=== PATIENT | female | born 1955 | race Caucasian/White ===

== ENCOUNTER → 2018-06-08 07:04 | Outpatient (CLI) | payer OTHER, SELFPAY | DX: Z00.00 Encounter for general adult medical examination without abnormal findings (principal) ==

== ENCOUNTER → 2018-06-19 08:52 | Outpatient (CLI) | payer OTHER, SELFPAY ==
[2018-06-19 10:36] LABS: Absolute Lymphocyte Count 1.66 X10^3/ul (0.83-4.51); Absolute Neutrophil Count 3.1 X10^3/uL (2.0-7.7); Basophil# 0.01 X10^3/uL; Basophil% 0.2 % (0-1); Eosinophil# 0.05 X10^3/uL; Eosinophils% 0.9 % (0-5); Hematocrit 42.9 % (37-47); Lymphocyte # 1.66 X10^3/ul (4.0); Mean Corp Hgb Conc 32.6 g/gl (32-36); Mean Corpuscular Hgb 32.9 pg (27.0-32.0); Mean Corpuscular Volume 100.7 fL (81-99); Mean Platelet Vol. 11.6 fl (6.2-12.0); Monocyte# 0.53 X10^3/uL; Monocyte% 9.9 % (0-10); Neutrophil % 57.8 % (47-70); Platelet Count 221 K/mm3 (150-450); RBC Distribution Width CV 12.3 % (11.6-14.6); RBC Distribution Width SD 45.1 fl (35.1-43.9); Red Blood Count 4.26 M/mm3 (4.2-5.4); White Blood Count 5.4 K/mm3 (4.4-11.0)
[2018-06-19 10:38] LABS: POSITIVE COUNT NO; POSITIVE DIFFERENTIAL NO; POSITIVE MORPHOLOGY NO
[2018-06-19 10:55] LABS: Hemoglobin A1c 5.2 % (4.2-6.3)
[2018-06-19 11:09] LABS: Vitamin D,25 Hydroxy 34.6 ng/mL (29.95-100.01)
[2018-06-19 11:13] LABS: ALB/GLOB Ratio 1.2 RATIO (0.9-2.4); AST(SGOT) 20 U/L (15-37); Alanine Aminotransfer ALT/SGPT 32 U/L (13-56); Albumin, Serum 3.6 g/dL (3.2-5.0); Alkaline Phosphatase 76 U/L (45-117); Anion Gap 8 (5-15); BUN 17 mg/dL (7-18); BUN/Creat Ratio 29.9 RATIO (10-20); Calcium,Total 9.3 mg/dL (8.5-10.1); Chloride 108 mmol/L (98-107); Creatinine, Serum 0.57 mg/dL (0.55-1.02); EST Glomerular Filtration Rate 114 mL/min (>60); Est Glom Filt Rate - Afr Amer 137 mL/min (>60); Free T3 3.9 pg/mL (2.18-3.98); Globulin 3.1 g/dL (2.2-4.2); Glucose 93 mg/dL (74-106); Phosphorus 3.1 mg/dL (2.5-4.9); Potassium 4.2 mmol/L (3.5-5.1); Protein, Total 6.7 g/dL (6.4-8.2); Sodium Level 142 mmol/L (136-145); T4 Free Direct 0.86 ng/dL (0.76-1.46); Thyroid Stim Hormone (TSH) 0.25 uIU/mL (0.358-3.74)
[2018-06-21 15:47] LABS: Vitamin D 1,25-Dihydroxy 52.4 pg/mL (19.9-79.3)
[2018-06-25 14:29] LABS: T3 Reverse 16.2 ng/dL (9.2-24.1)
== END ==
DX: Q07.9 Congenital malformation of nervous system, unspecified (principal); E88.9 Metabolic disorder, unspecified; E03.9 Hypothyroidism, unspecified; E55.9 Vitamin D deficiency, unspecified; R73.09 Other abnormal glucose; T56.94XA Toxic effect of unspecified metal, undetermined, initial encounter
CPT/HCPCS: 36415; 80053; 82306; 82652; 83036; 83735; 84100; 84439; 84443; 84481; 84482; 85025

== ENCOUNTER → 2018-08-15 08:25 | Outpatient (CLI) | payer OTHER, SELFPAY ==
[2018-08-15 08:51] VITALS: BP 122/75; PULSE 68; RESP 16; TEMP 36.4; O2SAT 96; BMI 27.3
--- OUTSIDE RECORDS SUMMARY | 2018-10-01 01:25 | XMS RPT_ITS ---
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 [R53.83] INVALID FOR* Vitamin D deficiency [E55.9] INVALID FOR* Rectal itching [L29.0] INVALID FOR* Sleep disturbance [G47.9] INVALID FOR* Other instructions from your clinician: LIFESTYLE PRESCRIPTION Functional Nutrition: Per CFM RD Sleep: No chg Exercise Prescription: no chg Stress Management: HEART MATH: Heart Rate Variability BioFeedback Tool 1. Get one of the heart math books off [employer] that fits your 'go to emotion' - Heart Math Anger, Anxiety, Stress, Depression, or PTSD. GET THE BOOK! Not the other stuff(colleen) Read beginning and understand why you are doing heart math and jump to the exercises. Then you can read the in between. --->5 minutes three times a day is more effective than 15 minutes in one sitting. Consider scheduling with our Health Hand Candy Cutter for a phone or virtual visit for accountability, goal setting and help with behavior change lead the next 6-8 weeks to be successful with your goals. [phone]. Consider purchasing the DVD set and going through the Dynamic Neural Retraining System (Neuroplasticity-based Therapy) at [facility]. DVDs $270s Book $25 or on [employer] $18, No orders of the defined types were placed in this encounter. Additional Recommendations Today's plan - Trial of Progesterone, Estradiol (get mammogram) Has IV port for ABX (feels it is helping slurring voice and lifting her) Future:Must have binders gordy/sacch before BEGS/nystatin Must meditate twice A day Next visit - address mold? gordy then do Argentyn ???Beyond Balance Tox-ease ??add ?glutamine Future? Start BEGS and nystatin nasal spray, 23ANDme, ?BHRT ? Treatments: (binders-->argentyn nasal spray 1 spray BID-->BEGS (nasal biofilm) ---->antifungal nasal spray (nystatin, keto, or AMB)-->NAC(250-500mg oral QD or BID)-->oral antifungal(xxxguiee243,000 u orally, 1-4x a day, diflucan 100mg once every OTHER week)?-->?oral biofilm buster Instructions AND Resources Return 10 weeks with me (last week Oct and 1st week November) Follow- up: Call frequently for cancelations to come in the week I have recommended. Take the appointment given at the desk in case this approach does not work for you. Prescriptions ordered this encounter Disp Refills Start End BENZONATATE 100 MG CAPSULE 21 c* 0 09/04/2018 Route: ORAL Sig: Take 1 capsule by mouth three times daily as needed for Cough. ALBUTEROL SULFATE HFA 90 MCG/ACTUATI* 1 In* 0 09/04/2018 Route: INHALATION Sig: Inhale 2 Puffs as instructed every 4 hours as needed. Encounter Status:Closed by SARA CHIN on 09/04/18 INTERVENTIONAL RADIOLOGY Observed: 08/26/2018 Status: F Source: [facility] PROGRESS NOTE 12:08 PM [facility] RE[facility] PT return for 10 day post medport placement check Pt ambulate to room w/ walker, slow and steady- present Right chest medport- band aid in place, per pt home care nurse out to house this morning to de access port, placed band aid pt has 1 steri and undissolved sutures to remove. Steri and suture removed w/out difficulty. pt does have ecchymosis and mild skin excoriation. denies any pain to site. Site left open to air per pt request. Stable, ambulate back off unit w/ walker and CBC W/DIFF, AUTOMATED Collected: 08/19/2018 Status: F Source: [place] 10:15 AM [facility] REPOSITORY TYPE CODE TESTS RESULT OUT OF RANGE REFERENCE UNITS LAB L100.1000 4.4-11.0 K/mm3 Normal WBC 4.9 LAB L100.1200 4.2-5.4 M/mm3 Low RBC 4.19 LAB L100.1300 12.0-15.0 g/dl Normal HGB 13.3 LAB L100.1400 37-47 % Normal HCT 41.3 LAB L100.1500 81-99 fL Normal MCV 98.6 LAB L100.1600 27.0-32.0 pg Normal MCH 31.7 LAB L100.1700 32-36 g/gl Normal MCHC 32.2 LAB L100.1810 11.6-14.6 % Normal RDW CV 13.0 LAB L100.1820 35.1-43.9 fl High RDW SD 47.2 LAB L100.1900 150-450 K/mm3 Normal PLT 224 LAB L100.2000 6.2-12.0 fl Normal MPV 11.3 LAB L100.2100 47-70 % Normal NEUT% 56.2 LAB L100.2200 19-41 % Normal LY% 32.9 LAB L100.2300 0-10 % Normal MONO% 7.3 LAB L100.2400 0-5 % Normal EO% 3.2 LAB L100.2500 0-1 % Normal BASO% 0.4 LAB L100.2550 0.0-0.9 % Normal IM GRAN % 0.000 Result Comment: IG% - Immature Granulocytes (promyelocytes, myelocytes and metamyelocytes) > 1% indicates that a LEFT SHIFT is Present. LAB L100.2620 2.0-7.7 X10 3/uL Normal Absolute Neut 2.8 LAB L100.2720 0.83-4.51 X10 3/ul Normal Absolute Lymph 1.62 Performed By: #### L100.0100 #### [facility] [address] [place], [address] COMPREHENSIVE METABOLIC Collected: 08/19/2018 Status: F Source: [facility] 10:15 AM [facility] REPOSITORY TYPE CODE TESTS RESULT OUT OF RANGE REFERENCE UNITS LAB L501.0100 74-106 mg/dL High GLU 111 Result Comment: Fasting Glucose result from 100 to 125 mg/dL suggests IMPAIRED HOMEOSTASIS per A.D.A. criteria. Please note revised GLUCOSE reference range effective 2017. LAB L501.1000 7-18 mg/dL Normal BUN 14 LAB L501.1100 0.55-1.02 mg/dL Low CREAT,SERUM 0.46 Result Comment: The validity of the calculated GFR AND GFRAA in patients over 70 years has not been determined. Clinical correlation is essential. LAB L501.1110 >60 mL/min Normal EST GFR 147 Result Comment: Non- GFR Calc LAB L501.1115 >60 mL/min Normal EST GFR - AA 178 Result Comment: GFR Calc LAB L501.1300 10-20 RATIO High BUN/CRE 30.8 LAB L501.1500 6.4-8.2 g/dL T Normal PROT 6.7 LAB L501.1800 3.2-5.0 g/dL Normal ALB 3.6 LAB L501.1950 2.2-4.2 g/dL Normal GLOB 3.1 LAB L501.2000 0.9-2.4 RATIO Normal A/G 1.2 LAB L501.2200 8.5-10.1 mg/dL CA Normal 9.2 LAB L501.4100 15-37 U/L Normal AST 26 LAB L501.4305 45-117 U/L Normal ALK P 79 LAB L501.4405 13-56 U/L Normal ALT 43 LAB L501.4600 0.20-1.00 mg/dL T Normal BILI 0.60 LAB L501.5300 136-145 mmol/L NA Normal 144 LAB L501.5600 3.5-5.1 mmol/L K Normal 3.7 LAB L501.5900 98-107 mmol/L High CL 109 LAB L501.6100 21.0-32.0 mmol/L Normal CO2 27.0 LAB L501.6200 5-15 Normal GAP 8 Performed By: #### L500.4050 #### [facility] [address] [place], [address] IR TUNNELED CENTRAL Observed: 08/15/2018 Status: F Source: [facility] 9:05 AM [facility] UNDER ULTRASOUND AND FLUOROSCOPIC GUIDANCE CLINICAL INDICATION: Lyme disease. PROCEDURE: The procedure, risk and benefits were described to the patient at length prior to informed consent being obtained. Screening for conscious sedation did not demonstrate contraindication. Pulse oximetry, vital signs and EKG monitoring was utilized and monitored throughout the procedure by myself and the radiology staff nurse. Dr. Ryan Wick administered conscious sedation in the form of 50 mcg of fentanyl and 1 mg of Versed was given during the procedure as mild conscious sedation. Preprocedure antibiotic was given After all patient's questions were answered, the patient was placed in the supine position on the angiographic table. The right side of the neck and upper chest was marked, prepped and draped the usual sterile fashion. Maximal sterile barrier technique was utilized including cap, mask, sterile gown, gloves and full body draped. One percent lidocaine without epinephrine was instilled at the superficial and deep tissue layers for comfort. Ultrasound evaluation of the RIGHT internal jugular vein was performed and shows patent and normal right internal jugular vein. Utilizing ultrasound guidance with sterile probe cover and sterile gel, access into the right internal jugular vein was carried out. Safe access was gained with a micropuncture needle and maintained with a cope guidewire. After confirmation of the position of the needle with ultrasound within the central circulation, as shown in the static ultrasound image obtained during the procedure, a [place] guidewire was advanced into the central circulatory system without difficulty. The needle was exchanged by a 5-Faroese dilator. At this point, additional local anesthesia was injected in the anterior right upper chest. A skin incision was made at the level of the second intercostal mid-clavicular line and utilizing sharp, blunt dissection and electrocautery, a pocket was created in the subcutaneous tissues anterior to the pectoralis fascia. Hemostasis was maintained during the entire procedure with electrocautery. Utilizing a metal tunneler, a 8.5 Faroese catheter was tunneled and advanced from the anterior chest pocket to the venous access previously made. The port was placed into the pocket and the skin was sutured by planes with absorbable suture material. The dilator and the [place] guidewire were removed and exchanged for a peel-away sheath and J-wire. After progressive dilatation of the access a 10-Faroese dilator, a valved peel-away sheath was then advanced over the guidewire. After removing the guide wire and the dilator, the tunneled catheter was advanced centrally with the tip at the superior vena cava atrial junction. The tip of the catheter was placed in the proximal superior vena cava as seen in the static fluoroscopic view obtained at the end of the procedure. The skin incisions were upheld with Steri-Strips and sterilely covered. At the end of the procedure, the port was accessed and easily aspirated and flushed. The MediPort was then loaded with with heparin solution. The patient tolerated the procedure very well without any immediate complications and was subsequently taken to the recovery area IMPRESSION: Normal right internal jugular on ultrasound. Successful ultrasound and fluoroscopic guided placement of a 8 Faroese X 18 cm low profile power ProFuse port and tunnel catheter. PROCEDURES PERFORMED: Conscious sedation 30 minutes Ultrasound evaluation of right internal jugular vein. Ultrasound guided venous access. Tunneling and placement of Mediport and catheter under fluoroscopy. Technologist: TALAT Dictated By: GABE GERARDO PA-C Signed By: GABE GERARDO PA-C Signed Out: 08/15/18 09:03:36 CONSULT REPORT Observed: 08/14/2018 Status: F Source: [facility] 9:10 AM [facility] Patient: SANAM HUDSON Age: 62 years Sex: Female : 1955 Associated Diagnoses: None Author: GABE GERARDO PA-C Basic Information Referral source: LILLY LIVINGSTON MD, Not self. History limitation: None. Lyme disease Chief Complaint Sanam is a nice 62-year-old female who is been referred today for insertion of MediPort to assist in her ongoing treatment for Lyme disease. Sanam has been on oral medications under the direction of Dr Yves Livingston but as of late, has noted significant gastritis. History of Present Illness Synopsis: As mentioned above Location: As mentioned above Duration: Ongoing problem Quality: Not applicable Severity: 0/10 pain today Mitigating and exacerbating factors: Suspected tick bite Review of Systems Constitutional: Negative except as documented in history of present illness. Eye: Negative except as documented in history of present illness. Ear/Nose/Mouth/Throat: Negative except as documented in history of present illness. Respiratory: Negative except as documented in history of present illness. Cardiovascular: Negative except as documented in history of present illness. Gastrointestinal: Negative except as documented in history of present illness. Genitourinary: Negative except as documented in history of present illness. Hematology/Lymphatics: Negative except as documented in history of present illness. Endocrine: Negative except as documented in history of present illness. Immunologic: Negative except as documented in history of present illness. Musculoskeletal: Negative except as documented in history of present illness. Integumentary: Negative except as documented in history of present illness. Neurologic: Negative except as documented in history of present illness. Health Status Allergies: Allergies (1) Active Reaction TheraTears Contact Lens redness ophthalmic solution Histories Past Medical History: Lyme disease, hypothyroidism Past Surgical History: Complete thyroidectomy, x1, cholecystectomy, bladder sling Anesthesia History: No anesthetic problems reported Family History: Reviewed but is noncontributory Social History: Denies smoking or drinking Physical Examination VS/Measurements Vital Signs (last 24 hrs) Last Charted Temp Oral 36.9 degC (AUG 14:) Resp Rate 16 br/min (AUG 14:) SBP 131 mmHg (AUG 14) DBP 81 mmHg (AUG 14) SpO2 99 % (AUG 14) Weight 82.2 kg (AUG 14:30) General: Alert and oriented, No acute distress. Eye: Pupils are equal, round and reactive to light, Extraocular movements are intact, Normal conjunctiva, Vision unchanged. Respiratory: Lungs are clear to auscultation, Respirations are non-labored, Breath sounds are equal, Symmetrical chest wall expansion, No chest wall tenderness. Cardiovascular: Normal rate, Regular rhythm, No murmur, No gallop, Good pulses equal in all extremities, Normal peripheral perfusion, No edema. Gastrointestinal: Soft, Non-tender, Non-distended, Normal bowel sounds, No organomegaly. Integumentary: Warm, Dry, [place]. Neurologic: Alert, Oriented, Normal sensory, Normal motor function, No focal deficits, Cranial Nerves II-XII are grossly intact. Psychiatric: Cooperative, Appropriate mood & affect, Normal judgment. Review / Management Results review: Labs (Last four charted values) WBC 5.4 (AUG 14) Hgb 14.0 (AUG 14) Hct 41.6 (AUG 14) Plt 202 (AUG 14) INR 1.1 (AUG 14) . Impression and Plan Diagnosis: Lyme disease. Significant gastritis secondary to the oral Lyme treatment regimen Plan: The patient will undergo to MediPort insertion today. The procedure, risk and benefits are described to her at length prior to informed consent being obtained. All questions were answered. The port will be fully functional at the conclusion of the procedure and may be used at any time. Postprocedure restrictions were discussed PT INR Collected: 08/14/2018 Status: F Source: [facility] 8:25 AM [facility] REPOSITORY TYPE CODE TESTS RESULT OUT OF RANGE REFERENCE UNITS LAB 8208(LOINC) Normal INR 1.1 Result Comment: Normal reference range for INR on patients not on anticoagulant therapy: 0.9-1.1. General therapeutic range for patients on anticoagulant therapy: 2.0-3.5. LAB 2150506(LOINC) 9.7-12.7 seconds Normal Protime Patient 11.9 Performed By: #### [id number], [id number] #### [facility] Services [address] [place] [address] Marketing Communications Manager: Carlin Jade MD HEMO Collected: 08/14/2018 Status: F Source: [facility] 8:24 AM [facility] REPOSITORY TYPE CODE TESTS RESULT OUT OF RANGE REFERENCE UNITS LAB 8129 36.0-46.0 % Normal HCT 41.6 LAB 8340 7.4-10.4 fL Normal MPV 9.2 LAB 8313 27.0-34.0 pg Normal MCH 33.1 LAB 3575870(AUDRA [place]) Normal Instr WBC 5.4 LAB 8618 11.5-14.5 Normal RDW 13.4 LAB 8611 4.20-5.40 x10 Normal RBC 4.23 Result Comment: Note: RBC morphology is normal unless otherwise stated. Evaluation performed only if differential is requested. LAB 45366185 /100WBC Normal Nucleated RBC 0 LAB 8986 4.5-11. x10 Normal 0 WBC 5.4 LAB 8314 32.0-37 g/dL Normal .0 MCHC 33.7 LAB 8153 12.0-16 g/dL Normal .0 HGB 14.0 LAB 4782994 150-450 x1000 Normal Platelet 202 LAB 8315 80.0-10 fL Normal 0.0 MCV 98.3 LAB 6059498(LOINC) Normal DIFF? No Performed By: #### [id number], [id number], [id number] #### [facility] [address] [place] [address] Marketing Communications Manager: Carlin Jade MD AUTO DIFF Collected: 08/14/2018 Status: F Source: [facility] 8:24 AM [facility] REPOSITORY TYPE CODE TESTS RESULT OUT OF REFERENCE UNITS RANGE LAB 4504109 1.20-4.80 x1000 Lymph Normal Count 1.48 LAB 7337042 % Basos % Normal 0.6 LAB 7195428 0.00-0.20 x1000 Baso Normal Count 0.03 LAB 3630949 0.10-1.00 x1000 [place] Normal Count 0.45 LAB 8275303 % [place] % Normal 8.3 LAB 9061289 % Normal Neutrophil % 62.4 LAB 9268168 1.40-8.80 x1000 Normal Neutrophil Count 3.37 (ANC) LAB 3738306 0.00-0.50 x1000 Eos Normal Count 0.06 LAB 8103436 % Eosin % Normal 1.2 LAB 1614121 % Lymph % Normal 27.5 Performed By: #### [id number], [id number] #### [facility] [address] [place] [address] Marketing Communications Manager: Carlin Jade MD CBC W/DIFF, AUTOMATED Collected: 06/19/2018 Status: F Source: [place] 9:00 AM [facility] REPOSITORY TYPE CODE TESTS RESULT OUT OF RANGE REFERENCE UNITS LAB L100.1000 4.4-11.0 K/mm3 Normal WBC 5.4 LAB L100.1200 4.2-5.4 M/mm3 Normal RBC 4.26 LAB L100.1300 12.0-15.0 g/dl Normal HGB 14.0 LAB L100.1400 37-47 % Normal HCT 42.9 LAB L100.1500 81-99 fL High MCV 100.7 LAB L100.1600 27.0-32.0 pg High MCH 32.9 LAB L100.1700 32-36 g/gl Normal MCHC 32.6 LAB L100.1810 11.6-14.6 % Normal RDW CV 12.3 LAB L100.1820 35.1-43.9 fl High RDW SD 45.1 LAB L100.1900 150-450 K/mm3 Normal PLT 221 LAB L100.2000 6.2-12.0 fl Normal MPV 11.6 LAB L100.2100 47-70 % Normal NEUT% 57.8 LAB L100.2200 19-41 % Normal LY% 31.0 LAB L100.2300 0-10 % Normal MONO% 9.9 LAB L100.2400 0-5 % Normal EO% 0.9 LAB L100.2500 0-1 % Normal BASO% 0.2 LAB L100.2550 0.0-0.9 % Normal IM GRAN % 0.200 Result Comment: IG% - Immature Granulocytes (promyelocytes, myelocytes and metamyelocytes) > 1% indicates that a LEFT SHIFT is Present. LAB L100.2620 2.0-7.7 X10 3/uL Normal Absolute Neut 3.1 LAB L100.2720 0.83-4.51 X10 3/ul Normal Absolute Lymph 1.66 Performed By: #### L100.0100 #### [facility] [address] [place], [place], [id number] HEMOGLOBIN A1C Collected: 06/19/2018 Status: F Source: [place] 9:00 AM [facility] REPOSITORY TYPE CODE TESTS RESULT OUT OF RANGE REFERENCE UNITS LAB L501.9985 4.2-6.3 % Normal HGB A1C 5.2 Performed By: #### L501.9985 #### [facility] [address] [place], [address] VITAMIN D,25 HYDROXY Collected: 06/19/2018 Status: F Source: [place] 9:00 AM [facility] REPOSITORY TYPE CODE TESTS RESULT OUT OF RANGE REFERENCE UNITS LAB L506.1000 29.95-100.01 ng/mL Normal Vitamin D 34.6 25-OH Result Comment: Vitamin D 25(OH) Status Range Deficiency <20 ng/mL (50nmol/L) Insuffciency 20 - 30 ng/mL (50 - 75 nmol/L) Sufficiency 30 - 100 ng/mL (75 - 250 nmol/L) Toxicity >100 ng/mL (>250 nmol/L) Performed By: #### L506.1000 #### [facility] [address] [place], [address] COMPREHENSIVE METABOLIC Collected: 06/19/2018 Status: F Source: [place] [facility] 9:00 AM [facility] REPOSITORY TYPE CODE TESTS RESULT OUT OF RANGE REFERENCE UNITS LAB L501.0100 74-106 mg/dL Normal GLU 93 Result Comment: Please note revised GLUCOSE reference range effective 2017. LAB L501.1000 7-18 mg/dL Normal BUN 17 LAB L501.1100 0.55-1.02 mg/dL Normal CREAT,SERUM 0.57 Result Comment: The validity of the calculated GFR AND GFRAA in patients over 70 years has not been determined. Clinical correlation is essential. LAB L501.1110 >60 mL/min Normal EST GFR 114 Result Comment: Non- GFR Calc LAB L501.1115 >60 mL/min Normal EST GFR - AA 137 Result Comment: GFR Calc LAB L501.1300 10-20 RATIO High BUN/CRE 29.9 LAB L501.1500 6.4-8.2 g/dL T Normal PROT 6.7 LAB L501.1800 3.2-5.0 g/dL Normal ALB 3.6 LAB L501.1950 2.2-4.2 g/dL Normal GLOB 3.1 LAB L501.2000 0.9-2.4 RATIO Normal A/G 1.2 LAB L501.2200 8.5-10.1 mg/dL CA Normal 9.3 LAB L501.4100 15-37 U/L Normal AST 20 LAB L501.4305 45-117 U/L Normal ALK P 76 LAB L501.4405 13-56 U/L Normal ALT 32 LAB L501.4600 0.20-1.00 mg/dL T Normal BILI 0.60 LAB L501.5300 136-145 mmol/L NA Normal 142 LAB L501.5600 3.5-5.1 mmol/L K Normal 4.2 LAB L501.5900 98-107 mmol/L High CL 108 LAB L501.6100 21.0-32.0 mmol/L Normal CO2 26.0 LAB L501.6200 5-15 Normal GAP 8 Performed By: #### L500.4050, L501.2300, L501.5200, L501.61315, L501.9520, L506.0400 #### [facility] [address] [place], [place], [address] PHOSPHORUS Collected: 06/19/2018 Status: F Source: [place] 9:00 AM [facility] REPOSITORY TYPE CODE TESTS RESULT OUT OF RANGE REFERENCE UNITS LAB L501.2300 2.5-4.9 mg/dL Normal PHOS 3.1 Performed By: #### L500.4050, L501.2300, L501.5200, L501.35073, L501.9520, L506.0400 #### [facility] [address] [place], [place], [id number] MAGNESIUM Collected: 06/19/2018 Status: F Source: [place] 9:00 AM [facility] REPOSITORY TYPE CODE TESTS RESULT OUT OF RANGE REFERENCE UNITS LAB L501.5200 1.6-2.6 mg/dL Normal MG 2.0 Performed By: #### L500.4050, L501.2300, L501.5200, L501.52374, L501.9520, L506.0400 #### [facility] [address] [facility] [place], [place], [address] FREE T3 Collected: 06/19/2018 Status: F Source: [place] 9:00 AM [facility] REPOSITORY TYPE CODE TESTS RESULT OUT OF RANGE REFERENCE UNITS LAB L501.24259 2.18-3.98 pg/mL Normal FREE T3 3.9 Performed By: #### L500.4050, L501.2300, L501.5200, L501.00057, L501.9520, L506.0400 #### [facility] [address] [place], [address] THYROID STIM HORMONE Collected: 06/19/2018 Status: F Source: [place] ([facility]) 9:00 AM [facility] REPOSITORY TYPE CODE TESTS RESULT OUT OF RANGE REFERENCE UNITS LAB L501.9520 0.358-3.74 uIU/mL Low TSH 0.25 Performed By: #### L500.4050, L501.2300, L501.5200, L501.72336, L501.9520, L506.0400 #### [facility] [address] [facility], [address] T4 FREE DIRECT Collected: 06/19/2018 Status: F Source: [place] 9:00 AM [facility] REPOSITORY TYPE CODE TESTS RESULT OUT OF RANGE REFERENCE UNITS LAB L506.0400 0.76-1.46 ng/dL Normal T4 FREE 0.86 DIRECT Performed By: #### L500.4050, L501.2300, L501.5200, L501.32220, L501.9520, L506.0400 #### [facility] [address] [facility], [address] VITAMIN D 1,25-DIHYDROXY Collected: 06/19/2018 Status: F Source: [place] 9:00 AM [facility] REPOSITORY TYPE CODE TESTS RESULT OUT OF RANGE REFERENCE UNITS LAB L3300.0960 19.9-79.3 pg/mL Normal VITD 1,25 52.4 432[address] Result Comment: Performed at: - [facility] [id number] Fire Control Technician B: Jose Cao MD, Phone: [phone] Performed By: #### L3300.0960 #### [facility] (refer to report for specific site) refer to report for address and phone number T3 REVERSE Collected: 06/19/2018 Status: F Source: [place] 9:00 AM [facility] REPOSITORY Order Comment: Has Patient had Radioactive Injection for X-ray?: N TYPE CODE TESTS RESULT OUT OF RANGE REFERENCE UNITS LAB L3300.7100 9.2-24.1 ng/dL Normal T3 REVERSE 16.2 Result Comment: Performed at: [facility] [id number] Fire Control Technician B: Jose Cao MD, Phone: [phone] Performed By: #### L3300.7100 #### [facility] (refer to report for specific site) refer to report for address and phone number MISCELLANEOUS LAB Collected: 06/19/2018 Status: F Source: [place] PROCED[facility] 9:00 AM [facility] REPOSITORY Order Comment: Test(s) Ordered: [facility] DATA TYPE CODE TESTS RESULT OUT OF RANGE REFERENCE UNITS LAB L801.[address] [facility] LAB TEST Result Comment: Sent directly to testing facility per ordering physician. @ 07/23/18 1543 MYOUNG Performed By: #### [id number] #### [facility] [address] [place], [address] CNPN Observed: 06/13/2018 Status: COMPLETED Source: [place] 12:00 AM [facility] REPOSITORY Telephone (VERONICA) SANAM HUDSON ([id number]) 1955 F Date Time Provider Department 06/13/18 CHRISTIANO PEPE During your visit today, we recorded the following information about you: Irasema Torres 06/13/2018 12:14 PM Signed Patient is on the wait list, message states she is requesting an order for a mammogram. Please advise. Venita Gillis APRN.ELECTRICAL EQUIPMENT ASSEMBLER 06/13/2018 12:20 PM Signed Patient has not seen PCP since 2016. Please schedule f/u appt. Orders placed. Please assist in scheduling. Irasema Torres 06/13/2018 12:33 PM Signed Left message for patient to call back office. Please assist with scheduling. Irasema Torres 06/17/2018 1:16 PM Signed Patient has established with a new PCP. Allergies As of Date: 06/13/2018 Noted Allergy Reaction MALARONE (ATOVAQUONE-PROGUANIL) 09/10/2015 4 - Hives THIMERSOL (THIMEROSAL) 04/26/2009 Comments: Makes eyes red- thimerosal in contacts Date Reviewed: 12/11/2017 Reviewed by: Alejandra Arevalo - Fully Assessed Reason for Visit: mammogram [Other] Primary Visit Diagnosis:Encounter for screening mammogram for breast cancer [Z12.31] Order(s):[facility] SCREENING [[id number]] Order #: [id number] FUTURE Prescriptions as of 06/13/2018 Sig: COMPOUNDED PRESCRIPTION Bactroban(Mupirocin) 0.2% Antonio* COMPOUNDED PRESCRIPTION dissolve 1 cap (50,000 units)* ESTRADIOL 0.0375 MG/24 HR LISETTE* Apply 1 Patch as directed twi* PROGESTERONE MICRONIZED 100 M* Take 1 capsule by mouth daily* ARMOUR THYROID 90 MG TABLET TAKE ONE TABLET BY MOUTH ONCE* ARMOUR THYROID 90 MG TABLET Take 1 tablet by mouth once d* AMOXICILLIN 875 MG-POTASSIUM * Take 2 tablets by mouth twice* ASCORBIC ACID (VITAMIN C) ORA* Take by mouth. B COMPLEX VITAMINS ORAL Take by mouth. BLACK COHOSH ROOT EXTRACT 40 * Take 40 mg by mouth. VITAMIN D-3 ORAL Take by mouth. CHASTE TREE ORAL Take by mouth. CHOLECALCIFEROL (VITAMIN D3) * Take 2,000 Units by mouth. CLINDAMYCIN HCL 150 MG CAPSULE CLINDAMYCIN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 bacteria Bacillus species 4+, Klebsiella pneumonia 4+ both sensitive to Bactrim Plan: Ox bile acids, Biotagen, Therbiotic Factor 4, Bactrim for 10 days with Saccharomyces B ?? 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 ?? Energy Production Motor neuron disorder - leg weakness Fatigue - better with B12 shots Foot/calf cramps ?? Detoxification Function WOLFF Many amalgams 2017 KOI repeat compared to November 2016 after 13 IV EDTA?lead dropped from 27-->10.2, mercury increased from 14.36 -->?19.73 (patient felt good on EDTA and rash cleared) Tx: Dr. Damon w/ EDTA IV ? Hormonal Assessment Insomnia - hot flash 5am Hot flashes - black cohosh helps the intensity Hypothyroid dt cancer - brittle nails Postmenopausal - Address w/ Dr. Livingston ?? Structural Assessment OA knees Swollen ankles LIFESTYLE PRESCRIPTION Functional Nutrition: Per CFM RD Sleep: No chg Exercise Prescription: no chg Stress Management: No chg Medication orders placed this encounter BEGs nasal spray Sig: Bactroban(Mupirocin) 0.2% Edetate Disodium (EDTA) 0.1%, Gentamicin 0.25%Adults: Two sprays to each nostril 2 times a dayBlow nose then breathe and spray each nostril. If ear ringing occurs - [facility] Dispense: 1 Each Refill: 1 Estradiol 0.0375 mg/24 hr Sig: Apply 1 Patch as directed twice a week. Dispense: 8 Patch Refill: 2 Nystatin 50,000 Unit (atomized) nasal spray --> ([facility] will call you) Sig: dissolve 1 cap (50,000 units) in 3 ml and spray 1.5 ml in each nostril 2 times a day Dispense: 60 capsule Refill: 2 progesterone micronized (PROMETRIUM) 100 mg capsule Sig: Take 1 capsule by mouth daily at bedtime. Dispense: 30 capsule Refill: 2 Additional Recommendations Today's plan - Trial of Progesterone, Estradiol (get mammogram) Trial of prilosec for 4 days, if helps cough and voice. If helps then use GI revive 2 TBLSP twice a day for 2 months. Will start gordy trial for mold exposure. Start BEGS and nystatin nasal spray ON NAD nasal spray - not helping much LDN helped after a month which resolved. Next visit?- ? address mold? Order BEGs and nystatin nasal spray ???Beyond Balance Tox-ease ??add ?glutamine Future? 23ANDme, ?BHRT Treatments: (binders-->argentyn nasal spray 1 spray BID-->BEGS (nasal biofilm) ---->antifungal nasal spray (nystatin, keto, or AMB)-->NAC(250-500mg oral QD or BID)-->oral antifungal(,000 u orally, 1-4x a day, diflucan 100mg once every OTHER week)?-->?oral biofilm buster Instructions AND Resources Return 12 weeks with me Follow- up: Call frequently for cancelations to come in the week I have recommended. Take the appointment given at the desk in case this approach does not work for you. Do labs 1 week before appointment (do not take hormones the night before or the morning of the blood test, take thyroid medication AFTER the blood test). Follow- up: Call frequently for cancelations to come in the week I have recommended. Take the appointment given at the desk in case this approach does not work for you. Time with patient: 35 minutes spent with the patient >50% counseling regarding diagnoses above. Parts of this note have been dictated. Sara Chin DO CNOV Observed: 04/22/2018 Status: COMPLETED Source: [place] 11:45 AM [facility] [place] RE[facility] Office Visit ([facility]) SANAM HUDSON ([id number]) 1955 F Date Time Provider Department 04/22/18 11:45 AM SARA CHIN During your visit today, we recorded the following information about you: Sara Chin DO 04/22/2018 4:47 PM Signed Follow-up Visit Patient: Sanam Hudson There is no height or weight on file to calculate BMI. RMR can't be calculated - Weight unrecorded in last 120 days. Waist measurement: No waist measurement recorded. BP: ALLERGIES Allergen Reactions - Malarone [Atovaquon* Hives - Thimersol [Thimeros* Makes eyes red- thimerosal in contacts Current Outpatient Prescriptions on File Prior to Visit: ARMOUR THYROID 90 mg tab TAKE ONE TABLET BY MOUTH ONCE DAILY 20 MINUTES BEFORE BREAKFAST ARMOUR THYROID 90 mg tab Take 1 tablet by mouth once daily. 20 minutes before breakfast amoxicillin-clavulanic acid (AUGMENTIN) 875-125 mg per tablet Take 2 tablets by mouth twice daily. Ascorbic Acid powd Take by mouth. vitamin B complex (B COMPLEX VITAMINS ORAL) Take by mouth. Black Cohosh 40 mg cap Take 40 mg by mouth. calcium carbonate/vitamin D3 (VITAMIN D-3 ORAL) Take by mouth. CHASTE TREE ORAL Take by mouth. Cholecalciferol, Vitamin D3, 2,000 unit cap Take 2,000 Units by mouth. clindamycin (CLEOCIN) 150 mg capsule clindamycin (CLEOCIN) 300 mg capsule coenzyme Q10 (COENZYME Q-10) 100 mg cap capsule Take 200 mg by mouth. ribose, bulk, 100 % powd Take 5,000 mg by mouth. fluconazole (DIFLUCAN) 200 mg tablet Fish Oil-[place]-3 Fatty Acids 300-1,000 mg cap Take by mouth. oseltamivir (TAMIFLU) 75 mg capsule TAKE ONE CAPSULE BY MOUTH TWICE DAILY FOR 5 DAYS valACYclovir (VALTREX) 1 gram tab doxycycline monohydrate (MONODOX) 100 mg capsule Take 100 mg by mouth. liothyronine (CYTOMEL) 5 mcg tablet Take 5 mcg by mouth. thyroid, pork, 97.5 mg tab Take 97.5 mg by mouth. Querctin and Abbie ((600mg each) [employer] [place]) take three capsules daily with meals doxycycline monohydrate (MONODOX) 100 mg capsule Take 1 capsule by mouth twice daily. Take at least 2 hrs away from probiotics. Avoid sunlight, do not lay flat for at least an hour. Stevia-Liquid Extract (Protocol for Life Balance) Take 1-4 drops as desired daily. liothyronine (CYTOMEL) 5 mcg tablet Take 1 tablet by mouth once daily. Nrf2 Activator (Xymogen) Take 4 capsules in the evening before bed. Magnesium Citrate 150mg BID Stress, blood sugar, thyroid/hormones/adrenals/sleep/energy/toxins/muscles/constipation/asthma Work up to 2-3 twice a day. - back off if loose stools UltraNutrient (Pure Encapsulations) 3BID Multi-vitamin/coq10/milk thistle/turmeric/janey/alphalipoic acid/B complex 3 capsules twice a day with meals Meriva-SR (Nathaniel) decrease inflammation/pain/gut healing Take 1-2 capsules two times daily Betaine HCL Pepsin (Pure Encapsulations) Take 1 capsule by mouth w MEALS. Sweetish Bitters Elixir 4 oz. (Concepcion Herbs) Add 60 drops to a small amount of water and take 15-20 minutes before meals NAC 600mg (Pure Encapsulations) Take 1 capsule twice daily, between meals. Succimer, Bulk, (DMSA, BULK,) 98 % powd Take 3 500mg tabs after First Morning Void. Then collect urine x 6 hours. sulfamethoxazole-trimethoprim (BACTRIM DS,SEPTRA DS) 800-160 mg per tablet Take 1 tablet by mouth twice daily. BiotaGen capsules (Klaire/Prothera) prebiotic (feeds probiotic) 4 capsules once or twice daily - if bloating decrease dose Ther-Biotic Factor 4 (Bifidobacterium Complex) (Klaire/Prothera) probiotic (FRIDGE) Take 1 capsule by mouth once daily. MEDICATION, NON-DATABASE CBD Oil 10mg twice daily Succimer, Bulk, (DMSA, BULK,) 98 % powd Take 3 500mg tabs after First Morning Void. Then collect urine x 6 hours. Magnesium Citrate 150mg BID Stress, blood sugar, thyroid/hormones/adrenals/sleep/energy/toxins/muscles/constipation/asthma Work up to 2-3 twice a day. - back off if loose stools Hepato-Thera Forte (Klaire/Prothera) Take 1 capsule by mouth three times daily. Ther-Biotic Detoxification Support (Klaire/Prothera) Take 1 capsule by mouth once daily. Saccharomyces Boulardii (Klaire/Prothera) Take 2 capsules by mouth once daily. PS 100 - 120 ct. TID (Pure Encapsulations) 3 capsules daily, in divided doses, with meals Magnesium Glycinate 120mg (BID) Work up to 2-3 twice a day. - back off if loose stools One [place] (Pure Encapsulation) Take 2 capsules by mouth daily with food. UltraNutrient (Pure Encapsulations) 3BID 3 capsules twice a day with meals thyroid, pork, (NATURE-THROID) 97.5 mg tab Take 97.5 mg by mouth once daily. No current facility-administered medications on file prior to visit. PAST MEDICAL HISTORY Diagnosis Date - Arrhythmia irregular heart rate-several yrs ago-PVC's - Esophageal reflux 05/24/2005 - Lichen sclerosus - PERS HX OF THYROID MALIGNANCY 05/24/2005 - Snoring PAST SURGICAL HISTORY Procedure Laterality Date - COLONOSCOP W/ OR W/O [facility] SPEC 2003 Colonoscopy - COLONOSCOP W/ OR W/O [facility] SPEC 10/01/14 Colonoscopy - EGD W/O [facility] SPECIMEN W/BX 03/09/06 Hiatal hernia/gastritis/esophagitis - EGD W/O OR W/BRUSH/WASH 10/01/14 EGD - LAP CHOLECYSTECT/CHOLANGIOGRAPHY 03/12/06 - PAST SURGICAL HISTORY OF 03/12/2006 transvaginal sling - REMOVAL OF OVARY/TUBE(S) 10/25/00 Salpingo-oophorectomy - REMOVAL OF SKIN TAGS -03/18/11 Ablation skin tags/ shave bx x 2 - S SLING BLADDER - THYROIDECTOMY 07/19/01 For Cancer - THYROIDECTOMY - TOTAL ABDOM HYSTERECTOMY 10/25/00 Hysterectomy, FIDE for fibroids and abnormal menstruation Social History Marital status: Spouse name: marita cota Years of education: 22 Number of children: 3 Occupational History 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 [employer] Social History Main Topics Smoking status: Never Smoker Smokeless tobacco: Never Used Alcohol use: Yes Comment: Occaisional Drug use: No Sexual activity: Yes Partners with: Male control/protection: Surgical Comment: hysterectomy Functional Medicine Timeline Name 09/24/2015 09/06/2016 11/02/2016 12/18/2016 02/26/2017 03/27/2017 04/19/2017 07/23/2017 12/11/2017 04/22/2018 PROMIS Global Health--Global Physical Health T Score 39.8 37.4 29.6 34.9 - 34.9 34.9 29.6 37.4 29.6 PROMIS Global Health--Global Mental Health T Score 56 53.3 53.3 56 - 56 56 53.3 53.3 53.3 HIT 6--Score - - - - - - - - - 64 Patient Health Questionnaire (PHQ-9)--PHQ-9 Score 4 - - - - - - - - - Patient Health Questionnaire (PHQ-9)--PHQ-2 Score 0 - - - - - - - - - Medical Symptoms Questionnaire (MSQ)--Grand Total - 35 60 44 48 75 63 59 60 76 Apr Visit- Patient goals: 1. Walking ?2. Left hand use Subjective: C/o cough more of an issue - keeping her from speaking easily. Better when she was in [place]. Had illness and Dr. Livingston felt it was related to a virus she already has. Cough is related to sense of smell, eating and talking. Currently on Doxy, augmentin (off clinda), valtrex, diflucan - since November. Fungal rashmuch better, hair is darker. hasnt done hormones, but did saw palmetto due to testosterone Thyroid med was changed to armour and TSH very high needed and increased dose - helped. December Visit- Patient goals: 1. Walking ?2. 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 Heart burn, constipation resolved with it. Hair getting darker. Cough - 1 yr (non-prd) - got a Rowenta Will be getting HBOT ? Seen by Dr. Livingston - tsted + IgG for viruses. 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 Having many amalgams removed (biologic dentist) and on his protocol (DMSA), Vit C, GSE, COQ10, minerals, probiotics, EPA, GLA + DMSA 500mg, Repeat for 2 days after procedure. He has her on high dose doxy, Augmentin for 2 months then diflucan 3 days a week. ? ? Nov?Visit-?Patient goals: ?1. Walking ?2. 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 Jock itch/abd rash was 50% better w/ diflucan and then significantly improved by 3rd IV EDTA (helped biofilm) Tearful - not better and left arm is getting weak. ?Stopped DMSA oral but on EDTA IV weekly. Has not retested, ?2 more and will have 25. Didn't get the [employer] kit done () High dose GSH made her sick for a few months, felt badly on DMSA, worse with 2 saccharomyces. ?NAC made her worse and too much ?? Questions - 1. Lymphatic massage? Letter written 2. Bump in finger (hurts) fluctates. -- see PCP, hasnt tried FSM 3. Possibility of Dr.Neil ponce? ?MTHFR SNP ? Get on Beyond Balance Tox-ease 4. ?If Lyme prognosis? Review of Systems: See MSQ Objective: not taken There were no vitals taken for this visit. Component Latest Ref Rng AND Units 03/11/2018 WBC 3.70 - 11.00 k/uL 7.08 RBC 3.90 - 5.20 m/uL 4.36 Hemoglobin 11.5 - 15.5 g/dL 14.2 Hematocrit 36.0 - 46.0 % 43.1 MCV 80.0 - 100.0 fL 98.9 MCH 26.0 - 34.0 pG 32.6 MCHC 30.5 - 36.0 g/dL 32.9 RDW-CV 11.5 - 15.0 % 15.4 (H) Platelet Count 150 - 400 k/uL 214 MPV 9.0 - 12.7 fL 11.0 Neut% % 64.0 Abs Neut (ANC) 1.45 - 7.50 k/uL 4.53 Lymph% % 27.0 Abs Lymph 1.00 - 4.00 k/uL 1.91 [place]% % 7.6 Abs [place] <0.87 k/uL 0.54 Eosin% % 1.0 Abs Eosin <0.46 k/uL 0.07 Baso% % 0.4 Abs Baso <0.11 k/uL 0.03 Protein, Total 6.3 - 8.0 g/dL 6.6 Albumin 3.9 - 4.9 g/dL 4.2 Calcium 8.5 - 10.2 mg/dL 9.3 Bilirubin, Total 0.2 - 1.3 mg/dL 0.4 Alkaline Phosphatase 32 - 117 U/L 63 AST 13 - 35 U/L 18 Glucose 74 - 99 mg/dL 99 BUN 7 - 21 mg/dL 16 Creatinine 0.58 - 0.96 mg/dL 0.59 Sodium 136 - 144 mmol/L 139 Potassium 3.7 - 5.1 mmol/L 4.5 Chloride 97 - 105 mmol/L 102 CO2 22 - 30 mmol/L 25 Anion Gap 9 - 18 mmol/L 12 ALT 7 - 38 U/L 21 eGFR- >60 eGFR-All Other Races . >60 Microsomal Antibody <5.6 IU/mL <1.0 Thyroglobulin Ab <14.4 IU/mL <1.0 Ammonia 11 - 51 umol/L 16 Phosphorus 2.7 - 4.8 mg/dL 3.4 Magnesium 1.7 - 2.3 mg/dL 2.2 TSH 0.400 - 5.500 uU/mL 28.790 (H) Free T3 2.3 - 4.1 pg/mL 3.1 Free T4 0.9 - 1.7 ng/dL 0.7 (L) Vitamin D 25 Hydroxy 31.0 - 80.0 ng/mL 23.1 (L) Vitamin A 0.30 - 1.20 mg/L 0.50 Reverse T3 9.0 - 27.0 ng/dL 10.4 Bioelectrical Impedance Analysis Results by [employer] Recent Results from: 09/06/16 at 10:24 AM BMI: 26.85 kg/m? General Test Result Range Phase Angle (PA) 9.2 Min: 5.8 Mean: 6.7 Max: 7.6 Basal Metabolic Rate (BMR) 1675 Min: 1172 Mean: 1327 Max: 1482 Fat AND Fat Free Mass Test Result Range Fat (lbs) 56.8 Min: 39.6 Mean: 62.2 Max: 84.8 Fat % 32 Min: 31.7 Mean: 38.3 Max: 44.9 Fat Free Mass (FFM) lbs 120.7 Min: 81.5 Mean: 95.8 Max: 110.1 Total Body Water Test Result Range TBW (lbs) 89.8 Min: 60.9 Mean: 71.7 Max: 82.5 TBW % of FFM 74.4 Min: 73.2 Mean: 74.7 Max: 76.2 Intracellular Water Test Result Range ICW (lbs) 47.3 Min: 33.1 Mean: 37.7 Max: 42.3 ICW % of FFM 39.2 Min: 38 Mean: 39.5 Max: 41 Extracellular Water Test Result Range ECW (lbs) 42.5 Min: 27.6 Mean: 34 Max: 40.4 ECW % of FFM 35.2 Min: 33.5 Mean: 35.2 Max: 36.9 Physical Exam: alert, well NAD, well groomed PREVIOUS Functional Diagnostic Assessment Querctin and Abbie ((600mg each) [employer]) Sig: take three capsules daily with meals Refill: 0 Assessment Assessment: 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 Story - bottle fed, ABX, mono, OCP expsoure to pesticides, mercury And bug bites in other countries, then stressor at work - started having motor neuron disease. Mold exposure in her work bldg Stress - full prof [facility], good repuation, Reprimanded for a good deed then had to keep working with the person who betrayed her - occurred prior to the Motor neuron disorder ?MSIDS 67 ?? Dec 2017 reviewed Oct 2017[facility] neuro Dr. Leanna ISAAC note Postmenopausal - Address w/ Dr. Livingston Cough - try Quercitin On AA powder from [facility] and NAD CIRS - was sick with gordy, On Argentyn Jul 2017 visit- reviewed [place] High dose GSH made her sick for a few months, felt badly on DMSA, worse with 2 saccharomyces C/w mold -gliotoxin gentle treatment Tx: Dr. Damon w/ EDTA IV ? ? Nutritional Assessment Nutreval Jun 2017 Most high need, high lipid peroxides/8OHDG Plan: Ultranutrient ? Digestive Function GERD improved w/diet (no sugar) Constipation - better off diflucan GI effects March 2017 - Dysbiosis Elevated fecal fat/LCF A, cluster O, phospholipids as per Very low short-chain fatty acids Commensal bacteria?18 of 23 elevated with high Lactobacillus and Escherichia coli, low bifidobacterium Additional bacteria Bacillus species 4+, Klebsiella pneumonia 4+ both sensitive to Bactrim Plan: Ox bile acids, Biotagen, Therbiotic Factor 4, Bactrim for 10 days with Saccharomyces B ?? 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 ?? Energy Production Motor neuron disorder - leg weakness Fatigue - better with B12 shots Foot/calf cramps ?? Detoxification Function WOLFF Many amalgams 2017 KOI repeat compared to November 2016 after 13 IV EDTA?lead dropped from 27-->10.2, mercury increased from 14.36 -->?19.73 (patient felt good on EDTA and rash cleared) Tx: Dr. Damon w/ EDTA IV ? Hormonal Assessment Insomnia - hot flash 5am Hot flashes - black cohosh helps the intensity Hypothyroid dt cancer - brittle nails Postmenopausal - Address w/ Dr. Livingston ?? Structural Assessment OA knees Swollen ankles LIFESTYLE PRESCRIPTION Functional Nutrition: Per CF RD Sleep: No chg Exercise Prescription: no chg Stress Management: No chg Medication orders placed this encounter BEGs nasal spray Sig: Bactroban(Mupirocin) 0.2% Edetate Disodium (EDTA) 0.1%, Gentamicin 0.25%Adults: Two sprays to each nostril 2 times a dayBlow nose then breathe and spray each nostril. If ear ringing occurs - stop nasal sprayFAXED to [facility] Dispense: 1 Each Refill: 1 Estradiol 0.0375 mg/24 hr Sig: Apply 1 Patch as directed twice a week. Dispense: 8 Patch Refill: 2 Nystatin 50,000 Unit (atomized) nasal spray --> ([facility] will call you) Sig: dissolve 1 cap (50,000 units) in 3 ml and spray 1.5 ml in each nostril 2 times a day Dispense: 60 capsule Refill: 2 progesterone micronized (PROMETRIUM) 100 mg capsule Sig: Take 1 capsule by mouth daily at bedtime. Dispense: 30 capsule Refill: 2 Additional Recommendations Today's plan - Trial of Progesterone, Estradiol (get mammogram) Trial of prilosec for 4 days, if helps cough and voice. If helps then use GI revive 2 TBLSP twice a day for 2 months. Will start gordy trial for mold exposure. Start BEGS and nystatin nasal spray ON NAD nasal spray - not helping much LDN helped after a month which resolved. Next visit?- ? address mold? Order BEGs and nystatin nasal spray ???Beyond Balance Tox-ease ??add ?glutamine Future? 23ANDme, ?BHRT Treatments: (binders-->argentyn nasal spray 1 spray BID-->BEGS (nasal biofilm) ---->antifungal nasal spray (nystatin, keto, or AMB)-->NAC(250-500mg oral QD or BID)-->oral antifungal(,000 u orally, 1-4x a day, diflucan 100mg once every OTHER week)?-->?oral biofilm buster Instructions AND Resources Return 12 weeks with me Follow- up: Call frequently for cancelations to come in the week I have recommended. Take the appointment given at the desk in case this approach does not work for you. Do labs 1 week before appointment (do not take hormones the night before or the morning of the blood test, take thyroid medication AFTER the blood test). Follow- up: Call frequently for cancelations to come in the week I have recommended. Take the appointment given at the desk in case this approach does not work for you. Time with patient: 35 minutes spent with the patient >50% counseling regarding diagnoses above. Parts of this note have been dictated. DO Heaven Temple MA 04/22/2018 4:47 PM Signed Assessment interrupted by medical provider, unable to complete nursing assessment. Sara Chin DO 04/22/2018 12:34 PM Addendum Medication orders placed this encounter BEGs nasal spray Sig: Bactroban(Mupirocin) 0.2% Edetate Disodium (EDTA) 0.1%, Gentamicin 0.25%Adults: Two sprays to each nostril 2 times a dayBlow nose then breathe and spray each nostril. If ear ringing occurs - stop [facility] Dispense: 1 Each Refill: 1 Estradiol 0.0375 mg/24 hr Sig: Apply 1 Patch as directed twice a week. Dispense: 8 Patch Refill: 2 Nystatin 50,000 Unit (atomized) nasal spray --> ([facility] call you) Sig: dissolve 1 cap (50,000 units) in 3 ml and spray 1.5 ml in each nostril 2 times a day Dispense: 60 capsule Refill: 2 progesterone micronized (PROMETRIUM) 100 mg capsule Sig: Take 1 capsule by mouth daily at bedtime. Dispense: 30 capsule Refill: 2 Additional Recommendations Today's plan - Trial of Progesterone, Estradiol (get mammogram) Trial of prilosec for 4 days, if helps cough and voice. If helps then use GI revive 2 TBLSP twice a day for 2 months. Will start gordy trial for mold exposure. Start BEGS and nystatin nasal spray ON NAD nasal spray - not helping much LDN helped after a month which resolved. Next visit?- ? address mold? Order BEGs and nystatin nasal spray ???Beyond Balance Tox-ease ??add ?glutamine Future? 23ANDme, ?BHRT Treatments: (binders-->argentyn nasal spray 1 spray BID-->BEGS (nasal biofilm) ---->antifungal nasal spray (nystatin, keto, or AMB)-->NAC(250-500mg oral QD or BID)-->oral antifungal(saoxndkj518,000 u orally, 1-4x a day, diflucan 100mg once every OTHER week)?-->?oral biofilm buster Instructions AND Resources Return 12 weeks with me Follow- up: Call frequently for cancelations to come in the week I have recommended. Take the appointment given at the desk in case this approach does not work for you. Do labs 1 week before appointment (do not take hormones the night before or the morning of the blood test, take thyroid medication AFTER the blood test). Follow- up: Call frequently for cancelations to come in the week I have recommended. Take the appointment given at the desk in case this approach does not work for you. Gordy 90 min sfrom suppss/meds and 30 min before food. Alejandra Arevalo 04/22/2018 1:10 PM Signed Referring Provider: SELF [[id number]] Allergies As of Date: 04/22/2018 Noted Allergy Reaction MALARONE (ATOVAQUONE-PROGUANIL) 09/10/2015 4 - Hives THIMERSOL (THIMEROSAL) 04/26/2009 Comments: Makes eyes red- thimerosal in contacts Date Reviewed: 12/11/2017 Reviewed by: Alejandra Arevalo - Fully Assessed Reason for Visit: Established Patient [175] 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] Other Visit Diagnoses:GERD without esophagitis [K21.9] Sleep disturbance [G47.9] Menopausal and postmenopausal disorder [N95.9] Order(s):BEGs nasal sprayBactroban(Mupirocin) 0.2% Edetate Disodium (EDTA) 0.1%, Gentamicin 0.25% Adults: Two sprays to each nostril 2 times a day Blow nose then breathe and spray each nostril. If ear ringing occurs - stop [facility] EachRfl: 1 Nystatin 50,000 Unit (atomized) nasal spray --> ([facility] call you)dissolve 1 cap (50,000 units) in 3 ml and spray 1.5 ml in each nostril 2 times a dayDisp: 60 capsuleRfl: 2 Estradiol 0.0375 mg/24 hrApply 1 Patch as directed twice a week.Disp: 8 PatchRfl: 2 progesterone micronized (PROMETRIUM) 100 mg capsuleTake 1 capsule by mouth daily at bedtime.Disp: 30 capsuleRfl: 2 ESTRADIOL-17B BLD [SQE2] Order #: [id number] FUTURE PROGESTERONE BLD [SQPROG] Order #: [id number] FUTURE DHEA-S BLD [SQDHEAS] Order #: [id number] FUTURE TESTOSTERONE, FREE AND TOTAL [SQFTESTO] Order #: [id number] FUTURE Prescriptions as of 04/22/2018 Sig: COMPOUNDED PRESCRIPTION Bactroban(Mupirocin) 0.2% Antonio* COMPOUNDED PRESCRIPTION dissolve 1 cap (50,000 units)* ESTRADIOL 0.0375 MG/24 HR LISETTE* Apply 1 Patch as directed twi* PROGESTERONE MICRONIZED 100 M* Take 1 capsule by mouth daily* ARMOUR THYROID 90 MG TABLET TAKE ONE TABLET BY MOUTH ONCE* ARMOUR THYROID 90 MG TABLET Take 1 tablet by mouth once d* AMOXICILLIN 875 MG-POTASSIUM * Take 2 tablets by mouth twice* ASCORBIC ACID (VITAMIN C) ORA* Take by mouth. B COMPLEX VITAMINS ORAL Take by mouth. BLACK COHOSH ROOT EXTRACT 40 * Take 40 mg by mouth. VITAMIN D-3 ORAL Take by mouth. CHASTE TREE ORAL Take by mouth. CHOLECALCIFEROL (VITAMIN D3) * Take 2,000 Units by mouth. CLINDAMYCIN HCL 150 MG CAPSULE CLINDAMYCIN HCL 300 MG CAPSULE COENZYME Q10 100 MG CAPSULE Take 200 mg by mouth. RIBOSE (BULK) 100 % POWDER Take 5,000 mg by mouth. FLUCONAZOLE 200 MG TABLET OMEGA-3 FATTY ACIDS-FISH OIL * Take by mouth. OSELTAMIVIR 75 MG CAPSULE TAKE ONE CAPSULE BY MOUTH TWI* VALACYCLOVIR 1 GRAM TABLET DOXYCYCLINE MONOHYDRATE 100 M* Take 100 mg by mouth. LIOTHYRONINE 5 MCG TABLET Take 5 mcg by mouth. THYROID (PORK) 97.5 MG TABLET Take 97.5 mg by mouth. OTC NUTRITIONAL SUPPLEMENT take three capsules daily wi* DOXYCYCLINE MONOHYDRATE 100 M* Take 1 capsule by mouth twice* OTC NUTRITIONAL SUPPLEMENT Take 1-4 drops as desired von* LIOTHYRONINE 5 MCG TABLET Take 1 tablet by mouth once d* OTC NUTRITIONAL SUPPLEMENT Take 4 capsules in the evenin* OTC NUTRITIONAL SUPPLEMENT Work up to 2-3 twice a day. * OTC NUTRITIONAL SUPPLEMENT 3 capsules twice a day with m* OTC NUTRITIONAL SUPPLEMENT Take 1-2 capsules two times d* OTC NUTRITIONAL SUPPLEMENT Take 1 capsule by mouth w ISAI* OTC NUTRITIONAL SUPPLEMENT Add 60 drops to a small amoun* OTC NUTRITIONAL SUPPLEMENT Take 1 capsule twice daily, b* SUCCIMER (BULK) 98 % POWDER Take 3 500mg tabs after First* SULFAMETHOXAZOLE 800 MG-TRIME* Take 1 tablet by mouth twice * OTC NUTRITIONAL SUPPLEMENT 4 capsules once or twice daryl* OTC NUTRITIONAL SUPPLEMENT Take 1 capsule by mouth once * MEDICATION, NON-DATABASE CBD Oil 10mg twice daily SUCCIMER (BULK) 98 % POWDER Take 3 500mg tabs after First* OTC NUTRITIONAL SUPPLEMENT Work up to 2-3 twice a day. * OTC NUTRITIONAL SUPPLEMENT Take 1 capsule by mouth three* OTC NUTRITIONAL SUPPLEMENT Take 1 capsule by mouth once * OTC NUTRITIONAL SUPPLEMENT Take 2 capsules by mouth once* OTC NUTRITIONAL SUPPLEMENT 3 capsules daily, in divided * OTC NUTRITIONAL SUPPLEMENT Work up to 2-3 twice a day. * OTC NUTRITIONAL SUPPLEMENT Take 2 capsules by mouth daryl* OTC NUTRITIONAL SUPPLEMENT 3 capsules twice a day with m* THYROID (PORK) 97.5 MG TABLET Take 97.5 mg by mouth once da* Problem List As Of Date 04/22/2018 Noted Resolved PERS HX OF THYROID MALIGNANCY [Z85.850] INVALID FOR* ESOPHAGEAL REFLUX [K21.9] INVALID FOR* FX METATARSAL-CLOSED [S92.309A] INVALID FOR* MALIGN NEOPL THYROID [C73] INVALID FOR* CHOLELITH W CHOLECYS NEC [K80.10] INVALID FOR* GASTRITIS ANTRAL( W/O Hemorrhage) [K29.60] INVALID FOR* SPRAIN SHOULDER/ARM NOS [S43.409A, S46.919A] INVALID FOR* FX PHALANX, FOOT-CLOSED [S92.919A] INVALID FOR* DYSMETABOLIC SYNDROME X [E88.81] INVALID FOR* SPRAIN NOS [T14.8XXA] INVALID FOR* Congenital pes planus [Q66.50] INVALID FOR* Skin lesion [L98.9] INVALID FOR* Other musculoskeletal symptoms referable to anna*INVALID FOR* Special screening for malignant neoplasms, colo*INVALID FOR* Dysphagia, unspecified(787.20) [R13.10] INVALID FOR* 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] INVALID FOR* GERD without esophagitis [K21.9] INVALID FOR* History of thyroid cancer [Z85.850] INVALID FOR* Hypothyroidism [E03.9] INVALID FOR* Foot cramps [R25.2] INVALID FOR* Menopausal and postmenopausal disorder [N95.9] INVALID FOR* Fatigue [R53.83] INVALID FOR* Vitamin D deficiency [E55.9] INVALID FOR* Rectal itching [L29.0] INVALID FOR* Sleep disturbance [G47.9] INVALID FOR* Other instructions from your clinician: Medication orders placed this encounter BEGs nasal spray Sig: Bactroban(Mupirocin) 0.2% Edetate Disodium (EDTA) 0.1%, Gentamicin 0.25%Adults: Two sprays to each nostril 2 times a dayBlow nose then breathe and spray each nostril. If ear ringing occurs - stop nasal sprayFAXED to [facility] Dispense: 1 Each Refill: 1 Estradiol 0.0375 mg/24 hr Sig: Apply 1 Patch as directed twice a week. Dispense: 8 Patch Refill: 2 Nystatin 50,000 Unit (atomized) nasal spray --> ([facility]) Sig: dissolve 1 cap (50,000 units) in 3 ml and spray 1.5 ml in each nostril 2 times a day Dispense: 60 capsule Refill: 2 progesterone micronized (PROMETRIUM) 100 mg capsule Sig: Take 1 capsule by mouth daily at bedtime. Dispense: 30 capsule Refill: 2 Additional Recommendations Today's plan - Trial of Progesterone, Estradiol (get mammogram) Trial of prilosec for 4 days, if helps cough and voice. If helps then use GI revive 2 TBLSP twice a day for 2 months. Will start gordy trial for mold exposure. Start BEGS and nystatin nasal spray ON NAD nasal spray - not helping much LDN helped after a month which resolved. Next visit?- ? address mold? Order BEGs and nystatin nasal spray ???Beyond Balance Tox-ease ??add ?glutamine Future? 23ANDme, ?BHRT Treatments: (binders-->argentyn nasal spray 1 spray BID-->BEGS (nasal biofilm) ---->antifungal nasal spray (nystatin, keto, or AMB)-->NAC(250-500mg oral QD or BID)-->oral antifungal(uapufpsg107,000 u orally, 1-4x a day, diflucan 100mg once every OTHER week)?-->?oral biofilm buster Instructions AND Resources Return 12 weeks with me Follow- up: Call frequently for cancelations to come in the week I have recommended. Take the appointment given at the desk in case this approach does not work for you. Do labs 1 week before appointment (do not take hormones the night before or the morning of the blood test, take thyroid medication AFTER the blood test). Follow- up: Call frequently for cancelations to come in the week I have recommended. Take the appointment given at the desk in case this approach does not work for you. Gordy 90 min sfrom suppss/meds and 30 min before food. Visit Notes: >> Alejandra Arevalo Mon Apr 22, 2018 1:08 PM Status: Signed Prescriptions ordered this encounter Disp Refills Start End COMPOUNDED PRESCRIPTION 1 Ea* 1 04/22/2018 Class: Print RX Sig: Bactroban(Mupirocin) 0.2% Edetate Disodium (EDTA) 0.1%, Gentamicin 0.25% Adults: Two sprays to each nostril 2 times a day Blow nose then breathe and spray each nostril. If ear ringing occurs - stop nasal spray FAXED to [facility] pharmacy COMPOUNDED PRESCRIPTION 60 c* 2 04/22/2018 Sig: dissolve 1 cap (50,000 units) in 3 ml and spray 1.5 ml in each nostril 2 times a day ESTRADIOL 0.0375 MG/24 HR SEMIWEEKLY* 8 Pa* 2 04/22/2018 Route: TRANSDERM. Sig: Apply 1 Patch as directed twice a week. PROGESTERONE MICRONIZED 100 MG CAPSU* 30 c* 2 04/22/2018 Route: ORAL Sig: Take 1 capsule by mouth daily at bedtime. Encounter Status:Closed by SARA CHIN on 04/22/18 CBC AND DIFFERENTIAL Collected: 03/11/2018 Status: F Source: [place] 9:13 AM [facility] REFERENCE REPOSITORY TYPE CODE TESTS RESULT OUT OF REFERENCE UNITS RANGE LAB WBC(LOINC) 3.70-11.00 k/uL WBC 7.08 LAB RBC(LOINC) 3.90-5.20 m/uL RBC 4.36 LAB HGB(LOINC) 11.5-15.5 g/dL Hemoglobin 14.2 LAB HCT(LOINC) 36.0-46.0 % Hematocrit 43.1 LAB MCV(LOINC) 80.0-100.0 fL MCV 98.9 LAB MCH(LOINC) 26.0-34.0 pG MCH 32.6 LAB MCHC(LOINC 30.5-36.0 g/dL ) MCHC 32.9 LAB RDWCV(LOIN 11.5-15.0 % C) RDW-CV High 15.4 LAB PLTCT(LOIN 150-400 k/uL C) Platelet Count 214 LAB MPV(LOINC) 9.0-12.7 fL MPV 11.0 LAB ANEUT(LOIN % C) Neut% 64.0 LAB AANEUT(AUDRA 1.45-7.50 k/uL NC) Abs Neut 4.53 LAB ALYMP(LOIN % C) Lymph% 27.0 LAB AALYMP(AUDRA 1.00-4.00 k/uL NC) Abs Lymph 1.91 LAB AMONO(LOIN % C) [place]% 7.6 LAB AAMONO(AUDRA <0.87 k/uL NC) Abs [place] 0.54 LAB AEOS(LOINC % ) Eosin% 1.0 LAB AAEOS(LOIN <0.46 k/uL C) Abs Eosin 0.07 LAB ABASO(LOIN % C) Baso% 0.4 LAB AABASO(AUDRA <0.11 k/uL NC) Abs Baso 0.03 Performed By: #### MG1, TSH, FREET3, FT4, VITD #### [facility] Routine Lab [address] [place], [place] [address] #### XMICTG #### [facility] Immuno Assay [address] [place], [place] [address] #### NATE #### [facility] Chemistry [address] [place] [address] AMMONIA Collected: 03/11/2018 Status: F Source: [place] 9:13 AM [facility] REFERENCE REPOSITORY TYPE CODE TESTS RESULT OUT OF REFERENCE UNITS RANGE LAB NH3(LOINC) 11-51 umol/L Ammonia 16 Performed By: #### MG1, TSH, FREET3, FT4, VITD #### [facility] Routine Lab [address] [place] [address] #### XMICTG #### [facility] Immuno Assay [address] [place] [address] #### NATE #### [facility] Chemistry [address] [place] [address] COMP METABOLIC PANEL Collected: 03/11/2018 Status: F Source: [place] 9:13 AM [facility] REFERENCE REPOSITORY TYPE CODE TESTS RESULT OUT OF REFERENCE UNITS RANGE LAB TP(LOINC) 6.3-8.0 g/dL Protein, Total 6.6 LAB ALB(LOINC) 3.9-4.9 g/dL Albumin 4.2 LAB CA(LOINC) 8.5-10.2 mg/dL Calcium, Total 9.3 LAB TBIL(LOINC 0.2-1.3 mg/dL ) Bilirubin, Total 0.4 LAB ALKP(LOINC 32-117 U/L ) Alkaline Phosphatase 63 LAB AST(LOINC) 13-35 U/L AST 18 LAB GLU(LOINC) 74-99 mg/dL Glucose 99 LAB BUN(LOINC) 7-21 mg/dL BUN 16 LAB CRET(LOINC 0.58-0.96 mg/dL ) Creatinine 0.59 LAB NA(LOINC) 136-144 mmol/L Sodium 139 LAB K(LOINC) 3.7-5.1 mmol/L Potassium 4.5 LAB CL(LOINC) 97-105 mmol/L Chloride 102 LAB CO2(LOINC) 22-30 mmol/L CO2 25 LAB AGAP(LOINC 9-18 mmol/L ) Anion Gap 12 LAB ALT(LOINC) 7-38 U/L ALT 21 LAB GFRAA(LOIN C) eGFR- >60 Amer. LAB GFRNAA(AUDRA . NC) eGFR-All Other Races >60 Performed By: #### MG1, TSH, FREET3, FT4, VITD #### [facility] Routine Lab [address] [phone] #### XMICTG #### [facility] Immuno Assay [address] [place] [phone] #### NATE #### [facility] Chemistry [address] [place] [phone] PHOSPHORUS Collected: 03/11/2018 Status: F Source: [place] 9:13 AM [facility] REFERENCE REPOSITORY TYPE CODE TESTS RESULT OUT OF REFERENCE UNITS RANGE LAB PHOS(LOINC 2.7-4.8 mg/dL ) Phosphorus 3.4 Performed By: #### MG1, TSH, FREET3, FT4, VITD #### [facility] Routine Lab [address] [place] [phone] #### XMICTG #### [facility] Immuno Assay [address] [place] [phone] #### NATE #### [facility] Chemistry [address] [place] [phone] MAGNESIUM Collected: 03/11/2018 Status: F Source: [place] 9:13 AM [facility] REFERENCE REPOSITORY TYPE CODE TESTS RESULT OUT OF REFERENCE UNITS RANGE LAB MG(LOINC) 1.7-2.3 mg/dL Magnesium 2.2 Performed By: #### MG1, TSH, FREET3, FT4, VITD #### [facility] Routine Lab [address] [phone] #### XMICTG #### [facility] Immuno Assay [address] [phone] #### NATE #### [facility] Chemistry [address] [place] [phone] TSH Collected: 03/11/2018 Status: F Source: [place] 9:13 AM CLINIC REFERENCE REPOSITORY TYPE CODE TESTS RESULT OUT OF RANGE REFERENCE UNITS LAB TSH(LOINC) 0.400-5.500 uU/mL High TSH 28.790 Performed By: #### MG1, TSH, FREET3, FT4, VITD #### [facility] Routine Lab [address] [phone] #### XMICTG #### [facility] Immuno Assay [address] [phone] #### NATE #### [facility] Chemistry [address] [place], [place] [phone] FREE T3 Collected: 03/11/2018 Status: F Source: [place] 9:13 AM [facility] REFERENCE REPOSITORY TYPE CODE TESTS RESULT OUT OF RANGE REFERENCE UNITS LAB FREET3(LOIN 2.3-4.1 pg/mL C) Free T3 3.1 Performed By: #### MG1, TSH, FREET3, FT4, VITD #### [facility] Routine Lab [address] [place] [phone] #### XMICTG #### [facility] Immuno Assay [address] [place] [phone] #### NATE #### [facility] Chemistry [address] [place] [phone] FREE T4 Collected: 03/11/2018 Status: F Source: [place] 9:13 AM [facility] REFERENCE REPOSITORY TYPE CODE TESTS RESULT OUT OF RANGE REFERENCE UNITS LAB FT4(LOINC) 0.9-1.7 ng/dL Low Free T4 0.7 Performed By: #### MG1, TSH, FREET3, FT4, VITD #### [facility] Routine Lab [address] [place] [phone] #### XMICTG #### [facility] Immuno Assay [address] [phone] #### NATE #### [facility] Chemistry [address] [place] [phone] THYROID ANTIBODIES Collected: 03/11/2018 Status: F Source: [place] FOR REF LAB USE ONLY 9:13 AM [facility] REFERENCE REPOSITORY TYPE CODE TESTS RESULT OUT OF REFERENCE UNITS RANGE LAB MICRO(LOIN <5.6 IU/mL C) TPO Antibody <1.0 LAB TGAB(LOINC <14.4 IU/mL ) Thyroglobulin Ab <1.0 Performed By: #### MG1, TSH, FREET3, FT4, VITD #### [facility] Routine Lab [address] [place] [phone] #### XMICTG #### [facility] Immuno Assay [address] [place] [phone] #### NATE #### [facility] Chemistry [address] [place] [phone] VITAMIN D 25 HYDROXY Collected: 03/11/2018 Status: F Source: [place] 9:13 AM [facility] REFERENCE REPOSITORY TYPE CODE TESTS RESULT OUT OF REFERENCE UNITS RANGE LAB VITD(LOINC) 31.0-80.0 ng/mL Low Vitamin D 25 23.1 Hydroxy Performed By: #### MG1, TSH, FREET3, FT4, VITD #### [facility] Routine Lab [address] [place] [phone] #### XMICTG #### [facility] Immuno Assay [address] [place] [phone] #### NATE #### [facility] Chemistry [address] [place] [phone] VITAMIN A Collected: 03/11/2018 Status: F Source: [place] 9:13 AM [facility] REFERENCE REPOSITORY TYPE CODE TESTS RESULT OUT OF REFERENCE UNITS RANGE LAB NATE(LOINC) 0.30-1.20 mg/L Vitamin A 0.50 Performed By: #### MG1, TSH, FREET3, FT4, VITD #### [facility] Routine Lab [address] [place] [phone] #### XMICTG #### [facility] Immuno Assay [address] [phone] #### NATE #### [facility] Chemistry [address] [place] [address] REVERSE T3 Collected: 03/11/2018 Status: F Source: [place] 9:13 AM CLINIC REFERENCE REPOSITORY TYPE CODE TESTS RESULT OUT OF REFERENCE UNITS RANGE LAB REVT3(LOINC 9.0-27.0 ng/dL ) Reverse T3 10.4 Performed By: #### MG1, TSH, FREET3, FT4, VITD #### [facility] Routine Lab [address] [place] [address] #### XMICTG #### [facility] Immuno Assay [address] [place] [address] #### NATE #### [facility] Chemistry [address] [place] [address] PROGRESS Observed: 12/11/2017 Status: COMPLETED Source: [place] 1:33 PM [facility] REPOSITORY HNO ID: [id number] Author: Sara Chin Service: (none) Author Type: Physician Type: Progress Notes Filed: 12/11/2017 2:21 PM Note Text: Follow-up Visit Patient: Sanam Hudson 78.9 kg (174 lb) 171.5 cm (5' 7.5) Body mass index is 26.85 kg/(m2). RMR can't be calculated - Weight unrecorded in last 120 days. Waist measurement: No waist measurement recorded. BP: 127/66 ALLERGIES Allergen Reactions - Malarone [Atovaquon* Hives - Thimersol [Thimeros* Makes eyes red- thimerosal in contacts Current Outpatient Prescriptions on File Prior to Visit: ARMOUR THYROID 90 mg tab Take 1 tablet by mouth once daily. 20 minutes before breakfast doxycycline monohydrate (MONODOX) 100 mg capsule Take 1 capsule by mouth twice daily. Take at least 2 hrs away from probiotics. Avoid sunlight, do not lay flat for at least an hour. Stevia-Liquid Extract (Protocol for Life Balance) Take 1-4 drops as desired daily. liothyronine (CYTOMEL) 5 mcg tablet Take 1 tablet by mouth once daily. Nrf2 Activator (Xymogen) Take 4 capsules in the evening before bed. Magnesium Citrate 150mg BID Stress, blood sugar, thyroid/hormones/adrenals/sleep/energy/toxins/muscles/constipation/asthma Work up to 2-3 twice a day. - back off if loose stools UltraNutrient (Pure Encapsulations) 3BID Multi-vitamin/coq10/milk thistle/turmeric/janey/alphalipoic acid/B complex 3 capsules twice a day with meals Meriva-SR (Nathaniel) decrease inflammation/pain/gut healing Take 1-2 capsules two times daily Betaine HCL Pepsin (Pure Encapsulations) Take 1 capsule by mouth w MEALS. Sweetish Bitters Elixir 4 oz. (Concepcion Herbs) Add 60 drops to a small amount of water and take 15-20 minutes before meals NAC 600mg (Pure Encapsulations) Take 1 capsule twice daily, between meals. Succimer, Bulk, (DMSA, BULK,) 98 % powd Take 3 500mg tabs after First Morning Void. Then collect urine x 6 hours. sulfamethoxazole-trimethoprim (BACTRIM DS,SEPTRA DS) 800-160 mg per tablet Take 1 tablet by mouth twice daily. BiotaGen capsules (Klaire/Prothera) prebiotic (feeds probiotic) 4 capsules once or twice daily - if bloating decrease dose Ther-Biotic Factor 4 (Bifidobacterium Complex) (Klaire/Prothera) probiotic (FRIDGE) Take 1 capsule by mouth once daily. MEDICATION, NON-DATABASE CBD Oil 10mg twice daily Succimer, Bulk, (DMSA, BULK,) 98 % powd Take 3 500mg tabs after First Morning Void. Then collect urine x 6 hours. Magnesium Citrate 150mg BID Stress, blood sugar, thyroid/hormones/adrenals/sleep/energy/toxins/muscles/constipation/asthma Work up to 2-3 twice a day. - back off if loose stools Hepato-Thera Forte (Klaire/Prothera) Take 1 capsule by mouth three times daily. Ther-Biotic Detoxification Support (Klaire/Prothera) Take 1 capsule by mouth once daily. Saccharomyces Boulardii (Klaire/Prothera) Take 2 capsules by mouth once daily. PS 100 - 120 ct. TID (Pure Encapsulations) 3 capsules daily, in divided doses, with meals Magnesium Glycinate 120mg (BID) Work up to 2-3 twice a day. - back off if loose stools [place] (Pure Encapsulation) Take 2 capsules by mouth daily with food. UltraNutrient (Pure Encapsulations) 3BID 3 capsules twice a day with meals thyroid, pork, (NATURE-THROID) 97.5 mg tab Take 97.5 mg by mouth once daily. No current facility-administered medications on file prior to visit. PAST MEDICAL HISTORY Diagnosis Date - Arrhythmia irregular heart rate-several yrs ago-PVC's - Esophageal reflux 05/24/2005 - Lichen sclerosus - PERS HX OF THYROID MALIGNANCY 05/24/2005 - Snoring PAST SURGICAL HISTORY Procedure Laterality Date - COLONOSCOP W/ OR W/O BRSH SPEC 2003 Colonoscopy - COLONOSCOP W/ OR W/O BRSH SPEC 10/01/14 Colonoscopy - EGD W/O BRSH SPECIMEN W/BX 03/09/06 Hiatal hernia/gastritis/esophagitis - EGD W/O OR W/BRUSH/WASH 10/01/14 EGD - LAP CHOLECYSTECT/CHOLANGIOGRAPHY 03/12/06 - PAST SURGICAL HISTORY OF 03/12/2006 transvaginal sling - REMOVAL OF OVARY/TUBE(S) 10/25/00 Salpingo-oophorectomy - REMOVAL OF SKIN TAGS 1-15 03/18/11 Ablation skin tags/ shave bx x 2 - S SLING BLADDER - THYROIDECTOMY 07/19/01 For Cancer - THYROIDECTOMY - TOTAL ABDOM HYSTERECTOMY 10/25/00 Hysterectomy, FIDE for fibroids and abnormal menstruation Social History Marital status: Spouse name: marita cota Years of education: 20 Number of children: 3 Occupational History 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 Walking 2. 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 Heart burn, constipation resolved with it. Hair getting darker. Cough - 1 yr (non-prd) - got a Rowenta Will be getting HBOT Seen by Dr. Livingston - tsted + IgG for viruses. 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 Having many amalgams removed (biologic dentist) and on his protocol (DMSA), Vit C, GSE, COQ10, minerals, probiotics, EPA, GLA + DMSA 500mg, Repeat for 2 days after procedure. He has her on high dose doxy, Augmentin for 2 months then diflucan 3 days a week. ? SUBJECTIVE Patient goals: 1. Walking 2. Left hand use Subjective: Jul Visit- 61 yo female dx motor neuron dz w/ CIRS-WDB and elevated Lead by KOI ?- getting IV EDTA 9 tx. Jock itch/abd rash was 50% better w/ diflucan and then significantly improved by 3rd IV EDTA (helped biofilm) Tearful - not better and left arm is getting weak. Stopped DMSA oral but on EDTA IV weekly. Has not retested, 2 more and will have 25. Didn't get the Igenix kit done () High dose GSH made her sick for a few months, felt badly on DMSA, worse with 2 saccharomyces. NAC made her worse and too much ?? Questions - 1. Lymphatic massage? Letter written 2. Bump in finger (hurts) fluctates. -- see PCP, hasnt tried FSM 3. Possibility of Dr.Neil ponce? MTHFR SNP ? Get on Beyond Balance Tox-ease 4. If Lyme prognosis? ? ? Subjective: Apr Visit-?Patient goals: walking, hair ?? 1. Hair falling out - bothering her 2. [place] worse on Glutathione/hot bath to do RTL QUAD 3. [place] better w/ 13 EDTA, but after hot bath felt worse ?? Plan: Ox bile acids, Biotagen, Therbiotic Factor 4, Bactrim for 10 days with Saccharomyces B Stay on Hepato Ther forte, magnesium citrate/glycinate, ONE omega, PS 100, Saccharomyces, ultra nutrient ?? Rectal itching?Sweetish bitters or bETAI NE ?? February visit - 61 yo female dx motor neuron dz w/ CIRS-WDB and elevated Lead by KOI ?- getting IV EDTA 9 tx. Jock itch/abd rash was 50% better w/ diflucan and then significantly improved by 3rd IV EDTA (helped biofilm) Rectal itch - has been using coconut oil w/ clove/lemon grass, frankincense, wintergreen, oregano Also takes others orally - using DoTerra. ???Does have cervical lymph node swelling after EDTA. Started CBD December 04 - claimed to be antifungal. Leg spacticity - almost normal re:stiffness per PT (2 wks after anti-fungal tx) Stopped diflucan after 1 course 2 weeks on, 2 weeks off. ?Did 3 months of it total and would like to take a break and address w/ EDTA/EOS. Nausea - occasional ?? December visit - Spasticity better - maybe from lata tx - worse when off diflucan Joints hurt - PT says possibly due to lack of spasticity. Rash - spready off of the diflucan 5 days - may need to do diflucan 2-3 times a week ?? Todays visit?- CIR S?WDB labs consistent with mold exposure, patient to have ERMI testing done at home and work (letter provided) will consider real- time lab quad urine panel to guide treatment. ?Can start CSM currently then check marcons nasal swab and treat with begs if appropriate Lata?rash and leg spasticity improved with this will continue Diflucan 2-3 times a week. ?Typically would do weekly however patient has noticed increase in rash when off of Diflucan for 5 days Sasha U TE November 2016 mercury 14.36, lead 27.0 provoked with DMSA?start oral DMSA 3 days on 11 days off or patient can seek treatment with Dr. Paredes for IV chelation ?? Stop GI revive, VSL#3, ribose, glucosamine/boswellia Stay on UN, PS 100, sacch, ONe omega, magnesium glycinate Next visit?- ?Recheck CIRS labs 1 month of CSM full dose If can't tolerate CSM do Welchol ? Quad panel Order MARCoNS ?? November visit - Constipation much better Energy still tired Headache - still had one that took weeks until TP injection and massage Gait - no change Went to [place] and did the pool which helped her feel better this week Pelvic rash - red area Doing EMDR ?? Sep 2016 initial visit Review of Systems: See MSQ Objective: BP 127/66 Pulse 73 Ht 5' 7.5 (1.72m) Wt 174 lb (78.9kg) BMI 26.83 kg/(m2). Component Latest Ref Rng AND Units 11/12/2017 11/12/2017 11/12/2017 11/12/2017 8:55 AM 9:30 AM 9:30 AM 9:30 AM Hb A Percent % 97.4 Hb F Percent 0.0 - 1.8 % None detected. Hb A2 Percent 1.5 - 3.5 % 2.6 Abnormal Hb % No abnormal hemoglobin identified. Interpretation (HGB ELECTRO) SEE COMMENT Hb Screen Review Reviewed by Sony Saxena MD, PhD. ([id number]) Coxsackie B Type 1 <1:10 1:80 (A) Cox[place]ie B Type 2 <1:10 1:160 (A) Cox[place]ackie B Type 3 <1:10 >=1:640 (H) Cox[place]ackie B Type 4 <1:10 >=1:640 (H) [place]ie B Type 5 <1:10 1:10 Coxsackie B Type 6 <1:10 <1:10 HSV IgG 1 Qualitative Negative Negative Herpes simplex 1, IgG AI <0.2 HSV IgG 2 Qualitative Negative Negative Herpes simplex 2, IgG AI <0.2 Rickettsia typhi, IgG <1:64 titer <1:64 Rickettsia typhi, IgM <1:64 titer <1:64 Rickettsia rickettsii, IgG <1:64 titer <1:64 Rickettsia rickettsii, IgM <1:64 titer <1:64 Influenza A Antibody <=0.89 IV 3.71 (H) Influenza A Ab, IgM <=0.89 IV 0.12 Influenza B Antibody <=0.89 IV 1.77 (H) Influenza B Ab, IgM <=0.89 IV 0.08 Testosterone <40 ng/dL 14 Testosterone Free % 0.8 - 2.3 % 2.7 (H) Testosterone Free 1.8 - 10.4 pg/mL 3.7 Brucella abortus, IgG Negative Negative Brucella abortus, IgM Negative Negative Interpretation (Brucella Abs) (NOTE) Vitamin D 1,25 Dihydroxy D2 pg/mL <8.0 Vitamin D 1,25 Dihydroxy D3 pg/mL 41.6 Vit D1,25 Dihydroxy 15.0 - 60.0 pg/mL 41.6 CMV IgM, Qual Negative Negative CMV Antibody, IgM AU/mL <8.0 Hemoglobin A1C 4.3 - 5.6 % 5.3 Estimated Average Glucose mg/dL 105 EBV VCA IgG, Qual Negative Positive (A) EBV VCA, IgG AI >8.0 EBV VCA IgM, Qual Negative Negative EBV VCA, IgM AI 0.8 HSV 1 IgM IFA Screen Negative HSV 2 IgM IFA Screen Negative Coxiella burnetii IgG, Phase 1 <1:16 titer <1:16 Coxiella burnetii IgG, Phase 2 <1:16 titer <1:16 Coxiella burnetii IgM, Phase 1 <1:16 titer <1:16 Coxiella burnetii IgM, Phase 2 <1:16 titer <1:16 F tularensis Ab, IgG <=9 U/mL 0 F tularensis Ab, IgM <=9 U/mL 0 Test 1 Adenovirus Antibody, Serum BABESIA SPECIES, MOLECULAR DETECTION, PCR, BLOOD BABESIA WA 1 TOXOPLASMA GONDII ANTIBODIES IGG IGM Test Results 1 Refer to supplemental report Refer to supplemental report Refer to supplemental report Refer to supplemental report Test 2 TOXOPLASMA GONDII ANTIBODY IGA BY SARAH SERUM Test Results 2 Refer to supplemental report Ammonia 11 - 51 umol/L 14 Sex Hormone Bind GLB 17 - 125 nmol/L 64 Folate >4.7 ng/mL 18.6 Ceruloplasmin 16 - 45 mg/dL 23 Cortisol ug/dL 12.5 Magnesium 1.7 - 2.3 mg/dL 2.2 Phosphorus 2.7 - 4.8 mg/dL 3.8 DHEA-S 18.9 - 205.0 ug/dL 121.3 Estradiol 17B pg/mL <25 Progesterone ng/mL <0.2 Anti-Streptolysin O <201 IU/mL <20 Vitamin D 25 Hydroxy 31.0 - 80.0 ng/mL 33.4 Cystatin C 0.61 - 0.95 mg/L 0.86 Vitamin A 0.30 - 1.20 mg/L 0.55 MAG Ab IgM, SARAH 0 - 999 TU 0 Pregnenolone 15 - 132 ng/dL 36 Vitamin B6, Plasma 20.0 - 125.0 nmol/L 56.0 DHEA 0.630 - 4.700 ng/mL 2.030 Coxsackie A9 Ab <1:8 <1:8 Herpes Vir. 6 IgG Ab 1:40 (H) HHV6 Human Abs, IgM SEE NOTE MTHFR Report (NOTE) Bioelectrical Impedance Analysis Results by [employer] Recent Results from: 09/06/16 at 10:24 AM BMI: 26.85 kg/m? General Test Result Range Phase Angle (PA) 9.2 Min: 5.8 Mean: 6.7 Max: 7.6 Basal Metabolic Rate (BMR) 1675 Min: 1172 Mean: 1327 Max: 1482 Fat AND Fat Free Mass Test Result Range Fat (lbs) 56.8 Min: 39.6 Mean: 62.2 Max: 84.8 Fat % 32 Min: 31.7 Mean: 38.3 Max: 44.9 Fat Free Mass (FFM) lbs 120.7 Min: 81.5 Mean: 95.8 Max: 110.1 Total Body Water Test Result Range TBW (lbs) 89.8 Min: 60.9 Mean: 71.7 Max: 82.5 TBW % of FFM 74.4 Min: 73.2 Mean: 74.7 Max: 76.2 Intracellular Water Test Result Range ICW (lbs) 47.3 Min: 33.1 Mean: 37.7 Max: 42.3 ICW % of FFM 39.2 Min: 38 Mean: 39.5 Max: 41 Extracellular Water Test Result Range ECW (lbs) 42.5 Min: 27.6 Mean: 34 Max: 40.4 ECW % of FFM 35.2 Min: 33.5 Mean: 35.2 Max: 36.9 Physical Exam: alert, well NAD, well groomed PREVIOUS Functional Diagnostic Assessment Magnesium Citrate 150mg BID Stress, blood sugar, thyroid/hormones/adrenals/sleep/energy/toxins/muscles/constipation/asthma Sig: Work up to 2-3 twice a day. - back off if loose stools Refill: 0 Meriva-SR (Nathaniel) decrease inflammation/pain/gut healing Sig: Take 1-2 capsules two times daily Refill: 0 Nrf2 Activator (Xymogen) Sig: Take 4 capsules in the evening before bed. Refill: 0 thyroid, pork, (NATURE-THROID) 97.5 mg tab Sig: Take 1 tablet by mouth once daily. Dispense: 30 tablet Refill: 3 UltraNutrient (Pure Encapsulations) 3BID Multi-vitamin/coq10/milk thistle/turmeric/janey/alphalipoic acid/B complex Si capsules twice a day with meals Refill: 0 ? Additional Recommendations Today's plan - reviewed [place] High dose GSH made her sick for a few months, felt badly on DMSA, worse with 2 saccharomyces C/w mold -gliotoxin gentle treatment C/w Dr. 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 Mold exposure in her work bldg Stress - full prof [facility], good repuation, Reprimanded for a good deed then had to keep working with the person who betrayed her - occurred prior to the Motor neuron disorder ?MSIDS 67 ?? Jul 2017 visit- Today's plan - reviewed [place] High dose GSH made her sick for a few months, felt badly on DMSA, worse with 2 saccharomyces C/w mold -gliotoxin gentle treatment Tx: Dr. Damon w/ EDTA IV Nutritional Assessment Nutreval Jun 2017 Most high need, high lipid peroxides/8OHDG Plan: Ultranutrient ? Digestive Function GERD improved w/diet (no sugar) Constipation - better off diflucan GI effects March 2017 - Dysbiosis Elevated fecal fat/LCF A, cluster O, phospholipids as per Very low short-chain fatty acids Commensal bacteria?18 of 23 elevated with high Lactobacillus and Escherichia coli, low bifidobacterium Additional bacteria Bacillus species 4+, Klebsiella pneumonia 4+ both sensitive to Bactrim Plan: Ox bile acids, Biotagen, Therbiotic Factor 4, Bactrim for 10 days with Saccharomyces B ?? 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 Energy Production Motor neuron disorder - leg weakness Fatigue - better with B12 shots Foot/calf cramps ?? Detoxification Function WOLFF Many amalgams 2017 KOI repeat compared to November 2016 after 13 IV EDTA?lead dropped from 27-->10.2, mercury increased from 14.36 -->?19.73 (patient felt good on EDTA and rash cleared) Tx: Dr. Damon w/ EDTA IV ? Hormonal Assessment Insomnia - hot flash 5am Hot flashes - black cohosh helps the intensity Hypothyroid dt cancer - brittle nails Postmenopausal - Address w/ Dr. Livingston ?? Structural Assessment OA knees Swollen ankles LIFESTYLE PRESCRIPTION Functional Nutrition: Per CFM RD Sleep: No chg Exercise Prescription: no chg Stress Management: No chg Medication orders placed this encounter Querctin and Abbie ((600mg each) Designs for Health) Sig: take three capsules daily with meals Refill: 0 Additional Recommendations Today's plan - reviewed Oct 2017[facility] Leanna ISAAC note Postmenopausal - Address w/ Dr. Livingston Cough - try Quercitin On AA powder from Scottie Maynard and NAD CIRS - was sick with gordy, On Argentyn Next visit?- ? address mold? Order BEGs and nystatin nasal spray ???Beyond Balance Tox-ease ??add ?glutamine Future? 23ANDme, BHRT ?? Treatments: (binders-->argentyn nasal spray 1 spray BID-->BEGS (nasal biofilm) ---->antifungal nasal spray (nystatin, keto, or AMB)-->NAC(250-500mg oral QD or BID)-->oral antifungal([id number] u orally, 1-4x a day, diflucan 100mg once every OTHER week)?-->?oral biofilm buster Instructions AND Resources Return in 4 months with me. Do hyperbarics and consider infrared sauna Time with patient: 45 minutes spent with the patient >50% counseling regarding diagnoses above. Parts of this note have been dictated. Sara Chin DO CNOV Observed: 12/11/2017 Status: COMPLETED Source: [place] 1:15 PM [facility] REPOSITORY Office Visit ([facility]) TRISTANSANAM Simran ([id number]) 1955 F Date Time Provider Department 12/11/17 1:15 PM SARA [facility]IN [facility] During your visit today, we recorded the following information about you: Pulse Blood pressure Weight Height 73/minute 127/66 78.9 kg 1.715 m Sara Chin DO 12/11/2017 2:21 PM Signed Follow-up Visit Patient: Sanam Hudson 78.9 kg (174 lb) 171.5 cm (5' 7.5ANDquot;) Body mass index is 26.85 kg/(m2). RMR can't be calculated - Weight unrecorded in last 120 days. Waist measurement: No waist measurement recorded. BP: 127/66 ALLERGIES Allergen Reactions - Malarone [Atovaquon* Hives - Thimersol [Thimeros* Makes eyes red- thimerosal in contacts Current Outpatient Prescriptions on File Prior to Visit: ARMOUR THYROID 90 mg tab Take 1 tablet by mouth once daily. 20 minutes before breakfast doxycycline monohydrate (MONODOX) 100 mg capsule Take 1 capsule by mouth twice daily. Take at least 2 hrs away from probiotics. Avoid sunlight, do not lay flat for at least an hour. Stevia-Liquid Extract (Protocol for Life Balance) Take 1-4 drops as desired daily. liothyronine (CYTOMEL) 5 mcg tablet Take 1 tablet by mouth once daily. Nrf2 Activator (Xymogen) Take 4 capsules in the evening before bed. Magnesium Citrate 150mg BID Stress, blood sugar, thyroid/hormones/adrenals/sleep/energy/toxins/muscles/constipation/asthma Work up to 2-3 twice a day. - back off if loose stools UltraNutrient (Pure Encapsulations) 3BID Multi-vitamin/coq10/milk thistle/turmeric/janey/alphalipoic acid/B complex 3 capsules twice a day with meals Meriva-SR (Nathaniel) decrease inflammation/pain/gut healing Take 1-2 capsules two times daily Betaine HCL Pepsin (Pure Encapsulations) Take 1 capsule by mouth w MEALS. Sweetish Bitters Elixir 4 oz. (Concepcion Herbs) Add 60 drops to a small amount of water and take 15-20 minutes before meals NAC 600mg (Pure Encapsulations) Take 1 capsule twice daily, between meals. Succimer, Bulk, (DMSA, BULK,) 98 % powd Take 3 500mg tabs after First Morning Void. Then collect urine x 6 hours. sulfamethoxazole-trimethoprim (BACTRIM DS,SEPTRA DS) 800-160 mg per tablet Take 1 tablet by mouth twice daily. BiotaGen capsules (Klaire/Prothera) prebiotic (feeds probiotic) 4 capsules once or twice daily - if bloating decrease dose Ther-Biotic Factor 4 (Bifidobacterium Complex) (Klaire/Prothera) probiotic (FRIDGE) Take 1 capsule by mouth once daily. MEDICATION, NON-DATABASE CBD Oil 10mg twice daily Succimer, Bulk, (DMSA, BULK,) 98 % powd Take 3 500mg tabs after First Morning Void. Then collect urine x 6 hours. Magnesium Citrate 150mg BID Stress, blood sugar, thyroid/hormones/adrenals/sleep/energy/toxins/muscles/constipation/asthma Work up to 2-3 twice a day. - back off if loose stools Hepato-Thera Forte (Klaire/Prothera) Take 1 capsule by mouth three times daily. Ther-Biotic Detoxification Support (Klaire/Prothera) Take 1 capsule by mouth once daily. Saccharomyces Boulardii (Klaire/Prothera) Take 2 capsules by mouth once daily. PS 100 - 120 ct. TID (Pure Encapsulations) 3 capsules daily, in divided doses, with meals Magnesium Glycinate 120mg (BID) Work up to 2-3 twice a day. - back off if loose stools One [place] (Pure Encapsulation) Take 2 capsules by mouth daily with food. UltraNutrient (Pure Encapsulations) 3BID 3 capsules twice a day with meals thyroid, pork, (NATURE-THROID) 97.5 mg tab Take 97.5 mg by mouth once daily. No current facility-administered medications on file prior to visit. PAST MEDICAL HISTORY Diagnosis Date - Arrhythmia irregular heart rate-several yrs ago-PVC's - Esophageal reflux 05/24/2005 - Lichen sclerosus - PERS HX OF THYROID MALIGNANCY 05/24/2005 - Snoring PAST SURGICAL HISTORY Procedure Laterality Date - COLONOSCOP W/ OR W/O BRSH SPEC 2003 Colonoscopy - COLONOSCOP W/ OR W/O BRSH SPEC 10/01/14 Colonoscopy - EGD W/O BRSH SPECIMEN W/BX 03/09/06 Hiatal hernia/gastritis/esophagitis - EGD W/O OR W/BRUSH/WASH 10/01/14 EGD - LAP CHOLECYSTECT/CHOLANGIOGRAPHY 03/12/06 - PAST SURGICAL HISTORY OF 03/12/2006 transvaginal sling - REMOVAL OF OVARY/TUBE(S) 10/25/00 Salpingo-oophorectomy - REMOVAL OF SKIN TAGS 1-15 03/18/11 Ablation skin tags/ shave bx x 2 - S SLING BLADDER - THYROIDECTOMY 07/19/01 For Cancer - THYROIDECTOMY - TOTAL ABDOM HYSTERECTOMY 10/25/00 Hysterectomy, FIDE for fibroids and abnormal menstruation Social History Marital status: Spouse name: marita cota Years of education: 22 Number of children: 3 Occupational History 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 Walking 2. 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 Heart burn, constipation resolved with it. Hair getting darker. Cough - 1 yr (non-prd) - got a Rowenta Will be getting HBOT Seen by Dr. Livingston - tsted + IgG for viruses. 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 Having many amalgams removed (biologic dentist) and on his protocol (DMSA), Vit C, GSE, COQ10, minerals, probiotics, EPA, GLA + DMSA 500mg, Repeat for 2 days after procedure. He has her on high dose doxy, Augmentin for 2 months then diflucan 3 days a week. ? SUBJECTIVE Patient goals: 1. Walking 2. Left hand use Subjective: Jul Visit- 61 yo female dx motor neuron dz w/ CIRS-WDB and elevated Lead by KOI ?- getting IV EDTA 9 tx. Jock itch/abd rash was 50% better w/ diflucan and then significantly improved by 3rd IV EDTA (helped biofilm) Tearful - not better and left arm is getting weak. Stopped DMSA oral but on EDTA IV weekly. Has not retested, 2 more and will have 25. Didn't get the Igenix kit done () High dose GSH made her sick for a few months, felt badly on DMSA, worse with 2 saccharomyces. NAC made her worse and too much ?? Questions - 1. Lymphatic massage? Letter written 2. Bump in finger (hurts) fluctates. -- see PCP, hasnt tried FSM 3. Possibility of Dr.Neil ponce? MTHFR SNP ? Get on Beyond Balance Tox-ease 4. If Lyme prognosis? ? ? Subjective: Apr Visit-?Patient goals: walking, hair ?? 1. Hair falling out - bothering her 2. [place] worse on Glutathione/hot bath to do RTL QUAD 3. [place] better w/ 13 EDTA, but after hot bath felt worse ?? Plan: Ox bile acids, Biotagen, Therbiotic Factor 4, Bactrim for 10 days with Saccharomyces B Stay on Hepato Ther forte, magnesium citrate/glycinate, ONE omega, PS 100, Saccharomyces, ultra nutrient ?? Rectal itching?Sweetish bitters or bETAI NE ?? February visit - 61 yo female dx motor neuron dz w/ CIRS-WDB and elevated Lead by KOI ?- getting IV EDTA 9 tx. Jock itch/abd rash was 50% better w/ diflucan and then significantly improved by IV EDTA (helped biofilm) Rectal itch - has been using coconut oil w/ clove/lemon grass, frankincense, wintergreen, oregano Also takes others orally - using DoTerra. ???Does have cervical lymph node swelling after EDTA. Started CBD December 04 - claimed to be antifungal. Leg spacticity - almost normal re:stiffness per PT (2 wks after anti-fungal tx) Stopped diflucan after 1 course 2 weeks on, 2 weeks off. ?Did 3 months of it total and would like to take a break and address w/ EDTA/EOS. Nausea - occasional ?? December visit - Spasticity better - maybe from lata tx - worse when off diflucan Joints hurt - PT says possibly due to lack of spasticity. Rash - spready off of the diflucan 5 days - may need to do diflucan 2-3 times a week ?? Todays visit?- CIR S?WDB labs consistent with mold exposure, patient to have ERMI testing done at home and work (letter provided) will consider real-time lab quad urine panel to guide treatment. ?Can start CSM currently then check marcons nasal swab and treat with begs if appropriate Lata?rash and leg spasticity improved with this will continue Diflucan 2-3 times a week. ?Typically would do weekly however patient has noticed increase in rash when off of Diflucan for 5 days Sasha U TE November 2016 mercury 14.36, lead 27.0 provoked with DMSA?start oral DMSA 3 days on 11 days off or patient can seek treatment with Dr. Paredes for IV chelation ?? Stop GI revive, VSL#3, ribose, glucosamine/boswellia Stay on UN, PS 100, sacch, ONe omega, magnesium glycinate Next visit?- ?Recheck CIRS labs 1 month of CSM full dose If can't tolerate CSM do Welchol ? Quad panel Order MARCoNS ?? November visit - Constipation much better Energy still tired Headache - still had one that took weeks until TP injection and massage Gait - no change Went to [place] and did the pool which helped her feel better this week Pelvic rash - red area Doing EMDR ?? Sep 2016 initial visit Review of Systems: See MSQ Objective: BP 127/66 Pulse 73 Ht 5' 7.5ANDquot; (1.72m) Wt 174 lb (78.9kg) BMI 26.83 kg/(m2). Component Latest Ref Rng ANDamp; Units 11/12/2017 11/12/2017 11/12/2017 11/12/2017 8:55 AM 9:30 AM 9:30 AM 9:30 AM Hb A Percent % 97.4 Hb F Percent 0.0 - 1.8 % None detected. Hb A2 Percent 1.5 - 3.5 % 2.6 Abnormal Hb % No abnormal hemoglobin identified. Interpretation (HGB ELECTRO) SEE COMMENT Hb Screen Review Reviewed by Sony Saxena MD, PhD. ([id number]) Coxsackie B Type 1 ANDlt;1:10 1:80 (A) Coxsackie B Type 2 ANDlt;1:10 1:160 (A) Coxsackie B Type 3 ANDlt;1:10 ANDgt;=1:640 (H) Coxsackie B Type 4 ANDlt;1:10 ANDgt;=1:640 (H) Coxsackie B Type 5 ANDlt;1:10 1:10 Coxsackie B Type 6 ANDlt;1:10 ANDlt;1:10 HSV IgG 1 Qualitative Negative Negative Herpes simplex 1, IgG AI ANDlt;0.2 HSV IgG 2 Qualitative Negative Negative Herpes simplex 2, IgG AI ANDlt;0.2 Rickettsia typhi, IgG ANDlt;1:64 titer ANDlt;1:64 Rickettsia typhi, IgM ANDlt;1:64 titer ANDlt;1:64 Rickettsia rickettsii, IgG ANDlt;1:64 titer ANDlt;1:64 Rickettsia rickettsii, IgM ANDlt;1:64 titer ANDlt;1:64 Influenza A Antibody ANDlt;=0.89 IV 3.71 (H) Influenza A Ab, IgM ANDlt;=0.89 IV 0.12 Influenza B Antibody ANDlt;=0.89 IV 1.77 (H) Influenza B Ab, IgM ANDlt;=0.89 IV 0.08 Testosterone ANDlt;40 ng/dL 14 Testosterone Free % 0.8 - 2.3 % 2.7 (H) Testosterone Free 1.8 - 10.4 pg/mL 3.7 Brucella abortus, IgG Negative Negative Brucella abortus, IgM Negative Negative Interpretation (Brucella Abs) (NOTE) Vitamin D 1,25 Dihydroxy D2 pg/mL ANDlt;8.0 Vitamin D 1,25 Dihydroxy D3 pg/mL 41.6 Vit D1,25 Dihydroxy 15.0 - 60.0 pg/mL 41.6 CMV IgM, Qual Negative Negative CMV Antibody, IgM AU/mL ANDlt;8.0 Hemoglobin A1C 4.3 - 5.6 % 5.3 Estimated Average Glucose mg/dL 105 EBV VCA IgG, Qual Negative Positive (A) EBV VCA, IgG AI ANDgt;8.0 EBV VCA IgM, Qual Negative Negative EBV VCA, IgM AI 0.8 HSV 1 IgM IFA Screen Negative HSV 2 IgM IFA Screen Negative Coxiella burnetii IgG, Phase 1 ANDlt;1:16 titer ANDlt;1:16 Coxiella burnetii IgG, Phase 2 ANDlt;1:16 titer ANDlt;1:16 Coxiella burnetii IgM, Phase 1 ANDlt;1:16 titer ANDlt;1:16 Coxiella burnetii IgM, Phase 2 ANDlt;1:16 titer ANDlt;1:16 F tularensis Ab, IgG ANDlt;=9 U/mL 0 F tularensis Ab, IgM ANDlt;=9 U/mL 0 Test 1 Adenovirus Antibody, Serum BABESIA SPECIES, MOLECULAR DETECTION, PCR, BLOOD BABESIA WA 1 TOXOPLASMA GONDII ANTIBODIES IGG IGM Test Results 1 Refer to supplemental report Refer to supplemental report Refer to supplemental report Refer to supplemental report Test 2 TOXOPLASMA GONDII ANTIBODY IGA BY SARAH SERUM Test Results 2 Refer to supplemental report Ammonia 11 - 51 umol/L 14 Sex Hormone Bind GLB 17 - 125 nmol/L 64 Folate ANDgt;4.7 ng/mL 18.6 Ceruloplasmin 16 - 45 mg/dL 23 Cortisol ug/dL 12.5 Magnesium 1.7 - 2.3 mg/dL 2.2 Phosphorus 2.7 - 4.8 mg/dL 3.8 DHEA-S 18.9 - 205.0 ug/dL 121.3 Estradiol 17B pg/mL ANDlt;25 Progesterone ng/mL ANDlt;0.2 Anti-Streptolysin O ANDlt;201 IU/mL ANDlt;20 Vitamin D 25 Hydroxy 31.0 - 80.0 ng/mL 33.4 Cystatin C 0.61 - 0.95 mg/L 0.86 Vitamin A 0.30 - 1.20 mg/L 0.55 MAG Ab IgM, SARAH 0 - 999 TU 0 Pregnenolone 15 - 132 ng/dL 36 Vitamin B6, Plasma 20.0 - 125.0 nmol/L 56.0 DHEA 0.630 - 4.700 ng/mL 2.030 Coxsackie A9 Ab ANDlt;1:8 ANDlt;1:8 Herpes Vir. 6 IgG Ab 1:40 (H) HHV6 Human Abs, IgM SEE NOTE MTHFR Report (NOTE) Bioelectrical Impedance Analysis Results by [employer]. Recent Results from: 09/06/16 at 10:24 AM BMI: 26.85 kg/m? General Test Result Range Phase Angle (PA) 9.2 Min: 5.8 Mean: 6.7 Max: 7.6 Basal Metabolic Rate (BMR) 1675 Min: 1172 Mean: 1327 Max: 1482 Fat ANDamp; Fat Free Mass Test Result Range Fat (lbs) 56.8 Min: 39.6 Mean: 62.2 Max: 84.8 Fat % 32 Min: 31.7 Mean: 38.3 Max: 44.9 Fat Free Mass (FFM) lbs 120.7 Min: 81.5 Mean: 95.8 Max: 110.1 Total Body Water Test Result Range TBW (lbs) 89.8 Min: 60.9 Mean: 71.7 Max: 82.5 TBW % of FFM 74.4 Min: 73.2 Mean: 74.7 Max: 76.2 Intracellular Water Test Result Range ICW (lbs) 47.3 Min: 33.1 Mean: 37.7 Max: 42.3 ICW % of FFM 39.2 Min: 38 Mean: 39.5 Max: 41 Extracellular Water Test Result Range ECW (lbs) 42.5 Min: 27.6 Mean: 34 Max: 40.4 ECW % of FFM 35.2 Min: 33.5 Mean: 35.2 Max: 36.9 Physical Exam: alert, well NAD, well groomed PREVIOUS Functional Diagnostic Assessment Magnesium Citrate 150mg BID Stress, blood sugar, thyroid/hormones/adrenals/sleep/energy/toxins/muscles/constipation/asthma Sig: Work up to 2-3 twice a day. - back off if loose stools Refill: 0 Meriva-SR (Nathaniel) decrease inflammation/pain/gut healing Sig: Take 1-2 capsules two times daily Refill: 0 Nrf2 Activator (Xymogen) Sig: Take 4 capsules in the evening before bed. Refill: 0 thyroid, pork, (NATURE-THROID) 97.5 mg tab Sig: Take 1 tablet by mouth once daily. Dispense: 30 tablet Refill: 3 UltraNutrient (Pure Encapsulations) 3BID Multi-vitamin/coq10/milk thistle/turmeric/janey/alphalipoic acid/B complex Si capsules twice a day with meals Refill: 0 ? Additional Recommendations Today's plan - reviewed [place] High dose GSH made her sick for a few months, felt badly on DMSA, worse with 2 saccharomyces C/w mold -gliotoxin gentle treatment C/w Dr. 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 Mold exposure in her work bldg Stress - full prof [facility], good repuation, Reprimanded for a good deed then had to keep working with the person who betrayed her - occurred prior to the Motor neuron disorder ?MSIDS 65 ?? Jul 2017 visit- Today's plan - reviewed [place] High dose GSH made her sick for a few months, felt badly on DMSA, worse with 2 saccharomyces C/w mold -gliotoxin gentle treatment Tx: Dr. Damon w/ EDTA IV Nutritional Assessment Nutreval Jun 2017 Most high need, high lipid peroxides/8OHDG Plan: Ultranutrient ? Digestive Function GERD improved w/diet (no sugar) Constipation - better off diflucan GI effects March 2017 - Dysbiosis Elevated fecal fat/LCF A, cluster O, phospholipids as per Very low short-chain fatty acids Commensal bacteria?18 of 23 elevated with high Lactobacillus and Escherichia coli, low bifidobacterium Additional bacteria Bacillus species 4+, Klebsiella pneumonia 4+ both sensitive to Bactrim Plan: Ox bile acids, Biotagen, Therbiotic Factor 4, Bactrim for 10 days with Saccharomyces B ?? 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 Energy Production Motor neuron disorder - leg weakness Fatigue - better with B12 shots Foot/calf cramps ?? Detoxification Function WOLFF Many amalgams 2017 KOI repeat compared to November 2016 after 13 IV EDTA?lead dropped from 27--ANDgt;10.2, mercury increased from 14.36 --ANDgt;?19.73 (patient felt good on EDTA and rash cleared) Tx: Dr. Damon w/ EDTA IV ? Hormonal Assessment Insomnia - hot flash 5am Hot flashes - black cohosh helps the intensity Hypothyroid dt cancer - brittle nails Postmenopausal - Address w/ Dr. Livingston ?? Structural Assessment OA knees Swollen ankles LIFESTYLE PRESCRIPTION Functional Nutrition: Per CFM RD Sleep: No chg Exercise Prescription: no chg Stress Management: No chg Medication orders placed this encounter Querctin and Abbie ((600mg each) [employer]s for [employer]) Sig: take three capsules daily with meals Refill: 0 Additional Recommendations Today's plan - reviewed [facility] [facility] Leanna ISAAC note Postmenopausal - Address w/ Dr. Livingston Cough - try Quercitin On AA powder from [facility] Maynard and NAD CIRS - was sick with gordy, On Argentyn Next visit?- ? address mold? Order BEGs and nystatin nasal spray ???Beyond Balance Tox-ease ??add ?glutamine Future? 23ANDamp;me, BHRT ?? Treatments: (binders--ANDgt;argentyn nasal spray 1 spray BID--ANDgt;BEGS (nasal biofilm) ----ANDgt;antifungal nasal spray (nystatin, keto, or AMB)--ANDgt;NAC(250-500mg oral QD or BID)--ANDgt;oral antifungal(,000 u orally, 1-4x a day, diflucan 100mg once every OTHER week)?--ANDgt;?oral biofilm buster Instructions ANDamp; Resources Return in 4 months with me. Do hyperbarics and consider infrared sauna Time with patient: 45 minutes spent with the patient ANDgt;50% counseling regarding diagnoses above. Parts of this note have been dictated. Sara Chin, DO Sara Chin DO 12/11/2017 2:18 PM Signed Medication orders placed this encounter Querctin and Abbie ((600mg each) [employer]) Sig: take three capsules daily with meals Refill: 0 Additional Recommendations Today's plan - reviewed Oct 2017[place] [facility]. Leanna ISAAC note Postmenopausal - Address w/ Dr. Livingston Cough - try Quercitin On AA powder from [facility] Maynard and NAD CIRS - was sick with gordy, On Argentyn Next visit?- ? address mold? Order BEGs and nystatin nasal spray ???Beyond Balance Tox-ease ??add ?glutamine Future? 23ANDamp;me, BHRT ?? Treatments: (binders--ANDgt;argentyn nasal spray 1 spray BID--ANDgt;BEGS (nasal biofilm) ----ANDgt;antifungal nasal spray (nystatin, keto, or AMB)--ANDgt;NAC(250-500mg oral QD or BID)--ANDgt;oral antifungal(pyvalkse324,000 u orally, 1-4x a day, diflucan 100mg once every OTHER week)?--ANDgt;?oral biofilm buster Instructions ANDamp; Resources Return in 4 months with me. 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 * OTC NUTRITIONAL SUPPLEMENT 3 capsules twice a day with m* OTC NUTRITIONAL SUPPLEMENT Take 1-2 capsules two times d* OTC NUTRITIONAL SUPPLEMENT Take 1 capsule by mouth w ISAI* OTC NUTRITIONAL SUPPLEMENT Add 60 drops to a small amoun* OTC NUTRITIONAL SUPPLEMENT Take 1 capsule twice daily, b* SUCCIMER (BULK) 98 % POWDER Take 3 500mg tabs after First* SULFAMETHOXAZOLE 800 MG-TRIME* Take 1 tablet by mouth twice * OTC NUTRITIONAL SUPPLEMENT 4 capsules once or twice daryl* OTC NUTRITIONAL SUPPLEMENT Take 1 capsule by mouth once * MEDICATION, NON-DATABASE CBD Oil 10mg twice daily SUCCIMER (BULK) 98 % POWDER Take 3 500mg tabs after First* OTC NUTRITIONAL SUPPLEMENT Work up to 2-3 twice a day. * OTC NUTRITIONAL SUPPLEMENT Take 1 capsule by mouth three* OTC NUTRITIONAL SUPPLEMENT Take 1 capsule by mouth once * OTC NUTRITIONAL SUPPLEMENT Take 2 capsules by mouth once* OTC NUTRITIONAL SUPPLEMENT 3 capsules daily, in divided * OTC NUTRITIONAL SUPPLEMENT Work up to 2-3 twice a day. 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] INVALID FOR* CHOLELITH W CHOLECYS NEC [K80.10] INVALID FOR* GASTRITIS ANTRAL( W/O Hemorrhage) [K29.60] INVALID FOR* SPRAIN SHOULDER/ARM NOS [S43.409A, S46.919A] INVALID FOR* FX PHALANX, FOOT-CLOSED [S92.919A] INVALID FOR* DYSMETABOLIC SYNDROME X [E88.81] INVALID FOR* SPRAIN NOS [T14.8XXA] INVALID FOR* Congenital pes planus [Q66.50] INVALID FOR* Skin lesion [L98.9] INVALID FOR* Other musculoskeletal symptoms referable to anna*INVALID FOR* Special screening for malignant neoplasms, colo*INVALID FOR* Dysphagia, unspecified(787.20) [R13.10] INVALID FOR* 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] INVALID FOR* GERD without esophagitis [K21.9] INVALID FOR* History of thyroid cancer [Z85.850] INVALID FOR* Hypothyroidism [E03.9] INVALID FOR* Foot cramps [R25.2] INVALID FOR* Menopausal and postmenopausal disorder [N95.9] INVALID FOR* Fatigue [R53.83] INVALID FOR* Vitamin D deficiency [E55.9] INVALID FOR* Rectal itching [L29.0] INVALID FOR* Other instructions from your clinician: Medication orders placed this encounter Querctin and Abbie ((600mg each) [employer]) Sig: take three capsules daily with meals Refill: 0 Additional Recommendations Today's plan - reviewed Oct 2017[place] [facility] Leanna ISAAC note Postmenopausal - Address w/ Dr. Livingston Cough - try Quercitin On AA powder from [facility] Maynard and NAD CIRS - was sick with gordy, On Argentyn Next visit?- ? address mold? Order BEGs and nystatin nasal spray ???Beyond Balance Tox-ease ??add ?glutamine Future? 23ANDme, BHRT ?? Treatments: (binders-->argentyn nasal spray 1 spray BID-->BEGS (nasal biofilm) ---->antifungal nasal spray (nystatin, keto, or AMB)-->NAC(250-500mg oral QD or BID)-->oral antifungal(xsrlybcz597,000 u orally, 1-4x a day, diflucan 100mg once every OTHER week)?-->?oral biofilm buster Instructions AND Resources Return in 4 months with me. Do hyperbarics and consider infrared sauna Prescriptions ordered this encounter Disp Refills Start End OTC NUTRITIONAL SUPPLEMENT 0 12/11/2017 Class: OTC Sig: take three capsules daily with meals Encounter Status:Closed by SARA CHIN on 12/11/17 ANTI-STREPTOLYSIN O Collected: Status: F Source: [place] 11/12/2017 9:30 AM CLINIC REFERENCE REPOSITORY TYPE CODE TESTS RESULT OUT OF RANGE REFERENCE UNITS LAB ASO(LOINC) <201 IU/mL <20 Anti-Strepto lysin O Performed By: #### ASO #### [facility] Routine Lab [address] [place], [place] [address] MISC SEND OUT TEST Collected: 11/12/2017 Status: C Source: [place] 9:30 AM CLINIC REFERENCE REPOSITORY TYPE CODE TESTS RESULT OUT OF RANGE REFERENCE UNITS LAB NAME1(LOINC ) Test Result Comment: BABESIA Corrected on 11/16 AT 1427: Previously reported as BABESIA MO 1 SPECIES, Corrected on 11/16 AT 1427: Previously reported as BABESIA MO 1 MOLECULAR Corrected on 11/16 AT 1427: Previously reported as BABESIA MO 1 DETECTION, PCR, Corrected on 11/16 AT 1427: Previously reported as BABESIA MO 1 BLOOD Corrected on / AT 1427: Previously reported as BABESIA MO 1 LAB RESU1(LOINC) Test Results Result Comment: Refer to supplemental report Faxed to [phone] Test performed by: [place], [place] Performed By: #### [id number] #### [facility] Reference [address] [place], [place] [address] MTHFR GENE ANALYSIS Collected: 11/12/2017 Status: F Source: [place] 9:30 AM [facility] REFERENCE REPOSITORY TYPE CODE TESTS RESULT OUT OF REFERENCE UNITS RANGE LAB MTHINT(LOIN C) MTHF Report Result Comment: (NOTE) Performing Pathologist: Rosa Méndez M.D., Ph.D. RESULT: c.665C>T (p.Xob952Gse)(historicallythermolabile,C677T): NOT DETECTED c.1286A>C (p.Gea752Box) (historically [id number]): HETEROZYGOUS INTERPRETATION: The above genotype is unlikely to have clinical significance. Our interpretation is based on the current understanding of MTHFR genetics and clinical correlation is indicated. DETAILS: The frequency of the MTHFR polymorphic variants is subject to considerable ethnic and geographic variation. Forty to fifty percent ( 40-50%) of individuals of Northern ancestry have one copy of either the MTHFR c.665C>T or c.1286A>C variant. It is estimated that >25% of Hispanics and 10-15% of [place] Caucasians are homozygous for the c.665C>T variant. In general, the following 5,10-methylenetetrahydrofolate reductase (MTHFR) variants are currently considered unlikely to be of clinical significance: 1) c.665C>T heterozygote, 2) c.1286A>C homozygote, or 3) c.665C>T and c.1286A>C compound heterozygote. In individuals who have a known thrombophilia, such as factor V Leiden or prothrombin c.97G>A, most available studies support the contention that MTHFR genotype status does not alter their thrombotic risk to a clinically significant degree. The [place] [employer] 2013 Practice Guideline references the limited clinical utility of MTHFR variant analysis, therefore this testing should not be ordered as a part of a routine evaluation for thrombophilia. METHOD: Patient DNA is assayed for J5395S and C677T point mutations in the MTHFR gene by LightMix? technology, consisting of polymerase chain reaction (PCR) followed by melting curve analysis. This test was developed and its performance characteristics determined by [facility] [place] ([facility]). It has not been cleared or approved by the FDA. [facility] is regulated under CLIA as qualified to perform high-complexity testing. This test is used for clinical purpose. It should not be regarded as investigational or for research. LIMITATIONS: Only the above specified sequence variants were assayed in this test. Other sequence variants in MTHFR or other genes that may cause increased homocysteine levels cannot be ruled out. Cardiovascular disease and venous thrombosis are multifactorial disorders, and other causes of these disorders are not excluded by this test. REFERENCES De Jean Paul V, Ike I, Ping E, Wesley BJayjay. Interaction between hyperhomocysteinemia and inherited thrombophilic factors in venous thromboembolism. Semin Thromb Hemost 2000;26:305?311. [place] SE, Arias CJ, Darlene HV. ACMG Practice Guideline: lack of evidence for MTHFR polymorphism testing. Diamond Med 2013:15(2):153?156. Jessica Haile, Eugenio Flores; Committee on Practice Bulletins?Obstetrics. Practice Bulletin no. 124: Inherited thrombophilias in . Obstet Gynecol 2011;118(3):730?740. OMIM. 5,10-Methylenetetrahydrofolate Reductase; MTHFR. http://omim.org/entry/515687 Rhett Rasheed. Should the MTHFR 1298A>C polymorphism be considered in the clinical evaluation of patients at risk for thrombotic disease? Diamond Kna3443;7(9):655. Rhett Rasheed, Marika Khalil, Torri'Edson Khalil, Palmsteff M, Rylois L, Keke K. No association between the MTHFR J4452B and transcobalamin C776G genetic polymorphisms and hyperhomocysteinemia in thrombotic disease. Thromb Uqe6396;108:127?131. eSensor Thrombophilia Risk Test Product Insert. [employer]. [place], [place] This test was developed and manufactured by [employer] as a U.S. Food and Drug Administration approved In Vitro Diagnostics (IVD) test. Its performance characteristics for clinical usage have been determined by the Pathology and Laboratory [facility] [place] at the [facility] according to the [employer]Welcome instruction. [facility] SEND OUT TEST Collected: 11/12/2017 Status: C Source: [place] 9:30 AM CLINIC REFERENCE REPOSITORY TYPE CODE TESTS RESULT OUT OF RANGE REFERENCE UNITS LAB NAME1(LOINC ) Test Result Comment: TOXOPLASMA Corrected on 11/14 AT 2358: Previously reported as TOXOPLASMA GONDII IGG IGM IGA GONDII Corrected on 11/14 AT 2358: Previously reported as TOXOPLASMA GONDII IGG IGM IGA ANTIBODIES IGG Corrected on 11/14 AT 2358: Previously reported as TOXOPLASMA GONDII IGG IGM IGA IGM Corrected on 11/14 AT 2358: Previously reported as TOXOPLASMA GONDII IGG IGM IGA LAB RESU1(LOINC) Test Results Result Comment: Refer to supplemental report Faxed to [phone] Performed at [facility], [place], [place] Performed By: #### [id number] #### [facility] Reference [address] [place] [address] AMMONIA Collected: 11/12/2017 Status: F Source: [place] 8:55 AM [facility] REFERENCE REPOSITORY TYPE CODE TESTS RESULT OUT OF REFERENCE UNITS RANGE LAB NH3(LOINC) 11-51 umol/L Ammonia 14 Performed By: #### NH3, SHBG2, FTESTO, SERFOL, CERULO, MG1, PHOS, DHEAS, E2, PROG, CMVMAB, HBA1C, VITD, EBVG, EBVM, HSVG12 #### [facility] Routine Lab [address] [place] [phone] #### COR #### [facility] Immuno Assay [address] [place] [phone] #### HBELEC #### [facility] Hematology [address] [place] [phone] #### NATE, 125VTD #### [facility] Chemistry [address] [place] [phone] #### [id number] #### [facility] Reference [address] [place] [phone] SEX HORMONE BIND GLB Collected: 11/12/2017 Status: F Source: [place] 8:55 [facility] REFERENCE REPOSITORY TYPE CODE TESTS RESULT OUT OF REFERENCE UNITS RANGE LAB SHBG2(LOINC 17-125 nmol/L ) Sex Hormone 64 Bind Glb Performed By: #### NH3, SHBG2, FTESTO, SERFOL, CERULO, MG1, PHOS, DHEAS, E2, PROG, CMVMAB, HBA1C, VITD, EBVG, EBVM, HSVG12 #### [facility] Routine Lab [address] [place] [phone] #### COR #### [facility] Immuno Assay [address] [place] [phone] #### HBELEC #### [facility] Hematology [address] [place] [phone] #### NATE, 125VTD #### [facility] Chemistry [address] [place], [place] [address] #### [id number] #### [facility] Reference [address] [place], [place] [address] FREE TESTOSTERONE Collected: 11/12/2017 Status: F Source: [place] 8:55 AM CLINIC REFERENCE REPOSITORY TYPE CODE TESTS RESULT OUT OF REFERENCE UNITS RANGE LAB TESTO(LOIN <40 ng/dL C) Testosterone 14 LAB FREE(LOINC 0.8-2.3 % ) Free High Testosterone % 2.7 LAB FRTSTO(AUDRA 1.8-10.4 pg/mL NC) Free Testosterone 3.7 Performed By: #### NH3, SHBG2, FTESTO, SERFOL, CERULO, MG1, PHOS, DHEAS, E2, PROG, CMVMAB, HBA1C, VITD, EBVG, EBVM, HSVG12 #### [facility] Routine Lab [address] [place], [place] [address] #### COR #### [facility] Immuno Assay [address] [place] [phone] #### HBELEC #### [facility] Hematology [address] [place], [place] [address] #### NATE, 125VTD #### [facility] Chemistry [address] [place], [place] [address] #### [id number] #### [facility] Reference [address] [place] [phone] FOLATE, SERUM Collected: 11/12/2017 Status: F Source: [place] 8:55 AM CLINIC REFERENCE REPOSITORY TYPE CODE TESTS RESULT OUT OF RANGE REFERENCE UNITS LAB SERFOL(LOIN >4.7 ng/mL C) Folate, 18.6 Serum Performed By: #### NH3, SHBG2, FTESTO, SERFOL, CERULO, MG1, PHOS, DHEAS, E2, PROG, CMVMAB, HBA1C, VITD, EBVG, EBVM, HSVG12 #### [facility] Routine Lab [address] [place] [phone] #### COR #### [facility] Immuno Assay [address] [phone] #### HBELEC #### [facility] Hematology [address] [place] [phone] #### NATE, 125VTD #### [facility] Chemistry [address] [place] [phone] #### [id number] #### [facility] Reference [address] [place] [phone] CERULOPLASMIN Collected: 11/12/2017 Status: F Source: [place] 8:55 CLINIC REFERENCE REPOSITORY TYPE CODE TESTS RESULT OUT OF REFERENCE UNITS RANGE LAB CERULO(AUDRA 16-45 mg/dL NE) Ceruloplasmin 23 Performed By: #### NH3, SHBG2, FTESTO, SERFOL, CERULO, MG1, PHOS, DHEAS, E2, PROG, CMVMAB, HBA1C, VITD, EBVG, EBVM, HSVG12 #### [facility] Routine Lab [address] [place] [phone] #### COR #### [facility] Immuno Assay [address] [place] [phone] #### HBELEC #### [facility] Hematology [address] [phone] #### NATE, 125VTD #### [facility] Chemistry [address] [place] [phone] #### [id number] #### [facility] Reference [address] [place] [address] CORTISOL Collected: 11/12/2017 Status: F Source: [place] 8:55 AM [facility] REFERENCE REPOSITORY TYPE CODE TESTS RESULT OUT OF REFERENCE UNITS RANGE LAB COR(LOINC) ug/dL Cortisol 12.5 Performed By: #### NH3, SHBG2, FTESTO, SERFOL, CERULO, MG1, PHOS, DHEAS, E2, PROG, CMVMAB, HBA1C, VITD, EBVG, EBVM, HSVG12 #### [facility] [facility] Routine Lab [address] [phone] #### COR #### [facility] Immuno Assay [address] [place], [place] [phone] #### HBELEC #### [facility] Hematology [address] [place], [place] [address] #### NATE, 125VTD #### [facility] Chemistry [address] [place], [place] [address] #### [id number] #### [facility] Reference [address] [place] [phone] MAGNESIUM Collected: 11/12/2017 Status: F Source: [place] 8:55 AM [facility] REFERENCE REPOSITORY TYPE CODE TESTS RESULT OUT OF REFERENCE UNITS RANGE LAB MG(LOINC) 1.7-2.3 mg/dL Magnesium 2.2 Performed By: #### NH3, SHBG2, FTESTO, SERFOL, CERULO, MG1, PHOS, DHEAS, E2, PROG, CMVMAB, HBA1C, VITD, EBVG, EBVM, HSVG12 #### [facility] Routine Lab [address] [place], [place] [phone] #### COR #### [facility] Immuno Assay [address] [place], [place] [phone] #### HBELEC #### [facility] Hematology [address] [place], [place] [phone] #### NATE, 125VTD #### [facility] Chemistry [address] [place] [phone] #### [id number] #### [facility] Reference [address] [place] [phone] PHOSPHORUS Collected: 11/12/2017 Status: F Source: [place] 8:55 AM [facility] REFERENCE REPOSITORY TYPE CODE TESTS RESULT OUT OF REFERENCE UNITS RANGE LAB PHOS(LOINC 2.7-4.8 mg/dL ) Phosphorus 3.8 Performed By: #### NH3, SHBG2, FTESTO, SERFOL, CERULO, MG1, PHOS, DHEAS, E2, PROG, CMVMAB, HBA1C, VITD, EBVG, EBVM, HSVG12 #### [facility] Routine Lab [address] [place] [phone] #### COR #### [facility] Immuno Assay [address] [place] [phone] #### HBELEC #### [facility] Hematology [address] [place] [phone] #### NATE, 125VTD #### [facility] Chemistry [address] [place] [phone] #### [id number] #### [facility] Reference [address] [place] [phone] DHEA-S Collected: 11/12/2017 Status: F Source: [place] 8:55 [facility] REFERENCE REPOSITORY TYPE CODE TESTS RESULT OUT OF RANGE REFERENCE UNITS LAB DHEAS(LOINC 18.9-205.0 ug/dL ) DHEA-S 121.3 Performed By: #### NH3, SHBG2, FTESTO, SERFOL, CERULO, MG1, PHOS, DHEAS, E2, PROG, CMVMAB, HBA1C, VITD, EBVG, EBVM, HSVG12 #### [facility] Routine Lab [address] [place] [phone] #### COR #### [facility] Immuno Assay [address] [place], [place] [phone] #### HBELEC #### [facility] Hematology [address] [place], [place] [address] #### NATE, 125VTD #### [facility] Chemistry [address] [place] [address] #### [id number] #### [facility] Reference [address] [place] [phone] ESTRADIOL-17B Collected: 11/12/2017 Status: F Source: [place] 8:55 AM [facility] REFERENCE REPOSITORY TYPE CODE TESTS RESULT OUT OF RANGE REFERENCE UNITS LAB E2(LOINC) pg/mL <25 Estradiol-17 B Performed By: #### NH3, SHBG2, FTESTO, SERFOL, CERULO, MG1, PHOS, DHEAS, E2, PROG, CMVMAB, HBA1C, VITD, EBVG, EBVM, HSVG12 #### [facility] Routine Lab [address] [place] [phone] #### COR #### [facility] Immuno Assay [address] [place], [place] [address] #### HBELEC #### [facility] Hematology [address] [place], [place] [phone] #### NATE, 125VTD #### [facility] Chemistry [address] [place] [phone] #### [id number] #### [facility] Reference [address] [place] [phone] PROGESTERONE Collected: 11/12/2017 Status: F Source: [place] 8:55 AM [facility] REFERENCE REPOSITORY TYPE CODE TESTS RESULT OUT OF REFERENCE UNITS RANGE LAB PROG(LOINC ng/mL ) Progesterone <0.2 Performed By: #### NH3, SHBG2, FTESTO, SERFOL, CERULO, MG1, PHOS, DHEAS, E2, PROG, CMVMAB, HBA1C, VITD, EBVG, EBVM, HSVG12 #### [facility] Routine Lab [address] [address] #### COR #### [facility] Immuno Assay [address] [phone] #### HBELEC #### [facility] Hematology [address] [phone] #### NATE, 125VTD #### [facility] Chemistry [address] [place] [phone] #### [id number] #### [facility] Reference [address] [place] [phone] CMV IGM ANTIBODY Collected: 11/12/2017 Status: F Source: [place] 8:55 AM [facility] REFERENCE REPOSITORY TYPE CODE TESTS RESULT OUT OF REFERENCE UNITS RANGE LAB CMVMR(LOIN Negative C) CMV IgM, Qual Negative LAB CMVM(LOINC AU/mL ) CMV IgM <8.0 Antibody Performed By: #### NH3, SHBG2, FTESTO, SERFOL, CERULO, MG1, PHOS, DHEAS, E2, PROG, CMVMAB, HBA1C, VITD, EBVG, EBVM, HSVG12 #### [facility] Routine Lab [address] [phone] #### COR #### [facility] Immuno Assay [address] [phone] #### HBELEC #### [facility] Hematology [address] [phone] #### NATE, 125VTD #### [facility] Chemistry [address] [phone] #### [id number] #### [facility] Reference [address] [place] [id number] HEMOGLOBIN A1C Collected: 11/12/2017 Status: F Source: [place] 8:55 AM [facility] REFERENCE REPOSITORY TYPE CODE TESTS RESULT OUT OF REFERENCE UNITS RANGE LAB HGBA1C(AUDRA 4.3-5.6 % NC) Hemoglobin A1c 5.3 LAB HBA0(LOINC mg/dL ) Est. Average Glucose 105 Performed By: #### NH3, SHBG2, FTESTO, SERFOL, CERULO, MG1, PHOS, DHEAS, E2, PROG, CMVMAB, HBA1C, VITD, EBVG, EBVM, HSVG12 #### [facility] Routine Lab [address] [place] [phone] #### COR #### [facility] Immuno Assay [address] [place] [address] #### HBELEC #### [facility] Hematology [address] [place] [address] #### NATE, 125VTD #### [facility] Chemistry [address] [place], [place] [address] #### [id number] #### [facility] Reference [address] [place], [place] [phone] VITAMIN D 25 HYDROXY Collected: 11/12/2017 Status: F Source: [place] 8:55 AM [facility] REFERENCE REPOSITORY TYPE CODE TESTS RESULT OUT OF REFERENCE UNITS RANGE LAB VITD(LOINC) 31.0-80.0 ng/mL Vitamin D 25 33.4 Hydroxy Performed By: #### NH3, SHBG2, FTESTO, SERFOL, CERULO, MG1, PHOS, DHEAS, E2, PROG, CMVMAB, HBA1C, VITD, EBVG, EBVM, HSVG12 #### [facility] Routine Lab [address] [place], [place] [phone] #### COR #### [facility] Immuno Assay [address] [place] [address] #### HBELEC #### [facility] Hematology [address] [place], [place] [phone] #### NATE, 125VTD #### [facility] Chemistry [address] [place] [address] #### [id number] #### [facility] Reference [address] [place] [address] HGB ELECTROPHORESIS Collected: 11/12/2017 Status: F Source: [place] 8:55 AM [facility] REFERENCE REPOSITORY TYPE CODE TESTS RESULT OUT OF REFERENCE UNITS RANGE LAB HBAPER(AUDRA % NC) Hb A Percent 97.4 LAB HBFPER(AUDRA 0.0-1.8 % NC) Hb F Percent ND LAB HBA2PE(AUDRA 1.5-3.5 % NC) Hb A2 Percent 2.6 LAB ABNHB(LOIN % C) Abnormal Hemoglobin NOAHID LAB HBINT(LOIN C) Interpretation Result Comment: Hemoglobins were analyzed by capillary electrophoresis. Normal pattern LAB HBSREV(LOINC) Staff Review SAXENA Performed By: #### NH3, SHBG2, FTESTO, SERFOL, CERULO, MG1, PHOS, DHEAS, E2, PROG, CMVMAB, HBA1C, VITD, EBVG, EBVM, HSVG12 #### [facility] Routine Lab [address] [place] [phone] #### COR #### [facility] Immuno Assay [address] [place] [phone] #### HBELEC #### [facility] Hematology [address] [place] [phone] #### NATE, 125VTD #### [facility] Chemistry [address] [place] [phone] #### [id number] #### [facility] Reference [address] [place] [phone] EBV IGG ANTIBODY Collected: 11/12/2017 Status: F Source: [place] 8:55 AM [facility] REFERENCE REPOSITORY TYPE CODE TESTS RESULT OUT OF RANGE REFERENCE UNITS LAB EBVGQ(LOIN Negative C) Abnormal EBV Positive VCA IgG, Qual LAB EBVGX(LOIN AI C) EBV >8.0 VCA IgG Performed By: #### NH3, SHBG2, FTESTO, SERFOL, CERULO, MG1, PHOS, DHEAS, E2, PROG, CMVMAB, HBA1C, VITD, EBVG, EBVM, HSVG12 #### [facility] Routine Lab [address] [place] [phone] #### COR #### [facility] Immuno Assay [address] [place], [place] [address] #### HBELEC #### [facility] Hematology [address] [place], [place] [address] #### NATE, 125VTD #### [facility] Chemistry [address] [place], [place] [address] #### [id number] #### [facility] Reference [address] [place], [place] [address] EBV IGM ANTIBODY Collected: 11/12/2017 Status: F Source: [place] 8:55 [facility] REFERENCE REPOSITORY TYPE CODE TESTS RESULT OUT OF REFERENCE UNITS RANGE LAB EBVMQ(LOINC Negative ) EBV VCA Negative IgM, Qual LAB EBVMX(LOINC AI ) EBV VCA 0.8 IgM Performed By: #### NH3, SHBG2, FTESTO, SERFOL, CERULO, MG1, PHOS, DHEAS, E2, PROG, CMVMAB, HBA1C, VITD, EBVG, EBVM, HSVG12 #### [facility] Routine Lab [address] [place] [phone] #### COR #### [facility] Immuno Assay [address] [place], [place] [phone] #### HBELEC #### [facility] Hematology [address] [place], [place] [phone] #### NATE, 125VTD #### [facility] Chemistry [address] [place], [place] [address] #### [id number] #### [facility] Reference [address] [phone] HSVG TYP 1 AND 2 Collected: 11/12/2017 Status: F Source: [facility] 8:55 AM [facility] REFERENCE REPOSITORY TYPE CODE TESTS RESULT OUT OF REFERENCE UNITS RANGE LAB HSVG1L(AUDRA Negative NC) HSV IgG 1 Qualitative Negative LAB HSVG1(LOIN AI C) Herpes Simplex IgG 1 <0.2 LAB HSVG2L(AUDRA Negative NC) HSV IgG 2 Qualitative Negative LAB HSVG2(LOIN AI C) Herpes Simplex IgG 2 <0.2 Performed By: #### NH3, SHBG2, FTESTO, SERFOL, CERULO, MG1, PHOS, DHEAS, E2, PROG, CMVMAB, HBA1C, VITD, EBVG, EBVM, HSVG12 #### [facility] Routine Lab [address] [place] [phone] #### COR #### [facility] Immuno Assay [address] [place] [phone] #### HBELEC #### [facility] Hematology [address] [place] [phone] #### NATE, 125VTD #### [facility] Chemistry [address] [place] [phone] #### [id number] #### [facility] Reference [address] [place] [phone] CYSTATIN C Collected: 11/12/2017 Status: F Source: [place] 8:55 [facility] REFERENCE REPOSITORY TYPE CODE TESTS RESULT OUT OF REFERENCE UNITS RANGE AOF CYSC(LOINC) 0.61-0.95 mg/L Cystatin C 0.86 Performed By: #### NH3, SHBG2, FTESTO, SERFOL, CERULO, MG1, PHOS, DHEAS, E2, PROG, CMVMAB, HBA1C, VITD, EBVG, EBVM, HSVG12 #### [facility] Routine Lab [address] [phone] #### COR #### [facility] Immuno Assay [address] [phone] #### HBELEC #### [facility] Hematology [address] [place] [phone] #### NATE, 125VTD #### [facility] Chemistry [address] [place] [phone] #### [id number] #### [facility] Reference [address] [place] [phone] VITAMIN A Collected: 11/12/2017 Status: F Source: [place] 8:55 [facility] REFERENCE REPOSITORY TYPE CODE TESTS RESULT OUT OF REFERENCE UNITS RANGE LAB NATE(LOINC) 0.30-1.20 mg/L Vitamin A 0.55 Performed By: #### NH3, SHBG2, FTESTO, SERFOL, CERULO, MG1, PHOS, DHEAS, E2, PROG, CMVMAB, HBA1C, VITD, EBVG, EBVM, HSVG12 #### [facility] Routine Lab [address] [place] [phone] #### COR #### [facility] Immuno Assay [address] [place] [phone] #### HBELEC #### [facility] Hematology [address] [place] [phone] #### NATE, 125VTD #### [facility] Chemistry [address] [place] [phone] #### [id number] #### [facility] Reference [address] [place] [phone] BRUCELLA ABS IGG,IGM Collected: 11/12/2017 Status: F Source: [place] 8:55 CLIN[facility] REFERENCE REPOSITORY TYPE CODE TESTS RESULT OUT OF REFERENCE UNITS RANGE LAB BRUABG(LOIN Negative C) Brucella NEGATA abortus IgG LAB BRUABM(LOIN Negative C) Brucella NEGATA abortus IgM LAB BRUINT(LOIN C) Brucella Abs Interp Result Comment: (NOTE) Recommend repeat testing in 14-21 days if recent infection is suspected. Performed By: #### NH3, SHBG2, FTESTO, SERFOL, CERULO, MG1, PHOS, DHEAS, E2, PROG, CMVMAB, HBA1C, VITD, EBVG, EBVM, HSVG12 #### [facility] Routine Lab [address] [place] [phone] #### COR #### [facility] Immuno Assay [address] [place], [place] [phone] #### HBELEC #### [facility] Hematology [address] [place], [place] [address] #### NATE, 125VTD #### [facility] Chemistry [address] [place], [place] [address] #### [id number] #### [facility] Reference [address] [place] [phone] MAG AB,IGM Collected: 11/12/2017 Status: F Source: [place] 8:55 [facility] REFERENCE REPOSITORY TYPE CODE TESTS RESULT OUT OF RANGE REFERENCE UNITS LAB PINKY(LOIN 0-999 TU C) MAG 0 AB,IGM SARAH Performed By: #### NH3, SHBG2, FTESTO, SERFOL, CERULO, MG1, PHOS, DHEAS, E2, PROG, CMVMAB, HBA1C, VITD, EBVG, EBVM, HSVG12 #### [facility] Routine Lab [address] [place] [phone] #### COR #### [facility] Immuno Assay [address] [place], [place] [phone] #### HBELEC #### [facility] Hematology [address] [place], [place] [phone] #### NATE, 125VTD #### [facility] Chemistry [address] [place] [phone] #### [id number] #### [facility] Reference [address] [place] [phone] INFLUENZA A AND B AB Collected: 11/12/2017 Status: F Source: [place] 8:55 AM [facility] REFERENCE REPOSITORY TYPE CODE TESTS RESULT OUT OF REFERENCE UNITS RANGE LAB FLUACF(AUDRA <=0.89 IV NC) High Influenza A 3.71 Antibody IgG LAB FLUAM(LOIN <=0.89 IV C) Influenza A Ab 0.12 IgM LAB FLUBCF(AUDRA <=0.89 IV NC) High Influenza B 1.77 Antibody IgG LAB FLUBM(LOIN <=0.89 IV C) Influenza B Ab 0.08 IgM Performed By: #### NH3, SHBG2, FTESTO, SERFOL, CERULO, MG1, PHOS, DHEAS, E2, PROG, CMVMAB, HBA1C, VITD, EBVG, EBVM, HSVG12 #### [facility] Routine Lab [address] [place] [phone] #### COR #### [facility] Immuno Assay [address] [place] [phone] #### HBELEC #### [facility] Hematology [address] [place] [phone] #### NATE, 125VTD #### [facility] Chemistry [address] [place] [phone] #### [id number] #### [facility] Reference [address] [place] [phone] HSV 1/2 IGM IFA Collected: 11/12/2017 Status: F Source: [place] 8:55 [facility] REFERENCE REPOSITORY TYPE CODE TESTS RESULT OUT OF REFERENCE UNITS RANGE AOF HSV1IF(LOIN C) HSV 1 IgM NEGAT IFA Screen AOF HSV2IF(LOIN C) HSV 2 IgM Negative IFA Screen Performed By: #### NH3, SHBG2, FTESTO, SERFOL, CERULO, MG1, PHOS, DHEAS, E2, PROG, CMVMAB, HBA1C, VITD, EBVG, EBVM, HSVG12 #### [facility] Routine Lab [address] [place] [phone] #### COR #### [facility] Immuno Assay [address] [place] [phone] #### HBELEC #### [facility] Hematology [address] [place], [place] [address] #### NATE, 125VTD #### [facility] Chemistry [address] [place], [place] [address] #### [id number] #### [facility] Reference [address] [place] [phone] PREGNENOLONE Collected: 11/12/2017 Status: F Source: [place] 8:55 CLINIC REFERENCE REPOSITORY TYPE CODE TESTS RESULT OUT OF REFERENCE UNITS RANGE LAB PREGL(LOIN 15-132 ng/dL C) Pregnenolone 36 Performed By: #### NH3, SHBG2, FTESTO, SERFOL, CERULO, MG1, PHOS, DHEAS, E2, PROG, CMVMAB, HBA1C, VITD, EBVG, EBVM, HSVG12 #### [facility] Routine Lab [address] [place] [phone] #### COR #### [facility] Immuno Assay [address] [place] [phone] #### HBELEC #### [facility] Hematology [address] [place] [phone] #### NATE, 125VTD #### [facility] Chemistry [address] [place] [phone] #### [id number] #### [facility] Reference [address] [place] [phone] VITAMIN B6 PLASMA Collected: 11/12/2017 Status: F Source: [place] 8:55 [facility] REFERENCE REPOSITORY TYPE CODE TESTS RESULT OUT OF REFERENCE UNITS RANGE LAB VITB6(LOINC 20.0-125.0 nmol/L ) Vitamin B6 56.0 Plasma Performed By: #### NH3, SHBG2, FTESTO, SERFOL, CERULO, MG1, PHOS, DHEAS, E2, PROG, CMVMAB, HBA1C, VITD, EBVG, EBVM, HSVG12 #### [facility] Routine Lab [address] [place] [phone] #### COR #### [facility] Immuno Assay [address] [place] [address] #### HBELEC #### [facility] Hematology [address] [place] [phone] #### NATE, 125VTD #### [facility] Chemistry [address] [place] [phone] #### [id number] #### [facility] Reference [address] [place] [phone] VITD, 1,25 DIHYDROXY Collected: 11/12/2017 Status: F Source: [address] REFERENCE REPOSITORY TYPE CODE TESTS RESULT OUT OF REFERENCE UNITS RANGE LAB 125D2(LOIN C) 1,25 Dihydroxy VitD2 Result Comment: <8.0 Because of the small quantity of specimen received, a specimen dilution was made. At this dilution, this analyte was not detected. Therefore, the possible maximum concentration in the specimen was determined by the assay sensitivity. LAB 125D3(LOINC) pg/mL 1,25 Dihydroxy VitD3 41.6 LAB CYJ247(LOINC) 15.0-60 .0 Vit D,1,25 DiOH Result Comment: 41.6 This test was developed and its performance characteristics determined by [facility]'s [facility] [place] [facility] It has not been cleared or approved by the FDA. [facility] is regulated under CLIA as qualified to perform high-complexity testing. This test is used for clinical purposes. It should not be regarded as investigational or for research. 1,25 Dihydroxy Vitamin D2 was not detectable. Refer to 1,25 Vitamin D2 comment. Total 1,25 Dihydroxy Vitamin D may be falsely decreased. Performed By: #### NH3, SHBG2, FTESTO, SERFOL, CERULO, MG1, PHOS, DHEAS, E2, PROG, CMVMAB, HBA1C, VITD, EBVG, EBVM, HSVG12 #### [facility] Routine Lab [address] [place] [address] #### COR #### [facility] Immuno Assay [address] [place] [address] #### HBELEC #### [facility] Hematology [address] [place] [address] #### NATE, 125VTD #### [facility] Chemistry [address] [place] [address] #### [id number] #### [facility] Reference [address] [place] [phone] DHEA Collected: 11/12/2017 Status: F Source: [place] 8:55 [facility] REFERENCE REPOSITORY TYPE CODE TESTS RESULT OUT OF RANGE REFERENCE UNITS LAB DHEA(LOINC) 0.630-4.700 ng/mL DHEA 2.030 Performed By: #### NH3, SHBG2, FTESTO, SERFOL, CERULO, MG1, PHOS, DHEAS, E2, PROG, CMVMAB, HBA1C, VITD, EBVG, EBVM, HSVG12 #### [facility] Routine Lab [address] [place] [address] #### COR #### [facility] Immuno Assay [address] [place] [phone] #### HBELEC #### [facility] Hematology [address] [place] [address] #### NATE, 125VTD #### [facility] Chemistry [address] [place] [phone] #### [id number] #### [facility] Reference [address] [place] [phone] COXSACKIE A AB Collected: 11/12/2017 Status: F Source: [place] 8:55 [facility] REFERENCE REPOSITORY TYPE CODE TESTS RESULT OUT OF REFERENCE UNITS RANGE LAB COXA9(LOIN <1:8 C) Coxsackie A9 Ab <1:8 Performed By: #### NH3, SHBG2, FTESTO, SERFOL, CERULO, MG1, PHOS, DHEAS, E2, PROG, CMVMAB, HBA1C, VITD, EBVG, EBVM, HSVG12 #### [facility] Routine Lab [address] [place] [phone] #### COR #### [facility] Immuno Assay [address] [place] [phone] #### HBELEC #### [facility] Hematology [address] [place] [phone] #### NAET, 125VTD #### [facility] Chemistry [address] [place] [phone] #### [id number] #### [facility] Reference [address] [place] [phone] COXIELLA IGG ABS Collected: 11/12/2017 Status: F Source: [place] 8:55 [facility] REFERENCE REPOSITORY TYPE CODE TESTS RESULT OUT OF RANGE REFERENCE UNITS LAB IGGPH1(LOIN < 1:16 titer C) IgG Phase DLT16 1 LAB IGGPH2(LOIN < 1:16 titer C) IgG Phase <1:16 2 Performed By: #### NH3, SHBG2, FTESTO, SERFOL, CERULO, MG1, PHOS, DHEAS, E2, PROG, CMVMAB, HBA1C, VITD, EBVG, EBVM, HSVG12 #### [facility] Routine Lab [address] [place] [phone] #### COR #### [facility] Immuno Assay [address] [place] [phone] #### HBELEC #### [facility] Hematology [address] [place] [phone] #### NATE, 125VTD #### [facility] Chemistry [address] [place] [phone] #### WILD13 #### [facility] Reference [address] [place] [phone] COXIELLA IGM ABS Collected: 11/12/2017 Status: F Source: [place] 8:55 [facility] REFERENCE REPOSITORY TYPE CODE TESTS RESULT OUT OF RANGE REFERENCE UNITS LAB IGMPH1(LOIN < 1:16 titer C) IgM Phase DLT16 1 LAB IGMPH2(LOIN < 1:16 titer C) IgM Phase <1:16 2 Performed By: #### NH3, SHBG2, FTESTO, SERFOL, CERULO, MG1, PHOS, DHEAS, E2, PROG, CMVMAB, HBA1C, VITD, EBVG, EBVM, HSVG12 #### [facility] Routine Lab [address] [place] [phone] #### COR #### [facility] Immuno Assay [address] [place] [phone] #### HBELEC #### [facility] Hematology [address] [place] [phone] #### NATE, 125VTD #### [facility] Chemistry [address] [place] [phone] #### [id number] #### [facility] Reference [address] [place] [phone] TULAB AB IGG IGM Collected: 11/12/2017 Status: F Source: [place] 8:55 [facility] REFERENCE REPOSITORY TYPE CODE TESTS RESULT OUT OF REFERENCE UNITS RANGE LAB TULIGG(AUDRA <=9 U/mL NC) F. tularensis IgG 0 Ab LAB TULIGM(AUDRA <=9 U/mL NC) F. tularensis IgM 0 Ab Performed By: #### NH3, SHBG2, FTESTO, SERFOL, CERULO, MG1, PHOS, DHEAS, E2, PROG, CMVMAB, HBA1C, VITD, EBVG, EBVM, HSVG12 #### [facility] Routine Lab [address] [place] [phone] #### COR #### [facility] Immuno Assay [address] [place] [address] #### HBELEC #### [facility] Hematology [address] [place] [address] #### NATE, 125VTD #### [facility] Chemistry [address] [place] [address] #### [id number] #### [facility] Reference [address] [place], [place] [phone] HERPESVIRUS 6 IGG AB Collected: 11/12/2017 Status: F Source: [place] 8:55 [facility] REFERENCE REPOSITORY TYPE CODE TESTS RESULT OUT OF REFERENCE UNITS RANGE LAB HHV6(LOINC ) Herpesvirus High 6 IgG Ab 1:40 Performed By: #### NH3, SHBG2, FTESTO, SERFOL, CERULO, MG1, PHOS, DHEAS, E2, PROG, CMVMAB, HBA1C, VITD, EBVG, EBVM, HSVG12 #### [facility] Routine Lab [address] [place] [phone] #### COR #### [facility] Immuno Assay [address] [place], [place] [phone] #### HBELEC #### [facility] Hematology [address] [place] [phone] #### NATE, 125VTD #### [facility] Chemistry [address] [place] [phone] #### WILD13 #### [facility] Reference [address] [place] [phone] HERPESVIRUS 6 IGM AB Collected: 11/12/2017 Status: F Source: [place] 8:55 [facility] REFERENCE REPOSITORY TYPE CODE TESTS RESULT OUT OF RANGE REFERENCE UNITS LAB HV6IGM(LOIN C) HHV6, SEE NOTE Human IgM Abs Performed By: #### NH3, SHBG2, FTESTO, SERFOL, CERULO, MG1, PHOS, DHEAS, E2, PROG, CMVMAB, HBA1C, VITD, EBVG, EBVM, HSVG12 #### [facility] Routine Lab [address] [place] [phone] #### COR #### [facility] Immuno Assay [address] [place] [phone] #### HBELEC #### [facility] Hematology [address] [place] [phone] #### NATE, 125VTD #### [facility] Chemistry [address] [place] [phone] #### WILD13 #### [facility] Reference [address] [place] [phone] MISC SEND OUT TEST Collected: 11/12/2017 Status: C Source: [place] 8:55 [facility] REFERENCE REPOSITORY TYPE CODE TESTS RESULT OUT OF RANGE REFERENCE UNITS LAB NAME1([facility] ) Test Result Comment: Adenovirus Corrected on 11/15 AT 1339: Previously reported as ADENOVIRAL IGG IGM Antibody, Serum Corrected on 11/15 AT 1339: Previously reported as ADENOVIRAL IGG IGM LAB RESU1(INC) Test Results Result Comment: Refer to supplemental report Faxed to [phone] Test performed by [facility], [address] [place] [address]. Performed By: #### NH3, SHBG2, FTESTO, SERFOL, CERULO, MG1, PHOS, DHEAS, E2, PROG, CMVMAB, HBA1C, VITD, EBVG, EBVM, HSVG12 #### [facility] Routine Lab [address] [place] [address] #### COR #### [facility] Immuno Assay [address] [place] [phone] #### HBELEC #### [facility] Hematology [address] [place] [phone] #### NATE, 125VTD #### [facility] Chemistry [address] [place] [phone] #### WILD13 #### [facility] Reference [address] [place] [address] MRI SPINE CERVICAL Observed: 10/23/2017 Status: F Source: [facility] WITHOUT CONTRAST 1:20 PM [facility] REPOSITORY EXAM: MRI SPINE CERVICAL WITHOUT CONTRAST, 10/22/2017 16:17 PM COMPARISON: MRI brain from the same date CLINICAL INDICATIONS: 61 years Female Myelopathy, slowly progressing; Paraplegia (paraparesis) and quadriplegia (quadriparesis); progressive newly developed left sided UE muscle spasticity and weakness.; TECHNIQUE: A series of sagittal and axial multisequence images of the cervical spine were obtained using standard protocol without the administration of gadolinium-based intravenous contrast. Study was performed at [address]. FINDINGS: Prevertebral and paraspinal soft tissues are unremarkable. Seven nonrib-bearing cervical type vertebrae are identified in anatomic alignment. The vertebral bodies demonstrate normal height and signal. No concerning focal lesions. An incidental hemangioma is identified in the T2 vertebral body. Mild degenerative change of the cervical spine, manifested by osteophytosis, particularly of the lower cervical spine. In the left lateral aspect of the C7 vertebral body, there is an area of T2/STIR hyperintensity (STIR sagittal #7). Similar findings are present in the T3 vertebral body, partially visualized. 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 Mild degenerative changes of the intervertebral discs are noted, manifested by signal loss. The visualized portions of the spinal cord are normal in signal and morphology. Level by level evaluation: C1-C2: Atlanto-axial relationship is within normal limits. C2-C3: No significant disc herniation or central spinal stenosis. No significant neural foraminal narrowing. C3-C4: No significant disc herniation or central spinal stenosis. No significant neural foraminal narrowing. C4-C5: No significant disc herniation or central spinal stenosis. No significant neural foraminal narrowing. C5-C6: A minimal disc herniation is present which mildly flattens the ventral aspect of the thecal sac. The CSF surrounding the cord is preserved. Uncovertebral and facet arthropathy contribute to mild left neural foraminal narrowing. C6-C7: A minimal disc herniation is present, which mildly flattens the ventral aspect of the thecal sac. The CSF surrounding the cord is preserved. No significant neural foraminal narrowing. C7-T1: No significant disc herniation or central spinal stenosis. No significant neural foraminal narrowing. IMPRESSION: No acute fracture or malalignment. Mild degenerative changes of the cervical spine, as detailed above. I personally viewed and interpreted these images and I have reviewed and approved this report. BRAIN WITHOUT Observed: 10/23/2017 Status: F Source: [facility] CONTRAST 11:21 AM [facility] REPOSITORY EXAM: MRI BRAIN WITHOUT CONTRAST, 10/22/2017 16:19 PM COMPARISON: Cervical spine MRI from the same date CLINICAL INDICATIONS: 61 years Female Neuro deficit(s), subacute, progressive or fluctuating; new onset of left sided UE weakness with spasticity.; TECHNIQUE: A series of multisequence, multiplanar images of the brain are obtained using standard protocol without the administration of gadolinium-based intravenous contrast. Study was performed at 3 [place]. FINDINGS: Intracranial: There is no MRI evidence for acute infarct, hemorrhage, intracranial mass, or midline shift. There are no abnormal extra-axial fluid collections. There are scattered patchy foci of T2/FLAIR signal hyperintensity in the cerebral white matter. There is a more focally confluent T2 hyperintensity with surrounding FLAIR signal in the romo radiata underlying right frontal lobe, likely related to a prior lacunar infarct. The ventricles and sulci are normal in size and configuration. The posterior fossa structures are normal in appearance. The fourth ventricle is patent. Incidental note is made of a partially empty sella. The suprasellar structures are normal in appearance. Extracranial/Osseous: The soft tissues and calvarial bones are unremarkable. The visualized paranasal sinuses are well-developed and clear. Mastoid air cells appear well-pneumatized and clear. No significant orbital abnormality is identified. Visualized soft tissues below skull base demonstrate no significant abnormality. IMPRESSION: 1. No MRI evidence of acute intracranial hemorrhage, mass lesion, or acute infarction. 2. Patchy T2/FLAIR signal abnormalities in the white matter are indeterminate, but statistically represent chronic microvascular ischemia of moderate severity. I personally viewed and interpreted these images and I have reviewed and approved this report. RGIES ALLERGIES DATE TYPE / CODE NAME / CODE REACTION SEVERITY SOURCE 08/15/2018 Drug thimerosal/[id number] Itching Unknown [facility] Allergy/416 3125(RXNORM) Community 529876([facility] ED CT) Repository 09/10/2015 DRUG/574627 ATOVAQUONE-PROGUA HIVES [facility] 003(SNOMED NIL [address] [place] [address]) Repository 04/26/2009 DRUG THIMEROSAL [facility] INGREDI/[address] [place] 219805(SN Repository ED CT) ENCOUNTERS ENCOUNTERS ADMIT/DISCHARGE ACCOUNT NUMBER ADMITTING ENCOUNTER LOCATION SOURCE CLASS 09/19/2018/09/19/19 [id number] Ambulatory [address] Repository 09/16/2018 [id number] Ambulatory [facility] ding:[facility] Repository 09/04/2018/09/05/19 [id number] Ambulatory [address] Repository 09/02/2018/09/02/20 [id number] Ambulatory [address] ding:[facility] Repository 08/15/[id number] [facility] 08/14/2018/08/14/20 [id number] MIKI ISAAC, Ambulatory [address] [address] LILLY day:PACURoom: General ZR47Kfr: [address] [place] [address] Repository 06/19/2018 [id number] Ambulatory [facility] ding:LAB Repository 06/08/2018 [id number] Ambulatory Farnaz Farnaz [facility] ding:[facility] Repository 04/22/2018/04/22/20 [id number] Ambulatory [address] [place] Repository 04/22/2018/04/25/20 [id number] Ambulatory [address] Repository 12/11/2017/12/12/19 [id number] Ambulatory [address] Repository 10/22/2017 [id number] Ambulatory Building:[facility] Repository 10/22/2017 [id number] Ambulatory Building:[facility] Repository 10/22/2017 [id number] Ambulatory Building:[facility] Repository 10/04/2017 [id number] Ambulatory Building:[facility] Repository PAYERS PAYERS ENCOUNTER GUARANTOR PAYER SUBSCRIBER SOURCE 09/16/2018 MARITA Cabrera Primary SANAM A Farnaz [id number] N Insurance:CORESOURCEP MILLERDOB: [facility] Number: [id number] Repository [address]Gge: 330) Date:6918-78-78IC [phone] () [address] KIMMY [address] 246[address]IK: 09/16/2018 Secondary NOT GIVENUNK [place] Insurance:SELF PAY [facility] Number: Effective Repository Date:2018-09-02 09/02/2018 MARITA Cabrera Primary SANAM A Farnaz [id number] N Insurance:[facility]: [facility] Number: [id number] [id number] Repository [address]Nay: 330) Date:5914-63-06VJ [phone] () 3461PAKIMMY ROWAN 25[address]VC: 09/02/2018 Secondary NOT GIVENUNK [place] Insurance:SELF PAY [facility] Number: Effective Repository Date:2018-08-19 08/15/2018 MARITA Cabrera Primary SANAM A Farnaz [id number] N Insurance:CORESOURCEP MILLERDOB: Community [employer]y Number: [id number], [place] [id number] Repository [address]Jte: (330) Date:7894-32-03YD [phone] (HP) [address] KIMMY [address]LL [address]AL: 08/15/2018 Secondary NOT GIVENUNK [place] Insurance:SELF PAY [facility] Number: Effective Repository Date:2018-08-08 08/14/2018 SANAM MILLERDOB: Primary SANAM MILLERDOB: [place] Insurance:OTHER [id number] [facility] [employer] [place], [place] Number: Effective [place], [place] Repository [address]Cel: (330) Date:2008-09-03 02164Hqh: (HP) [id number] [phone] Name:ELMA RUSHING ()Tel: [phone] 1045MTKIMMY ROWAN [phone] () [id number]: 06/19/2018 MARITA Cabrera Primary SANAM A [place] [id number] N Insurance:CORESOURCEP MILLERDOB: Community [employer] Number: [id number], [id number] Repository [address]Btm: (330) Date:7509-98-77XP [phone] (HP) 2310MTKIMMY ROWAN [address]89[address]SO: 06/19/2018 Secondary NOT GIVENUNK [place] Insurance:SELF PAY [facility] Number: Effective Repository Date:2018-06-19 06/08/2018 Marita Cabrera Primary SANAM A Farnaz [id number] N Insurance:CORESOURCEP MILLERDOB: Community [employer] darieniclatoya Number: [id number], [place] [id number] Repository [address]Uon: (330) Date:8333-83-63TD [phone] (HP) 2310MTYves [place], [place] [address]EM: 06/08/2018 Secondary NOT GIVENUNK [place] Insurance:SELF PAY [facility] Number: Effective Repository Date:2018-05-21 10/22/2017 SANAM SOLIZB: Primary Insurance:[facility] SANAM SOLIZB: [facility] PRIME CARE [id number] [facility], Number: [facility] [address]Kwc: [id number] Repository Date:5552-19-83Bnph () Name:MANAGED CARE 10/22/2017 SANAM SOLIZB: Primary Insurance:[facility]U SANAM SOLIZB: [facility] PRIME CARE [id number] [facility], Number: [facility] [address]Fxi: [id number] Repository Date:5922-32-33Lhex () Name:MANAGED CARE 10/22/2017 SANAM SOLIZB: Primary Insurance:[facility]U SANAM SOLIZB: [facility] PRIME CARE [id number] [facility], Number: [facility] [address]Uhv: [id number] Repository Date:3016-82-01Ltpj (HP) Name:MANAGED CARE 10/04/2017 SANAM SOLIZB: Primary Insurance:[facility]U SANAM SOLIZB: [facility] PRIME CARE [id number] [facility], Number: [facility] [address]Gfr: [id number] Repository Date:2561-42-97Avhl () Name:MANAGED CARE
== END ==
DX: A69.20 Lyme disease, unspecified (principal)
CPT/HCPCS: 96365; 96366 ×3; 96367; J7040; J7050; A4216; J0295

== ENCOUNTER 2018-09-02 08:45 | Outpatient (RCR) | payer OTHER, SELFPAY ==
[2018-08-15 08:51] VITALS: BMI 27.3
[2018-08-19 14:40] LABS: Absolute Lymphocyte Count 1.62 X10^3/ul (0.83-4.51); Absolute Neutrophil Count 2.8 X10^3/uL (2.0-7.7); Basophil# 0.02 X10^3/uL; Basophil% 0.4 % (0-1); Eosinophil# 0.16 X10^3/uL; Eosinophils% 3.2 % (0-5); Hematocrit 41.3 % (37-47); Hemoglobin 13.3 g/dl (12.0-15.0); Lymphocyte # 1.62 X10^3/ul (4.0); Lymphocyte % 32.9 % (19-41); Mean Corp Hgb Conc 32.2 g/gl (32-36); Mean Corpuscular Hgb 31.7 pg (27.0-32.0); Mean Corpuscular Volume 98.6 fL (81-99); Mean Platelet Vol. 11.3 fl (6.2-12.0); Monocyte# 0.36 X10^3/uL; Monocyte% 7.3 % (0-10); Neutrophil # 2.77 X10^3/uL (2.7-7.7); Neutrophil % 56.2 % (47-70); Platelet Count 224 K/mm3 (150-450); RBC Distribution Width SD 47.2 fl (35.1-43.9); Red Blood Count 4.19 M/mm3 (4.2-5.4); White Blood Count 4.9 K/mm3 (4.4-11.0)
[2018-08-19 14:42] LABS: POSITIVE COUNT NO; POSITIVE DIFFERENTIAL NO; POSITIVE MORPHOLOGY NO
[2018-08-19 14:55] LABS: ALB/GLOB Ratio 1.2 RATIO (0.9-2.4); AST(SGOT) 26 U/L (15-37); Alanine Aminotransfer ALT/SGPT 43 U/L (13-56); Albumin, Serum 3.6 g/dL (3.2-5.0); Alkaline Phosphatase 79 U/L (45-117); Anion Gap 8 (5-15); BUN 14 mg/dL (7-18); BUN/Creat Ratio 30.8 RATIO (10-20); Calcium,Total 9.2 mg/dL (8.5-10.1); Chloride 109 mmol/L (98-107); Creatinine, Serum 0.46 mg/dL (0.55-1.02); EST Glomerular Filtration Rate 147 mL/min (>60); Est Glom Filt Rate - Afr Amer 178 mL/min (>60); Globulin 3.1 g/dL (2.2-4.2); Glucose 111 mg/dL (74-106); Potassium 3.7 mmol/L (3.5-5.1); Protein, Total 6.7 g/dL (6.4-8.2); Sodium Level 144 mmol/L (136-145)
[2018-09-02 09:04] LABS: Absolute Lymphocyte Count 1.16 X10^3/ul (0.83-4.51); Absolute Neutrophil Count 3.4 X10^3/uL (2.0-7.7); Basophil# 0.02 X10^3/uL; Basophil% 0.4 % (0-1); Eosinophil# 0.25 X10^3/uL; Eosinophils% 4.6 % (0-5); Hematocrit 43.2 % (37-47); Lymphocyte # 1.16 X10^3/ul (4.0); Lymphocyte % 21.2 % (19-41); Mean Corp Hgb Conc 32.4 g/gl (32-36); Mean Corpuscular Volume 98.9 fL (81-99); Mean Platelet Vol. 10.9 fl (6.2-12.0); Monocyte# 0.61 X10^3/uL; Monocyte% 11.2 % (0-10); Neutrophil # 3.42 X10^3/uL (2.7-7.7); Neutrophil % 62.4 % (47-70); POSITIVE COUNT NO; POSITIVE DIFFERENTIAL NO; POSITIVE MORPHOLOGY NO; Platelet Count 222 K/mm3 (150-450); RBC Distribution Width CV 13.2 % (11.6-14.6); RBC Distribution Width SD 47.6 fl (35.1-43.9); Red Blood Count 4.37 M/mm3 (4.2-5.4); White Blood Count 5.5 K/mm3 (4.4-11.0)
[2018-09-02 09:17] LABS: ALB/GLOB Ratio 1.2 RATIO (0.9-2.4); AST(SGOT) 26 U/L (15-37); Alanine Aminotransfer ALT/SGPT 52 U/L (13-56); Albumin, Serum 3.7 g/dL (3.2-5.0); Alkaline Phosphatase 86 U/L (45-117); Anion Gap 11 (5-15); BUN 17 mg/dL (7-18); Calcium,Total 9.3 mg/dL (8.5-10.1); Chloride 107 mmol/L (98-107); Creatinine, Serum 0.63 mg/dL (0.55-1.02); EST Glomerular Filtration Rate 101 mL/min (>60); Est Glom Filt Rate - Afr Amer 122 mL/min (>60); Globulin 3.2 g/dL (2.2-4.2); Glucose 100 mg/dL (74-106); Protein, Total 6.9 g/dL (6.4-8.2); Sodium Level 144 mmol/L (136-145)
--- OUTSIDE RECORDS SUMMARY | 2018-11-21 07:03 | XMS RPT_ITS ---
:1955 External Reference #:[id number] Author Organization [place] Support Name Relationship Address Phone JONNY COTA Unavailable Unavailable + [facility] Unavailable [address] + [place] [address] STCANELO, MARITA Unavailable [address] + [place] [address] STCANELO, MIMI Unavailable Unavailable + [facility] Unavailable [address] + [place] [address] STYER MARITA Unavailable [address] + [place] [address] STYER, MIMI Unavailable Unavailable + [facility] Unavailable [address] + [place] [address] STYER, MARITA Unavailable [address] + [place] [address] STYER, MIMI Unavailable Unavailable + STYER, CHIP Unavailable Unavailable + [facility] Unavailable [address] + [place] [address] STYER, MARITA Unavailable [address] + [place] [address] STYER, MIMI Unavailable Unavailable + [facility] Unavailable [address] + [place] [address] STYER, MARITA Unavailable [address] + [place] [address] STYER, MIMI Unavailable Unavailable + SANAM HUDSON Unavailable [address] + [place] [address] STYER, CHIP Unavailable Unavailable + STYER MARITA Unavailable [address] + [place] [address] HUDSON, SANAM Unavailable [address] + [place] [address] STYER, CHIP Unavailable Unavailable + STYER MARITA Unavailable [address] + [place] [address] HUDSON, SANAM Unavailable [address] + [place] [address] STYER, CHIP Unavailable Unavailable + STYER, MARITA Unavailable [address] + [place] [address] HUDSON, SANAM Unavailable [address] + [place] [address] STYER, CHIP Unavailable Unavailable + STCANELO MARITA Unavailable [address] + [place] [address] Care Team Providers Name Role Phone LUÍS [...] Unavailable MARTHA RIVERA Attending Unavailable DORITA PEPE R Referring Unavailable JESUSKBARBERDORITA R Primary Care Unavailable PRASHANT VILLALBA Attending Unavailable MARTHA RIVERA Referring Unavailable JESUSKDORITA R Primary Care Unavailable PRASHANT VILLALBA Attending Unavailable MARTHA RIVERA Referring Unavailable OLENATAKBARBERDORITA R Primary Care Unavailable PRASHANT VILLALBA Attending Unavailable NICOLE YASUDIVINA Referring Unavailable BARBER PEPEREY R Primary Care Unavailable KHARBAT, SARA Attending Unavailable KHARBAT, SARA Attending Unavailable KHARBAT, SARA Referring Unavailable KHARBAT, SARA Attending Unavailable NEERU HANDY (EX PHYS) Attending Unavailable MIKI ISAAC, LILLY Attending Unavailable LILLY LIVINGSTON MD Admitting Unavailable GABE GERARDO PA-C Referring Unavailable MIKI ISAAC, LILLY Attending Unavailable MIKI ISAAC, LILLY Referring Unavailable PROBLEMS PROBLEMS DATE TYPE CONDITION / CODE ATTENDING STATUS SOURCE 09/16/2018 Unknown 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, Community unspecified / Hospital A69.20(ICD-10) Repository 07/29/2018 Unknown 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, Hospital unspecified / Repository Q07.9(ICD-10) 10/22/2017 Admitting Other symptoms and PRASHANT VILLALBA Active [facility] diagnosis signs involving University the nervous system [facility] / R29.818(ICD-10) Center Repository 10/22/2017 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, unspecified University ([facility]) / [facility] G95.9(ICD-10) Center Repository 10/22/2017 Admitting Stiffness of PRASHANT VILLALBA Active [facility] diagnosis unspecified joint, University not elsewhere [facility] classified / Center M25.60(ICD-10) Repository 10/22/2017 Admitting Pain in left arm / PRASHANT VILLALBA Active [facility] diagnosis M79.602(ICD-10) [facility] Repository 10/22/2017 Admitting Other muscle spasm PRASHANT VILLALBA Active [facility] diagnosis / M62.838(ICD-10) [facility] Repository 10/22/2017 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, University unspecified (HCC) [facility] Medical / 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 FOLLOW UP: Signed: Neeru Handy MA [facility] Board Certified Health and Senior Data Integration Developer Time Spent with patient: 30 minutes Consult Billing Type: 1 increment (30 minutes) Number of Increments: 1 (30 minutes) CBC W/DIFF, AUTOMATED Collected: 09/16/2018 Status: F Source: [place] 8:10 AM [facility] REPOSITORY TYPE CODE TESTS RESULT OUT OF [...] Lymph 1.93 Performed By: #### L100.0100 #### [facility] [place], [address] COMPREHENSIVE METABOLIC Collected: 09/16/2018 Status: F Source: [place] [facility] 8:10 AM [facility] REPOSITORY TYPE CODE TESTS RESULT OUT OF [...] GAP 10 Performed By: #### L500.4050 #### [facility] [address] [place], [place], [address] PROGRESS Observed: 09/04/2018 Status: COMPLETED Source: [place] 3:55 PM [facility] REPOSITORY HNO ID: [id number] Author: Sara Chin Service: (none) Author Type: [...] ringing occurs - stop nasal sprayFAXED to [facility] pharmacy Betaine HCL Pepsin (Pure Encapsulations) Take [...] Patch as directed twice a week. Fish Oil-Marilla-3 Fatty Acids 300-1,000 mg cap Take by [...] each nostril 2 times a day One Marilla (Pure Encapsulation) Take 2 capsules by mouth daily with food. oseltamivir (TAMIFLU) 75 mg capsule TAKE ONE CAPSULE BY MOUTH TWICE DAILY FOR 5 DAYS progesterone micronized (PROMETRIUM) 100 mg capsule Take 1 capsule by mouth daily at bedtime. PS 100 - 120 ct. 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 Better when she was in [place]. Had illness and Dr. 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 Jock [...] this visit. Bioelectrical Impedance Analysis Results by [employer] Recent Results from: 09/06/16 at 10:24 [...] occurs - stop nasal sprayFAXED to [facility] Dispense: 1 Each Refill: 1 Estradiol [...] her work bldg Stress - full prof [facility], good repuation, Reprimanded for a good deed [...] month which resolved. Dec 2017 reviewed ?Oct 2017[facility] neuro Dr. Nicole ISAAC note Postmenopausal - ?Address w/ Dr. Livingston Cough - try Quercitin On AA powder from [facility] and NAD CIRS - was sick with [...] ?? Detoxification Function WOLFF Many amalgams 2017 [place] repeat compared to November 2016 after 13 [...] one of the heart math books off [employer] that fits your 'go to emotion' - [...] one sitting. Consider scheduling with our Health Rooming House Operator for a phone or virtual visit for accountability, goal setting and help with behavior change management lead the next 6-8 weeks to be successful with your goals. [phone]. Consider purchasing the DVD set and going through the Dynamic Neural Retraining System (Neuroplasticity-based Therapy) at [employer]. DVDs $270s Book $25 or on [employer] $18, Medication orders placed this encounter albuterol [...] keto, or AMB)-->NAC(250-500mg oral QD or BID)-->oral antifungal(mlcwdpyd457,000 u orally, 1-4x a day, diflucan 100mg [...] DO CNOV Observed: 09/04/2018 Status: COMPLETED Source: [place] 3:45 PM [facility] REPOSITORY Office Visit (MEDFMN) SANAM HUDSON ([id number]) 1955 F Date Time Provider Department 09/04/18 3:45 PM [facility] During your visit today, we recorded the [...] ringing occurs - stop nasal sprayFAXED to [facility] pharmacy Betaine HCL Pepsin (Pure Encapsulations) Take [...] Patch as directed twice a week. Fish Oil-Marilla-3 Fatty Acids 300-1,000 mg cap Take by [...] each nostril 2 times a day One Marilla (Pure Encapsulation) Take 2 capsules by mouth daily with food. oseltamivir (TAMIFLU) 75 mg capsule TAKE ONE CAPSULE BY MOUTH TWICE DAILY FOR 5 DAYS progesterone micronized (PROMETRIUM) 100 mg capsule Take 1 capsule by mouth daily at bedtime. PS 100 - 120 ct. 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 Livingston and TACHO helps Got an HBOT and loves it [...] speaking easily. Better when she was in [place]. Had illness and Dr. 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 Jock [...] this visit. Bioelectrical Impedance Analysis Results by [employer] Recent Results from: 09/06/16 at 10:24 [...] her work bldg Stress - full prof [facility], good repuation, Reprimanded for a good deed [...] 2017 reviewed ?[facility] Nicole ISAAC note Postmenopausal - ?Address w/ Dr. [...] ?? Detoxification Function WOLFF Many amalgams 2017 [place] repeat compared to November 2016 after 13 [...] one of the heart math books off [employer] that fits your 'go to emotion' - [...] one sitting. Consider scheduling with our Health Rooming House Operator for a phone or virtual visit for accountability, goal setting and help with behavior change management lead the next 6-8 weeks to be successful with your goals. [phone]. Consider purchasing the DVD set and going through the Dynamic Neural Retraining System (Neuroplasticity-based Therapy) at [employer]. DVDs $270s Book $25 or on [employer] $18, Medication orders placed this encounter albuterol [...] keto, or AMB)-->NAC(250-500mg oral QD or BID)-->oral antifungal(huomzvhk123,000 u orally, 1-4x a day, diflucan 100mg [...] one of the heart math books off [employer] that fits your 'go to emotion' - [...] one sitting. Consider scheduling with our Health Rooming House Operator for a phone or virtual visit for accountability, goal setting and help with behavior change management lead the next 6-8 weeks to be successful with your goals. [phone]. Consider purchasing the DVD set and going through the Dynamic Neural Retraining System (Neuroplasticity-based Therapy) at [employer]. DVDs $270s Book $25 or on [employer] $18, No orders of the defined types [...] keto, or AMB)-->NAC(250-500mg oral QD or BID)-->oral antifungal(yabaxktq333,000 u orally, 1-4x a day, diflucan 100mg [...] one of the heart math books off [employer] that fits your 'go to emotion' - [...] one sitting. Consider scheduling with our Health Rooming House Operator for a phone or virtual visit for accountability, goal setting and help with behavior change management lead the next 6-8 weeks to be successful with your goals. [phone]. Consider purchasing the DVD set and going through the Dynamic Neural Retraining System (Neuroplasticity-based Therapy) at [employer]. DVDs $270s Book $25 or on [employer] $18, No orders of the defined types [...] INTERVENTIONAL RADIOLOGY Observed: 08/26/2018 Status: F Source: [facility] PROGRESS NOTE 12:08 PM [facility] REPOSITORY PT return for 10 day post [...] Source: [place] 10:15 AM [facility] REPOSITORY TYPE CODE TESTS RESULT OUT OF [...] Lymph 1.62 Performed By: #### L100.0100 #### [facility] [address] [place], [address] COMPREHENSIVE METABOLIC Collected: 08/19/2018 Status: F Source: [facility] 10:15 AM [facility] REPOSITORY TYPE CODE TESTS RESULT OUT OF [...] GAP 8 Performed By: #### L500.4050 #### [facility] [address] [place], [address] IR TUNNELED CENTRAL Observed: 08/15/2018 Status: F Source: [facility] 9:05 AM [facility] UNDER ULTRASOUND AND FLUOROSCOPIC GUIDANCE [...] ultrasound image obtained during the procedure, a [place] guidewire was advanced into the central circulatory system without difficulty. The needle was exchanged by a 5-Malian dilator. At this point, additional local anesthesia [...] electrocautery. Utilizing a metal tunneler, a 8.5 Malian catheter was tunneled and advanced from the anterior chest pocket to the venous access previously made. The port was placed into the pocket and the skin was sutured by planes with absorbable suture material. The dilator and the Greencastle guidewire were removed and exchanged for a peel-away sheath and J-wire. After progressive dilatation of the access a 10-Malian dilator, a valved peel-away sheath was then [...] and fluoroscopic guided placement of a 8 Malian X 18 cm low profile power ProFuse port and tunnel catheter. PROCEDURES PERFORMED: Conscious sedation 30 minutes Ultrasound evaluation of right internal jugular vein. Ultrasound guided venous access. Tunneling and placement of Mediport and catheter under fluoroscopy. Technologist: TALAT Dictated By: GABE GERARDO PA-C Signed By: GABE GERARDO PA-C Signed Out: 08/15/18 09:03:36 CONSULT REPORT Observed: 08/14/2018 Status: F Source: [facility] 9:10 AM [facility] REPOSITORY Patient: SANAM HUDSON Age: 62 years [...] br/min (AUG 14:) SBP 131 mmHg (AUG 14:) DBP 81 mmHg (AUG 14) SpO2 99 [...] bowel sounds, No organomegaly. Integumentary: Warm, Dry, [place]. Neurologic: Alert, Oriented, Normal sensory, Normal motor [...] PT INR Collected: 08/14/2018 Status: F Source: [facility] 8:25 AM [facility] REPOSITORY TYPE CODE TESTS RESULT OUT OF RANGE REFERENCE UNITS LAB 8208(LOINC) Normal INR 1.1 Result Comment: Normal reference range for INR on patients not on anticoagulant therapy: 0.9-1.1. General therapeutic range for patients on anticoagulant therapy: 2.0-3.5. LAB 5986910(LOINC) 9.7-12.7 seconds Normal Protime Patient 11.9 Performed By: #### [id number], [id number], [id number] #### [facility] Services [address] [place] [address] Property Coordinator: Carlin Jade MD HEMO Collected: 08/14/2018 Status: F Source: [facility] 8:24 AM [facility] REPOSITORY TYPE CODE TESTS RESULT OUT OF RANGE REFERENCE UNITS LAB 8129 36.0-46.0 % Normal HCT 41.6 LAB 8340 7.4-10.4 fL Normal MPV 9.2 LAB 8313 27.0-34.0 pg Normal MCH 33.1 LAB 8216056(AUDRA NC) Normal Instr WBC 5.4 LAB 8618 11.5-14.5 Normal RDW 13.4 LAB 8611 4.20-5.40 x10 Normal RBC 4.23 Result Comment: Note: RBC morphology is normal unless otherwise stated. Evaluation performed only if differential is requested. LAB 69937244 /100WBC Normal Nucleated RBC 0 LAB 8986 4.5-11. x10 Normal 0 WBC 5.4 LAB 8314 32.0-37 g/dL Normal .0 MCHC 33.7 LAB 8153 12.0-16 g/dL Normal .0 HGB 14.0 LAB 0066386 150-450 x1000 Normal Platelet 202 LAB 8315 80.0-10 fL Normal 0.0 MCV 98.3 LAB 5634570(LOINC) Normal DIFF? No Performed By: #### [id number], [id number], [id number] #### [facility] Services [address] [place] [address] Property Coordinator: Carlin Jade MD AUTO DIFF Collected: 08/14/2018 Status: F Source: [facility] 8:24 AM [facility] REPOSITORY TYPE CODE TESTS RESULT OUT OF REFERENCE UNITS RANGE LAB 2806752 1.20-4.80 x1000 Lymph Normal Count 1.48 LAB 0659246 % Basos % Normal 0.6 LAB 3806983 0.00-0.20 x1000 Baso Normal Count 0.03 LAB 2964985 0.10-1.00 x1000 [place] Normal Count 0.45 LAB 3908096 % [place] % Normal 8.3 LAB 5370422 % Normal Neutrophil % 62.4 LAB 6162739 1.40-8.80 x1000 Normal Neutrophil Count 3.37 (ANC) LAB 1004639 0.00-0.50 x1000 Eos Normal Count 0.06 LAB 7973887 % Eosin % Normal 1.2 LAB 6044315 % Lymph % Normal 27.5 Performed By: #### 295709, [id number], 538334 #### [facility] Services [address] [place] [address] Property Coordinator: Carlin Jade MD CBC W/DIFF, AUTOMATED Collected: 06/19/2018 Status: F Source: [place] 9:00 AM [facility] REPOSITORY TYPE CODE TESTS RESULT OUT OF [...] Lymph 1.66 Performed By: #### L100.0100 #### [facility] [address] [place], [place], [address] HEMOGLOBIN A1C Collected: 06/19/2018 Status: F Source: [place] 9:00 AM [facility] REPOSITORY TYPE CODE TESTS RESULT OUT OF RANGE REFERENCE UNITS LAB L501.9985 4.2-6.3 % Normal HGB A1C 5.2 Performed By: #### L501.9985 #### [facility] [address] [place], [address] VITAMIN D,25 HYDROXY Collected: 06/19/2018 Status: F Source: [place] 9:00 AM [facility] REPOSITORY TYPE CODE TESTS RESULT OUT OF RANGE REFERENCE UNITS LAB L506.1000 29.95-100.01 ng/mL Normal Vitamin D 34.6 25-OH Result Comment: Vitamin D 25(OH) Status Range Deficiency <20 ng/mL (50nmol/L) Insuffciency 20 - 30 ng/mL (50 - 75 nmol/L) Sufficiency 30 - 100 ng/mL (75 - 250 nmol/L) Toxicity >100 ng/mL (>250 nmol/L) Performed By: #### L506.1000 #### [facility] [address] [place], [address] COMPREHENSIVE METABOLIC Collected: 06/19/2018 Status: F [facility] REPOSITORY TYPE CODE TESTS RESULT OUT OF [...] 8 Performed By: #### L500.4050, L501.2300, L501.5200, L501.34021, L501.9520, L506.0400 #### [facility] [address] [facility] [place], [place], [address] PHOSPHORUS Collected: 06/19/2018 Status: F Source: [place] 9:00 AM [facility] REPOSITORY TYPE CODE TESTS RESULT OUT OF RANGE REFERENCE UNITS LAB L501.2300 2.5-4.9 mg/dL Normal PHOS 3.1 Performed By: #### L500.4050, L501.2300, L501.5200, L501.45605, L501.9520, L506.0400 #### [facility] [address] [facility] [place], [place], [address] MAGNESIUM Collected: 06/19/2018 Status: F Source: [place] 9:00 AM [facility] REPOSITORY TYPE CODE TESTS RESULT OUT OF RANGE REFERENCE UNITS LAB L501.5200 1.6-2.6 mg/dL Normal MG 2.0 Performed By: #### L500.4050, L501.2300, L501.5200, L501.31130, L501.9520, L506.0400 #### [facility] [address] [facility] [place], [place], [address] FREE T3 Collected: 06/19/2018 Status: F Source: [place] 9:00 AM [facility] REPOSITORY TYPE CODE TESTS RESULT OUT OF RANGE REFERENCE UNITS LAB L501.13424 2.18-3.98 pg/mL Normal FREE T3 3.9 Performed By: #### L500.4050, L501.2300, L501.5200, L501.50930, L501.9520, L506.0400 #### [facility] [address] [place], [address] THYROID STIM HORMONE Collected: 06/19/2018 Status: F Source: [place] (TSH) 9:00 AM [facility] REPOSITORY TYPE CODE TESTS RESULT OUT OF RANGE REFERENCE UNITS LAB L501.9520 0.358-3.74 uIU/mL Low TSH 0.25 Performed By: #### L500.4050, L501.2300, L501.5200, L501.29790, L501.9520, L506.0400 #### [facility] [address] [place], [address] T4 FREE DIRECT Collected: 06/19/2018 Status: F Source: [place] 9:00 AM [facility] REPOSITORY TYPE CODE TESTS RESULT OUT OF RANGE REFERENCE UNITS LAB L506.0400 0.76-1.46 ng/dL Normal T4 FREE 0.86 DIRECT Performed By: #### L500.4050, L501.2300, L501.5200, L501.98370, L501.9520, L506.0400 #### [facility] [address] [place], [address] VITAMIN D 1,25-DIHYDROXY Collected: 06/19/2018 Status: F Source: [place] 9:00 AM [facility] REPOSITORY TYPE CODE TESTS RESULT OUT OF RANGE REFERENCE UNITS LAB L3300.0960 19.9-79.3 pg/mL Normal VITD 1,25 52.4 27246 Result Comment: Performed at: [address] [id number] Home Lighting Adviser: Jose Cao MD, Phone: [phone] Performed By: #### L3300.0960 #### [facility] (refer to report for specific site) refer to report for address and phone number T3 REVERSE Collected: 06/19/2018 Status: F Source: [place] 9:00 AM [facility] REPOSITORY Order Comment: Has Patient had Radioactive Injection for X-ray?: N TYPE CODE TESTS RESULT OUT OF RANGE REFERENCE UNITS LAB L3300.7100 9.2-24.1 ng/dL Normal T3 REVERSE 16.2 Result Comment: Performed at: [address] [id number] Home Lighting Adviser: Jose Cao MD, Phone: [phone] Performed By: #### L3300.7100 #### [facility] (refer to report for specific site) refer to report for address and phone number MISCELLANEOUS LAB Collected: 06/19/2018 Status: F Source: [place] PROCEDURE 9:00 AM [facility] REPOSITORY Order Comment: Test(s) Ordered: [facility] DATA TYPE CODE TESTS RESULT OUT OF RANGE REFERENCE UNITS LAB L801.[address] [facility] LAB TEST Result Comment: Sent directly to testing facility per ordering physician. @ 07/23/18 1543 MYOUNG Performed By: #### L801.1541 #### [facility] [address] [place], [address] CNPN Observed: 06/13/2018 Status: COMPLETED Source: [place] 12:00 AM [facility] REPOSITORY Telephone (ELIJAHWADS) SANAM HUDSON ([id number]) 1955 F Date Time Provider Department 06/13/18 CHRISTIANO PEPE During your visit today, we recorded the following information about you: Irasema Torres 06/13/2018 12:14 PM Signed Patient is on the wait list, message states she is requesting an order for a mammogram. Please advise. Venita Gillis APRN.WHEEL PRESS OPERATOR 06/13/2018 12:20 PM Signed Patient has not seen PCP since 2015. Please schedule f/u appt. Orders placed. Please [...] for screening mammogram for breast cancer [Z12.31] Order(s):[facility] SCREENING [[id number]] Order #: [id number] FUTURE Prescriptions as of 06/13/2018 Sig: COMPOUNDED [...] AND DIFFERENTIAL Collected: 04/30/2018 Status: F Source: [place] 8:37 AM CLINIC REFERENCE REPOSITORY TYPE CODE [...] Abs Lymph 1.99 LAB AMONO(LOIN % C) [place]% 7.7 LAB AAMONO(AUDRA <0.87 k/uL NC) Abs [place] 0.53 LAB AEOS(LOINC % ) Eosin% 1.4 [...] FREET3, FT4, TSH, EBVG, EBVM, CMVMAB #### [facility] Routine Lab [address] [address] #### NATE, 125VTD #### [facility] Chemistry [address] [place] [address] VITAMIN D 25 HYDROXY Collected: 04/30/2018 Status: F Source: [place] 8:[address] [place] [address] REFERENCE REPOSITORY TYPE CODE TESTS RESULT OUT OF REFERENCE UNITS RANGE LAB VITD(LOINC) 31.0-80.0 ng/mL Low Vitamin D 25 29.7 Hydroxy Performed By: #### CBCDIF, VITD, CMP, MG1, PHOS, FREET3, FT4, TSH, EBVG, EBVM, CMVMAB #### [facility] Routine Lab [address] [place], [place] [address] #### NATE, 125VTD #### [facility] Chemistry [address] [place] [address] COMP METABOLIC PANEL Collected: 04/30/2018 Status: F Source: CRAWLEY 8:37 AM CLINIC REFERENCE REPOSITORY TYPE CODE [...] FREET3, FT4, TSH, EBVG, EBVM, CMVMAB #### [facility] Routine Lab [address] [place], [place] [address] #### NATE, 125VTD #### [facility] Chemistry [address] [place], [place] [address] MAGNESIUM Collected: 04/30/2018 Status: F Source: CRAW[place] 8:37 AM [facility] REFERENCE REPOSITORY TYPE CODE TESTS RESULT OUT OF REFERENCE UNITS RANGE LAB MG(LOINC) 1.7-2.3 mg/dL High Magnesium 2.4 Performed By: #### CBCDIF, VITD, CMP, MG1, PHOS, FREET3, FT4, TSH, EBVG, EBVM, CMVMAB #### [facility] Routine Lab [address] [place], [place] [address] #### NATE, 125VTD #### [facility] Chemistry [address] [place], [place] [address] PHOSPHORUS Collected: 04/30/2018 Status: F Source: CRAW[place] 8:37 AM CLINIC REFERENCE REPOSITORY TYPE CODE TESTS RESULT OUT OF REFERENCE UNITS RANGE LAB PHOS(LOINC 2.7-4.8 mg/dL ) Phosphorus 3.3 Performed By: #### CBCDIF, VITD, CMP, MG1, PHOS, FREET3, FT4, TSH, EBVG, EBVM, CMVMAB #### [facility] Routine Lab [address] [place], [place] [address] #### NATE, 125VTD #### [facility] Chemistry [address] [place], [place] [address] FREE T3 Collected: 04/30/2018 Status: F Source: [place] 8:37 AM [facility] REFERENCE REPOSITORY TYPE CODE TESTS RESULT OUT OF RANGE REFERENCE UNITS LAB FREET3(LOIN 2.3-4.1 pg/mL C) High Free T3 4.6 Performed By: #### CBCDIF, VITD, CMP, MG1, PHOS, FREET3, FT4, TSH, EBVG, EBVM, CMVMAB #### [facility] Routine Lab [address] [place] [address] #### NATE, 125VTD #### [facility] Chemistry [address] [place], [place] [address] FREE T4 Collected: 04/30/2018 Status: F Source: [place] 8:37 AM [facility] REFERENCE REPOSITORY TYPE CODE TESTS RESULT OUT OF RANGE REFERENCE UNITS LAB FT4(LOINC) 0.9-1.7 ng/dL Free T4 1.0 Performed By: #### CBCDIF, VITD, CMP, MG1, PHOS, FREET3, FT4, TSH, EBVG, EBVM, CMVMAB #### [facility] Routine Lab [address] [place] [phone] #### NATE, 125VTD #### [facility] Chemistry [address] [place] [phone] TSH Collected: 04/30/2018 Status: F Source: [place] 8:37 AM [facility] REFERENCE REPOSITORY TYPE CODE TESTS RESULT OUT OF RANGE REFERENCE UNITS LAB TSH(LOINC) 0.400-5.500 uU/mL TSH 2.060 Performed By: #### CBCDIF, VITD, CMP, MG1, PHOS, FREET3, FT4, TSH, EBVG, EBVM, CMVMAB #### [facility] Routine Lab [address] [place] [phone] #### NATE, 125VTD #### [facility] Chemistry [address] [place] [phone] EBV IGG ANTIBODY Collected: 04/30/2018 Status: F Source: [place] 8:37 [facility] REFERENCE REPOSITORY TYPE CODE TESTS RESULT OUT OF RANGE REFERENCE UNITS LAB EBVGQ(LOIN Negative C) Abnormal EBV Positive VCA IgG, Qual LAB EBVGX(LOIN AI C) EBV >8.0 VCA IgG Performed By: #### CBCDIF, VITD, CMP, MG1, PHOS, FREET3, FT4, TSH, EBVG, EBVM, CMVMAB #### [facility] Routine Lab [address] [place] [phone] #### NATE, 125VTD #### [facility] Chemistry [address] [place] [phone] EBV IGM ANTIBODY Collected: 04/30/2018 Status: F Source: [place] 8:37 [facility] REFERENCE REPOSITORY TYPE CODE TESTS RESULT OUT OF RANGE REFERENCE UNITS LAB EBVMQ(LOIN Negative C) Abnormal EBV Equivocal VCA IgM, Qual LAB EBVMX(LOIN AI C) 0.9 EBV VCA IgM Performed By: #### CBCDIF, VITD, CMP, MG1, PHOS, FREET3, FT4, TSH, EBVG, EBVM, CMVMAB #### [facility] Routine Lab [address] [place] [phone] #### NATE, 125VTD #### [facility] Chemistry [address] [place] [phone] CMV IGM ANTIBODY Collected: 04/30/2018 Status: F Source: [place] 8:37 AM [facility] REFERENCE REPOSITORY TYPE CODE TESTS RESULT OUT OF REFERENCE UNITS RANGE LAB CMVMR(LOIN Negative C) CMV IgM, Qual Negative LAB CMVM(LOINC AU/mL ) CMV IgM <8.0 Antibody Performed By: #### CBCDIF, VITD, CMP, MG1, PHOS, FREET3, FT4, TSH, EBVG, EBVM, CMVMAB #### [facility] Routine Lab [address] [place] [phone] #### NATE, 125VTD #### [facility] Chemistry [address] [place] [phone] VITAMIN A Collected: 04/30/2018 Status: F Source: [place] 8:37 AM [facility] REFERENCE REPOSITORY TYPE CODE TESTS RESULT OUT OF REFERENCE UNITS RANGE LAB NATE(LOINC) 0.30-1.20 mg/L Vitamin A 0.74 Performed By: #### CBCDIF, VITD, CMP, MG1, PHOS, FREET3, FT4, TSH, EBVG, EBVM, CMVMAB #### [facility] Routine Lab [address] [place] [phone] #### NATE, 125VTD #### [facility] Chemistry [address] [place] [phone] VITD, 1,25 DIHYDROXY Collected: 04/30/2018 Status: F Source: [place] 8:37 AM [facility] REFERENCE REPOSITORY TYPE CODE TESTS RESULT OUT OF REFERENCE UNITS RANGE LAB 125D2(LOIN pg/mL C) 1,25 Dihydroxy VitD2 <4.0 LAB 125D3(LOIN pg/mL C) 1,25 Dihydroxy VitD3 59.2 LAB [id number](AUDRA 15.0-60.0 NC) Vit D,1,25 DiOH Result Comment: 59.2 This test was developed and its performance characteristics determined by [facility]'s Bernard Haley [facility] Pathology and Laboratory Medicine [place] ([facility]). It has not been cleared or approved by the FDA. -[facility] is regulated under CLIA as qualified to perform high-complexity testing. This test is used for clinical purposes. It should not be regarded as investigational or for research. Performed By: #### CBCDIF, VITD, CMP, MG1, PHOS, FREET3, FT4, TSH, EBVG, EBVM, CMVMAB #### [facility] Routine Lab [address] [place] [address] #### NATE, 125VTD #### [facility] Chemistry [address] [place] [address] REVERSE T3 Collected: 04/30/2018 Status: F Source: [place] 8:37 AM CLINIC REFERENCE REPOSITORY TYPE CODE TESTS RESULT OUT OF REFERENCE UNITS RANGE LAB REVT3(LOINC 9.0-27.0 ng/dL ) Reverse T3 15.2 Performed By: #### CBCDIF, VITD, CMP, MG1, PHOS, FREET3, FT4, TSH, EBVG, EBVM, CMVMAB #### [facility] Routine Lab [address] [place] [phone] #### NATE, 125VTD #### [facility] Chemistry [address] [place] [phone] PROGRESS Observed: 04/22/2018 Status: COMPLETED Source: [place] 11:58 AM [facility] [place] REPOSITORY HNO ID: [id number] Author: Heaven Diaz MA Service: (none) Author Type: (none) Type: Progress Notes Filed: 04/22/2018 4:47 PM Note Text: Assessment interrupted by medical provider, unable to complete nursing assessment. PROGRESS Observed: 04/22/2018 Status: COMPLETED Source: [place] 11:56 AM [facility] [place] REPOSITORY HNO ID: [id number] Author: Sara Chin Service: (none) Author Type: [...] mouth. fluconazole (DIFLUCAN) 200 mg tablet Fish Oil-Marilla-3 Fatty Acids 300-1,000 mg cap Take by [...] Health) take three capsules daily with meals doxycycline [...] - back off if loose stools One Marilla (Pure Encapsulation) Take 2 capsules by mouth [...] speaking easily. Better when she was in [place]. Had illness and Dr. Livingston felt it [...] tick borne illness and elevated Lead by [place] ?- did IV EDTA 26 tx and [...] dz w/ CIRS-WDB and elevated Lead by [place] ?- getting IV EDTA 9 tx. Jock [...] Abs Lymph 1.00 - 4.00 k/uL 1.91 [place]% % 7.6 Abs [place] <0.87 k/uL 0.54 Eosin% % 1.0 Abs [...] ng/dL 10.4 Bioelectrical Impedance Analysis Results by [employer] 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 Dec 2017 reviewed Oct 2017[facility] neuro Dr. Nicole ISAAC note Postmenopausal - Address w/ Dr. [...] ?? Detoxification Function WOLFF Many amalgams 2017 [place] repeat compared to November 2016 after 13 [...] ringing occurs - stop nasal sprayFAXED to [facility] pharmacy Dispense: 1 Each Refill: 1 Estradiol [...] keto, or AMB)-->NAC(250-500mg oral QD or BID)-->oral antifungal(ifpusgzv882,000 u orally, 1-4x a day, diflucan 100mg [...] DO CNOV Observed: 04/22/2018 Status: COMPLETED Source: [place] 11:45 AM [facility] REPOSITORY Office Visit (MEDN) SANAM HUDSON ([id number]) 1955 F Date Time Provider Department 04/22/18 11:45 AM [facility] During your visit today, we recorded the [...] mouth. fluconazole (DIFLUCAN) 200 mg tablet Fish Oil-Marilla-3 Fatty Acids 300-1,000 mg cap Take by [...] Querctin and Abbie ((600mg each) [employer]) take three capsules daily with meals doxycycline [...] - back off if loose stools One Marilla (Pure Encapsulation) Take 2 capsules by mouth [...] Laterality Date - COLONOSCOP W/ OR W/O [facility] SPEC 2003 Colonoscopy - COLONOSCOP W/ OR W/O BRS SPEC 10/01/14 Colonoscopy - EGD W/O [facility] SPECIMEN W/BX 03/09/06 Hiatal hernia/gastritis/esophagitis - EGD [...] Social History Marital status: Spouse name: marita styer Years of education: 22 Number of children: [...] speaking easily. Better when she was in [place]. Had illness and Dr. Livingston felt it [...] tick borne illness and elevated Lead by [place] ?- did IV EDTA 26 tx and [...] dz w/ CIRS-WDB and elevated Lead by [place] ?- getting IV EDTA 9 tx. Jock [...] Abs Lymph 1.00 - 4.00 k/uL 1.91 [place]% % 7.6 Abs [place] <0.87 k/uL 0.54 Eosin% % 1.0 Abs [...] ng/dL 10.4 Bioelectrical Impedance Analysis Results by [employer] 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 Dec 2017 reviewed Oct 2017[facility] neuro Dr. Nicole ISAAC note Postmenopausal - Address w/ Dr. [...] ?? Detoxification Function WOLFF Many amalgams 2017 [place] repeat compared to November 2016 after 13 [...] keto, or AMB)-->NAC(250-500mg oral QD or BID)-->oral antifungal(dmqbfizt071,000 u orally, 1-4x a day, diflucan 100mg [...] keto, or AMB)-->NAC(250-500mg oral QD or BID)-->oral antifungal(akglbfej762,000 u orally, 1-4x a day, diflucan 100mg [...] capsuleRfl: 2 ESTRADIOL-17B BLD [SQE2] Order #: [id number] FUTURE PROGESTERONE BLD [SQPROG] Order #: [id number] FUTURE DHEA-S BLD [SQDHEAS] Order #: [id number] FUTURE TESTOSTERONE, FREE AND TOTAL [SQFTESTO] Order #: [id number] FUTURE Prescriptions as of 04/22/2018 Sig: COMPOUNDED [...] occurs - stop nasal [facility]FA[facility]ED [facility] Dispense: 1 Each Refill: 1 Estradiol [...] keto, or AMB)-->NAC(250-500mg oral QD or BID)-->oral antifungal(zlupqrte904,000 u orally, 1-4x a day, diflucan 100mg [...] occurs - stop nasal spray FAXED to [facility] pharmacy COMPOUNDED PRESCRIPTION 60 c* 2 04/22/2018 [...] AND DIFFERENTIAL Collected: 03/11/2018 Status: F Source: [place] 9:13 AM [facility] REFERENCE REPOSITORY TYPE CODE TESTS RESULT OUT [...] Abs Lymph 1.91 LAB AMONO(LOIN % C) [place]% 7.6 LAB AAMONO(AUDRA <0.87 k/uL NC) Abs [place] 0.54 LAB AEOS(LOINC % ) Eosin% 1.0 LAB AAEOS(LOIN <0.46 k/uL C) Abs Eosin 0.07 LAB ABASO(LOIN % C) Baso% 0.4 LAB AABASO(AUDRA <0.11 k/uL NC) Abs Baso 0.03 Performed By: #### MG1, TSH, FREET3, FT4, VITD #### [facility] Routine Lab [address] [place], [place] [address] #### XMICTG #### [facility] Immuno Assay [address] [place] [address] #### NATE #### [facility] Chemistry [address] [place] [address] AMMONIA Collected: 03/11/2018 Status: F Source: CRAW[place] 9:13 AM [facility] REFERENCE REPOSITORY TYPE CODE TESTS RESULT OUT OF REFERENCE UNITS RANGE LAB NH3(LOINC) 11-51 umol/L Ammonia 16 Performed By: #### MG1, TSH, FREET3, FT4, VITD #### [facility] Routine Lab [address] [place] [address] #### XMICTG #### [facility] Immuno Assay [address] [place] [phone] #### NATE #### [facility] Chemistry [address] [place] [address] COMP METABOLIC PANEL Collected: 03/11/2018 Status: F Source: [place] 9:13 AM [facility] REFERENCE REPOSITORY TYPE CODE TESTS RESULT OUT [...] #### MG1, TSH, FREET3, FT4, VITD #### [facility] Routine Lab [address] [place] [phone] #### XMICTG #### [facility] Immuno Assay [address] [place] [phone] #### NATE #### [facility] Chemistry [address] [place] [phone] PHOSPHORUS Collected: 03/11/2018 Status: F Source: [place] 9:13 AM CLINIC REFERENCE REPOSITORY TYPE CODE TESTS RESULT OUT OF REFERENCE UNITS RANGE LAB PHOS(LOINC 2.7-4.8 mg/dL ) Phosphorus 3.4 Performed By: #### MG1, TSH, FREET3, FT4, VITD #### [facility] Routine Lab [address] [place] [phone] #### XMICTG #### [facility] Immuno Assay [address] [place] [phone] #### NATE #### [facility] Chemistry [address] [place] [phone] MAGNESIUM Collected: 03/11/2018 Status: F Source: [place] 9:13 AM CLINIC REFERENCE REPOSITORY TYPE CODE TESTS RESULT OUT OF REFERENCE UNITS RANGE LAB MG(LOINC) 1.7-2.3 mg/dL Magnesium 2.2 Performed By: #### MG1, TSH, FREET3, FT4, VITD #### [facility] Routine Lab [address] [place] [phone] #### XMICTG #### [facility] Immuno Assay [address] [place] [phone] #### NATE #### [facility] Chemistry [address] [place] [phone] TSH Collected: 03/11/2018 Status: F Source: [place] 9:13 AM CLINIC REFERENCE REPOSITORY TYPE CODE TESTS RESULT OUT OF RANGE REFERENCE UNITS LAB TSH(LOINC) 0.400-5.500 uU/mL High TSH 28.790 Performed By: #### MG1, TSH, FREET3, FT4, VITD #### [facility] Routine Lab [address] [place], [place] [address] #### XMICTG #### [facility] Immuno Assay [address] [place], [place] [phone] #### NATE #### [facility] Chemistry [address] [place], [place] [phone] FREE T3 Collected: 03/11/2018 Status: F Source: [place] 9:13 AM CLINIC REFERENCE REPOSITORY TYPE CODE TESTS RESULT OUT OF RANGE REFERENCE UNITS LAB FREET3(LOIN 2.3-4.1 pg/mL C) Free T3 3.1 Performed By: #### MG1, TSH, FREET3, FT4, VITD #### [facility] Routine Lab [address] [place], [place] [address] #### XMICTG #### [facility] Immuno Assay [address] [place], [place] [phone] #### NATE #### [facility] Chemistry [address] [place], [place] [phone] FREE T4 Collected: 03/11/2018 Status: F Source: [place] 9:13 AM CLINIC REFERENCE REPOSITORY TYPE CODE TESTS RESULT OUT OF RANGE REFERENCE UNITS LAB FT4(LOINC) 0.9-1.7 ng/dL Low Free T4 0.7 Performed By: #### MG1, TSH, FREET3, FT4, VITD #### [facility] Routine Lab [address] [place], [place] [phone] #### XMICTG #### [facility] Immuno Assay [address] [place] [phone] #### NATE #### [facility] Chemistry [address] [place], [place] [phone] THYROID ANTIBODIES Collected: 03/11/2018 Status: F Source: [facility] REF LAB USE ONLY 9:13 AM CLINIC REFERENCE REPOSITORY TYPE CODE TESTS RESULT OUT OF REFERENCE UNITS RANGE LAB MICRO(LOIN <5.6 IU/mL C) TPO Antibody <1.0 LAB TGAB(LOINC <14.4 IU/mL ) Thyroglobulin Ab <1.0 Performed By: #### MG1, TSH, FREET3, FT4, VITD #### [facility] Routine Lab [address] [place], [place] [address] #### XMICTG #### [facility] Immuno Assay [address] [place], [place] [phone] #### NATE #### [facility] Chemistry [address] [place], [place] [phone] VITAMIN D 25 HYDROXY Collected: 03/11/2018 Status: F Source: [place] 9:13 AM CLINIC REFERENCE REPOSITORY TYPE CODE TESTS RESULT OUT OF REFERENCE UNITS RANGE LAB VITD(LOINC) 31.0-80.0 ng/mL Low Vitamin D 25 23.1 Hydroxy Performed By: #### MG1, TSH, FREET3, FT4, VITD #### [facility] Routine Lab [address] [place], [place] [phone] #### XMICTG #### [facility] Immuno Assay [address] [place], [place] [phone] #### NATE #### [facility] Chemistry [address] [place], [place] [phone] VITAMIN A Collected: 03/11/2018 Status: F Source: [place] 9:13 AM CLINIC REFERENCE REPOSITORY TYPE CODE TESTS RESULT OUT OF REFERENCE UNITS RANGE LAB NATE(LOINC) 0.30-1.20 mg/L Vitamin A 0.50 Performed By: #### MG1, TSH, FREET3, FT4, VITD #### [facility] Routine Lab [address] [place] [address] #### XMICTG #### [facility] Immun[facility] Assay [address] [place] [phone] #### NATE #### [facility] Chemistry [address] [place] [address] REVERSE T3 Collected: 03/11/2018 Status: F Source: [place] 9:13 AM CLINIC REFERENCE REPOSITORY TYPE CODE TESTS RESULT OUT OF REFERENCE UNITS RANGE LAB REVT3(LOINC 9.0-27.0 ng/dL ) Reverse T3 10.4 Performed By: #### MG1, TSH, FREET3, FT4, VITD #### [facility] Routine Lab [address] [place] [phone] #### XMICTG #### [facility] Immuno Assay [address] [place] [phone] #### NATE #### [facility] Chemistry [address] [place] [address] PROGRESS Observed: 12/11/2017 Status: COMPLETED Source: [place] 1:33 PM [facility] REPOSITORY HNO ID: [id number] Author: Sara Chin Service: (none) Author Type: [...] - back off if loose stools One Marilla (Pure Encapsulation) Take 2 capsules by mouth [...] Laterality Date - COLONOSCOP W/ OR W/O [facility] SPEC 2003 Colonoscopy - COLONOSCOP W/ OR W/O [facility] SPEC 10/01/14 Colonoscopy - EGD W/O [facility] SPECIMEN W/BX 03/09/06 Hiatal hernia/gastritis/esophagitis - EGD W/O OR W/BRUSH/WASH 10/01/14 EGD - LAP CHOLECYSTECT/CHOLANGIOGRAPHY 03/12/06 - PAST SURGICAL HISTORY OF 03/12/2006 transvaginal sling - REMOVAL OF OVARY/TUBE(S) 10/25/00 Salpingo-oophorectomy - REMOVAL OF SKIN TAGS -15 03/18/11 Ablation skin tags/ shave bx x [...] tick borne illness and elevated Lead by [place] ?- did IV EDTA 26 tx and [...] 1. Walking 2. 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 Jock [...] Hair falling out - bothering her 2. [place] worse on Glutathione/hot bath to do RTL QUAD 3. [place] better w/ 13 EDTA, but after hot [...] dz w/ CIRS-WDB and elevated Lead by [place] ?- getting IV EDTA 9 tx. Jock [...] COMMENT Hb Screen Review Reviewed by Sony Daigle MD, PhD. ([id number]) [place] B Type 1 <1:10 1:80 (A) [...] Report (NOTE) Bioelectrical Impedance Analysis Results by [employer] Recent Results from: 09/06/16 at 10:24 [...] her work bldg Stress - full prof [facility], good repuation, Reprimanded for a good deed [...] ?? Detoxification Function WOLFF Many amalgams 2017 [place] repeat compared to November 2016 after 13 [...] - reviewed [facility] 2017[place] [facility] Nicole ISAAC note Postmenopausal - Address w/ Dr. [...] keto, or AMB)-->NAC(250-500mg oral QD or BID)-->oral antifungal(kderyubh815,000 u orally, 1-4x a day, diflucan 100mg once every OTHER week)?-->?oral biofilm buster Instructions AND Resources Return in 4 months with me. Do hyperbarics and consider infrared sauna Time with patient: 45 minutes spent with the patient >50% counseling regarding diagnoses above. Parts of this note have been dictated. Sara Chin DO CNOV Observed: 12/11/2017 Status: COMPLETED Source: [place] 1:15 PM [facility] REPOSITORY Office Visit (MEDFMN) SANAM HUDSON ([id number]) 1955 F Date Time Provider Department 12/11/17 1:15 PM [facility] During your visit today, we recorded the [...] - back off if loose stools One Marilla (Pure Encapsulation) Take 2 capsules by mouth [...] tick borne illness and elevated Lead by [place] ?- did IV EDTA 26 tx and [...] dz w/ CIRS-WDB and elevated Lead by [place] ?- getting IV EDTA 9 tx. Jock [...] Hair falling out - bothering her 2. [place] worse on Glutathione/hot bath to do RTL QUAD 3. [place] better w/ 13 EDTA, but after hot [...] dz w/ CIRS-WDB and elevated Lead by [place] ?- getting IV EDTA 9 tx. Jock [...] COMMENT Hb Screen Review Reviewed by Sony Daigle MD, PhD. ([id number]) [place] B Type 1 ANDlt;1:10 1:80 (A) [...] Report (NOTE) Bioelectrical Impedance Analysis Results by [employer]. Recent Results from: 09/06/16 at 10:24 AM [...] her work bldg Stress - full prof [facility], good repuation, Reprimanded for a good deed [...] ?? Detoxification Function WOLFF Many amalgams 2017 [place] repeat compared to November 2016 after 13 [...] - reviewed Oct 2017[place] [facility] Nicole ISAAC note Postmenopausal - Address w/ Dr. [...] keto, or AMB)--ANDgt;NAC(250-500mg oral QD or BID)--ANDgt;oral antifungal(vhskyxdk093,000 u orally, 1-4x a day, diflucan 100mg once every OTHER week)?--ANDgt;?oral biofilm buster Instructions ANDamp; Resources Return in 4 months with me. Do hyperbarics and consider infrared sauna Time with patient: 45 minutes spent with the patient ANDgt;50% counseling regarding diagnoses above. Parts of this note have been dictated. DO Sara Temple DO 12/11/2017 2:18 PM Signed Medication orders placed this encounter Querctin and Abbie ((600mg each) [employer]) Sig: take three capsules daily with meals Refill: 0 Additional Recommendations Today's plan - reviewed Oct 2017[place] [facility]. Nicole ISAAC note Postmenopausal - Address w/ Dr. Livingston Cough - try Quercitin On AA powder from [facility] and NAD CIRS - was sick with gordy, On Argentyn Next visit?- ? address mold? Order BEGs and nystatin nasal spray ???Beyond Balance Tox-ease ??add ?glutamine Future? 23ANDamp;me, BHRT ?? Treatments: (binders--ANDgt;argentyn nasal spray 1 spray BID--ANDgt;BEGS (nasal biofilm) ----ANDgt;antifungal nasal spray (nystatin, keto, or AMB)--ANDgt;NAC(250-500mg oral QD or BID)--ANDgt;oral antifungal(brdfsjer945,000 u orally, 1-4x a day, diflucan 100mg [...] Additional Recommendations Today's plan - reviewed Oct 2017[place] [facility] neuro Dr. Nicole ISAAC note Postmenopausal - Address w/ Dr. Livingston Cough - try Quercitin On AA powder from [facility] and AUDREY CIRS - was sick with gordy, On Argentyn Next visit?- ? address mold? Order BEGs and nystatin nasal spray ???Beyond Balance Tox-ease ??add ?glutamine Future? 23ANDme, BHRT ?? Treatments: (binders-->argentyn nasal spray 1 spray BID-->BEGS (nasal biofilm) ---->antifungal nasal spray (nystatin, keto, or AMB)-->NAC(250-500mg oral QD or BID)-->oral antifungal(cqdwrexd780,000 u orally, 1-4x a day, diflucan 100mg once every OTHER week)?-->?oral biofilm buster Instructions AND Resources Return in 4 months with me. Do hyperbarics and consider infrared sauna Prescriptions ordered this encounter Disp Refills Start End OTC NUTRITIONAL SUPPLEMENT 0 12/11/2017 Class: OTC Sig: take three capsules daily with meals Encounter Status:Closed by SARA CHIN on 12/11/17 ANTI-STREPTOLYSIN O Collected: Status: F Source: [place] 11/12/2017 9:30 AM CLINIC REFERENCE REPOSITORY TYPE CODE TESTS RESULT OUT OF RANGE REFERENCE UNITS LAB ASO(LOINC) <201 IU/mL <20 Anti-Strepto lysin O Performed By: #### ASO #### [facility] Routine Lab [address] [place], [place] [address] MISC SEND OUT TEST Collected: 11/12/2017 Status: C Source: [place] 9:30 AM CLINIC REFERENCE REPOSITORY TYPE CODE TESTS RESULT OUT OF RANGE REFERENCE UNITS LAB NAME1(LOINC ) Test Result Comment: [place] Corrected on 11/16 AT 1427: Previously reported as [place] 1 SPECIES, Corrected on 11/16 AT 1427: Previously reported as [place] MO 1 MOLECULAR Corrected on / AT 1427: Previously reported as [place] 1 DETECTION, PCR, Corrected on 03 AT 1427: Previously reported as [place] 1 BLOOD Corrected on 03 AT 1427: Previously reported as [place] 1 LAB RESU1(LOINC) Test Results Result Comment: Refer to supplemental report Faxed to [phone] Test performed by: [facility], [place], [place] Performed By: #### [id number] #### [facility] Laboratories Reference [address], [place] [address] MTHFR GENE ANALYSIS Collected: 11/12/2017 Status: F Source: [place] 9:30 AM [facility] REFERENCE REPOSITORY TYPE CODE TESTS RESULT OUT OF REFERENCE UNITS RANGE LAB MTHINT(LOIN C) MTHF Report Result Comment: (NOTE) Performing Pathologist: Rosa Kottke Honey, M.D., Ph.D. RESULT: c.665C>T (p.Ppn684Roy)(historicallythermolabile,C677T): NOT DETECTED c.1286A>C (p.Zun727Tyl) (historically [id number]): HETEROZYGOUS INTERPRETATION: The above genotype is unlikely [...] >25% of Hispanics and 10-15% of North Spanish Caucasians are homozygous for the c.665C>T variant. [...] risk to a clinically significant degree. The [employer] 2013 Practice Guideline references the limited clinical utility of MTHFR variant analysis, therefore this testing should not be ordered as a part of a routine evaluation for thrombophilia. METHOD: Patient DNA is assayed for I6628R and C677T point mutations in the MTHFR gene by LightMix? technology, consisting of polymerase chain reaction (PCR) followed by melting curve analysis. This test was developed and its performance characteristics determined by [facility] [place] ([facility]). It has not been cleared or approved by the FDA. [facility] is regulated under CLIA as qualified to [...] are not excluded by this test. REFERENCES Farraro V, Ike I, Ping E, Wesley B, Jayjay G. Interaction between hyperhomocysteinemia and inherited thrombophilic factors in venous thromboembolism. Semin Thromb Hemost 2000;26:305?311. [place] SE, Hugo CJ, Darlene MATIAS. ACMG Practice Guideline: lack of evidence for MTHFR polymorphism testing. Diamond Med 2013:15(2):153?156. Jessica Haile, Eugenio Flores; Committee on Practice Bulletins?Obstetrics. Practice Bulletin no. 124: Inherited thrombophilias in . Obstet Gynecol 2011;118(3):730?740. OMIM. 5,10-Methylenetetrahydrofolate Reductase; MTHFR. http://omim.org/entry/504004 Rhett Rasheed. Should the MTHFR 1298A>C polymorphism be considered in the clinical evaluation of patients at risk for thrombotic disease? Diamond Nxd1364;7(9):655. Rhett Rasheed, Marika A, D'Edson A, Palmsteff M, Deonte L, Keke K. No association between the MTHFR N5258D and transcobalamin C776G genetic polymorphisms and hyperhomocysteinemia in thrombotic disease. Thromb Ewc1887;108:127?131. eSensor Thrombophilia Risk Test Product Insert. [employer]. [place], [place] This test was developed and manufactured by [employer] as a U.S. Food and Drug Administration approved In Vitro Diagnostics (IVD) test. Its performance characteristics for clinical usage have been determined by the Pathology and Laboratory Medicine [place] at the [facility] according to the [employer] instruction. [facility] SEND OUT TEST Collected: 11/12/2017 Status: C Source: [place] 9:30 AM CLINIC REFERENCE REPOSITORY TYPE CODE [...] Comment: Refer to supplemental report Faxed to [phone] Performed at [place], [place] Performed By: #### [id number] #### [facility] Reference [address] [place] [phone] AMMONIA Collected: 11/12/2017 Status: F Source: [place] 8:55 AM CLINIC REFERENCE REPOSITORY TYPE CODE TESTS RESULT OUT OF REFERENCE UNITS RANGE LAB NH3(LOINC) 11-51 umol/L Ammonia 14 Performed By: #### NH3, SHBG2, FTESTO, SERFOL, CERULO, MG1, PHOS, DHEAS, E2, PROG, CMVMAB, HBA1C, VITD, EBVG, EBVM, HSVG12 #### [facility] Routine Lab [address] [place] [phone] #### COR #### [facility] Immuno Assay [address] [place] [phone] #### HBELEC #### [facility] Hematology [address] [place] [phone] #### NATE, 125VTD #### [facility] Chemistry [address] [place] [phone] #### [id number] #### [facility] Reference [address] [place] [phone] SEX HORMONE BIND GLB Collected: 11/12/2017 Status: F Source: [place] 8:55 AM CLINIC REFERENCE REPOSITORY TYPE CODE TESTS RESULT OUT OF REFERENCE UNITS RANGE LAB SHBG2(LOINC 17-125 nmol/L ) Sex Hormone 64 Bind Glb Performed By: #### NH3, SHBG2, FTESTO, SERFOL, CERULO, MG1, PHOS, DHEAS, E2, PROG, CMVMAB, HBA1C, VITD, EBVG, EBVM, HSVG12 #### [facility] Routine Lab [address] [place] [phone] #### COR #### [facility] Immuno Assay [address] [place], [place] [phone] #### HBELEC #### [facility] Hematology [address] [place], [place] [address] #### NATE, 125VTD #### [facility] Chemistry [address] [place], [place] [address] #### [id number] #### [facility] Reference [address] [place], [place] [phone] FREE TESTOSTERONE Collected: 11/12/2017 Status: F Source: [place] 8:55 AM CLINIC REFERENCE REPOSITORY TYPE CODE TESTS RESULT OUT OF REFERENCE UNITS RANGE LAB TESTO(LOIN <40 ng/dL C) Testosterone 14 LAB FREE(LOINC 0.8-2.3 % ) Free High Testosterone % 2.7 LAB FRTSTO(AUDRA 1.8-10.4 pg/mL NC) Free Testosterone 3.7 Performed By: #### NH3, SHBG2, FTESTO, SERFOL, CERULO, MG1, PHOS, DHEAS, E2, PROG, CMVMAB, HBA1C, VITD, EBVG, EBVM, HSVG12 #### [facility] Routine Lab [address] [place] [phone] #### COR #### [facility] Immuno Assay [address] [place], [place] [address] #### HBELEC #### [facility] Hematology [address] [place], [place] [address] #### NATE, 125VTD #### [facility] Chemistry [address] [place], [place] [address] #### [id number] #### [facility] Reference [address] [place] [phone] FOLATE, SERUM Collected: 11/12/2017 Status: F Source: [place] 8:55 AM CLINIC REFERENCE REPOSITORY TYPE CODE TESTS RESULT OUT OF RANGE REFERENCE UNITS LAB SERFOL(LOIN >4.7 ng/mL C) Folate, 18.6 Serum Performed By: #### NH3, SHBG2, FTESTO, SERFOL, CERULO, MG1, PHOS, DHEAS, E2, PROG, CMVMAB, HBA1C, VITD, EBVG, EBVM, HSVG12 #### [facility] Routine Lab [address] [phone] #### COR #### [facility] Immuno Assay [address] [phone] #### HBELEC #### [facility] Hematology [address] [place], [place] [address] #### NATE, 125VTD #### [facility] Chemistry [address] [place], [place] [address] #### [id number] #### [facility] Reference [address] [place] [phone] CERULOPLASMIN Collected: 11/12/2017 Status: F Source: [place] 8:55 CLINIC REFERENCE REPOSITORY TYPE CODE TESTS RESULT OUT OF REFERENCE UNITS RANGE LAB CERULO(AUDRA 16-45 mg/dL NH) Ceruloplasmin 23 Performed By: #### NH3, SHBG2, FTESTO, SERFOL, CERULO, MG1, PHOS, DHEAS, E2, PROG, CMVMAB, HBA1C, VITD, EBVG, EBVM, HSVG12 #### [facility] Routine Lab [address] [phone] #### COR #### [facility] Immuno Assay [address] [phone] #### HBELEC #### [facility] Hematology [address] [place] [phone] #### NATE, 125VTD #### [facility] Chemistry [address] [place] [phone] #### [id number] #### [facility] Reference [address] [place] [phone] CORTISOL Collected: 11/12/2017 Status: F Source: [place] 8:55 AM [facility] REFERENCE REPOSITORY TYPE CODE TESTS RESULT OUT OF REFERENCE UNITS RANGE LAB COR(LOINC) ug/dL Cortisol 12.5 Performed By: #### NH3, SHBG2, FTESTO, SERFOL, CERULO, MG1, PHOS, DHEAS, E2, PROG, CMVMAB, HBA1C, VITD, EBVG, EBVM, HSVG12 #### [facility] Routine Lab [address] [place] [phone] #### COR #### [facility] Immuno Assay [address] [place] [phone] #### HBELEC #### [facility] Hematology [address] [place] [phone] #### NATE, 125VTD #### [facility] Chemistry [address] [place] [phone] #### [id number] #### [facility] Reference [address] [place] [phone] MAGNESIUM Collected: 11/12/2017 Status: F Source: [place] 8:55 AM [facility] REFERENCE REPOSITORY TYPE CODE TESTS RESULT OUT OF REFERENCE UNITS RANGE LAB MG(LOINC) 1.7-2.3 mg/dL Magnesium 2.2 Performed By: #### NH3, SHBG2, FTESTO, SERFOL, CERULO, MG1, PHOS, DHEAS, E2, PROG, CMVMAB, HBA1C, VITD, EBVG, EBVM, HSVG12 #### [facility] Routine Lab [address] [place] [phone] #### COR #### [facility] Immuno Assay [address] [place] [phone] #### HBELEC #### [facility] Hematology [address] [place] [phone] #### NATE, 125VTD #### [facility] Chemistry [address] [place] [phone] #### [id number] #### [facility] Reference [address] [place] [phone] PHOSPHORUS Collected: 11/12/2017 Status: F Source: [place] 8:55 AM CLINIC REFERENCE REPOSITORY TYPE CODE TESTS RESULT OUT OF REFERENCE UNITS RANGE LAB PHOS(LOINC 2.7-4.8 mg/dL ) Phosphorus 3.8 Performed By: #### NH3, SHBG2, FTESTO, SERFOL, CERULO, MG1, PHOS, DHEAS, E2, PROG, CMVMAB, HBA1C, VITD, EBVG, EBVM, HSVG12 #### [facility] Routine Lab [address] [place] [phone] #### COR #### [facility] Immuno Assay [address] [place], [place] [address] #### HBELEC #### [facility] Hematology [address] [place] [phone] #### NATE, 125VTD #### [facility] Chemistry [address] [place] [phone] #### [id number] #### [facility] Reference [address] [place], [place] [phone] DHEA-S Collected: 11/12/2017 Status: F Source: [place] 8:55 AM CLINIC REFERENCE REPOSITORY TYPE CODE TESTS RESULT OUT OF RANGE REFERENCE UNITS LAB DHEAS(LOINC 18.9-205.0 ug/dL ) DHEA-S 121.3 Performed By: #### NH3, SHBG2, FTESTO, SERFOL, CERULO, MG1, PHOS, DHEAS, E2, PROG, CMVMAB, HBA1C, VITD, EBVG, EBVM, HSVG12 #### [facility] Routine Lab [address] [place] [phone] #### COR #### [facility] Immuno Assay [address] [phone] #### HBELEC #### [facility] Hematology [address] [place] [phone] #### NATE, 125VTD #### [facility] Chemistry [address] [place] [phone] #### [id number] #### [facility] Reference [address] [place] [phone] ESTRADIOL-17B Collected: 11/12/2017 Status: F Source: [place] 8:55 [facility] REFERENCE REPOSITORY TYPE CODE TESTS RESULT OUT OF RANGE REFERENCE UNITS LAB E2(LOINC) pg/mL <25 Estradiol-17 B Performed By: #### NH3, SHBG2, FTESTO, SERFOL, CERULO, MG1, PHOS, DHEAS, E2, PROG, CMVMAB, HBA1C, VITD, EBVG, EBVM, HSVG12 #### [facility] Routine Lab [address] [place] [phone] #### COR #### [facility] Immuno Assay [address] [place] [phone] #### HBELEC #### [facility] Hematology [address] [place] [phone] #### NATE, 125VTD #### [facility] Chemistry [address] [place] [phone] #### [id number] #### [facility] Reference [address] [place] [phone] PROGESTERONE Collected: 11/12/2017 Status: F Source: [place] 8:55 CLINIC REFERENCE REPOSITORY TYPE CODE TESTS RESULT OUT OF REFERENCE UNITS RANGE LAB PROG(LOINC ng/mL ) Progesterone <0.2 Performed By: #### NH3, SHBG2, FTESTO, SERFOL, CERULO, MG1, PHOS, DHEAS, E2, PROG, CMVMAB, HBA1C, VITD, EBVG, EBVM, HSVG12 #### [facility] Routine Lab [address] [phone] #### COR #### [facility] Immuno Assay [address] [place] [phone] #### HBELEC #### [facility] Hematology [address] [place], [place] [phone] #### NATE, 125VTD #### [facility] Chemistry [address] [place], [place] [phone] #### [id number] #### [facility] Reference [address] [place] [phone] CMV IGM ANTIBODY Collected: 11/12/2017 Status: F Source: [place] 8:55 CLINIC REFERENCE REPOSITORY TYPE CODE TESTS RESULT OUT OF REFERENCE UNITS RANGE LAB CMVMR(LOIN Negative C) CMV IgM, Qual Negative LAB CMVM(LOINC AU/mL ) CMV IgM <8.0 Antibody Performed By: #### NH3, SHBG2, FTESTO, SERFOL, CERULO, MG1, PHOS, DHEAS, E2, PROG, CMVMAB, HBA1C, VITD, EBVG, EBVM, HSVG12 #### [facility] Routine Lab [address] [place] [phone] #### COR #### [facility] Immuno Assay [address] [phone] #### HBELEC #### [facility] Hematology [address] [place] [phone] #### NATE, 125VTD #### [facility] Chemistry [address] [place] [phone] #### [id number] #### [facility] Reference [address] [place] [phone] HEMOGLOBIN A1C Collected: 11/12/2017 Status: F Source: [place] 8:55 AM [facility] REFERENCE REPOSITORY TYPE CODE TESTS RESULT OUT OF REFERENCE UNITS RANGE LAB HGBA1C(AUDRA 4.3-5.6 % NC) Hemoglobin A1c 5.3 LAB HBA0(LOINC mg/dL ) Est. Average Glucose 105 Performed By: #### NH3, SHBG2, FTESTO, SERFOL, CERULO, MG1, PHOS, DHEAS, E2, PROG, CMVMAB, HBA1C, VITD, EBVG, EBVM, HSVG12 #### [facility] Routine Lab [address] [place] [phone] #### COR #### [facility] Immuno Assay [address] [place] [phone] #### HBELEC #### [facility] Hematology [address] [place] [phone] #### NATE, 125VTD #### [facility] Chemistry [address] [place] [phone] #### [id number] #### [facility] Reference [address] [place] [phone] VITAMIN D 25 HYDROXY Collected: 11/12/2017 Status: F Source: [place] 8:55 AM [facility] REFERENCE REPOSITORY TYPE CODE TESTS RESULT OUT OF REFERENCE UNITS RANGE LAB VITD(LOINC) 31.0-80.0 ng/mL Vitamin D 25 33.4 Hydroxy Performed By: #### NH3, SHBG2, FTESTO, SERFOL, CERULO, MG1, PHOS, DHEAS, E2, PROG, CMVMAB, HBA1C, VITD, EBVG, EBVM, HSVG12 #### [facility] Routine Lab [address] [place], [place] [address]d [place] [phone] #### COR #### [facility] Immuno Assay [address] [place] [phone] #### HBELEC #### [facility] Hematology [address] [place] [address] #### NATE, 125VTD #### [facility] Chemistry [address] [place] [address] #### [id number] #### [facility] Reference [address] [place] [address] HGB ELECTROPHORESIS Collected: 11/12/2017 Status: F Source: [place] 8:55 AM CLINIC REFERENCE REPOSITORY TYPE CODE [...] electrophoresis. Normal pattern LAB HBSREV(LOINC) Staff Review HEMANTH Performed By: #### NH3, SHBG2, FTESTO, SERFOL, CERULO, MG1, PHOS, DHEAS, E2, PROG, CMVMAB, HBA1C, VITD, EBVG, EBVM, HSVG12 #### [facility] Routine Lab [address] [place] [address] #### COR #### [facility] Immuno Assay [address] [place] [address] #### HBELEC #### [facility] Hematology [address] [place] [address] #### NATE, 125VTD #### [facility] Chemistry [address] [place] [address] #### [id number] #### [facility] Reference [address] [place] [address] EBV IGG ANTIBODY Collected: 11/12/2017 Status: F Source: [place] 8:55 AM [facility] REFERENCE REPOSITORY TYPE CODE TESTS RESULT OUT OF RANGE REFERENCE UNITS LAB EBVGQ(LOIN Negative C) Abnormal EBV Positive VCA IgG, Qual LAB EBVGX(LOIN AI C) EBV >8.0 VCA IgG Performed By: #### NH3, SHBG2, FTESTO, SERFOL, CERULO, MG1, PHOS, DHEAS, E2, PROG, CMVMAB, HBA1C, VITD, EBVG, EBVM, HSVG12 #### [facility] Routine Lab [address] [place] [phone] #### COR #### [facility] Immuno Assay [address] [place], [place] [phone] #### HBELEC #### [facility] Hematology [address] [place] [address] #### NATE, 125VTD #### [facility] Chemistry [address] [place], [place] [phone] #### [id number] #### [facility] Reference [address] [place] [phone] EBV IGM ANTIBODY Collected: 11/12/2017 Status: F Source: [place] 8:55 [facility] REFERENCE REPOSITORY TYPE CODE TESTS RESULT OUT OF REFERENCE UNITS RANGE LAB EBVMQ(LOINC Negative ) EBV VCA Negative IgM, Qual LAB EBVMX(LOINC AI ) EBV VCA 0.8 IgM Performed By: #### NH3, SHBG2, FTESTO, SERFOL, CERULO, MG1, PHOS, DHEAS, E2, PROG, CMVMAB, HBA1C, VITD, EBVG, EBVM, HSVG12 #### [facility] Routine Lab [address] [place] [phone] #### COR #### [facility] Immuno Assay [address] [place] [phone] #### HBELEC #### [facility] Hematology [address] [place] [phone] #### NATE, 125VTD #### [facility] Chemistry [address] [place] [phone] #### [id number] #### [facility] Reference [address] [place] [phone] HSVG TYP 1 AND 2 Collected: 11/12/2017 Status: F Source: [facility] 8:55 AM [facility] REFERENCE REPOSITORY TYPE CODE TESTS RESULT OUT [...] CMVMAB, HBA1C, VITD, EBVG, EBVM, HSVG12 #### [facility] Routine Lab [address] [place] [phone] #### COR #### [facility] Immuno Assay [address] [place] [phone] #### HBELEC #### [facility] Hematology [address] [place], [place] [phone] #### NATE, 125VTD #### [facility] Chemistry [address] [place] [phone] #### [id number] #### [facility] Reference [address] [place] [phone] CYSTATIN C Collected: 11/12/2017 Status: F Source: [place] 8:55 AM [facility] REFERENCE REPOSITORY TYPE CODE TESTS RESULT OUT OF REFERENCE UNITS RANGE AOF CYSC(LOINC) 0.61-0.95 mg/L Cystatin C 0.86 Performed By: #### NH3, SHBG2, FTESTO, SERFOL, CERULO, MG1, PHOS, DHEAS, E2, PROG, CMVMAB, HBA1C, VITD, EBVG, EBVM, HSVG12 #### [facility] Routine Lab [address] [address] #### COR #### [facility] Immuno Assay [address] [place] [phone] #### HBELEC #### [facility] Hematology [address] [place] [phone] #### NATE, 125VTD #### [facility] Chemistry [address] [place] [phone] #### [id number] #### [facility] Reference [address] [place] [address] VITAMIN A Collected: 11/12/2017 Status: F Source: [place] 8:55 AM [facility] REFERENCE REPOSITORY TYPE CODE TESTS RESULT OUT OF REFERENCE UNITS RANGE LAB NATE(LOINC) 0.30-1.20 mg/L Vitamin A 0.55 Performed By: #### NH3, SHBG2, FTESTO, SERFOL, CERULO, MG1, PHOS, DHEAS, E2, PROG, CMVMAB, HBA1C, VITD, EBVG, EBVM, HSVG12 #### [facility] Routine Lab [address] [place] [address] #### COR #### [facility] Immuno Assay [address] [place] [address] #### HBELEC #### [facility] Hematology [address] [place] [address] #### NATE, 125VTD #### [facility] Chemistry [address] [place] [address] #### [id number] #### [facility] Reference [address] [place], [place] [id number] BRUCELLA ABS IGG,IGM Collected: 11/12/2017 Status: F Source: [place] 8:55 AM CLINIC REFERENCE REPOSITORY TYPE CODE [...] CMVMAB, HBA1C, VITD, EBVG, EBVM, HSVG12 #### [facility] Routine Lab [address] [place] [phone] #### COR #### [facility] Immuno Assay [address] [place] [phone] #### HBELEC #### [facility] Hematology [address] [place] [phone] #### NATE, 125VTD #### [facility] Chemistry [address] [place] [phone] #### [id number] #### [facility] Reference [address] [place] [phone] MAG AB,IGM Collected: 11/12/2017 Status: F Source: [place] 8:55 AM CLINIC REFERENCE REPOSITORY TYPE CODE TESTS RESULT OUT OF RANGE REFERENCE UNITS LAB MAGIGT(LOIN 0-999 TU C) MAG 0 AB,IGM SARAH Performed By: #### NH3, SHBG2, FTESTO, SERFOL, CERULO, MG1, PHOS, DHEAS, E2, PROG, CMVMAB, HBA1C, VITD, EBVG, EBVM, HSVG12 #### [facility] Routine Lab [address] [place] [phone] #### COR #### [facility] Immuno Assay [address] [place] [phone] #### HBELEC #### [facility] Hematology [address] [phone] #### NATE, 125VTD #### [facility] Chemistry [address] [place], [place] [phone] #### [id number] #### [facility] Reference [address] [place] [phone] INFLUENZA A AND B AB Collected: 11/12/2017 Status: F Source: [place] 8:55 AM CLINIC REFERENCE REPOSITORY TYPE CODE [...] CMVMAB, HBA1C, VITD, EBVG, EBVM, HSVG12 #### [facility] Routine Lab [address] [place] [phone] #### COR #### [facility] Immuno Assay [address] [place], [place] [phone] #### HBELEC #### [facility] Hematology [address] [place] [phone] #### NATE, 125VTD #### [facility] Chemistry [address] [place] [phone] #### [id number] #### [facility] Reference [address] [place] [phone] HSV 1/2 IGM IFA Collected: 11/12/2017 Status: F Source: [place] 8:55 AM CLINIC REFERENCE REPOSITORY TYPE CODE TESTS RESULT OUT OF REFERENCE UNITS RANGE AOF HSV1IF(LOIN C) HSV 1 IgM NEGAT IFA Screen AOF HSV2IF(LOIN C) HSV 2 IgM Negative IFA Screen Performed By: #### NH3, SHBG2, FTESTO, SERFOL, CERULO, MG1, PHOS, DHEAS, E2, PROG, CMVMAB, HBA1C, VITD, EBVG, EBVM, HSVG12 #### [facility] Routine Lab [address] [place] [phone] #### COR #### [facility] Immuno Assay [address] [place], [place] [phone] #### HBELEC #### [facility] Hematology [address] [place], [place] [address] #### NATE, 125VTD #### [facility] Chemistry [address] [place], [place] [address] #### [id number] #### [facility] Reference [address] [place] [phone] PREGNENOLONE Collected: 11/12/2017 Status: F Source: [place] 8:55 AM [facility] REFERENCE REPOSITORY TYPE CODE TESTS RESULT OUT OF REFERENCE UNITS RANGE LAB PREGL(LOIN 15-132 ng/dL C) Pregnenolone 36 Performed By: #### NH3, SHBG2, FTESTO, SERFOL, CERULO, MG1, PHOS, DHEAS, E2, PROG, CMVMAB, HBA1C, VITD, EBVG, EBVM, HSVG12 #### [facility] Routine Lab [address] [place] [phone] #### COR #### [facility] Immuno Assay [address] [place] [phone] #### HBELEC #### [facility] Hematology [address] [place] [phone] #### NATE, 125VTD #### [facility] Chemistry [address] [place] [phone] #### [id number] #### [facility] Reference [address] [place] [phone] VITAMIN B6 PLASMA Collected: 11/12/2017 Status: F Source: [place] 8:55 [facility] REFERENCE REPOSITORY TYPE CODE TESTS RESULT OUT OF REFERENCE UNITS RANGE LAB VITB6(LOINC 20.0-125.0 nmol/L ) Vitamin B6 56.0 Plasma Performed By: #### NH3, SHBG2, FTESTO, SERFOL, CERULO, MG1, PHOS, DHEAS, E2, PROG, CMVMAB, HBA1C, VITD, EBVG, EBVM, HSVG12 #### [facility] Routine Lab [address] [place] [address] #### COR #### [facility] Immuno Assay [address] [place], [place] [phone] #### HBELEC #### [facility] Hematology [address] [place], [place] [phone] #### NATE, 125VTD #### [facility] Chemistry [address] [place] [phone] #### [id number] #### [facility] Reference [address] [place] [phone] VITD, 1,25 DIHYDROXY Collected: 11/12/2017 Status: F Source: [place] 8:[address] [place] [address] REFERENCE REPOSITORY TYPE CODE TESTS RESULT OUT OF REFERENCE UNITS RANGE LAB 125D2(LOIN C) 1,25 Dihydroxy VitD2 Result Comment: <8.0 Because of the small quantity of specimen received, a specimen dilution was made. At this dilution, this analyte was not detected. Therefore, the possible maximum concentration in the specimen was determined by the assay sensitivity. LAB 125D3(LOINC) pg/mL 1,25 Dihydroxy VitD3 41.6 LAB MQE668(LOINC) 15.0-60 .0 Vit D,1,25 DiOH Result Comment: 41.6 This test was developed and its performance characteristics determined by [facility]'s [facility] [place] ([facility]). It has not been cleared or approved [...] CMVMAB, HBA1C, VITD, EBVG, EBVM, HSVG12 #### [facility] Routine Lab [address] [place] [phone] #### COR #### [facility] Immuno Assay [address] [place], [place] [address] #### HBELEC #### [facility] Hematology [address] [place], [place] [address] #### NATE, 125VTD #### [facility] Chemistry [address] [place] [phone] #### WILD13 #### [facility] Reference [address] [place] [phone] DHEA Collected: 11/12/2017 Status: F Source: [place] 8:55 AM CLINIC REFERENCE REPOSITORY TYPE CODE TESTS RESULT OUT OF RANGE REFERENCE UNITS LAB DHEA(LOINC) 0.630-4.700 ng/mL DHEA 2.030 Performed By: #### NH3, SHBG2, FTESTO, SERFOL, CERULO, MG1, PHOS, DHEAS, E2, PROG, CMVMAB, HBA1C, VITD, EBVG, EBVM, HSVG12 #### [facility] Routine Lab [address] [place] [phone] #### COR #### [facility] Immuno Assay [address] [place] [phone] #### HBELEC #### [facility] Hematology [address] [place] [phone] #### NATE, 125VTD #### [facility] Chemistry [address] [place] [phone] #### WILD13 #### [facility] Reference [address] [place] [phone] COXSACKIE A AB Collected: 11/12/2017 Status: F Source: [place] 8:55 AM [facility] REFERENCE REPOSITORY TYPE CODE TESTS RESULT OUT OF REFERENCE UNITS RANGE LAB COXA9(LOIN <1:8 C) Coxsackie A9 Ab <1:8 Performed By: #### NH3, SHBG2, FTESTO, SERFOL, CERULO, MG1, PHOS, DHEAS, E2, PROG, CMVMAB, HBA1C, VITD, EBVG, EBVM, HSVG12 #### [facility] Routine Lab [address] [place] [phone] #### COR #### [facility] Immuno Assay [address] [place], [place] [address] #### HBELEC #### [facility] Hematology [address] [place] [phone] #### NATE, 125VTD #### [facility] Chemistry [address] [place] [phone] #### WILD13 #### [facility] Reference [address] [place] [phone] COXIELLA IGG ABS Collected: 11/12/2017 Status: F Source: [place] 8:55 [facility] REFERENCE REPOSITORY TYPE CODE TESTS RESULT OUT OF RANGE REFERENCE UNITS LAB IGGPH1(LOIN < 1:16 titer C) IgG Phase DLT16 1 LAB IGGPH2(LOIN < 1:16 titer C) IgG Phase <1:16 2 Performed By: #### NH3, SHBG2, FTESTO, SERFOL, CERULO, MG1, PHOS, DHEAS, E2, PROG, CMVMAB, HBA1C, VITD, EBVG, EBVM, HSVG12 #### [facility] Routine Lab [address] [place] [phone] #### COR #### [facility] Immuno Assay [address] [place] [phone] #### HBELEC #### [facility] Hematology [address] [place] [phone] #### NATE, 125VTD #### [facility] Chemistry [address] [place] [phone] #### WILD13 #### [facility] Reference [address] [place] [phone] COXIELLA IGM ABS Collected: 11/12/2017 Status: F Source: [place] 8:55 [facility] REFERENCE REPOSITORY TYPE CODE TESTS RESULT OUT OF RANGE REFERENCE UNITS LAB IGMPH1(LOIN < 1:16 titer C) IgM Phase DLT16 1 LAB IGMPH2(LOIN < 1:16 titer C) IgM Phase <1:16 2 Performed By: #### NH3, SHBG2, FTESTO, SERFOL, CERULO, MG1, PHOS, DHEAS, E2, PROG, CMVMAB, HBA1C, VITD, EBVG, EBVM, HSVG12 #### [facility] Routine Lab [address] [place] [phone] #### COR #### [facility] Immuno Assay [address] [place] [address] #### HBELEC #### [facility] Hematology [address] [place] [phone] #### NATE, 125VTD #### [facility] Chemistry [address] [place] [phone] #### WILD13 #### [facility] Reference [address] [place] [phone] TULAB AB IGG IGM Collected: 11/12/2017 Status: F Source: [place] 8:55 AM [facility] REFERENCE REPOSITORY TYPE CODE TESTS RESULT OUT OF REFERENCE UNITS RANGE LAB TULIGG(AUDRA <=9 U/mL NC) F. tularensis IgG 0 Ab LAB TULIGM(AUDRA <=9 U/mL NC) F. tularensis IgM 0 Ab Performed By: #### NH3, SHBG2, FTESTO, SERFOL, CERULO, MG1, PHOS, DHEAS, E2, PROG, CMVMAB, HBA1C, VITD, EBVG, EBVM, HSVG12 #### [facility] Routine Lab [address] [place] [phone] #### COR #### [facility] Immuno Assay [address] [place], [place] [phone] #### HBELEC #### [facility] Hematology [address] [place], [place] [address] #### NATE, 125VTD #### [facility] Chemistry [address] [place] [phone] #### WILD13 #### [facility] Reference [address] [place] [phone] HERPESVIRUS 6 IGG AB Collected: 11/12/2017 Status: F Source: [place] 8:55 [facility] REFERENCE REPOSITORY TYPE CODE TESTS RESULT OUT OF REFERENCE UNITS RANGE LAB HHV6(LOINC ) Herpesvirus High 6 IgG Ab 1:40 Performed By: #### NH3, SHBG2, FTESTO, SERFOL, CERULO, MG1, PHOS, DHEAS, E2, PROG, CMVMAB, HBA1C, VITD, EBVG, EBVM, HSVG12 #### [facility] Routine Lab [address] [place] [phone] #### COR #### [facility] Immuno Assay [address] [place] [phone] #### HBELEC #### [facility] Hematology [address] [place] [phone] #### NATE, 125VTD #### [facility] Chemistry [address] [place], [place] [phone] #### WILD13 #### [facility] Reference [address] [place] [phone] HERPESVIRUS 6 IGM AB Collected: 11/12/2017 Status: F Source: [place] 8:55 AM [facility] REFERENCE REPOSITORY TYPE CODE TESTS RESULT OUT OF RANGE REFERENCE UNITS LAB HV6IGM(LOIN C) HHV6, SEE NOTE Human IgM Abs Performed By: #### NH3, SHBG2, FTESTO, SERFOL, CERULO, MG1, PHOS, DHEAS, E2, PROG, CMVMAB, HBA1C, VITD, EBVG, EBVM, HSVG12 #### [facility] Routine Lab [address] [place] [phone] #### COR #### [facility] Immuno Assay [address] [place] [phone] #### HBELEC #### [facility] Hematology [address] [place] [phone] #### NATE, 125VTD #### [facility] Chemistry [address] [place], [place] [phone] #### WILD13 #### [facility] Reference [address] [place] [phone] MISC SEND OUT TEST Collected: 11/12/2017 Status: C Source: [place] 8:55 [facility] REFERENCE REPOSITORY TYPE CODE TESTS RESULT OUT OF RANGE REFERENCE UNITS LAB NAME1(LOINC ) Test Result Comment: Adenovirus Corrected on 11/15 AT 1339: Previously reported as ADENOVIRAL IGG IGM Antibody, Serum Corrected on 11/15 AT 1339: Previously reported as ADENOVIRAL IGG IGM LAB RESU1(LOINC) Test Results Result Comment: Refer to supplemental report Faxed to [phone] Test performed by [facility], [address] [place] [address]. Performed By: #### NH3, SHBG2, FTESTO, SERFOL, CERULO, MG1, PHOS, DHEAS, E2, PROG, CMVMAB, HBA1C, VITD, EBVG, EBVM, HSVG12 #### [facility] Routine Lab [address] [place] [address] #### COR #### [facility] Immuno Assay [address] [place] [phone] #### HBELEC #### [facility] Hematology [address] [place] [phone] #### NATE, 125VTD #### [facility] Chemistry [address] [place] [address] #### WILD13 #### [facility] Reference [address] [place] [address] MRI SPINE CERVICAL Observed: 10/23/2017 Status: F Source: [facility] WITHOUT CONTRAST 1:20 PM [facility] REPOSITORY EXAM: MRI SPINE CERVICAL WITHOUT CONTRAST, [...] BRAIN WITHOUT Observed: 10/23/2017 Status: F Source: [facility] CONTRAST 11:21 AM [facility] REPOSITORY EXAM: MRI BRAIN WITHOUT CONTRAST, 10/22/2017 [...] / CODE REACTION SEVERITY SOURCE 08/15/2018 Drug thimerosal/R11423 Itching Unknown [place] Allergy/416 3125(RXNORM) Community 406036([facility] ED CT) Repository 09/10/2015 DRUG/127596 ATOVAQUONE-PROGUA HIVES [facility] 003(SNOMED NIL [address] [place] [address]) Repository 04/26/2009 DRUG THIMEROSAL [facility] INGREDI/[address] 865487([facility] ED CT) ENCOUNTERS ENCOUNTERS ADMIT/DISCHARGE ACCOUNT NUMBER ADMITTING ENCOUNTER LOCATION SOURCE CLASS 09/25/2018 [id number] Ambulatory [id number] [facility] g:[facility] Repository 09/19/2018/09/19/19 [id number] Ambulatory [address] Repository 09/16/2018 [id number] Ambulatory [facility] ding:[facility] Repository 09/04/2018/09/05/19 [id number] Ambulatory [address] Repository 09/02/2018/09/02/20 [id number] Ambulatory [address] ding:[facility] Repository 08/15/2018 [id number] Ambulatory [facility] ding:[facility] Repository 08/14/2018/08/14/20 [id number] MIKI ISAAC, Ambulatory [id number] [facility] 18 LILLY g:PACURoom: General VC31Why: [address] [place] [address] Center Repository 06/19/2018 [id number] Ambulatory [facility] ding:LAB Repository 06/08/2018 [id number] Ambulatory [facility] ding:[facility] Repository 04/22/2018/04/22/20 [id number] Ambulatory [address] Repository 04/22/2018/04/25/20 [id number] Ambulatory [address] Repository 12/11/2017/12/12/19 [id number] Ambulatory [address] Repository 10/22/2017 [id number] Ambulatory Building:[facility] Repository 10/22/2017 [id number] Ambulatory Building:[facility] Repository 10/22/2017 [id number] Ambulatory Building:[facility] Repository 10/04/2017 [id number] Ambulatory Building:[facility] Repository PAYERS PAYERS ENCOUNTER GUARANTOR PAYER SUBSCRIBER SOURCE 09/25/2018 SANAM SOLIZB: Primary SANAM MILLERDOB: [facility] N Insurance:OTHER [id number] [place] [address] [place] Number: [place], [place] Repository [address]Wbi: (330) Date:3121-51-48Txis 22545Kgf: () Name:ELMA [phone] [facility] ()Tel: [phone]: () [phone] 09/16/2018 MARITA Cabrera Primary SANAM [address] [place] [id number] N Insurance:CORESYUMI MILLERDOB: [facility]CyActive Number: [id number], [place] [id number] Repository [address]Jng: (198) Date:8865-75-49ZT [phone] () 2310KIMMY SINGH [address]VX: 09/16/2018 Secondary NOT GIVENUNK [place] Insurance:SELF PAY [facility] Number: Effective Repository Date:2018-09-02 09/02/2018 MARITA Cabrera Primary SANAM A [place] [id number] N Insurance:CORESOURCEP MILLERDOB: [facility] Number: [id number], [place] [id number] Repository [address]Jec: (330) Date:0465-07-63LX [phone] () 2310MTKIMMY ROWAN [address]OP: 09/02/2018 Secondary NOT GIVENUNK [place] Insurance:SELF PAY [facility] Number: Effective Repository Date:2018-08-19 08/15/2018 MARITA Cabrera Primary SANAM A [place] [id number] N Insurance:CORESOURCEP MILLERDOB: [facility] Number: [id number], [place] [id number] Repository [address]Wzf: 330) Date:6761-39-60LH [phone] () 2310SCYves SHARRIKIMMY GALLARDO 22288II: 08/15/2018 Secondary NOT GIVENUNK [place] Insurance:SELF PAY [facility] Number: Effective Repository Date:2018-08-08 08/14/2018 SANAM MILLERDOB: Primary SANAM MILLERDOB: [place] Insurance:OTHER [id number] [facility] [place], [place] Number: Effective [place], [place] Repository [address]Mpc: (330) Date:2008-09-03 35987Npt: () [id number] [phone] Name:ELMA RUSHING ()Tel: [phone] SHARRIKIMMY GALLARDO [phone] () 81744RC: 06/19/2018 MARITA Cabrera Primary SANAM A [place] [id number] N Insurance:CORESOURCEP MILLERDOB: [facility] Number: [id number], [place] [id number] Repository [address]Tnb: ([phone]) Date:4920-32-39QQ [phone] () 2310MT. SHARRIKIMMY GALLARDO 41950XB: 06/19/2018 Secondary NOT GIVENUNK [place] Insurance:SELF PAY [facility] Number: Effective Repository Date:2018-06-19 06/08/2018 Marita Cabrera Primary SANAM A [place] [id number] N Insurance:CORESOURCEP MILLERDOB: [facility] Number: [id number], [place] [id number] Repository [address]Ldg: ([phone]) Date:0279-08-90IV [phone] (HP) 23[address]MT. SHARRI [place] [id number]: 06/08/2018 Secondary NOT GIVENUNK [place] Insurance:SELF PAY [facility] Number: Effective Repository Date:2018-05-21 10/22/2017 SANAM SOLIZB: Primary Insurance:[facility] SANAM HUDSONDOB: [facility] [employer] [id number] [facility], Number: [facility] [address]Rxa: [id number] Repository Date:0665-89-49Vfxf () Name:MANAGED CARE 10/22/2017 SANAM MARTÍNEZB: Primary Insurance:[facility]U SANAM HUDSONDOB: [facility] [employer] [id number] [facility], Number: [facility] [id number]: [id number] Repository Date:5269-99-67Qodi () Name:MANAGED CARE 10/22/2017 SANAM SOLIZB: Primary Insurance:[facility]U SANAM SOLZIB: [facility] [employer] [id number] [facility], [facility] [address]Xcm: [id number] Repository Date:0148-69-56Zxni () Name:MANAGED CARE 10/04/2017 SANAM SOLIZB: Primary Insurance:OSU SANAM MARTÍNEZB: [facility] [employer] [id number] [facility], [facility] [address]Djy: [id number] Repository Date:1912-94-21Sbvl () Name:[facility]
== END 2018-09-02 09:45 | disposition home or self-care (01) ==
LOC: HHLAB 08:45
DX: A69.20 Lyme disease, unspecified (principal)
CPT/HCPCS: 80053; 85025

== ENCOUNTER 2018-09-30 10:08 | Outpatient (RCR) | payer OTHER, SELFPAY ==
[2018-08-15 08:51] VITALS: BMI 27.3
[2018-09-16 10:13] LABS: Absolute Lymphocyte Count 1.93 X10^3/ul (0.83-4.51); Absolute Neutrophil Count 3.2 X10^3/uL (2.0-7.7); Basophil# 0.04 X10^3/uL; Basophil% 0.7 % (0-1); Eosinophil# 0.13 X10^3/uL; Eosinophils% 2.2 % (0-5); Hematocrit 41.8 % (37-47); Hemoglobin 13.5 g/dl (12.0-15.0); Lymphocyte # 1.93 X10^3/ul (4.0); Lymphocyte % 33.3 % (19-41); Mean Corp Hgb Conc 32.3 g/gl (32-36); Mean Corpuscular Hgb 32.1 pg (27.0-32.0); Mean Corpuscular Volume 99.3 fL (81-99); Mean Platelet Vol. 11.5 fl (6.2-12.0); Monocyte# 0.46 X10^3/uL; Monocyte% 7.9 % (0-10); Neutrophil # 3.22 X10^3/uL (2.7-7.7); Neutrophil % 55.7 % (47-70); Platelet Count 241 K/mm3 (150-450); RBC Distribution Width CV 12.9 % (11.6-14.6); RBC Distribution Width SD 45.9 fl (35.1-43.9); Red Blood Count 4.21 M/mm3 (4.2-5.4); White Blood Count 5.8 K/mm3 (4.4-11.0)
[2018-09-16 10:19] LABS: ALB/GLOB Ratio 1.2 RATIO (0.9-2.4); AST(SGOT) 24 U/L (15-37); Alanine Aminotransfer ALT/SGPT 41 U/L (13-56); Albumin, Serum 3.6 g/dL (3.2-5.0); Alkaline Phosphatase 81 U/L (45-117); Anion Gap 10 (5-15); BUN 17 mg/dL (7-18); Calcium,Total 9.1 mg/dL (8.5-10.1); Chloride 107 mmol/L (98-107); Creatinine, Serum 0.52 mg/dL (0.55-1.02); EST Glomerular Filtration Rate 127 mL/min (>60); Est Glom Filt Rate - Afr Amer 154 mL/min (>60); Glucose 91 mg/dL (74-106); POSITIVE COUNT NO; POSITIVE DIFFERENTIAL NO; POSITIVE MORPHOLOGY NO; Potassium 3.9 mmol/L (3.5-5.1); Protein, Total 6.6 g/dL (6.4-8.2); Sodium Level 143 mmol/L (136-145)
[2018-09-30 12:33] LABS: ALB/GLOB Ratio 1.2 RATIO (0.9-2.4); AST(SGOT) 42 U/L (15-37); Alanine Aminotransfer ALT/SGPT 61 U/L (13-56); Albumin, Serum 3.6 g/dL (3.2-5.0); Alkaline Phosphatase 78 U/L (45-117); Anion Gap 11 (5-15); BUN 13 mg/dL (7-18); BUN/Creat Ratio 26.5 RATIO (10-20); Calcium,Total 8.8 mg/dL (8.5-10.1); Chloride 108 mmol/L (98-107); Creatinine, Serum 0.49 mg/dL (0.55-1.02); EST Glomerular Filtration Rate 135 mL/min (>60); Est Glom Filt Rate - Afr Amer 163 mL/min (>60); Glucose 96 mg/dL (74-106); Potassium 3.8 mmol/L (3.5-5.1); Protein, Total 6.6 g/dL (6.4-8.2); Sodium Level 142 mmol/L (136-145)
[2018-09-30 13:56] LABS: Absolute Lymphocyte Count 1.66 X10^3/ul (0.83-4.51); Absolute Neutrophil Count 3.2 X10^3/uL (2.0-7.7); Basophil# 0.02 X10^3/uL; Basophil% 0.4 % (0-1); Eosinophil# 0.14 X10^3/uL; Eosinophils% 2.5 % (0-5); Hematocrit 42.4 % (37-47); Hemoglobin 13.4 g/dl (12.0-15.0); Lymphocyte # 1.66 X10^3/ul (4.0); Lymphocyte % 30.1 % (19-41); Mean Corp Hgb Conc 31.6 g/gl (32-36); Mean Corpuscular Hgb 31.3 pg (27.0-32.0); Mean Corpuscular Volume 99.1 fL (81-99); Mean Platelet Vol. 11.5 fl (6.2-12.0); Monocyte% 9.1 % (0-10); Neutrophil # 3.19 X10^3/uL (2.7-7.7); Neutrophil % 57.7 % (47-70); Platelet Count 243 K/mm3 (150-450); RBC Distribution Width CV 13.2 % (11.6-14.6); RBC Distribution Width SD 47.5 fl (35.1-43.9); Red Blood Count 4.28 M/mm3 (4.2-5.4); White Blood Count 5.5 K/mm3 (4.4-11.0)
[2018-09-30 14:10] LABS: POSITIVE COUNT NO; POSITIVE DIFFERENTIAL NO; POSITIVE MORPHOLOGY NO
== END 2018-10-03 23:59 ==
LOC: HHLAB 10:08
DX: A69.20 Lyme disease, unspecified (principal); Z45.2 Encounter for adjustment and management of vascular access device
CPT/HCPCS: 80053; 85025

== ENCOUNTER → 2018-10-26 09:46 | Outpatient (CLI) | payer OTHER, SELFPAY ==
[2018-08-15 08:51] VITALS: BMI 27.3
== END ==
DX: K51.80 Other ulcerative colitis without complications (principal)
CPT/HCPCS: 87493

== ENCOUNTER → 2018-11-04 08:39 | Outpatient (CLI) | payer OTHER, SELFPAY ==
[2018-08-15 08:51] VITALS: BMI 27.3
== END ==
DX: Z45.2 Encounter for adjustment and management of vascular access device (principal); A69.20 Lyme disease, unspecified
CPT/HCPCS: A4216

== ENCOUNTER → 2018-12-06 08:28 | Outpatient (CLI) | payer OTHER, SELFPAY ==
[2018-08-15 08:51] VITALS: BMI 27.3
[2018-12-06 09:14] LABS: Absolute Lymphocyte Count 1.46 X10^3/ul (0.83-4.51); Absolute Neutrophil Count 3.8 X10^3/uL (2.0-7.7); Basophil# 0.02 X10^3/uL; Basophil% 0.3 % (0-1); Eosinophil# 0.09 X10^3/uL; Eosinophils% 1.6 % (0-5); Hematocrit 40.6 % (37-47); Hemoglobin 12.9 g/dl (12.0-15.0); Lymphocyte # 1.46 X10^3/ul (4.0); Lymphocyte % 25.3 % (19-41); Mean Corp Hgb Conc 31.8 g/gl (32-36); Mean Corpuscular Hgb 29.8 pg (27.0-32.0); Mean Corpuscular Volume 93.8 fL (81-99); Mean Platelet Vol. 10.8 fl (6.2-12.0); Monocyte# 0.45 X10^3/uL; Monocyte% 7.8 % (0-10); Neutrophil # 3.75 X10^3/uL (2.7-7.7); Neutrophil % 64.8 % (47-70); POSITIVE COUNT NO; POSITIVE DIFFERENTIAL NO; POSITIVE MORPHOLOGY NO; Platelet Count 236 K/mm3 (150-450); RBC Distribution Width CV 13.2 % (11.6-14.6); RBC Distribution Width SD 44.9 fl (35.1-43.9); Red Blood Count 4.33 M/mm3 (4.2-5.4); White Blood Count 5.8 K/mm3 (4.4-11.0)
[2018-12-06 09:34] LABS: ALB/GLOB Ratio 1.2 RATIO (0.9-2.4); AST(SGOT) 15 U/L (15-37); Alanine Aminotransfer ALT/SGPT 29 U/L (13-56); Albumin, Serum 3.4 g/dL (3.2-5.0); Alkaline Phosphatase 65 U/L (45-117); Anion Gap 5 (5-15); BUN 12 mg/dL (7-18); BUN/Creat Ratio 28.3 RATIO (10-20); Calcium,Total 8.7 mg/dL (8.5-10.1); Chloride 110 mmol/L (98-107); Creatinine, Serum 0.42 mg/dL (0.55-1.02); EST Glomerular Filtration Rate 159 mL/min (>60); Est Glom Filt Rate - Afr Amer 193 mL/min (>60); Globulin 2.8 g/dL (2.2-4.2); Glucose 87 mg/dL (74-106); Potassium 3.9 mmol/L (3.5-5.1); Protein, Total 6.2 g/dL (6.4-8.2); Sodium Level 142 mmol/L (136-145); Thyroid Stim Hormone (TSH) < 0.01 uIU/mL (0.358-3.74)
== END ==
DX: A69.20 Lyme disease, unspecified (principal); Q07.9 Congenital malformation of nervous system, unspecified; E88.9 Metabolic disorder, unspecified; E03.9 Hypothyroidism, unspecified
CPT/HCPCS: 36591; 80053; 84443; 85025; A4216

== ENCOUNTER → 2019-01-03 13:01 | Outpatient (CLI) | payer OTHER, SELFPAY ==
[2018-08-15 08:51] VITALS: BMI 27.3
--- NOTE | 2019-01-03 14:04 | EKG12_ITS ---
Test Reason : SOB Blood Pressure : / mmHG Vent. Rate : 069 BPM Atrial Rate : 069 BPM P-R Int : 116 ms QRS Dur : 092 ms QT Int : 420 ms P-R-T Axes : 020 005 028 degrees QTc Int : 450 ms Normal sinus rhythm Normal ECG Confirmed by ANETTE ISAAC, NAZ ([id number]), acquisitions editor BORIS GALAN ([id number]) on 01/07/2019 1:40:28 PM Referred By: OUT DOCTOR Confirmed By:NAZ CHEEMA MD
== END ==
DX: Z45.2 Encounter for adjustment and management of vascular access device (principal); A69.20 Lyme disease, unspecified; R06.02 Shortness of breath
CPT/HCPCS: 93005; 96523; A4216

== ENCOUNTER → 2019-01-23 11:10 | Outpatient (CLI) | payer OTHER, SELFPAY ==
[2018-08-15 08:51] VITALS: BMI 27.3
== END ==
DX: Z45.2 Encounter for adjustment and management of vascular access device (principal); A69.20 Lyme disease, unspecified
CPT/HCPCS: 96523; A4216

== ENCOUNTER 2019-01-30 11:41 | Outpatient (RCR) | payer OTHER, SELFPAY ==
[2018-08-15 08:51] VITALS: BMI 27.3
[2019-01-30 13:30] LABS: ALB/GLOB Ratio 1.2 RATIO (0.9-2.4); AST(SGOT) 24 U/L (15-37); Alanine Aminotransfer ALT/SGPT 39 U/L (13-56); Albumin, Serum 3.7 g/dL (3.2-5.0); Alkaline Phosphatase 87 U/L (45-117); Anion Gap 7 (5-15); BUN 19 mg/dL (7-18); BUN/Creat Ratio 40.6 RATIO (10-20); Calcium,Total 8.9 mg/dL (8.5-10.1); Chloride 108 mmol/L (98-107); Cholesterol 183 mg/dL (200); Creatinine, Serum 0.47 mg/dL (0.55-1.02); EST Glomerular Filtration Rate 142 mL/min (>60); Est Glom Filt Rate - Afr Amer 172 mL/min (>60); Globulin 3.2 g/dL (2.2-4.2); Glucose 89 mg/dL (74-106); High Density Lipoprotein 50 mg/dL; Protein, Total 6.9 g/dL (6.4-8.2); Sodium Level 141 mmol/L (136-145); Triglycerides 67 mg/dL; Very Low Density Lipoprotein 13 mg/dL (5-40)
[2019-02-03 11:18] LABS: Vitamin A, Retinol 41.6 ug/dL (22.0-69.5)
== END 2019-01-31 23:59 ==
LOC: HHLAB 11:41
DX: A69.20 Lyme disease, unspecified (principal); Z45.2 Encounter for adjustment and management of vascular access device
CPT/HCPCS: 80053; 80061; 84590

== ENCOUNTER → 2019-01-30 14:15 | Outpatient (CLI) | payer OTHER, SELFPAY ==
[2018-08-15 08:51] VITALS: BMI 27.3
== END ==
DX: A04.72 Enterocolitis due to Clostridium difficile, not specified as recurrent (principal)
CPT/HCPCS: 87493

== ENCOUNTER → 2019-02-14 10:49 | Outpatient (CLI) | payer OTHER, SELFPAY ==
[2018-08-15 08:51] VITALS: BMI 27.3
[2019-02-14 11:21] LABS: Hematocrit 41.6 % (37-47); Hemoglobin 13.2 g/dl (12.0-15.0); Mean Corp Hgb Conc 31.7 g/gl (32-36); Mean Corpuscular Hgb 28.6 pg (27.0-32.0); Mean Platelet Vol. 11.4 fl (6.2-12.0); Platelet Count 203 K/mm3 (150-450); RBC Distribution Width CV 13.8 % (11.6-14.6); RBC Distribution Width SD 45.5 fl (35.1-43.9); Red Blood Count 4.62 M/mm3 (4.2-5.4)
[2019-02-14 11:22] LABS: Scan Indicated on CBC? Y/N NO
[2019-02-14 11:45] LABS: ALB/GLOB Ratio 1.1 RATIO (0.9-2.4); AST(SGOT) 19 U/L (15-37); Alanine Aminotransfer ALT/SGPT 37 U/L (13-56); Albumin, Serum 3.4 g/dL (3.2-5.0); Alkaline Phosphatase 80 U/L (45-117); Anion Gap 7 (5-15); BUN 16 mg/dL (7-18); BUN/Creat Ratio 32.2 RATIO (10-20); Calcium,Total 9.1 mg/dL (8.5-10.1); Chloride 108 mmol/L (98-107); Cholesterol 165 mg/dL (200); EST Glomerular Filtration Rate 133 mL/min (>60); Est Glom Filt Rate - Afr Amer 160 mL/min (>60); Glucose 86 mg/dL (74-106); High Density Lipoprotein 54 mg/dL; Potassium 3.8 mmol/L (3.5-5.1); Protein, Total 6.4 g/dL (6.4-8.2); Sodium Level 144 mmol/L (136-145); Triglycerides 77 mg/dL; Very Low Density Lipoprotein 15 mg/dL (5-40)
[2019-02-18 15:29] LABS: Vitamin A, Retinol 48.5 ug/dL (22.0-69.5)
== END ==
DX: A69.20 Lyme disease, unspecified (principal); Z45.2 Encounter for adjustment and management of vascular access device; Z51.81 Encounter for therapeutic drug level monitoring; Z79.2 Long term (current) use of antibiotics; Z87.19 Personal history of other diseases of the digestive system; Z85.850 Personal history of malignant neoplasm of thyroid; Z90.89 Acquired absence of other organs
CPT/HCPCS: 80053; 80061; 84590; 85027

== ENCOUNTER 2019-02-27 08:29 | Outpatient (RCR) | payer OTHER, SELFPAY ==
[2018-08-15 08:51] VITALS: BMI 27.3
[2019-02-27 08:46] LABS: Hematocrit 42.4 % (37-47); Hemoglobin 13.5 g/dl (12.0-15.0); Mean Corp Hgb Conc 31.8 g/gl (32-36); Mean Corpuscular Hgb 28.2 pg (27.0-32.0); Mean Corpuscular Volume 88.5 fL (81-99); Mean Platelet Vol. 10.7 fl (6.2-12.0); Platelet Count 226 K/mm3 (150-450); RBC Distribution Width CV 13.9 % (11.6-14.6); RBC Distribution Width SD 45.3 fl (35.1-43.9); Red Blood Count 4.79 M/mm3 (4.2-5.4); White Blood Count 4.2 K/mm3 (4.4-11.0)
[2019-02-27 08:50] LABS: Scan Indicated on CBC? Y/N NO
[2019-02-27 08:54] LABS: ALB/GLOB Ratio 1.2 RATIO (0.9-2.4); AST(SGOT) 18 U/L (15-37); Alanine Aminotransfer ALT/SGPT 33 U/L (13-56); Albumin, Serum 3.6 g/dL (3.2-5.0); Alkaline Phosphatase 74 U/L (45-117); Anion Gap 2 (5-15); BUN 17 mg/dL (7-18); BUN/Creat Ratio 34.1 RATIO (10-20); Calcium,Total 9.2 mg/dL (8.5-10.1); Chloride 110 mmol/L (98-107); Cholesterol 186 mg/dL (200); EST Glomerular Filtration Rate 132 mL/min (>60); Est Glom Filt Rate - Afr Amer 160 mL/min (>60); Glucose 102 mg/dL (74-106); High Density Lipoprotein 57 mg/dL; Protein, Total 6.6 g/dL (6.4-8.2); Sodium Level 142 mmol/L (136-145); Triglycerides 62 mg/dL; Very Low Density Lipoprotein 12 mg/dL (5-40)
[2019-03-07 16:42] LABS: Vitamin A, Retinol 42.9 ug/dL (22.0-69.5)
== END 2019-03-02 23:59 ==
LOC: HHLAB 08:29
DX: A69.20 Lyme disease, unspecified (principal); Z45.2 Encounter for adjustment and management of vascular access device; Z51.81 Encounter for therapeutic drug level monitoring; Z87.19 Personal history of other diseases of the digestive system
CPT/HCPCS: 80053; 80061; 84590; 85027

== ENCOUNTER 2019-03-27 08:44 | Outpatient (RCR) | payer OTHER, SELFPAY ==
[2018-08-15 08:51] VITALS: BMI 27.3
[2019-03-13 10:03] LABS: ALB/GLOB Ratio 1.4 RATIO (0.9-2.4); AST(SGOT) 17 U/L (15-37); Alanine Aminotransfer ALT/SGPT 35 U/L (13-56); Albumin, Serum 3.7 g/dL (3.2-5.0); Alkaline Phosphatase 72 U/L (45-117); Anion Gap 5 (5-15); BUN 16 mg/dL (7-18); BUN/Creat Ratio 31.2 RATIO (10-20); Calcium,Total 9.1 mg/dL (8.5-10.1); Chloride 108 mmol/L (98-107); Cholesterol 168 mg/dL (200); Creatinine, Serum 0.51 mg/dL (0.55-1.02); EST Glomerular Filtration Rate 128 mL/min (>60); Est Glom Filt Rate - Afr Amer 155 mL/min (>60); Globulin 2.7 g/dL (2.2-4.2); Glucose 95 mg/dL (74-106); High Density Lipoprotein 53 mg/dL; Protein, Total 6.4 g/dL (6.4-8.2); Sodium Level 142 mmol/L (136-145); Triglycerides 75 mg/dL; Very Low Density Lipoprotein 15 mg/dL (5-40)
[2019-03-16 13:49] LABS: Vitamin A, Retinol 23.8 ug/dL (22.0-69.5)
[2019-03-27 09:19] LABS: ALB/GLOB Ratio 1.3 RATIO (0.9-2.4); AST(SGOT) 16 U/L (15-37); Alanine Aminotransfer ALT/SGPT 35 U/L (13-56); Albumin, Serum 3.6 g/dL (3.2-5.0); Alkaline Phosphatase 66 U/L (45-117); Anion Gap 8 (5-15); BUN 21 mg/dL (7-18); BUN/Creat Ratio 44.8 RATIO (10-20); Calcium,Total 8.7 mg/dL (8.5-10.1); Chloride 110 mmol/L (98-107); Cholesterol 168 mg/dL (200); Creatinine, Serum 0.47 mg/dL (0.55-1.02); EST Glomerular Filtration Rate 142 mL/min (>60); Est Glom Filt Rate - Afr Amer 171 mL/min (>60); Globulin 2.7 g/dL (2.2-4.2); Glucose 98 mg/dL (74-106); High Density Lipoprotein 53 mg/dL; Protein, Total 6.3 g/dL (6.4-8.2); Sodium Level 144 mmol/L (136-145); Triglycerides 53 mg/dL; Very Low Density Lipoprotein 11 mg/dL (5-40)
[2019-04-01 14:25] LABS: Vitamin A, Retinol 43.4 ug/dL (22.0-69.5)
== END 2019-04-02 23:59 ==
LOC: HHLAB 08:44
DX: A69.20 Lyme disease, unspecified (principal)
CPT/HCPCS: 80053; 80061; 84590

== ENCOUNTER 2019-05-01 08:03 | Outpatient (RCR) | payer OTHER, SELFPAY ==
[2018-08-15 08:51] VITALS: BMI 27.3
[2019-04-10 10:36] LABS: ALB/GLOB Ratio 1.2 RATIO (0.9-2.4); AST(SGOT) 15 U/L (15-37); Alanine Aminotransfer ALT/SGPT 32 U/L (13-56); Albumin, Serum 3.6 g/dL (3.2-5.0); Alkaline Phosphatase 72 U/L (45-117); Anion Gap 3 (5-15); BUN 23 mg/dL (7-18); BUN/Creat Ratio 34.4 RATIO (10-20); Chloride 109 mmol/L (98-107); Cholesterol 188 mg/dL (200); Creatinine, Serum 0.67 mg/dL (0.55-1.02); EST Glomerular Filtration Rate 94 mL/min (>60); Est Glom Filt Rate - Afr Amer 114 mL/min (>60); Glucose 96 mg/dL (74-106); High Density Lipoprotein 60 mg/dL; Potassium 4.3 mmol/L (3.5-5.1); Protein, Total 6.6 g/dL (6.4-8.2); Sodium Level 142 mmol/L (136-145); Triglycerides 60 mg/dL; Very Low Density Lipoprotein 12 mg/dL (5-40)
[2019-04-24 09:04] LABS: ALB/GLOB Ratio 1.1 RATIO (0.9-2.4); AST(SGOT) 19 U/L (15-37); Alanine Aminotransfer ALT/SGPT 33 U/L (13-56); Albumin, Serum 3.2 g/dL (3.2-5.0); Alkaline Phosphatase 66 U/L (45-117); Anion Gap 8 (5-15); BUN 19 mg/dL (7-18); BUN/Creat Ratio 38.3 RATIO (10-20); Calcium,Total 8.4 mg/dL (8.5-10.1); Chloride 111 mmol/L (98-107); Cholesterol 152 mg/dL (200); EST Glomerular Filtration Rate 133 mL/min (>60); Est Glom Filt Rate - Afr Amer 161 mL/min (>60); Globulin 2.8 g/dL (2.2-4.2); Glucose 106 mg/dL (74-106); High Density Lipoprotein 53 mg/dL; Potassium 3.9 mmol/L (3.5-5.1); Sodium Level 143 mmol/L (136-145); Triglycerides 47 mg/dL; Very Low Density Lipoprotein 9 mg/dL (5-40)
[2019-05-01 08:57] LABS: ALB/GLOB Ratio 1.1 RATIO (0.9-2.4); AST(SGOT) 33 U/L (15-37); Alanine Aminotransfer ALT/SGPT 110 U/L (13-56); Albumin, Serum 3.5 g/dL (3.2-5.0); Alkaline Phosphatase 76 U/L (45-117); Anion Gap 9 (5-15); BUN 24 mg/dL (7-18); BUN/Creat Ratio 47.8 RATIO (10-20); Calcium,Total 8.9 mg/dL (8.5-10.1); Chloride 109 mmol/L (98-107); Cholesterol 183 mg/dL (200); EST Glomerular Filtration Rate 131 mL/min (>60); Est Glom Filt Rate - Afr Amer 158 mL/min (>60); Globulin 3.2 g/dL (2.2-4.2); Glucose 110 mg/dL (74-106); High Density Lipoprotein 54 mg/dL; Potassium 4.2 mmol/L (3.5-5.1); Protein, Total 6.7 g/dL (6.4-8.2); Sodium Level 142 mmol/L (136-145); Triglycerides 61 mg/dL; Very Low Density Lipoprotein 12 mg/dL (5-40)
== END 2019-05-03 23:59 ==
LOC: HHLAB 08:03
DX: A69.20 Lyme disease, unspecified (principal); Z45.2 Encounter for adjustment and management of vascular access device; Z51.81 Encounter for therapeutic drug level monitoring; Z79.2 Long term (current) use of antibiotics; Z87.19 Personal history of other diseases of the digestive system; Z85.850 Personal history of malignant neoplasm of thyroid
CPT/HCPCS: 80053; 80061; 84590

== ENCOUNTER 2019-05-26 10:30 | Outpatient (RCR) | payer OTHER, SELFPAY ==
[2018-08-15 08:51] VITALS: BMI 27.3
[2019-05-26 10:49] LABS: Absolute Neutrophil Count 3.2 X10^3/uL (2.0-7.7); Basophil# 0.03 X10^3/uL; Basophil% 0.6 % (0-1); Eosinophil# 0.12 X10^3/uL; Eosinophils% 2.4 % (0-5); Hematocrit 43.5 % (37-47); Hemoglobin 14.3 g/dL (12.0-15.0); Lymphocyte % 25.6 % (19-41); Mean Corp Hgb Conc 32.9 g/dL (32-36); Mean Corpuscular Hgb 29.3 pg (27.0-32.0); Mean Corpuscular Volume 89.1 fL (81-99); Mean Platelet Vol. 11.1 fl (6.2-12.0); Monocyte# 0.46 X10^3/uL; Monocyte% 9.1 % (0-10); NRBC Flagged by Analyzer 0 % (0-5); Neutrophil # 3.16 X10^3/uL (2.7-7.7); Neutrophil % 62.1 % (47-70); Platelet Count 201 K/mm3 (150-450); RBC Distribution Width CV 12.5 % (11.6-14.6); Red Blood Count 4.88 M/mm3 (4.2-5.4); White Blood Count 5.1 K/mm3 (4.4-11.0)
[2019-05-26 11:00] LABS: ALB/GLOB Ratio 1.2 RATIO (0.9-2.4); AST(SGOT) 15 U/L (15-37); Alanine Aminotransfer ALT/SGPT 22 U/L (13-56); Albumin, Serum 3.6 g/dL (3.2-5.0); Alkaline Phosphatase 75 U/L (45-117); Anion Gap 7 (5-15); BUN 13 mg/dL (7-18); BUN/Creat Ratio 28.7 RATIO (10-20); CPK Total, Creatine Kinase 48 U/L (26-192); Calcium,Total 9.3 mg/dL (8.5-10.1); Chloride 107 mmol/L (98-107); Cholesterol 154 mg/dL (200); Creatinine, Serum 0.45 mg/dL (0.55-1.02); EST Glomerular Filtration Rate 147 mL/min (>60); Est Glom Filt Rate - Afr Amer 178 mL/min (>60); Globulin 3.1 g/dL (2.2-4.2); Glucose 95 mg/dL (74-106); High Density Lipoprotein 44 mg/dL; Protein, Total 6.7 g/dL (6.4-8.2); Sodium Level 140 mmol/L (136-145); Triglycerides 70 mg/dL; Very Low Density Lipoprotein 14 mg/dL (5-40)
[2019-05-29 16:40] LABS: Aldolase 4.7 U/L (3.3-10.3); Vitamin A, Retinol 45.6 ug/dL (22.0-69.5)
== END 2019-06-02 23:59 ==
LOC: HHLAB 10:30
DX: A69.20 Lyme disease, unspecified (principal); Z45.2 Encounter for adjustment and management of vascular access device; Z51.81 Encounter for therapeutic drug level monitoring
CPT/HCPCS: 80053; 80061; 82085; 82550; 84590; 85025

== ENCOUNTER → 2019-08-07 08:20 | Outpatient (CLI) | payer OTHER, SELFPAY ==
[2018-08-15 08:51] VITALS: BMI 27.3
== END ==
DX: K51.80 Other ulcerative colitis without complications (principal)
CPT/HCPCS: 87493

== ENCOUNTER → 2019-11-10 12:56 | Outpatient (CLI) | payer OTHER, SELFPAY ==
[2018-08-15 08:51] VITALS: BMI 27.3
--- NOTE | 2019-11-10 13:00 | SP.MBSS_ITS ---
PRIMARY / SECONDARY DIAGNOSIS: dysphagia (R13.10) CURRENT DIET: regular textures, thin liquids DENTITION: WFL MENTAL STATUS: WNL RESPIRATORY STATUS: O2 via room air REASON FOR REFERRAL: The Patient is a 63 year old female referred for a modified barium swallow (MBS) study to objectively assess the Patients oropharyngeal swallow function under fluoroscopy secondary to reported persistent dysphagia particular with thin liquids that appears to be associated with the diagnosis of Lyme disease, with additional persistent issues with dysarthria and gait abnormalities. MEDICAL HISTORY: Lyme disease PREVIOUS MODIFIED BARIUM SWALLOW STUDY: None ASSESSMENT PARAMETERS: The Patient participated in a Modified Barium Swallow (MBS) study on 11/10/2019. This study was recorded in the lateral view and images were sent to PACs for storage. Scoring was completed through each trial using the 8- point Penetration-Aspiration Scale (PAS) and summarized via the Videofluoroscopic Dysphagia Scale (VDS) and the Bolus Residue Scale (BRS) , with severity scoring through the Dysphagia Severity Rating Scale (DSRS) and the Swallowing Performance Scale (SPS), and recommended diet textures through the International Dysphagia Diet Standardisation Initiative (IDDSI) RESULTS OF THE EVALUATION: The Patient presents with mild to moderate oropharyngeal dysphagia (DSRS: 3; SPS: 3), with persistent oral holding and transient shallow penetration with thin liquids. OBJECTIVE ASSESSMENT OF SWALLOW FUNCTION (QUANTITATIVE ? PER TRIAL): PENETRATION / ASPIRATION SCALE (VIEYRA): 1 = does not enter airway 2 = enters airway/above vocal folds/ejected 3 = enters airway/above vocal folds/not ejected 4 = enters airway/contacts vocal folds/ejected 5 = enters airway/contacts vocal folds/not ejected 6 = enters airway/below vocal folds/ejected 7 = enters airway/below vocal folds/not ejected despite effort 8 = enters airway/below vocal folds/no effort PENETRATION / ASPIRATION SCALE (SCORE): Thin liquid - 5 mL tsp.: 1 Thin liquids via cup (single sip): 1 Thin liquids via cup (single sip): 1 Thin liquids via cup (single sip): 1 Thin liquids via cup (single sip): 2 Pudding via spoon: 1 Regular textured cookie: 1 Thin liquids via straw (single sip): 2 Thin liquids via straw (single sip): 2 Thin liquids via straw (chin tuck): 1 Thin liquids via straw (chin tuck): 2 OBJECTIVE ASSESSMENT OF SWALLOW FUNCTION (QUANTITATIVE ? AGGREGATE): VIDEOFLOROSCOPIC DYSPHAGIA SCALE (VDS): LIP CLOSURE: 0 (of 4) Intact BOLUS FORMATION: 3 (of 6) Inadequate MASTICATION: 0 (of 8) Intact APRAXIA: 3 (of 4.5) Moderate TONGUE TO PALATE CONTACT: 0 (of 10) Intact PREMATURE BOLUS LOSS: 1.5 (of 4.5) <10% ORAL TRANSIT TIME: 3 (of 3) >1.5s TRIGGERING OF PHARYNGEAL SWALLOW: 4.5 (of 4.5) Delayed VALLECULAR RESIDUE: 2 (of 6) <10% LARYNGEAL ELEVATION: 9 (of 9) Impaired PYRIFORM SINUS RESIDUE: 0 (of 13.5) None COATING OF PHARYNGEAL WALL: 0 (of 9) No PHARYNGEAL TRANSIT TIME: 0 (of 6) <1.0s ASPIRATION: 6 (of 12) Supraglottic penetration BOLUS RESIDUE SCALE (BRS): 2 (of 6) residue in valleculae OBJECTIVE ASSESSMENT OF SWALLOW FUNCTION (SEVERITY GRADING): DYSPHAGIA SEVERITY RATING SCALE (DSRS): 3 (mild-moderate) SWALLOWING PERFORMANCE SCALE (SPS): 3 (mild) OBJECTIVE ASSESSMENT OF SWALLOW FUNCTION (QUALITATIVE): ORAL PREPARATORY PHASE: competent bolus manipulation without fragmented swallowing (piecemeal deglutition); sufficient anterior oral containment during oral manipulation; preserved management of breathing / bolus formation ORAL TRANSITIONAL PHASE: oral phase swallow onset delay (2-3 seconds in length) across trials, most clear marker of disability; oral apraxia with associated swallow onset delay (2-8 seconds in length); sufficient oral clearance; trace premature posterior bolus loss on two occasions PHARYNGEAL PHASE: inconsistent pharyngeal phase synchrony with thin liquids; appropriate hyolaryngeal excursion and laryngeal vestibule closure / pressure; sufficient / consistent laryngeal vestibule pressure generated to expel penetrated material; no signs of pharyngeal dysmotility; mild velopharyngeal insufficiency without nasoregurgitation ESOPHAGEAL PHASE: no obvious esophageal phase abnormalities observed. CONTRIBUTING / COMPLICATING FACTORS AND NOTABLE FINDINGS: intermittent post prandial coughing without evidence of penetration and / or aspiration (2 occasions) RESPONSE TO STRATEGIES: all deficits managed successfully with reduction in bolus rate / volume adjustments, slight benefit through execution of the chin tuck posture, INTERVENTION RECOMMENDATIONS AND CONSIDERATIONS: The Patient may benefit from continued skilled speech-language intervention targeting diet texture management and training / implementation of recommended compensatory strategies; considerations for implementation of thermal tactile approach to promote improved oral phase swallow onset (limited evidence); would further strongly consider interventions targeting dysarthria. POST ASSESSMENT EDUCATION: Results and recommendations were discussed with the Patient and Patients family immediately following MBS completion, with the Patient and Patients family verbalizing understanding and agreement with all recommendations and education provided. I provided brief overview of signs and symptoms of aspiration, with recommendations for the Patient to further discuss symptoms with the Patients primary care provider. DIET TEXTURE RECOMMENDATIONS: Will recommend a regular ? soft textured (IDDSI: 6), thin liquid diet (IDDSI: 0) diet RECOMMENDED COMPENSATORY STRATEGIES: Consider cutting tougher textures into bite sized pieces, consider execution of the chin tuck posture, reduced bolus volume / rate of ingestion, seated upright at 90 degrees during PO intake, remain upright for 30-60 minutes post meal (GERD precaution) IMAGE COUNT: 2014 Jerry Perez M.A., CCC-QUALITY INTERNSHIP, CBIS MBSImP Certified, LSVT Certified [facility] Speech-Language Pathology Department [email or web address]
== END ==
DX: R13.10 Dysphagia, unspecified (principal)
CPT/HCPCS: 76000; 92611

== ENCOUNTER 2020-04-01 13:30 | Outpatient (RCR) | payer OTHER, SELFPAY ==
[2018-08-15 08:51] VITALS: BMI 27.3
--- NOTE | 2020-01-08 17:52 | SOAP_ITS ---
REASON FOR REFERRAL: The Patient is a 64 year old female referred for a clinical assessment of the Patients cognitive communication abilities and swallowing function at [facility] on 01/08/2020 due to persistent dysarthria and dysphagia secondary to the diagnosis of primary lateral sclerosis (PLS) following complications with Lyme disease with additional persistent issues with gait / ambulation. The Patient?s was present for the evaluation, and assisted with providing details regarding the Patient?s past medical history / course, and current level of functioning. The Patient reports initial symptoms starting with lower extremity spasticity / mobility limitations in 2012 a few months after becoming ill with flu like symptoms upon return from a trip to [facility]; she reports she was unable to extend / point her right foot, which progressed to include mobility complications and eventual mechanical falls (the fist in the Fall of 2012). 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 She reports undergoing extensive neurological workup, eventually arriving at the diagnosis of primary lateral sclerosis (PLS), and is currently under the treatment of Dr. Hughes. She reports she has not improved with any joint issues / balance / dysarthria, and had maintained a steady course until she went off of her medication for a few months, when her symptoms worsened. She additionally reports receiving treatment through an aggressive antibiotic and antifungal treatment regimen, though unfortunately developed issues with C-diff. She reports she is currently treated with Disulfiram (Antabuse), which has been successful in maintaining her current level of function. She reports an onset of dysarthria around 1 year ago, with a somewhat gradual presentation that has had a marked effect on her social and vocational functioning. She reports that she has struggled significantly in her vocational duties due to her changes in communication functioning, as she was able to continue giving presentations and lectures, though has had to limit and augment her lectures, and no longer is able to participate in larger presentations. She reports it has become more difficult to communicate via phone, and has noted a fatigue effect with communication. She denies any further issues with cognitive communication functioning. The Patient has not received any prior speech-language intervention to date. The Patient reports intermittent coughing / throat clearing during thin liquid ingestion, though she has managed this with reductions in bolus volume and rate. She reports consistent issues with oral phase swallow onset timing, with a slight subjective improvement in regards to her oral phase timing issues with sensory based bolus adjustments (temperature / texture / taste alterations) discussed following the 11/10/2019 MBS. She additionally reports intermittent diurnal sialorrhea (drooling during the daytime, SSS: 4) that has slowly progressed in frequency and intensity. She denies issues with dysgeusia / hypogeusia / ageusia / hyposmia; denies issues with xerostomia (dry mouth); denies any symptoms associate with trismus; denies odynophagia (pain during swallow); and denies issues with reflux / heartburn, globus sensation, post prandial substernal discomfort, or feelings of bolus stasis. She denies any issues with appetite, early satiety (feeling full after few bites), inanition, nausea, or emesis. She denies any current or previous issues with aspiration related pulmonary complications, to include pneumonia, bronchitis, or unexplained asthma symptoms; her affect is appropriate (though does notably endorse facial masking). The Patient is ambulatory with the use of assistive devices (walker); noted fatigue with ambulation to the intervention room in addition to difficulties rising from the chair (requiring assistance); no difficulties with posture maintenance. 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 MEDICAL HISTORY: Lyme disease and resulting primary lateral sclerosis (PLS), with additional persistent issues with gait abnormalities, dysphagia, and dysarthria, Clostridioides difficile (C.diff). PREVIOUS MODIFIED BARIUM SWALLOW STUDY: 11/10/2019 MBS revealed mild to moderate oropharyngeal dysphagia (DSRS: 3; SPS: 3), with persistent oral holding and transient shallow penetration with thin liquids. 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 FUNCTIONAL STATUS ASSESSMENT RESULTS: DAVIDSON INDEX OF INDEPENDENCE IN ACTIVITIES OF DAILY LIVIN/6 BATHIN DRESSIN TOILETIN TRANSFERRIN CONTINENCE: 0 FEEDIN SIMONA-NIKA INSTRUMENTAL ACTIVITIES OF DAILY LIVING SCALE (IADL): 6/8 ABILITY TO USE THE TELEPHONE: 1 SHOPPIN FOOD PREPARATION: 0 HOUSEKEEPIN LAUNDRY: 0 MODE OF TRANSPORTATION: 1 RESPONSIBILITY FOR OWN MEDICATION: 1 ABILITY TO HANDLE FINANCES: 1 SUPERVISION RATING SCALE (SRS): SRS RATING: level I: independent SRS RATING DESCRIPTION: other persons can live with the patient, but they cannot take responsibility for supervision (for example, a child or elderly person). ORAL MOTOR / MODIFIED CRANIAL NERVE ASSESSMENT: CNV, VII, X, and XII appear grossly intact; CNIX abnormal; hypernasality; natural upper / lower dentition in good repair; moist pinkish appearance to the oral mucosa without xerostomia; intermittent diurnal sialorrhea (drooling during daytime); appropriate volitional cough intensity; no reported or identified signs or symptoms suggesting trismus; moderate spastic dysarthria with hypophonia, dysphonia, strained-strangled production with vocal tension and hypernasality SUPPLEMENTARY DYSPHAGIA ASSESSMENT RESULTS (SCALES / PROM): [facility] XEROSTOMIA QUESTIONNAIRE: SIALORRHEA SCORING SCALE (SSS): SSS SCORE: 4/9 SSS DESCRIPTION: moderate, wet on the lips and chin, occasionally EATING ASSESSMENT TOOL ? 10 (EAT-10): EAT-10 TOTAL SCORE: 9 EAT-10 INTERPRETATION: a score of 3+ may represent swallowing problems CLINICAL ASSESSMENT OF SWALLOW FUNCTION (QUANTITATIVE): REPETITIVE SALIVA SWALLOWING TEST (RSST): RSST RESULT: pass RSST DESCRIPTION: able to elicit 2 dry swallows within 30 seconds. 1oz WATER SWALLOWING TEST (1oz WST): 1oz WST RESULTS: suspect ? 2 (of 5) 1oz WST DESCRIPTION: multiple swallows during ingestion without coughing DRINKING EPISODES: holding water in the mouth while drinking ISBELL 6 FACTORS: DYSPHONIA: 1 (positive) DYSARTHRIA: 1 (positive) ABNORMAL GAG RESPONSE: 0 (negative) ABNORMAL VOLITIONAL COUGH: 0 (negative) POST PRANDIAL COUGHIN (positive) POST PRANDIAL VOCAL CHANGES: 0 (negative) ISBELL 6 FACTORS SCORE: 3 ISBELL 6 FACTORS DESCRIPTION: moderate to severe (2 or more clinical predictors) EARL ASSESSMENT OF SWALLOWING ABILITY (MASA): MASA ASPIRATION SEVERITY SCORE: 170 MASA SEVERITY SCORE DESCRIPTION: unremarkable MASA DYSPHAGIA RISK RATING: probable; moderate evidence for disorder CLINICAL ASSESSMENT OF SWALLOW FUNCTION (QUALITATIVE): ORAL PREPARATORY PHASE: competent bolus manipulation sufficient anterior oral containment during manipulation; preserved management of breathing / bolus formation without disrupted E ? S ? E pattern ORAL TRANSITIONAL PHASE: oral phase swallow onset delay (2-3 seconds in length) across trials, most clear marker of disability during recent assessment under fluoroscopy; oral apraxia with associated swallow onset delay (2-8 seconds in length); sufficient oral clearance; trace premature posterior bolus loss noted under fluoroscopy (no subjective clinical findings) PHARYNGEAL PHASE: appropriate hyolaryngeal excursion upon digital palpation; no obvious findings suggestive of pharyngeal phase delay / dyssynchrony; no subjective signs of pharyngeal dysmotility; noted hypernasality suggesting velopharyngeal insufficiency; post prandial throat clearing that may suggest a possible aspiration event (though there is no apparent clinically significant pattern) following ingestion of thin liquids (x1). ESOPHAGEAL PHASE: esophageal phase appears unremarkable COMPLICATING FACTORS AND NOTABLE FINDINGS: complicating factors include possible fatigue effects potentially limiting intake volumes and diminishing the effectiveness of the upper alimentary tract. CLINICAL ASSESSMENT OF SWALLOW FUNCTION (SEVERITY GRADING): SWALLOWING PERFORMANCE SCALE (SPS): 3 (mild) SUPPLEMENTARY COGNITIVE COMMUNICATION ASSESSMENT RESULTS (SCALES/PROM/RISK): VOICE HANDICAP INDEX ? 10 (VHI-10) VHI?10 SCORE: 29 VHI?10 SEVERITY: severe alteration COMMUNICATION ASSESSMENT RESULTS (QUANTITATIVE): NAM MARIUM VOICE TREATMENT (LSVT): MAXIMUM DURATION OF SUSTAINED PRODUCTION: 83.9 dBSPL at 18.69 seconds READING A PASSAGE: 65.26 dBSPL CONVERSATION MONOLOGUE: 61.675 dBSPL GENERATE WORDS: 66.9 dBSPL DESCRIBE A MOTOR TAKS WITH DUAL MOTOR ACTIVITY: 62.375 dBSPL [place]CASTLE DYSARTHRIA ASSESSMENT TOOL (N-LUKE) INTELLIGIBILITY: PERCEIVED INTELLIGIBILITY: intelligible with some difficulty NOTABLE CHARACTERISTICS: hypophonia, dysphonia, hypernasality RESPIRATION: OBSERVED RESPIRATION CHARACTERISTICS: claviclular breathing; shallow breathing BREATHING RATE: 17 breaths per minute (normal: 12-18) PHONATION: LOUDNESS: soft PITCH: low QUALITY: rough; strain-strangled MAXIMUM PHONATION TIME (MPT): MPT TRIAL #1: 21.7 seconds MPT TRIAL #2: 15.6 seconds MPT TRIAL #3: 12.9 seconds AVERAGE MPT: 16.7 seconds (critical region: adult females 14.3-40.0) ABILITY TO SUSTAIN VOLUME: inconsistent; coughing due to saliva build up PITCH GLIDE: ABILITY: variable PITCH RANGE: reduced PITCH CONTROL: phonation breaks RESONANCE: OBSERVATION: hypernasal WORD PRODUCTION (HYPONASALITY): no abnormalities observed WORD PRODUCTION (HYPERNASALITY): abnormal PROSODY: OBSERVATION: unable to vary stress / intonation PROSODY IMITATION: abnormal ARTICULATION: RATE OF SPEECH: slow; variable PHRASE LENGTH: adequate GROPING BEHAVIORS: not present DIADOCHOKINETIC (DDK) RATE (5 SEC): DDK INTERPRETATION: fair SEQUENTIAL MOTION RATES (SMRs): RATE: slow PRECISION: irregular APRAXIA OF SPEECH RATING SCALE (ASRS-v1): ASRS-v1 SCORE: 0/4 ASRS-v1 SCORE DESCRIPTION: apraxia not present APHASIA SEVERITY RATING SCALE (ASRS): ASRS SCORE: 5/5 ASRS SCORE DESCRIPTION: no discernable aphasia patterns COMMUNICATION ASSESSMENT RESULTS (QUALITATIVE): LANGUAGE FUNCTIONING: clinical presentation in line with spastic dysarthria, with slow, labored, imprecise, and at times unintelligible expressive speech compounded with respiration, resonation and phonation disturbances; weakened vocal intensity (hypophonia) with somewhat harsh vocal characteristics; lowered pitch with lack of inflection (monopitch); hypernasality without evidence of nasal emission; facial masking; noted dysgraphia complicating orthographic functioning associated with upper motor neuron dysfunctions typical in PLS; no aphasia, anomia, apraxia, or alexia appreciated throughout the assessment. RECOMMENDATIONS FOR INTERVENTION: The Patient requires continued skilled speech-language intervention targeting training and implementation of recommended compensatory articulation techniques (increased vocal intensity, reduced rate of speech, over- articulation) to facilitate improved speech intelligibility during expressive communication attempts through structured intervention tasks (considerations for a modified LSVT approach), with development of a dedicated carryover program to facilitate achievement of a therapeutic carryover effect; continued diet texture management and training / implementation of recommended compensatory strategies likely with a surveillance approach if her symptomology remains stable and appropriately managed; and Patient / caregiver education regarding dysarthria and dysphagia associated with the diagnosis of primary lateral sclerosis; with goal adjustment as clinically indicated. I would consider training and implementation of oropharyngeal strengthening exercises to facilitate improved oropharyngeal strength and coordination, though significant improvements are unlikely due to the attributed etiology of the Patients swallow deficit. Nonetheless, the Patient is open to attempting all avenues of intervention, with training to proceed following establishment of the FFWP and completion of diet texture preparation training. I would encouraged continued use of the Patients incentive spirometer. POST ASSESSMENT EDUCATION: The Results and recommendations were discussed with the Patient and the Patients family following completion of the assessment, with the Patient and the Patients family verbalizing understanding and agreement with all recommendations and education provided. DIET TEXTURE RECOMMENDATIONS: Will recommend a regular ? soft textured (IDDSI: 6), thin liquid diet (IDDSI: 0) diet RECOMMENDED COMPENSATORY STRATEGIES: Consider cutting tougher textures into bite sized pieces, consider execution of the chin tuck posture, reduced bolus volume / rate of ingestion, seated upright at 90 degrees during PO intake, remain upright for 30-60 minutes post meal (GERD precaution) FUNCTIONAL OUTCOMES: OUTCOME 1: the Patient will demonstrate and utilize recommended compensatory articulation techniques (increased vocal intensity, reduced rate of speech, over-articulation) to facilitate improved speech intelligibility during expressive communication attempts with both familiar and unfamiliar listeners to facilitate highest level of independent functioning within the home environment and community independently / with less than 2 cues during session, in 2 out of 3 sessions. OUTCOME 2: the Patient will demonstrate increased average vocal intensity levels during conversational speech exercises to 68-73 dB by implementation of established breathing techniques and completion of vocal strengthening exercises to facilitate improved subglottal air pressure and improved speech intelligibility during longer expressive communication attempts, with minimal cueing provided by the clinician in 2 out of 3 sessions. OUTCOME 3: the Patient will tolerate the least restrictive means of nutrition to facilitate adequate hydration / nutrition with optimum safety and efficiency of swallowing function during P.O. intake without overt signs and symptoms of aspiration across 3 consecutive sessions. OUTCOME 4: goal adjustment as needed Jerry Perez M.A., CCC-BAG CUTTER, CBIS MBSImP Certified, LSVT Certified [facility] Speech-Language Pathology Department Email: [email or web address]
--- NOTE | 2020-08-13 12:57 | DS_ITS ---
The patient is a 64 year old female who attended 10 skilled speech-language intervention sessions spanning from 01/08/2020 to 04/01/2020 due to persistent dysarthria and dysphagia secondary to the diagnosis of primary lateral sclerosis (PLS) following complications with Lyme disease with additional persistent issues with gait / ambulation. The patient participated in intervention sessions targeting training and implementation of recommended compensatory articulation techniques (increased vocal intensity, reduced rate of speech, over- articulation) to facilitate improved speech intelligibility during expressive communication attempts through structured intervention tasks (considerations for a modified LSVT approach), with development of a dedicated carryover program to facilitate achievement of a therapeutic carryover effect; continued diet texture management and training / implementation of recommended compensatory strategies likely with a surveillance approach if her symptomology remains stable and appropriately managed; and Patient / caregiver education regarding dysarthria and dysphagia associated with the diagnosis of primary lateral sclerosis. The patient reported improved maintenance of dysphagia related symptomology in addition to improving speech intelligibility and reduced aprosodia / dysprosodia. No further sessions were scheduled following the 04/01/2020 session. Given the rather significant laps between intervention sessions, it is appropriate to discharge from the skilled speech-language pathology caseload at this time, as she would likely require a re-assessment prior to re-initiation of intervention; though I will gladly re-initiate intervention as needed moving forward.
== END 2020-04-01 19:00 | disposition home or self-care (01) ==
LOC: SP 13:30
DX: R13.10 Dysphagia, unspecified (principal); R47.1 Dysarthria and anarthria; R26.9 Unspecified abnormalities of gait and mobility
CPT/HCPCS: 92507; 92523; 92610

== ENCOUNTER 2021-10-29 12:35 | Emergency (ER) | payer OTHER, SELFPAY ==
[2021-10-29 12:36] VITALS: BP 135/78; PULSE 69; RESP 15; TEMP 36; O2SAT 100; BMI 22.8
[2021-10-29 12:38] VITALS: BP 135/78; PULSE 69; RESP 15; TEMP 36; O2SAT 100
--- NOTE | 2021-10-29 13:11 | CT_ITS ---
STUDY: CT ABDOMEN AND PELVIS WITH CONTRAST REASON FOR EXAM: Female, 65 years old. PAIN RADIATION DOSAGE (If Supplied By Facility): CTDIvol = ( 13 ) mGy, DLP = ( 595.81 ) mGycm TECHNIQUE: Transaxial images were obtained from the dome of the diaphragm to the symphysis pubis without oral contrast. IV 100mL Isovue-370 was administered. Sagittal and coronal images were reconstructed. Individualized dose optimization techniques were used for this CT. COMPARISON: None. FINDINGS: The visualized lung bases are unremarkable. The visualized portions of the heart are within normal limits. Multiple small liver lesions/cysts. There is non-visualization of the gallbladder, which may be secondary to either contraction or a prior cholecystectomy. Normal spleen. Normal pancreas. Normal bilateral adrenal glands. Normal right kidney. 5.5 cm cyst in the lower pole of the left kidney. No evidence of hydronephrosis. Narrowing of the gastroesophageal junction difficult to accurately evaluate on this exam. The gastric antrum is not distended. Normal caliber small bowel loops. Thickening of the rectosigmoid and descending colon consistent with colitis. Fecal retention in the ascending and transverse colon. The appendix is visualized and appears normal. There is diffuse atherosclerotic calcification of the abdominal aorta with elongation and tortuosity, but without a demonstrated aneurysm. Normal inferior vena cava. Normal retroperitoneum. Thickening of the bladder wall probably due to underdistention. Normal abdominal wall. No demonstrated acute osseous changes. CT/Abdomen/Pelvis W IV Cont ONLY IMPRESSION: 1. Thickening of the descending colon extending to the rectum consistent with colitis. 2. Left renal cyst. 3. Liver lesions likely presenting cysts. Electronically Signed: Jarrett Springer, at 14:45 EST ,
--- NOTE | 2021-10-29 13:12 | ED.VIS.GI ---
HPI HPI - GI History of Present Illness Chief Complaint: GI Bleed Narrative Narrative: History and physical is mildly limited secondary to the patient's expressive aphasia. 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 She does take vitamin EN seropeptides as an anticoagulation/anti-inflammatory. Per her , she has past medical history of micro toxins, Lyme disease, and presents with abdominal cramping in the bilateral lower quadrants. Yesterday she had a bowel movement and had bright red blood per rectum. She has been constipated lately and has been straining. She denies any chest pain or shortness of breath. No lightheadedness or syncopal event. She is now having bright red blood per rectum even without having a bowel movement. She presents for evaluation. Past surgical history includes C-sections. [facility] Medical History (Updated 10/29/21 @ 15:37 by Terrance Colunga MD) Expressive aphasia Lyme disease Primary lateral scleroses Home Medications Valacyclovir Hcl [Valtrex] 1,000 mg PO TID 08/15/18 [History Last Taken Unknown] fluconazole 100 mg PO THFRSA 08/15/18 [History Last Taken 08/15/18] liothyronine 5 mcg PO DAILY 08/15/18 [History Last Taken Unknown] omeprazole 20 mg PO DAILY 08/15/18 [History Last Taken Unknown] thyroid (pork) [Sebring Thyroid] 135 mg PO DAILY 08/15/18 [History Last Taken Unknown] ciprofloxacin HCl [Cipro] 500 mg PO BID #20 tab 10/29/21 [Rx Last Taken Unknown] metronidazole 500 mg PO TID #30 tab 10/29/21 [Rx Last Taken Unknown] Allergy/AdvReac Type Severity Reaction Status Date / Time thimerosal Allergy Itching Verified 08/15/18 08:56 Surgical History (Updated 10/29/21 @ 13:34 by Ivelisse Rubin) History of Hx of cholecystectomy Hx of hysterectomy Hx of thyroidectomy Social History Smoking Status: Never smoker ROS ROS ED ROS Narrative Constitutional: No fever, no chills. HEENT: No sore throat. No neck pain. No loss of vision. No rhinorrhea. Cardiovascular: No chest pain. No palpitations. No pedal edema. Respiratory: No cough, no shortness of breath. Abdominal: Bilateral lower quadrant abdominal pain. No nausea. No vomiting. Previously constipated. No diarrhea. Positive bright red blood per rectum. Genitourinary: No dysuria. No hematuria. Musculoskeletal: No myalgias. No arthralgias. Neurologic: No headaches. No dizziness. No lightheadedness. Skin: No rash. No change in color. Psychiatric: No depression. No anxiety. Obtained through . EXAM Physical Exam Narrative Exam Narrative: Afebrile. Vital signs noted. HEENT: Normocephalic. Atraumatic. PERRL, EOMI. Neck soft and supple. No point tenderness or step off. Cardiovascular: Regular rate and rhythm. No murmurs, rubs, or gallops appreciated. Respiratory: No tachypnea. Lungs clear to auscultation bilaterally. Gastrointestinal: Abdomen soft, minimal tenderness to palpation bilateral lower quadrants, with normoactive bowel sounds. No rebound or guarding. Neurological: Awake. Alert. Nonfocal, nonlateralizing. Skin: No rash. Normal color. No pallor. No subconjunctival pallor. Musculoskeletal: No pedal edema. Full range of motion extremities. Const Vital Signs: 10/29/21 12:36 10/29/21 12:38 Temperature 96.8 F L 96.8 F L Temperature Source Temporal Temporal Pulse Rate 69 69 Respiratory Rate 15 15 Blood Pressure 135/78 H 135/78 H Blood Pressure Mean 97 97 Pulse Ox 100 100 Oxygen Delivery Method Room Air Room Air MDM MDM MDM Narrative Medical decision making narrative: Comprehensive work-up was pursued. Patient unable to produce a stool sample here to be sent for C. difficile. According to the RN, she produced a small mucousy type substance without any bright red blood. I will defer rectal examination at this point. Patient agrees, as it would not add anything to her final diagnosis. She has normal white count of 7.6, hemoglobin stable at 14.1. Platelet count normal at 244. Her electrolyte panel is grossly unremarkable. Urinalysis shows no evidence of infection, negative nitrites and only 5-10 WBCs. I do not feel antibiotics are indicated for urinary tract infection. However, the CT of her abdomen and pelvis does show colitis of the descending colon to the rectum. She will be given her first doses of ciprofloxacin and Flagyl in placed on a 10-day course of therapy. As she does not have a white count or fever, I feel that she can be discharged safely home with follow-up. I did speak with her primary care provider, Dr. Livingston, who will follow up with her closely. She will be given an outpatient order for stool studies and a specimen cup. Return instructions were reviewed. Disposition is discharged home in stable condition. Lab Data Attestation: I reviewed the patient's lab results. Labs: Laboratory Results - last 24 hr 10/29/21 10/29/21 10/29/21 13:35 13:35 14:10 WBC 7.6 RBC 4.57 Hgb 14.1 Hct 43.5 MCV 95.2 MCH 30.9 MCHC 32.4 RDW Std Deviation 44.8 H RDW Coeff of Milagro 12.7 Plt Count 244 MPV 10.0 Immature Gran % (Auto) 0.400 Neut % (Auto) 63.7 Lymph % (Auto) 26.1 [place] % (Auto) 7.9 Eos % (Auto) 1.5 Baso % (Auto) 0.4 Absolute Neuts (auto) 4.8 Absolute Lymphs (auto) 1.97 Nucleated RBC % 0 Sodium 141 Potassium 3.9 Chloride 107 Carbon Dioxide 29.0 Anion Gap 5 BUN 10 Creatinine 0.59 Estim Creat Clear Calc 57.05 Est GFR (MDRD) Af Amer 131 Est GFR (MDRD) Non-Af 108 BUN/Creatinine Ratio 17.0 Glucose 95 Calcium 9.3 Total Bilirubin 0.50 AST 21 ALT 26 Alkaline Phosphatase 97 Total Protein 6.8 Albumin 3.6 Globulin 3.2 Albumin/Globulin Ratio 1.1 Urine Color Yellow Urine Clarity Clear Urine pH 7.0 Ur Specific [place] 1.010 Urine Protein Negative Urine Glucose (UA) Normal Urine Ketones 5 H Urine Occult Blood Negative Urine Nitrite Negative Urine Bilirubin Negative Urine Urobilinogen Normal Ur Leukocyte Esterase 500 H Urine RBC 0 SEEN Urine WBC 5-10 SEEN Ur Squamous Epith Cells 0-5 SEEN Urine Bacteria 0 SEEN Urine Mucus 0 SEEN Radiography Diagnostic Testing: Clinical Impression(s) from Imaging Studies Abdomen/Pelvis CT 10/29/21 13:11 IMPRESSION: 1. Thickening of the descending colon extending to the rectum consistent with colitis. 2. Left renal cyst. 3. Liver lesions likely presenting cysts. Electronically Signed: Jarrett Springer, at 14:45 EST , Discharge Plan Triage Chief Complaint: GI Bleed ED Provider: Terrance Colunga Dx/Rx/DC Orders Clinical Impression: Blood in stool, Colitis Instructions: ED Understanding Colitis, ED Lower GI Bleeding (Stable) Prescriptions: New ciprofloxacin HCl [Cipro] 500 mg tablet 500 mg PO BID Qty: 20 RF: 0 metronidazole 500 mg tablet 500 mg PO TID Qty: 30 RF: 0 No Action fluconazole 100 MG tablet 100 mg PO THFRSA RF: 0 liothyronine 5 MCG tablet 5 mcg PO DAILY RF: 0 omeprazole 20 MG capsule 20 mg PO DAILY RF: 0 thyroid (pork) [Sebring Thyroid] 90 MG tablet 135 mg PO DAILY RF: 0 Valacyclovir Hcl [Valtrex] 1,000 MG tablet 1,000 mg PO TID RF: 0 Referrals: LILLY LIVINGSTON [Other] Disposition Disposition: Home, Self Care
[2021-10-29 13:46] LABS: Absolute Lymphocyte Count 1.97 X10^3/uL (0.83-4.51); Absolute Neutrophil Count 4.8 X10^3/uL (2.0-7.7); Basophil# 0.03 X10^3/uL; Basophil% 0.4 % (0-1); Eosinophil# 0.11 X10^3/uL; Eosinophils% 1.5 % (0-5); Hematocrit 43.5 % (37-47); Hemoglobin 14.1 g/dL (12.0-15.0); Lymphocyte # 1.97 X10^3/ul (0.83-4.51); Lymphocyte % 26.1 % (19-41); Mean Corp Hgb Conc 32.4 g/dL (32-36); Mean Corpuscular Hgb 30.9 pg (27.0-32.0); Mean Corpuscular Volume 95.2 fL (81-99); Monocyte% 7.9 % (0-10); NRBC Flagged by Analyzer 0 % (0-5); Neutrophil # 4.81 X10^3/uL (2.7-7.7); Neutrophil % 63.7 % (47-70); Platelet Count 244 K/mm3 (150-450); RBC Distribution Width CV 12.7 % (11.6-14.6); RBC Distribution Width SD 44.8 fl (35.1-43.9); Red Blood Count 4.57 M/mm3 (4.2-5.4); White Blood Count 7.6 K/mm3 (4.4-11.0)
[2021-10-29 14:02] LABS: ALB/GLOB Ratio 1.1 RATIO (0.9-2.4); AST(SGOT) 21 U/L (15-37); Alanine Aminotransfer ALT/SGPT 26 U/L (13-56); Albumin, Serum 3.6 g/dL (3.2-5.0); Alkaline Phosphatase 97 U/L (45-117); Anion Gap 5 (5-15); BUN 10 mg/dL (7-18); Calcium,Total 9.3 mg/dL (8.5-10.1); Chloride 107 mmol/L (98-107); Creatinine, Serum 0.59 mg/dL (0.55-1.02); EST Glomerular Filtration Rate 108 mL/min (>60); Est Glom Filt Rate - Afr Amer 131 mL/min (>60); Estimated Creatinine Clearance 57.05 ml/min; Globulin 3.2 g/dL (2.2-4.2); Glucose 95 mg/dL (74-106); Potassium 3.9 mmol/L (3.5-5.1); Protein, Total 6.8 g/dL (6.4-8.2); Sodium Level 141 mmol/L (136-145)
[2021-10-29 14:22] LABS: Bacteria 0 SEEN /hpf (None Seen); Mucous, Urine 0 SEEN /hpf (<or=2+); Red Blood Cells-Urine 0 SEEN /hpf (0-5)
[2021-10-29 14:23] LABS: Color, Urine Yellow (Yellow); Glucose, Dipstick Normal (Normal); Ketone-Dipstick 5 mg/dl (Negative); Leukocyte Esterase-Dipstick 500 /ul (Negative); Nitrite-Dipstick Negative (Negative); Occult Blood-Urine Negative /ul (Negative); Protein-Dipstick Negative (Negative); Urine Bilirubin Dipstick Negative (Negative); Urine Clarity Clear (Clear); Urine Urobilinogen Normal (Normal)
[2021-10-29 14:28] LABS: Squamous Epithelial Cells - UA 0-5 SEEN /hpf (5-10)
[2021-10-29 14:29] LABS: White Blood Cells 5-10 SEEN /hpf (0-5)
[2021-10-29] MEDS: Ciprofloxacin 500 MG Tablet PO (15:31)
[2021-10-29] MEDS: metroNIDAZOLE 500 MG Tablet PO (15:31)
[2021-10-29 16:23] VITALS: BP 128/78; PULSE 68; RESP 12; O2SAT 96
== END 2021-10-29 16:23 | disposition home or self-care (01) ==
PROVIDERS: Emergency Provider Emergency Medicine; Visit Provider Emergency Medicine
DX: K52.9 Noninfective gastroenteritis and colitis, unspecified (principal)
CPT/HCPCS: 74177; 80053; 81001; 85025; 99285; Q9967; A4216

== ENCOUNTER 2021-11-01 17:04 | Outpatient (CLI) | payer OTHER, SELFPAY | END 2021-11-01 23:59 | disposition home or self-care (01) | LOC: LABSPEC 17:07 | PROVIDERS: Referring Provider Emergency Medicine; Visit Provider Emergency Medicine | DX: K92.1 Melena (principal) | CPT/HCPCS: 87177; 87209; 87493; 87506 ==

== ENCOUNTER → 2022-06-29 | Outpatient (CLI) | payer OTHER, SELFPAY ==
[2022-06-29 16:36] LABS: Absolute Lymphocyte Count 2.46 X10^3/uL (0.83-4.51); Absolute Neutrophil Count 2.9 X10^3/uL (2.0-7.7); Basophil# 0.03 X10^3/uL; Basophil% 0.5 % (0-1); Eosinophil# 0.13 X10^3/uL; Eosinophils% 2.2 % (0-5); Hematocrit 44.4 % (37-47); Hemoglobin 14.6 g/dL (12.0-15.0); Lymphocyte # 2.46 X10^3/ul (0.83-4.51); Lymphocyte % 40.9 % (19-41); Mean Corp Hgb Conc 32.9 g/dL (32-36); Mean Corpuscular Hgb 31.3 pg (27.0-32.0); Mean Corpuscular Volume 95.3 fL (81-99); Mean Platelet Vol. 10.7 fl (6.2-12.0); Monocyte# 0.49 X10^3/uL; Monocyte% 8.1 % (0-10); NRBC Flagged by Analyzer 0 % (0-5); Neutrophil % 48.1 % (47-70); Platelet Count 201 K/mm3 (150-450); RBC Distribution Width CV 13.2 % (11.6-14.6); RBC Distribution Width SD 46.1 fl (35.1-43.9); Red Blood Count 4.66 M/mm3 (4.2-5.4)
[2022-06-29 16:57] LABS: ALB/GLOB Ratio 1.2 RATIO (0.9-2.4); AST(SGOT) 17 U/L (15-37); Alanine Aminotransfer ALT/SGPT 27 U/L (13-56); Albumin, Serum 3.8 g/dL (3.2-5.0); Alkaline Phosphatase 62 U/L (45-117); Anion Gap 4 (5-15); BUN 20 mg/dL (7-18); BUN/Creat Ratio 29.6 RATIO (10-20); Calcium,Total 9.5 mg/dL (8.5-10.1); Chloride 107 mmol/L (98-107); Cholesterol 256 mg/dL (200); Creatinine, Serum 0.68 mg/dL (0.55-1.02); EST Glomerular Filtration Rate 92 mL/min (>60); Est Glom Filt Rate - Afr Amer 111 mL/min (>60); Globulin 3.2 g/dL (2.2-4.2); Glucose 97 mg/dL (74-106); High Density Lipoprotein 67 mg/dL; Sodium Level 141 mmol/L (136-145); T4 Free Direct 0.86 ng/dL (0.76-1.46); Thyroid Stim Hormone (TSH) 0.04 uIU/mL (0.358-3.74); Triglycerides 144 mg/dL; Very Low Density Lipoprotein 29 mg/dL (5-40)
== END | disposition home or self-care (01) ==
LOC: BIMLAB 14:50
PROVIDERS: PCP Internal Medicine; Referring Provider Internal Medicine; Visit Provider Internal Medicine
DX: G12.23 Primary lateral sclerosis (principal); E89.0 Postprocedural hypothyroidism; Z13.6 Encounter for screening for cardiovascular disorders
CPT/HCPCS: 36415; 80053; 80061; 84439; 84443; 85025

== ENCOUNTER → 2022-08-22 | Outpatient (CLI) | payer OTHER, SELFPAY ==
--- NOTE | 2022-08-22 16:00 | BI_ITS ---
MAMMOGRAPHY - BILATERAL SCREENING REASON FOR EXAM: Female, 66 years old. Routine annual screening examination. PERTINENT HISTORY: Non-contributory. TECHNIQUE: Digital bilateral breast isaiah (3D mammographic acquisition) in the CC and MLO projections. 2-D mediolateral oblique (MLO) and craniocaudad (CC) views of both breasts were obtained. CAD: Full Field Digital Mammography with Computer Added Detection was performed. COMPARISON: Comparison is made with prior examination dated 01/28/2019. FINDINGS: Breast Composition: The breasts are extremely dense, which lowers the sensitivity of mammography. There are no dominant masses or suspicious calcifications. No other significant abnormalities are identified. There has been no significant change since the prior study. BI/SCRN MAMM (CAD)W/ISAIAH BILAT IMPRESSION: Stable bilateral screening mammogram. Yearly follow-up mammogram recommended. (A) ASSESSMENT CATEGORY: BIRADS Category 1: Negative. A letter regarding these results will be sent to the patient by the facility within 30 days. Approximately 10% of breast cancers are not detected by mammography. A normal mammogram should not delay biopsy of a clinically suspicious abnormality. [id number] Electronically Signed: Prashanth Vaughan MD at 8:24 EST ,
--- NOTE | 2022-08-22 16:05 | BD_ITS ---
STUDY: DUAL ENERGY X-RAY ABSORPTIOMETRY / DXA REASON FOR EXAM: Female, 66 years old. Screening TECHNIQUE: Bone Mineral Density (BMD) measurements of lumbar spine and bilateral hips were obtained. COMPARISON: None. FINDINGS: Lumbar Spine (L1-L4): g/cm2 (0.847) / T-score (-1.8) / Z-score (0.2) Findings are suggestive of osteopenia with a moderate fracture risk. Left Femur Total: g/cm2 (0.596) / T-score (-2.8) / Z-score (-1.4) Left Femoral Neck: g/cm2 (0.589) / T-score (-2.3) / Z-score (-0.6) Right Femur Total: g/cm2 (0.503) / T-score (-3.6) / Z-score (-2.2) Right Femoral Neck: g/cm2 (0.547) / T-score (-2.7) / Z-score (-1.0) BD/Dexa Bone Density Study IMPRESSION: The patient is considered osteoporotic as outlined below according to World Joao Organization (WHO) criteria with a high fracture risk. Reference Information: The T-score is the number of standard deviations above or below the standard which is normal for young adults at their peak bone mineral density. The World Health Organization (WHO) interprets the T-scores as follows: Above -1 Normal bone density Between -1 and -2.5 Osteopenia Equal to / or below -2.5 Osteoporosis As a practical clinical guideline, osteopenia may be graded as follows: Mild -1 through -1.5 Moderate -1.6 through -2.0 Severe -2.1 through -2.4 The Z-score is the number of standard deviations above or below age-matched controls. A Z-score of less than -1.5 would be considered abnormal. References: 1. NIH Osteoporosis and Related Bone Diseases www osteo.org 2. International Society for Clinical Densitometry www iscd.org 3. National Osteoporosis Foundation www nof.org Electronically Signed: Prashanth Vaughan MD at 12:31 EST ,
== END | disposition home or self-care (01) ==
LOC: OPBI 15:58
PROVIDERS: PCP Internal Medicine; Visit Provider Internal Medicine
DX: Z12.31 Encounter for screening mammogram for malignant neoplasm of breast (principal); Z78.0 Asymptomatic menopausal state; M81.0 Age-related osteoporosis without current pathological fracture; Z13.820 Encounter for screening for osteoporosis
CPT/HCPCS: 77063; 77067; 77080

== ENCOUNTER 2023-01-17 15:30 | Outpatient (RCR) | payer OTHER, SELFPAY ==
--- NOTE | 2022-06-09 11:09 | HP.PTEVAL ---
Patient's Visit Information WALDEMAR HUDSON is a 66 year old F referred to Physical Therapy by Dr. Jess Dumont MD with a diagnosis of PRIMARY LATERAL SCLEROSIS. Date of Evaluation: 06/09/22 Physical Therapist: Renny Strauss, PT, Cert MDT, OCS - Visit Plan Frequency: 2x /Week Duration: 4 Weeks Plan: PT INTERVENTIONS WITH AQUATIC THERAPY BLE FLEXABILITY ,BLE STRENGTHENING ,BALANCE EX'S ,ROM ,AND FUNCTIONAL STRENGTHENING - Subjective This 66 y/o female presents to physical therapy Primary lateral sclerosis(PLS) . Patient has had condition many years started with foot drop , spasticity before diagnosis with PLS. Condition progressed slowly affects walking, weakness and balance. Patient has slowly affected speech~ 2 years with currently understand struggles with speech and had speech therapy in past. Patient uses phone to communicate. Patient is able to walk ~ 80 ft with rollator. Patient needs assist with ADL's with bathing/dressing and spouse does cooking. Patient has 2 story condo with stairs with rails. Walk-in shower with grab bars . Patient does self hygiene. Patient has occasional paresthesia/tingling in feet . Patient has pain in joints hips/knees affects sleeping. Stiffness when standing ups. But starts moving the pain lessens. No recent falls. No change in condition. Patient condition affects QOL and function. VOCATION: retired. SOCAL: - Pain Bilateral Hip Pain Intensity (Out of 10): 4 Pain Intensity Range: 10 Comment: night Bilateral Knee Pain Intensity (Out of 10): 4 Pain Intensity Range: 10 Comment: night - Objective POSTURE: mild forward posture hips/knees flexed. GAIT: reciprocal pattern hips/knees flexed slow amarilys with rollator. EDEMA: 1+ lower legs. NEURO: denies paresthesia/tingling ,increase spasticity ( hypertonicity ) reflexes hyperreflexia Achilles/patella. FLEXABILITY: hamstrings severe tight, hip adductors mod/severe tight. PROM: knee flexion 30 degrees - 120 degrees ,hip flexion 100 degrees. MMT( peak force) : quads 12.3,hamstrings 6.7,hip flexion 9.7 ,ankle 4/5. BALANCE: fair with fww with rollator. TRANSFERS : sit-stand with min assist. BED MOBILITY: supine-sit min assist - Balance/Special Test Scores Lower Extremity Functional Score: 10 - Goals Goal 1:: I with Aquatic therapy to community based Goal Time Frame: 4-6 Weeks Goal 2:: Patient improve ROM bilateral knees and hips by 5-10 degrees to improve transfers Goal Time Frame: 4-6 Weeks Goal 3:: Patient to demonstrate 40% improvement with function and gait Goal Time Frame: 4-6 Weeks Goal 4:: Patient to transfers with less ease CGA to promote [place] Goal Time Frame: 4-6 Weeks Goal 5:: Patient to improve LFES score by 5 points or > to improve function and giat Goal Time Frame: 4-6 Weeks Goal 6:: Patient to improve peak force by 3-5 of hip/quads to improve gait Goal Time Frame: 4-6 Weeks - Rehabilitation Potential Physical Therapy Diagnosis: This patient has primary lateral stenosis which has which has caused severe spasticity in legs affects walking, function, weakness , and speech deficits thus will benefit from skilled PT Rehabilitation Potential: Good - Anticipated Interventions Patient/Client Instruction: Educate patient on: Condition, Plan of Care For the Purpose of:: To decrease pain, To increase ROM, To improve muscle performance and motor function, To improve ability to perform ADL's, To increase tolerance to activity/condition/position, To improve ability of physical actions for home/community/work/leisure, To improve health of tissue, To decrease soft tissue restriction, To increase flexibility/ROM, To prevent re-injury, To improve tolerance to ADL's Therapeutic Exercise to Include: Strength training, Endurance training, Balance training, Postural training, Flexibilty training, Gait and locomotor training, Passive ROM, Active ROM Comment: BLE For the Purpose of:: To decrease pain, To decrease swelling/inflammation, To increase ROM, To improve ability of physical actions for home/community/work/leisure, To improve gait and locomotor functions, To improve health of tissue, To decrease soft tissue restriction, To improve endurance, To prevent re-injury Manual Therapy Techniques to Include: Passive ROM, Soft tissue mobilization Comment: BLE For the Purpose of:: To decrease pain, To decrease swelling/inflammation, To increase ROM, To improve nutrient delivery to tissue, To increase oxygenation perfusion, To improve health of tissue, To decrease soft tissue restriction, To increase flexibility/ROM Thank you for the opportunity to evaluate your patient. For Medicare and Medicare HMO plans, please review the plan of care and approve it. It will need to be FAXED BACK to us at [phone] for Medicare purposes. For Medicare only, by signing this I certify the plan of care. Please let me know if there are questions or concerns regarding this plan of care. Physician Signature: Date:
--- NOTE | 2022-07-06 15:44 | HP.PTREVAL ---
Dr. Jess Dumont MD, It has been my pleasure to treat WALDEMAR HUDSON over the last 8 visits for PRIMARY LATERAL SCLEROSIS. Please see the progress note below for an update on the physical therapy plan of care! Subjective: Patient reports enjoying therapy .. Less pain in hip and swelling in legs. Objective/Function: POSTURE: forward posture hips/ knees flexed. GAIT: reciprocal pattern forward posture slow amarilys hips/knees flexed. MMT :peak forces-- quads L 12.2,R 13,8,HAMS L 10.8,R 11.8 ,HIP FLEXION 9.8 R ,L 9.5. AROM: 15- 120 DEGREES SUPINE KNEE FLEXION. TRANFERS SIT-STAND SBA/SUPERVSION Plan Plan: CONT WITH POC 2XWK FOR 4 WEEKS. PT INTERVENTIONS WITH AQUATIC THERAPY BLE FLEXABILITY ,BLE STRENGTHENING ,BALANCE EX'S ,ROM ,AND FUNCTIONAL STRENGTHENING Balance/Gait/Functional tests - Balance/Special Test Scores Lower Extremity Functional Score: 12 Goals Goal 1:: I with Aquatic therapy to community based Goal Time Frame: 4-6 Weeks Goal Progress: Progressing Goal 2:: Patient improve ROM bilateral knees and hips by 5-10 degrees to improve transfers Goal Time Frame: 4-6 Weeks Goal Progress: Progressing Goal 3:: Patient to demonstrate 40% improvement with function and gait Goal Time Frame: 4-6 Weeks Goal Progress: Progressing Goal 4:: Patient to transfers with less ease CGA to promote [place] Goal Time Frame: 4-6 Weeks Goal Progress: Goal Met Goal 5:: Patient to improve LFES score by 5 points or > to improve function and giat Goal Time Frame: 4-6 Weeks Goal Progress: Progressing Goal 6:: Patient to improve peak force by 3-5 of hip/quads to improve gait Goal Time Frame: 4-6 Weeks Goal Progress: Progressing Anticipated Interventions Patient/Client Instruction: Educate patient on: Condition, Plan of Care For the Purpose of:: To decrease pain, To increase ROM, To improve muscle performance and motor function, To improve ability to perform ADL's, To increase tolerance to activity/condition/position, To improve ability of physical actions for home/community/work/leisure, To improve health of tissue, To decrease soft tissue restriction, To increase flexibility/ROM, To prevent re-injury, To improve tolerance to ADL's Therapeutic Exercise to Include: Strength training, Endurance training, Balance training, Postural training, Flexibilty training, Gait and locomotor training, Passive ROM, Active ROM Comment: BLE For the Purpose of:: To decrease pain, To decrease swelling/inflammation, To increase ROM, To improve ability of physical actions for home/community/work/leisure, To improve gait and locomotor functions, To improve health of tissue, To decrease soft tissue restriction, To improve endurance, To prevent re-injury Manual Therapy Techniques to Include: Passive ROM, Soft tissue mobilization Comment: BLE For the Purpose of:: To decrease pain, To decrease swelling/inflammation, To increase ROM, To improve nutrient delivery to tissue, To increase oxygenation perfusion, To improve health of tissue, To decrease soft tissue restriction, To increase flexibility/ROM Please do not hesitate to contact me at [phone] by phone or if you have questions or concerns regarding this new plan of care! Sincerely, Renny Strauss, PT, Cert MDT, OCS
--- NOTE | 2022-12-06 13:32 | HP.PTREVAL ---
Dr. Jess Dumont MD, It has been my pleasure to treat WALDEMAR HUDSON over the last 34 visits for PRIMARY LATERAL SCLEROSIS. Please see the progress note below for an update on the physical therapy plan of care! Subjective: Patient has to medication from neurologist. Patient endurance with better for walking. Knee pain is a lot better with walking with water. edema is better with using lower leg ergomter Objective/Function: POSTURE: forward posture. GAIT: reciprocal pattern slow amarilys forward posture hips/knees flexed. PROM:KNEE EXT: 12 DEGREES RIGHT ,LEFT 5 DEGREES. MMT:( peak force) quads right 23 ,2 ,left 28.9,hip flexion 28.7. right ,left 27.8 ,hamstrings 28.7 right ,left 28.5 Plan Plan: CONT WITH POC 1XWK FOR 4 WEEKS ( 14 VISTIS ). PT INTERVENTIONS WITH AQUATIC THERAPY BLE FLEXABILITY ,BLE STRENGTHENING ,BALANCE EX'S ,ROM ,AND FUNCTIONAL STRENGTHENING Balance/Gait/Functional tests - Balance/Special Test Scores Lower Extremity Functional Score: 26 Goals Goal 1:: I with Aquatic therapy to community based Goal Time Frame: 4-6 Weeks Goal Progress: Progressing Goal 2:: Patient improve ROM bilateral knees and hips by 5-10 degrees to improve transfers Goal Time Frame: 4-6 Weeks Goal Progress: Goal Met Goal 3:: Patient to demonstrate 40% improvement with function and gait Goal Time Frame: 4-6 Weeks Goal Progress: Progressing Goal 4:: Patient to transfers with less ease CGA to promote [place] Goal Time Frame: 4-6 Weeks Goal Progress: Goal Met Goal 5:: Patient to improve LFES score by 5 points or > to improve function and giat Goal Time Frame: 4-6 Weeks Goal Progress: Progressing Goal 6:: Patient to improve peak force by 5 of hip/quads to improve gait. ( new goal) Goal Time Frame: 4-6 Weeks Goal Progress: Progressing Anticipated Interventions Patient/Client Instruction: Educate patient on: Condition, Plan of Care For the Purpose of:: To decrease pain, To increase ROM, To improve muscle performance and motor function, To improve ability to perform ADL's, To increase tolerance to activity/condition/position, To improve ability of physical actions for home/community/work/leisure, To improve health of tissue, To decrease soft tissue restriction, To increase flexibility/ROM, To prevent re-injury, To improve tolerance to ADL's Therapeutic Exercise to Include: Strength training, Endurance training, Balance training, Postural training, Flexibilty training, Gait and locomotor training, Passive ROM, Active ROM Comment: BLE For the Purpose of:: To decrease pain, To decrease swelling/inflammation, To increase ROM, To improve ability of physical actions for home/community/work/leisure, To improve gait and locomotor functions, To improve health of tissue, To decrease soft tissue restriction, To improve endurance, To prevent re-injury Manual Therapy Techniques to Include: Passive ROM, Soft tissue mobilization Comment: BLE For the Purpose of:: To decrease pain, To decrease swelling/inflammation, To increase ROM, To improve nutrient delivery to tissue, To increase oxygenation perfusion, To improve health of tissue, To decrease soft tissue restriction, To increase flexibility/ROM Please do not hesitate to contact me at [phone] by phone or if you have questions or concerns regarding this new plan of care! Sincerely, Renny Strauss, PT, Cert MDT, OCS
== END 2023-01-17 16:37 | disposition home or self-care (01) ==
LOC: PT 15:30
PROVIDERS: PCP Internal Medicine; Referring Provider Internal Medicine; Visit Provider Internal Medicine
DX: G12.23 Primary lateral sclerosis (principal)
CPT/HCPCS: 97113; 97162; 97530

== ENCOUNTER → 2023-02-19 | Outpatient (CLI) | payer OTHER, SELFPAY ==
[2023-02-19 17:24] LABS: T4 Free Direct 0.95 ng/dL (0.76-1.46); Thyroid Stim Hormone (TSH) 0.01 uIU/mL (0.358-3.74)
== END | disposition home or self-care (01) ==
LOC: BIMLAB 14:56
PROVIDERS: PCP Internal Medicine; Referring Provider Internal Medicine; Visit Provider Internal Medicine
DX: E89.0 Postprocedural hypothyroidism (principal)
CPT/HCPCS: 36415; 84439; 84443

== ENCOUNTER 2023-04-13 15:00 | Outpatient (RCR) | payer OTHER, SELFPAY | END 2023-04-13 19:00 | disposition home or self-care (01) | LOC: PT 15:00 | PROVIDERS: PCP Internal Medicine; Referring Provider Internal Medicine; Visit Provider Internal Medicine | DX: G12.23 Primary lateral sclerosis (principal) | CPT/HCPCS: 97113; 97530 ==

== ENCOUNTER → 2023-06-27 | Outpatient (CLI) | payer OTHER, SELFPAY ==
[2023-06-27 13:02] LABS: Absolute Lymphocyte Count 1.87 X10^3/uL (0.83-4.51); Absolute Neutrophil Count 2.2 X10^3/uL (2.0-7.7); Basophil# 0.05 X10^3/uL; Basophil% 1.1 % (0-1); Eosinophils% 2.2 % (0-5); Hematocrit 47.7 % (37-47); Lymphocyte # 1.87 X10^3/ul (0.83-4.51); Lymphocyte % 41.5 % (19-41); Mean Corp Hgb Conc 31.4 g/dL (32-36); Mean Corpuscular Hgb 30.7 pg (27.0-32.0); Mean Corpuscular Volume 97.5 fL (81-99); Mean Platelet Vol. 11.4 fl (6.2-12.0); Monocyte# 0.32 X10^3/uL; Monocyte% 7.1 % (0-10); NRBC Flagged by Analyzer 0 % (0-5); Neutrophil # 2.16 X10^3/uL (2.7-7.7); Neutrophil % 47.9 % (47-70); Platelet Count 188 K/mm3 (150-450); RBC Distribution Width CV 13.9 % (11.6-14.6); RBC Distribution Width SD 50.3 fl (35.1-43.9); Red Blood Count 4.89 M/mm3 (4.2-5.4); White Blood Count 4.5 K/mm3 (4.4-11.0)
[2023-06-27 13:23] LABS: Hepatitis B Surface Antibody Non-Reactive
[2023-06-27 13:36] LABS: ALB/GLOB Ratio 1.2 RATIO (0.9-2.4); AST(SGOT) 21 U/L (15-37); Alanine Aminotransfer ALT/SGPT 31 U/L (13-56); Albumin, Serum 3.7 g/dL (3.2-5.0); Alkaline Phosphatase 91 U/L (45-117); Anion Gap 4 (5-15); BUN 15 mg/dL (7-18); BUN/Creat Ratio 22.6 RATIO (10-20); Calcium,Total 8.9 mg/dL (8.5-10.1); Chloride 106 mmol/L (98-107); Cholesterol 256 mg/dL (200); Creatinine, Serum 0.66 mg/dL (0.55-1.02); EST Glomerular Filtration Rate 94 mL/min (>60); Est Glom Filt Rate - Afr Amer 113 mL/min (>60); Globulin 3.1 g/dL (2.2-4.2); Glucose 96 mg/dL (74-106); High Density Lipoprotein 71 mg/dL; Potassium 4.3 mmol/L (3.5-5.1); Protein, Total 6.8 g/dL (6.4-8.2); Sodium Level 138 mmol/L (136-145); Triglycerides 92 mg/dL; Very Low Density Lipoprotein 18 mg/dL (5-40)
[2023-06-27 13:41] LABS: Hemoglobin A1c 5.2 % (3.8-5.6)
[2023-06-28 16:09] LABS: HEPATITIS B SURFACE AG Negative (Negative); Hep C Antibodies Non Reactive (Non Reactive); Hepatitis A AB, Total Positive (Negative); Hepatitis A IgM Antibody Negative (Negative); Hepatitis B Core AB IgM Negative (Negative); PROEL- A/G Ratio 2.2 (0.7-1.7); PROEL- Albumin 4.2 g/dL (2.9-4.4); PROEL- Alpha-1 Globulin 0.1 g/dL (0.0-0.4); PROEL- Alpha-2 Globulin 0.5 g/dL (0.4-1.0); PROEL- Beta Globulin 0.9 g/dL (0.7-1.3); PROEL- Gamma Globulin 0.4 g/dL (0.4-1.8); PROEL- Globulin, Total 1.9 g/dL (2.2-3.9); PROEL- TOTAL PROTEIN 6.1 g/dL (6.0-8.5); PROEL-M-Spike Not Observed g/dL (Not Observed); Thyroid Peroxidase AB < 9 IU/mL (0-34)
[2023-06-29 08:13] LABS: Anti-Nuclear Antibody Test Negative (.)
== END | disposition home or self-care (01) ==
LOC: BIMLAB 09:10
PROVIDERS: PCP Internal Medicine; Referring Provider Physician Assistant; Visit Provider Physician Assistant
DX: L30.9 Dermatitis, unspecified (principal); G12.23 Primary lateral sclerosis; E89.0 Postprocedural hypothyroidism; E78.2 Mixed hyperlipidemia
CPT/HCPCS: 36415; 80053; 80061; 80074; 83036; 84165; 85025; 86038; 86376; 86706; 86708

== ENCOUNTER → 2023-10-17 | Outpatient (CLI) | payer MEDICARE, SELFPAY ==
[2023-10-17 15:53] LABS: Erythrocyte Sedimentation Rate 3 mm/hr (0-30)
[2023-10-17 16:10] LABS: PTHIN 64.3 pg/mL (18.4-80.1)
[2023-10-17 16:15] LABS: T4 Free Direct 1.07 ng/dL (0.76-1.46)
[2023-10-17 16:17] LABS: Vitamin D,25 Hydroxy 30.6 ng/mL
[2023-10-17 16:23] LABS: CPK Total, Creatine Kinase 123 U/L (26-192); Free T3 1.6 pg/mL (2.18-3.98)
[2023-10-19 13:08] LABS: Aldolase 3.6 U/L (3.3-10.3)
[2023-10-19 18:08] LABS: Anti-Thyroglobulin AB < 1.0 IU/mL (0.0-0.9); Thyroglobulin, Serum Qt. < 0.1 ng/mL (1.5-38.5)
== END | disposition home or self-care (01) ==
LOC: BIMLAB 12:59
PROVIDERS: PCP Internal Medicine; Visit Provider Internal Medicine Endocrinology, Diabetes & Metabolism
DX: M79.10 Myalgia, unspecified site (principal); C73 Malignant neoplasm of thyroid gland; E56.8 Deficiency of other vitamins; M81.0 Age-related osteoporosis without current pathological fracture; E89.0 Postprocedural hypothyroidism; E55.9 Vitamin D deficiency, unspecified
CPT/HCPCS: 36415; 82085; 82306; 82550; 83970; 84432; 84439; 84443; 84481; 85652; 86800

== ENCOUNTER → 2023-11-22 | Outpatient (CLI) | payer MEDICARE, SELFPAY ==
[2023-11-22 13:05] LABS: Free T3 2.1 pg/mL (2.18-3.98); T4 Free Direct 1.36 ng/dL (0.76-1.46); Thyroid Stim Hormone (TSH) 2.59 uIU/mL (0.358-3.74)
== END | disposition home or self-care (01) ==
LOC: BIMLAB 11:11
PROVIDERS: PCP Internal Medicine; Referring Provider Internal Medicine Endocrinology, Diabetes & Metabolism; Visit Provider Internal Medicine Endocrinology, Diabetes & Metabolism
DX: E03.9 Hypothyroidism, unspecified (principal)
CPT/HCPCS: 36415; 84439; 84443; 84481

== ENCOUNTER 2024-01-02 11:20 | Outpatient (CLI) | payer MEDICARE, SELFPAY ==
[2024-01-02 12:07] LABS: Absolute Lymphocyte Count 1.79 X10^3/uL (0.83-4.51); Absolute Neutrophil Count 2.6 X10^3/uL (2.0-7.7); Basophil# 0.06 X10^3/uL; Basophil% 1.2 % (0-1); Eosinophil# 0.14 X10^3/uL; Eosinophils% 2.8 % (0-5); Hematocrit 45.4 % (37-47); Hemoglobin 14.3 g/dL (12.0-15.0); Lymphocyte # 1.79 X10^3/ul (0.83-4.51); Lymphocyte % 36.1 % (19-41); Mean Corp Hgb Conc 31.5 g/dL (32-36); Mean Corpuscular Volume 98.5 fL (81-99); Mean Platelet Vol. 10.7 fl (6.2-12.0); Monocyte# 0.36 X10^3/uL; Monocyte% 7.3 % (0-10); NRBC Flagged by Analyzer 0 % (0-5); Neutrophil % 52.4 % (47-70); Platelet Count 198 K/mm3 (150-450); RBC Distribution Width CV 13.5 % (11.6-14.6); RBC Distribution Width SD 48.8 fl (35.1-43.9); Red Blood Count 4.61 M/mm3 (4.2-5.4)
[2024-01-02 12:32] LABS: ALB/GLOB Ratio 1.4 RATIO (0.9-2.4); AST(SGOT) 17 U/L (15-37); Alanine Aminotransfer ALT/SGPT 21 U/L (13-56); Albumin, Serum 3.8 g/dL (3.2-5.0); Alkaline Phosphatase 70 U/L (45-117); Anion Gap 3 (5-15); BUN 22 mg/dL (7-18); BUN/Creat Ratio 39.4 RATIO (10-20); Calcium,Total 9.1 mg/dL (8.5-10.1); Chloride 110 mmol/L (98-107); Creatinine, Serum 0.56 mg/dL (0.55-1.02); EST Glomerular Filtration Rate 114 mL/min (>60); Est Glom Filt Rate - Afr Amer 138 mL/min (>60); Ferritin 78 ng/mL (8-252); Globulin 2.8 g/dL (2.2-4.2); Glucose 89 mg/dL (74-106); Iron 131 ug/dL (50-170); Protein, Total 6.6 g/dL (6.4-8.2); Sodium Level 142 mmol/L (136-145)
[2024-01-06 15:07] LABS: G6PD Quant Test 262 (127-427); Mycoplasma Pneum AB IgG < 100 U/mL (0-99); Mycoplasma pneum. AB IgM < 770 U/mL (0-769); Red Blood Cell Count Test/G6PD 4.55 x10E6/uL (3.77-5.28)
== END 2024-01-02 23:59 | disposition home or self-care (01) ==
PROVIDERS: PCP Internal Medicine; Visit Provider Nurse Practitioner Family
DX: A44.0 Systemic bartonellosis (principal); M62.81 Muscle weakness (generalized)
CPT/HCPCS: 36415; 80053; 82728; 82955; 83540; 85025; 86738

== ENCOUNTER → 2024-03-12 | Outpatient (CLI) | payer MEDICARE, SELFPAY ==
[2024-03-12 19:20] LABS: Estradiol < 11.0 pg/mL; Ferritin 89 ng/mL (8-252); Iron 81 ug/dL (50-170)
[2024-03-14 08:13] LABS: PROGESTERONE 0.1 ng/mL (.)
== END | disposition home or self-care (01) ==
PROVIDERS: PCP Internal Medicine; Referring Provider Nurse Practitioner Family; Visit Provider Nurse Practitioner Family
DX: M62.81 Muscle weakness (generalized) (principal); G12.20 Motor neuron disease, unspecified; R47.1 Dysarthria and anarthria; A44.0 Systemic bartonellosis; A68.1 Tick-borne relapsing fever; R53.82 Chronic fatigue, unspecified; M25.561 Pain in right knee; G90.8 Other disorders of autonomic nervous system; R29.818 Other symptoms and signs involving the nervous system; Z77.120 Contact with and (suspected) exposure to mold (toxic)
CPT/HCPCS: 82627; 82670; 82728; 83540; 84144; 84403; 82626

== ENCOUNTER → 2024-05-16 | Outpatient (CLI) | payer MEDICARE, SELFPAY ==
[2024-05-16 13:27] LABS: Absolute Lymphocyte Count 1.56 X10^3/uL (0.83-4.51); Basophil# 0.05 X10^3/uL; Eosinophil# 0.11 X10^3/uL; Eosinophils% 2.1 % (0-5); Hematocrit 42.1 % (37-47); Hemoglobin 13.2 g/dL (12.0-15.0); Lymphocyte # 1.56 X10^3/ul (0.83-4.51); Lymphocyte % 30.3 % (19-41); Mean Corp Hgb Conc 31.4 g/dL (32-36); Mean Corpuscular Hgb 31.4 pg (27.0-32.0); Mean Corpuscular Volume 100.2 fL (81-99); Mean Platelet Vol. 10.6 fl (6.2-12.0); Monocyte# 0.38 X10^3/uL; Monocyte% 7.4 % (0-10); NRBC Flagged by Analyzer 0 % (0-5); Neutrophil # 3.04 X10^3/uL (2.7-7.7); Platelet Count 222 K/mm3 (150-450); RBC Distribution Width CV 13.8 % (11.6-14.6); RBC Distribution Width SD 50.6 fl (35.1-43.9); White Blood Count 5.2 K/mm3 (4.4-11.0)
[2024-05-16 14:32] LABS: ALB/GLOB Ratio 1.3 RATIO (0.9-2.4); AST(SGOT) 20 U/L (15-37); Alanine Aminotransfer ALT/SGPT 30 U/L (13-56); Albumin, Serum 3.7 g/dL (3.2-5.0); Alkaline Phosphatase 75 U/L (45-117); Anion Gap 9 (5-15); BUN 18 mg/dL (7-18); BUN/Creat Ratio 23.6 RATIO (10-20); Calcium,Total 9.6 mg/dL (8.5-10.1); Chloride 103 mmol/L (98-107); Creatinine, Serum 0.76 mg/dL (0.55-1.02); EST Glomerular Filtration Rate 80 mL/min (>60); Est Glom Filt Rate - Afr Amer 96 mL/min (>60); Ferritin 60 ng/mL (8-252); Globulin 2.8 g/dL (2.2-4.2); Glucose 125 mg/dL (74-106); Iron 92 ug/dL (50-170); Potassium 3.9 mmol/L (3.5-5.1); Protein, Total 6.5 g/dL (6.4-8.2); Sodium Level 141 mmol/L (136-145)
[2024-05-18 08:08] LABS: Haptoglobin 100 mg/dL (37-355)
== END | disposition home or self-care (01) ==
LOC: LABSPEC 12:50
PROVIDERS: PCP Internal Medicine; Referring Provider Nurse Practitioner Family; Visit Provider Nurse Practitioner Family
DX: M62.81 Muscle weakness (generalized) (principal); G12.20 Motor neuron disease, unspecified; M25.561 Pain in right knee; A44.0 Systemic bartonellosis; G90.8 Other disorders of autonomic nervous system; A68.1 Tick-borne relapsing fever; R47.1 Dysarthria and anarthria; R29.818 Other symptoms and signs involving the nervous system; Z77.120 Contact with and (suspected) exposure to mold (toxic)
CPT/HCPCS: 80053; 82728; 82746; 83010; 83540; 85025

== ENCOUNTER → 2024-08-05 | Outpatient (CLI) | payer MEDICARE, SELFPAY ==
[2024-08-06 12:42] LABS: Absolute Lymphocyte Count 1.58 X10^3/uL (0.83-4.51); Basophil# 0.05 X10^3/uL; Basophil% 0.9 % (0-1); Eosinophil# 0.13 X10^3/uL; Eosinophils% 2.4 % (0-5); Hematocrit 39.4 % (37-47); Hemoglobin 12.5 g/dL (12.0-15.0); Lymphocyte # 1.58 X10^3/ul (0.83-4.51); Lymphocyte % 29.7 % (19-41); Mean Corp Hgb Conc 31.7 g/dL (32-36); Mean Corpuscular Hgb 32.1 pg (27.0-32.0); Mean Platelet Vol. 11.7 fl (6.2-12.0); Monocyte% 9.4 % (0-10); NRBC Flagged by Analyzer 0 % (0-5); Neutrophil # 3.01 X10^3/uL (2.7-7.7); Neutrophil % 56.7 % (47-70); Platelet Count 192 K/mm3 (150-450); RBC Distribution Width CV 13.5 % (11.6-14.6); RBC Distribution Width SD 50.3 fl (35.1-43.9); White Blood Count 5.3 K/mm3 (4.4-11.0)
[2024-08-06 12:48] LABS: ALB/GLOB Ratio 1.7 RATIO (0.9-2.4); AST(SGOT) 18 U/L (15-37); Alanine Aminotransfer ALT/SGPT 23 U/L (13-56); Albumin, Serum 3.7 g/dL (3.2-5.0); Alkaline Phosphatase 90 U/L (45-117); Anion Gap 4 (5-15); BUN 20 mg/dL (7-18); BUN/Creat Ratio 42.4 RATIO (10-20); Calcium,Total 8.8 mg/dL (8.5-10.1); Chloride 108 mmol/L (98-107); Creatinine, Serum 0.47 mg/dL (0.55-1.02); EST Glomerular Filtration Rate 138 mL/min (>60); Est Glom Filt Rate - Afr Amer 167 mL/min (>60); Globulin 2.2 g/dL (2.2-4.2); Glucose 89 mg/dL (74-106); Potassium 4.1 mmol/L (3.5-5.1); Protein, Total 5.9 g/dL (6.4-8.2); Sodium Level 142 mmol/L (136-145)
== END | disposition home or self-care (01) ==
PROVIDERS: PCP Internal Medicine; Referring Provider Nurse Practitioner Family; Visit Provider Nurse Practitioner Family
DX: M62.81 Muscle weakness (generalized) (principal); G12.20 Motor neuron disease, unspecified; R47.1 Dysarthria and anarthria; A44.0 Systemic bartonellosis; A68.1 Tick-borne relapsing fever; R53.82 Chronic fatigue, unspecified; M25.561 Pain in right knee; G90.89 Other disorders of autonomic nervous system; R29.818 Other symptoms and signs involving the nervous system; Z77.120 Contact with and (suspected) exposure to mold (toxic)
CPT/HCPCS: 80053; 85025

== ENCOUNTER → 2024-09-05 | Outpatient (CLI) | payer MEDICARE, SELFPAY ==
[2024-09-05 18:07] LABS: Absolute Lymphocyte Count 1.56 X10^3/uL (0.83-4.51); Absolute Neutrophil Count 3.2 X10^3/uL (2.0-7.7); Basophil# 0.04 X10^3/uL; Basophil% 0.7 % (0-1); Eosinophil# 0.12 X10^3/uL; Eosinophils% 2.2 % (0-5); Hemoglobin 11.8 g/dL (12.0-15.0); Lymphocyte # 1.56 X10^3/ul (0.83-4.51); Lymphocyte % 28.4 % (19-41); Mean Corp Hgb Conc 31.9 g/dL (32-36); Mean Corpuscular Hgb 34.3 pg (27.0-32.0); Mean Corpuscular Volume 107.6 fL (81-99); Mean Platelet Vol. 11.2 fl (6.2-12.0); Monocyte# 0.51 X10^3/uL; Monocyte% 9.3 % (0-10); NRBC Flagged by Analyzer 0 % (0-5); Neutrophil # 3.24 X10^3/uL (2.7-7.7); Neutrophil % 58.9 % (47-70); Platelet Count 193 K/mm3 (150-450); RBC Distribution Width CV 14.8 % (11.6-14.6); RBC Distribution Width SD 59.2 fl (35.1-43.9); Red Blood Count 3.44 M/mm3 (4.2-5.4); White Blood Count 5.5 K/mm3 (4.4-11.0)
[2024-09-05 18:35] LABS: ALB/GLOB Ratio 1.4 RATIO (0.9-2.4); AST(SGOT) 16 U/L (15-37); Alanine Aminotransfer ALT/SGPT 22 U/L (13-56); Albumin, Serum 3.6 g/dL (3.2-5.0); Alkaline Phosphatase 74 U/L (45-117); Anion Gap 4 (5-15); BUN 21 mg/dL (7-18); BUN/Creat Ratio 35.2 RATIO (10-20); Chloride 108 mmol/L (98-107); EST Glomerular Filtration Rate 105 mL/min (>60); Est Glom Filt Rate - Afr Amer 128 mL/min (>60); Globulin 2.5 g/dL (2.2-4.2); Glucose 99 mg/dL (74-106); Protein, Total 6.1 g/dL (6.4-8.2); Sodium Level 143 mmol/L (136-145); T4 Free Direct 0.74 ng/dL (0.76-1.46)
[2024-09-07 08:07] LABS: Haptoglobin < 10 mg/dL (37-355)
== END | disposition home or self-care (01) ==
PROVIDERS: PCP Internal Medicine; Referring Provider Nurse Practitioner Family; Visit Provider Nurse Practitioner Family
DX: M62.81 Muscle weakness (generalized) (principal); G12.20 Motor neuron disease, unspecified; R47.1 Dysarthria and anarthria; A44.0 Systemic bartonellosis; A68.1 Tick-borne relapsing fever; M25.561 Pain in right knee; G90.89 Other disorders of autonomic nervous system; R29.818 Other symptoms and signs involving the nervous system; E03.9 Hypothyroidism, unspecified; Z77.120 Contact with and (suspected) exposure to mold (toxic)
CPT/HCPCS: 80053; 83010; 84439; 84443; 84481; 85025

== ENCOUNTER → 2024-10-01 | Outpatient (CLI) | payer MEDICARE, SELFPAY ==
[2024-10-01 16:34] LABS: Absolute Lymphocyte Count 1.01 X10^3/uL (0.83-4.51); Absolute Neutrophil Count 3.3 X10^3/uL (2.0-7.7); Basophil# 0.03 X10^3/uL; Basophil% 0.6 % (0-1); Eosinophil# 0.06 X10^3/uL; Eosinophils% 1.3 % (0-5); Hematocrit 35.4 % (37-47); Hemoglobin 11.4 g/dL (12.0-15.0); Lymphocyte # 1.01 X10^3/ul (0.83-4.51); Lymphocyte % 21.1 % (19-41); Mean Corp Hgb Conc 32.2 g/dL (32-36); Mean Corpuscular Hgb 34.2 pg (27.0-32.0); Mean Corpuscular Volume 106.3 fL (81-99); Mean Platelet Vol. 11.6 fl (6.2-12.0); Monocyte% 8.4 % (0-10); NRBC Flagged by Analyzer 0 % (0-5); Neutrophil # 3.26 X10^3/uL (2.7-7.7); Neutrophil % 68.2 % (47-70); Platelet Count 163 K/mm3 (150-450); RBC Distribution Width CV 12.6 % (11.6-14.6); RBC Distribution Width SD 49.1 fl (35.1-43.9); Red Blood Count 3.33 M/mm3 (4.2-5.4); White Blood Count 4.8 K/mm3 (4.4-11.0)
[2024-10-01 16:58] LABS: ALB/GLOB Ratio 1.2 RATIO (0.9-2.4); AST(SGOT) 55 U/L (15-37); Alanine Aminotransfer ALT/SGPT 27 U/L (13-56); Albumin, Serum 3.5 g/dL (3.2-5.0); Alkaline Phosphatase 54 U/L (45-117); Anion Gap 6 (5-15); BUN 14 mg/dL (7-18); BUN/Creat Ratio 26.3 RATIO (10-20); Chloride 106 mmol/L (98-107); Creatinine, Serum 0.53 mg/dL (0.55-1.02); EST Glomerular Filtration Rate 120 mL/min (>60); Est Glom Filt Rate - Afr Amer 145 mL/min (>60); Globulin 2.9 g/dL (2.2-4.2); Glucose 101 mg/dL (74-106); Potassium 4.6 mmol/L (3.5-5.1); Protein, Total 6.4 g/dL (6.4-8.2); Sodium Level 141 mmol/L (136-145); T4 Total, Thyroxin 10.8 ug/dL (4.8-13.9)
[2024-10-01 17:08] LABS: T3 Total - Triiodothyronine 1.16 ng/mL (0.6-1.81)
[2024-10-03 05:06] LABS: Haptoglobin 144 mg/dL (37-355)
[2024-10-03 12:50] LABS: Free T3 3.7 pg/mL (2.18-3.98); T4 Free Direct 1.21 ng/dL (0.76-1.46)
== END | disposition home or self-care (01) ==
LOC: LABSPEC 15:07
PROVIDERS: PCP Internal Medicine; Referring Provider Nurse Practitioner Family; Visit Provider Nurse Practitioner Family
DX: M62.81 Muscle weakness (generalized) (principal); G12.20 Motor neuron disease, unspecified; A44.0 Systemic bartonellosis; A68.1 Tick-borne relapsing fever; M25.561 Pain in right knee; G90.89 Other disorders of autonomic nervous system; E03.9 Hypothyroidism, unspecified; R29.818 Other symptoms and signs involving the nervous system; R47.1 Dysarthria and anarthria; R53.82 Chronic fatigue, unspecified; Z77.120 Contact with and (suspected) exposure to mold (toxic)
CPT/HCPCS: 80053; 83010; 84436; 84439; 84443; 84480; 84481; 85025

== ENCOUNTER → 2025-03-20 | Outpatient (CLI) | payer MEDICARE, SELFPAY ==
[2025-03-20 12:57] LABS: Hematocrit 40.5 % (37-47); Hemoglobin 13.0 g/dL (12.0-15.0); Immature Granulocytes Count 0.030 X10^3/uL (0.0-0.0); Mean Corp Hgb Conc 32.1 g/dL (32-36); Mean Corpuscular Volume 96.4 fL (81-99); Mean Platelet Vol. 11.4 fl (6.2-12.0); NRBC Flagged by Analyzer 0 % (0-5); Platelet Count 258 K/mm3 (150-450); RBC Distribution Width CV 13.7 % (11.6-14.6); RBC Distribution Width SD 48.2 fl (35.1-43.9); Red Blood Count 4.20 M/mm3 (4.2-5.4); White Blood Count 6.3 K/mm3 (4.4-11.0)
== END | disposition home or self-care (01) ==
LOC: LABSPEC 12:42
PROVIDERS: PCP Internal Medicine; Referring Provider Nurse Practitioner Family; Visit Provider Nurse Practitioner Family
DX: R79.9 Abnormal finding of blood chemistry, unspecified (principal)
CPT/HCPCS: 85025

== ENCOUNTER → 2025-04-10 | Outpatient (CLI) | payer MEDICARE, SELFPAY ==
[2025-04-10 15:54] LABS: Hematocrit 41.2 % (37-47); Hemoglobin 13.4 g/dL (12.0-15.0); Immature Granulocytes Count 0.010 X10^3/uL (0.0-0.0); Mean Corp Hgb Conc 32.5 g/dL (32-36); Mean Corpuscular Volume 95.8 fL (81-99); Mean Platelet Vol. 11.1 fl (6.2-12.0); NRBC Flagged by Analyzer 0 % (0-5); Platelet Count 228 K/mm3 (150-450); RBC Distribution Width CV 13.3 % (11.6-14.6); RBC Distribution Width SD 46.7 fl (35.1-43.9); Red Blood Count 4.30 M/mm3 (4.2-5.4); White Blood Count 5.5 K/mm3 (4.4-11.0)
[2025-04-10 17:00] LABS: AST(SGOT) 67 U/L (<=31); Alanine Aminotransfer ALT/SGPT 32 U/L (<=34); Albumin, Serum 4.2 g/dL (3.4-4.8); Alkaline Phosphatase 82 U/L (35-104); Anion Gap 12 (5-15); BUN 15 mg/dL (4-19); BUN/Creat Ratio 33.8 RATIO (10-20); Calcium,Total 9.9 mg/dL (7.6-11.0); Carbon Dioxide 24.3 mmol/L (21.0-32.0); Chloride 104 mmol/L (98-108); Globulin 2.3 g/dL (2.2-4.2); Glucose 119 mg/dL (70-99); Potassium 5.4 mmol/L (3.3-5.1)
== END | disposition home or self-care (01) ==
LOC: LABSPEC 15:26
PROVIDERS: PCP Internal Medicine; Referring Provider Nurse Practitioner Family; Visit Provider Nurse Practitioner Family
DX: R79.9 Abnormal finding of blood chemistry, unspecified (principal)
CPT/HCPCS: 80053; 85025

== ENCOUNTER → 2025-04-27 | Outpatient (CLI) | payer MEDICARE, SELFPAY ==
[2025-04-27 17:12] LABS: AST(SGOT) 20 U/L (<=31); Alanine Aminotransfer ALT/SGPT 26 U/L (<=34); Albumin, Serum 4.2 g/dL (3.4-4.8); Alkaline Phosphatase 83 U/L (35-104); Anion Gap 13 (5-15); BUN 19 mg/dL (4-19); BUN/Creat Ratio 43.2 RATIO (10-20); Calcium,Total 9.8 mg/dL (7.6-11.0); Carbon Dioxide 25.4 mmol/L (21.0-32.0); Chloride 104 mmol/L (98-108); Globulin 2.4 g/dL (2.2-4.2); Glucose 109 mg/dL (70-99); Potassium 4.0 mmol/L (3.3-5.1)
== END | disposition home or self-care (01) ==
LOC: LABSPEC 15:23
PROVIDERS: PCP Internal Medicine; Referring Provider Nurse Practitioner Family; Visit Provider Nurse Practitioner Family
DX: R79.9 Abnormal finding of blood chemistry, unspecified (principal)
CPT/HCPCS: 80053

== ENCOUNTER → 2025-05-19 | Outpatient (CLI) | payer MEDICARE, SELFPAY ==
[2025-05-19 19:33] LABS: AST(SGOT) 20 U/L (<=31); Alanine Aminotransfer ALT/SGPT 22 U/L (<=34); Albumin, Serum 4.1 g/dL (3.4-4.8); Alkaline Phosphatase 72 U/L (35-104); Anion Gap 12 (5-15); BUN 17 mg/dL (4-19); BUN/Creat Ratio 36.1 RATIO (10-20); Calcium,Total 9.4 mg/dL (7.6-11.0); Carbon Dioxide 22.4 mmol/L (21.0-32.0); Chloride 106 mmol/L (98-108); Globulin 2.3 g/dL (2.2-4.2); Glucose 94 mg/dL (70-99); Potassium 4.0 mmol/L (3.3-5.1)
== END | disposition home or self-care (01) ==
PROVIDERS: PCP Internal Medicine; Visit Provider Nurse Practitioner Family
DX: M62.81 Muscle weakness (generalized) (principal); G12.20 Motor neuron disease, unspecified; R47.1 Dysarthria and anarthria; A44.0 Systemic bartonellosis; A68.1 Tick-borne relapsing fever; R53.82 Chronic fatigue, unspecified; M25.561 Pain in right knee; G90.89 Other disorders of autonomic nervous system; R29.818 Other symptoms and signs involving the nervous system; I89.0 Lymphedema, not elsewhere classified; B60.09 Other babesiosis; Z77.120 Contact with and (suspected) exposure to mold (toxic)
CPT/HCPCS: 80053; 84100

== ENCOUNTER → 2025-05-20 | Outpatient (CLI) | payer MEDICARE, SELFPAY ==
--- OUTSIDE RECORDS SUMMARY | 2025-05-20 21:39 | XMS RPT_ITS | CCD ---
Author Organization [facility]iniSyn[facility] Care Team Providers Care Lubrication Servicer Name Role Phone Dr. Keren Dumont Primary Care Provider Dr. Keren Dumont Attending Provider [phone] Dr. Keren Dumont Referring Provider [phone] JOSEPH Mendieta Attending Provider [facility] Unavailable [facility] Unavailable Dr. Keren Dumont Primary Care Provider Dr. Keren Dumont Attending Provider [phone] Dr. Keren Dumont Referring Provider JOSEPH Mendieta Attending Provider Lilly Livingston MD Primary Care Provider LILLY LIVINGSTON Primary Care Unavailable STIVEN MARTE Referring Unavailable STIVEN MARTE Attending Unavailable LILLY LIVINGSTON Primary Care Unavailable [facility] Unavailable Dr. Keren Dumont Primary Care Provider Dr. Keren Dumont Referring Provider Dr. Medhat Guadarrama Attending Provider Dr. Keren Dumont Primary Care Provider Dr. Keren Dumont Referring Provider Dr. Medhat Guadarrama Attending Provider Daniel Paez DO Primary Care Provider Daniel Paez DO Primary Care Provider Jose COOK Daniel Primary Care Provider [phone] Keren Dumont MD Primary Care Provider Paez DO, Daniel Unavailable [phone], Boris J Unavailable JAYY, JUNSIK Attending Unavailable ASHANTI, KEREN G Primary Care Unavailable JAYY, JUNSIK Attending Unavailable ASHANTI, KEREN G Primary Care Unavailable JAYY, JUNSIK Attending Unavailable ASHANTI, KEREN G Primary Care Unavailable JAYY, JUNSIK Attending Unavailable ASHANTI, KEREN G Primary Care Unavailable JAYY, JUNSIK Attending Unavailable ASHANTI, KEREN G Primary Care Unavailable SELF Referring Unavailable JAYY, JUNSIK Attending Unavailable PAEZ, DANIEL Primary Care Unavailable JAYY, JUNSIK Attending Unavailable ASHANTI, KEREN G Primary Care Unavailable JAYY, JUNSIK Attending Unavailable SELF Referring Unavailable ASHANTI, KEREN G Primary Care Unavailable JAYY, JUNSIK Attending Unavailable PAZE, DANIEL Primary Care Unavailable JAYY, JUNSIK Attending Unavailable ASHANTI, KEREN G Primary Care Unavailable JAYY, JUNSIK Attending Unavailable ASHANTI, KEREN G Primary Care Unavailable ASHANTI, KEREN G Primary Care Unavailable JAYY, JUNSIK Attending Unavailable JAYY, JUNSIK Attending Unavailable ASHANTI, KEREN G Primary Care Unavailable JAYY, JUNSIK Attending Unavailable PAEZ, DANIEL Primary Care Unavailable JAYY, JUNSIK Attending Unavailable PAEZ, DANIEL Primary Care Unavailable JAYY, JUNSIK Attending Unavailable PAEZ, DANIEL Primary Care Unavailable PAEZ, DANIEL Referring Unavailable ASHANTI, KEREN G Primary Care Unavailable JAYY, JUNSIK Attending Unavailable Aixa Ramirez MD Unavailable NATHAN MADRIGAL Attending Unavailable PAEZ, DANIEL Referring Unavailable DAJA GOMEZ M Attending Unavailable PAEZ, DANIEL Referring Unavailable JASON, DAJA M Attending Unavailable PAEZ, DANIEL Referring Unavailable JASON, DAJA M Attending Unavailable PAEZ, DANIEL Referring Unavailable JASON, DAJA M Attending Unavailable PAEZ, DANIEL Referring Unavailable DAJA GOMEZ M Attending Unavailable PAEZ, DANIEL Referring Unavailable DAJA GOMEZ M Attending Unavailable PAEZ, DANIEL Referring Unavailable HALLGREN, NATHAN Lucio Attending Unavailable PAEZ, DANIEL Referring Unavailable DAJA GOMEZ Attending Unavailable PAEZ, DANIEL Referring Unavailable HALLGREN, NATHAN Lucio Attending Unavailable PAEZ, DANIEL Referring Unavailable DAJA GOMEZ Attending Unavailable PAEZ, DANIEL Referring Unavailable DAJA GOMEZ Attending Unavailable PAEZ, DANIEL Referring Unavailable PAEZ, DANIEL Primary Care Unavailable DAJA GOMEZ Attending Unavailable PAEZ, DANIEL Referring Unavailable PAEZ, DANIEL Primary Care Unavailable HALLGREN, NATHAN Lucio Attending Unavailable PAEZ, DANIEL Referring Unavailable PAEZ, DANIEL Primary Care Unavailable HALLGREN, NATHAN Lucio Attending Unavailable PAEZ, DANIEL Referring Unavailable PAEZ, DANIEL Primary Care Unavailable DAJA GOMEZ Attending Unavailable PAEZ, DANIEL Referring Unavailable PAEZ, DANIEL Primary Care Unavailable DAJA GOMEZ Attending Unavailable PAEZ, DANIEL Referring Unavailable PAEZ, DANIEL Primary Care Unavailable HALLGREN, NATHAN Lucio Attending Unavailable PAEZ, DANIEL Referring Unavailable PAEZ, DANIEL Primary Care Unavailable HALLGREN, NATHAN Lucio Attending Unavailable PAEZ, DANIEL Referring Unavailable PAEZ, DANIEL Primary Care Unavailable DAJA GOMEZ Attending Unavailable PAEZ, DANIEL Referring Unavailable PAEZ, DANIEL Primary Care Unavailable HALLGREN, NATHAN Lucio Attending Unavailable PAEZ, DANIEL Referring Unavailable PAEZ, DANIEL Primary Care Unavailable HALLGREN, NATHAN Lucio Attending Unavailable PAEZ, DANIEL Referring Unavailable ASHANTI, KEREN G Primary Care Unavailable DAJA GOMEZ Attending Unavailable PAEZ, DANIEL Referring Unavailable ASHANTI, KEREN G Primary Care Unavailable HALLGREN, NATHAN Lucio Attending Unavailable PAEZ, DANIEL Referring Unavailable ASHANTI, KEREN G Primary Care Unavailable HALLGREN, NATHAN Lucio Attending Unavailable PAEZ, DANIEL Referring Unavailable ASHANTI, KEREN G Primary Care Unavailable DAJA GOMEZ Attending Unavailable PAEZ, DANIEL Referring Unavailable ASHANTI, KEREN G Primary Care Unavailable DAJA GOMEZ Attending Unavailable PAEZ, DANIEL Referring Unavailable ASHANTI, KEREN G Primary Care Unavailable HALLGREN, NATHAN Lucio Attending Unavailable PAEZ, DANIEL Referring Unavailable ASHANTI, KEREN G Primary Care Unavailable GOMEZ, DAJA M Attending Unavailable PAZE, DANIEL Referring Unavailable ASHATNI, KEREN G Primary Care Unavailable JAYY, JUNSIK Referring Unavailable ASHANTI, KEREN G Primary Care Unavailable JASON, DAJA M Attending Unavailable PAEZ, DANIEL Referring Unavailable ASHANTI, KEREN G Primary Care Unavailable DAJA GOMEZ M Attending Unavailable PAEZ, DANIEL Referring Unavailable ASHANTI, KEREN G Primary Care Unavailable HALLGREN, NATHAN M Attending Unavailable PAEZ, DANIEL Referring Unavailable ASHANTI, KEREN G Primary Care Unavailable JASON, DAJA M Attending Unavailable PAEZ, DANIEL Referring Unavailable ASHANTI, KEREN G Primary Care Unavailable HALLGREN, NATHAN M Attending Unavailable PAEZ, DANIEL Referring Unavailable ASHANTI, KEREN G Primary Care Unavailable DAJA GOMEZ M Attending Unavailable PAEZ, DANIEL Referring Unavailable ASHANTI, KEREN G Primary Care Unavailable HALLGREN, NATHAN M Attending Unavailable PAEZ, DANIEL Referring Unavailable ASHANTI, KEREN G Primary Care Unavailable HALLGREN, NATHAN M Attending Unavailable PAEZ, DANIEL Referring Unavailable ASHANTI, KEREN G Primary Care Unavailable HALLGREN, NATHAN M Attending Unavailable PAEZ, DANIEL Referring Unavailable ASHANTI, KEREN G Primary Care Unavailable HALLGREN, NATHAN M Attending Unavailable PAEZ, DANIEL Referring Unavailable ASHANTI, KEREN G Primary Care Unavailable DAJA GOMEZ Attending Unavailable PAEZ, DANIEL Referring Unavailable ASHANTI, KEREN G Primary Care Unavailable DAJA GOMEZ M Attending Unavailable PAEZ, DANIEL Referring Unavailable ASHANTI, KEREN G Primary Care Unavailable DAJA GOMEZ M Attending Unavailable PAEZ, DANIEL Referring Unavailable ASHANTI, KEREN G Primary Care Unavailable HALLGREN, NATHAN M Attending Unavailable PAEZ, DANIEL Referring Unavailable ASHANTI, KEREN G Primary Care Unavailable DAJA GOMEZ M Attending Unavailable PAEZ, DANIEL Referring Unavailable ASHANTI, KEREN G Primary Care Unavailable DAJA GOMEZ M Attending Unavailable PAEZ, DANIEL Referring Unavailable ASHANTI, KEREN G Primary Care Unavailable DAJA GOMEZ M Attending Unavailable PAEZ, DANIEL Referring Unavailable ASHANTI, KEREN G Primary Care Unavailable DAJA GOMEZ M Attending Unavailable PAEZ, DANIEL Referring Unavailable ASHANTI, KEREN G Primary Care Unavailable DAJA GOMEZ Attending Unavailable PAEZ, DANIEL Referring Unavailable ASHANTI, KEREN G Primary Care Unavailable DAJA GOMEZ Attending Unavailable PAEZ, DANIEL Referring Unavailable ASHANTI, KEREN G Primary Care Unavailable NATHAN MADRIGAL Attending Unavailable PAEZ, DANIEL Referring Unavailable ASHANTI, KEREN G Primary Care Unavailable NICOGRENNATHAN Attending Unavailable PAEZ, DANIEL Referring Unavailable ASHANTI, KEREN G Primary Care Unavailable DAJA GOMEZ Attending Unavailable PAEZ, DANIEL Referring Unavailable ASHANTI, KEREN G Primary Care Unavailable DAJA GOMEZ Attending Unavailable PAEZ, DANIEL Referring Unavailable ASHANTI, KEREN G Primary Care Unavailable DAJA GOMEZ Attending Unavailable PAEZ, DANIEL Referring Unavailable ASHANTI, KEREN G Primary Care Unavailable DAJA GOMEZ Attending Unavailable PAEZ, DANIEL Referring Unavailable ASHANTI, KEREN G Primary Care Unavailable DAJA GOMEZ Attending Unavailable PAEZ, DANIEL Referring Unavailable ASHANTI, KEREN G Primary Care Unavailable ASHANTI, KEREN G Primary Care Unavailable [facility]AN PRIETO [facility] JO[facility] PRIETO Referring Unavailable ASHANTI, KEREN G Primary Care Unavailable PAEZ, DANIEL Referring Unavailable ROCIO ALEJANDRA Attending Unavailable PAEZ, DANIEL Referring Unavailable PAEZ, DANIEL Primary Care Unavailable MATTHEW GALLEGOS Attending Unavailable PAEZ, DANIEL Primary Care Unavailable JOAN PRIETO Attending Unavailable JOAN PRIETO Referring Unavailable ASHANTI, KEREN G Primary Care Unavailable JOAN PRIETO Referring Unavailable ASHANTI, KEREN G Primary Care Unavailable ASHANTI, KEREN G Primary Care Unavailable ASHANTI, KEREN G Primary Care Unavailable JOAN PRIETO Referring Unavailable ASHANTI, KEREN G Primary Care Unavailable CECI PRIETOCA M Referring Unavailable ASHANTI, KEREN G Primary Care Unavailable ANTONIETTA ALCARAZ Attending Unavailable ASHANTI, KEREN G Primary Care Unavailable JOAN PRIETO Referring Unavailable JOAN PRIETO Referring Unavailable VANESSA BEAL Attending Unavailable ASHANTI, KEREN G Primary Care Unavailable JOAN PRIETO Referring Unavailable ASHANTI, KEREN G Primary Care Unavailable JOAN PRIETO Referring Unavailable ASHANTI, KEREN G Primary Care Unavailable ASHANTI, KEREN G Primary Care Unavailable ZALE, ANTONIETTA Referring Unavailable ASHANTI, KEREN G Primary Care Unavailable BENTON SILVA Attending Unavailable ASHANTI, KEREN G Primary Care Unavailable AIXA RAMIREZ Attending Unavailable ASHANTI, KEREN G Primary Care Unavailable ASHANTI, KEREN G Primary Care Unavailable ASHANTI, KEREN G Primary Care Unavailable LIA HOPE Attending Unavailable JOAN PRIETO Referring Unavailable LIA HOPE Attending Unavailable ASHANTI, KEREN G Primary Care Unavailable MING PETERSON Attending Unavailable ZALE, ANTONIETTA Referring Unavailable ASHANTI, KEREN G Primary Care Unavailable Ashanti ISAAC, Keren Primary Care Provider [phone] Shane BOAT RENTAL CLERK-C, Chela Naidu Attending Provider Unava ilable Shane BOAT RENTAL CLERK-C, Chela Naidu Referring Provider Unava ilable Ashanti, Keren Primary Care Unavailable Shane BOAT RENTAL CLERK, Chela Naidu Attending Unavailabl e Shane BOAT RENTAL CLERK, Chela Naidu Referring Unavailabl e Orient, Keren Primary Care Unavailable Shane BOAT RENTAL CLERK, Chela Naidu Referring Unavailabl e Shane BOAT RENTAL CLERK, Chela K Attending Unavailabl e Orient, Keren Primary Care Unavailable Orient, Keren Referring Unavailable Medhat Guadarrama Attending Unavailable Orient, Keren Primary Care Unavailable Shane BOAT RENTAL CLERK, Chela Naidu Referring Unavailabl e Shane BOAT RENTAL CLERK, Chela Naidu Attending Unavailabl e Shane BOAT RENTAL CLERK, Chela K Attending Unavailabl e Shane BOAT RENTAL CLERK, Chela K Referring Unavailabl e Ashanti, Keren Primary Care Unavailable Shane BOAT RENTAL CLERK, Chela Naidu Attending Unavailabl e Shane BOAT RENTAL CLERK, Chela K Referring Unavailabl e Orient, Keren Primary Care Unavailable Shane BOAT RENTAL CLERK, Chela Naidu Attending Unavailabl e Shane BOAT RENTAL CLERK, Chela K Referring Unavailabl e Orient, Keren Primary Care Unavailable Orient, Keren Primary Care Unavailable MichChela butt NP Attending Unavailabl e Chela Lynn NP Referring Unavailabl e Allergies Allergy Classification Reported Allergen(s) Allergy Type Date of Onset Reaction(s) Facility Atovaquone / Proguanil (3 sources) Atovaquone / Proguanil Drug Allergy 6 [facility] Thimerosal (3 sources) Thimerosal Drug Allergy 9 [facility] Work Phone: (20 sources) Thimerosal; Translations: [THIMEROSAL] Drug Allergy 9 Itching [facility] Work Phone: Comment on above: Scratchy eyes (20 sources) Atovaquone / Proguanil; Translations: [ATOVAQUONE-PROG UANIL] Drug Allergy 6 [facility] (20 sources) Baclofen; Translations: [BACLOFEN] Drug Allergy 4 Rash, Intolerance [facility] (1 source) Thimerosal Drug Allergy 3 [facility] Repository Medications Current Medications Medication Drug Class(es) Dates Sig (Normalized) Sig (Original) amoxicillin 500 mg oral capsule (7 sources) Penicillin-class Antibacterial Start: 05-17-2024 take 2 capsules by mouth every twelve hours amoxicillin (AMOXIL) 500 mg capsule Take 2 capsules by mouth every 12 hours. 05/17/2024 Active Ascorbic Acid (2 sources) Vitamin C Ascorbic Acid (Vitamin C) Powder Take by mouth. 0 Active End: 07-18-2022 Ascorbic Acid powd Take by out. 0 07/18/2022 Discontinued (Discontinued by Patient) Comment on above: Take by mouth. B Complex Vitamins (VITAMIN-B COMPLEX PO) (1 source) B Complex Vitami ns (VITAMIN-B COMPLEX PO) take by mouth. 0 Active black cohosh extract 40 mg oral capsule (9 sources) Start: 08-31-2015 take 1 capsule by mouth twice daily Black Cohosh 40 mg cap Take 1 capsule by mouth two times a day. 08/31/2015 Active Start: 08-31-2015 take 1 capsule by [facility] twice daily Black Cohosh 40 MG Cap Indications: Hot flash, menopausal , Insomnia due to medical condition take 1 capsule by mouth 2 times daily. 60 capsule 6 08/31/2015 Active Start: 08-31-2015 End: 07-18-2022 Black Cohosh 40 mg cap Take 40 mg by mouth. 0 08/31/2015 07/18/2022 Discontinued (Course of therapy completed) Comment on above: Take 40 mg by mouth. black elderberry (11 sources) Start: 06-05-2022 black elderber ry Active PO June 04, 2022 11:00pm Start: 06-05-2022 black elderber ry Active PO June 05, 2022 12:00am Xbnglrt-Lwtrjdxbs-Obioeoq D (CALCIUM MAGNESIUM PO) (1 source) Calcium-Magnesiu m-Vitamin D (CALCIUM MAGNESIUM PO) take by mouth.. 0 Active CHLORELLA ALGAE, BULK, MISC (7 sources) Start : 11-03 take 6 tablets by mouth once daily CHLORELLA ALGAE, BULK, MISC Take 6 tablets by mouth once daily. 11/04/2023 Active cholecalciferol 0.05 mg oral capsule (2 sources) Vitamin D take 1 capsule by mouth once daily Cholecalciferol (VITAMIN D) 2000 UNITS Cap take 2,000 Units by mouth daily. 0 Active End: 07-18-2022 Cholecalciferol, Vitamin D3, 2,000 unit cap Take 2,000 Units by mouth. 0 07/18/2022 Discontinued (Course of therapy completed) Comment on above: Take 2,000 Units by mouth. Coenzyme Q10 (CO Q 10 PO) (1 source) Coenzyme Q10 (CO Q 10 PO) Take by mouth. 0 Active Coenzyme G92-Vgthmyq E (8 sources) Start: 06-05-2022 Coenzyme N61-Dtonlab E Active CAP PO June 04, 2022 11:00pm Start: 06-05-2022 Coenzyme Q10-V itamin E Active CAP PO June 05, 2022 12:00am Coenzyme U95-Cpksfju E 100-100 mg-unit capsule (3 sources) Start: 06-05-2022 Coenzyme I01-Pwkvlxr E 100-100 mg-unit capsule Active NMA PO June 05, 2022 12:00am colesevelam hydrochloride 625 mg oral tablet (1 source) Bile Acid Sequestrant Start: 08-04-2020 take 2 tablets by mouth at bedtime Welchol 625 MG tablet Take 1,250 mg by mouth at bedtime. 0 08/04/2020 Active Collagen (19 sources) Start: 06-05-2023 COLLAGEN POWDE R Active 12 NMA PO June 05, 2023 10:47am Start: 06-05-2023 COLLAGEN POWDE R Active 12 G PO June 05, 2023 9:47am Start: 06-05-2023 COLLAGEN POWDE R Active 12 G PO June 05, 2023 10:47am Start: 06-05-2022 End: 06-05-2023 COLLAGEN POWDER Discontinued PO June 04, 2022 11:00pm June 05, 2023 9:49am Start: 06-05-2022 End: 06-05-2023 COLLAGEN POWDER Discontinued PO June 05, 2022 12:00am June 05, 2023 10:49am Start: 06-05-2022 COLLAGEN POWDE R Active PO June 04, 2022 11:00pm Start: 06-05-2022 COLLAGEN POWDE R Active PO June 05, 2022 12:00am D-Ribose Powder (1 source) Start: 06-16-2015 take 5000 mg by mout h three times daily at mealtime D-Ribose Powder Indications: Muscle weakness , Muscle cramps , Other fatigue take 5,000 mg by mouth 3 times daily with meals. 1 Bottle 3 06/16/2015 Active DHA (11 sources) Start: 06-05-2022 DHA Active PO June 04, 2022 11:00pm Start: 06-05-2022 DHA Active PO June 05, 2022 12:00am EGCG Green Tea Extract (11 sources) Start: 06-05-2022 EGCG Green Tea Extract Active PO June 04, 2022 11:00pm Start: 06-05-2022 EGCG Green Tea Extract Active PO June 05, 2022 12:00am 84 hr estradiol 0.91735 mg/hr transdermal system (8 sources) Estrogen Start: 05-19-2024 apply 1 dose transdermal route two times weekly CIERA 0.075 mg/24 hr patch Apply 1 Patch as directed two times a week. 05/19/2024 Active Start: 04-22-2018 End: 07-18-2022 apply 1 dose transdermal route two times weekly Estradiol 0.0375 mg/24 hr Apply 1 Patch as directed twice a week. 8 Patch 2 04/22/2018 07/18/2022 Discontinued (Course of therapy completed) Comment on above: Apply 1 Patch as dir ected twice a week. [facility] Sleepytime Salve (11 sources) Start: 06-05-2022 [facility] Sleepytime Salve Active TOPICAL June 04, 2022 11:00pm Start: 06-05-2022 [facility] Sleepytime Salve Active TOPICAL June 05, 2022 12:00am Fish Oil-[place]-3 Fatty Acids 300-1,000 mg cap (20 sources) Start: 05-05-2015 Fish Oil-[place] -3 Fatty Acids 300-1,000 mg cap Take by mouth. 05/05/2015 Active Start: 05-05-2015 Fish Oil-[place] -3 Fatty Acids 300-1,000 mg cap Take by mouth. 0 05/05/2015 Active Comment on above: Take by mouth. fluconazole 150 mg oral tablet (17 sources) Azole Antifungal Start: 09-14-2023 End: 10-14-2023 fluconazole (DIFLUCAN) 150 mg tablet Indications: Facial rash Take 1 tablet by mouth two times a week. Can take up to 2 pills week one and two then one pill a week until done. 8 tablet 1 09/14/2023 10/14/2023 Active Start: 08-15-2018 End: 06-05-2022 Fluconazole 100 MG tablet Di scontinued 100 mg PO THFRSA August 15, 2018 1:00am June 05, 2022 3:06pm Start: 12-21-2017 End: 07-18-2022 fluconazole (DIFLUCAN) 200 m g tablet Comment on above: Take 1 tablet by nikia th two times a week. Can take up to 2 pills week one and two then one pill a week until done. furosemide 20 mg oral tablet (7 sources) Loop Diuretic Start: 05-07-2024 take 1 tablet by mouth every twelve hours furosemide (LASIX) 20 mg tablet Take 1 tablet by mouth every 12 hours. 05/07/2024 Active glucomannan 500 mg oral tablet (8 sources) Start: 06-05-2023 take 1 capsule by mouth once daily Glucomannan 500 mg capsule Active 1150 mg PO DAILY June 05, 2023 12:00am Start: 06-05-2023 take 1150 mg by mout h once daily Glucomannan Active 1150 MG PO DAILY June 04, 2023 11:00pm Start: 06-05-2023 take 1150 mg by mout h once daily Glucomannan Active 1150 MG PO DAILY June 05, 2023 12:00am botswanan knotweed (5 sources) Start: 06-05-2023 [place] knotw eed Active 1 CAP PO June 04, 2023 11:00pm Start: 06-05-2023 [place] knotw eed Active 1 CAP PO June 05, 2023 12:00am [place] knotweed 1,155 mg (3 sources) Start: 06-05-2023 [place] knotweed 1,155 mg Active 1 NMA PO June 05, 2023 12:00am Ketoprofen (1 source) Nonsteroidal Anti-inflammatory Drug Ketoprofen 10 % Cream Apply topically. Baclofen compounded cream for knees. 0 Active Lactobacillus Combination No.9 (Adult 50 Plus Probiotic) 4 billion cell capsule (11 sources) Start: 06-05-2022 take 4 capsules by mouth once daily Lactobacillus Combination No.9 (Adult 50 Plus Probiotic) 4 billion cell capsule Active 4000 NMA PO DAILY June 05, 2022 12:00am administer with a meal Start: 06-05-2022 take 4 capsules by m outh once daily Lactobacillus Combination No.9 (Adult 50 Plus Probiotic) 4 billion cell capsule Active 4000 MMU CELLS PO DAILY June 04, 2022 11:00pm administer with a meal Start: 06-05-2022 take 4 capsules by m outh once daily Lactobacillus Combination No.9 (Adult 50 Plus Probiotic) 4 billion cell capsule Active 4000 MMU CELLS PO DAILY June 05, 2022 12:00am administer with a meal levOCARNitine 500 mg oral tablet (15 sources) Carnitine Analog Start: 06-05-2023 take 1 tablet by mouth twice daily at mealtime Levocarnitine (L-Carnitine) 500 mg tablet Active 500 mg PO TWICE A DAY June 05, 2023 12:00am must administer with a meal/food levothyroxine sodium 0.112 mg oral tablet (20 sources) l-Thyroxine Start: 10-19-2023 take 1 tablet by mouth once daily Levothyroxine 112 mcg tablet Active 112 ug PO DAILY 90 January 08, 2024 12:00am Start: 10-18-2023 End: 01-08-2024 take 1 capsule by mouth once daily Levothyroxine 112 mcg capsule Discontinued 112 ug PO DAILY October 18, 2023 1:00am January 08, 2024 11:34am Start: 06-12-2023 End: 10-18-2023 take 1 tablet by mouth once daily Levothyroxine 88 mcg tablet Discontinued 88 ug PO DAILY 90 3 June 12, 2023 12:00am October 18, 2023 8:21am Magnesium (20 sources) take 1 tablet by nikia th once daily Magnesium 200 mg tab Take 1 tablet by mouth once daily. Active take 1 tablet by mouth once daryl y Magnesium 200 mg tab Take 1 tablet by mouth once daily. 0 Active magnesium oxide 200 mg oral tablet (13 sources) Start: 06-05-2023 take 200 mg by mouth once daily Magnesium Oxide Active 200 MG PO DAILY June 05, 2023 10:46am Start: 06-05-2022 End: 06-05-2023 Magnesium Oxide Discontinued MG PO June 04, 2022 11:00pm June 05, 2023 9:49am Start: 06-05-2022 End: 06-05-2023 Magnesium Oxide Discontinued MG PO June 05, 2022 12:00am June 05, 2023 10:49am Start: 06-05-2022 Magnesium Oxid e Active MG PO June 04, 2022 11:00pm Start: 06-05-2022 Magnesium Oxid e Active MG PO June 05, 2022 12:00am magnesium oxide 200 mg magnesium chew (7 sources) Start: 02-01-2023 take 200 mg by mouth once daily magnesium oxide 200 mg magnesium chew Take 200 mg by mouth once daily. magnesium chew 02/01/2023 Active Magnesium Oxide 240 mg magnesium powder in packet (6 sources) Start: 06-05-2023 take 200 mg by mouth once daily Magnesium Oxide 240 mg magnesium powder in packet Active 200 mg PO DAILY June 05, 2023 10:46am Start: 06-05-2022 End: 06-05-2023 Magnesium Oxide 240 mg magne sium powder in packet Discontinued mg PO June 05, 2022 12:00am June 05, 2023 10:49am Meriva (11 sources) Start: 06-05-2022 Meriva Active PO June 04, 2022 11:00pm Start: 06-05-2022 Meriva Active PO June 05, 2022 12:00am Meriva-SR (Monae) decrease inflammation/pain/gut healing (20 sources) Start: 07-23-2017 Meriva-SR (Monae) decrease inflammation/pain/gut healing Take 1-2 capsules two times daily 0 07/23/2017 Active Comment on above: Take 1-2 capsules tw o times daily METAMUCIL FIBER PO (1 source) METAMUCIL FIBER PO Take by mouth. 0 Active METHYLENE BLUE, BULK-SOLID, MISC (7 sources) METHYLENE BLUE, BULK-SOLID, MISC 1 capsule two times a day. Active nystatin 930399 unt oral tablet (20 sources) Polyene Antifungal Start: 09-28-2023 take 2 tablets by mouth three times daily at mealtime nystatin (MYCOSTATIN, NILSTAT) 500,000 unit tab Indications: Candidal enteritis Take 2 tablets by mouth three times a day with meals. 180 tablet 1 09/28/2023 Active Start: 08-13-2023 take 2 tablets by mo uth three times daily at mealtime nystatin (MYCOSTATIN, NILSTAT) 500,000 unit tab Indications: Candidal enteritis Take 2 tablets by mouth three times a day with meals. 180 tablet 1 08/13/2023 Active Start: 06-12-2023 End: 08-11-2023 take 2 tablets by mouth three times daily at mealtime nystatin (MYCOSTATIN, NILSTAT) 500,000 unit tab Indications: Candidal enteritis Take 2 tablets by mouth three times a day with meals. 180 tablet 1 06/12/2023 08/11/2023 Discontinued Start: 06-05-2023 take [id number] [IU] by mouth three times daily Nystatin Active [id number] UNIT PO THREE TIMES A DAY June 05, 2023 12:00am Start: 04-02-2023 End: 06-10-2023 take 2 tablets by mouth three times daily at mealtime nystatin (MYCOSTATIN, NILSTAT) 500,000 unit tab Indications: Candidal enteritis Take 2 tablets by mouth three times daily with meals. 180 tablet 1 04/02/2023 06/10/2023 Discontinued Start: 01-24-2023 End: 03-30-2023 take 2 tablets by mouth three times daily at mealtime nystatin (MYCOSTATIN, NILSTAT) 500,000 unit tab Indications: Candidal enteritis Take 2 tablets by mouth three times daily with meals. 180 tablet 1 01/24/2023 03/30/2023 Discontinued Start: 11-13-2022 End: 11-13-2022 take 2 tablets by mouth three times daily at mealtime nystatin (MYCOSTATIN, NILSTAT) 500,000 unit tab Indications: Candidal enteritis Take 2 tablets by mouth three times daily with meals. 180 tablet 1 11/13/2022 Active Comment on above: Take 2 tablets by mo uth three times daily with meals. Take 2 tablets by mo uth three times a day with meals. Nystatin 1 million unit capsule (3 sources) Start: 06-05-2023 take 1 capsule by mouth three times daily Nystatin 1 million unit capsule Active [id number] U PO THREE TIMES A DAY June 05, 2023 12:00am [place]-3 Fatty Acids (FISH OIL) 1360 MG Cap (1 source) Start: 05-05-2015 take 2 capsules by mouth twice daily at mealtime [place]-3 Fatty Acids (FISH OIL) 1360 MG Cap Indications: Pain, joint, multiple sites take 2 capsules by mouth 2 times daily with meals. 120 capsule 11 05/05/2015 Active ORGANIC GREENS POWDER (11 sources) Start: 06-05-2022 ORGANIC GREENS POWDER Active PO June 04, 2022 11:00pm Start: 06-05-2022 ORGANIC GREENS POWDER Active PO June 05, 2022 12:00am AUGUSTO D ARCO ORAL (7 sources) take 60 mL by mouth once daily AUGUSTO D ARCO ORAL Take 60 mL by mouth once daily. tea Active polyethylene glycol 3350 [id number] mg / potassium chloride 2970 mg / sodium bicarbonate 6740 mg / sodium chloride 5860 mg / sodium sulfate 75774 mg powder for oral solution (1 source) Osmotic Laxative Start: 2 peg 3350 w/electrolytes oral solution Drink 1 glassful every 15 minutes until rectal effluent is clear. 4000 mL 0 11/10/2021 Active Probiotic Product (PROBIOTIC-10 PO) (1 source) Probiotic Produc t (PROBIOTIC-10 PO) Take by mouth. 0 Active Procaine (7 sources) procaine HCl (PROCAINE, BULK, MISC) one time a week. IV infusion Active progesterone 200 mg oral capsule (8 sources) Progesterone Start: 4 take 1 capsule by mouth once daily at bedtime progesterone micronized (PROMETRIUM) 200 mg capsule Take 200 mg by mouth daily at bedtime. 06/08/2024 Active Start: 04-22-2018 End: 07-18-2022 take 1 capsule by mouth once daily at bedtime progesterone micronized (PROMETRIUM) 100 mg capsule Take 1 capsule by mouth daily at bedtime. 30 capsule 2 04/22/2018 07/18/2022 Discontinued (Course of therapy completed) Comment on above: Take 1 capsule by mo [facility] daily at bedtime. Proteins (11 sources) Start: 06-05-2022 Protein powder Active NMA PO June 05, 2022 12:00am Start: 06-05-2022 Protein Active EACH PO June 04, 2022 11:00pm Start: 06-05-2022 Protein Active EACH PO June 05, 2022 12:00am psyllium 6000 mg powder for oral suspension (11 sources) Start: 06-05-2022 Psyllium Husk 6 gram/6 gram powder Active 1 tbsp PO DAILY June 05, 2022 12:00am mix into at least 8 oz of water or juice before administering Start: 06-05-2022 take 8 [oz_av] by mo ut once daily Psyllium Husk Active 1 tbsp PO DAILY June 05, 2022 12:00am mix into at least 8 oz of water or juice before administering ubidecarenone 100 mg / vitamin e 5 unt oral capsule (1 source) Start: 08-31-2015 Coenzyme Q10 1 00 MG Cap Indications: Muscle weakness , Muscle cramps take 2 capsules by mouth 2 times daily. 120 capsule 11 08/31/2015 Active Vitamin B Complex (6 sources) Start: 06-05-2023 take 1 capsule by mouth once daily Vitamin B Complex Active 1 CAP PO DAILY June 04, 2023 11:00pm Start: 06-05-2023 take 1 capsule by [facility] once daily Vitamin B Complex Active 1 CAP PO DAILY June 05, 2023 12:00am End: 07-18-2022 vitamin B complex (B COMPLEX VITAMINS ORAL) Take by mouth. 0 07/18/2022 Discontinued (Discontinued by Patient) Comment on above: Take by mouth. Vitamin B Complex capsule (3 sources) Start: 06-05-2023 Vitamin B Complex capsule Active 1 NMA PO DAILY June 05, 2023 12:00am VITAMIN B COMPLEX ORAL (7 sources) Start: 06-05-2023 take 1 capsule by mouth once daily VITAMIN B COMPLEX ORAL Take 1 capsule by mouth once daily. 06/05/2023 Active Wana Sour Gummies (11 sources) Start: 06-05-2022 Wana Sour Gummies Active PO June 04, 2022 11:00pm Start: 06-05-2022 Wana Sour Piyush ies Active PO June 05, 2022 12:00am Completed/Discontinued Medications Medication Drug Class(es) Dates Sig (Normalized) Sig (Original) [id number] 200 actuat albuterol 0.09 mg/actuat metered dose inhaler (1 source) beta2-Adrenergic Agonist Start: 09-04-2018 End: 07-18-2022 take 2 puff(s) by inhalation every four hours as needed albuterol HFA (PROVENTIL HFA, VENTOLIN HFA) 90 mcg/actuation inhaler Inhale 2 Puffs as instructed every 4 hours as needed. 1 Inhaler 0 09/04/2018 07/18/2022 Discontinued (Discontinued by Patient) Comment on above: Inhale 2 Puffs as in structed every 4 hours as needed. alendronic acid 70 mg oral tablet (9 sources) Bisphosphonate Start: 09-05-2022 End: 06-05-2023 take 1 tablet by mouth every week Alendronate (Fosamax) 70 mg tablet Discontinued 70 mg PO EVERY WEEK 12 0 September 05, 2022 1:00am June 05, 2023 10:48am amantadine hydrochloride 100 mg oral tablet (9 sources) Influenza A M2 Protein Inhibitor Start: 06-05-2023 End: 12-31-2023 amantadine HCl (SYMMETREL) 100 mg tablet Take by mouth. 0 06/05/2023 12/31/2023 Discontinued Start: 06-05-2023 take 2 tablets by mo uth twice daily in the morning, then take 1 tablet by mouth at lunch Amantadine Hcl 100 mg tablet Active 100 mg PO TWICE A DAY June 05, 2023 12:00am 2 tablets in the morning, one tablet at lunch; total of 300mg daily. amoxicillin 875 mg / clavulanate 125 mg oral tablet (1 source) Penicillin-class Antibacterial Start: 01-18-2018 End: 07-18-2022 take 2 tablets by mouth twice daily amoxicillin-clavulanic acid (AUGMENTIN) 875-125 mg per tablet Take 2 tablets by mouth twice daily. 1 01/18/2018 07/18/2022 Discontinued (Course of therapy completed) Comment on above: Take 2 tablets by mouth twice daily. Amphotericin B Liposome (8 sources) Start: 06-05-2022 End: 06-05-2023 Amphotericin B Liposome Discontinued 500 MG .Route June 04, 2022 11:00pm June 05, 2023 9:49am 500 mg Start: 06-05-2022 End: 06-05-2023 Amphotericin B Liposome Disc ontinued 500 MG .Route June 05, 2022 12:00am June 05, 2023 10:49am 500 mg Start: 06-05-2022 Amphotericin B Liposome Active 500 MG .Route June 04, 2022 11:00pm 500 mg Start: 06-05-2022 Amphotericin B Liposome Active 500 MG .Route June 05, 2022 12:00am 500 mg Amphotericin B Liposome 50 mg suspension for reconstitution (3 sources) Start: 06-05-2022 End: 06-05-2023 Amphotericin B Liposome 50 mg suspension for reconstitution Discontinued 500 mg .Route June 05, 2022 12:00am June 05, 2023 10:49am 500 mg baclofen 10 mg oral tablet (20 sources) gamma-Aminobutyric Acid-ergic Agonist Start: 01-09-2024 End: 05-13-2024 take 0.5 tablet by mouth three times daily, then take 1 tablet by mouth three times daily baclofen 10 mg tablet Indications: Spasticity Take 0.5 tablets by mouth three times a day for 14 days, THEN 1 tablet three times a day. 291 tablet 01/30/2024 03/17/2024 Discontinued (Allergic response) BEGs nasal spray (1 source) Start: 04-22-2018 End: 07-18-2022 BEGs nasal spray Bactroban(Mupirocin ) 0.2% Edetate Disodium (EDTA) 0.1%, Gentamicin 0.25% Adults: Two sprays to each nostril 2 times a day Blow nose then breathe and spray each nostril. If ear ringing occurs - stop nasal spray FAXED to [facility] pharmacy 1 Each 1 04/22/2018 07/18/2022 Discontinued (Course of therapy completed) Comment on above: Bactroban(Mupirocin) 0.2% Edetate Disodium (EDTA) 0.1%, Gentamicin 0.25% Adults: Two sprays to each nostril 2 times a day Blow nose then breathe and spray each nostril. If ear ringing occurs - stop nasal spray FAXED to [facility] pharmacy benzonatate 100 mg oral capsule (1 source) Non-narcotic Antitussive Start: 09-04-2018 End: 07-18-2022 take 1 capsule by mouth every eight hours as needed benzonatate (TESSALON PERLES) 100 mg capsule Take 1 capsule by mouth three times daily as needed for Cough. 21 capsule 0 09/04/2018 07/18/2022 Discontinued (Course of therapy completed) Comment on above: Take 1 capsule by mo uth three times daily as needed for Cough. Betaine HCL Pepsin (Pure Encapsulations) (1 source) Start: 04-19-2017 End: 07-18-2022 take 1 capsule by mouth at mealtime Betaine HCL Pepsin (Pure Encapsulations) Take 1 capsule by mouth w MEALS. 0 04/19/2017 07/18/2022 Discontinued (Course of therapy completed) Comment on above: Take 1 capsule by mo uth w MEALS. BiotaGen capsules (Klaire/Prothera) prebiotic (feeds probiotic) (1 source) Start: 04-19-2017 End: 07-18-2022 BiotaGen capsules (Klaire/Prothera) prebiotic (feeds probiotic) 4 capsules once or twice daily - if bloating decrease dose 0 04/19/2017 07/18/2022 Discontinued (Course of therapy completed) Comment on above: 4 capsules once or t wice daily - if bloating decrease dose calcium ascorbate 500 mg oral tablet (11 sources) Start: 06-05-2022 End: 06-05-2023 take 1 tablet by mouth once daily Ascorbate Calcium (Vitamin C) 500 mg tablet Discontinued 500 mg PO DAILY June 05, 2022 12:00am June 05, 2023 10:48am Calcium Carbonate / vitamin D3 (1 source) End: 07-18-2022 calcium carbonate/vitamin D3 (VITAMIN D-3 ORAL) Take by mouth. 0 07/18/2022 Discontinued (Course of therapy completed) Comment on above: Take by mouth. CHASTE TREE ORAL (1 source) End: 07-18-2022 CHASTE TREE ORAL Take by mouth. 0 07/18/2022 Discontinued (Course of therapy completed) Comment on above: Take by mouth. ciprofloxacin 500 mg oral tablet (11 sources) Quinolone Antimicrobial Start: 10-29-2021 End: 06-05-2022 take 1 tablet by mouth twice daily Ciprofloxacin Hcl (Cipro) 500 mg tablet Discontinued 500 mg PO TWICE A DAY October 29, 2021 1:00am June 05, 2022 3:06pm clindamycin 150 mg oral capsule (2 sources) Lincosamide Antibacterial Start: 12-21-2017 End: 07-18-2022 clindamycin (CLEOCIN) 150 mg capsule Start: 12-21-2017 End: 07-18-2022 clindamycin (CLEOCIN) 300 mg capsule cyclobenzaprine hydrochloride 5 mg oral tablet (20 sources) Muscle Relaxant Start: 03-17-2024 End: 06-16-2024 take 1 tablet by mouth three times daily cyclobenzaprine (FLEXERIL) 5 mg tablet Indications: Spasticity Take 1 tablet by mouth three times a day. 90 tablet 2 03/17/2024 06/16/2024 Discontinued dextromethorphan hydrobromide 20 mg / quiNIDine sulfate 10 mg oral capsule (20 sources) Antiarrhythmic, Uncompetitive H-nlhqnz-T-[place]part[place] te Receptor Antagonist, Cytochrome P450 2D6 Inhibitor, Sigma-1 Agonist Start: 03-31-2024 End: 12-01-2024 take 1 capsule by mouth three times daily NUEDEXTA 20-10 mg capsule Indications: Primary lateral sclerosis (HCC) , Pseudobulbar affect Take 1 capsule by mouth three times a day. 90 capsule 5 03/31/2024 12/01/2024 Discontinued Start: 12-31-2023 End: 12-30-2024 take 1 capsule by mouth twice daily NUEDEXTA 20-10 mg capsule Indications: Primary lateral sclerosis (HCC) , Pseudobulbar affect Take 1 capsule by mouth two times a day. 60 capsule 11 12/02/2024 Active Start: 12-06-2023 End: 12-31-2023 take 1 capsule by mouth every six hours NUEDEXTA 20-10 mg capsule take 1 capsule by mouth every 6 hours while awake OR 1 CAPSULE TH... (REFER TO PRESCRIPTION NOTES). 0 12/06/2023 12/31/2023 Discontinued Start: 06-05-2023 take 0.5 tablet by m outh every twelve hours in the morning, then take 1 tablet by mouth at lunch Dextromethorphan-Quinidine (Nuedexta) 20-10 mg capsule Active 1 NMA PO Q12H June 05, 2023 12:00am Take 1/2 tablet in the am, one tablet at lunch. dwriietjcvDELYQ-cvbasn-vlqky amilcar (BMX 1:1:1) 1:1:1 liqd (1 source) Start: 12-25-2018 End: 07-18-2022 take 5 mL by mouth three times daily hbunmaliboQHAUL-zyhgsa-vpgacwghl (BMX 1:1:1) 1:1:1 liqd Take 5 mL by mouth three times daily. 1 Bottle 0 12/25/2018 07/18/2022 Discontinued (Course of therapy completed) Comment on above: Take 5 mL by mouth t hree times daily. doxycycline monohydrate 100 mg oral capsule (2 sources) [facility] carroll Start: 09-21-2017 End: 07-18-2022 doxycycline monohydrate (MON ODOX) 100 mg capsule Take 100 mg by mouth. 0 09/22/2017 07/18/2022 Discontinued (Course of therapy completed) Comment on above: Take 1 capsule by mo uth twice daily. Take at least 2 hrs away from probiotics. Avoid sunlight, do not lay flat for at least an hour. Take 100 mg by mouth . gro[place] Butterfly Effect (11 sources) Start: 06-05-2022 End: 06-05-2023 groWh[place] Butterfly Effect Discontinued PO June 04, 2022 11:00pm June 05, 2023 9:48am Start: 06-05-2022 End: 06-05-2023 gro[place] Butterfly Effect D iscontinued PO June 05, 2022 12:00am June 05, 2023 10:48am Start: 06-05-2022 groWh[place] Butt erfly Effect Active PO June 04, 2022 11:00pm Start: 06-05-2022 gro[place] Butt erfly Effect Active PO June 05, 2022 12:00am Hepato-Thera Forte (Klaire/Prothera) (1 source) Start: 12-18-2016 End: 07-18-2022 take 1 capsule by mouth three times daily Hepato-Thera Forte (Klaire/Prothera) Take 1 capsule by mouth three times daily. 0 12/18/2016 07/18/2022 Discontinued (Course of therapy completed) Comment on above: Take 1 capsule by mo [facility] three times daily. Itraconazole (20 sources) Azole Antifungal Start: 07-03-2023 End: 06-16-2024 take 1-2 spray(s) nasal route twice daily itraconazole 0.5 % (CPD) Indications: Allergic fungal sinusitis 1-2 sprays to each nostril twice daily 30 mL 2 07/03/2023 06/16/2024 Discontinued Start: 07-03-2023 take 1-2 spray(s) na grabiel route twice daily itraconazole 0.5 % (CPD) Indications: Allergic fungal sinusitis 1-2 sprays to each nostril twice daily 30 mL 2 07/03/2023 Active Start: 11-16-2022 End: 03-13-2023 itraconazole 0.5 % (CPD) Indications: Allergic fungal sinusitis 2 sprays to each nose twice per day for 14 days, then stop for two weeks, and then start for 2 weeks. 30 mL 2 11/16/2022 03/13/2023 Discontinued (Discontinued by Patient) Start: 11-16-2022 itraconazole 0 .5 % (CPD) Indications: Allergic fungal sinusitis 2 sprays to each nose twice per day for 14 days, then stop for two weeks, and then start for 2 weeks. 30 mL 2 11/16/2022 Active Start: 11-13-2022 End: 11-15-2022 itraconazole 0.5 % (CPD) Indications: Allergic fungal sinusitis 2 sprays to each nose twice per day for 14 days, then stop for two weeks, and then start for 2 weeks. 30 mL 2 11/13/2022 11/15/2022 Discontinued Start: 11-13-2022 itraconazole 0 .5 % (CPD) Indications: Allergic fungal sinusitis 2 sprays to each nose twice per day for 14 days, then stop for two weeks, and then start for 2 weeks. 30 mL 2 11/13/2022 Active Start: 11-13-2022 End: 11-13-2022 itraconazole 0.5 % (CPD) Indications: Allergic fungal sinusitis 2 sprays to each nose twice per day for 14 days, then stop for two weeks, and then start for 2 weeks. 30 mL 2 11/13/2022 11/13/2022 Discontinued Comment on above: 2 sprays to each nos e twice per day for 14 days, then stop for two weeks, and then start for 2 weeks. 1-2 sprays to each n ostril twice daily liothyronine sodium 0.005 mg oral tablet (20 sources) l-Triiodothyronin e Start: 05-14-2016 End: 07-04-2023 take 1 tablet by mouth once daily Liothyronine 5 mcg tablet Discontinued 5 ug PO DAILY 30 2022 9:06am February 20, 2023 7:48am Comment on above: Take 5 mcg by mouth. Take 1 tablet by nikia th once daily. Magnesium Citrate 150mg BID Stress, blood sugar, thyroid/hormones/adren als/sleep/energy/toxin s/muscles/constipation /asthma (2 sources) Start: 07-23-2017 End: 07-18-2022 Magnesium Citrate 150mg BID Stress, blood sugar, thyroid/hormones/adre nals/sleep/energy/tox ins/muscles/constipat ion/asthma Work up to 2-3 twice a day. - back off if loose stools 0 07/23/2017 07/18/2022 Discontinued (Course of therapy completed) Start: 02-26-2017 End: 07-18-2022 Magnesium Citrate 150mg BID Stress, blood sugar, thyroid/hormones/adrenals/sleep/energy/toxins/muscles/constipation/asthma Work up to 2-3 twice a day. - back off if loose stools 0 02/26/2017 07/18/2022 Discontinued (Course of therapy completed) Comment on above: Work up to 2-3 twice a day. - back off if loose stools Magnesium glycinate (1 source) Start: 09-06-19 End: 07-18-20 Magnesium Glycinate 120mg (BID) Work up to 2-3 twice a day. - back off if loose stools 0 09/06/2016 07/18/2022 Discontinued (Course of therapy completed) Comment on above: Work up to 2-3 twice a day. - back off if loose stools MEDICATION, NON-DATABASE (1 source) End: 07-18-20 MEDICATION, NON-DATABASE CBD Oil 10mg twice daily 0 07/18/2022 Discontinued (Course of therapy completed) Comment on above: CBD Oil 10mg twice d aily metroNIDAZOLE 500 mg oral tablet (11 sources) Nitroimidazole Antimicrobial Start: 10-29-19 End: 06-05-20 take 1 tablet by mouth three times daily Metronidazole 500 mg tablet Discontinued 500 mg PO THREE TIMES A DAY 30 0 October 29, 2021 1:00am June 05, 2022 3:06pm Microb-clear (11 sources) Start: 06-05-20 End: 06-05-20 Microb-clear Discontinued PO June 04, 2022 11:00pm June 05, 2023 9:48am Start: 06-05-2022 End: 06-05-2023 Microb-clear Discontinued PO June 05, 2022 12:00am June 05, 2023 10:48am Start: 06-05-2022 Microb-clear A ctive PO June 04, 2022 11:00pm Start: 06-05-2022 Microb-clear A ctive PO June 05, 2022 12:00am NAC 600mg (Pure Encapsulations) (1 source) Start: 04-19-2017 End: 07-18-2022 NAC 600mg (Pure Encapsulations) Take 1 capsule twice daily, between meals. 0 04/19/2017 07/18/2022 Discontinued (Course of therapy completed) Comment on above: Take 1 capsule twice daily, between meals. Nrf2 Activator (Xymogen) (1 source) Start: 07-23-2017 End: 07-18-2022 Nrf2 Activator (Xymogen) Take 4 capsules in the evening before bed. 0 07/23/2017 07/18/2022 Discontinued (Course of therapy completed) Comment on above: Take 4 capsules in t he evening before bed. Nystatin 50,000 Unit (atomized) nasal spray --> (Scottie Maynard will call you) (2 sources) Start: 12-25-2018 End: 07-18-2022 Nystatin 50,000 Unit (atomized) nasal spray --> (Scottie Maynard will call you) dissolve 1 cap (51512 units)/spray: use 2 sprays in each nostril twice daily 60 capsule 2 12/25/2018 07/18/2022 Discontinued (Course of therapy completed) Start: 04-22-2018 End: 07-18-2022 Nystatin 50,000 Unit (atomiz ed) nasal spray --> (Scottie Maynard will call you) dissolve 1 cap (50,000 units) in 3 ml and spray 1.5 ml in each nostril 2 times a day 60 capsule 2 04/22/2018 07/18/2022 Discontinued (Course of therapy completed) Comment on above: dissolve 1 cap (50,0 00 units) in 3 ml and spray 1.5 ml in each nostril 2 times a day dissolve 1 cap (2500 0 units)/spray: use 2 sprays in each nostril twice daily omeprazole 20 mg delayed release oral capsule (11 sources) Proton Pump Inhibitor Start: 08-15-20 End: 06-05-20 take 1 capsule by mouth once daily Omeprazole 20 MG capsule Discontinued 20 mg PO DAILY August 15, 2018 1:00am June 05, 2022 3:06pm One [place] (Pure Encapsulation) (1 source) Start: 09-06-19 End: 07-18-20 take 2 capsules by mouth once daily at mealtime One [place] (Pure Encapsulation) Take 2 capsules by mouth daily with food. 0 09/06/2016 07/18/2022 Discontinued (Course of therapy completed) Comment on above: Take 2 capsules by m outh daily with food. oseltamivir 75 mg oral capsule (1 source) Neuraminidase Inhibitor Start: 10-18-19 End: 07-18-20 take 1 capsule by mouth twice daily oseltamivir (TAMIFLU) 75 mg capsule TAKE ONE CAPSULE BY MOUTH TWICE DAILY FOR 5 DAYS 1 10/18/2017 07/18/2022 Discontinued (Course of therapy completed) Comment on above: TAKE ONE CAPSULE BY MOUTH TWICE DAILY FOR 5 DAYS perflutren lipid microspheres 1.3 mL in NaCl (PF) 0.9% 10 mL injection (DEFINITY) (3 sources) Start: 06-16-20 End: 06-23-20 perflutren lipid microspheres 1.3 mL in NaCl (PF) 0.9% 10 mL injection (DEFINITY) PS 100 - 120 ct. TID (Pure Encapsulations) (1 source) Start: 09-06-19 End: 07-18-20 PS 100 - 120 ct. TID (Pure Encapsulations) 3 capsules daily, in divided doses, with meals 0 09/06/2016 07/18/2022 Discontinued (Course of therapy completed) Comment on above: 3 capsules daily, in divided doses, with meals Querctin and Abbie ((600mg each) [employer]) (1 source) Start: 12-12-19 End: 07-18-20 Querctin and Abbie ((600mg each) [employer]) take three capsules daily with meals 0 12/11/2017 07/18/2022 Discontinued (Course of therapy completed) Comment on above: take three capsules daily with meals ribose, bulk, 100 % powd (1 source) Start: 06-16-20 End: 07-18-20 ribose, bulk, 100 % powd Take 5,000 mg by mouth. 0 06/16/2015 07/18/2022 Discontinued (Discontinued by Patient) Comment on above: Take 5,000 mg by nikia th. rifAMPin 300 mg oral capsule (20 sources) Rifamycin Antibacterial Start: 06-05-20 End: 06-05-20 take 1 capsule by mouth once daily Rifampin 300 mg capsule Discontinued 600 mg PO DAILY June 05, 2022 12:00am June 05, 2023 10:41am Start: 06-05-2022 End: 06-05-2023 take 600 mg by mouth once daily Rifampin Discontinued 600 MG PO DAILY June 05, 2022 12:00am June 05, 2023 10:41am Saccharomyces boulardii (1 source) Start: 11-02-2016 End: 07-18-2022 take 2 capsules by mouth once daily Saccharomyces Boulardii (Klaire/Prothera) Take 2 capsules by mouth once daily. 0 11/02/2016 07/18/2022 Discontinued (Discontinued by Patient) Comment on above: Take 2 capsules by m out once daily. Selenium (8 sources) Start: 06-05-2022 End: 06-05-2023 take 200 ug by mouth every other day Selenium Discontinued 200 MCG PO .QOD June 04, 2022 11:00pm June 05, 2023 9:48am Start: 06-05-2022 End: 06-05-2023 take 200 ug by mouth every other day Selenium Discontinued 200 MCG PO .QOD June 05, 2022 12:00am June 05, 2023 10:48am Start: 06-05-2022 take 200 ug by mouth every other day Selenium Active 200 MCG PO .QOD June 04, 2022 11:00pm Start: 06-05-2022 take 200 ug by mouth every other day Selenium Active 200 MCG PO .QOD June 05, 2022 12:00am Selenium 200 mcg capsule (3 sources) Start: 06-05-2022 End: 06-05-2023 take 1 capsule by mouth every other day Selenium 200 mcg capsule Discontinued 200 ug PO .QOD June 05, 2022 12:00am June 05, 2023 10:48am 125 ml sodium chloride 9 mg/ml prefilled syringe (3 sources) Start: 06-16-2024 End: 06-23-2024 sodium chloride 0.9 % (flush) 10 mL (BD POSIFLUSH) Stevia-Liquid Extract (Protocol for Life Balance) (1 source) Start: 09-21-2017 End: 07-18-2022 Stevia-Liquid Extract (Protocol for Life Balance) Take 1-4 drops as desired daily. 0 09/21/2017 07/18/2022 Discontinued (Discontinued by Patient) Comment on above: Take 1-4 drops as de sired daily. Succimer, Bulk, (DMSA, BULK,) 98 % powd (2 sources) Start: 04-19-2017 End: 07-18-2022 Succimer, Bulk, (DMSA, BULK,) 98 % powd Take 3 500mg tabs after First Morning Void. Then collect urine x 6 hours. 1.5 g 0 04/19/2017 07/18/2022 Discontinued (Course of therapy completed) Start: 02-26-2017 End: 07-18-2022 Succimer, Bulk, (DMSA, BULK, ) 98 % powd Take 3 500mg tabs after First Morning Void. Then collect urine x 6 hours. 1.5 g 0 02/26/2017 07/18/2022 Discontinued (Course of therapy completed) Comment on above: Take [address] First Morning Void. Then collect urine x 6 hours. sulfamethoxazole 800 mg / trimethoprim 160 mg oral tablet (1 source) Dihydrofolate Reductase Inhibitor Antibacterial, Sulfonamide Antimicrobial Start: End: take 1 tablet by mouth twice daily sulfamethoxazole-trim ethoprim (BACTRIM DS,SEPTRA DS) 800-160 mg per tablet Take 1 tablet by mouth twice daily. 20 tablet 0 04/19/2017 07/18/2022 Discontinued (Course of therapy completed) Comment on above: [facility] Sweetish Bitters Elixir 4 oz. (Concepcion Herbs) (1 source) Start: End: Sweetish Bitters Elixir 4 oz. (Concepcion Herbs) Add 60 drops to a small amount of water and take 15-20 minutes before meals 0 04/19/2017 07/18/2022 Discontinued (Course of therapy completed) Comment on above: Add 60 drops to a sm all amount of water and take 15-20 minutes before meals Ther-Biotic Detoxification Support (Klaire/Prothera) (1 source) Start: End: take 1 capsule by mouth once daily Ther-Biotic Detoxification Support (Klaire/Prothera) Take 1 capsule by mouth once daily. 0 12/18/2016 07/18/2022 Discontinued (Discontinued by Patient) Comment on above: Take 1 capsule by mo [facility] once daily. Ther-Biotic Factor 4 (Bifidobacterium Complex) ([place]laire/Prothera) probiotic (FRIDGE) (1 source) Start: End: take 1 capsule by mouth once daily Ther-Biotic Factor 4 (Bifidobacterium Complex) ([place]/Prothera) probiotic (FRIDGE) Take 1 capsule by mouth once daily. 0 04/19/2017 07/18/2022 Discontinued (Discontinued by Patient) Comment on above: Take 1 capsule by mo ut once daily. TherBiotic Complete 120 Ct[address] ([place]/Prothera) (20 sources) Start: take 1 capsule by mouth once daily TherBiotic Complete 120 Ct. ([place]/Prothera) Indications: Mold exposure Take 1 capsule by mouth once daily. 09/14/2023 Active Start: 09-14-2023 take 1 capsule by mo ut once daily TherBiotic Complete 120 Ct. ([place]/Prothera) Indications: Mold exposure Take 1 capsule by mouth once daily. 0 09/14/2023 Active Comment on above: Take 1 capsule by mo uth once daily. Thyroid (Pork) (5 sources) Start: 04-09-2023 End: 04-09-2023 take 65 mg by mouth once daily Thyroid (Pork) Discontinued 65 MG PO DAILY April 09, 2023 10:30am April 09, 2023 12:06pm Start: 04-09-2023 End: 04-09-2023 take 65 mg by mouth once daily Thyroid (Pork) Disconti nued 65 MG PO DAILY April 09, 2023 11:30am April 09, 2023 1:06pm Thyroid (Pork) ([place] Thyroid) 65 mg tablet (5 sources) Start: 02-22-2023 End: 04-09-2023 take 1 tablet by mouth once daily Thyroid (Pork) ([place] Thyroid) 65 mg tablet Discontinued 65 MG PO DAILY February 22, 2023 3:23pm April 09, 2023 10:31am Start: 02-22-2023 End: 04-09-2023 take 1 tablet by mouth once daily Thyroid (Pork) ([place] Thyroid) 65 mg tablet Discontinued 65 MG PO DAILY February 22, 2023 4:23pm April 09, 2023 11:31am thyroid ([place]) 60 mg oral tablet (20 sources) Start: 04-09-2023 End: 06-12-2023 take 1 tablet by mouth once daily Thyroid (Pork) ([place] Thyroid) 60 mg tablet Discontinued 60 mg PO DAILY 30 May 22, 2023 11:17am June 12, 2023 3:56pm Start: 02-22-2023 End: 04-09-2023 take 1 tablet by mouth once daily Thyroid (Pork) 65 mg tablet Discontinued 65 mg PO DAILY 30 0 April 09, 2023 11:30am April 09, 2023 1:06pm Start: 06-05-2022 End: 02-22-2023 take 1.5 tablets by mouth four times weekly, then take 1 tablet by mouth three times weekly Thyroid (Pork) ([place] Thyroid) 90 mg tablet Discontinued 90 mg PO DAILY 2022 9:07am February 22, 2023 4:23pm 1.5 dose 4 times per week. 1.0 dose 3 times per week. Start: 01-29-2018 End: 07-04-2023 take 1 tablet by mouth once daily Thyroid (Pork) ([place] Thyroid) 90 MG tablet Discontinued 135 mg PO DAILY August 15, 2018 1:00am June 05, 2022 3:07pm Start: 07-04-2016 End: 07-18-2022 take 1 tablet by mouth once daily in the morning Thyroid (NATURE-THROID) 97.5 MG Tab Indications: Acquired hypothyroidism take 1 tablet by mouth daily every morning.. 30 tablet 07/04/2016 Active Comment on above: TAKE ONE TABLET BY M OUTH ONCE DAILY 20 MINUTES BEFORE BREAKFAST Take 97.5 mg by mout h once daily. Take 97.5 mg by mout h. Take 1 tablet by nikia th once daily. 20 minutes before breakfast ubidecarenone 100 mg oral capsule (1 source) Start: 08-31-20 End: 07-18-20 coenzyme Q10 (COENZYME Q-10) 100 mg cap capsule Take 200 mg by mouth. 0 08/31/2015 07/18/2022 Discontinued (Course of therapy completed) Comment on above: Take 200 mg by mouth . UltraNutrient (Pure Encapsulations) 3BID (1 source) Start: 09-06-19 End: 07-18-20 UltraNutrient (Pure Encapsulations) 3BID 3 capsules twice a day with meals 0 09/06/2016 07/18/2022 Discontinued (Discontinued by Patient) Comment on above: 3 capsules twice a d ay with meals UltraNutrient (Pure Encapsulations) 3BID Multi-vitamin/coq10/mi lk thistle/turmeric/ginge r/alphalipoic acid/B complex (1 source) Start: 07-23-20 End: 07-18-20 UltraNutrient (Pure Encapsulations) 3BID Multi-vitamin/coq10/m ilk thistle/turmeric/ging er/alphalipoic acid/B complex 3 capsules twice a day with meals 0 07/23/2017 07/18/2022 Discontinued (Discontinued by Patient) Comment on above: 3 capsules twice a d ay with meals valACYclovir 1000 mg oral tablet (12 sources) Herpesvirus Nucleoside Analog DNA Polymerase Inhibitor, Herpes Simplex Virus Nucleoside Analog DNA Polymerase Inhibitor, Herpes Zoster Virus Nucleoside Analog DNA Polymerase Inhibitor Start: 08-15-20 End: 06-05-20 take 1 tablet by mouth three times daily Valacyclovir Hcl (Valtrex) 1,000 MG tablet Discontinued 1000 mg PO THREE TIMES A DAY August 15, 2018 1:00am June 05, 2022 3:07pm Start: 01-18-2018 End: 07-18-2022 valACYclovir (VALTREX) 1 gra m tab zinc gluconate 20 mg oral tablet (11 sources) Start: 06-05-2022 End: 06-05-2023 take 2 tablets by mouth once daily Zinc Gluconate 20 mg tablet Discontinued 40 mg PO DAILY June 05, 2022 12:00am June 05, 2023 10:48am Start: 06-05-2022 End: 06-05-2023 take 40 mg by mouth once daily Zinc Gluconate Disconti nued 40 MG PO DAILY June 04, 2022 11:00pm June 05, 2023 9:48am Start: 06-05-2022 End: 06-05-2023 take 40 mg by mouth once daily Zinc Gluconate Disconti nued 40 MG PO DAILY June 05, 2022 12:00am June 05, 2023 10:48am Start: 06-05-2022 take 40 mg by mouth once daily Zinc Gluconate Active 40 MG PO DAILY June 04, 2022 11:00pm Start: 06-05-2022 take 40 mg by mouth once daily Zinc Gluconate Active 40 MG PO DAILY June 05, 2022 12:00am Problems Active Problems Problem Classification Problem Date Documented Da te Episodic/Chronic Administrative/social admission (4 sources) Persons encountering health services in other specified circumstances; Translations: [Other reasons for seeking consultation] Episodic Cancer of thyroid (20 sources) Malignant tumor of thyroid gland; Translations: [Malignant neoplasm of thyroid gland] Onset: 6 11-12-2005 Chronic Cardiac and circulatory congenital anomalies (3 sources) Congenital cardiovascular disorder; 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, unspecified] Onset: 4 01-01-2024 Chronic Complications of surgical procedures or medical care (20 sources) Postoperative hypothyroidism; Translations: [Postprocedural hypothyroidism] Chronic Delirium, dementia, and amnestic and other cognitive disorders (5 sources) Pseudobulbar affect; 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] 12-31-2023 Chronic Disorders of lipid metabolism (1 source) Hyperlipidemia; Translations: [Hyperlipidemia, unspecified] 06-20-2024 Chronic Esophageal disorders (20 sources) Gastroesophageal reflux disease; Translations: [Gastro-esophageal reflux disease without esophagitis] Onset: 5 05-24-2005 Chronic Gastrointestinal hemorrhage (11 sources) Hematochezia; Translations: [Melena] 11-06-2021 Episodic Headache; including migraine (11 sources) Migraine; Translations: [Migraine, unspecified, not intractable, without status migrainosus] 06-05-2022 Chronic Immunizations and screening for infectious disease (2 sources) Carrier of other intestinal infectious diseases; Translations: [Carrier or suspected carrier of other gastrointestinal pathogens] 07-04-2023 Episodic Menopausal disorders (20 sources) Menopausal and postmenopausal disorders; Translations: [Unspecified menopausal and perimenopausal disorder] Onset: 7 09-06-2016 Chronic Mycoses (4 sources) Enteritis due to Ese; Translations: [Candidal enteritis] Episodic Noninfectious gastroenteritis (14 sources) Colitis; Translations: [Noninfective gastroenteritis and colitis, unspecified] Onset: Episodic Nutritional deficiencies (20 sources) Vitamin D deficiency; Translations: [Vitamin D deficiency, unspecified] Onset: 7 09-06-2016 Chronic Nutritional deficiencies (1 source) Vitamin deficiency; Translations: [Vitamin deficiency, unspecified] Episodic Osteoarthritis (13 sources) Arthritis; Translations: [Unspecified osteoarthritis, unspecified site] 06-05-2022 Chronic Osteoporosis (10 sources) Osteoporosis; Translations: [Age-related osteoporosis without current pathological fracture] 06-15-2023 Chronic Other congenital anomalies (20 sources) Congenital pes planus; Translations: [Congenital pes planus, unspecified foot] Onset: 1 02-27-2011 Chronic Other connective tissue disease (2 sources) Spasticity; Translations: [Cramp and spasm] 01-31-2024 Episodic Other gastrointestinal disorders (1 source) Irritable bowel syndrome; Translations: [Mixed irritable bowel syndrome] Chronic Other gastrointestinal disorders (2 sources) Dysphagia; Translations: [Dysphagia, unspecified] Episodic Other gastrointestinal disorders (1 source) Other functional disorders of intestine; Translations: [Intestinal dysbiosis] 03-13-2023 Episodic Other gastrointestinal disorders (1 source) Chronic constipation; Translations: [Other constipation] 12-19-2023 Episodic Other gastrointestinal disorders (1 source) Diarrhea; Translations: [Diarrhea, unspecified] 01-29-2024 Episodic Other hereditary and degenerative nervous system conditions (20 sources) Primary lateral sclerosis; 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] Onset: 6 Chronic Other hereditary and degenerative nervous system conditions (4 sources) Primary lateral sclerosis; 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] Onset: 4 Chronic Other hereditary and degenerative nervous system conditions (2 sources) Multisystem degeneration of autonomic nervous system; Translations: [Multi-system degeneration of the autonomic nervous system] Onset: 3 Chronic Other hereditary and degenerative nervous system conditions (1 source) Multi-system degeneration of the autonomic nervous system; Translations: [Multi-system degeneration of the autonomic nervous system] Onset: 3 Chronic Other hereditary and degenerative nervous system conditions (1 source) Amyotrophic lateral sclerosis; Translations: [Amyotrophic lateral sclerosis] 02-26-2024 Chronic Other hereditary and degenerative nervous system conditions (2 sources) Motor neuron disease, unspecified; 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)] Onset: 7 Chronic Other hereditary and degenerative nervous system conditions (1 source) Amyotrophic lateral sclerosis; Translations: [ALS (amyotrophic lateral sclerosis) (HCC)] Onset: 4 Chronic Other infections; including parasitic (13 sources) History of Lyme disease; Translations: [Personal history of other infectious and parasitic diseases] 06-05-2022 Episodic Other infections; including parasitic (2 sources) Lyme disease; Translations: [Lyme disease, unspecified] Onset: 1 09-15-2020 Episodic Other nervous system disorders (1 source) Chronic pain; Translations: [Other chronic pain] Onset: 1 09-15-2020 Chronic Other nervous system disorders (1 source) Difficulty in walking, not elsewhere classified; Translations: [Impaired ambulation] Onset: 4 Chronic Other nervous system disorders (3 sources) Dysarthria; Translations: [Dysarthria and anarthria] Episodic Other nervous system disorders (1 source) Spastic dysarthria; Translations: [Dysarthria and anarthria] 01-30-2024 Episodic Other nutritional; endocrine; and metabolic disorders (20 sources) Metabolic syndrome X; Translations: [Metabolic syndrome] Onset: 7 05-21-2007 Chronic Other screening for suspected conditions (not mental disorders or infectious disease) (20 sources) Encounter for screening for malignant neoplasm of colon; Translations: [Special screening for malignant neoplasms of colon] Onset: 5 Episodic Other upper respiratory disease (3 sources) Allergic fungal sinusitis; Translations: [Other allergic rhinitis] Chronic Other upper respiratory disease (1 source) Allergic rhinitis; Translations: [Other allergic rhinitis] 03-13-2023 Chronic Paralysis (1 source) Spastic paraparesis ; 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] Onset: 6 11-30-2015 Chronic Residual codes; unclassified (2 sources) Immunization not carried out because of patient refusal; Translations: [Vaccination not carried out because of patient refusal] Episodic Residual codes; unclassified (2 sources) Asymptomatic menopausal state; Translations: [Asymptomatic postmenopausal status (age-related) (natural)] Episodic Residual codes; unclassified (2 sources) Contact with and (suspected) exposure to mold (toxic); Translations: [Contact with and (suspected) exposure to mold] Episodic Spondylosis; intervertebral disc disorders; other back problems (1 source) Degeneration of lumbosacral intervertebral disc; Translations: [Other intervertebral disc degeneration, lumbosacral region] Onset: 1 09-15-2020 Chronic Thyroid disorders (20 sources) Hypothyroidism; Translations: [Hypothyroidism, unspecified] Onset: 7 09-06-2016 Chronic Unclassified (1 source) PT Eval Onset: 4 Past or Other Problems Problem Classification Problem Date Documented Da te Episodic/Chronic Biliary tract disease (20 sources) Calculus of gallbladder with cholecystitis; Translations: [Calculus of gallbladder with chronic cholecystitis without obstruction] Onset: 01-25-2006 01-25-2006 Episodic Cancer of thyroid (20 sources) History of malignant neoplasm of thyroid; Translations: [Personal history of malignant neoplasm of thyroid] Onset: 05-24-2005 05-24-2005 Episodic Fracture of lower limb (20 sources) Closed fracture of metatarsal bone; Translations: [Fracture of unspecified metatarsal bone(s), unspecified foot, initial encounter for closed fracture] Onset: 07-12-2005 07-12-2005 Episodic Gastritis and duodenitis (20 sources) Gastritis; Translations: [Other gastritis without bleeding] Onset: 03-09-2006 03-09-2006 Episodic Malaise and fatigue (20 sources) Fatigue; Translations: [Other fatigue] Onset: 09-06-2016 09-06-2016 Episodic Other connective tissue disease (20 sources) Other symptoms and signs involving the musculoskeletal system; Translations: [Other musculoskeletal symptoms referable to limbs] Onset: 07-14-2013 07-14-2013 Episodic Other connective tissue disease (20 sources) Cramp in foot; Translations: [Cramp and spasm] Onset: 09-06-2016 09-06-2016 Episodic Other connective tissue disease (20 sources) Muscle spasticity present; Translations: [Other muscle spasm] Onset: 10-03-2023 Resolved: 08-19-2024 10-03-2023 Episodic Other connective tissue disease (20 sources) Musculoskeletal finding; Translations: [Other symptoms and signs involving the musculoskeletal system] Onset: 10-03-2023 Resolved: 08-19-2024 10-03-2023 Episodic Other connective tissue disease (20 sources) Pain in right lower limb; Translations: [Pain in right leg] Onset: 10-03-2023 Resolved: 08-19-2024 10-03-2023 Episodic Other connective tissue disease (1 source) Other muscle spasm; Translations: [Muscle spasticity] Onset: 10-03-2023 Episodic Other connective tissue disease (1 source) Pain in right leg; Translations: [Right leg pain] Onset: 10-03-2023 Episodic Other connective tissue disease (1 source) Muscle weakness (generalized); Translations: [Muscle weakness (generalized)] Onset: 10-19-2024 Episodic Other gastrointestinal disorders (20 sources) Dysphagia, unspecified; Translations: [Dysphagia, unspecified] Onset: 10-01-2014 Episodic Other hereditary and degenerative nervous system conditions (20 sources) Motor neuron disease; 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, unspecified] Onset: 09-06-2016 Resolved: 08-19-2024 09-06-2016 Chronic Other infections; including parasitic (2 sources) Personal history of other infectious and parasitic diseases; Translations: [Personal history of other infectious and parasitic diseases] Onset: 11-12-2023 Episodic Other inflammatory condition of skin (20 sources) Pruritus ani; Translations: [Pruritus ani] Onset: 02-26-2017 02-26-2017 Episodic Other injuries and conditions due to external causes (20 sources) Injury of musculoskeletal system; Translations: [Other injury of unspecified body region, initial encounter] Onset: 08-19-2007 08-19-2007 Episodic Other nervous system disorders (20 sources) Walking disability; Translations: [Difficulty in walking, not elsewhere classified] Onset: 10-03-2023 Resolved: 08-19-2024 10-03-2023 Chronic Other nervous system disorders (20 sources) Abnormal gait; Translations: [Unsteadiness on feet] Onset: 11-30-2015 Resolved: 08-19-2024 Episodic Other nervous system disorders (20 sources) Decreased coordination; Translations: [Other lack of coordination] Onset: 01-09-2024 01-09-2024 Episodic Other nervous system disorders (1 source) Unspecified abnormalities of gait and mobility; Translations: [Abnormality of gait] Onset: 10-03-2023 Episodic Other non-traumatic joint disorders (6 sources) Pain in right knee; Translations: [Pain in joint, lower leg] Onset: 02-01-2024 12-13-2023 Episodic Other skin disorders (20 sources) Skin lesion; Translations: [Disorder of the skin and subcutaneous tissue, unspecified] Onset: 02-28-2011 02-28-2011 Episodic Residual codes; unclassified (20 sources) Disturbance in sleep behavior; Translations: [Sleep disorder, unspecified] Onset: 04-22-2018 04-22-2018 Episodic Residual codes; unclassified (20 sources) Finding of activity of daily living; Translations: [Other specified health status] Onset: 01-09-2024 01-09-2024 Episodic Residual codes; unclassified (8 sources) Family history of cardiac disorder; Translations: [Family history of other congenital malformations, deformations and chromosomal abnormalities] Onset: 06-20-2024 06-20-2024 Episodic Sprains and strains (20 sources) Injury of shoulder and upper arm; Translations: [Sprain and strain of unspecified site of shoulder and upper arm] Onset: 10-18-2006 10-18-2006 Episodic Results Test Name Value Interpretation Reference Range Facility Anion gap in Serum or Plasma Ordered By: Chela Lynn on 04-27-2025 Anion gap [Moles/Vol] 13 mmol/L 5-15 [facility] BUN/creatinine ratioOrdered By: Chela Lynn on 04-27-2025 Urea nitrogen/Creatinine [Mass ratio] 43.2 mg/mg High 10-20 [facility] Bilirubin, totalOrdered By: Chela Lynn on 04-27-2025 Bilirubin [Mass/Vol] 0.16 mg/dL 0.00-1.30 [facility] Carbon dioxide, total [Moles /volume] in Central venous bloodOrdered By: Chela Lynn on 04-27-2025 CO2 [Moles/Vol] 25.4 mmol/L 21.0-32.0 [facility] Chloride assayOrdered By: Ruperto Lynn on 04-27-2025 Chloride [Moles/Vol] 104 mmol/L 98-108 [facility] Comprehensive Metabolic Prof ilon 04-27-2025 Albumin [Mass/Vol] 4.2 g/dL Normal 3.4-4.8 [facility] Comment on above: Performed By: #### L [id number], L501.9186, L500.4050, L501.9520, L506.0400, L501.9310, L100.0100, L3100.1850 #### [facility] [address] [place], [address] Albumin/Globulin [Mass ratio] 1.8 {ratio} Normal 0.9-2.4 [facility] Comment on above: Performed By: #### L [id number], [id number], L500.4050, L501.9520, L506.0400, L501.9310, L100.0100, L3100.1850 #### [facility] [address] [place], [address] ALK PHOS 83 U/L Normal 35-104 [facility] Comment on above: Performed By: #### L [id number], L501.9186, L500.4050, L501.9520, L506.0400, L501.9310, L100.0100, L3100.1850 #### [facility] [address] [place], [address] ALT [Catalytic activity/Vol] 26 U/L Normal <=34 [facility] Comment on above: Performed By: #### L [id number], L501.9186, L500.4050, L501.9520, L506.0400, L501.9310, L100.0100, L3100.1850 #### [facility] [address] [place], [address] AST [Catalytic activity/Vol] 20 U/L Normal <=31 [facility] Comment on above: Performed By: #### L [id number], [id number], L500.4050, L501.9520, L506.0400, L501.9310, L100.0100, L3100.1850 #### [facility] [address] [place], [address] Bilirubin [Mass/Vol] 0.16 mg/dL Normal 0.00-1.30 [facility] Comment on above: Performed By: #### L [id number], L501.9186, L500.4050, L501.9520, L506.0400, L501.9310, L100.0100, L3100.1850 #### [facility] [address] [place], [address] BUN/CRE 43.2 RATIO High 10-20 [facility] Comment on above: Performed By: #### L [id number], L501.9186, L500.4050, L501.9520, L506.0400, L501.9310, L100.0100, L3100.1850 #### [facility] [address] [place], [address] Calcium [Mass/Vol] 9.8 mg/dL Normal 7.6-11.0 [facility] Comment on above: Performed By: #### L [id number], L501.9186, L500.4050, L501.9520, L506.0400, L501.9310, L100.0100, L3100.1850 #### [facility] [address] [place], [address] Chloride [Moles/Vol] 104 mmol/L Normal 98-108 [facility] Comment on above: Performed By: #### L [id number], L501.9186, L500.4050, L501.9520, L506.0400, L501.9310, L100.0100, L3100.1850 #### [facility] [address] [place], [address] CO2 [Moles/Vol] 25.4 mmol/L Normal 21.0-32.0 [facility] Comment on above: Performed By: #### L [id number], L501.9186, L500.4050, L501.9520, L506.0400, L501.9310, L100.0100, L3100.1850 #### [facility] [address] [place], [address] Creatinine [Mass/Vol] 0.45 mg/dL Low 0.70-1.20 [facility] Comment on above: Performed By: #### L [id number], L501.9186, L500.4050, L501.9520, L506.0400, L501.9310, L100.0100, L3100.1850 #### [facility] [address] [place], [address] GAP 13 Normal 5-15 [facility] Comment on above: Performed By: #### L [id number], L501.9186, L500.4050, L501.9520, L506.0400, L501.9310, L100.0100, L3100.1850 #### [facility] [address] [place], [address] GFR/1.73 sq M.predicted among non-blacks MDRD (S/P/Bld) [Vol rate/Area] 103 mL/min/{1.73_m2} Normal >60 [facility] Comment on above: Result Comment: mL/m in/1.73m2 CKD-EPI Creatinine Equation (2020) Performed By: #### L [id number], L501.9186, L500.4050, L501.9520, L506.0400, L501.9310, L100.0100, L3100.1850 #### [facility] [address] [place], [address] Globulin (S) [Mass/Vol] 2.4 g/dL Normal 2.2-4.2 [facility] Comment on above: Performed By: #### L [id number], L501.9186, L500.4050, L501.9520, L506.0400, L501.9310, L100.0100, L3100.1850 #### [facility] [address] [place], [address] Glucose [Mass/Vol] 109 mg/dL High 70-99 [facility] Comment on above: Performed By: #### L [id number], L501.9186, L500.4050, L501.9520, L506.0400, L501.9310, L100.0100, L3100.1850 #### [facility] [address] [place], [address] Potassium [Moles/Vol] 4.0 mmol/L Normal 3.3-5.1 [facility] Comment on above: Performed By: #### L [id number], L501.9186, L500.4050, L501.9520, L506.0400, L501.9310, L100.0100, L3100.1850 #### [facility] [address] [place], [address] Sodium [Moles/Vol] 143 mmol/L Normal 133-145 [facility] Comment on above: Performed By: #### L [id number], L501.9186, L500.4050, L501.9520, L506.0400, L501.9310, L100.0100, L3100.1850 #### [facility] [address] [place], [address] T PROT 6.5 g/dL Normal 5.9-8.4 [facility] Comment on above: Performed By: #### L 501.70589, L501.9186, L500.4050, L501.9520, L506.0400, L501.9310, L100.0100, L3100.1850 #### [facility] [address] [place], [address] Urea nitrogen [Mass/Vol] 19 mg/dL Normal 4-19 [facility] Comment on above: Performed By: #### L [id number], L501.9186, L500.4050, L501.9520, L506.0400, L501.9310, L100.0100, L3100.1850 #### [facility] [address] [place], [address] Glomerular filtration rate ( GFR) estimation/1.73 sq m using serum, plasma, or whole bOrdered By: Chela Lynn on 04-27-2025 GFR/1.73 sq M.predicted among non-blacks MDRD (S/P/Bld) [Vol rate/Area] 103 mL/min/{1.73_m2} >60 [facility] Comment on above: mL/min/1.73m2 CKD-EP I Creatinine Equation (2020) Laboratory - Chemistry and C hemistry - challengeOrdered By: Chela Lynn on 04-27-2025 AST [Catalytic activity/Vol] 20 U/L <32 [facility] Potassium measurement (mass/ volume)Ordered By: Chela Lynn on 04-27-2025 Potassium (Unsp spec) [Mass/Vol] 4.0 mmol/L 3.3-5.1 [facility] Serum creatinine measurement (mass/volume)Ordered By: Chela Lynn on 04-27-2025 Creatinine [Mass/Vol] 0.45 mg/dL Low 0.70-1.20 [facility] Serum globulin measurementOr dered By: Chela Lynn on 04-27-2025 Globulin (S) [Mass/Vol] 2.4 g/dL 2.2-4.2 [facility] Serum glucose measurement (m ass/volume)Ordered By: Chela Lynn on 04-27-2025 Glucose [Mass/Vol] 109 mg/dL High 70-99 [facility] Serum or plasma alanine more otransferase (ALT) measurementOrdered By: Chela Lynn on 04-27-2025 ALT [Catalytic activity/Vol] 26 U/L <35 [facility] Serum or plasma albumin lilliana urement (mass/volume)Ordered By: Chela Lynn on 04-27-2025 Albumin [Mass/Vol] 4.2 g/dL 3.4-4.8 [facility] Serum or plasma albumin/glob ulin mass ratioOrdered By: Chela Lynn on 04-27-2025 Albumin/Globulin [Mass ratio] 1.8 {ratio} 0.9-2.4 [facility] Serum or plasma alkaline lilo sphatase measurementOrdered By: Chela Lynn on 04-27-2025 ALP [Catalytic activity/Vol] 83 U/L 35-104 [facility] Serum or plasma calcium lilliana urement (mass/volume)Ordered By: Chela Lynn on 04-27-2025 Calcium [Mass/Vol] 9.8 mg/dL 7.6-11.0 [facility] Serum or plasma urea nitroge n measurement (mass/volume)Ordered By: Chela Lynn on 04-27-2025 Urea nitrogen [Mass/Vol] 19 mg/dL 4-19 [facility] Sodium levelOrdered By: Mateus Lynn on 04-27-2025 Sodium [Moles/Vol] 143 mmol/L 133-145 [facility] Total proteinOrdered By: Araceli danay Shane on 04-27-2025 Protein [Mass/Vol] 6.5 g/dL 5.9-8.4 [facility] Absolute lymphocyte countOrd ered By: Chela Lynn on 04-10-2025 Lymphocytes Auto (Unsp spec) [#/Vol] 1.81 10*3/uL 0.83-4.51 [facility] Absolute neutrophil countOrd ered By: Chela Lynn on 04-10-2025 Neutrophils (Bld) [#/Vol] 3.1 10*3/uL 2.0-7.7 [facility] Anion gap in Serum or Plasma Ordered By: Chela Lynn on 04-10-2025 Anion gap [Moles/Vol] 12 mmol/L 5-15 [facility] Automated lymphocyte count a s percentage of total leukocytesOrdered By: Chela Lynn on 04-10-2025 Lymphocytes/100 WBC Auto (Unsp spec) 32.8 % 19-41 [facility] BUN/creatinine ratioOrdered By: Chela Lynn on 04-10-2025 Urea nitrogen/Creatinine [Mass ratio] 33.8 mg/mg High 10-20 [facility] Basophil percentageOrdered B y: Chela Lynn on 04-10-2025 Basophils/100 WBC (Bld) 0.7 % 0-1 [facility] Bilirubin, totalOrdered By: Chela Lynn on 04-10-2025 Bilirubin [Mass/Vol] 0.39 mg/dL 0.00-1.30 [facility] CBC W/Diff, Automatedon Absolute Lymph 1.81 X10 3/uL Normal 0.83-4.51 [facility] Comment on above: Performed By: #### L [id number], L501.9186, L500.4050, L501.9520, L506.0400, L501.9310, L100.0100, L3100.1850 #### [facility] Laboratory [facility] [place], [address] Absolute Neut 3.1 X10 3/uL Normal 2.0-7.7 [facility] Comment on above: Performed By: #### L [id number], L501.9186, L500.4050, L501.9520, L506.0400, L501.9310, L100.0100, L3100.1850 #### [facility] Laboratory [address] [place], [address] Basophils/100 WBC (Bld) 0.7 % Normal 0-1 [facility] Comment on above: Performed By: #### L 501.32088, L501.9186, L500.4050, L501.9520, L506.0400, L501.9310, L100.0100, L3100.1850 #### [facility] Laboratory [address] [place], [address] Eosinophils/100 WBC (Bld) 1.6 % Normal 0-5 [facility] Comment on above: Performed By: #### L 501.05690, L501.9186, L500.4050, L501.9520, L506.0400, L501.9310, L100.0100, L3100.1850 #### [facility] Laboratory [address] [place], [address] Erythrocyte distribution width (RBC) [Ratio] 13.3 % Normal 11.6-14.6 [facility] Comment on above: Performed By: #### L 501.44661, L501.9186, L500.4050, L501.9520, L506.0400, L501.9310, L100.0100, L3100.1850 #### [facility] Laboratory [address] [place], [address] Hematocrit (Bld) [Volume fraction] 41.2 % Normal 37-47 [facility] Comment on above: Performed By: #### L 501.17846, L501.9186, L500.4050, L501.9520, L506.0400, L501.9310, L100.0100, L3100.1850 #### [facility] Laboratory [address] [place], [address] Hemoglobin (Bld) [Mass/Vol] 13.4 g/dL Normal 12.0-15.0 [facility] Comment on above: Performed By: #### L 501.72648, L501.9186, L500.4050, L501.9520, L506.0400, L501.9310, L100.0100, L3100.1850 #### [facility] Laboratory [address] [facility] [place], [address] IG% 0.200 Normal 0.0-0.9 [facility] Comment on above: Result Comment: IG% - Immature Granulocytes (promyelocytes, myelocytes and metamyelocytes) > 1% indicates that a LEFT SHIFT is Present. Performed By: #### L 501.79119, L501.9186, L500.4050, L501.9520, L506.0400, L501.9310, L100.0100, L3100.1850 #### [facility] Laboratory [address] [facility] [place], [address] Lymphocytes/100 WBC (Bld) 32.8 % Normal 19-41 [facility] Comment on above: Performed By: #### L 501.16520, L501.9186, L500.4050, L501.9520, L506.0400, L501.9310, L100.0100, L3100.1850 #### [facility] Laboratory [address] [facility] [place], [address] MCH (RBC) [Entitic mass] 31.2 pg Normal 27.0-32.0 [facility] Comment on above: Performed By: #### L 501.86953, L501.9186, L500.4050, L501.9520, L506.0400, L501.9310, L100.0100, L3100.1850 #### [facility] Laboratory [address] [place], [address] MCHC (RBC) [Mass/Vol] 32.5 g/dL Normal 32-36 [facility] Comment on above: Performed By: #### L 501.51121, L501.9186, L500.4050, L501.9520, L506.0400, L501.9310, L100.0100, L3100.1850 #### [facility] Laboratory [address] [place], [address] MCV (RBC) [Entitic vol] 95.8 fL Normal 81-99 [facility] Comment on above: Performed By: #### L 501.33193, L501.9186, L500.4050, L501.9520, L506.0400, L501.9310, L100.0100, L3100.1850 #### [facility] Laboratory [address] [place], [address] Monocytes/100 WBC (Bld) 9.2 % Normal 0-10 [facility] Comment on above: Performed By: #### L 501.59589, L501.9186, L500.4050, L501.9520, L506.0400, L501.9310, L100.0100, L3100.1850 #### [facility] Laboratory [address] [place], [address] Neutrophils/100 WBC (Bld) 55.5 % Normal 47-70 [facility] Comment on above: Performed By: #### L 501.68153, L501.9186, L500.4050, L501.9520, L506.0400, L501.9310, L100.0100, L3100.1850 #### [facility] Laboratory [address] [place], [address] Nucleated RBC (Bld) [#/Vol] 0 10*3/uL Normal 0-5 [facility] Comment on above: Performed By: #### L 501.20339, L501.9186, L500.4050, L501.9520, L506.0400, L501.9310, L100.0100, L3100.1850 #### [facility] Laboratory [address] [place], [address] Platelet mean volume (Bld) [Entitic vol] 11.1 fL Normal 6.2-12.0 [facility] Comment on above: Performed By: #### L 501.48601, L501.9186, L500.4050, L501.9520, L506.0400, L501.9310, L100.0100, L3100.1850 #### [facility] Laboratory [address] [place], [address] Platelets (Bld) [#/Vol] 228 10*3/uL Normal 150-450 [facility] Comment on above: Performed By: #### L 501.98837, L501.9186, L500.4050, L501.9520, L506.0400, L501.9310, L100.0100, L3100.1850 #### [facility] Laboratory [address] [place], [address] RBC (Bld) [#/Vol] 4.30 10*6/uL Normal 4.2-5.4 [facility] Comment on above: Performed By: #### L 501.80866, L501.9186, L500.4050, L501.9520, L506.0400, L501.9310, L100.0100, L3100.1850 #### [facility] Laboratory [address] [place], [address] RDW SD 46.7 fl High 35.1-43.9 [facility] Comment on above: Performed By: #### L 501.82171, L501.9186, L500.4050, L501.9520, L506.0400, L501.9310, L100.0100, L3100.1850 #### [facility] Laboratory [address] [place], [place], [id number] WBC (Bld) [#/Vol] 5.5 10*3/uL Normal 4.4-11.0 [facility] Comment on above: Performed By: #### L 501.22447, L501.9186, L500.4050, L501.9520, L506.0400, L501.9310, L100.0100, L3100.1850 #### [facility] Laboratory [address] [place], [place], [id number] Carbon dioxide, total [Moles /volume] in Central venous bloodOrdered By: Chela Lynn on 04-10-2025 CO2 [Moles/Vol] 24.3 mmol/L 21.0-32.0 [facility] Chloride assayOrdered By: Ruperto Lynn on 04-10-2025 Chloride [Moles/Vol] 104 mmol/L 98-108 [facility] Comprehensive Metabolic Prof ilon 04-10-2025 Albumin [Mass/Vol] 4.2 g/dL Normal 3.4-4.8 [facility] Comment on above: Performed By: #### L 501.45347, L501.9186, L500.4050, L501.9520, L506.0400, L501.9310, L100.0100, L3100.1850 #### [facility] Laboratory [address] [place], [place], [id number] (506) Albumin/Globulin [Mass ratio] 1.8 {ratio} Normal 0.9-2.4 [facility] Comment on above: Performed By: #### L 501.79503, L501.9186, L500.4050, L501.9520, L506.0400, L501.9310, L100.0100, L3100.1850 #### [facility] Laboratory [address] [place], [address] ALK PHOS 82 U/L Normal 35-104 [facility] Comment on above: Result Comment: Hemo lysis Present, Results may be affected. Performed By: #### L 501.22177, L501.9186, L500.4050, L501.9520, L506.0400, L501.9310, L100.0100, L3100.1850 #### [facility] Laboratory [address] [place], [address] ALT [Catalytic activity/Vol] 32 U/L Normal <=34 [facility] Comment on above: Result Comment: Hemo lysis present, Results??could be affected. ?? Performed By: #### L 501.85180, L501.9186, L500.4050, L501.9520, L506.0400, L501.9310, L100.0100, L3100.1850 #### [facility] Laboratory [address] [place], [address] AST [Catalytic activity/Vol] 67 U/L High <=31 [facility] Comment on above: Result Comment: Hemo lysis present, Results??could be affected. ?? Performed By: #### L 501.59444, L501.9186, L500.4050, L501.9520, L506.0400, L501.9310, L100.0100, L3100.1850 #### [facility] Laboratory [address] [place], [address] Bilirubin [Mass/Vol] 0.39 mg/dL Normal 0.00-1.30 [facility] Comment on above: Performed By: #### L 501.98038, L501.9186, L500.4050, L501.9520, L506.0400, L501.9310, L100.0100, L3100.1850 #### [facility] Laboratory [address] [place], [address] BUN/CRE 33.8 RATIO High 10-20 [facility] Comment on above: Performed By: #### L 501.09145, L501.9186, L500.4050, L501.9520, L506.0400, L501.9310, L100.0100, L3100.1850 #### [facility] Laboratory [address] [place], [address] Calcium [Mass/Vol] 9.9 mg/dL Normal 7.6-11.0 [facility] Comment on above: Performed By: #### L 501.86498, L501.9186, L500.4050, L501.9520, L506.0400, L501.9310, L100.0100, L3100.1850 #### [facility] Laboratory [address] [place], [address] Chloride [Moles/Vol] 104 mmol/L Normal 98-108 [facility] Comment on above: Performed By: #### L 501.99800, L501.9186, L500.4050, L501.9520, L506.0400, L501.9310, L100.0100, L3100.1850 #### [facility] Laboratory [address] [place], [address] CO2 [Moles/Vol] 24.3 mmol/L Normal 21.0-32.0 [facility] Comment on above: Performed By: #### L 501.24645, L501.9186, L500.4050, L501.9520, L506.0400, L501.9310, L100.0100, L3100.1850 #### [facility] Laboratory [address] [place], [address] Creatinine [Mass/Vol] 0.45 mg/dL Low 0.70-1.20 [facility] Comment on above: Performed By: #### L 501.04827, L501.9186, L500.4050, L501.9520, L506.0400, L501.9310, L100.0100, L3100.1850 #### [facility] Laboratory [address] [place], [address] GAP 12 Normal 5-15 [facility] Comment on above: Performed By: #### L 501.40081, L501.9186, L500.4050, L501.9520, L506.0400, L501.9310, L100.0100, L3100.1850 #### [facility] Laboratory [address] [place], [place], [id number] ([address]) GFR/1.73 sq M.predicted among non-blacks MDRD (S/P/Bld) [Vol rate/Area] 103 mL/min/{1.73_m2} Normal >60 [facility] Comment on above: Result Comment: mL/m in/1.73m2 CKD-EPI Creatinine Equation (2020) Performed By: #### L 501.36236, L501.9186, L500.4050, L501.9520, L506.0400, L501.9310, L100.0100, L3100.1850 #### [facility] Laboratory [address] [place], [address] Globulin (S) [Mass/Vol] 2.3 g/dL Normal 2.2-4.2 [facility] Comment on above: Performed By: #### L 501.13129, L501.9186, L500.4050, L501.9520, L506.0400, L501.9310, L100.0100, L3100.1850 #### [facility] Laboratory [address] [place], [address] Glucose [Mass/Vol] 119 mg/dL High 70-99 [facility] Comment on above: Performed By: #### L 501.76835, L501.9186, L500.4050, L501.9520, L506.0400, L501.9310, L100.0100, L3100.1850 #### [facility] Laboratory [address] [place], [address] Potassium [Moles/Vol] 5.4 mmol/L High 3.3-5.1 [facility] Comment on above: Result Comment: Hemo lysis present, Results??could be affected. ?? Performed By: #### L 501.22816, L501.9186, L500.4050, L501.9520, L506.0400, L501.9310, L100.0100, L3100.1850 #### [facility] Laboratory [address] [place], [address] Sodium [Moles/Vol] 141 mmol/L Normal 133-145 [facility] Comment on above: Performed By: #### L 501.95722, L501.9186, L500.4050, L501.9520, L506.0400, L501.9310, L100.0100, L3100.1850 #### [facility] Laboratory [address] [place], [address] T PROT 6.4 g/dL Normal 5.9-8.4 [facility] Comment on above: Performed By: #### L 501.37473, L501.9186, L500.4050, L501.9520, L506.0400, L501.9310, L100.0100, L3100.1850 #### [facility] Laboratory [address] [place], [address] Urea nitrogen [Mass/Vol] 15 mg/dL Normal 4-19 [facility] Comment on above: Performed By: #### L 501.95575, L501.9186, L500.4050, L501.9520, L506.0400, L501.9310, L100.0100, L3100.1850 #### [facility] Laboratory [address] [place], [address] Eosinophil percentageOrdered By: Chela Lynn on 04-10-2025 Eosinophils/100 WBC (Bld) 1.6 % 0-5 [facility] Erythrocyte distribution wid th ratioOrdered By: Chela Lynn on 04-10-2025 Erythrocyte distribution width (RBC) [Ratio] 13.3 % 11.6-14.6 [facility] Erythrocyte distribution wid th standard deviationOrdered By: Chela Lynn on 04-10-2025 Erythrocyte distribution width (RBC) [Ratio] 46.7 fl High 35.1-43.9 [facility] Glomerular filtration rate ( GFR) estimation/1.73 sq m using serum, plasma, or whole bOrdered By: Chela Lynn on 04-10-2025 GFR/1.73 sq M.predicted among non-blacks MDRD (S/P/Bld) [Vol rate/Area] 103 mL/min/{1.73_m2} >60 [facility] Comment on above: mL/min/1.73m2 CKD-EP I Creatinine Equation (2020) Hematocrit Auto (Bld) [Volum e fraction]Ordered By: Chela Lynn on 04-10-2025 Hematocrit (Bld) [Volume fraction] 41.2 % 37-47 [facility] Hemoglobin measurementOrdere d By: Chela Lynn on 04-10-2025 Hemoglobin (Bld) [Mass/Vol] 13.4 g/dL 12.0-15.0 [facility] Immature granulocytes/100 WB C Auto (Bld)Ordered By: Chela Lynn on 04-10-2025 Immature granulocytes/100 WBC (Bld) 0.200 % 0.0-0.9 [facility] Comment on above: IG% - Immature Granu locytes (promyelocytes, myelocytes and metamyelocytes) > 1% indicates that a LEFT SHIFT is Present. Laboratory - Chemistry and C hemistry - challengeOrdered By: Chela Lynn on 04-10-2025 AST [Catalytic activity/Vol] 67 U/L High <32 [facility] Comment on above: Hemolysis present, R esults could be affected. MCV (mean corpuscular volume ) determinationOrdered By: Chela Lynn on 04-10-2025 MCV (RBC) [Entitic vol] 95.8 fL 81-99 [facility] Mean corpuscular hemoglobin (MCH) determinationOrdered By: Chela Lynn on 04-10-2025 MCH (RBC) [Entitic mass] 31.2 pg 27.0-32.0 [facility] Mean corpuscular hemoglobin concentration (MCHC) determinationOrdered By: Chela Lynn on 04-10-2025 MCHC (RBC) [Mass/Vol] 32.5 g/dL 32-36 [facility] Mean platelet volume determi nationOrdered By: Chela Lynn on 04-10-2025 Platelet mean volume (Bld) [Entitic vol] 11.1 fL 6.2-12.0 [facility] Monocyte percentageOrdered B y: Chela Lynn on 04-10-2025 Monocytes/100 WBC (Bld) 9.2 % 0-10 [facility] Neutrophil percentageOrdered By: Chela Lynn on 04-10-2025 Neutrophils/100 WBC (Bld) 55.5 % 47-70 [facility] Nucleated red blood cell per centageOrdered By: Chela Lynn on 04-10-2025 Nucleated RBC/100 WBC (Bld) [Ratio] 0 % 0-5 [facility] Platelet countOrdered By: Ruperto Lynn on 04-10-2025 Platelets (Bld) [#/Vol] 228 10*3/uL 150-450 [facility] Potassium measurement (mass/ volume)Ordered By: Chela Lynn on 04-10-2025 Potassium (Unsp spec) [Mass/Vol] 5.4 mmol/L High 3.3-5.1 [facility] Comment on above: Hemolysis present, R esults could be affected. RBC Auto (Bld) [#/Vol]Ordere d By: Chela Lynn on 04-10-2025 RBC (Bld) [#/Vol] 4.30 10*6/uL 4.2-5.4 [facility] Serum creatinine measurement (mass/volume)Ordered By: Chela Lynn on 04-10-2025 Creatinine [Mass/Vol] 0.45 mg/dL Low 0.70-1.20 [facility] Serum globulin measurementOr dered By: Chela Lynn on 04-10-2025 Globulin (S) [Mass/Vol] 2.3 g/dL 2.2-4.2 [facility] Serum glucose measurement (m ass/volume)Ordered By: Chela Lynn on 04-10-2025 Glucose [Mass/Vol] 119 mg/dL High 70-99 [facility] Serum or plasma alanine more otransferase (ALT) measurementOrdered By: Chela Lynn on 04-10-2025 ALT [Catalytic activity/Vol] 32 U/L <35 [facility] Comment on above: Hemolysis present, R esults could be affected. Serum or plasma albumin lilliana urement (mass/volume)Ordered By: Chela Lynn on 04-10-2025 Albumin [Mass/Vol] 4.2 g/dL 3.4-4.8 [facility] Serum or plasma albumin/glob ulin mass ratioOrdered By: Chela Lynn on 04-10-2025 Albumin/Globulin [Mass ratio] 1.8 {ratio} 0.9-2.4 [facility] Serum or plasma alkaline lilo sphatase measurementOrdered By: Chela Lynn on 04-10-2025 ALP [Catalytic activity/Vol] 82 U/L 35-104 [facility] Comment on above: Hemolysis Present, R esults may be affected. Serum or plasma calcium lilliana urement (mass/volume)Ordered By: Chela Lynn on 04-10-2025 Calcium [Mass/Vol] 9.9 mg/dL 7.6-11.0 [facility] Serum or plasma urea nitroge n measurement (mass/volume)Ordered By: Chela Lynn on 04-10-2025 Urea nitrogen [Mass/Vol] 15 mg/dL 4-19 [facility] Sodium levelOrdered By: Mateus Lynn on 04-10-2025 Sodium [Moles/Vol] 141 mmol/L 133-145 [facility] Total proteinOrdered By: Araceli Lynn on 04-10-2025 Protein [Mass/Vol] 6.4 g/dL 5.9-8.4 [facility] White blood cell (WBC) count Ordered By: Chela Lynn on 04-10-2025 WBC (Bld) [#/Vol] 5.5 10*3/uL 4.4-11.0 [facility] Absolute lymphocyte countOrd ered By: Chela Lynn on 03-20-2025 Lymphocytes Auto (Unsp spec) [#/Vol] 1.78 10*3/uL 0.83-4.51 [facility] Absolute neutrophil countOrd ered By: Chela Lynn on 03-20-2025 Neutrophils (Bld) [#/Vol] 3.8 10*3/uL 2.0-7.7 [facility] Automated lymphocyte count a s percentage of total leukocytesOrdered By: Chela Sebastiánfilomena on 03-20-2025 Lymphocytes/100 WBC Auto (Unsp spec) 28.3 % 19-41 [facility] Basophil percentageOrdered B y: Chela Loweryfilomena on 03-20-2025 Basophils/100 WBC (Bld) 0.5 % 0-1 [facility] CBC W/Diff, Automatedon 03-03 Absolute Lymph 1.78 X10 3/uL Normal 0.83-4.51 [facility] Comment on above: Performed By: #### L 501.87781, L501.9186, L500.4050, L501.9520, L506.0400, L501.9310, L100.0100, L3100.1850 #### [facility] [address] [place], [address] Absolute Neut 3.8 X10 3/uL Normal 2.0-7.7 [facility] Comment on above: Performed By: #### L 501.76698, L501.9186, L500.4050, L501.9520, L506.0400, L501.9310, L100.0100, L3100.1850 #### [facility] [address] [facility] [place], [address] Basophils/100 WBC (Bld) 0.5 % Normal 0-1 [facility] Comment on above: Performed By: #### L 501.63496, L501.9186, L500.4050, L501.9520, L506.0400, L501.9310, L100.0100, L3100.1850 #### [facility] [address] [place], [address] Eosinophils/100 WBC (Bld) 1.9 % Normal 0-5 [facility] Comment on above: Performed By: #### L 501.46304, L501.9186, L500.4050, L501.9520, L506.0400, L501.9310, L100.0100, L3100.1850 #### [facility] [address] [place], [address] Erythrocyte distribution width (RBC) [Ratio] 13.7 % Normal 11.6-14.6 [facility] Comment on above: Performed By: #### L 501.82751, L501.9186, L500.4050, L501.9520, L506.0400, L501.9310, L100.0100, L3100.1850 #### [facility] [address] [place], [address] Hematocrit (Bld) [Volume fraction] 40.5 % Normal 37-47 [facility] Comment on above: Performed By: #### L 501.64937, L501.9186, L500.4050, L501.9520, L506.0400, L501.9310, L100.0100, L3100.1850 #### [facility] [address] [place], [address] Hemoglobin (Bld) [Mass/Vol] 13.0 g/dL Normal 12.0-15.0 [facility] Comment on above: Performed By: #### L 501.57843, L501.9186, L500.4050, L501.9520, L506.0400, L501.9310, L100.0100, L3100.1850 #### [facility] [address] [place], [address] IG% 0.500 Normal 0.0-0.9 [facility] Comment on above: Result Comment: IG% - Immature Granulocytes (promyelocytes, myelocytes and metamyelocytes) > 1% indicates that a LEFT SHIFT is Present. Performed By: #### L 501.96917, L501.9186, L500.4050, L501.9520, L506.0400, L501.9310, L100.0100, L3100.1850 #### [facility] [address] [place], [address] Lymphocytes/100 WBC (Bld) 28.3 % Normal 19-41 [facility] Comment on above: Performed By: #### L 501.51599, L501.9186, L500.4050, L501.9520, L506.0400, L501.9310, L100.0100, L3100.1850 #### [facility] [address] [place], [address] MCH (RBC) [Entitic mass] 31.0 pg Normal 27.0-32.0 [facility] Comment on above: Performed By: #### L 501.98640, L501.9186, L500.4050, L501.9520, L506.0400, L501.9310, L100.0100, L3100.1850 #### [facility] [address] [place], [address] MCHC (RBC) [Mass/Vol] 32.1 g/dL Normal 32-36 [facility] Comment on above: Performed By: #### L 501.81135, L501.9186, L500.4050, L501.9520, L506.0400, L501.9310, L100.0100, L3100.1850 #### [facility] [address] [place], [address] MCV (RBC) [Entitic vol] 96.4 fL Normal 81-99 [facility] Comment on above: Performed By: #### L 501.61960, L501.9186, L500.4050, L501.9520, L506.0400, L501.9310, L100.0100, L3100.1850 #### [facility] [address] [place], [address] Monocytes/100 WBC (Bld) 8.0 % Normal 0-10 [facility] Comment on above: Performed By: #### L 501.57605, L501.9186, L500.4050, L501.9520, L506.0400, L501.9310, L100.0100, L3100.1850 #### [facility] [address] [place], [address] Neutrophils/100 WBC (Bld) 60.8 % Normal 47-70 [facility] Comment on above: Performed By: #### L 501.02282, L501.9186, L500.4050, L501.9520, L506.0400, L501.9310, L100.0100, L3100.1850 #### [facility] [address] [place], [address] Nucleated RBC (Bld) [#/Vol] 0 10*3/uL Normal 0-5 [facility] Comment on above: Performed By: #### L 501.35938, L501.9186, L500.4050, L501.9520, L506.0400, L501.9310, L100.0100, L3100.1850 #### [facility] [address] [place], [address] Platelet mean volume (Bld) [Entitic vol] 11.4 fL Normal 6.2-12.0 [facility] Comment on above: Performed By: #### L 501.19753, L501.9186, L500.4050, L501.9520, L506.0400, L501.9310, L100.0100, L3100.1850 #### [facility] [address] [place], [address] Platelets (Bld) [#/Vol] 258 10*3/uL Normal 150-450 [facility] Comment on above: Performed By: #### L 501.84583, L501.9186, L500.4050, L501.9520, L506.0400, L501.9310, L100.0100, L3100.1850 #### [facility] [address] [place], [address] RBC (Bld) [#/Vol] 4.20 10*6/uL Normal 4.2-5.4 [facility] Comment on above: Performed By: #### L 501.35263, L501.9186, L500.4050, L501.9520, L506.0400, L501.9310, L100.0100, L3100.1850 #### [facility] [address] [place], [address] RDW SD 48.2 fl High 35.1-43.9 [facility] Comment on above: Performed By: #### L 501.52897, L501.9186, L500.4050, L501.9520, L506.0400, L501.9310, L100.0100, L3100.1850 #### [facility] [address] [place], [address] WBC (Bld) [#/Vol] 6.3 10*3/uL Normal 4.4-11.0 [facility] Comment on above: Performed By: #### L 501.30890, L501.9186, L500.4050, L501.9520, L506.0400, L501.9310, L100.0100, L3100.1850 #### [facility] [address] [place], [address] Comprehensive Metabolic Prof ilon 03-20-2025 ALB Normal 3.4-4.8 [facility] Comment on above: Result Comment: This specimen has been REJECTED due to Laboratory criteria: Hemolyzed. OFFICE has been notified of need of recollection. 03/20/25 1322 Renny L White Performed By: #### L 501.94468, L501.9186, L500.4050, L501.9520, L506.0400, L501.9310, L100.0100, L3100.1850 #### [facility] [address] [place], [address] ALK PHOS Normal 35-104 [facility] Comment on above: Result Comment: This specimen has been REJECTED due to Laboratory criteria: Hemolyzed. OFFICE has been notified of need of recollection. 03/20/25 1322 Renny L White Performed By: #### L 501.97488, L501.9186, L500.4050, L501.9520, L506.0400, L501.9310, L100.0100, L3100.1850 #### [facility] [address] [place], [address] ALT Normal <=34 [facility] Comment on above: Result Comment: This specimen has been REJECTED due to Laboratory criteria: Hemolyzed. OFFICE has been notified of need of recollection. 03/20/25 1322 Renny L White Performed By: #### L 501.83957, L501.9186, L500.4050, L501.9520, L506.0400, L501.9310, L100.0100, L3100.1850 #### [facility] [address] [place], [address] AST Normal <=31 [facility] Comment on above: Result Comment: This specimen has been REJECTED due to Laboratory criteria: Hemolyzed. OFFICE has been notified of need of recollection. 03/20/25 1322 Renny L White Performed By: #### L 501.31143, L501.9186, L500.4050, L501.9520, L506.0400, L501.9310, L100.0100, L3100.1850 #### [facility] [address] [place], [address] BUN Normal 4-19 [facility] Comment on above: Result Comment: This specimen has been REJECTED due to Laboratory criteria: Hemolyzed. OFFICE has been notified of need of recollection. 03/20/25 1322 Renny York White Performed By: #### L 501.97336, L501.9186, L500.4050, L501.9520, L506.0400, L501.9310, L100.0100, L3100.1850 #### [facility] [address] [place], [place], [id number] (937) BUN/CRE Normal 10-20 [facility] Comment on above: Result Comment: This specimen has been REJECTED due to Laboratory criteria: Hemolyzed. OFFICE has been notified of need of recollection. 03/20/25 132 Renny York White Performed By: #### L 501.55571, L501.9186, L500.4050, L501.9520, L506.0400, L501.9310, L100.0100, L3100.1850 #### [facility] [address] [place], [place], [id number] (974) Calcium Normal 7.6-11.0 [facility] Comment on above: Result Comment: This specimen has been REJECTED due to Laboratory criteria: Hemolyzed. OFFICE has been notified of need of recollection. 03/20/25 132 Renny York White Performed By: #### L 501.78708, L501.9186, L500.4050, L501.9520, L506.0400, L501.9310, L100.0100, L3100.1850 #### [facility] [address] [place], [place], [id number] (064) CL Normal 98-108 [facility] Comment on above: Result Comment: This specimen has been REJECTED due to Laboratory criteria: Hemolyzed. OFFICE has been notified of need of recollection. 03/20/25 1322 Renny York White Performed By: #### L 501.79499, L501.9186, L500.4050, L501.9520, L506.0400, L501.9310, L100.0100, L3100.1850 #### [facility] [address] [place], [address] CO2 Normal 21.0-32.0 [facility] Comment on above: Result Comment: This specimen has been REJECTED due to Laboratory criteria: Hemolyzed. OFFICE has been notified of need of recollection. 03/20/25 1322 Renny York White Performed By: #### L 501.45012, L501.9186, L500.4050, L501.9520, L506.0400, L501.9310, L100.0100, L3100.1850 #### [facility] [address] [place], [address] CREAT,SERUM Normal 0.70-1.20 [facility] Comment on above: Result Comment: This specimen has been REJECTED due to Laboratory criteria: Hemolyzed. OFFICE has been notified of need of recollection. 03/20/25 1322 Renny York White Performed By: #### L 501.60638, L501.9186, L500.4050, L501.9520, L506.0400, L501.9310, L100.0100, L3100.1850 #### [facility] [address] [place], [address] eGFR Normal >60 [facility] Comment on above: Result Comment: This specimen has been REJECTED due to Laboratory criteria: Hemolyzed. OFFICE has been notified of need of recollection. 03/20/25 1322 Renny York White Performed By: #### L 501.40763, L501.9186, L500.4050, L501.9520, L506.0400, L501.9310, L100.0100, L3100.1850 #### [facility] [address] [place], [address] GAP Normal 5-15 [facility] Comment on above: Result Comment: This specimen has been REJECTED due to Laboratory criteria: Hemolyzed. OFFICE has been notified of need of recollection. 03/20/25 1322 Renny L White Performed By: #### L 501.74342, L501.9186, L500.4050, L501.9520, L506.0400, L501.9310, L100.0100, L3100.1850 #### [facility] [address] [place], [address] GLU Normal 70-99 [facility] Comment on above: Result Comment: This specimen has been REJECTED due to Laboratory criteria: Hemolyzed. OFFICE has been notified of need of recollection. 03/20/25 1322 Renny L White Performed By: #### L 501.62470, L501.9186, L500.4050, L501.9520, L506.0400, L501.9310, L100.0100, L3100.1850 #### [facility] [address] [place], [address] Potassium Normal 3.3-5.1 [facility] Comment on above: Result Comment: This specimen has been REJECTED due to Laboratory criteria: Hemolyzed. OFFICE has been notified of need of recollection. 03/20/25 1322 Renny L White Performed By: #### L 501.25026, L501.9186, L500.4050, L501.9520, L506.0400, L501.9310, L100.0100, L3100.1850 #### [facility] [address] [place], [address] T BILI Normal 0.00-1.30 [facility] Comment on above: Result Comment: This specimen has been REJECTED due to Laboratory criteria: Hemolyzed. OFFICE has been notified of need of recollection. 03/20/25 1322 Renny York White Performed By: #### L 501.88014, L501.9186, L500.4050, L501.9520, L506.0400, L501.9310, L100.0100, L3100.1850 #### [facility] [address] [place], [address] T PROT Normal 5.9-8.4 [facility] Comment on above: Result Comment: This specimen has been REJECTED due to Laboratory criteria: Hemolyzed. OFFICE has been notified of need of recollection. 03/20/25 132 Renny York White Performed By: #### L 501.55066, L501.9186, L500.4050, L501.9520, L506.0400, L501.9310, L100.0100, L3100.1850 #### [facility] [address] [place], [address] Comprehensive Metabolic Profil Normal 133-145 [facility] Comment on above: Result Comment: This specimen has been REJECTED due to Laboratory criteria: Hemolyzed. OFFICE has been notified of need of recollection. 03/20/25 132 Renny York White Performed By: #### L 501.08851, L501.9186, L500.4050, L501.9520, L506.0400, L501.9310, L100.0100, L3100.1850 #### [facility] [address] [place], [address] Eosinophil percentageOrdered By: Chela Lynn on 03-20-2025 Eosinophils/100 WBC (Bld) 1.9 % 0-5 [facility] Erythrocyte distribution wid th ratioOrdered By: Chela Lynn on 03-20-2025 Erythrocyte distribution width (RBC) [Ratio] 13.7 % 11.6-14.6 [facility] Erythrocyte distribution wid th standard deviationOrdered By: Chela Lynn on 03-20-2025 Erythrocyte distribution width (RBC) [Ratio] 48.2 fl High 35.1-43.9 [facility] Hematocrit Auto (Bld) [Volum e fraction]Ordered By: Chela Lynn on 03-20-2025 Hematocrit (Bld) [Volume fraction] 40.5 % 37-47 [facility] Hemoglobin measurementOrdere d By: Chela Lynn on 03-20-2025 Hemoglobin (Bld) [Mass/Vol] 13.0 g/dL 12.0-15.0 [facility] Immature granulocytes/100 WB C Auto (Bld)Ordered By: Chela Lynn on 03-20-2025 Immature granulocytes/100 WBC (Bld) 0.500 % 0.0-0.9 [facility] Comment on above: IG% - Immature Granu locytes (promyelocytes, myelocytes and metamyelocytes) > 1% indicates that a LEFT SHIFT is Present. MCV (mean corpuscular volume ) determinationOrdered By: Chela Lynn on 03-20-2025 MCV (RBC) [Entitic vol] 96.4 fL 81-99 [facility] Mean corpuscular hemoglobin (MCH) determinationOrdered By: Chela Lynn on 03-20-2025 MCH (RBC) [Entitic mass] 31.0 pg 27.0-32.0 [facility] Mean corpuscular hemoglobin concentration (MCHC) determinationOrdered By: Chela Lynn on 03-20-2025 MCHC (RBC) [Mass/Vol] 32.1 g/dL 32-36 [facility] Mean platelet volume determi nationOrdered By: Chela Lynn on 03-20-2025 Platelet mean volume (Bld) [Entitic vol] 11.4 fL 6.2-12.0 [facility] Monocyte percentageOrdered B y: Chela Lynn on 03-20-2025 Monocytes/100 WBC (Bld) 8.0 % 0-10 [facility] Neutrophil percentageOrdered By: Chela Lynn on 03-20-2025 Neutrophils/100 WBC (Bld) 60.8 % 47-70 [facility] Nucleated red blood cell per centageOrdered By: Chela Lynn on 03-20-2025 Nucleated RBC/100 WBC (Bld) [Ratio] 0 % 0-5 [facility] Platelet countOrdered By: Ruperto Loweryfilomena on 03-20-2025 Platelets (Bld) [#/Vol] 258 10*3/uL 150-450 [facility] RBC Auto (Bld) [#/Vol]Ordere d By: Chela Shane on 03-20-2025 RBC (Bld) [#/Vol] 4.20 10*6/uL 4.2-5.4 [facility] White blood cell (WBC) count Ordered By: Chela Lynn on 03-20-2025 WBC (Bld) [#/Vol] 6.3 10*3/uL 4.4-11.0 [facility] CNPNon 10-15-2024 [facility] Telephone ([facility]) ----- WALDEMAR HUDSON ([id number]) 1955 F Date Time Provider Department 10/15/24 BOWEN LOPEZ [facility] During your visit today, we recorded the following information about you: Sunshine Alfred RN 10/15/2024 10:07 AM Signed ALS clinic pre-check in sent to patient. Jayy Alfred RN, BSN Allergies As of Date: 10/15/2024 Noted Allergy Reaction BACLOFEN 03/17/2024 2 - Rash 5 - Intolerance Comments: Headache, very tired MALARONE (ATOVAQUONE-PROGUANIL) 09/10/2015 4 - Hives THIMERSOL (THIMEROSAL) 04/26/2009 Comments: Makes eyes red- thimerosal in contacts Date Reviewed: 06/16/2024 Reviewed by: Carmenza Jacobs RN - Fully Assessed Reason for Visit: ALS Clinic [Other] Prescriptions as of 10/20/2024 - amoxicillin (AMOXIL) 500 mg capsule Take 2 capsules by mouth every 12 hours. - Black Cohosh 40 mg cap Take 1 capsule by mouth two times a day. - CHLORELLA ALGAE, BULK, MISC Take 6 tablets by mouth once daily. - CIERA 0.075 mg/24 hr patch Apply 1 Patch as directed two times a week. - furosemide (LASIX) 20 mg tablet Take 1 tablet by mouth every 12 hours. - levOCARNitine (CARNITOR) 500 mg tab tablet Take 500 mg by mouth two times a day. - liothyronine (CYTOMEL) 5 mcg tablet Take 1 tablet by mouth once daily. - magnesium oxide 200 mg magnesium chew Take 200 mg by mouth once daily. magnesium chew - AUGUSTO D ARCO ORAL Take 60 mL by mouth once daily. tea - progesterone micronized (PROMETRIUM) 200 mg capsule Take 200 mg by mouth daily at bedtime. - VITAMIN B COMPLEX ORAL Take 1 capsule by mouth once daily. - METHYLENE BLUE, BULK-SOLID, MISC 1 capsule two times a day. - procaine HCl (PROCAINE, BULK, MISC) one time a week. IV infusion - NUEDEXTA 20-10 mg capsule Take 1 capsule by mouth three times a day. - rifAMPin (RIFADIN) 300 mg capsule Take 300 mg by mouth once daily. - Magnesium 200 mg tab Take 1 tablet by mouth once daily. - levothyroxine (SYNTHROID) 112 mcg tablet - nystatin (MYCOSTATIN, NILSTAT) 500,000 unit tab Take 2 tablets by mouth three times a day with meals. - TherBiotic Complete 120 Ct. (Klaire/Prothera) Take 1 capsule by mouth once daily. - Fish Oil-[place]-3 Fatty Acids 300-1,000 mg cap Take by mouth. 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] 02/27/2011 Skin lesion [L98.9] 02/28/2011 Other musculoskeletal symptoms referable to anna*07/14/2013 Special screening for malignant neoplasms, colo*10/01/2014 Dysphagia, unspecified(787.20) [R13.10] 10/01/2014 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 08/19/2024 GERD without esophagitis [K21.9] 09/06/2016 History of thyroid cancer [Z85.850] 09/06/2016 Hypothyroidism [E03.9] 09/06/2016 Foot cramps [R25.2] 09/06/2016 Menopausal and postmenopausal disorder [N95.9] 09/06/2016 Fatigue [R53.83] 09/06/2016 Vitamin D deficiency [E55.9] 09/06/2016 Rectal itching [L29.0] 02/26/2017 Sleep disturbance [G47.9] 04/22/2018 Impaired ambulation [R26.2] 10/03/2023 08/19/2024 Muscle spasticity [M62.838] 10/03/2023 08/19/2024 Impaired flexibility of lower extremity [R29.89*10/03/2023 08/19/2024 Abnormality of gait [R26.9] 10/03/2023 08/19/2024 Right leg pain [M79.604] 10/03/2023 08/19/2024 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 The insurance company phone number is [phone] and fax number is [phone]. The requested medication is Nuedexta. The pharmacy phone number is [phone]. Aliyah Rhodes RN 10/14/2024 11:03 AM Signed Completed questions for PA for nuedexta on cover my meds WALDEMAR HUDSON (Jones: [id number]) Rx #: [id number] Nuedexta 20-10MG capsules Form [employer] Electronic PA Form (2016 NCPDP) Created 5 hours ago Sent to Plan 2 minutes ago Plan Response 2 minutes ago Submit Clinical Questions 1 minute ago Determination Wait for Determination Please wait for [employer] NCPDP 2016 to return a determination. Ofice to get determination Aliyah ABERNATHYN [facility] Aliyah Rhodes RN 10/15/2024 2:47 PM Signed WALDEMAR HUDSON (Jones: [id number]) Rx #: [id number] Nuedexta 20-10MG capsules Form [employer] Electronic PA Form (2016 NCPDP) Created 1 day ago Sent to Plan 1 day ago Plan Response 1 day ago Submit Clinical Questions 1 day ago Determination Favorable 4 hours ago Message from Plan Your request has been approved. Authorization Expiration Date: September 02, 2025. Aliyah ABERNATHYN [facility] Allergies As of Date: 10/14/2024 Noted Allergy Reaction BACLOFEN 03/17/2024 2 - Rash 5 - Intolerance Comments: Headache, very tired MALARONE (ATOVAQUONE-PROGUANIL) 09/10/2015 4 - Hives THIMERSOL (THIMEROSAL) 04/26/2009 Comments: Makes eyes red- thimerosal in contacts Date Reviewed: 06/16/2024 Reviewed by: Carmenza Jacobs RN - Fully Assessed Reason for Visit: Medication Authorization [[id number]] Cmt: Nuedexta 20-10mg Prescriptions as of 10/23/2024 - amoxicillin (AMOXIL) 500 mg capsule Take 2 capsules by mouth every 12 hours. - Black Cohosh 40 mg cap Take 1 capsule by mouth two times a day. - CHLORELLA ALGAE, BULK, MISC Take 6 tablets by mouth once daily. - CIERA 0.075 mg/24 hr patch Apply 1 Patch as directed two times a week. - furosemide (LASIX) 20 mg tablet Take 1 tablet by mouth every 12 hours. - levOCARNitine (CARNITOR) 500 mg tab tablet Take 500 mg by mouth two times a day. - liothyronine (CYTOMEL) 5 mcg tablet Take 1 tablet by mouth once daily. - magnesium oxide 200 mg magnesium chew Take 200 mg by mouth once daily. magnesium chew - AUGUSTO D ARCO ORAL Take 60 mL by mouth once daily. tea - progesterone micronized (PROMETRIUM) 200 mg capsule Take 200 mg by mouth daily at bedtime. - VITAMIN B COMPLEX ORAL Take 1 capsule by mouth once daily. - METHYLENE BLUE, BULK-SOLID, MISC 1 capsule two times a day. - procaine HCl (PROCAINE, BULK, MISC) one time a week. IV infusion - NUEDEXTA 20-10 mg capsule Take 1 capsule by mouth three times a day. - rifAMPin (RIFADIN) 300 mg capsule Take 300 mg by mouth once daily. - Magnesium 200 mg tab Take 1 tablet by mouth once daily. - levothyroxine (SYNTHROID) 112 mcg tablet - nystatin (MYCOSTATIN, NILSTAT) 500,000 unit tab Take 2 tablets by mouth three times a day with meals. - TherBiotic Complete 120 Ct. (Klaire/Prothera) Take 1 capsule by mouth once daily. - Fish Oil-[place]-3 Fatty Acids 300-1,000 mg cap Take by mouth. - Meriva-SR (Monae) decrease inflammation/pain/gut healing Take 1-2 capsules two times daily Problem List As Of Date 10/14/2024 Noted Resolved PERS HX OF THYROID MALIGNANCY [Z85.850] 05/24/2005 ESOPHAGEAL REFLUX [K21.9] 05/24/2005 FX METATARSAL-CLOSED [S92.309A] 07/12/2005 MALIGN NEOPL THYROID [C73] 11/12/2005 CHOLELITH W CHOLECYS NEC [K80.10] 01/25/2006 GASTRITIS ANTRAL( W/O Hemorrhage) [K29.60] 03/09/2006 SPRAIN SHOULDER/ARM NOS [[id number]] 06/20/2006 FX PHALANX, FOOT-CLOSED [S92.919A] 08/13/2006 DYSMETABOLIC SYNDROME X [E88.810] 05/21/2007 SPRAIN NOS [T14.8XXA] 08/19/2007 Congenital pes planus [Q66.50] 02/27/2011 Skin lesion [L98.9] 02/28/2011 Other musculoskeletal symptoms referable to anna*07/14/2013 Special screening for malignant neoplasms, colo*10/01/2014 Dysphagia, unspecified(787.20) [R13.10] 10/01/2014 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 Normal [facility] [facility] 10-03-2024 Free T3 [Mass/Vol] 3.7 pg/mL Normal 2.18-3.98 [facility] Comment on above: Order Comment: HAP Performed By: #### L 501.90200, L501.8786, L500.4050, L501.9520, L506.0400, L501.9310, L100.0100, L3100.1850 #### [facility] [address] [place], [place], [id number] Haptoglobinon 10-03-2024 HAPTOGLOBIN 144 mg/dL Normal 37-355 [facility] Comment on above: Result Comment: Perf ormed at: [facility] Lab[address] [id number] Wedger: Petey Ibarra PhD, Phone: [phone] Performed By: #### L 501.98269, L501.9186, L500.4050, L501.9520, L506.0400, L501.9310, L100.0100, L3100.1850 #### [facility] [address] [place], [place], [id number] T4 Free Directon 10-03-2024 T4 FREE DIRECT 1.21 ng/dL Normal 0.76-1.46 [facility] Comment on above: Order Comment: HAP Performed By: #### L 501.18730, L501.9186, L500.4050, L501.9520, L506.0400, L501.9310, L100.0100, L3100.1850 #### [facility] [address] [place], [place], [id number] CBC W/Diff, Automatedon 09-04 Absolute Lymph 1.01 X10 3/uL Normal 0.83-4.51 [facility] Comment on above: Performed By: #### L 501.50346, L501.9186, L500.4050, L501.9520, L506.0400, L501.9310, L100.0100, L3100.1850 #### [facility] [address] [place], [place], [id number] Absolute Neut 3.3 X10 3/uL Normal 2.0-7.7 [facility] Comment on above: Performed By: #### L 501.49513, L501.9186, L500.4050, L501.9520, L506.0400, L501.9310, L100.0100, L3100.1850 #### [facility] [address] [place], [address] Basophils/100 WBC (Bld) 0.6 % Normal 0-1 [facility] Comment on above: Performed By: #### L 501.29327, L501.9186, L500.4050, L501.9520, L506.0400, L501.9310, L100.0100, L3100.1850 #### [facility] [address] [place], [address] Eosinophils/100 WBC (Bld) 1.3 % Normal 0-5 [facility] Comment on above: Performed By: #### L 501.12710, L501.9186, L500.4050, L501.9520, L506.0400, L501.9310, L100.0100, L3100.1850 #### [facility] [address] [place], [address] Erythrocyte distribution width (RBC) [Ratio] 12.6 % Normal 11.6-14.6 [facility] Comment on above: Performed By: #### L 501.78945, L501.9186, L500.4050, L501.9520, L506.0400, L501.9310, L100.0100, L3100.1850 #### [facility] [address] [place], [address] Hematocrit (Bld) [Volume fraction] 35.4 % Low 37-47 [facility] Comment on above: Performed By: #### L 501.67851, L501.9186, L500.4050, L501.9520, L506.0400, L501.9310, L100.0100, L3100.1850 #### [facility] [address] [place], [address] Hemoglobin (Bld) [Mass/Vol] 11.4 g/dL Low 12.0-15.0 [facility] Comment on above: Performed By: #### L 501.95913, L501.9186, L500.4050, L501.9520, L506.0400, L501.9310, L100.0100, L3100.1850 #### [facility] [address] [place], [address] IG% 0.400 Normal 0.0-0.9 [facility] Comment on above: Result Comment: IG% - Immature Granulocytes (promyelocytes, myelocytes and metamyelocytes) > 1% indicates that a LEFT SHIFT is Present. Performed By: #### L 501.50772, L501.9186, L500.4050, L501.9520, L506.0400, L501.9310, L100.0100, L3100.1850 #### [facility] [address] [place], [address] Lymphocytes/100 WBC (Bld) 21.1 % Normal 19-41 [facility] Comment on above: Performed By: #### L 501.32753, L501.9186, L500.4050, L501.9520, L506.0400, L501.9310, L100.0100, L3100.1850 #### [facility] [address] [place], [address] MCH (RBC) [Entitic mass] 34.2 pg High 27.0-32.0 [facility] Comment on above: Performed By: #### L 501.01348, L501.9186, L500.4050, L501.9520, L506.0400, L501.9310, L100.0100, L3100.1850 #### [facility] [address] [place], [address] MCHC (RBC) [Mass/Vol] 32.2 g/dL Normal 32-36 [facility] Comment on above: Performed By: #### L 501.79860, L501.9186, L500.4050, L501.9520, L506.0400, L501.9310, L100.0100, L3100.1850 #### [facility] [address] [place], [address] MCV (RBC) [Entitic vol] 106.3 fL High 81-99 [facility] Comment on above: Performed By: #### L 501.58010, L501.9186, L500.4050, L501.9520, L506.0400, L501.9310, L100.0100, L3100.1850 #### [facility] [address] [place], [address] Monocytes/100 WBC (Bld) 8.4 % Normal 0-10 [facility] Comment on above: Performed By: #### L 501.94327, L501.9186, L500.4050, L501.9520, L506.0400, L501.9310, L100.0100, L3100.1850 #### [facility] [address] [place], [address] Neutrophils/100 WBC (Bld) 68.2 % Normal 47-70 [facility] Comment on above: Performed By: #### L 501.59777, L501.9186, L500.4050, L501.9520, L506.0400, L501.9310, L100.0100, L3100.1850 #### [facility] [address] [place], [address] Nucleated RBC (Bld) [#/Vol] 0 10*3/uL Normal 0-5 [facility] Comment on above: Performed By: #### L 501.09270, L501.9186, L500.4050, L501.9520, L506.0400, L501.9310, L100.0100, L3100.1850 #### [facility] [address] [place], [address] Platelet mean volume (Bld) [Entitic vol] 11.6 fL Normal 6.2-12.0 [facility] Comment on above: Performed By: #### L 501.20486, L501.9186, L500.4050, L501.9520, L506.0400, L501.9310, L100.0100, L3100.1850 #### [facility] [address] [place], [address] Platelets (Bld) [#/Vol] 163 10*3/uL Normal 150-450 [facility] Comment on above: Performed By: #### L 501.78793, L501.9186, L500.4050, L501.9520, L506.0400, L501.9310, L100.0100, L3100.1850 #### [facility] [address] [place], [address] RBC (Bld) [#/Vol] 3.33 10*6/uL Low 4.2-5.4 [facility] Comment on above: Performed By: #### L 501.91145, L501.9186, L500.4050, L501.9520, L506.0400, L501.9310, L100.0100, L3100.1850 #### [facility] [address] [place], [address] RDW SD 49.1 fl High 35.1-43.9 [facility] Comment on above: Performed By: #### L 501.78741, L501.9186, L500.4050, L501.9520, L506.0400, L501.9310, L100.0100, L3100.1850 #### [facility] [address] [place], [address] WBC (Bld) [#/Vol] 4.8 10*3/uL Normal 4.4-11.0 [facility] Comment on above: Performed By: #### L 501.78593, L501.9186, L500.4050, L501.9520, L506.0400, L501.9310, L100.0100, L3100.1850 #### [facility] [address] [place], [address] Comprehensive Metabolic Prof ilon 10-01-2024 Albumin [Mass/Vol] 3.5 g/dL Normal 3.2-5.0 [facility] Comment on above: Order Comment: HAP Performed By: #### L 501.44414, L501.9186, L500.4050, L501.9520, L506.0400, L501.9310, L100.0100, L3100.1850 #### [facility] [address] [place], [address] Albumin/Globulin [Mass ratio] 1.2 {ratio} Normal 0.9-2.4 [facility] Comment on above: Order Comment: HAP Performed By: #### L 501.30695, L501.9186, L500.4050, L501.9520, L506.0400, L501.9310, L100.0100, L3100.1850 #### [facility] [address] [place], [address] ALK P 54 U/L Normal 45-117 [facility] Comment on above: Order Comment: HAP Performed By: #### L 501.39718, L501.9186, L500.4050, L501.9520, L506.0400, L501.9310, L100.0100, L3100.1850 #### [facility] [address] [place], [address] ALT [Catalytic activity/Vol] 27 U/L Normal 13-56 [facility] Comment on above: Order Comment: HAP Performed By: #### L 501.90300, L501.9186, L500.4050, L501.9520, L506.0400, L501.9310, L100.0100, L3100.1850 #### [facility] [address] [place], [address] AST [Catalytic activity/Vol] 55 U/L High 15-37 [facility] Comment on above: Order Comment: HAP Result Comment: Mode rate Hemolysis, Result may be falsely increased. Performed By: #### L 501.79513, L501.9186, L500.4050, L501.9520, L506.0400, L501.9310, L100.0100, L3100.1850 #### [facility] [address] [place], [address] Bilirubin [Mass/Vol] 0.30 mg/dL Normal 0.20-1.00 [facility] Comment on above: Order Comment: HAP Result Comment: For patients on eltrombopag therapy, use of Dimension [place] TBIL is not recommended. Performed By: #### L 501.96044, L501.9186, L500.4050, L501.9520, L506.0400, L501.9310, L100.0100, L3100.1850 #### [facility] [address] [place], [address] BUN/CRE 26.3 RATIO High 10-20 [facility] Comment on above: Order Comment: HAP Performed By: #### L 501.47916, L501.9186, L500.4050, L501.9520, L506.0400, L501.9310, L100.0100, L3100.1850 #### [facility] [address] [place], [address] CA,Total 9.0 mg/dL Normal 8.5-10.1 [facility] Comment on above: Order Comment: HAP Performed By: #### L 501.64433, L501.9186, L500.4050, L501.9520, L506.0400, L501.9310, L100.0100, L3100.1850 #### [facility] [address] [place], [address] Chloride [Moles/Vol] 106 mmol/L Normal 98-107 [facility] Comment on above: Order Comment: HAP Performed By: #### L 501.50170, L501.9186, L500.4050, L501.9520, L506.0400, L501.9310, L100.0100, L3100.1850 #### [facility] [address] [place], [place], [id number] (169) CO2 [Moles/Vol] 29.0 mmol/L Normal 21.0-32.0 [facility] Comment on above: Order Comment: HAP Performed By: #### L 501.98905, L501.9186, L500.4050, L501.9520, L506.0400, L501.9310, L100.0100, L3100.1850 #### [facility] [address] [place], [address] Creatinine [Mass/Vol] 0.53 mg/dL Low 0.55-1.02 [facility] Comment on above: Order Comment: HAP Result Comment: The validity of the calculated GFR GFRAA in patients over 70 years has not been determined. Clinical correlation is essential. Performed By: #### L 501.35866, L501.9186, L500.4050, L501.9520, L506.0400, L501.9310, L100.0100, L3100.1850 #### [facility] [address] [place], [address] EST GFR - AA 145 mL/min Normal >60 [facility] Comment on above: Order Comment: HAP Result Comment: Afri can Nepalese GFR Calc Performed By: #### L 501.82348, L501.9186, L500.4050, L501.9520, L506.0400, L501.9310, L100.0100, L3100.1850 #### [facility] [address] [place], [address] GAP 6 Normal 5-15 [facility] Comment on above: Order Comment: HAP Performed By: #### L 501.64321, L501.9186, L500.4050, L501.9520, L506.0400, L501.9310, L100.0100, L3100.1850 #### [facility] [address] [place], [address] GFR/1.73 sq M.predicted among non-blacks MDRD (S/P/Bld) [Vol rate/Area] 120 mL/min/{1.73_m2} Normal >60 [facility] Comment on above: Order Comment: HAP Result Comment: Non- GFR Calc Performed By: #### L 501.83570, L501.9186, L500.4050, L501.9520, L506.0400, L501.9310, L100.0100, L3100.1850 #### [facility] [address] [place], [place], [id number] (300) Globulin (S) [Mass/Vol] 2.9 g/dL Normal 2.2-4.2 [facility] Comment on above: Order Comment: HAP Performed By: #### L 501.01443, L501.9186, L500.4050, L501.9520, L506.0400, L501.9310, L100.0100, L3100.1850 #### [facility] [address] [place], [place], [id number] (887) Glucose [Mass/Vol] 101 mg/dL Normal 74-106 [facility] Comment on above: Order Comment: HAP Result Comment: Fast ing Glucose result from 100 to 125 mg/dL suggests IMPAIRED HOMEOSTASIS per A.D.A. criteria. Performed By: #### L 501.06308, L501.9186, L500.4050, L501.9520, L506.0400, L501.9310, L100.0100, L3100.1850 #### [facility] [address] [place], [address] Potassium [Moles/Vol] 4.6 mmol/L Normal 3.5-5.1 [facility] Comment on above: Order Comment: HAP Result Comment: Mode rate Hemolysis, Result may be falsely increased. Performed By: #### L 501.28421, L501.9186, L500.4050, L501.9520, L506.0400, L501.9310, L100.0100, L3100.1850 #### [facility] [address] [place], [address] Sodium [Moles/Vol] 141 mmol/L Normal 136-145 [facility] Comment on above: Order Comment: HAP Performed By: #### L 501.41148, L501.9186, L500.4050, L501.9520, L506.0400, L501.9310, L100.0100, L3100.1850 #### [facility] [address] [place], [address] T PROT 6.4 g/dL Normal 6.4-8.2 [facility] Comment on above: Order Comment: HAP Performed By: #### L 501.39269, L501.9186, L500.4050, L501.9520, L506.0400, L501.9310, L100.0100, L3100.1850 #### [facility] [address] [place], [address] Urea nitrogen [Mass/Vol] 14 mg/dL Normal 7-18 [facility] Comment on above: Order Comment: HAP Performed By: #### L 501.35180, L501.9186, L500.4050, L501.9520, L506.0400, L501.9310, L100.0100, L3100.1850 #### [facility] [address] [place], [address] T3 Total - Triiodothyronineo n 10-01-2024 T3 Total 1.16 ng/mL Normal 0.6-1.81 [facility] Comment on above: Performed By: #### L 501.89351, L501.9186, L500.4050, L501.9520, L506.0400, L501.9310, L100.0100, L3100.1850 #### [facility] [address] [place], [place], [id number] T4 Total, Thyroxinon 025 T4 [Mass/Vol] 10.8 ug/dL Normal 4.8-13.9 [facility] Comment on above: Order Comment: HAP Performed By: #### L 501.18973, L501.9186, L500.4050, L501.9520, L506.0400, L501.9310, L100.0100, L3100.1850 #### [facility] [address] [place], [place], [id number] Thyroid Stim Hormone (TSH)on 10-01-2024 TSH 1.260 uIU/mL Normal 0.358-3.74 0 [facility] Comment on above: Order Comment: HAP Performed By: #### L 501.28496, L501.9186, L500.4050, L501.9520, L506.0400, L501.9310, L100.0100, L3100.1850 #### [facility] [address] [place], [address] Haptoglobinon 09-07-2024 HAPTOGLOBIN < 10 Low 37-355 [facility] Comment on above: Result Comment: Perf ormed at: [facility] [address] [id number] Wedger: Petey Ibarra PhD, Phone: [phone] Performed By: #### L 501.87597, L501.9186, L500.4050, L501.9520, L506.0400, L501.9310, L100.0100, L3100.1850 #### [facility] [address] [place], [address] CBC W/Diff, Automatedon 01-0 -2024 Absolute Lymph 1.56 X10 3/uL Normal 0.83-4.51 [facility] Comment on above: Performed By: #### L 3100.1850, L506.0400, L501.27831, L500.4050, L501.9520, L100.0100 #### [facility] [address] [place], [address] Absolute Neut 3.2 X10 3/uL Normal 2.0-7.7 [facility] Comment on above: Performed By: #### L 3100.1850, L506.0400, L501.04661, L500.4050, L501.9520, L100.0100 #### [facility] [address] [place], [address] Basophils/100 WBC (Bld) 0.7 % Normal 0-1 [facility] Comment on above: Performed By: #### L 3100.1850, L506.0400, L501.27160, L500.4050, L501.9520, L100.0100 #### [facility] [address] [place], [address] Eosinophils/100 WBC (Bld) 2.2 % Normal 0-5 [facility] Comment on above: Performed By: #### L 3100.1850, L506.0400, L501.28475, L500.4050, L501.9520, L100.0100 #### [facility] [address] [place], [address] Erythrocyte distribution width (RBC) [Ratio] 14.8 % High 11.6-14.6 [facility] Comment on above: Performed By: #### L 3100.1850, L506.0400, L501.77506, L500.4050, L501.9520, L100.0100 #### [facility] [address] [place], [address] Hematocrit (Bld) [Volume fraction] 37.0 % Normal 37-47 [facility] Comment on above: Performed By: #### L 3100.1850, L506.0400, L501.49141, L500.4050, L501.9520, L100.0100 #### [facility] [address] [place], [address] Hemoglobin (Bld) [Mass/Vol] 11.8 g/dL Low 12.0-15.0 [facility] Comment on above: Performed By: #### L 3100.1850, L506.0400, L501.17868, L500.4050, L501.9520, L100.0100 #### [facility] [address] [place], [address] IG% 0.500 Normal 0.0-0.9 [facility] Comment on above: Result Comment: IG% - Immature Granulocytes (promyelocytes, myelocytes and metamyelocytes) > 1% indicates that a LEFT SHIFT is Present. Performed By: #### L 3100.1850, L506.0400, L501.33023, L500.4050, L501.9520, L100.0100 #### [facility] [address] [place], [address] Lymphocytes/100 WBC (Bld) 28.4 % Normal 19-41 [facility] Comment on above: Performed By: #### L 3100.1850, L506.0400, L501.79969, L500.4050, L501.9520, L100.0100 #### [facility] [address] [place], [address] MCH (RBC) [Entitic mass] 34.3 pg High 27.0-32.0 [facility] Comment on above: Performed By: #### L 3100.1850, L506.0400, L501.73052, L500.4050, L501.9520, L100.0100 #### [facility] [address] [place], [address] MCHC (RBC) [Mass/Vol] 31.9 g/dL Low 32-36 [facility] Comment on above: Performed By: #### L 3100.1850, L506.0400, L501.02020, L500.4050, L501.9520, L100.0100 #### [facility] [address] [place], [address] MCV (RBC) [Entitic vol] 107.6 fL High 81-99 [facility] Comment on above: Performed By: #### L 3100.1850, L506.0400, L501.21971, L500.4050, L501.9520, L100.0100 #### [facility] [address] [place], [address] Monocytes/100 WBC (Bld) 9.3 % Normal 0-10 [facility] Comment on above: Performed By: #### L 3100.1850, L506.0400, L501.11911, L500.4050, L501.9520, L100.0100 #### [facility] [address] [place], [address] Neutrophils/100 WBC (Bld) 58.9 % Normal 47-70 [facility] Comment on above: Performed By: #### L 3100.1850, L506.0400, L501.28699, L500.4050, L501.9520, L100.0100 #### [facility] [address] [place], [address] Nucleated RBC (Bld) [#/Vol] 0 10*3/uL Normal 0-5 [facility] Comment on above: Performed By: #### L 3100.1850, L506.0400, L501.53088, L500.4050, L501.9520, L100.0100 #### [facility] [address] [place], [address] Platelet mean volume (Bld) [Entitic vol] 11.2 fL Normal 6.2-12.0 [facility] Comment on above: Performed By: #### L 3100.1850, L506.0400, L501.31207, L500.4050, L501.9520, L100.0100 #### [facility] [address] [place], [address] Platelets (Bld) [#/Vol] 193 10*3/uL Normal 150-450 [facility] Comment on above: Performed By: #### L 3100.1850, L506.0400, L501.04827, L500.4050, L501.9520, L100.0100 #### [facility] [address] [place], [address] RBC (Bld) [#/Vol] 3.44 10*6/uL Low 4.2-5.4 [facility] Comment on above: Performed By: #### L 3100.1850, L506.0400, L501.96698, L500.4050, L501.9520, L100.0100 #### [facility] [address] [place], [address] RDW SD 59.2 fl High 35.1-43.9 [facility] Comment on above: Performed By: #### L 3100.1850, L506.0400, L501.11190, L500.4050, L501.9520, L100.0100 #### [facility] [address] [place], [address] WBC (Bld) [#/Vol] 5.5 10*3/uL Normal 4.4-11.0 [facility] Comment on above: Performed By: #### L 3100.1850, L506.0400, L501.10842, L500.4050, L501.9520, L100.0100 #### [facility] [address] [place], [address] Comprehensive Metabolic Prof ilon 09-05-2024 Albumin [Mass/Vol] 3.6 g/dL Normal 3.2-5.0 [facility] Comment on above: Performed By: #### L 3100.1850, L506.0400, L501.49523, L500.4050, L501.9520, L100.0100 #### [facility] [address] [place], [address] Albumin/Globulin [Mass ratio] 1.4 {ratio} Normal 0.9-2.4 [facility] Comment on above: Performed By: #### L 3100.1850, L506.0400, L501.12900, L500.4050, L501.9520, L100.0100 #### [facility] [address] [place], [address] ALK P 74 U/L Normal 45-117 [facility] Comment on above: Performed By: #### L 3100.1850, L506.0400, L501.13664, L500.4050, L501.9520, L100.0100 #### [facility] [address] [place], [address] ALT [Catalytic activity/Vol] 22 U/L Normal 13-56 [facility] Comment on above: Performed By: #### L 3100.1850, L506.0400, L501.18402, L500.4050, L501.9520, L100.0100 #### [facility] [address] [place], [address] AST [Catalytic activity/Vol] 16 U/L Normal 15-37 [facility] Comment on above: Performed By: #### L 3100.1850, L506.0400, L501.62972, L500.4050, L501.9520, L100.0100 #### [facility] [address] [place], [address] Bilirubin [Mass/Vol] 1.00 mg/dL Normal 0.20-1.00 [facility] Comment on above: Result Comment: For patients on eltrombopag therapy, use of Dimension [place] TBIL is not recommended. Performed By: #### L 3100.1850, L506.0400, L501.26224, L500.4050, L501.9520, L100.0100 #### [facility] [address] [place], [address] BUN/CRE 35.2 RATIO High 10-20 [facility] Comment on above: Performed By: #### L 3100.1850, L506.0400, L501.95906, L500.4050, L501.9520, L100.0100 #### [facility] [address] [place], [address] CA,Total 9.0 mg/dL Normal 8.5-10.1 [facility] Comment on above: Performed By: #### L 3100.1850, L506.0400, L501.55712, L500.4050, L501.9520, L100.0100 #### [facility] [address] [place], [address] Chloride [Moles/Vol] 108 mmol/L High 98-107 [facility] Comment on above: Performed By: #### L 3100.1850, L506.0400, L501.28041, L500.4050, L501.9520, L100.0100 #### [facility] [address] [place], [address] CO2 [Moles/Vol] 31.0 mmol/L Normal 21.0-32.0 [facility] Comment on above: Performed By: #### L 3100.1850, L506.0400, L501.48757, L500.4050, L501.9520, L100.0100 #### [facility] [address] [place], [address] Creatinine [Mass/Vol] 0.60 mg/dL Normal 0.55-1.02 [facility] Comment on above: Result Comment: The validity of the calculated GFR GFRAA in patients over 70 years has not been determined. Clinical correlation is essential. Performed By: #### L 3100.1850, L506.0400, L501.05000, L500.4050, L501.9520, L100.0100 #### [facility] [address] [place], [address] EST GFR - AA 128 mL/min Normal >60 [facility] Comment on above: Result Comment: Afri can [place] GFR Calc Performed By: #### L 3100.1850, L506.0400, L501.43185, L500.4050, L501.9520, L100.0100 #### [facility] [address] [place], [address] GAP 4 Low 5-15 [facility] Comment on above: Performed By: #### L 3100.1850, L506.0400, L501.10668, L500.4050, L501.9520, L100.0100 #### [facility] [address] [place], [address] GFR/1.73 sq M.predicted among non-blacks MDRD (S/P/Bld) [Vol rate/Area] 105 mL/min/{1.73_m2} Normal >60 [facility] Comment on above: Result Comment: Non- GFR Calc Performed By: #### L 3100.1850, L506.0400, L501.89334, L500.4050, L501.9520, L100.0100 #### [facility] [address] [place], [address] Globulin (S) [Mass/Vol] 2.5 g/dL Normal 2.2-4.2 [facility] Comment on above: Performed By: #### L 3100.1850, L506.0400, L501.93981, L500.4050, L501.9520, L100.0100 #### [facility] [address] [place], [address] Glucose [Mass/Vol] 99 mg/dL Normal 74-106 [facility] Comment on above: Performed By: #### L 3100.1850, L506.0400, L501.00079, L500.4050, L501.9520, L100.0100 #### [facility] [address] [place], [address] Potassium [Moles/Vol] 4.0 mmol/L Normal 3.5-5.1 [facility] Comment on above: Performed By: #### L 3100.1850, L506.0400, L501.72678, L500.4050, L501.9520, L100.0100 #### [facility] [address] [place], [address] Sodium [Moles/Vol] 143 mmol/L Normal 136-145 [facility] Comment on above: Performed By: #### L 3100.1850, L506.0400, L501.61710, L500.4050, L501.9520, L100.0100 #### [facility] [address] [place], [address] T PROT 6.1 g/dL Low 6.4-8.2 [facility] Comment on above: Performed By: #### L 3100.1850, L506.0400, L501.69720, L500.4050, L501.9520, L100.0100 #### [facility] [address] [place], [address] Urea nitrogen [Mass/Vol] 21 mg/dL High 7-18 [facility] Comment on above: Performed By: #### L 3100.1850, L506.0400, L501.40899, L500.4050, L501.9520, L100.0100 #### [facility] [address] [place], [address] Free T3on 09-05-2024 Free T3 [Mass/Vol] 2.0 pg/mL Low 2.18-3.98 [facility] Comment on above: Performed By: #### L 501.92388, L501.9186, L500.4050, L501.9520, L506.0400, L501.9310, L100.0100, L3100.1850 #### [facility] [address] [place], [address] T4 Free Directon 09-05-2024 T4 FREE DIRECT 0.74 ng/dL Low 0.76-1.46 [facility] Comment on above: Performed By: #### L 501.00787, L501.9186, L500.4050, L501.9520, L506.0400, L501.9310, L100.0100, L3100.1850 #### [facility] [address] [place], [place], [id number] Thyroid Stim Hormone (TSH)on 09-05-2024 TSH 27.000 uIU/mL High 0.358-3.74 0 [facility] Comment on above: Performed By: #### L 501.36904, L501.9186, L500.4050, L501.9520, L506.0400, L501.9310, L100.0100, L3100.1850 #### [facility] [address] [place], [place], [id number] CBC W/Diff, Automatedon 12-0 Absolute Lymph 1.58 X10 3/uL Normal 0.83-4.51 [facility] Comment on above: Performed By: #### L 501.43606, L501.9186, L500.4050, L501.9520, L506.0400, L501.9310, L100.0100, L3100.1850 #### [facility] [address] [place], [place], [id number] Absolute Neut 3.0 X10 3/uL Normal 2.0-7.7 [facility] Comment on above: Performed By: #### L 501.86999, L501.9186, L500.4050, L501.9520, L506.0400, L501.9310, L100.0100, L3100.1850 #### [facility] [address] [place], [place], [id number] Basophils/100 WBC (Bld) 0.9 % Normal 0-1 [facility] Comment on above: Performed By: #### L 501.60207, L501.9186, L500.4050, L501.9520, L506.0400, L501.9310, L100.0100, L3100.1850 #### [facility] [address] [place], [address] Eosinophils/100 WBC (Bld) 2.4 % Normal 0-5 [facility] Comment on above: Performed By: #### L 501.24480, L501.9186, L500.4050, L501.9520, L506.0400, L501.9310, L100.0100, L3100.1850 #### [facility] [address] [place], [address] Erythrocyte distribution width (RBC) [Ratio] 13.5 % Normal 11.6-14.6 [facility] Comment on above: Performed By: #### L 501.19986, L501.9186, L500.4050, L501.9520, L506.0400, L501.9310, L100.0100, L3100.1850 #### [facility] [address] [place], [address] Hematocrit (Bld) [Volume fraction] 39.4 % Normal 37-47 [facility] Comment on above: Performed By: #### L 501.54102, L501.9186, L500.4050, L501.9520, L506.0400, L501.9310, L100.0100, L3100.1850 #### [facility] [address] [place], [address] Hemoglobin (Bld) [Mass/Vol] 12.5 g/dL Normal 12.0-15.0 [facility] Comment on above: Performed By: #### L 501.85970, L501.9186, L500.4050, L501.9520, L506.0400, L501.9310, L100.0100, L3100.1850 #### [facility] [address] [place], [address] IG% 0.900 Normal 0.0-0.9 [facility] Comment on above: Result Comment: IG% - Immature Granulocytes (promyelocytes, myelocytes and metamyelocytes) > 1% indicates that a LEFT SHIFT is Present. Performed By: #### L 501.97231, L501.9186, L500.4050, L501.9520, L506.0400, L501.9310, L100.0100, L3100.1850 #### [facility] [address] [place], [address] Lymphocytes/100 WBC (Bld) 29.7 % Normal 19-41 [facility] Comment on above: Performed By: #### L 501.32597, L501.9186, L500.4050, L501.9520, L506.0400, L501.9310, L100.0100, L3100.1850 #### [facility] [address] [place], [address] MCH (RBC) [Entitic mass] 32.1 pg High 27.0-32.0 [facility] Comment on above: Performed By: #### L 501.50087, L501.9186, L500.4050, L501.9520, L506.0400, L501.9310, L100.0100, L3100.1850 #### [facility] [address] [place], [address] MCHC (RBC) [Mass/Vol] 31.7 g/dL Low 32-36 [facility] Comment on above: Performed By: #### L 501.31981, L501.9186, L500.4050, L501.9520, L506.0400, L501.9310, L100.0100, L3100.1850 #### [facility] [address] [place], [address] MCV (RBC) [Entitic vol] 101.0 fL High 81-99 [facility] Comment on above: Performed By: #### L 501.58577, L501.9186, L500.4050, L501.9520, L506.0400, L501.9310, L100.0100, L3100.1850 #### [facility] [address] [place], [address] Monocytes/100 WBC (Bld) 9.4 % Normal 0-10 [facility] Comment on above: Performed By: #### L 501.48782, L501.9186, L500.4050, L501.9520, L506.0400, L501.9310, L100.0100, L3100.1850 #### [facility] [address] [place], [address] Neutrophils/100 WBC (Bld) 56.7 % Normal 47-70 [facility] Comment on above: Performed By: #### L 501.12809, L501.9186, L500.4050, L501.9520, L506.0400, L501.9310, L100.0100, L3100.1850 #### [facility] [address] [place], [address] Nucleated RBC (Bld) [#/Vol] 0 10*3/uL Normal 0-5 [facility] Comment on above: Performed By: #### L 501.31353, L501.9186, L500.4050, L501.9520, L506.0400, L501.9310, L100.0100, L3100.1850 #### [facility] [address] [place], [address] Platelet mean volume (Bld) [Entitic vol] 11.7 fL Normal 6.2-12.0 [facility] Comment on above: Performed By: #### L 501.80079, L501.9186, L500.4050, L501.9520, L506.0400, L501.9310, L100.0100, L3100.1850 #### [facility] [address] [place], [address] Platelets (Bld) [#/Vol] 192 10*3/uL Normal 150-450 [facility] Comment on above: Performed By: #### L 501.56679, L501.9186, L500.4050, L501.9520, L506.0400, L501.9310, L100.0100, L3100.1850 #### [facility] [address] [place], [address] RBC (Bld) [#/Vol] 3.90 10*6/uL Low 4.2-5.4 [facility] Comment on above: Performed By: #### L 501.00121, L501.9186, L500.4050, L501.9520, L506.0400, L501.9310, L100.0100, L3100.1850 #### [facility] [address] [place], [address] RDW SD 50.3 fl High 35.1-43.9 [facility] Comment on above: Performed By: #### L 501.04558, L501.9186, L500.4050, L501.9520, L506.0400, L501.9310, L100.0100, L3100.1850 #### [facility] [address] [place], [address] WBC (Bld) [#/Vol] 5.3 10*3/uL Normal 4.4-11.0 [facility] Comment on above: Performed By: #### L 501.86955, L501.9186, L500.4050, L501.9520, L506.0400, L501.9310, L100.0100, L3100.1850 #### [facility] [address] [place], [address] Comprehensive Metabolic Prof rion 08-06-2024 Albumin [Mass/Vol] 3.7 g/dL Normal 3.2-5.0 [facility] Comment on above: Performed By: #### L 501.62996, L501.9186, L500.4050, L501.9520, L506.0400, L501.9310, L100.0100, L3100.1850 #### [facility] [address] [place], [place], [address] Albumin/Globulin [Mass ratio] 1.7 {ratio} Normal 0.9-2.4 [facility] Comment on above: Performed By: #### L 501.99165, L501.9186, L500.4050, L501.9520, L506.0400, L501.9310, L100.0100, L3100.1850 #### [facility] [address] [place], [place], [address] ALK P 90 U/L Normal 45-117 [facility] Comment on above: Performed By: #### L 501.40893, L501.9186, L500.4050, L501.9520, L506.0400, L501.9310, L100.0100, L3100.1850 #### [facility] [address] [place], [place], [id number] ALT [Catalytic activity/Vol] 23 U/L Normal 13-56 [facility] Comment on above: Performed By: #### L 501.26938, L501.9186, L500.4050, L501.9520, L506.0400, L501.9310, L100.0100, L3100.1850 #### [facility] [address] [place], [place], [id number] AST [Catalytic activity/Vol] 18 U/L Normal 15-37 [facility] Comment on above: Performed By: #### L 501.38005, L501.9186, L500.4050, L501.9520, L506.0400, L501.9310, L100.0100, L3100.1850 #### [facility] [address] [place], [address] Bilirubin [Mass/Vol] 0.80 mg/dL Normal 0.20-1.00 [facility] Comment on above: Result Comment: For patients on eltrombopag therapy, use of Dimension [place] TBIL is not recommended. Performed By: #### L 501.28810, L501.9186, L500.4050, L501.9520, L506.0400, L501.9310, L100.0100, L3100.1850 #### [facility] [address] [place], [address] BUN/CRE 42.4 RATIO High 10-20 [facility] Comment on above: Performed By: #### L 501.37258, L501.9186, L500.4050, L501.9520, L506.0400, L501.9310, L100.0100, L3100.1850 #### [facility] [address] [place], [place], [id number] (800 CA,Total 8.8 mg/dL Normal 8.5-10.1 [facility] Comment on above: Performed By: #### L 501.48675, L501.9186, L500.4050, L501.9520, L506.0400, L501.9310, L100.0100, L3100.1850 #### [facility] [address] [place], [address] Chloride [Moles/Vol] 108 mmol/L High 98-107 [facility] Comment on above: Performed By: #### L 501.37162, L501.9186, L500.4050, L501.9520, L506.0400, L501.9310, L100.0100, L3100.1850 #### [facility] [address] [place], [address] CO2 [Moles/Vol] 30.0 mmol/L Normal 21.0-32.0 [facility] Comment on above: Performed By: #### L 501.76249, L501.9186, L500.4050, L501.9520, L506.0400, L501.9310, L100.0100, L3100.1850 #### [facility] [address] [place], [address] Creatinine [Mass/Vol] 0.47 mg/dL Low 0.55-1.02 [facility] Comment on above: Result Comment: The validity of the calculated GFR GFRAA in patients over 70 years has not been determined. Clinical correlation is essential. Performed By: #### L 501.58708, L501.9186, L500.4050, L501.9520, L506.0400, L501.9310, L100.0100, L3100.1850 #### [facility] [address] [place], [address] EST GFR - AA 167 mL/min Normal >60 [facility] Comment on above: Result Comment: Afri can [place]e GFR Calc Performed By: #### L 501.76404, L501.9186, L500.4050, L501.9520, L506.0400, L501.9310, L100.0100, L3100.1850 #### [facility] [address] [place], [address] GAP 4 Low 5-15 [facility] Comment on above: Performed By: #### L 501.05663, L501.9186, L500.4050, L501.9520, L506.0400, L501.9310, L100.0100, L3100.1850 #### [facility] [address] [place], [place], [id number] (928) GFR/1.73 sq M.predicted among non-blacks MDRD (S/P/Bld) [Vol rate/Area] 138 mL/min/{1.73_m2} Normal >60 [facility] Comment on above: Result Comment: Non- GFR Calc Performed By: #### L 501.80545, L501.9186, L500.4050, L501.9520, L506.0400, L501.9310, L100.0100, L3100.1850 #### [facility] [address] [place], [place], [id number] ([address]) Globulin (S) [Mass/Vol] 2.2 g/dL Normal 2.2-4.2 [facility] Comment on above: Performed By: #### L 501.00901, L501.9186, L500.4050, L501.9520, L506.0400, L501.9310, L100.0100, L3100.1850 #### [facility] [address] [place], [place], [id number] ([address] Glucose [Mass/Vol] 89 mg/dL Normal 74-106 [facility] Comment on above: Performed By: #### L 501.60529, L501.9186, L500.4050, L501.9520, L506.0400, L501.9310, L100.0100, L3100.1850 #### [facility] [address] [place], [address] Potassium [Moles/Vol] 4.1 mmol/L Normal 3.5-5.1 [facility] Comment on above: Performed By: #### L 501.98062, L501.9186, L500.4050, L501.9520, L506.0400, L501.9310, L100.0100, L3100.1850 #### [facility] [address] [place], [address] Sodium [Moles/Vol] 142 mmol/L Normal 136-145 [facility] Comment on above: Performed By: #### L 501.07288, L501.9186, L500.4050, L501.9520, L506.0400, L501.9310, L100.0100, L3100.1850 #### [facility] [address] [place], [place], [id number] T PROT 5.9 g/dL Low 6.4-8.2 [facility] Comment on above: Performed By: #### L 501.32866, L501.9186, L500.4050, L501.9520, L506.0400, L501.9310, L100.0100, L3100.1850 #### [facility] [address] [place], [place], [id number] Urea nitrogen [Mass/Vol] 20 mg/dL High 7-18 [facility] Comment on above: Performed By: #### L 501.97345, L501.9186, L500.4050, L501.9520, L506.0400, L501.9310, L100.0100, L3100.1850 #### [facility] [address] [place], [place], [id number] [facility] Telephone (NEOH[facility]) ----- WALDEMAR HUDSON ([id number]) 1955 F Date Time Provider Department 06/30/24 [facility] During your visit today, we recorded the following information about you: Mara Sawyer 06/30/2024 10:55 AM Signed Type of record received: Office Visit Notes Records received from: [facility] Records received via: Faxed Records scanned into Epic: Yes Records have been forwarded to: Dr. Prieto Allergies As of Date: 06/30/2024 Noted Allergy Reaction BACLOFEN 03/17/2024 2 - Rash 5 - Intolerance Comments: Headache, very tired MALARONE (ATOVAQUONE-PROGUANIL) 09/10/2015 4 - Hives THIMERSOL (THIMEROSAL) 04/26/2009 Comments: Makes eyes red- thimerosal in contacts Date Reviewed: 06/16/2024 Reviewed by: Carmenza Jacobs, SAMIRA - Fully Assessed Reason for Visit: Received Outside Medical Records [[id number]] Cmt: [facility] Daily Notes Prescriptions as of 07/17/2024 - amoxicillin (AMOXIL) 500 mg capsule Take 2 capsules by mouth every 12 hours. - Black Cohosh 40 mg cap Take 1 capsule by mouth two times a day. - CHLORELLA ALGAE, BULK, MISC Take 6 tablets by mouth once daily. - CIERA 0.075 mg/24 hr patch Apply 1 Patch as directed two times a week. - furosemide (LASIX) 20 mg tablet Take 1 tablet by mouth every 12 hours. - levOCARNitine (CARNITOR) 500 mg tab tablet Take 500 mg by mouth two times a day. - liothyronine (CYTOMEL) 5 mcg tablet Take 1 tablet by mouth once daily. - magnesium oxide 200 mg magnesium chew Take 200 mg by mouth once daily. magnesium chew - AUGUSTO D ARCO ORAL Take 60 mL by mouth once daily. tea - progesterone micronized (PROMETRIUM) 200 mg capsule Take 200 mg by mouth daily at bedtime. - VITAMIN B COMPLEX ORAL Take 1 capsule by mouth once daily. - METHYLENE BLUE, BULK-SOLID, MISC 1 capsule two times a day. - procaine HCl (PROCAINE, BULK, MISC) one time a week. IV infusion - NUEDEXTA 20-10 mg capsule Take 1 capsule by mouth three times a day. - rifAMPin (RIFADIN) 300 mg capsule Take 300 mg by mouth once daily. - Magnesium 200 mg tab Take 1 tablet by mouth once daily. - levothyroxine (SYNTHROID) 112 mcg tablet - nystatin (MYCOSTATIN, NILSTAT) 500,000 unit tab Take 2 tablets by mouth three times a day with meals. - TherBiotic Complete 120 Ct. (Klaire/Prothera) Take 1 capsule by mouth once daily. - Fish Oil-[place]-3 Fatty Acids 300-1,000 mg cap Take by mouth. - Meriva-SR (Monae) decrease inflammation/pain/gut healing Take 1-2 capsules two times daily Problem List As Of Date 06/30/2024 Noted Resolved PERS HX OF THYROID MALIGNANCY [Z85.850] 05/24/2005 ESOPHAGEAL REFLUX [K21.9] 05/24/2005 FX METATARSAL-CLOSED [S92.309A] 07/12/2005 MALIGN NEOPL THYROID [C73] 11/12/2005 CHOLELITH W CHOLECYS NEC [K80.10] 01/25/2006 GASTRITIS ANTRAL( W/O Hemorrhage) [K29.60] 03/09/2006 SPRAIN SHOULDER/ARM NOS [[id number]] 06/20/2006 FX PHALANX, FOOT-CLOSED [S92.919A] 08/13/2006 DYSMETABOLIC SYNDROME X [E88.810] 05/21/2007 SPRAIN NOS [T14.8XXA] 08/19/2007 Congenital pes planus [Q66.50] 02/27/2011 Skin lesion [L98.9] 02/28/2011 Other musculoskeletal symptoms referable to anna*07/14/2013 Special screening for malignant neoplasms, colo*10/01/2014 Dysphagia, unspecified(787.20) [R13.10] 10/01/2014 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 GERD without esophagitis [K21.9] 09/06/2016 History of thyroid cancer [Z85.850] 09/06/2016 Hypothyroidism [E03.9] 09/06/2016 Foot cramps [R25.2] 09/06/2016 Menopausal and postmenopausal disorder [N95.9] 09/06/2016 Fatigue [R53.83] 09/06/2016 Vitamin D deficiency [E55.9] 09/06/2016 Rectal itching [L29.0] 02/26/2017 Sleep disturbance [G47.9] 04/22/2018 Impaired ambulation [R26.2] 10/03/2023 Muscle spasticity [M62.838] 10/03/2023 Impaired flexibility of lower extremity [R29.89*10/03/2023 Abnormality of gait [R26.9] 10/03/2023 Right leg pain [M79.604] 10/03/2023 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] 01/09/2024 Decreased coordination [R27.8] 01/09/2024 Decreased independence with activities of daily*01/09/2024 Family history of bicuspid aortic valve [Z82.79]06/20/2024 Encounter Status:Closed by MARA SAWYER on 07/17/24 Normal [facility] CBC W Auto Differential pane l (Bld)on 06-16-2024 Basophils (Bld) [#/Vol] 0.03 10*3/uL Normal <0.11 [facility] Comment on above: Order Comment: Speci men Type: BLOOD SPECIMENOrdering Facility: [facility] Address: [address] [place] [address] Performed By: #### 5 7021-8 ####[facility] LABCLIA [id number] [place] [address] [place] Basophils/100 WBC (Bld) 0.5 % Normal [facility] Comment on above: Order Comment: Speci men Type: BLOOD SPECIMENOrdering Facility: [facility] Address: [address] [place] [address] Performed By: #### 5 7021-8 ####[facility] LABCLIA [id number] [place] [address] [place] Differential cell count method Nom (Bld) Auto Normal [facility] Comment on above: Order Comment: Speci men Type: BLOOD SPECIMENOrdering Facility: [facility] Address: [address] [place] [address] Performed By: #### 5 7021-8 ####[facility] LABCLIA [id number] [place] [address] [place] Eosinophils (Bld) [#/Vol] 0.12 10*3/uL Normal <0.46 [facility] Comment on above: Order Comment: Speci men Type: BLOOD SPECIMENOrdering Facility: [facility] Address: [address] [place] [address] Performed By: #### 5 7021-8 ####[facility] LABCLIA [id number] [place] [address] [place] Eosinophils/100 WBC (Bld) 2.1 % Normal [facility] Comment on above: Order Comment: Speci men Type: BLOOD SPECIMENOrdering Facility: [facility] Address: [address] [place] [address] Performed By: #### 5 7021-8 ####[facility] LABCLIA [id number] [place] [address] [place] Erythrocyte distribution width (RBC) [Ratio] 13.2 % Normal 11.5-15.0 [facility] Comment on above: Order Comment: Speci men Type: BLOOD SPECIMENOrdering Facility: [facility] Address: [address] [place] [address] Performed By: #### 5 7021-8 ####[facility] LABCLIA [id number] [place] [address] [place] Hematocrit (Bld) [Volume fraction] 44.1 % Normal 36.0-46.0 [facility] Comment on above: Order Comment: Speci men Type: BLOOD SPECIMENOrdering Facility: [facility] Address: [address] [place] [address] Performed By: #### 5 7021-8 ####[facility] LABCLIA [id number] [place] [address] [place] Hemoglobin (Bld) [Mass/Vol] 13.9 g/dL Normal 11.5-15.5 [facility] Comment on above: Order Comment: Speci men Type: BLOOD SPECIMENOrdering Facility: [facility] Address: [address] [place] [address] Performed By: #### 5 7021-8 ####[facility] LABCLIA [id number] [place] [address] [place] Immature granulocytes (Bld) [#/Vol] 10*3/uL Normal <0.10 [facility] Comment on above: Order Comment: Speci men Type: BLOOD SPECIMENOrdering Facility: [facility] Address: [address] [place] [address] Performed By: #### 5 7021-8 ####[facility] LABCLIA [id number] [place] [address] [place] Immature granulocytes/100 WBC (Bld) 0.2 % Normal [facility] Comment on above: Order Comment: Speci men Type: BLOOD SPECIMENOrdering Facility: [facility] Address: [address] [place] [address] Performed By: #### 5 7021-8 ####[facility] LABCLIA [id number] [place] [address] [place] Lymphocytes (Bld) [#/Vol] 1.68 10*3/uL Normal 1.00-4.00 [facility] Comment on above: Order Comment: Speci men Type: BLOOD SPECIMENOrdering Facility: [facility] Address: [address] [place] [address] Performed By: #### 5 7021-8 ####[facility] LABCLIA [id number] [place] [address] [place] Lymphocytes/100 WBC (Bld) 30.1 % Normal [facility] Comment on above: Order Comment: Speci men Type: BLOOD SPECIMENOrdering Facility: [facility] Address: [address] [place] [address] Performed By: #### 5 7021-8 ####[facility] LABCLIA [id number] [place] [address] [place] MCH (RBC) [Entitic mass] 31.4 pg Normal 26.0-34.0 [facility] Comment on above: Order Comment: Speci men Type: BLOOD SPECIMENOrdering Facility: [facility] Address: [address] [place] [address] Performed By: #### 5 7021-8 ####[facility] LABIA [id number] [place] [address] [place] MCHC (RBC) [Mass/Vol] 31.5 g/dL Normal 30.5-36.0 [facility] Comment on above: Order Comment: Speci men Type: BLOOD SPECIMENOrdering Facility: [facility] Address: [address] [place] [address] Performed By: #### 5 7021-8 ####[facility] LABIA [id number] [place] [address] [place] MCV (RBC) [Entitic vol] 99.5 fL Normal 80.0-100.[address] [facility] Comment on above: Order Comment: Speci men Type: BLOOD SPECIMENOrdering Facility: [facility] Address: [address] [place] [address] Performed By: #### 5 7021-8 ####[facility] LABIA [id number] [place] [address] [place] Monocytes (Bld) [#/Vol] 0.43 10*3/uL Normal <0.87 [facility] Comment on above: Order Comment: Speci men Type: BLOOD SPECIMENOrdering Facility: [facility] Address: [address] [place] [address] Performed By: #### 5 7021-8 ####[facility] LABIA [id number] [place] [address] [place] Monocytes/100 WBC (Bld) 7.7 % Normal [facility] Comment on above: Order Comment: Speci men Type: BLOOD SPECIMENOrdering Facility: [facility] Address: [address] [place] [address] Performed By: #### 5 7021-8 ####[facility] LABCLIA [id number] [place] [address] [place] Neutrophils (Bld) [#/Vol] 3.32 10*3/uL Normal 1.45-7.50 [facility] Comment on above: Order Comment: Speci men Type: BLOOD SPECIMENOrdering Facility: [facility] Address: [address] [place] [address] Performed By: #### 5 7021-8 ####[facility] LABCLIA [id number] [place] [address] [place] Neutrophils/100 WBC (Bld) 59.4 % Normal [facility] Comment on above: Order Comment: Speci men Type: BLOOD SPECIMENOrdering Facility: [facility] Address: [address] [place] [address] Performed By: #### 5 7021-8 ####[facility] LABCLIA [id number] [place] [address] [place] Nucleated RBC (Bld) [#/Vol] 10*3/uL Normal <0.01 [facility] Comment on above: Order Comment: Speci men Type: BLOOD SPECIMENOrdering Facility: [facility] Address: [address] [place] [address] Performed By: #### 5 7021-8 ####[facility] LABCLIA [id number] [place] [address] [place] Nucleated RBC/100 WBC (Bld) [Ratio] 0.0 /100 WBC Normal [facility] Comment on above: Order Comment: Speci men Type: BLOOD SPECIMENOrdering Facility: [facility] Address: [address] [place] [address] Performed By: #### 5 7021-8 ####[facility] LABCLIA [id number] [place] [address] [place] Platelet mean volume (Bld) [Entitic vol] 10.4 fL Normal 9.0-12.7 [facility] Comment on above: Order Comment: Speci men Type: BLOOD SPECIMENOrdering Facility: [facility] Address: [address] [place] [address] Performed By: #### 5 7021-8 ####[facility] LABIA [id number] [place] [address] [place] Platelets (Bld) [#/Vol] 245 10*3/uL Normal 150-400 [facility] Comment on above: Order Comment: Speci men Type: BLOOD SPECIMENOrdering Facility: [facility] Address: [address] [place] [address] Performed By: #### 5 7021-8 ####[facility] LABIA [id number] [place] [address] [place] RBC (Bld) [#/Vol] 4.43 10*6/uL Normal 3.90-5.20 [facility] Comment on above: Order Comment: Speci men Type: BLOOD SPECIMENOrdering Facility: [facility] Address: [address] [place] [address] Performed By: #### 5 7021-8 ####[facility] LABIA [id number] [place] [address] [place] WBC (Bld) [#/Vol] 5.59 10*3/uL Normal 3.70-11.00 [facility] Comment on above: Order Comment: Speci men Type: BLOOD SPECIMENOrdering Facility: [facility] Address: [address] [place] [address] Performed By: #### 5 7021-8 ####[facility] LABIA [id number] [place] [address] [place] CNOVon 06-16-2024 CNOV Office Visit (CARCMN ) ----- WALDEMAR HUDSON ([id number]) 1955 F Date Time Provider Department 06/16/24 1:15 PM AIXA RAMIREZ During your visit today, we recorded the following information about you: Pulse Blood pressure Weight Height 57/minute 136/70 74.8 kg 1.702 m Aixa Ramirez MD 06/20/2024 12:41 PM Signed [facility] [place] [facility] OUTPATIENT VISIT DATE June 16, 2024 OUTPATIENT VISIT TYPE NEW PRIMARY CARE PHYSICIAN: Keren Dumont [address] [place] [address] [place] [address] REFERRING PHYSICIAN: Self referred CHIEF COMPLAINT: Screening for bicuspid aortic valve CONGENITAL CARDIAC HISTORY: None INTERVAL HISTORY: First visit 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 here today for cardiovascular evaluation related to Bicuspid valve. Brother was diagnosed with bicuspid aortic valve and had open heart surgery. Wants to make sure her valve is OK. Waldemar has a significant medical history of Lyme disease, thyroid cancer, and PLS (primary lateral sclerosis). Initially presented as foot drop. Progressive weakness over time; she's needed a wheelchair for the last 8 months or so. Voice is also becoming more hoarse. No cardiac symptoms at this time apart from legs swelling over the last few months, that's now up to her knees. Very uncomfortable. Lasix didn't seem to help (rx by primary doctor). Breathing at night is fine. No chest pain. No palpitations. Told she had some ?bigeminy when younger and advised to drink less caffeine. Mobilizes via wheelchair. Dad had heart problem, needed warfarin, not open heart surgery. 1 brother with bicuspid aortic valve requiring open heart surgery. 1 brother with dilated aorta. 1 sibling and had rheumatic heart disease. She has six siblings in total. She has 3 children, one who has two kids. One of the patient's grandchild was just born and there was some initial concern for a dilated aorta (on in utero imaging) that did not come to bear. This is what prompted her current visit. PAST MEDICAL HISTORY Diagnosis Date Arrhythmia irregular heart rate-several yrs ago-PVC's Endometriosis Esophageal reflux 05/24/2005 Lichen sclerosus PERS HX OF THYROID MALIGNANCY 05/24/2005 Primary lateral sclerosis (HCC) 2017 Snoring Uterine fibroid PAST SURGICAL HISTORY Procedure Laterality Date COLONOSCOPY FLX DX W/COLLJ SPEC WHEN PFRMD 09/03/2003 Colonoscopy COLONOSCOPY FLX DX W/COLLJ SPEC WHEN PFRMD 10/01/2014 Colonoscopy EGD TRANSORAL BIOPSY SINGLE/MULTIPLE 03/09/2006 Hiatal hernia/gastritis/esophagi tis ESOPHAGOGASTRODUODENOSCOP Y TRANSORAL DIAGNOSTIC 10/01/2014 EGD LAPS SURG CHOLECYSTECTOMY W/CHOLANGIOGRAPHY 03/12/2006 PAST SURGICAL HISTORY OF 03/12/2006 transvaginal sling REMOVAL SKN TAGS DIRECTOR CHECK FIBRQ TAGS ANY AREA UPW/15 03/18/2011 Ablation skin tags/ shave bx x 2 REMV CATARACT EXTRACAP,INSERT LENS 12/2023 S SLING BLADDER SALPINGO-OOPHORECTOMY COMPL/PRTL UNI/BI SPX 10/25/2000 Salpingo-oophorectomy THYROIDECTOMY TOTAL/COMPLETE 07/19/2001 For Cancer THYROIDECTOMY TOTAL/COMPLETE TOTAL ABDOMINAL HYSTERECT W/WO RMVL TUBE OVARY 10/25/2000 Hysterectomy, FIDE for fibroids and abnormal menstruation Social History Tobacco Use Smoking status: Never Smokeless tobacco: Never Vaping Use Vaping status: Never Used Substance Use Topics Alcohol use: Not Currently Comment: none since ~2018 Drug use: Yes Comment: microdose THC FAMILY HISTORY Problem Relation Age of Onset other (Other [Other]) Mother normal pressure hydrocephalous Thyroid Mother Heart Father Stroke Father other (DEMENTIA [Other]) Father frontotemporal dementia other (heart valve abnormality) Brother Aneurysm Brother Aneurysm Brother Heart Brother RHEUMATIC FEVER IN CHILDHOOD other (valve) Brother bicuspid aortic valve Stroke Maternal Grandmother Cancer Maternal Grandfather COLON Stroke Paternal Grandmother Aneurysm Grandson - Daughter is 43, she has a 7 year old and a new baby. The new baby had concerns for dilated aorta in utero but thus far has had reassuring assessments since delivery - Other children are 39 and 30, well - Brother #1 has bicuspid valve and dilated aorta, had aortic valve repair, open heart - Brother #2 has dilated aorta - older sister is apparently well, unknown - Younger sister is athletic, has been screened - Oldest brother had rheumatic fever, of heart attack at 23. ALLERGIES Allergen Reactions Baclofen Rash, Intolerance Headache, very tired Malarone [Atovaquon* Hives Thimersol [Thimeros* Makes eyes red- thimerosal in contacts MEDICATIONS: amoxicillin (AMOXIL) 500 mg capsuleTake 2 capsules by mouth every 12 hours.Disp: Rfl: Black Cohosh 40 mg capTake 1 caps (more content not included)... Normal [facility] Comprehensive metabolic 2000 panelon 06-16-2024 Albumin [Mass/Vol] 4.4 g/dL Normal 3.9-4.9 [facility] Comment on above: Order Comment: Speci men Type: BLOOD SPECIMENOrdering Facility: [facility] Address: [address] [place] [address] Performed By: #### 3 3762-6, 88289-4, ####[facility] LABCLIA [id number] [place] [address] [place] ALP [Catalytic activity/Vol] 75 U/L Normal 34-123 [facility] Comment on above: Order Comment: Speci men Type: BLOOD SPECIMENOrdering Facility: [facility] Address: [address] [place] [address] Performed By: #### 3 3762-6, 09219-3, ####[facility] LABCLIA [id number] [place] [address] [place] ALT [Catalytic activity/Vol] 25 U/L Normal 7-38 [facility] Comment on above: Order Comment: Speci men Type: BLOOD SPECIMENOrdering Facility: [facility] Address: [address] [place] [address] Performed By: #### 3 3762-6, 64395-8, ####[facility] LABCLIA [id number] [place] [address] [place] Anion gap [Moles/Vol] 8 mmol/L Normal 8-15 [facility] Comment on above: Order Comment: Speci men Type: BLOOD SPECIMENOrdering Facility: [facility] Address: [address] [place] [address] Performed By: #### 3 3762-6, 25725-5, ####[facility] LABCLIA [id number] [facility] [place] [address] [place] AST [Catalytic activity/Vol] 26 U/L Normal 13-35 [facility] Comment on above: Order Comment: Speci men Type: BLOOD SPECIMENOrdering Facility: [facility] Address: [address] [place] [address] Performed By: #### 3 3762-6, 31593-6, ####[facility] LABCLIA [id number] [place] [address] [place] Bilirubin [Mass/Vol] 0.5 mg/dL Normal 0.2-1.3 [facility] Comment on above: Order Comment: Speci men Type: BLOOD SPECIMENOrdering Facility: [facility] Address: [address] [place] [address] Performed By: #### 3 3762-6, 04694-9, ####[facility] LABCLIA [id number] [place] [address] [place] Calcium [Mass/Vol] 9.9 mg/dL Normal 8.5-10.2 [facility] Comment on above: Order Comment: Speci men Type: BLOOD SPECIMENOrdering Facility: [facility] Address: [address] [place] [address] Performed By: #### 3 3762-6, 82858-8, ####[facility] LABCLIA [id number] [facility] [address] [address] [place] Chloride [Moles/Vol] 101 mmol/L Normal 98-107 [facility] Comment on above: Order Comment: Speci men Type: BLOOD SPECIMENOrdering Facility: [facility] Address: [address] [place] [address] Performed By: #### 3 3762-6, 56543-3, ####[facility] LABCLIA [id number] [address] [address] [place] CO2 [Moles/Vol] 30 mmol/L Normal 22-30 [facility] Comment on above: Order Comment: Speci men Type: BLOOD SPECIMENOrdering Facility: [facility] Address: [address] [place] [address] Performed By: #### 3 3762-6, 43625-7, ####[facility] LABCLIA [id number] [place] [address] [place] Creatinine [Mass/Vol] 0.62 mg/dL Normal 0.58-0.96 [facility] Comment on above: Order Comment: Speci men Type: BLOOD SPECIMENOrdering Facility: [facility] Address: [address] [place] [address] Performed By: #### 3 3762-6, 27566-6, ####[facility] LABCLIA [id number] [place] [address] [place] Creatinine and Glomerular filtration rate.predicted panel (S/P/Bld) 96 mL/min/1.73m??? Normal >=60 [facility] Comment on above: Order Comment: Speci men Type: BLOOD SPECIMENOrdering Facility: [facility] Address: [address] [place] [address] Result Comment: Jyothi mated Glomerular Filtration Rate (eGFR) is calculated using the 2020 CKD-EPI creatinine equation. This equation utilizes serum creatinine, sex, and age as parameters. The creatinine assay has traceable calibration to isotope dilution-mass spectrometry. Refer to KDIGO guidelines for clinical interpretation. In patients with unstable renal function, e.g. those with acute kidney injury, the eGFR may not accurately reflect actual GFR. Performed By: #### 3 3762-6, 94309-6, ####[facility] LABCLIA [id number] [place] [address] [place] Glucose [Mass/Vol] 90 mg/dL Normal 74-99 [facility] Comment on above: Order Comment: Speci men Type: BLOOD SPECIMENOrdering Facility: [facility] Address: [address] [place] [address] Result Comment: The [place] Diabetes [employer] (ADA) provides guidance for cutoff values for fasting glucose and random glucose. The ADA defines fasting as no caloric intake for at least 8 hours. Fasting plasma glucose results between 100 to 125 mg/dL indicate increased risk for diabetes (prediabetes). Fasting plasma glucose results greater than or equal to 126 mg/dL meet the criteria for diagnosis of diabetes. In the absence of unequivocal hyperglycemia, results should be confirmed by repeat testing. In a patient with classic symptoms of hyperglycemia or hyperglycemic crisis, random plasma glucose results greater than or equal to 200 mg/dL meet the criteria for diagnosis of diabetes. Reference: Standards of Medical Care in Diabetes 2016, [place] [employer]. Diabetes Care. 2016.39(Suppl 1). Performed By: #### 3 3762-6, 16479-4, ####[facility] LABCLIA [id number] [place] [address] [place] Potassium [Moles/Vol] 4.1 mmol/L Normal 3.7-5.1 [facility] Comment on above: Order Comment: Speci men Type: BLOOD SPECIMENOrdering Facility: [facility] Address: [address] [place] [address] Performed By: #### 3 3762-6, 44384-0, ####[facility] LABIA [id number] [place] [address] [place] Protein [Mass/Vol] 6.6 g/dL Normal 6.3-8.0 [facility] Comment on above: Order Comment: Speci men Type: BLOOD SPECIMENOrdering Facility: [facility] Address: [address] [place], [place] [address] Performed By: #### 3 3762-6, 03050-0, 88664-4 ####[facility] LABCLIA [id number] [place] [id number] [place] Sodium [Moles/Vol] 139 mmol/L Normal 136-144 [facility] Comment on above: Order Comment: Speci men Type: BLOOD SPECIMENOrdering Facility: [facility] Address: [address] [place] [address] Performed By: #### 3 3762-6, 33340-4, 68682-1 ####[facility] LABCLIA [id number] [place] [address] [place] Urea nitrogen [Mass/Vol] 11 mg/dL Normal 7-21 [facility] Comment on above: Order Comment: Speci men Type: BLOOD SPECIMENOrdering Facility: [facility] Address: [address] [place] [address] Performed By: #### 3 3762-6, 00056-9, 57865-9 ####[facility] LABCLIA [id number] [place] [address] [place] ECG COMPLETEon 06-16-2024 ECG COMPLETE Ventricular Rate : 5 9 BPM Atrial Rate : 59 BPM P-R Interval : 132 ms QRS Duration : 90 ms Q-T Interval : 434 ms QTC Calculation(Bazett) : 429 ms Calculated P [place] : 72 degrees Calculated R [place] : 0 degrees Calculated T [place] : 19 degrees SINUS BRADYCARDIA CANNOT EXCLUDE ANTERIOR MYOCARDIAL INFARCTION , AGE UNDETERMINED ABNORMAL ECG Confirmed by BERTO ADAMSON MD ([id number]) on 07/15/2024 9:46:19 AM NAME : WALDEMAR HUDSON PID : [id number] : 1955 Gender : Female Race : Unknown ORD : [id number] Procedure Date : Jun 16 2024 13:11:29 Edit Date : Jul 15 2024 09:46:22 Diagnosis: SINUS BRADYCARDIA CANNOT EXCLUDE ANTERIOR MYOCARDIAL INFARCTION , AGE UNDETERMINED ABNORMAL ECG Confirmed by BERTO ADAMSON MD ([id number]) on 07/15/2024 9:46:19 AM Test Reason : bp/sitting in chair Location : 314 : J14 Overread By : BERTO ADAMSON MD Edited By : BERTO ADAMSON MD Referred By : , Acquired by : RUSULA BURNS [facility] ECHOACHDon 06-16-2024 ECHOACHD Echocardiography Rep ort: [facility] SEEMA-2 Date of service: 06/16/2024 11:40:02 AM GARNISHER Ordering physician: AIXA RAMIREZ Indication: Family History of Bicuspid AV Technologist: Boris Arvizu Interpreting physician: Aixa Ramirez MD PATIENT: Name: WALDEMAR HUDSON : 1955 Age: 68 years Gender: F Primary rhythm: sinus. Height: 170.20 cm BSA: 1.86 m Weight: 73.48 kg BMI: 25.4 kg/m Heart rate 59 bpm Blood pressure 114/61 mmHg Technically difficult exam due to body habitus. Color Doppler was utilized to interrogate the cardiac valves assessed and spectral Doppler was utilized to determine the flow velocities and pressure gradients reported in this exam. Myocardial strain analysis was performed in this exam to aid in the assessment of cardiac function. MEASUREMENTS: Value Indexed Normal Max aortic dimension 3.7 cm Ao < 3.8 Left atrial volume 62 ml (biplane A-L) 33 ml/m Yaneth <= 34 LV ID (diastole) 4.4 cm (2D) 2.36 cm/m LV ID (systole) 2.3 cm (2D) 1.23 cm/m IVS, leaflet tips 1.0 cm (2D) Posterior wall thickness 0.8 cm (2D) Left ventricular mass 128 g (2D) 69 g/m Global peak long strain -20.2 % LV stroke volume 47 ml (2D biplane) LV end diastolic volume 80 ml (2D biplane) 42.8 ml/m 29<=EDVi<62 LV end systolic volume 32 ml (2D biplane) 17.3 ml/m Ejection Fraction 60 % (2D biplane) EF > 54 FINDINGS: LEFT VENTRICLE The left ventricle is normal in size. Left ventricular systolic function is normal. Global LV myocardial strain is normal. Normal left ventricular diastolic function. Mitral annular lateral E/e': 5.0. Mitral annular septal E/e': 8.0. Wall Motion: All scored segments are normal. RIGHT VENTRICLE The right ventricle is normal in size. Right ventricular systolic function is normal. RV systolic tissue Doppler velocity is 17.8 cm/s. Tricuspid annular displacement is 3.0 cm. Estimated right ventricular systolic pressure is likely underestimated due to a weak or incomplete tricuspid regurgitation signal and is, at least, 26 mmHg consistent with normal pulmonary artery pressures. Estimated right atrial pressure is 8 mmHg based on IVC assessment. LEFT ATRIUM The left atrial cavity is normal in size. Pulmonary Veins: The pulmonary venous pattern showed normal systolic flow. RIGHT ATRIUM The right atrial cavity is dilated. Inferior Vena Cava: The inferior vena cava appears dilated measuring 2.4 cm. The vessel decreases greater than 50 percent with inspiration. MITRAL VALVE There is trace mitral valve regurgitation. There is mild thickening. The pressure half time is 77 msec. The peak mitral E/A ratio is 1.36. The average mitral E/e' ratio is 6.5. The mitral flow deceleration time is 264 msec. TRICUSPID VALVE There is mild (1+) tricuspid valve regurgitation. There is no thickening. AORTIC VALVE There is trace aortic valve regurgitation. Tricuspid aortic valve. There is mild thickening. The peak gradient is 5 mmHg (peak velocity = 117.0 cm/s). PULMONIC VALVE The pulmonic valve was not seen or not interrogated. There is trace pulmonic valve regurgitation. AORTA The visualized aorta is normal in size. Measurements - Sinus: 3.5 cm. Mid ascending aorta 3.7 cm. Distal descending diaphragmatic level 2.2 cm. PULMONARY ARTERIES The pulmonary arteries are unseen or not interrogated. INTERATRIAL SEPTUM There is no evidence of intracardiac shunting as detected by Doppler. INTERVENTRICULAR SEPTUM There is no flow through the interventricular septum as detected by Doppler. PERICARDIUM There is no pericardial effusion. There is an epicardial fat pad. CONCLUSIONS: - Technically difficult exam due to body habitus. - Exam indication: Family History of Bicuspid AV - The left ventricle is normal in size. Left ventricular systolic function is normal. EF = 60 5% (2D biplane) Normal left ventricular diastolic function. - The right ventricle is normal in size. Right ventricular systolic function is normal. - The right atrial cavity is dilated. - Estimated right ventricular systolic pressure is likely underestimated due to a weak or incomplete tricuspid regurgitation signal and is, at least, 26 mmHg consistent with normal pulmonary artery pressures. Estimated right atrial pressure is 8 mmHg based on IVC assessment. - There are no significant valvular abnormalities. - Exam was compared with the prior CC echocardiographic exam performed on 03/14/2004. Similar findings. Final CC [employer] [facility] Image : [id number] See Link below for Image Normal [facility] Lipid 1996 panelon 4 Cholesterol [Mass/Vol] 289 mg/dL High <200 [facility] Comment on above: Order Comment: Speci men Type: BLOOD SPECIMENOrdering Facility: [facility] Address: [address] [place] [address] Result Comment: <200 mg/dL, Desirable 200-239 mg/dL, Borderline high >239 mg/dL, High Performed By: #### 3 3762-6, 57483-2, 30609-4 ####[facility] LABCLIA [id number] [place] [address] [place] Cholesterol in HDL [Mass/Vol] 78 mg/dL Normal >39 [facility] Comment on above: Order Comment: Speci men Type: BLOOD SPECIMENOrdering Facility: [facility] Address: [address] [place] [address] Result Comment: 40-5 9 mg/dL, Acceptable >59 mg/dL, High: Negative risk factor for coronary heart disease <40 mg/dL, Low: Positive risk factor for coronary heart disease Performed By: #### 3 3762-6, 08591-2, 34505-7 ####[facility] LABCLIA [id number] [place] [address] [place] Cholesterol in LDL [Mass/Vol] 191 mg/dL High <100 [facility] Comment on above: Order Comment: Speci men Type: BLOOD SPECIMENOrdering Facility: [facility] Address: [address] [place] [address] Result Comment: <100 mg/dL, Optimal 100-129 mg/dL, Near optimal/above optimal 130-159 mg/dL, Borderline high 160-189 mg/dL, High >189 mg/dL, Very high Secondary prevention optimal LDL Cholesterol levels are recommended to be < 70 mg/dL Performed By: #### 3 3762-6, 21634-5, 90636-5 ####[facility] LABCLIA [id number] [address] [address] [place] Cholesterol in LDL/Cholesterol in HDL [Mass ratio] 2.45 {ratio} Normal <2.54 [facility] Comment on above: Order Comment: Speci men Type: BLOOD SPECIMENOrdering Facility: [facility] Address: [address] [place] [address] Result Comment: Amber sterlingce: 1. National Cholesterol Education Program ATP III Guideline At-A-Glance Quick Desk Reference: National Heart, Lung, and Blood [place]. National Institutes of Health. 2001: NIH Publication No. 01-3305. 2. An International Atherosclerosis Society position paper: global recommendations for the management of dyslipidemia: executive summary, Atherosclerosis. 2014: 232(2):410-413. Performed By: #### 3 3762-6, 84244-9, ####[facility] LABCLIA [id number] [place] [address] [place] Cholesterol in VLDL [Mass/Vol] 20 mg/dL Normal <30 [facility] Comment on above: Order Comment: Anupamai men Type: BLOOD SPECIMENOrdering Facility: [facility] Address: [address] [place] [address] Performed By: #### 3 3762-6, 00481-4, 22117-5 ####[facility] LABCLIA [id number] [address] [address] [place] Cholesterol non HDL [Mass/Vol] 211 mg/dL High <130 [facility] Comment on above: Order Comment: Anupamai men Type: BLOOD SPECIMENOrdering Facility: [facility] Address: [address] [place] [address] Result Comment: <130 mg/dL, Optimal 130-159 mg/dL, Near optimal/above optimal 160-189 mg/dL, Borderline high 190-219 mg/dL, High >219 mg/dL, Very high Secondary prevention optimal non HDL Cholesterol levels are recommended to be <100 mg/dL Performed By: #### 3 3762-6, 21803-5, 53634-2 ####[facility] LABCLIA [id number] [place] [address] [place] Cholesterol.total/Choles terol in HDL [Mass ratio] 3.71 {ratio} Normal <5.10 [facility] Comment on above: Order Comment: Speci men Type: BLOOD SPECIMENOrdering Facility: [facility] Address: [address] [place] [address] Performed By: #### 3 3762-6, 27214-8, ####[facility] LABCLIA [id number] [address] [place] FASTING TIME 6 hrs Normal [facility] Comment on above: Order Comment: Speci men Type: BLOOD SPECIMENOrdering Facility: [facility] Address: [address] [place] [address] Result Comment: PT H AD CEREAL AROUND 0900 Performed By: #### 3 3762-6, 06641-8, ####[facility] LABCLIA [id number] [place] [address] [place] Triglyceride [Mass/Vol] 101 mg/dL Normal <[address] [facility] Comment on above: Order Comment: Speci men Type: BLOOD SPECIMENOrdering Facility: [facility] Address: [address] [place] [address] Result Comment: <150 mg/dL, Normal 150-199 mg/dL, Borderline high 200-499 mg/dL, High >499 mg/dL, Very high Performed By: #### 3 3762-6, 49482-2, 35844-9 ####[facility] LABCLIA [id number] [place] [id number] [facility] NT[facility]BNP [facility] Natriuretic peptide.B prohormone N-Terminal [Mass/Vol] 99 pg/mL Normal <125 [facility] Comment on above: Order Comment: Speci men Type: BLOOD SPECIMENOrdering Facility: [facility] Address: [address] [place] [address] Performed By: #### 3 3762-6, 05805-2, 83408-5 ####[facility] LABCLIA [id number] [place] [id number] [facility] XR CHEST 2V FRONTAL/LATon XR CHEST 2V FRONTAL/LAT * * *Final Repor t* * * DATE OF EXAM: Jun 16 2024 1:22PM SAEID [id number] - XR CHEST 2V FRONTAL/LAT / PROCEDURE REASON: Congenital cardiovascular disorder * * * * Physician Interpretation * * * * EXAMINATION: CHEST RADIOGRAPH (2 VIEW FRONTAL and LATERAL) CLINICAL HISTORY: Congenital cardiovascular disorder MQ: XC2_6 EXAM DATE/TIME: 06/16/2024 1:22 PM COMPARISON: Chest radiograph(s) dated 07/23/2009 RESULTS: Lines, tubes, and devices: None. Lungs and pleura: Lungs are clear of focal consolidation. No pleural effusions or pneumothorax is identified. Cardiomediastinal silhouette: The cardiomediastinal silhouette remains enlarged, unchanged. Other: Minimal degenerative changes are present in the thoracic spine. IMPRESSION: No acute radiographic findings in the chest. B2B Managed Service Sales Exec: [facility] Transcribe Date/Time: Jun 16 2024 7:44P Dictated by : MARLEN GUERRERO MD This examination was interpreted and the report reviewed and electronically signed by: MARLEN GUERRERO MD on Jun 16 2024 7:45PM EST [id number] Normal [facility] XR Chest PA and Lateralon IMPRESSION: No acute radiographic findings in the chest. B2B Managed Service Sales Exec: [facility] Transcribe Date/Time: Jun 16 2024 7:44P Dictated by : MARLEN GUERRERO MD This examination was interpreted and the report reviewed and electronically signed by: MARLEN GUERRERO MD on Jun 16 2024 7:45PM EST DIVISION OF RADIOLOGY * * *Final Report* * * DATE OF EXAM: Jun 16 2024 1:22PM JIX [id number] - XR CHEST 2V FRONTAL/LAT / PROCEDURE REASON: Congenital cardiovascular disorder * * * * Physician Interpretation * * * * EXAMINATION: CHEST RADIOGRAPH (2 VIEW FRONTAL & LATERAL) CLINICAL HISTORY: Congenital cardiovascular disorder MQ: XC2_6 EXAM DATE/TIME: 06/16/2024 1:22 PM COMPARISON: Chest radiograph(s) dated 07/23/2009 RESULTS: Lines, tubes, and devices: None. Lungs and pleura: Lungs are clear of focal consolidation. No pleural effusions or pneumothorax is identified. Cardiomediastinal silhouette: The cardiomediastinal silhouette remains enlarged, unchanged. Other: Minimal degenerative changes are present in the thoracic spine. DIVISION OF RADIOLOGY Provider, [facility] - 06/16/2024 * * *Final Report* * * DATE OF EXAM: Jun 16 2024 1:22PM JIX [id number] - XR CHEST 2V FRONTAL/LAT / PROCEDURE REASON: Congenital cardiovascular disorder * * * * Physician Interpretation * * * * EXAMINATION: CHEST RADIOGRAPH (2 VIEW FRONTAL & LATERAL) CLINICAL HISTORY: Congenital cardiovascular disorder MQ: XC2_6 EXAM DATE/TIME: 06/16/2024 1:22 PM COMPARISON: Chest radiograph(s) dated 07/23/2009 RESULTS: Lines, tubes, and devices: None. Lungs and pleura: Lungs are clear of focal consolidation. No pleural effusions or pneumothorax is identified. Cardiomediastinal silhouette: The cardiomediastinal silhouette remains enlarged, unchanged. Other: Minimal degenerative changes are present in the thoracic spine. IMPRESSION IMPRESSION: No acute radiographic findings in the chest. B2B Managed Service Sales Exec: [facility] Transcribe Date/Time: Jun 16 2024 7:44P Dictated by : MARLEN GUERRERO MD This examination was interpreted and the report reviewed and electronically signed by: MARLEN GUERRERO MD on Jun 16 2024 7:45PM EST [facility] Radiology Study observation (narrative) Zacarias Bernabe XR Chest PA and LateralOrder ed By: [facility] Provider on 06-16-2024 [facility] CNTHERAPYon 06-03-2024 CNTHERAPY OT/PT/Speech Visit ([facility]) ----- WALDEMAR HUDSON ([id number]) 1955 F Date Time Provider Department 06/03/24 3:30 PM DAJA GOMEZ [facility] Date Time Provider Department [place] 06/03/2024 3:30 PM [id number], AMBER M [facility] M Reason for Visit: Physical Therapy [503] PT Discharge [752] 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] Other Visit Diagnoses:Impaired ambulation [R26.2] Muscle spasticity [M62.838] Impaired flexibility of lower extremity [R29.898] Abnormality of gait [R26.9] Right leg pain [M79.604] Allergies As of Date: 06/03/2024 Noted Allergy Reaction BACLOFEN 03/17/2024 2 - Rash 5 - Intolerance Comments: Headache, very tired MALARONE (ATOVAQUONE-PROGUANIL) 09/10/2015 4 - Hives THIMERSOL (THIMEROSAL) 04/26/2009 Comments: Makes eyes red- thimerosal in contacts Date Reviewed: 03/17/2024 Reviewed by: Aide Marr MA - Fully Assessed Prescriptions as of 08/19/2024 - amoxicillin (AMOXIL) 500 mg capsule Take 2 capsules by mouth every 12 hours. - Black Cohosh 40 mg cap Take 1 capsule by mouth two times a day. - CHLORELLA ALGAE, BULK, MISC Take 6 tablets by mouth once daily. - CIERA 0.075 mg/24 hr patch Apply 1 Patch as directed two times a week. - furosemide (LASIX) 20 mg tablet Take 1 tablet by mouth every 12 hours. - levOCARNitine (CARNITOR) 500 mg tab tablet Take 500 mg by mouth two times a day. - liothyronine (CYTOMEL) 5 mcg tablet Take 1 tablet by mouth once daily. - magnesium oxide 200 mg magnesium chew Take 200 mg by mouth once daily. magnesium chew - AUGUSTO D ARCO ORAL Take 60 mL by mouth once daily. tea - progesterone micronized (PROMETRIUM) 200 mg capsule Take 200 mg by mouth daily at bedtime. - VITAMIN B COMPLEX ORAL Take 1 capsule by mouth once daily. - METHYLENE BLUE, BULK-SOLID, MISC 1 capsule two times a day. - procaine HCl (PROCAINE, BULK, MISC) one time a week. IV infusion - NUEDEXTA 20-10 mg capsule Take 1 capsule by mouth three times a day. - rifAMPin (RIFADIN) 300 mg capsule Take 300 mg by mouth once daily. - Magnesium 200 mg tab Take 1 tablet by mouth once daily. - levothyroxine (SYNTHROID) 112 mcg tablet - nystatin (MYCOSTATIN, NILSTAT) 500,000 unit tab Take 2 tablets by mouth three times a day with meals. - TherBiotic Complete 120 Ct. (Klaire/Prothera) Take 1 capsule by mouth once daily. - Fish Oil-[place]-3 Fatty Acids 300-1,000 mg cap Take by mouth. 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] Other Visit Diagnoses:Impaired ambulation [R26.2] Muscle spasticity [M62.838] Impaired flexibility of lower extremity [R29.898] Abnormality of gait [R26.9] Right leg pain [M79.604] Allergies As of Date: 05/27/2024 Noted Allergy Reaction BACLOFEN 03/17/2024 2 - Rash 5 - Intolerance Comments: Headache, very tired MALARONE (ATOVAQUONE-PROGUANIL) 09/10/2015 4 - Hives THIMERSOL (THIMEROSAL) 04/26/2009 Comments: Makes eyes red- thimerosal in contacts Date Reviewed: 03/17/2024 Reviewed by: Aide Marr MA - Fully Assessed Prescriptions as of 05/27/2024 - NUEDEXTA 20-10 mg capsule Take 1 capsule by mouth three times a day. - cyclobenzaprine (FLEXERIL) 5 mg tablet Take 1 tablet by mouth three times a day. - rifAMPin (RIFADIN) 300 mg capsule Take 300 mg by mouth once daily. - Magnesium 200 mg tab Take 1 tablet by mouth once daily. - levothyroxine (SYNTHROID) 112 mcg tablet - nystatin (MYCOSTATIN, NILSTAT) 500,000 unit tab Take 2 tablets by mouth three times a day with meals. - TherBiotic Complete 120 Ct. (Klaire/Prothera) Take 1 capsule by mouth once daily. - itraconazole 0.5 % (CPD) 1-2 sprays to each nostril twice daily - Fish Oil-[place]-3 Fatty Acids 300-1,000 mg cap Take by mouth. 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] Other Visit Diagnoses:Impaired ambulation [R26.2] Muscle spasticity [M62.838] Impaired flexibility of lower extremity [R29.898] Abnormality of gait [R26.9] Right leg pain [M79.604] Allergies As of Date: 05/23/2024 Noted Allergy Reaction BACLOFEN 03/17/2024 2 - Rash 5 - Intolerance Comments: Headache, very tired MALARONE (ATOVAQUONE-PROGUANIL) 09/10/2015 4 - Hives THIMERSOL (THIMEROSAL) 04/26/2009 Comments: Makes eyes red- thimerosal in contacts Date Reviewed: 03/17/2024 Reviewed by: Aide Marr MA - Fully Assessed Prescriptions as of 05/23/2024 - NUEDEXTA 20-10 mg capsule Take 1 capsule by mouth three times a day. - cyclobenzaprine (FLEXERIL) 5 mg tablet Take 1 tablet by mouth three times a day. - rifAMPin (RIFADIN) 300 mg capsule Take 300 mg by mouth once daily. - Magnesium 200 mg tab Take 1 tablet by mouth once daily. - levothyroxine (SYNTHROID) 112 mcg tablet - nystatin (MYCOSTATIN, NILSTAT) 500,000 unit tab Take 2 tablets by mouth three times a day with meals. - TherBiotic Complete 120 Ct. (Klaire/Prothera) Take 1 capsule by mouth once daily. - itraconazole 0.5 % (CPD) 1-2 sprays to each nostril twice daily - Fish Oil-[place]-3 Fatty Acids 300-1,000 mg cap Take by mouth. - Meriva-SR (Monae) decrease inflammation/pain/gut healing Take 1-2 capsules two times daily Normal [facility] Haptoglobinon 05-18-2024 HAPTOGLOBIN 100 mg/dL Normal 37-355 [facility] Comment on above: Result Comment: Perf ormed at: CB - [facility] [address] [id number] Wedger: Petey Ibarra PhD, Phone: [phone] Performed By: #### L 501.01878, L501.9186, L500.4050, L501.9520, L506.0400, L501.9310, L100.0100, L3100.1850 #### [facility] [address] [place], [address] CBC W/Diff, Automatedon 05-04-2023 Absolute Lymph 1.56 X10 3/uL Normal 0.83-4.51 [facility] Comment on above: Performed By: #### L 501.56235, L501.9186, L500.4050, L501.9520, L506.0400, L501.9310, L100.0100, L3100.1850 #### [facility] [address] [place], [address] Absolute Neut 3.0 X10 3/uL Normal 2.0-7.7 [facility] Comment on above: Performed By: #### L 501.85542, L501.9186, L500.4050, L501.9520, L506.0400, L501.9310, L100.0100, L3100.1850 #### [facility] [address] [place], [address] Basophils/100 WBC (Bld) 1.0 % Normal 0-1 [facility] Comment on above: Performed By: #### L 501.78964, L501.9186, L500.4050, L501.9520, L506.0400, L501.9310, L100.0100, L3100.1850 #### [facility] [address] [place], [address] Eosinophils/100 WBC (Bld) 2.1 % Normal 0-5 [facility] Comment on above: Performed By: #### L 501.98907, L501.9186, L500.4050, L501.9520, L506.0400, L501.9310, L100.0100, L3100.1850 #### [facility] [address] [place], [address] Erythrocyte distribution width (RBC) [Ratio] 13.8 % Normal 11.6-14.6 [facility] Comment on above: Performed By: #### L 501.71166, L501.9186, L500.4050, L501.9520, L506.0400, L501.9310, L100.0100, L3100.1850 #### [facility] [address] [place], [address] Hematocrit (Bld) [Volume fraction] 42.1 % Normal 37-47 [facility] Comment on above: Performed By: #### L 501.10969, L501.9186, L500.4050, L501.9520, L506.0400, L501.9310, L100.0100, L3100.1850 #### [facility] [address] [place], [address] Hemoglobin (Bld) [Mass/Vol] 13.2 g/dL Normal 12.0-15.0 [facility] Comment on above: Performed By: #### L 501.10087, L501.9186, L500.4050, L501.9520, L506.0400, L501.9310, L100.0100, L3100.1850 #### [facility] [address] [place], [address] IG% 0.200 Normal 0.0-0.9 [facility] Comment on above: Result Comment: IG% - Immature Granulocytes (promyelocytes, myelocytes and metamyelocytes) > 1% indicates that a LEFT SHIFT is Present. Performed By: #### L 501.06240, L501.9186, L500.4050, L501.9520, L506.0400, L501.9310, L100.0100, L3100.1850 #### [facility] [address] [place], [address] Lymphocytes/100 WBC (Bld) 30.3 % Normal 19-41 [facility] Comment on above: Performed By: #### L 501.45401, L501.9186, L500.4050, L501.9520, L506.0400, L501.9310, L100.0100, L3100.1850 #### [facility] [address] [place], [address] MCH (RBC) [Entitic mass] 31.4 pg Normal 27.0-32.0 [facility] Comment on above: Performed By: #### L 501.64732, L501.9186, L500.4050, L501.9520, L506.0400, L501.9310, L100.0100, L3100.1850 #### [facility] [address] [place], [address] MCHC (RBC) [Mass/Vol] 31.4 g/dL Low 32-36 [facility] Comment on above: Performed By: #### L 501.20016, L501.9186, L500.4050, L501.9520, L506.0400, L501.9310, L100.0100, L3100.1850 #### [facility] [address] [place], [address] MCV (RBC) [Entitic vol] 100.2 fL High 81-99 [facility] Comment on above: Performed By: #### L 501.28038, L501.9186, L500.4050, L501.9520, L506.0400, L501.9310, L100.0100, L3100.1850 #### [facility] [address] [place], [address] Monocytes/100 WBC (Bld) 7.4 % Normal 0-10 [facility] Comment on above: Performed By: #### L 501.03617, L501.9186, L500.4050, L501.9520, L506.0400, L501.9310, L100.0100, L3100.1850 #### [facility] [address] [place], [address] Neutrophils/100 WBC (Bld) 59.0 % Normal 47-70 [facility] Comment on above: Performed By: #### L 501.89235, L501.9186, L500.4050, L501.9520, L506.0400, L501.9310, L100.0100, L3100.1850 #### [facility] [address] [facility] [place], [address] Nucleated RBC (Bld) [#/Vol] 0 10*3/uL Normal 0-5 [facility] Comment on above: Performed By: #### L 501.06782, L501.9186, L500.4050, L501.9520, L506.0400, L501.9310, L100.0100, L3100.1850 #### [facility] [address] [facility] [place], [address] Platelet mean volume (Bld) [Entitic vol] 10.6 fL Normal 6.2-12.0 [facility] Comment on above: Performed By: #### L 501.51556, L501.9186, L500.4050, L501.9520, L506.0400, L501.9310, L100.0100, L3100.1850 #### [facility] [address] [place], [address] Platelets (Bld) [#/Vol] 222 10*3/uL Normal 150-450 [facility] Comment on above: Performed By: #### L 501.37083, L501.9186, L500.4050, L501.9520, L506.0400, L501.9310, L100.0100, L3100.1850 #### [facility] [address] [place], [place], [id number] RBC (Bld) [#/Vol] 4.20 10*6/uL Normal 4.2-5.4 [facility] Comment on above: Performed By: #### L 501.34325, L501.9186, L500.4050, L501.9520, L506.0400, L501.9310, L100.0100, L3100.1850 #### [facility] [address] [place], [place], [id number] RDW SD 50.6 fl High 35.1-43.9 [facility] Comment on above: Performed By: #### L 501.76120, L501.9186, L500.4050, L501.9520, L506.0400, L501.9310, L100.0100, L3100.1850 #### [facility] [address] [place], [place], [id number] WBC (Bld) [#/Vol] 5.2 10*3/uL Normal 4.4-11.0 [facility] Comment on above: Performed By: #### L 501.96412, L501.9186, L500.4050, L501.9520, L506.0400, L501.9310, L100.0100, L3100.1850 #### [facility] [address] [place], [address] Comprehensive Metabolic Prof [facility] 05-16-2024 Albumin [Mass/Vol] 3.7 g/dL Normal 3.2-5.0 [facility] Comment on above: Order Comment: HAP Performed By: #### L 501.81641, L501.9186, L500.4050, L501.9520, L506.0400, L501.9310, L100.0100, L3100.1850 #### [facility] [address] [place] [place], [address] Albumin/Globulin [Mass ratio] 1.3 {ratio} Normal 0.9-2.4 [facility] Comment on above: Order Comment: HAP Performed By: #### L 501.55893, L501.9186, L500.4050, L501.9520, L506.0400, L501.9310, L100.0100, L3100.1850 #### [facility] [address] [place], [address] ALK P 75 U/L Normal 45-117 [facility] Comment on above: Order Comment: HAP Performed By: #### L 501.52696, L501.9186, L500.4050, L501.9520, L506.0400, L501.9310, L100.0100, L3100.1850 #### [facility] [address] [place], [address] ALT [Catalytic activity/Vol] 30 U/L Normal 13-56 [facility] Comment on above: Order Comment: HAP Performed By: #### L 501.70858, L501.9186, L500.4050, L501.9520, L506.0400, L501.9310, L100.0100, L3100.1850 #### [facility] [address] [place], [address] AST [Catalytic activity/Vol] 20 U/L Normal 15-37 [facility] Comment on above: Order Comment: HAP Performed By: #### L 501.86408, L501.9186, L500.4050, L501.9520, L506.0400, L501.9310, L100.0100, L3100.1850 #### [facility] [address] [place], [address] Bilirubin [Mass/Vol] 0.50 mg/dL Normal 0.20-1.00 [facility] Comment on above: Order Comment: HAP Result Comment: For patients on eltrombopag therapy, use of Dimension [place] TBIL is not recommended. Performed By: #### L 501.41784, L501.9186, L500.4050, L501.9520, L506.0400, L501.9310, L100.0100, L3100.1850 #### [facility] [address] [place], [address] BUN/CRE 23.6 RATIO High 10-20 [facility] Comment on above: Order Comment: HAP Performed By: #### L 501.56192, L501.9186, L500.4050, L501.9520, L506.0400, L501.9310, L100.0100, L3100.1850 #### [facility] [address] [place], [address] CA,Total 9.6 mg/dL Normal 8.5-10.1 [facility] Comment on above: Order Comment: HAP Performed By: #### L 501.13000, L501.9186, L500.4050, L501.9520, L506.0400, L501.9310, L100.0100, L3100.1850 #### [facility] [address] [place], [address] Chloride [Moles/Vol] 103 mmol/L Normal 98-107 [facility] Comment on above: Order Comment: HAP Performed By: #### L 501.99734, L501.9186, L500.4050, L501.9520, L506.0400, L501.9310, L100.0100, L3100.1850 #### [facility] [address] [place], [address] CO2 [Moles/Vol] 29.0 mmol/L Normal 21.0-32.0 [facility] Comment on above: Order Comment: HAP Performed By: #### L 501.59011, L501.9186, L500.4050, L501.9520, L506.0400, L501.9310, L100.0100, L3100.1850 #### [facility] [address] [place], [place], [id number] (471) Creatinine [Mass/Vol] 0.76 mg/dL Normal 0.55-1.02 [facility] Comment on above: Order Comment: HAP Result Comment: The validity of the calculated GFR GFRAA in patients over 70 years has not been determined. Clinical correlation is essential. Performed By: #### L 501.99107, L501.9186, L500.4050, L501.9520, L506.0400, L501.9310, L100.0100, L3100.1850 #### [facility] [address] [place], [place], [id number] (612) EST GFR - AA 96 mL/min Normal >60 [facility] Comment on above: Order Comment: HAP Result Comment: Afri can Nepalese GFR Calc Performed By: #### L 501.31306, L501.9186, L500.4050, L501.9520, L506.0400, L501.9310, L100.0100, L3100.1850 #### [facility] [address] [place], [place], [id number] (285) GAP 9 Normal 5-15 [facility] Comment on above: Order Comment: HAP Performed By: #### L 501.92289, L501.9186, L500.4050, L501.9520, L506.0400, L501.9310, L100.0100, L3100.1850 #### [facility] [address] [place], [place], [id number] (978) GFR/1.73 sq M.predicted among non-blacks MDRD (S/P/Bld) [Vol rate/Area] 80 mL/min/{1.73_m2} Normal >60 [facility] Comment on above: Order Comment: HAP Result Comment: Non- GFR Calc Performed By: #### L 501.84340, L501.9186, L500.4050, L501.9520, L506.0400, L501.9310, L100.0100, L3100.1850 #### [facility] [address] [place], [address] Globulin (S) [Mass/Vol] 2.8 g/dL Normal 2.2-4.2 [facility] Comment on above: Order Comment: HAP Performed By: #### L 501.36498, L501.9186, L500.4050, L501.9520, L506.0400, L501.9310, L100.0100, L3100.1850 #### [facility] [address] [place], [address] Glucose [Mass/Vol] 125 mg/dL High 74-106 [facility] Comment on above: Order Comment: HAP Result Comment: Fast ing Glucose result from 100 to 125 mg/dL suggests IMPAIRED HOMEOSTASIS per A.D.A. criteria. Performed By: #### L 501.45478, L501.9186, L500.4050, L501.9520, L506.0400, L501.9310, L100.0100, L3100.1850 #### [facility] [address] [place], [address] Potassium [Moles/Vol] 3.9 mmol/L Normal 3.5-5.1 [facility] Comment on above: Order Comment: HAP Performed By: #### L 501.32618, L501.9186, L500.4050, L501.9520, L506.0400, L501.9310, L100.0100, L3100.1850 #### [facility] [address] [place], [address] Sodium [Moles/Vol] 141 mmol/L Normal 136-145 [facility] Comment on above: Order Comment: HAP Performed By: #### L 501.71124, L501.9186, L500.4050, L501.9520, L506.0400, L501.9310, L100.0100, L3100.1850 #### [facility] [address] [place], [place], [id number] (418) T PROT 6.5 g/dL Normal 6.4-8.2 [facility] Comment on above: Order Comment: HAP Performed By: #### L 501.64981, L501.9186, L500.4050, L501.9520, L506.0400, L501.9310, L100.0100, L3100.1850 #### [facility] [address] [place], [place], [id number] Urea nitrogen [Mass/Vol] 18 mg/dL Normal 7-18 [facility] Comment on above: Order Comment: HAP Performed By: #### L 501.30056, L501.9186, L500.4050, L501.9520, L506.0400, L501.9310, L100.0100, L3100.1850 #### [facility] [address] [place], [address] Ferritinon 05-16-2024 Ferritin [Mass/Vol] 60 ng/mL Normal 8-252 [facility] Comment on above: Order Comment: HAP Performed By: #### L 501.39416, L501.9186, L500.4050, L501.9520, L506.0400, L501.9310, L100.0100, L3100.1850 #### [facility] [address] [place], [place], [id number] Folates, (Folic Acid)on 05-04 FOLATES 24.60 ng/mL Normal 3.1-55.4 [facility] Comment on above: Order Comment: HAP Performed By: #### L 501.35896, L501.9186, L500.4050, L501.9520, L506.0400, L501.9310, L100.0100, L3100.1850 #### [facility] [address] [place], [place], [address] Ironon 05-16-2024 Iron [Mass/Vol] 92 ug/dL Normal 50-170 [facility] Comment on above: Order Comment: HAP Performed By: #### L 501.74441, L501.9186, L500.4050, L501.9520, L506.0400, L501.9310, L100.0100, L3100.1850 #### [facility] [address] 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] Other Visit Diagnoses:Impaired ambulation [R26.2] Muscle spasticity [M62.838] Impaired flexibility of lower extremity [R29.898] Abnormality of gait [R26.9] Right leg pain [M79.604] Allergies As of Date: 05/13/2024 Noted Allergy Reaction BACLOFEN 03/17/2024 2 - Rash 5 - Intolerance Comments: Headache, very tired MALARONE (ATOVAQUONE-PROGUANIL) 09/10/2015 4 - Hives THIMERSOL (THIMEROSAL) 04/26/2009 Comments: Makes eyes red- thimerosal in contacts Date Reviewed: 03/17/2024 Reviewed by: Aide Marr MA - Fully Assessed Prescriptions as of 05/13/2024 - NUEDEXTA 20-10 mg capsule Take 1 capsule by mouth three times a day. - cyclobenzaprine (FLEXERIL) 5 mg tablet Take 1 tablet by mouth three times a day. - rifAMPin (RIFADIN) 300 mg capsule Take 300 mg by mouth once daily. - Magnesium 200 mg tab Take 1 tablet by mouth once daily. - levothyroxine (SYNTHROID) 112 mcg tablet - nystatin (MYCOSTATIN, NILSTAT) 500,000 unit tab Take 2 tablets by mouth three times a day with meals. - TherBiotic Complete 120 Ct[address] (Klaire/Prothera) Take 1 capsule by mouth once daily. - itraconazole 0.5 % (CPD) 1-2 sprays to each nostril twice daily - Fish Oil-[place]-3 Fatty Acids 300-1,000 mg cap Take by mouth. 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] Other Visit Diagnoses:Impaired ambulation [R26.2] Muscle spasticity [M62.838] Impaired flexibility of lower extremity [R29.898] Abnormality of gait [R26.9] Right leg pain [M79.604] Allergies As of Date: 05/08/2024 Noted Allergy Reaction BACLOFEN 03/17/2024 2 - Rash 5 - Intolerance Comments: Headache, very tired MALARONE (ATOVAQUONE-PROGUANIL) 09/10/2015 4 - Hives THIMERSOL (THIMEROSAL) 04/26/2009 Comments: Makes eyes red- thimerosal in contacts Date Reviewed: 03/17/2024 Reviewed by: Aide Marr MA - Fully Assessed Prescriptions as of 05/08/2024 - NUEDEXTA 20-10 mg capsule Take 1 capsule by mouth three times a day. - cyclobenzaprine (FLEXERIL) 5 mg tablet Take 1 tablet by mouth three times a day. - rifAMPin (RIFADIN) 300 mg capsule Take 300 mg by mouth once daily. - Magnesium 200 mg tab Take 1 tablet by mouth once daily. - levothyroxine (SYNTHROID) 112 mcg tablet - nystatin (MYCOSTATIN, NILSTAT) 500,000 unit tab Take 2 tablets by mouth three times a day with meals. - TherBiotic Complete 120 Ct[address] (Klaire/Prothera) Take 1 capsule by mouth once daily. - itraconazole 0.5 % (CPD) 1-2 sprays to each nostril twice daily - Fish Oil-[place]-3 Fatty Acids 300-1,000 mg cap Take by mouth. - Meriva-SR (Monae) decrease inflammation/pain/gut healing Take 1-2 capsules two times daily [facility] [id number] 05-06-2024 [id number] O ID: [id number] Author: NATHAN MADRIGAL PT Service: ? Author Type: Physical Therapist Type: [id number] Filed: 05/06/2024 17:55 Note Text: [facility] Physical Therapy Plan of Care Certification Patient Name: Waldemar Hudson : 1955 CC #: [id number] Date: 05/06/2024 To: Joan Prieto MD From Therapist: Nathan Madrigal PT, ANABELLE RE: Patient Certification/ Recertification Your review, approval and electronic signature are required in order to comply with Payor: [employer] MEDICARE / Plan: [employer] MEDICARE PPO / Product Type: PPO / regulations. The identified Physical Therapy PLAN OF CARE for the patient is as follows: G12.20 Motor neuron disease (HCC) (primary encounter diagnosis) R26.2 Impaired ambulation M62.838 Muscle spasticity R29.898 Impaired flexibility of lower extremity R26.9 Abnormality of gait M79.604 Right leg pain PLAN OF CARE UPDATE: Assessment: Waldemar Hudson demonstrates continued bilateral LR hypertonia and exacerbation of R knee pain especially at night that can wake her 7x in one night. She has progressed toward goals. Patient continues to present with impairments in ADL's, flexibility, gait, independence in exercise, overall function, patient reported outcome measures, range of motion, and symptom management that interfere with rising from a chair, standing, walking, stair negotiation, sleeping . Current prognosis is Fair due to: clinical presentation, chronic nature of impairments, limited tolerance to activity, Prognosis may be improved by good support system/ coping skills, within-session changes. She will benefit from continued skilled therapy services to meet the updated goals for this plan of care as noted below. Goals for Episode of Care: created on 05/06/2024 through 06/27/2024 Patient will increase active ROM of bilateral knees to no greater than 10-15 degrees from achieving full knee extension to allow patient to improve postural alignment, to improve body/postural mechanics for transfers / gait pattern , and to decrease falls risks. (Ongoing. Patient arrives with -20 to -30 degrees from full extension bilateral knees that improves to -15 to -25 with passive stretching) Patient will be able to correct postural deviations with minimal assist verbal cues in order to improve postural alignment of trunk during transfers, ambulation, and standing and to decrease current R LE pain. (Ongoing) Decrease R hip/R knee pain to 1-4/10 at rest and with functional activities to allow patient to improve ambulation, transfers, and standing tolerance for ADLs. (Ongoing. Patient rates her R knee pain at 4 out of 10 today and continues to struggle with nighttime pain that wakes her hourly at night) Patient to be able to non-reciprocally negotiate stairs at home with bilateral rail use with assist of for safety as needed and be able to complete this task in 5 minutes as she did previously. (NO significant changes.Patient and her are looking into installing an elevator) Patient Goals: To reduce my right knee pain New goals added for [facility] updated 01/09/2024 - Patient education regarding pathophysiology and relationship to deficits presented this date, including exercise recommendations for people with ALS. Including dosage, recovery and intensity. (met) - Patient educated on how to complete home exercise program listed below independently or with caregiver assistance to maintain function, promote wellness, decrease risk of secondary impairments (met) - Patient demonstrates independent and proper use of assistive device to allow for improved walking quality and safety therefore reducing the risk of falls (met) - Patient/ caregiver educated on safe transfers, positioning, and use of adaptive equipment this date to ensure safety for patient and caregiver (met) Recommended Equipment: pivot disc and power wheelchair Time Frame for Goals and Treatment : 06/27/24 Planned Interventions, Frequency, and Duration: 2x/week, 6 weeks Total Number of Visits Planned: 12 Patient to be seen for Manual therapy (23550), Therapeutic exercise (02215), Neuromuscular re-education (30454), Self-nursing home management (20168), Therapeutic activities (34719), Patient/Family/Caregiver Education PLAN FOR NEXT VISIT: Continue passive LE stretching, LE and trunk ROM and strengthening as pt tolerates For further details regarding this patient refer to the Physical Therapy electronically documented visit dated 05/06/2024. Provider Attestation I have reviewed the treatment plan for Waldemar Hudson, [facility]# [id number] for the period of 05/06/24 -- 06/27/24, established on 05/06/2024. Signature certifies the need for therapy services. 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] Other Visit Diagnoses:Impaired ambulation [R26.2] Muscle spasticity [M62.838] Impaired flexibility of lower extremity [R29.898] Abnormality of gait [R26.9] Right leg pain [M79.604] Allergies As of Date: 05/06/2024 Noted Allergy Reaction BACLOFEN 03/17/2024 2 - Rash 5 - Intolerance Comments: Headache, very tired MALARONE (ATOVAQUONE-PROGUANIL) 09/10/2015 4 - Hives THIMERSOL (THIMEROSAL) 04/26/2009 Comments: Makes eyes red- thimerosal in contacts Date Reviewed: 03/17/2024 Reviewed by: Aide Marr MA - Fully Assessed Prescriptions as of 05/07/2024 - NUEDEXTA 20-10 mg capsule Take 1 capsule by mouth three times a day. - cyclobenzaprine (FLEXERIL) 5 mg tablet Take 1 tablet by mouth three times a day. - rifAMPin (RIFADIN) 300 mg capsule Take 300 mg by mouth once daily. - Magnesium 200 mg tab Take 1 tablet by mouth once daily. - levothyroxine (SYNTHROID) 112 mcg tablet - nystatin (MYCOSTATIN, NILSTAT) 500,000 unit tab Take 2 tablets by mouth three times a day with meals. - TherBiotic Complete 120 Ct[address] (Klaire/Prothera) Take 1 capsule by mouth once daily. - itraconazole 0.5 % (CPD) 1-2 sprays to each nostril twice daily - Fish Oil-[place]-3 Fatty Acids 300-1,000 mg cap Take by mouth. 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] Other Visit Diagnoses:Impaired ambulation [R26.2] Muscle spasticity [M62.838] Impaired flexibility of lower extremity [R29.898] Abnormality of gait [R26.9] Right leg pain [M79.604] Allergies As of Date: 04/29/2024 Noted Allergy Reaction BACLOFEN 03/17/2024 2 - Rash 5 - Intolerance Comments: Headache, very tired MALARONE (ATOVAQUONE-PROGUANIL) 09/10/2015 4 - Hives THIMERSOL (THIMEROSAL) 04/26/2009 Comments: Makes eyes red- thimerosal in contacts Date Reviewed: 03/17/2024 Reviewed by: Aide Marr MA - Fully Assessed Prescriptions as of 04/29/2024 - NUEDEXTA 20-10 mg capsule Take 1 capsule by mouth three times a day. - cyclobenzaprine (FLEXERIL) 5 mg tablet Take 1 tablet by mouth three times a day. - rifAMPin (RIFADIN) 300 mg capsule Take 300 mg by mouth once daily. - Magnesium 200 mg tab Take 1 tablet by mouth once daily. - levothyroxine (SYNTHROID) 112 mcg tablet - nystatin (MYCOSTATIN, NILSTAT) 500,000 unit tab Take 2 tablets by mouth three times a day with meals. - TherBiotic Complete 120 Ct[address] (Klaire/Prothera) Take 1 capsule by mouth once daily. - itraconazole 0.5 % (CPD) 1-2 sprays to each nostril twice daily - Fish Oil-[place]-3 Fatty Acids 300-1,000 mg cap Take by mouth. 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] Other Visit Diagnoses:Impaired ambulation [R26.2] Muscle spasticity [M62.838] Impaired flexibility of lower extremity [R29.898] Abnormality of gait [R26.9] Right leg pain [M79.604] Allergies As of Date: 04/25/2024 Noted Allergy Reaction BACLOFEN 03/17/2024 2 - Rash 5 - Intolerance Comments: Headache, very tired MALARONE (ATOVAQUONE-PROGUANIL) 09/10/2015 4 - Hives THIMERSOL (THIMEROSAL) 04/26/2009 Comments: Makes eyes red- thimerosal in contacts Date Reviewed: 03/17/2024 Reviewed by: Aide Marr MA - Fully Assessed Prescriptions as of 04/25/2024 - NUEDEXTA 20-10 mg capsule Take 1 capsule by mouth three times a day. - cyclobenzaprine (FLEXERIL) 5 mg tablet Take 1 tablet by mouth three times a day. - rifAMPin (RIFADIN) 300 mg capsule Take 300 mg by mouth once daily. - Magnesium 200 mg tab Take 1 tablet by mouth once daily. - levothyroxine (SYNTHROID) 112 mcg tablet - nystatin (MYCOSTATIN, NILSTAT) 500,000 unit tab Take 2 tablets by mouth three times a day with meals. - TherBiotic Complete 120 Ct[address] (Klaire/Prothera) Take 1 capsule by mouth once daily. - itraconazole 0.5 % (CPD) 1-2 sprays to each nostril twice daily - Fish Oil-[place]-3 Fatty Acids 300-1,000 mg cap Take by mouth. 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] Other Visit Diagnoses:Impaired ambulation [R26.2] Muscle spasticity [M62.838] Impaired flexibility of lower extremity [R29.898] Abnormality of gait [R26.9] Right leg pain [M79.604] Allergies As of Date: 04/22/2024 Noted Allergy Reaction BACLOFEN 03/17/2024 2 - Rash 5 - Intolerance Comments: Headache, very tired MALARONE (ATOVAQUONE-PROGUANIL) 09/10/2015 4 - Hives THIMERSOL (THIMEROSAL) 04/26/2009 Comments: Makes eyes red- thimerosal in contacts Date Reviewed: 03/17/2024 Reviewed by: Aide Marr MA - Fully Assessed Prescriptions as of 04/22/2024 - NUEDEXTA 20-10 mg capsule Take 1 capsule by mouth three times a day. - cyclobenzaprine (FLEXERIL) 5 mg tablet Take 1 tablet by mouth three times a day. - rifAMPin (RIFADIN) 300 mg capsule Take 300 mg by mouth once daily. - Magnesium 200 mg tab Take 1 tablet by mouth once daily. - levothyroxine (SYNTHROID) 112 mcg tablet - nystatin (MYCOSTATIN, NILSTAT) 500,000 unit tab Take 2 tablets by mouth three times a day with meals. - TherBiotic Complete 120 Ct[address] (Klaire/Prothera) Take 1 capsule by mouth once daily. - itraconazole 0.5 % (CPD) 1-2 sprays to each nostril twice daily - Fish Oil-[place]-3 Fatty Acids 300-1,000 mg cap Take by mouth. 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] Other Visit Diagnoses:Impaired ambulation [R26.2] Muscle spasticity [M62.838] Impaired flexibility of lower extremity [R29.898] Abnormality of gait [R26.9] Right leg pain [M79.604] Allergies As of Date: 04/18/2024 Noted Allergy Reaction BACLOFEN 03/17/2024 2 - Rash 5 - Intolerance Comments: Headache, very tired MALARONE (ATOVAQUONE-PROGUANIL) 09/10/2015 4 - Hives THIMERSOL (THIMEROSAL) 04/26/2009 Comments: Makes eyes red- thimerosal in contacts Date Reviewed: 03/17/2024 Reviewed by: Aide Marr MA - Fully Assessed Prescriptions as of 04/18/2024 - NUEDEXTA 20-10 mg capsule Take 1 capsule by mouth three times a day. - cyclobenzaprine (FLEXERIL) 5 mg tablet Take 1 tablet by mouth three times a day. - rifAMPin (RIFADIN) 300 mg capsule Take 300 mg by mouth once daily. - Magnesium 200 mg tab Take 1 tablet by mouth once daily. - levothyroxine (SYNTHROID) 112 mcg tablet - nystatin (MYCOSTATIN, NILSTAT) 500,000 unit tab Take 2 tablets by mouth three times a day with meals. - TherBiotic Complete 120 Ct. (Klaire/Prothera) Take 1 capsule by mouth once daily. - itraconazole 0.5 % (CPD) 1-2 sprays to each nostril twice daily - Fish Oil-[place]-3 Fatty Acids 300-1,000 mg cap Take by mouth. 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] Other Visit Diagnoses:Impaired ambulation [R26.2] Muscle spasticity [M62.838] Impaired flexibility of lower extremity [R29.898] Abnormality of gait [R26.9] Right leg pain [M79.604] Allergies As of Date: 04/15/2024 Noted Allergy Reaction BACLOFEN 03/17/2024 2 - Rash 5 - Intolerance Comments: Headache, very tired MALARONE (ATOVAQUONE-PROGUANIL) 09/10/2015 4 - Hives THIMERSOL (THIMEROSAL) 04/26/2009 Comments: Makes eyes red- thimerosal in contacts Date Reviewed: 03/17/2024 Reviewed by: Aide Marr MA - Fully Assessed Prescriptions as of 04/15/2024 - NUEDEXTA 20-10 mg capsule Take 1 capsule by mouth three times a day. - cyclobenzaprine (FLEXERIL) 5 mg tablet Take 1 tablet by mouth three times a day. - rifAMPin (RIFADIN) 300 mg capsule Take 300 mg by mouth once daily. - Magnesium 200 mg tab Take 1 tablet by mouth once daily. - levothyroxine (SYNTHROID) 112 mcg tablet - nystatin (MYCOSTATIN, NILSTAT) 500,000 unit tab Take 2 tablets by mouth three times a day with meals. - TherBiotic Complete 120 Ct. (Klaire/Prothera) Take 1 capsule by mouth once daily. - itraconazole 0.5 % (CPD) 1-2 sprays to each nostril twice daily - Fish Oil-[place]-3 Fatty Acids 300-1,000 mg cap Take by mouth. 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] Other Visit Diagnoses:Impaired ambulation [R26.2] Muscle spasticity [M62.838] Impaired flexibility of lower extremity [R29.898] Abnormality of gait [R26.9] Right leg pain [M79.604] Allergies As of Date: 04/11/2024 Noted Allergy Reaction BACLOFEN 03/17/2024 2 - Rash 5 - Intolerance Comments: Headache, very tired MALARONE (ATOVAQUONE-PROGUANIL) 09/10/2015 4 - Hives THIMERSOL (THIMEROSAL) 04/26/2009 Comments: Makes eyes red- thimerosal in contacts Date Reviewed: 03/17/2024 Reviewed by: Aide Marr MA - Fully Assessed Prescriptions as of 04/11/2024 - NUEDEXTA 20-10 mg capsule Take 1 capsule by mouth three times a day. - cyclobenzaprine (FLEXERIL) 5 mg tablet Take 1 tablet by mouth three times a day. - rifAMPin (RIFADIN) 300 mg capsule Take 300 mg by mouth once daily. - Magnesium 200 mg tab Take 1 tablet by mouth once daily. - levothyroxine (SYNTHROID) 112 mcg tablet - nystatin (MYCOSTATIN, NILSTAT) 500,000 unit tab Take 2 tablets by mouth three times a day with meals. - TherBiotic Complete 120 Ct. (Klaire/Prothera) Take 1 capsule by mouth once daily. - itraconazole 0.5 % (CPD) 1-2 sprays to each nostril twice daily - Fish Oil-[place]-3 Fatty Acids 300-1,000 mg cap Take by mouth. 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] Other Visit Diagnoses:Impaired ambulation [R26.2] Muscle spasticity [M62.838] Impaired flexibility of lower extremity [R29.898] Abnormality of gait [R26.9] Right leg pain [M79.604] Allergies As of Date: 04/08/2024 Noted Allergy Reaction BACLOFEN 03/17/2024 2 - Rash 5 - Intolerance Comments: Headache, very tired MALARONE (ATOVAQUONE-PROGUANIL) 09/10/2015 4 - Hives THIMERSOL (THIMEROSAL) 04/26/2009 Comments: Makes eyes red- thimerosal in contacts Date Reviewed: 03/17/2024 Reviewed by: Aide Marr MA - Fully Assessed Prescriptions as of 04/08/2024 - NUEDEXTA 20-10 mg capsule Take 1 capsule by mouth three times a day. - cyclobenzaprine (FLEXERIL) 5 mg tablet Take 1 tablet by mouth three times a day. - rifAMPin (RIFADIN) 300 mg capsule Take 300 mg by mouth once daily. - Magnesium 200 mg tab Take 1 tablet by mouth once daily. - levothyroxine (SYNTHROID) 112 mcg tablet - nystatin (MYCOSTATIN, NILSTAT) 500,000 unit tab Take 2 tablets by mouth three times a day with meals. - TherBiotic Complete 120 Ct[address] (Klaire/Prothera) Take 1 capsule by mouth once daily. - itraconazole 0.5 % (CPD) 1-2 sprays to each nostril twice daily - Fish Oil-[place]-3 Fatty Acids 300-1,000 mg cap Take by mouth. - Meriva-SR (Monae) decrease inflammation/pain/gut healing Take 1-2 capsules two times daily ----- [facility] [id number] 04-04-2024 [id number] O ID: [id number] Author: NATHAN MADRIGAL PT Service: ? Author Type: Physical Therapist Type: [id number] Filed: 04/04/2024 17:13 Note Text: [facility] Physical Therapy Plan of Care Certification Patient Name: Waldemar Hudson : 1955 CC #: [id number] Date: 04/04/2024 To: Joan Prieto MD From Therapist: Nathan Madrigal PT, ANABELLE RE: Patient Certification/ Recertification Your review, approval and electronic signature are required in order to comply with Payor: [employer] MED[employer]ARE / Plan: [employer] MEDICARE PPO / Product Type: PPO / regulations. 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 She does respond favorably to manual passive bilateral LE and trunk ROM and stretching and strengthening exercises in therapy. She has progressed toward goals. Patient continues to present with impairments in ADL's, gait, independence in exercise, overall function, range of motion, and symptom management that interfere with . Current prognosis is Fair due to: clinical presentation, chronic nature of impairments, limited tolerance to activity, Prognosis may be improved by good support system/ coping skills, within-session changes, positive past response to therapy. She will benefit from continued skilled therapy services to meet the updated goals for this plan of care as noted below. Goals for Episode of Care: created on 04/04/2024 through 05/23/2024 Patient will increase active ROM of bilateral knees to no greater than 10-15 degrees from achieving full knee extension to allow patient to improve postural alignment, to improve body/postural mechanics for transfers / gait pattern , and to decrease falls risks. (Ongoing. Patient arrives with -25 to -40 degrees from full extension bilateral knees that improves to -15 to -25 with passive stretching) Patient will be able to correct postural deviations with minimal assist verbal cues in order to improve postural alignment of trunk during transfers, ambulation, and standing and to decrease current R LE pain. (Ongoing) Decrease R hip/R knee pain to 1-4/10 at rest and with functional activities to allow patient to improve ambulation, transfers, and standing tolerance for ADLs. (Ongoing. Patient rates her R knee pain at 3 out of 10 today and continues to struggle with nighttime pain that wakes her hourly at night) Patient to be able to non-reciprocally negotiate stairs at home with bilateral rail use with assist of for safety as needed and be able to complete this task in 5 minutes as she did previously. (Patient and her feel that the speed of stair negotiation is a little improved. They are looking into installing an elevator) Patient Goals: To reduce my right knee pain New goals added for [facility] Clinic updated 01/09/2024 - Patient education regarding pathophysiology and relationship to deficits presented this date, including exercise recommendations for people with ALS. Including dosage, recovery and intensity. (met) - Patient educated on how to complete home exercise program listed below independently or with caregiver assistance to maintain function, promote wellness, decrease risk of secondary impairments (met) - Patient demonstrates independent and proper use of assistive device to allow for improved walking quality and safety therefore reducing the risk of falls (met) - Patient/ caregiver educated on safe transfers, positioning, and use of adaptive equipment this date to ensure safety for patient and caregiver (met) Recommended Equipment: pivot disc and power wheelchair Planned Interventions, Frequency, and Duration: 2x/week, 6 weeks Total Number of Visits Planned: 12 Patient to be seen for Manual therapy (35414), Therapeutic exercise (35604), Neuromuscular re-education (40814), Self-nursing home management (01548), Therapeutic activities (43254), Patient/Family/Caregiver Education PLAN FOR NEXT VISIT: Continue to focus on bilateral LE passive stretching, trunk/core stretching and strengthening. For further details regarding this patient refer to the Physical Therapy electronically documented visit dated 04/04/2024. Provider Attestation I have reviewed the treatment plan for Waldemar Hudson, [facility]# [id number] for the period of 04/04/24 -- 05/23/24, established on 04/04/2024. Signature certifies the need for therapy services. [facility] CNTHERAPYon 04-04-2024 CNTHERAPY OT/PT/Speech Visit ([facility]) ----- WALEDMAR HUDSON ([id number]) 1955 F Date Time Provider Department 04/04/24 3:45 PM NATHAN [facility]AD[facility]IGAL [facility] Date Time Provider Department Center 04/04/2024 3:45 PM [id number], CYNTHIA*[facility] M Reason for Visit: PT Progress Note [1596] 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] Other Visit Diagnoses:Impaired ambulation [R26.2] Muscle spasticity [M62.838] Impaired flexibility of lower extremity [R29.898] Abnormality of gait [R26.9] Right leg pain [M79.604] Allergies As of Date: 04/04/2024 Noted Allergy Reaction BACLOFEN 03/17/2024 2 - Rash 5 - Intolerance Comments: Headache, very tired MALARONE (ATOVAQUONE-PROGUANIL) 09/10/2015 4 - Hives THIMERSOL (THIMEROSAL) 04/26/2009 Comments: Makes eyes red- thimerosal in contacts Date Reviewed: 03/17/2024 Reviewed by: Aide Marr MA - Fully Assessed Prescriptions as of 04/10/2024 - NUEDEXTA 20-10 mg capsule Take 1 capsule by mouth three times a day. - cyclobenzaprine (FLEXERIL) 5 mg tablet Take 1 tablet by mouth three times a day. - rifAMPin (RIFADIN) 300 mg capsule Take 300 mg by mouth once daily. - Magnesium 200 mg tab Take 1 tablet by mouth once daily. - levothyroxine (SYNTHROID) 112 mcg tablet - nystatin (MYCOSTATIN, NILSTAT) 500,000 unit tab Take 2 tablets by mouth three times a day with meals. - TherBiotic Complete 120 Ct[address] (Klaire/Prothera) Take 1 capsule by mouth once daily. - itraconazole 0.5 % (CPD) 1-2 sprays to each nostril twice daily - Fish Oil-[place]-3 Fatty Acids 300-1,000 mg cap Take by mouth. - Meriva-SR (Monae) decrease inflammation/pain/gut healing Take 1-2 capsules two times daily ----- [facility] CNOVon 04-03-2024 CNOV Office Visit ([facility] ) ----- WALDEMAR HUDSON ([id number]) 1955 F Date Time Provider Department 04/03/24 3:00 PM CORI HOPE During your visit today, we recorded the following information about you: Croi Hope R Ac 04/03/2024 3:59 PM Signed Waldemar Hudson a 68 year old female presents to the acupuncture clinic on 04/03/24 for a follow up visit. Patient identity confirmed by name and : Yes This is the 18 visit for the patient this year It has been 1 week(s) since the last acupuncture treatment. Last treatment date: 03/25/2024 Initial Acupuncture treatment date: 11/12/2023 Chief Complaint: Primary lateral sclerosis, right lateral knee pain, muscle spasticity SUBJECTIVE Patient and I discussed holding off on acupuncture until patient finishes the courses of antibiotics. Patient seems started experiencing restless leg noticeably since 2 weeks ago. Patient's spouse mentions it seemed the condition began after patient stopped NAD infusion. Patient states she noticed more onset of restless leg syndrome with fatigue however she feels more energy since she started taking antibiotics. Today, her restless leg condition on left leg was more than usual with moderate discomfort, I removed the needles 5 minutes earlier than the usual days. Patient's Lyme Disease specialist will direct patient to courses of antibiotics for 2 months. Postponed corticosteroidal injection. 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 Patient might need to hold off on scheduled knee injection as she has bacterial infection. * Past history of thyroid cancer We discussed trying Cryptolepsis as a natural herbal antibiotic approach to fight against Lyme. I provided patient with the product information. Hold off on taking Alfredo Ade Gaytan until she finished baclofen. Cryptolepsis has been ordered. Patient noted her right knee pain was much improved for a few days following the previous acupuncture. Patient has been battling MS since 2012. Patient has history of Lyme disease, mold exposure and thyroid cancer. Thyroidism Trialed PT, dry needling, chiropractic, massage. PAIN ASSESSMENT: Currently experiencing pain Pain level (0 no pain at all to 10 being the worst): 4 OBJECTIVE: Physical Exam: Tenderness: knees and feet Pain with palpation: na ROM: limited ROM Orthopedic Tests: na Tightness: knees Divina/Trigger points: na Visual Inspection Discoloration: na Edema: no Gait/Ambulation: normal Ovalle: good Qi/Patient vitality: normal Alert Well-Groomed Normal Imaging reports Images on file See EPIC Images have been reviewed no TCM Tongue: NA TCM Pulse: thin and weak ASSESSMENT Patient presents with signs and symptoms consistent with the diagnosis. Patient would benefit from acupuncture therapy to address listed deficiencies and return to PLOF. Pt was educated on symptoms, prognosis, plan of care and activity modifications. Pt verbalized understanding and agreed to begin care. TCM Pattern: PLS due to Qi and blood deficiency. TCM Treatment Principle: Calm Ovalle. Promote smooth flow of Qi and blood. Open channel. Reduce pain. PLAN OF CARE Counseled patient on risks of acupuncture treatment including pain, infection, bleeding, and no relief of pain. The patient was positioned comfortably. There was no evidence of infection at the site of needle insertions. Acupuncture Treatment: Treatment/Needle Set 1, Supine: Points: Motor line 2 points bilaterally on the scalp, Jerilyn gu Da austen, SJ3, GB41, ST43, SP9, GB34 15 minutes face to face with patient for set 1 Treatment/Needle Set 2, Supine: Points: R: Xi Dinh, LV8, 3 points on the lateral knee, B: ST36, SP6, KD3 10 minutes face to face with patient for set 2 Calcium were retained for 30 minutes # of needles inserted: 30 # of needles withdrawn: 30 Adjunct techniques used: TDP Infrared Heat Lamp- Applied to Rt. Hip and right knee Patient tolerated the procedure well. UNIVERSAL PROTOCOL / SAFETY CHECKLIST Procedure to be Performed: Acupuncture Sign In: A Moment of CARE was completed. Personnel directly involved with the procedure wore the appropriate PPE (Personal Protective Equipment). Patient/Surrogate Stated/Verified: PATIENT VERIFIED(optional for EMERGENT procedures): Patient name, Date of , Relevant allergies, and The intended procedure Time Out Communication: Intended patient and procedure match the source documents. Consent documented and matches the intended procedure. Sign Out: SIGN OUT (optional for EMERGENT procedures): All instruments, equipment, possible retained foreign bodies accounted for. Trenton Hanson Provider Name: Trenton Hanson 25 Total minutes face to face time spent with patient Acupuncture and [place] herbal therapy are not a substitute for conventional medical diagnosis an (more content not included)... [facility] CNTHERAPYon 04-01-2024 CNTHERAPY OT/PT/Speech Visit ([facility]) ----- WALDEMAR HUDSON ([id number]) 1955 F Date Time Provider Department 04/01/24 3:30 PM DAJA GOMEZ [facility] Date Time Provider Department Center 04/01/2024 3:30 PM [id number], AMBER M [facility] M Reason for Visit: Physical Therapy [503] 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] Other Visit Diagnoses:Impaired ambulation [R26.2] Muscle spasticity [M62.838] Impaired flexibility of lower extremity [R29.898] Abnormality of gait [R26.9] Right leg pain [M79.604] Allergies As of Date: 04/01/2024 Noted Allergy Reaction BACLOFEN 03/17/2024 2 - Rash 5 - Intolerance Comments: Headache, very tired MALARONE (ATOVAQUONE-PROGUANIL) 09/10/2015 4 - Hives THIMERSOL (THIMEROSAL) 04/26/2009 Comments: Makes eyes red- thimerosal in contacts Date Reviewed: 03/17/2024 Reviewed by: Aide Marr MA - Fully Assessed Prescriptions as of 04/01/2024 - NUEDEXTA 20-10 mg capsule Take 1 capsule by mouth three times a day. - cyclobenzaprine (FLEXERIL) 5 mg tablet Take 1 tablet by mouth three times a day. - rifAMPin (RIFADIN) 300 mg capsule Take 300 mg by mouth once daily. - Magnesium 200 mg tab Take 1 tablet by mouth once daily. - levothyroxine (SYNTHROID) 112 mcg tablet - nystatin (MYCOSTATIN, NILSTAT) 500,000 unit tab Take 2 tablets by mouth three times a day with meals. - TherBiotic Complete 120 Ct[address] (Klaire/Prothera) Take 1 capsule by mouth once daily. - itraconazole 0.5 % (CPD) 1-2 sprays to each nostril twice daily - Fish Oil-[place]-3 Fatty Acids 300-1,000 mg cap Take by mouth. - Meriva-SR (Monae) decrease inflammation/pain/gut healing Take 1-2 capsules two times daily ----- Normal [facility] CNTHERAPYon 03-28-2024 CNTHERAPY OT/PT/Speech Visit ([facility]) ----- WALDEMAR HUDSON ([id number]) 1955 F Date Time Provider Department 03/28/24 3:30 PM DAJA GOMEZ [facility] Date Time Provider Department Center 03/28/2024 3:30 PM [id number], AMBER M [facility] Reason for Visit: Physical Therapy [503] 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] Other Visit Diagnoses:Impaired ambulation [R26.2] Muscle spasticity [M62.838] Impaired flexibility of lower extremity [R29.898] Abnormality of gait [R26.9] Right leg pain [M79.604] Allergies As of Date: 03/28/2024 Noted Allergy Reaction BACLOFEN 03/17/2024 2 - Rash 5 - Intolerance Comments: Headache, very tired MALARONE (ATOVAQUONE-PROGUANIL) 09/10/2015 4 - Hives THIMERSOL (THIMEROSAL) 04/26/2009 Comments: Makes eyes red- thimerosal in contacts Date Reviewed: 03/17/2024 Reviewed by: Aide Marr MA - Fully Assessed Prescriptions as of 03/28/2024 - cyclobenzaprine (FLEXERIL) 5 mg tablet Take 1 tablet by mouth three times a day. - rifAMPin (RIFADIN) 300 mg capsule Take 300 mg by mouth once daily. - Magnesium 200 mg tab Take 1 tablet by mouth once daily. - levothyroxine (SYNTHROID) 112 mcg tablet - NUEDEXTA 20-10 mg capsule Take 1 capsule by mouth two times a day. - nystatin (MYCOSTATIN, NILSTAT) 500,000 unit tab Take 2 tablets by mouth three times a day with meals. - TherBiotic Complete 120 Ct. (Klaire/Prothera) Take 1 capsule by mouth once daily. - itraconazole 0.5 % (CPD) 1-2 sprays to each nostril twice daily - Fish Oil-[place]-3 Fatty Acids 300-1,000 mg cap Take by mouth. - Meriva-SR (Monae) decrease inflammation/pain/gut healing Take 1-2 capsules two times daily ----- [facility] CNOVon 03-25-2024 CNOV Office Visit ([place] ) ----- WALDEMAR HUDSON ([id number]) 1955 F Date Time Provider Department 03/25/24 11:00 AM CORI HOPE During your visit today, we recorded the following information about you: Cori Hope R Ac 03/25/2024 1:12 PM Signed Waldemar Hudson a 68 year old female presents to the acupuncture clinic on 03/25/24 for a follow up visit. Patient identity confirmed by name and : Yes This is the 17 visit for the patient this year It has been 2 week(s) since the last acupuncture treatment. Last treatment date: 03/13/2024 Initial Acupuncture treatment date: 11/12/2023 Chief Complaint: Primary lateral sclerosis, right lateral knee pain, muscle spasticity SUBJECTIVE Patient has been experiencing nighttime muscle spasm which has been waking her up. Patient gets involuntary muscle cramps with light pressure or stimulation made to her muscle. She started taking Flexeril without noticing relief yet. Patient's Lyme Disease specialist will direct patient to courses of antibiotics for 2 months. Postponed corticosteroidal injection. 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 Patient might need to hold off on scheduled knee injection as she has bacterial infection. * Past history of thyroid cancer We discussed trying Cryptolepsis as a natural herbal antibiotic approach to fight against Lyme. I provided patient with the product information. Hold off on taking Alfredo Gaytan until she finished baclofen. Cryptolepsis has been ordered. Patient noted her right knee pain was much improved for a few days following the previous acupuncture. Patient has been battling MS since 2012. Patient has history of Lyme disease, mold exposure and thyroid cancer. Thyroidism Trialed PT, dry needling, chiropractic, massage. PAIN ASSESSMENT: Currently experiencing pain Pain level (0 no pain at all to 10 being the worst): 4 OBJECTIVE: Physical Exam: Tenderness: knees and feet Pain with palpation: na ROM: limited ROM Orthopedic Tests: na Tightness: knees Divina/Trigger points: na Visual Inspection Discoloration: na Edema: no Gait/Ambulation: normal Ovalle: good Qi/Patient vitality: normal Alert Well-Groomed Normal Imaging reports Images on file See EPIC Images have been reviewed no TCM Tongue: NA TCM Pulse: thin and weak ASSESSMENT Patient presents with signs and symptoms consistent with the diagnosis. Patient would benefit from acupuncture therapy to address listed deficiencies and return to PLOF. Pt was educated on symptoms, prognosis, plan of care and activity modifications. Pt verbalized understanding and agreed to begin care. TCM Pattern: PLS due to Qi and blood deficiency. TCM Treatment Principle: Calm Ovalle. Promote smooth flow of Qi and blood. Open channel. Reduce pain. PLAN OF CARE Counseled patient on risks of acupuncture treatment including pain, infection, bleeding, and no relief of pain. The patient was positioned comfortably. There was no evidence of infection at the site of needle insertions. Acupuncture Treatment: Treatment/Needle Set 1, Supine: Points: Motor line 2 points bilaterally on the scalp, Jerilyn gu Da austen, SJ3, GB41, ST43, SP9, GB34 15 minutes face to face with patient for set 1 Treatment/Needle Set 2, Supine: Points: R: Xi Dinh, LV8, He Ding, 3 points on the lateral knee, B: ST36, SP6, KD3 10 minutes face to face with patient for set 2 Calcium were retained for 30 minutes # of needles inserted: 31 # of needles withdrawn: 31 Adjunct techniques used: TDP Infrared Heat Lamp- Applied to Rt. Hip and right knee Patient tolerated the procedure well. UNIVERSAL PROTOCOL / SAFETY CHECKLIST Procedure to be Performed: Acupuncture Sign In: A Moment of CARE was completed. Personnel directly involved with the procedure wore the appropriate PPE (Personal Protective Equipment). Patient/Surrogate Stated/Verified: PATIENT VERIFIED(optional for EMERGENT procedures): Patient name, Date of , Relevant allergies, and The intended procedure Time Out Communication: Intended patient and procedure match the source documents. Consent documented and matches the intended procedure. Sign Out: SIGN OUT (optional for EMERGENT procedures): All instruments, equipment, possible retained foreign bodies accounted for. Trenton Hanson Provider Name: Trenton Hanson 25 Total minutes face to face time spent with patient Acupuncture and [place] herbal therapy are not a substitute for conventional medical diagnosis and treatment. Patient agrees that either: 1. A diagnostic exam has been performed by a physician or chiropractor within the last six months regarding the condition for which they are seeking acupuncture treatment. or 2. If no diagnostic exam by a physician or chiropractor has been done within the last six months regard (more content not included)... [facility]PT/Speech Visit ([facility]) ----- WALDEMAR HUDSON ([id number]) 1955 F Date Time Provider Department 03/25/24 3:30 PM [facility] [place] [place] Date Time Provider Department Center 03/25/2024 3:30 PM [id number], AMBER M [facility] Reason for Visit: Physical Therapy [503] 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] Other Visit Diagnoses:Impaired ambulation [R26.2] Muscle spasticity [M62.838] Impaired flexibility of lower extremity [R29.898] Abnormality of gait [R26.9] Right leg pain [M79.604] Allergies As of Date: 03/25/2024 Noted Allergy Reaction BACLOFEN 03/17/2024 2 - Rash 5 - Intolerance Comments: Headache, very tired MALARONE (ATOVAQUONE-PROGUANIL) 09/10/2015 4 - Hives THIMERSOL (THIMEROSAL) 04/26/2009 Comments: Makes eyes red- thimerosal in contacts Date Reviewed: 03/17/2024 Reviewed by: Aide Marr MA - Fully Assessed Prescriptions as of 03/25/2024 - cyclobenzaprine (FLEXERIL) 5 mg tablet Take 1 tablet by mouth three times a day. - rifAMPin (RIFADIN) 300 mg capsule Take 300 mg by mouth once daily. - Magnesium 200 mg tab Take 1 tablet by mouth once daily. - levothyroxine (SYNTHROID) 112 mcg tablet - NUEDEXTA 20-10 mg capsule Take 1 capsule by mouth two times a day. - nystatin (MYCOSTATIN, NILSTAT) 500,000 unit tab Take 2 tablets by mouth three times a day with meals. - TherBiotic Complete 120 Ct[address] (Klaire/Prothera) Take 1 capsule by mouth once daily. - itraconazole 0.5 % (CPD) 1-2 sprays to each nostril twice daily - Fish Oil-[place]-3 Fatty Acids 300-1,000 mg cap Take by mouth. - Meriva-SR (Monae) decrease inflammation/pain/gut healing Take 1-2 capsules two times daily ----- Normal [facility] CNTHERAPYon 03-21-2024 CNTHERAPY OT/PT/Speech Visit ([facility]) ----- WALDEMAR HUDSON ([id number]) 1955 F Date Time Provider Department 03/21/24 3:00 PM NATHAN MADRIGAL [facility] Date Time Provider Department Center 03/21/2024 3:00 PM [id number], CYNTHIA*[facility] Health [facility] M Reason for Visit: Physical Therapy [503] 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] Other Visit Diagnoses:Impaired ambulation [R26.2] Muscle spasticity [M62.838] Impaired flexibility of lower extremity [R29.898] Abnormality of gait [R26.9] Right leg pain [M79.604] Allergies As of Date: 03/21/2024 Noted Allergy Reaction BACLOFEN 03/17/2024 2 - Rash 5 - Intolerance Comments: Headache, very tired MALARONE (ATOVAQUONE-PROGUANIL) 09/10/2015 4 - Hives THIMERSOL (THIMEROSAL) 04/26/2009 Comments: Makes eyes red- thimerosal in contacts Date Reviewed: 03/17/2024 Reviewed by: Aide Marr MA - Fully Assessed Prescriptions as of 03/21/2024 - cyclobenzaprine (FLEXERIL) 5 mg tablet Take 1 tablet by mouth three times a day. - rifAMPin (RIFADIN) 300 mg capsule Take 300 mg by mouth once daily. - Magnesium 200 mg tab Take 1 tablet by mouth once daily. - levothyroxine (SYNTHROID) 112 mcg tablet - NUEDEXTA 20-10 mg capsule Take 1 capsule by mouth two times a day. - nystatin (MYCOSTATIN, NILSTAT) 500,000 unit tab Take 2 tablets by mouth three times a day with meals. - TherBiotic Complete 120 Ct[address] (Klaire/Prothera) Take 1 capsule by mouth once daily. - itraconazole 0.5 % (CPD) 1-2 sprays to each nostril twice daily - Fish Oil-[place]-3 Fatty Acids 300-1,000 mg cap Take by mouth. - Meriva-SR (Monae) decrease inflammation/pain/gut healing Take 1-2 capsules two times daily ----- [facility] Abbie 03-18-2024 PRINCEN Telephone (REHMME) ----- WALDEMAR HUDSON ([id number]) 1955 F Date Time Provider Department 03/18/24 LIA HOPE During your visit today, we recorded the following information about you: Benedicto Ricci, RN 03/18/2024 10:47 AM Signed Spoke to Pharmacist at patient's pharmacy regarding Flexeril prescription sent 03/17/24. Pharmacist informs that their mahan vigil is around $16.00, if run through patient's insurance company, cost is set at $30+. Prior authorization is not required. Medication is in stock at pharmacy. Spoke to patient and who were informed of above message. They are happy with that vigil and will pick up driver medication today. Advised to keep us update on effectiveness or any new, worsening, or persistent symptoms. Allergies As of Date: 03/18/2024 Noted Allergy Reaction BACLOFEN 03/17/2024 2 - Rash 5 - Intolerance Comments: Headache, very tired MALARONE (ATOVAQUONE-PROGUANIL) 09/10/2015 4 - Hives THIMERSOL (THIMEROSAL) 04/26/2009 Comments: Makes eyes red- thimerosal in contacts Date Reviewed: 03/17/2024 Reviewed by: Aide Marr MA - Fully Assessed Reason for Visit: Medication Question [1478] Prescriptions as of 05/06/2024 - NUEDEXTA 20-10 mg capsule Take 1 capsule by mouth three times a day. - cyclobenzaprine (FLEXERIL) 5 mg tablet Take 1 tablet by mouth three times a day. - rifAMPin (RIFADIN) 300 mg capsule Take 300 mg by mouth once daily. - Magnesium 200 mg tab Take 1 tablet by mouth once daily. - levothyroxine (SYNTHROID) 112 mcg tablet - nystatin (MYCOSTATIN, NILSTAT) 500,000 unit tab Take 2 tablets by mouth three times a day with meals. - TherBiotic Complete 120 Ct[address] (Klaire/Prothera) Take 1 capsule by mouth once daily. - itraconazole 0.5 % (CPD) 1-2 sprays to each nostril twice daily - Fish Oil-[place]-3 Fatty Acids 300-1,000 mg cap Take by mouth. - Meriva-SR (Monae) decrease inflammation/pain/gut healing Take 1-2 capsules two times daily Problem List As Of Date 03/18/2024 Noted Resolved PERS HX OF THYROID MALIGNANCY [Z85.850] 05/24/2005 ESOPHAGEAL REFLUX [K21.9] 05/24/2005 FX METATARSAL-CLOSED [S92.309A] 07/12/2005 MALIGN NEOPL THYROID [C73] 11/12/2005 CHOLELITH W CHOLECYS NEC [K80.10] 01/25/2006 GASTRITIS ANTRAL( W/O Hemorrhage) [K29.60] 03/09/2006 SPRAIN SHOULDER/ARM NOS [GSY4987] 06/20/2006 FX PHALANX, FOOT-CLOSED [S92.919A] 08/13/2006 DYSMETABOLIC SYNDROME X [E88.810] 05/21/2007 SPRAIN NOS [T14.8XXA] 08/19/2007 Congenital pes planus [Q66.50] 02/27/2011 Skin lesion [L98.9] 02/28/2011 Other musculoskeletal symptoms referable to anna*07/14/2013 Special screening for malignant neoplasms, colo*10/01/2014 Dysphagia, unspecified(787.20) [R13.10] 10/01/2014 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 GERD without esophagitis [K21.9] 09/06/2016 History of thyroid cancer [Z85.850] 09/06/2016 Hypothyroidism [E03.9] 09/06/2016 Foot cramps [R25.2] 09/06/2016 Menopausal and postmenopausal disorder [N95.9] 09/06/2016 Fatigue [R53.83] 09/06/2016 Vitamin D deficiency [E55.9] 09/06/2016 Rectal itching [L29.0] 02/26/2017 Sleep disturbance [G47.9] 04/22/2018 Impaired ambulation [R26.2] 10/03/2023 Muscle spasticity [M62.838] 10/03/2023 Impaired flexibility of lower extremity [R29.89*10/03/2023 Abnormality of gait [R26.9] 10/03/2023 Right leg pain [M79.604] 10/03/2023 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 PMHx of PLS. Notes onset of symptoms started in 2011. Previously followed by [facility] neurologist. Recently started following with the [facility] at [facility]. Currently following with Dr. Alcaraz. She arrives today for spasticity follow up. 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) Pseudobulbar affect ACTIVE PROBLEM LIST Personal History of Malignant Neoplasm of Thyroid Esophageal Reflux Closed Fracture of Metatarsal Bone(s) Malignant Neoplasm of Thyroid Gland (Hcc) Calculus of Gallbladder With Other Cholecystitis, Without Mention of Obstruction GASTRITIS ANTRAL( W/O Hemorrhage) Sprain and Strain of Unspecified Site of Shoulder and Upper Arm Closed Fracture of One Or More Phalanges of Foot Dysmetabolic Syndrome X Unspecified Site of Sprain and Strain Congenital Pes Planus Skin Lesion Other Musculoskeletal Symptoms Referable to Limbs(729.89) Special Screening for Malignant Neoplasms, Colon Dysphagia, Unspecified(787.20) Motor Neuron Disease (Hcc) Gerd Without Esophagitis History of Thyroid Cancer Hypothyroidism Foot Cramps Menopausal and Postmenopausal Disorder Fatigue Vitamin D Deficiency Rectal Itching Sleep Disturbance Impaired Ambulation Muscle Spasticity Impaired Flexibility of Lower Extremity Abnormality of Gait Right Leg Pain Primary Lateral Sclerosis (Hcc) Decreased Coordination Decreased Barnum With Activities of Daily Living PLAN: ASSESSMENT/PLAN: ASSESSMENT/PLAN: 1. Spasticity - ICD9: 781.0, ICD10: R25.2 (primary diagnosis) - CYCLOBENZAPRINE 5 MG TABLET, baclofen discontinued due to side effects - continue with stretching and exercises daily - will start prior auth for botox injections 2. 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 Pseudobulbar affect - ICD9: 310.81, ICD10: F48.2 - continue nudexta No orders found for this visit on 03/17/24. Subjective: Patient presents with: 6 wk f/u: Spasticity, Primary lateral sclerosis, Pseudobulbar affect, Spastic dysarthria Was taking the baclofen for the spasticity but had to stop due to side effects. Continues to still have issues with mobility and relying more on wheelchair. notes she has declined with function. Spasticity feels worse with her legs. Continues with stretching at home. Also continues to follow with PT. Recent labs/Imaging related to complaint: No new labs/images Medications Reviewed cyclobenzaprine (FLEXERIL) 5 mg tablet Take 1 tablet by mouth three times a day. rifAMPin (RIFADIN) 300 mg capsule Take 300 mg by mouth once daily. Magnesium 200 mg tab Take 1 tablet by mouth once daily. levothyroxine (SYNTHROID) 112 mcg tablet NUEDEXTA 20-10 mg capsule Take 1 capsule by mouth two times a day. (Patient taking differently: Take 1 capsule by mouth two times a day. Taking three times a day.) nystatin (MYCOSTATIN, NILSTAT) 500,000 unit tab Take 2 tablets by mouth three times a day with meals. (Patient taking differently: Take 2 tablets by mouth three times a day with meals. PRN) TherBiotic Complete 120 Ct[address] (Klaire/Prothera) Take 1 capsule by mouth once daily. itraconazole 0.5 % (CPD) 1-2 sprays to each nostril twice daily Fish Oil-[place]-3 Fatty Acids 300-1,000 mg cap Take by mouth. Meriva-SR (Monae) decrease inflammation/pain/gut healing Take 1-2 capsules two times daily OARRS reviewed to confirm/clarify any controlled medications Allergies Reviewed PAST MEDICAL HISTORY: ACTIVE PROBLEM LIST Personal History of Malignant Neoplasm of Thyroid Esophageal Reflux Closed Fracture of Metatarsal Bone(s) Malignant Neoplasm of Thyroid Gland (Hcc) Calculus of Gallbladder With Other Cholecystitis, Without Mention of Obstruction GASTRITIS ANTRAL( W/O Hemorrhage) Sprain and Strain of Unspecified Site of Shoulder and Upper Arm Closed Fracture of One Or More Phalanges of Foot Dysmetabolic Syndrome X Unspecified Site of Sprain and Strain Congenital Pes Planus Skin Lesion Other Musculoskeletal Symptoms Referable to Limbs(934.05) Special Screening for Malignant Neoplasms, Colon Dysphagia, Unspecified(537.90) Motor Neuron Disease (Hcc) Gerd Without Esophagitis History of Thyroid Cancer Hypothyroidism Foot Cramps Menopausal and Postmenopausal Disorder Fatigue Vitamin D Deficiency Rectal Itching Sleep Disturbance Impaired Ambulation Muscle Spasticity Impaired Flexibility of L (more content not included)... 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 - Magnesium 200 mg tab Take 1 tablet by mouth once daily. - baclofen 10 mg tablet Take 0.5 tablets by mouth three times a day for 14 days, THEN 1 tablet three times a day. - levothyroxine (SYNTHROID) 112 mcg tablet - NUEDEXTA 20-10 mg capsule Take 1 capsule by mouth two times a day. - nystatin (MYCOSTATIN, NILSTAT) 500,000 unit tab Take 2 tablets by mouth three times a day with meals. - TherBiotic Complete 120 Ct[address] (Klaire/Prothera) Take 1 capsule by mouth once daily. - itraconazole 0.5 % (CPD) 1-2 sprays to each nostril twice daily - Fish Oil-[place]-3 Fatty Acids 300-1,000 mg cap Take by mouth. - Meriva-SR (Monae) decrease inflammation/pain/gut healing Take 1-2 capsules two times daily ----- Normal [facility] CNOVon 03-13-2024 CNOV Office Visit (KALPANA ) ----- WALDEMAR HUDSON ([id number]) 1955 F Date Time Provider Department 03/13/24 3:00 PM CORI HOPE During your visit today, we recorded the following information about you: Cori Hope R Ac 03/13/2024 3:40 PM Signed Waldemar Hudson a 68 year old female presents to the acupuncture clinic on 03/13/24 for a follow up visit. Patient identity confirmed by name and : Yes This is the 16 visit for the patient this year It has been 1.3 week(s) since the last acupuncture treatment. Last treatment date: 03/04/2024 Initial Acupuncture treatment date: 11/12/2023 Chief Complaint: Primary lateral sclerosis, right lateral knee pain, muscle spasticity SUBJECTIVE Unfortunately, her right knee pain and muscle spasticity has not been improved over the past week. Patient is currently on the course of antibiotics. Her speech has been more comprehensible. Her left ankle became swollen as well over the past week. Patient's Lyme Disease specialist will direct patient to courses of antibiotics for 2 months. Postponed corticosteroidal injection. 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 Patient might need to hold off on scheduled knee injection as she has bacterial infection. * Past history of thyroid cancer We discussed trying Cryptolepsis as a natural herbal antibiotic approach to fight against Lyme. I provided patient with the product information. Hold off on taking Alfredo Gaytan until she finished baclofen. Cryptolepsis has been ordered. Patient noted her right knee pain was much improved for a few days following the previous acupuncture. Patient has been battling MS since 2012. Patient has history of Lyme disease, mold exposure and thyroid cancer. Thyroidism Trialed PT, dry needling, chiropractic, massage. PAIN ASSESSMENT: Currently experiencing pain Pain level (0 no pain at all to 10 being the worst): 4 OBJECTIVE: Physical Exam: Tenderness: knees and feet Pain with palpation: na ROM: limited ROM Orthopedic Tests: na Tightness: knees Divina/Trigger points: na Visual Inspection Discoloration: na Edema: no Gait/Ambulation: normal Ovalle: good Qi/Patient vitality: normal Alert Well-Groomed Normal Imaging reports Images on file See EPIC Images have been reviewed no TCM Tongue: NA TCM Pulse: thin and weak ASSESSMENT Patient presents with signs and symptoms consistent with the diagnosis. Patient would benefit from acupuncture therapy to address listed deficiencies and return to PLOF. Pt was educated on symptoms, prognosis, plan of care and activity modifications. Pt verbalized understanding and agreed to begin care. TCM Pattern: PLS due to Qi and blood deficiency. TCM Treatment Principle: Calm Ovalle. Promote smooth flow of Qi and blood. Open channel. Reduce pain. PLAN OF CARE Counseled patient on risks of acupuncture treatment including pain, infection, bleeding, and no relief of pain. The patient was positioned comfortably. There was no evidence of infection at the site of needle insertions. Acupuncture Treatment: Treatment/Needle Set 1, Supine: Points: Yin Gaytan, motor line 2 points bilaterally on the scalp, ear ovalle men, LI4, SI3, SP9, ST36, R: 3 points on the lateral knee 15 minutes face to face with patient for set 1 Treatment/Needle Set 2, Supine: Points: R: GB34, GB37, Xi Dinh, GB34, B: GB41, ST41, SP6, KD3 10 minutes face to face with patient for set 2 Calcium were retained for 30 minutes # of needles inserted: 31 # of needles withdrawn: 31 Adjunct techniques used: TDP Infrared Heat Lamp- Applied to Rt. Hip and right knee Patient tolerated the procedure well. UNIVERSAL PROTOCOL / SAFETY CHECKLIST Procedure to be Performed: Acupuncture Sign In: A Moment of CARE was completed. Personnel directly involved with the procedure wore the appropriate PPE (Personal Protective Equipment). Patient/Surrogate Stated/Verified: PATIENT VERIFIED(optional for EMERGENT procedures): Patient name, Date of , Relevant allergies, and The intended procedure Time Out Communication: Intended patient and procedure match the source documents. Consent documented and matches the intended procedure. Sign Out: SIGN OUT (optional for EMERGENT procedures): All instruments, equipment, possible retained foreign bodies accounted for. Trenton Hanson Provider Name: Trenton Hanson 25 Total minutes face to face time spent with patient Acupuncture and [place] herbal therapy are not a substitute for conventional medical diagnosis and treatment. Patient agrees that either: 1. A diagnostic exam has been performed by a physician or chiropractor within the last six months regarding the condition for which they are seeking acupuncture treatment. or 2. If no diagnostic exam by a physician or chiropractor has been done wit (more content not included)... 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 - Magnesium 200 mg tab Take 1 tablet by mouth once daily. - baclofen 10 mg tablet Take 0.5 tablets by mouth three times a day for 14 days, THEN 1 tablet three times a day. - levothyroxine (SYNTHROID) 112 mcg tablet - NUEDEXTA 20-10 mg capsule Take 1 capsule by mouth two times a day. - nystatin (MYCOSTATIN, NILSTAT) 500,000 unit tab Take 2 tablets by mouth three times a day with meals. - TherBiotic Complete 120 Ct[address] (Klaire/Prothera) Take 1 capsule by mouth once daily. - itraconazole 0.5 % (CPD) 1-2 sprays to each nostril twice daily - Fish Oil-[place]-3 Fatty Acids 300-1,000 mg cap Take by mouth. 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 - Magnesium 200 mg tab Take 1 tablet by mouth once daily. - baclofen 10 mg tablet Take 0.5 tablets by mouth three times a day for 14 days, THEN 1 tablet three times a day. - levothyroxine (SYNTHROID) 112 mcg tablet - NUEDEXTA 20-10 mg capsule Take 1 capsule by mouth two times a day. - nystatin (MYCOSTATIN, NILSTAT) 500,000 unit tab Take 2 tablets by mouth three times a day with meals. - TherBiotic Complete 120 Ct[address] (Klaire/Prothera) Take 1 capsule by mouth once daily. - itraconazole 0.5 % (CPD) 1-2 sprays to each nostril twice daily - Fish Oil-[place]-3 Fatty Acids 300-1,000 mg cap Take by mouth. - Meriva-SR (Monae) decrease inflammation/pain/gut healing Take 1-2 capsules two times daily ----- Normal [facility] CNOVon 03-04-2024 CNOV Office Visit (WELLME ) ----- WALDEMAR HUDSON ([id number]) 1955 F Date Time Provider Department 03/04/24 3:30 PM CORI HOPE During your visit today, we recorded the following information about you: Cori Hope R Ac 03/04/2024 4:20 PM Signed Waldemar Hudson a 68 year old female presents to the acupuncture clinic on 03/04/24 for a follow up visit. Patient identity confirmed by name and : Yes This is the 15 visit for the patient this year It has been 1 week(s) since the last acupuncture treatment. Last treatment date: 02/28/2024 Initial Acupuncture treatment date: 11/12/2023 Chief Complaint: Primary lateral sclerosis, right lateral knee pain, muscle spasticity SUBJECTIVE Patient's Lyme Disease specialist will direct patient to courses of antibiotics for 2 months. Postponed corticosteroidal injection. Swelling in right ankle seems slightly decreased over the past week. Spasticity has been improved, not experiencing it as severe as before. 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 Patient might need to hold off on scheduled knee injection as she has bacterial infection. * Past history of thyroid cancer We discussed trying Cryptolepsis as a natural herbal antibiotic approach to fight against Lyme. I provided patient with the product information. Hold off on taking Alfredo Ade Ovalleg Gaytan until she finished baclofen. Cryptolepsis has been ordered. Patient noted her right knee pain was much improved for a few days following the previous acupuncture. Patient has been battling MS since 2012. Patient has history of Lyme disease, mold exposure and thyroid cancer. Thyroidism Trialed PT, dry needling, chiropractic, massage. PAIN ASSESSMENT: Currently experiencing pain Pain level (0 no pain at all to 10 being the worst): 4 OBJECTIVE: Physical Exam: Tenderness: knees and feet Pain with palpation: na ROM: limited ROM Orthopedic Tests: na Tightness: knees Divina/Trigger points: na Visual Inspection Discoloration: na Edema: no Gait/Ambulation: normal Ovalle: good Qi/Patient vitality: normal Alert Well-Groomed Normal Imaging reports Images on file See EPIC Images have been reviewed no TCM Tongue: NA TCM Pulse: thin and weak ASSESSMENT Patient presents with signs and symptoms consistent with the diagnosis. Patient would benefit from acupuncture therapy to address listed deficiencies and return to PLOF. Pt was educated on symptoms, prognosis, plan of care and activity modifications. Pt verbalized understanding and agreed to begin care. TCM Pattern: PLS due to Qi and blood deficiency. TCM Treatment Principle: Calm Ovalle. Promote smooth flow of Qi and blood. Open channel. Reduce pain. PLAN OF CARE Counseled patient on risks of acupuncture treatment including pain, infection, bleeding, and no relief of pain. The patient was positioned comfortably. There was no evidence of infection at the site of needle insertions. Acupuncture Treatment: Treatment/Needle Set 1, Supine: Points: Yin Gaytan, motor line 2 points bilaterally on the scalp, ear ovalle men, LI4, SP9, R: 3 points on the lateral knee 15 minutes face to face with patient for set 1 Treatment/Needle Set 2, Supine: Points: R: GB34, ST36, ST34, Esquivel Chi, Xi Dinh, SP10, He ding, B: GB41, SP6, KD3 10 minutes face to face with patient for set 2 Calcium were retained for 30 minutes # of needles inserted: 30 # of needles withdrawn: 30 Adjunct techniques used: TDP Infrared Heat Lamp- Applied to Rt. Hip and right knee Patient tolerated the procedure well. UNIVERSAL PROTOCOL / SAFETY CHECKLIST Procedure to be Performed: Acupuncture Sign In: A Moment of CARE was completed. Personnel directly involved with the procedure wore the appropriate PPE (Personal Protective Equipment). Patient/Surrogate Stated/Verified: PATIENT VERIFIED(optional for EMERGENT procedures): Patient name, Date of , Relevant allergies, and The intended procedure Time Out Communication: Intended patient and procedure match the source documents. Consent documented and matches the intended procedure. Sign Out: SIGN OUT (optional for EMERGENT procedures): All instruments, equipment, possible retained foreign bodies accounted for. Trenton Hanson Provider Name: Trenton Hanson 25 Total minutes face to face time spent with patient Acupuncture and Bur[place]ian herbal therapy are not a substitute for conventional medical diagnosis and treatment. Patient agrees that either: 1. A diagnostic exam has been performed by a physician or chiropractor within the last six months regarding the condition for which they are seeking acupuncture treatment. or 2. If no diagnostic exam by a physician or chiropractor has been done within the last six months regarding the condition for which patient is seeking treatment, the Licensed Ac (more content not included)... 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 - Magnesium 200 mg tab Take 1 tablet by mouth once daily. - baclofen 10 mg tablet Take 0.5 tablets by mouth three times a day for 14 days, THEN 1 tablet three times a day. - levothyroxine (SYNTHROID) 112 mcg tablet - NUEDEXTA 20-10 mg capsule Take 1 capsule by mouth two times a day. - nystatin (MYCOSTATIN, NILSTAT) 500,000 unit tab Take 2 tablets by mouth three times a day with meals. - TherBiotic Complete 120 Ct[address] (Klaire/Prothera) Take 1 capsule by mouth once daily. - itraconazole 0.5 % (CPD) 1-2 sprays to each nostril twice daily - Fish Oil-[place]-3 Fatty Acids 300-1,000 mg cap Take by mouth. - Meriva-SR (Monae) decrease inflammation/pain/gut healing Take 1-2 capsules two times daily ----- Normal [facility] [id number] 02-29-2024 [id number] O ID: [id number] Author: NATHAN MADRIGAL PT Service: ? Author Type: Physical Therapist Type: [id number] Filed: 02/29/2024 17:11 Note Text: [facility] Physical Therapy Plan of Care Certification Patient Name: Waldemar Hudson : 1955 [facility] #: [id number] Date: 02/29/2024 To: Joan Prieto MD From Therapist: Nathan Madrigal PT, ANABELLE RE: Patient Certification/ Recertification Your review, approval and electronic signature are required in order to comply with Payor: [employer] MEDICARE / Plan: [employer] MEDICARE PPO / Product Type: PPO / regulations. The identified Physical Therapy PLAN OF CARE for the patient is as follows: G12.20 Motor neuron disease (HCC) (primary encounter diagnosis) R26.2 Impaired ambulation M62.838 Muscle spasticity R29.898 Impaired flexibility of lower extremity R26.9 Abnormality of gait M79.604 Right leg pain PLAN OF CARE UPDATE: Assessment: Waldemar Hudson demonstrates ongoing complaint of R knee pain and bilateral LE hypertonia and she has responded well to manual passive bilateral LE and trunk ROM and stretching as well as bilateral LE strengthening exercises. She has progressed toward goals. Patient continues to present with impairments in ADL's, gait, independence in exercise, overall function, posture, range of motion, strength, and symptom management that interfere with rising from a chair, standing, walking, stair negotiation Patient now has a power wheelchair and a pivot disc to use with stand pivot transfers. She has difficulty with walking with her WW for short distances due to the R knee pain.. Current prognosis is Fair due to: clinical presentation, chronic nature of impairments, limited tolerance to activity, Prognosis may be improved by good support system/ [place], positive past response to therapy. She will benefit from continued skilled therapy services to meet the updated goals for this plan of care as noted below. Goals for Episode of Care: created on 02/29/2024 through 04/18/2024 Patient will increase active ROM of bilateral knees to no greater than 10-15 degrees from achieving full knee extension to allow patient to improve postural alignment, to improve body/postural mechanics for transfers / gait pattern , and to decrease falls risks. (Ongoing) Patient will be able to correct postural deviations with minimal assist verbal cues in order to improve postural alignment of trunk during transfers, ambulation, and standing and to decrease current R LE pain. (Ongoing) Decrease R hip/R knee pain to 1-4/10 at rest and with functional activities to allow patient to improve ambulation, transfers, and standing tolerance for ADLs. (Ongoing. Patient rates her R knee pain at 3 out of 10 today and struggles with nighttime pain that keeps her up at night) Patient to be able to non-reciprocally negotiate stairs at home with bilateral rail use with assist of for safety as needed and be able to complete this task in 5 minutes as she did previously. (No changes per patient and her and they are looking into installing an elevator) Patient Goals: To reduce my right knee pain New goals added for ALS Clinic updated 01/09/2024 - Patient education regarding pathophysiology and relationship to deficits presented this date, including exercise recommendations for people with ALS. Including dosage, recovery and intensity. (met) - Patient educated on how to complete home exercise program listed below independently or with caregiver assistance to maintain function, promote wellness, decrease risk of secondary impairments (met) - Patient demonstrates independent and proper use of assistive device to allow for improved walking quality and safety therefore reducing the risk of falls (met) - Patient/ caregiver educated on safe transfers, positioning, and use of adaptive equipment this date to ensure safety for patient and caregiver (met) Recommended Equipment: pivot disc and power wheelchair Planned Interventions, Frequency, and Duration: 2x/week, 6 weeks Total Number of Visits Planned: 12 Patient to be seen for Therapeutic exercise (15117), Neuromuscular re-education (62387), Manual therapy (00243), Therapeutic activities (22878), Self-nursing home management (21699), Patient/Family/Caregiver Education, Orthosis / DME PLAN FOR NEXT VISIT: Resume exercises not completed this date during next therapy session. For further details regarding this patient refer to the Physical Therapy electronically documented visit dated 02/29/2024. Provider Attestation I have reviewed the treatment plan for Waldemar Hudson, [facility]# [id number] for the period of 02/29/24 -- 04/18/24, established on 02/29/2024. Signature certifies the need for therapy services. 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 - Magnesium 200 mg tab Take 1 tablet by mouth once daily. - baclofen 10 mg tablet Take 0.5 tablets by mouth three times a day for 14 days, THEN 1 tablet three times a day. - levothyroxine (SYNTHROID) 112 mcg tablet - NUEDEXTA 20-10 mg capsule Take 1 capsule by mouth two times a day. - nystatin (MYCOSTATIN, NILSTAT) 500,000 unit tab Take 2 tablets by mouth three times a day with meals. - TherBiotic Complete 120 Ct[address] (Klaire/Prothera) Take 1 capsule by mouth once daily. - itraconazole 0.5 % (CPD) 1-2 sprays to each nostril twice daily - Fish Oil-[place]-3 Fatty Acids 300-1,000 mg cap Take by mouth. - Meriva-SR (Monae) decrease inflammation/pain/gut healing Take 1-2 capsules two times daily ----- Normal [facility] CNOVon 02-28-2024 CNOV Office Visit (WELLME ) ----- JAXWALDEMAR ([id number]) 1955 F Date Time Provider Department 02/28/24 3:00 PM CORI HOPE During your visit today, we recorded the following information about you: Cori Hope R 02/28/2024 4:03 PM Signed Waldemar Hudson a 68 year old female presents to the acupuncture clinic on 02/28/24 for a follow up visit. Patient identity confirmed by name and : Yes This is the 14 visit for the patient this year It has been 2 week(s) since the last acupuncture treatment. Last treatment date: 02/14/2024 Initial Acupuncture treatment date: 11/12/2023 Chief Complaint: Primary lateral sclerosis, right lateral knee pain, muscle spasticity SUBJECTIVE Patient returns with no significant change in condition. Swelling in right ankle has been more noticeable over the past 2 weeks. Patient stopped taking Baclofen as it has been giving her more side effects than benefit. She has had blood test for Lyme Disease, seeing an independent Lyme specialist. 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 Patient might need to hold off on scheduled knee injection as she has bacterial infection. * Past history of thyroid cancer We discussed trying Cryptolepsis as a natural herbal antibiotic approach to fight against Lyme. I provided patient with the product information. Hold off on taking Alfredo Gaytan until she finished baclofen. Cryptolepsis has been ordered. Patient noted her right knee pain was much improved for a few days following the previous acupuncture. Patient has been battling MS since 2012. Patient has history of Lyme disease, mold exposure and thyroid cancer. Thyroidism Trialed PT, dry needling, chiropractic, massage. PAIN ASSESSMENT: Currently experiencing pain Pain level (0 no pain at all to 10 being the worst): 4 OBJECTIVE: Physical Exam: Tenderness: knees and feet Pain with palpation: na ROM: limited ROM Orthopedic Tests: na Tightness: knees Divina/Trigger points: na Visual Inspection Discoloration: na Edema: no Gait/Ambulation: normal Ovalle: good Qi/Patient vitality: normal Alert Well-Groomed Normal Imaging reports Images on file See EPIC Images have been reviewed no TCM Tongue: NA TCM Pulse: thin and weak ASSESSMENT Patient presents with signs and symptoms consistent with the diagnosis. Patient would benefit from acupuncture therapy to address listed deficiencies and return to PLOF. Pt was educated on symptoms, prognosis, plan of care and activity modifications. Pt verbalized understanding and agreed to begin care. TCM Pattern: PLS due to Qi and blood deficiency. TCM Treatment Principle: Calm Ovalle. Promote smooth flow of Qi and blood. Open channel. Reduce pain. PLAN OF CARE Counseled patient on risks of acupuncture treatment including pain, infection, bleeding, and no relief of pain. The patient was positioned comfortably. There was no evidence of infection at the site of needle insertions. Acupuncture Treatment: Treatment/Needle Set 1, Supine: Points: Yin Gaytan, motor line 2 points bilaterally on the scalp, ear ovalle men, Jan Zenon, Ling Gu, Da Austen, SP9, R: SJ3, SI3 15 minutes face to face with patient for set 1 Treatment/Needle Set 2, Supine: Points: R: GB34, ST36, ST34, Esquivel Chi, Xi Dinh, SP10, B: GB41, ST43, SP9, SP6, KD3 10 minutes face to face with patient for set 2 Calcium were retained for 30 minutes # of needles inserted: 32 # of needles withdrawn: 32 Adjunct techniques used: TDP Infrared Heat Lamp- Applied to Rt. Hip and right knee Patient tolerated the procedure well. UNIVERSAL PROTOCOL / SAFETY CHECKLIST Procedure to be Performed: Acupuncture Sign In: A Moment of CARE was completed. Personnel directly involved with the procedure wore the appropriate PPE (Personal Protective Equipment). Patient/Surrogate Stated/Verified: PATIENT VERIFIED(optional for EMERGENT procedures): Patient name, Date of , Relevant allergies, and The intended procedure Time Out Communication: Intended patient and procedure match the source documents. Consent documented and matches the intended procedure. Sign Out: SIGN OUT (optional for EMERGENT procedures): All instruments, equipment, possible retained foreign bodies accounted for. Trenton Hanson Provider Name: Trenton Hanson 25 Total minutes face to face time spent with patient Acupuncture and Bur[place]ian herbal therapy are not a substitute for conventional medical diagnosis and treatment. Patient agrees that either: 1. A diagnostic exam has been performed by a physician or chiropractor within the last six months regarding the condition for which they are seeking acupuncture treatment. or 2. If no diagnostic exam by a physician or chiropractor has been done within the last six months regarding the condition for which patient is s (more content not included)... [facility] CNCOon 02-26-2024 CNCO Letter Text Normal [facility] CNOVon 02-26-2024 CNOV Office Visit (PTS CH R) ----- WALDEMAR HUDSON ([id number]) 1955 F Date Time Provider Department 02/26/24 10:00 AM VANESSA TOBAR PTS [facility] During your visit today, we recorded the following information about you: Vanessa Tobar CCC-PRESCHOOL ADVISER 02/28/2024 12:29 PM Signed AUGMENTATIVE AND ALTERNATIVE COMMUNICATION EVALUATION SPEECH AND LANGUAGE THERAPY SERVICE DATE: 02/26/2024 : 1955 Primary Care Physician: Keren Dumont MD Referring Physician: Joan Prieto MD Waldemar Hudson was seen for Speech Language Therapy at 1000 for Co-treat with OT for 100 minutes of SLT AUG/ Communication Eval (28826). Augmentative and Alternative Communication (AAC) Evaluation Patient Name: Waldemar Hudson Date of : 1955 Date of Evaluation: 02/26/2024 Patient seen at 1005 for 100 minutes. [employer] Specialist services required for session: no. Patient was accompanied to this evaluation by [facility] Reason for Visit: Waldemar Hudson is here with her family today to determine if she would benefit from augmentative and alternative communication strategies. Abuse screening: Signs/ reports of abuse or neglect: No Behavior: alert, attentive, and compliant Referral Source: Dr. 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 Vocational History: Patient does not currently work. 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 Therapies: Patient currently receives physical therapy 2x/week. Acupuncture 1x/week at [facility]. Coordination of Care: Communication regarding this evaluation and use of a Augmentative and Alternative Communication across settings has been initiated with additional providers including: ALS team and outpatient therapies Previous Speech Generating Device (SGD) Use: The patient does not currently own an SGD. Family Support: Patient lives with Dieter and daughter. Two additional children live out of town ([place] and [place]). Additional support is available through family and friends who help to care for the patient and provide assistance as needed. Hearing Patient possess the hearing abilities to effectively use an augmentative and alternative communication system to communicate functionally. No change in hearing status since diagnosis of ALS. Vision Patient does possess the visual ability to effectively use an AAC system to communicate functionally. Patient does not have a change in vision status since diagnosis of ALS. Long time wearer of glasses (since 5th grade). Recently had bilateral cataract surgery recently and this has improved vision significantly. Speech Oral Motor: Structures: appear intact Function: not functional for communication secondary to severe dysarthria Current Speech Status: Not functional for communication needs: Primarily uses word combinations and phrases/sentences with 50%-75% intelligibility with familiar caregivers and 25% or less intelligibility with unfamiliar caregivers. Patient's speaking needs cannot be met using natural communication (verbal speech, gestures) or low-technology speaking devices. Respiratory Status: Patient has adequate breath support to allow for verbal communication. However, severe dysarthria persists despite breath support. Physical Status Patient does posses the physical abilities to effectively use an AAC system and required accessories to communicate functionally. In w/c every day - stressless recliner favorite chair when sitting at her computer or will sit in her office chair. 3 weeks has had w/c - power w/c R knee painful; L foot drop Left handed - lost more function in her left hand first , now losing function in R hand and starting to struggle with her voice and communication Can still do a lot of things with her right hand - not writing anything by hand at this time. Typing is okay, but can be challenging - schilling and ugarte technique to type Rubysophic computer has at home and talked about keyboard function modifications Bed rail and pivoter has helped a lot with transfers - got from the ALS clinic doing majority of all transfers Daughter is currently living 3 doors down from them in a town home. also assists a lot with all dressing and ADL skills Doing a chin tuck with her swallowing - drinking smoothies and sparkling water Taking a medication for her saliva management - and reported it has helped Able to feed self at this time - build manager weight fork has helped - can grasp a regular fork still Pt reported she is still able to wash her own hair using both arms Description of pertinent considerations (more content not included)... Normal [facility] CNTHERAPYon 02-26-2024 CNTHERAPY OT/PT/Speech Visit ( PTS CHR) ----- WALDEMAR HUDSON ([id number]) 1955 F Date Time Provider Department 02/26/24 10:00 AM ELA FERNÁNDEZ PTS [facility] Date Time Provider Department Center 02/26/2024 10:00 AM [id number], JULIE PTS [facility] Reason for Visit: OT EVAL [748] Primary Visit Diagnosis:ALS (amyotrophic lateral sclerosis) ([facility]) [G12.21] Allergies As of Date: 02/26/2024 Noted Allergy Reaction MALARONE (ATOVAQUONE-PROGUANIL) 09/10/2015 4 - Hives THIMERSOL (THIMEROSAL) 04/26/2009 Comments: Makes eyes red- thimerosal in contacts Date Reviewed: 01/31/2024 Reviewed by: Lia Hope APRN.DEPUTY FIRE MARSHAL - Fully Assessed Prescriptions as of 03/03/2024 - rifAMPin (RIFADIN) 300 mg capsule Take 300 mg by mouth once daily. - Magnesium 200 mg tab Take 1 tablet by mouth once daily. - baclofen 10 mg tablet Take 0.5 tablets by mouth three times a day for 14 days, THEN 1 tablet three times a day. - levothyroxine (SYNTHROID) 112 mcg tablet - NUEDEXTA 20-10 mg capsule Take 1 capsule by mouth two times a day. - nystatin (MYCOSTATIN, NILSTAT) 500,000 unit tab Take 2 tablets by mouth three times a day with meals. - TherBiotic Complete 120 Ct[address] (Klaire/Prothera) Take 1 capsule by mouth once daily. - itraconazole 0.5 % (CPD) 1-2 sprays to each nostril twice daily - Fish Oil-[place]-3 Fatty Acids 300-1,000 mg cap Take by mouth. 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 - Magnesium 200 mg tab Take 1 tablet by mouth once daily. - baclofen 10 mg tablet Take 0.5 tablets by mouth three times a day for 14 days, THEN 1 tablet three times a day. - levothyroxine (SYNTHROID) 112 mcg tablet - NUEDEXTA 20-10 mg capsule Take 1 capsule by mouth two times a day. - nystatin (MYCOSTATIN, NILSTAT) 500,000 unit tab Take 2 tablets by mouth three times a day with meals. - TherBiotic Complete 120 Ct. (Klaire/Prothera) Take 1 capsule by mouth once daily. - itraconazole 0.5 % (CPD) 1-2 sprays to each nostril twice daily - Fish Oil-[place]-3 Fatty Acids 300-1,000 mg cap Take by mouth. - Meriva-SR (Monae) decrease inflammation/pain/gut healing Take 1-2 capsules two times daily ----- Normal [facility] Calprotectin (Stl) [Mass/Mas s]on 02-15-2024 CALPROTECTIN, FECAL INTERP Normal Normal Normal [facility] Comment on above: Order Comment: Speci men Type: STOOL SPECIMENOrdering Facility: [facility] Address: [address] [place] [address] Result Comment: On 2022, [facility] [employer] implemented a new fecal calprotectin method, the D[employer] Liaison Calprotectin assay. For assistance with interpretation of results in patients undergoing serial monitoring, contact Client Services at [phone] or [phone] to discuss options, preferably within 7 days of issuing this report. Interpretation: <50.0 ug/g: Normal 50.0 ug/g - 120.0 ug/g: Borderline elevated. Re-evaluation in 4-6 weeks is recommended if clinically indicated. >120.0 ug/g: Elevated Performed By: #### 3 8445-3 ####[facility] LABCLIA [id number] [address] [place] CALPROTECTIN, FECAL QUANTITATIVE 18.8 ug/g Normal <50 [facility] Comment on above: Order Comment: Speci men Type: STOOL SPECIMENOrdering Facility: [facility] Address: [address] [place] [address] Performed By: #### 3 8445-3 ####[facility] LABCLIA [id number] [address] OF [facility] CNOVon 02-14-2024 CNOV Office Visit ([facility]NA ) ----- WALDEMAR HUDSON ([id number]) 1955 F Date Time Provider Department 02/14/24 3:30 PM CORI HOPE During your visit today, we recorded the following information about you: Cori Hope R Ac 02/14/2024 5:03 PM Signed Waldemar Hudson a 68 year old female presents to the acupuncture clinic on 02/14/24 for a follow up visit. Patient identity confirmed by name and : Yes This is the 13 visit for the patient this year It has been 1 week(s) since the last acupuncture treatment. Last treatment date: 02/07/2024 Initial Acupuncture treatment date: 11/12/2023 Chief Complaint: Primary lateral sclerosis, right lateral knee pain, muscle spasm SUBJECTIVE Patient returns with worsened pain in right knee and muscle spasticity due to baclofen side effects. The provider who prescribed the medicine advised patient to taper off from the med. Patient would still experience flare up of right knee pain while sleeping. Follow up in 2 weeks going on vacation, shared my opinion on trying corticosteroidal injection on right knee. We discussed trying Cryptolepsis as a natural herbal antibiotic approach to fight against Lyme. I provided patient with the product information. Hold off on taking Alfredo Gaytan until she finished baclofen. Cryptolepsis has been ordered. Patient noted her right knee pain was much improved for a few days following the previous acupuncture. Patient has been battling MS since 2012. Patient has history of Lyme disease, mold exposure and thyroid cancer. Thyroidism Trialed PT, dry needling, chiropractic, massage. PAIN ASSESSMENT: Currently experiencing pain Pain level (0 no pain at all to 10 being the worst): 4 OBJECTIVE: Physical Exam: Tenderness: knees and feet Pain with palpation: na ROM: limited ROM Orthopedic Tests: na Tightness: knees Divina/Trigger points: na Visual Inspection Discoloration: na Edema: no Gait/Ambulation: normal Ovalle: good Qi/Patient vitality: normal Alert Well-Groomed Normal Imaging reports Images on file See EPIC Images have been reviewed no TCM Tongue: NA TCM Pulse: thin and weak ASSESSMENT Patient presents with signs and symptoms consistent with the diagnosis. Patient would benefit from acupuncture therapy to address listed deficiencies and return to PLOF. Pt was educated on symptoms, prognosis, plan of care and activity modifications. Pt verbalized understanding and agreed to begin care. TCM Pattern: PLS due to Qi and blood deficiency. TCM Treatment Principle: Calm Ovalle. Promote smooth flow of Qi and blood. Open channel. Reduce pain. PLAN OF CARE Counseled patient on risks of acupuncture treatment including pain, infection, bleeding, and no relief of pain. The patient was positioned comfortably. There was no evidence of infection at the site of needle insertions. Acupuncture Treatment: Treatment/Needle Set 1, Supine: Points: Yin Gaytan, motor line 2 points bilaterally on the scalp, ear yamile rucker, Jan Yarbrough, Brittni Ward, Da Austen, SP9, R: SJ3, SI3 15 minutes face to face with patient for set 1 Treatment/Needle Set 2, Supine: Points: R: GB34, Esquivel Chi, SP9, Si MA points 3, Xi Dinh, SP10, He Ding, B: GB41, ST43 10 minutes face to face with patient for set 2 Calcium were retained for 30 minutes # of needles inserted: 34 # of needles withdrawn: 34 Adjunct techniques used: TDP Infrared Heat Lamp- Applied to Rt. Hip and right knee Patient tolerated the procedure well. UNIVERSAL PROTOCOL / SAFETY CHECKLIST Procedure to be Performed: Acupuncture Sign In: A Moment of CARE was completed. Personnel directly involved with the procedure wore the appropriate PPE (Personal Protective Equipment). Patient/Surrogate Stated/Verified: PATIENT VERIFIED(optional for EMERGENT procedures): Patient name, Date of , Relevant allergies, and The intended procedure Time Out Communication: Intended patient and procedure match the source documents. Consent documented and matches the intended procedure. Sign Out: SIGN OUT (optional for EMERGENT procedures): All instruments, equipment, possible retained foreign bodies accounted for. Trenton Hanson Provider Name: Trenton Hanson 25 Total minutes face to face time spent with patient Acupuncture and [place] herbal therapy are not a substitute for conventional medical diagnosis and treatment. Patient agrees that either: 1. A diagnostic exam has been performed by a physician or chiropractor within the last six months regarding the condition for which they are seeking acupuncture treatment. or 2. If no diagnostic exam by a physician or chiropractor has been done within the last six months regarding the condition for which patient is seeking treatment, the Processing Analyst, per [place] Law, recommends that this diagnostic exam be performed. Referri (more content not included)... 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 evaluation. PMHx of PLS. Notes onset of symptoms started in 2011. Previously followed by [facility] neurologist. Recently started following with the ALS Clinic at [facility]. Currently following with Dr. Alcaraz. She was referred over by neurology for spasticity evaluation. Subjective: Patient presents with: New Patient: Spasticity legs, stomach and hands Notes symptoms started back in . She notes the weakness started in the left leg then the right. Currently she is weak in all extremities and has difficulty with speech. Denies any difficulty with breathing. She currently follows with ALS/PLS clinic at the [facility]. Currently gets PT at [facility] and working on getting back into speech therapy. Was prescribed baclofen recently at her last neurology appt but states the medication never came so she has not tried anything at this point for the spasticity. She also follows with integrative medicine for acupuncture. She was evaluated and given a power wheelchair about two weeks ago which has helped with getting some independence back. She will still use walker at times with assistance. Neuro: -Other: PLS Function: -Self care: Does need assistance -Mobility: uses power wheelchair. -Gait/stairs: -Falls: Thinks she has had one fall within the past 6 months while trying to go to the bathroom. Weakness: All extremity weakness. Tone/Deformity: Increased tone in all extremities. Pain: notes pain due to the spasms in bilateral legs and abdomen. Notes she has right knee pain as well. Takes THC/CBD gummies to help with the pain. Neuropathic: Occasionally will get stabbing pain in left foot. Balance: feels she has no balance Hearing/Vision: Denies any hearing changes, recently got cataract surgery and vision has gotten better. Cognition: Alert and oriented x4. Denies any memory issues. Sleep: Inturrupted sleep due to right knee and right hip pain. She has to get up multiple times through out the night to reposition and sit up to get the pain to subside. Skin: Denies any pressure injuries or open wounds. Bowel: Continent. Bladder: urge incontinence has gotten better. Respiratory/cough: Denies any SOB at rest, notes she will get SOB with exertion. Also will get spasms occasionally in her chest. Assistive devices - will use a pivot board for transfers -Wheelchair Recent labs/Imaging related to complaint: MRI BRAIN WO IVCON 10/23/22 FINDINGS: No abnormal areas of diffusion restriction to suggest acute infarct. No acute intracranial hemorrhage or extra-axial fluid collection. No mass, mass-effect, or midline shift. No abnormal foci of susceptibility artifact to suggest hemorrhage. Medications Reviewed rifAMPin (RIFADIN) 300 mg capsule Take 300 mg by mouth once daily. levothyroxine (SYNTHROID) 112 mcg tablet NUEDEXTA 20-10 mg capsule Take 1 capsule by mouth two times a day. (Patient taking differently: Take 1 capsule by mouth two times a day. Taking three times a day.) TherBiotic Complete 120 Ct[address] (Klaire/Prothera) Take 1 capsule by mouth once daily. Fish Oil-[place]-3 Fatty Acids 300-1,000 mg cap Take by mouth. Meriva-SR (Monae) decrease inflammation/pain/gut healing Take 1-2 capsules two times daily Magnesium 200 mg tab Take 1 tablet by mouth once daily. baclofen 10 mg tablet Take 0.5 tablets by mouth three times a day for 14 days, THEN 1 tablet three times a day. nystatin (MYCOSTATIN, NILSTAT) 500,000 unit tab Take 2 tablets by mouth three times a day with meals. (Patient taking differently: Take 2 tablets by mouth three times a day with meals. PRN) itraconazole 0.5 % (CPD) 1-2 sprays to each nostril twice daily OARRS reviewed to confirm/clarify any controlled medications Allergies Reviewed PAST MEDICAL HISTORY: ACTIVE PROBLEM LIST Personal History of Malignant Neoplasm of Thyroid Esophageal Reflux Closed Fracture of Metatarsal Bone(s) Malignant Neoplasm of Thyroid Gland (Hcc) Calculus of Gallbladder With Other Cholecystitis, Without Mention of Obstruction GASTRITIS ANTRAL( W/O Hemorrhage) Sprain and Strain of Unspecified Site of Shoulder and Upper Arm Closed Fracture of One Or More Phalanges of Foot Dysmetabolic Syndrome X Unspecified Site of Sprain and Strain Congenital Pes Planus Skin Lesion Other Mus (more content not included)... Normal [facility] [id number] 01-29-2024 [id number] HNO ID: [id number] Author: NATHAN MADRIGAL PT Service: ? Author Type: Physical Therapist Type: [id number] Filed: 01/29/2024 18:36 Note Text: [facility] Physical Therapy Plan of Care Certification Patient Name: Waldemar Hudson : 1955 [facility] #: [id number] Date: 01/29/2024 To: Joan Prieto MD From Therapist: Nathan Madrigal PT, ANABELLE RE: Patient Certification/ Recertification Your review, approval and electronic signature are required in order to comply with Payor: AET MEDICARE / Plan: AET MEDICARE PPO / Product Type: PPO / regulations. 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 She has progressed toward goals. Patient continues to present with impairments in ADL's, gait, independence in exercise, overall function, posture, range of motion, and symptom management that interfere with rising from a chair, standing, walking, stair negotiation . Current prognosis is Fair due to: clinical presentation, chronic nature of impairments, limited tolerance to activity, Prognosis may be improved by good support system/ coping skills, positive past response to therapy. She will benefit from continued skilled therapy services to meet the updated goals for this plan of care as noted below. Goals for Episode of Care: created on 01/29/2024 through 03/21/2024 Patient will increase active ROM of bilateral knees to no greater than 10-15 degrees from achieving full knee extension to allow patient to improve postural alignment, to improve body/postural mechanics for transfers / gait pattern , and to decrease falls risks. (Ongoing) Patient will be able to correct postural deviations with minimal assist verbal cues in order to improve postural alignment of trunk during transfers, ambulation, and standing and to decrease current R LE pain. (Ongoing) Decrease R hip/R knee pain to 1-4/10 at rest and with functional activities to allow patient to improve ambulation, transfers, and standing tolerance for ADLs. (Ongoing) Patient to be able to non-reciprocally negotiate stairs at home with bilateral rail use with assist of for safety as needed and be able to complete this task in 5 minutes as she did previously. (Ongoing) Patient Goals: To reduce my right knee pain New goals added for ALS Clinic updated 01/09/2024 - Patient education regarding pathophysiology and relationship to deficits presented this date, including exercise recommendations for people with ALS. Including dosage, recovery and intensity. (met) - Patient educated on how to complete home exercise program listed below independently or with caregiver assistance to maintain function, promote wellness, decrease risk of secondary impairments (met) - Patient demonstrates independent and proper use of assistive device to allow for improved walking quality and safety therefore reducing the risk of falls (met) - Patient/ caregiver educated on safe transfers, positioning, and use of adaptive equipment this date to ensure safety for patient and caregiver (met) Recommended Equipment: pivot disc and power wheelchair Planned Interventions, Frequency, and Duration: 2x/week, 6 weeks Total Number of Visits Planned: 12 Patient to be seen for Therapeutic exercise (91251), Neuromuscular re-education (30924), Manual therapy (39340), Therapeutic activities (03899), Self-nursing home management (64875), Gait Training (13506), Patient/Family/Caregiver Education, Orthosis / DME PLAN FOR NEXT VISIT: Continue with progression of bilateral LE passive stretching and LE/core strengthening exercises. For further details regarding this patient refer to the Physical Therapy electronically documented visit dated 01/29/2024. Provider Attestation I have reviewed the treatment plan for Waldemar Simran Hudson, [facility]# [id number] for the period of 01/29/24 -- 03/21/24, established on 01/29/2024. Signature certifies the need for therapy services. [facility] Abbie 01-29-2024 CNPN Telephone (GASTMN) ----- WALDEMAR HUDSON ([id number]) 1955 F Date Time Provider Department 01/29/24 [facility] During your visit today, we recorded the following information about you: Benton Silva MD 01/29/2024 1:57 PM Signed order Allergies As of Date: 01/29/2024 Noted Allergy Reaction MALARONE (ATOVAQUONE-PROGUANIL) 09/10/2015 4 - Hives THIMERSOL (THIMEROSAL) 04/26/2009 Comments: Makes eyes red- thimerosal in contacts Date Reviewed: 01/09/2024 Reviewed by: Boris Walters RD - Fully Assessed Reason for Visit: Orders [681] Primary Visit Diagnosis:Diarrhea, unspecified type [R19.7] Order(s):CALPROTECTIN,FEC AL [SQCALPRO] Order #: [id number]. #:[id number] Prescriptions as of 02/16/2024 - rifAMPin (RIFADIN) 300 mg capsule Take 300 mg by mouth once daily. - Magnesium 200 mg tab Take 1 tablet by mouth once daily. - baclofen 10 mg tablet Take 0.5 tablets by mouth three times a day for 14 days, THEN 1 tablet three times a day. - levothyroxine (SYNTHROID) 112 mcg tablet - NUEDEXTA 20-10 mg capsule Take 1 capsule by mouth two times a day. - nystatin (MYCOSTATIN, NILSTAT) 500,000 unit tab Take 2 tablets by mouth three times a day with meals. - TherBiotic Complete 120 Ct[address] (Klaire/Prothera) Take 1 capsule by mouth once daily. - itraconazole 0.5 % (CPD) 1-2 sprays to each nostril twice daily - Fish Oil-[place]-3 Fatty Acids 300-1,000 mg cap Take by mouth. - Meriva-SR (Monae) decrease inflammation/pain/gut healing Take 1-2 capsules two times daily Problem List As Of Date 01/29/2024 Noted Resolved PERS HX OF THYROID MALIGNANCY [Z85.850] 05/24/2005 ESOPHAGEAL REFLUX [K21.9] 05/24/2005 FX METATARSAL-CLOSED [S92.309A] 07/12/2005 MALIGN NEOPL THYROID [C73] 11/12/2005 CHOLELITH W CHOLECYS NEC [K80.10] 01/25/2006 GASTRITIS ANTRAL( W/O Hemorrhage) [K29.60] 03/09/2006 SPRAIN SHOULDER/ARM NOS [HQF1105] 06/20/2006 FX PHALANX, FOOT-CLOSED [S92.919A] 08/13/2006 DYSMETABOLIC SYNDROME X [E88.810] 05/21/2007 SPRAIN NOS [T14.8XXA] 08/19/2007 Congenital pes planus [Q66.50] 02/27/2011 Skin lesion [L98.9] 02/28/2011 Other musculoskeletal symptoms referable to anna*07/14/2013 Special screening for malignant neoplasms, colo*10/01/2014 Dysphagia, unspecified(787.20) [R13.10] 10/01/2014 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 GERD without esophagitis [K21.9] 09/06/2016 History of thyroid cancer [Z85.850] 09/06/2016 Hypothyroidism [E03.9] 09/06/2016 Foot cramps [R25.2] 09/06/2016 Menopausal and postmenopausal disorder [N95.9] 09/06/2016 Fatigue [R53.83] 09/06/2016 Vitamin D deficiency [E55.9] 09/06/2016 Rectal itching [L29.0] 02/26/2017 Sleep disturbance [G47.9] 04/22/2018 Impaired ambulation [R26.2] 10/03/2023 Muscle spasticity [M62.838] 10/03/2023 Impaired flexibility of lower extremity [R29.89*10/03/2023 Abnormality of gait [R26.9] 10/03/2023 Right leg pain [M79.604] 10/03/2023 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] 01/09/2024 Decreased coordination [R27.8] 01/09/2024 Decreased independence with activities of daily*01/09/2024 Encounter Status:Closed by BENTON KENNEDY on 01/29/24 [facility] CNTHERAPYon 01-29-2024 CNTHERAPY OT/PT/Speech Visit ([facility]) ----- WALDEMAR HUDSON ([id number]) 1955 F Date Time Provider Department 01/29/24 10:15 AM NATHAN MADRIGAL [facility] Date Time Provider Department Center 01/29/2024 10:15 AM [id number], CYNTHIA*[facility] Reason for Visit: PT Progress Note [0496] 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 - Magnesium 200 mg tab Take 1 tablet by mouth once daily. - baclofen 10 mg tablet Take 0.5 tablets by mouth three times a day for 14 days, THEN 1 tablet three times a day. - levothyroxine (SYNTHROID) 112 mcg tablet - NUEDEXTA 20-10 mg capsule Take 1 capsule by mouth two times a day. - nystatin (MYCOSTATIN, NILSTAT) 500,000 unit tab Take 2 tablets by mouth three times a day with meals. - TherBiotic Complete 120 Ct[address] (Klaire/Prothera) Take 1 capsule by mouth once daily. - itraconazole 0.5 % (CPD) 1-2 sprays to each nostril twice daily - Fish Oil-[place]-3 Fatty Acids 300-1,000 mg cap Take by mouth. 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 - levothyroxine (SYNTHROID) 112 mcg tablet - NUEDEXTA 20-10 mg capsule Take 1 capsule by mouth two times a day. - nystatin (MYCOSTATIN, NILSTAT) 500,000 unit tab Take 2 tablets by mouth three times a day with meals. - TherBiotic Complete 120 Ct[address] (Klaire/Prothera) Take 1 capsule by mouth once daily. - itraconazole 0.5 % (CPD) 1-2 sprays to each nostril twice daily - Fish Oil-[place]-3 Fatty Acids 300-1,000 mg cap Take by mouth. - Meriva-SR (Monae) decrease inflammation/pain/gut healing Take 1-2 capsules two times daily ----- Normal [facility] CNOVon 01-24-2024 CNOV Office Visit (WELLME ) ----- WALDEMAR HUDSON ([id number]) 1955 F Date Time Provider Department 01/24/24 3:00 PM CORI HOPE During your visit today, we recorded the following information about you: Cori Hope R Ac 01/24/2024 3:53 PM Signed Waldemar Hudson a 68 year old female presents to the acupuncture clinic on 01/24/24 for a follow up visit. Patient identity confirmed by name and : Yes This is the 10 visit for the patient this year It has been 1 week(s) since the last acupuncture treatment. Last treatment date: 01/17/2024 Initial Acupuncture treatment date: 11/12/2023 Chief Complaint: Primary lateral sclerosis, right knee pain, muscle spasm SUBJECTIVE Patient noted the pain that she used to feel with sitting position has been improved. However, she has been suffering from nighttime pain in right knee, which she describes as sharp sensation, attributing the pain to without being moved much leading do lack of blood flow. Patient experiences nighttime muscle spasm which involuntary moves her right leg, causing pain in the knee. We discussed trying Cryptolepsis as a natural herbal antibiotic approach to fight against Lyme. I provided patient with the product information. Hold off on taking Alfredo Gaytan until she finished baclofen. Cryptolepsis has been ordered. Patient noted her right knee pain was much improved for a few days following the previous acupuncture. Patient has been battling MS since 2012. Patient has history of Lyme disease, mold exposure and thyroid cancer. Thyroidism Trialed PT, dry needling, chiropractic, massage. PAIN ASSESSMENT: Currently experiencing pain Pain level (0 no pain at all to 10 being the worst): 4 OBJECTIVE: Physical Exam: Tenderness: knees and feet Pain with palpation: na ROM: limited ROM Orthopedic Tests: na Tightness: knees Divina/Trigger points: na Visual Inspection Discoloration: na Edema: no Gait/Ambulation: normal Ovalle: good Qi/Patient vitality: normal Alert Well-Groomed Normal Imaging reports Images on file See EPIC Images have been reviewed no TCM Tongue: NA TCM Pulse: thin and weak ASSESSMENT Patient presents with signs and symptoms consistent with the diagnosis. Patient would benefit from acupuncture therapy to address listed deficiencies and return to PLOF. Pt was educated on symptoms, prognosis, plan of care and activity modifications. Pt verbalized understanding and agreed to begin care. TCM Pattern: PLS due to Qi and blood deficiency. TCM Treatment Principle: Calm Ovalle. Promote smooth flow of Qi and blood. Open channel. Reduce pain. PLAN OF CARE Counseled patient on risks of acupuncture treatment including pain, infection, bleeding, and no relief of pain. The patient was positioned comfortably. There was no evidence of infection at the site of needle insertions. Acupuncture Treatment: Treatment/Needle Set 1, Supine: Points: Yin Gaytan, motor line 2 points bilaterally on the scalp, ear ovalle men, Jan Zenon, Ling Gu, Da Austen, SP9, R: SJ3, SI3 15 minutes face to face with patient for set 1 Treatment/Needle Set 2, Supine: Points: R: GB34, Esquivel Chi, SP9, Si MA points 3, Xi Dinh, SP10, He Ding, B: GB41, ST43 10 minutes face to face with patient for set 2 Calcium were retained for 30 minutes # of needles inserted: 34 # of needles withdrawn: 34 Adjunct techniques used: TDP Infrared Heat Lamp- Applied to Rt. Hip and right knee Patient tolerated the procedure well. UNIVERSAL PROTOCOL / SAFETY CHECKLIST Procedure to be Performed: Acupuncture Sign In: A Moment of CARE was completed. Personnel directly involved with the procedure wore the appropriate PPE (Personal Protective Equipment). Patient/Surrogate Stated/Verified: PATIENT VERIFIED(optional for EMERGENT procedures): Patient name, Date of , Relevant allergies, and The intended procedure Time Out Communication: Intended patient and procedure match the source documents. Consent documented and matches the intended procedure. Sign Out: SIGN OUT (optional for EMERGENT procedures): All instruments, equipment, possible retained foreign bodies accounted for. Trenton Hanson Provider Name: Trenton Hanson 25 Total minutes face to face time spent with patient Acupuncture and [place] herbal therapy are not a substitute for conventional medical diagnosis and treatment. Patient agrees that either: 1. A diagnostic exam has been performed by a physician or chiropractor within the last six months regarding the condition for which they are seeking acupuncture treatment. or 2. If no diagnostic exam by a physician or chiropractor has been done within the last six months regarding the condition for which patient is seeking treatment, the Processing Analyst, per [place] Law, recommends that this diagnostic exam be performed. Referri (more content not included)... 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 - Black Cohosh 40 mg cap Take 1 capsule by mouth two times a day. - CHLORELLA ALGAE, BULK, MISC Take 6 tablets by mouth once daily. - CIERA 0.075 mg/24 hr patch Apply 1 Patch as directed two times a week. - furosemide (LASIX) 20 mg tablet Take 1 tablet by mouth every 12 hours. - levOCARNitine (CARNITOR) 500 mg tab tablet Take 500 mg by mouth two times a day. - liothyronine (CYTOMEL) 5 mcg tablet Take 1 tablet by mouth once daily. - magnesium oxide 200 mg magnesium chew Take 200 mg by mouth once daily. magnesium chew - AUGUSTO D ARCO ORAL Take 60 mL by mouth once daily. tea - progesterone micronized (PROMETRIUM) 200 mg capsule Take 200 mg by mouth daily at bedtime. - VITAMIN B COMPLEX ORAL Take 1 capsule by mouth once daily. - METHYLENE BLUE, BULK-SOLID, MISC 1 capsule two times a day. - procaine HCl (PROCAINE, BULK, MISC) one time a week. IV infusion - NUEDEXTA 20-10 mg capsule Take 1 capsule by mouth three times a day. - rifAMPin (RIFADIN) 300 mg capsule Take 300 mg by mouth once daily. - Magnesium 200 mg tab Take 1 tablet by mouth once daily. - levothyroxine (SYNTHROID) 112 mcg tablet - nystatin (MYCOSTATIN, NILSTAT) 500,000 unit tab Take 2 tablets by mouth three times a day with meals. - TherBiotic Complete 120 Ct[address] (Klaire/Prothera) Take 1 capsule by mouth once daily. - Fish Oil-[place]-3 Fatty Acids 300-1,000 mg cap Take by mouth. 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 - levothyroxine (SYNTHROID) 112 mcg tablet - NUEDEXTA 20-10 mg capsule Take 1 capsule by mouth two times a day. - nystatin (MYCOSTATIN, NILSTAT) 500,000 unit tab Take 2 tablets by mouth three times a day with meals. - TherBiotic Complete 120 Ct[address] (Klaire/Prothera) Take 1 capsule by mouth once daily. - itraconazole 0.5 % (CPD) 1-2 sprays to each nostril twice daily - Fish Oil-[place]-3 Fatty Acids 300-1,000 mg cap Take by mouth. - Meriva-SR (Monae) decrease inflammation/pain/gut healing Take 1-2 capsules two times daily ----- [facility] Abbie 01-21-2024 PRINCEN Telephone (MEDN) ----- WALDEMAR HUDSON ([id number]) 1955 F Date Time Provider Department 01/21/24 MATTHEW GALLEGOS During your visit today, we recorded the following information about you: Allergies As of Date: 01/21/2024 Noted Allergy Reaction MALARONE (ATOVAQUONE-PROGUANIL) 09/10/2015 4 - Hives THIMERSOL (THIMEROSAL) 04/26/2009 Comments: Makes eyes red- thimerosal in contacts Date Reviewed: 01/09/2024 Reviewed by: Boris Walters RD - Fully Assessed Prescriptions as of 01/21/2024 - baclofen 10 mg tablet Take 0.5 tablets by mouth three times a day for 14 days, THEN 1 tablet three times a day. - levothyroxine (SYNTHROID) 112 mcg tablet - NUEDEXTA 20-10 mg capsule Take 1 capsule by mouth two times a day. - nystatin (MYCOSTATIN, NILSTAT) 500,000 unit tab Take 2 tablets by mouth three times a day with meals. - TherBiotic Complete 120 Ct[address] (Klaire/Prothera) Take 1 capsule by mouth once daily. - itraconazole 0.5 % (CPD) 1-2 sprays to each nostril twice daily - Fish Oil-[place]-3 Fatty Acids 300-1,000 mg cap Take by mouth. - Meriva-SR (Monae) decrease inflammation/pain/gut healing Take 1-2 capsules two times daily Problem List As Of Date 01/21/2024 Noted Resolved PERS HX OF THYROID MALIGNANCY [Z85.850] 05/24/2005 ESOPHAGEAL REFLUX [K21.9] 05/24/2005 FX METATARSAL-CLOSED [S92.309A] 07/12/2005 MALIGN NEOPL THYROID [C73] 11/12/2005 CHOLELITH W CHOLECYS NEC [K80.10] 01/25/2006 GASTRITIS ANTRAL( W/O Hemorrhage) [K29.60] 03/09/2006 SPRAIN SHOULDER/ARM NOS [OFU4454] 06/20/2006 FX PHALANX, FOOT-CLOSED [S92.919A] 08/13/2006 DYSMETABOLIC SYNDROME X [E88.810] 05/21/2007 SPRAIN NOS [T14.8XXA] 08/19/2007 Congenital pes planus [Q66.50] 02/27/2011 Skin lesion [L98.9] 02/28/2011 Other musculoskeletal symptoms referable to anna*07/14/2013 Special screening for malignant neoplasms, colo*10/01/2014 Dysphagia, unspecified(787.20) [R13.10] 10/01/2014 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 GERD without esophagitis [K21.9] 09/06/2016 History of thyroid cancer [Z85.850] 09/06/2016 Hypothyroidism [E03.9] 09/06/2016 Foot cramps [R25.2] 09/06/2016 Menopausal and postmenopausal disorder [N95.9] 09/06/2016 Fatigue [R53.83] 09/06/2016 Vitamin D deficiency [E55.9] 09/06/2016 Rectal itching [L29.0] 02/26/2017 Sleep disturbance [G47.9] 04/22/2018 Impaired ambulation [R26.2] 10/03/2023 Muscle spasticity [M62.838] 10/03/2023 Impaired flexibility of lower extremity [R29.89*10/03/2023 Abnormality of gait [R26.9] 10/03/2023 Right leg pain [M79.604] 10/03/2023 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] 01/09/2024 Decreased coordination [R27.8] 01/09/2024 Decreased independence with activities of daily*01/09/2024 Encounter Status:Closed by ANTONIO DALTON on 01/21/24 Normal [facility] CNTHERAPYon 01-18-2024 CNTHERAPY OT/PT/Speech Visit ([facility]) ----- WALDEMAR HUDSON ([id number]) 1955 F Date Time Provider Department 01/18/24 3:00 PM NATHAN MADRIGAL [facility] Date Time Provider Department [place] 01/18/2024 3:00 PM [id number], CYNTHIA*[facility] Health [facility] M Reason for Visit: Physical Therapy [503] 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 - levothyroxine (SYNTHROID) 112 mcg tablet - NUEDEXTA 20-10 mg capsule Take 1 capsule by mouth two times a day. - nystatin (MYCOSTATIN, NILSTAT) 500,000 unit tab Take 2 tablets by mouth three times a day with meals. - TherBiotic Complete 120 Ct[address] (Klaire/Prothera) Take 1 capsule by mouth once daily. - itraconazole 0.5 % (CPD) 1-2 sprays to each nostril twice daily - Fish Oil-[place]-3 Fatty Acids 300-1,000 mg cap Take by mouth. - Meriva-SR (Monae) decrease inflammation/pain/gut healing Take 1-2 capsules two times daily ----- Normal [facility] CNOVon 01-17-2024 CNOV Office Visit (WELLME ) ----- WALDEMAR HUDSON ([id number]) 1955 F Date Time Provider Department 01/17/24 3:00 PM CORI HOPE During your visit today, we recorded the following information about you: Cori Hope R Ac 01/17/2024 5:10 PM Signed Waldemar Hudson a 68 year old female presents to the acupuncture clinic on 01/17/24 for a follow up visit. Patient identity confirmed by name and : Yes This is the 9 visit for the patient this year It has been 1 week(s) since the last acupuncture treatment. 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 We discussed trying Cryptolepsis as a natural herbal antibiotic approach to fight against Lyme. I provided patient with the product information. Hold off on taking Alfredo Gaytan until she finished baclofen. Patient noted her right knee pain was much improved for a few days following the previous acupuncture. Patient has been battling MS since 2012. Patient has history of Lyme disease, mold exposure and thyroid cancer. Thyroidism Trialed PT, dry needling, chiropractic, massage. PAIN ASSESSMENT: Currently experiencing pain Pain level (0 no pain at all to 10 being the worst): 4 OBJECTIVE: Physical Exam: Tenderness: knees and feet Pain with palpation: na ROM: limited ROM Orthopedic Tests: na Tightness: knees Divina/Trigger points: na Visual Inspection Discoloration: na Edema: no Gait/Ambulation: normal Ovalle: good Qi/Patient vitality: normal Alert Well-Groomed Normal Imaging reports Images on file See EPIC Images have been reviewed no TCM Tongue: NA TCM Pulse: thin and weak ASSESSMENT Patient presents with signs and symptoms consistent with the diagnosis. Patient would benefit from acupuncture therapy to address listed deficiencies and return to PLOF. Pt was educated on symptoms, prognosis, plan of care and activity modifications. Pt verbalized understanding and agreed to begin care. TCM Pattern: PLS due to Qi and blood deficiency. TCM Treatment Principle: Calm Ovalle. Promote smooth flow of Qi and blood. Open channel. Reduce pain. PLAN OF CARE Counseled patient on risks of acupuncture treatment including pain, infection, bleeding, and no relief of pain. The patient was positioned comfortably. There was no evidence of infection at the site of needle insertions. Acupuncture Treatment: Treatment/Needle Set 1, Supine: Points: Yin Agytan, motor line 2 points bilaterally on the scalp, ear ovalle men, Jan Zenon, Ling Gu, Da Austen, SP9, R: SJ3, SI3 15 minutes face to face with patient for set 1 Treatment/Needle Set 2, Supine: Points: R: GB34, Esquivel Chi, SP9, Si MA points 3, Xi Dinh, SP10, He Ding, B: GB41, ST43 10 minutes face to face with patient for set 2 Calcium were retained for 30 minutes # of needles inserted: 34 # of needles withdrawn: 34 Adjunct techniques used: TDP Infrared Heat Lamp- Applied to Rt. Hip and right knee Patient tolerated the procedure well. UNIVERSAL PROTOCOL / SAFETY CHECKLIST Procedure to be Performed: Acupuncture Sign In: A Moment of CARE was completed. Personnel directly involved with the procedure wore the appropriate PPE (Personal Protective Equipment). Patient/Surrogate Stated/Verified: PATIENT VERIFIED(optional for EMERGENT procedures): Patient name, Date of , Relevant allergies, and The intended procedure Time Out Communication: Intended patient and procedure match the source documents. Consent documented and matches the intended procedure. Sign Out: SIGN OUT (optional for EMERGENT procedures): All instruments, equipment, possible retained foreign bodies accounted for. Trenton Hanson Provider Name: Trenton Hanson 25 Total minutes face to face time spent with patient Acupuncture and [place] herbal therapy are not a substitute for conventional medical diagnosis and treatment. Patient agrees that either: 1. A diagnostic exam has been performed by a physician or chiropractor within the last six months regarding the condition for which they are seeking acupuncture treatment. or 2. If no diagnostic exam by a physician or chiropractor has been done within the last six months regarding the condition for which patient is seeking treatment, the Processing Analyst, per [place] Law, recommends that this diagnostic exam be performed. Referring Provider: SELF [200] Allergies As of Date: 01/17/2024 Noted Allergy Reaction MALARONE (ATOVAQUONE-PROGUANIL) 09/10/2015 4 - Hives THIMERSOL (THIMEROSAL) 04/26/2009 Comments: Makes eyes red- thimerosal in contacts Date (more content not included)... 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 - levothyroxine (SYNTHROID) 112 mcg tablet - NUEDEXTA 20-10 mg capsule Take 1 capsule by mouth two times a day. - nystatin (MYCOSTATIN, NILSTAT) 500,000 unit tab Take 2 tablets by mouth three times a day with meals. - TherBiotic Complete 120 Ct[address] (Klaire/Prothera) Take 1 capsule by mouth once daily. - itraconazole 0.5 % (CPD) 1-2 sprays to each nostril twice daily - Fish Oil-[place]-3 Fatty Acids 300-1,000 mg cap Take by mouth. 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 - levothyroxine (SYNTHROID) 112 mcg tablet - NUEDEXTA 20-10 mg capsule Take 1 capsule by mouth two times a day. - nystatin (MYCOSTATIN, NILSTAT) 500,000 unit tab Take 2 tablets by mouth three times a day with meals. - TherBiotic Complete 120 Ct[address] (Klaire/Prothera) Take 1 capsule by mouth once daily. - itraconazole 0.5 % (CPD) 1-2 sprays to each nostril twice daily - Fish Oil-[place]-3 Fatty Acids 300-1,000 mg cap Take by mouth. - Meriva-SR (Monae) decrease inflammation/pain/gut healing Take 1-2 capsules two times daily ----- [facility] [id number] 01-10-2024 [id number] HNO ID: [id number] Author: BOWEN QUIROZ CCC-SLP Service: ? Author Type: Speech Language Pathologist Type: [id number] Filed: 01/10/2024 12:00 Note Text: [facility] Speech Therapy Plan of Care Certification Patient Name: Waldemar Hudson : 1955 [facility] #: [id number] Date: 01/09/2024 To: Joan Prieto MD From Therapist: SEAMUS Cueva RE: Patient Certification/ Recertification Your review, approval and electronic signature are required in order to comply with Payor: [employer] MED[employer]ARE / Plan: [employer] MED[employer]ARE PPO / Product Type: PPO / regulations. The identified Speech Therapy PLAN OF CARE for the patient is as follows: R47.1 Dysarthria (primary encounter diagnosis) G12.23 Primary lateral sclerosis (HCC) R13.10 Dysphagia, unspecified type PLAN OF CARE: Impression: Communication deficits identified: Dysarthria of speech Swallow Deficits Identified / Suspected: Oropharyngeal dysphagia Patient may benefit from periodic reassessment of communication and swallowing skills and needs through ALS Clinic. RECOMMENDATION: 1.) Continue regular solids and thin liquids as tolerated. 2.) Swallowing Strategies: -small bites/sips -slow rate -upright position with meals -medications whole or crushed in puree (e.g., applesauce, yogurt) -hold liquids in mouth for approximately 3 seconds, then swallow (3 second bolus prep) -rigid oral care -alternate bites/sips 3.) Modified Barium Swallow to formally assess oral and pharyngeal anatomy/physiology. 4.) Ensure you are facing your communication partner when speaking. 5.) May consider use of [id number] application, such as Interhyp or Ancillary Specialist AAC, when feeling fatigued or unable to face your communication partner. Results and Recommendations Discussed With: Patient, Significant Other, Physician, Nurse Prognosis: Good Good: good support system/ coping skills Goals for Episode of Care: created on 01/09/2024 through 03/09/24 ALS GOALS 1.) Patient will demonstrate comprehension of motor speech and swallowing evaluations results and home recommendations. 2.) Patient will complete a modified barium swallow to formally assess oral and pharyngeal anatomy/physiology. 3.) Patient will verbalize one strategy/communication support she can utilize to maximize communication efficiency. LTG: All goals to target the patient's overall ability to facilitate functional communication and swallowing abilities. Planned Interventions, Frequency, and Duration: Planned Treatment Interventions: Dysarthria/Apraxia Reduction Training (49577, [id number]), Alternative / Augmentative Communication Training (20448, [id number]), Patient / Caregiver Education/ Training, Dysphagia Reduction Training (15692) Current Frequency: 1 visit Duration: 1 visit PLAN FOR NEXT VISIT: follow-up at ALS/MND team clinic Patient demonstrates good understanding of plan of care and treatment. The above goals and plan of care were discussed and agreed upon by patient/family. For further details regarding this patient refer to the Speech Therapy electronically documented visit dated 01/09/2024. Provider Attestation I have reviewed the treatment plan for Waldemar Hudson, F# [id number] for the period of 01/09/24 -- 03/08/24, established on 01/09/2024. Signature certifies the need for therapy services. Normal [facility] CNOVon 01-10-2024 CNOV Office Visit (WELLME ) ----- GRABIEL HUDSONQUINTIN Khalil ([id number]) 1955 F Date Time Provider Department 01/10/24 2:30 PM CORI HOPE During your visit today, we recorded the following information about you: Cori Hope R Ac 01/10/2024 4:14 PM Signed Waldemar Hudson a 68 year old female presents to the acupuncture clinic on 01/10/24 for a follow up visit. Patient identity confirmed by name and : Yes This is the 8 visit for the patient this year It has been 1 week(s) since the last acupuncture treatment. Last treatment date: 01/03/2024 Initial Acupuncture treatment date: 11/12/2023 Chief Complaint: Primary lateral sclerosis, right knee pain, muscle spasm SUBJECTIVE The right knee pain is provoked with any type of weight bearing activity. She still experiences random onset of muscle spasms in lower limbs. She would get tenderness with touch or pressure made over the right knee. We discussed trying a herbal supplement, Roberto Mercado Gaytan for her knee pain and muscle spasms in lower extremities. All the instruction materials has been provided to patient today. Patient has been battling MS since 2012. Patient has history of Lyme disease, mold exposure and thyroid cancer. Thyroidism Trialed PT, dry needling, chiropractic, massage. PAIN ASSESSMENT: Currently experiencing pain Pain level (0 no pain at all to 10 being the worst): 4 OBJECTIVE: Physical Exam: Tenderness: knees and feet Pain with palpation: na ROM: limited ROM Orthopedic Tests: na Tightness: knees Divina/Trigger points: na Visual Inspection Discoloration: na Edema: no Gait/Ambulation: normal Ovalle: good Qi/Patient vitality: normal Alert Well-Groomed Normal Imaging reports Images on file See EPIC Images have been reviewed no TCM Tongue: NA TCM Pulse: thin and weak ASSESSMENT Patient presents with signs and symptoms consistent with the diagnosis. Patient would benefit from acupuncture therapy to address listed deficiencies and return to PLOF. Pt was educated on symptoms, prognosis, plan of care and activity modifications. Pt verbalized understanding and agreed to begin care. TCM Pattern: PLS due to Qi and blood deficiency. TCM Treatment Principle: Calm Ovalle. Promote smooth flow of Qi and blood. Open channel. Reduce pain. PLAN OF CARE Counseled patient on risks of acupuncture treatment including pain, infection, bleeding, and no relief of pain. The patient was positioned comfortably. There was no evidence of infection at the site of needle insertions. Acupuncture Treatment: Treatment/Needle Set 1, Supine: Points: Yin Gaytan, motor line 2 points bilaterally on the scalp, ear ovalle men, Jan Zenon, Ling Gu, Da Austen, SP9, R: SJ3, SI3, GB31 15 minutes face to face with patient for set 1 Treatment/Needle Set 2, Supine: Points: R: GB34, Esquivel Chi, SP9, Si MA points 3, Xi Dinh, SP10, He Ding, 2 points on the lateral aspect of the patella bone, B: GB41, ST43 10 minutes face to face with patient for set 2 Calcium were retained for 30 minutes # of needles inserted: 36 # of needles withdrawn: 36 Adjunct techniques used: TDP Infrared Heat Lamp- Applied to Rt. Hip and right knee Patient tolerated the procedure well. UNIVERSAL PROTOCOL / SAFETY CHECKLIST Procedure to be Performed: Acupuncture Sign In: A Moment of CARE was completed. Personnel directly involved with the procedure wore the appropriate PPE (Personal Protective Equipment). Patient/Surrogate Stated/Verified: PATIENT VERIFIED(optional for EMERGENT procedures): Patient name, Date of , Relevant allergies, and The intended procedure Time Out Communication: Intended patient and procedure match the source documents. Consent documented and matches the intended procedure. Sign Out: SIGN OUT (optional for EMERGENT procedures): All instruments, equipment, possible retained foreign bodies accounted for. Trenton Hanson Provider Name: Trenton Hanson 25 Total minutes face to face time spent with patient Acupuncture and [place] herbal therapy are not a substitute for conventional medical diagnosis and treatment. Patient agrees that either: 1. A diagnostic exam has been performed by a physician or chiropractor within the last six months regarding the condition for which they are seeking acupuncture treatment. or 2. If no diagnostic exam by a physician or chiropractor has been done within the last six months regarding the condition for which patient is seeking treatment, the Processing Analyst, per [place] Law, recommends that this diagnostic exam be performed. Referring Provider: SELF [200] Allergies As of Date: 01/10/2024 Noted Allergy Reaction MALARONE (ATOVAQUONE-PROGUANIL) 09/10/2015 4 - Hives THIMERSOL (THIMEROSAL) 04/26/2009 Comments: Makes eyes red- thimerosal in contacts Date Reviewed: 01/09/2024 Reviewed by: Boris Walters R (more content not included)... [facility] [id number] 01-09-2024 [id number] HNO ID: [id number] Author: RASHAUN PAREDES OT Service: ? Author Type: Occupational Therapist Type: [id number] Filed: 01/09/2024 12:06 Note Text: [facility] Occupational Therapy Plan of Care Certification Patient Name: Waldemar Hudson : 1955 [facility] #: [id number] Date: 01/09/2024 To: Joan Prieto MD From Therapist: Rashaun Paredes OT RE: Patient Certification/ Recertification Your review, approval and electronic signature are required in order to comply with Payor: AET MEDICARE / Plan: AETNA MEDICARE PPO / Product Type: PPO / regulations. The identified Occupational Therapy PLAN OF CARE for the patient is as follows: Z78.9 Decreased independence with activities of daily living (primary encounter diagnosis) G12.23 Primary lateral sclerosis (HCC) R27.8 Decreased coordination PLAN OF CARE: Assessment: Waldemar Hudson presents with diagnosis of PLS that interferes with rising from a chair, walking, walking in the house, walking in the community, stair negotiation, lifting, heavy exertion, bending, physical activities, recreational activities, kneeling, running, jumping, squatting, reaching overhead, driving, cleaning, cooking, dressing, gripping, pinching, twisting, pulling, pushing, carrying, bed mobility . She presents with impairments in ADL's, balance, coordination, independence in exercise, joint mobility, overall function, and patient reported outcome measures. Patient did not complete the PROMIS? (Patient Reported Outcome Measures Information System). Prognosis for therapy is Good due to: current objective clinical presentation, good support system/ coping skills . She will benefit from skilled therapy services to meet the goals established for this plan of care as noted below. Goals for Episode of Care created on 01/09/24 through 03/10/24 Patient will complete HEP at Modified Independent level.ESTABLISHED Patient will report improved efficiency with toileting and dressing with purchase of recommended equipment (i.e. pocket dresser tool and elevated toilet seat with carry case). ESTABLISHED Patient will tolerate splinting and verbalize understanding of splinting schedule, needs and precautions. ESTABLISHED Patient will complete custom wheelchair process ESTABLISHED Patient Goals: No clear goal identified at this time Planned Interventions, Frequency, and Duration: Current Frequency: 1 visit Duration: 1 visit Total Number of Visits Planned: 1 Planned Treatment Interventions: Patient/Family/Caregiver Education, Functional training, Self-nursing home management (24943), Therapeutic exercise (03486) (Wheelchair Management) PLAN FOR NEXT VISIT:Wheelchair Evaluation Patient demonstrates good understanding of plan of care and treatment. The above goals and plan of care were discussed and agreed upon by patient/family. For further details regarding this patient refer to the Occupational Therapy electronically documented visit dated 01/09/2024. Provider Attestation I have reviewed the treatment plan for Waldemar Hudson [facility]# [id number] for the period of 01/09/24 -- 03/10/24, established on 01/09/2024. Signature certifies the need for therapy services. Normal [facility] CNOVon 01-09-2024 CNOV Office Visit (SPMCMN ) ----- WALDEMAR HUDSON ([id number]) 1955 F Date Time Provider Department 01/09/24 11:45 AM [facility]IR[facility] During your visit today, we recorded the following information about you: Bowen Quiroz CCC-PRESCHOOL ADVISER 01/10/2024 12:00 PM Signed Episode Visit Count: 1 Therapist That Will Accept/Oversee The Plan Of Care: Bowen Quiroz MA CCC-PRESCHOOL ADVISER Start of Care Date: 01/09/24 Onset Date: 09/03/11 Plan of Care Certification Date: 01/09/24 Next Certification Due Date: 03/08/24 Patient Identified by Name and Date of : Yes [facility] ALS/MND TEAM CLINIC SPEECH, SWALLOW, and VOICE EVALUATION PLAN OF CARE: Impression: Communication deficits identified: Dysarthria of speech Swallow Deficits Identified / Suspected: Oropharyngeal dysphagia Patient may benefit from periodic reassessment of communication and swallowing skills and needs through ALS Clinic. RECOMMENDATION: 1.) Continue regular solids and thin liquids as tolerated. 2.) Swallowing Strategies: -small bites/sips -slow rate -upright position with meals -medications whole or crushed in puree (e.g., applesauce, yogurt) -hold liquids in mouth for approximately 3 seconds, then swallow (3 second bolus prep) -rigid oral care -alternate bites/sips 3.) Modified Barium Swallow to formally assess oral and pharyngeal anatomy/physiology. 4.) Ensure you are facing your communication partner when speaking. 5.) May consider use of gzos-cw-qenviz application, such as Clar[employer]gralog[employer]mm or Ancillary Specialist AAC, when feeling fatigued or unable to face your communication partner. Results and Recommendations Discussed With: Patient, Significant Other, Physician, Nurse Prognosis: Good Good: good support system/ coping skills Goals for Episode of Care: created on 01/09/2024 through 03/09/24 ALS GOALS 1.) Patient will demonstrate comprehension of motor speech and swallowing evaluations results and home recommendations. 2.) Patient will complete a modified barium swallow to formally assess oral and pharyngeal anatomy/physiology. 3.) Patient will verbalize one strategy/communication support she can utilize to maximize communication efficiency. LTG: All goals to target the patient's overall ability to facilitate functional communication and swallowing abilities. Planned Interventions, Frequency, and Duration: Planned Treatment Interventions: Dysarthria/Apraxia Reduction Training (14946, 07895), Alternative / Augmentative Communication Training (87447, 35046), Patient / Caregiver Education/ Training, Dysphagia Reduction Training (77830) Current Frequency: 1 visit Duration: 1 visit PLAN FOR NEXT VISIT: follow-up at ALS/MND team clinic Patient demonstrates good understanding of plan of care and treatment. The above goals and plan of care were discussed and agreed upon by patient/family. SUBJECTIVE: Waldemar Hudson is a 68 year old female seen today for a follow-up visit to the ALS/MND team clinic. Patient was diagnosed with Primary Lateral Sclerosis in 2011. Symptom onset occurred in the lumbosacral region. Accompanied to visit by: spouse. Patient/caregiver reports: -Difficulties swallowing liquids - coughs 2-3x a day. -No troubles swallowing solids. Solid food will sometimes stick in her mouth. -Some difficulties swallowing large pills. -Feels like others can understand her OK when she is facing them. . OBJECTIVE MEASURES WITH LEVEL OF FUNCTION: MOTOR SPEECH EVALUATION Respiration: room air; reduced breath groups Phonation: strained-strangled vocal quality Resonance: hypernasal Articulation: imprecise Intelligibility: 60% Prosody: slow rate; monopitch Dysarthria: moderate mixed spastic-flaccid dysarthria AC tools/device: Patient has cbmm-ze-mktcop application downloaded on phone, but has never used. Modeled and trained patient on apps that have ability to store custom messages (e.g., Lemko, assistant executive housekeeper AAC). Initial Modified Barium Swallow Evaluation completed 2019, per patient report. Unable to locate in medical records. Patient reports she was not informed of any significant findings related to MBS. PEG/JPEG: N/A BIPAP/CPAP: N/A Cough Assist: N/A Suction for Secretions: N/A 3 Oz Water Swallow Screen: Did not administer due to patient reports of difficulties with swallowing liquids. Patient did consume single sips of thin liquids via side of cup with implementation of a bolus hold without overt signs/symptoms of penetration/aspiration. Eating Assessment Tool (EAT - 10) To what extent are the following scenarios problematic for you? (0 = No problem; 1 = Mild Problem; 2 = Mild to Moderate Problem; 3 = Moderate Problem; 4 = Severe problem) 1. My swallowing problem has caused me to lose weight. = 1 2. My swallowing problem interferes with my ability to go out for meals (more content not included)... Normal [facility] CNOV Office Visit (NEMALS ) ----- WALDEMAR HUDSON ([id number]) 1955 F Date Time Provider Department 01/09/24 8:00 AM ANTONIETTA ALCARAZ During your visit today, we recorded the following information about you: Pulse Respiration Blood pressure 72/minute 18/minute 96/60 Antonietta Alcaraz DO 01/09/2024 9:20 PM Signed PCP - Keren Dumont [address] [place] [address] Original referring doctor- Joan Prieto [address] [facility] [id number] Ms. Hudson came for her first visit to the multidisciplinary ALS/MND Team Clinic on 01/09/2024, accompanied by her Dieter. She is a 68 year old y/o female from [place], [place] who experienced symptom onset in the lumbosacral region (with left leg weakness ) in 2011. She was diagnosed with PLS by provider at [facility], confirmed with Dr. Prieto REVIEW of LAST VISIT FINDINGS: 12/31/2023: Waldemar Hudson is a 68 year-old woman who has had progressive upper motor neuron symptoms and findings since 2011. 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 Int he absence of lower motor neuron features developing in the last 12 years, there is essentially no risk of progression to ALS. Management will be symptomatic. 2016 diagnosis, symptoms since 2011. Thish as been a slow progression Plan: 1) consult to ALS/MND clinic 2) consult to spasticity clinic 3) consult to PRESCHOOL ADVISER closer to home 4) will forward her contact information to the ALS Association 5) script sent for Nuedexta - bid for now; next week will send a new script for three times daily UPDATE: She has experienced the following (most significant worsening indicated with *): 1. Speech is affected, did see speech, She gets tired with talking 2. Swallowing is affected, trouble with liquids- coughing/choking, every day. Smoothie that is thick in the morning with no issue. Able to swallow big pills. No swallow study. Saliva was increased- feels that the neudexta helps with this. 3. Weight lost 25 pounds over 7 years, stabilized. Appetite is ok. Not as good as it used to be Not avoiding any foods but does avoid gluten/sugar/alcohol. 4. 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 Left leg is weaker, still dontrell 5. Leg function is affected, only last few months, started to have trouble with tone and knee pain, was using walker initially, on good days would hold onto rail. No injury to right knee. She has had falls but not recently. No power wheelchair, uses rollator in the house 6. Muscle cramps are present, especially on the right leg. She takes THC/CBD, helps with cramping. She is also on magnesium (1 pill daily). She has not tried baclofen and does not want the pump. 7. Breathing is ok, had issues with COVID, sometimes has FELTON going up stairs. Her knee pain keeps her awake, knees raised too. 8. Memory and behavior -some change with recalling names . 9. There was some emotional lability/pseudobulbar affect (PBA) -neudexta 10. There is joint pain-right knee pain, more then 10 years, uses advil/aleve . 11. Ms. 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 12. She is not driving. 13. Advance directives are in place. 14. She had urge incontinence- thinks also the neudexta 15. She was diagnosed with lyme disease around 2014. She is following with lyme specialist. EVALUATION: VITAL SIGNS: BP 96/60 Pulse 72 Resp 18 12/30 ALS Functional Rating Scale-Revised (ALSFRS-R) score = 25/48 Subscores: Bulbar= 5/12, Cervical= 6/, Lumbosacral= 4/, Resp= 10 (patient self-administered in NI questionnaire) [facility]-Lability Scale (SYSTEM DEVELOPMENT ENGINEER-LS) score = 20 (N=7) A score of 13 or higher may indicate clinically significant pseudobulbar affect (PBA). Subscores: Crying = 9 (N=3); Laughing = 11 (N=4). Handheld spirometry testing on 01/09/2024 by Rhea Sapp RN FVC = 74% ,predicted 3.369, 2.47 L without mask. FEV1 = 74%,predicted 2.55 1.88 L without mask. NEUROLOGIC EXAMINATION: Mentation: normal; there is no evidence of clinical dementia Speech: spastic dysarthia (80% understandable) Cranial nerves: Extra ocular movements: intact, jaw jerk: present, facial reflexes: present; eye closure: some weakness, mouth closure: some weakness; mentalis fasciculations: none, tongue bulk: intact , fasciculations: none, movement: reduced, and strength: weak; fasciculations are not seen Tone: increase in upper limbs, very increased in lower limbs Power: Comparing right to left, graded out of 5: Finger abductors - D2: 4+/4, D5: 4+/4, Fi (more content not included)... [facility] CNTHERAPYon 01-09-2024 CNTHERAPY OT/PT/Speech Visit (OTMN) ----- WALDEMAR HUDSON ([id number]) 1955 F Date Time Provider Department 01/09/24 11:00 AM RASHAUN PAREDES [facility] Date Time Provider Department Center 01/09/2024 11:00 AM [id number], ALYSSA [facility] Reason for Visit: OT EVAL [748] [facility] [3553] Cmt: ALS Clinic Primary Visit Diagnosis:Decreased independence with activities of daily living [Z78.9] Other Visit Diagnoses: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] Decreased coordination [R27.8] Allergies As of Date: 01/09/2024 Noted Allergy Reaction MALARONE (ATOVAQUONE-PROGUANIL) 09/10/2015 4 - Hives THIMERSOL (THIMEROSAL) 04/26/2009 Comments: Makes eyes red- thimerosal in contacts Date Reviewed: 01/09/2024 Reviewed by: Rhea Sapp, RN - Fully Assessed Prescriptions as of 01/09/2024 - baclofen 10 mg tablet Take 0.5 tablets by mouth three times a day for 14 days, THEN 1 tablet three times a day. - levothyroxine (SYNTHROID) 112 mcg tablet - NUEDEXTA 20-10 mg capsule Take 1 capsule by mouth two times a day. - nystatin (MYCOSTATIN, NILSTAT) 500,000 unit tab Take 2 tablets by mouth three times a day with meals. - TherBiotic Complete 120 Ct[address] (Klaire/Prothera) Take 1 capsule by mouth once daily. - itraconazole 0.5 % (CPD) 1-2 sprays to each nostril twice daily - Fish Oil-[place]-3 Fatty Acids 300-1,000 mg cap Take by mouth. 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] Other Visit Diagnoses: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] Impaired ambulation [R26.2] Muscle spasticity [M62.838] Impaired flexibility of lower extremity [R29.898] Abnormality of gait [R26.9] Right leg pain [M79.604] Allergies As of Date: 01/09/2024 Noted Allergy Reaction MALARONE (ATOVAQUONE-PROGUANIL) 09/10/2015 4 - Hives THIMERSOL (THIMEROSAL) 04/26/2009 Comments: Makes eyes red- thimerosal in contacts Date Reviewed: 01/09/2024 Reviewed by: Rhea Sapp, RN - Fully Assessed Prescriptions as of 01/09/2024 - baclofen 10 mg tablet Take 0.5 tablets by mouth three times a day for 14 days, THEN 1 tablet three times a day. - levothyroxine (SYNTHROID) 112 mcg tablet - NUEDEXTA 20-10 mg capsule Take 1 capsule by mouth two times a day. - nystatin (MYCOSTATIN, NILSTAT) 500,000 unit tab Take 2 tablets by mouth three times a day with meals. - TherBiotic Complete 120 Ct[address] (Klaire/Prothera) Take 1 capsule by mouth once daily. - itraconazole 0.5 % (CPD) 1-2 sprays to each nostril twice daily - Fish Oil-[place]-3 Fatty Acids 300-1,000 mg cap Take by mouth. 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 - nystatin (MYCOSTATIN, NILSTAT) 500,000 unit tab Take 2 tablets by mouth three times a day with meals. - TherBiotic Complete 120 Ct[address] (Klaire/Prothera) Take 1 capsule by mouth once daily. - itraconazole 0.5 % (CPD) 1-2 sprays to each nostril twice daily - Fish Oil-[place]-3 Fatty Acids 300-1,000 mg cap Take by mouth. - Meriva-SR (Monae) decrease inflammation/pain/gut healing Take 1-2 capsules two times daily ----- Normal [facility] CNOVon 01-03-2024 CNOV Office Visit (WELLME ) ----- WALDEMAR HUDSON ([id number]) 1955 F Date Time Provider Department 01/03/24 2:30 PM CORI HOPE During your visit today, we recorded the following information about you: Cori Hope R Ac 01/03/2024 4:04 PM Signed Waldemar Hudson a 68 year old female presents to the acupuncture clinic on 01/03/24 for a follow up visit. Patient identity confirmed by name and : Yes This is the 7 visit for the patient this year It has been 1 week(s) since the last acupuncture treatment. Last treatment date: 12/27/2023 Initial Acupuncture treatment date: 11/12/2023 Chief Complaint: Primary lateral sclerosis, right knee pain SUBJECTIVE Patient reports 10% improved pain in right knee and 25% improved muscle spasm in right lower limb. She noted her left leg was not bothering her this week. Patient has been battling MS since 2012. Patient has history of Lyme disease, mold exposure and thyroid cancer. Thyroidism Trialed PT, dry needling, chiropractic, massage. PAIN ASSESSMENT: Currently experiencing pain Pain level (0 no pain at all to 10 being the worst): 4 OBJECTIVE: Physical Exam: Tenderness: knees and feet Pain with palpation: na ROM: limited ROM Orthopedic Tests: na Tightness: knees Divina/Trigger points: na Visual Inspection Discoloration: na Edema: no Gait/Ambulation: normal Ovalle: good Qi/Patient vitality: normal Alert Well-Groomed Normal Imaging reports Images on file See EPIC Images have been reviewed no TCM Tongue: NA TCM Pulse: thin and weak ASSESSMENT Patient presents with signs and symptoms consistent with the diagnosis. Patient would benefit from acupuncture therapy to address listed deficiencies and return to PLOF. Pt was educated on symptoms, prognosis, plan of care and activity modifications. Pt verbalized understanding and agreed to begin care. TCM Pattern: PLS due to Qi and blood deficiency. TCM Treatment Principle: Calm Ovalle. Promote smooth flow of Qi and blood. Open channel. Reduce pain. PLAN OF CARE Counseled patient on risks of acupuncture treatment including pain, infection, bleeding, and no relief of pain. The patient was positioned comfortably. There was no evidence of infection at the site of needle insertions. Acupuncture Treatment: Treatment/Needle Set 1, Supine: Points: Yin Gaytan, motor line 2 points bilaterally on the scalp, ear ovalle men, R: Ling Ed Da Austen, Jan Zenon, SJ3, SI3, Di Hudson, GB31 15 minutes face to face with patient for set 1 Treatment/Needle Set 2, Supine: Points: R: GB34, Esquivel Chi, SP9, SP6, R: Si MA points 3, Xi Dinh, KD10, SP10, GB41, ST43 10 minutes face to face with patient for set 2 Calcium were retained for 30 minutes # of needles inserted: 30 # of needles withdrawn: 30 Adjunct techniques used: TDP Infrared Heat Lamp- Applied to Rt. Hip and right knee Patient tolerated the procedure well. UNIVERSAL PROTOCOL / SAFETY CHECKLIST Procedure to be Performed: Acupuncture Sign In: A Moment of CARE was completed. Personnel directly involved with the procedure wore the appropriate PPE (Personal Protective Equipment). Patient/Surrogate Stated/Verified: PATIENT VERIFIED(optional for EMERGENT procedures): Patient name, Date of , Relevant allergies, and The intended procedure Time Out Communication: Intended patient and procedure match the source documents. Consent documented and matches the intended procedure. Sign Out: SIGN OUT (optional for EMERGENT procedures): All instruments, equipment, possible retained foreign bodies accounted for. Trenton Hanson Provider Name: Trenton Hanson 25 Total minutes face to face time spent with patient Acupuncture and [place] herbal therapy are not a substitute for conventional medical diagnosis and treatment. Patient agrees that either: 1. A diagnostic exam has been performed by a physician or chiropractor within the last six months regarding the condition for which they are seeking acupuncture treatment. or 2. If no diagnostic exam by a physician or chiropractor has been done within the last six months regarding the condition for which patient is seeking treatment, the Processing Analyst, per [place] Law, recommends that this diagnostic exam be performed. Referring Provider: SELF [200] Allergies As of Date: 01/03/2024 Noted Allergy Reaction MALARONE (ATOVAQUONE-PROGUANIL) 09/10/2015 4 - Hives THIMERSOL (THIMEROSAL) 04/26/2009 Comments: Makes eyes red- thimerosal in contacts Date Reviewed: 12/19/2023 Reviewed by: Matthew Gallegos MD - Fully Assessed Reason for Visit: Right Knee Pain [1209] Primary Visit Diagnosis: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] Prescriptions as of 01/03/2024 - levothyroxine (SYNTHROID) 112 mcg tablet - NUEDEXTA 20-10 mg capsule Take 1 capsule by mouth two times a day. - nystatin (MYCOSTATIN, NILSTA (more content not included)... Normal [facility] Absolute lymphocyte countOrd ered By: Chela Lynn on 01-02-2024 Lymphocytes Auto (Unsp spec) [#/Vol] 1.79 10*3/uL 0.83-4.51 [facility] Automated lymphocyte count a s percentage of total leukocytesOrdered By: Chela Lynn on 01-02-2024 Lymphocytes/100 WBC Auto (Unsp spec) 36.1 % 19-41 [facility] Basophil percentageOrdered B y: Chela Lynn on 01-02-2024 Basophils/100 WBC (Bld) 1.2 % 0-1 [facility] Bilirubin [Mass/Vol] 0.80 mg/dL 0.20-1.00 [facility] Comment on above: For patients on eltr ombopag therapy, use of Dimension [place] TBIL is not recommended. Chloride [Moles/Vol] 110 mmol/L 98-107 [facility] Eosinophils/100 WBC (Bld) 2.8 % 0-5 [facility] Glucose [Mass/Vol] 89 mg/dL 74-106 [facility] Hemoglobin (Bld) [Mass/Vol] 14.3 g/dL 12.0-15.0 [facility] Monocytes/100 WBC (Bld) 7.3 % 0-10 [facility] Neutrophils (Bld) [#/Vol] 2.6 10*3/uL 2.0-7.7 [facility] Neutrophils/100 WBC (Bld) 52.4 % 47-70 [facility] Potassium [Moles/Vol] 4.0 mmol/L 3.5-5.1 [facility] Protein [Mass/Vol] 6.6 g/dL 6.4-8.2 [facility] Sodium [Moles/Vol] 142 mmol/L 136-145 [facility] WBC (Bld) [#/Vol] 5.0 10*3/uL 4.4-11.0 [facility] Blood erythrocytes count (nu mber/volume)Ordered By: Chela Lynn on 01-02-2024 RBC (Bld) [#/Vol] 4.55 10*6/uL 3.77-5.28 [facility] CNTHERAPYon 01-02-2024 CNTHERAPY OT/PT/Speech Visit ([facility]) ----- WALDEMAR HUDSON ([id number]) 1955 F Date Time Provider Department 01/02/24 3:45 PM NATHAN MADRIGAL [facility] Date Time Provider Department Center 01/02/2024 3:45 PM [id number], CYNTHIA*[facility] Reason for Visit: Physical Therapy [503] 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 - nystatin (MYCOSTATIN, NILSTAT) 500,000 unit tab Take 2 tablets by mouth three times a day with meals. - TherBiotic Complete 120 Ct[address] (Klaire/Prothera) Take 1 capsule by mouth once daily. - itraconazole 0.5 % (CPD) 1-2 sprays to each nostril twice daily - Fish Oil-[place]-3 Fatty Acids 300-1,000 mg cap Take by mouth. - Meriva-SR (Monae) decrease inflammation/pain/gut healing Take 1-2 capsules two times daily ----- [facility] Determination of erythrocyte mean corpuscular volume (MCV)Ordered By: Chela Lynn on 01-02-2024 MCV (RBC) [Entitic vol] 98.5 fL 81-99 [facility] Erythrocyte distribution wid th ratioOrdered By: Chela Lynn on 01-02-2024 Erythrocyte distribution width (RBC) [Ratio] 13.5 % 11.6-14.6 [facility] Erythrocyte distribution wid th standard deviationOrdered By: Chela Lynn on 01-02-2024 Erythrocyte distribution width (RBC) [Entitic vol] 48.8 fL 35.1-43.9 [facility] Erythrocyte [id number] ate dehydrogenase (enzymatic activity/mass)Ordered By: Chela Lynn on 01-02-2024 G6PD (RBC) [Catalytic activity/Mass] 262 127-427 [facility] Comment on above: Result Units: U/10E1 2 RBCWhen decreased, G-6-PD, Quant. values are associated withacute hemolytic anemia when deficient individuals areexposed to oxidative stress, such as with certainmedications (e.g., primaquine), infection, or ingestion offava beans. Caution: In patients with acute hemolysis(e.g., abnormally low RBC values), testing for G-6-PD maybe falsely normal because older erythrocytes with a higherenzyme deficiency have been hemolyzed. Young erythrocytesand reticulocytes have normal or near-normal enzymeactivity. Normal values of G-6-PD may be measured forseveral weeks following a hemolytic event. Hematocrit Auto (Bld) [Volum e fraction]Ordered By: Chela Lynn on 01-02-2024 Hematocrit (Bld) [Volume fraction] 45.4 % 37-47 [facility] Immature granulocytes/100 WB C Auto (Bld)Ordered By: Chela Lynn on 01-02-2024 Immature granulocytes/100 WBC (Bld) 0.200 % 0.0-0.9 [facility] Comment on above: IG% - Immature Granu locytes (promyelocytes, myelocytes and metamyelocytes) > 1% indicates that a LEFT SHIFT is Present. Iron measurement (mass/mass) Ordered By: Chela Lynn on 01-02-2024 Iron (Unsp spec) [Mass/Mass] 131 ug/dL 50-170 [facility] Laboratory - Chemistry and C hemistry - challengeOrdered By: Chela Lynn on 01-02-2024 Albumin/Globulin [Mass ratio] 1.4 {ratio} 0.9-2.4 [facility] ALP [Catalytic activity/Vol] 70 U/L 45-117 [facility] ALT [Catalytic activity/Vol] 21 U/L 13-56 [facility] CO2 [Moles/Vol] 29.0 mmol/L 21.0-32.0 [facility] Ferritin [Mass/Vol] 78 ng/mL 8-252 [facility] Globulin (S) [Mass/Vol] 2.8 g/dL 2.2-4.2 [facility] Urea nitrogen/Creatinine [Mass ratio] 39.4 mg/mg 10-20 [facility] Laboratory - Hematology and Cell countsOrdered By: Chela Lynn on 01-02-2024 MCH (RBC) [Entitic mass] 31.0 pg 27.0-32.0 [facility] MCHC (RBC) [Mass/Vol] 31.5 g/dL 32-36 [facility] Nucleated RBC/100 WBC (Bld) [Ratio] 0 % 0-5 [facility] Platelet mean volume (Bld) [Entitic vol] 10.7 fL 6.2-12.0 [facility] Platelets (Bld) [#/Vol] 198 10*3/uL 150-450 [facility] No Panel InformationOrdered By: Chela Lynn on 01-02-2024 Estimated GFR (MDRD) Amer 138 mL/min >60 [facility] Comment on above: GFR Calc Estimated GFR (MDRD) Non-Af Amer 114 mL/min >60 [facility] Comment on above: Non- GFR Calc Miscellaneous Test See comment [facility] Comment on above: TEST RESULTS LIMITSB rucella Antibody IgG, EIA Negative Negative This assay detects antibodies to Brucella abortus, melitensis, and suis. TESTING PERFORMED AT [facility]. ORIGINAL REPORT ON FILE IN LAB CONTAINS ADDITIONAL TEST SITE INFORMATION. RBC Auto (Bld) [#/Vol]Ordere d By: Chela Lynn on 01-02-2024 RBC (Bld) [#/Vol] 4.61 10*6/uL 4.2-5.4 [facility] Serum Mycoplasma pneumoniae IgG antibody detectionOrdered By: Chela Lynn on 01-02-2024 M. pneumoniae IgG Ql (S) < 100 U/mL 0-99 [facility] Comment on above: Negative: <100 Indet erminate: 100 - 320 Positive: >320The reference interval established is intended as abaseline only. Values >100 may indicate a recentinfection with Mycoplasma pneumoniae and need to beconfirmed either by a positive IgM result and/or anadditional specimen drawn 2-4 weeks later showing asignificant increase in antibody levels. Serum Mycoplasma pneumoniae IgM antibody detectionOrdered By: Chela Lynn on 01-02-2024 M. pneumoniae IgM Ql (S) < 770 U/mL 0-769 [facility] Comment on above: Negative <770Clinica lly significant amount of M. pneumoniae antibodynot detected. Low Positive 770 - 950M. pneumoniae specific IgM presumptively detected. Itis recommended that another sample be collected 1-2weeks later to assure reactivity. Positive >950Highly significant amount of M. pneumoniae specificIgM antibody detected.Performed at: [employer] [address] [id number] Director: Petey Ibarra PhD, Phone: [phone] at: - [facility] [id number] Director: Neetu Tong MD, Phone: [phone] Serum or plasma calcium lilliana urement (mass/volume)Ordered By: Chela Lynn on 01-02-2024 Calcium [Mass/Vol] 9.1 mg/dL 8.5-10.1 [facility] Serum or plasma creatinine m easurement (mass/volume)Ordered By: Chela Lynn on 01-02-2024 Creatinine [Mass/Vol] 0.56 mg/dL 0.55-1.02 [facility] Comment on above: The validity of the calculated GFR & GFRAA in patients over 70 years has not been determined. Clinical correlation is essential. Serum or plasma urea nitroge n measurement (mass/volume)Ordered By: Chela Lynn on 01-02-2024 Urea nitrogen [Mass/Vol] 22 mg/dL 7-18 [facility] Thin prep Papanicolaou smear with manual screeningOrdered By: Chela Lynn on 01-02-2024 Thin prep Papanicolaou smear with manual screening 3.8 g/dL 3.2-5.0 [facility] Thin prep Papanicolaou smear with manual screening 17 U/L 15-37 [facility] Thin prep Papanicolaou smear with manual screening 3 5-15 [facility] CNOVon 12-31-2023 CNOV Office Visit ([facility] ) ----- WALDEMAR HUDSON ([id number]) 1955 F Date Time Provider Department 12/31/23 1:00 PM JOAN PRIETO [facility] During your visit today, we recorded the following information about you: Pulse Blood pressure Weight Height 70/minute 123/64 73.5 kg 1.702 m Joan Prieto MD 01/01/2024 4:19 PM Signed Referring Physician: No referring provider defined for this encounter. Consultation requested by the patient for an opinion regarding upper motor neuron disease. My final recommendations will be communicated back to the requesting physician by way of shared Medical record or letter to requesting physician via fax or US mail. 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 She reports frequent travel to multiple , , and [place] for work in [phone]. 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 In 2011 she returned from a trip to [facility] and developed flu-like symptoms. A few months later she noted gait changes due to catching her left toes on the ground. She also noted difficulty arising from chairs. In late 2012 she noted similar symptoms in the right leg. In late 2014 she noted left arm problems, with finger weakness leading to difficulties writing as well as trouble reaching overhead. In 2016 she noted similar problems with the right arm. She reports gait changes leading to use of a cane in 03/2015, then a walker in 2016, and a wheelchair in 2023. The most recent gait limitations are worsened by right knee pain which she attributes to arthritis. In 2016 a neurologist commented on dysarthria though the patient was not noticing issues at that time. She reports progressive dysarthria from 2016 to present, though she was still able to give professional presentations through 2020. She has noted dysphagia, worse with liquids, as well as throat spasms with some oral intake. She was previously seen by neurology at [facility] and had MRIs, EMG, labs, and CSF. She was given a diagnosis of PLS. ROS: CONSTITUTIONAL: No reported fevers, chills, night sweats. Positive for unintentional weight loss of 30 pounds over 10 years. EYES: Recent improvement in vision after cataract surgery. No eye pain or orbital swelling reported. HEENT: No hearing changes or vertiginous symptoms indicated. No history of nose bleeds reported. RESPIRATORY: No reported cough, sputum, wheezing and dyspnea. CARDIOVASCULAR: Negative for significant chest pain, and palpitations per report. GI: GERD and poor appetite. : Prior incontinence - now improved. MUSCLOSKELETAL: See HPI SKIN: Frequent rashes. PSYCH: No reported depression or anxiety symptoms. NEURO: Per HPI above. No reported sleep disturbance. Prior Studies: Labs: normal: SHELLY, metanephrines, Lyme PCR (2014); VLCFA, copper, and B12 (2016) abnormal: none CSF Labs 10/28/2015: normal: WBC 2, RBC 2, glucose 67 IgG index, HTLV, abnormal: protein 46 (nl 15-45), OCB with 4 bands corresponding to serum though more prominent in CSF EMG 10/22/2017: NCS: Sensory: L sural, median, and ulnar Motor: nl L peroneal to EDB, ulnar, and median NEE: fibs in L FDI and pro ter, high amp MUAP in FDI; LUE/LE/T PSP nl MRI brain 10/23/2022: No acute abnormality. Sequelae of chronic microvascular disease. MRI cervical spine 10/22/2017: No acute fracture or malalignment. Mild degenerative changes of the cervical spine PAST MEDICAL HISTORY Diagnosis Date Arrhythmia irregular heart rate-several yrs ago-PVC's Endometriosis Esophageal reflux 05/24/2005 Lichen sclerosus PERS HX OF THYROID MALIGNANCY 05/24/2005 Primary lateral sclerosis (HCC) 2017 Snoring Uterine fibroid PAST SURGICAL HISTORY Procedure Laterality Date COLONOSCOPY FLX DX W/COLLJ SPEC WHEN PFRMD 09/03/2003 Colonoscopy COLONOSCOPY FLX DX W/COLLJ SPEC WHEN PFRMD 10/01/2014 Colonoscopy EGD TRANSORAL BIOPSY SINGLE/MULTIPLE 03/09/2006 Hiatal hernia/gastritis/esophagi tis ESOPHAGOGASTRODUODENOSCOP Y TRANSORAL DIAGNOSTIC 10/01/2014 EGD LAPS SURG CHOLECYSTECTOMY W/CHOLANGIOGRAPHY 03/12/2006 PAST SURGICAL HISTORY OF 03/12/2006 transvaginal sling REMOVAL SKN TAGS DIRECTOR CHECK FIBRQ TAGS ANY AREA UPW/15 03/18/2011 Ablation skin tags/ shave bx x 2 REMV CATARACT EXTRACAP,INSERT LENS 12/2023 S SLING BLADDER SALPINGO-OOPHORECTOMY COMPL/PRTL UNI/BI SPX 10/25/2000 Salpingo-oophorectomy THYROIDECTOMY TOTAL/COMPLETE 07/19/2001 For Cancer THYROIDECTOMY TOTAL/COMPLETE TOTAL ABDOMINAL HYSTERECT W/WO RMVL TUBE OVARY 10/25/2000 Hysterectomy, FIDE for fibroids and abnormal menstruation FAMILY HISTORY Problem Relation Age of Onset other (Other [Other]) Mother normal pressure hydrocephalous (more content not included)... Normal [facility] [id number] 12-28-2023 [id number] HNO ID: [id number] Author: NATHAN MADRIGAL PT Service: ? Author Type: Physical Therapist Type: [id number] Filed: 12/28/2023 17:52 Note Text: [facility] Physical Therapy Plan of Care Certification Patient Name: Waldemar Hudson : 1955 [facility] #: [id number] Date: 12/28/2023 To: Matthew Gallegos MD From Therapist: Nathan Madrigal PT, ANABELLE RE: Patient Certification/ Recertification Your review, approval and electronic signature are required in order to comply with Payor: [employer] MEDICARE / Plan: [employer] MEDICARE PPO / Product Type: PPO / regulations. The identified Physical Therapy PLAN OF CARE for the patient is as follows: G12.20 Motor neuron disease (HCC) (primary encounter diagnosis) R26.2 Impaired ambulation M62.838 Muscle spasticity R29.898 Impaired flexibility of lower extremity R26.9 Abnormality of gait M79.604 Right leg pain PLAN OF CARE UPDATE: Assessment: Waldemar Hudson demonstrates continued progression towards improved available knee ROM, working to reduce LE tone and improve LE and core strength to improve overall mobility, transfers, and ambulation status.. She has progressed toward goals. Patient continues to present with impairments in ADL's, flexibility, independence in exercise, overall function, range of motion, and symptom management that interfere with rising from a chair, walking in the house, stair negotiation, bending, sleeping, dressing, grooming, physical activities, Comments Patient and her report that stair negotiation requires less assist for L LE and that her stability on the steps has imrpoved.. Current prognosis is Fair due to: clinical presentation, chronic nature of impairments, limited tolerance to activity, Prognosis may be improved by good support system/ coping skills, positive past response to therapy. She will benefit from continued skilled therapy services to meet the updated goals for this plan of care as noted below. Goals for Episode of Care: created on 12/28/2023 through 02/15/2024 Patient will increase active ROM of bilateral knees to no greater than 10-15 degrees from achieving full knee extension to allow patient to improve postural alignment, to improve gait mechanics / gait pattern , and to decrease falls risks. (Ongoing) Patient will be able to correct postural deviations with minimal assist verbal cues in order to improve postural alignment of trunk during transfers, ambulation, and standing and to decrease current R LE pain. (Progressing and ongoing) Decrease R hip/R knee pain to 1-4/10 at rest and with functional activities to allow patient to improve ambulation, transfers, and standing tolerance for ADLs. (Ongoing) Patient will ambulate 50-75 feet with rolling walker with stand by assist to allow patient to be able to ambulate to and from her bathroom at home with less difficulty. (Ongoing. We have not addressed ambulation as much recently due to R knee pain) Patient to be able to non-reciprocally negotiate stairs at home with bilateral rail use with assist of for safety as needed and be able to complete this task in 5 minutes as she did previously. (Ongoing with patient and noting less time to complete and less assist needed for L LE advancement on the steps at home) Patient Goals: To reduce my right knee pain Planned Interventions, Frequency, and Duration: 2x/week, 6 weeks Total Number of Visits Planned: 12 Patient to be seen for Therapeutic exercise (90320), Neuromuscular re-education (23416), Manual therapy (52777), Therapeutic activities (22607), Self-nursing home management (51126), Gait Training (58927), Patient/Family/Caregiver Education PLAN FOR NEXT VISIT: Resume standing exercises as able. Continue LE passive stretching and LE/core strengthening exercises. For further details regarding this patient refer to the Physical Therapy electronically documented visit dated 12/28/2023. Provider Attestation I have reviewed the treatment plan for Waldemar Khalil Jax, [facility]# [id number] for the period of 12/28/23 -- 02/15/24, established on 12/28/2023. Signature certifies the need for therapy services. [facility] CNTHERAPYon 12-28-2023 CNTHERAPY OT/PT/Speech Visit ([facility]) ----- WALDEMAR HUDSON ([id number]) 1955 F Date Time Provider Department 12/28/23 3:00 PM NATHAN MADRIGAL [facility] Date Time Provider Department Center 12/28/2023 3:00 PM [id number], CYNTHIA*[facility] M Reason for Visit: PT Progress Note [1596] 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] Other Visit Diagnoses:Impaired ambulation [R26.2] Muscle spasticity [M62.838] Impaired flexibility of lower extremity [R29.898] Abnormality of gait [R26.9] Right leg pain [M79.604] Allergies As of Date: 12/28/2023 Noted Allergy Reaction MALARONE (ATOVAQUONE-PROGUANIL) 09/10/2015 4 - Hives THIMERSOL (THIMEROSAL) 04/26/2009 Comments: Makes eyes red- thimerosal in contacts Date Reviewed: 12/19/2023 Reviewed by: Matthew Gallegos MD - Fully Assessed Prescriptions as of 12/28/2023 - nystatin (MYCOSTATIN, NILSTAT) 500,000 unit tab Take 2 tablets by mouth three times a day with meals. - TherBiotic Complete 120 Ct[address] (Klaire/Prothera) Take 1 capsule by mouth once daily. - itraconazole 0.5 % (CPD) 1-2 sprays to each nostril twice daily - Fish Oil-[place]-3 Fatty Acids 300-1,000 mg cap Take by mouth. - Meriva-SR (Monae) decrease inflammation/pain/gut healing Take 1-2 capsules two times daily ----- Normal [facility] CNOVon 12-27-2023 CNOV Office Visit ([facility] ) ----- WALDEMAR HUDSON ([id number]) 1955 F Date Time Provider Department 12/27/23 2:30 PM CORI HOPE During your visit today, we recorded the following information about you: Cori Hope R Ac 12/27/2023 4:10 PM Signed Waldemar Hudson a 68 year old female presents to the acupuncture clinic on 12/27/23 for a follow up visit. Patient identity confirmed by name and : Yes This is the 6 visit for the patient this year It has been 1 week(s) since the last acupuncture treatment. Last treatment date: 12/20/2023 Initial Acupuncture treatment date: 11/12/2023 Chief Complaint: Primary lateral sclerosis, right knee pain SUBJECTIVE Patient returns with improved pain in left knee, however with ongoing muscle spasm in right lower leg. She noticed involuntary muscle movement has been also subsided so far. Patient noted improving sleep quality. Patient has been battling MS since 2012. Patient has history of Lyme disease, mold exposure and thyroid cancer. Thyroidism Trialed PT, dry needling, chiropractic, massage. PAIN ASSESSMENT: Currently experiencing pain Pain level (0 no pain at all to 10 being the worst): 4 OBJECTIVE: Physical Exam: Tenderness: knees and feet Pain with palpation: na ROM: limited ROM Orthopedic Tests: na Tightness: knees Divina/Trigger points: na Visual Inspection Discoloration: na Edema: no Gait/Ambulation: normal Ovalle: good Qi/Patient vitality: normal Alert Well-Groomed Normal Imaging reports Images on file See EPIC Images have been reviewed no TCM Tongue: NA TCM Pulse: thin and weak ASSESSMENT Patient presents with signs and symptoms consistent with the diagnosis. Patient would benefit from acupuncture therapy to address listed deficiencies and return to PLOF. Pt was educated on symptoms, prognosis, plan of care and activity modifications. Pt verbalized understanding and agreed to begin care. TCM Pattern: PLS due to Qi and blood deficiency. TCM Treatment Principle: Calm Ovalle. Promote smooth flow of Qi and blood. Open channel. Reduce pain. PLAN OF CARE Counseled patient on risks of acupuncture treatment including pain, infection, bleeding, and no relief of pain. The patient was positioned comfortably. There was no evidence of infection at the site of needle insertions. Acupuncture Treatment: Treatment/Needle Set 1, Supine: Points: Yin Gaytan, motor line 2 points bilaterally on the scalp, ear ovalle men, R: Ling Ed Da Austen, Jan Zeonn, SJ3, SI3, Di Hudson, GB31 15 minutes face to face with patient for set 1 Treatment/Needle Set 2, Supine: Points: R: GB34, Esquivel Chi, SP9, SP6, R: Si MA points 3, Xi Dinh, KD10, SP10, GB41, ST43 10 minutes face to face with patient for set 2 Calcium were retained for 30 minutes # of needles inserted: 30 # of needles withdrawn: 30 Adjunct techniques used: TDP Infrared Heat Lamp- Applied to Rt. Hip and right knee Patient tolerated the procedure well. UNIVERSAL PROTOCOL / SAFETY CHECKLIST Procedure to be Performed: Acupuncture Sign In: A Moment of CARE was completed. Personnel directly involved with the procedure wore the appropriate PPE (Personal Protective Equipment). Patient/Surrogate Stated/Verified: PATIENT VERIFIED(optional for EMERGENT procedures): Patient name, Date of , Relevant allergies, and The intended procedure Time Out Communication: Intended patient and procedure match the source documents. Consent documented and matches the intended procedure. Sign Out: SIGN OUT (optional for EMERGENT procedures): All instruments, equipment, possible retained foreign bodies accounted for. Trenton Hanson Provider Name: Trenton Hanson 25 Total minutes face to face time spent with patient Acupuncture and [place] herbal therapy are not a substitute for conventional medical diagnosis and treatment. Patient agrees that either: 1. A diagnostic exam has been performed by a physician or chiropractor within the last six months regarding the condition for which they are seeking acupuncture treatment. or 2. If no diagnostic exam by a physician or chiropractor has been done within the last six months regarding the condition for which patient is seeking treatment, the Processing Analyst, per [place] Law, recommends that this diagnostic exam be performed. Referring Provider: SELF [[id number]] Allergies As of Date: 12/27/2023 Noted Allergy Reaction MALARONE (ATOVAQUONE-PROGUANIL) 09/10/2015 4 - Hives THIMERSOL (THIMEROSAL) 04/26/2009 Comments: Makes eyes red- thimerosal in contacts Date Reviewed: 12/19/2023 Reviewed by: Matthew Gallegos MD - Fully Assessed Reason for Visit: Right Knee Pain [1209] Primary Visit Diagnosis: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] Prescriptions as of 12/27/2023 - nystatin (MYCOSTATIN, NILSTAT) 500,000 unit tab Take 2 tablets by mouth three ti (more content not included)... [facility] CNTHERAPYon 12-21-2023 CNTHERAPY OT/PT/Speech Visit ([facility]) ----- WALDEMAR HUDSON ([id number]) 1955 F Date Time Provider Department 12/21/23 1:15 PM DAJA GOMEZ [facility] Date Time Provider Department Center 12/21/2023 1:15 PM [id number], AMBER M [facility] M Reason for Visit: Physical Therapy [503] 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] Other Visit Diagnoses:Impaired ambulation [R26.2] Muscle spasticity [M62.838] Impaired flexibility of lower extremity [R29.898] Abnormality of gait [R26.9] Right leg pain [M79.604] Allergies As of Date: 12/21/2023 Noted Allergy Reaction MALARONE (ATOVAQUONE-PROGUANIL) 09/10/2015 4 - Hives THIMERSOL (THIMEROSAL) 04/26/2009 Comments: Makes eyes red- thimerosal in contacts Date Reviewed: 12/19/2023 Reviewed by: Matthew Gallegos MD - Fully Assessed Prescriptions as of 12/21/2023 - nystatin (MYCOSTATIN, NILSTAT) 500,000 unit tab Take 2 tablets by mouth three times a day with meals. - TherBiotic Complete 120 Ct[address] (Klaire/Prothera) Take 1 capsule by mouth once daily. - itraconazole 0.5 % (CPD) 1-2 sprays to each nostril twice daily - Fish Oil-[place]-3 Fatty Acids 300-1,000 mg cap Take by mouth. - Meriva-SR (Monae) decrease inflammation/pain/gut healing Take 1-2 capsules two times daily ----- Normal [facility] CNOVon 12-20-2023 CNOV Office Visit (WELLME ) ----- WALDEMAR HUDSON ([id number]) 1955 F Date Time Provider Department 12/20/23 3:00 PM CORI HOPE During your visit today, we recorded the following information about you: Cori Hope R 12/20/2023 4:02 PM Signed Waldemar Hudson a 68 year old female presents to the acupuncture clinic on 12/20/23 for a follow up visit. Patient identity confirmed by name and : Yes This is the 5 visit for the patient this year It has been 1 week(s) since the last acupuncture treatment. Last treatment date: 12/13/2023 Initial Acupuncture treatment date: 11/12/2023 Chief Complaint: Primary lateral sclerosis, right knee pain SUBJECTIVE Patient returns with improving pain in right knee, right anterolateral thigh, and nighttime cramp condition. However, patient seems to have pain in the right knee with lightly touching on her knee or thigh area. She noticed involuntary muscle movement has been also subsided so far. Patient noted improving sleep quality. Patient has been battling MS since 2012. Patient has history of Lyme disease, mold exposure and thyroid cancer. Thyroidism Trialed PT, dry needling, chiropractic, massage. PAIN ASSESSMENT: Currently experiencing pain Pain level (0 no pain at all to 10 being the worst): 4 OBJECTIVE: Physical Exam: Tenderness: knees and feet Pain with palpation: na ROM: limited ROM Orthopedic Tests: na Tightness: knees Divina/Trigger points: na Visual Inspection Discoloration: na Edema: no Gait/Ambulation: normal Ovalle: good Qi/Patient vitality: normal Alert Well-Groomed Normal Imaging reports Images on file See EPIC Images have been reviewed no TCM Tongue: NA TCM Pulse: thin and weak ASSESSMENT Patient presents with signs and symptoms consistent with the diagnosis. Patient would benefit from acupuncture therapy to address listed deficiencies and return to PLOF. Pt was educated on symptoms, prognosis, plan of care and activity modifications. Pt verbalized understanding and agreed to begin care. TCM Pattern: PLS due to Qi and blood deficiency. TCM Treatment Principle: Calm Ovalle. Promote smooth flow of Qi and blood. Open channel. Reduce pain. PLAN OF CARE Counseled patient on risks of acupuncture treatment including pain, infection, bleeding, and no relief of pain. The patient was positioned comfortably. There was no evidence of infection at the site of needle insertions. Acupuncture Treatment: Treatment/Needle Set 1, Supine: Points: Yin Gaytan, motor line 2 points bilaterally on the scalp, ear ovalle men, R: Ling Gu Da Austen, SJ3, SI3, Di Hudson, GB31 15 minutes face to face with patient for set 1 Treatment/Needle Set 2, Supine: Points: B: GB34, Esquivel Chi, SP9, SP6, R: Si MA points 3, Xi Dinh, KD10, SP10 10 minutes face to face with patient for set 2 Calcium were retained for 30 minutes # of needles inserted: 30 # of needles withdrawn: 30 Adjunct techniques used: TDP Infrared Heat Lamp- Applied to Rt. Hip and right knee Patient tolerated the procedure well. UNIVERSAL PROTOCOL / SAFETY CHECKLIST Procedure to be Performed: Acupuncture Sign In: A Moment of CARE was completed. Personnel directly involved with the procedure wore the appropriate PPE (Personal Protective Equipment). Patient/Surrogate Stated/Verified: PATIENT VERIFIED(optional for EMERGENT procedures): Patient name, Date of , Relevant allergies, and The intended procedure Time Out Communication: Intended patient and procedure match the source documents. Consent documented and matches the intended procedure. Sign Out: SIGN OUT (optional for EMERGENT procedures): All instruments, equipment, possible retained foreign bodies accounted for. Trenton Hanson Provider Name: Trenton Hanson 25 Total minutes face to face time spent with patient Acupuncture and [place] herbal therapy are not a substitute for conventional medical diagnosis and treatment. Patient agrees that either: 1. A diagnostic exam has been performed by a physician or chiropractor within the last six months regarding the condition for which they are seeking acupuncture treatment. or 2. If no diagnostic exam by a physician or chiropractor has been done within the last six months regarding the condition for which patient is seeking treatment, the Processing Analyst, per [place] Law, recommends that this diagnostic exam be performed. Referring Provider: DANIEL PAEZ [[id number]] Allergies As of Date: 12/20/2023 Noted Allergy Reaction MALARONE (ATOVAQUONE-PROGUANIL) 09/10/2015 4 - Hives THIMERSOL (THIMEROSAL) 04/26/2009 Comments: Makes eyes red- thimerosal in contacts Date Reviewed: 12/19/2023 Reviewed by: Matthew Gallegos MD - Fully Assessed Reason for Visit: Right Knee Pain [1209] Primary Visit Diagnosis: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] Prescriptions (more content not included)... Normal [facility] CNTHERAPYon 12-18-2023 CNTHERAPY OT/PT/Speech Visit ([facility]) ----- WALDEMAR HUDSON ([id number]) 1955 F Date Time Provider Department 12/18/23 3:45 PM NATHAN MADRIGAL [facility] Date Time Provider Department Center 12/18/2023 3:45 PM [id number], CYNTHIA*[facility] Health [facility] M Reason for Visit: Physical Therapy [503] 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] Other Visit Diagnoses:Impaired ambulation [R26.2] Muscle spasticity [M62.838] Impaired flexibility of lower extremity [R29.898] Abnormality of gait [R26.9] Right leg pain [M79.604] Allergies As of Date: 12/18/2023 Noted Allergy Reaction MALARONE (ATOVAQUONE-PROGUANIL) 09/10/2015 4 - Hives THIMERSOL (THIMEROSAL) 04/26/2009 Comments: Makes eyes red- thimerosal in contacts Date Reviewed: 12/25/2018 Reviewed by: Lee Ortiz - Fully Assessed Prescriptions as of 12/18/2023 - nystatin (MYCOSTATIN, NILSTAT) 500,000 unit tab Take 2 tablets by mouth three times a day with meals. - TherBiotic Complete 120 Ct[address] (Klaire/Prothera) Take 1 capsule by mouth once daily. - itraconazole 0.5 % (CPD) 1-2 sprays to each nostril twice daily - Fish Oil-[place]-3 Fatty Acids 300-1,000 mg cap Take by mouth. - Meriva-SR (Monae) decrease inflammation/pain/gut healing Take 1-2 capsules two times daily ----- Normal [facility] CNTHERAPYon 12-14-2023 CNTHERAPY OT/PT/Speech Visit ([facility]) ----- WALDEMAR HUDSON ([id number]) 1955 F Date Time Provider Department 12/14/23 3:00 PM NATHAN MADRIGAL [facility] Date Time Provider Department Center 12/14/2023 3:00 PM [id number], CYNTHIA*[facility] Health [facility] M Reason for Visit: Physical Therapy [503] 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] Other Visit Diagnoses:Impaired ambulation [R26.2] Muscle spasticity [M62.838] Impaired flexibility of lower extremity [R29.898] Abnormality of gait [R26.9] Right leg pain [M79.604] Allergies As of Date: 12/14/2023 Noted Allergy Reaction MALARONE (ATOVAQUONE-PROGUANIL) 09/10/2015 4 - Hives THIMERSOL (THIMEROSAL) 04/26/2009 Comments: Makes eyes red- thimerosal in contacts Date Reviewed: 12/25/2018 Reviewed by: Lee Ortiz - Fully Assessed Prescriptions as of 12/14/2023 - nystatin (MYCOSTATIN, NILSTAT) 500,000 unit tab Take 2 tablets by mouth three times a day with meals. - TherBiotic Complete 120 Ct[address] (Klaire/Prothera) Take 1 capsule by mouth once daily. - itraconazole 0.5 % (CPD) 1-2 sprays to each nostril twice daily - Fish Oil-[place]-3 Fatty Acids 300-1,000 mg cap Take by mouth. - Meriva-SR (Monae) decrease inflammation/pain/gut healing Take 1-2 capsules two times daily ----- Normal [facility] CNOVon 12-13-2023 CNOV Office Visit (WELLME ) ----- WALDEMAR HUDSON ([id number]) 1955 F Date Time Provider Department 12/13/23 11:00 AM CORI HOPE During your visit today, we recorded the following information about you: Cori Hope R Ac 12/13/2023 5:00 PM Signed Waldemar Hudson a 68 year old female presents to the acupuncture clinic on 12/13/23 for a follow up visit. Patient identity confirmed by name and : Yes This is the 4 visit for the patient this year It has been 1 week(s) since the last acupuncture treatment. Last treatment date: 12/04/2023 Initial Acupuncture treatment date: 11/12/2023 Chief Complaint: Primary lateral sclerosis, right knee pain SUBJECTIVE Patient returns with slightly improved muscle cramp in right thigh and right knee. Patient still experiences involuntary muscle movement in right lower limb. She noted her shoulder pain has been not bad. Patient has been experiencing muscle spasm in right anterolateral thigh. Patient has been battling MS since 2012. Patient has history of Lyme disease, mold exposure and thyroid cancer. Thyroidism Trialed PT, dry needling, chiropractic, massage. PAIN ASSESSMENT: Currently experiencing pain Pain level (0 no pain at all to 10 being the worst): 4 OBJECTIVE: Physical Exam: Tenderness: knees and feet Pain with palpation: na ROM: limited ROM Orthopedic Tests: na Tightness: knees Divina/Trigger points: na Visual Inspection Discoloration: na Edema: no Gait/Ambulation: normal Ovalle: good Qi/Patient vitality: normal Alert Well-Groomed Normal Imaging reports Images on file See EPIC Images have been reviewed no TCM Tongue: NA TCM Pulse: thin and weak ASSESSMENT Patient presents with signs and symptoms consistent with the diagnosis. Patient would benefit from acupuncture therapy to address listed deficiencies and return to PLOF. Pt was educated on symptoms, prognosis, plan of care and activity modifications. Pt verbalized understanding and agreed to begin care. TCM Pattern: PLS due to Qi and blood deficiency. TCM Treatment Principle: Calm Ovalle. Promote smooth flow of Qi and blood. Open channel. Reduce pain. PLAN OF CARE Counseled patient on risks of acupuncture treatment including pain, infection, bleeding, and no relief of pain. The patient was positioned comfortably. There was no evidence of infection at the site of needle insertions. Acupuncture Treatment: Treatment/Needle Set 1, Supine: Points: Yin Gaytan, motor line 2 points bilaterally on the scalp, R: Ling Ed Da Austen, SJ3, SI3, SP9, Di Hudson, SP6, GB31 15 minutes face to face with patient for set 1 Treatment/Needle Set 2, Supine: Points: B: Esquivel Chi, R: GB41, UB60, Si MA points 3, Xi Dinh, KD10, SP10, LV3 10 minutes face to face with patient for set 2 Calcium were retained for 30 minutes # of needles inserted: 27 # of needles withdrawn: 27 Adjunct techniques used: TDP Infrared Heat Lamp- Applied to Rt. Hip and right knee Patient tolerated the procedure well. UNIVERSAL PROTOCOL / SAFETY CHECKLIST Procedure to be Performed: Acupuncture Sign In: A Moment of CARE was completed. Personnel directly involved with the procedure wore the appropriate PPE (Personal Protective Equipment). Patient/Surrogate Stated/Verified: PATIENT VERIFIED(optional for EMERGENT procedures): Patient name, Date of , Relevant allergies, and The intended procedure Time Out Communication: Intended patient and procedure match the source documents. Consent documented and matches the intended procedure. Sign Out: SIGN OUT (optional for EMERGENT procedures): All instruments, equipment, possible retained foreign bodies accounted for. Trenton Hanson Provider Name: Trenton Hanson 25 Total minutes face to face time spent with patient Acupuncture and [place] herbal therapy are not a substitute for conventional medical diagnosis and treatment. Patient agrees that either: 1. A diagnostic exam has been performed by a physician or chiropractor within the last six months regarding the condition for which they are seeking acupuncture treatment. or 2. If no diagnostic exam by a physician or chiropractor has been done within the last six months regarding the condition for which patient is seeking treatment, the Processing Analyst, per [place] Law, recommends that this diagnostic exam be performed. 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 - TherBiotic Complete 120 Ct[address] (Klaire/Prothera) Take 1 capsule by mouth once daily. - itraconazole 0.5 % (CPD) 1-2 sprays to each nostril twice daily - Fish Oil-[place]-3 Fatty Acids 300-1,000 mg cap Take by mouth. - Meriva-SR (Monae) decrease inflammation/pain/gut healing Take 1-2 capsules two times daily ----- [facility] CNOVon 12-04-2023 CNOV Office Visit ([facility]AL[facility] ) ----- WALDEMRA HUDSON ([id number]) 1955 F Date Time Provider Department 12/04/23 2:00 PM CORI HOPE During your visit today, we recorded the following information about you: Cori Hope R Ac 12/04/2023 4:11 PM Signed Waldemar Hudson a 67 year old female presents to the acupuncture clinic on 12/04/23 for a follow up visit. Patient identity confirmed by name and : Yes This is the 3 visit for the patient this year It has been 1 week(s) since the last acupuncture treatment. Last treatment date: 11/27/2023 Initial Acupuncture treatment date: 11/12/2023 Chief Complaint: Primary lateral sclerosis SUBJECTIVE Patient returns with ongoing muscle weakness, pain in right knee with swellings, sharp pain in right hip and ankles. She noted her shoulder pain has been not bad. Patient has been experiencing muscle spasm in right anterolateral thigh. Patient has been battling MS since 2012. Patient has history of Lyme disease, mold exposure and thyroid cancer. Thyroidism Trialed PT, dry needling, chiropractic, massage. PAIN ASSESSMENT: Currently experiencing pain Pain level (0 no pain at all to 10 being the worst): 4 OBJECTIVE: Physical Exam: Tenderness: knees and feet Pain with palpation: na ROM: limited ROM Orthopedic Tests: na Tightness: knees Divina/Trigger points: na Visual Inspection Discoloration: na Edema: no Gait/Ambulation: normal Ovalle: good Qi/Patient vitality: normal Alert Well-Groomed Normal Imaging reports Images on file See EPIC Images have been reviewed no TCM Tongue: NA TCM Pulse: thin and weak ASSESSMENT Patient presents with signs and symptoms consistent with the diagnosis. Patient would benefit from acupuncture therapy to address listed deficiencies and return to PLOF. Pt was educated on symptoms, prognosis, plan of care and activity modifications. Pt verbalized understanding and agreed to begin care. TCM Pattern: PLS due to Qi and blood deficiency. TCM Treatment Principle: Calm Ovalle. Promote smooth flow of Qi and blood. Open channel. Reduce pain. PLAN OF CARE Counseled patient on risks of acupuncture treatment including pain, infection, bleeding, and no relief of pain. The patient was positioned comfortably. There was no evidence of infection at the site of needle insertions. Acupuncture Treatment: Treatment/Needle Set 1, Supine: Points: Yin Gaytan, motor line 2 points bilaterally on the scalp, R: Ling Ed Da Austen, SJ3, SP9, Di Hduson, SP6, GB31 15 minutes face to face with patient for set 1 Treatment/Needle Set 2, Supine: Points: B: Esquivel Chi, R: UB59, UB60, Si MA points 3, Xi Dinh, KD10, SP10 10 minutes face to face with patient for set 2 Calcium were retained for 30 minutes # of needles inserted: 25 # of needles withdrawn: 25 Adjunct techniques used: TDP Infrared Heat Lamp- Applied to Rt. Hip and right knee Patient tolerated the procedure well. UNIVERSAL PROTOCOL / SAFETY CHECKLIST Procedure to be Performed: Acupuncture Sign In: A Moment of CARE was completed. Personnel directly involved with the procedure wore the appropriate PPE (Personal Protective Equipment). Patient/Surrogate Stated/Verified: PATIENT VERIFIED(optional for EMERGENT procedures): Patient name, Date of , Relevant allergies, and The intended procedure Time Out Communication: Intended patient and procedure match the source documents. Consent documented and matches the intended procedure. Sign Out: SIGN OUT (optional for EMERGENT procedures): All instruments, equipment, possible retained foreign bodies accounted for. Trenton Hanson Provider Name: Trenton Hanson 25 Total minutes face to face time spent with patient Acupuncture and [place] herbal therapy are not a substitute for conventional medical diagnosis and treatment. Patient agrees that either: 1. A diagnostic exam has been performed by a physician or chiropractor within the last six months regarding the condition for which they are seeking acupuncture treatment. or 2. If no diagnostic exam by a physician or chiropractor has been done within the last six months regarding the condition for which patient is seeking treatment, the Processing Analyst, per [place], recommends that this diagnostic exam be performed. 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 - TherBiotic Complete 120 Ct[address] (Klaire/Prothera) Take 1 (more content not included)... 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 - TherBiotic Complete 120 Ct[address] (Klaire/Prothera) Take 1 capsule by mouth once daily. - itraconazole 0.5 % (CPD) 1-2 sprays to each nostril twice daily - Fish Oil-[place]-3 Fatty Acids 300-1,000 mg cap Take by mouth. - Meriva-SR (Monae) decrease inflammation/pain/gut healing Take 1-2 capsules two times daily ----- [facility] CNOVon 11-27-2023 CNOV Office Visit ([facility] ) ----- GRABIEL HUDSONLY Simran ([id number]) 1955 F Date Time Provider Department 11/27/23 4:00 PM CORI HOPE During your visit today, we recorded the following information about you: Cori Hope R Ac 11/27/2023 5:16 PM Signed Waldemar Hudson a 67 year old female presents to the acupuncture clinic on 11/27/23 for a follow up visit. Patient identity confirmed by name and : Yes This is the 2 visit for the patient this year It has been 2 week(s) since the last acupuncture treatment. Last treatment date: 11/12/2023 Initial Acupuncture treatment date: 11/12/2023 Chief Complaint: Primary lateral Sclerosis SUBJECTIVE Patient returns with ongoing muscle weakness, pain in right knee with swellings, sharp pain in right hip and ankles. She noted her shoulder pain has been not bad. Patient has been battling MS since 2013. Patient has history of Lyme disease, mold exposure and thyroid cancer. Thyroidism Trialed PT, dry needling, chiropractic, massage. PAIN ASSESSMENT: Currently experiencing pain Pain level (0 no pain at all to 10 being the worst): 4 OBJECTIVE: Physical Exam: Tenderness: knees and feet Pain with palpation: na ROM: limited ROM Orthopedic Tests: na Tightness: knees Divina/Trigger points: na Visual Inspection Discoloration: na Edema: no Gait/Ambulation: normal Ovalle: good Qi/Patient vitality: normal Alert Well-Groomed Normal Imaging reports Images on file See EPIC Images have been reviewed no TCM Tongue: NA TCM Pulse: thin and weak ASSESSMENT Patient presents with signs and symptoms consistent with the diagnosis. Patient would benefit from acupuncture therapy to address listed deficiencies and return to PLOF. Pt was educated on symptoms, prognosis, plan of care and activity modifications. Pt verbalized understanding and agreed to begin care. TCM Pattern: PLS due to Qi and blood deficiency. TCM Treatment Principle: Calm Ovalle. Promote smooth flow of Qi and blood. Open channel. Reduce pain. PLAN OF CARE Counseled patient on risks of acupuncture treatment including pain, infection, bleeding, and no relief of pain. The patient was positioned comfortably. There was no evidence of infection at the site of needle insertions. Acupuncture Treatment: Treatment/Needle Set 1, Left Side: Points: Yin Gaytan, motor line 3 points bilaterally on the scalp, L: SJ3, LI3, LI4, R: divina points on the hip 15 minutes face to face with patient for set 1 Treatment/Needle Set 2, Left Side: Points: R: UB24, UB25, UB26, UB27, Xi Dinh, GB34, GB37, GB39, UB60, SP10, ST36 10 minutes face to face with patient for set 2 Calcium were retained for 30 minutes # of needles inserted: 31 # of needles withdrawn: 31 Adjunct techniques used: TDP Infrared Heat Lamp- Applied to Rt. Hip and right knee Patient tolerated the procedure well. UNIVERSAL PROTOCOL / SAFETY CHECKLIST Procedure to be Performed: Acupuncture Sign In: A Moment of CARE was completed. Personnel directly involved with the procedure wore the appropriate PPE (Personal Protective Equipment). Patient/Surrogate Stated/Verified: PATIENT VERIFIED(optional for EMERGENT procedures): Patient name, Date of , Relevant allergies, and The intended procedure Time Out Communication: Intended patient and procedure match the source documents. Consent documented and matches the intended procedure. Sign Out: SIGN OUT (optional for EMERGENT procedures): All instruments, equipment, possible retained foreign bodies accounted for. Trenton Hanson Provider Name: Trenton Hanson 25 Total minutes face to face time spent with patient Acupuncture and [place] herbal therapy are not a substitute for conventional medical diagnosis and treatment. Patient agrees that either: 1. A diagnostic exam has been performed by a physician or chiropractor within the last six months regarding the condition for which they are seeking acupuncture treatment. or 2. If no diagnostic exam by a physician or chiropractor has been done within the last six months regarding the condition for which patient is seeking treatment, the Processing Analyst, per [place] Law, recommends that this diagnostic exam be performed. 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 - TherBiotic Complete 120 Ct. (Klaire/Prothera) Take 1 capsule by mouth once daily. - itraconazole 0.5 % (CPD) 1-2 s (more content not included)... 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 - TherBiotic Complete 120 Ct[address] (Klaire/Prothera) Take 1 capsule by mouth once daily. - itraconazole 0.5 % (CPD) 1-2 sprays to each nostril twice daily - Fish Oil-[place]-3 Fatty Acids 300-1,000 mg cap Take by mouth. - Meriva-SR (Monae) decrease inflammation/pain/gut healing Take 1-2 capsules two times daily ----- [facility] No Panel InformationOrdered By: Medhat Guadarrama on 11-22-2023 Free Triiodothyronine (T3) pg/dL 2.1 pg/mL 2.18-3.98 [facility] Serum or plasma thyroid stim ulating hormone (TSH) measurement (units/volume)Ordered By: Medhat Guadarrama on 11-22-2023 TSH Qn 2.59 uIU/mL 0.358-3.74 [facility] Thin prep Papanicolaou smear with manual screeningOrdered By: Medhat Guadarrama on 11-22-2023 Thin prep Papanicolaou smear with manual screening 1.36 ng/dL 0.76-1.46 [facility] CNTHERAPYon 11-20-2023 CNTHERAPY OT/PT/Speech [facility] ([facility] ----- WALDEMAR HUDSON ([id number]) 1955 F Date Time Provider Department 11/20/23 3:45 PM NATHAN MADRIGAL [facility] Date Time Provider Department Center 11/20/2023 3:45 PM [id number], CYNTHIA*[facility] M Reason for Visit: Physical Therapy [503] 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 - TherBiotic Complete 120 Ct[address] (Klaire/Prothera) Take 1 capsule by mouth once daily. - itraconazole 0.5 % (CPD) 1-2 sprays to each nostril twice daily - Fish Oil-[place]-3 Fatty Acids 300-1,000 mg cap Take by mouth. 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 - TherBiotic Complete 120 Ct[address] (Klaire/Prothera) Take 1 capsule by mouth once daily. - itraconazole 0.5 % (CPD) 1-2 sprays to each nostril twice daily - Fish Oil-[place]-3 Fatty Acids 300-1,000 mg cap Take by mouth. 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 - TherBiotic Complete 120 Ct[address] (Klaire/Prothera) Take 1 capsule by mouth once daily. - itraconazole 0.5 % (CPD) 1-2 sprays to each nostril twice daily - Fish Oil-[place]-3 Fatty Acids 300-1,000 mg cap Take by mouth. - Meriva-SR (Monae) decrease inflammation/pain/gut healing Take 1-2 capsules two times daily ----- Normal [facility] CNOVon 11-12-2023 CNOV Office Visit ([facility] ) ----- WALDEMAR HUDSON ([id number]) 1955 F Date Time Provider Department 11/12/23 1:30 PM ROCIO ALEJANDRA During your visit today, we recorded the following information about you: Rhea Almanza 11/12/2023 2:17 PM Signed Waldemar Hudson a 67 year old female presents to the acupuncture clinic on 11/12/23 for an initial consultation. Patient identity confirmed by name and : Yes Chief Complaint: Primary lateral disease. SUBJECTIVE Patient presents here with her . She is in wheelchair. Has slurred speech. Notes fatigue and lack of balance since 2012. Has knees, shoulders, ankles and feet pain. It is intermittent sharp, stiff and burning pain. 4/10 pain at presentation today. Has weakness in hands limited my ability to do much physical activity. Has history of [place] disease, mold and thyroid cancer. Has hypothyroidism. Tried PT, dry needling, Chiro, massage, Meds with some benefits. The patient's history is well detailed in the EMR. Current view: Showing all answers [facility] Promis Cat V2.0-Physical Function-28 Days Question 11/08/2023 9:10 PM EDT - Filed by Patient 10/11/2023 12:35 PM EDT - Filed by Patient 09/13/2023 2:44 PM EDT - Filed by Patient PROMIS Physical Function T-Score (range: 10 - 90) 23 (severe dysfunction) 23 (severe dysfunction) 23 (severe dysfunction) PROMIS Physical Function Percentile (range: 0 - 100) 0 0 0 [facility] Mychart Additional Demo Question 11/09/2023 7:52 PM EDT - Filed by Patient Is this visit related to an accident, other than Workers' Compensation? No Is this visit related to Workers' Compensation? No Do you need an retanner? No [facility] Promis Cat V1.0 - Fatigue-28 Days Question 11/09/2023 7:53 PM EDT - Filed by Patient How often did you have to push yourself to get things done because of your fatigue? Always How run-down did you feel on average? Very much How fatigued were you on average? Very much What was the level of your fatigue on most days? Very severe How often did your fatigue make it difficult to make decisions? Sometimes PROMIS Fatigue T-Score (range: 10 - 90) 74 (severe) PROMIS Fatigue Percentile (range: 0 - 100) 1 [facility] Promis Cat V1.0-Anxiety 28 Days Question 11/09/2023 7:54 PM EDT - Filed by Patient I felt uneasy Never I felt tense Never I felt worried Sometimes I felt nervous Rarely I felt anxious Never PROMIS Anxiety T-Score (range: 10 - 90) 46 (within normal limits) PROMIS Anxiety Percentile (range: 0 - 100) 66 [facility] Neuro-Qol Cat V2.0 Cognitive Function-28 Days Question 11/09/2023 7:59 PM EDT - Filed by Patient In the past 7 days I reacted slowly to things that were said or done. Never In the past 7 days I had trouble keeping track of what I was doing if I was interrupted. Never In the past 7 days I had trouble concentrating. Never In the past 7 days I had to read something several times to understand it. Never In the past 7 days words I wanted to use seemed to be on the tip of my tongue. Sometimes (2-3 times) In the past 7 days I had difficulty doing more than one thing at a time. Never In the past 7 days I made simple mistakes more easily. Never In the past 7 days I had trouble thinking clearly. Rarely (once) Neuro-QoL - Cognitive Function T-Score (range: 10 - 90) 56 (within normal limits) Neuro-QoL Cognitive Function Percentile (range: 0 - 100) 73 [facility] Promis Cat V1.0-Satisfaction With Social Roles-28 Days Question 11/09/2023 8:00 PM EDT - Filed by Patient I am satisfied with my ability to perform my daily routines. Not at all I am satisfied with my ability to work (include work at home). Somewhat I am satisfied with my ability to do regular personal and household responsibilities. Somewhat I am satisfied with how much work I can do (include work at home). Somewhat PROMIS - Satisfaction with Participation in Social Roles T-Score (range: 10 - 90) 42 (Average) PROMIS Social Role Satisfaction Percentile (range: 0 - 100) 21 [facility] Promis Cat V1.1-Pain Interference-28 Days Question 11/09/2023 8:00 PM EDT - Filed by Patient 09/13/2023 2:45 PM EDT - Filed by Patient PROMIS Pain Interference T-Score (range: 10 - 90) (range: 10 - 90) 68 (moderate) 65 (moderate) PROMIS Pain Interference Percentile (range: 0 - 100) 4 7 [facility] Promis Cat V1.0-Sleep Disturbance-28 Days Question 11/09/2023 8:04 PM EDT - Filed by Patient I had trouble sleeping. Always My sleep quality was... Fair I had a problem with my sleep. Quite a bit I tried hard to get to sleep. A little bit I was satisfied with my sleep. A little bit PROMIS Sleep Disturbance T-Score (range: 10 - 90) 60 (mild) PROMIS Sleep Disturbance Percentile (range: 0 - 100) 16 [facility] Cil Acupuncture Intake Form Question 11/10/2023 9:23 AM EDT - Filed by Patient Are you presently working? No Are you currently being treated with blood thinning medications? No Are you currently being (more content not included)... 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 - TherBiotic Complete 120 Ct[address] (Klaire/Prothera) Take 1 capsule by mouth once daily. - itraconazole 0.5 % (CPD) 1-2 sprays to each nostril twice daily - Fish Oil-[place]-3 Fatty Acids 300-1,000 mg cap Take by mouth. 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 - TherBiotic Complete 120 Ct[address] (Klaire/Prothera) Take 1 capsule by mouth once daily. - itraconazole 0.5 % (CPD) 1-2 sprays to each nostril twice daily - Fish Oil-[place]-3 Fatty Acids 300-1,000 mg cap Take by mouth. 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 - TherBiotic Complete 120 Ct[address] (Klaire/Prothera) Take 1 capsule by mouth once daily. - itraconazole 0.5 % (CPD) 1-2 sprays to each nostril twice daily - Fish Oil-[place]-3 Fatty Acids 300-1,000 mg cap Take by mouth. 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 - Magnesium 200 mg tab Take 1 tablet by mouth once daily. - baclofen 10 mg tablet Take 0.5 tablets by mouth three times a day for 14 days, THEN 1 tablet three times a day. - levothyroxine (SYNTHROID) 112 mcg tablet - NUEDEXTA 20-10 mg capsule Take 1 capsule by mouth two times a day. - nystatin (MYCOSTATIN, NILSTAT) 500,000 unit tab Take 2 tablets by mouth three times a day with meals. - TherBiotic Complete 120 Ct. (Klaire/Prothera) Take 1 capsule by mouth once daily. - itraconazole 0.5 % (CPD) 1-2 sprays to each nostril twice daily - Fish Oil-[place]-3 Fatty Acids 300-1,000 mg cap Take by mouth. 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 - TherBiotic Complete 120 Ct[address] (Klaire/Prothera) Take 1 capsule by mouth once daily. - itraconazole 0.5 % (CPD) 1-2 sprays to each nostril twice daily - Fish Oil-[place]-3 Fatty Acids 300-1,000 mg cap Take by mouth. 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 - TherBiotic Complete [address] Ct[address] (Klaire/Prothera) Take 1 capsule by mouth once daily. - itraconazole 0.5 % (CPD) 1-2 sprays to each nostril twice daily - Fish Oil-[place]-3 Fatty Acids 300-1,000 mg cap Take by mouth. - Meriva-SR (Monae) decrease inflammation/pain/gut healing Take 1-2 capsules two times daily ----- [facility] Aldolase ser/plasOrdered By: Medhat Guadarrama on 10-17-2023 Aldolase [Catalytic activity/Vol] 3.6 mU/mL 3.3-10.3 [facility] Comment on above: Performed at: [address] [id number] Director: Petey Ibarra PhD, Phone: [phone] Erythrocyte sedimentation ra teOrdered By: Medhat Guadarrama on 10-17-2023 ESR (Bld) [Velocity] 3 mm/h 0-30 [facility] Laboratory - Chemistry and C hemistry - challengeOrdered By: Medhat Guadarrama on 10-17-2023 CK [Catalytic activity/Vol] 123 U/L 26-192 [facility] No Panel InformationOrdered By: Medhat Guadarrama on 10-17-2023 Free Triiodothyronine (T3) pg/dL 1.6 pg/mL 2.18-3.98 [facility] Parathyroid Hormone (Intact) 64.3 pg/mL 18.4-80.1 [facility] Thyroglobulin Antibody < 1.0 IU/mL 0.0-0.9 [facility] Comment on above: Thyroglobulin Antibo dy measured by Green[employer] TechnologiesMethodologyIt should be noted that the presence of thyroglobulinantibodies may not be pathogenic nor diagnostic, especiallyat very low levels. The assay telesales specialist has found thatfour percent of individuals without evidence of thyroiddisease or autoimmunity will have positive TgAb levels upto 4 IU/mL. Thyroglobulin Level < 0.1 ng/mL 1.5-38.5 [facility] Comment on above: According to the [place] [facility] Academy of Clinical Biochemistry,the reference interval for Thyroglobulin (TG) should berelated to euthyroid patients and not for patients whounderwent thyroidectomy. TG reference intervals for thesepatients depend on the residual mass of the thyroid tissueleft after surgery. Establishing a post-operative baselineis recommended. The assay limit of quantitation is 0.1ng/mLThyroglobulin measured by [facility] [place] ImmunometricAssayPerformed at: - [facility] [id number] Director: Petey Ibarra PhD, Phone: [phone] Vitamin D 25-Hydroxy 30.6 ng/mL [facility] Comment on above: Vitamin D 25(OH) Sta tus Range Deficiency <20 ng/mL (50nmol/L) Insufficiency 20 - 30 ng/mL (50 - 75 nmol/L) Sufficiency 30 - 100 ng/mL (75 - 250 nmol/L) Toxicity >100 ng/mL (>250 nmol/L) Serum or plasma thyroid stim ulating hormone (TSH) measurement (units/volume)Ordered By: Keren Dumont on 10-17-2023 TSH Qn 13.40 uIU/mL 0.358-3.74 [facility] Thin prep Papanicolaou smear with manual screeningOrdered By: Keren Dumont on 10-17-2023 Thin prep Papanicolaou smear with manual screening 1.07 ng/dL 0.76-1.46 [facility] CNTHERAPYon 10-16-2023 CNTHERAPY OT/PT/Speech Visit ([facility]) ----- WALDEMAR HUDSON ([id number]) 1955 F Date Time Provider Department 10/16/23 3:30 PM DAJA GOMEZ [facility] Date Time Provider Department Center 10/16/2023 3:30 PM [id number], AMBER M [facility] M Reason for Visit: Physical Therapy [503] 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 - TherBiotic Complete 120 Ct[address] (Klaire/Prothera) Take 1 capsule by mouth once daily. - itraconazole 0.5 % (CPD) 1-2 sprays to each nostril twice daily - Fish Oil-[place]-3 Fatty Acids 300-1,000 mg cap Take by mouth. 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 - TherBiotic Complete 120 Ct[address] (Klaire/Prothera) Take 1 capsule by mouth once daily. - fluconazole (DIFLUCAN) 150 mg tablet Take 1 tablet by mouth two times a week. Can take up to 2 pills week one and two then one pill a week until done. - itraconazole 0.5 % (CPD) 1-2 sprays to each nostril twice daily - Fish Oil-[place]-3 Fatty Acids 300-1,000 mg cap Take by mouth. - Meriva-SR (Monae) decrease inflammation/pain/gut healing Take 1-2 capsules two times daily ----- Truck Despatcher: Therapy (PT/OT/Speech/Resp) ID: [id number] 10/12/2023 3:32 PM Author: DAJA GOMEZ Signed by DAJA GOMEZ EXPERIENCE PLANNING STRATEGIST on 10/12/2023 at 3:32 PM Document text: Program_ID:[id number] Access Code: [email or web address] URL: [email or web address] Date: 10-12-2023 Prepared By: DAJA GOMEZ Program Notes Exercises - Seated Isometric Hip Adduction with Ball - 1 x daily - 7 x weekly - 2 sets - 10 reps - Seated Hip Abduction with Resistance - 1 x daily - 7 x weekly - 2 sets - 10 reps - Seated March with Resistance - 1 x daily - 7 x weekly - 2 sets - 10 reps [facility] THERAPY NTon 10-12-2023 THERAPY NT HNO ID: [id number] Author: DAJA GOMEZ PTA Service: ? Author Type: Clarity Specialists Type: Therapy (PT/OT/Speech/Resp) Filed: 10/12/2023 15:32 Note Text: Program_ID:[id number] Access Code: [email or web address] URL: [email or web address] Date: 10-12-2023 Prepared By: DAJA GOMEZ Program Notes Exercises - Seated Isometric Hip Adduction with Ball - 1 x daily - 7 x weekly - 2 sets - 10 reps - Seated Hip Abduction with Resistance - 1 x daily - 7 x weekly - 2 sets - 10 reps - Seated March with Resistance - 1 x daily - 7 x weekly - 2 sets - 10 reps [facility] CNTHERAPYon 10-09-2023 CNTHERAPY OT/PT/Speech Visit ([facility]) ----- JAXWALDEMAR Khalil ([id number]) 1955 F Date Time Provider Department 10/09/23 3:30 PM DAJA GOMEZ Date Time Provider Department Center 10/09/2023 3:30 PM [id number], AMBER M [facility] M Reason for Visit: Physical Therapy [503] 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 - TherBiotic Complete 120 Ct[address] (Klaire/Prothera) Take 1 capsule by mouth once daily. - fluconazole (DIFLUCAN) 150 mg tablet Take 1 tablet by mouth two times a week. Can take up to 2 pills week one and two then one pill a week until done. - itraconazole 0.5 % (CPD) 1-2 sprays to each nostril twice daily - Fish Oil-[place]-3 Fatty Acids 300-1,000 mg cap Take by mouth. - Meriva-SR (Monae) decrease inflammation/pain/gut healing Take 1-2 capsules two times daily ----- Truck Despatcher: Therapy (PT/OT/Speech/Resp) ID: [id number] 10/09/2023 4:28 PM Author: DAJA GOMEZ Signed by DAJA GOMEZ EXPERIENCE PLANNING STRATEGIST on 10/09/2023 at 4:28 PM Document text: Program_ID:[id number] Access Code: [email or web address] URL: [email or web address] Date: 10-09-2023 Prepared By: DAJA GOMEZ Program Notes Exercises - Supine Heel Slide - 1 x daily - 7 x weekly - 2 sets - 10 reps - Supine Knee Extension Strengthening - 1 x daily - 7 x weekly - 2 sets - 10 reps - HIp Internal rotation stretch - 1 x daily - 7 x weekly - 2 sets - 10 reps - Seated Long Arc Quad - 1 x daily - 7 x weekly - 2 sets - 10 reps - Seated Knee Flexion Extension AROM - 1 x daily - 7 x weekly - 2 sets - 10 reps [facility] THERAPY NTon 10-09-2023 THERAPY NT HNO ID: [id number] Author: DAJA GOMEZ PTA Service: ? Author Type: Clarity Specialists Type: Therapy (PT/OT/Speech/Resp) Filed: 10/09/2023 16:28 Note Text: Program_ID:[id number] Access Code: [email or web address] URL: [email or web address] Date: 10-09-2023 Prepared By: DAJA GOMEZ Program Notes Exercises - Supine Heel Slide - 1 x daily - 7 x weekly - 2 sets - 10 reps - Supine Knee Extension Strengthening - 1 x daily - 7 x weekly - 2 sets - 10 reps - HIp Internal rotation stretch - 1 x daily - 7 x weekly - 2 sets - 10 reps - Seated Long Arc Quad - 1 x daily - 7 x weekly - 2 sets - 10 reps - Seated Knee Flexion Extension AROM - 1 x daily - 7 x weekly - 2 sets - 10 reps Normal [facility] CNTHERAPYon 10-05-2023 CNTHERAPY OT/PT/Speech Visit ([facility]) ----- WALDEMAR HUDSON ([id number]) 1955 F Date Time Provider Department 10/05/23 3:30 PM DAJA GOMEZ [facility] Date Time Provider Department Center 10/05/2023 3:30 PM [id number], AMBER M [facility] Health [facility] M Reason for Visit: Physical Therapy [503] 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 - TherBiotic Complete 120 Ct[address] (Klaire/Prothera) Take 1 capsule by mouth once daily. - fluconazole (DIFLUCAN) 150 mg tablet Take 1 tablet by mouth two times a week. Can take up to 2 pills week one and two then one pill a week until done. - itraconazole 0.5 % (CPD) 1-2 sprays to each nostril twice daily - Fish Oil-[place]-3 Fatty Acids 300-1,000 mg cap Take by mouth. 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 - TherBiotic Complete 120 Ct[address] (Klaire/Prothera) Take 1 capsule by mouth once daily. - fluconazole (DIFLUCAN) 150 mg tablet Take 1 tablet by mouth two times a week. Can take up to 2 pills week one and two then one pill a week until done. - itraconazole 0.5 % (CPD) 1-2 sprays to each nostril twice daily - Fish Oil-[place]-3 Fatty Acids 300-1,000 mg cap Take by mouth. - Meriva-SR (Monae) decrease inflammation/pain/gut healing Take 1-2 capsules two times daily ----- Normal [facility] Absolute lymphocyte countOrd ered By: Keren Dumont on 06-27-2023 Lymphocytes Auto (Unsp spec) [#/Vol] 1.87 10*3/uL 0.83-4.51 [facility] Basophil percentageOrdered B y: Keren Dumont on 06-27-2023 Basophils/100 WBC (Bld) 1.1 % 0-1 [facility] Bilirubin [Mass/Vol] 0.70 mg/dL 0.20-1.00 [facility] Comment on above: For patients on eltr ombopag therapy, use of Dimension [place] TBIL is not recommended. Chloride [Moles/Vol] 106 mmol/L 98-107 [facility] Cholesterol [Mass/Vol] 256 mg/dL <200 [facility] Comment on above: <200 mg/dL Desirable 200-240 mg/dL Borderline >240 mg/dL High Risk Eosinophils/100 WBC (Bld) 2.2 % 0-5 [facility] Glucose [Mass/Vol] 96 mg/dL 74-106 [facility] Neutrophils (Bld) [#/Vol] 2.2 10*3/uL 2.0-7.7 [facility] Neutrophils/100 WBC (Bld) 47.9 % 47-70 [facility] Potassium [Moles/Vol] 4.3 mmol/L 3.5-5.1 [facility] Protein [Mass/Vol] 6.8 g/dL 6.4-8.2 [facility] Sodium [Moles/Vol] 138 mmol/L 136-145 [facility] Triglyceride [Mass/Vol] 92 mg/dL <199 [facility] Comment on above: The drugs N-Acetylcy steine and Metamizole may falsely depress this assay.Serum Triglycerides Reference Interval Normal <150 mg/dL Borderline high 150 - 199 mg/dL High 200 - 499 mg/dL Very High > or = 500 mg/dL WBC (Bld) [#/Vol] 4.5 10*3/uL 4.4-11.0 [facility] Blood erythrocytes count (nu mber/volume)Ordered By: Keren Dumont on 06-27-2023 RBC (Bld) [#/Vol] 4.89 10*6/uL 4.2-5.4 [facility] Blood hemoglobin measurement (mass/volume)Ordered By: Keren Dumont on 06-27-2023 Hemoglobin (Bld) [Mass/Vol] 15.0 g/dL 12.0-15.0 [facility] Blood lymphocytes/100 leukoc ytesOrdered By: Keren Dumont on 06-27-2023 Lymphocytes/100 WBC (Bld) 41.5 % 19-41 [facility] Blood monocytes/100 leukocyt esOrdered By: Keren Dumont on 06-27-2023 Monocytes/100 WBC (Bld) 7.1 % 0-10 [facility] Blood platelet mean volumeOr dered By: Keren Dumont on 06-27-2023 Platelet mean volume (Bld) [Entitic vol] 11.4 fL 6.2-12.0 [facility] Determination of erythrocyte mean corpuscular volume (MCV)Ordered By: Keren Dumont on 06-27-2023 MCV (RBC) [Entitic vol] 97.5 fL 81-99 [facility] Hematocrit Auto (Bld) [Volum e fraction]Ordered By: Keren Dumont on 06-27-2023 Hematocrit (Bld) [Volume fraction] 47.7 % 37-47 [facility] Laboratory - Chemistry and C hemistry - challengeOrdered By: Arlette Briseno on 06-27-2023 Albumin [Mass/Vol] 4.2 g/dL 2.9-4.4 [facility] Laboratory - Chemistry and C hemistry - challengeOrdered By: Keren Dumont on 06-27-2023 ALP [Catalytic activity/Vol] 91 U/L 45-117 [facility] ALT [Catalytic activity/Vol] 31 U/L 13-56 [facility] CO2 [Moles/Vol] 28.0 mmol/L 21.0-32.0 [facility] Globulin (S) [Mass/Vol] 3.1 g/dL 2.2-4.2 [facility] Urea nitrogen/Creatinine [Mass ratio] 22.6 mg/mg 10-20 [facility] Laboratory - Hematology and Cell countsOrdered By: Keren Dumont on 06-27-2023 Erythrocyte distribution width (RBC) [Entitic vol] 50.3 fL 35.1-43.9 [facility] Erythrocyte distribution width (RBC) [Ratio] 13.9 % 11.6-14.6 [facility] Immature granulocytes/100 WBC (Bld) 0.200 % 0.0-0.9 [facility] Comment on above: IG% - Immature Granu locytes (promyelocytes, myelocytes and metamyelocytes) > 1% indicates that a LEFT SHIFT is Present. MCH (RBC) [Entitic mass] 30.7 pg 27.0-32.0 [facility] Nucleated RBC/100 WBC (Bld) [Ratio] 0 % 0-5 [facility] MCHC Auto (RBC) [Mass/Vol]Or dered By: Keren Dumont on 06-27-2023 MCHC (RBC) [Mass/Vol] 31.4 g/dL 32-36 [facility] Mitotic spindle apparatus Ab [Titer] in Serum or PlasmaOrdered By: Arlette Briseno on 06-27-2023 Mitotic spindle apparatus Ab [Titer] Not Reportable [facility] No Panel InformationOrdered By: Arlette Briseno on 06-27-2023 Addendum Document Comment . [facility] Comment on above: The SPE pattern appe ars unremarkable. Evidence ofmonoclonal protein is not apparent. Azuay-1-Ceuayixbq 0.1 g/dL 0.0-0.4 [facility] Yoasu-6-Ltvqvwcmu 0.5 g/dL 0.4-1.0 [facility] IMAN Nuclear Membrane Pattern Not Reportable [facility] Gamma Globulins 0.4 g/dL 0.4-1.8 [facility] Hepatitis A Antibody Total Positive Negative [facility] Comment on above: Comment: The HAV tot al antibody assay detects both IgG andIgM but does not differentiate between them. A negativeresult suggests susceptibility to infection. A positiveresult could be due to vaccination, previously resolvedinfection or active infection. Testing for HAV IgM shouldbe performed if active HAV infection is suspected. Labcorpoffers profiles that will automatically reflex positive HAVtotal antibody results to IgM (e.g., panel #[id number] HAVAntibody w/ Rfx).Performed at: [facility] [address] [id number] Director: Petey Ibarra PhD, Phone: [phone] Hepatitis A IgM Antibody Negative Negative [facility] Hepatitis B Core IgM Antibody Negative Negative [facility] Hepatitis C Antibody (EIA) Non-Reactive Non Reactive [facility] Hepatitis C Antibody Comment Comment . [facility] Comment on above: Not infected with HC V unless early or acute infection issuspected (which may be delayed in an immunocompromisedindividual), or other evidence exists to indicate HCVinfection. No Panel InformationOrdered By: Keren Dumont on 06-27-2023 Estimated GFR (MDRD) Amer 113 mL/min >60 [facility] Comment on above: GFR Calc Estimated GFR (MDRD) Non-Af Amer 94 mL/min >60 [facility] Comment on above: Non- GFR Calc Platelets bldOrdered By: Grant Dumont on 06-27-2023 Platelets (Bld) [#/Vol] 188 10*3/uL 150-450 [facility] Protein Fractions Elph [Inte rp]Ordered By: Arlette Briseno on 06-27-2023 Protein Fractions [Interp] Comment . [facility] Comment on above: Protein electrophore sis scan will follow via computer,mail, or forestry contractor delivery. Serum albumin to globulin ra jm by protein electrophoresisOrdered By: Arlette Briseno on 06-27-2023 Albumin/Globulin Elph [Mass ratio] 2.2 0.7-1.7 [facility] Serum globulin measurement ( mass/volume)Ordered By: Arlette Briseno on 06-27-2023 Globulin (S) [Mass/Vol] 1.9 g/dL 2.2-3.9 [facility] Serum hepatitis B virus surf agustin antibody IgG detectionOrdered By: Arlette Briseno on 06-27-2023 HBV surface IgG Ql (S) Non-Reactive [facility] Comment on above: Non Reactive: Incons istent with immunity less than <10 mIU/mL Reactive: Consistent with immunity greater than or equal to 10 mIU/mL Serum midbody antibody titer by immunofluorescenceOrdered By: Arlette Briseno on 06-27-2023 Midbody Ab IF (S) [Titer] Not Reportable [facility] Serum multiple nuclear dot p attern antinuclear IgG antibody (IMAN) titer by immunofluoOrdered By: Arlette Briseno on 06-27-2023 Multiple nuclear dots nuclear IgG pattern IF (S) [Titer] Not Reportable [facility] Serum neuronal nuclear antib panfilo detection by immunofluorescenceOrdered By: Arlette Briseno on 06-27-2023 Neuronal nuclear Ab IF Ql (S) Not Reportable [facility] Serum nuclear antibody patte rn homogenous titer by immunofluorescenceOrdered By: Arlette Briseno on 06-27-2023 Homogenous nuclear Ab pattern IF (S) [Titer] Not Reportable [facility] Serum nuclear antibody titer by immunofluorescenceOrdered By: Arlette Briseno on 06-27-2023 Nuclear Ab IF (S) [Titer] Negative . [facility] Comment on above: Negative <1:80 Semaj mueller 1:80 Positive >1:80ICAP nomenclature: AC-0For more information about Hep-2 cell patterns useANApatterns.org, the official website for theInternational Consensus on Antinuclear Antibody (IMAN)Patterns (ICAP).Performed at: [facility] [employer] [id number] Director: Petey Ibarra PhD, Phone: [phone] Serum or plasma albumin lilliana urement (mass/volume)Ordered By: Keren Dumont on 06-27-2023 Albumin [Mass/Vol] 3.7 g/dL 3.2-5.0 [facility] Serum or plasma albumin/glob ulin mass ratioOrdered By: Keren Dumont on 06-27-2023 Albumin/Globulin [Mass ratio] 1.2 {ratio} 0.9-2.4 [facility] Serum or plasma beta globuli n measurement by electrophoresis (mass/volume)Ordered By: Arlette Briseno on 06-27-2023 Beta globulin Elph [Mass/Vol] 0.9 g/dL 0.7-1.3 [facility] Serum or plasma calcium lilliana urement (mass/volume)Ordered By: Keren Dumont on 06-27-2023 Calcium [Mass/Vol] 8.9 mg/dL 8.5-10.1 [facility] Serum or plasma cholesterol in HDL measurement (mass/volume)Ordered By: Keren Dumont on 06-27-2023 Cholesterol in HDL [Mass/Vol] 71 mg/dL >40 [facility] Comment on above: The drugs N-Acetylcy steine and Metamizole may falsely depress this assay. Reference Range HDL <40 mg/dL Low HDL Cholesterol HDL >or= 60 mg/dL High HDL Cholesterol Serum or plasma cholesterol in VLDL measurement (mass/volume)Ordered By: Keren Dumont on 06-27-2023 Cholesterol in VLDL [Mass/Vol] 18 mg/dL 5-40 [facility] Serum or plasma creatinine m easurement (mass/volume)Ordered By: Keren Dumont on 06-27-2023 Creatinine [Mass/Vol] 0.66 mg/dL 0.55-1.02 [facility] Comment on above: The validity of the calculated GFR & GFRAA in patients over 70 years has not been determined. Clinical correlation is essential. Serum or plasma hepatitis B virus surface antigen detection by immunoassayOrdered By: Arlette Briseno on 06-27-2023 HBV surface Ag IA Ql Negative Negative [facility] Serum or plasma low density lipoprotein (LDL) cholesterol measurement (mass/volume)Ordered By: Keren Dumont on 06-27-2023 Cholesterol in LDL [Mass/Vol] 167 mg/dL 0-130 [facility] Serum or plasma protein mono clonal measurement by electrophoresis (mass/volume)Ordered By: Arlette Briseno on 06-27-2023 Protein.monoclonal Elph [Mass/Vol] Not Observed g/dL Not Observed [facility] Serum or plasma thyroperoxid ase antibody assay (units/volume)Ordered By: Arlette Briseno on 06-27-2023 TPO Ab Qn [IU]/mL 0-34 [facility] Serum or plasma urea nitroge n measurement (mass/volume)Ordered By: Keren Dumont on 06-27-2023 Urea nitrogen [Mass/Vol] 15 mg/dL 7-18 [facility] Serum proliferating cell nuc lear antigen (PCNA) antibody titer by immunofluorescenceOrdered By: Arlette Briseno on 06-27-2023 PCNA extractable nuclear Ab IF (S) [Titer] Not Reportable [facility] Serum speckled nuclear antib panfilo pattern titerOrdered By: Arlette Briseno on 06-27-2023 Speckled nuclear Ab pattern (S) [Titer] Not Reportable [facility] Thin prep Papanicolaou smear with manual screeningOrdered By: Arlette Briseno on 06-27-2023 Thin prep Papanicolaou smear with manual screening Not Reportable [facility] Thin prep Papanicolaou smear with manual screeningOrdered By: Keren Dumont on 06-27-2023 Thin prep Papanicolaou smear with manual screening 21 U/L 15-37 [facility] Thin prep Papanicolaou smear with manual screening 4 5-15 [facility] Total protein bloodOrdered B y: Arlette Briseno on 06-27-2023 Protein [Mass/Vol] 6.1 g/dL 6.0-8.5 [facility] Whole blood hemoglobin A1c/t otal hemoglobin ratio (mass fraction)Ordered By: Arlette Briseno on 06-27-2023 HbA1c (Bld) [Mass fraction] 5.2 % 3.8-5.6 [facility] Comment on above: Normal < 5.7 % Predi abetic 5.7 - 6.4 % Diabetic >or= 6.5 % Please note range changes. Laboratory - Chemistry and C hemistry - challengeOrdered By: Dr. Dumont on 02-19-2023 Free T4 [Mass/Vol] 0.95 ng/dL 0.76-1.46 [facility] No Panel InformationOrdered By: Dr. 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 TECHNIQUE: Multiplanar, multisequence magnetic resonance imaging of the brain was performed without intravenous contrast on a 3 Neyda magnet. COMPARISON: None FINDINGS: No abnormal areas of diffusion restriction to suggest acute infarct. No acute intracranial hemorrhage or extra-axial fluid collection. No mass, mass-effect, or midline shift. No abnormal foci of susceptibility artifact to suggest hemorrhage. Multiple periventricular and subcortical T2 FLAIR hyperintensities, non-specific, though likely representing sequelae of chronic microvascular disease. [place]-white matter differentiation is otherwise preserved. The ventricular system appears unremarkable. Major intracranial vascular flow voids are intact. Orbits are normal. Minimal paranasal sinus mucosal thickening. Trace mastoid effusions. Scalp and calvarium appear unremarkable. Partially visualized cervical spine appears unremarkable. IMPRESSION: No acute abnormality. Sequelae of chronic microvascular disease. Ivan Artis M.D. This report has been electronically signed and verified by the Radiologist whose name is printed above. / This report contains privileged and confidential information and is intended solely for the use of the individual or entity to which it is addressed. If you are not the intended recipient of this report, you are hereby notified that any copying, distribution, dissemination or action taken in relation to the contents of this report is strictly prohibited and may be unlawful. If you have received this report in error, please notify the sender immediately at [phone] and permanently delete the original report and destroy any copies or printouts. Normal [facility] Absolute lymphocyte counton 06-29-2022 Lymphocytes Auto (Unsp spec) [#/Vol] 2.46 10*3/uL 0.83-4.51 [facility] Work Phone: Basophil percentageon 2021 Basophils/100 WBC (Bld) 0.5 % 0-1 [facility] Work Phone: Bilirubin [Mass/Vol] 0.40 mg/dL 0.20-1.00 [facility] Work Phone: Comment on above: For patients on eltr ombopag therapy, use of Dimension [place] TBIL is not recommended. Chloride [Moles/Vol] 107 mmol/L 98-107 [facility] Work Phone: Cholesterol [Mass/Vol] 256 mg/dL <200 [facility] Work Phone: Comment on above: <200 mg/dL Desirable 200-240 mg/dL Borderline >240 mg/dL High Risk Eosinophils/100 WBC (Bld) 2.2 % 0-5 [facility] Work Phone: Glucose [Mass/Vol] 97 mg/dL 74-106 [facility] Work Phone: [phone] Neutrophils (Bld) [#/Vol] 2.9 10*3/uL 2.0-7.7 [facility] Work Phone: [phone] Neutrophils/100 WBC (Bld) 48.1 % 47-70 [facility] Work Phone: Potassium [Moles/Vol] 4.0 mmol/L 3.5-5.1 [facility] Work Phone: [phone] Protein [Mass/Vol] 7.0 g/dL 6.4-8.2 [facility] Work Phone: Sodium [Moles/Vol] 141 mmol/L 136-145 [facility] Work Phone: Triglyceride [Mass/Vol] 144 mg/dL <199 [facility] Work Phone: Comment on above: The drugs N-Acetylcy steine and Metamizole may falsely depress this assay.Serum Triglycerides Reference Interval Normal <150 mg/dL Borderline high 150 - 199 mg/dL High 200 - 499 mg/dL Very High > or = 500 mg/dL WBC (Bld) [#/Vol] 6.0 10*3/uL 4.4-11.0 [facility] Work Phone: Blood erythrocytes count (nu mber/volume)on 06-29-2022 RBC (Bld) [#/Vol] 4.66 10*6/uL 4.2-5.4 [facility] Work Phone: Blood hemoglobin measurement (mass/volume)on 06-29-2022 Hemoglobin (Bld) [Mass/Vol] 14.6 g/dL 12.0-15.0 [facility] Work Phone: Blood lymphocytes/100 leukoc yteson 06-29-2022 Lymphocytes/100 WBC (Bld) 40.9 % 19-41 [facility] Work Phone: Blood monocytes/100 leukocyt eson 06-29-2022 Monocytes/100 WBC (Bld) 8.1 % 0-10 [facility] Work Phone: Blood platelet mean volumeon 06-29-2022 Platelet mean volume (Bld) [Entitic vol] 10.7 fL 6.2-12.0 [facility] Work Phone: Determination of erythrocyte mean corpuscular volume (MCV)on 06-29-2022 MCV (RBC) [Entitic vol] 95.3 fL 81-99 [facility] Work Phone: Hematocrit Auto (Bld) [Volum e fraction]on 06-29-2022 Hematocrit (Bld) [Volume fraction] 44.4 % 37-47 [facility] Work Phone: Laboratory - Chemistry and C hemistry - challengeon 06-29-2022 ALP [Catalytic activity/Vol] 62 U/L 45-117 [facility] Work Phone: ALT [Catalytic activity/Vol] 27 U/L 13-56 [facility] Work Phone: CO2 [Moles/Vol] 30.0 mmol/L 21.0-32.0 [facility] Work Phone: Free T4 [Mass/Vol] 0.86 ng/dL 0.76-1.46 [facility] Work Phone: Globulin (S) [Mass/Vol] 3.2 g/dL 2.2-4.2 [facility] Work Phone: Urea nitrogen/Creatinine [Mass ratio] 29.6 mg/mg 10-20 [facility] Work Phone: Laboratory - Hematology and Cell countson 06-29-2022 Erythrocyte distribution width (RBC) [Entitic vol] 46.1 fL 35.1-43.9 [facility] Work Phone: Erythrocyte distribution width (RBC) [Ratio] 13.2 % 11.6-14.6 [facility] Work Phone: Immature granulocytes/100 WBC (Bld) 0.200 % 0.0-0.9 [facility] Work Phone: Comment on above: IG% - Immature Granu locytes (promyelocytes, myelocytes and metamyelocytes) > 1% indicates that a LEFT SHIFT is Present. MCH (RBC) [Entitic mass] 31.3 pg 27.0-32.0 [facility] Work Phone: Nucleated RBC/100 WBC (Bld) [Ratio] 0 % 0-5 [facility] Work Phone: MCHC Auto (RBC) [Mass/Vol]on 06-29-2022 MCHC (RBC) [Mass/Vol] 32.9 g/dL 32-36 [facility] Work Phone: No Panel Informationon 06-29 Estimated GFR (MDRD) Amer 111 mL/min >60 [facility] Work Phone: Comment on above: GFR Calc Estimated GFR (MDRD) Non-Af Amer 92 mL/min >60 [facility] Work Phone: Comment on above: Non- GFR Calc Thyroid Stimulating Hormone (TSH) 0.04 uIU/mL 0.358-3.74 [facility] Work Phone: Platelets bldon 06-29-2022 Platelets (Bld) [#/Vol] 201 10*3/uL 150-450 [facility] Work Phone: Serum or plasma albumin lilliana urement (mass/volume)on 06-29-2022 Albumin [Mass/Vol] 3.8 g/dL 3.2-5.0 [facility] Work Phone: Serum or plasma albumin/glob ulin mass ratioon 06-29-2022 Albumin/Globulin [Mass ratio] 1.2 {ratio} 0.9-2.4 [facility] Work Phone: Serum or plasma calcium lilliana urement (mass/volume)on 06-29-2022 Calcium [Mass/Vol] 9.5 mg/dL 8.5-10.1 [facility] Work Phone: Serum or plasma cholesterol in HDL measurement (mass/volume)on 06-29-2022 Cholesterol in HDL [Mass/Vol] 67 mg/dL >40 [facility] Work Phone: Comment on above: The drugs N-Acetylcy steine and Metamizole may falsely depress this assay. Reference Range HDL <40 mg/dL Low HDL Cholesterol HDL >or= 60 mg/dL High HDL Cholesterol Serum or plasma cholesterol in VLDL measurement (mass/volume)on 06-29-2022 Cholesterol in VLDL [Mass/Vol] 29 mg/dL 5-40 [facility] Work Phone: Serum or plasma creatinine m easurement (mass/volume)on 06-29-2022 Creatinine [Mass/Vol] 0.68 mg/dL 0.55-1.02 [facility] Work Phone: Comment on above: The validity of the calculated GFR & GFRAA in patients over 70 years has not been determined. Clinical correlation is essential. Serum or plasma low density lipoprotein (LDL) cholesterol measurement (mass/volume)on 06-29-2022 Cholesterol in LDL [Mass/Vol] 160 mg/dL 0-130 [facility] Work Phone: Serum or plasma urea nitroge n measurement (mass/volume)on 06-29-2022 Urea nitrogen [Mass/Vol] 20 mg/dL 7-18 [facility] Work Phone: Thin prep Papanicolaou smear with manual screeningon 10-27-2022 Thin prep Papanicolaou smear with manual screening 17 U/L 15-37 [facility] Work Phone: Thin prep Papanicolaou smear with manual screening 4 5-15 [facility] Work Phone: CBC and Differentialon 10-23 Abs Baso <0.03 Normal <0.11 [facility] Comment on above: Performed By: #### C MP, CBCDIF, HOMCYS #### [facility] Routine Lab [address] [phone] Abs Tift 0.38 k/uL Normal <0.87 [facility] Comment on above: Performed By: #### C MP, CBCDIF, HOMCYS #### [facility] Routine Lab [address] [phone] Abs Neut 3.06 k/uL Normal 1.45-7.50 [facility] Comment on above: Performed By: #### C MP, CBCDIF, HOMCYS #### [facility] Routine Lab [address] [phone] Absolute nRBC <0.01 Normal <0.01 [facility] Comment on above: Performed By: #### C MP, CBCDIF, HOMCYS #### [facility] Routine Lab [address] [phone] Basophils/100 WBC (Bld) 0.4 % Normal C [facility] Reference Lab Comment on above: Performed By: #### C MP, CBCDIF, HOMCYS #### [facility] Routine Lab [address] [place] [address] DTYPE ADIFF Normal [facility] Comment on above: Performed By: #### C MP, CBCDIF, HOMCYS #### [facility] Routine Lab [address] [phone] Eosinophils (Bld) [#/Vol] 0.08 10*3/uL Normal <0.46 [facility] Comment on above: Performed By: #### C MP, CBCDIF, HOMCYS #### [facility] Routine Lab [address] [place], [place] [address] Eosinophils/100 WBC (Bld) 1.5 % Normal [facility] Comment on above: Performed By: #### C MP, CBCDIF, HOMCYS #### [facility] Routine Lab [address] [place] [address] Erythrocyte distribution width (RBC) [Ratio] 12.8 % Normal 11.5-15.0 [facility] Comment on above: Performed By: #### C MP, CBCDIF, HOMCYS #### [facility] Routine Lab [address] [address] Hematocrit (Bld) [Volume fraction] 45.0 % Normal 36.0-46.0 [facility] Comment on above: Performed By: #### C MP, CBCDIF, HOMCYS #### [facility] Routine Lab [address] [address] Hemoglobin (Bld) [Mass/Vol] 13.7 g/dL Normal 11.5-15.5 [facility] Comment on above: Performed By: #### C MP, CBCDIF, HOMCYS #### [facility] Routine Lab [address] [place], [place] [address] Lymphocytes (Bld) [#/Vol] 1.69 10*3/uL Normal 1.00-4.00 [facility] Comment on above: Performed By: #### C MP, CBCDIF, HOMCYS #### [facility] Routine Lab [address] [place], [place] [address] Lymphocytes/100 WBC (Bld) 32.3 % Normal [facility] Comment on above: Performed By: #### C MP, CBCDIF, HOMCYS #### [facility] Routine Lab [address] [place] [address] MCH 29.6 pG Normal 26.0-34.0 [facility] Comment on above: Performed By: #### C MP, CBCDIF, HOMCYS #### [facility] Routine Lab [address] [place], [place] [address] MCHC (RBC) [Mass/Vol] 30.4 g/dL Low 30.5-36.0 [facility] Reference Lab Comment on above: Performed By: #### C MP, CBCDIF, HOMCYS #### [facility] Routine Lab [address] [place], [place] [address] MCV (RBC) [Entitic vol] 97.2 fL Normal 80.0-100.0 [facility] Reference Lab Comment on above: Performed By: #### C MP, CBCDIF, HOMCYS #### [facility] Routine Lab [address] [place], [place] [address] Monocytes/100 WBC (Bld) 7.3 % Normal [facility] Reference Lab Comment on above: Performed By: #### C MP, CBCDIF, HOMCYS #### [facility] Routine Lab [address] [place], [place] [address] Neutrophils/100 WBC (Bld) 58.5 % Normal [facility] Comment on above: Performed By: #### C MP, CBCDIF, HOMCYS #### [facility] Routine Lab [address] [place], [place] [address] NRBCs 0.0 /100 WBC Normal 0 [facility] Comment on above: Performed By: #### C MP, CBCDIF, HOMCYS #### [facility] Routine Lab [address] [place], [place] [address] Platelet mean volume (Bld) [Entitic vol] 10.8 fL Normal 9.0-12.7 [facility] Comment on above: Performed By: #### C MP, CBCDIF, HOMCYS #### [facility] Routine Lab [address] [place], [place] [address] Platelets (Bld) [#/Vol] 223 10*3/uL Normal 150-400 [facility] Comment on above: Performed By: #### C MP, CBCDIF, HOMCYS #### [facility] Routine Lab [address] [place], [place] [address] RBC (Bld) [#/Vol] 4.63 10*6/uL Normal 3.90-5.20 [facility] Reference Lab Comment on above: Performed By: #### C MP, CBCDIF, HOMCYS #### [facility] Routine Lab [address] [place], [place] [address] WBC (Bld) [#/Vol] 5.24 10*3/uL Normal 3.70-11.00 [facility] Reference Lab Comment on above: Performed By: #### C MP, CBCDIF, HOMCYS #### [facility] Routine Lab [address] [place], [place] [address] Comp Metabolic Panelon 10-23 Albumin [Mass/Vol] 4.3 g/dL Normal 3.9-4.9 [facility] Reference Lab Comment on above: Performed By: #### C MP, CBCDIF, HOMCYS #### [facility] Routine Lab [address] [place], [place] [address] ALP [Catalytic activity/Vol] 87 U/L Normal 34-123 [facility] Comment on above: Performed By: #### C MP, CBCDIF, HOMCYS #### [facility] Routine Lab [address] [place], [place] [address] ALT [Catalytic activity/Vol] 18 U/L Normal 7-38 [facility] Comment on above: Performed By: #### C MP, CBCDIF, HOMCYS #### [facility] Routine Lab [address] [place], [place] [address] Anion gap [Moles/Vol] 12 mmol/L Normal 9-18 [facility] Reference Lab Comment on above: Performed By: #### C MP, CBCDIF, HOMCYS #### [facility] Routine Lab [address] [place], [place] [address] AST [Catalytic activity/Vol] 24 U/L Normal 13-35 [facility] Comment on above: Performed By: #### C MP, CBCDIF, HOMCYS #### [facility] Routine Lab [address] [place], [place] [address] Bilirubin [Mass/Vol] 0.4 mg/dL Normal 0.2-1.3 [facility] Reference Lab Comment on above: Performed By: #### C MP, CBCDIF, HOMCYS #### [facility] Routine Lab [address] [place], [place] [address] Calcium [Mass/Vol] 10.1 mg/dL Normal 8.5-10.2 [facility] Reference Lab Comment on above: Performed By: #### C MP, CBCDIF, HOMCYS #### [facility] Routine Lab [address] [place], [place] [address] Chloride [Moles/Vol] 103 mmol/L Normal 97-105 [facility] Lab Comment on above: Performed By: #### C MP, CBCDIF, HOMCYS #### [facility] Routine Lab [address] [place], [place] [address] CO2 [Moles/Vol] 25 mmol/L Normal 22-30 [facility] Comment on above: Performed By: #### C MP, CBCDIF, HOMCYS #### [facility] Routine Lab [address] [place], [place] [address] Creatinine [Mass/Vol] 0.49 mg/dL Low 0.58-0.96 [facility] Reference Lab Comment on above: Performed By: #### C MP, CBCDIF, HOMCYS #### [facility] Routine Lab [address] [place], [place] [address] eGFR- Amer. >60 Normal [facility] Reference Lab Comment on above: Performed By: #### C MP, CBCDIF, HOMCYS #### [facility] Routine Lab [address] [place], [place] [address] eGFR-All Other Races >60 Normal [facility] Reference Lab Comment on above: Performed By: #### C MP, CBCDIF, HOMCYS #### [facility] Routine Lab [address] [place], [place] [address] Glucose [Mass/Vol] 89 mg/dL Normal 74-99 [facility] Reference Lab Comment on above: Performed By: #### C MP, CBCDIF, HOMCYS #### [facility] Routine Lab [address] [place], [place] [address] Potassium [Moles/Vol] 4.5 mmol/L Normal 3.7-5.1 [facility] Comment on above: Performed By: #### C MP, CBCDIF, HOMCYS #### [facility] Routine Lab [address] [place], [place] [address] Protein [Mass/Vol] 6.4 g/dL Normal 6.3-8.0 [facility] Reference Lab Comment on above: Performed By: #### C MP, CBCDIF, HOMCYS #### [facility] Routine Lab [address] [place], [place] [address] Sodium [Moles/Vol] 140 mmol/L Normal 136-144 [facility] Lab Comment on above: Performed By: #### C MP, CBCDIF, HOMCYS #### [facility] Routine Lab [address] [place], [place] [address] Urea nitrogen [Mass/Vol] 14 mg/dL Normal 7-21 [facility] Comment on above: Performed By: #### C MP, CBCDIF, HOMCYS #### [facility] Routine Lab [address] [place], [place] [address] Homocysteineon 10-23-2021 Homocysteine 8.0 umol/L Normal <15.1 [facility] Comment on above: Performed By: #### C MP, CBCDIF, HOMCYS #### [facility] Routine Lab [address] [place] [address] Hemoglobin A1con 08-24-2021 Glucose [Mass/Vol] 103 mg/dL Normal [facility] Reference Lab Comment on above: Performed By: #### T SH, 125VTD, B12, HBA1C, VITD #### [facility] Routine Lab [address] [place] [phone] HbA1c (Bld) [Mass fraction] 5.2 % Normal 4.3-5.6 [facility] Comment on above: Performed By: #### T SH, 125VTD, B12, HBA1C, VITD #### [facility] Routine Lab [address] [place] [phone] TSHon 08-24-2021 TSH Qn 0.055 m[IU]/L Low 0.270-4.20 0 [facility] Comment on above: Performed By: #### T SH, 125VTD, B12, HBA1C, VITD #### [facility] Routine Lab [address] [place] [phone] VitD, 1,25 Dihydroxyon 08-24 Vit D,1,25 DiOH 70.7 pg/mL Normal 19.9-79.3 [facility] Comment on above: Performed By: #### T SH, 125VTD, B12, HBA1C, VITD #### [facility] Routine Lab [address] [place] [phone] Vitamin Aon 08-24-2021 Vitamin A Normal 0.30-1.20 [facility] Comment on above: Result Comment: R [id number] Account Credited Performed By: #### T SH, 125VTD, B12, HBA1C, VITD #### [facility] Routine Lab [facility] [place] [address] Vitamin B12on 08-24-2021 Cobalamin (Vitamin B12) [Mass/Vol] 663 pg/mL Normal 232-1245 [facility] Comment on above: Performed By: #### T SH, 125VTD, B12, HBA1C, VITD #### [facility] Routine Lab [address] [place], [place] [address] Vitamin D 25 Hydroxyon 08-24 Vitamin D 25 Hydroxy 49.9 ng/mL Normal 31.0-80.0 [facility] Reference Lab Comment on above: Performed By: #### T SH, 125VTD, B12, HBA1C, VITD #### [facility] Routine Lab [address] [place], [place] [address] CBC and Differentialon 06-26 Abs Baso Normal <0.11 [facility] Comment on above: Result Comment: Unab le to assay. Specimen improperly collected/handled. ONLY RECEIVED PST TUBES, NEED LAV,[id number] SP Account Credited Performed By: #### T SH, CBCDIF, CMP, FERR, IRON, CYSTC #### [facility] Routine Lab [address] [place], [place] [address] Abs Eosin Normal <0.46 [facility] Comment on above: Result Comment: Unab le to assay. Specimen improperly collected/handled. ONLY RECEIVED PST TUBES, NEED LAV,[id number] SP Account Credited Performed By: #### T SH, CBCDIF, CMP, FERR, IRON, CYSTC #### [facility] Routine Lab [address] [place], [place] [address] Abs Lymph Normal 1.00-4.00 [facility] Comment on above: Result Comment: Unab le to assay. Specimen improperly collected/handled. ONLY RECEIVED PST TUBES, NEED LAV,[id number] SP Account Credited Performed By: #### T SH, CBCDIF, CMP, FERR, IRON, CYSTC #### [facility] Routine Lab [address] [place], [place] [address] Abs Tift Normal <0.87 [facility] Comment on above: Result Comment: Unab le to assay. Specimen improperly collected/handled. ONLY RECEIVED PST TUBES, NEED LAV,[id number] SP Account Credited Performed By: #### T SH, CBCDIF, CMP, FERR, IRON, CYSTC #### [facility] Routine Lab [address] [phone] Abs Neut Normal 1.45-7.50 [facility] Comment on above: Result Comment: Unab le to assay. Specimen improperly collected/handled. ONLY RECEIVED PST TUBES, NEED LAV,[id number] [id number] SP Account Credited Performed By: #### T SH, CBCDIF, CMP, FERR, IRON, CYSTC #### [facility] Routine Lab [address] [phone] Baso% Normal [facility] Comment on above: Result Comment: Unab le to assay. Specimen improperly collected/handled. ONLY RECEIVED PST TUBES, NEED LAV,[id number] [id number] SP Account Credited Performed By: #### T SH, CBCDIF, CMP, FERR, IRON, CYSTC #### [facility] Routine Lab [address] [phone] Comment Normal [facility] Reference Lab Comment on above: Result Comment: Unab le to assay. Specimen improperly collected/handled. ONLY RECEIVED PST TUBES, NEED LAV,[id number] 2229 SP Account Credited Performed By: #### T SH, CBCDIF, CMP, FERR, IRON, CYSTC #### [facility] Routine Lab [address] [phone] Eosin% Normal [facility] Reference Lab Comment on above: Result Comment: Unab le to assay. Specimen improperly collected/handled. ONLY RECEIVED PST TUBES, NEED LAV,[id number] 2229 SP Account Credited Performed By: #### T SH, CBCDIF, CMP, FERR, IRON, CYSTC #### [facility] Routine Lab [address] [phone] Hematocrit Normal 36.0-46.0 [facility] Reference Lab Comment on above: Result Comment: Unab le to assay. Specimen improperly collected/handled. ONLY RECEIVED PST TUBES, NEED LAV,[id number] 2229 SP Account Credited Performed By: #### T SH, CBCDIF, CMP, FERR, IRON, CYSTC #### [facility] Routine Lab [address] [phone] Hemoglobin Normal 11.5-15.5 [facility] Reference Lab Comment on above: Result Comment: Unab le to assay. Specimen improperly collected/handled. ONLY RECEIVED PST TUBES, NEED LAV,[id number] 2229 SP Account Credited Performed By: #### T SH, CBCDIF, CMP, FERR, IRON, CYSTC #### [facility] Routine Lab [address] [place] [phone] Lymph% Normal [facility] Reference Lab Comment on above: Result Comment: Unab le to assay. Specimen improperly collected/handled. ONLY RECEIVED PST TUBES, NEED LAV,[id number] 2229 SP Account Credited Performed By: #### T SH, CBCDIF, CMP, FERR, IRON, CYSTC #### [facility] Routine Lab [address] [place], [place] [phone] MCH Normal 26.0-34.0 [facility] Reference Lab Comment on above: Result Comment: Unab le to assay. Specimen improperly collected/handled. ONLY RECEIVED PST TUBES, NEED LAV,[id number] 2229 SP Account Credited Performed By: #### T SH, CBCDIF, CMP, FERR, IRON, CYSTC #### [facility] Routine Lab [address] [place] [phone] MCHC Normal 30.5-36.0 [facility] Reference Lab Comment on above: Result Comment: Unab le to assay. Specimen improperly collected/handled. ONLY RECEIVED PST TUBES, NEED LAV,[id number] 2229 SP Account Credited Performed By: #### T SH, CBCDIF, CMP, FERR, IRON, CYSTC #### [facility] Routine Lab [address] [place] [phone] MCV Normal 80.0-100.0 [facility] Reference Lab Comment on above: Result Comment: Unab le to assay. Specimen improperly collected/handled. ONLY RECEIVED PST TUBES, NEED LAV,[id number] 2229 SP Account Credited Performed By: #### T SH, CBCDIF, CMP, FERR, IRON, CYSTC #### [facility] Routine Lab [address] [place] [address] Tift% Normal [facility] Reference Lab Comment on above: Result Comment: Unab le to assay. Specimen improperly collected/handled. ONLY RECEIVED PST TUBES, NEED LAV,[id number] 2229 SP Account Credited Performed By: #### T SH, CBCDIF, CMP, FERR, IRON, CYSTC #### [facility] Routine Lab [address] [place] [phone] MPV Normal 9.0-12.7 [facility] Reference Lab Comment on above: Result Comment: Unab le to assay. Specimen improperly collected/handled. ONLY RECEIVED PST TUBES, NEED LAV,[id number] 2229 SP Account Credited Performed By: #### T SH, CBCDIF, CMP, FERR, IRON, CYSTC #### [facility] Routine Lab [address] [place] [phone] Neut% Normal [facility] Reference Lab Comment on above: Result Comment: Unab le to assay. Specimen improperly collected/handled. ONLY RECEIVED PST TUBES, NEED LAV,[id number] 2229 SP Account Credited Performed By: #### T SH, CBCDIF, CMP, FERR, IRON, CYSTC #### [facility] Routine Lab [address] [place] [phone] Platelet Count Normal 150-400 [facility] Reference Lab Comment on above: Result Comment: Unab le to assay. Specimen improperly collected/handled. ONLY RECEIVED PST TUBES, NEED LAV,[id number] 2229 SP Account Credited Performed By: #### T SH, CBCDIF, CMP, FERR, IRON, CYSTC #### [facility] Routine Lab [address] [place] [phone] RBC Normal 3.90-5.20 [facility] Reference Lab Comment on above: Result Comment: Unab le to assay. Specimen improperly collected/handled. ONLY RECEIVED PST TUBES, NEED LAV,[id number] 2229 SP Account Credited Performed By: #### T SH, CBCDIF, CMP, FERR, IRON, CYSTC #### [facility] Routine Lab [address] [place] [phone] RDW-CV Normal 11.5-15.0 [facility] Reference Lab Comment on above: Result Comment: Unab le to assay. Specimen improperly collected/handled. ONLY RECEIVED PST TUBES, NEED LAV,[id number] 2229 SP Account Credited Performed By: #### T SH, CBCDIF, CMP, FERR, IRON, CYSTC #### [facility] Routine Lab [address] [place] [phone] Recheck Normal [facility] Reference Lab Comment on above: Result Comment: Unab le to assay. Specimen improperly collected/handled. ONLY RECEIVED PST TUBES, NEED LAV,[id number] 2229 SP Account Credited Performed By: #### T SH, CBCDIF, CMP, FERR, IRON, CYSTC #### [facility] Routine Lab [address] [place], [place] [phone] Review Normal [facility] Lab Comment on above: Result Comment: Unab le to assay. Specimen improperly collected/handled. ONLY RECEIVED PST TUBES, NEED LAV,[id number] 2229 SP Account Credited Performed By: #### T SH, CBCDIF, CMP, FERR, IRON, CYSTC #### [facility] Routine Lab [address] [place], [place] [phone] WBC Normal 3.70-11.00 [facility] Reference Lab Comment on above: Result Comment: Unab le to assay. Specimen improperly collected/handled. ONLY RECEIVED PST TUBES, NEED LAV,[id number] 2229 SP Account Credited Performed By: #### T SH, CBCDIF, CMP, FERR, IRON, CYSTC #### [facility] Routine Lab [address] [place], [place] [address] Comp Metabolic Panelon 06-26 Albumin [Mass/Vol] 4.2 g/dL Normal 3.9-4.9 [facility] Reference Lab Comment on above: Performed By: #### T SH, CBCDIF, CMP, FERR, IRON, CYSTC #### [facility] Routine Lab [address] [place], [place] [address] ALP [Catalytic activity/Vol] 95 U/L Normal 34-123 [facility] Reference Lab Comment on above: Performed By: #### T SH, CBCDIF, CMP, FERR, IRON, CYSTC #### [facility] Routine Lab [address] [place] [address] ALT [Catalytic activity/Vol] 17 U/L Normal 7-38 [facility] Reference Lab Comment on above: Performed By: #### T SH, CBCDIF, CMP, FERR, IRON, CYSTC #### [facility] Routine Lab [address] [address] Anion gap [Moles/Vol] 12 mmol/L Normal 9-18 [facility] Reference Lab Comment on above: Performed By: #### T SH, CBCDIF, CMP, FERR, IRON, CYSTC #### [facility] Routine Lab [address] [place] [address] AST [Catalytic activity/Vol] 22 U/L Normal 13-35 [facility] Reference Lab Comment on above: Performed By: #### T SH, CBCDIF, CMP, FERR, IRON, CYSTC #### [facility] Routine Lab [address] [address] Bilirubin [Mass/Vol] 0.4 mg/dL Normal 0.2-1.3 [facility] Reference Lab Comment on above: Performed By: #### T SH, CBCDIF, CMP, FERR, IRON, CYSTC #### [facility] Routine Lab [address] [phone] Calcium [Mass/Vol] 9.8 mg/dL Normal 8.5-10.2 [facility] Reference Lab Comment on above: Performed By: #### T SH, CBCDIF, CMP, FERR, IRON, CYSTC #### [facility] Routine Lab [address] [phone] Chloride [Moles/Vol] 107 mmol/L High 97-105 [facility] Reference Lab Comment on above: Performed By: #### T SH, CBCDIF, CMP, FERR, IRON, CYSTC #### [facility] Routine Lab [address] [place] [address] CO2 [Moles/Vol] 22 mmol/L Normal 22-30 [facility] Reference Lab Comment on above: Performed By: #### T SH, CBCDIF, CMP, FERR, IRON, CYSTC #### [facility] Routine Lab [address] [place] [phone] Creatinine [Mass/Vol] 0.50 mg/dL Low 0.58-0.96 [facility] Reference Lab Comment on above: Performed By: #### T SH, CBCDIF, CMP, FERR, IRON, CYSTC #### [facility] Routine Lab [address] [place] [phone] eGFR- Amer. >60 Normal [facility] Reference Lab Comment on above: Performed By: #### T SH, CBCDIF, CMP, FERR, IRON, CYSTC #### [facility] Routine Lab [address] [place] [phone] eGFR-All Other Races >60 Normal [facility] Reference Lab Comment on above: Performed By: #### T SH, CBCDIF, CMP, FERR, IRON, CYSTC #### [facility] Routine Lab [address] [place] [phone] Glucose [Mass/Vol] 88 mg/dL Normal 74-99 [facility] Reference Lab Comment on above: Performed By: #### T SH, CBCDIF, CMP, FERR, IRON, CYSTC #### [facility] Routine Lab [address] [place], [place] [address] Potassium [Moles/Vol] 4.5 mmol/L Normal 3.7-5.1 [facility] Reference Lab Comment on above: Performed By: #### T SH, CBCDIF, CMP, FERR, IRON, CYSTC #### [facility] Routine Lab [address] [place], [place] [address] Protein [Mass/Vol] 6.3 g/dL Normal 6.3-8.0 [facility] Reference Lab Comment on above: Performed By: #### T SH, CBCDIF, CMP, FERR, IRON, CYSTC #### [facility] Routine Lab [address] [place], [place] [address] Sodium [Moles/Vol] 141 mmol/L Normal 136-144 [facility] Lab Comment on above: Performed By: #### T SH, CBCDIF, CMP, FERR, IRON, CYSTC #### [facility] Routine Lab [address] [place], [place] [address] Urea nitrogen [Mass/Vol] 17 mg/dL Normal 7-21 [facility] Reference Lab Comment on above: Performed By: #### T SH, CBCDIF, CMP, FERR, IRON, CYSTC #### [facility] Routine Lab [address] [place], [place] [address] Ferritinon 06-26-2021 Ferritin [Mass/Vol] 183.0 ng/mL Normal 14.7-205.1 [facility] Reference Lab Comment on above: Performed By: #### T SH, CBCDIF, CMP, FERR, IRON, CYSTC #### [facility] Routine Lab [address] [place], [place] [address] Iron and TIBCon 06-26-2021 Iron [Mass/Vol] 76 ug/dL Normal 41-186 [facility] Reference Lab Comment on above: Performed By: #### T SH, CBCDIF, CMP, FERR, IRON, CYSTC #### [facility] Routine Lab [address] [place], [place] [address] TIBC 344 ug/dL Normal 232-386 [facility] Reference Lab Comment on above: Performed By: #### T SH, CBCDIF, CMP, FERR, IRON, CYSTC #### [facility] Routine Lab [address] [place], [place] [id number] Transferrin Saturatn 22 % Normal 15-57 [facility] Reference Lab Comment on above: Performed By: #### T SH, CBCDIF, CMP, FERR, IRON, CYSTC #### [facility] Routine Lab [address] [address] TSHon 06-26-2021 TSH Qn 0.125 m[IU]/L Low 0.270-4.20 0 [facility] Reference Lab Comment on above: Performed By: #### T SH, CBCDIF, CMP, FERR, IRON, CYSTC #### [facility] Routine Lab [address] [address] Reverse T3on 04-22-2021 Reverse T3 25.6 ng/dL Normal 9.0-27.0 [facility] Reference Lab Comment on above: Performed By: #### T SH, CBCDIF, CMP, FERR, IRON, CYSTC #### [facility] Routine Lab [address] [place] [address] VitD, 1,25 Dihydroxyon 04-19 1,25 Dihydroxy VitD2 <4.0 Normal [facility] Reference Lab Comment on above: Performed By: #### T SH, CBCDIF, CMP, FERR, IRON, CYSTC #### [facility] Routine Lab [address] [place], [place] [address] 1,25 Dihydroxy VitD3 50.3 pg/mL Normal [facility] Reference Lab Comment on above: Performed By: #### T SH, CBCDIF, CMP, FERR, IRON, CYSTC #### [facility] Routine Lab [address] [phone] Vit D,1,25 DiOH Normal 15.0-60.0 [facility] Reference Lab Comment on above: Result Comment: 50.3 This test was developed and its performance characteristics determined by [facility]'s Ginna Sud[facility] [place] ( [facility]). It has not been cleared or approved by the FDA. [facility] is regulated under CLIA as qualified to perform high complexity testing. This test is used for clinical purposes. It should not be regarded as investigational or for research. Performed By: #### T SH, CBCDIF, CMP, FERR, IRON, CYSTC #### [facility] Routine Lab [address] [place] [phone] Vitamin Aon 04-18-2021 Vitamin A 0.40 mg/L Normal 0.30-1.20 [facility] Reference Lab Comment on above: Performed By: #### T SH, CBCDIF, CMP, FERR, IRON, CYSTC #### [facility] Routine Lab [phone] Vitamin D 25 Hydroxyon 04-18 Vitamin D 25 Hydroxy 35.2 ng/mL Normal 31.0-80.0 [facility] Reference Lab Comment on above: Performed By: #### T SH, CBCDIF, CMP, FERR, IRON, CYSTC #### [facility] Routine Lab [address] [place] [phone] CBC and Differentialon 04-17 Abs Baso 0.05 k/uL Normal <0.11 [facility] Reference Lab Comment on above: Performed By: #### T SH, CBCDIF, CMP, FERR, IRON, CYSTC #### [facility] Routine Lab [address] [phone] Abs Tift 0.50 k/uL Normal <0.87 [facility] Reference Lab Comment on above: Performed By: #### T SH, CBCDIF, CMP, FERR, IRON, CYSTC #### [facility] Routine Lab [address] [phone] Abs Neut 3.10 k/uL Normal 1.45-7.50 [facility] Reference Lab Comment on above: Performed By: #### T SH, CBCDIF, CMP, FERR, IRON, CYSTC #### [facility] Routine Lab [address] [phone] Absolute nRBC <0.01 Normal <0.01 [facility] Reference Lab Comment on above: Performed By: #### T SH, CBCDIF, CMP, FERR, IRON, CYSTC #### [facility] Routine Lab [facility] [phone] Basophils/100 WBC (Bld) 0.9 % Normal [facility] Reference Lab Comment on above: Performed By: #### T SH, CBCDIF, CMP, FERR, IRON, CYSTC #### [facility] Routine Lab [address] [place] [phone] DTYPE ADIFF Normal [facility] Reference Lab Comment on above: Performed By: #### T SH, CBCDIF, CMP, FERR, IRON, CYSTC #### [facility] Routine Lab [address] [place] [phone] Eosinophils (Bld) [#/Vol] 0.10 10*3/uL Normal <0.46 [facility] Reference Lab Comment on above: Performed By: #### T SH, CBCDIF, CMP, FERR, IRON, CYSTC #### [facility] Routine Lab [address] [phone] Eosinophils/100 WBC (Bld) 1.8 % Normal [facility] Reference Lab Comment on above: Performed By: #### T SH, CBCDIF, CMP, FERR, IRON, CYSTC #### [facility] Routine Lab [facility] [phone] Erythrocyte distribution width (RBC) [Ratio] 13.2 % Normal 11.5-15.0 [facility] Reference Lab Comment on above: Performed By: #### T SH, CBCDIF, CMP, FERR, IRON, CYSTC #### [facility] Routine Lab [address] [phone] Hematocrit (Bld) [Volume fraction] 49.9 % High 36.0-46.0 [facility] Reference Lab Comment on above: Performed By: #### T SH, CBCDIF, CMP, FERR, IRON, CYSTC #### [facility] Routine Lab [address] [phone] Hemoglobin (Bld) [Mass/Vol] 16.0 g/dL High 11.5-15.5 [facility] Reference Lab Comment on above: Performed By: #### T SH, CBCDIF, CMP, FERR, IRON, CYSTC #### [facility] Routine Lab [address] [place] [phone] Lymphocytes (Bld) [#/Vol] 1.92 10*3/uL Normal 1.00-4.00 [facility] Reference Lab Comment on above: Performed By: #### T SH, CBCDIF, CMP, FERR, IRON, CYSTC #### [facility] Routine Lab [facility] [phone] Lymphocytes/100 WBC (Bld) 33.7 % Normal [facility] Reference Lab Comment on above: Performed By: #### T SH, CBCDIF, CMP, FERR, IRON, CYSTC #### [facility] Routine Lab [address] [phone] MCH 30.0 pG Normal 26.0-34.0 [facility] Reference Lab Comment on above: Performed By: #### T SH, CBCDIF, CMP, FERR, IRON, CYSTC #### [facility] Routine Lab [address] [phone] MCHC (RBC) [Mass/Vol] 32.1 g/dL Normal 30.5-36.0 [facility] Reference Lab Comment on above: Performed By: #### T SH, CBCDIF, CMP, FERR, IRON, CYSTC #### [facility] Routine Lab [address] [address] MCV (RBC) [Entitic vol] 93.4 fL Normal 80.0-100.0 [facility] Reference Lab Comment on above: Performed By: #### T SH, CBCDIF, CMP, FERR, IRON, CYSTC #### [facility] Routine Lab [address] [address] Monocytes/100 WBC (Bld) 8.8 % Normal C [facility] Reference Lab Comment on above: Performed By: #### T SH, CBCDIF, CMP, FERR, IRON, CYSTC #### [facility] Routine Lab [address] [address] Neutrophils/100 WBC (Bld) 54.8 % Normal [facility] Reference Lab Comment on above: Performed By: #### T SH, CBCDIF, CMP, FERR, IRON, CYSTC #### [facility] Routine Lab [address] [address] NRBCs 0.0 /100 WBC Normal 0 [facility] Reference Lab Comment on above: Performed By: #### T SH, CBCDIF, CMP, FERR, IRON, CYSTC #### [facility] Routine Lab [address] [address] Platelet mean volume (Bld) [Entitic vol] 10.8 fL Normal 9.0-12.7 [facility] Reference Lab Comment on above: Performed By: #### T SH, CBCDIF, CMP, FERR, IRON, CYSTC #### [facility] Routine Lab [address] [address] Platelets (Bld) [#/Vol] 271 10*3/uL Normal 150-400 [facility] Reference Lab Comment on above: Performed By: #### T SH, CBCDIF, CMP, FERR, IRON, CYSTC #### [facility] Routine Lab [address] [address] RBC (Bld) [#/Vol] 5.34 10*6/uL High 3.90-5.20 [facility] Reference Lab Comment on above: Performed By: #### T SH, CBCDIF, CMP, FERR, IRON, CYSTC #### [facility] Routine Lab [address] [place], [place] [address] WBC (Bld) [#/Vol] 5.69 10*3/uL Normal 3.70-11.00 [facility] Reference Lab Comment on above: Performed By: #### T SH, CBCDIF, CMP, FERR, IRON, CYSTC #### [facility] Routine Lab [address] [place], [place] [address] Comp Metabolic Panelon 04-17 Albumin [Mass/Vol] 4.2 g/dL Normal 3.9-4.9 [facility] Lab Comment on above: Performed By: #### T SH, CBCDIF, CMP, FERR, IRON, CYSTC #### [facility] Routine Lab [address] [place], [place] [address] ALP [Catalytic activity/Vol] 88 U/L Normal 34-123 [facility] Reference Lab Comment on above: Performed By: #### T SH, CBCDIF, CMP, FERR, IRON, CYSTC #### [facility] Routine Lab [address] [place], [place] [address] ALT [Catalytic activity/Vol] 18 U/L Normal 7-38 [facility] Reference Lab Comment on above: Performed By: #### T SH, CBCDIF, CMP, FERR, IRON, CYSTC #### [facility] Routine Lab [address] [place], [place] [address] Anion gap [Moles/Vol] 11 mmol/L Normal 9-18 [facility] Reference Lab Comment on above: Performed By: #### T SH, CBCDIF, CMP, FERR, IRON, CYSTC #### [facility] Routine Lab [address] [place], [place] [address] AST [Catalytic activity/Vol] 23 U/L Normal 13-35 [facility] Reference Lab Comment on above: Performed By: #### T SH, CBCDIF, CMP, FERR, IRON, CYSTC #### [facility] Routine Lab [address] [address] Bilirubin [Mass/Vol] 0.4 mg/dL Normal 0.2-1.3 [facility] Lab Comment on above: Performed By: #### T SH, CBCDIF, CMP, FERR, IRON, CYSTC #### [facility] Routine Lab [address] [place] [address] Calcium [Mass/Vol] 9.8 mg/dL Normal 8.5-10.2 [facility] Reference Lab Comment on above: Performed By: #### T SH, CBCDIF, CMP, FERR, IRON, CYSTC #### [facility] Routine Lab [address] [place] [address] Chloride [Moles/Vol] 107 mmol/L High 97-105 [facility] Lab Comment on above: Performed By: #### T SH, CBCDIF, CMP, FERR, IRON, CYSTC #### [facility] Routine Lab [address] [place] [address] CO2 [Moles/Vol] 24 mmol/L Normal 22-30 [facility] Lab Comment on above: Performed By: #### T SH, CBCDIF, CMP, FERR, IRON, CYSTC #### [facility] Routine Lab [address] [address] Creatinine [Mass/Vol] 0.48 mg/dL Low 0.58-0.96 [facility] Lab Comment on above: Performed By: #### T SH, CBCDIF, CMP, FERR, IRON, CYSTC #### [facility] Routine Lab [address] [place] [address] eGFR- Amer. >60 Normal [facility] Reference Lab Comment on above: Performed By: #### T SH, CBCDIF, CMP, FERR, IRON, CYSTC #### [facility] Routine Lab [address] [phone] eGFR-All Other Races >60 Normal [facility] Lab Comment on above: Performed By: #### T SH, CBCDIF, CMP, FERR, IRON, CYSTC #### [facility] Routine Lab [address] [place] [phone] Glucose [Mass/Vol] 92 mg/dL Normal 74-99 [facility] Reference Lab Comment on above: Performed By: #### T SH, CBCDIF, CMP, FERR, IRON, CYSTC #### [facility] Routine Lab [address] [place] [phone] Potassium [Moles/Vol] 4.3 mmol/L Normal 3.7-5.1 [facility] Lab Comment on above: Performed By: #### T SH, CBCDIF, CMP, FERR, IRON, CYSTC #### [facility] Routine Lab [address] [place] [phone] Protein [Mass/Vol] 6.3 g/dL Normal 6.3-8.0 [facility] Reference Lab Comment on above: Performed By: #### T SH, CBCDIF, CMP, FERR, IRON, CYSTC #### [facility] Routine Lab [address] [place] [phone] Sodium [Moles/Vol] 142 mmol/L Normal 136-144 [facility] Reference Lab Comment on above: Performed By: #### T SH, CBCDIF, CMP, FERR, IRON, CYSTC #### [facility] Routine Lab [address] [place] [phone] Urea nitrogen [Mass/Vol] 16 mg/dL Normal 7-21 [facility] Reference Lab Comment on above: Performed By: #### T SH, CBCDIF, CMP, FERR, IRON, CYSTC #### [facility] Routine Lab [address] [place] [address] Free T3on 04-17-2021 Free T3 [Mass/Vol] 2.8 pg/mL Normal 2.3-4.1 [facility] Reference Lab Comment on above: Performed By: #### T SH, CBCDIF, CMP, FERR, IRON, CYSTC #### [facility] Routine Lab [address] [address] Free T4on 04-17-2021 Free T4 [Mass/Vol] 1.3 ng/dL Normal 0.9-1.7 [facility] Reference Lab Comment on above: Performed By: #### T SH, CBCDIF, CMP, FERR, IRON, CYSTC #### [facility] Routine Lab [address] [phone] Hemoglobin A1con 04-17-2021 Glucose [Mass/Vol] 97 mg/dL Normal [facility] Reference Lab Comment on above: Performed By: #### T SH, CBCDIF, CMP, FERR, IRON, CYSTC #### [facility] Routine Lab [address] [address] HbA1c (Bld) [Mass fraction] 5.0 % Normal 4.3-5.6 [facility] Reference Lab Comment on above: Performed By: #### T SH, CBCDIF, CMP, FERR, IRON, CYSTC #### [facility] Routine Lab [address] [phone] T3on 04-17-2021 T3 97 ng/dL Normal 79-165 [facility] Reference Lab Comment on above: Performed By: #### T SH, CBCDIF, CMP, FERR, IRON, CYSTC #### [facility] Routine Lab [address] [phone] T4on 04-17-2021 T4 [Mass/Vol] 7.1 ug/dL Normal 5.5-10.2 [facility] Reference Lab Comment on above: Performed By: #### T SH, CBCDIF, CMP, FERR, IRON, CYSTC #### [facility] Routine Lab [address] [address] TSHon 04-17-2021 TSH Qn 0.011 m[IU]/L Low 0.270-4.20 0 [facility] Reference Lab Comment on above: Performed By: #### T SH, CBCDIF, CMP, FERR, IRON, CYSTC #### [facility] Routine Lab [address] [place] [address] VitD, 1,25 Dihydroxyon 12-28 1,25 Dihydroxy VitD2 Normal [facility] Reference Lab Comment on above: Result Comment: <8.0 Because of the small quantity of specimen received, a specimen dilution was made. At this dilution, this analyte was not detected. Therefore, the possible maximum concentration in the specimen was determined by the assay sensitivity. Performed By: #### T SH, CBCDIF, CMP, FERR, IRON, CYSTC #### [facility] Routine Lab [address] [place] [phone] 1,25 Dihydroxy VitD3 44.8 pg/mL Normal [facility] Reference Lab Comment on above: Performed By: #### T SH, CBCDIF, CMP, FERR, IRON, CYSTC #### [facility] Routine Lab [address] [place] [address] Vit D,1,25 DiOH Normal 15.0-60.0 [facility] Reference Lab Comment on above: Result Comment: 44.8 This test was developed and its performance characteristics determined by [facility]'s [facility] [facility] [place] ( [facility]). It has not been cleared or approved by the FDA. [facility] is regulated under CLIA as qualified to perform high complexity testing. This test is used for clinical purposes. It should not be regarded as investigational or for research. 1,25 Dihydroxy Vitamin D2 was not detectable. Refer to 1,25 Vitamin D2 comment. Total 1,25 Dihydroxy Vitamin D may be falsely decreased. Performed By: #### T SH, CBCDIF, CMP, FERR, IRON, CYSTC #### [facility] Routine Lab [address] [address] Ferritinon 12-24-2020 Ferritin [Mass/Vol] 155.0 ng/mL Normal 14.7-205.1 [facility] Reference Lab Comment on above: Performed By: #### T SH, CBCDIF, CMP, FERR, IRON, CYSTC #### [facility] Routine Lab [address] [place] [address] Porphyrins, Ur Fracton 12-24 Copro 1-ratio to ENERGY ADMINISTRATOR 5 umol/mol ENERGY ADMINISTRATOR Normal 0-6 [facility] Reference Lab Copro 3-ratio to ENERGY ADMINISTRATOR 14 umol/mol ENERGY ADMINISTRATOR Normal 0-14 [facility] Reference Lab Creatinine [Mass/Vol] 62 mg/dL Normal [facility] Lab Creatinine mg/d NOT APPLICABLE Normal 500-1400 [facility] Reference Lab Heptaca-ratio to ENERGY ADMINISTRATOR 1 umol/mol ENERGY ADMINISTRATOR Normal 0-2 [facility] Reference Lab Interpretation Negative Normal [facility] Lab Uropor-ratio to ENERGY ADMINISTRATOR 2 umol/mol ENERGY ADMINISTRATOR Normal 0-4 C [facility] Reference Lab TSHon 12-24-2020 TSH Qn 0.021 m[IU]/L Low 0.270-4.20 0 [facility] Reference Lab Comment on above: Performed By: #### T PANDA, CBCDIF, CMP, FERR, IRON, CYSTC #### [facility] Routine Lab [address] [place] [address] Vitamin Aon 12-24-2020 Vitamin A 0.57 mg/L Normal 0.30-1.20 [facility] Reference Lab Comment on above: Performed By: #### T SH, CBCDIF, CMP, FERR, IRON, CYSTC #### [facility] Routine Lab [address] [place] [address] CBC and Differentialon 12-23 Abs Baso 0.04 k/uL Normal <0.11 [facility] Reference Lab Comment on above: Performed By: #### T SH, CBCDIF, CMP, FERR, IRON, CYSTC #### [facility] Routine Lab [address] [place], [place] [phone] Abs Tift 0.56 k/uL Normal <0.87 [facility] Reference Lab Comment on above: Performed By: #### T SH, CBCDIF, CMP, FERR, IRON, CYSTC #### [facility] Routine Lab [address] [phone] Abs Neut 3.28 k/uL Normal 1.45-7.50 [facility] Reference Lab Comment on above: Performed By: #### T SH, CBCDIF, CMP, FERR, IRON, CYSTC #### [facility] Routine Lab [address] [place] [phone] Absolute nRBC <0.01 Normal <0.01 [facility] Reference Lab Comment on above: Performed By: #### T SH, CBCDIF, CMP, FERR, IRON, CYSTC #### [facility] Routine Lab [address] [place], [place] [phone] Basophils/100 WBC (Bld) 0.7 % Normal [facility] Reference Lab Comment on above: Performed By: #### T SH, CBCDIF, CMP, FERR, IRON, CYSTC #### [facility] Routine Lab [address] [place] [phone] DTYPE ADIFF Normal [facility] Reference Lab Comment on above: Performed By: #### T SH, CBCDIF, CMP, FERR, IRON, CYSTC #### [facility] Routine Lab [address] [place], [place] [phone] Eosinophils (Bld) [#/Vol] 0.09 10*3/uL Normal <0.46 [facility] Reference Lab Comment on above: Performed By: #### T SH, CBCDIF, CMP, FERR, IRON, CYSTC #### [facility] Routine Lab [address] [place] [phone] Eosinophils/100 WBC (Bld) 1.5 % Normal [facility] Reference Lab Comment on above: Performed By: #### T SH, CBCDIF, CMP, FERR, IRON, CYSTC #### [facility] Routine Lab [address] [phone] Erythrocyte distribution width (RBC) [Ratio] 12.6 % Normal 11.5-15.0 [facility] Reference Lab Comment on above: Performed By: #### T SH, CBCDIF, CMP, FERR, IRON, CYSTC #### [facility] Routine Lab [address] [place] [phone] Hematocrit (Bld) [Volume fraction] 45.2 % Normal 36.0-46.0 [facility] Reference Lab Comment on above: Performed By: #### T SH, CBCDIF, CMP, FERR, IRON, CYSTC #### [facility] Routine Lab [address] [place] [phone] Hemoglobin (Bld) [Mass/Vol] 14.4 g/dL Normal 11.5-15.5 [facility] Reference Lab Comment on above: Performed By: #### T SH, CBCDIF, CMP, FERR, IRON, CYSTC #### [facility] Routine Lab [address] [place] [phone] Lymphocytes (Bld) [#/Vol] 2.15 10*3/uL Normal 1.00-4.00 [facility] Reference Lab Comment on above: Performed By: #### T SH, CBCDIF, CMP, FERR, IRON, CYSTC #### [facility] Routine Lab [address] [place] [phone] Lymphocytes/100 WBC (Bld) 35.0 % Normal [facility] Reference Lab Comment on above: Performed By: #### T SH, CBCDIF, CMP, FERR, IRON, CYSTC #### [facility] Routine Lab [address] [place] [phone] MCH 29.6 pG Normal 26.0-34.0 [facility] Reference Lab Comment on above: Performed By: #### T SH, CBCDIF, CMP, FERR, IRON, CYSTC #### [facility] Routine Lab [address] [place], [place] [address] MCHC (RBC) [Mass/Vol] 31.9 g/dL Normal 30.5-36.0 [facility] Reference Lab Comment on above: Performed By: #### T SH, CBCDIF, CMP, FERR, IRON, CYSTC #### [facility] Routine Lab [address] [phone] MCV (RBC) [Entitic vol] 92.8 fL Normal 80.0-100.0 [facility] Reference Lab Comment on above: Performed By: #### T SH, CBCDIF, CMP, FERR, IRON, CYSTC #### [facility] Routine Lab [address] [place] [address] Monocytes/100 WBC (Bld) 9.1 % Normal [facility] Reference Lab Comment on above: Performed By: #### T SH, CBCDIF, CMP, FERR, IRON, CYSTC #### [facility] Routine Lab [address] [place] [address] Neutrophils/100 WBC (Bld) 53.7 % Normal [facility] Reference Lab Comment on above: Performed By: #### T SH, CBCDIF, CMP, FERR, IRON, CYSTC #### [facility] Routine Lab [address] [place] [address] NRBCs 0.0 /100 WBC Normal 0 [facility] Reference Lab Comment on above: Performed By: #### T SH, CBCDIF, CMP, FERR, IRON, CYSTC #### [facility] Routine Lab [address] [place], [place] [address] Platelet mean volume (Bld) [Entitic vol] 11.1 fL Normal 9.0-12.7 [facility] Reference Lab Comment on above: Performed By: #### T SH, CBCDIF, CMP, FERR, IRON, CYSTC #### [facility] Routine Lab [address] [place] [address] Platelets (Bld) [#/Vol] 234 10*3/uL Normal 150-400 [facility] Reference Lab Comment on above: Performed By: #### T SH, CBCDIF, CMP, FERR, IRON, CYSTC #### [facility] Routine Lab [address] [address] RBC (Bld) [#/Vol] 4.87 10*6/uL Normal 3.90-5.20 [facility] Reference Lab Comment on above: Performed By: #### T SH, CBCDIF, CMP, FERR, IRON, CYSTC #### [facility] Routine Lab [address] [address] WBC (Bld) [#/Vol] 6.14 10*3/uL Normal 3.70-11.00 [facility] Reference Lab Comment on above: Performed By: #### T SH, CBCDIF, CMP, FERR, IRON, CYSTC #### [facility] Routine Lab [address] [place] [address] Comp Metabolic Panelon 12-23 Albumin [Mass/Vol] 4.4 g/dL Normal 3.9-4.9 [facility] Lab Comment on above: Performed By: #### T SH, CBCDIF, CMP, FERR, IRON, CYSTC #### [facility] Routine Lab [address] [place] [address] ALP [Catalytic activity/Vol] 66 U/L Normal 34-123 [facility] Reference Lab Comment on above: Performed By: #### T SH, CBCDIF, CMP, FERR, IRON, CYSTC #### [facility] Routine Lab [address] [address] ALT [Catalytic activity/Vol] 15 U/L Normal 7-38 [facility] Reference Lab Comment on above: Performed By: #### T SH, CBCDIF, CMP, FERR, IRON, CYSTC #### [facility] Routine Lab [address] [address] Anion gap [Moles/Vol] 10 mmol/L Normal 9-18 [facility] Reference Lab Comment on above: Performed By: #### T SH, CBCDIF, CMP, FERR, IRON, CYSTC #### [facility] Routine Lab [address] [address] AST [Catalytic activity/Vol] 22 U/L Normal 13-35 [facility] Reference Lab Comment on above: Performed By: #### T SH, CBCDIF, CMP, FERR, IRON, CYSTC #### [facility] Routine Lab [address] [address] Bilirubin [Mass/Vol] 0.5 mg/dL Normal 0.2-1.3 [facility] Lab Comment on above: Performed By: #### T SH, CBCDIF, CMP, FERR, IRON, CYSTC #### [facility] Routine Lab [address] [place] [address] Calcium [Mass/Vol] 9.8 mg/dL Normal 8.5-10.2 [facility] Reference Lab Comment on above: Performed By: #### T SH, CBCDIF, CMP, FERR, IRON, CYSTC #### [facility] Routine Lab [address] [address] Chloride [Moles/Vol] 104 mmol/L Normal 97-105 [facility] Lab Comment on above: Performed By: #### T SH, CBCDIF, CMP, FERR, IRON, CYSTC #### [facility] Routine Lab [address] [address] CO2 [Moles/Vol] 27 mmol/L Normal 22-30 [facility] Reference Lab Comment on above: Performed By: #### T SH, CBCDIF, CMP, FERR, IRON, CYSTC #### [facility] Routine Lab [address] [phone] Creatinine [Mass/Vol] 0.60 mg/dL Normal 0.58-0.96 [facility] Reference Lab Comment on above: Performed By: #### T SH, CBCDIF, CMP, FERR, IRON, CYSTC #### [facility] Routine Lab [address] [phone] eGFR- Amer. >60 Normal [facility] Reference Lab Comment on above: Performed By: #### T SH, CBCDIF, CMP, FERR, IRON, CYSTC #### [facility] Routine Lab [address] [phone] eGFR-All Other Races >60 Normal [facility] Reference Lab Comment on above: Performed By: #### T SH, CBCDIF, CMP, FERR, IRON, CYSTC #### [facility] Routine Lab [address] [phone] Glucose [Mass/Vol] 96 mg/dL Normal 74-99 [facility] Reference Lab Comment on above: Performed By: #### T SH, CBCDIF, CMP, FERR, IRON, CYSTC #### [facility] Routine Lab [address] [phone] Potassium [Moles/Vol] 4.3 mmol/L Normal 3.7-5.1 [facility] Reference Lab Comment on above: Performed By: #### T SH, CBCDIF, CMP, FERR, IRON, CYSTC #### [facility] Routine Lab [address] [place] [phone] Protein [Mass/Vol] 6.4 g/dL Normal 6.3-8.0 [facility] Reference Lab Comment on above: Performed By: #### T SH, CBCDIF, CMP, FERR, IRON, CYSTC #### [facility] Routine Lab [address] [phone] Sodium [Moles/Vol] 141 mmol/L Normal 136-144 [facility] Reference Lab Comment on above: Performed By: #### T SH, CBCDIF, CMP, FERR, IRON, CYSTC #### [facility] Routine Lab [address] [phone] Urea nitrogen [Mass/Vol] 18 mg/dL Normal 7-21 [facility] Reference Lab Comment on above: Performed By: #### T SH, CBCDIF, CMP, FERR, IRON, CYSTC #### [facility] Routine Lab [address] [place], [place] [address] Iron and TIBCon 12-23-2020 Iron [Mass/Vol] 92 ug/dL Normal 41-186 [facility] Reference Lab Comment on above: Performed By: #### T SH, CBCDIF, CMP, FERR, IRON, CYSTC #### [facility] Routine Lab [address] [address] TIBC 355 ug/dL Normal 232-386 [facility] Reference Lab Comment on above: Performed By: #### T SH, CBCDIF, CMP, FERR, IRON, CYSTC #### [facility] Routine Lab [address] [address] Transferrin Saturatn 26 % Normal 15-57 [facility] Lab Comment on above: Performed By: #### T SH, CBCDIF, CMP, FERR, IRON, CYSTC #### [facility] Routine Lab [address] [address] Vitamin D 25 Hydroxyon 12-23 Vitamin D 25 Hydroxy 40.1 ng/mL Normal 31.0-80.0 [facility] Lab Comment on above: Performed By: #### T SH, CBCDIF, CMP, FERR, IRON, CYSTC #### [facility] Routine Lab [address] [address] Porphyrins, Ur Fracton 11-23 Copro 1-ratio to ENERGY ADMINISTRATOR 5 umol/mol ENERGY ADMINISTRATOR Normal 0-6 [facility] Reference Lab Copro 3-ratio to ENERGY ADMINISTRATOR 14 umol/mol ENERGY ADMINISTRATOR Normal 0-14 [facility] Reference Lab Creatinine [Mass/Vol] 62 mg/dL Normal [facility] Lab Creatinine mg/d NOT APPLICABLE Normal 500-1400 [facility] Reference Lab Heptaca-ratio to ENERGY ADMINISTRATOR 1 umol/mol ENERGY ADMINISTRATOR Normal 0-2 [facility] Reference Lab Interpretation Negative Normal [facility] Reference Lab Uropor-ratio to ENERGY ADMINISTRATOR 2 umol/mol ENERGY ADMINISTRATOR Normal 0-4 C [facility] Reference Lab Porphyrins, Ur Fracton 11-19 Time Ur Porphyrins PENDING Normal [facility] Reference Lab Volume Ur Porphyrins PENDING Normal [facility] Reference Lab Time Ur Porphyrins PENDING Normal [facility] Reference Lab Volume Ur Porphyrins PENDING Normal [facility] Reference Lab Cystatin Con 09-27-2020 Cystatin C 0.86 mg/L Normal 0.61-0.95 [facility] Reference Lab Comment on above: Performed By: #### T SH, CBCDIF, CMP, FERR, IRON, CYSTC #### [facility] Routine Lab [address] [place] [phone] CBC and Differentialon 09-26 Abs Baso 0.03 k/uL Normal <0.11 [facility] Reference Lab Comment on above: Performed By: #### T SH, CBCDIF, CMP, FERR, IRON, CYSTC #### [facility] Routine Lab [address] [phone] Abs Tift 0.42 k/uL Normal <0.87 [facility] Reference Lab Comment on above: Performed By: #### T SH, CBCDIF, CMP, FERR, IRON, CYSTC #### [facility] Routine Lab [address] [place] [phone] Abs Neut 3.21 k/uL Normal 1.45-7.50 [facility] Reference Lab Comment on above: Performed By: #### T SH, CBCDIF, CMP, FERR, IRON, CYSTC #### [facility] Routine Lab [address] [address] Absolute nRBC <0.01 Normal <0.01 [facility] Reference Lab Comment on above: Performed By: #### T SH, CBCDIF, CMP, FERR, IRON, CYSTC #### [facility] Routine Lab [address] [address] Basophils/100 WBC (Bld) 0.5 % [facility] Comment on above: Performed By: #### T SH, CBCDIF, CMP, FERR, IRON, CYSTC #### [facility] Routine Lab [address] [place], [place] [address] DTYPE ADIFF Normal [facility] Reference Lab Comment on above: Performed By: #### T SH, CBCDIF, CMP, FERR, IRON, CYSTC #### [facility] Routine Lab [address] [address] Eosinophils (Bld) [#/Vol] 0.09 10*3/uL Normal <0.46 [facility] Reference Lab Comment on above: Performed By: #### T SH, CBCDIF, CMP, FERR, IRON, CYSTC #### [facility] Routine Lab [address] [address] Eosinophils/100 WBC (Bld) 1.5 % Normal [facility] Reference Lab Comment on above: Performed By: #### T SH, CBCDIF, CMP, FERR, IRON, CYSTC #### [facility] Routine Lab [address] [address] Erythrocyte distribution width (RBC) [Ratio] 13.0 % Normal 11.5-15.0 [facility] Reference Lab Comment on above: Performed By: #### T SH, CBCDIF, CMP, FERR, IRON, CYSTC #### [facility] Routine Lab [address] [address] Hematocrit (Bld) [Volume fraction] 46.8 % High 36.0-46.0 [facility] Reference Lab Comment on above: Performed By: #### T SH, CBCDIF, CMP, FERR, IRON, CYSTC #### [facility] Routine Lab [address] [phone] Hemoglobin (Bld) [Mass/Vol] 14.4 g/dL Normal 11.5-15.5 [facility] Reference Lab Comment on above: Performed By: #### T SH, CBCDIF, CMP, FERR, IRON, CYSTC #### [facility] Routine Lab [address] [address] Lymphocytes (Bld) [#/Vol] 2.10 10*3/uL Normal 1.00-4.00 [facility] Reference Lab Comment on above: Performed By: #### T SH, CBCDIF, CMP, FERR, IRON, CYSTC #### [facility] Routine Lab [address] [address] Lymphocytes/100 WBC (Bld) 35.8 % Normal [facility] Reference Lab Comment on above: Performed By: #### T SH, CBCDIF, CMP, FERR, IRON, CYSTC #### [facility] Routine Lab [address] [place] [phone] MCH 30.2 pG Normal 26.0-34.0 [facility] Reference Lab Comment on above: Performed By: #### T SH, CBCDIF, CMP, FERR, IRON, CYSTC #### [facility] Routine Lab [address] [place] [address] MCHC (RBC) [Mass/Vol] 30.8 g/dL Normal 30.5-36.0 [facility] Reference Lab Comment on above: Performed By: #### T SH, CBCDIF, CMP, FERR, IRON, CYSTC #### [facility] Routine Lab [address] [place] [address] MCV (RBC) [Entitic vol] 98.1 fL Normal 80.0-100.0 C [facility] Reference Lab Comment on above: Performed By: #### T SH, CBCDIF, CMP, FERR, IRON, CYSTC #### [facility] Routine Lab [address] [place] [address] Monocytes/100 WBC (Bld) 7.2 % Normal C [facility] Reference Lab Comment on above: Performed By: #### T SH, CBCDIF, CMP, FERR, IRON, CYSTC #### [facility] Routine Lab [address] [place], [place] [address] Neutrophils/100 WBC (Bld) 55.0 % Normal [facility] Reference Lab Comment on above: Performed By: #### T SH, CBCDIF, CMP, FERR, IRON, CYSTC #### [facility] Routine Lab [address] [place], [place] [address] NRBCs 0.0 /100 WBC Normal 0 [facility] Reference Lab Comment on above: Performed By: #### T SH, CBCDIF, CMP, FERR, IRON, CYSTC #### [facility] Routine Lab [address] [address] Platelet mean volume (Bld) [Entitic vol] 11.2 fL Normal 9.0-12.7 [facility] Reference Lab Comment on above: Performed By: #### T SH, CBCDIF, CMP, FERR, IRON, CYSTC #### [facility] Routine Lab [address] [phone] Platelets (Bld) [#/Vol] 213 10*3/uL Normal 150-400 [facility] Reference Lab Comment on above: Performed By: #### T SH, CBCDIF, CMP, FERR, IRON, CYSTC #### [facility] Routine Lab [address] [place] [address] RBC (Bld) [#/Vol] 4.77 10*6/uL Normal 3.90-5.20 [facility] Reference Lab Comment on above: Performed By: #### T SH, CBCDIF, CMP, FERR, IRON, CYSTC #### [facility] Routine Lab [address] [place], [place] [address] WBC (Bld) [#/Vol] 5.86 10*3/uL Normal 3.70-11.00 [facility] Reference Lab Comment on above: Performed By: #### T SH, CBCDIF, CMP, FERR, IRON, CYSTC #### [facility] Routine Lab [address] [place], [place] [address] Comp Metabolic Panelon 09-26 Albumin [Mass/Vol] 4.2 g/dL Normal 3.9-4.9 [facility] Reference Lab Comment on above: Performed By: #### T SH, CBCDIF, CMP, FERR, IRON, CYSTC #### [facility] Routine Lab [address] [place], [place] [address] ALP [Catalytic activity/Vol] 72 U/L Normal 34-123 [facility] Reference Lab Comment on above: Performed By: #### T SH, CBCDIF, CMP, FERR, IRON, CYSTC #### [facility] Routine Lab [address] [place], [place] [address] ALT [Catalytic activity/Vol] 19 U/L Normal 7-38 [facility] Reference Lab Comment on above: Performed By: #### T SH, CBCDIF, CMP, FERR, IRON, CYSTC #### [facility] Routine Lab [address] [place], [place] [address] Anion gap [Moles/Vol] 11 mmol/L Normal 9-18 [facility] Reference Lab Comment on above: Performed By: #### T SH, CBCDIF, CMP, FERR, IRON, CYSTC #### [facility] Routine Lab [address] [place], [place] [address] AST [Catalytic activity/Vol] 28 U/L Normal 13-35 [facility] Reference Lab Comment on above: Performed By: #### T SH, CBCDIF, CMP, FERR, IRON, CYSTC #### [facility] Routine Lab [address] [place], [place] [address] Bilirubin [Mass/Vol] 0.4 mg/dL Normal 0.2-1.3 [facility] Reference Lab Comment on above: Performed By: #### T SH, CBCDIF, CMP, FERR, IRON, CYSTC #### [facility] Routine Lab [address] [place], [place] [address] Calcium [Mass/Vol] 9.4 mg/dL Normal 8.5-10.2 [facility] Reference Lab Comment on above: Performed By: #### T SH, CBCDIF, CMP, FERR, IRON, CYSTC #### [facility] Routine Lab [address] [address] Chloride [Moles/Vol] 107 mmol/L High 97-105 [facility] Reference Lab Comment on above: Performed By: #### T SH, CBCDIF, CMP, FERR, IRON, CYSTC #### [facility] Routine Lab [address] [place] [address] CO2 [Moles/Vol] 23 mmol/L Normal 22-30 [facility] Reference Lab Comment on above: Performed By: #### T SH, CBCDIF, CMP, FERR, IRON, CYSTC #### [facility] Routine Lab [address] [place] [phone] Creatinine [Mass/Vol] 0.60 mg/dL Normal 0.58-0.96 [facility] Reference Lab Comment on above: Performed By: #### T SH, CBCDIF, CMP, FERR, IRON, CYSTC #### [facility] Routine Lab [facility] [phone] eGFR- Amer. >60 Normal [facility] Reference Lab Comment on above: Performed By: #### T SH, CBCDIF, CMP, FERR, IRON, CYSTC #### [facility] Routine Lab [address] [address] eGFR-All Other Races >60 Normal [facility] Reference Lab Comment on above: Performed By: #### T SH, CBCDIF, CMP, FERR, IRON, CYSTC #### [facility] Routine Lab [address] [phone] Glucose [Mass/Vol] 90 mg/dL Normal 74-99 [facility] Reference Lab Comment on above: Performed By: #### T SH, CBCDIF, CMP, FERR, IRON, CYSTC #### [facility] Routine Lab [address] [place], [place] [address] Potassium [Moles/Vol] 4.7 mmol/L Normal 3.7-5.1 [facility] Reference Lab Comment on above: Performed By: #### T SH, CBCDIF, CMP, FERR, IRON, CYSTC #### [facility] Routine Lab [address] [address] Protein [Mass/Vol] 6.4 g/dL Normal 6.3-8.0 [facility] Reference Lab Comment on above: Performed By: #### T SH, CBCDIF, CMP, FERR, IRON, CYSTC #### [facility] Routine Lab [address] [place] [address] Sodium [Moles/Vol] 141 mmol/L Normal 136-144 [facility] Reference Lab Comment on above: Performed By: #### T SH, CBCDIF, CMP, FERR, IRON, CYSTC #### [facility] Routine Lab [address] [place] [phone] Urea nitrogen [Mass/Vol] 17 mg/dL Normal 7-21 [facility] Reference Lab Comment on above: Performed By: #### T SH, CBCDIF, CMP, FERR, IRON, CYSTC #### [facility] Routine Lab [address] [place] [address] Ferritinon 09-26-2020 Ferritin [Mass/Vol] 154.0 ng/mL Normal 14.7-205.1 [facility] Reference Lab Comment on above: Performed By: #### T SH, CBCDIF, CMP, FERR, IRON, CYSTC #### [facility] Routine Lab [address] [place], [place] [address] Iron and TIBCon 09-26-2020 Iron [Mass/Vol] 78 ug/dL Normal 41-186 [facility] Reference Lab Comment on above: Performed By: #### T SH, CBCDIF, CMP, FERR, IRON, CYSTC #### [facility] Routine Lab [address] [place], [place] [address] TIBC 363 ug/dL Normal 232-386 [facility] Reference Lab Comment on above: Performed By: #### T SH, CBCDIF, CMP, FERR, IRON, CYSTC #### [facility] Routine Lab [address] [place], [place] [phone] Transferrin Saturatn 21 % Normal 15-57 [facility] Reference Lab Comment on above: Performed By: #### T SH, CBCDIF, CMP, FERR, IRON, CYSTC #### [facility] Routine Lab [address] [address] TSHon 09-26-2020 TSH Qn 0.028 m[IU]/L Low 0.270-4.20 0 [facility] Reference Lab Comment on above: Performed By: #### T SH, CBCDIF, CMP, FERR, IRON, CYSTC #### [facility] Routine Lab [address] [place], [place] [address] Reverse T3on 08-05-2020 Reverse T3 17.0 ng/dL Normal 9.0-27.0 [facility] Reference Lab Comment on above: Performed By: #### T SH, CBCDIF, CMP, FERR, IRON, CYSTC #### [facility] Routine Lab [address] [place], [place] [address] VitD, 1,25 Dihydroxyon 08-03 1,25 Dihydroxy VitD2 <4.0 Normal [facility] Reference Lab Comment on above: Performed By: #### T SH, CBCDIF, CMP, FERR, IRON, CYSTC #### [facility] Routine Lab [address] [place], [place] [address] 1,25 Dihydroxy VitD3 51.2 pg/mL Normal [facility] Reference Lab Comment on above: Performed By: #### T SH, CBCDIF, CMP, FERR, IRON, CYSTC #### [facility] Routine Lab [address] [phone] Vit D,1,25 DiOH Normal 15.0-60.0 [facility] Reference Lab Comment on above: Result Comment: 51.2 This test was developed and its performance characteristics determined by [facility]'s Ginna Haley [facility] [place] ([facility]). It has not been cleared or approved by the FDA. [facility] is regulated under CLIA as qualified to perform high complexity testing. This test is used for clinical purposes. It should not be regarded as investigational or for research. Performed By: #### T SH, CBCDIF, CMP, FERR, IRON, CYSTC #### [facility] Routine Lab [address] [place] [phone] Vitamin D 25 Hydroxyon 08-03 Vitamin D 25 Hydroxy 31.4 ng/mL Normal 31.0-80.0 [facility] Reference Lab Comment on above: Performed By: #### T PANDA, CBCDIF, CMP, FERR, IRON, CYSTC #### [facility] Routine Lab [address] [address] Fructosamineon 08-02-2020 Fructosamine 185 umol/L Low 205-285 [facility] Reference Lab Comment on above: Performed By: #### T PANDA, CBCDIF, CMP, FERR, IRON, CYSTC #### [facility] Routine Lab [address] [place] [address] Vitamin Aon 08-02-2020 Vitamin A 0.70 mg/L Normal 0.30-1.20 [facility] Reference Lab Comment on above: Performed By: #### T SH, CBCDIF, CMP, FERR, IRON, CYSTC #### [facility] Routine Lab [address] [address] Ammoniaon 08-01-2020 Ammonia (P) [Moles/Vol] 25 umol/L Normal 11-51 C [facility] Reference Lab Comment on above: Performed By: #### T SH, CBCDIF, CMP, FERR, IRON, CYSTC #### [facility] Routine Lab [address] [place] [phone] CBC and Differentialon 08-01 Abs Baso 0.03 k/uL Normal <0.11 [facility] Reference Lab Comment on above: Performed By: #### T 3, CBCDIF, FERR, T4, MG1, FRUCTO, NH3, CMP, PHOS, TSH, HBA1C, FT4, FREET3, IRON, VITD #### [facility] Routine Lab [address] [place] [phone] #### 125VTD, NATE #### [facility] Chemistry [address] [place] [phone] Abs Tift 0.49 k/uL Normal <0.87 [facility] Reference Lab Comment on above: Performed By: #### T 3, CBCDIF, FERR, T4, MG1, FRUCTO, NH3, CMP, PHOS, TSH, HBA1C, FT4, FREET3, IRON, VITD #### [facility] Routine Lab [address] [place] [phone] #### 125VTD, NATE #### [facility] Chemistry [address] [place] [phone] Abs Neut 2.96 k/uL Normal 1.45-7.50 [facility] Reference Lab Comment on above: Performed By: #### T 3, CBCDIF, FERR, T4, MG1, FRUCTO, NH3, CMP, PHOS, TSH, HBA1C, FT4, FREET3, IRON, VITD #### [facility] Routine Lab [address] [place] [phone] #### 125VTD, NATE #### [facility] Chemistry [address] [place], [place] [phone] Absolute nRBC <0.01 Normal <0.01 [facility] Reference Lab Comment on above: Performed By: #### T 3, CBCDIF, FERR, T4, MG1, FRUCTO, NH3, CMP, PHOS, TSH, HBA1C, FT4, FREET3, IRON, VITD #### [facility] Routine Lab [facility] [phone] #### 125VTD, NATE #### [facility] Chemistry [address] [place] [phone] Basophils/100 WBC (Bld) 0.6 % [facility] Comment on above: Performed By: #### T 3, CBCDIF, FERR, T4, MG1, FRUCTO, NH3, CMP, PHOS, TSH, HBA1C, FT4, FREET3, IRON, VITD #### [facility] Routine Lab [address] [place], [place] [phone] #### 125VTD, NATE #### [facility] Chemistry [address] [place] [phone] DTYPE ADIFF Normal [facility] Reference Lab Comment on above: Performed By: #### T 3, CBCDIF, FERR, T4, MG1, FRUCTO, NH3, CMP, PHOS, TSH, HBA1C, FT4, FREET3, IRON, VITD #### [facility] Routine Lab [address] [place] [phone] #### 125VTD, NATE #### [facility] Chemistry [address] [place] [phone] Eosinophils (Bld) [#/Vol] 0.11 10*3/uL Normal <0.46 [facility] Reference Lab Comment on above: Performed By: #### T 3, CBCDIF, FERR, T4, MG1, FRUCTO, NH3, CMP, PHOS, TSH, HBA1C, FT4, FREET3, IRON, VITD #### [facility] Routine Lab [address] [place] [phone] #### 125VTD, NATE #### [facility] Chemistry [address] [place] [phone] Eosinophils/100 WBC (Bld) 2.0 % Normal [facility] Reference Lab Comment on above: Performed By: #### T 3, CBCDIF, FERR, T4, MG1, FRUCTO, NH3, CMP, PHOS, TSH, HBA1C, FT4, FREET3, IRON, VITD #### [facility] Routine Lab [address] [place] [address] #### 125VTD, NATE #### [facility] Chemistry [address] [place] [address] Erythrocyte distribution width (RBC) [Ratio] 12.6 % Normal 11.5-15.0 [facility] Reference Lab Comment on above: Performed By: #### T 3, CBCDIF, FERR, T4, MG1, FRUCTO, NH3, CMP, PHOS, TSH, HBA1C, FT4, FREET3, IRON, VITD #### [facility] Routine Lab [address] [place] [address] #### 125VTD, NATE #### [facility] Chemistry [address] [place] [address] Hematocrit (Bld) [Volume fraction] 45.4 % Normal 36.0-46.0 [facility] Reference Lab Comment on above: Performed By: #### T 3, CBCDIF, FERR, T4, MG1, FRUCTO, NH3, CMP, PHOS, TSH, HBA1C, FT4, FREET3, IRON, VITD #### [facility] Routine Lab [address] [place] [address] #### 125VTD, NATE #### [facility] Chemistry [address] [place] [address] Hemoglobin (Bld) [Mass/Vol] 14.5 g/dL Normal 11.5-15.5 [facility] Reference Lab Comment on above: Performed By: #### T 3, CBCDIF, FERR, T4, MG1, FRUCTO, NH3, CMP, PHOS, TSH, HBA1C, FT4, FREET3, IRON, VITD #### [facility] Routine Lab [address] [place] [phone] #### 125VTD, NATE #### [facility] Chemistry [address] [place] [phone] Lymphocytes (Bld) [#/Vol] 1.82 10*3/uL Normal 1.00-4.00 [facility] Reference Lab Comment on above: Performed By: #### T 3, CBCDIF, FERR, T4, MG1, FRUCTO, NH3, CMP, PHOS, TSH, HBA1C, FT4, FREET3, IRON, VITD #### [facility] Routine Lab [address] [place] [phone] #### 125VTD, NATE #### [facility] Chemistry [address] [place] [phone] Lymphocytes/100 WBC (Bld) 33.6 % Normal [facility] Reference Lab Comment on above: Performed By: #### T 3, CBCDIF, FERR, T4, MG1, FRUCTO, NH3, CMP, PHOS, TSH, HBA1C, FT4, FREET3, IRON, VITD #### [facility] Routine Lab [address] [place] [phone] #### 125VTD, NATE #### [facility] Chemistry [address] [place] [phone] MCH 29.8 pG Normal 26.0-34.0 [facility] Reference Lab Comment on above: Performed By: #### T 3, CBCDIF, FERR, T4, MG1, FRUCTO, NH3, CMP, PHOS, TSH, HBA1C, FT4, FREET3, IRON, VITD #### [facility] Routine Lab [address] [place] [phone] #### 125VTD, NATE #### [facility] Chemistry [address] [place] [phone] MCHC (RBC) [Mass/Vol] 31.9 g/dL Normal 30.5-36.0 [facility] Reference Lab Comment on above: Performed By: #### T 3, CBCDIF, FERR, T4, MG1, FRUCTO, NH3, CMP, PHOS, TSH, HBA1C, FT4, FREET3, IRON, VITD #### [facility] Routine Lab [address] [place] [phone] #### 125VTD, NATE #### [facility] Chemistry [address] [place] [phone] MCV (RBC) [Entitic vol] 93.2 fL Normal 80.0-100.0 C [facility] Reference Lab Comment on above: Performed By: #### T 3, CBCDIF, FERR, T4, MG1, FRUCTO, NH3, CMP, PHOS, TSH, HBA1C, FT4, FREET3, IRON, VITD #### [facility] Routine Lab [address] [place] [phone] #### 125VTD, NATE #### [facility] Chemistry [address] [place] [phone] Monocytes/100 WBC (Bld) 9.0 % Normal C [facility] Reference Lab Comment on above: Performed By: #### T 3, CBCDIF, FERR, T4, MG1, FRUCTO, NH3, CMP, PHOS, TSH, HBA1C, FT4, FREET3, IRON, VITD #### [facility] Routine Lab [address] [place] [phone] #### 125VTD, NATE #### [facility] Chemistry [address] [place] [phone] Neutrophils/100 WBC (Bld) 54.8 % Normal [facility] Reference Lab Comment on above: Performed By: #### T 3, CBCDIF, FERR, T4, MG1, FRUCTO, NH3, CMP, PHOS, TSH, HBA1C, FT4, FREET3, IRON, VITD #### [facility] Routine Lab [address] [place] [phone] #### 125VTD, NATE #### [facility] Chemistry [address] [place] [phone] NRBCs 0.0 /100 WBC Normal 0 [facility] Reference Lab Comment on above: Performed By: #### T 3, CBCDIF, FERR, T4, MG1, FRUCTO, NH3, CMP, PHOS, TSH, HBA1C, FT4, FREET3, IRON, VITD #### [facility] Routine Lab [address] [place], [place] [phone] #### 125VTD, NATE #### [facility] Chemistry [address] [place], [place] [phone] Platelet mean volume (Bld) [Entitic vol] 11.1 fL Normal 9.0-12.7 [facility] Reference Lab Comment on above: Performed By: #### T 3, CBCDIF, FERR, T4, MG1, FRUCTO, NH3, CMP, PHOS, TSH, HBA1C, FT4, FREET3, IRON, VITD #### [facility] Routine Lab [address] [place], [place] [phone] #### 125VTD, NATE #### [facility] Chemistry [address] [place], [place] [phone] Platelets (Bld) [#/Vol] 225 10*3/uL Normal 150-400 [facility] Reference Lab Comment on above: Performed By: #### T 3, CBCDIF, FERR, T4, MG1, FRUCTO, NH3, CMP, PHOS, TSH, HBA1C, FT4, FREET3, IRON, VITD #### [facility] Routine Lab [address] [place], [place] [phone] #### 125VTD, NATE #### [facility] Chemistry [address] [place], [place] [phone] RBC (Bld) [#/Vol] 4.87 10*6/uL Normal 3.90-5.20 [facility] Reference Lab Comment on above: Performed By: #### T 3, CBCDIF, FERR, T4, MG1, FRUCTO, NH3, CMP, PHOS, TSH, HBA1C, FT4, FREET3, IRON, VITD #### [facility] Routine Lab [address] [place] [phone] #### 125VTD, NATE #### [facility] Chemistry [address] [place] [phone] WBC (Bld) [#/Vol] 5.42 10*3/uL Normal 3.70-11.00 [facility] Reference Lab Comment on above: Performed By: #### T 3, CBCDIF, FERR, T4, MG1, FRUCTO, NH3, CMP, PHOS, TSH, HBA1C, FT4, FREET3, IRON, VITD #### [facility] Routine Lab [address] [place] [phone] #### 125VTD, NATE #### [facility] Chemistry [address] [place] [phone] Comp Metabolic Panelon 08-01 Albumin [Mass/Vol] 4.4 g/dL Normal 3.9-4.9 [facility] Reference Lab Comment on above: Performed By: #### T SH, CBCDIF, CMP, FERR, IRON, CYSTC #### [facility] Routine Lab [address] [place] [phone] ALP [Catalytic activity/Vol] 77 U/L Normal 34-123 [facility] Reference Lab Comment on above: Performed By: #### T SH, CBCDIF, CMP, FERR, IRON, CYSTC #### [facility] Routine Lab [address] [place] [phone] ALT [Catalytic activity/Vol] 15 U/L Normal 7-38 [facility] Reference Lab Comment on above: Performed By: #### T SH, CBCDIF, CMP, FERR, IRON, CYSTC #### [facility] Routine Lab [address] [place] [phone] Anion gap [Moles/Vol] 10 mmol/L Normal 9-18 [facility] Reference Lab Comment on above: Performed By: #### T SH, CBCDIF, CMP, FERR, IRON, CYSTC #### [facility] Routine Lab [address] [place], [place] [address] AST [Catalytic activity/Vol] 18 U/L Normal 13-35 [facility] Reference Lab Comment on above: Performed By: #### T SH, CBCDIF, CMP, FERR, IRON, CYSTC #### [facility] Routine Lab [address] [place], [place] [address] Bilirubin [Mass/Vol] 0.4 mg/dL Normal 0.2-1.3 [facility] Reference Lab Comment on above: Performed By: #### T SH, CBCDIF, CMP, FERR, IRON, CYSTC #### [facility] Routine Lab [address] [place], [place] [address] Calcium [Mass/Vol] 9.8 mg/dL Normal 8.5-10.2 [facility] Reference Lab Comment on above: Performed By: #### T SH, CBCDIF, CMP, FERR, IRON, CYSTC #### [facility] Routine Lab [address] [place], [place] [address] Chloride [Moles/Vol] 109 mmol/L High 97-105 [facility] Reference Lab Comment on above: Performed By: #### T SH, CBCDIF, CMP, FERR, IRON, CYSTC #### [facility] Routine Lab [address] [place], [place] [address] CO2 [Moles/Vol] 23 mmol/L Normal 22-30 [facility] Reference Lab Comment on above: Performed By: #### T SH, CBCDIF, CMP, FERR, IRON, CYSTC #### [facility] Routine Lab [address] [place], [place] [address] Creatinine [Mass/Vol] 0.54 mg/dL Low 0.58-0.96 [facility] Reference Lab Comment on above: Performed By: #### T SH, CBCDIF, CMP, FERR, IRON, CYSTC #### [facility] Routine Lab [address] [place] [address] eGFR- Amer. >60 Normal [facility] Reference Lab Comment on above: Performed By: #### T SH, CBCDIF, CMP, FERR, IRON, CYSTC #### [facility] Routine Lab [address] [place] [address] eGFR-All Other Races >60 Normal [facility] Reference Lab Comment on above: Performed By: #### T SH, CBCDIF, CMP, FERR, IRON, CYSTC #### [facility] Routine Lab [address] [place] [phone] Glucose [Mass/Vol] 94 mg/dL Normal 74-99 [facility] Reference Lab Comment on above: Performed By: #### T SH, CBCDIF, CMP, FERR, IRON, CYSTC #### [facility] Routine Lab [address] [place] [address] Potassium [Moles/Vol] 4.6 mmol/L Normal 3.7-5.1 [facility] Lab Comment on above: Performed By: #### T SH, CBCDIF, CMP, FERR, IRON, CYSTC #### [facility] Routine Lab [address] [place] [phone] Protein [Mass/Vol] 6.2 g/dL Low 6.3-8.0 [facility] Reference Lab Comment on above: Performed By: #### T SH, CBCDIF, CMP, FERR, IRON, CYSTC #### [facility] Routine Lab [address] [place] [address] Sodium [Moles/Vol] 142 mmol/L Normal 136-144 [facility] Reference Lab Comment on above: Performed By: #### T SH, CBCDIF, CMP, FERR, IRON, CYSTC #### [facility] Routine Lab [address] [place] [address] Urea nitrogen [Mass/Vol] 17 mg/dL Normal 7-21 [facility] Reference Lab Comment on above: Performed By: #### T SH, CBCDIF, CMP, FERR, IRON, CYSTC #### [facility] Routine Lab [address] [place] [address] Ferritinon 08-01-2020 Ferritin [Mass/Vol] 126.0 ng/mL Normal 14.7-205.1 [facility] Reference Lab Comment on above: Performed By: #### T SH, CBCDIF, CMP, FERR, IRON, CYSTC #### [facility] Routine Lab [address] [place] [phone] Free T3on 08-01-2020 Free T3 [Mass/Vol] 2.5 pg/mL Normal 2.3-4.1 [facility] Reference Lab Comment on above: Performed By: #### T SH, CBCDIF, CMP, FERR, IRON, CYSTC #### [facility] Routine Lab [address] [place] [phone] Free T4on 08-01-2020 Free T4 [Mass/Vol] 1.0 ng/dL Normal 0.9-1.7 [facility] Reference Lab Comment on above: Performed By: #### T SH, CBCDIF, CMP, FERR, IRON, CYSTC #### [facility] Routine Lab [address] [place] [phone] Hemoglobin A1con 08-01-2020 Glucose [Mass/Vol] 105 mg/dL Normal [facility] Reference Lab Comment on above: Performed By: #### T SH, CBCDIF, CMP, FERR, IRON, CYSTC #### [facility] Routine Lab [address] [place] [address] HbA1c (Bld) [Mass fraction] 5.3 % Normal 4.3-5.6 [facility] Reference Lab Comment on above: Performed By: #### T SH, CBCDIF, CMP, FERR, IRON, CYSTC #### [facility] Routine Lab [address] [place] [phone] Iron and TIBCon 08-01-2020 Iron [Mass/Vol] 58 ug/dL Normal 41-186 [facility] Reference Lab Comment on above: Performed By: #### T 3, CBCDIF, FERR, T4, MG1, FRUCTO, NH3, CMP, PHOS, TSH, HBA1C, FT4, FREET3, IRON, VITD #### [facility] Routine Lab [address] [place] [address] #### 125VTD, NATE #### [facility] Chemistry [address] [place] [phone] TIBC 354 ug/dL Normal 232-386 [facility] Reference Lab Comment on above: Performed By: #### T 3, CBCDIF, FERR, T4, MG1, FRUCTO, NH3, CMP, PHOS, TSH, HBA1C, FT4, FREET3, IRON, VITD #### [facility] Routine Lab [address] [place] [phone] #### 125VTD, NATE #### [facility] Chemistry [address] [place] [phone] Transferrin Saturatn 16 % Normal 15-57 [facility] Reference Lab Comment on above: Performed By: #### T 3, CBCDIF, FERR, T4, MG1, FRUCTO, NH3, CMP, PHOS, TSH, HBA1C, FT4, FREET3, IRON, VITD #### [facility] Routine Lab [address] [place] [address] #### 125VTD, NATE #### [facility] Chemistry [address] [place] [phone] Magnesiumon 08-01-2020 Magnesium [Mass/Vol] 2.1 mg/dL Normal 1.7-2.3 [facility] Reference Lab Comment on above: Performed By: #### T 3, CBCDIF, FERR, T4, MG1, FRUCTO, NH3, CMP, PHOS, TSH, HBA1C, FT4, FREET3, IRON, VITD #### [facility] Routine Lab [address] [place] [phone] #### 125VTD, NATE #### [facility] Chemistry [address] [place] [phone] Phosphorus08-01-2020 Phosphate [Mass/Vol] 3.4 mg/dL Normal 2.7-4.8 [facility] Reference Lab Comment on above: Performed By: #### T 3, CBCDIF, FERR, T4, MG1, FRUCTO, NH3, CMP, PHOS, TSH, HBA1C, FT4, FREET3, IRON, VITD #### [facility] Routine Lab [address] [place], [place] [phone] #### 125VTD, NATE #### [facility] Chemistry [address] [place], [place] [phone] T308-01-2020 T3 97 ng/dL Normal 79-165 [facility] Reference Lab Comment on above: Performed By: #### T SH, CBCDIF, CMP, FERR, IRON, CYSTC #### [facility] Routine Lab [address] [place] [place], [place] [id number] T408-01-2020 T4 [Mass/Vol] 6.9 ug/dL Normal 5.5-10.2 [facility] Reference [facility] Comment on above: Performed By: #### T SH, CBCDIF, CMP, FERR, IRON, CYSTC #### [facility] Routine Lab [address] [place], [place] [phone] TSHon 08-01-2020 TSH Qn 0.024 m[IU]/L Low 0.270-4.20 0 [facility] Comment on above: Performed By: #### T SH, CBCDIF, CMP, FERR, IRON, CYSTC #### [facility] Routine Lab [address] [place], [place] [phone] Reverse T3on 03-10-2020 Reverse T3 17.6 ng/dL Normal 9.0-27.0 [facility] Comment on above: Performed By: #### C BCDIF, CMP, FERR, TSH, IRON, MG1, PHOS, HBA1C, FREET3, FT4, T3, T4, VITD #### [facility] Routine Lab [address] [place] [phone] #### NATE, 125VTD, FRUCTO #### [facility] Chemistry [address] [place] [phone] Fructosamineon 03-09-2020 Fructosamine 238 umol/L Normal 205-285 [facility] Comment on above: Performed By: #### C BCDIF, CMP, FERR, TSH, IRON, MG1, PHOS, HBA1C, FREET3, FT4, T3, T4, VITD #### [facility] Routine Lab [address] [place] [phone] #### NATE, 125VTD, FRUCTO #### [facility] Chemistry [address] [place], [place] [phone] VitD, 1,25 Dihydroxyon 03-09 1,25 Dihydroxy VitD2 <4.0 Normal [facility] Reference Lab Comment on above: Performed By: #### C BCDIF, CMP, FERR, TSH, IRON, MG1, PHOS, HBA1C, FREET3, FT4, T3, T4, VITD #### [facility] Routine Lab [address] [place] [phone] #### NATE, 125VTD, FRUCTO #### [facility] Chemistry [address] [place] [phone] 1,25 Dihydroxy VitD3 33.7 pg/mL Normal [facility] Reference [facility] Comment on above: Performed By: #### C BCDIF, CMP, FERR, TSH, IRON, MG1, PHOS, HBA1C, FREET3, FT4, T3, T4, VITD #### [facility] Routine Lab [address] [place] [phone] #### NATE, 125VTD, FRUCTO #### [facility] Chemistry [address] [place] [phone] Vit D,1,25 DiOH Normal 15.0-60.0 [facility] Comment on above: Result Comment: 33.7 This test was developed and its performance characteristics determined by [facility]'s [facility] [place] ([facility]). It has not been cleared or approved by the FDA. [facility] is regulated under CLIA as qualified to perform high complexity testing. This test is used for clinical purposes. It should not be regarded as investigational or for research. Performed By: #### C BCDIF, CMP, FERR, TSH, IRON, MG1, PHOS, HBA1C, FREET3, FT4, T3, T4, VITD #### [facility] Routine Lab [address] [place] [phone] #### NATE, 125VTD, FRUCTO #### [facility] Chemistry [address] [place] [phone] Vitamin Aon 03-08-2020 Vitamin A 0.64 mg/L Normal 0.30-1.20 [facility] Comment on above: Performed By: #### C BCDIF, CMP, FERR, TSH, IRON, MG1, PHOS, HBA1C, FREET3, FT4, T3, T4, VITD #### [facility] Routine Lab [address] [place] [phone] #### NATE, 125VTD, FRUCTO #### [facility] Chemistry [address] [place] [phone] CBC and Differentialon 03-04 Abs Baso 0.04 k/uL Normal <0.11 [facility] Comment on above: Performed By: #### C BCDIF, CMP, FERR, TSH, IRON, MG1, PHOS, HBA1C, FREET3, FT4, T3, T4, VITD #### [facility] Routine Lab [address] [place] [phone] #### NATE, 125VTD, FRUCTO #### [facility] Chemistry [address] [place], [place] [phone] Abs Tift 0.45 k/uL Normal <0.87 [facility] Comment on above: Performed By: #### C BCDIF, CMP, FERR, TSH, IRON, MG1, PHOS, HBA1C, FREET3, FT4, T3, T4, VITD #### [facility] Routine Lab [address] [place] [phone] #### NATE, 125VTD, FRUCTO #### [facility] Chemistry [address] [place] [phone] Abs Neut 3.15 k/uL Normal 1.45-7.50 [facility] Comment on above: Performed By: #### C BCDIF, CMP, FERR, TSH, IRON, MG1, PHOS, HBA1C, FREET3, FT4, T3, T4, VITD #### [facility] Routine Lab [address] [place] [phone] #### NATE, 125VTD, FRUCTO #### [facility] Chemistry [address] [place], [place] [id number] Absolute nRBC <0.01 Normal <0.01 [facility] Comment on above: Performed By: #### C BCDIF, CMP, FERR, TSH, IRON, MG1, PHOS, HBA1C, FREET3, FT4, T3, T4, VITD #### [facility] Routine Lab [address] [place] [phone] #### NATE, 125VTD, FRUCTO #### [facility] Chemistry [address] [place], [place] [phone] Basophils/100 WBC (Bld) 0.7 % [facility] Comment on above: Performed By: #### C BCDIF, CMP, FERR, TSH, IRON, MG1, PHOS, HBA1C, FREET3, FT4, T3, T4, VITD #### [facility] Routine Lab [address] [place] [phone] #### NATE, 125VTD, FRUCTO #### [facility] Chemistry [address] [place], [place] [phone] DTYPE ADIFF Normal [facility] Comment on above: Performed By: #### C BCDIF, CMP, FERR, TSH, IRON, MG1, PHOS, HBA1C, FREET3, FT4, T3, T4, VITD #### [facility] Routine Lab [address] [place], [place] [phone] #### NATE, 125VTD, FRUCTO #### [facility] Chemistry [address] [place], [place] [phone] Eosinophils (Bld) [#/Vol] 0.16 10*3/uL Normal <0.46 [facility] Comment on above: Performed By: #### C BCDIF, CMP, FERR, TSH, IRON, MG1, PHOS, HBA1C, FREET3, FT4, T3, T4, VITD #### [facility] Routine Lab [address] [place], [place] [phone] #### NATE, 125VTD, FRUCTO #### [facility] Chemistry [address] [place], [place] [phone] Eosinophils/100 WBC (Bld) 2.7 % Normal [facility] Comment on above: Performed By: #### C BCDIF, CMP, FERR, TSH, IRON, MG1, PHOS, HBA1C, FREET3, FT4, T3, T4, VITD #### [facility] Routine Lab [address] [place] [phone] #### NATE, 125VTD, FRUCTO #### [facility] Chemistry [address] [place] [phone] Erythrocyte distribution width (RBC) [Ratio] 12.8 % Normal 11.5-15.0 [facility] Comment on above: Performed By: #### C BCDIF, CMP, FERR, TSH, IRON, MG1, PHOS, HBA1C, FREET3, FT4, T3, T4, VITD #### [facility] Routine Lab [address] [place], [place] [phone] #### NATE, 125VTD, FRUCTO #### [facility] Chemistry [address] [place], [place] [phone] Hematocrit (Bld) [Volume fraction] 47.3 % High 36.0-46.0 [facility] Comment on above: Performed By: #### C BCDIF, CMP, FERR, TSH, IRON, MG1, PHOS, HBA1C, FREET3, FT4, T3, T4, VITD #### [facility] Routine Lab [address] [place] [phone] #### NATE, 125VTD, FRUCTO #### [facility] Chemistry [address] [place] [phone] Hemoglobin (Bld) [Mass/Vol] 14.4 g/dL Normal 11.5-15.5 [facility] Comment on above: Performed By: #### C BCDIF, CMP, FERR, TSH, IRON, MG1, PHOS, HBA1C, FREET3, FT4, T3, T4, VITD #### [facility] Routine Lab [address] [place] [phone] #### NATE, 125VTD, FRUCTO #### [facility] Chemistry [address] [place] [phone] Lymphocytes (Bld) [#/Vol] 2.17 10*3/uL Normal 1.00-4.00 [facility] Comment on above: Performed By: #### C BCDIF, CMP, FERR, TSH, IRON, MG1, PHOS, HBA1C, FREET3, FT4, T3, T4, VITD #### [facility] Routine Lab [address] [place] [phone] #### NATE, 125VTD, FRUCTO #### [facility] Chemistry [address] [place], [place] [phone] Lymphocytes/100 WBC (Bld) 36.3 % Normal [facility] Comment on above: Performed By: #### C BCDIF, CMP, FERR, TSH, IRON, MG1, PHOS, HBA1C, FREET3, FT4, T3, T4, VITD #### [facility] Routine Lab [address] [place], [place] [phone] #### NATE, 125VTD, FRUCTO #### [facility] Chemistry [address] [place], [place] [id number] MCH (RBC) [Entitic mass] 29.2 pG Normal 26.0-34.0 [facility] Comment on above: Performed By: #### C BCDIF, CMP, FERR, TSH, IRON, MG1, PHOS, HBA1C, FREET3, FT4, T3, T4, VITD #### [facility] Routine Lab [address] [place] [phone] #### NATE, 125VTD, FRUCTO #### [facility] Chemistry [address] [place], [place] [phone] MCHC (RBC) [Mass/Vol] 30.4 g/dL Low 30.5-36.0 [facility] Reference Lab Comment on above: Performed By: #### C BCDIF, CMP, FERR, TSH, IRON, MG1, PHOS, HBA1C, FREET3, FT4, T3, T4, VITD #### [facility] Routine Lab [address] [place] [phone] #### NATE, 125VTD, FRUCTO #### [facility] Chemistry [address] [place] [phone] MCV (RBC) [Entitic vol] 95.9 fL Normal 80.0-100.0 [facility] Reference Lab Comment on above: Performed By: #### C BCDIF, CMP, FERR, TSH, IRON, MG1, PHOS, HBA1C, FREET3, FT4, T3, T4, VITD #### [facility] Routine Lab [address] [place] [phone] #### NATE, 125VTD, FRUCTO #### [facility] Chemistry [address] [place] [phone] Monocytes/100 WBC (Bld) 7.5 % Normal C [facility] Reference Lab Comment on above: Performed By: #### C BCDIF, CMP, FERR, TSH, IRON, MG1, PHOS, HBA1C, FREET3, FT4, T3, T4, VITD #### [facility] Routine Lab [address] [place] [phone] #### NATE, 125VTD, FRUCTO #### [facility] Chemistry [address] [place] [phone] Neutrophils/100 WBC (Bld) 52.8 % Normal [facility] Comment on above: Performed By: #### C BCDIF, CMP, FERR, TSH, IRON, MG1, PHOS, HBA1C, FREET3, FT4, T3, T4, VITD #### [facility] Routine Lab [address] [place] [phone] #### NATE, 125VTD, FRUCTO #### [facility] Chemistry [address] [place] [phone] NRBCs 0.0 /100 WBC Normal 0 [facility] Comment on above: Performed By: #### C BCDIF, CMP, FERR, TSH, IRON, MG1, PHOS, HBA1C, FREET3, FT4, T3, T4, VITD #### [facility] Routine Lab [address] [phone] #### NATE, 125VTD, FRUCTO #### [facility] Chemistry [address] [place] [phone] Platelet mean volume (Bld) [Entitic vol] 11.7 fL Normal 9.0-12.7 [facility] Comment on above: Performed By: #### C BCDIF, CMP, FERR, TSH, IRON, MG1, PHOS, HBA1C, FREET3, FT4, T3, T4, VITD #### [facility] Routine Lab [address] [place] [phone] #### NATE, 125VTD, FRUCTO #### [facility] Chemistry [address] [place] [phone] Platelets (Bld) [#/Vol] 243 10*3/uL Normal 150-400 [facility] Comment on above: Performed By: #### C BCDIF, CMP, FERR, TSH, IRON, MG1, PHOS, HBA1C, FREET3, FT4, T3, T4, VITD #### [facility] Routine Lab [address] [place] [phone] #### NATE, 125VTD, FRUCTO #### [facility] Chemistry [address] [place] [phone] RBC (Bld) [#/Vol] 4.93 10*6/uL Normal 3.90-5.20 [facility] Reference Lab Comment on above: Performed By: #### C BCDIF, CMP, FERR, TSH, IRON, MG1, PHOS, HBA1C, FREET3, FT4, T3, T4, VITD #### [facility] Routine Lab [address] [place] [phone] #### NATE, 125VTD, FRUCTO #### [facility] Chemistry [address] [place], [place] [phone] WBC (Bld) [#/Vol] 5.98 10*3/uL Normal 3.70-11.00 [facility] Reference Lab Comment on above: Performed By: #### C BCDIF, CMP, FERR, TSH, IRON, MG1, PHOS, HBA1C, FREET3, FT4, T3, T4, VITD #### [facility] Routine Lab [address] [place] [phone] #### NATE, 125VTD, FRUCTO #### [facility] Chemistry [address] [place] [phone] Comp Metabolic Panelon 03-04 Albumin [Mass/Vol] 4.6 g/dL Normal 3.9-4.9 [facility] Reference Lab Comment on above: Performed By: #### C BCDIF, CMP, FERR, TSH, IRON, MG1, PHOS, HBA1C, FREET3, FT4, T3, T4, VITD #### [facility] Routine Lab [address] [place] [phone] #### NATE, 125VTD, FRUCTO #### [facility] Chemistry [address] [place] [phone] ALP [Catalytic activity/Vol] 72 U/L Normal 34-123 [facility] Comment on above: Performed By: #### C BCDIF, CMP, FERR, TSH, IRON, MG1, PHOS, HBA1C, FREET3, FT4, T3, T4, VITD #### [facility] Routine Lab [address] [place] [phone] #### NATE, 125VTD, FRUCTO #### [facility] Chemistry [address] [place] [phone] ALT [Catalytic activity/Vol] 11 U/L Normal 7-38 [facility] Comment on above: Performed By: #### C BCDIF, CMP, FERR, TSH, IRON, MG1, PHOS, HBA1C, FREET3, FT4, T3, T4, VITD #### [facility] Routine Lab [address] [place] [phone] #### NATE, 125VTD, FRUCTO #### [facility] Chemistry [address] [place] [phone] Anion gap [Moles/Vol] 12 mmol/L Normal 9-18 [facility] Reference Lab Comment on above: Performed By: #### C BCDIF, CMP, FERR, TSH, IRON, MG1, PHOS, HBA1C, FREET3, FT4, T3, T4, VITD #### [facility] Routine Lab [address] [place] [phone] #### NATE, 125VTD, FRUCTO #### [facility] Chemistry [address] [place] [phone] AST [Catalytic activity/Vol] 17 U/L Normal 13-35 [facility] Comment on above: Performed By: #### C BCDIF, CMP, FERR, TSH, IRON, MG1, PHOS, HBA1C, FREET3, FT4, T3, T4, VITD #### [facility] Routine Lab [address] [place] [phone] #### NATE, 125VTD, FRUCTO #### [facility] Chemistry [address] [place] [phone] Bilirubin Ql (U) 0.4 mg/dL Normal 0.2-1.3 [facility] Reference Lab Comment on above: Performed By: #### C BCDIF, CMP, FERR, TSH, IRON, MG1, PHOS, HBA1C, FREET3, FT4, T3, T4, VITD #### [facility] Routine Lab [address] [place] [phone] #### NATE, 125VTD, FRUCTO #### [facility] Chemistry [address] [place] [phone] Calcium [Mass/Vol] 10.1 mg/dL Normal 8.5-10.2 [facility] Reference Lab Comment on above: Performed By: #### C BCDIF, CMP, FERR, TSH, IRON, MG1, PHOS, HBA1C, FREET3, FT4, T3, T4, VITD #### [facility] Routine Lab [address] [place] [phone] #### NATE, 125VTD, FRUCTO #### [facility] Chemistry [address] [place] [phone] Chloride [Moles/Vol] 107 mmol/L High 97-105 [facility] Reference Lab Comment on above: Performed By: #### C BCDIF, CMP, FERR, TSH, IRON, MG1, PHOS, HBA1C, FREET3, FT4, T3, T4, VITD #### [facility] Routine Lab [address] [place] [phone] #### NATE, 125VTD, FRUCTO #### [facility] Chemistry [address] [place] [phone] CO2 [Moles/Vol] 23 mmol/L Normal 22-30 [facility] Comment on above: Performed By: #### C BCDIF, CMP, FERR, TSH, IRON, MG1, PHOS, HBA1C, FREET3, FT4, T3, T4, VITD #### [facility] Routine Lab [address] [place] [phone] #### NATE, 125VTD, FRUCTO #### [facility] Chemistry [address] [place] [phone] Creatinine [Mass/Vol] 0.54 mg/dL Low 0.58-0.96 [facility] Reference Lab Comment on above: Performed By: #### C BCDIF, CMP, FERR, TSH, IRON, MG1, PHOS, HBA1C, FREET3, FT4, T3, T4, VITD #### [facility] Routine Lab [address] [place] [phone] #### NATE, 125VTD, FRUCTO #### [facility] Chemistry [address] [place] [phone] eGFR- Amer. >60 Normal [facility] Reference Lab Comment on above: Performed By: #### C BCDIF, CMP, FERR, TSH, IRON, MG1, PHOS, HBA1C, FREET3, FT4, T3, T4, VITD #### [facility] Routine Lab [address] [place] [phone] #### NATE, 125VTD, FRUCTO #### [facility] Chemistry [address] [place] [phone] GFR/1.73 sq M predicted among non-blacks MDRD (S/P/Bld) [Vol rate/Area] mL/min/{1.73_m2} Normal [facility] Reference Lab Comment on above: Performed By: #### C BCDIF, CMP, FERR, TSH, IRON, MG1, PHOS, HBA1C, FREET3, FT4, T3, T4, VITD #### [facility] Routine Lab [address] [place] [phone] #### NATE, 125VTD, FRUCTO #### [facility] Chemistry [address] [place] [phone] Glucose [Mass/Vol] 94 mg/dL Normal 74-99 [facility] Reference Lab Comment on above: Performed By: #### C BCDIF, CMP, FERR, TSH, IRON, MG1, PHOS, HBA1C, FREET3, FT4, T3, T4, VITD #### [facility] Routine Lab [address] [place] [phone] #### NATE, 125VTD, FRUCTO #### [facility] Chemistry [address] [place] [phone] Potassium [Moles/Vol] 4.5 mmol/L Normal 3.7-5.1 [facility] Reference Lab Comment on above: Performed By: #### C BCDIF, CMP, FERR, TSH, IRON, MG1, PHOS, HBA1C, FREET3, FT4, T3, T4, VITD #### [facility] Routine Lab [address] [place] [phone] #### NATE, 125VTD, FRUCTO #### [facility] Chemistry [address] [place], [place] [phone] Protein [Mass/Vol] 6.6 g/dL Normal 6.3-8.0 [facility] Reference Lab Comment on above: Performed By: #### C BCDIF, CMP, FERR, TSH, IRON, MG1, PHOS, HBA1C, FREET3, FT4, T3, T4, VITD #### [facility] Routine Lab [address] [place] [phone] #### NATE, 125VTD, FRUCTO #### [facility] Chemistry [address] [place] [phone] Sodium [Moles/Vol] 142 mmol/L Normal 136-144 [facility] Reference Lab Comment on above: Performed By: #### C BCDIF, CMP, FERR, TSH, IRON, MG1, PHOS, HBA1C, FREET3, FT4, T3, T4, VITD #### [facility] Routine Lab [address] [place] [phone] #### NATE, 125VTD, FRUCTO #### [facility] Chemistry [address] [place] [phone] Urea nitrogen [Mass/Vol] 18 mg/dL Normal 7-21 [facility] Reference Lab Comment on above: Performed By: #### C BCDIF, CMP, FERR, TSH, IRON, MG1, PHOS, HBA1C, FREET3, FT4, T3, T4, VITD #### [facility] Routine Lab [address] [place] [phone] #### NATE, 125VTD, FRUCTO #### [facility] Chemistry [address] [place] [phone] Ferritinon 03-04-2020 Ferritin [Mass/Vol] 140.0 ng/mL Normal 14.7-205.1 [facility] Reference Lab Comment on above: Performed By: #### C BCDIF, CMP, FERR, TSH, IRON, MG1, PHOS, HBA1C, FREET3, FT4, T3, T4, VITD #### [facility] Routine Lab [address] [place] [phone] #### NATE, 125VTD, FRUCTO #### [facility] Chemistry [address] [place], [place] [phone] Free T3on 03-04-2020 Free T3 [Mass/Vol] 3.3 pg/mL Normal 2.3-4.1 [facility] Reference Lab Comment on above: Performed By: #### C BCDIF, CMP, FERR, TSH, IRON, MG1, PHOS, HBA1C, FREET3, FT4, T3, T4, VITD #### [facility] Routine Lab [address] [place] [phone] #### NATE, 125VTD, FRUCTO #### [facility] Chemistry [address] [place] [phone] Free T4on 03-04-2020 Free T4 [Mass/Vol] 1.1 ng/dL Normal 0.9-1.7 [facility] Reference Lab Comment on above: Performed By: #### C BCDIF, CMP, FERR, TSH, IRON, MG1, PHOS, HBA1C, FREET3, FT4, T3, T4, VITD #### [facility] Routine Lab [address] [place] [phone] #### NATE, 125VTD, FRUCTO #### [facility] Chemistry [address] [place] [phone] Hemoglobin A1con 03-04-2020 HbA1c (Bld) [Mass fraction] 108 mg/dL Normal [facility] Comment on above: Performed By: #### C BCDIF, CMP, FERR, TSH, IRON, MG1, PHOS, HBA1C, FREET3, FT4, T3, T4, VITD #### [facility] Routine Lab [address] [phone] #### NATE, 125VTD, FRUCTO #### [facility] Chemistry [address] [place], [place] [phone] HbA1c (Bld) [Mass fraction] 5.4 % Normal 4.3-5.6 [facility] Comment on above: Performed By: #### C BCDIF, CMP, FERR, TSH, IRON, MG1, PHOS, HBA1C, FREET3, FT4, T3, T4, VITD #### [facility] Routine Lab [address] [place], [place] [phone] #### NATE, 125VTD, FRUCTO #### [facility] Chemistry [address] [place], [place] [phone] Iron and TIBCon 03-04-2020 Iron [Mass/Vol] 93 ug/dL Normal 41-186 [facility] Comment on above: Performed By: #### C BCDIF, CMP, FERR, TSH, IRON, MG1, PHOS, HBA1C, FREET3, FT4, T3, T4, VITD #### [facility] Routine Lab [address] [phone] #### NATE, 125VTD, FRUCTO #### [facility] Chemistry [address] [place], [place] [phone] TIBC 372 ug/dL Normal 232-386 [facility] Comment on above: Performed By: #### C BCDIF, CMP, FERR, TSH, IRON, MG1, PHOS, HBA1C, FREET3, FT4, T3, T4, VITD #### [facility] Routine Lab [address] [phone] #### NATE, 125VTD, FRUCTO #### [facility] Chemistry [address] [place] [phone] Transferrin Saturatn 25 % Normal 15-57 [facility] Comment on above: Performed By: #### C BCDIF, CMP, FERR, TSH, IRON, MG1, PHOS, HBA1C, FREET3, FT4, T3, T4, VITD #### [facility] Routine Lab [address] [place] [phone] #### NATE, 125VTD, FRUCTO #### [facility] Chemistry [address] [place], [place] [phone] Magnesiumon 03-04-2020 Magnesium [Mass/Vol] 2.1 mg/dL Normal 1.7-2.3 [facility] Comment on above: Performed By: #### C BCDIF, CMP, FERR, TSH, IRON, MG1, PHOS, HBA1C, FREET3, FT4, T3, T4, VITD #### [facility] Routine Lab [address] [place] [phone] #### NATE, 125VTD, FRUCTO #### [facility] Chemistry [address] [place], [place] [phone] Phosphoruson 03-04-2020 Phosphate [Mass/Vol] 3.6 mg/dL Normal 2.7-4.8 [facility] Reference Lab Comment on above: Performed By: #### C BCDIF, CMP, FERR, TSH, IRON, MG1, PHOS, HBA1C, FREET3, FT4, T3, T4, VITD #### [facility] Routine Lab [address] [place] [phone] #### NATE, 125VTD, FRUCTO #### [facility] Chemistry [address] [place] [phone] T3on 03-04-2020 T3 130 ng/dL Normal 79-165 [facility] Reference Lab Comment on above: Performed By: #### C BCDIF, CMP, FERR, TSH, IRON, MG1, PHOS, HBA1C, FREET3, FT4, T3, T4, VITD #### [facility] Routine Lab [address] [place], [place] [phone] #### NATE, 125VTD, FRUCTO #### [facility] Chemistry [address] [place], [place] [id number] T4on 03-04-2020 T4 [Mass/Vol] 6.6 ug/dL Normal 5.5-10.2 [facility] Reference Lab Comment on above: Performed By: #### C BCDIF, CMP, FERR, TSH, IRON, MG1, PHOS, HBA1C, FREET3, FT4, T3, T4, VITD #### [facility] Routine Lab [address] [place], [place] [phone] #### NATE, 125VTD, FRUCTO #### [facility] Chemistry [address] [place], [place] [id number] TSHon 03-04-2020 TSH Qn 0.009 uU/mL Low 0.270-4.20 0 [facility] Reference Lab Comment on above: Performed By: #### C BCDIF, CMP, FERR, TSH, IRON, MG1, PHOS, HBA1C, FREET3, FT4, T3, T4, VITD #### [facility] Routine Lab [address] [place] [address] #### NATE, 125VTD, FRUCTO #### [facility] Chemistry [address] [place], [place] [phone] Vitamin D 25 Hydroxyon 03-04 Vitamin D 25 Hydroxy 30.9 ng/mL Low 31.0-80.0 [facility] Reference Lab Comment on above: Performed By: #### C BCDIF, CMP, FERR, TSH, IRON, MG1, PHOS, HBA1C, FREET3, FT4, T3, T4, VITD #### [facility] Routine Lab [address] [place] [phone] #### NATE, 125VTD, FRUCTO #### [facility] Chemistry [address] [place] [phone] Reverse T3on 11-20-2019 Reverse T3 16.1 ng/dL Normal 9.0-27.0 [facility] Reference Lab Comment on above: Performed By: #### C BCDIF, UAWMIC, IRON, CMP, LIPB, TSH, FREET3, FT4, T3, T4, FERR, VITD #### [facility] Routine Lab [address] [place] [phone] #### NATE, 125VTD #### [facility] Chemistry [address] [place] [phone] CBC and Differentialon 11-15 Abs Baso 0.04 k/uL Normal <0.11 [facility] Reference Lab Comment on above: Performed By: #### C BCDIF, UAWMIC, IRON, CMP, LIPB, TSH, FREET3, FT4, T3, T4, FERR, VITD #### [facility] Routine Lab [address] [place] [phone] #### NATE, 125VTD #### [facility] Chemistry [address] [place] [phone] Abs Tift 0.44 k/uL Normal <0.87 [facility] Reference Lab Comment on above: Performed By: #### C BCDIF, UAWMIC, IRON, CMP, LIPB, TSH, FREET3, FT4, T3, T4, FERR, VITD #### [facility] Routine Lab [address] [place] [phone] #### NATE, 125VTD #### [facility] Chemistry [address] [place] [phone] Abs Neut 3.65 k/uL Normal 1.45-7.50 [facility] Reference Lab Comment on above: Performed By: #### C BCDIF, UAWMIC, IRON, CMP, LIPB, TSH, FREET3, FT4, T3, T4, FERR, VITD #### [facility] Routine Lab [address] [place] [phone] #### NATE, 125VTD #### [facility] Chemistry [address] [place] [address] Absolute nRBC <0.01 Normal <0.01 [facility] Reference Lab Comment on above: Performed By: #### C BCDIF, UAWMIC, IRON, CMP, LIPB, TSH, FREET3, FT4, T3, T4, FERR, VITD #### [facility] Routine Lab [address] [place] [phone] #### NATE, 125VTD #### [facility] Chemistry [address] [place], [place] [id number] Basophils/100 WBC (Bld) 0.6 % Normal [facility] Reference Lab Comment on above: Performed By: #### C BCDIF, UAWMIC, IRON, CMP, LIPB, TSH, FREET3, FT4, T3, T4, FERR, VITD #### [facility] Routine Lab [address] [place] [phone] #### NATE, 125VTD #### [facility] Chemistry [address] [place], [place] [id number] DTYPE ADIFF Normal [facility] Reference Lab Comment on above: Performed By: #### C BCDIF, UAWMIC, IRON, CMP, LIPB, TSH, FREET3, FT4, T3, T4, FERR, VITD #### [facility] Routine Lab [address] [place], [place] [phone] #### NATE, 125VTD #### [facility] Chemistry [address] [place], [place] [id number] Eosinophils (Bld) [#/Vol] 0.10 10*3/uL Normal <0.46 [facility] Reference Lab Comment on above: Performed By: #### C BCDIF, UAWMIC, IRON, CMP, LIPB, TSH, FREET3, FT4, T3, T4, FERR, VITD #### [facility] Routine Lab [address] [place], [place] [phone] #### NATE, 125VTD #### [facility] Chemistry [address] [place] [address] Eosinophils/100 WBC (Bld) 1.6 % Normal [facility] Reference Lab Comment on above: Performed By: #### C BCDIF, UAWMIC, IRON, CMP, LIPB, TSH, FREET3, FT4, T3, T4, FERR, VITD #### [facility] Routine Lab [address] [place] [address] #### NATE, 125VTD #### [facility] Chemistry [address] [place] [address] Erythrocyte distribution width (RBC) [Ratio] 12.8 % Normal 11.5-15.0 [facility] Reference Lab Comment on above: Performed By: #### C BCDIF, UAWMIC, IRON, CMP, LIPB, TSH, FREET3, FT4, T3, T4, FERR, VITD #### [facility] Routine Lab [address] [place], [place] [id number] #### NATE, 125VTD #### [facility] Chemistry [address] [place], [place] [phone] Hematocrit (Bld) [Volume fraction] 46.8 % High 36.0-46.0 [facility] Reference Lab Comment on above: Performed By: #### C BCDIF, UAWMIC, IRON, CMP, LIPB, TSH, FREET3, FT4, T3, T4, FERR, VITD #### [facility] Routine Lab [address] [place], [place] [phone] #### NATE, 125VTD #### [facility] Chemistry [address] [place] [phone] Hemoglobin (Bld) [Mass/Vol] 14.4 g/dL Normal 11.5-15.5 [facility] Reference Lab Comment on above: Performed By: #### C BCDIF, UAWMIC, IRON, CMP, LIPB, TSH, FREET3, FT4, T3, T4, FERR, VITD #### [facility] Routine Lab [address] [place] [phone] #### NATE, 125VTD #### [facility] Chemistry [address] [place] [phone] Lymphocytes (Bld) [#/Vol] 2.04 10*3/uL Normal 1.00-4.00 [facility] Reference Lab Comment on above: Performed By: #### C BCDIF, UAWMIC, IRON, CMP, LIPB, TSH, FREET3, FT4, T3, T4, FERR, VITD #### [facility] Routine Lab [address] [place] [phone] #### NATE, 125VTD #### [facility] Chemistry [address] [place] [phone] Lymphocytes/100 WBC (Bld) 32.4 % Normal [facility] Reference Lab Comment on above: Performed By: #### C BCDIF, UAWMIC, IRON, CMP, LIPB, TSH, FREET3, FT4, T3, T4, FERR, VITD #### [facility] Routine Lab [address] [place] [phone] #### NATE, 125VTD #### [facility] Chemistry [address] [place] [phone] MCH (RBC) [Entitic mass] 28.6 pG Normal 26.0-34.0 [facility] Reference Lab Comment on above: Performed By: #### C BCDIF, UAWMIC, IRON, CMP, LIPB, TSH, FREET3, FT4, T3, T4, FERR, VITD #### [facility] Routine Lab [address] [place] [phone] #### NATE, 125VTD #### [facility] Chemistry [address] [place] [phone] MCHC (RBC) [Mass/Vol] 30.8 g/dL Normal 30.5-36.0 [facility] Reference Lab Comment on above: Performed By: #### C BCDIF, UAWMIC, IRON, CMP, LIPB, TSH, FREET3, FT4, T3, T4, FERR, VITD #### [facility] Routine Lab [address] [place] [phone] #### NATE, 125VTD #### [facility] Chemistry [address] [place], [place] [phone] MCV (RBC) [Entitic vol] 92.9 fL Normal 80.0-100.0 [facility] Reference Lab Comment on above: Performed By: #### C BCDIF, UAWMIC, IRON, CMP, LIPB, TSH, FREET3, FT4, T3, T4, FERR, VITD #### [facility] Routine Lab [address] [place] [phone] #### NATE, 125VTD #### [facility] Chemistry [address] [place] [phone] Monocytes/100 WBC (Bld) 7.0 % Normal [facility] Reference Lab Comment on above: Performed By: #### C BCDIF, UAWMIC, IRON, CMP, LIPB, TSH, FREET3, FT4, T3, T4, FERR, VITD #### [facility] Routine Lab [address] [place] [phone] #### NATE, 125VTD #### [facility] Chemistry [address] [place] [phone] Neutrophils/100 WBC (Bld) 58.4 % Normal [facility] Reference Lab Comment on above: Performed By: #### C BCDIF, UAWMIC, IRON, CMP, LIPB, TSH, FREET3, FT4, T3, T4, FERR, VITD #### [facility] Routine Lab [address] [place], [place] [phone] #### NATE, 125VTD #### [facility] Chemistry [address] [place] [phone] NRBCs 0.0 /100 WBC Normal 0 [facility] Reference Lab Comment on above: Performed By: #### C BCDIF, UAWMIC, IRON, CMP, LIPB, TSH, FREET3, FT4, T3, T4, FERR, VITD #### [facility] Routine Lab [address] [place] [phone] #### NATE, 125VTD #### [facility] Chemistry [address] [place] [phone] Platelet mean volume (Bld) [Entitic vol] 11.3 fL Normal 9.0-12.7 [facility] Reference Lab Comment on above: Performed By: #### C BCDIF, UAWMIC, IRON, CMP, LIPB, TSH, FREET3, FT4, T3, T4, FERR, VITD #### [facility] Routine Lab [address] [place] [phone] #### NATE, 125VTD #### [facility] Chemistry [address] [place], [place] [phone] Platelets (Bld) [#/Vol] 251 10*3/uL Normal 150-400 [facility] Reference Lab Comment on above: Performed By: #### C BCDIF, UAWMIC, IRON, CMP, LIPB, TSH, FREET3, FT4, T3, T4, FERR, VITD #### [facility] Routine Lab [address] [place] [phone] #### NATE, 125VTD #### [facility] Chemistry [address] [phone] RBC (Bld) [#/Vol] 5.04 10*6/uL Normal 3.90-5.20 [facility] Reference Lab Comment on above: Performed By: #### C BCDIF, UAWMIC, IRON, CMP, LIPB, TSH, FREET3, FT4, T3, T4, FERR, VITD #### [facility] Routine Lab [address] [phone] #### NATE, 125VTD #### [facility] Chemistry [address] [place] [phone] WBC (Bld) [#/Vol] 6.29 10*3/uL Normal 3.70-11.00 [facility] Reference Lab Comment on above: Performed By: #### C BCDIF, UAWMIC, IRON, CMP, LIPB, TSH, FREET3, FT4, T3, T4, FERR, VITD #### [facility] Routine Lab [address] [place] [phone] #### NATE, 125VTD #### [facility] Chemistry [address] [place] [phone] Comp Metabolic Panelon 11-15 Albumin [Mass/Vol] 4.4 g/dL Normal 3.9-4.9 [facility] Reference Lab Comment on above: Performed By: #### C BCDIF, UAWMIC, IRON, CMP, LIPB, TSH, FREET3, FT4, T3, T4, FERR, VITD #### [facility] Routine Lab [address] [phone] #### NATE, 125VTD #### [facility] Chemistry [address] [place] [phone] ALP [Catalytic activity/Vol] 68 U/L Normal 34-123 [facility] Reference Lab Comment on above: Performed By: #### C BCDIF, UAWMIC, IRON, CMP, LIPB, TSH, FREET3, FT4, T3, T4, FERR, VITD #### [facility] Routine Lab [address] [place] [phone] #### NATE, 125VTD #### [facility] Chemistry [address] [place] [phone] ALT [Catalytic activity/Vol] 18 U/L Normal 7-38 [facility] Reference Lab Comment on above: Performed By: #### C BCDIF, UAWMIC, IRON, CMP, LIPB, TSH, FREET3, FT4, T3, T4, FERR, VITD #### [facility] Routine Lab [address] [place] [phone] #### NATE, 125VTD #### [facility] Chemistry [address] [place], [place] [phone] Anion gap [Moles/Vol] 12 mmol/L Normal 9-18 [facility] Reference Lab Comment on above: Performed By: #### C BCDIF, UAWMIC, IRON, CMP, LIPB, TSH, FREET3, FT4, T3, T4, FERR, VITD #### [facility] Routine Lab [address] [place] [phone] #### NATE, 125VTD #### [facility] Chemistry [address] [place], [place] [phone] AST [Catalytic activity/Vol] 21 U/L Normal 13-35 [facility] Reference Lab Comment on above: Performed By: #### C BCDIF, UAWMIC, IRON, CMP, LIPB, TSH, FREET3, FT4, T3, T4, FERR, VITD #### [facility] Routine Lab [address] [place] [phone] #### NATE, 125VTD #### [facility] Chemistry [address] [place], [place] [phone] Bilirubin Ql (U) 0.5 mg/dL Normal 0.2-1.3 [facility] Reference Lab Comment on above: Performed By: #### C BCDIF, UAWMIC, IRON, CMP, LIPB, TSH, FREET3, FT4, T3, T4, FERR, VITD #### [facility] Routine Lab [address] [place] [phone] #### NATE, 125VTD #### [facility] Chemistry [address] [place] [phone] Calcium [Mass/Vol] 9.9 mg/dL Normal 8.5-10.2 [facility] Reference Lab Comment on above: Performed By: #### C BCDIF, UAWMIC, IRON, CMP, LIPB, TSH, FREET3, FT4, T3, T4, FERR, VITD #### [facility] Routine Lab [address] [place] [phone] #### NATE, 125VTD #### [facility] Chemistry [address] [place] [phone] Chloride [Moles/Vol] 106 mmol/L High 97-105 [facility] Reference Lab Comment on above: Performed By: #### C BCDIF, UAWMIC, IRON, CMP, LIPB, TSH, FREET3, FT4, T3, T4, FERR, VITD #### [facility] Routine Lab [address] [place] [phone] #### NATE, 125VTD #### [facility] Chemistry [address] [place] [phone] CO2 [Moles/Vol] 25 mmol/L Normal 22-30 [facility] Reference Lab Comment on above: Performed By: #### C BCDIF, UAWMIC, IRON, CMP, LIPB, TSH, FREET3, FT4, T3, T4, FERR, VITD #### [facility] Routine Lab [address] [phone] #### NATE, 125VTD #### [facility] Chemistry [address] [place] [phone] Creatinine [Mass/Vol] 0.53 mg/dL Low 0.58-0.96 [facility] Reference Lab Comment on above: Performed By: #### C BCDIF, UAWMIC, IRON, CMP, LIPB, TSH, FREET3, FT4, T3, T4, FERR, VITD #### [facility] Routine Lab [address] [place] [phone] #### NATE, 125VTD #### [facility] Chemistry [address] [place], [place] [phone] eGFR- Amer. >60 Normal [facility] Reference Lab Comment on above: Performed By: #### C BCDIF, UAWMIC, IRON, CMP, LIPB, TSH, FREET3, FT4, T3, T4, FERR, VITD #### [facility] Routine Lab [address] [place] [phone] #### NATE, 125VTD #### [facility] Chemistry [address] [place] [phone] GFR/1.73 sq M predicted among non-blacks MDRD (S/P/Bld) [Vol rate/Area] mL/min/{1.73_m2} Normal [facility] Reference Lab Comment on above: Performed By: #### C BCDIF, UAWMIC, IRON, CMP, LIPB, TSH, FREET3, FT4, T3, T4, FERR, VITD #### [facility] Routine Lab [address] [place] [phone] #### NATE, 125VTD #### [facility] Chemistry [address] [place] [phone] Glucose [Mass/Vol] 93 mg/dL Normal 74-99 [facility] Reference Lab Comment on above: Performed By: #### C BCDIF, UAWMIC, IRON, CMP, LIPB, TSH, FREET3, FT4, T3, T4, FERR, VITD #### [facility] Routine Lab [address] [place] [phone] #### NATE, 125VTD #### [facility] Chemistry [address] [place] [phone] Potassium [Moles/Vol] 4.4 mmol/L Normal 3.7-5.1 [facility] Reference Lab Comment on above: Performed By: #### C BCDIF, UAWMIC, IRON, CMP, LIPB, TSH, FREET3, FT4, T3, T4, FERR, VITD #### [facility] Routine Lab [address] [place] [phone] #### NATE, 125VTD #### [facility] Chemistry [address] [place], [place] [phone] Protein [Mass/Vol] 6.6 g/dL Normal 6.3-8.0 [facility] Reference Lab Comment on above: Performed By: #### C BCDIF, UAWMIC, IRON, CMP, LIPB, TSH, FREET3, FT4, T3, T4, FERR, VITD #### [facility] Routine Lab [address] [place] [phone] #### NATE, 125VTD #### [facility] Chemistry [address] [place] [phone] Sodium [Moles/Vol] 143 mmol/L Normal 136-144 [facility] Reference Lab Comment on above: Performed By: #### C BCDIF, UAWMIC, IRON, CMP, LIPB, TSH, FREET3, FT4, T3, T4, FERR, VITD #### [facility] Routine Lab [address] [place] [phone] #### NATE, 125VTD #### [facility] Chemistry [address] [place], [place] [phone] Urea nitrogen [Mass/Vol] 17 mg/dL Normal 7-21 [facility] Reference Lab Comment on above: Performed By: #### C BCDIF, UAWMIC, IRON, CMP, LIPB, TSH, FREET3, FT4, T3, T4, FERR, VITD #### [facility] Routine Lab [address] [place] [phone] #### NATE, 125VTD #### [facility] Chemistry [address] [place], [place] [phone] Free T3on 11-16-2019 Free T3 [Mass/Vol] 2.9 pg/mL Normal 2.3-4.1 [facility] Reference Lab Comment on above: Performed By: #### C BCDIF, UAWMIC, IRON, CMP, LIPB, TSH, FREET3, FT4, T3, T4, FERR, VITD #### [facility] Routine Lab [address] [place], [place] [phone] #### NATE, 125VTD #### [facility] Chemistry [address] [place], [place] [phone] Free T4on 11-16-2019 Free T4 [Mass/Vol] 1.1 ng/dL Normal 0.9-1.7 [facility] Reference Lab Comment on above: Performed By: #### C BCDIF, UAWMIC, IRON, CMP, LIPB, TSH, FREET3, FT4, T3, T4, FERR, VITD #### [facility] Routine Lab [address] [place] [phone] #### NATE, 125VTD #### [facility] Chemistry [address] [place], [place] [phone] T3on 11-16-2019 T3 120 ng/dL Normal 79-165 [facility] Reference Lab Comment on above: Performed By: #### C BCDIF, UAWMIC, IRON, CMP, LIPB, TSH, FREET3, FT4, T3, T4, FERR, VITD #### [facility] Routine Lab [address] [place] [phone] #### NATE, 125VTD #### [facility] Chemistry [address] [place] [phone] T4on 11-16-2019 T4 [Mass/Vol] 6.6 ug/dL Normal 5.5-10.2 [facility] Reference Lab Comment on above: Performed By: #### C BCDIF, UAWMIC, IRON, CMP, LIPB, TSH, FREET3, FT4, T3, T4, FERR, VITD #### [facility] Routine Lab [address] [place] [phone] #### NATE, 125VTD #### [facility] Chemistry [address] [place] [phone] TSHon 11-16-2019 TSH Qn 0.010 uU/mL Low 0.270-4.20 0 [facility] Reference Lab Comment on above: Performed By: #### C BCDIF, UAWMIC, IRON, CMP, LIPB, TSH, FREET3, FT4, T3, T4, FERR, VITD #### [facility] Routine Lab [address] [place] [phone] #### NATE, 125VTD #### [facility] Chemistry [address] [place] [phone] SURGon 09-05-2019 SURG ----- Patient: WALDEMAR HUDSON SPECIMEN: [id number] Collection Date: 09/05/19 Received: 09/08/19 Status: ROSALIND Wood Dr.: Marely Alfredo MD Ph# Othr. DrYves: Giana Material for Examination: A RIGHT THUMB MASS PRE-OP DIAGNOSIS: MASS RIGHT THUMB POST-OP DIAGNOSIS: SAME SURGICAL PROCEDURE: EXCISION MASS RIGHT THUMB DIAGNOSIS A. 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 Malignancy not identified. GROSS DESCRIPTION The specimen is received in formalin and labeled with the patient's name, ID and designated R thumb mass, are fragments of thakkar slightly firm possible tissue, 1.1 x 1.0 x 0.3 cm in aggregate. The specimen is strained into a biopsy bag. Entirely submitted in cassette A1. MICROSCOPIC DESCRIPTION One Navid stained slide reviewed. /pm 09/09/2019 COPIES TO: Marely Alfredo MD Signed Verified/Reviewed by GINNA AMIN MD 09/09/19 This dictation was created using voice recognition software. Phonetic and/or minor grammatical errors may exist. [facility] NAME: WALDEMAR HUDSON Pathology and Laboratory Medicine UNIT#: [id number] LOC: DELMA Loop Puller: Argelia Nuno M.D. [id number] ROOM/BED: [employer] : 51 AGE/SEX: 63/F ORD.Marely Perales MD END OF REPORT Normal [facility] [place] Reverse T3on 08-14-2019 Reverse T3 20.1 ng/dL Normal 9.0-27.0 [facility] Reference Lab Comment on above: Performed By: #### C BCDIF, UAWMIC, IRON, CMP, LIPB, TSH, FREET3, FT4, T3, T4, FERR, VITD #### [facility] Routine Lab [address] [place] [phone] #### NATE, 125VTD #### [facility] Chemistry [address] [place], [place] [phone] VitD, 1,25 Dihydroxyon 08-12 1,25 Dihydroxy VitD2 <4.0 Normal [facility] Reference Lab Comment on above: Performed By: #### C BCDIF, UAWMIC, IRON, CMP, LIPB, TSH, FREET3, FT4, T3, T4, FERR, VITD #### [facility] Routine Lab [address] [place] [phone] #### NATE, 125VTD #### [facility] Chemistry [address] [place] [phone] 1,25 Dihydroxy VitD3 44.8 pg/mL Normal [facility] Reference Lab Comment on above: Performed By: #### C BCDIF, UAWMIC, IRON, CMP, LIPB, TSH, FREET3, FT4, T3, T4, FERR, VITD #### [facility] Routine Lab [address] [place] [phone] #### NATE, 125VTD #### [facility] Chemistry [address] [place] [phone] Vit D,1,25 DiOH Normal 15.0-60.0 [facility] Reference Lab Comment on above: Result Comment: 44.8 This test was developed and its performance characteristics determined by [facility] [facility] Pathology and Laboratory Medicine [place] ( [facility]). It has not been cleared or approved by the FDA. [facility] is regulated under CLIA as qualified to perform high complexity testing. This test is used for clinical purposes. It should not be regarded as investigational or for research. Performed By: #### C BCDIF, UAWMIC, IRON, CMP, LIPB, TSH, FREET3, FT4, T3, T4, FERR, VITD #### [facility] Routine Lab [address] [place] [phone] #### NATE, 125VTD #### [facility] Chemistry [address] [place] [phone] Vitamin Aon 08-11-2019 Vitamin A 0.66 mg/L Normal 0.30-1.20 [facility] Reference Lab Comment on above: Performed By: #### C BCDIF, UAWMIC, IRON, CMP, LIPB, TSH, FREET3, FT4, T3, T4, FERR, VITD #### [facility] Routine Lab [address] [place] [phone] #### NATE, 125VTD #### [facility] Chemistry [address] [place] [phone] Vitamin D 25 Hydroxyon 08-11 Vitamin D 25 Hydroxy 36.5 ng/mL Normal 31.0-80.0 [facility] Reference Lab Comment on above: Performed By: #### C BCDIF, UAWMIC, IRON, CMP, LIPB, TSH, FREET3, FT4, T3, T4, FERR, VITD #### [facility] Routine Lab [address] [place] [phone] #### NATE, 125VTD #### [facility] Chemistry [address] [place] [phone] CBC and Differentialon 08-10 Abs Baso 0.05 k/uL Normal <0.11 [facility] Reference Lab Comment on above: Performed By: #### C BCDIF, UAWMIC, IRON, CMP, LIPB, TSH, FREET3, FT4, T3, T4, FERR, VITD #### [facility] Routine Lab [address] [place] [phone] #### NATE, 125VTD #### [facility] Chemistry [address] [place], [place] [phone] Abs Tift 0.45 k/uL Normal <0.87 [facility] Reference Lab Comment on above: Performed By: #### C BCDIF, UAWMIC, IRON, CMP, LIPB, TSH, FREET3, FT4, T3, T4, FERR, VITD #### [facility] Routine Lab [address] [place], [place] [phone] #### NATE, 125VTD #### [facility] Chemistry [address] [place], [place] [phone] Abs Neut 3.82 k/uL Normal 1.45-7.50 [facility] Reference Lab Comment on above: Performed By: #### C BCDIF, UAWMIC, IRON, CMP, LIPB, TSH, FREET3, FT4, T3, T4, FERR, VITD #### [facility] Routine Lab [address] [place], [place] [phone] #### NATE, 125VTD #### [facility] Chemistry [address] [place], [place] [phone] Absolute nRBC <0.01 Normal <0.01 [facility] Reference Lab Comment on above: Performed By: #### C BCDIF, UAWMIC, IRON, CMP, LIPB, TSH, FREET3, FT4, T3, T4, FERR, VITD #### [facility] Routine Lab [address] [place], [place] [phone] #### NATE, 125VTD #### [facility] Chemistry [address] [place], [place] [phone] Basophils/100 WBC (Bld) 0.8 % Normal C [facility] Reference Lab Comment on above: Performed By: #### C BCDIF, UAWMIC, IRON, CMP, LIPB, TSH, FREET3, FT4, T3, T4, FERR, VITD #### [facility] Routine Lab [address] [place] [phone] #### NATE, 125VTD #### [facility] Chemistry [address] [place] [phone] DTYPE ADIFF Normal [facility] Reference Lab Comment on above: Performed By: #### C BCDIF, UAWMIC, IRON, CMP, LIPB, TSH, FREET3, FT4, T3, T4, FERR, VITD #### [facility] Routine Lab [address] [place] [phone] #### NATE, 125VTD #### [facility] Chemistry [address] [place] [phone] Eosinophils (Bld) [#/Vol] 0.13 10*3/uL Normal <0.46 [facility] Reference Lab Comment on above: Performed By: #### C BCDIF, UAWMIC, IRON, CMP, LIPB, TSH, FREET3, FT4, T3, T4, FERR, VITD #### [facility] Routine Lab [address] [place] [phone] #### NATE, 125VTD #### [facility] Chemistry [address] [place] [phone] Eosinophils/100 WBC (Bld) 2.1 % Normal [facility] Reference Lab Comment on above: Performed By: #### C BCDIF, UAWMIC, IRON, CMP, LIPB, TSH, FREET3, FT4, T3, T4, FERR, VITD #### [facility] Routine Lab [address] [place] [phone] #### NATE, 125VTD #### [facility] Chemistry [address] [place] [phone] Erythrocyte distribution width (RBC) [Ratio] 13.2 % Normal 11.5-15.0 [facility] Reference Lab Comment on above: Performed By: #### C BCDIF, UAWMIC, IRON, CMP, LIPB, TSH, FREET3, FT4, T3, T4, FERR, VITD #### [facility] Routine Lab [address] [place] [address] #### NATE, 125VTD #### [facility] Chemistry [address] [place], [place] [phone] Hematocrit (Bld) [Volume fraction] 44.1 % Normal 36.0-46.0 [facility] Reference Lab Comment on above: Performed By: #### C BCDIF, UAWMIC, IRON, CMP, LIPB, TSH, FREET3, FT4, T3, T4, FERR, VITD #### [facility] Routine Lab [address] [place] [address] #### NATE, 125VTD #### [facility] Chemistry [address] [place] [address] Hemoglobin (Bld) [Mass/Vol] 13.8 g/dL Normal 11.5-15.5 [facility] Reference Lab Comment on above: Performed By: #### C BCDIF, UAWMIC, IRON, CMP, LIPB, TSH, FREET3, FT4, T3, T4, FERR, VITD #### [facility] Routine Lab [address] [place] [address] #### NATE, 125VTD #### [facility] Chemistry [address] [place] [address] Lymphocytes (Bld) [#/Vol] 1.77 10*3/uL Normal 1.00-4.00 [facility] Reference Lab Comment on above: Performed By: #### C BCDIF, UAWMIC, IRON, CMP, LIPB, TSH, FREET3, FT4, T3, T4, FERR, VITD #### [facility] Routine Lab [address] [place], [place] [phone] #### NATE, 125VTD #### [facility] Chemistry [address] [place] [phone] Lymphocytes/100 WBC (Bld) 28.4 % Normal [facility] Reference Lab Comment on above: Performed By: #### C BCDIF, UAWMIC, IRON, CMP, LIPB, TSH, FREET3, FT4, T3, T4, FERR, VITD #### [facility] Routine Lab [address] [place] [phone] #### NATE, 125VTD #### [facility] Chemistry [address] [place] [phone] MCH (RBC) [Entitic mass] 29.2 pG Normal 26.0-34.0 [facility] Reference Lab Comment on above: Performed By: #### C BCDIF, UAWMIC, IRON, CMP, LIPB, TSH, FREET3, FT4, T3, T4, FERR, VITD #### [facility] Routine Lab [address] [place] [phone] #### NATE, 125VTD #### [facility] Chemistry [address] [place] [phone] MCHC (RBC) [Mass/Vol] 31.3 g/dL Normal 30.5-36.0 [facility] Reference Lab Comment on above: Performed By: #### C BCDIF, UAWMIC, IRON, CMP, LIPB, TSH, FREET3, FT4, T3, T4, FERR, VITD #### [facility] Routine Lab [address] [place] [phone] #### NATE, 125VTD #### [facility] Chemistry [address] [place] [phone] MCV (RBC) [Entitic vol] 93.4 fL Normal 80.0-100.0 [facility] Reference Lab Comment on above: Performed By: #### C BCDIF, UAWMIC, IRON, CMP, LIPB, TSH, FREET3, FT4, T3, T4, FERR, VITD #### [facility] Routine Lab [address] [place] [phone] #### NATE, 125VTD #### [facility] Chemistry [address] [place] [phone] Monocytes/100 WBC (Bld) 7.2 % Normal C [facility] Reference Lab Comment on above: Performed By: #### C BCDIF, UAWMIC, IRON, CMP, LIPB, TSH, FREET3, FT4, T3, T4, FERR, VITD #### [facility] Routine Lab [address] [place] [phone] #### NATE, 125VTD #### [facility] Chemistry [address] [place] [phone] Neutrophils/100 WBC (Bld) 61.5 % Normal [facility] Reference Lab Comment on above: Performed By: #### C BCDIF, UAWMIC, IRON, CMP, LIPB, TSH, FREET3, FT4, T3, T4, FERR, VITD #### [facility] Routine Lab [address] [place] [phone] #### NATE, 125VTD #### [facility] Chemistry [address] [place] [phone] NRBCs 0.0 /100 WBC Normal 0 [facility] Reference Lab Comment on above: Performed By: #### C BCDIF, UAWMIC, IRON, CMP, LIPB, TSH, FREET3, FT4, T3, T4, FERR, VITD #### [facility] Routine Lab [address] [place] [phone] #### NATE, 125VTD #### [facility] Chemistry [address] [place] [phone] Platelet mean volume (Bld) [Entitic vol] 11.4 fL Normal 9.0-12.7 [facility] Reference Lab Comment on above: Performed By: #### C BCDIF, UAWMIC, IRON, CMP, LIPB, TSH, FREET3, FT4, T3, T4, FERR, VITD #### [facility] Routine Lab [address] [place], [place] [phone] #### NATE, 125VTD #### [facility] Chemistry [address] [place] [phone] Platelets (Bld) [#/Vol] 230 10*3/uL Normal 150-400 [facility] Reference Lab Comment on above: Performed By: #### C BCDIF, UAWMIC, IRON, CMP, LIPB, TSH, FREET3, FT4, T3, T4, FERR, VITD #### [facility] Routine Lab [address] [place], [place] [phone] #### NATE, 125VTD #### [facility] Chemistry [address] [place], [place] [phone] RBC (Bld) [#/Vol] 4.72 10*6/uL Normal 3.90-5.20 [facility] Reference Lab Comment on above: Performed By: #### C BCDIF, UAWMIC, IRON, CMP, LIPB, TSH, FREET3, FT4, T3, T4, FERR, VITD #### [facility] Routine Lab [address] [place], [place] [phone] #### NATE, 125VTD #### [facility] Chemistry [address] [place], [place] [phone] WBC (Bld) [#/Vol] 6.24 10*3/uL Normal 3.70-11.00 [facility] Reference Lab Comment on above: Performed By: #### C BCDIF, UAWMIC, IRON, CMP, LIPB, TSH, FREET3, FT4, T3, T4, FERR, VITD #### [facility] Routine Lab [address] [place], [place] [phone] #### NATE, 125VTD #### [facility] Chemistry [address] [place] [phone] Comp Metabolic Panelon 08-10 Albumin [Mass/Vol] 4.4 g/dL Normal 3.9-4.9 [facility] Reference Lab Comment on above: Performed By: #### C BCDIF, UAWMIC, IRON, CMP, LIPB, TSH, FREET3, FT4, T3, T4, FERR, VITD #### [facility] Routine Lab [address] [place] [phone] #### NATE, 125VTD #### [facility] Chemistry [address] [place] [phone] ALP [Catalytic activity/Vol] 74 U/L Normal 34-123 [facility] Reference Lab Comment on above: Performed By: #### C BCDIF, UAWMIC, IRON, CMP, LIPB, TSH, FREET3, FT4, T3, T4, FERR, VITD #### [facility] Routine Lab [address] [place] [phone] #### NATE, 125VTD #### [facility] Chemistry [address] [place] [phone] ALT [Catalytic activity/Vol] 15 U/L Normal 7-38 [facility] Reference Lab Comment on above: Performed By: #### C BCDIF, UAWMIC, IRON, CMP, LIPB, TSH, FREET3, FT4, T3, T4, FERR, VITD #### [facility] Routine Lab [address] [place] [phone] #### NATE, 125VTD #### [facility] Chemistry [address] [place] [address] Anion gap [Moles/Vol] 13 mmol/L Normal 9-18 [facility] Reference Lab Comment on above: Performed By: #### C BCDIF, UAWMIC, IRON, CMP, LIPB, TSH, FREET3, FT4, T3, T4, FERR, VITD #### [facility] Routine Lab [address] [place] [phone] #### NATE, 125VTD #### [facility] Chemistry [address] [place] [phone] AST [Catalytic activity/Vol] 17 U/L Normal 13-35 [facility] Reference Lab Comment on above: Performed By: #### C BCDIF, UAWMIC, IRON, CMP, LIPB, TSH, FREET3, FT4, T3, T4, FERR, VITD #### [facility] Routine Lab [address] [place] [phone] #### NATE, 125VTD #### [facility] Chemistry [address] [place] [phone] Bilirubin Ql (U) 0.4 mg/dL Normal 0.2-1.3 [facility] Reference Lab Comment on above: Performed By: #### C BCDIF, UAWMIC, IRON, CMP, LIPB, TSH, FREET3, FT4, T3, T4, FERR, VITD #### [facility] Routine Lab [address] [place] [phone] #### NATE, 125VTD #### [facility] Chemistry [address] [place] [phone] Calcium [Mass/Vol] 9.7 mg/dL Normal 8.5-10.2 [facility] Reference Lab Comment on above: Performed By: #### C BCDIF, UAWMIC, IRON, CMP, LIPB, TSH, FREET3, FT4, T3, T4, FERR, VITD #### [facility] Routine Lab [address] [place] [phone] #### NATE, 125VTD #### [facility] Chemistry [address] [place] [address] Chloride [Moles/Vol] 105 mmol/L Normal 97-105 [facility] Reference Lab Comment on above: Performed By: #### C BCDIF, UAWMIC, IRON, CMP, LIPB, TSH, FREET3, FT4, T3, T4, FERR, VITD #### [facility] Routine Lab [address] [place], [place] [phone] #### NATE, 125VTD #### [facility] Chemistry [address] [place], [place] [phone] CO2 [Moles/Vol] 25 mmol/L Normal 22-30 [facility] Reference Lab Comment on above: Performed By: #### C BCDIF, UAWMIC, IRON, CMP, LIPB, TSH, FREET3, FT4, T3, T4, FERR, VITD #### [facility] Routine Lab [address] [place], [place] [phone] #### NATE, 125VTD #### [facility] Chemistry [address] [place], [place] [phone] Creatinine [Mass/Vol] 0.55 mg/dL Low 0.58-0.96 [facility] Reference Lab Comment on above: Performed By: #### C BCDIF, UAWMIC, IRON, CMP, LIPB, TSH, FREET3, FT4, T3, T4, FERR, VITD #### [facility] Routine Lab [address] [place], [place] [phone] #### NATE, 125VTD #### [facility] Chemistry [address] [place], [place] [phone] eGFR- Amer. >60 Normal [facility] Reference Lab Comment on above: Performed By: #### C BCDIF, UAWMIC, IRON, CMP, LIPB, TSH, FREET3, FT4, T3, T4, FERR, VITD #### [facility] Routine Lab [address] [place], [place] [phone] #### NATE, 125VTD #### [facility] Chemistry [address] [place], [place] [phone] GFR/1.73 sq M predicted among non-blacks MDRD (S/P/Bld) [Vol rate/Area] mL/min/{1.73_m2} Normal [facility] Reference Lab Comment on above: Performed By: #### C BCDIF, UAWMIC, IRON, CMP, LIPB, TSH, FREET3, FT4, T3, T4, FERR, VITD #### [facility] Routine Lab [address] [place] [phone] #### NATE, 125VTD #### [facility] Chemistry [address] [place] [phone] Glucose [Mass/Vol] 94 mg/dL Normal 74-99 [facility] Reference Lab Comment on above: Performed By: #### C BCDIF, UAWMIC, IRON, CMP, LIPB, TSH, FREET3, FT4, T3, T4, FERR, VITD #### [facility] Routine Lab [address] [place] [phone] #### NATE, 125VTD #### [facility] Chemistry [address] [place] [phone] Potassium [Moles/Vol] 4.3 mmol/L Normal 3.7-5.1 [facility] Reference Lab Comment on above: Performed By: #### C BCDIF, UAWMIC, IRON, CMP, LIPB, TSH, FREET3, FT4, T3, T4, FERR, VITD #### [facility] Routine Lab [address] [place] [phone] #### NATE, 125VTD #### [facility] Chemistry [address] [place] [phone] Protein [Mass/Vol] 6.6 g/dL Normal 6.3-8.0 [facility] Reference Lab Comment on above: Performed By: #### C BCDIF, UAWMIC, IRON, CMP, LIPB, TSH, FREET3, FT4, T3, T4, FERR, VITD #### [facility] Routine Lab [address] [place] [phone] #### NATE, 125VTD #### [facility] Chemistry [address] [place] [phone] Sodium [Moles/Vol] 143 mmol/L Normal 136-144 [facility] Reference Lab Comment on above: Performed By: #### C BCDIF, UAWMIC, IRON, CMP, LIPB, TSH, FREET3, FT4, T3, T4, FERR, VITD #### [facility] Routine Lab [address] [place] [phone] #### NATE, 125VTD #### [facility] Chemistry [address] [place] [phone] Urea nitrogen [Mass/Vol] 17 mg/dL Normal 7-21 [facility] Reference Lab Comment on above: Performed By: #### C BCDIF, UAWMIC, IRON, CMP, LIPB, TSH, FREET3, FT4, T3, T4, FERR, VITD #### [facility] Routine Lab [address] [place] [phone] #### NATE, 125VTD #### [facility] Chemistry [address] [place] [phone] Ferritinon 08-10-2019 Ferritin [Mass/Vol] 126.0 ng/mL Normal 14.7-205.1 [facility] Reference Lab Comment on above: Performed By: #### C BCDIF, UAWMIC, IRON, CMP, LIPB, TSH, FREET3, FT4, T3, T4, FERR, VITD #### [facility] Routine Lab [address] [place] [phone] #### NATE, 125VTD #### [facility] Chemistry [address] [place] [phone] Free T3on 08-10-2019 Free T3 [Mass/Vol] 3.7 pg/mL Normal 2.3-4.1 [facility] Reference Lab Comment on above: Performed By: #### C BCDIF, UAWMIC, IRON, CMP, LIPB, TSH, FREET3, FT4, T3, T4, FERR, VITD #### [facility] Routine Lab [address] [place] [phone] #### NATE, 125VTD #### [facility] Chemistry [address] [place] [phone] Free T4on 08-10-2019 Free T4 [Mass/Vol] 1.0 ng/dL Normal 0.9-1.7 [facility] Reference Lab Comment on above: Performed By: #### C BCDIF, UAWMIC, IRON, CMP, LIPB, TSH, FREET3, FT4, T3, T4, FERR, VITD #### [facility] Routine Lab [address] [place] [phone] #### NATE, 125VTD #### [facility] Chemistry [address] [place] [phone] Iron and TIBCon 08-10-2019 Iron [Mass/Vol] 76 ug/dL Normal 41-186 [facility] Reference Lab Comment on above: Performed By: #### C BCDIF, UAWMIC, IRON, CMP, LIPB, TSH, FREET3, FT4, T3, T4, FERR, VITD #### [facility] Routine Lab [address] [place] [phone] #### NATE, 125VTD #### [facility] Chemistry [address] [place] [phone] TIBC 359 ug/dL Normal 232-386 [facility] Reference Lab Comment on above: Performed By: #### C BCDIF, UAWMIC, IRON, CMP, LIPB, TSH, FREET3, FT4, T3, T4, FERR, VITD #### [facility] Routine Lab [address] [place] [phone] #### NATE, 125VTD #### [facility] Chemistry [address] [phone] Transferrin Saturatn 21 % Normal 15-57 [facility] Reference Lab Comment on above: Performed By: #### C BCDIF, UAWMIC, IRON, CMP, LIPB, TSH, FREET3, FT4, T3, T4, FERR, VITD #### [facility] Routine Lab [address] [place] [phone] #### NATE, 125VTD #### [facility] Chemistry [address] [place] [phone] Lipid Panel, [facility] 019 Cholesterol [Mass/Vol] 178 mg/dL Normal <200 [facility] Reference Lab Comment on above: Performed By: #### C BCDIF, UAWMIC, IRON, CMP, LIPB, TSH, FREET3, FT4, T3, T4, FERR, VITD #### [facility] Routine Lab [address] [place] [phone] #### NATE, 125VTD #### [facility] Chemistry [address] [place] [phone] Cholesterol in HDL [Mass/Vol] 43 mg/dL Normal >39 [facility] Reference Lab Comment on above: Performed By: #### C BCDIF, UAWMIC, IRON, CMP, LIPB, TSH, FREET3, FT4, T3, T4, FERR, VITD #### [facility] Routine Lab [address] [place] [phone] #### NATE, 125VTD #### [facility] Chemistry [address] [place] [phone] Cholesterol in LDL [Mass/Vol] 117 mg/dL High <100 [facility] Reference Lab Comment on above: Performed By: #### C BCDIF, UAWMIC, IRON, CMP, LIPB, TSH, FREET3, FT4, T3, T4, FERR, VITD #### [facility] Routine Lab [address] [place], [place] [phone] #### NATE, 125VTD #### [facility] Chemistry [address] [place], [place] [phone] Cholesterol in VLDL [Mass/Vol] 18 mg/dL Normal <30 [facility] Reference Lab Comment on above: Performed By: #### C BCDIF, UAWMIC, IRON, CMP, LIPB, TSH, FREET3, FT4, T3, T4, FERR, VITD #### [facility] Routine Lab [address] [place], [place] [phone] #### NATE, 125VTD #### [facility] Chemistry [address] [place], [place] [phone] Cholesterol non HDL [Mass/Vol] 135 mg/dL High <130 [facility] Reference Lab Comment on above: Performed By: #### C BCDIF, UAWMIC, IRON, CMP, LIPB, TSH, FREET3, FT4, T3, T4, FERR, VITD #### [facility] Routine Lab [address] [place] [phone] #### NATE, 125VTD #### [facility] Chemistry [address] [place], [place] [phone] LDL:HDL Ratio 2.72 High <2.54 [facility] Reference Lab Comment on above: Performed By: #### C BCDIF, UAWMIC, IRON, CMP, LIPB, TSH, FREET3, FT4, T3, T4, FERR, VITD #### [facility] Routine Lab [address] [place] [phone] #### NATE, 125VTD #### [facility] Chemistry [address] [place] [phone] TC:HDL Ratio 4.14 Normal <5.10 [facility] Reference Lab Comment on above: Performed By: #### C BCDIF, UAWMIC, IRON, CMP, LIPB, TSH, FREET3, FT4, T3, T4, FERR, VITD #### [facility] Routine Lab [address] [place] [address] #### NATE, 125VTD #### [facility] Chemistry [address] [place], [place] [phone] Triglyceride [Mass/Vol] 91 mg/dL Normal <150 C [facility] Reference Lab Comment on above: Performed By: #### C BCDIF, UAWMIC, IRON, CMP, LIPB, TSH, FREET3, FT4, T3, T4, FERR, VITD #### [facility] Routine Lab [address] [place] [address] #### NATE, 125VTD #### [facility] Chemistry [address] [place] [address] T3on 08-10-2019 T3 133 ng/dL Normal 79-165 [facility] Reference Lab Comment on above: Performed By: #### C BCDIF, UAWMIC, IRON, CMP, LIPB, TSH, FREET3, FT4, T3, T4, FERR, VITD #### [facility] Routine Lab [address] [place], [place] [address] #### NATE, 125VTD #### [facility] Chemistry [address] [place] [address] T4on 08-10-2019 T4 [Mass/Vol] 6.2 ug/dL Normal 5.5-10.2 [facility] Comment on above: Performed By: #### C BCDIF, UAWMIC, IRON, CMP, LIPB, TSH, FREET3, FT4, T3, T4, FERR, VITD #### [facility] Routine Lab [address] [place], [place] [address] #### NATE, 125VTD #### [facility] Chemistry [address] [place], [place] [address] TSHon 08-10-2019 TSH Qn 0.018 uU/mL Low 0.270-4.20 0 [facility] Comment on above: Performed By: #### C BCDIF, UAWMIC, IRON, CMP, LIPB, TSH, FREET3, FT4, T3, T4, FERR, VITD #### [facility] Routine Lab [address] [place] [phone] #### NATE, 125VTD #### [facility] Chemistry [address] [place], [place] [address] Urinalysis with Microscopico n 08-10-2019 Bilirubin Ql (U) NEGAT Normal Negative [facility] Reference Lab Comment on above: Performed By: #### C BCDIF, UAWMIC, IRON, CMP, LIPB, TSH, FREET3, FT4, T3, T4, FERR, VITD #### [facility] Routine Lab [address] [place], [place] [address] #### NATE, 125VTD #### [facility] Chemistry [address] [place] [phone] Cast Abnormal 0 [facility] Comment on above: Result Comment: 1-3 Hyaline Cast Performed By: #### C BCDIF, UAWMIC, IRON, CMP, LIPB, TSH, FREET3, FT4, T3, T4, FERR, VITD #### [facility] Routine Lab [address] [place] [phone] #### NATE, 125VTD #### [facility] Chemistry [address] [place] [phone] Clarity (U) CLDY Abnormal Clear [facility] Comment on above: Performed By: #### C BCDIF, UAWMIC, IRON, CMP, LIPB, TSH, FREET3, FT4, T3, T4, FERR, VITD #### [facility] Routine Lab [address] [place] [phone] #### NATE, 125VTD #### [facility] Chemistry [address] [place] [address] Color (U) YEL Normal Yellow [facility] Lab Comment on above: Performed By: #### C BCDIF, UAWMIC, IRON, CMP, LIPB, TSH, FREET3, FT4, T3, T4, FERR, VITD #### [facility] Routine Lab [address] [place] [address] #### NATE, 125VTD #### [facility] Chemistry [address] [place] [address] Comments NAPP Normal [facility] Comment on above: Performed By: #### C BCDIF, UAWMIC, IRON, CMP, LIPB, TSH, FREET3, FT4, T3, T4, FERR, VITD #### [facility] Routine Lab [address] [place], [place] [id number] #### NATE, 125VTD #### [facility] Chemistry [address] [place], [place] [phone] Crystals LM Nom (Urine sed) Abnormal 0 [facility] Comment on above: Result Comment: Few Calcium Oxalate Crystal Performed By: #### C BCDIF, UAWMIC, IRON, CMP, LIPB, TSH, FREET3, FT4, T3, T4, FERR, VITD #### [facility] Routine Lab [address] [place] [address] #### NATE, 125VTD #### [facility] Chemistry [address] [place], [place] [phone] Epithelial cells LM.HPF (Urine sed) [#/Area] Normal [facility] Comment on above: Result Comment: Few Squamous Epithelial Cells Performed By: #### C BCDIF, UAWMIC, IRON, CMP, LIPB, TSH, FREET3, FT4, T3, T4, FERR, VITD #### [facility] Routine Lab [address] [place] [phone] #### NATE, 125VTD #### [facility] Chemistry [address] [place] [phone] Glucose Ql (U) NEGAT Normal Negative [facility] Comment on above: Performed By: #### C BCDIF, UAWMIC, IRON, CMP, LIPB, TSH, FREET3, FT4, T3, T4, FERR, VITD #### [facility] Routine Lab [address] [place] [phone] #### NATE, 125VTD #### [facility] Chemistry [address] [place] [phone] Hemoglobin/Blood,Ur NEGAT Normal Negative [facility] Reference Lab Comment on above: Performed By: #### C BCDIF, UAWMIC, IRON, CMP, LIPB, TSH, FREET3, FT4, T3, T4, FERR, VITD #### [facility] Routine Lab [address] [place] [phone] #### NATE, 125VTD #### [facility] Chemistry [address] [place] [phone] Ketones Ql (U) NEGAT Normal Negative [facility] Comment on above: Performed By: #### C BCDIF, UAWMIC, IRON, CMP, LIPB, TSH, FREET3, FT4, T3, T4, FERR, VITD #### [facility] Routine Lab [address] [place] [phone] #### NATE, 125VTD #### [facility] Chemistry [address] [place] [phone] Leukest TR Abnormal Negative [facility] Comment on above: Performed By: #### C BCDIF, UAWMIC, IRON, CMP, LIPB, TSH, FREET3, FT4, T3, T4, FERR, VITD #### [facility] Routine Lab [address] [place] [phone] #### NATE, 125VTD #### [facility] Chemistry [address] [place] [phone] Nitrite Ql (U) NEGAT Normal Negative [facility] Comment on above: Performed By: #### C BCDIF, UAWMIC, IRON, CMP, LIPB, TSH, FREET3, FT4, T3, T4, FERR, VITD #### [facility] Routine Lab [address] [place] [phone] #### NATE, 125VTD #### [facility] Chemistry [address] [place] [phone] pH (U) 5.0 [pH] Normal 4.5-8.0 [facility] Comment on above: Performed By: #### C BCDIF, UAWMIC, IRON, CMP, LIPB, TSH, FREET3, FT4, T3, T4, FERR, VITD #### [facility] Routine Lab [address] [place] [phone] #### NATE, 125VTD #### [facility] Chemistry [address] [place] [phone] Protein (U) [Mass/Vol] NEGAT Normal Negative [facility] Reference Lab Comment on above: Performed By: #### C BCDIF, UAWMIC, IRON, CMP, LIPB, TSH, FREET3, FT4, T3, T4, FERR, VITD #### [facility] Routine Lab [address] [place] [phone] #### NATE, 125VTD #### [facility] Chemistry [address] [place] [address] RBC (U) [#/Vol] 3 /uL Normal 0-3 [facility] Comment on above: Performed By: #### C BCDIF, UAWMIC, IRON, CMP, LIPB, TSH, FREET3, FT4, T3, T4, FERR, VITD #### [facility] Routine Lab [address] [phone] #### NATE, 125VTD #### [facility] Chemistry [address] [place] [phone] Specific [place], Ur 1.024 Normal 1.005-1 .03 0 [facility] Comment on above: Performed By: #### C BCDIF, UAWMIC, IRON, CMP, LIPB, TSH, FREET3, FT4, T3, T4, FERR, VITD #### [facility] Routine Lab [address] [place] [phone] #### NATE, 125VTD #### [facility] Chemistry [address] [place] [phone] Urine Elfego Comment NAPP Normal [facility] Reference Lab Comment on above: Performed By: #### C BCDIF, UAWMIC, IRON, CMP, LIPB, TSH, FREET3, FT4, T3, T4, FERR, VITD #### [facility] Routine Lab [address] [place] [phone] #### NATE, 125VTD #### [facility] Chemistry [address] [place] [phone] Urobilinogen Qn (U) NL Normal Normal [facility] Reference Lab Comment on above: Performed By: #### C BCDIF, UAWMIC, IRON, CMP, LIPB, TSH, FREET3, FT4, T3, T4, FERR, VITD #### [facility] Routine Lab [address] [place] [phone] #### NATE, 125VTD #### [facility] Chemistry [address] [place] [phone] WBC (Bld) [#/Vol] R610 Abnormal 0-5 [facility] Reference Lab Comment on above: Performed By: #### C BCDIF, UAWMIC, IRON, CMP, LIPB, TSH, FREET3, FT4, T3, T4, FERR, VITD #### [facility] Routine Lab [address] [place] [phone] #### NATE, 125VTD #### [facility] Chemistry [address] [phone] Urine Cultureon 08-10-2019 Bacteria identified Cx Nom (U) Specimen Desc: URINE Sp. Request/Comment: PRESRV Culture Result <10,000 CFU/ml Normal urogenital quyen Report Status 08/10/2019 FINAL Normal [facility] Lipid Panel, [place] 019 Fasting Time 12 hrs Normal [facility] Comment on above: Performed By: #### C BCDIF, UAWMIC, IRON, CMP, LIPB, TSH, FREET3, FT4, T3, T4, FERR, VITD #### [facility] Routine Lab [address] [phone] #### NATE, 125VTD #### [facility] Chemistry [address] [phone] IR TUNNELED PORT REMOVALon 1 IR TUNNELED PORT REMOVAL MEDIPORT AND TU NNELED CATHETER REMOVAL CLINICAL INDICATION: Patient finished treatment course for Lyme disease PROCEDURE: The procedure, risk and benefits were described to the patient prior to informed consent being obtained. All questions were answered. The patient was placed in a supine position on the angiographic table preliminary images of the chest reveals a right chest port with catheter coursing over the collarbone and into what appears to be the jugular vein. The tip terminates in the central circulation. The port and catheter appear to be intact. The skin is marked, prepped and draped in the usual sterile fashion. Maximal sterile technique is utilized during the entire procedure. Along the old healed incision and surrounding tissue, one percent lidocaine without epinephrine is instilled for comfort. Sharp incision is made exposing the port beneath the skin, which was then removed in its entirety along with the catheter. The pocket was copiously irrigated with sterile saline and hemostasis was achieved with electrocautery. Utilizing interrupted mattress sutures, the skin edges reapproximated and a sterile dressing was applied. The patient is discharged in stable condition having no immediate complications. IMPRESSION: Successful removal of a right chest MediPort [facility] POC INRon 06-13-2019 INR Coag (Bld) [Relative time] 1.0 {INR} [facility] Comment on above: Result Comment: Cons ulted today for Waldemar Hudson [facility]. The blood pressure is n/a and the heart rate is n/a. Does not feel dizzy or lightheaded. We reviewed medical care plan which included symptom management and evaluation along with instructions on side effects, diet, home medications and interactions. Patient did state n/a. Today's INR is 1.0 per request of Bobby Gerardo PA-C prior to procedure. Patient is aware of correct dose and answered all questions. Gave a calendar card to help keep track of the dosage schedule. Patient has our phone number in case of any problems or questions. Will recheck the INR on n/a. INR goal is n/a. Instructed patient to take dose of n/a instead of dose n/a. Performed By: #### 1 [id number] #### [facility] [address] [place], [place] [phone] Loop Puller: Carlin aJde MD C difficile PCRon 12-04-2018 C difficile PCR NCDT Normal [facility] Comment on above: Performed By: #### C DPCR #### [facility] Microbiology [address] [id number] IR INFUSAPORT INJECTIONon IR INFUSAPORT INJECTION VASCULAR PORT IN JECTION Clinical indication: Ongoing treatment for Lyme disease. MediPort does not give a blood return Procedure: The procedure, risk and benefits were described to the patient at length prior to informed consent being obtained. All questions were answered. The patient was placed in supine position on the angiography table. The port was accessed, by the interventional radiology nurse, under sterile techniques. Chest x-ray reveals a right chest MediPort with catheter traversing the course of the jugular vein and tip terminating in the central circulation. The port and catheter appear to be intact. The port flushed with some resistance and had a very sluggish blood return on examination. Digital subtraction angiography was obtained with injection of water-soluble contrast material through the port. A small stream of contrast is noted exiting the tip of the catheter consistent with catheter tip clot. TPA infusion therapy is recommended and the patient is agreeable. The port was flushed with sterile saline. Informed consent was obtained. The patient was taken to the procedure room and an infusion of 2 mg of TPA in 50 mL of normal saline infused over 2 hours was initiated. The patient was monitored during this entire procedure. Following the 2 hour infusion administration, excellent blood return was noted and no resistance was appreciated with flushing. The port was loaded with heparin and the patient was discharged in stable condition having no immediate complications. Findings: The port is in appropriate position via the right jugular vein. The catheter tip is in appropriate position in the central circulation. Impression: Contrast venography revealed a catheter tip clot. Following TPA infusion protocol, excellent blood return was reestablished Technologist: TREVER,YUMIKO,BELeonel Dictated By: BOBBY GERARDO PA-C Signed By: BOBBY GERARDO PA-C Signed Out: 09/30/18 08:04:30 [facility] Interventional Radiology Pro [place] Noteon 08-26-2018 Interventional Radiology Progress Note PT return for 10 day post medport [...] ambulate back off unit w/ walker and [facility] IR TUNNELED CENTRAL PORT HEMALATHA CEMENTon 08-15-2018 IR TUNNELED CENTRAL PORT PLACEMENT MEDIPORT UNDER ULTRASOUND AND FLUOROSCOPIC GUIDANCE CLINICAL INDICATION: [...] ultrasound image obtained during the procedure, a [place] guidewire was advanced into the central circulatory system without difficulty. The needle was exchanged by a 5-[place] dilator. At this point, additional local anesthesia [...] electrocautery. Utilizing a metal tunneler, a 8.5 [place] catheter was tunneled and advanced from the anterior chest pocket to the venous access previously made. The port was placed into the pocket and the skin was sutured by planes with absorbable suture material. The dilator and the [place] guidewire were removed and exchanged for a peel-away sheath and J-wire. After progressive dilatation of the access a 10-[place] dilator, a valved peel-away sheath was then [...] and fluoroscopic guided placement of a 8 [place] X 18 cm low profile power ProFuse port and tunnel catheter. PROCEDURES PERFORMED: Conscious sedation 30 minutes Ultrasound evaluation of right internal jugular vein. Ultrasound guided venous access. Tunneling and placement of Mediport and catheter under fluoroscopy. Technologist: TALAT Dictated By: BOBBY GERARDO PA-C Signed By: BOBBY GERARDO PA-C Signed Out: 08/15/18 09:03:36 [facility] AUTO DIFFon 08-14-2018 Basophils (Bld) [#/Vol] 0.03 x1000 Normal 0.00-0.20 [facility] Comment on above: Performed By: #### 1 10460, [id number], [id number] #### [facility] [address] [place] [address] Loop Puller: Carlin Jade MD Basos % 0.6 % [facility] Comment on above: Performed By: #### 1 07645, [id number], [id number] #### [facility] [address] [place], [place] [address] Loop Puller: Carlin Jade MD Eos Count 0.06 x1000 Normal 0.00-0.50 [facility] Comment on above: Performed By: #### 1 90789, [id number], [id number] #### [facility] [address] [place], [place] [address] Loop Puller: Carlin Jade MD Eosinophils/100 WBC (Bld) 1.2 % [facility] Comment on above: Performed By: #### 1 29749, [id number], [id number] #### [facility] [address] [place], [place] [address] Loop Puller: Carlin Jade MD Lymphocytes (Bld) [#/Vol] 1.48 x1000 Normal 1.20-4.80 [facility] Comment on above: Performed By: #### 1 32930, [id number], 959179 #### [facility] [address] [place] [address] Loop Puller: Carlin Jade MD Lymphocytes/100 WBC (Bld) 27.5 % [facility] Comment on above: Performed By: #### 1 , [id number], 698809 #### [facility] [address] [place] [address] Loop Puller: Carlin Jade MD Tift Count 0.45 x1000 Normal 0.10-1.00 [facility] Comment on above: Performed By: #### 1 , [id number], [id number] #### [facility] [address] [place] [address] Loop Puller: Carlin Jade MD Monocytes/100 WBC (Bld) 8.3 % Normal [facility] Comment on above: Performed By: #### 1 , [id number], [id number] #### [facility] [address] [place] [address] Loop Puller: Carlin Jade MD Neutrophils (Bld) [#/Vol] 3.37 x1000 Normal 1.40-8.80 [facility] Comment on above: Performed By: #### 1 , [id number], 301528 #### [facility] [address] [place] [address] Loop Puller: Carlin Jade MD Neutrophils/100 WBC (Bld) 62.4 % [facility] Comment on above: Performed By: #### 1 54613, [id number], 803457 #### [facility] Services [address] [place] [address] Loop Puller: Carlin Jade MD Consult Reporton 08-14-2018 Consult Report Patient: GRABIEL HUDSON Age: 62 years Sex: Female : 1955 Associated Diagnoses: None Author: BOBBY GERARDO PA-C Basic Information Referral source: MIKI ISAAC, LILLY, Not self. History limitation: None. Lyme disease Chief Complaint Waldemar is a nice 62-year-old female who is been referred today for insertion of MediPort to assist in her ongoing treatment for Lyme disease. Waldemar has been on oral medications under the direction of Dr. Livingston but as of late, has noted [...] Last Charted Temp Oral 36.9 degC (AUG 14:15) Resp Rate 16 br/min (AUG 14:37) SBP 131 mmHg (AUG 14:) DBP 81 mmHg (AUG 14:) SpO2 99 % (AUG 14:) Weight 82.2 kg (AUG 14:30) General: Alert [...] bowel sounds, No organomegaly. Integumentary: Warm, Dry, Willey. Neurologic: Alert, Oriented, Normal sensory, Normal motor [...] at any time. Postprocedure restrictions were discussed [facility] HEMOon 08-14-2018 DIFF? No [facility] Comment on above: Performed By: #### 1 55828, [id number], 915086 #### [facility] [address] [place], [place] [address] Loop Puller: Carlin Jade MD Erythrocyte distribution width (RBC) [Ratio] 13.4 % Normal 11.5-14.5 [facility] Comment on above: Performed By: #### 1 48519, [id number], 876089 #### [facility] [address] [place] [address] Loop Puller: Carlin Jade MD Hematocrit (Bld) [Volume fraction] 41.6 % Normal 36.0-46.0 [facility] Comment on above: Performed By: #### 1 , [id number], [id number] #### [facility] [address] [place] [address] Loop Puller: Carlin Jade MD Hemoglobin (Bld) [Mass/Vol] 14.0 g/dL Normal 12.0-16.0 [facility] Comment on above: Performed By: #### 1 , [id number], 136346 #### [facility] [address] [place] [address] Loop Puller: Carlin Jade MD MCH (RBC) [Entitic mass] 33.1 pg Normal 27.0-34.0 [facility] Comment on above: Performed By: #### 1 , [id number], 629365 #### [facility] [address] [place], [place] [address] Loop Puller: Carlin Jade MD MCHC (RBC) [Mass/Vol] 33.7 g/dL Normal 32.0-37.0 [facility] Comment on above: Performed By: #### 1 , [id number], 052035 #### [facility] [address] [place] [address] Loop Puller: Carlin Jade MD MCV (RBC) [Entitic vol] 98.3 fL Normal 80.0-100.0 [facility] Comment on above: Performed By: #### 1 , [id number], 835027 #### [facility] [address] [place] [address] Loop Puller: Carlin Jade MD Nucleated RBC (Bld) [#/Vol] 0 /100WBC [facility] Comment on above: Performed By: #### 1 , [id number], 113351 #### [facility] [address] [place] [address] Loop Puller: Carlin Jade MD Platelet mean volume (Bld) [Entitic vol] 9.2 fL Normal 7.4-10.4 [facility] Comment on above: Performed By: #### 1 75210, 0325188, 318756 #### [facility] [address] [place] [address] Loop Puller: Carlin Jade MD Platelets (Bld) [#/Vol] 202 x1000 Normal 150-450 [facility] Comment on above: Performed By: #### 1 , [id number], 506124 #### [facility] [address] [place] [address] Loop Puller: Carlin Jade MD RBC (Bld) [#/Vol] 4.23 x10 Normal 4.20-5.40 [facility] Comment on above: Result Comment: Note : RBC morphology is normal unless otherwise stated. Evaluation performed only if differential is requested. Performed By: #### 1 , [id number], 627452 #### [facility] [address] [place] [address] Loop Puller: Carlin Jade MD WBC (Bld) [#/Vol] 5.4 x10 Normal 4.5-11.0 [facility] Comment on above: Performed By: #### 1 , [id number], 315764 #### [facility] [address] [place] [address] Loop Puller: Carlin Jade MD WBC (Bld) [#/Vol] 5.4 10*3/uL Normal [facility] Comment on above: Performed By: #### 1 16569, 7508635, 904113 #### [facility] [address] [place] [address] Loop Puller: Carlin Jade MD PT INRon 08-14-2018 INR Coag (PPP) [Relative time] 1.1 {INR} [facility] Comment on above: Result Comment: Norm al reference range for INR on patients not on anticoagulant therapy: 0.9-1.1. General therapeutic range for patients on anticoagulant therapy: 2.0-3.5. Performed By: #### 1 41057, [id number], 158390 #### [facility] [address] [place], [place] [id number] Loop Puller: Carlin Jade MD Protime Patient 11.9 seconds Normal 9.7-12.7 [facility] Comment on above: Performed By: #### 1 68113, 4111176, 815771 #### [facility] [address] [place], [place] [address] Loop Puller: Carlin Jade MD Vital Signs Date Time Vital Sign Value Performing Clinician Facility 06-16-2024 14:05-0400 Diastolic blood pressure 70 mm[Hg] Aixa Ramirez MD Work Phone: [facility] 06-16-2024 14:05-0400 Systolic blood pressure 136 mm[Hg] Aixa Ramirez MD Work Phone: [facility] 06-16-2024 14:03-0400 Body height 170.2 cm Aixa Ramirez MD Work Phone: [facility] 06-16-2024 14:03-0400 Body mass index (BMI) [Ratio] 25.84 kg/m2 Aixa Ramirez MD Work Phone: [facility] 06-16-2024 14:03-0400 Body weight 74.84 kg Aixa Ramirez MD Work Phone: [facility] Comment on above: per pt 06-16-2024 14:03-0400 Heart rate 57 /min Aixa Ramirez MD Work Phone: [facility] 06-16-2024 14:03-0400 SaO2% (BldA) [Mass fraction] 97 % Aixa Ramirez MD Work Phone: [facility] 03-17-2024 13:01-0400 Diastolic blood pressure 61 mm[Hg] Lia Hope PICKER MACHINE OPERATOR.PRINCE Work Phone: [facility] 03-17-2024 13:01-0400 Heart rate 62 /min Lia Spanower PICKER MACHINE OPERATOR.DEPUTY [employer] MARSHAL Work Phone: [facility] 03-17-2024 13:01-0400 SaO2% (BldA) [Mass fraction] 98 % Lia Spanower PICKER MACHINE OPERATOR.DEPUTY FIRE MARSHAL Work Phone: [facility] 03-17-2024 13:01-0400 Systolic blood pressure 114 mm[Hg] Lia Spanower PICKER MACHINE OPERATOR.DEPUTY FIRE MARSHAL Work Phone: [facility] 01-30-2024 13:34-0400 Body mass index (BMI) [Ratio] 25.37 kg/m2 Lia Spanower PICKER MACHINE OPERATOR.DEPUTY FIRE MARSHAL Work Phone: [facility] 01-30-2024 13:34-0400 Body weight 73.48 kg Lia Spanower PICKER MACHINE OPERATOR.DEPUTY FIRE MARSHAL Work Phone: [facility] 01-30-2024 13:34-0400 Diastolic blood pressure 71 mm[Hg] Lia Spanower PICKER MACHINE OPERATOR.DEPUTY FIRE MARSHAL Work Phone: [facility] 01-30-2024 13:34-0400 Heart rate 56 /min Lia Spanower PICKER MACHINE OPERATOR.DEPUTY FIRE MARSHAL Work Phone: [facility] 01-30-2024 13:34-0400 SaO2% (BldA) [Mass fraction] 97 % Lia Spanower PICKER MACHINE OPERATOR.DEPUTY FIRE MARSHAL Work Phone: [facility] 01-30-2024 13:34-0400 Systolic blood pressure 114 mm[Hg] Lia Spanower PICKER MACHINE OPERATOR.DEPUTY FIRE MARSHAL Work Phone: [facility] 01-09-2024 10:10-0400 Diastolic blood pressure 60 mm[Hg] Antonietta Zale DO Work Phone: [facility] 01-09-2024 10:10-0400 Heart rate 72 /min Antonietta Zale DO Work Phone: [facility] 01-09-2024 10:10-0400 Respiratory rate 18 /min Antonietta Zale DO Work Phone: [facility] Comment on above: even and unlaboer 01-09-2024 10:10-0400 Systolic blood pressure 96 mm[Hg] Antonietta Alcaraz DO Work Phone: [facility] 12-31-2023 12:52-0400 Body height 170.2 cm Joan Prieto MD Work Phone: [facility] 12-31-2023 12:52-0400 Body mass index (BMI) [Ratio] 25.37 kg/m2 Joan Prieto MD Work Phone: [facility] 12-31-2023 12:52-0400 Body weight 73.48 kg Joan Prieto MD Work Phone: [facility] 12-31-2023 12:52-0400 Diastolic blood pressure 64 mm[Hg] Joan Prieto MD Work Phone: [facility] 12-31-2023 12:52-0400 Heart rate 70 /min Joan Prieto MD Work Phone: [facility] 12-31-2023 12:52-0400 SaO2% (BldA) [Mass fraction] 96 % Joan Prieto MD Work Phone: [facility] 12-31-2023 12:52-0400 Systolic blood pressure 123 mm[Hg] Joan Prieto MD Work Phone: [facility] 06-12-2023 14:42-0400 Body height 175.[address] Keren Dumont Work Phone: [facility] 06-12-2023 14:42-0400 Body mass index (BMI) [Ratio] 23.1 kg/m2 Dr. Keren Dumont Work Phone: [facility] 06-12-2023 14:42-0400 Body temperature 97.2 [degF] Dr. Keren Dumont Work Phone: [facility] 06-12-2023 14:42-0400 Body weight 71.[address] Keren Dumont Work Phone: [facility] 06-12-2023 14:42-0400 Diastolic blood pressure 84 mm[Hg] Dr. Keren Dumont Work Phone: [facility] 06-12-2023 14:42-0400 Heart rate 72 /min Dr. Keren Dumont Work Phone: [facility] 06-12-2023 14:42-0400 Respiratory rate 16 /min Dr. Keren Dumont Work Phone: [facility] 06-12-2023 14:42-0400 SaO2% (BldA) [Mass fraction] 97 % Dr. Keren Dumont Work Phone: [facility] 06-12-2023 14:42-0400 Systolic blood pressure 132 mm[Hg] Dr. Keren Dumont Work Phone: [facility] 10-23-2022 19:18-0500 Body height 172.7 cm Stiven Marte MD Work Phone: [facility] 10-23-2022 19:18-0500 Body mass index (BMI) [Ratio] 24.33 kg/m2 Stiven Marte MD Work Phone: [facility] 10-23-2022 19:18-0500 Body weight 72.58 kg Stiven Marte MD Work Phone: [facility] 06-05-2022 15:18-0400 Body height 175.[address] Keren Dumont Work Phone: [facility] Work Phone: 06-05-2022 15:18-0400 Body mass index (BMI) [Ratio] 24.7 kg/m2 Dr. Keren Dumont Work Phone: [facility] Work Phone: 06-05-2022 15:18-0400 Body temperature 98 [degF] Dr. Keren Dumont Work Phone: [facility] Work Phone: 06-05-2022 15:18-0400 Body weight 76.[address] Keren Dumont Work Phone: [facility] Work Phone: 06-05-2022 15:18-0400 Diastolic blood pressure 78 mm[Hg] Dr. Keren Dumont Work Phone: [facility] Work Phone: 06-05-2022 15:18-0400 Heart rate 68 /min Dr. Keren Dumont Work Phone: [facility] Work Phone: 06-05-2022 15:18-0400 Respiratory rate 12 /min Dr. Keren Dumont Work Phone: [facility] Work Phone: 06-05-2022 15:18-0400 SaO2% (BldA) [Mass fraction] 98 % Dr. Keren Dumont Work Phone: [facility] Work Phone: 06-05-2022 15:18-0400 Systolic blood pressure 140 mm[Hg] Dr. Keren Dumont Work Phone: [facility] Work Phone: Encounters Encounter Date Encounter Type Care Provider Facility Start: 04-27-2025 End: 04-27-[address] Keren Dumont MD Work Phone: -Laboratory Specimen Start: 04-27-2025 End: 04-27-2025 Patient encounter procedure Chela LOU -Laboratory Specimen Work Phone: Start: 04-27-2025 End: 04-27-2025 ambulatory Keren Dumont Facility:[facility] Start: 04-10-2025 End: 04-10-[address] Keren Dumont MD Work Phone: -Laboratory Specimen Start: 04-10-2025 End: 04-10-2025 Patient encounter procedure Chela Lynn BOAT RENTAL CLERK-C -Laboratory Specimen Work Phone: Start: 04-10-2025 End: 04-10-2025 ambulatory Keren Ashanti Facility:[facility] Start: 03-20-2025 End: 03-20-[address] Keren Dumont MD Work Phone: -Laboratory Specimen Start: 03-20-2025 End: 03-20-2025 Patient encounter procedure Chela Lynn BOAT RENTAL CLERK-C -Laboratory Specimen Work Phone: Start: 03-20-2025 End: 03-20-2025 ambulatory Chela Lynn BOAT RENTAL CLERK Facility:[facility] Start: 12-01-2024 End: 12-02-2024 Refill Joan Prieto MD Work Phone: Neurology Comment on above: Refill Request Start: 10-15-2024 End: 10-20-2024 Telephone encounter Bowne Lopez MD Work Phone: Neurology Comment on above: [facility] Start: 10-14-2024 End: 10-23-2024 Telephone encounter Joan Prieto MD Work Phone: Neurology Comment on above: Medication Authoriza tion (Nuedexta 20-10mg) Start: 10-01-2024 End: 10-01-2024 ambulatory Chela Lynn NP Facility:[facility] Start: 09-16-2024 ambulatory Keren Ashanti Facility :[facility] Start: 09-05-2024 End: 09-05-2024 ambulatory Chela Lynn NP Facility:[facility] Start: 08-05-2024 End: 08-05-2024 ambulatory Keren Orient Facility:[facility] Start: 06-30-2024 End: 07-17-2024 Telephone encounter Joan Prieto MD Work Phone: Neurology Comment on above: Received Outside [facility] Records ([facility] Daily Notes) Start: 06-22-2024 End: 06-25-2024 ambulatory Joan Prieto MD Work Phone: Neurology Comment on above: Prescription request Start: 06-20-2024 End: 06-25-2024 E-mail encounter from caregiver Aixa Ramirez MD Work Phone: Cardiology Start: 06-20-2024 End: 06-25-2024 Follow-up encounter Aixa Ramirez MD Work Phone: Cardiology Comment on above: visit follow up Start: 06-16-2024 End: 06-16-2024 ambulatory KEREN G ASHANTI Facility:[facility] Start: 06-16-2024 End: 06-16-2024 Patient encounter procedure Aixa Ramirez MD Work Phone: Cardiology Comment on above: Family history of bi cuspid aortic valve (Primary Dx); Hyperlipidemia, unspecified hyperlipidemia type Start: 06-16-2024 End: 06-16-2024 ambulatory KEREN G ASHANTI Facility:[facility] Start: 06-16-2024 End: 06-16-2024 Subsequent hospital visit by physician Dania Urrutia Main J1 Work Phone: Radiology Comment on above: 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] Start: 06-16-2024 End: 06-16-2024 ambulatory KEREN G ASHANTI Facility:[facility] Start: 06-03-2024 End: 06-04-2024 ambulatory Daja Leonel Jason EXPERIENCE PLANNING STRATEGIST [facility] Comment on above: Motor neuron disease (HCC) (Primary Dx); Impaired ambulation; Muscle spasticity; Impaired flexibility of lower extremity; Abnormality of gait; Right leg pain Start: 05-27-2024 End: 05-27-2024 ambulatory Daja Gomez EXPERIENCE PLANNING STRATEGIST [facility] Comment on above: Motor neuron disease (HCC) (Primary Dx); Impaired ambulation; Muscle spasticity; Impaired flexibility of lower extremity; Abnormality of gait; Right leg pain Start: 05-23-2024 End: 05-23-2024 ambulatory Daja Gomez PTA [facility] Comment on above: Motor neuron disease (HCC) (Primary Dx); Impaired ambulation; Muscle spasticity; Impaired flexibility of lower extremity; Abnormality of gait; Right leg pain Start: 05-16-2024 End: 05-16-2024 ambulatory Keren Dumont Facility:[facility] Start: 05-13-2024 End: 05-14-2024 ambulatory Daja Gomez PTA [facility] Comment on above: Motor neuron disease (HCC) (Primary Dx); Impaired ambulation; Muscle spasticity; Impaired flexibility of lower extremity; Abnormality of gait; Right leg pain Start: 05-08-2024 End: 05-08-2024 ambulatory Daja Gomez EXPERIENCE PLANNING STRATEGIST [facility] Comment on above: Motor neuron disease (HCC) (Primary Dx); Impaired ambulation; Muscle spasticity; Impaired flexibility of lower extremity; Abnormality of gait; Right leg pain Start: 05-06-2024 End: 05-07-2024 ambulatory Nathan Madrigal [facility] [place] Comment on above: Motor neuron disease (HCC) (Primary Dx); Impaired ambulation; Muscle spasticity; Impaired flexibility of lower extremity; Abnormality of gait; Right leg pain Start: 04-29-2024 End: 04-29-2024 ambulatory Nathan Madrigal [facility] [place] Comment on above: Motor neuron disease (HCC) (Primary Dx); Impaired ambulation; Muscle spasticity; Impaired flexibility of lower extremity; Abnormality of gait; Right leg pain Start: 04-25-2024 End: 04-28-2024 ambulatory Daja Gomez EXPERIENCE PLANNING STRATEGIST [facility] Comment on above: Motor neuron disease (HCC) (Primary Dx); Impaired ambulation; Muscle spasticity; Impaired flexibility of lower extremity; Abnormality of gait; Right leg pain Start: 04-22-2024 End: 04-22-2024 ambulatory Daja Gomez EXPERIENCE PLANNING STRATEGIST [facility] Comment on above: Motor neuron disease (HCC) (Primary Dx); Impaired ambulation; Muscle spasticity; Impaired flexibility of lower extremity; Abnormality of gait; Right leg pain Start: 04-18-2024 End: 04-18-2024 ambulatory Daja Gomez EXPERIENCE PLANNING STRATEGIST [facility] Comment on above: Motor neuron disease (HCC) (Primary Dx); Impaired ambulation; Muscle spasticity; Impaired flexibility of lower extremity; Abnormality of gait; Right leg pain Start: 04-15-2024 End: 04-16-2024 ambulatory Daja Gomez EXPERIENCE PLANNING STRATEGIST [facility] Comment on above: Motor neuron disease (HCC) (Primary Dx); Impaired ambulation; Muscle spasticity; Impaired flexibility of lower extremity; Abnormality of gait; Right leg pain Start: 04-11-2024 End: 04-11-2024 ambulatory Daja Gomez EXPERIENCE PLANNING STRATEGIST [facility] Comment on above: Motor neuron disease (HCC) (Primary Dx); Impaired ambulation; Muscle spasticity; Impaired flexibility of lower extremity; Abnormality of gait; Right leg pain Start: 04-08-2024 End: 04-08-2024 ambulatory [facility] Comment on above: Motor neuron disease (HCC) (Primary Dx); Impaired ambulation; Muscle spasticity; Impaired flexibility of lower extremity; Abnormality of gait; Right leg pain Start: 04-04-2024 End: 04-07-2024 ambulatory Nathan Madrigal [facility] [place] Comment on above: Motor neuron disease (HCC) (Primary Dx); Impaired ambulation; Muscle spasticity; Impaired flexibility of lower extremity; Abnormality of gait; Right leg pain Start: 04-03-2024 End: 04-03-2024 Patient encounter procedure [facility] Comment on above: Primary lateral scle rosis (HCC) (Primary Dx) Start: 04-03-2024 End: 04-03-2024 ambulatory CORI HOPE [facility] Start: 04-01-2024 End: 04-01-2024 ambulatory Daja Gomez [facility] Comment on above: Motor neuron disease (HCC) (Primary Dx); Impaired ambulation; Muscle spasticity; Impaired flexibility of lower extremity; Abnormality of gait; Right leg pain Start: 03-28-2024 End: 03-28-2024 ambulatory Daja Gomez [facility] Comment on above: Motor neuron disease (HCC) (Primary Dx); Impaired ambulation; Muscle spasticity; Impaired flexibility of lower extremity; Abnormality of gait; Right leg pain Refill Request Prescription for Nue dexta 20-10 mg capsule Start: 03-25-2024 End: 03-25-2024 ambulatory Daja Lamb [facility] Comment on above: Motor neuron disease (HCC) (Primary Dx); Impaired ambulation; Muscle spasticity; Impaired flexibility of lower extremity; Abnormality of gait; Right leg pain Start: 03-25-2024 End: 03-25-2024 Patient encounter procedure [facility] Comment on above: Primary lateral scle rosis (HCC) (Primary Dx) Start: 03-21-2024 End: 03-21-2024 ambulatory Nathan Madrigal PT [facility] Comment on above: Motor neuron disease (HCC) (Primary Dx); Impaired ambulation; Muscle spasticity; Impaired flexibility of lower extremity; Abnormality of gait; Right leg pain Start: 03-18-2024 End: 05-06-2024 Telephone encounter Lia Hope APRN.CNP Work Phone: [facility]YSICAL MEDICINE [facility] RE[facility]AB Comment on above: Medication Question Start: 03-17-2024 End: 03-17-2024 ambulatory KEREN DUMONT Facility:[facility] Start: 03-17-2024 End: 03-17-2024 Patient encounter procedure Lia Hope APRN.CNP Work Phone: [facility]INE [facility] Comment on above: Spasticity (Primary Dx); Primary lateral sclerosis (HCC); Pseudobulbar affect Start: 03-14-2024 End: 03-14-2024 ambulatory Nathan Madrigal PT [facility] Comment on above: Motor neuron disease (HCC) (Primary Dx); Impaired ambulation; Muscle spasticity; Impaired flexibility of lower extremity; Abnormality of gait; Right leg pain Start: 03-13-2024 End: 03-13-2024 Patient encounter procedure [facility] Comment on above: Primary lateral scle rosis (HCC) (Primary Dx) Start: 03-13-2024 End: 03-13-2024 ambulatory CORI HOPE Facility[facility] Start: 03-11-2024 End: 03-11-2024 ambulatory Nathan Madrigal PT [facility] [place] Comment on above: Motor neuron disease (HCC) (Primary Dx); Impaired ambulation; Muscle spasticity; Impaired flexibility of lower extremity; Abnormality of gait; Right leg pain Start: 03-10-2024 End: 03-10-2024 ambulatory NATHAN MADRIGAL Facility:[id number] Start: 03-07-2024 End: 03-07-2024 ambulatory Nathan Madrigal [facility] Comment on above: Motor neuron disease (HCC) (Primary Dx); Impaired ambulation; Muscle spasticity; Impaired flexibility of lower extremity; Abnormality of gait; Right leg pain Start: 03-04-2024 End: 03-04-2024 Patient encounter procedure [facility] Comment on above: Primary lateral scle rosis (HCC) (Primary Dx) Start: 03-04-2024 End: 03-04-2024 ambulatory Ming Peterson MD Work Phone: Pain Management Comment on above: Cortisone Injection Procedure March 18 Cortisone Injection March 18 Start: 03-03-2024 End: 03-03-2024 ambulatory Daja Lucio Jason SHAH [facility] Comment on above: Motor neuron disease (HCC) (Primary Dx); Impaired ambulation; Muscle spasticity; Impaired flexibility of lower extremity; Abnormality of gait; Right leg pain Start: 02-29-2024 End: 02-29-2024 ambulatory [facility] Mad[facility] Comment on above: Motor neuron disease (HCC) (Primary Dx); Impaired ambulation; Muscle spasticity; Impaired flexibility of lower extremity; Abnormality of gait; Right leg pain Start: 02-28-2024 End: 02-28-2024 Patient encounter procedure [facility] Comment on above: Primary lateral scle rosis (HCC) (Primary Dx) Start: 02-28-2024 End: 02-28-2024 ambulatory CORI HOPE [facility] Start: 02-26-2024 End: 02-26-2024 Patient encounter procedure Vanessa Tobar [facility] Work Phone: [facility] Therapy [facility] Comment on above: Motor neuron disease (HCC) (Primary Dx) Start: 02-26-2024 End: 02-26-2024 ambulatory Ela Fernández OTR/L Work Phone: [facility] Comment on above: ALS (amyotrophic lat eral sclerosis) (HCC) (Primary Dx) Start: 02-15-2024 End: 02-15-2024 ambulatory Ming Peterson MD Work Phone: Pain Management Comment on above: Procedure Instructio ns Arthritis of right k nee (Primary Dx) Motor neuron disease (HCC) (Primary Dx); Impaired ambulation; Muscle spasticity; Impaired flexibility of lower extremity; Abnormality of gait; Right leg pain Start: 02-15-2024 E-mail encounter fro m caregiver Ming Peterson MD Work Phone: Pain Management Start: 02-14-2024 End: 02-14-2024 Patient encounter procedure [facility] Comment on above: Primary lateral scle rosis (HCC) (Primary Dx) Start: 02-14-2024 End: 02-14-2024 ambulatory Ming Peterson MD Work Phone: Pain Management Comment on above: Right genicular nerv e block Start: 02-12-2024 End: 02-12-2024 ambulatory Nathan Madrigal PT [facility] Comment on above: Motor neuron disease (HCC) (Primary Dx); Impaired ambulation; Muscle spasticity; Impaired flexibility of lower extremity; Abnormality of gait; Right leg pain Start: 02-08-2024 End: 02-08-2024 ambulatory Daja [facility] Comment on above: Motor neuron disease (HCC) (Primary Dx); Impaired ambulation; Muscle spasticity; Impaired flexibility of lower extremity; Abnormality of gait; Right leg pain Start: 02-08-2024 End: 02-08-2024 Patient encounter procedure Ming Peterson MD Work Phone: Pain Management Comment on above: Arthritis of right k nee (Primary Dx); Primary lateral sclerosis (HCC) Start: 02-07-2024 End: 02-07-2024 Patient encounter procedure [facility] Comment on above: Primary lateral scle rosis (HCC) (Primary Dx); Acute pain of right knee Start: 02-07-2024 End: 02-07-2024 ambulatory CORI HOPE [facility] Start: 02-05-2024 End: 02-05-2024 ambulatory Daja [facility] Comment on above: Motor neuron disease (HCC) (Primary Dx); Impaired ambulation; Muscle spasticity; Impaired flexibility of lower extremity; Abnormality of gait; Right leg pain Start: 02-01-2024 ambulatory CORI HOPE Facility:1 [id number] Start: 02-01-2024 End: 02-01-2024 Subsequent hospital visit by physician Dania Lainez Work Phone: [facility] Comment on above: Acute pain of right knee [M25.561] Start: 02-01-2024 E-mail encounter kana lucio caregiver [facility] Start: 02-01-2024 Patient encounter procedure [facility] Comment on above: Instructions for you r upcoming appointment [facility] Visit Summary Start: 02-01-2024 End: 02-01-2024 ambulatory Daja [facility] Comment on above: Motor neuron disease (HCC) (Primary Dx); Impaired ambulation; Muscle spasticity; Impaired flexibility of lower extremity; Abnormality of gait; Right leg pain Start: 01-31-2024 End: 01-31-2024 Patient encounter procedure Cori [facility] Comment on above: Primary lateral scle rosis (HCC) (Primary Dx); Acute pain of right knee Start: 01-31-2024 End: 01-31-2024 ambulatory KEREN DUMONT [facility] Start: 01-30-2024 End: 01-30-2024 ambulatory JOAN PRIETO Facility:[facility] Start: 01-30-2024 End: 01-30-2024 Patient encounter procedure Lia Hope APRN.CNP Work Phone: PHYSICAL MEDICINE [facility] RE[facility]AB Comment on above: Spasticity (Primary Dx); Primary lateral sclerosis (HCC); Pseudobulbar affect; Spastic dysarthria Start: 01-29-2024 Telephone encounter Benton Bone MD Work Phone: Gastroenterology Comment on above: Orders Start: 01-29-2024 End: 01-29-2024 ambulatory Benton Silva MD Work Phone: Gastroenterology Comment on above: 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) Start: 01-29-2024 End: 01-29-2024 Telemedicine consultation with patient Benton Silva MD Work Phone: Gastroenterology Start: 01-29-2024 End: 01-29-2024 ambulatory Nathan Madrigal PT [facility] [place] Comment on above: Motor neuron disease (HCC) (Primary Dx); Impaired ambulation; Muscle spasticity; Impaired flexibility of lower extremity; Abnormality of gait; Right leg pain Start: 01-25-2024 End: 01-25-2024 ambulatory Daja Leonel Jason EXPERIENCE PLANNING STRATEGIST [facility] Comment on above: Motor neuron disease (HCC) (Primary Dx); Impaired ambulation; Muscle spasticity; Impaired flexibility of lower extremity; Abnormality of gait; Right leg pain Start: 01-24-2024 End: 01-24-2024 Patient encounter procedure [facility] Comment on above: Primary lateral scle rosis (HCC) (Primary Dx) Start: 01-24-2024 End: 01-24-2024 ambulatory KEREN DUMONT Facility:[facility] Start: 01-23-2024 End: 01-23-2024 ambulatory Russ Weber [facility] Work Phone: [facility] Comment on above: Dysarthria (Primary Dx) Start: 01-22-2024 End: 01-22-2024 ambulatory Daja Leonel Jason EXPERIENCE PLANNING STRATEGIST [facility] Comment on above: Motor neuron disease (HCC) (Primary Dx); Impaired ambulation; Muscle spasticity; Impaired flexibility of lower extremity; Abnormality of gait; Right leg pain Start: 01-21-2024 Telephone encounter Matthew ochoa MD Work Phone: Functional Medicine Start: 01-18-2024 End: 01-18-2024 ambulatory Nathan Madrigal PT [facility] [place] Comment on above: Motor neuron disease (HCC) (Primary Dx); Impaired ambulation; Muscle spasticity; Impaired flexibility of lower extremity; Abnormality of gait; Right leg pain Start: 01-17-2024 End: 01-17-2024 Patient encounter procedure [facility] Comment on above: Primary lateral scle rosis (HCC) (Primary Dx) Start: 01-17-2024 End: 01-17-2024 ambulatory CORI HOPE [facility] Start: 01-17-2024 Chart abstracting Joan sosa MD Work Phone: Neurology Start: 01-16-2024 End: 01-16-2024 ambulatory [facility] Start: 01-16-2024 End: 01-16-2024 Patient encounter procedure [facility] Comment on above: Decreased coordinati on (Primary Dx); Primary lateral sclerosis (HCC); Decreased independence with activities of daily living Start: 01-15-2024 End: 01-15-2024 ambulatory Nathan Madrigal PT [facility] [place] Comment on above: Motor neuron disease (HCC) (Primary Dx); Impaired ambulation; Muscle spasticity; Impaired flexibility of lower extremity; Abnormality of gait; Right leg pain Start: 01-11-2024 ambulatory No Pcp PICKER MACHINE OPERATOR [facility] [place] Start: 01-11-2024 Patient encounter procedure No Pcp PICKER MACHINE OPERATOR [facility] [place] Start: 01-10-2024 End: 01-10-2024 ambulatory RICARDOEvangelista JAYY [facility] Start: 01-10-2024 End: 01-10-2024 Patient encounter procedure Cori [facility] Comment on above: Primary lateral scle rosis (HCC) (Primary Dx) Start: 01-09-2024 End: 01-09-2024 ambulatory JOAN PRIETO Facility:[facility] Start: 01-09-2024 End: 01-09-2024 Patient encounter procedure Bowen Quiroz [facility] Work Phone: [facility] Speech Therapy Comment on above: Dysarthria (Primary Dx); Primary lateral sclerosis (HCC); Dysphagia, unspecified type Start: 01-09-2024 End: 01-09-2024 ambulatory JOAN PRIETO Facility:[facility] Start: 01-09-2024 End: 01-09-2024 Nutrition therapy Clutch Operator Als Work Phone: [facility] Comment on above: Nutrition Assessment Primary lateral scle rosis (HCC) Start: 01-09-2024 End: 01-09-2024 ambulatory Lia Napier PT Work Phone: [facility] Physical Therapy Start: 01-09-2024 End: 01-09-2024 Patient encounter procedure Lia Napier PT Work Phone: [facility] Physical Therapy Comment on above: Motor neuron disease (HCC) (Primary Dx); Primary lateral sclerosis (HCC); Impaired ambulation; Muscle spasticity; Impaired flexibility of lower extremity; Abnormality of gait; Right leg pain Decreased independen ce with activities of daily living (Primary Dx); Primary lateral sclerosis (HCC); Decreased coordination Primary lateral scle rosis (HCC) Start: 01-07-2024 End: 01-08-2024 ambulatory Daja Lamb Physical [facility] Comment on above: Motor neuron disease (HCC) (Primary Dx); Impaired ambulation; Muscle spasticity; Impaired flexibility of lower extremity; Abnormality of gait; Right leg pain Start: 01-04-2024 E-mail encounter kana m caregiver Antonietta Zasagrario COOK Work Phone: Neurology Start: 01-04-2024 Patient encounter procedure Antonietta Alcaraz DO Work Phone: Neurology Comment on above: ALS Team Clinic appo intment pre clinic questionaire. Start: 01-03-2024 End: 01-03-2024 Patient encounter procedure [facility] Comment on above: Primary lateral scle rosis (HCC) (Primary Dx) Start: 01-03-2024 End: 01-03-2024 ambulatory CORI HOPE Facility[facility] Start: 01-03-2024 End: 01-03-2024 ambulatory NATHAN MADRIGAL Facility:[id number] Start: 01-02-2024 End: 01-02-2024 ambulatory Nathan Madrigal PT [facility] Physical Therapy [place] Comment on above: Motor neuron disease (HCC) (Primary Dx); Impaired ambulation; Muscle spasticity; Impaired flexibility of lower extremity; Abnormality of gait; Right leg pain Start: 01-02-2024 End: 01-02-2024 ambulatory [facility] Work Phone: Start: 01-02-2024 End: 01-02-2024 Patient encounter procedure [facility], [facility] Start: 01-01-2024 Orders Only Aixa Ramirez MD Work Phone: Cardiology Comment on above: Congenital cardiovas cular disorder (Primary Dx) Start: 12-31-2023 End: 12-31-2023 ambulatory DANIEL BASIN Facility:[facility] Start: 12-31-2023 End: 12-31-2023 Patient encounter procedure Joan Prieto MD Work Phone: Neurology Comment on above: Primary lateral scle rosis (HCC) (Primary Dx); Pseudobulbar affect Start: 12-28-2023 End: 12-28-2023 ambulatory Nathan Madrigal PT [facility] Physical Therapy [place] Comment on above: Motor neuron disease (HCC) (Primary Dx); Impaired ambulation; Muscle spasticity; Impaired flexibility of lower extremity; Abnormality of gait; Right leg pain Start: 12-27-2023 End: 12-27-2023 Patient encounter procedure Cori [facility] Comment on above: Primary lateral scle rosis (HCC) (Primary Dx) Start: 12-27-2023 End: 12-27-2023 [facility] Start: 12-21-2023 End: 12-21-2023 ambulatory [facility] Comment on above: Motor neuron disease (HCC) (Primary Dx); Impaired ambulation; Muscle spasticity; Impaired flexibility of lower extremity; Abnormality of gait; Right leg pain Start: 12-20-2023 End: 12-20-2023 [facility] Start: 12-20-2023 End: 12-20-2023 Patient encounter procedure Cori [facility] Comment on above: Primary lateral scle rosis (HCC) (Primary Dx) Start: 12-19-2023 End: 12-19-2023 ambulatory Matthew Gallegos MD Work Phone: Functional Medicine Comment on above: Lyme disease (Primar y Dx); Mold exposure; Chronic constipation Start: 12-19-2023 End: 12-19-2023 Telemedicine consultation with patient Matthew Gallegos MD Work Phone: [facility] Start: 12-18-2023 End: 12-19-2023 ambulatory Nathan Madrigal [facility] Physical Therapy [place] Comment on above: Motor neuron disease (HCC) (Primary Dx); Impaired ambulation; Muscle spasticity; Impaired flexibility of lower extremity; Abnormality of gait; Right leg pain Start: 12-14-2023 End: 12-14-2023 ambulatory Nathan Madrigal [facility] Physical [facility] Fat[facility] Comment on above: Motor neuron disease (HCC) (Primary Dx); Impaired ambulation; Muscle spasticity; Impaired flexibility of lower extremity; Abnormality of gait; Right leg pain Start: 12-13-2023 End: 12-13-2023 Patient encounter procedure Cori [facility] Comment on above: Primary lateral scle rosis (HCC) (Primary Dx); Chronic pain of right knee Start: 12-13-2023 End: 12-13-2023 ambulatory CORI HOPE [facility] Start: 12-11-2023 End: 2023 ambulatory Daja Gomez [facility] Comment on above: Motor neuron disease (HCC) (Primary Dx); Impaired ambulation; Muscle spasticity; Impaired flexibility of lower extremity; Abnormality of gait; Right leg pain Start: 12-04-2023 End: 12-04-2023 Patient encounter procedure Cori [facility] Comment on above: Primary lateral scle rosis (HCC) (Primary Dx) Start: 12-04-2023 End: 12-04-2023 ambulatory CORI HOPE [facility] Start: 11-30-2023 End: 11-30-2023 ambulatory DAJA GOMEZ Facility:[id number] Start: 11-27-2023 End: 11-27-2023 ambulatory SELF [facility] Start: 11-27-2023 End: 11-27-2023 Patient encounter procedure Cori [facility] Comment on above: Primary lateral scle rosis (HCC) (Primary Dx) Start: 11-27-2023 End: 11-27-2023 ambulatory Nathan Lamb [facility] [place] Comment on above: Motor neuron disease (HCC) (Primary Dx); Impaired ambulation; Muscle spasticity; Impaired flexibility of lower extremity; Abnormality of gait; Right leg pain Start: 11-22-2023 End: 11-22-2023 ambulatory [facility] Work Phone: Start: 11-22-2023 End: 11-22-2023 Patient encounter procedure [facility] Start: 11-20-2023 End: 11-21-2023 ambulatory Nathan Lamb [facility] [place] Comment on above: Motor neuron disease (HCC) (Primary Dx); Impaired ambulation; Muscle spasticity; Impaired flexibility of lower extremity; Abnormality of gait; Right leg pain Start: 11-15-2023 End: 11-15-2023 ambulatory Daja Gomez PTA [facility] [place] Comment on above: Motor neuron disease (HCC) (Primary Dx); Impaired ambulation; Muscle spasticity; Impaired flexibility of lower extremity; Abnormality of gait; Right leg pain Start: 11-13-2023 End: 11-13-2023 ambulatory Daja Gomez EXPERIENCE PLANNING STRATEGIST [facility] [place] Comment on above: Motor neuron disease (HCC) (Primary Dx); Impaired ambulation; Muscle spasticity; Impaired flexibility of lower extremity; Abnormality of gait; Right leg pain Start: 11-12-2023 End: 11-12-2023 ambulatory DANIEL PAEZ Facility:[facility] Start: 11-12-2023 End: 11-12-2023 Patient encounter procedure Rocio Dimasi Work Phone: [facility] Comment on above: Primary lateral scle rosis (HCC) (Primary Dx); Motor neuron disease (HCC); History of Lyme disease Start: 11-09-2023 End: 11-09-2023 ambulatory Daja Gomez EXPERIENCE PLANNING STRATEGIST [facility] [place] Comment on above: Motor neuron disease (HCC) (Primary Dx); Impaired ambulation; Muscle spasticity; Impaired flexibility of lower extremity; Abnormality of gait; Right leg pain Start: 11-07-2023 End: 11-07-2023 ambulatory NATHAN Lucio PETER Facility:[id number] Start: 11-02-2023 End: 11-02-2023 ambulatory [facility] [place] Comment on above: Motor neuron disease (HCC) (Primary Dx); Impaired ambulation; Muscle spasticity; Impaired flexibility of lower extremity; Abnormality of gait; Right leg pain Start: 10-30-2023 End: 10-31-2023 [facility]ulatory [facility] [place] Comment on above: Motor neuron disease (HCC) (Primary Dx); Impaired ambulation; Muscle spasticity; Impaired flexibility of lower extremity; Abnormality of gait; Right leg pain Start: 10-26-2023 End: 10-26-2023 ambulatory Daja Leonel Gomez [facility] [place] Comment on above: Motor neuron disease (HCC) (Primary Dx); Impaired ambulation; Muscle spasticity; Impaired flexibility of lower extremity; Abnormality of gait; Right leg pain Start: 10-23-2023 End: 10-23-2023 ambulatory Daja Leonel Gomez [facility] [place] Comment on above: Motor neuron disease (HCC) (Primary Dx); Impaired ambulation; Muscle spasticity; Impaired flexibility of lower extremity; Abnormality of gait; Right leg pain Start: 10-17-2023 End: 10-17-2023 ambulatory [facility] Work Phone: Start: 10-17-2023 End: 10-17-2023 Patient encounter procedure [facility] Start: 10-17-2023 End: 10-17-2023 ambulatory DAJA Leonel JASON Facility:[id number] Start: 10-16-2023 End: 10-16-2023 ambulatory Daja Leonel Gomez [facility] [place] Comment on above: Motor neuron disease (HCC) (Primary Dx); Impaired ambulation; Muscle spasticity; Impaired flexibility of lower extremity; Abnormality of gait; Right leg pain Start: 10-15-2023 End: 10-15-2023 ambulatory DAJA Leonel JASON Facility:[id number] Start: 10-12-2023 End: 10-12-2023 ambulatory Daja Lamb [facility] [place] Comment on above: Motor neuron disease (HCC) (Primary Dx); Impaired ambulation; Muscle spasticity; Impaired flexibility of lower extremity; Abnormality of gait; Right leg pain Start: 10-10-2023 End: 10-10-2023 ambulatory DAJA GOMEZ Facility:[id number] Start: 10-09-2023 End: 10-09-2023 ambulatory Daja Lamb [facility] [place] Comment on above: Motor neuron disease (HCC) (Primary Dx); Impaired ambulation; Muscle spasticity; Impaired flexibility of lower extremity; Abnormality of gait; Right leg pain Start: 10-07-2023 ambulatory Daniel Paez DO Work Phone: Functional Medicine Comment on above: Incorrect IIGeneX Te st Requisition Form Start: 10-05-2023 End: 10-05-2023 ambulatory Daja Lamb [facility] [place] Comment on above: Motor neuron disease (HCC) (Primary Dx); Impaired ambulation; Muscle spasticity; Impaired flexibility of lower extremity; Abnormality of gait; Right leg pain Start: 10-03-2023 End: 10-03-2023 ambulatory NATHAN MADRIGAL Facility:[id number] Start: 09-28-2023 ambulatory Daniel Paez DO Work Phone: Functional Medicine Comment on above: Test kits Start: 08-11-2023 Refill Daniel Paez DO Work Phone: Functional Medicine Comment on above: Refill Request Start: 07-03-2023 End: 07-03-2023 ambulatory Daniel Paez DO Work Phone: Functional Medicine Comment on above: Allergic fungal sinu sitis (Primary Dx); Clostridioides difficile carrier Start: 07-03-2023 End: 07-03-2023 Telemedicine consultation with patient Daniel Paez DO Work Phone: [facility] Start: 06-27-2023 End: 06-27-[address] Keren Dumont Work Phone: [facility] Work Phone: Start: 06-27-2023 End: 06-27-[address] Keren Dumont Work Phone: [facility], [facility] Start: 06-12-2023 End: 06-12-[address] Keren Dumont Work Phone: [facility] Work Phone: Start: 06-10-2023 Refill Daniel Romovan DO Work Phone: Functional Medicine Comment on above: Refill Request Start: 04-13-2023 End: 04-13-[address] Keren Dumont Work Phone: [facility] Work Phone: Start: 04-13-2023 End: 04-13-[address] Keren Dumont Work Phone: [facility]-Physical Therapy Work Phone: Start: 04-13-[address] Smitha Dumont Work Phone: [facility]-Physical Therapy Work Phone: Start: 03-30-2023 Refill Daniel Annelivan DO Work Phone: Functional Medicine Comment on above: Refill Request Start: 03-13-2023 End: 03-13-2023 ambulatory Daniel Paez DO Work Phone: Functional Medicine Comment on above: Intestinal dysbiosis (Primary Dx); Non-seasonal allergic rhinitis due to fungal spores; Motor neuron disease (HCC); History of Lyme disease Start: 03-13-2023 End: 03-13-2023 Telemedicine consultation with patient Daniel Paez DO Work Phone: [facility] Start: 02-21-2023 Registered Recurring [facility] Therapy Start: 02-19-2023 End: 02-19-2023 ambulatory [facility] Work Phone: Start: 02-19-2023 End: 02-19-2023 Patient encounter procedure [facility] Start: 01-17-2023 End: 01-17-2023 Discharged Recurring [facility]-Physical Therapy Start: 11-15-2022 Refill Daniel Paez DO Work Phone: Functional Medicine Start: 11-13-2022 End: 11-13-2022 ambulatory Daniel Paez DO Work Phone: Functional Medicine Comment on above: Candidal enteritis ( Primary Dx); Mold exposure; Allergic fungal sinusitis; Vitamin deficiency Start: 11-13-2022 End: 11-13-2022 Telemedicine consultation with patient Daniel Paez DO Work Phone: [facility] Start: 10-23-2022 ambulatory STIVEN MARTE Facility:[facility] Start: 10-23-2022 End: 10-23-2022 Subsequent hospital visit by physician Stiven Marte MD Work Phone: [facility] [place] Comment on above: Arrived Start: 09-28-2022 [facility] Start: 09-19-2022 ambulatory Daniel Paez DO Work Phone: Functional Medicine Comment on above: [place] Test Re sults Start: 08-31-[address] Smitha Dumont Work Phone: [facility]-Physical Therapy Start: 08-22-2022 End: 08-22-[address] Keren Dumont Work Phone: [facility] Work Phone: Start: 08-22-2022 End: 08-22-[address] Keren Dumont Work Phone: [facility]-Outpatient Breast Imaging Start: 08-04-2022 End: 08-04-2022 ambulatory [facility] Work Phone: [facility] Start: 08-04-2022 End: 08-04-2022 FQHC visit, estab pt [facility] ED Work Phone: Functional Medicine Comment on above: Established Patient Start: 07-21-2022 ambulatory Daniel Paez DO Work Phone: [facility] Start: 07-21-2022 Patient encounter procedure Daniel Paez DO Work Phone: Functional Medicine Comment on above: Referral needed for Dr. Stiven Marte, Neurologist Start: 07-18-2022 End: 07-18-2022 ambulatory Daniel Paez DO Work Phone: Functional Medicine Comment on above: Primary lateral scle rosis (HCC) (Primary Dx); Irritable bowel syndrome with both constipation and diarrhea; Dysphagia, unspecified type; Dysarthria; Gait instability; H/O Clostridium difficile infection Start: 07-18-2022 End: 07-18-2022 Telemedicine consultation with patient Daniel Paez DO Work Phone: [facility] Start: 06-29-[address] Smitha Dumont Work Phone: [facility]-Physical Therapy Start: 06-29-2022 End: 06-29-[address] Keren Dumont Work Phone: [facility] Work Phone: Start: 06-29-2022 End: 06-29-[address] Keren Dumont Work Phone: [facility], [facility] Start: 06-09-2022 End: 06-09-[address] Keren Dumont Work Phone: [facility] Start: 06-05-2022 End: 06-05-[address] Keren Dumont Work Phone: [facility] Internal Medicine Procedures Date Procedure Procedure Detail Performing Clinician Start: 06-16-2024 Radiologic exam ches t 2 views Aixa Ramirez MD Work Phone: Start: 06-16-2024 Lipid 1996 panel - S peyman or Plasma Xr J1 Work Phone: Start: 02-01-2024 Radiologic examinati on knee 1/2 views Cori Chowdhury Sanjay Start: 08-22-2022 Dual energy X-ray absorptiometry Dr. Keren Dumont Work Phone: Start: 08-22-2022 Screening mammography Torri Dumont Work Phone: Start: 06-05-2020 Lipid 1996 panel - S peyman or Plasma Daniel Paez DO Work Phone: Start: 10-01-2014 Colonoscopy Daniel nicole DO Work Phone: Start: 08-25-2014 Mammography Daniel nicole DO Work Phone: Plan of Treatment Date Care Activity Detail Author Start: 06-16-2029 Lipid panel Lipid Screening [facility] Start: 2028 RSV Vaccine (1 - 1-dose 75+ series) RSV Vaccine (1 - 1-dose 75+ series) [facility] Start: 06-16-2027 Diabetes Screening Diabetes Screening [facility] Start: 07-04-2025 Screening for malignant neoplasm of colon Cologuard (FIT-DNA) [facility] Start: 06-05-2025 Lipid 1996 panel - Serum or Plasma Lipid Screening [facility] Start: 06-05-2025 Lipid panel Lipid Screening [facility] Start: 06-05-2025 LIPID SCREEN LIPID SCREEN [facility] Start: 05-13-2025 DIABETES SCREEN DIABETES SCREEN [facility] Start: 05-13-2025 Diabetes Screening Diabetes Screening [facility] Start: 10-22-2024 End: 10-22-2024 Nursing evaluation of patient and report 10/22/2024 8:25 AM EST Nurse Visit [facility] [address] [id number] Pedro uLis, Nurse [address] [place] [address] ALS TEAM CLINIC - EST [facility] Comment on above: ALS TEAM CLINIC - EST Start: 10-22-2024 End: 10-22-[address] [facility] Comment on above: ALS TEAM CLINIC - EST Start: 10-01-2024 Colonoscopy COLONOSCOPY [facility] Start: 10-01-2024 COLORECTAL CANCER SCREENING COLORECTAL CANCER SCREENING [facility] Start: 10-01-2024 Screening for malignant neoplasm of colon [facility] Start: 09-03-2024 Advance Directive Discussion Advance Directive Discussion [facility] Start: 08-13-2024 Tetanus vaccination TETANUS [facility] Start: 08-13-2024 Urine microalbumin profile [facility] Start: 07-28-2024 End: 07-28-2024 Patient encounter procedure 07/28/2024 9:00 AM EST Office Visit Cardiology [address] [place] [id number] Manny Roberto MD [address], [address] [place], [place] [id number] new pt consult Cardiology Comment on above: new pt consult Start: 07-09-2024 End: 07-09-2024 Nursing evaluation of patient and report 07/09/2024 10:40 AM EST Nurse Visit [facility] [address] [id number] Als, Nurse [address] [place] [address] [facility] TEAM CLINIC -EST [facility] Comment on above: [facility] TEAM [facility] -EST Start: 07-09-2024 End: 07-09-2024 Patient encounter procedure [facility] Speech Therapy Comment on above: [facility] TEAM [facility] -EST Start: 07-02-2024 End: 07-02-2024 Patient encounter procedure 07/02/2024 3:30 PM EDT Office Visit Neurology [address] [id number] Joan Prieto MD [address] [place] [address] ALS Follow up Neurology Comment on above: ALS Follow up Start: 06-16-2024 End: 08-16-2024 CBC W Auto Differential panel - Blood COMPLETE BLOOD COUNT AND DIFFERENTIAL Lab Routine Congenital cardiovascular disorder Expected: 06/16/2024, Expires: 08/16/2024 [facility] Comment on above: Expected: 06/16/2024, Expires: Start: 06-16-2024 End: 08-16-2024 Comprehensive metabolic 2000 panel - Serum or Plasma COMPREHENSIVE METABOLIC PANEL Lab Routine Congenital cardiovascular disorder Expected: 06/16/2024, Expires: 08/16/2024 [facility] Comment on above: Expected: 06/16/2024, Expires: Start: 06-16-2024 End: 08-16-2024 Lipid 1996 panel - Serum or Plasma LIPID PANEL BASIC Lab Routine Congenital cardiovascular disorder Expected: 06/16/2024, Expires: 08/16/2024 [facility] Comment on above: Expected: 06/16/2024, Expires: Start: 06-16-2024 End: 08-16-2024 Natriuretic peptide.B prohormone N-Terminal [Mass/volume] in Serum or Plasma NT PRO BNP Lab Routine Congenital cardiovascular disorder Expected: 06/16/2024, Expires: 08/16/2024 [facility] Comment on above: Expected: 06/16/2024, Expires: Start: 06-16-2024 End: 06-16-2024 Patient encounter procedure 06/16/2024 1:15 PM EDT Office Visit Cardiology [address] [place] [address] Aixa Ramirez MD [address] [phone] Congenital Bicuspid, 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, Don - [phone] Cardiology Comment on above: Congenital Bicuspid, scheduled with spou se Don - [phone] Start: 06-16-2024 End: 06-16-2024 ambulatory Cardiology Comment on above: Congenital Bicuspid, scheduled with spou se Don - [phone] Start: 06-16-2024 End: 06-16-2024 Patient encounter procedure Cardiology Comment on above: Congenital Bicuspid, scheduled with spou se Don - [phone] Start: 06-06-2024 End: 06-06-2024 ambulatory [facility] [place] Comment on above: right knee and hip right knee and hi p RE- EVAL Start: 06-03-2024 End: 06-03-2024 ambulatory 06/03/2024 3:30 PM EDT OT/PT/Speech [facility] [place] [address] [place] [address] Daja Gomez M, EXPERIENCE PLANNING STRATEGIST right knee and hip [facility] [place] Comment on above: right knee and hip Start: 05-30-2024 End: 05-30-2024 ambulatory 05/30/2024 3:30 PM EDT OT/PT/Speech Visit [facility] [place] [address] [place] [address] Daja Gomez M, EXPERIENCE PLANNING STRATEGIST right knee and hip [facility] [place] Comment on above: right knee and hip Start: 05-27-2024 End: 05-27-2024 ambulatory 05/27/2024 1:15 PM EDT OT/PT/Speech Visit [facility] [place] [address] [place] [address] Daja Gomez M, EXPERIENCE PLANNING STRATEGIST right knee and hip [facility] [place] Comment on above: right knee and hip Start: 05-23-2024 End: 05-23-2024 ambulatory 05/23/2024 3:30 PM EDT OT/PT/Speech Visit [facility] [place] [address] [place] [address] Daja Gomez, EXPERIENCE PLANNING STRATEGIST right knee and hip [facility] [place] Comment on above: right knee and hip Start: 05-20-2024 End: 05-20-2024 ambulatory 05/20/2024 3:30 PM EDT OT/PT/Speech Visit [facility] [place] [address] [facility] [place] [address] Daja Gomez M, EXPERIENCE PLANNING STRATEGIST right knee and hip [facility] [place] Comment on above: right knee and hip Start: 05-13-2024 End: 05-13-2024 ambulatory 05/13/2024 3:30 PM EDT OT/PT/Speech Visit [facility] [place] [address] [place] [address] Daja Gomez, EXPERIENCE PLANNING STRATEGIST right knee and hip [facility] [place] Comment on above: right knee and hip Start: 05-09-2024 End: 05-09-2024 ambulatory [facility] Comment on above: RIGHT HIP AND KNEE right knee and hip Start: 05-08-2024 End: 05-08-2024 ambulatory 05/08/2024 3:30 PM EDT OT/PT/Speech Visit [facility] [place] [address] [place] [address] Daja Gomez, EXPERIENCE PLANNING STRATEGIST right knee and hip [facility] [place] Comment on above: right knee and hip Start: 05-07-2024 End: 05-07-2024 Patient encounter procedure [facility] Comment on above: BOTOX note not complete BOTOX Start: 05-06-2024 End: 05-06-2024 ambulatory [facility] [place] Comment on above: RIGHT HIP AND KNEE right knee and hi p re- eval Start: 05-04-2024 Covid-19 Vaccine ( season) Covid-19 Vaccine ( season) [facility] Start: 05-04-2024 Covid-19 Vaccine ( season) Covid-19 Vaccine ( season) [facility] Start: 05-04-2024 Influenza vaccination [facility] Start: 05-02-2024 End: 05-02-2024 ambulatory 05/02/2024 3:30 PM EDT OT/PT/Speech [facility] [address] [place] [address] Daja Gomez, EXPERIENCE PLANNING STRATEGIST RIGHT HIP AND KNEE [facility] [place] Comment on above: RIGHT HIP AND KNEE Start: 05-01-2024 End: 05-01-2024 Patient encounter procedure [facility] Comment on above: Knee pain ACUPUNCTURE Start: 04-30-2024 End: 04-30-2024 Nursing evaluation of patient and report 04/30/2024 9:55 AM EDT Nurse Visit [facility] [address] [address] Als, Nurse [address] [place] [address] [facility] Comment on above: ALS NEW Start: 04-30-2024 End: 04-30-2024 Nutrition therapy 04/30/2024 9:[address] [facility] [address] [address] Pedro Luis, Clutch Operator [address] [address] [facility] Comment on above: ALS NEW Start: 04-30-2024 End: 04-30-[address] [facility] Comment on above: ALS NEW Start: 04-29-2024 End: 04-29-2024 ambulatory 04/29/2024 1:30 PM EDT OT/PT/Speech [facility] [place] [address] [place] [address] Nathan Madrigal, PT RIGHT HIP AND KNEE [facility] [place] Comment on above: RIGHT HIP AND KNEE Start: 04-25-2024 End: 04-25-2024 ambulatory 04/25/2024 3:30 PM EDT OT/PT/Speech [facility] [address] [place] [address] Daja Gomez, EXPERIENCE PLANNING STRATEGIST RIGHT HIP AND KNEE [facility] Comment on above: RIGHT HIP AND KNEE Start: 04-24-2024 End: 04-24-2024 Patient encounter procedure [facility] Comment on above: Knee pain ACUPUNCTURE Start: 04-22-2024 End: 04-22-2024 ambulatory 04/22/2024 3:30 PM EDT OT/PT/Speech Visit [facility] [address] [place] [address] Daja Gomez, EXPERIENCE PLANNING STRATEGIST RIGHT HIP AND KNEE [facility] Comment on above: RIGHT HIP AND KNEE Start: 04-18-2024 End: 04-18-2024 ambulatory 04/18/2024 3:30 PM EDT OT/PT/Speech Visit [facility] [address] [place] [address] Daja Gomez, EXPERIENCE PLANNING STRATEGIST RIGHT HIP AND KNEE [facility] Comment on above: RIGHT HIP AND KNEE Start: 04-17-2024 End: 04-17-2024 Patient encounter procedure [facility] Comment on above: Knee pain ACUPUNCTURE Start: 04-15-2024 End: 04-15-2024 ambulatory 04/15/2024 3:30 PM EDT OT/PT/Speech Visit [facility] [address] [place] [address] Daja Gomez M, EXPERIENCE PLANNING STRATEGIST RIGHT HIP AND KNEE [facility] Comment on above: RIGHT HIP AND KNEE Start: 04-11-2024 End: 04-11-2024 ambulatory 04/11/2024 2:45 PM EDT OT/PT/Speech Visit [facility] [address] [place] [address] Daja Gomez, EXPERIENCE PLANNING STRATEGIST RIGHT HIP AND KNEE [facility] Comment on above: RIGHT HIP AND KNEE Start: 04-10-2024 End: 04-10-2024 Patient encounter procedure [facility] Comment on above: Knee pain ACUPUNCTURE Start: 04-08-2024 End: 04-08-2024 ambulatory 04/08/2024 3:30 PM EDT OT/PT/Speech Visit [facility] [address] [place] [address] Daja Gomez, EXPERIENCE PLANNING STRATEGIST RIGHT HIP AND KNEE [facility] Comment on above: RIGHT HIP AND KNEE Start: 04-04-2024 End: 04-04-2024 ambulatory [facility] Comment on above: left hip and knee right hip and knee right hip and kne e re- eval Start: 04-03-2024 End: 04-03-2024 Patient encounter procedure 04/03/2024 3:00 PM EDT Office Visit [facility] [address] [place] [address] Cori Hope R Ac [address] [place] [address] Knee pain [facility] Comment on above: Knee pain Start: 04-01-2024 End: 04-01-2024 ambulatory [facility] [place] Comment on above: left hip and knee right hip and knee Start: 03-28-2024 End: 03-28-2024 ambulatory [facility] [place] Comment on above: left hip and knee right hip and knee Start: 03-25-2024 End: 03-25-2024 ambulatory [facility] [place] Comment on above: left hip and knee right hip and knee Start: 03-25-2024 End: 03-25-2024 Patient encounter procedure 03/25/2024 11:00 AM EDT Office Visit [facility] [address] [place] [address] Cori Hope R Ac [address] [place] [address] Knee pain [facility] Comment on above: Knee pain Start: 03-21-2024 End: 03-21-2024 ambulatory [facility] [place] Comment on above: left hip and knee right hip and knee Start: 03-20-2024 End: 03-20-2024 Patient encounter procedure [facility] Comment on above: Joint pain ACUPUNCTURE Start: 03-18-2024 End: 03-18-2024 Admission to same day surgery center 03/18/2024 12:01 PM EDT - 03/18/2024 12:30 PM EDT Surgery [facility] [address] [place] [address] Ming ePterson MD [address] [facility] [id number] [place] [address] INJECTION(S),ANESTHETIC AGENT(S) AND/OR STEROID GENICULAR NERVE BRANCHES [facility] Comment on above: INJECTION(S),ANESTHETIC AGENT(S) AND/OR STEROID GENICULAR NERVE BRANCHES Start: 03-18-2024 End: 03-18-2024 Injection aa&/strd genicular nrv branches w/img INJECTION(S),ANESTHETIC AGENT(S) AND/OR STEROID GENICULAR NERVE BRANCHES Arthritis of right knee 03/18/2024 12:01 PM EDT ME OR Start: 03-18-2024 Subsequent hospital visit by physician 03/18/2024 12:01 PM EDT Hospital Encounter [facility] [address] [place] [address] Ming Peterson MD [address] [facility] [id number] [place] [address] Arthritis of right knee [M17.11] [facility] Comment on above: Arthritis of right knee [M17.11] Start: 03-17-2024 End: 03-17-2024 Patient encounter procedure 03/17/2024 12:40 PM EDT Office Visit [facility] [address] [address] Lia Hope, PICKER MACHINE OPERATOR.DEPUTY FIRE MARSHAL [address] [place] [address] 6 week follow up [facility] Comment on above: 6 week follow up Start: 03-14-2024 End: 03-14-2024 ambulatory [facility] [place] Comment on above: left hip and knee right hip and knee Start: 03-13-2024 End: 03-13-2024 Patient encounter procedure [facility] Comment on above: Joint pain ACUPUNCTURE Start: 03-11-2024 End: 03-11-2024 ambulatory [facility] [place] Comment on above: left hip and knee right hip and knee Start: 03-07-2024 End: 03-07-2024 ambulatory [facility] [place] Comment on above: left hip and knee right hip and knee Start: 03-04-2024 End: 03-04-2024 Patient encounter procedure [facility] Comment on above: Knee pain and spasticity ACUPUNCTURE Start: 03-03-2024 End: 03-03-2024 ambulatory [facility] [place] Comment on above: left hip and knee right hip and knee* [id number]* Start: 02-29-2024 End: 02-29-2024 ambulatory [facility] [place] Comment on above: right knee and hip right knee and h ip re- eval Start: 02-28-2024 End: 02-28-2024 Patient encounter procedure 02/28/2024 3:00 PM EDT Office Visit [facility] [address] [place] [address] Cori Hope R Ac [address] [place] [address] Joint pain [facility] Comment on above: Joint pain Start: 02-26-2024 End: 02-26-2024 ambulatory [facility] Comment on above: right knee and hip ATC EVAL [ALS] Start: 02-26-2024 End: 02-26-2024 Patient encounter procedure 02/26/2024 10:00 AM EDT Office Visit Peds Therapy Services [facility] Randy [address] [place] [address] Vanessa Tobar [facility] [address] [place] [address] ATC EVAL [ALS] [facility] Comment on above: ATC EVAL [ALS] Start: 02-15-2024 End: 02-15-2024 ambulatory 02/15/2024 2:00 PM EDT OT/PT/Speech Visit [facility] [address] [place] [address] Daja Gomez, EXPERIENCE PLANNING STRATEGIST right knee and hip [facility] Comment on above: right knee and hip Start: 02-14-2024 End: 02-14-2024 Patient encounter procedure 02/14/2024 3:30 PM EDT Office Visit [facility] [address] [place] [address] Cori Hope R Ac [address] [place] [address] Knee pain and spasticity [facility] Comment on above: Knee pain and spasticity Start: 02-12-2024 End: 02-12-2024 ambulatory 02/12/2024 11:00 AM EDT OT/PT/Speech Visit [facility] [address] [place] [address] Nathan Madrigal M, PT right knee and hip [facility] Comment on above: right knee and hip Start: 02-08-2024 End: 02-08-2024 ambulatory 02/08/2024 3:00 PM EDT OT/PT/Speech Visit [facility] [place] [address] [place] [address] Nathan Madrigal, PT right knee and hip [facility] [place] Comment on above: right knee and hip Start: 02-08-2024 End: 02-08-2024 Patient encounter procedure 02/08/2024 9:30 AM EDT Office Visit Pain Management [address] [address] Ming Peterson MD [address] [facility] [place] [address] CONSULT TO PAIN MGT Pain Management Comment on above: CONSULT TO PAIN MGT Start: 02-07-2024 End: 02-07-2024 Patient encounter procedure 02/07/2024 3:30 PM EDT Office Visit [facility] [address] [place] [address] Cori Hope R Ac [address] [place] [address] Pain in right knee and spasticity [facility] Comment on above: Pain in right knee and spasticity Start: 02-05-2024 End: 02-05-2024 Patient encounter procedure 02/05/2024 4:30 PM EDT Office Visit [facility] [address] [place] [address] Cori Hope R Ac [address] [place] [address] Pain in right knee and spasticity [facility] Comment on above: Pain in right knee and spasticity Start: 02-05-2024 End: 02-05-2024 ambulatory 02/05/2024 3:30 PM EDT OT/PT/Speech Visit [facility] [place] [address] [place] [address] Daja Gomez, EXPERIENCE PLANNING STRATEGIST right knee and hip [facility] [place] Comment on above: right knee and hip Start: 02-01-2024 End: 02-01-2024 ambulatory 02/01/2024 1:15 PM EDT OT/PT/Speech Visit [facility] [place] [address] [place] [address] Daja Gomez, EXPERIENCE PLANNING STRATEGIST right knee and hip [facility] [place] Comment on above: right knee and hip Start: 01-31-2024 End: 01-31-2024 Patient encounter procedure 01/31/2024 3:00 PM EDT Office Visit [facility] [address] [place] [address] Cori Hope R Ac [address] [place] [address] Right knee pain [facility] Comment on above: Right knee pain Start: 01-31-2024 End: 03-01-2025 XR Knee - right AP and Lateral XR KNEE LIMITED 2V AP/LAT RIGHT Radiology Routine Acute pain of right knee Expected: 01/31/2024, Expires: 03/01/2025 [facility] Comment on above: Expected: 01/31/2024, Expires: Start: 01-30-2024 End: 01-30-2024 Patient encounter procedure 01/30/2024 1:20 PM EDT Office Visit [facility] [address] [address] Lia Hope, PICKER MACHINE OPERATOR.DEPUTY FIRE MARSHAL [address] [place] [address] consult to spasticity [facility] Comment on above: consult to spasticity Start: 01-30-2024 End: 01-30-2024 Patient encounter procedure 01/30/2024 12:15 PM EDT OT/PT/Speech Visit [facility] Therapy [address] [place] [id number] Esperanza Frye, [facility] [address] [place], [place] [id number] 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] [facility] Comment on above: 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] Start: 01-29-2024 End: 01-29-2024 ambulatory 01/29/2024 1:30 PM EDT [facility] [address] [address] Benton Silva MD [address] [place], [place] [id number] [facility] Comment on above: C-DIFF CARRIER Start: 01-29-2024 End: 01-29-2024 ambulatory [facility] Comment on above: right knee and hip right knee and hi p Start: 01-25-2024 End: 01-25-2024 ambulatory 01/25/2024 1:15 PM EDT OT/PT/Speech Visit [facility] [place] [address] [place] [address] Daja Gomez, EXPERIENCE PLANNING STRATEGIST right knee and hip [facility] Comment on above: right knee and hip Start: 01-24-2024 End: 01-24-2024 Patient encounter procedure [facility] Comment on above: Right knee pain ACUPUNCTURE Start: 01-23-2024 End: 01-23-2024 ambulatory 01/23/2024 11:00 AM EDT OT/PT/Speech Visit [facility] [address] [place], [place] [address] Russ Weber, [facility] [address] [place] [address] 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] [facility] Comment on above: 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] Start: 01-22-2024 End: 01-22-2024 ambulatory 01/22/2024 1:15 PM EDT OT/PT/Speech Visit [facility] [place] [address] [place] [address] Daja Gomez, EXPERIENCE PLANNING STRATEGIST right knee and hip [facility] Comment on above: right knee and hip Start: 01-18-2024 End: 01-18-2024 ambulatory 01/18/2024 3:00 PM EDT OT/PT/Speech Visit [facility] [place] [address] [place] [address] Nathan Madrigal M, PT right knee and hip [facility] Comment on above: right knee and hip Start: 01-17-2024 End: 01-17-2024 Patient encounter procedure 01/17/2024 3:00 PM EDT Office Visit [facility] [address] [place] [address] Cori Hope R Ac [address] [place] [address] Right knee pain [facility] Comment on above: Right knee pain Start: 01-16-2024 End: 01-16-2024 Patient encounter procedure 01/16/2024 1:30 PM EDT OT/PT/Speech Visit [facility] [address] [address] Rashaun Paredes, OT [address] [place] [address] Wheelchair Assessment [facility] Comment on above: Wheelchair Assessment Start: 01-15-2024 End: 01-15-2024 ambulatory 01/15/2024 1:30 PM EDT OT/PT/Speech Visit [facility] [address] [place] [address] Nathan Madrigal M, PT right knee and hip [facility] Comment on above: right knee and hip Start: 01-10-2024 End: 01-10-2024 Patient encounter procedure 01/10/2024 2:30 PM EDT Office Visit [facility] [address] [place] [address] Cori Hope R Ac [address] [place] [address] ACUPUNCTURE [facility] Comment on above: ACUPUNCTURE Start: 01-09-2024 End: 01-09-2024 ambulatory 01/09/2024 1:15 PM EDT OT/PT/Speech Visit [facility] [address] [place] [address] Daja Gomze, EXPERIENCE PLANNING STRATEGIST right hip and knee [facility] Comment on above: right hip and knee Start: 01-09-2024 End: 01-09-2024 Nursing evaluation of patient and report 01/09/2024 9:55 AM EDT Nurse Visit [facility] [address] [address] Pedro Luis, Nurse [address] [place] [address] [facility] Comment on above: ALS NEW Start: 01-09-2024 End: 01-09-2024 Nutrition therapy 01/09/2024 9:[address] [facility] [address] [address] Pedro Luis, Clutch Operator [address] [address] [facility] Comment on above: ALS NEW Start: 01-09-2024 End: 01-09-[address] [facility] Comment on above: ALS NEW Start: 01-07-2024 End: 01-07-2024 ambulatory 01/07/2024 3:30 PM EDT OT/PT/Speech Visit [facility] [address] [place] [address] Daja Gomez, EXPERIENCE PLANNING STRATEGIST right knee and hip [facility] Comment on above: right knee and hip Start: 01-03-2024 End: 01-03-2024 Patient encounter procedure 01/03/2024 2:30 PM EDT Office Visit [facility] [address] [place] [address] Cori Hope R Ac [address] [place] [address] ACUPUNCTURE [facility] Comment on above: ACUPUNCTURE Start: 01-02-2024 End: 01-02-2024 ambulatory 01/02/2024 3:45 PM EDT OT/PT/Speech Visit [facility] [address] [place] [address] Nathan Madrigal, PT right knee and hip [facility] Comment on above: right knee and hip Start: 01-02-2024 Procedure [facility] Start: 12-31-2023 End: 12-31-2023 Patient encounter procedure 12/31/2023 1:00 PM EDT Office Visit Neurology [address] [place] [address] Joan Prieto MD [address] [place] [address] imbalance Neurology Comment on above: imbalance Start: 12-28-2023 End: 12-28-2023 ambulatory 12/28/2023 3:00 PM EDT OT/PT/Speech Visit [facility] [address] [place], [place] [id number] Nathan Madrigal, PT Right Knee and Hip re- eval [facility] Comment on above: Right Knee and Hip re- eval Start: 09-30-2023 Covid-19 Vaccine ( season) Covid-19 Vaccine () [facility] Start: 09-03-2023 Advance Directive Discussion Advance Directive Discussion [facility] Start: 09-03-2023 Behavioral Health Screening Behavioral Health Screening [facility] Start: 09-03-2023 Depression Assessment Depression Assessment [facility] Start: 07-04-2023 Screening for malignant neoplasm of colon COLORECTAL CANCER SCREENING DISCUSSION [facility] Start: 05-04-2023 Covid-19 Vaccine () Covid-19 Vaccine () [facility] Start: 05-04-2023 Influenza vaccination [facility] Start: 09-03-2022 ADVANCE DIRECTIVE DISCUSSION ADVANCE DIRECTIVE DISCUSSION [facility] Start: 09-03-2022 DEPRESSION ASSESSMENT DEPRESSION ASSESSMENT [facility] Start: 07-18-2022 End: 09-17-2022 FM SQ NUTREVAL PANEL BLOOD AND URINE FM SQ NUTREVAL PANEL BLOOD AND URINE Lab Routine Irritable bowel syndrome with both constipation and diarrhea Primary lateral sclerosis (HCC) Dysphagia, unspecified type H/O Clostridium difficile infection Expected: 07/18/2022, Expires: 09/17/2022 [facility] Work Phone: Comment on above: Expected: 07/18/2022, Expires: Start: 06-05-2022 Patient referral [facility] Work Phone: Start: 05-04-2022 Influenza vaccination [facility] Start: 09-03-2021 ADVANCE DIRECTIVE DISCUSSION ADVANCE DIRECTIVE DISCUSSION [facility] Start: 09-03-2021 DEPRESSION ASSESSMENT DEPRESSION ASSESSMENT [facility] Start: 08-28-2021 COVID-19 VACCINE (4 - Booster for Moderna series) COVID-19 VACCINE (4 - Booster for Moderna series) [facility] Start: 08-28-2021 COVID-19 VACCINE (4 - Moderna series) COVID-19 VACCINE (4 - Moderna series) [facility] Start: 01-29-2020 Screening for malignant neoplasm of breast [facility] Start: 2018 BONE DENSITY BONE DENSITY [facility] Start: 2018 Bone Density Screening Bone Density Screening [facility] Start: 2018 Pneumococcal vaccination PNEUMOCOCCAL VACCINE SERIES (1 - PCV) [facility] Start: 2018 Pneumococcal Vaccine: 65+ (1 - PCV) Pneumococcal Vaccine: 65+ (1 - PCV) [facility] Start: 2018 Pneumococcal Vaccine: 65+ (1 of 1 - PCV) Pneumococcal Vaccine: 65+ (1 of 1 - PCV) [facility] Start: 2018 PNEUMOCOCCAL: 65+ (1 - PCV) PNEUMOCOCCAL: 65+ (1 - PCV) [facility] Start: 2018 Screening for osteoporosis Bone Density Screening [facility] Start: 05-15-2017 Thyroid stimulating hormone measurement TSH [facility] Start: 08-25-2015 Mammography [facility] Start: 08-25-2015 Screening for malignant neoplasm of breast Mammogram Screening [facility] Start: 10-08-2014 SHINGRIX VACCINE (2 of 3) SHINGRIX VACCINE (2 of 3) [facility] Start: 10-08-2014 Zoster vaccine hzv live for subcutaneous use ZOSTER (SHINGLES) VACCINE (2 of 3) [facility] Start: 2013 RSV Vaccine (1 - 1-dose 60+ series) RSV Vaccine (1 - 1-dose 60+ series) [facility] Start: 12-13-2003 Pneumococcal Vaccine: 50+ (1 of 1 - PCV) Pneumococcal Vaccine: 50+ (1 of 1 - PCV) [facility] Start: 1998 COLOGUARD (FIT-DNA) COLOGUARD (FIT-DNA) [facility] Start: [address] COLONOGRAPHY [facility] Start: 1998 FECAL OCCULT BLOOD FECAL OCCULT BLOOD [facility] Start: 1998 Screening for malignant neoplasm of colon [facility] Start: 1998 SIGMOIDOSCOPY SIGMOIDOSCOPY [facility] Start: 1993 Lipid panel LIPID SCREENING [facility] Start: 1974 Screening for malignant neoplasm of cervix CERVICAL CANCER SCREENING DISCUSSION [facility] Start: 12-13-1971 ANNUAL PCP TEAM CHRONIC DISEASE VISIT ANNUAL PCP TEAM CHRONIC DISEASE VISIT [facility] Start: 12-13-1971 Anxiety Screening Anxiety Screening [facility] Start: 12-13-1971 Depression Screening Depression Screening [facility] Start: 1955 Hepatitis C screening HEPATITIS C VIRUS SCREENING [facility] Start: 1955 Screening for osteoporosis DEXA SCAN DISCUSSION [facility] Calprotectin [Mass/mass] in Stool CALPROTECTIN,FECAL Lab Routine Diarrhea, unspecified type Ordered: 01/29/2024 [facility] Work Phone: Comment on above: Ordered: 01/29/2024 Clostridioides difficile toxin genes [Presence] in Stool by BRISA with probe detection C. DIFFICILE PCR Lab Routine Clostridioides difficile carrier Ordered: 07/03/2023 [facility] Work Phone: Comment on above: Ordered: 07/03/2023 DXA Bone [Mass/Area] Bone density [facility] Work Phone: End: 12-31-2024 ECG COMPLETE ECG COMPLETE ECG Routine Congenital cardiovascular disorder 1 Occurrences starting 01/01/2024 until 12/31/2024 [facility] Work Phone: Comment on above: 1 Occurrences starting 01/01/2024 until 12/31/2024 End: 12-31-2024 ECHO SPECIALIST COMPLEX ADULT CONGENITAL ECHO SPECIALIST COMPLEX ADULT CONGENITAL Cardiology Routine Congenital cardiovascular disorder 1 Occurrences starting 01/01/2024 until 12/31/2024 [facility] Comment on above: 1 Occurrences starting 01/01/2024 until 12/31/2024 FM GI EFFECTS, 1 STO OL SPECIMEN FM GI EFFECTS, 1 STOOL SPECIMEN Lab Routine Irritable bowel syndrome with both constipation and diarrhea Ordered: 07/18/2022 [facility] Work Phone: Comment on above: Ordered: 07/18/2022 FM GI EFFECTS, 1 STO OL SPECIMEN FM GI EFFECTS, 1 STOOL SPECIMEN Lab Routine Lyme disease Mold exposure Chronic constipation Ordered: 12/19/2023 [facility] Work Phone: Comment on above: Ordered: 12/19/2023 Injection aa&/strd other peripheral nerve/branch INJECT ANESTH AGENT Procedures Routine Arthritis of right knee Ordered: 02/08/2024 [facility] Work Phone: Comment on above: Ordered: 02/08/2024 MG Breast - bilatera l Screening [facility] Work Phone: End: 10-23-2022 MR Brain WO contrast [facility] Work Phone: Comment on above: 1 Occurrences starting 10/23/2022 until 10/23/2022 Patient referral [facility] Work Phone: End: 02-07-2025 RF videography Hypopharynx and Esophagus Views W liquid and paste contrast PO during swallowing XR MODIFIED BARIUM SWALLOW W SPEECH THERAPY Radiology Routine Primary lateral sclerosis (HCC) 1 Occurrences starting 01/09/2024 until 02/07/2025 [facility] Work Phone: Comment on above: 1 Occurrences starting 01/09/2024 until 02/07/2025 T4 free measurement [facility] Thyroglobulin and Thyrogobulin Ab panel - Serum or Plasma [facility] Thyroid stimulating hormone measurement [facility] Vitamin D, 25-hydrox y measurement [facility] End: 01-30-2025 XR Chest PA and Lateral XR CHEST 2V FRONTAL/LAT Radiology Routine Congenital cardiovascular disorder 1 Occurrences starting 01/01/2024 until 01/30/2025 [facility] Comment on above: 1 Occurrences starting 01/01/2024 until 01/30/2025 [facility] Immunizations Immunization Date Immunization Notes Care Provider Kiley delgado 05-31-2023 influenza virus vaccine, unspecified formulation Eal Fernández OTR/L Work Phone: [facility] 07-03-2021 Covid (Pfizer) Dr. Keren edgar Work Phone: [facility] 11-13-2020 Covid (Moderna) Dr. Keren stack Work Phone: [facility] Work Phone: 10-16-2020 Covid (Moderna) Dr. Keren stack Work Phone: [facility] 07-13-2016 influenza virus vaccine, unspecified formulation Daniel Paez DO Work Phone: [facility] 08-13-2014 tetanus toxoid, redu christopher diphtheria toxoid, and acellular pertussis vaccine, adsorbed Dr. Keren Dumont Work Phone: [facility] 08-13-2014 zoster vaccine, live Dr. Grnat Dumont Work Phone: [facility] 08-13-2014 zoster vaccine, unspecified formulation Stiven Marte MD Work Phone: [facility] 07-02-2014 influenza, injectabl e, quadrivalent, preservative free Dr. Keren Dumont Work Phone: [facility] 07-02-2014 influenza, seasonal, injectable Dr. Keren Dumont Work Phone: [facility] 07-02-2014 influenza virus vaccine, unspecified formulation Stiven Marte MD Work Phone: [facility] 06-26-2012 influenza virus vaccine, unspecified formulation Daniel Paez DO Work Phone: [facility] 10-23-2002 tetanus and diphther ia toxoids, not adsorbed, for adult use Danielfernando AnnePaez DO Work Phone: [facility] Payers Date Payer Category Payer Self-pay [id number] 2023 Medicare (Managed Care) [employer] [place] [id number] 2023 Private Health Insurance [facility] [id number] 2018 Medicare [id number] 2012 Unknown [id number] 2012 Unknown [id number] 1953 Unknown [id number] 1955 Unknown [id number] Unknown [id number] Unknown [id number] Unknown [id number] 462 Unknown [id number] 462 Unknown [id number] 462 Unknown [id number] 462 Unknown [id number] 462 Unknown [id number] 462 Unknown [id number] 462 Social History Date Type Detail Facility Start: 06-09-2022 End: 06-12-2023 Tobacco smoking status GAIS Unknown if ever smoked [facility] Start: 1955 Sex Assigned At Female C [facility] Start: 02-06-2012 End: 06-12-2023 Tobacco smoking status NHIS Never smoked tobacco [facility] Start: 02-06-2012 End: 04-22-2015 Tobacco use and exposure Smokeless tobacco non-user [facility] Start: 04-19-2022 Alcohol intake Current drinke r of alcohol (finding) [facility] Start: 11-28-2021 Alcohol intake 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-dr 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 alcohol (finding) [facility] Start: 1955 Sex Assigned At Not on file [facility] Start: 10-13-2022 End: 10-23-2022 Exposure to SARS-CoV-2 (event) Unable to assess [facility] Start: 04-19-2022 End: 03-13-2023 History of Social function [facility] Start: 04-19-2022 End: 03-13-2023 Tobacco use panel [facility] Adult Depression Screening Assessment 0 [facility] Start: 12-22-2020 Gender identity Identifies as female gender (finding) [facility] Start: 12-22-2020 Sexual orientation Heterosexual (fin ding) [facility] Start: 01-01-2024 End: 06-16-2024 Alcohol intake Ex-drinker (finding) [facility] Start: 12-31-2023 Education 20 [facility] Start: 12-31-2023 Alcohol Comment none since ~2019 [facility] Goals Date Patient Goal Desired Activity /State Personal health goal Functional Status Date Assessment Result Facility 12-09-2014 Are you deaf, or do you have serious difficulty hearing No 12/09/2014 2:17 PM EDT Carmenza Mueller Cma No [facility] 12-09-2014 Are you blind, or do you have serious difficulty seeing, even when wearing glasses No 12/09/2014 2:17 PM EDT Carmenza Mueller Cma No [facility] 12-09-2014 Do you have serious difficulty walking or climbing stairs No 12/09/2014 2:17 PM EDT Carmenza Mueller Cma No [facility] 12-09-2014 Do you have difficul ty dressing or bathing No 12/09/2014 2:17 PM EDT Carmenza Mueller Cma No [facility] 12-09-2014 Because of a physica l, mental, or emotional condition, do you have difficulty doing errands alone such as visiting a physician's office or shopping No 12/09/2014 2:17 PM EDT Carmenza Mueller Cma No [facility] Mental Status Date Assessment Result Facility 12-09-2014 Because of a physica l, mental, or emotional condition, do you have serious difficulty concentrating, remembering, or making decisions No 12/09/2014 2:17 PM EDT Carmenza Mueller Cma No [facility] Clinical Notes 07-18-2022 to 12-02-2024 Telephone Encounter - Joan Prieto MD - 12/02/2024 11:04 AM EDTTelephone Encounter - Joan Prieto MD - 12/02/2024 11:04 AM Aixa Tena MD - 06/16/2024 1:15 PM EDT Note Date & Type Note Facility 12-02-2024 Telephone encounter Note The following approved medication requests have been transmitted electronically. Requested Prescriptions Signed Prescriptions Disp Refills NUEDEXTA 20-10 mg capsule 60 capsule 11 Sig: Take 1 capsule by mouth two times a day. Authorizing Provider: JOAN PRIETO MD [facility] 12-02-2024 Miscellaneous Notes The following approved medication requests have been transmitted electronically. Requested Prescriptions Signed Prescriptions Disp Refills NUEDEXTA 20-10 mg capsule 60 capsule 11 Sig: Take 1 capsule by mouth two times a day. Authorizing Provider: JOAN PRIETO MD documented in this encounter [facility] 10-15-2024 Telephone encounter Note WALDEMAR HUDSON (Jones: BJMACTED) Rx #: [id number] Nuedexta 20-10MG capsules Form [employer] Medicare Electronic PA Form (2016 NCPDP) Created 1 day ago Sent to Plan 1 day ago Plan Response 1 day ago Submit Clinical Questions 1 day ago Determination Favorable 4 hours ago Message from Plan Your request has been approved. Authorization Expiration Date: September 02, 2025. Aliyah Rhodes RN BSN [facility] [place] [facility] Work Phone: 10-15-2024 Miscellaneous Notes WALDEMAR HUDSON (Jones: BJMACTED) Rx #: [id number] Nuedexta 20-10MG capsules Form [employer] Medicare Electronic PA Form (2016 NCPDP) Created 1 day ago Sent to Plan 1 day ago Plan Response 1 day ago Submit Clinical Questions 1 day ago Determination Favorable 4 hours ago Message from Plan Your request has been approved. Authorization Expiration Date: September 02, 2025. Aliyah Rhodes RN BSN [facility] [place] Completed questions for PA for nuedexta on cover my meds WALDEMAR HUDSON (Jones: BJMACTED) Rx #: [id number] Nuedexta 20-10MG capsules Form [email or web address] Medicare Electronic PA Form (2016 NCPDP) Created 5 hours ago Sent to Plan 2 minutes ago Plan Response 2 minutes ago Submit Clinical Questions 1 minute ago Determination Wait for Determination Please wait for [facility] Medicare RIPDP 2017 to return a determination. Ofice to get determination Aliyah Rhodes RN BSN [facility] [place] [facility] requesting prior authorization from [employer]. The insurance company phone number is [phone] and fax number is [phone]. The requested medication is Nuedexta. The pharmacy phone number is [phone]. documented in this encounter [facility] 10-15-2024 Telephone encounter Note ALS clinic pre-check in sent to patient. Jayy Alfred RN, BSN [facility] Work Phone: 10-15-2024 Miscellaneous Notes ALS clinic pre-check in sent to patient. aJyy Alfred RN BSN documented in this encounter [facility] 10-14-2024 Telephone encounter Note Completed questions for PA for nuedexta on cover my meds WALDEMAR HUDSON (Jones: BJMACTED) Rx #: [id number] Nuedexta 20-10MG capsules Form [employer] Medicare Electronic PA Form (2016 NCPDP) Created 5 hours ago Sent to Plan 2 minutes ago Plan Response 2 minutes ago Submit Clinical Questions 1 minute ago Determination Wait for Determination Please wait for [facility] Medicare RIPDP 2017 to return a determination. Ofice to get determination Aliyah Rhodes RN BSN [facility] [place] [facility] 10-14-2024 Telephone encounter Note [facility] requesting prior authorization from [employer]. The insurance company phone number is [phone] and fax number is [phone]. The requested medication is Nuedexta. The pharmacy phone number is [phone]. [facility] 08-19-2024 Note HNO ID: [id number] Author: NATHAN MADRIGAL PT Service: ? Author Type: Physical Therapist Type: Progress Notes Filed: 08/19/2024 12:32 Note Text: 08/19/2024 [facility] PHYSICAL THERAPY DISCONTINUANCE OF CARE Plan of Care Period: Start of Care Date: 10/03/23 Last Visit Date: 06/03/2024 Therapy Program: The following is a summary of the interventions provided for this episode of care; Therapeutic exercise, Manual therapy, Therapeutic activities, and Patient/Family/Caregiver Education Assessment: The following is the goal status: Goals for Episode of Care: created on 05/06/2024 through 06/27/2024 Patient will increase active ROM of bilateral knees to no greater than 10-15 degrees from achieving full knee extension to allow patient to improve postural alignment, to improve body/postural mechanics for transfers / gait pattern , and to decrease falls risks. (Ongoing. Patient arrives with -20 to -30 degrees from full extension bilateral knees that improves to -15 to -25 with passive stretching) Patient will be able to correct postural deviations with minimal assist verbal cues in order to improve postural alignment of trunk during transfers, ambulation, and standing and to decrease current R LE pain. (Ongoing) Decrease R hip/R knee pain to 1-4/10 at rest and with functional activities to allow patient to improve ambulation, transfers, and standing tolerance for ADLs. (Ongoing. Patient rates her R knee pain at 4 out of 10 today and continues to struggle with nighttime pain that wakes her hourly at night) Patient to be able to non-reciprocally negotiate stairs at home with bilateral rail use with assist of for safety as needed and be able to complete this task in 5 minutes as she did previously. (NO significant changes.Patient and her are looking into installing an elevator) Patient Goals: To reduce my right knee pain New goals added for ALS Clinic updated 01/09/2024 - Patient education regarding pathophysiology and relationship to deficits presented this date, including exercise recommendations for people with ALS. Including dosage, recovery and intensity. (met) - Patient educated on how to complete home exercise program listed below independently or with caregiver assistance to maintain function, promote wellness, decrease risk of secondary impairments (met) - Patient demonstrates independent and proper use of assistive device to allow for improved walking quality and safety therefore reducing the risk of falls (met) - Patient/ caregiver educated on safe transfers, positioning, and use of adaptive equipment this date to ensure safety for patient and caregiver (met) Recommended Equipment: pivot disc and power wheelchair Based on the most recent progress report, patient was progressing as expected toward functional goals based on medical complications . Reason for Discontinuation of Care: Patient has not returned to therapy or scheduled additional follow-up appointments.Patient was awaiting installation of an elevator in her home as stair negotiation was very difficult for her at attend therapy sessions. Nathan Madrigal PT, ANABELLE [facility] 06-30-2024 Telephone encounter Note Type of record received: Office Visit Notes Records received from: [facility] Records received via: Faxed Records scanned into [employer]: Yes Records have been forwarded to: Dr. Prieto [facility] 06-30-2024 Miscellaneous Notes Type of record received: Office Visit Notes Records received from: [facility] Records received via: Faxed Records scanned into [employer]: Yes Records have been forwarded to: Dr. Prieto documented in this encounter [facility] 06-16-2024 History of Present illness Narrative Images from the original note were not included. 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 Brother was diagnosed with bicuspid aortic valve and had open heart surgery. Wants to make sure her valve is OK. Waldemar has a significant medical history of Lyme disease, thyroid cancer, and PLS (primary lateral sclerosis). Initially presented as foot drop. Progressive weakness over time; she's needed a wheelchair for the last 8 months or so. Voice is also becoming more hoarse. No cardiac symptoms at this time apart from legs swelling over the last few months, that's now up to her knees. Very uncomfortable. Lasix didn't seem to help (rx by primary doctor). Breathing at night is fine. No chest pain. No palpitations. Told she had some ?bigeminy when younger and advised to drink less caffeine. Mobilizes via wheelchair. Dad had heart problem, needed warfarin, not open heart surgery. 1 brother with bicuspid aortic valve requiring open heart surgery. 1 brother with dilated aorta. 1 sibling and had rheumatic heart disease. She has six siblings in total. She has 3 children, one who has two kids. One of the patient's grandchild was just born and there was some initial concern for a dilated aorta (on in utero imaging) that did not come to bear. This is what prompted her current visit. PAST MEDICAL HISTORY Diagnosis Date Arrhythmia irregular heart rate-several yrs ago-PVC's Endometriosis Esophageal reflux 05/24/2005 Lichen sclerosus PERS HX OF THYROID MALIGNANCY 05/24/2005 Primary lateral sclerosis (HCC) 2017 Snoring Uterine fibroid PAST SURGICAL HISTORY Procedure Laterality Date COLONOSCOPY FLX DX W/COLLJ SPEC WHEN PFRMD 09/03/2003 Colonoscopy COLONOSCOPY FLX DX W/COLLJ SPEC WHEN PFRMD 10/01/2014 Colonoscopy EGD TRANSORAL BIOPSY SINGLE/MULTIPLE 03/09/2006 Hiatal hernia/gastritis/esophagitis ESOPHAGOGASTRODUODENOSCOPY TRANSORAL DIAGNOSTIC 10/01/2014 EGD LAPS SURG CHOLECYSTECTOMY W/CHOLANGIOGRAPHY 03/12/2006 PAST SURGICAL HISTORY OF 03/12/2006 transvaginal sling REMOVAL SKN TAGS DIRECTOR CHECK FIBRQ TAGS ANY AREA UPW/15 03/18/2011 Ablation skin tags/ shave bx x 2 REMV CATARACT EXTRACAP,INSERT LENS 12/2023 S SLING BLADDER SALPINGO-OOPHORECTOMY COMPL/PRTL UNI/BI SPX 10/25/2000 Salpingo-oophorectomy THYROIDECTOMY TOTAL/COMPLETE 07/19/2001 For Cancer THYROIDECTOMY TOTAL/COMPLETE TOTAL ABDOMINAL HYSTERECT W/WO RMVL TUBE OVARY 10/25/2000 Hysterectomy, FIDE for fibroids and abnormal menstruation Social History Tobacco Use Smoking status: Never Smokeless tobacco: Never Vaping Use Vaping status: Never Used Substance Use Topics Alcohol use: Not Currently Comment: none since ~2018 Drug use: Yes Comment: microdose THC FAMILY HISTORY Problem Relation Age of Onset other (Other [Other]) Mother normal pressure hydrocephalous Thyroid Mother Heart Father Stroke Father other (DEMENTIA [Other]) Father frontotemporal dementia other (heart valve abnormality) Brother Aneurysm Brother Aneurysm Brother Heart Brother RHEUMATIC FEVER IN CHILDHOOD other (valve) Brother bicuspid aortic valve Stroke Maternal Grandmother Cancer Maternal Grandfather COLON Stroke Paternal Grandmother Aneurysm Grandson - Daughter is 43, she has a 7 year old and a new baby. The new baby had concerns for dilated aorta in utero but thus far has had reassuring assessments since delivery - Other children are 39 and 30, well - Brother #1 has bicuspid valve and dilated aorta, had aortic valve repair, open heart - Brother #2 has dilated aorta - older sister is apparently well, unknown - Younger sister is athletic, has been screened - Oldest brother had rheumatic fever, of heart attack at 23. ALLERGIES Allergen Reactions Baclofen Rash, Intolerance Headache, very tired Malarone [Atovaquon* Hives Thimersol [Thimeros* Makes eyes red- thimerosal in contacts MEDICATIONS: amoxicillin (AMOXIL) 500 mg capsule^Take 2 capsules by mouth every 12 hours.^Disp: ^Rfl: Black Cohosh 40 mg cap^Take 1 capsule by mouth two times a day.^Disp: ^Rfl: CHLORELLA ALGAE, BULK, MISC^Take 6 tablets by mouth once daily.^Disp: ^Rfl: CIERA 0.075 mg/24 hr patch^Apply 1 Patch as directed two times a week.^Disp: ^Rfl: furosemide (LASIX) 20 mg tablet^Take 1 tablet by mouth every 12 hours.^Disp: ^Rfl: levOCARNitine (CARNITOR) 500 mg tab tablet^Take 500 mg by mouth two times a day.^Disp: ^Rfl: liothyronine (CYTOMEL) 5 mcg tablet^Take 1 tablet by mouth once daily.^Disp: ^Rfl: magnesium oxide 200 mg magnesium chew^Take 200 mg by mouth once daily. magnesium chew^Disp: ^Rfl: progesterone micronized (PROMETRIUM) 200 mg capsule^Take 200 mg by mouth daily at bedtime.^Disp: ^Rfl: VITAMIN B COMPLEX ORAL^Take 1 capsule by mouth once daily.^Disp: ^Rfl: nystatin (MYCOSTATIN, NILSTAT) 500,000 unit tab^Take 2 tablets by mouth three times a day with meals.^Disp: 180 tablet^Rfl: 1 AUGUSTO D ARCO ORAL^Take 60 mL by mouth once daily. tea^Disp: ^Rfl: METHYLENE BLUE, BULK-SOLID, MISC^1 capsule two times a day.^Disp: ^Rfl: procaine HCl (PROCAINE, BULK, MISC)^one time a week. IV infusion^Disp: ^Rfl: NUEDEXTA 20-10 mg capsule^Take 1 capsule by mouth three times a day.^Disp: 90 capsule^Rfl: 5 rifAMPin (RIFADIN) 300 mg capsule^Take 300 mg by mouth once daily.^Disp: ^Rfl: Magnesium 200 mg tab^Take 1 tablet by mouth once daily.^Disp: ^Rfl: levothyroxine (SYNTHROID) 112 mcg tablet^^Disp: ^Rfl: TherBiotic Complete [address] Ct[address] (Klaire/Prothera)^Take 1 capsule by mouth once daily.^Disp: ^Rfl: Fish Oil-[place]-3 Fatty Acids 300-1,000 mg cap^Take by mouth.^Disp: ^Rfl: Meriva-SR (Monae) decrease inflammation/pain/gut healing^Take 1-2 capsules two times daily^Disp: ^Rfl: 0 REVIEW OF SYSTEMS: GENERAL: Negative for: Weight loss or gain, Fever or Chills, Weakness and Sleep difficulties. HEENT: Negative for: Headache, Impaired Vision, Glasses, Hearing Impairment, Ringing in Ears, Nosebleeds, Poor Dental Care, Bleeding Gums and Dentures. NECK: Negative for: Swelling, Pain, Stiffness RESPIRATORY: Negative for: Cough, Blood in Sputum, Shortness of breath, Wheezing, Apnea GASTROINTESTINAL: Negative for: Trouble swallowing, Heartburn, Change in bowel habits, Blood in stool, Dark black stools MUSCULOSKELETAL: Negtive for: Muscle or joint pain, stiffness, Joint swelling NEUROLOGIC/PSYCHIATRIC: Positive for: Weakness, Paralysis SKIN: Negative for: Rash, Itching HEMATOLOGICAL/LYMPHATIC: Negative for: Easy bruising, Easy bleeding ENDOCRINE: Negative for: Heat or Cold Intolerance, Excessive Sweating, Frequent Urination, Frequent Thirst PHYSICAL EXAMINATION: BP 136/70 (BP Site: Left Arm) Pulse (!) 57 Ht 170.2 cm (5' 7) Wt 74.8 kg (165 lb) SpO2 97% BMI 25.84 kg/m General: Well appearing, in no acute distress, seated in wheelchair. Skin: No clubbing, no cyanosis. Eyes: Extra ocular movements intact Oropharynx: Teeth in good repair. Neck: No jugular venous distention, no carotid bruits, carotids have a normal upstroke, no palpable thyromegaly. Lungs: Clear to auscultation bilaterally, no wheezing or rhonchi. Heart: Regular rhythm, PMI not displaced, S1, S2 normal, no S3, no S4, no heaves, no rub and no murmur. Abdomen: Soft, nontender, bowel sounds normal, no palpable organomegaly, no bruits. Extremities: 3+ peripheral edema pitting + nonpitting. Grade 2/4 distal pulses bilaterally. Neuro: Oriented to person, place and time, alert, cooperative. CARDIOVASCULAR MEDICINE TESTING: No Cardiovascular testing perfomed today. I have personally reviewed the Electrocardiogram and Echocardiogram. ECG 06/16/24: TTE 06/16/24: - The left ventricle is normal in size. Left ventricular systolic function is normal. EF = 60 5% (2D biplane) Normal left ventricular diastolic function. - The right ventricle is normal in size. Right ventricular systolic function is normal. - The right atrial cavity is dilated. - Estimated right ventricular systolic pressure is likely underestimated due to a weak or incomplete tricuspid regurgitation signal and is, at least, 26 mmHg consistent with normal pulmonary artery pressures. Estimated right atrial pressure is 8 mmHg based on IVC assessment. - There are no significant valvular abnormalities. - Exam was compared with the prior echocardiographic exam performed on 03/14/2004. Similar findings. LABS: Reviewed. ASSESSMENT: 68F with primary lateral sclerosis, uses wheelchair for mobility, with brother who has bicuspid aortic valve+aortopathy and another brother with dilated aorta. She presents for screening for BAV. Echo with trileaflet aortic valve. Aortic dimensions measure within normal limits. Given history and echo findings, her peripheral edema is unlikely to be related to cardiac disease. More likely it is due to venous insufficiency and chronic sedentary status (secondary to neuromuscular disease). PLAN: Return in 1-2 years for repeat echo to check aortic dimensions, sooner prn. Seen and discussed with Dr. Ramirez. Petey Butler MD Fellow, Cardiovascular Disease [facility] STAFF PHYSICIAN NOTE OF PERSONAL INVOLVEMENT IN CARE IMPRESSION/PLAN: I have reviewed the documentation obtained and documented by the Fellow and I have personally performed a [id number]-dz-[id number] assessment of the patient and have participated in the jones components of the visit, which includes the medical decision making. I have discussed the case and management of the patient's care. 68 year old with family history of BAV and aortic aneurysm, presents for screening. She has primary lateral sclerosis and has significant physical disability related to this - is non-ambulatory and has a lot of speech challenges. No cardiac symptoms of concern. Her aortic valve and ascending aorta are normal today by echo. Reasonable to re-screen in 1-2 years to ensure the aorta is not further dilating. Leg edema is not of cardiac etiology and likely represents dependent edema. Of note, LDL resulted after the visit at 191. With severe muscle disease, starting a statin is not an entirely straight-forward choice. Have suggested diet changes to start. Follow up labs in 3-6 months with PCP to reassess. I spent a total of 70 minutes on the date of the service which included preparing to see the patient, [id number] patient care, completing clinical documentation, obtaining and/or reviewing separately obtained history, performing a medically appropriate examination, counseling and educating the patient/family/caregiver, ordering medications, tests, or procedures, communicating with other HCPs (not separately reported), independently interpreting results (not separately reported), communicating results to the patient/family/caregiver, and care coordination (not separately reported). STAFF PHYSICIAN: Aixa Ramirez MD Adult Congenital Heart Disease [facility] Cell/Pager: [phone] Appointments: [phone] documented in this encounter [facility] 06-16-2024 Note HNO ID: [id number] Author: AIXA RAMIREZ MD Service: ? 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 Brother was diagnosed with bicuspid aortic valve and had open heart surgery. Wants to make sure her valve is OK. Waldemar has a significant medical history of Lyme disease, thyroid cancer, and PLS (primary lateral sclerosis). Initially presented as foot drop. Progressive weakness over time; she's needed a wheelchair for the last 8 months or so. Voice is also becoming more hoarse. No cardiac symptoms at this time apart from legs swelling over the last few months, that's now up to her knees. Very uncomfortable. Lasix didn't seem to help (rx by primary doctor). Breathing at night is fine. No chest pain. No palpitations. Told she had some ?bigeminy when younger and advised to drink less caffeine. Mobilizes via wheelchair. Dad had heart problem, needed warfarin, not open heart surgery. 1 brother with bicuspid aortic valve requiring open heart surgery. 1 brother with dilated aorta. 1 sibling and had rheumatic heart disease. She has six siblings in total. She has 3 children, one who has two kids. One of the patient's grandchild was just born and there was some initial concern for a dilated aorta (on in utero imaging) that did not come to bear. This is what prompted her current visit. PAST MEDICAL HISTORY Diagnosis Date Arrhythmia irregular heart rate-several yrs ago-PVC's Endometriosis Esophageal reflux 05/24/2005 Lichen sclerosus PERS HX OF THYROID MALIGNANCY 05/24/2005 Primary lateral sclerosis (HCC) 2017 Snoring Uterine fibroid PAST SURGICAL HISTORY Procedure Laterality Date COLONOSCOPY FLX DX W/COLLJ SPEC WHEN PFRMD 09/03/2003 Colonoscopy COLONOSCOPY FLX DX W/COLLJ SPEC WHEN PFRMD 10/01/2014 Colonoscopy EGD TRANSORAL BIOPSY SINGLE/MULTIPLE 03/09/2006 Hiatal hernia/gastritis/esophagitis ESOPHAGOGASTRODUODENOSCOPY TRANSORAL DIAGNOSTIC 10/01/2014 EGD LAPS SURG CHOLECYSTECTOMY W/CHOLANGIOGRAPHY 03/12/2006 PAST SURGICAL HISTORY OF 03/12/2006 transvaginal sling REMOVAL SKN TAGS DIRECTOR CHECK FIBRQ TAGS ANY AREA UPW/15 03/18/2011 Ablation skin tags/ shave bx x 2 REMV CATARACT EXTRACAP,INSERT LENS 12/2023 S SLING BLADDER SALPINGO-OOPHORECTOMY COMPL/PRTL UNI/BI SPX 10/25/2000 Salpingo-oophorectomy THYROIDECTOMY TOTAL/COMPLETE 07/19/2001 For Cancer THYROIDECTOMY TOTAL/COMPLETE TOTAL ABDOMINAL HYSTERECT W/WO RMVL TUBE OVARY 10/25/2000 Hysterectomy, FIDE for fibroids and abnormal menstruation Social History Tobacco Use Smoking status: Never Smokeless tobacco: Never Vaping Use Vaping status: Never Used Substance Use Topics Alcohol use: Not Currently Comment: none since ~2019 Drug use: Yes Comment: microdose THC FAMILY HISTORY Problem Relation Age of Onset other (Other [Other]) Mother normal pressure hydrocephalous Thyroid Mother Heart Father Stroke Father other (DEMENTIA [Other]) Father frontotemporal dementia other (heart valve abnormality) Brother Aneurysm Brother Aneurysm Brother Heart Brother RHEUMATIC FEVER IN CHILDHOOD other (valve) Brother bicuspid aortic valve Stroke Maternal Grandmother Cancer Maternal Grandfather COLON Stroke Paternal Grandmother Aneurysm Grandson - Daughter is 43, she has a 7 year old and a new baby. The new baby had concerns for dilated aorta in utero but thus far has had reassuring assessments since delivery - Other children are 39 and 30, well - Brother #1 has bicuspid valve and dilated aorta, had aortic valve repair, open heart - Brother #2 has dilated aorta - older sister is apparently well, unknown - Younger sister is athletic, has been screened - Oldest brother had rheumatic fever, of heart attack at 23. ALLERGIES Allergen Reactions Baclofen Rash, Intolerance Headache, very tired Malarone [Atovaquon* Hives Thimersol [Thimeros* Makes eyes red- thimerosal in contacts MEDICATIONS: amoxicillin (AMOXIL) 500 mg capsuleTake 2 capsules by mouth every 12 hours.Disp: Rfl: Black Cohosh 40 mg capTake 1 capsule by mouth two times a day.Disp: Rfl: CHLORELLA ALGAE, BULK, MISCTake 6 tablets by mouth once daily.Disp: Rfl: CIERA 0.075 mg/24 hr patchApply 1 Patch as directed two times a week.Disp: Rfl: furosemide (LASIX) 20 mg tabletTake 1 tablet by mouth every 12 lisa (more content not included)... [facility] 06-16-2024 History of Present illness Narrative Radiology Service Progress Note PATIENT NAME: Waldemar Hudson DATE OF SERVICE: June 16, 2024 TIME: 1:23 PM PATIENT IDENTITY VERIFICATION COMPLETED USING TWO (2) IDENTIFIERS: Name and Date of confirmed by patient verbally. FALL SCREENING: Has the patient had 2 falls in the last year or 1 fall with injury or currently using an Ambulatory Assistive Device (Walker, Cane, Wheelchair, Crutches, etc.)? No PATIENT GENDER DATA: Female. status: : No status: NO. PATIENT RELEVANT IMPLANT DATA REVIEWED: Not Applicable PATIENT PRESENTS WITH AN IMPLANTABLE OR ATTACHED ORACLE DEVELOPER: No RADIOLOGY DEPARTMENT: General X-ray: Exam(s) Completed: Chest X-Ray PERIPHERAL IV DATA: Not applicable SIGNED BY: RT Flores(R) June 16, 2024 1:23 PM documented in this encounter [facility] 06-16-2024 Note HNO ID: [id number] Author: ERIKA HERNANDEZ RT(R) Service: Radiology Author Type: Technologist Type: Progress Notes Filed: 06/16/2024 13:24 Note Text: Radiology Service Progress Note PATIENT NAME: Waldemar Hudson DATE OF SERVICE: June 16, 2024 TIME: 1:23 PM PATIENT IDENTITY VERIFICATION COMPLETED USING TWO (2) IDENTIFIERS: Name and Date of confirmed by patient verbally. FALL SCREENING: Has the patient had 2 falls in the last year or 1 fall with injury or currently using an Ambulatory Assistive Device (Walker, Cane, Wheelchair, Crutches, etc.)? No PATIENT GENDER DATA: Female. status: : No status: NO. PATIENT RELEVANT IMPLANT DATA REVIEWED: Not Applicable PATIENT PRESENTS WITH AN IMPLANTABLE OR ATTACHED ORACLE DEVELOPER: No RADIOLOGY DEPARTMENT: General X-ray: Exam(s) Completed: Chest X-Ray PERIPHERAL IV DATA: Not applicable SIGNED BY: RT Flores(R) June 16, 2024 1:23 PM [facility] 06-03-2024 History of Present illness Narrative Episode Visit Count: 57 Therapist That Will Accept/Oversee The Plan Of Care: Nathan Madrigal PT, ANABELLE Start of Care Date: 10/03/23 Onset Date: 12/31/23 Plan of Care Certification Date: 05/06/24 Next Certification Due Date: 06/27/24 Patient Identified by Name and Date of : Yes REHABILITATION AND SPORTS THERAPY PHYSICAL THERAPY TREATMENT NOTE ASSESSMENT: Waldemar Hudson tolerated the session with some decreased discomfort in her knee. She demonstrated difficulty with right knee not tolerating much stretching this date, although when she performed deep breathing this did assist with relaxation and less spasms. Patient requesting to again sit for session. Instructed spouse and patient in use of gait belt and not caution with not pulling under patient's arm (they have not demonstrated this but wanted to educate). Spoke with Idalmis Madrigal PT about decreasing treatment to 1x weekly until patient's elevator is installed. The patient will continue to benefit from ongoing skilled physical therapy to progress toward set goals. PLAN FOR NEXT VISIT: Continue passive LE stretching, LE and trunk ROM and strengthening as pt tolerates SUBJECTIVE: Patient reported that she feels like her legs are really weak and her right knee pain is increasing. She reported that she will get another infusion again tomorrow. Patient requesting to decrease to 1x per week until her elevator is installed as it is becoming very difficult for her to get out of the house. Pain: Pain Pain Level: 7 Pain Location: Knee - Right Description: Sharp Pain Level 2: 1 Pain Location 2: Knee - Left Description 2: Sharp Post Treatment Pain Post Treatment Pain Level: Better OBJECTIVE MEASURES WITH LEVEL OF FUNCTION: No objective measures taken this date. TREATMENT: Therapeutic Exercise: 1: Seated forward stretch over yellow theraball with bilateral UE's and ball on therapist's lap in front of patient x 15 reps forward and then 10 reps each in scaption for stretching 2: Seated hamstrings stretch with leg rested on therapist's leg x 5, hold 10 seconds each LE. DF stretch in same position x 5 reps w/ 10 sec hold 11: Seated LAQ 2 x 15 reps each LE 12: Seated resisted knee flexion 2 x 15 reps each LE pink band 13: Seated resisted rowing 2 x 15 reps w/ pink band 14: Seated resisted bilateral extension 2 x 15 reps w/ pink band 16: Seated resisted dorsiflexion/plantar flexion 2 x 15 reps each with pink band 17: Lifting large yellow theraball at side of mat overhead and then over each shoulder x 3 reps each direction 18: Horizontal abduction in sitting x 10 reps 19: Diagonals x 5 reps each direction Skilled Intervention: Patient was educated in proper exercise technique and purpose for exercises. Skilled judgment was used in selection of appropriate interventions. Manual Therapy: Skilled Intervention: Manual skills to improve joint mobility, ROM, and decrease pain. Utilized anatomy knowledge of the therapist, and assessment of patient's response to intervention. Billing Therapeutic Exercise Treatment Minutes: 40 Manual TherapyTreatment Minutes: 15 Skilled Treatment Time Minutes (timed and untimed codes): 55 Total Session Time (minutes): 61 Session Start Time : 1533 Session Stop Time : 1634 Daja Gomez PTA documented in this encounter [facility] 06-03-2024 Note HNO ID: [id number] Author: DAJA GOMEZ PTA Service: ? Author Type: Clarity Specialists Type: Progress Notes Filed: 06/03/2024 16:50 Note Text: Episode Visit Count: 57 Therapist That Will Accept/Oversee The Plan Of Care: Nathan Madrigal PT, ANABELLE Start of Care Date: 10/03/23 Onset Date: 12/31/23 Plan of Care Certification Date: 05/06/24 Next Certification Due Date: 06/27/24 Patient Identified by Name and Date of : Yes REHABILITATION AND SPORTS THERAPY PHYSICAL THERAPY TREATMENT NOTE ASSESSMENT: Waldemar Hudson tolerated the session with some decreased discomfort in her knee. She demonstrated difficulty with right knee not tolerating much stretching this date, although when she performed deep breathing this did assist with relaxation and less spasms. Patient requesting to again sit for session. Instructed spouse and patient in use of gait belt and not caution with not pulling under patient's arm (they have not demonstrated this but wanted to educate). Spoke with Idalmis Madrigal PT about decreasing treatment to 1x weekly until patient's elevator is installed. The patient will continue to benefit from ongoing skilled physical therapy to progress toward set goals. PLAN FOR NEXT VISIT: Continue passive LE stretching, LE and trunk ROM and strengthening as pt tolerates SUBJECTIVE: Patient reported that she feels like her legs are really weak and her right knee pain is increasing. She reported that she will get another infusion again tomorrow. Patient requesting to decrease to 1x per week until her elevator is installed as it is becoming very difficult for her to get out of the house. Pain: Pain Pain Level: 7 Pain Location: Knee - Right Description: Sharp Pain Level 2: 1 Pain Location 2: Knee - Left Description 2: Sharp Post Treatment Pain Post Treatment Pain Level: Better OBJECTIVE MEASURES WITH LEVEL OF FUNCTION: No objective measures taken this date. TREATMENT: Therapeutic Exercise: 1: Seated forward stretch over yellow theraball with bilateral UE's and ball on therapist's lap in front of patient x 15 reps forward and then 10 reps each in scaption for stretching 2: Seated hamstrings stretch with leg rested on therapist's leg x 5, hold 10 seconds each LE. DF stretch in same position x 5 reps w/ 10 sec hold 11: Seated LAQ 2 x 15 reps each LE 12: Seated resisted knee flexion 2 x 15 reps each LE pink band 13: Seated resisted rowing 2 x 15 reps w/ pink band 14: Seated resisted bilateral extension 2 x 15 reps w/ pink band 16: Seated resisted dorsiflexion/plantar flexion 2 x 15 reps each with pink band 17: Lifting large yellow theraball at side of mat overhead and then over each shoulder x 3 reps each direction 18: Horizontal abduction in sitting x 10 reps 19: Diagonals x 5 reps each direction Skilled Intervention: Patient was educated in proper exercise technique and purpose for exercises. Skilled judgment was used in selection of appropriate interventions. Manual Therapy: Skilled Intervention: Manual skills to improve joint mobility, ROM, and decrease pain. Utilized anatomy knowledge of the therapist, and assessment of patient's response to intervention. Billing Therapeutic Exercise Treatment Minutes: 40 Manual TherapyTreatment Minutes: 15 Skilled Treatment Time Minutes (timed and untimed codes): 55 Total Session Time (minutes): 61 Session Start Time : 1533 Session Stop Time : 1634 Daja Gomez PTA [facility] 05-27-2024 Note HNO ID: [id number] Author: DAJA GOMEZ PTA Service: ? Author Type: Clarity Specialists Type: Progress Notes Filed: 05/27/2024 15:40 Note Text: Episode Visit Count: 56 Therapist That Will Accept/Oversee The Plan Of Care: Nathan Madrigal PT, ANABELLE Start of Care Date: 10/03/23 Onset Date: 12/31/23 Plan of Care Certification Date: 05/06/24 Next Certification Due Date: 06/27/24 Patient Identified by Name and Date of : Yes REHABILITATION AND SPORTS THERAPY PHYSICAL THERAPY TREATMENT NOTE ASSESSMENT: Waldemar Hudson tolerated the session with decreased symptoms. She demonstrated increased tone which causes pain with right LE at times with stretching and extended right LE. Performed stretching in sitting this date as patient's pain was increased and did not want to lie down for stretching. The patient will continue to benefit from ongoing skilled physical therapy to progress toward set goals. PLAN FOR NEXT VISIT: Continue passive LE stretching, LE and trunk ROM and strengthening as pt tolerates SUBJECTIVE: Patient reported that she has been having increased pain in her right knee and bilateral hips. Pain: Pain Pain Level: 6 Pain Location: Knee - Right Description: Sharp Pain Level 2: 4 Pain Location 2: Hip - Left, Hip - Right Description 2: Aching, Dull Post Treatment Pain Post Treatment Pain Level: Better OBJECTIVE MEASURES WITH LEVEL OF FUNCTION: No objective measures taken this date. TREATMENT: Therapeutic Exercise: 1: Seated forward stretch over yellow theraball with bilateral UE's and ball on therapist's lap in front of patient x 15 reps forward and then 10 reps each in scaption for stretching 2: Seated hamstrings stretch with leg rested on therapist's leg x 5, hold 10 seconds each LE. DF stretch in same position x 5 reps w/ 10 sec hold 11: Seated resisted LAQ x 15 reps each LE with pink band 12: Seated resisted knee flexion 2 x 15 reps each LE pink band 13: Seated resisted rowing 2 x 15 reps w/ pink band 14: Seated resisted bilateral extension 2 x 15 reps w/ pink band 15: Seated resisted bilateral ER 2 x 10 reps w/ pink band 16: Seated resisted dorsiflexion/plantar flexion 2 x 15 reps each with pink band 17: Lifting large yellow theraball at side of mat 2 x 10 reps 18: *Horizontal abduction in sitting x 10 reps 19: *Diagonals x 5 reps each direction 20: Scapular retraction 2 x 15 reps Skilled Intervention: Patient was educated in proper exercise technique and purpose for exercises. Skilled judgment was used in selection of appropriate interventions. Manual Therapy: Skilled Intervention: Manual skills to improve joint mobility, ROM, and decrease pain. Utilized anatomy knowledge of the therapist, and assessment of patient's response to intervention. Billing Therapeutic Exercise Treatment Minutes: 40 Manual TherapyTreatment Minutes: 15 Skilled Treatment Time Minutes (timed and untimed codes): 55 Total Session Time (minutes): 56 Session Start Time : 1315 Session Stop Time : 1411 Daja Gomez [facility] 05-27-2024 History of Present illness Narrative Episode Visit Count: 56 Therapist That Will Accept/Oversee The Plan Of Care: Nathan Madrigal PT, ANABELLE Start of Care Date: 10/03/23 Onset Date: 12/31/23 Plan of Care Certification Date: 05/06/24 Next Certification Due Date: 06/27/24 Patient Identified by Name and Date of : Yes REHABILITATION AND SPORTS THERAPY PHYSICAL THERAPY TREATMENT NOTE ASSESSMENT: Waldemar Hudson tolerated the session with decreased symptoms. She demonstrated increased tone which causes pain with right LE at times with stretching and extended right LE. Performed stretching in sitting this date as patient's pain was increased and did not want to lie down for stretching. The patient will continue to benefit from ongoing skilled physical therapy to progress toward set goals. PLAN FOR NEXT VISIT: Continue passive LE stretching, LE and trunk ROM and strengthening as pt tolerates SUBJECTIVE: Patient reported that she has been having increased pain in her right knee and bilateral hips. Pain: Pain Pain Level: 6 Pain Location: Knee - Right Description: Sharp Pain Level 2: 4 Pain Location 2: Hip - Left, Hip - Right Description 2: Aching, Dull Post Treatment Pain Post Treatment Pain Level: Better OBJECTIVE MEASURES WITH LEVEL OF FUNCTION: No objective measures taken this date. TREATMENT: Therapeutic Exercise: 1: Seated forward stretch over yellow theraball with bilateral UE's and ball on therapist's lap in front of patient x 15 reps forward and then 10 reps each in scaption for stretching 2: Seated hamstrings stretch with leg rested on therapist's leg x 5, hold 10 seconds each LE. DF stretch in same position x 5 reps w/ 10 sec hold 11: Seated resisted LAQ x 15 reps each LE with pink band 12: Seated resisted knee flexion 2 x 15 reps each LE pink band 13: Seated resisted rowing 2 x 15 reps w/ pink band 14: Seated resisted bilateral extension 2 x 15 reps w/ pink band 15: Seated resisted bilateral ER 2 x 10 reps w/ pink band 16: Seated resisted dorsiflexion/plantar flexion 2 x 15 reps each with pink band 17: Lifting large yellow theraball at side of mat 2 x 10 reps 18: *Horizontal abduction in sitting x 10 reps 19: *Diagonals x 5 reps each direction 20: Scapular retraction 2 x 15 reps Skilled Intervention: Patient was educated in proper exercise technique and purpose for exercises. Skilled judgment was used in selection of appropriate interventions. Manual Therapy: Skilled Intervention: Manual skills to improve joint mobility, ROM, and decrease pain. Utilized anatomy knowledge of the therapist, and assessment of patient's response to intervention. Billing Therapeutic Exercise Treatment Minutes: 40 Manual TherapyTreatment Minutes: 15 Skilled Treatment Time Minutes (timed and untimed codes): 55 Total Session Time (minutes): 56 Session Start Time : 1315 Session Stop Time : 1411 Daja Gomez PTA documented in this encounter [facility] 05-23-2024 Note HNO ID: [id number] Author: DAJA GOMEZ PTA Service: ? Author Type: Clarity Specialists Type: Progress Notes Filed: 05/23/2024 16:44 Note Text: Episode Visit Count: 55 Therapist That Will Accept/Oversee The Plan Of Care: Nathan Madrigal PT, ANABELLE Start of Care Date: 10/03/23 Onset Date: 12/31/23 Plan of Care Certification Date: 05/06/24 Next Certification Due Date: 06/27/24 Patient Identified by Name and Date of : Yes REHABILITATION AND SPORTS THERAPY PHYSICAL THERAPY TREATMENT NOTE ASSESSMENT: Waldemar Hudson tolerated the session with decreased symptoms. She demonstrated difficulty with being supine this date so did limited exercises in this position today. Patient did report less pain at the end of the session. The patient will continue to benefit from ongoing skilled physical therapy to progress toward set goals. PLAN FOR NEXT VISIT: Continue passive LE stretching, LE and trunk ROM and strengthening as pt tolerates SUBJECTIVE: Patient reported that she is having increased pain in her right knee. She also reported that her right hip is hurting some this date. Patient reported that she had a Procaine infusion and she did not have any benefits from this but thinks that it might take a few. Pain: Pain Pain Level: 6 Pain Location: Knee - Right Description: Sharp Post Treatment Pain Post Treatment Pain Level: Better OBJECTIVE MEASURES WITH LEVEL OF FUNCTION: No objective measures taken this date. TREATMENT: Therapeutic Exercise: 1: Seated forward stretch over yellow theraball with bilateral UE's and ball on therapist's lap in front of patient x 15 reps forward and then 10 reps each in scaption for stretching 2: Seated hamstrings stretch with leg rested on therapist's leg x 5, hold 10 seconds right LE. DF stretch in same position x 5 reps w/ 10 sec hold 11: Seated resisted LAQ x 15 reps each LE with pink band 12: Seated resisted knee flexion 2 x 15 reps each LE pink band 13: Seated resisted rowing 2 x 15 reps w/ pink band 14: Seated resisted bilateral extension 2 x 15 reps w/ pink band 15: Seated resisted bilateral ER 2 x 10 reps w/ pink band 16: Seated resisted dorsiflexion/plantar flexion 2 x 15 reps each with pink band 17: Lifting large yellow theraball at side of mat 2 x 10 reps 18: Horizontal abduction in sitting x 10 reps Skilled Intervention: Patient was educated in proper exercise technique and purpose for exercises. Skilled judgment was used in selection of appropriate interventions. Manual Therapy: 1: Passive stretching to left LE for hip abduction, hamstrings stretching, knees flexion/extension and calf stretches x 15 reps each. (Patient only tolerated left LE in this position this date due to hip and knee pain on right) Skilled Intervention: Manual skills to improve joint mobility, ROM, and decrease pain. Utilized anatomy knowledge of the therapist, and assessment of patient's response to intervention. Neuromuscular Re-Education: 2: Seated on side of plinth and lateral stretch over large yellow theraball x 10 reps each side and then forward stretch onto large ball x 10 reps Skilled Intervention: Skilled judgment used to assess appropriate program for balance and coordination activity. Spouse behind patient for guarding Billing Therapeutic Exercise Treatment Minutes: 35 Manual TherapyTreatment Minutes: 15 Neuromuscular Re-Education Treatment Minutes: 5 Skilled Treatment Time Minutes (timed and untimed codes): 55 Total Session Time (minutes): 64 Session Start Time : 1533 Session Stop Time : 1637 Daja Gomez [facility] 05-23-2024 History of Present illness Narrative Episode Visit Count: 55 Therapist That Will Accept/Oversee The Plan Of Care: Nathan Madrigal PT, ANABELLE Start of Care Date: 10/03/23 Onset Date: 12/31/23 Plan of Care Certification Date: 05/06/24 Next Certification Due Date: 06/27/24 Patient Identified by Name and Date of : Yes REHABILITATION AND SPORTS THERAPY PHYSICAL THERAPY TREATMENT NOTE ASSESSMENT: Waldemar Hudson tolerated the session with decreased symptoms. She demonstrated difficulty with being supine this date so did limited exercises in this position today. Patient did report less pain at the end of the session. The patient will continue to benefit from ongoing skilled physical therapy to progress toward set goals. PLAN FOR NEXT VISIT: Continue passive LE stretching, LE and trunk ROM and strengthening as pt tolerates SUBJECTIVE: Patient reported that she is having increased pain in her right knee. She also reported that her right hip is hurting some this date. Patient reported that she had a Procaine infusion and she did not have any benefits from this but thinks that it might take a few. Pain: Pain Pain Level: 6 Pain Location: Knee - Right Description: Sharp Post Treatment Pain Post Treatment Pain Level: Better OBJECTIVE MEASURES WITH LEVEL OF FUNCTION: No objective measures taken this date. TREATMENT: Therapeutic Exercise: 1: Seated forward stretch over yellow theraball with bilateral UE's and ball on therapist's lap in front of patient x 15 reps forward and then 10 reps each in scaption for stretching 2: Seated hamstrings stretch with leg rested on therapist's leg x 5, hold 10 seconds right LE. DF stretch in same position x 5 reps w/ 10 sec hold 11: Seated resisted LAQ x 15 reps each LE with pink band 12: Seated resisted knee flexion 2 x 15 reps each LE pink band 13: Seated resisted rowing 2 x 15 reps w/ pink band 14: Seated resisted bilateral extension 2 x 15 reps w/ pink band 15: Seated resisted bilateral ER 2 x 10 reps w/ pink band 16: Seated resisted dorsiflexion/plantar flexion 2 x 15 reps each with pink band 17: Lifting large yellow theraball at side of mat 2 x 10 reps 18: Horizontal abduction in sitting x 10 reps Skilled Intervention: Patient was educated in proper exercise technique and purpose for exercises. Skilled judgment was used in selection of appropriate interventions. Manual Therapy: 1: Passive stretching to left LE for hip abduction, hamstrings stretching, knees flexion/extension and calf stretches x 15 reps each. (Patient only tolerated left LE in this position this date due to hip and knee pain on right) Skilled Intervention: Manual skills to improve joint mobility, ROM, and decrease pain. Utilized anatomy knowledge of the therapist, and assessment of patient's response to intervention. Neuromuscular Re-Education: 2: Seated on side of plinth and lateral stretch over large yellow theraball x 10 reps each side and then forward stretch onto large ball x 10 reps Skilled Intervention: Skilled judgment used to assess appropriate program for balance and coordination activity. Spouse behind patient for guarding Billing Therapeutic Exercise Treatment Minutes: 35 Manual TherapyTreatment Minutes: 15 Neuromuscular Re-Education Treatment Minutes: 5 Skilled Treatment Time Minutes (timed and untimed codes): 55 Total Session Time (minutes): 64 Session Start Time : 1533 Session Stop Time : 163 Daja Gomez PTA documented in this encounter [facility] 05-13-2024 Note HNO ID: [id number] Author: DAJA GOMEZ PTA Service: ? Author Type: [employer] Type: Progress Notes Filed: 05/13/2024 16:54 Note Text: Episode Visit Count: 54 Therapist That Will Accept/Oversee The Plan Of Care: Nathan Madrigal PT, ANABELLE Start of Care Date: 10/03/23 Onset Date: 12/31/23 Plan of Care Certification Date: 05/06/24 Next Certification Due Date: 06/27/24 Patient Identified by Name and Date of : Yes REHABILITATION AND SPORTS THERAPY PHYSICAL THERAPY TREATMENT NOTE ASSESSMENT: Waldemar Hudson tolerated the session with minimal change in pain at the end of the session. She demonstrated difficulty with right LE this date due to increased pain and tone and limited stretching due to same and also spasms. The patient will continue to benefit from ongoing skilled physical therapy to progress toward set goals. PLAN FOR NEXT VISIT: Continue passive LE stretching, LE and trunk ROM and strengthening as pt tolerates SUBJECTIVE: Patient reported that the last 2 days have been rough with her pain and she has been up every 45 minutes at night. Patient reported that she is going to trial an IV of Procaine on Sunday to assist with pain and inflammation. Pain: Pain Pain Level: 7 Pain Location: Knee - Right Description: Sharp Post Treatment Pain Post Treatment Pain Level: Better OBJECTIVE MEASURES WITH LEVEL OF FUNCTION: No objective measures taken this date. TREATMENT: Therapeutic Exercise: 5: Supine bridging 2 x 15 reps over yellow ball 7: SAQ 2 x 15 reps over yellow ball each LE with assist 8: Supine lower trunk rotation with assist with bilateral LE rested on yellow therapy ball x 15 each direction 9: Supine bilateral knee flexion rolling on large yellow theraball 2 x 15 reps 11: Seated resisted LAQ x 15 reps each LE with pink band 12: Seated resisted knee flexion 2 x 15 reps each LE pink band 13: Seated resisted rowing 2 x 15 reps w/ pink band 14: Seated resisted bilateral extension 2 x 15 reps w/ pink band 15: Seated resisted bilateral ER 2 x 10 reps w/ pink band Skilled Intervention: Patient was educated in proper exercise technique and purpose for exercises. Skilled judgment was used in selection of appropriate interventions. Manual Therapy: 1: Passive stretching to each LE for hip abduction, hamstrings stretching, knees flexion/extension and bilateral calf stretches x 15 reps each. Skilled Intervention: Manual skills to improve joint mobility, ROM, and decrease pain. Utilized anatomy knowledge of the therapist, and assessment of patient's response to intervention. Neuromuscular Re-Education: 2: Seated on side of plinth and lateral stretch over large yellow theraball x 10 reps each side and then forward stretch onto large ball x 10 reps 4: Supine large yellow ball lifting from one knee to over opposite shoulder x 10 reps each direction 5: Supine large yellow ball rotation from left to right side 2 x 10 reps Skilled Intervention: close vicinity for supervision of patient's balance Billing Therapeutic Exercise Treatment Minutes: 20 Manual TherapyTreatment Minutes: 15 Neuromuscular Re-Education Treatment Minutes: 20 Skilled Treatment Time Minutes (timed and untimed codes): 55 Total Session Time (minutes): 73 Session Start Time : 1530 Session Stop Time : 1643 Daja Gomez [facility] 05-13-2024 History of Present illness Narrative Episode Visit Count: 54 Therapist That Will Accept/Oversee The Plan Of Care: Nathan Madrigal PT, ANABELLE Start of Care Date: 10/03/23 Onset Date: 12/31/23 Plan of Care Certification Date: 05/06/24 Next Certification Due Date: 06/27/24 Patient Identified by Name and Date of : Yes REHABILITATION AND SPORTS THERAPY PHYSICAL THERAPY TREATMENT NOTE ASSESSMENT: Waldemar Hudson tolerated the session with minimal change in pain at the end of the session. She demonstrated difficulty with right LE this date due to increased pain and tone and limited stretching due to same and also spasms. The patient will continue to benefit from ongoing skilled physical therapy to progress toward set goals. PLAN FOR NEXT VISIT: Continue passive LE stretching, LE and trunk ROM and strengthening as pt tolerates SUBJECTIVE: Patient reported that the last 2 days have been rough with her pain and she has been up every 45 minutes at night. Patient reported that she is going to trial an IV of Procaine on Sunday to assist with pain and inflammation. Pain: Pain Pain Level: 7 Pain Location: Knee - Right Description: Sharp Post Treatment Pain Post Treatment Pain Level: Better OBJECTIVE MEASURES WITH LEVEL OF FUNCTION: No objective measures taken this date. TREATMENT: Therapeutic Exercise: 5: Supine bridging 2 x 15 reps over yellow ball 7: SAQ 2 x 15 reps over yellow ball each LE with assist 8: Supine lower trunk rotation with assist with bilateral LE rested on yellow therapy ball x 15 each direction 9: Supine bilateral knee flexion rolling on large yellow theraball 2 x 15 reps 11: Seated resisted LAQ x 15 reps each LE with pink band 12: Seated resisted knee flexion 2 x 15 reps each LE pink band 13: Seated resisted rowing 2 x 15 reps w/ pink band 14: Seated resisted bilateral extension 2 x 15 reps w/ pink band 15: Seated resisted bilateral ER 2 x 10 reps w/ pink band Skilled Intervention: Patient was educated in proper exercise technique and purpose for exercises. Skilled judgment was used in selection of appropriate interventions. Manual Therapy: 1: Passive stretching to each LE for hip abduction, hamstrings stretching, knees flexion/extension and bilateral calf stretches x 15 reps each. Skilled Intervention: Manual skills to improve joint mobility, ROM, and decrease pain. Utilized anatomy knowledge of the therapist, and assessment of patient's response to intervention. Neuromuscular Re-Education: 2: Seated on side of plinth and lateral stretch over large yellow theraball x 10 reps each side and then forward stretch onto large ball x 10 reps 4: Supine large yellow ball lifting from one knee to over opposite shoulder x 10 reps each direction 5: Supine large yellow ball rotation from left to right side 2 x 10 reps Skilled Intervention: close vicinity for supervision of patient's balance Billing Therapeutic Exercise Treatment Minutes: 20 Manual TherapyTreatment Minutes: 15 Neuromuscular Re-Education Treatment Minutes: 20 Skilled Treatment Time Minutes (timed and untimed codes): 55 Total Session Time (minutes): 73 Session Start Time : 1530 Session Stop Time : 1643 Daja Gomez PTA documented in this encounter [facility] 05-08-2024 Note HNO ID: [id number] Author: DAJA GOMEZ PTA Service: ? Author Type: [employer] Type: Progress Notes Filed: 05/08/2024 16:45 Note Text: Episode Visit Count: 53 Therapist That Will Accept/Oversee The Plan Of Care: Nathan Madrigal PT, ANABELLE Start of Care Date: 10/03/23 Onset Date: 12/31/23 Plan of Care Certification Date: 05/06/24 Next Certification Due Date: 06/27/24 Patient Identified by Name and Date of : Yes REHABILITATION AND SPORTS THERAPY PHYSICAL THERAPY TREATMENT NOTE ASSESSMENT: Waldemar Hudson tolerated the session with no issues. She demonstrated good tolerance to seated balance activities. Patient requires assistance for stretches with strap in sitting. The patient will continue to benefit from ongoing skilled physical therapy to progress toward set goals. PLAN FOR NEXT VISIT: Continue passive LE stretching, LE and trunk ROM and strengthening as pt tolerates SUBJECTIVE: Patient reported that her right knee continues to cause her most pain. She rated at 5/10. Pain: Pain Pain Level: 5 Pain Location: Knee - Right Description: Sharp Post Treatment Pain Post Treatment Pain Level: Better OBJECTIVE MEASURES WITH LEVEL OF FUNCTION: No objective measures taken this date. TREATMENT: Therapeutic Exercise: 5: Supine bridging 2 x 15 reps over yellow ball 7: SAQ 2 x 15 reps over yellow ball each LE with assist 8: Supine lower trunk rotation with assist with bilateral LE rested on yellow therapy ball x 15 each direction 9: Supine bilateral knee flexion rolling on large yellow theraball 2 x 15 reps 10: Seated heel cord stretch with green strap and with therapist adding assisted hamstrings stretch off stool x 5 each LE, hold 20 seconds each Skilled Intervention: Patient was educated in proper exercise technique and purpose for exercises. Skilled judgment was used in selection of appropriate interventions. Manual Therapy: 1: Passive stretching to each LE for hip abduction, hamstrings stretching, knees flexion/extension and bilateral calf stretches x 15 reps each. Skilled Intervention: Manual skills to improve joint mobility, ROM, and decrease pain. Utilized anatomy knowledge of the therapist, and assessment of patient's response to intervention. Neuromuscular Re-Education: 1: Seated on side of plinth passing yellow theraball overhead x 10 reps each direction 2: Seated on side of plinth and lateral stretch over large yellow theraball x 10 reps each side and thenforward stretch onto large ball x 10 reps 3: Seated reaching overhead and then diagonally with yellow theraball x 5 reps in each direction and then x 5 reps rotating around her torso to her standing behind her. Skilled Intervention: assisted with passing ball and supervision for safety with balance. Billing Therapeutic Exercise Treatment Minutes: 15 Manual TherapyTreatment Minutes: 25 Neuromuscular Re-Education Treatment Minutes: 15 Skilled Treatment Time Minutes (timed and untimed codes): 55 Total Session Time (minutes): 63 Session Start Time : 1529 Session Stop Time : 1632 Daja Gomez PTA [facility] 05-08-2024 History of Present illness Narrative Episode Visit Count: 53 Therapist That Will Accept/Oversee The Plan Of Care: Nathan Madrigal PT, ANABELLE Start of Care Date: 10/03/23 Onset Date: 12/31/23 Plan of Care Certification Date: 05/06/24 Next Certification Due Date: 06/27/24 Patient Identified by Name and Date of : Yes REHABILITATION AND SPORTS THERAPY PHYSICAL THERAPY TREATMENT NOTE ASSESSMENT: Waldemar Hudson tolerated the session with no issues. She demonstrated good tolerance to seated balance activities. Patient requires assistance for stretches with strap in sitting. The patient will continue to benefit from ongoing skilled physical therapy to progress toward set goals. PLAN FOR NEXT VISIT: Continue passive LE stretching, LE and trunk ROM and strengthening as pt tolerates SUBJECTIVE: Patient reported that her right knee continues to cause her most pain. She rated at 5/10. Pain: Pain Pain Level: 5 Pain Location: Knee - Right Description: Sharp Post Treatment Pain Post Treatment Pain Level: Better OBJECTIVE MEASURES WITH LEVEL OF FUNCTION: No objective measures taken this date. TREATMENT: Therapeutic Exercise: 5: Supine bridging 2 x 15 reps over yellow ball 7: SAQ 2 x 15 reps over yellow ball each LE with assist 8: Supine lower trunk rotation with assist with bilateral LE rested on yellow therapy ball x 15 each direction 9: Supine bilateral knee flexion rolling on large yellow theraball 2 x 15 reps 10: Seated heel cord stretch with green strap and with therapist adding assisted hamstrings stretch off stool x 5 each LE, hold 20 seconds each Skilled Intervention: Patient was educated in proper exercise technique and purpose for exercises. Skilled judgment was used in selection of appropriate interventions. Manual Therapy: 1: Passive stretching to each LE for hip abduction, hamstrings stretching, knees flexion/extension and bilateral calf stretches x 15 reps each. Skilled Intervention: Manual skills to improve joint mobility, ROM, and decrease pain. Utilized anatomy knowledge of the therapist, and assessment of patient's response to intervention. Neuromuscular Re-Education: 1: Seated on side of plinth passing yellow theraball overhead x 10 reps each direction 2: Seated on side of plinth and lateral stretch over large yellow theraball x 10 reps each side and thenforward stretch onto large ball x 10 reps 3: Seated reaching overhead and then diagonally with yellow theraball x 5 reps in each direction and then x 5 reps rotating around her torso to her standing behind her. Skilled Intervention: assisted with passing ball and supervision for safety with balance. Billing Therapeutic Exercise Treatment Minutes: 15 Manual TherapyTreatment Minutes: 25 Neuromuscular Re-Education Treatment Minutes: 15 Skilled Treatment Time Minutes (timed and untimed codes): 55 Total Session Time (minutes): 63 Session Start Time : 1529 Session Stop Time : 163 Daja Gomez PTA documented in this encounter [facility] 05-06-2024 Note HNO ID: [id number] Author: NATHAN MADRIGAL PT Service: ? Author Type: Physical Therapist Type: Progress Notes Filed: 05/06/2024 17:55 Note Text: Episode Visit Count: 52 Therapist That Will Accept/Oversee The Plan Of Care: Nathan Madrigal PT, ANABELLE Start of Care Date: 10/03/23 Onset Date: 12/31/23 Plan of Care Certification Date: 05/06/24 Next Certification Due Date: 06/27/24 Patient Identified by Name and Date of : Yes REHABILITATION AND SPORTS THERAPY PHYSICAL THERAPY PROGRESS REPORT PLAN OF CARE UPDATE: Assessment: Waldemar Hudson demonstrates continued bilateral LR hypertonia and exacerbation of R knee pain especially at night that can wake her 7x in one night. She has progressed toward goals. Patient continues to present with impairments in ADL's, flexibility, gait, independence in exercise, overall function, patient reported outcome measures, range of motion, and symptom management that interfere with rising from a chair, standing, walking, stair negotiation, sleeping . Current prognosis is Fair due to: clinical presentation, chronic nature of impairments, limited tolerance to activity, Prognosis may be improved by good support system/ coping skills, within-session changes. She will benefit from continued skilled therapy services to meet the updated goals for this plan of care as noted below. Goals for Episode of Care: created on 05/06/2024 through 06/27/2024 Patient will increase active ROM of bilateral knees to no greater than 10-15 degrees from achieving full knee extension to allow patient to improve postural alignment, to improve body/postural mechanics for transfers / gait pattern , and to decrease falls risks. (Ongoing. Patient arrives with -20 to -30 degrees from full extension bilateral knees that improves to -15 to -25 with passive stretching) Patient will be able to correct postural deviations with minimal assist verbal cues in order to improve postural alignment of trunk during transfers, ambulation, and standing and to decrease current R LE pain. (Ongoing) Decrease R hip/R knee pain to 1-4/10 at rest and with functional activities to allow patient to improve ambulation, transfers, and standing tolerance for ADLs. (Ongoing. Patient rates her R knee pain at 4 out of 10 today and continues to struggle with nighttime pain that wakes her hourly at night) Patient to be able to non-reciprocally negotiate stairs at home with bilateral rail use with assist of for safety as needed and be able to complete this task in 5 minutes as she did previously. (NO significant changes.Patient and her are looking into installing an elevator) Patient Goals: To reduce my right knee pain New goals added for [facility] updated 01/09/2024 - Patient education regarding pathophysiology and relationship to deficits presented this date, including exercise recommendations for people with ALS. Including dosage, recovery and intensity. (met) - Patient educated on how to complete home exercise program listed below independently or with caregiver assistance to maintain function, promote wellness, decrease risk of secondary impairments (met) - Patient demonstrates independent and proper use of assistive device to allow for improved walking quality and safety therefore reducing the risk of falls (met) - Patient/ caregiver educated on safe transfers, positioning, and use of adaptive equipment this date to ensure safety for patient and caregiver (met) Recommended Equipment: pivot disc and power wheelchair Time Frame for Goals and Treatment : 06/27/24 Planned Interventions, Frequency, and Duration: 2x/week, 6 weeks Total Number of Visits Planned: 12 Patient to be seen for Manual therapy (50132), Therapeutic exercise (94481), Neuromuscular re-education (47590), Self-nursing home management (55175), Therapeutic activities (03405), Patient/Family/Caregiver Education PLAN FOR NEXT VISIT: Continue passive LE stretching, LE and trunk ROM and strengthening as pt tolerates SUBJECTIVE: Patient rates her R knee pain at 4 out of 10 and was up last night 7 times due to her R knee pain and feeling like it was frozen. She will see Dr. Wadsworth on 07/02/2024 and will have another appointment on 07/09/2024 for [facility]. Functional Limitations: rising from a chair, standing, walking, stair negotiation, sleeping Pain: Pain Pain Level: 4 Pain Location: Knee - Right Post Treatment Pain Post Treatment Pain Level: Better Post Treatment Pain Location: Knee - Right PROMIS Scales 04/28/2024 04/22/2024 03/31/2024 Higher is Better Phys Func - Score 17 (severe dysfunction) 24 (severe dysfunction) Phys Func - Percentile 0 0 Self-Eff Symptom - Score 32 (Low) Self-Eff Symptom - Percentile 4 T-scores: mean of general population = 50. 5 points is clinically meaningfully difference Percentiles provide an indication of how the patient's score ranks in relation (more content not included)... [facility] 05-06-2024 History of Present illness Narrative Images from the original note were not included. Episode Visit Count: 52 Therapist That Will Accept/Oversee The Plan Of Care: Nathan Madrigal PT, ANABELLE Start of Care Date: 10/03/23 Onset Date: 12/31/23 Plan of Care Certification Date: 05/06/24 Next Certification Due Date: 06/27/24 Patient Identified by Name and Date of : Yes REHABILITATION AND SPORTS THERAPY PHYSICAL THERAPY PROGRESS REPORT PLAN OF CARE UPDATE: Assessment: Waldemar Hudson demonstrates continued bilateral LR hypertonia and exacerbation of R knee pain especially at night that can wake her 7x in one night. She has progressed toward goals. Patient continues to present with impairments in ADL's, flexibility, gait, independence in exercise, overall function, patient reported outcome measures, range of motion, and symptom management that interfere with rising from a chair, standing, walking, stair negotiation, sleeping . Current prognosis is Fair due to: clinical presentation, chronic nature of impairments, limited tolerance to activity, Prognosis may be improved by good support system/ coping skills, within-session changes. She will benefit from continued skilled therapy services to meet the updated goals for this plan of care as noted below. Goals for Episode of Care: created on 05/06/2024 through 06/27/2024 Patient will increase active ROM of bilateral knees to no greater than 10-15 degrees from achieving full knee extension to allow patient to improve postural alignment, to improve body/postural mechanics for transfers / gait pattern , and to decrease falls risks. (Ongoing. Patient arrives with -20 to -30 degrees from full extension bilateral knees that improves to -15 to -25 with passive stretching) Patient will be able to correct postural deviations with minimal assist verbal cues in order to improve postural alignment of trunk during transfers, ambulation, and standing and to decrease current R LE pain. (Ongoing) Decrease R hip/R knee pain to 1-4/10 at rest and with functional activities to allow patient to improve ambulation, transfers, and standing tolerance for ADLs. (Ongoing. Patient rates her R knee pain at 4 out of 10 today and continues to struggle with nighttime pain that wakes her hourly at night) Patient to be able to non-reciprocally negotiate stairs at home with bilateral rail use with assist of for safety as needed and be able to complete this task in 5 minutes as she did previously. (NO significant changes.Patient and her are looking into installing an elevator) Patient Goals: To reduce my right knee pain New goals added for [facility] Clinic updated 01/09/2024 - Patient education regarding pathophysiology and relationship to deficits presented this date, including exercise recommendations for people with ALS. Including dosage, recovery and intensity. (met) - Patient educated on how to complete home exercise program listed below independently or with caregiver assistance to maintain function, promote wellness, decrease risk of secondary impairments (met) - Patient demonstrates independent and proper use of assistive device to allow for improved walking quality and safety therefore reducing the risk of falls (met) - Patient/ caregiver educated on safe transfers, positioning, and use of adaptive equipment this date to ensure safety for patient and caregiver (met) Recommended Equipment: pivot disc and power wheelchair Time Frame for Goals and Treatment : 06/27/24 Planned Interventions, Frequency, and Duration: 2x/week, 6 weeks Total Number of Visits Planned: 12 Patient to be seen for Manual therapy (48212), Therapeutic exercise (57325), Neuromuscular re-education (02484), Self-nursing home management (85759), Therapeutic activities (13105), Patient/Family/Caregiver Education PLAN FOR NEXT VISIT: Continue passive LE stretching, LE and trunk ROM and strengthening as pt tolerates SUBJECTIVE: Patient rates her R knee pain at 4 out of 10 and was up last night 7 times due to her R knee pain and feeling like it was frozen. She will see Dr. Wadsworth on 07/02/2024 and will have another appointment on 07/09/2024 for [facility]. Functional Limitations: rising from a chair, standing, walking, stair negotiation, sleeping Pain: Pain Pain Level: 4 Pain Location: Knee - Right Post Treatment Pain Post Treatment Pain Level: Better Post Treatment Pain Location: Knee - Right PROMIS Scales 04/28/2024 04/22/2024 03/31/2024 Higher is Better Phys Func - Score 17 (severe dysfunction) 24 (severe dysfunction) Phys Func - Percentile 0 0 Self-Eff Symptom - Score 32 (Low) Self-Eff Symptom - Percentile 4 T-scores: mean of general population = 50. 5 points is clinically meaningfully difference Percentiles provide an indication of how the patient's score ranks in relation to the general population. Higher percentile rankings indicate better function/quality of life. 50th percentile is the average of the general population and indicates half of respondents had a worse score. OBJECTIVE MEASURES WITH LEVEL OF FUNCTION: LE AROM R Knee Extension: -30 Degrees R Knee Flexion: 100 Degrees L Knee Extension: -20 Degrees L Knee Flexion: 110 Degrees LE PROM R Knee Extension: -25 Degrees L Knee Extension: -15 Degrees LE Strength R Hip Flexion (L2): 4+/5 R Hip ABduction: 4+/5 R Hip ADduction: 4+/5 R Knee Extension (L3): (4-4+/5, limited active ROM and in available ROM) R Knee Flexion: 4+/5 R Ankle Dorsiflexion (L4): 4+/5 R Ankle Plantar Flexion: 4+/5 L Hip Flexion (L2): 4+/5 L Hip ABduction: 4+/5 L Hip ADduction: 4+/5 L Knee Extension (L3): 4+/5 (limited active ROM and in available ROM) L Knee Flexion: 4+/5 L Ankle Dorsiflexion (L4): 4+/5 L Ankle Plantar Flexion: 4+/5 Tone Tone: Hypertonic Hypertonic Comments: L LE hypertonia < R LE hypertonia R Hip Flexor: 4: Affected part rigid R Hip Adductor: 4: Affected part rigid R Knee Extensor: 3: Considerable increase in tone, passive movement difficulty L Hip Flexor: 2: Marked increase in tone through most of ROM but effected part easily moved L Hip Adductor: 3: Considerable increase in tone, passive movement difficulty L Knee Extensor: 2: Marked increase in tone through most of ROM but effected part easily moved Mobility Supine To Sit: Minimal Assistance (Trunk and LE management needed) Sit to Supine: Minimal Assistance (LE management needed) Sit To Stand: Moderate Assistance Stand To Sit: Moderate Assistance Bed To Chair: Minimal Assistance (Pivot disc used) TREATMENT: Therapeutic Exercise: 5: Supine bridging 2 x 15 reps over yellow ball 7: SAQ 2 x 15 reps over yellow ball each LE with assist 8: Supine lower trunk rotation with assist with bilateral LE rested on yellow therapy ball x 15 each direction 9: Supine bilateral knee flexion rolling on large yellow theraball 2 x 15 reps 10: Seated heel cord stretch with green strap and with therapist adding assisted hamstrings stretch off stool x 5 each LE, hold 20 seconds each Skilled Intervention: Skilled judgment was used in selection of appropriate interventions. Completed Progress Report for bilateral LE strength testing and AROM/PROM bilateral knees, mobility assessment. Manual Therapy: 1: Passive stretching to each LE for hip abduction, hamstrings stretching, knees flexion/extension and bilateral calf stretches x 15 reps each. Skilled Intervention: Manual skills to improve joint mobility, ROM, and decrease pain. Utilized anatomy knowledge of the therapist, and assessment of patient's response to intervention. Billing Therapeutic Exercise Treatment Minutes: 30 Manual TherapyTreatment Minutes: 25 Skilled Treatment Time Minutes (timed and untimed codes): 55 Total Session Time (minutes): 55 Session Start Time : 1550 Session Stop Time : 1645 Nathan Madrigal PT, MBA documented in this encounter [facility] 04-29-2024 Note HNO ID: [id number] Author: NATHAN MADRIGAL PT Service: ? Author Type: Physical Therapist Type: Progress Notes Filed: 04/29/2024 16:32 Note Text: Episode Visit Count: 51 Therapist That Will Accept/Oversee The Plan Of Care: Nathan Madrigal PT, MBA Start of Care Date: 10/03/23 Onset Date: 12/31/23 Plan of Care Certification Date: 04/04/24 Next Certification Due Date: 05/23/24 Patient Identified by Name and Date of : Yes REHABILITATION AND SPORTS THERAPY PHYSICAL THERAPY TREATMENT NOTE ASSESSMENT: Waldemar Hudson tolerated the session with fatigue and expected muscle soreness. She demonstrated increased tone with R LE this date and was difficult to attempt to stretch the R knee into extension. Patient also had several episodes of R LE spasms. The patient will continue to benefit from ongoing skilled physical therapy to progress toward set goals. PLAN FOR NEXT VISIT: Progress LE and trunk strengthening as patient tolerates. SUBJECTIVE: Patient reports that her R knee pain at 5 out of 10 and states she is waking up every 45 minutes at night and will place her legs over the side of the bed or her will help her to stand for a duration. She and her are still researching options of installing an elevator and have received a few estimates to date. Pain: Pain Pain Level: 5 Pain Location: Knee - Right Description: Sharp Additional Pain Information : Location 2 Pain Level 2: 3 Pain Location 2: Hip - Left, Hip - Right Description 2: Aching Post Treatment Pain Post Treatment Pain Level: 3 Post Treatment Pain Location: Knee - Right OBJECTIVE MEASURES WITH LEVEL OF FUNCTION: No objective measurements taken this date. TREATMENT: Therapeutic Exercise: 5: Supine bridging 2 x 15 reps over yellow ball 7: SAQ 2 x 15 reps over yellow ball each LE with assist 8: Supine lower trunk rotation with assist with bilateral LE rested on yellow therapy ball x 15 each direction 9: Supine bilateral knee flexion rolling on large yellow theraball 2 x 15 reps 10: Supine yellow ball lifts bilateral x 10 reps overhead and then 10 reps each at a diagonal each direction 13: Seated resisted rowing 2 x 15 reps w/ pink band 14: Seated resisted bilateral extension 2 x 15 reps w/ pink band Skilled Intervention: Skilled judgment was used in selection of appropriate interventions. Correct performance of therapeutic exercises was facilitated with tactile cuing. Manual Therapy: 1: Passive stretching to each LE for hips flexion, abduction, hip ER and IR in flexion and hamstrings stretching, knees flexion/extension and bilateral calf stretches x 15 reps each. Skilled Intervention: Manual skills to improve joint mobility, ROM, and decrease pain. Utilized anatomy knowledge of the therapist, and assessment of patient's response to intervention. Billing Therapeutic Exercise Treatment Minutes: 25 Manual TherapyTreatment Minutes: 23 Skilled Treatment Time Minutes (timed and untimed codes): 48 Total Session Time (minutes): 48 Session Start Time : 1333 Session Stop Time : 1421 Nathan Madrigal PT, MBA [facility] 04-29-2024 History of Present illness Narrative Episode Visit Count: 51 Therapist That Will Accept/Oversee The Plan Of Care: Nathan Madrigal PT, MBA Start of Care Date: 10/03/23 Onset Date: 12/31/23 Plan of Care Certification Date: 04/04/24 Next Certification Due Date: 05/23/24 Patient Identified by Name and Date of : Yes REHABILITATION AND SPORTS THERAPY PHYSICAL THERAPY TREATMENT NOTE ASSESSMENT: Waldemar Hudson tolerated the session with fatigue and expected muscle soreness. She demonstrated increased tone with R LE this date and was difficult to attempt to stretch the R knee into extension. Patient also had several episodes of R LE spasms. The patient will continue to benefit from ongoing skilled physical therapy to progress toward set goals. PLAN FOR NEXT VISIT: Progress LE and trunk strengthening as patient tolerates. SUBJECTIVE: Patient reports that her R knee pain at 5 out of 10 and states she is waking up every 45 minutes at night and will place her legs over the side of the bed or her will help her to stand for a duration. She and her are still researching options of installing an elevator and have received a few estimates to date. Pain: Pain Pain Level: 5 Pain Location: Knee - Right Description: Sharp Additional Pain Information : Location 2 Pain Level 2: 3 Pain Location 2: Hip - Left, Hip - Right Description 2: Aching Post Treatment Pain Post Treatment Pain Level: 3 Post Treatment Pain Location: Knee - Right OBJECTIVE MEASURES WITH LEVEL OF FUNCTION: No objective measurements taken this date. TREATMENT: Therapeutic Exercise: 5: Supine bridging 2 x 15 reps over yellow ball 7: SAQ 2 x 15 reps over yellow ball each LE with assist 8: Supine lower trunk rotation with assist with bilateral LE rested on yellow therapy ball x 15 each direction 9: Supine bilateral knee flexion rolling on large yellow theraball 2 x 15 reps 10: Supine yellow ball lifts bilateral x 10 reps overhead and then 10 reps each at a diagonal each direction 13: Seated resisted rowing 2 x 15 reps w/ pink band 14: Seated resisted bilateral extension 2 x 15 reps w/ pink band Skilled Intervention: Skilled judgment was used in selection of appropriate interventions. Correct performance of therapeutic exercises was facilitated with tactile cuing. Manual Therapy: 1: Passive stretching to each LE for hips flexion, abduction, hip ER and IR in flexion and hamstrings stretching, knees flexion/extension and bilateral calf stretches x 15 reps each. Skilled Intervention: Manual skills to improve joint mobility, ROM, and decrease pain. Utilized anatomy knowledge of the therapist, and assessment of patient's response to intervention. Billing Therapeutic Exercise Treatment Minutes: 25 Manual TherapyTreatment Minutes: 23 Skilled Treatment Time Minutes (timed and untimed codes): 48 Total Session Time (minutes): 48 Session Start Time : 1333 Session Stop Time : 1421 Nathan Madrigal PT, MBA documented in this encounter [facility] 04-25-2024 Note HNO ID: [id number] Author: DAJA GOMEZ PTA Service: ? Author Type: [employer] Type: Progress Notes Filed: 04/25/2024 16:43 Note Text: Episode Visit Count: 50 Therapist That Will Accept/Oversee The Plan Of Care: Nathan Madrigal PT, MBA Start of Care Date: 10/03/23 Onset Date: 12/31/23 Plan of Care Certification Date: 04/04/24 Next Certification Due Date: 05/23/24 Patient Identified by Name and Date of : Yes REHABILITATION AND SPORTS THERAPY PHYSICAL THERAPY TREATMENT NOTE ASSESSMENT: Waldemar Hudson tolerated the session with no issues. She demonstrated good tolerance to sitting balance with reaching above head with large therapy ball and rotation with behind her assisting with taking the ball. Patient with less stiffness noted this date but continued edema bilaterally, R>L The patient will continue to benefit from ongoing skilled physical therapy . PLAN FOR NEXT VISIT: Continue to focus on bilateral LE passive stretching, trunk/core stretching and strengthening. SUBJECTIVE: Patient reported that her pain is better and she is not having as much hip pain. Pain: Pain Pain Level: 3 Pain Location: Knee - Right Description: Sharp Additional Pain Information : Location 2 Pain Level 2: 1 Pain Location 2: Hip - Left, Hip - Right Description 2: Aching Post Treatment Pain Post Treatment Pain Level: Better OBJECTIVE MEASURES WITH LEVEL OF FUNCTION: No objective measures taken this date. TREATMENT: Therapeutic Exercise: 5: Supine bridging 2 x 15 reps over yellow ball 7: SAQ 2 x 15 reps over yellow ball each LE with assist 8: Supine lower trunk rotation with assist with bilateral LE rested on yellow therapy ball x 15 each direction 9: Supine bilateral knee flexion rolling on large yellow theraball 2 x 15 reps 10: Supine yellow ball lifts bilateral x 10 reps overhead and then 10 reps each at a diagonal each direction 13: Seated resisted rowing 2 x 15 reps w/ pink band 14: Seated resisted bilateral extension 2 x 15 reps w/ pink band Skilled Intervention: Patient was educated in proper exercise technique and purpose for exercises. Skilled judgment was used in selection of appropriate interventions. Manual Therapy: 1: Passive stretching to each LE for hips flexion, abduction, hip ER and IR in flexion and hamstrings stretching, knees flexion/extension and bilateral calf stretches x 15 reps each. Skilled Intervention: Manual skills to improve joint mobility, ROM, and decrease pain. Utilized anatomy knowledge of the therapist, and assessment of patient's response to intervention. Neuromuscular Re-Education: 2: Seated on side of plinth and lateral stretch over large yellow theraball x 10 reps each side and thenforward stretch onto large ball x 10 reps 3: Seated reaching overhead and then diagonally with yellow theraball x 5 reps in each direction and then x 5 reps rotating around her torso to her standing behind her. Skilled Intervention: Skilled judgment used to assess appropriate program for balance and coordination activity. Billing Therapeutic Exercise Treatment Minutes: 25 Manual TherapyTreatment Minutes: 25 Neuromuscular Re-Education Treatment Minutes: 10 Skilled Treatment Time Minutes (timed and untimed codes): 60 Total Session Time (minutes): 68 Session Start Time : 1530 Session Stop Time : 1638 Daja Gomez PTA [facility] 04-25-2024 History of Present illness Narrative Episode Visit Count: 50 Therapist That Will Accept/Oversee The Plan Of Care: Nathan Madrigal PT, ANABELLE Start of Care Date: 10/03/23 Onset Date: 12/31/23 Plan of Care Certification Date: 04/04/24 Next Certification Due Date: 05/23/24 Patient Identified by Name and Date of : Yes REHABILITATION AND SPORTS THERAPY PHYSICAL THERAPY TREATMENT NOTE ASSESSMENT: Waldemar Hudson tolerated the session with no issues. She demonstrated good tolerance to sitting balance with reaching above head with large therapy ball and rotation with behind her assisting with taking the ball. Patient with less stiffness noted this date but continued edema bilaterally, R>L The patient will continue to benefit from ongoing skilled physical therapy . PLAN FOR NEXT VISIT: Continue to focus on bilateral LE passive stretching, trunk/core stretching and strengthening. SUBJECTIVE: Patient reported that her pain is better and she is not having as much hip pain. Pain: Pain Pain Level: 3 Pain Location: Knee - Right Description: Sharp Additional Pain Information : Location 2 Pain Level 2: 1 Pain Location 2: Hip - Left, Hip - Right Description 2: Aching Post Treatment Pain Post Treatment Pain Level: Better OBJECTIVE MEASURES WITH LEVEL OF FUNCTION: No objective measures taken this date. TREATMENT: Therapeutic Exercise: 5: Supine bridging 2 x 15 reps over yellow ball 7: SAQ 2 x 15 reps over yellow ball each LE with assist 8: Supine lower trunk rotation with assist with bilateral LE rested on yellow therapy ball x 15 each direction 9: Supine bilateral knee flexion rolling on large yellow theraball 2 x 15 reps 10: Supine yellow ball lifts bilateral x 10 reps overhead and then 10 reps each at a diagonal each direction 13: Seated resisted rowing 2 x 15 reps w/ pink band 14: Seated resisted bilateral extension 2 x 15 reps w/ pink band Skilled Intervention: Patient was educated in proper exercise technique and purpose for exercises. Skilled judgment was used in selection of appropriate interventions. Manual Therapy: 1: Passive stretching to each LE for hips flexion, abduction, hip ER and IR in flexion and hamstrings stretching, knees flexion/extension and bilateral calf stretches x 15 reps each. Skilled Intervention: Manual skills to improve joint mobility, ROM, and decrease pain. Utilized anatomy knowledge of the therapist, and assessment of patient's response to intervention. Neuromuscular Re-Education: 2: Seated on side of plinth and lateral stretch over large yellow theraball x 10 reps each side and thenforward stretch onto large ball x 10 reps 3: Seated reaching overhead and then diagonally with yellow theraball x 5 reps in each direction and then x 5 reps rotating around her torso to her standing behind her. Skilled Intervention: Skilled judgment used to assess appropriate program for balance and coordination activity. Billing Therapeutic Exercise Treatment Minutes: 25 Manual TherapyTreatment Minutes: 25 Neuromuscular Re-Education Treatment Minutes: 10 Skilled Treatment Time Minutes (timed and untimed codes): 60 Total Session Time (minutes): 68 Session Start Time : 1530 Session Stop Time : 1638 Daja Gomez PTA documented in this encounter [facility] 04-22-2024 Note HNO ID: [id number] Author: DAJA GOMEZ PTA Service: ? Author Type: [employer] Type: Progress Notes Filed: 04/22/2024 17:01 Note Text: Episode Visit Count: 49 Therapist That Will Accept/Oversee The Plan Of Care: Nathan Madrigal PT, ANABELLE Start of Care Date: 10/03/23 Onset Date: 12/31/23 Plan of Care Certification Date: 04/04/24 Next Certification Due Date: 05/23/24 Patient Identified by Name and Date of : Yes REHABILITATION AND SPORTS THERAPY PHYSICAL THERAPY TREATMENT NOTE ASSESSMENT: Waldemar Hudson tolerated the session with decreased symptoms. She demonstrated difficulty with right knee extension this date due to increased pain and spasms with attempts at stretching this date. Patient was able to extend her knee some after performing bilateral knee flexion on ball. The patient will continue to benefit from ongoing skilled physical therapy to progress toward set goals. PLAN FOR NEXT VISIT: Continue to focus on bilateral LE passive stretching, trunk/core stretching and strengthening. SUBJECTIVE: Patient reported that she started a new antimicrobial on Sunday and by Sunday evening she was having increased soreness in her right knee and both hips. Her reported that she is descending some of their steps on her bottom at times. Pain: Pain Pain Level: 5 Pain Location: Knee - Right Description: Sharp Additional Pain Information : Location 2 Pain Level 2: 3 Pain Location 2: Hip - Left, Hip - Right Description 2: Aching Post Treatment Pain Post Treatment Pain Level: Better Post Treatment Pain Score 2: (Better) OBJECTIVE MEASURES WITH LEVEL OF FUNCTION: No objective measures taken this date. TREATMENT: Therapeutic Exercise: 5: Supine bridging 2 x 15 reps over yellow ball 7: SAQ 2 x 15 reps over yellow ball each LE with assist 8: Supine lower trunk rotation with assist with bilateral LE rested on yellow therapy ball x 15 each direction 9: Supine bilateral knee flexion rolling on large yellow theraball 2 x 15 reps 12: Seated resisted knee flexion 2 x 15 reps each LE pink band 13: Seated resisted rowing 2 x 15 reps w/ pink band 14: Seated resisted bilateral extension 2 x 15 reps w/ pink band 16: Seated resisted dorsiflexion/plantar flexion 2 x 15 reps each with pink band Skilled Intervention: Patient was educated in proper exercise technique and purpose for exercises. Skilled judgment was used in selection of appropriate interventions. Manual Therapy: 1: Passive stretching to each LE for hips flexion, abduction, hip ER and IR in flexion and hamstrings stretching, knees flexion/extension and bilateral calf stretches x 15 reps each. Skilled Intervention: Manual skills to improve joint mobility, ROM, and decrease pain. Utilized anatomy knowledge of the therapist, and assessment of patient's response to intervention. Neuromuscular Re-Education: 2: Seated on side of plinth and lateral stretch over large yellow theraball x 10 reps each side and thenforward stretch onto large ball x 10 reps Skilled Intervention: Spouse providing supervision for safety Billing Therapeutic Exercise Treatment Minutes: 25 Manual TherapyTreatment Minutes: 25 Neuromuscular Re-Education Treatment Minutes: 5 Skilled Treatment Time Minutes (timed and untimed codes): 55 Total Session Time (minutes): 62 Session Start Time : 1530 Session Stop Time : 1632 Daja Gomez [facility] 04-22-2024 History of Present illness Narrative Episode Visit Count: 49 Therapist That Will Accept/Oversee The Plan Of Care: Nathan Madrigal PT, ANABELLE Start of Care Date: 10/03/23 Onset Date: 12/31/23 Plan of Care Certification Date: 04/04/24 Next Certification Due Date: 05/23/24 Patient Identified by Name and Date of : Yes REHABILITATION AND SPORTS THERAPY PHYSICAL THERAPY TREATMENT NOTE ASSESSMENT: Waldemar Hudson tolerated the session with decreased symptoms. She demonstrated difficulty with right knee extension this date due to increased pain and spasms with attempts at stretching this date. Patient was able to extend her knee some after performing bilateral knee flexion on ball. The patient will continue to benefit from ongoing skilled physical therapy to progress toward set goals. PLAN FOR NEXT VISIT: Continue to focus on bilateral LE passive stretching, trunk/core stretching and strengthening. SUBJECTIVE: Patient reported that she started a new antimicrobial on Sunday and by Sunday evening she was having increased soreness in her right knee and both hips. Her reported that she is descending some of their steps on her bottom at times. Pain: Pain Pain Level: 5 Pain Location: Knee - Right Description: Sharp Additional Pain Information : Location 2 Pain Level 2: 3 Pain Location 2: Hip - Left, Hip - Right Description 2: Aching Post Treatment Pain Post Treatment Pain Level: Better Post Treatment Pain Score 2: (Better) OBJECTIVE MEASURES WITH LEVEL OF FUNCTION: No objective measures taken this date. TREATMENT: Therapeutic Exercise: 5: Supine bridging 2 x 15 reps over yellow ball 7: SAQ 2 x 15 reps over yellow ball each LE with assist 8: Supine lower trunk rotation with assist with bilateral LE rested on yellow therapy ball x 15 each direction 9: Supine bilateral knee flexion rolling on large yellow theraball 2 x 15 reps 12: Seated resisted knee flexion 2 x 15 reps each LE pink band 13: Seated resisted rowing 2 x 15 reps w/ pink band 14: Seated resisted bilateral extension 2 x 15 reps w/ pink band 16: Seated resisted dorsiflexion/plantar flexion 2 x 15 reps each with pink band Skilled Intervention: Patient was educated in proper exercise technique and purpose for exercises. Skilled judgment was used in selection of appropriate interventions. Manual Therapy: 1: Passive stretching to each LE for hips flexion, abduction, hip ER and IR in flexion and hamstrings stretching, knees flexion/extension and bilateral calf stretches x 15 reps each. Skilled Intervention: Manual skills to improve joint mobility, ROM, and decrease pain. Utilized anatomy knowledge of the therapist, and assessment of patient's response to intervention. Neuromuscular Re-Education: 2: Seated on side of plinth and lateral stretch over large yellow theraball x 10 reps each side and thenforward stretch onto large ball x 10 reps Skilled Intervention: Spouse providing supervision for safety Billing Therapeutic Exercise Treatment Minutes: 25 Manual TherapyTreatment Minutes: 25 Neuromuscular Re-Education Treatment Minutes: 5 Skilled Treatment Time Minutes (timed and untimed codes): 55 Total Session Time (minutes): 62 Session Start Time : 1530 Session Stop Time : 163 Daja Gomez PTA documented in this encounter [facility] 04-18-2024 Note HNO ID: [id number] Author: DAJA GOMEZ PTA Service: ? Author Type: [employer] Type: Progress Notes Filed: 04/18/2024 16:48 Note Text: Episode Visit Count: 48 Therapist That Will Accept/Oversee The Plan Of Care: Nathan Madrigal PT, ANABELLE Start of Care Date: 10/03/23 Onset Date: 12/31/23 Plan of Care Certification Date: 04/04/24 Next Certification Due Date: 05/23/24 Patient Identified by Name and Date of : Yes REHABILITATION AND SPORTS THERAPY PHYSICAL THERAPY TREATMENT NOTE ASSESSMENT: Waldemar Hudson tolerated the session with decreased symptoms. She demonstrated difficulty with coming to stand relying heavily on her Ue 's to pull her up. Patient did tolerate standing stretching this date and will monitor response. The patient will continue to benefit from ongoing skilled physical therapy to progress toward set goals. PLAN FOR NEXT VISIT: Continue to focus on bilateral LE passive stretching, trunk/core stretching and strengthening. SUBJECTIVE: Patient reported that today is a bad day for pain. She reported that she was up 6-7 times last night and today her pain is 5/10. She reported that she saw her [facility] and they are looking into lidocaine infusions to help her pain. Pain: Pain Pain Level: 5 Pain Location: Knee - Right Description: Burning, Sharp Post Treatment Pain Post Treatment Pain Level: Better OBJECTIVE MEASURES WITH LEVEL OF FUNCTION: No objective measures taken this date. TREATMENT: Therapeutic Exercise: 5: Supine bridging 2 x 15 reps over yellow ball 7: SAQ 2 x 15 reps over yellow ball each LE with assist 8: Supine lower trunk rotation with assist with bilateral LE rested on yellow therapy ball x 15 each direction 9: Supine bilateral knee flexion rolling on large yellow theraball 2 x 15 reps 10: Supine yellow ball lifts bilateral x 10 reps overhead and then 10 reps each at a diagonal each direction Skilled Intervention: Patient was educated in proper exercise technique and purpose for exercises. Skilled judgment was used in selection of appropriate interventions. Manual Therapy: 1: Passive stretching to each LE for hips flexion, abduction, hip ER and IR in flexion and hamstrings stretching, knees flexion/extension and bilateral calf stretches x 15 reps each. Skilled Intervention: Manual skills to improve joint mobility, ROM, and decrease pain. Utilized anatomy knowledge of the therapist, and assessment of patient's response to intervention. Neuromuscular Re-Education: 3: Standing at side of // bars with right LE toes on side of // bar base x 3 reps w/ 30 sec hold for heel cord/knee stretching. Patient then performed same wtih her right foot on slant board that was placed on base of // bars x 2 reps w/ 30 sec hold. Total standing time approximately 6 minutes.Patient did not try left LE as she did not trust standing on her right LE. Skilled Intervention: Skilled judgment used to assess appropriate program for balance and coordination activity. Ensured patient safety with use of CGA and gait belt. Patient did require minimal assistance for pulling to stand for safety. Billing Therapeutic Exercise Treatment Minutes: 20 Manual TherapyTreatment Minutes: 25 Neuromuscular Re-Education Treatment Minutes: 10 Skilled Treatment Time Minutes (timed and untimed codes): 55 Total Session Time (minutes): 61 Session Start Time : 1530 Session Stop Time : 1631 Daja Gomez PTA [facility] 04-18-2024 History of Present illness Narrative Episode Visit Count: 48 Therapist That Will Accept/Oversee The Plan Of Care: Nathan Madrigal PT, ANABELLE Start of Care Date: 10/03/23 Onset Date: 12/31/23 Plan of Care Certification Date: 04/04/24 Next Certification Due Date: 05/23/24 Patient Identified by Name and Date of : Yes REHABILITATION AND SPORTS THERAPY PHYSICAL THERAPY TREATMENT NOTE ASSESSMENT: Waldemar Hudson tolerated the session with decreased symptoms. She demonstrated difficulty with coming to stand relying heavily on her Ue 's to pull her up. Patient did tolerate standing stretching this date and will monitor response. The patient will continue to benefit from ongoing skilled physical therapy to progress toward set goals. PLAN FOR NEXT VISIT: Continue to focus on bilateral LE passive stretching, trunk/core stretching and strengthening. SUBJECTIVE: Patient reported that today is a bad day for pain. She reported that she was up 6-7 times last night and today her pain is 5/10. She reported that she saw her [place] dr and they are looking into lidocaine infusions to help her pain. Pain: Pain Pain Level: 5 Pain Location: Knee - Right Description: Burning, Sharp Post Treatment Pain Post Treatment Pain Level: Better OBJECTIVE MEASURES WITH LEVEL OF FUNCTION: No objective measures taken this date. TREATMENT: Therapeutic Exercise: 5: Supine bridging 2 x 15 reps over yellow ball 7: SAQ 2 x 15 reps over yellow ball each LE with assist 8: Supine lower trunk rotation with assist with bilateral LE rested on yellow therapy ball x 15 each direction 9: Supine bilateral knee flexion rolling on large yellow theraball 2 x 15 reps 10: Supine yellow ball lifts bilateral x 10 reps overhead and then 10 reps each at a diagonal each direction Skilled Intervention: Patient was educated in proper exercise technique and purpose for exercises. Skilled judgment was used in selection of appropriate interventions. Manual Therapy: 1: Passive stretching to each LE for hips flexion, abduction, hip ER and IR in flexion and hamstrings stretching, knees flexion/extension and bilateral calf stretches x 15 reps each. Skilled Intervention: Manual skills to improve joint mobility, ROM, and decrease pain. Utilized anatomy knowledge of the therapist, and assessment of patient's response to intervention. Neuromuscular Re-Education: 3: Standing at side of // bars with right LE toes on side of // bar base x 3 reps w/ 30 sec hold for heel cord/knee stretching. Patient then performed same wtih her right foot on slant board that was placed on base of // bars x 2 reps w/ 30 sec hold. Total standing time approximately 6 minutes.Patient did not try left LE as she did not trust standing on her right LE. Skilled Intervention: Skilled judgment used to assess appropriate program for balance and coordination activity. Ensured patient safety with use of CGA and gait belt. Patient did require minimal assistance for pulling to stand for safety. Billing Therapeutic Exercise Treatment Minutes: 20 Manual TherapyTreatment Minutes: 25 Neuromuscular Re-Education Treatment Minutes: 10 Skilled Treatment Time Minutes (timed and untimed codes): 55 Total Session Time (minutes): 61 Session Start Time : 1530 Session Stop Time : 1631 Daja Gomez PTA documented in this encounter [facility] 04-15-2024 Note HNO ID: [id number] Author: DAJA GOMEZ PTA Service: ? Author Type: [employer] Type: Progress Notes Filed: 04/15/2024 16:42 Note Text: Episode Visit Count: 47 Therapist That Will Accept/Oversee The Plan Of Care: Nathan Madrigal PT, ANABELLE Start of Care Date: 10/03/23 Onset Date: 12/31/23 Plan of Care Certification Date: 04/04/24 Next Certification Due Date: 05/23/24 Patient Identified by Name and Date of : Yes REHABILITATION AND SPORTS THERAPY PHYSICAL THERAPY TREATMENT NOTE ASSESSMENT: Waldemar Hudson tolerated the session with decreased symptoms. She demonstrated good tolerance to stretching on rocker board and slant board sitting at side of bed and instructed for performance at home as reported that he has a board similar. Also spoke about knee extension static stretching in power chair reclined and bolster at heels. The patient will continue to benefit from ongoing skilled physical therapy to progress toward set goals. PLAN FOR NEXT VISIT: Continue to focus on bilateral LE passive stretching, trunk/core stretching and strengthening. SUBJECTIVE: Patient reported that she is having increased pain today and reported that she was up 6 times last night due to the pain. She reported that she was having a difficult time with standing due to tightness in her right knee and ankle. Pain: Pain Pain Level: 5 Pain Location: Knee - Right Post Treatment Pain Post Treatment Pain Level: Better OBJECTIVE MEASURES WITH LEVEL OF FUNCTION: TREATMENT: Therapeutic Exercise: 5: Supine bridging 2 x 15 reps over yellow ball 7: SAQ 2 x 15 reps over yellow ball each LE with assist 8: Supine lower trunk rotation with assist with bilateral LE rested on yellow therapy ball x 15 each direction 9: Supine bilateral knee flexion rolling on large yellow theraball 2 x 15 reps 10: Supine yellow ball lifts bilateral x 10 reps overhead and then 10 reps each at a diagonal each direction 18: Heel cord stretching seated at side of plinth with rocker board x 10 reps w/ 5 sec hold and then on slant board x 5 reps w/ 10 sec hold Skilled Intervention: Patient was educated in proper exercise technique and purpose for exercises. Skilled judgment was used in selection of appropriate interventions. Patient education as noted. Manual Therapy: 1: Passive stretching to each LE for hips flexion, abduction, hip ER and IR in flexion and hamstrings stretching, knees flexion/extension and bilateral calf stretches x 15 reps each. Skilled Intervention: Manual skills to improve joint mobility, ROM, and decrease pain. Utilized anatomy knowledge of the therapist, and assessment of patient's response to intervention. Neuromuscular Re-Education: 2: Seated on side of plinth and lateral stretch over large yellow theraball x 10 reps each side and thenforward stretch onto large ball x 10 reps Skilled Intervention: Close SBA for balance Billing Therapeutic Exercise Treatment Minutes: 20 Manual TherapyTreatment Minutes: 25 Neuromuscular Re-Education Treatment Minutes: 5 Skilled Treatment Time Minutes (timed and untimed codes): 50 Total Session Time (minutes): 59 Session Start Time : 1532 Session Stop Time : 1631 Daja Gomez PTA [facility] 04-15-2024 History of Present illness Narrative Episode Visit Count: 47 Therapist That Will Accept/Oversee The Plan Of Care: Nathan Madrigal PT, ANABELLE Start of Care Date: 10/03/23 Onset Date: 12/31/23 Plan of Care Certification Date: 04/04/24 Next Certification Due Date: 05/23/24 Patient Identified by Name and Date of : Yes REHABILITATION AND SPORTS THERAPY PHYSICAL THERAPY TREATMENT NOTE ASSESSMENT: Waldemar Hudson tolerated the session with decreased symptoms. She demonstrated good tolerance to stretching on rocker board and slant board sitting at side of bed and instructed for performance at home as reported that he has a board similar. Also spoke about knee extension static stretching in power chair reclined and bolster at heels. The patient will continue to benefit from ongoing skilled physical therapy to progress toward set goals. PLAN FOR NEXT VISIT: Continue to focus on bilateral LE passive stretching, trunk/core stretching and strengthening. SUBJECTIVE: Patient reported that she is having increased pain today and reported that she was up 6 times last night due to the pain. She reported that she was having a difficult time with standing due to tightness in her right knee and ankle. Pain: Pain Pain Level: 5 Pain Location: Knee - Right Post Treatment Pain Post Treatment Pain Level: Better OBJECTIVE MEASURES WITH LEVEL OF FUNCTION: TREATMENT: Therapeutic Exercise: 5: Supine bridging 2 x 15 reps over yellow ball 7: SAQ 2 x 15 reps over yellow ball each LE with assist 8: Supine lower trunk rotation with assist with bilateral LE rested on yellow therapy ball x 15 each direction 9: Supine bilateral knee flexion rolling on large yellow theraball 2 x 15 reps 10: Supine yellow ball lifts bilateral x 10 reps overhead and then 10 reps each at a diagonal each direction 18: Heel cord stretching seated at side of plinth with rocker board x 10 reps w/ 5 sec hold and then on slant board x 5 reps w/ 10 sec hold Skilled Intervention: Patient was educated in proper exercise technique and purpose for exercises. Skilled judgment was used in selection of appropriate interventions. Patient education as noted. Manual Therapy: 1: Passive stretching to each LE for hips flexion, abduction, hip ER and IR in flexion and hamstrings stretching, knees flexion/extension and bilateral calf stretches x 15 reps each. Skilled Intervention: Manual skills to improve joint mobility, ROM, and decrease pain. Utilized anatomy knowledge of the therapist, and assessment of patient's response to intervention. Neuromuscular Re-Education: 2: Seated on side of plinth and lateral stretch over large yellow theraball x 10 reps each side and thenforward stretch onto large ball x 10 reps Skilled Intervention: Close SBA for balance Billing Therapeutic Exercise Treatment Minutes: 20 Manual TherapyTreatment Minutes: 25 Neuromuscular Re-Education Treatment Minutes: 5 Skilled Treatment Time Minutes (timed and untimed codes): 50 Total Session Time (minutes): 59 Session Start Time : 1532 Session Stop Time : 1631 Daja Gomez PTA documented in this encounter [facility] 04-11-2024 History of Present illness Narrative Episode Visit Count: 46 Therapist That Will Accept/Oversee The Plan Of Care: Nathan Madrigal PT, ANABELLE Start of Care Date: 10/03/23 Onset Date: 12/31/23 Plan of Care Certification Date: 04/04/24 Next Certification Due Date: 05/23/24 Patient Identified by Name and Date of : Yes REHABILITATION AND SPORTS THERAPY PHYSICAL THERAPY TREATMENT NOTE ASSESSMENT: Waldemar Hudson tolerated the session with continued tone noted right > left with right LE drawing up at time due to pain and spasms. She demonstrated improvements in sitting tolerance and stretching with large yellow theraball. The patient will continue to benefit from ongoing skilled physical therapy to progress toward set goals. PLAN FOR NEXT VISIT: Continue to focus on bilateral LE passive stretching, trunk/core stretching and strengthening. SUBJECTIVE: Patient reported that she had a rough night last night and was up multiple times. Pain: Pain Pain Level: 4 Pain Location: Knee - Right Post Treatment Pain Post Treatment Pain Level: Better OBJECTIVE MEASURES WITH LEVEL OF FUNCTION: No objective measures taken this date. TREATMENT: Therapeutic Exercise: 5: Supine bridging 3 x 10 reps over yellow ball 7: SAQ 2 x 15 reps over yellow ball each LE with assist 8: Supine lower trunk rotation with assist with bilateral LE rested on yellow therapy ball x 15 each direction 9: Supine bilateral knee flexion rolling on large yellow theraball 2 x 15 reps 11: Seated LAQ 2 x 15 reps each LE 12: Seated resisted knee flexion 2 x 15 reps each LE pink band 13: Seated resisted rowing 2 x 15 reps w/ pink band 16: Seated resisted dorsiflexion/plantar flexion 2 x 15 reps each with pink band 17: Lifting large yellow theraball at side of mat 2 x 10 reps Skilled Intervention: Patient was educated in proper exercise technique and purpose for exercises. Skilled judgment was used in selection of appropriate interventions. Manual Therapy: 1: Passive stretching to each LE for hips flexion, abduction, hip ER and IR in flexion and hamstrings stretching, knees flexion/extension and bilateral calf stretches x 15 reps each. Skilled Intervention: Manual skills to improve joint mobility, ROM, and decrease pain. Utilized anatomy knowledge of the therapist, and assessment of patient's response to intervention. Neuromuscular Re-Education: 2: Seated on side of plinth and lateral stretch over large yellow theraball x 10 reps each side and thenforward stretch onto large ball x 10 reps Skilled Intervention: Ensured patient safety with use of close SBA Billing Therapeutic Exercise Treatment Minutes: 20 Manual TherapyTreatment Minutes: 25 Neuromuscular Re-Education Treatment Minutes: 5 Skilled Treatment Time Minutes (timed and untimed codes): 50 Total Session Time (minutes): 55 Session Start Time : 1444 Session Stop Time : 1539 Daja Gomez PTA documented in this encounter [facility] 04-11-2024 Note HNO ID: [id number] Author: DAJA GOMEZ PTA Service: ? Author Type: [employer] Type: Progress Notes Filed: 04/11/2024 15:43 Note Text: Episode Visit Count: 46 Therapist That Will Accept/Oversee The Plan Of Care: Nathan Madrigal PT, ANABELLE Start of Care Date: 10/03/23 Onset Date: 12/31/23 Plan of Care Certification Date: 04/04/24 Next Certification Due Date: 05/23/24 Patient Identified by Name and Date of : Yes REHABILITATION AND SPORTS THERAPY PHYSICAL THERAPY TREATMENT NOTE ASSESSMENT: Waldemar Hudson tolerated the session with continued tone noted right > left with right LE drawing up at time due to pain and spasms. She demonstrated improvements in sitting tolerance and stretching with large yellow theraball. The patient will continue to benefit from ongoing skilled physical therapy to progress toward set goals. PLAN FOR NEXT VISIT: Continue to focus on bilateral LE passive stretching, trunk/core stretching and strengthening. SUBJECTIVE: Patient reported that she had a rough night last night and was up multiple times. Pain: Pain Pain Level: 4 Pain Location: Knee - Right Post Treatment Pain Post Treatment Pain Level: Better OBJECTIVE MEASURES WITH LEVEL OF FUNCTION: No objective measures taken this date. TREATMENT: Therapeutic Exercise: 5: Supine bridging 3 x 10 reps over yellow ball 7: SAQ 2 x 15 reps over yellow ball each LE with assist 8: Supine lower trunk rotation with assist with bilateral LE rested on yellow therapy ball x 15 each direction 9: Supine bilateral knee flexion rolling on large yellow theraball 2 x 15 reps 11: Seated LAQ 2 x 15 reps each LE 12: Seated resisted knee flexion 2 x 15 reps each LE pink band 13: Seated resisted rowing 2 x 15 reps w/ pink band 16: Seated resisted dorsiflexion/plantar flexion 2 x 15 reps each with pink band 17: Lifting large yellow theraball at side of mat 2 x 10 reps Skilled Intervention: Patient was educated in proper exercise technique and purpose for exercises. Skilled judgment was used in selection of appropriate interventions. Manual Therapy: 1: Passive stretching to each LE for hips flexion, abduction, hip ER and IR in flexion and hamstrings stretching, knees flexion/extension and bilateral calf stretches x 15 reps each. Skilled Intervention: Manual skills to improve joint mobility, ROM, and decrease pain. Utilized anatomy knowledge of the therapist, and assessment of patient's response to intervention. Neuromuscular Re-Education: 2: Seated on side of plinth and lateral stretch over large yellow theraball x 10 reps each side and thenforward stretch onto large ball x 10 reps Skilled Intervention: Ensured patient safety with use of close SBA Billing Therapeutic Exercise Treatment Minutes: 20 Manual TherapyTreatment Minutes: 25 Neuromuscular Re-Education Treatment Minutes: 5 Skilled Treatment Time Minutes (timed and untimed codes): 50 Total Session Time (minutes): 55 Session Start Time : 1444 Session Stop Time : 1539 Daja Gomez PTA [facility] 04-08-2024 Note HNO ID: [id number] Author: DAJA GOMEZ PTA Service: ? Author Type: [employer] Type: Progress Notes Filed: 04/08/2024 16:56 Note Text: Episode Visit Count: 45 Therapist That Will Accept/Oversee The Plan Of Care: Nathan Madrigal PT, ANABELLE Start of Care Date: 10/03/23 Onset Date: 12/31/23 Plan of Care Certification Date: 04/04/24 Next Certification Due Date: 05/23/24 Patient Identified by Name and Date of : Yes REHABILITATION AND SPORTS THERAPY PHYSICAL THERAPY TREATMENT NOTE ASSESSMENT: Waldemar Hudson tolerated the session with decreased symptoms. She demonstrated increased rigidity at the beginning of the session which did decrease some by the end of the session. The patient will continue to benefit from ongoing skilled physical therapy to progress toward set goals. PLAN FOR NEXT VISIT: Continue to focus on bilateral LE passive stretching, trunk/core stretching and strengthening. SUBJECTIVE: Patient reported that her right knee pain is increased this date and would rate at 5/10. Pain: Pain Pain Level: 5 Pain Location: Knee - Right Post Treatment Pain Post Treatment Pain Level: Better OBJECTIVE MEASURES WITH LEVEL OF FUNCTION: No objective measures taken this date. TREATMENT: Therapeutic Exercise: 5: Supine bridging 2 x 15 reps over yellow ball 7: SAQ 2 x 15 reps over yellow ball each LE with assist 8: Supine lower trunk rotation with assist with bilateral LE rested on yellow therapy ball x 15 each direction 9: Supine bilateral knee flexion rolling on large yellow theraball 2 x 15 reps 11: Seated LAQ 2 x 15 reps each LE 12: Seated resisted knee flexion 2 x 15 reps each LE pink band Skilled Intervention: Patient was educated in proper exercise technique and purpose for exercises. Skilled judgment was used in selection of appropriate interventions. Manual Therapy: 1: Passive stretching to each LE for hips flexion, abduction, hip ER and IR in flexion and hamstrings stretching, knees flexion/extension and bilateral calf stretches x 15 reps each. Skilled Intervention: Manual skills to improve joint mobility, ROM, and decrease pain. Utilized anatomy knowledge of the therapist, and assessment of patient's response to intervention. Neuromuscular Re-Education: 2: Seated on side of plinth and lateral stretch over large yellow theraball x 10 reps each side and thenforward stretch onto large ball x 10 reps Skilled Intervention: Close supervision for safety Billing Therapeutic Exercise Treatment Minutes: 20 Manual TherapyTreatment Minutes: 30 Neuromuscular Re-Education Treatment Minutes: 5 Skilled Treatment Time Minutes (timed and untimed codes): 55 Total Session Time (minutes): 60 Session Start Time : 1530 Session Stop Time : 1630 Daja Gomez ALYSSA [facility] 04-08-2024 History of Present illness Narrative Episode Visit Count: 45 Therapist That Will Accept/Oversee The Plan Of Care: Nathan Madrigal PT, ANABELLE Start of Care Date: 10/03/23 Onset Date: 12/31/23 Plan of Care Certification Date: 04/04/24 Next Certification Due Date: 05/23/24 Patient Identified by Name and Date of : Yes REHABILITATION AND SPORTS THERAPY PHYSICAL THERAPY TREATMENT NOTE ASSESSMENT: Waldemar Hudson tolerated the session with decreased symptoms. She demonstrated increased rigidity at the beginning of the session which did decrease some by the end of the session. The patient will continue to benefit from ongoing skilled physical therapy to progress toward set goals. PLAN FOR NEXT VISIT: Continue to focus on bilateral LE passive stretching, trunk/core stretching and strengthening. SUBJECTIVE: Patient reported that her right knee pain is increased this date and would rate at 5/10. Pain: Pain Pain Level: 5 Pain Location: Knee - Right Post Treatment Pain Post Treatment Pain Level: Better OBJECTIVE MEASURES WITH LEVEL OF FUNCTION: No objective measures taken this date. TREATMENT: Therapeutic Exercise: 5: Supine bridging 2 x 15 reps over yellow ball 7: SAQ 2 x 15 reps over yellow ball each LE with assist 8: Supine lower trunk rotation with assist with bilateral LE rested on yellow therapy ball x 15 each direction 9: Supine bilateral knee flexion rolling on large yellow theraball 2 x 15 reps 11: Seated LAQ 2 x 15 reps each LE 12: Seated resisted knee flexion 2 x 15 reps each LE pink band Skilled Intervention: Patient was educated in proper exercise technique and purpose for exercises. Skilled judgment was used in selection of appropriate interventions. Manual Therapy: 1: Passive stretching to each LE for hips flexion, abduction, hip ER and IR in flexion and hamstrings stretching, knees flexion/extension and bilateral calf stretches x 15 reps each. Skilled Intervention: Manual skills to improve joint mobility, ROM, and decrease pain. Utilized anatomy knowledge of the therapist, and assessment of patient's response to intervention. Neuromuscular Re-Education: 2: Seated on side of plinth and lateral stretch over large yellow theraball x 10 reps each side and thenforward stretch onto large ball x 10 reps Skilled Intervention: Close supervision for safety Billing Therapeutic Exercise Treatment Minutes: 20 Manual TherapyTreatment Minutes: 30 Neuromuscular Re-Education Treatment Minutes: 5 Skilled Treatment Time Minutes (timed and untimed codes): 55 Total Session Time (minutes): 60 Session Start Time : 1530 Session Stop Time : 1630 Daja Gomez PTA documented in this encounter [facility] 04-04-2024 Note HNO ID: [id number] Author: NATHAN MADRIGAL PT Service: ? Author Type: Physical Therapist Type: Progress Notes Filed: 04/04/2024 17:13 Note Text: Episode Visit Count: 44 Therapist That Will Accept/Oversee The Plan Of Care: Nathan Madrigal PT, ANABELLE Start of Care Date: 10/03/23 Onset Date: 12/31/23 Plan of Care Certification Date: 04/04/24 Next Certification Due Date: 05/23/24 Patient Identified by Name and Date of : Yes REHABILITATION AND SPORTS THERAPY PHYSICAL THERAPY PROGRESS REPORT PLAN OF CARE UPDATE: Assessment: Waldemar Hudson demonstrates continued R knee pain and hypertonia/spasms that wake her hourly at night. She does respond favorably to manual passive bilateral LE and trunk ROM and stretching and strengthening exercises in therapy. She has progressed toward goals. Patient continues to present with impairments in ADL's, gait, independence in exercise, overall function, range of motion, and symptom management that interfere with . Current prognosis is Fair due to: clinical presentation, chronic nature of impairments, limited tolerance to activity, Prognosis may be improved by good support system/ coping skills, within-session changes, positive past response to therapy. She will benefit from continued skilled therapy services to meet the updated goals for this plan of care as noted below. Goals for Episode of Care: created on 04/04/2024 through 05/23/2024 Patient will increase active ROM of bilateral knees to no greater than 10-15 degrees from achieving full knee extension to allow patient to improve postural alignment, to improve body/postural mechanics for transfers / gait pattern , and to decrease falls risks. (Ongoing. Patient arrives with -25 to -40 degrees from full extension bilateral knees that improves to -15 to -25 with passive stretching) Patient will be able to correct postural deviations with minimal assist verbal cues in order to improve postural alignment of trunk during transfers, ambulation, and standing and to decrease current R LE pain. (Ongoing) Decrease R hip/R knee pain to 1-4/10 at rest and with functional activities to allow patient to improve ambulation, transfers, and standing tolerance for ADLs. (Ongoing. Patient rates her R knee pain at 3 out of 10 today and continues to struggle with nighttime pain that wakes her hourly at night) Patient to be able to non-reciprocally negotiate stairs at home with bilateral rail use with assist of for safety as needed and be able to complete this task in 5 minutes as she did previously. (Patient and her feel that the speed of stair negotiation is a little improved. They are looking into installing an elevator) Patient Goals: To reduce my right knee pain New goals added for ALS Clinic updated 01/09/2024 - Patient education regarding pathophysiology and relationship to deficits presented this date, including exercise recommendations for people with ALS. Including dosage, recovery and intensity. (met) - Patient educated on how to complete home exercise program listed below independently or with caregiver assistance to maintain function, promote wellness, decrease risk of secondary impairments (met) - Patient demonstrates independent and proper use of assistive device to allow for improved walking quality and safety therefore reducing the risk of falls (met) - Patient/ caregiver educated on safe transfers, positioning, and use of adaptive equipment this date to ensure safety for patient and caregiver (met) Recommended Equipment: pivot disc and power wheelchair Planned Interventions, Frequency, and Duration: 2x/week, 6 weeks Total Number of Visits Planned: 12 Patient to be seen for Manual therapy (55796), Therapeutic exercise (73044), Neuromuscular re-education (60286), Self-nursing home management (17869), Therapeutic activities (16240), Patient/Family/Caregiver Education PLAN FOR NEXT VISIT: Continue to focus on bilateral LE passive stretching, trunk/core stretching and strengthening. SUBJECTIVE: Patient is placing acupuncture on hold due to Lyme disease infection still being present. He felt that her antibiotics were interfering with her nerves. She notes that the last 2 times with the acupuncture that she was experiencing restlessness in the L leg that was very uncomfortable. Patient continues to have increased R knee pain at night that wakes her at night with the R knee feeling like it is burning and sore and then she cannot move it. She is waking every hour at night and wakes her to stand her up and put her in weight bearing. Her tries to get her in standing at the sink and she tries to stretch her R hamstrings and calf muscles. She has tried THC cream, Voltaren, Blue Emu and another from her Lyme doctor that has Baclofen and Cyclobenzaprine and this is also not helping.. Pain: Pain Pain Level: 3 Pain Location: Knee - Right Post Treat (more content not included)... [facility] 04-04-2024 History of Present illness Narrative Images from the original note were not included. Episode Visit Count: 44 Therapist That Will Accept/Oversee The Plan Of Care: Nathan Madrigal PT, ANABELLE Start of Care Date: 10/03/23 Onset Date: 12/31/23 Plan of Care Certification Date: 04/04/24 Next Certification Due Date: 05/23/24 Patient Identified by Name and Date of : Yes REHABILITATION AND SPORTS THERAPY PHYSICAL THERAPY PROGRESS REPORT PLAN OF CARE UPDATE: Assessment: Waldemar Hudson demonstrates continued R knee pain and hypertonia/spasms that wake her hourly at night. She does respond favorably to manual passive bilateral LE and trunk ROM and stretching and strengthening exercises in therapy. She has progressed toward goals. Patient continues to present with impairments in ADL's, gait, independence in exercise, overall function, range of motion, and symptom management that interfere with . Current prognosis is Fair due to: clinical presentation, chronic nature of impairments, limited tolerance to activity, Prognosis may be improved by good support system/ coping skills, within-session changes, positive past response to therapy. She will benefit from continued skilled therapy services to meet the updated goals for this plan of care as noted below. Goals for Episode of Care: created on 04/04/2024 through 05/23/2024 Patient will increase active ROM of bilateral knees to no greater than 10-15 degrees from achieving full knee extension to allow patient to improve postural alignment, to improve body/postural mechanics for transfers / gait pattern , and to decrease falls risks. (Ongoing. Patient arrives with -25 to -40 degrees from full extension bilateral knees that improves to -15 to -25 with passive stretching) Patient will be able to correct postural deviations with minimal assist verbal cues in order to improve postural alignment of trunk during transfers, ambulation, and standing and to decrease current R LE pain. (Ongoing) Decrease R hip/R knee pain to 1-4/10 at rest and with functional activities to allow patient to improve ambulation, transfers, and standing tolerance for ADLs. (Ongoing. Patient rates her R knee pain at 3 out of 10 today and continues to struggle with nighttime pain that wakes her hourly at night) Patient to be able to non-reciprocally negotiate stairs at home with bilateral rail use with assist of for safety as needed and be able to complete this task in 5 minutes as she did previously. (Patient and her feel that the speed of stair negotiation is a little improved. They are looking into installing an elevator) Patient Goals: To reduce my right knee pain New goals added for ALS Clinic updated 01/09/2024 - Patient education regarding pathophysiology and relationship to deficits presented this date, including exercise recommendations for people with ALS. Including dosage, recovery and intensity. (met) - Patient educated on how to complete home exercise program listed below independently or with caregiver assistance to maintain function, promote wellness, decrease risk of secondary impairments (met) - Patient demonstrates independent and proper use of assistive device to allow for improved walking quality and safety therefore reducing the risk of falls (met) - Patient/ caregiver educated on safe transfers, positioning, and use of adaptive equipment this date to ensure safety for patient and caregiver (met) Recommended Equipment: pivot disc and power wheelchair Planned Interventions, Frequency, and Duration: 2x/week, 6 weeks Total Number of Visits Planned: 12 Patient to be seen for Manual therapy (25447), Therapeutic exercise (02797), Neuromuscular re-education (40862), Self-nursing home management (08950), Therapeutic activities (96634), Patient/Family/Caregiver Education PLAN FOR NEXT VISIT: Continue to focus on bilateral LE passive stretching, trunk/core stretching and strengthening. SUBJECTIVE: Patient is placing acupuncture on hold due to Lyme disease infection still being present. He felt that her antibiotics were interfering with her nerves. She notes that the last 2 times with the acupuncture that she was experiencing restlessness in the L leg that was very uncomfortable. Patient continues to have increased R knee pain at night that wakes her at night with the R knee feeling like it is burning and sore and then she cannot move it. She is waking every hour at night and wakes her to stand her up and put her in weight bearing. Her tries to get her in standing at the sink and she tries to stretch her R hamstrings and calf muscles. She has tried THC cream, Voltaren, Blue Emu and another from her Lyme doctor that has Baclofen and Cyclobenzaprine and this is also not helping.. Pain: Pain Pain Level: 3 Pain Location: Knee - Right Post Treatment Pain Post Treatment Pain Level: Better Post Treatment Pain Location: Knee - Right PROMIS Scales 03/31/2024 03/25/2024 03/02/2024 Higher is Better Phys Func - Score 24 (severe dysfunction) 23 (severe dysfunction) Phys Func - Percentile 0 0 Self-Eff Symptom - Score 36 (Low) Self-Eff Symptom - Percentile 8 T-scores: mean of general population = 50. 5 points is clinically meaningfully difference Percentiles provide an indication of how the patient's score ranks in relation to the general population. Higher percentile rankings indicate better function/quality of life. 50th percentile is the average of the general population and indicates half of respondents had a worse score. OBJECTIVE MEASURES WITH LEVEL OF FUNCTION: LE AROM R Knee Extension: -40 Degrees R Knee Flexion: 100 Degrees L Knee Extension: -25 Degrees L Knee Flexion: 105 Degrees LE PROM R Knee Extension: -25 Degrees L Knee Extension: -15 Degrees LE Strength R Hip Flexion (L2): 4+/5 R Hip ABduction: 4+/5 (4-4+/5) R Knee Extension (L3): (4-4+/5 in available ROM) R Knee Flexion: 4+/5 L Hip Flexion (L2): 4+/5 L Hip ABduction: (4-4+/5) L Hip ADduction: 4+/5 L Knee Extension (L3): 4+/5 (In available ROM) L Knee Flexion: 4+/5 Mobility Supine To Sit: Minimal Assistance (Trunk and LE management) Sit to Supine: Minimal Assistance (LE management) Sit To Stand: Moderate Assistance Stand To Sit: Moderate Assistance Bed To Chair: Minimal Assistance (Pivot disc used) Bed To Chair Transfer Type: Stand Pivot (With pivot disc) TREATMENT: Therapeutic Exercise: 5: Supine bridging 2 x 15 reps over yellow ball 7: SAQ 2 x 15 reps over yellow ball each LE with assist 8: Supine lower trunk rotation with assist with bilateral LE rested on yellow therapy ball x 15 each direction 9: Supine bilateral knee flexion rolling on large yellow theraball 2 x 15 reps (Did not complete today) 10: Supine hamstrings stretch with strap x 5 reps w/ 15 sec hold each LE 16: Seated resisted dorsiflexion/plantar flexion 2 x 15 reps each with pink band Skilled Intervention: Skilled judgment was used in selection of appropriate interventions. Completed Progress Report for Bilateral LE strength testing, bilateral knee AROM/PROM, mobility assessment. Manual Therapy: 1: Passive stretching to each LE for hips flexion, abduction, hip ER and IR in flexion and hamstrings stretching, knees flexion/extension and bilateral calf stretches x 15 reps each. Skilled Intervention: Manual skills to improve joint mobility, ROM, and decrease pain. Utilized anatomy knowledge of the therapist, and assessment of patient's response to intervention. Billing Therapeutic Exercise Treatment Minutes: 30 Manual TherapyTreatment Minutes: 25 Skilled Treatment Time Minutes (timed and untimed codes): 55 Total Session Time (minutes): 65 Session Start Time : 1545 Session Stop Time : 1650 Nathan Madrigal PT, MBA documented in this encounter [facility] 04-03-2024 Note HNO ID: [id number] Author: CORI HOPE R Ac Service: ? Author Type: Diplomat of Acupuncture Type: Progress Notes Filed: 04/03/2024 15:59 Note Text: Waldemar Hudson a 68 year old female presents to the acupuncture clinic on 04/03/24 for a follow up visit. Patient identity confirmed by name and : Yes This is the 18 visit for the patient this year It has been 1 week(s) since the last acupuncture treatment. Last treatment date: 03/25/2024 Initial Acupuncture treatment date: 11/12/2023 Chief Complaint: Primary lateral sclerosis, right lateral knee pain, muscle spasticity SUBJECTIVE Patient and I discussed holding off on acupuncture until patient finishes the courses of antibiotics. Patient seems started experiencing restless leg noticeably since 2 weeks ago. Patient's spouse mentions it seemed the condition began after patient stopped NAD infusion. Patient states she noticed more onset of restless leg syndrome with fatigue however she feels more energy since she started taking antibiotics. Today, her restless leg condition on left leg was more than usual with moderate discomfort, I removed the needles 5 minutes earlier than the usual days. Patient's Lyme Disease specialist will direct patient to courses of antibiotics for 2 months. Postponed corticosteroidal injection. 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 Patient might need to hold off on scheduled knee injection as she has bacterial infection. * Past history of thyroid cancer We discussed trying Cryptolepsis as a natural herbal antibiotic approach to fight against Lyme. I provided patient with the product information. Hold off on taking Alfredo Gaytan until she finished baclofen. Cryptolepsis has been ordered. Patient noted her right knee pain was much improved for a few days following the previous acupuncture. Patient has been battling MS since 2012. Patient has history of Lyme disease, mold exposure and thyroid cancer. Thyroidism Trialed PT, dry needling, chiropractic, massage. PAIN ASSESSMENT: Currently experiencing pain Pain level (0 no pain at all to 10 being the worst): 4 OBJECTIVE: Physical Exam: Tenderness: knees and feet Pain with palpation: na ROM: limited ROM Orthopedic Tests: na Tightness: knees Divina/Trigger points: na Visual Inspection Discoloration: na Edema: no Gait/Ambulation: normal Ovalle: good Qi/Patient vitality: normal Alert Well-Groomed Normal Imaging reports Images on file See EPIC Images have been reviewed no TCM Tongue: NA TCM Pulse: thin and weak ASSESSMENT Patient presents with signs and symptoms consistent with the diagnosis. Patient would benefit from acupuncture therapy to address listed deficiencies and return to PLOF. Pt was educated on symptoms, prognosis, plan of care and activity modifications. Pt verbalized understanding and agreed to begin care. TCM Pattern: PLS due to Qi and blood deficiency. TCM Treatment Principle: Calm Ovalle. Promote smooth flow of Qi and blood. Open channel. Reduce pain. PLAN OF CARE Counseled patient on risks of acupuncture treatment including pain, infection, bleeding, and no relief of pain. The patient was positioned comfortably. There was no evidence of infection at the site of needle insertions. Acupuncture Treatment: Treatment/Needle Set 1, Supine: Points: Motor line 2 points bilaterally on the scalp, Jerilyn ed Da austen, SJ3, GB41, ST43, SP9, GB34 15 minutes face to face with patient for set 1 Treatment/Needle Set 2, Supine: Points: R: Xi Dinh, LV8, 3 points on the lateral knee, B: ST36, SP6, KD3 10 minutes face to face with patient for set 2 Calcium were retained for 30 minutes # of needles inserted: 30 # of needles withdrawn: 30 Adjunct techniques used: TDP Infrared Heat Lamp- Applied to Rt. Hip and right knee Patient tolerated the procedure well. UNIVERSAL PROTOCOL / SAFETY CHECKLIST Procedure to be Performed: Acupuncture Sign In: A Moment of CARE was completed. Personnel directly involved with the procedure wore the appropriate PPE (Personal Protective Equipment). Patient/Surrogate Stated/Verified: PATIENT VERIFIED(optional for EMERGENT procedures): Patient name, Date of , Relevant allergies, and The intended procedure Time Out Communication: Intended patient and procedure match the source documents. Consent documented and matches the intended procedure. Sign Out: SIGN OUT (optional for EMERGENT procedures): All instruments, equipment, possible retained foreign bodies accounted for. Trenton Hanson Provider Name: Trenton Hanson 25 Total minutes face to face time spent with patient Acupuncture and [place] herbal therapy are not a substitute for conventional medical diagnosis and treatment. Patient agrees that either: 1. A diagnostic exam has been performed by a physician or chiropractor within the last six months regarding the condition f (more content not included)... [facility] 04-03-2024 History of Present illness Narrative Waldemar Hudson a 68 year old female presents to the acupuncture clinic on 04/03/24 for a follow up visit. Patient identity confirmed by name and : Yes This is the 18 visit for the patient this year It has been 1 week(s) since the last acupuncture treatment. Last treatment date: 03/25/2024 Initial Acupuncture treatment date: 11/12/2023 Chief Complaint: Primary lateral sclerosis, right lateral knee pain, muscle spasticity SUBJECTIVE Patient and I discussed holding off on acupuncture until patient finishes the courses of antibiotics. Patient seems started experiencing restless leg noticeably since 2 weeks ago. Patient's spouse mentions it seemed the condition began after patient stopped NAD infusion. Patient states she noticed more onset of restless leg syndrome with fatigue however she feels more energy since she started taking antibiotics. Today, her restless leg condition on left leg was more than usual with moderate discomfort, I removed the needles 5 minutes earlier than the usual days. Patient's Lyme Disease specialist will direct patient to courses of antibiotics for 2 months. Postponed corticosteroidal injection. 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 Patient might need to hold off on scheduled knee injection as she has bacterial infection. * Past history of thyroid cancer We discussed trying Cryptolepsis as a natural herbal antibiotic approach to fight against Lyme. I provided patient with the product information. Hold off on taking Alfredo Gaytan until she finished baclofen. Cryptolepsis has been ordered. Patient noted her right knee pain was much improved for a few days following the previous acupuncture. Patient has been battling MS since 2012. Patient has history of Lyme disease, mold exposure and thyroid cancer. Thyroidism Trialed PT, dry needling, chiropractic, massage. PAIN ASSESSMENT: Currently experiencing pain Pain level (0 no pain at all to 10 being the worst): 4 OBJECTIVE: Physical Exam: Tenderness: knees and feet Pain with palpation: na ROM: limited ROM Orthopedic Tests: na Tightness: knees Divina/Trigger points: na Visual Inspection Discoloration: na Edema: no Gait/Ambulation: normal Ovalle: good Qi/Patient vitality: normal Alert Well-Groomed Normal Imaging reports Images on file See EPIC Images have been reviewed no TCM Tongue: NA TCM Pulse: thin and weak ASSESSMENT Patient presents with signs and symptoms consistent with the diagnosis. Patient would benefit from acupuncture therapy to address listed deficiencies and return to PLOF. Pt was educated on symptoms, prognosis, plan of care and activity modifications. Pt verbalized understanding and agreed to begin care. TCM Pattern: PLS due to Qi and blood deficiency. TCM Treatment Principle: Calm Ovalle. Promote smooth flow of Qi and blood. Open channel. Reduce pain. PLAN OF CARE Counseled patient on risks of acupuncture treatment including pain, infection, bleeding, and no relief of pain. The patient was positioned comfortably. There was no evidence of infection at the site of needle insertions. Acupuncture Treatment: Treatment/Needle Set 1, Supine: Points: Motor line 2 points bilaterally on the scalp, Jerilyn ed Da austen, SJ3, GB41, ST43, SP9, GB34 15 minutes face to face with patient for set 1 Treatment/Needle Set 2, Supine: Points: R: Xi Dinh, LV8, 3 points on the lateral knee, B: ST36, SP6, KD3 10 minutes face to face with patient for set 2 Calcium were retained for 30 minutes # of needles inserted: 30 # of needles withdrawn: 30 Adjunct techniques used: TDP Infrared Heat Lamp- Applied to Rt. Hip and right knee Patient tolerated the procedure well. UNIVERSAL PROTOCOL / SAFETY CHECKLIST Procedure to be Performed: Acupuncture Sign In: A Moment of CARE was completed. Personnel directly involved with the procedure wore the appropriate PPE (Personal Protective Equipment). Patient/Surrogate Stated/Verified: PATIENT VERIFIED(optional for EMERGENT procedures): Patient name, Date of , Relevant allergies, and The intended procedure Time Out Communication: Intended patient and procedure match the source documents. Consent documented and matches the intended procedure. Sign Out: SIGN OUT (optional for EMERGENT procedures): All instruments, equipment, possible retained foreign bodies accounted for. Trenton Hanson Provider Name: Trenton Hanson 25 Total minutes face to face time spent with patient Acupuncture and [place] herbal therapy are not a substitute for conventional medical diagnosis and treatment. Patient agrees that either: 1. A diagnostic exam has been performed by a physician or chiropractor within the last six months regarding the condition for which they are seeking acupuncture treatment. or 2. If no diagnostic exam by a physician or chiropractor has been done within the last six months regarding the condition for which patient is seeking treatment, the Processing Analyst, per [place] Law, recommends that this diagnostic exam be performed. documented in this encounter [facility] 04-01-2024 Note HNO ID: [id number] Author: DAJA GOMEZ PTA Service: ? Author Type: Clarity Specialists Type: Progress Notes Filed: 04/01/2024 16:39 Note Text: Episode Visit Count: 43 Therapist That Will Accept/Oversee The Plan Of Care: Nathan Madrigal PT, ANABELLE Start of Care Date: 10/03/23 Onset Date: 12/31/23 Plan of Care Certification Date: 02/29/24 Next Certification Due Date: 04/18/24 Patient Identified by Name and Date of : Yes REHABILITATION AND SPORTS THERAPY PHYSICAL THERAPY TREATMENT NOTE ASSESSMENT: Waldemar Hudson tolerated the session with decreased symptoms. She demonstrated ability to perform calf stretch with strap in supine this date but unable to stretch hamstring in same manner due to knee flexion contracture. The patient will continue to benefit from ongoing skilled physical therapy to progress toward set goals. PLAN FOR NEXT VISIT: Continue to trial hamstring and calf stretches as tolerated with strap in supine SUBJECTIVE: Patient reported that she started a new medicated cream and it is helping her right knee a little at night and was not up as many times last night. Pain: Pain Pain Level: 3 Pain Location: Knee - Right Post Treatment Pain Post Treatment Pain Level: Better OBJECTIVE MEASURES WITH LEVEL OF FUNCTION: No objective measures taken this date. TREATMENT: Therapeutic Exercise: 5: Supine bridging 2 x 15 reps over yellow ball 7: SAQ 2 x 15 reps over yellow ball each LE with assist 8: Supine lower trunk rotation with assist with bilateral LE rested on yellow therapy ball x 15 each direction 9: Supine bilateral knee flexion rolling on large yellow theraball 2 x 15 reps 10: Supine calf stretch with strap x 5 reps w/ 15 sec hold each LE 16: Seated resisted dorsiflexion/plantar flexion x 20 reps each with pink band Skilled Intervention: Patient was educated in proper exercise technique and purpose for exercises. Skilled judgment was used in selection of appropriate interventions. Manual Therapy: 1: Passive stretching to each LE for hips flexion, abduction, hip ER and IR in flexion and hamstrings stretching, knees flexion/extension and bilateral calf stretches x 15 reps each. Skilled Intervention: Manual skills to improve joint mobility, ROM, and decrease pain. Utilized anatomy knowledge of the therapist, and assessment of patient's response to intervention. Neuromuscular Re-Education: 2: Seated on side of plinth and lateral stretch over large yellow theraball x 10 reps each side and thenforward stretch onto large ball x 10 reps Skilled Intervention: Close SBA for safety with stretch Billing Therapeutic Exercise Treatment Minutes: 20 Manual TherapyTreatment Minutes: 25 Neuromuscular Re-Education Treatment Minutes: 5 Skilled Treatment Time Minutes (timed and untimed codes): 50 Total Session Time (minutes): 63 Session Start Time : 1530 Session Stop Time : 1633 Daja Gomez [facility] 04-01-2024 History of Present illness Narrative Episode Visit Count: 43 Therapist That Will Accept/Oversee The Plan Of Care: Nathan Madrigal PT, ANABELLE Start of Care Date: 10/03/23 Onset Date: 12/31/23 Plan of Care Certification Date: 02/29/24 Next Certification Due Date: 04/18/24 Patient Identified by Name and Date of : Yes REHABILITATION AND SPORTS THERAPY PHYSICAL THERAPY TREATMENT NOTE ASSESSMENT: Waldemar Hudson tolerated the session with decreased symptoms. She demonstrated ability to perform calf stretch with strap in supine this date but unable to stretch hamstring in same manner due to knee flexion contracture. The patient will continue to benefit from ongoing skilled physical therapy to progress toward set goals. PLAN FOR NEXT VISIT: Continue to trial hamstring and calf stretches as tolerated with strap in supine SUBJECTIVE: Patient reported that she started a new medicated cream and it is helping her right knee a little at night and was not up as many times last night. Pain: Pain Pain Level: 3 Pain Location: Knee - Right Post Treatment Pain Post Treatment Pain Level: Better OBJECTIVE MEASURES WITH LEVEL OF FUNCTION: No objective measures taken this date. TREATMENT: Therapeutic Exercise: 5: Supine bridging 2 x 15 reps over yellow ball 7: SAQ 2 x 15 reps over yellow ball each LE with assist 8: Supine lower trunk rotation with assist with bilateral LE rested on yellow therapy ball x 15 each direction 9: Supine bilateral knee flexion rolling on large yellow theraball 2 x 15 reps 10: Supine calf stretch with strap x 5 reps w/ 15 sec hold each LE 16: Seated resisted dorsiflexion/plantar flexion x 20 reps each with pink band Skilled Intervention: Patient was educated in proper exercise technique and purpose for exercises. Skilled judgment was used in selection of appropriate interventions. Manual Therapy: 1: Passive stretching to each LE for hips flexion, abduction, hip ER and IR in flexion and hamstrings stretching, knees flexion/extension and bilateral calf stretches x 15 reps each. Skilled Intervention: Manual skills to improve joint mobility, ROM, and decrease pain. Utilized anatomy knowledge of the therapist, and assessment of patient's response to intervention. Neuromuscular Re-Education: 2: Seated on side of plinth and lateral stretch over large yellow theraball x 10 reps each side and thenforward stretch onto large ball x 10 reps Skilled Intervention: Close SBA for safety with stretch Billing Therapeutic Exercise Treatment Minutes: 20 Manual TherapyTreatment Minutes: 25 Neuromuscular Re-Education Treatment Minutes: 5 Skilled Treatment Time Minutes (timed and untimed codes): 50 Total Session Time (minutes): 63 Session Start Time : 1530 Session Stop Time : 1633 Daja Gomez PTA documented in this encounter [facility] 03-31-2024 Telephone encounter Note The following approved medication requests have been transmitted electronically. Requested Prescriptions Signed Prescriptions Disp Refills NUEDEXTA 20-10 mg capsule 90 capsule 5 Sig: Take 1 capsule by mouth three times a day. Authorizing Provider: JOAN PRIETO MD [facility] 03-31-2024 Miscellaneous Notes The following approved medication requests have been transmitted electronically. Requested Prescriptions Signed Prescriptions Disp Refills NUEDEXTA 20-10 mg capsule 90 capsule 5 Sig: Take 1 capsule by mouth three times a day. Authorizing Provider: JOAN PRIETO MD documented in this encounter [facility] 03-28-2024 Note HNO ID: [id number] Author: DAJA GOMEZ PTA Service: ? Author Type: [employer] Type: Progress Notes Filed: 03/28/2024 16:30 Note Text: Episode Visit Count: 42 Therapist That Will Accept/Oversee The Plan Of Care: Nathan Madrigal PT, MBA Start of Care Date: 10/03/23 Onset Date: 12/31/23 Plan of Care Certification Date: 02/29/24 Next Certification Due Date: 04/18/24 Patient Identified by Name and Date of : Yes REHABILITATION AND SPORTS THERAPY PHYSICAL THERAPY TREATMENT NOTE ASSESSMENT: Waldemar Hudson tolerated the session with less right knee pain. She demonstrated right knee spasms at times with passive stretching which does cause increased pain. The patient does have occasional left LE spasms however she reported that her left is not painful when this occurs. The patient will continue to benefit from ongoing skilled physical therapy to progress toward set goals. PLAN FOR NEXT VISIT: Trial supine hamstring stretch with strap SUBJECTIVE: Patient reported that she was up about 5 times last night due to right knee pain. Pain: Pain Pain Level: 3 Pain Location: Knee - Right Post Treatment Pain Post Treatment Pain Level: Better OBJECTIVE MEASURES WITH LEVEL OF FUNCTION: TREATMENT: Therapeutic Exercise: 3: Seated long sitting calf stretch with strap x 3 reps w/ 30 sec hold each LE with LE elevated on stool 4: Seated bilateral hamstrings stretch with bilateral LE rested on stool x 5, hold 10 seconds 5: Supine bridging 2 x 15 reps over yellow ball 7: SAQ 2 x 15 reps over yellow ball each LE with assist 8: Supine lower trunk rotation with assist with bilateral LE rested on yellow therapy ball x 15 each direction 9: Supine bilateral knee flexion rolling on large yellow theraball 2 x 15 reps Skilled Intervention: Patient was educated in proper exercise technique and purpose for exercises. Skilled judgment was used in selection of appropriate interventions. Manual Therapy: 1: Passive stretching to each LE for hips flexion, abduction, hip ER and IR in flexion and hamstrings stretching, knees flexion/extension and bilateral calf stretches x 15 reps each. Skilled Intervention: Manual skills to improve joint mobility, ROM, and decrease pain. Utilized anatomy knowledge of the therapist, and assessment of patient's response to intervention. Neuromuscular Re-Education: 2: Seated on side of plinth and lateral stretch over large yellow theraball x 10 reps each side and thenforward stretch onto large ball x 10 reps Skilled Intervention: Close supervision for safety Billing Therapeutic Exercise Treatment Minutes: 15 Manual TherapyTreatment Minutes: 30 Neuromuscular Re-Education Treatment Minutes: 5 Skilled Treatment Time Minutes (timed and untimed codes): 50 Total Session Time (minutes): 56 Session Start Time : 1530 Session Stop Time : 1626 Daja Gomez [facility] 03-28-2024 History of Present illness Narrative Episode Visit Count: 42 Therapist That Will Accept/Oversee The Plan Of Care: Nathan Madrigal PT, ANABELLE Start of Care Date: 10/03/23 Onset Date: 12/31/23 Plan of Care Certification Date: 02/29/24 Next Certification Due Date: 04/18/24 Patient Identified by Name and Date of : Yes REHABILITATION AND SPORTS THERAPY PHYSICAL THERAPY TREATMENT NOTE ASSESSMENT: Waldemar Hudson tolerated the session with less right knee pain. She demonstrated right knee spasms at times with passive stretching which does cause increased pain. The patient does have occasional left LE spasms however she reported that her left is not painful when this occurs. The patient will continue to benefit from ongoing skilled physical therapy to progress toward set goals. PLAN FOR NEXT VISIT: Trial supine hamstring stretch with strap SUBJECTIVE: Patient reported that she was up about 5 times last night due to right knee pain. Pain: Pain Pain Level: 3 Pain Location: Knee - Right Post Treatment Pain Post Treatment Pain Level: Better OBJECTIVE MEASURES WITH LEVEL OF FUNCTION: TREATMENT: Therapeutic Exercise: 3: Seated long sitting calf stretch with strap x 3 reps w/ 30 sec hold each LE with LE elevated on stool 4: Seated bilateral hamstrings stretch with bilateral LE rested on stool x 5, hold 10 seconds 5: Supine bridging 2 x 15 reps over yellow ball 7: SAQ 2 x 15 reps over yellow ball each LE with assist 8: Supine lower trunk rotation with assist with bilateral LE rested on yellow therapy ball x 15 each direction 9: Supine bilateral knee flexion rolling on large yellow theraball 2 x 15 reps Skilled Intervention: Patient was educated in proper exercise technique and purpose for exercises. Skilled judgment was used in selection of appropriate interventions. Manual Therapy: 1: Passive stretching to each LE for hips flexion, abduction, hip ER and IR in flexion and hamstrings stretching, knees flexion/extension and bilateral calf stretches x 15 reps each. Skilled Intervention: Manual skills to improve joint mobility, ROM, and decrease pain. Utilized anatomy knowledge of the therapist, and assessment of patient's response to intervention. Neuromuscular Re-Education: 2: Seated on side of plinth and lateral stretch over large yellow theraball x 10 reps each side and thenforward stretch onto large ball x 10 reps Skilled Intervention: Close supervision for safety Billing Therapeutic Exercise Treatment Minutes: 15 Manual TherapyTreatment Minutes: 30 Neuromuscular Re-Education Treatment Minutes: 5 Skilled Treatment Time Minutes (timed and untimed codes): 50 Total Session Time (minutes): 56 Session Start Time : 0 Session Stop Time : 1625 Daja Gomez PTA documented in this encounter [facility] 03-25-2024 Note HNO ID: [id number] Author: DAJA GOMEZ PTA Service: ? Author Type: [employer] Type: Progress Notes Filed: 03/25/2024 17:00 Note Text: Episode Visit Count: 41 Therapist That Will Accept/Oversee The Plan Of Care: Nathan Madrigal PT, ANABELLE Start of Care Date: 10/03/23 Onset Date: 12/31/23 Plan of Care Certification Date: 02/29/24 Next Certification Due Date: 04/18/24 Patient Identified by Name and Date of : Yes REHABILITATION AND SPORTS THERAPY PHYSICAL THERAPY TREATMENT NOTE ASSESSMENT: Waldemar Hudson tolerated the session with decreased symptoms. She demonstrated continued inflexibility bilateral hamstring R>L. The patient will continue to benefit from ongoing skilled physical therapy to progress toward set goals. PLAN FOR NEXT VISIT: May add long sitting calf stretch with strap next session. SUBJECTIVE: Patient reported that she had accupuncture this a.m. She also reported that she has had her power chair for 1 week and they have gotten one estimate for the elevator in their home and will be getting another one. She reported that she has been getting up 7-8 times at night and has been on Flexeril and does not feel like it is helping her and may be making her speech worse. Pain: Pain Pain Level: 3 Pain Location: Knee - Right Description: Aching, Burning, Sharp Post Treatment Pain Post Treatment Pain Level: Better OBJECTIVE MEASURES WITH LEVEL OF FUNCTION: No objective measures taken this date. TREATMENT: Therapeutic Exercise: 2: Seated hamstrings stretch with leg rested on stool x 5, hold 10 seconds each LE with therapist adding additional stretch into knee extension 4: Seated bilateral hamstrings stretch with bilateral LE rested on stool x 5, hold 10 seconds 5: Supine bridging 2 x 15 reps over yellow ball 7: SAQ 2 x 15 reps over yellow ball each LE with assist 8: Supine lower trunk rotation with assist with bilateral LE rested on yellow therapy ball x 15 each direction 9: Supine bilateral knee flexion rolling on large yellow theraball 2 x 15 reps 16: Seated resisted dorsiflexion/plantar flexion x 20 reps each with pink band Skilled Intervention: Patient was educated in proper exercise technique and purpose for exercises. Skilled judgment was used in selection of appropriate interventions. Manual Therapy: 1: Passive stretching to each LE for hips flexion, abduction, hip ER and IR in flexion and hamstrings stretching, knees flexion/extension and bilateral calf stretches x 15 reps each. Skilled Intervention: Manual skills to improve joint mobility, ROM, and decrease pain. Utilized anatomy knowledge of the therapist, and assessment of patient's response to intervention. Billing Therapeutic Exercise Treatment Minutes: 20 Manual TherapyTreatment Minutes: 25 Neuromuscular Re-Education Treatment Minutes: 5 Skilled Treatment Time Minutes (timed and untimed codes): 50 Total Session Time (minutes): 60 Session Start Time : 1534 Session Stop Time : 1634 Daja Gomez PTA [facility] 03-25-2024 History of Present illness Narrative Episode Visit Count: 41 Therapist That Will Accept/Oversee The Plan Of Care: Nathan Madrigal PT, ANABELLE Start of Care Date: 10/03/23 Onset Date: 12/31/23 Plan of Care Certification Date: 02/29/24 Next Certification Due Date: 04/18/24 Patient Identified by Name and Date of : Yes REHABILITATION AND SPORTS THERAPY PHYSICAL THERAPY TREATMENT NOTE ASSESSMENT: Waldemar Hudson tolerated the session with decreased symptoms. She demonstrated continued inflexibility bilateral hamstring R>L. The patient will continue to benefit from ongoing skilled physical therapy to progress toward set goals. PLAN FOR NEXT VISIT: May add long sitting calf stretch with strap next session. SUBJECTIVE: Patient reported that she had accupuncture this a.m. She also reported that she has had her power chair for 1 week and they have gotten one estimate for the elevator in their home and will be getting another one. She reported that she has been getting up 7-8 times at night and has been on Flexeril and does not feel like it is helping her and may be making her speech worse. Pain: Pain Pain Level: 3 Pain Location: Knee - Right Description: Aching, Burning, Sharp Post Treatment Pain Post Treatment Pain Level: Better OBJECTIVE MEASURES WITH LEVEL OF FUNCTION: No objective measures taken this date. TREATMENT: Therapeutic Exercise: 2: Seated hamstrings stretch with leg rested on stool x 5, hold 10 seconds each LE with therapist adding additional stretch into knee extension 4: Seated bilateral hamstrings stretch with bilateral LE rested on stool x 5, hold 10 seconds 5: Supine bridging 2 x 15 reps over yellow ball 7: SAQ 2 x 15 reps over yellow ball each LE with assist 8: Supine lower trunk rotation with assist with bilateral LE rested on yellow therapy ball x 15 each direction 9: Supine bilateral knee flexion rolling on large yellow theraball 2 x 15 reps 16: Seated resisted dorsiflexion/plantar flexion x 20 reps each with pink band Skilled Intervention: Patient was educated in proper exercise technique and purpose for exercises. Skilled judgment was used in selection of appropriate interventions. Manual Therapy: 1: Passive stretching to each LE for hips flexion, abduction, hip ER and IR in flexion and hamstrings stretching, knees flexion/extension and bilateral calf stretches x 15 reps each. Skilled Intervention: Manual skills to improve joint mobility, ROM, and decrease pain. Utilized anatomy knowledge of the therapist, and assessment of patient's response to intervention. Billing Therapeutic Exercise Treatment Minutes: 20 Manual TherapyTreatment Minutes: 25 Neuromuscular Re-Education Treatment Minutes: 5 Skilled Treatment Time Minutes (timed and untimed codes): 50 Total Session Time (minutes): 60 Session Start Time : 1534 Session Stop Time : 1634 Daja Gomez PTA documented in this encounter [facility] 03-25-2024 Note HNO ID: [id number] Author: CORI HOPE R Ac Service: ? Author Type: [employer] Acupuncture Type: Progress Notes Filed: 03/25/2024 13:12 Note Text: Waldemar Hudson a 68 year old female presents to the acupuncture clinic on 03/25/24 for a follow up visit. Patient identity confirmed by name and : Yes This is the 17 visit for the patient this year It has been 2 week(s) since the last acupuncture treatment. Last treatment date: 03/13/2024 Initial Acupuncture treatment date: 11/12/2023 Chief Complaint: Primary lateral sclerosis, right lateral knee pain, muscle spasticity SUBJECTIVE Patient has been experiencing nighttime muscle spasm which has been waking her up. Patient gets involuntary muscle cramps with light pressure or stimulation made to her muscle. She started taking Flexeril without noticing relief yet. Patient's Lyme Disease specialist will direct patient to courses of antibiotics for 2 months. Postponed corticosteroidal injection. 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 Patient might need to hold off on scheduled knee injection as she has bacterial infection. * Past history of thyroid cancer We discussed trying Cryptolepsis as a natural herbal antibiotic approach to fight against Lyme. I provided patient with the product information. Hold off on taking Alfredo Gaytan until she finished baclofen. Cryptolepsis has been ordered. Patient noted her right knee pain was much improved for a few days following the previous acupuncture. Patient has been battling MS since 2012. Patient has history of Lyme disease, mold exposure and thyroid cancer. Thyroidism Trialed PT, dry needling, chiropractic, massage. PAIN ASSESSMENT: Currently experiencing pain Pain level (0 no pain at all to 10 being the worst): 4 OBJECTIVE: Physical Exam: Tenderness: knees and feet Pain with palpation: na ROM: limited ROM Orthopedic Tests: na Tightness: knees Divina/Trigger points: na Visual Inspection Discoloration: na Edema: no Gait/Ambulation: normal Ovalle: good Qi/Patient vitality: normal Alert Well-Groomed Normal Imaging reports Images on file See EPIC Images have been reviewed no TCM Tongue: NA TCM Pulse: thin and weak ASSESSMENT Patient presents with signs and symptoms consistent with the diagnosis. Patient would benefit from acupuncture therapy to address listed deficiencies and return to PLOF. Pt was educated on symptoms, prognosis, plan of care and activity modifications. Pt verbalized understanding and agreed to begin care. TCM Pattern: PLS due to Qi and blood deficiency. TCM Treatment Principle: Calm Ovalle. Promote smooth flow of Qi and blood. Open channel. Reduce pain. PLAN OF CARE Counseled patient on risks of acupuncture treatment including pain, infection, bleeding, and no relief of pain. The patient was positioned comfortably. There was no evidence of infection at the site of needle insertions. Acupuncture Treatment: Treatment/Needle Set 1, Supine: Points: Motor line 2 points bilaterally on the scalp, Jerilyn gu Da austen, SJ3, GB41, ST43, SP9, GB34 15 minutes face to face with patient for set 1 Treatment/Needle Set 2, Supine: Points: R: Xi Dinh, LV8, He Ding, 3 points on the lateral knee, B: ST36, SP6, KD3 10 minutes face to face with patient for set 2 Calcium were retained for 30 minutes # of needles inserted: 31 # of needles withdrawn: 31 Adjunct techniques used: TDP Infrared Heat Lamp- Applied to Rt. Hip and right knee Patient tolerated the procedure well. UNIVERSAL PROTOCOL / SAFETY CHECKLIST Procedure to be Performed: Acupuncture Sign In: A Moment of CARE was completed. Personnel directly involved with the procedure wore the appropriate PPE (Personal Protective Equipment). Patient/Surrogate Stated/Verified: PATIENT VERIFIED(optional for EMERGENT procedures): Patient name, Date of , Relevant allergies, and The intended procedure Time Out Communication: Intended patient and procedure match the source documents. Consent documented and matches the intended procedure. Sign Out: SIGN OUT (optional for EMERGENT procedures): All instruments, equipment, possible retained foreign bodies accounted for. Trenton Hasnon Provider Name: Trenton Hanson 25 Total minutes face to face time spent with patient Acupuncture and [place] herbal therapy are not a substitute for conventional medical diagnosis and treatment. Patient agrees that either: 1. A diagnostic exam has been performed by a physician or chiropractor within the last six months regarding the condition for which they are seeking acupuncture treatment. or 2. If no diagnostic exam by a physician or chiropractor has been done within the last six months regarding the condition for which patient is seeking treatment, the Processing Analyst, per [place] Law, recommends that this diagnostic exam be performed. [facility] 03-25-2024 History of Present illness Narrative Waldemarquintin Hudson a 68 year old female presents to the acupuncture clinic on 03/25/24 for a follow up visit. Patient identity confirmed by name and : Yes This is the 17 visit for the patient this year It has been 2 week(s) since the last acupuncture treatment. Last treatment date: 03/13/2024 Initial Acupuncture treatment date: 11/12/2023 Chief Complaint: Primary lateral sclerosis, right lateral knee pain, muscle spasticity SUBJECTIVE Patient has been experiencing nighttime muscle spasm which has been waking her up. Patient gets involuntary muscle cramps with light pressure or stimulation made to her muscle. She started taking Flexeril without noticing relief yet. Patient's Lyme Disease specialist will direct patient to courses of antibiotics for 2 months. Postponed corticosteroidal injection. 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 Patient might need to hold off on scheduled knee injection as she has bacterial infection. * Past history of thyroid cancer We discussed trying Cryptolepsis as a natural herbal antibiotic approach to fight against Lyme. I provided patient with the product information. Hold off on taking Alfredo Gaytan until she finished baclofen. Cryptolepsis has been ordered. Patient noted her right knee pain was much improved for a few days following the previous acupuncture. Patient has been battling MS since 2012. Patient has history of Lyme disease, mold exposure and thyroid cancer. Thyroidism Trialed PT, dry needling, chiropractic, massage. PAIN ASSESSMENT: Currently experiencing pain Pain level (0 no pain at all to 10 being the worst): 4 OBJECTIVE: Physical Exam: Tenderness: knees and feet Pain with palpation: na ROM: limited ROM Orthopedic Tests: na Tightness: knees Divina/Trigger points: na Visual Inspection Discoloration: na Edema: no Gait/Ambulation: normal Ovalle: good Qi/Patient vitality: normal Alert Well-Groomed Normal Imaging reports Images on file See EPIC Images have been reviewed no TCM Tongue: NA TCM Pulse: thin and weak ASSESSMENT Patient presents with signs and symptoms consistent with the diagnosis. Patient would benefit from acupuncture therapy to address listed deficiencies and return to PLOF. Pt was educated on symptoms, prognosis, plan of care and activity modifications. Pt verbalized understanding and agreed to begin care. TCM Pattern: PLS due to Qi and blood deficiency. TCM Treatment Principle: Calm Ovalle. Promote smooth flow of Qi and blood. Open channel. Reduce pain. PLAN OF CARE Counseled patient on risks of acupuncture treatment including pain, infection, bleeding, and no relief of pain. The patient was positioned comfortably. There was no evidence of infection at the site of needle insertions. Acupuncture Treatment: Treatment/Needle Set 1, Supine: Points: Motor line 2 points bilaterally on the scalp, Jerilyn gu Da austen, SJ3, GB41, ST43, SP9, GB34 15 minutes face to face with patient for set 1 Treatment/Needle Set 2, Supine: Points: R: Xi Dinh, LV8, He Ding, 3 points on the lateral knee, B: ST36, SP6, KD3 10 minutes face to face with patient for set 2 Calcium were retained for 30 minutes # of needles inserted: 31 # of needles withdrawn: 31 Adjunct techniques used: TDP Infrared Heat Lamp- Applied to Rt. Hip and right knee Patient tolerated the procedure well. UNIVERSAL PROTOCOL / SAFETY CHECKLIST Procedure to be Performed: Acupuncture Sign In: A Moment of CARE was completed. Personnel directly involved with the procedure wore the appropriate PPE (Personal Protective Equipment). Patient/Surrogate Stated/Verified: PATIENT VERIFIED(optional for EMERGENT procedures): Patient name, Date of , Relevant allergies, and The intended procedure Time Out Communication: Intended patient and procedure match the source documents. Consent documented and matches the intended procedure. Sign Out: SIGN OUT (optional for EMERGENT procedures): All instruments, equipment, possible retained foreign bodies accounted for. Trenton Hanson Provider Name: Trenton Hanson 25 Total minutes face to face time spent with patient Acupuncture and [place] herbal therapy are not a substitute for conventional medical diagnosis and treatment. Patient agrees that either: 1. A diagnostic exam has been performed by a physician or chiropractor within the last six months regarding the condition for which they are seeking acupuncture treatment. or 2. If no diagnostic exam by a physician or chiropractor has been done within the last six months regarding the condition for which patient is seeking treatment, the Processing Analyst, per [place] Law, recommends that this diagnostic exam be performed. documented in this encounter [facility] 03-21-2024 Note HNO ID: [id number] Author: NATHAN MADRIGAL PT Service: ? Author Type: Physical Therapist Type: Progress Notes Filed: 03/21/2024 16:27 Note Text: Episode Visit Count: 40 Therapist That Will Accept/Oversee The Plan Of Care: Nathan Madrigal PT, ANABELLE Start of Care Date: 10/03/23 Onset Date: 12/31/23 Plan of Care Certification Date: 02/29/24 Next Certification Due Date: 04/18/24 Patient Identified by Name and Date of : Yes REHABILITATION AND SPORTS THERAPY PHYSICAL THERAPY TREATMENT NOTE ASSESSMENT: Waldemar Hudson tolerated the session with expected R LE > L LE hypertonia and bilateral hamstrings inflexibility. She demonstrated tolerance to added resisted ankle plantarflexion in sitting to encourage knee extension and added bilateral seated hamstrings/trunk flexion stretch today. The patient will continue to benefit from ongoing skilled physical therapy to progress toward set goals. PLAN FOR NEXT VISIT: May add long sitting calf stretch with strap next session. SUBJECTIVE: Patient notes that her R knee is feeling pretty bad today and that she was up 6 times last night as a result. Patient got her power wheelchair delivered on Sunday and notes that it is very comfortable and allows her to completely tilt back and elevates in height. It is also compact enough to allow her to get into her bathroom. Pain: Pain Pain Level: 3 Pain Location: Knee - Right Post Treatment Pain Post Treatment Pain Level: Better Post Treatment Pain Location: Knee - Right OBJECTIVE MEASURES WITH LEVEL OF FUNCTION: No objective measurements taken this date. TREATMENT: Therapeutic Exercise: 2: Seated hamstrings stretch with leg rested on stool x 5, hold 10 seconds each LE with therapist adding additional stretch into knee extension 3: Seated resisted ankle pumps with pink band in long sitting with therapist supporting ankles x 30 each LE 4: Seated bilateral hamstrings stretch with bilateral LE rested on stool x 5, hold 10 seconds 5: Supine bridging 2 x 15 reps over yellow ball 7: SAQ 2 x 15 reps over yellow ball each LE with assist 8: Supine lower trunk rotation with assist with bilateral LE rested on yellow therapy ball x 15 each direction 9: Supine bilateral knee flexion rolling on large yellow theraball 2 x 15 reps Skilled Intervention: Skilled judgment was used in selection of appropriate interventions. Correct performance of therapeutic exercises was facilitated with tactile cuing. Manual Therapy: 1: Passive stretching to each LE for hips flexion, abduction, hip ER and IR in flexion and hamstrings stretching, knees flexion/extension and bilateral calf stretches x 15 reps each. Skilled Intervention: Manual skills to improve joint mobility, ROM, and decrease pain. Utilized anatomy knowledge of the therapist, and assessment of patient's response to intervention. Billing Therapeutic Exercise Treatment Minutes: 18 Manual TherapyTreatment Minutes: 30 Skilled Treatment Time Minutes (timed and untimed codes): 48 Total Session Time (minutes): 54 Session Start Time : 1506 Session Stop Time : 1600 Nathan Madrigal PT, MBA [facility] 03-21-2024 History of Present illness Narrative Episode Visit Count: 40 Therapist That Will Accept/Oversee The Plan Of Care: Nathan Madrigal PT, MBA Start of Care Date: 10/03/23 Onset Date: 12/31/23 Plan of Care Certification Date: 02/29/24 Next Certification Due Date: 04/18/24 Patient Identified by Name and Date of : Yes REHABILITATION AND SPORTS THERAPY PHYSICAL THERAPY TREATMENT NOTE ASSESSMENT: Waldemar Hudson tolerated the session with expected R LE > L LE hypertonia and bilateral hamstrings inflexibility. She demonstrated tolerance to added resisted ankle plantarflexion in sitting to encourage knee extension and added bilateral seated hamstrings/trunk flexion stretch today. The patient will continue to benefit from ongoing skilled physical therapy to progress toward set goals. PLAN FOR NEXT VISIT: May add long sitting calf stretch with strap next session. SUBJECTIVE: Patient notes that her R knee is feeling pretty bad today and that she was up 6 times last night as a result. Patient got her power wheelchair delivered on Sunday and notes that it is very comfortable and allows her to completely tilt back and elevates in height. It is also compact enough to allow her to get into her bathroom. Pain: Pain Pain Level: 3 Pain Location: Knee - Right Post Treatment Pain Post Treatment Pain Level: Better Post Treatment Pain Location: Knee - Right OBJECTIVE MEASURES WITH LEVEL OF FUNCTION: No objective measurements taken this date. TREATMENT: Therapeutic Exercise: 2: Seated hamstrings stretch with leg rested on stool x 5, hold 10 seconds each LE with therapist adding additional stretch into knee extension 3: Seated resisted ankle pumps with pink band in long sitting with therapist supporting ankles x 30 each LE 4: Seated bilateral hamstrings stretch with bilateral LE rested on stool x 5, hold 10 seconds 5: Supine bridging 2 x 15 reps over yellow ball 7: SAQ 2 x 15 reps over yellow ball each LE with assist 8: Supine lower trunk rotation with assist with bilateral LE rested on yellow therapy ball x 15 each direction 9: Supine bilateral knee flexion rolling on large yellow theraball 2 x 15 reps Skilled Intervention: Skilled judgment was used in selection of appropriate interventions. Correct performance of therapeutic exercises was facilitated with tactile cuing. Manual Therapy: 1: Passive stretching to each LE for hips flexion, abduction, hip ER and IR in flexion and hamstrings stretching, knees flexion/extension and bilateral calf stretches x 15 reps each. Skilled Intervention: Manual skills to improve joint mobility, ROM, and decrease pain. Utilized anatomy knowledge of the therapist, and assessment of patient's response to intervention. Billing Therapeutic Exercise Treatment Minutes: 18 Manual TherapyTreatment Minutes: 30 Skilled Treatment Time Minutes (timed and untimed codes): 48 Total Session Time (minutes): 54 Session Start Time : 1506 Session Stop Time : 1600 Nathan Madrigal PT, ANABELLE documented in this encounter [facility] 03-18-2024 Telephone encounter Note Spoke to Pharmacist at patient's pharmacy regarding Flexeril prescription sent 03/17/24. Pharmacist informs that their mahan vigil is around $16.00, if run through patient's insurance company, cost is set at $30+. Prior authorization is not required. Medication is in stock at pharmacy. Spoke to patient and who were informed of above message. They are happy with that vigil and will pick up driver medication today. Advised to keep us update on effectiveness or any new, worsening, or persistent symptoms. [facility] 03-18-2024 Miscellaneous Notes Spoke to Pharmacist at patient's pharmacy regarding Flexeril prescription sent 03/17/24. Pharmacist informs that their mahan vigil is around $16.00, if run through patient's insurance company, cost is set at $30+. Prior authorization is not required. Medication is in stock at pharmacy. Spoke to patient and who were informed of above message. They are happy with that vigil and will pick up driver medication today. Advised to keep us update on effectiveness or any new, worsening, or persistent symptoms. documented in this encounter [facility] 03-17-2024 Instructions Lia Hope APRN.[employer] - 03/17/2024 1:27 PM EDT Will switch to flexeril to see if that can give you some relief with the spasticity as you did not tolerate the baclofen Will start prior auth for botox. documented in this encounter [facility] 03-17-2024 Note HNO ID: [id number] Author: LIA HOPE APRN.[employer] Service: ? Author Type: Nurse Practitioner Type: Progress Notes Filed: 03/20/2024 22:30 Note Text: IMPRESSION: Waldemar Hudson is a 68 year old female. PMHx of PLS. Notes onset of symptoms started in 2011. Previously followed by [facility] neurologist. Recently started following with the ALS Clinic at [facility]. Currently following with Dr. Alcaraz. She arrives today for spasticity follow up. 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) Pseudobulbar affect ACTIVE PROBLEM LIST Personal History of Malignant Neoplasm of Thyroid Esophageal Reflux Closed Fracture of Metatarsal Bone(s) Malignant Neoplasm of Thyroid Gland (Hcc) Calculus of Gallbladder With Other Cholecystitis, Without Mention of Obstruction GASTRITIS ANTRAL( W/O Hemorrhage) Sprain and Strain of Unspecified Site of Shoulder and Upper Arm Closed Fracture of One Or More Phalanges of Foot Dysmetabolic Syndrome X Unspecified Site of Sprain and Strain Congenital Pes Planus Skin Lesion Other Musculoskeletal Symptoms Referable to Limbs(729.89) Special Screening for Malignant Neoplasms, Colon Dysphagia, Unspecified(787.20) Motor Neuron Disease (Hcc) Gerd Without Esophagitis History of Thyroid Cancer Hypothyroidism Foot Cramps Menopausal and Postmenopausal Disorder Fatigue Vitamin D Deficiency Rectal Itching Sleep Disturbance Impaired Ambulation Muscle Spasticity Impaired Flexibility of Lower Extremity Abnormality of Gait Right Leg Pain Primary Lateral Sclerosis (Hcc) Decreased Coordination Decreased Barnum With Activities of Daily Living PLAN: ASSESSMENT/PLAN: ASSESSMENT/PLAN: 1. Spasticity - ICD9: 781.0, ICD10: R25.2 (primary diagnosis) - CYCLOBENZAPRINE 5 MG TABLET, baclofen discontinued due to side effects - continue with stretching and exercises daily - will start prior auth for botox injections 2. 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 Pseudobulbar affect - ICD9: 310.81, ICD10: F48.2 - continue nudexta No orders found for this visit on 03/17/24. Subjective: Patient presents with: 6 wk f/u: Spasticity, Primary lateral sclerosis, Pseudobulbar affect, Spastic dysarthria Was taking the baclofen for the spasticity but had to stop due to side effects. Continues to still have issues with mobility and relying more on wheelchair. notes she has declined with function. Spasticity feels worse with her legs. Continues with stretching at home. Also continues to follow with PT. Recent labs/Imaging related to complaint: No new labs/images Medications Reviewed cyclobenzaprine (FLEXERIL) 5 mg tablet Take 1 tablet by mouth three times a day. rifAMPin (RIFADIN) 300 mg capsule Take 300 mg by mouth once daily. Magnesium 200 mg tab Take 1 tablet by mouth once daily. levothyroxine (SYNTHROID) 112 mcg tablet NUEDEXTA 20-10 mg capsule Take 1 capsule by mouth two times a day. (Patient taking differently: Take 1 capsule by mouth two times a day. Taking three times a day.) nystatin (MYCOSTATIN, NILSTAT) 500,000 unit tab Take 2 tablets by mouth three times a day with meals. (Patient taking differently: Take 2 tablets by mouth three times a day with meals. PRN) TherBiotic Complete 120 Ct[address] (Klaire/Prothera) Take 1 capsule by mouth once daily. itraconazole 0.5 % (CPD) 1-2 sprays to each nostril twice daily Fish Oil-[place]-3 Fatty Acids 300-1,000 mg cap Take by mouth. Meriva-SR (Monae) decrease inflammation/pain/gut healing Take 1-2 capsules two times daily OARRS reviewed to confirm/clarify any controlled medications Allergies Reviewed PAST MEDICAL HISTORY: ACTIVE PROBLEM LIST Personal History of Malignant Neoplasm of Thyroid Esophageal Reflux Closed Fracture of Metatarsal Bone(s) Malignant Neoplasm of Thyroid Gland (Hcc) Calculus of Gallbladder With Other Cholecystitis, Without Mention of Obstruction GASTRITIS ANTRAL( W/O Hemorrhage) Sprain and Strain of Unspecified Site of Shoulder and Upper Arm Closed Fracture of One Or More Phalanges of Foot Dysmetabolic Syndrome X Unspecified Site of Sprain and Strain Congenital Pes Planus Skin Lesion Other Musculoskeletal Symptoms Referable to Limbs(505.89) Special Screening for Malignant Neoplasms, Colon Dysphagia, Unspecified(261.20) Motor Neuron Disease (Hcc) Gerd Without Esophagitis History of Thyroid Cancer Hypothyroidism Foot Cramps Menopausal and Postmenopausal Disorder Fatigue Vitamin D Deficiency Rectal Itching Sleep Disturbance Impaired Ambulation Muscle Spasticity Impaired Flexibility of Lower Extremity Abnormality of Gait Right Leg Pain Primary Lateral Sclerosis (Hcc) Decreased Coordination Decreased Barnum With Activities of Daily Living PAST SURGICAL HISTORY Procedure Laterality Date COLONOSC (more content not included)... [facility] 03-17-2024 History of Present illness Narrative IMPRESSION: Waldemar Hudson is a 68 year old female. PMHx of PLS. Notes onset of symptoms started in 2011. Previously followed by [facility] neurologist. Recently started following with the ALS Clinic at [facility]. Currently following with Dr. Alcaraz. She arrives today for spasticity follow up. 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) Pseudobulbar affect ACTIVE PROBLEM LIST Personal History of Malignant Neoplasm of Thyroid Esophageal Reflux Closed Fracture of Metatarsal Bone(s) Malignant Neoplasm of Thyroid Gland (Hcc) Calculus of Gallbladder With Other Cholecystitis, Without Mention of Obstruction GASTRITIS ANTRAL( W/O Hemorrhage) Sprain and Strain of Unspecified Site of Shoulder and Upper Arm Closed Fracture of One Or More Phalanges of Foot Dysmetabolic Syndrome X Unspecified Site of Sprain and Strain Congenital Pes Planus Skin Lesion Other Musculoskeletal Symptoms Referable to Limbs(729.89) Special Screening for Malignant Neoplasms, Colon Dysphagia, Unspecified(787.20) Motor Neuron Disease (Hcc) Gerd Without Esophagitis History of Thyroid Cancer Hypothyroidism Foot Cramps Menopausal and Postmenopausal Disorder Fatigue Vitamin D Deficiency Rectal Itching Sleep Disturbance Impaired Ambulation Muscle Spasticity Impaired Flexibility of Lower Extremity Abnormality of Gait Right Leg Pain Primary Lateral Sclerosis (Hcc) Decreased Coordination Decreased Barnum With Activities of Daily Living PLAN: ASSESSMENT/PLAN: ASSESSMENT/PLAN: 1. Spasticity - ICD9: 781.0, ICD10: R25.2 (primary diagnosis) - CYCLOBENZAPRINE 5 MG TABLET, baclofen discontinued due to side effects - continue with stretching and exercises daily - will start prior auth for botox injections 2. 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 Pseudobulbar affect - ICD9: 310.81, ICD10: F48.2 - continue nudexta No orders found for this visit on 03/17/24. Subjective: Patient presents with: 6 wk f/u: Spasticity, Primary lateral sclerosis, Pseudobulbar affect, Spastic dysarthria Was taking the baclofen for the spasticity but had to stop due to side effects. Continues to still have issues with mobility and relying more on wheelchair. notes she has declined with function. Spasticity feels worse with her legs. Continues with stretching at home. Also continues to follow with PT. Recent labs/Imaging related to complaint: No new labs/images Medications Reviewed cyclobenzaprine (FLEXERIL) 5 mg tablet Take 1 tablet by mouth three times a day. rifAMPin (RIFADIN) 300 mg capsule Take 300 mg by mouth once daily. Magnesium 200 mg tab Take 1 tablet by mouth once daily. levothyroxine (SYNTHROID) 112 mcg tablet NUEDEXTA 20-10 mg capsule Take 1 capsule by mouth two times a day. (Patient taking differently: Take 1 capsule by mouth two times a day. Taking three times a day.) nystatin (MYCOSTATIN, NILSTAT) 500,000 unit tab Take 2 tablets by mouth three times a day with meals. (Patient taking differently: Take 2 tablets by mouth three times a day with meals. PRN) TherBiotic Complete 120 Ct[address] (Klaire/Prothera) Take 1 capsule by mouth once daily. itraconazole 0.5 % (CPD) 1-2 sprays to each nostril twice daily Fish Oil-[place]-3 Fatty Acids 300-1,000 mg cap Take by mouth. Meriva-SR (Monae) decrease inflammation/pain/gut healing Take 1-2 capsules two times daily OARRS reviewed to confirm/clarify any controlled medications Allergies Reviewed PAST MEDICAL HISTORY: ACTIVE PROBLEM LIST Personal History of Malignant Neoplasm of Thyroid Esophageal Reflux Closed Fracture of Metatarsal Bone(s) Malignant Neoplasm of Thyroid Gland (Hcc) Calculus of Gallbladder With Other Cholecystitis, Without Mention of Obstruction GASTRITIS ANTRAL( W/O Hemorrhage) Sprain and Strain of Unspecified Site of Shoulder and Upper Arm Closed Fracture of One Or More Phalanges of Foot Dysmetabolic Syndrome X Unspecified Site of Sprain and Strain Congenital Pes Planus Skin Lesion Other Musculoskeletal Symptoms Referable to Limbs(735.81) Special Screening for Malignant Neoplasms, Colon Dysphagia, Unspecified(572.20) Motor Neuron Disease (Hcc) Gerd Without Esophagitis History of Thyroid Cancer Hypothyroidism Foot Cramps Menopausal and Postmenopausal Disorder Fatigue Vitamin D Deficiency Rectal Itching Sleep Disturbance Impaired Ambulation Muscle Spasticity Impaired Flexibility of Lower Extremity Abnormality of Gait Right Leg Pain Primary Lateral Sclerosis (Hcc) Decreased Coordination Decreased Barnum With Activities of Daily Living PAST SURGICAL HISTORY Procedure Laterality Date COLONOSCOPY FLX DX W/COLLJ SPEC WHEN PFRMD 09/03/2003 Colonoscopy COLONOSCOPY FLX DX W/COLLJ SPEC WHEN PFRMD 10/01/2014 Colonoscopy EGD TRANSORAL BIOPSY SINGLE/MULTIPLE 03/09/2006 Hiatal hernia/gastritis/esophagitis ESOPHAGOGASTRODUODENOSCOPY TRANSORAL DIAGNOSTIC 10/01/2014 EGD LAPS SURG CHOLECYSTECTOMY W/CHOLANGIOGRAPHY 03/12/2006 PAST SURGICAL HISTORY OF 03/12/2006 transvaginal sling REMOVAL SKN TAGS DIRECTOR CHECK FIBRQ TAGS ANY AREA UPW03/18/2011 Ablation skin tags/ shave bx x 2 REMV CATARACT EXTRACAP,INSERT LENS 12/2023 S SLING BLADDER SALPINGO-OOPHORECTOMY COMPL/PRTL UNI/BI SPX 10/25/2000 Salpingo-oophorectomy THYROIDECTOMY TOTAL/COMPLETE 07/19/2001 For Cancer THYROIDECTOMY TOTAL/COMPLETE TOTAL ABDOMINAL HYSTERECT W/WO RMVL TUBE OVARY 10/25/2000 Hysterectomy, FIDE for fibroids and abnormal menstruation Social History Tobacco Use Smoking status: Never Smokeless tobacco: Never Vaping Use Vaping Use: Never used Substance Use Topics Alcohol use: Not Currently Comment: none since ~2018 Drug use: Yes Comment: microdose THC family history includes Aneurysm in her brother, brother, and grandson; Cancer in her maternal grandfather; DEMENTIA in her father; Heart in her brother and father; Other in her mother; Stroke in her father, maternal grandmother, and paternal grandmother; Thyroid in her mother; heart valve abnormality in her brother. Review of systems as noted, reviewed, and documented on intake section. Physical Exam: 03/17/24 1301 BP: 114/61 Pulse: 62 SpO2: 98% General: no acute distress. Awake, alert. Cardiopulmonary: unlabored breathing. Appears well perfused Abdomen: non-distended, Lower Extremities: no edema, no calf tenderness. Skin: Visualized areas are warm, dry, no jaundice UE SAB EF EE WE WF Hr Coordinator R 4/5 4/5 4/5 3/5 4/5 5/5 L 4/5 4/5 4/5 3/5 4/5 4/5 LE HF KF KE PF DF R 3/5 2/5 2/5 1/5 1/5 L 3/5 2/5 2/5 1/ 1 Spasticity Right Left Shoulder 0 0 Elbow fl/ext Wrist fl/ext 1 / Finger fl/ext Hip adductors 3 3 Knee extensors 2 2 Knee flexors 3 2 Ankle plantarflexors 2 1+ Modified Christine Scale 0 - No increase in tone 1 - Slight increase in tone (catch and release at end of ROM) 1+ - Slight increase in tone, manifested by a catch, followed by minimal resistance throughout remainder (less than half of ROM) 2 - Marked increase in tone through most of the ROM, but affected part(s) easily moved 3 - Considerable increase in tone; passive movement difficult 4 - Affected part(s) rigid in flexion or extension SPASMS observed: RUE: No LUE: No RLE: Yes LLE: No During our face to face clinical encounter we discussed my concerns neurologically in terms of diagnosis, impact on health and activities of living, and addressed questions. I tried to reassure the patient and also address questions. I explained to the patient to call if any questions, to review results, and follow-up as instructed or as needed. Patient verbalizes understanding and I have addressed concerns and questions at this visit Patient has my contacts, educational material provided, and my chart sign up. After visit summary discussed. I spent a total of 20 minutes on the date of the service which included preparing to see the patient, [id number] patient care, completing clinical documentation, performing a medically appropriate examination, counseling and educating the patient/family/caregiver, ordering medications, tests, or procedures and communicating results to the patient/family/caregiver. Lia Hope APRN.[facility] Initial pre-authorization Medication Botox [id number] Dose (units every 90 days): 400 units If initial pre-authorization; list treatments failed PT/OT Baclofen Tizanidine Other: flexeril CPT Code Select CPT code that will be associated with the procedure Limbs 12601 16611 47081 23723 EMG guidance 79834 Limb(s) / area(s) injected: RUE, LUE, RLE, LLE documented in this encounter [facility] 03-14-2024 Note HNO ID: [id number] Author: NATHAN MADRIGAL PT Service: ? Author Type: Physical Therapist Type: Progress Notes Filed: 03/14/2024 16:15 Note Text: Episode Visit Count: 39 Therapist That Will Accept/Oversee The Plan Of Care: Nathan Madrigal PT, ANABELLE Start of Care Date: 10/03/23 Onset Date: 12/31/23 Plan of Care Certification Date: 02/29/24 Next Certification Due Date: 04/18/24 Patient Identified by Name and Date of : Yes REHABILITATION AND SPORTS THERAPY PHYSICAL THERAPY TREATMENT NOTE ASSESSMENT: Waldemar Hudson tolerated the session with decreased symptoms. She demonstrated decreased R knee hypertonia and improved R knee passive ROM into extension after manual stretching today. The patient will continue to benefit from ongoing skilled physical therapy to progress toward set goals. PLAN FOR NEXT VISIT: May add long sitting calf stretch with strap and resisted ankle plantarflexion next session. SUBJECTIVE: Patient notes that her R knee is hurting down towards her peterson today. She has continued difficulty sleeping at night and may initially get 2 solid hours of sleeping and then is woken up about every 45 minutes due to R knee pain and muscle spasms. Pain: Pain Pain Level: 3 Pain Location: Knee - Right Post Treatment Pain Post Treatment Pain Level: Better Post Treatment Pain Location: Knee - Right OBJECTIVE MEASURES WITH LEVEL OF FUNCTION: No objective measurements taken this date. TREATMENT: Therapeutic Exercise: 2: Seated hamstrings stretch with leg rested on stool x 5, hold 10 seconds each LE with therapist adding additional stretch into knee extension 3: Seated ankle pumps in long sitting with therapist supporting ankles x 30 each LE 5: Supine bridging 2 x 15 reps over yellow ball 7: SAQ 2 x 15 reps over yellow ball each LE with assist 8: Supine lower trunk rotation with assist with bilateral LE rested on yellow therapy ball x 15 each direction 9: Supine bilateral knee flexion rolling on large yellow theraball 2 x 15 reps 11: Seated LAQ 2 x 15 reps each LE Skilled Intervention: Skilled judgment was used in selection of appropriate interventions. Correct performance of therapeutic exercises was facilitated with tactile cuing. Manual Therapy: 1: Passive stretching to each LE for hips flexion, abduction, hip ER and IR in flexion and hamstrings stretching, knees flexion/extension and bilateral calf stretches x 15 reps each. Skilled Intervention: Manual skills to improve joint mobility, ROM, and decrease pain. Utilized anatomy knowledge of the therapist, and assessment of patient's response to intervention. Billing Therapeutic Exercise Treatment Minutes: 20 Manual TherapyTreatment Minutes: 30 Skilled Treatment Time Minutes (timed and untimed codes): 50 Total Session Time (minutes): 60 Session Start Time : 1500 Session Stop Time : 1600 Nathan Madrigal PT, MBA [facility] 03-14-2024 History of Present illness Narrative Episode Visit Count: 39 Therapist That Will Accept/Oversee The Plan Of Care: Nathan Madrigal PT, MBA Start of Care Date: 10/03/23 Onset Date: 12/31/23 Plan of Care Certification Date: 02/29/24 Next Certification Due Date: 04/18/24 Patient Identified by Name and Date of : Yes REHABILITATION AND SPORTS THERAPY PHYSICAL THERAPY TREATMENT NOTE ASSESSMENT: Waldemar Hudson tolerated the session with decreased symptoms. She demonstrated decreased R knee hypertonia and improved R knee passive ROM into extension after manual stretching today. The patient will continue to benefit from ongoing skilled physical therapy to progress toward set goals. PLAN FOR NEXT VISIT: May add long sitting calf stretch with strap and resisted ankle plantarflexion next session. SUBJECTIVE: Patient notes that her R knee is hurting down towards her peterson today. She has continued difficulty sleeping at night and may initially get 2 solid hours of sleeping and then is woken up about every 45 minutes due to R knee pain and muscle spasms. Pain: Pain Pain Level: 3 Pain Location: Knee - Right Post Treatment Pain Post Treatment Pain Level: Better Post Treatment Pain Location: Knee - Right OBJECTIVE MEASURES WITH LEVEL OF FUNCTION: No objective measurements taken this date. TREATMENT: Therapeutic Exercise: 2: Seated hamstrings stretch with leg rested on stool x 5, hold 10 seconds each LE with therapist adding additional stretch into knee extension 3: Seated ankle pumps in long sitting with therapist supporting ankles x 30 each LE 5: Supine bridging 2 x 15 reps over yellow ball 7: SAQ 2 x 15 reps over yellow ball each LE with assist 8: Supine lower trunk rotation with assist with bilateral LE rested on yellow therapy ball x 15 each direction 9: Supine bilateral knee flexion rolling on large yellow theraball 2 x 15 reps 11: Seated LAQ 2 x 15 reps each LE Skilled Intervention: Skilled judgment was used in selection of appropriate interventions. Correct performance of therapeutic exercises was facilitated with tactile cuing. Manual Therapy: 1: Passive stretching to each LE for hips flexion, abduction, hip ER and IR in flexion and hamstrings stretching, knees flexion/extension and bilateral calf stretches x 15 reps each. Skilled Intervention: Manual skills to improve joint mobility, ROM, and decrease pain. Utilized anatomy knowledge of the therapist, and assessment of patient's response to intervention. Billing Therapeutic Exercise Treatment Minutes: 20 Manual TherapyTreatment Minutes: 30 Skilled Treatment Time Minutes (timed and untimed codes): 50 Total Session Time (minutes): 60 Session Start Time : 1500 Session Stop Time : 1600 Nathan Madrigal PT, MBA documented in this encounter [facility] 03-13-2024 Note HNO ID: [id number] Author: CORI HOPE R Ac Service: ? Author Type: Diplomat of Acupuncture Type: Progress Notes Filed: 03/13/2024 15:40 Note Text: Waldemar Hudson a 68 year old female presents to the acupuncture clinic on 03/13/24 for a follow up visit. Patient identity confirmed by name and : Yes This is the 16 visit for the patient this year It has been 1.3 week(s) since the last acupuncture treatment. Last treatment date: 03/04/2024 Initial Acupuncture treatment date: 11/12/2023 Chief Complaint: Primary lateral sclerosis, right lateral knee pain, muscle spasticity SUBJECTIVE Unfortunately, her right knee pain and muscle spasticity has not been improved over the past week. Patient is currently on the course of antibiotics. Her speech has been more comprehensible. Her left ankle became swollen as well over the past week. Patient's Lyme Disease specialist will direct patient to courses of antibiotics for 2 months. Postponed corticosteroidal injection. 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 Patient might need to hold off on scheduled knee injection as she has bacterial infection. * Past history of thyroid cancer We discussed trying Cryptolepsis as a natural herbal antibiotic approach to fight against Lyme. I provided patient with the product information. Hold off on taking Alfredo Gaytan until she finished baclofen. Cryptolepsis has been ordered. Patient noted her right knee pain was much improved for a few days following the previous acupuncture. Patient has been battling MS since 2012. Patient has history of Lyme disease, mold exposure and thyroid cancer. Thyroidism Trialed PT, dry needling, chiropractic, massage. PAIN ASSESSMENT: Currently experiencing pain Pain level (0 no pain at all to 10 being the worst): 4 OBJECTIVE: Physical Exam: Tenderness: knees and feet Pain with palpation: na ROM: limited ROM Orthopedic Tests: na Tightness: knees Divina/Trigger points: na Visual Inspection Discoloration: na Edema: no Gait/Ambulation: normal Ovalle: good Qi/Patient vitality: normal Alert Well-Groomed Normal Imaging reports Images on file See EPIC Images have been reviewed no TCM Tongue: NA TCM Pulse: thin and weak ASSESSMENT Patient presents with signs and symptoms consistent with the diagnosis. Patient would benefit from acupuncture therapy to address listed deficiencies and return to PLOF. Pt was educated on symptoms, prognosis, plan of care and activity modifications. Pt verbalized understanding and agreed to begin care. TCM Pattern: PLS due to Qi and blood deficiency. TCM Treatment Principle: Calm Ovalle. Promote smooth flow of Qi and blood. Open channel. Reduce pain. PLAN OF CARE Counseled patient on risks of acupuncture treatment including pain, infection, bleeding, and no relief of pain. The patient was positioned comfortably. There was no evidence of infection at the site of needle insertions. Acupuncture Treatment: Treatment/Needle Set 1, Supine: Points: Yin Gaytan, motor line 2 points bilaterally on the scalp, ear ovalle men, LI4, SI3, SP9, ST36, R: 3 points on the lateral knee 15 minutes face to face with patient for set 1 Treatment/Needle Set 2, Supine: Points: R: GB34, GB37, Xi Dinh, GB34, B: GB41, ST41, SP6, KD3 10 minutes face to face with patient for set 2 Calcium were retained for 30 minutes # of needles inserted: 31 # of needles withdrawn: 31 Adjunct techniques used: TDP Infrared Heat Lamp- Applied to Rt. Hip and right knee Patient tolerated the procedure well. UNIVERSAL PROTOCOL / SAFETY CHECKLIST Procedure to be Performed: Acupuncture Sign In: A Moment of CARE was completed. Personnel directly involved with the procedure wore the appropriate PPE (Personal Protective Equipment). Patient/Surrogate Stated/Verified: PATIENT VERIFIED(optional for EMERGENT procedures): Patient name, Date of , Relevant allergies, and The intended procedure Time Out Communication: Intended patient and procedure match the source documents. Consent documented and matches the intended procedure. Sign Out: SIGN OUT (optional for EMERGENT procedures): All instruments, equipment, possible retained foreign bodies accounted for. Trenton Hanson Provider Name: Trenton Hanson 25 Total minutes face to face time spent with patient Acupuncture and [place] herbal therapy are not a substitute for conventional medical diagnosis and treatment. Patient agrees that either: 1. A diagnostic exam has been performed by a physician or chiropractor within the last six months regarding the condition for which they are seeking acupuncture treatment. or 2. If no diagnostic exam by a physician or chiropractor has been done within the last six months regarding the condition for which patient is seeking treatment, the Processing Analyst, per [place] Law, recommends that this diagnostic exam (more content not included)... [facility] 03-13-2024 History of Present illness Narrative Waldemar Hudson a 68 year old female presents to the acupuncture clinic on 03/13/24 for a follow up visit. Patient identity confirmed by name and : Yes This is the 16 visit for the patient this year It has been 1.3 week(s) since the last acupuncture treatment. Last treatment date: 03/04/2024 Initial Acupuncture treatment date: 11/12/2023 Chief Complaint: Primary lateral sclerosis, right lateral knee pain, muscle spasticity SUBJECTIVE Unfortunately, her right knee pain and muscle spasticity has not been improved over the past week. Patient is currently on the course of antibiotics. Her speech has been more comprehensible. Her left ankle became swollen as well over the past week. Patient's Lyme Disease specialist will direct patient to courses of antibiotics for 2 months. Postponed corticosteroidal injection. 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 Patient might need to hold off on scheduled knee injection as she has bacterial infection. * Past history of thyroid cancer We discussed trying Cryptolepsis as a natural herbal antibiotic approach to fight against Lyme. I provided patient with the product information. Hold off on taking Alfredo Gaytan until she finished baclofen. Cryptolepsis has been ordered. Patient noted her right knee pain was much improved for a few days following the previous acupuncture. Patient has been battling MS since 2012. Patient has history of Lyme disease, mold exposure and thyroid cancer. Thyroidism Trialed PT, dry needling, chiropractic, massage. PAIN ASSESSMENT: Currently experiencing pain Pain level (0 no pain at all to 10 being the worst): 4 OBJECTIVE: Physical Exam: Tenderness: knees and feet Pain with palpation: na ROM: limited ROM Orthopedic Tests: na Tightness: knees Divina/Trigger points: na Visual Inspection Discoloration: na Edema: no Gait/Ambulation: normal Ovalle: good Qi/Patient vitality: normal Alert Well-Groomed Normal Imaging reports Images on file See EPIC Images have been reviewed no TCM Tongue: NA TCM Pulse: thin and weak ASSESSMENT Patient presents with signs and symptoms consistent with the diagnosis. Patient would benefit from acupuncture therapy to address listed deficiencies and return to PLOF. Pt was educated on symptoms, prognosis, plan of care and activity modifications. Pt verbalized understanding and agreed to begin care. TCM Pattern: PLS due to Qi and blood deficiency. TCM Treatment Principle: Calm Ovalle. Promote smooth flow of Qi and blood. Open channel. Reduce pain. PLAN OF CARE Counseled patient on risks of acupuncture treatment including pain, infection, bleeding, and no relief of pain. The patient was positioned comfortably. There was no evidence of infection at the site of needle insertions. Acupuncture Treatment: Treatment/Needle Set 1, Supine: Points: Yin Gaytan, motor line 2 points bilaterally on the scalp, ear ovalle men, LI4, SI3, SP9, ST36, R: 3 points on the lateral knee 15 minutes face to face with patient for set 1 Treatment/Needle Set 2, Supine: Points: R: GB34, GB37, Xi Dinh, GB34, B: GB41, ST41, SP6, KD3 10 minutes face to face with patient for set 2 Calcium were retained for 30 minutes # of needles inserted: 31 # of needles withdrawn: 31 Adjunct techniques used: TDP Infrared Heat Lamp- Applied to Rt. Hip and right knee Patient tolerated the procedure well. UNIVERSAL PROTOCOL / SAFETY CHECKLIST Procedure to be Performed: Acupuncture Sign In: A Moment of CARE was completed. Personnel directly involved with the procedure wore the appropriate PPE (Personal Protective Equipment). Patient/Surrogate Stated/Verified: PATIENT VERIFIED(optional for EMERGENT procedures): Patient name, Date of , Relevant allergies, and The intended procedure Time Out Communication: Intended patient and procedure match the source documents. Consent documented and matches the intended procedure. Sign Out: SIGN OUT (optional for EMERGENT procedures): All instruments, equipment, possible retained foreign bodies accounted for. Trenton Hanson Provider Name: Trenton Hanson 25 Total minutes face to face time spent with patient Acupuncture and [place] herbal therapy are not a substitute for conventional medical diagnosis and treatment. Patient agrees that either: 1. A diagnostic exam has been performed by a physician or chiropractor within the last six months regarding the condition for which they are seeking acupuncture treatment. or 2. If no diagnostic exam by a physician or chiropractor has been done within the last six months regarding the condition for which patient is seeking treatment, the Processing Analyst, per [place] Law, recommends that this diagnostic exam be performed. documented in this encounter [facility] 03-11-2024 Note HNO ID: [id number] Author: NATHAN MADRIGAL PT Service: ? Author Type: Physical Therapist Type: Progress Notes Filed: 03/11/2024 16:52 Note Text: Episode Visit Count: 38 Therapist That Will Accept/Oversee The Plan Of Care: Nathan Madrigal PT, ANABELLE Start of Care Date: 10/03/23 Onset Date: 12/31/23 Plan of Care Certification Date: 02/29/24 Next Certification Due Date: 04/18/24 Patient Identified by Name and Date of : Yes REHABILITATION AND SPORTS THERAPY PHYSICAL THERAPY TREATMENT NOTE ASSESSMENT: Waldemar Hudson tolerated the session with expected muscle soreness and had 3 occasions of R LE going into spasms with passive R LE stretching. She demonstrated good tolerance to added long sitting hamstrings stretch and long sitting ankle pumps to encourage more knee extension stretching today. The patient will continue to benefit from ongoing skilled physical therapy to progress toward set goals. PLAN FOR NEXT VISIT: Continue to progress additional hamstrings and calf stretches. SUBJECTIVE: Patient will have her power wheelchair delivered next Sunday from [employer]. Pain: Pain Pain Level: 3 Pain Location: Knee - Right Post Treatment Pain Post Treatment Pain Level: Better Post Treatment Pain Location: Knee - Right OBJECTIVE MEASURES WITH LEVEL OF FUNCTION: No objective measurements taken this date. TREATMENT: Therapeutic Exercise: 1: Seated forward stretch over yellow theraball with bilateral UE's and ball on therapist's lap in front of patient x 15 reps forward and then 10 reps each in scaption for stretching 2: Seated hamstrings stretch with leg rested on stool x 5, hold 10 seconds each LE with therapist adding additional stretch into knee extension 3: Seated ankle pumps in long sitting with therapist supporting ankles x 30 each LE 7: SAQ 2 x 15 reps over yellow ball each LE with assist 8: Supine lower trunk rotation with assist with bilateral LE rested on yellow therapy ball x 15 each direction 9: Supine bilateral knee flexion rolling on large yellow theraball 3 x 10 reps 11: Seated LAQ 1 x 15 reps each LE Skilled Intervention: Skilled judgment was used in selection of appropriate interventions. Manual Therapy: 1: Passive stretching to each LE for hips flexion, abduction, hip ER and IR in flexion and hamstrings stretching, knees flexion/extension and bilateral calf stretches x 15 reps each. Skilled Intervention: Manual skills to improve joint mobility, ROM, and decrease pain. Utilized anatomy knowledge of the therapist, and assessment of patient's response to intervention. Billing Therapeutic Exercise Treatment Minutes: 20 Manual TherapyTreatment Minutes: 30 Skilled Treatment Time Minutes (timed and untimed codes): 50 Total Session Time (minutes): 54 Session Start Time : 1411 Session Stop Time : 1505 Nathan Madrigal PT, MBA [facility] 03-11-2024 History of Present illness Narrative Episode Visit Count: 38 Therapist That Will Accept/Oversee The Plan Of Care: Nathan Madrigal PT, MBA Start of Care Date: 10/03/23 Onset Date: 12/31/23 Plan of Care Certification Date: 02/29/24 Next Certification Due Date: 04/18/24 Patient Identified by Name and Date of : Yes REHABILITATION AND SPORTS THERAPY PHYSICAL THERAPY TREATMENT NOTE ASSESSMENT: Waldemar Hudson tolerated the session with expected muscle soreness and had 3 occasions of R LE going into spasms with passive R LE stretching. She demonstrated good tolerance to added long sitting hamstrings stretch and long sitting ankle pumps to encourage more knee extension stretching today. The patient will continue to benefit from ongoing skilled physical therapy to progress toward set goals. PLAN FOR NEXT VISIT: Continue to progress additional hamstrings and calf stretches. SUBJECTIVE: Patient will have her power wheelchair delivered next Sunday from [employer]. Pain: Pain Pain Level: 3 Pain Location: Knee - Right Post Treatment Pain Post Treatment Pain Level: Better Post Treatment Pain Location: Knee - Right OBJECTIVE MEASURES WITH LEVEL OF FUNCTION: No objective measurements taken this date. TREATMENT: Therapeutic Exercise: 1: Seated forward stretch over yellow theraball with bilateral UE's and ball on therapist's lap in front of patient x 15 reps forward and then 10 reps each in scaption for stretching 2: Seated hamstrings stretch with leg rested on stool x 5, hold 10 seconds each LE with therapist adding additional stretch into knee extension 3: Seated ankle pumps in long sitting with therapist supporting ankles x 30 each LE 7: SAQ 2 x 15 reps over yellow ball each LE with assist 8: Supine lower trunk rotation with assist with bilateral LE rested on yellow therapy ball x 15 each direction 9: Supine bilateral knee flexion rolling on large yellow theraball 3 x 10 reps 11: Seated LAQ 1 x 15 reps each LE Skilled Intervention: Skilled judgment was used in selection of appropriate interventions. Manual Therapy: 1: Passive stretching to each LE for hips flexion, abduction, hip ER and IR in flexion and hamstrings stretching, knees flexion/extension and bilateral calf stretches x 15 reps each. Skilled Intervention: Manual skills to improve joint mobility, ROM, and decrease pain. Utilized anatomy knowledge of the therapist, and assessment of patient's response to intervention. Billing Therapeutic Exercise Treatment Minutes: 20 Manual TherapyTreatment Minutes: 30 Skilled Treatment Time Minutes (timed and untimed codes): 50 Total Session Time (minutes): 54 Session Start Time : 1411 Session Stop Time : 1505 Nathan Madrigal PT, MBA documented in this encounter [facility] 03-07-2024 Note HNO ID: [id number] Author: NATHAN MADRIGAL PT Service: ? Author Type: Physical Therapist Type: Progress Notes Filed: 03/07/2024 17:05 Note Text: Episode Visit Count: 37 Therapist That Will Accept/Oversee The Plan Of Care: Nathan Madrigal PT, MBA Start of Care Date: 10/03/23 Onset Date: 12/31/23 Plan of Care Certification Date: 02/29/24 Next Certification Due Date: 04/18/24 Patient Identified by Name and Date of : Yes REHABILITATION AND SPORTS THERAPY PHYSICAL THERAPY TREATMENT NOTE ASSESSMENT: Waldemar Hudson tolerated the session with no occurrences of R LE spasms during passive stretching and ROM today. She demonstrated good control with bilateral LE knee flexion on yellow therapy ball today and showed good upright seated posture for resisted rows and bilateral shoulder extension. The patient will continue to benefit from ongoing skilled physical therapy to progress toward set goals. PLAN FOR NEXT VISIT: May consider working on sit to stand and standing exercise as able. SUBJECTIVE: Patient rates her R knee pain at 3 out of 10 today. She noted no other change in reports today. Pain: Pain Pain Level: 3 Pain Location: Knee - Right Post Treatment Pain Post Treatment Pain Level: Better OBJECTIVE MEASURES WITH LEVEL OF FUNCTION: No objective measurements taken this date. TREATMENT: Therapeutic Exercise: 5: Supine bridging 2 x 15 reps over yellow ball 6: Supine bent leg marching 2 x 15 reps alternating with LE rested on yellow ball (Did not complete today) 7: SAQ 2 x 15 reps over yellow ball each LE with assist 8: Supine lower trunk rotation with assist with bilateral LE rested on yellow therapy ball x 15 each direction 9: Supine bilateral knee flexion rolling on large yellow theraball 3 x 10 reps 10: Supine LAQ 2 x 15 reps with LE rested over yellow ball (Did not complete today) 11: Seated LAQ 2 x 15 reps each LE 12: Seated resisted knee flexion 2 x 15 reps each LE 13: Seated resisted rowing 2 x 15 reps w/ pink band 14: Seated resisted bilateral extension 2 x 15 reps w/ pink band 15: Seated resisted bilateral ER 2 x 10 reps w/ pink band (Did not complete today) Skilled Intervention: Skilled judgment was used in selection of appropriate interventions. Manual Therapy: 1: Passive stretching to each LE for hips flexion, abduction, hip ER and IR in flexion and hamstrings stretching, knees flexion/extension and bilateral calf stretches x 15 reps each. Skilled Intervention: Manual skills to improve joint mobility, ROM, and decrease pain. Utilized anatomy knowledge of the therapist, and assessment of patient's response to intervention. Billing Therapeutic Exercise Treatment Minutes: 25 Manual TherapyTreatment Minutes: 30 Skilled Treatment Time Minutes (timed and untimed codes): 55 Total Session Time (minutes): 56 Session Start Time : 1546 Session Stop Time : 164 Nathan Madrigal PT, MBA [facility] 03-07-2024 History of Present illness Narrative Episode Visit Count: 37 Therapist That Will Accept/Oversee The Plan Of Care: Nathan Madrigal PT, MBA Start of Care Date: 10/03/23 Onset Date: 12/31/23 Plan of Care Certification Date: 02/29/24 Next Certification Due Date: 04/18/24 Patient Identified by Name and Date of : Yes REHABILITATION AND SPORTS THERAPY PHYSICAL THERAPY TREATMENT NOTE ASSESSMENT: Waldemar Hudson tolerated the session with no occurrences of R LE spasms during passive stretching and ROM today. She demonstrated good control with bilateral LE knee flexion on yellow therapy ball today and showed good upright seated posture for resisted rows and bilateral shoulder extension. The patient will continue to benefit from ongoing skilled physical therapy to progress toward set goals. PLAN FOR NEXT VISIT: May consider working on sit to stand and standing exercise as able. SUBJECTIVE: Patient rates her R knee pain at 3 out of 10 today. She noted no other change in reports today. Pain: Pain Pain Level: 3 Pain Location: Knee - Right Post Treatment Pain Post Treatment Pain Level: Better OBJECTIVE MEASURES WITH LEVEL OF FUNCTION: No objective measurements taken this date. TREATMENT: Therapeutic Exercise: 5: Supine bridging 2 x 15 reps over yellow ball 6: Supine bent leg marching 2 x 15 reps alternating with LE rested on yellow ball (Did not complete today) 7: SAQ 2 x 15 reps over yellow ball each LE with assist 8: Supine lower trunk rotation with assist with bilateral LE rested on yellow therapy ball x 15 each direction 9: Supine bilateral knee flexion rolling on large yellow theraball 3 x 10 reps 10: Supine LAQ 2 x 15 reps with LE rested over yellow ball (Did not complete today) 11: Seated LAQ 2 x 15 reps each LE 12: Seated resisted knee flexion 2 x 15 reps each LE 13: Seated resisted rowing 2 x 15 reps w/ pink band 14: Seated resisted bilateral extension 2 x 15 reps w/ pink band 15: Seated resisted bilateral ER 2 x 10 reps w/ pink band (Did not complete today) Skilled Intervention: Skilled judgment was used in selection of appropriate interventions. Manual Therapy: 1: Passive stretching to each LE for hips flexion, abduction, hip ER and IR in flexion and hamstrings stretching, knees flexion/extension and bilateral calf stretches x 15 reps each. Skilled Intervention: Manual skills to improve joint mobility, ROM, and decrease pain. Utilized anatomy knowledge of the therapist, and assessment of patient's response to intervention. Billing Therapeutic Exercise Treatment Minutes: 25 Manual TherapyTreatment Minutes: 30 Skilled Treatment Time Minutes (timed and untimed codes): 55 Total Session Time (minutes): 56 Session Start Time : 1546 Session Stop Time : 1642 Nathan Madrigal PT, ANABELLE documented in this encounter [facility] 03-04-2024 Note HNO ID: [id number] Author: CORI HOPE R Ac Service: ? Author Type: Diplomat of Acupuncture Type: Progress Notes Filed: 03/04/2024 16:20 Note Text: Waldemar Hudson a 68 year old female presents to the acupuncture clinic on 03/04/24 for a follow up visit. Patient identity confirmed by name and : Yes This is the 15 visit for the patient this year It has been 1 week(s) since the last acupuncture treatment. Last treatment date: 02/28/2024 Initial Acupuncture treatment date: 11/12/2023 Chief Complaint: Primary lateral sclerosis, right lateral knee pain, muscle spasticity SUBJECTIVE Patient's Lyme Disease specialist will direct patient to courses of antibiotics for 2 months. Postponed corticosteroidal injection. Swelling in right ankle seems slightly decreased over the past week. Spasticity has been improved, not experiencing it as severe as before. 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 Patient might need to hold off on scheduled knee injection as she has bacterial infection. * Past history of thyroid cancer We discussed trying Cryptolepsis as a natural herbal antibiotic approach to fight against Lyme. I provided patient with the product information. Hold off on taking Alfredo Gaytan until she finished baclofen. Cryptolepsis has been ordered. Patient noted her right knee pain was much improved for a few days following the previous acupuncture. Patient has been battling MS since 2012. Patient has history of Lyme disease, mold exposure and thyroid cancer. Thyroidism Trialed PT, dry needling, chiropractic, massage. PAIN ASSESSMENT: Currently experiencing pain Pain level (0 no pain at all to 10 being the worst): 4 OBJECTIVE: Physical Exam: Tenderness: knees and feet Pain with palpation: na ROM: limited ROM Orthopedic Tests: na Tightness: knees Divina/Trigger points: na Visual Inspection Discoloration: na Edema: no Gait/Ambulation: normal Ovalle: good Qi/Patient vitality: normal Alert Well-Groomed Normal Imaging reports Images on file See EPIC Images have been reviewed no TCM Tongue: NA TCM Pulse: thin and weak ASSESSMENT Patient presents with signs and symptoms consistent with the diagnosis. Patient would benefit from acupuncture therapy to address listed deficiencies and return to PLOF. Pt was educated on symptoms, prognosis, plan of care and activity modifications. Pt verbalized understanding and agreed to begin care. TCM Pattern: PLS due to Qi and blood deficiency. TCM Treatment Principle: Calm Ovalle. Promote smooth flow of Qi and blood. Open channel. Reduce pain. PLAN OF CARE Counseled patient on risks of acupuncture treatment including pain, infection, bleeding, and no relief of pain. The patient was positioned comfortably. There was no evidence of infection at the site of needle insertions. Acupuncture Treatment: Treatment/Needle Set 1, Supine: Points: Yin Gaytan, motor line 2 points bilaterally on the scalp, ear ovalle men, LI4, SP9, R: 3 points on the lateral knee 15 minutes face to face with patient for set 1 Treatment/Needle Set 2, Supine: Points: R: GB34, ST36, ST34, Esquivel Chi, Xi Dinh, SP10, He ding, B: GB41, SP6, KD3 10 minutes face to face with patient for set 2 Calcium were retained for 30 minutes # of needles inserted: 30 # of needles withdrawn: 30 Adjunct techniques used: TDP Infrared Heat Lamp- Applied to Rt. Hip and right knee Patient tolerated the procedure well. UNIVERSAL PROTOCOL / SAFETY CHECKLIST Procedure to be Performed: Acupuncture Sign In: A Moment of CARE was completed. Personnel directly involved with the procedure wore the appropriate PPE (Personal Protective Equipment). Patient/Surrogate Stated/Verified: PATIENT VERIFIED(optional for EMERGENT procedures): Patient name, Date of , Relevant allergies, and The intended procedure Time Out Communication: Intended patient and procedure match the source documents. Consent documented and matches the intended procedure. Sign Out: SIGN OUT (optional for EMERGENT procedures): All instruments, equipment, possible retained foreign bodies accounted for. Trenton Hanson Provider Name: Trenton Hanson 25 Total minutes face to face time spent with patient Acupuncture and [place] herbal therapy are not a substitute for conventional medical diagnosis and treatment. Patient agrees that either: 1. A diagnostic exam has been performed by a physician or chiropractor within the last six months regarding the condition for which they are seeking acupuncture treatment. or 2. If no diagnostic exam by a physician or chiropractor has been done within the last six months regarding the condition for which patient is seeking treatment, the Processing Analyst, per [place] Law, recommends that this diagnostic exam be performed. [facility] 03-04-2024 History of Present illness Narrative Waldemar Hudson a 68 year old female presents to the acupuncture clinic on 03/04/24 for a follow up visit. Patient identity confirmed by name and : Yes This is the 15 visit for the patient this year It has been 1 week(s) since the last acupuncture treatment. Last treatment date: 02/28/2024 Initial Acupuncture treatment date: 11/12/2023 Chief Complaint: Primary lateral sclerosis, right lateral knee pain, muscle spasticity SUBJECTIVE Patient's Lyme Disease specialist will direct patient to courses of antibiotics for 2 months. Postponed corticosteroidal injection. Swelling in right ankle seems slightly decreased over the past week. Spasticity has been improved, not experiencing it as severe as before. 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 Patient might need to hold off on scheduled knee injection as she has bacterial infection. * Past history of thyroid cancer We discussed trying Cryptolepsis as a natural herbal antibiotic approach to fight against Lyme. I provided patient with the product information. Hold off on taking Alfredo Gaytan until she finished baclofen. Cryptolepsis has been ordered. Patient noted her right knee pain was much improved for a few days following the previous acupuncture. Patient has been battling MS since 2012. Patient has history of Lyme disease, mold exposure and thyroid cancer. Thyroidism Trialed PT, dry needling, chiropractic, massage. PAIN ASSESSMENT: Currently experiencing pain Pain level (0 no pain at all to 10 being the worst): 4 OBJECTIVE: Physical Exam: Tenderness: knees and feet Pain with palpation: na ROM: limited ROM Orthopedic Tests: na Tightness: knees Divina/Trigger points: na Visual Inspection Discoloration: na Edema: no Gait/Ambulation: normal Ovalle: good Qi/Patient vitality: normal Alert Well-Groomed Normal Imaging reports Images on file See EPIC Images have been reviewed no TCM Tongue: NA TCM Pulse: thin and weak ASSESSMENT Patient presents with signs and symptoms consistent with the diagnosis. Patient would benefit from acupuncture therapy to address listed deficiencies and return to PLOF. Pt was educated on symptoms, prognosis, plan of care and activity modifications. Pt verbalized understanding and agreed to begin care. TCM Pattern: PLS due to Qi and blood deficiency. TCM Treatment Principle: Calm Ovalle. Promote smooth flow of Qi and blood. Open channel. Reduce pain. PLAN OF CARE Counseled patient on risks of acupuncture treatment including pain, infection, bleeding, and no relief of pain. The patient was positioned comfortably. There was no evidence of infection at the site of needle insertions. Acupuncture Treatment: Treatment/Needle Set 1, Supine: Points: Yin Gaytan, motor line 2 points bilaterally on the scalp, ear ovalle men, LI4, SP9, R: 3 points on the lateral knee 15 minutes face to face with patient for set 1 Treatment/Needle Set 2, Supine: Points: R: GB34, ST36, ST34, Esquivel Chi, Xi Dinh, SP10, He ding, B: GB41, SP6, KD3 10 minutes face to face with patient for set 2 Calcium were retained for 30 minutes # of needles inserted: 30 # of needles withdrawn: 30 Adjunct techniques used: TDP Infrared Heat Lamp- Applied to Rt. Hip and right knee Patient tolerated the procedure well. UNIVERSAL PROTOCOL / SAFETY CHECKLIST Procedure to be Performed: Acupuncture Sign In: A Moment of CARE was completed. Personnel directly involved with the procedure wore the appropriate PPE (Personal Protective Equipment). Patient/Surrogate Stated/Verified: PATIENT VERIFIED(optional for EMERGENT procedures): Patient name, Date of , Relevant allergies, and The intended procedure Time Out Communication: Intended patient and procedure match the source documents. Consent documented and matches the intended procedure. Sign Out: SIGN OUT (optional for EMERGENT procedures): All instruments, equipment, possible retained foreign bodies accounted for. Trenton Hanson Provider Name: Trenton Hanson 25 Total minutes face to face time spent with patient Acupuncture and [place] herbal therapy are not a substitute for conventional medical diagnosis and treatment. Patient agrees that either: 1. A diagnostic exam has been performed by a physician or chiropractor within the last six months regarding the condition for which they are seeking acupuncture treatment. or 2. If no diagnostic exam by a physician or chiropractor has been done within the last six months regarding the condition for which patient is seeking treatment, the Processing Analyst, per [place] Law, recommends that this diagnostic exam be performed. documented in this encounter [facility] 03-04-2024 Telephone encounter Note Duplicate Encounter. Patient's request previously completed. Closing encounter. [facility] 03-04-2024 Miscellaneous Notes Duplicate Encounter. Patient's request previously completed. Closing encounter. documented in this encounter [facility] 03-04-2024 Telephone encounter Note Injection procedure cancelled. Case message sent. [facility] 03-04-2024 Miscellaneous Notes Injection procedure cancelled. Case message sent. documented in this encounter [facility] 03-03-2024 Note HNO ID: [id number] Author: DAJA GOMEZ PTA Service: ? Author Type: Clarity Specialists Type: Progress Notes Filed: 03/03/2024 16:02 Note Text: Episode Visit Count: 36 Therapist That Will Accept/Oversee The Plan Of Care: Nathan Madrigal PT, ANABELLE Start of Care Date: 10/03/23 Onset Date: 12/31/23 Plan of Care Certification Date: 02/29/24 Next Certification Due Date: 04/18/24 Patient Identified by Name and Date of : Yes REHABILITATION AND SPORTS THERAPY PHYSICAL THERAPY TREATMENT NOTE ASSESSMENT: Waldemar Hudson tolerated the session with decreased symptoms. She demonstrated difficulty with passive stretching tolerance as her right LE would spasm and draw up causing increased pain at times. Patient reports that the trunk and forward flexion stretching in sitting feels good. The patient will continue to benefit from ongoing skilled physical therapy to progress toward set goals. PLAN FOR NEXT VISIT: Continue ROM and stretngthening exercises SUBJECTIVE: Patient reported that she continues to get up in the middle of the night due to right LE spasms and knee pain. She also reported that she is reconsidering the cortisone injection as her Lyme dr got results back from her bloodwork and she still has active Lyme and bacteria in her blood. Pain: Pain Pain Level: 4 Pain Location: Knee - Right Post Treatment Pain Post Treatment Pain Level: Better OBJECTIVE MEASURES WITH LEVEL OF FUNCTION: No objective measures taken this date. TREATMENT: Therapeutic Exercise: 1: Seated forward stretch over yellow theraball with bilateral UE's and ball on therapist's lap in front of patient x 10 reps forward and then 10 reps each in scaption for stretching 2: Seated marching with band 2 x 15 reps w/ pink band 3: Seated resisted adduction x 30 reps 4: Seated resisted abduction x 30 reps w/ pink 5: Supine bridging 2 x 15 reps over yellow ball 6: Supine bent leg marching 2 x 15 reps alternating with LE rested on yellow ball 7: SAQ 2 x 15 reps over yellow ball each LE with assist 8: Supine lower trunk rotation with assist with bilateral LE rested on yellow therapy ball x 15 each direction 9: Supine bilateral knee flexion rolling on large yellow theraball 3 x 10 reps 10: Supine LAQ 2 x 15 reps with LE rested over yellow ball 11: Seated LAQ 2 x 15 reps each LE 12: Seated resisted knee flexion 2 x 15 reps each LE 13: Seated resisted rowing 2 x 15 reps w/ pink band 14: Seated resisted bilateral extension 2 x 15 reps w/ pink band 15: Seated resisted bilateral ER 2 x 10 reps w/ pink band Skilled Intervention: Patient was educated in proper exercise technique and purpose for exercises. Skilled judgment was used in selection of appropriate interventions. Manual Therapy: 1: Passive stretching to each LE for hips flexion, abduction, hip ER and IR in flexion and hamstrings stretching, knees flexion/extension and bilateral calf stretches x 15 reps each. Skilled Intervention: Manual skills to improve joint mobility, ROM, and decrease pain. Utilized anatomy knowledge of the therapist, and assessment of patient's response to intervention. Billing Therapeutic Exercise Treatment Minutes: 30 Manual TherapyTreatment Minutes: 25 Skilled Treatment Time Minutes (timed and untimed codes): 55 Total Session Time (minutes): 62 Session Start Time : 1443 Session Stop Time : 1545 Daja Gomez PTA [facility] 03-03-2024 History of Present illness Narrative Episode Visit Count: 36 Therapist That Will Accept/Oversee The Plan Of Care: Nathan Madrigal PT, ANABELLE Start of Care Date: 10/03/23 Onset Date: 12/31/23 Plan of Care Certification Date: 02/29/24 Next Certification Due Date: 04/18/24 Patient Identified by Name and Date of : Yes REHABILITATION AND SPORTS THERAPY PHYSICAL THERAPY TREATMENT NOTE ASSESSMENT: Waldemar Hudson tolerated the session with decreased symptoms. She demonstrated difficulty with passive stretching tolerance as her right LE would spasm and draw up causing increased pain at times. Patient reports that the trunk and forward flexion stretching in sitting feels good. The patient will continue to benefit from ongoing skilled physical therapy to progress toward set goals. PLAN FOR NEXT VISIT: Continue ROM and stretngthening exercises SUBJECTIVE: Patient reported that she continues to get up in the middle of the night due to right LE spasms and knee pain. She also reported that she is reconsidering the cortisone injection as her Lyme dr got results back from her bloodwork and she still has active Lyme and bacteria in her blood. Pain: Pain Pain Level: 4 Pain Location: Knee - Right Post Treatment Pain Post Treatment Pain Level: Better OBJECTIVE MEASURES WITH LEVEL OF FUNCTION: No objective measures taken this date. TREATMENT: Therapeutic Exercise: 1: Seated forward stretch over yellow theraball with bilateral UE's and ball on therapist's lap in front of patient x 10 reps forward and then 10 reps each in scaption for stretching 2: Seated marching with band 2 x 15 reps w/ pink band 3: Seated resisted adduction x 30 reps 4: Seated resisted abduction x 30 reps w/ pink 5: Supine bridging 2 x 15 reps over yellow ball 6: Supine bent leg marching 2 x 15 reps alternating with LE rested on yellow ball 7: SAQ 2 x 15 reps over yellow ball each LE with assist 8: Supine lower trunk rotation with assist with bilateral LE rested on yellow therapy ball x 15 each direction 9: Supine bilateral knee flexion rolling on large yellow theraball 3 x 10 reps 10: Supine LAQ 2 x 15 reps with LE rested over yellow ball 11: Seated LAQ 2 x 15 reps each LE 12: Seated resisted knee flexion 2 x 15 reps each LE 13: Seated resisted rowing 2 x 15 reps w/ pink band 14: Seated resisted bilateral extension 2 x 15 reps w/ pink band 15: Seated resisted bilateral ER 2 x 10 reps w/ pink band Skilled Intervention: Patient was educated in proper exercise technique and purpose for exercises. Skilled judgment was used in selection of appropriate interventions. Manual Therapy: 1: Passive stretching to each LE for hips flexion, abduction, hip ER and IR in flexion and hamstrings stretching, knees flexion/extension and bilateral calf stretches x 15 reps each. Skilled Intervention: Manual skills to improve joint mobility, ROM, and decrease pain. Utilized anatomy knowledge of the therapist, and assessment of patient's response to intervention. Billing Therapeutic Exercise Treatment Minutes: 30 Manual TherapyTreatment Minutes: 25 Skilled Treatment Time Minutes (timed and untimed codes): 55 Total Session Time (minutes): 62 Session Start Time : 1443 Session Stop Time : 1545 Daja Gomez PTA documented in this encounter [facility] 02-29-2024 Note HNO ID: [id number] Author: NATHAN MADRIGAL PT Service: ? Author Type: Physical Therapist Type: Progress Notes Filed: 02/29/2024 17:11 Note Text: Episode Visit Count: 35 Therapist That Will Accept/Oversee The Plan Of Care: Nathan Madrigal PT, ANABELLE Start of Care Date: 10/03/23 Onset Date: 12/31/23 Plan of Care Certification Date: 02/29/24 Next Certification Due Date: 04/18/24 Patient Identified by Name and Date of : Yes REHABILITATION AND SPORTS THERAPY PHYSICAL THERAPY PROGRESS REPORT PLAN OF CARE UPDATE: Assessment: Waldemar Hudson demonstrates ongoing complaint of R knee pain and bilateral LE hypertonia and she has responded well to manual passive bilateral LE and trunk ROM and stretching as well as bilateral LE strengthening exercises. She has progressed toward goals. Patient continues to present with impairments in ADL's, gait, independence in exercise, overall function, posture, range of motion, strength, and symptom management that interfere with rising from a chair, standing, walking, stair negotiation Patient now has a power wheelchair and a pivot disc to use with stand pivot transfers. She has difficulty with walking with her WW for short distances due to the R knee pain.. Current prognosis is Fair due to: clinical presentation, chronic nature of impairments, limited tolerance to activity, Prognosis may be improved by good support system/ [place], positive past response to therapy. She will benefit from continued skilled therapy services to meet the updated goals for this plan of care as noted below. Goals for Episode of Care: created on 02/29/2024 through 04/18/2024 Patient will increase active ROM of bilateral knees to no greater than 10-15 degrees from achieving full knee extension to allow patient to improve postural alignment, to improve body/postural mechanics for transfers / gait pattern , and to decrease falls risks. (Ongoing) Patient will be able to correct postural deviations with minimal assist verbal cues in order to improve postural alignment of trunk during transfers, ambulation, and standing and to decrease current R LE pain. (Ongoing) Decrease R hip/R knee pain to 1-4/10 at rest and with functional activities to allow patient to improve ambulation, transfers, and standing tolerance for ADLs. (Ongoing. Patient rates her R knee pain at 3 out of 10 today and struggles with nighttime pain that keeps her up at night) Patient to be able to non-reciprocally negotiate stairs at home with bilateral rail use with assist of for safety as needed and be able to complete this task in 5 minutes as she did previously. (No changes per patient and her and they are looking into installing an elevator) Patient Goals: To reduce my right knee pain New goals added for [facility] Clinic updated 01/09/2024 - Patient education regarding pathophysiology and relationship to deficits presented this date, including exercise recommendations for people with ALS. Including dosage, recovery and intensity. (met) - Patient educated on how to complete home exercise program listed below independently or with caregiver assistance to maintain function, promote wellness, decrease risk of secondary impairments (met) - Patient demonstrates independent and proper use of assistive device to allow for improved walking quality and safety therefore reducing the risk of falls (met) - Patient/ caregiver educated on safe transfers, positioning, and use of adaptive equipment this date to ensure safety for patient and caregiver (met) Recommended Equipment: pivot disc and power wheelchair Planned Interventions, Frequency, and Duration: 2x/week, 6 weeks Total Number of Visits Planned: 12 Patient to be seen for Therapeutic exercise (74487), Neuromuscular re-education (51413), Manual therapy (60684), Therapeutic activities (61897), Self-nursing home management (63038), Patient/Family/Caregiver Education, Orthosis / DME PLAN FOR NEXT VISIT: Resume exercises not completed this date during next therapy session. SUBJECTIVE: Patient saw a PRESCHOOL ADVISER the other day who recommended her to purchase an iPad to allow her to do speech to text to help with her communication. She also recently signed up for a research program through the [facility] to record a collection of phrases to help with training Sumi and Nadja capabilities to recognize voice commands. Patient states that her R knee pain continues to wake her up 4-5 times per night and she will wake up and sit up for relief. Patient rates her R knee pain at 3 out of 10 today. Patient and her report that she continues to struggle with stair negotiation to enter and exit her house and that he has to help push her up the steps and assist her in getting down the steps and that this has not changed since starting therapy. They are in the early stages of looking into reconverting the elevator shaft in their h (more content not included)... [facility] 02-29-2024 History of Present illness Narrative Images from the original note were not included. Episode Visit Count: 35 Therapist That Will Accept/Oversee The Plan Of Care: Nathan Madrigal PT, ANABELLE Start of Care Date: 10/03/23 Onset Date: 12/31/23 Plan of Care Certification Date: 02/29/24 Next Certification Due Date: 04/18/24 Patient Identified by Name and Date of : Yes REHABILITATION AND SPORTS THERAPY PHYSICAL THERAPY PROGRESS REPORT PLAN OF CARE UPDATE: Assessment: Waldemar Hudson demonstrates ongoing complaint of R knee pain and bilateral LE hypertonia and she has responded well to manual passive bilateral LE and trunk ROM and stretching as well as bilateral LE strengthening exercises. She has progressed toward goals. Patient continues to present with impairments in ADL's, gait, independence in exercise, overall function, posture, range of motion, strength, and symptom management that interfere with rising from a chair, standing, walking, stair negotiation Patient now has a power wheelchair and a pivot disc to use with stand pivot transfers. She has difficulty with walking with her WW for short distances due to the R knee pain.. Current prognosis is Fair due to: clinical presentation, chronic nature of impairments, limited tolerance to activity, Prognosis may be improved by good support system/ coping skills, positive past response to therapy. She will benefit from continued skilled therapy services to meet the updated goals for this plan of care as noted below. Goals for Episode of Care: created on 02/29/2024 through 04/18/2024 Patient will increase active ROM of bilateral knees to no greater than 10-15 degrees from achieving full knee extension to allow patient to improve postural alignment, to improve body/postural mechanics for transfers / gait pattern , and to decrease falls risks. (Ongoing) Patient will be able to correct postural deviations with minimal assist verbal cues in order to improve postural alignment of trunk during transfers, ambulation, and standing and to decrease current R LE pain. (Ongoing) Decrease R hip/R knee pain to 1-4/10 at rest and with functional activities to allow patient to improve ambulation, transfers, and standing tolerance for ADLs. (Ongoing. Patient rates her R knee pain at 3 out of 10 today and struggles with nighttime pain that keeps her up at night) Patient to be able to non-reciprocally negotiate stairs at home with bilateral rail use with assist of for safety as needed and be able to complete this task in 5 minutes as she did previously. (No changes per patient and her and they are looking into installing an elevator) Patient Goals: To reduce my right knee pain New goals added for ALS Clinic updated 01/09/2024 - Patient education regarding pathophysiology and relationship to deficits presented this date, including exercise recommendations for people with ALS. Including dosage, recovery and intensity. (met) - Patient educated on how to complete home exercise program listed below independently or with caregiver assistance to maintain function, promote wellness, decrease risk of secondary impairments (met) - Patient demonstrates independent and proper use of assistive device to allow for improved walking quality and safety therefore reducing the risk of falls (met) - Patient/ caregiver educated on safe transfers, positioning, and use of adaptive equipment this date to ensure safety for patient and caregiver (met) Recommended Equipment: pivot disc and power wheelchair Planned Interventions, Frequency, and Duration: 2x/week, 6 weeks Total Number of Visits Planned: 12 Patient to be seen for Therapeutic exercise (61517), Neuromuscular re-education (85621), Manual therapy (66603), Therapeutic activities (83683), Self-nursing home management (88713), Patient/Family/Caregiver Education, Orthosis / DME PLAN FOR NEXT VISIT: Resume exercises not completed this date during next therapy session. SUBJECTIVE: Patient saw a PRESCHOOL ADVISER the other day who recommended her to purchase an iPad to allow her to do speech to text to help with her communication. She also recently signed up for a research program through the [facility] to record a collection of phrases to help with training Sumi and Nadja capabilities to recognize voice commands. Patient states that her R knee pain continues to wake her up 4-5 times per night and she will wake up and sit up for relief. Patient rates her R knee pain at 3 out of 10 today. Patient and her report that she continues to struggle with stair negotiation to enter and exit her house and that he has to help push her up the steps and assist her in getting down the steps and that this has not changed since starting therapy. They are in the early stages of looking into reconverting the elevator shaft in their home back to an elevator. Functional Limitations: rising from a chair, standing, walking, stair negotiation Functional Limitation Comments: Patient now has a power wheelchair and a pivot disc to use with stand pivot transfers. She has difficulty with walking with her WW for short distances due to the R knee pain. Pain: Pain Pain Level: 3 Pain Location: Knee - Right Post Treatment Pain Post Treatment Pain Level: Better PROMIS Scales 02/28/2024 02/04/2024 01/27/2024 Higher is Better Phys Func - Score 22 (severe dysfunction) Phys Func - Percentile 0 Self-Eff Symptom - Score 39 (Low) 38 (Low) Self-Eff Symptom - Percentile 14 12 T-scores: mean of general population = 50. 5 points is clinically meaningfully difference Percentiles provide an indication of how the patient's score ranks in relation to the general population. Higher percentile rankings indicate better function/quality of life. 50th percentile is the average of the general population and indicates half of respondents had a worse score. OBJECTIVE MEASURES WITH LEVEL OF FUNCTION: Posture / Alignment Posture: Forward head, Rounded shoulders, Comments Posture comment: Trunk/hips/knees flexed, bilateral hip flexor and bilateral knee flexor tightness/contractures due to hypertonia. LE AROM R Knee Extension: -30 Degrees R Knee Flexion: 105 Degrees L Knee Extension: -20 Degrees L Knee Flexion: 105 Degrees LE PROM R Knee Extension: (-20 to -25 degrees) L Knee Extension: -15 Degrees LE Strength R Hip Flexion (L2): (4-4+/5) R Hip ABduction: (4-4+/5) R Hip ADduction: 4+/5 R Knee Extension (L3): 4/5 R Knee Flexion: 4+/5 R Ankle Dorsiflexion (L4): 4/5 R Ankle Plantar Flexion: 4+/5 L Hip Flexion (L2): (4-4+/5) L Hip ABduction: (4-4+/5) L Hip ADduction: 4+/5 L Knee Extension (L3): 4/5 L Knee Flexion: 4+/5 L Ankle Dorsiflexion (L4): 4/5 L Ankle Plantar Flexion: 4+/5 Tone Tone: Hypertonic Hypertonic Comments: L LE hypertonia, R LE hypertonia and R LE went into spasm with R hip/knee flexion passive stretching R LE today on 2 occasions. Mobility Supine To Sit: Minimal Assistance (for trunk and LE management) Sit to Supine: Minimal Assistance Sit To Stand: Moderate Assistance Stand To Sit: Moderate Assistance Bed To Chair: Minimal Assistance (Uses pivot disc for stand pivot transfer) TREATMENT: Therapeutic Exercise: 3: Seated resisted adduction x 30 reps 4: Seated resisted abduction x 30 reps w/ pink 5: Supine bridging 2 x 15 reps over yellow ball 6: Supine bent leg marching 2 x 15 reps alternating with LE rested on yellow ball (Did not complete today) 7: SAQ 2 x 15 reps over yellow ball each LE with assist 8: Supine lower trunk rotation with assist with bilateral LE rested on yellow therapy ball x 15 each direction 9: Supine bilateral knee flexion rolling on large yellow theraball 3 x 10 reps (Did not complete today) 11: Seated LAQ 2 x 15 reps each LE (Did not complete today) 12: Seated resisted knee flexion 2 x 15 reps each LE (Did not complete today) Skilled Intervention: Skilled judgment was used in selection of appropriate interventions. Completed Progress Report for bilateral knee ROM, bilateral LE strength testing and to assess for progress towards therapy goals. Manual Therapy: 1: Passive stretching to each LE for hips flexion, abduction, hip ER and IR in flexion and hamstrings stretching, knees flexion/extension and bilateral calf stretches x 15 reps each. Skilled Intervention: Manual skills to improve joint mobility, ROM, and decrease pain. Utilized anatomy knowledge of the therapist, and assessment of patient's response to intervention. Billing Therapeutic Exercise Treatment Minutes: 30 Manual TherapyTreatment Minutes: 25 Skilled Treatment Time Minutes (timed and untimed codes): 55 Total Session Time (minutes): 61 Session Start Time : 1412 Session Stop Time : 1513 Nathan Madrigal PT, ANABELLE documented in this encounter [facility] 02-28-2024 Note HNO ID: [id number] Author: CORI HOPE R Ac Service: ? Author Type: Diplomat of Acupuncture Type: Progress Notes Filed: 02/28/2024 16:03 Note Text: Waldemar Hudson a 68 year old female presents to the acupuncture clinic on 02/28/24 for a follow up visit. Patient identity confirmed by name and : Yes This is the 14 visit for the patient this year It has been 2 week(s) since the last acupuncture treatment. Last treatment date: 02/14/2024 Initial Acupuncture treatment date: 11/12/2023 Chief Complaint: Primary lateral sclerosis, right lateral knee pain, muscle spasticity SUBJECTIVE Patient returns with no significant change in condition. Swelling in right ankle has been more noticeable over the past 2 weeks. Patient stopped taking Baclofen as it has been giving her more side effects than benefit. She has had blood test for Lyme Disease, seeing an independent Lyme specialist. 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 Patient might need to hold off on scheduled knee injection as she has bacterial infection. * Past history of thyroid cancer We discussed trying Cryptolepsis as a natural herbal antibiotic approach to fight against Lyme. I provided patient with the product information. Hold off on taking Alfredo Gaytan until she finished baclofen. Cryptolepsis has been ordered. Patient noted her right knee pain was much improved for a few days following the previous acupuncture. Patient has been battling MS since 2012. Patient has history of Lyme disease, mold exposure and thyroid cancer. Thyroidism Trialed PT, dry needling, chiropractic, massage. PAIN ASSESSMENT: Currently experiencing pain Pain level (0 no pain at all to 10 being the worst): 4 OBJECTIVE: Physical Exam: Tenderness: knees and feet Pain with palpation: na ROM: limited ROM Orthopedic Tests: na Tightness: knees Divina/Trigger points: na Visual Inspection Discoloration: na Edema: no Gait/Ambulation: normal Ovalle: good Qi/Patient vitality: normal Alert Well-Groomed Normal Imaging reports Images on file See EPIC Images have been reviewed no TCM Tongue: NA TCM Pulse: thin and weak ASSESSMENT Patient presents with signs and symptoms consistent with the diagnosis. Patient would benefit from acupuncture therapy to address listed deficiencies and return to PLOF. Pt was educated on symptoms, prognosis, plan of care and activity modifications. Pt verbalized understanding and agreed to begin care. TCM Pattern: PLS due to Qi and blood deficiency. TCM Treatment Principle: Calm Ovalle. Promote smooth flow of Qi and blood. Open channel. Reduce pain. PLAN OF CARE Counseled patient on risks of acupuncture treatment including pain, infection, bleeding, and no relief of pain. The patient was positioned comfortably. There was no evidence of infection at the site of needle insertions. Acupuncture Treatment: Treatment/Needle Set 1, Supine: Points: Yin Gaytan, motor line 2 points bilaterally on the scalp, ear ovalle men, Jan Zenon, Ling Gu, Da Austen, SP9, R: SJ3, SI3 15 minutes face to face with patient for set 1 Treatment/Needle Set 2, Supine: Points: R: GB34, ST36, ST34, Esquivel Chi, Xi Dinh, SP10, B: GB41, ST43, SP9, SP6, KD3 10 minutes face to face with patient for set 2 Calcium were retained for 30 minutes # of needles inserted: 32 # of needles withdrawn: 32 Adjunct techniques used: TDP Infrared Heat Lamp- Applied to Rt. Hip and right knee Patient tolerated the procedure well. UNIVERSAL PROTOCOL / SAFETY CHECKLIST Procedure to be Performed: Acupuncture Sign In: A Moment of CARE was completed. Personnel directly involved with the procedure wore the appropriate PPE (Personal Protective Equipment). Patient/Surrogate Stated/Verified: PATIENT VERIFIED(optional for EMERGENT procedures): Patient name, Date of , Relevant allergies, and The intended procedure Time Out Communication: Intended patient and procedure match the source documents. Consent documented and matches the intended procedure. Sign Out: SIGN OUT (optional for EMERGENT procedures): All instruments, equipment, possible retained foreign bodies accounted for. Trenton Hanson Provider Name: Trenton Hanson 25 Total minutes face to face time spent with patient Acupuncture and [place] herbal therapy are not a substitute for conventional medical diagnosis and treatment. Patient agrees that either: 1. A diagnostic exam has been performed by a physician or chiropractor within the last six months regarding the condition for which they are seeking acupuncture treatment. or 2. If no diagnostic exam by a physician or chiropractor has been done within the last six months regarding the condition for which patient is seeking treatment, the Processing Analyst, per [place] Law, recommends that this diagnostic exam be performed. [facility] 02-28-2024 History of Present illness Narrative Waldemar Hudson a 68 year old female presents to the acupuncture clinic on 02/28/24 for a follow up visit. Patient identity confirmed by name and : Yes This is the 14 visit for the patient this year It has been 2 week(s) since the last acupuncture treatment. Last treatment date: 02/14/2024 Initial Acupuncture treatment date: 11/12/2023 Chief Complaint: Primary lateral sclerosis, right lateral knee pain, muscle spasticity SUBJECTIVE Patient returns with no significant change in condition. Swelling in right ankle has been more noticeable over the past 2 weeks. Patient stopped taking Baclofen as it has been giving her more side effects than benefit. She has had blood test for Lyme Disease, seeing an independent Lyme specialist. 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 Patient might need to hold off on scheduled knee injection as she has bacterial infection. * Past history of thyroid cancer We discussed trying Cryptolepsis as a natural herbal antibiotic approach to fight against Lyme. I provided patient with the product information. Hold off on taking Alfredo Gaytan until she finished baclofen. Cryptolepsis has been ordered. Patient noted her right knee pain was much improved for a few days following the previous acupuncture. Patient has been battling MS since 2012. Patient has history of Lyme disease, mold exposure and thyroid cancer. Thyroidism Trialed PT, dry needling, chiropractic, massage. PAIN ASSESSMENT: Currently experiencing pain Pain level (0 no pain at all to 10 being the worst): 4 OBJECTIVE: Physical Exam: Tenderness: knees and feet Pain with palpation: na ROM: limited ROM Orthopedic Tests: na Tightness: knees Divina/Trigger points: na Visual Inspection Discoloration: na Edema: no Gait/Ambulation: normal Ovalle: good Qi/Patient vitality: normal Alert Well-Groomed Normal Imaging reports Images on file See EPIC Images have been reviewed no TCM Tongue: NA TCM Pulse: thin and weak ASSESSMENT Patient presents with signs and symptoms consistent with the diagnosis. Patient would benefit from acupuncture therapy to address listed deficiencies and return to PLOF. Pt was educated on symptoms, prognosis, plan of care and activity modifications. Pt verbalized understanding and agreed to begin care. TCM Pattern: PLS due to Qi and blood deficiency. TCM Treatment Principle: Calm Ovalle. Promote smooth flow of Qi and blood. Open channel. Reduce pain. PLAN OF CARE Counseled patient on risks of acupuncture treatment including pain, infection, bleeding, and no relief of pain. The patient was positioned comfortably. There was no evidence of infection at the site of needle insertions. Acupuncture Treatment: Treatment/Needle Set 1, Supine: Points: Yin Gaytan, motor line 2 points bilaterally on the scalp, ear ovalle men, Jan Zenon, Ling Gu, Da Austen, SP9, R: SJ3, SI3 15 minutes face to face with patient for set 1 Treatment/Needle Set 2, Supine: Points: R: GB34, ST36, ST34, Esquivel Chi, Xi Dinh, SP10, B: GB41, ST43, SP9, SP6, KD3 10 minutes face to face with patient for set 2 Calcium were retained for 30 minutes # of needles inserted: 32 # of needles withdrawn: 32 Adjunct techniques used: TDP Infrared Heat Lamp- Applied to Rt. Hip and right knee Patient tolerated the procedure well. UNIVERSAL PROTOCOL / SAFETY CHECKLIST Procedure to be Performed: Acupuncture Sign In: A Moment of CARE was completed. Personnel directly involved with the procedure wore the appropriate PPE (Personal Protective Equipment). Patient/Surrogate Stated/Verified: PATIENT VERIFIED(optional for EMERGENT procedures): Patient name, Date of , Relevant allergies, and The intended procedure Time Out Communication: Intended patient and procedure match the source documents. Consent documented and matches the intended procedure. Sign Out: SIGN OUT (optional for EMERGENT procedures): All instruments, equipment, possible retained foreign bodies accounted for. Trenton Hanson Provider Name: Trenton Hanson 25 Total minutes face to face time spent with patient Acupuncture and [place] herbal therapy are not a substitute for conventional medical diagnosis and treatment. Patient agrees that either: 1. A diagnostic exam has been performed by a physician or chiropractor within the last six months regarding the condition for which they are seeking acupuncture treatment. or 2. If no diagnostic exam by a physician or chiropractor has been done within the last six months regarding the condition for which patient is seeking treatment, the Processing Analyst, per [place] Law, recommends that this diagnostic exam be performed. documented in this encounter [facility] 02-28-2024 Note HNO ID: [id number] Author: VANESSA TOBAR CCC-PRESCHOOL ADVISER Service: ? Author Type: Speech Language Pathologist Type: Progress Notes Filed: 02/28/2024 12:29 Note Text: AUGMENTATIVE AND ALTERNATIVE COMMUNICATION EVALUATION SPEECH AND LANGUAGE THERAPY SERVICE DATE: 02/26/2024 : 1955 Primary Care Physician: Keren Dumont MD Referring Physician: Joan Prieto MD Waldemar Hudson was seen for Speech Language Therapy at 1000 for Co-treat with OT for 100 minutes of SLT AUG/ALT Communication Eval ([id number]). Augmentative and Alternative Communication (AAC) Evaluation Patient Name: Waldemar Hudson Date of : 1955 Date of Evaluation: 02/26/2024 Patient seen at 1005 for 100 minutes. [employer]ision Agriculture Specialist services required for session: no. Patient was accompanied to this evaluation by [facility] Reason for Visit: Waldemar Hudson is here with her family today to determine if she would benefit from augmentative and alternative communication strategies. Abuse screening: Signs/ reports of abuse or neglect: No Behavior: alert, attentive, and compliant Referral Source: Dr. 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 Vocational History: Patient does not currently work. 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 Therapies: Patient currently receives physical therapy 2x/week. Acupuncture 1x/week at [facility]. Coordination of Care: Communication regarding this evaluation and use of a Augmentative and Alternative Communication across settings has been initiated with additional providers including: ALS team and outpatient therapies Previous Speech Generating Device (SGD) Use: The patient does not currently own an SGD. Family Support: Patient lives with Dieter and daughter. Two additional children live out of town ([place] and [place]). Additional support is available through family and friends who help to care for the patient and provide assistance as needed. Hearing Patient possess the hearing abilities to effectively use an augmentative and alternative communication system to communicate functionally. No change in hearing status since diagnosis of ALS. Vision Patient does possess the visual ability to effectively use an AAC system to communicate functionally. Patient does not have a change in vision status since diagnosis of ALS. Long time wearer of glasses (since 5th grade). Recently had bilateral cataract surgery recently and this has improved vision significantly. Speech Oral Motor: Structures: appear intact Function: not functional for communication secondary to severe dysarthria Current Speech Status: Not functional for communication needs: Primarily uses word combinations and phrases/sentences with 50%-75% intelligibility with familiar caregivers and 25% or less intelligibility with unfamiliar caregivers. Patient's speaking needs cannot be met using natural communication (verbal speech, gestures) or low-technology speaking devices. Respiratory Status: Patient has adequate breath support to allow for verbal communication. However, severe dysarthria persists despite breath support. Physical Status Patient does posses the physical abilities to effectively use an AAC system and required accessories to communicate functionally. In w/c every day - stressless recliner favorite chair when sitting at her computer or will sit in her office chair. 3 weeks has had w/c - power w/c R knee painful; L foot drop Left handed - lost more function in her left hand first , now losing function in R hand and starting to struggle with her voice and communication Can still do a lot of things with her right hand - not writing anything by hand at this time. Typing is okay, but can be challenging - tonie and ugarte technique to type Mac computer has at home and talked about keyboard function modifications Bed rail and pivoter has helped a lot with transfers - got from the ALS clinic doing majority of all transfers Daughter is currently living 3 doors down from them in a town home. also assists a lot with all dressing and ADL skills Doing a chin tuck with her swallowing - drinking smoothies and sparkling water Taking a medication for her saliva management - and reported it has helped Able to feed self at this time - build manager weight fork has helped - can grasp a regular fork still Pt reported she is still able to wash her own hair using both arms Description of pertinent considerations regarding motor skills Uses wheelchair: not able to walk at this time and requires max/dependent assist for all transfers - he;ps with all of her transfers at this (more content not included)... [facility] 02-28-2024 History of Present illness Narrative AUGMENTATIVE AND ALTERNATIVE COMMUNICATION EVALUATION SPEECH & LANGUAGE THERAPY SERVICE DATE: 02/26/2024 : 1955 Primary Care Physician: Keren Dumont MD Referring Physician: Joan Prieto MD Waldemar Hudson was seen for Speech Language Therapy at 1000 for Co-treat with OT for 100 minutes of SLT AUG/ALT Communication Eval ([id number]). Augmentative and Alternative Communication (AAC) Evaluation Patient Name: Waldemar Hudson Date of : 1955 Date of Evaluation: 02/26/2024 Patient seen at 1005 for 100 minutes. [employer] Specialist services required for session: no. Patient was accompanied to this evaluation by Dieter Reason for Visit: Waldemar Hudson is here with her family today to determine if she would benefit from augmentative and alternative communication strategies. Abuse screening: Signs/ reports of abuse or neglect: No Behavior: alert, attentive, and compliant Referral Source: Dr. 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 Vocational History: Patient does not currently work. 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 Therapies: Patient currently receives physical therapy 2x/week. Acupuncture 1x/week at [facility]. Coordination of Care: Communication regarding this evaluation and use of a Augmentative and Alternative Communication across settings has been initiated with additional providers including: ALS team and outpatient therapies Previous Speech Generating Device (SGD) Use: The patient does not currently own an SGD. Family Support: Patient lives with Dieter and daughter. Two additional children live out of town ([place] and [place]). Additional support is available through family and friends who help to care for the patient and provide assistance as needed. Hearing Patient possess the hearing abilities to effectively use an augmentative and alternative communication system to communicate functionally. No change in hearing status since diagnosis of ALS. Vision Patient does possess the visual ability to effectively use an AAC system to communicate functionally. Patient does not have a change in vision status since diagnosis of ALS. Long time wearer of glasses (since 5th grade). Recently had bilateral cataract surgery recently and this has improved vision significantly. Speech Oral Motor: Structures: appear intact Function: not functional for communication secondary to severe dysarthria Current Speech Status: Not functional for communication needs: Primarily uses word combinations and phrases/sentences with 50%-75% intelligibility with familiar caregivers and 25% or less intelligibility with unfamiliar caregivers. Patient's speaking needs cannot be met using natural communication (verbal speech, gestures) or low-technology speaking devices. Respiratory Status: Patient has adequate breath support to allow for verbal communication. However, severe dysarthria persists despite breath support. Physical Status Patient does posses the physical abilities to effectively use an AAC system and required accessories to communicate functionally. In w/c every day - stressless recliner favorite chair when sitting at her computer or will sit in her office chair. 3 weeks has had w/c - power w/c R knee painful; L foot drop Left handed - lost more function in her left hand first , now losing function in R hand and starting to struggle with her voice and communication Can still do a lot of things with her right hand - not writing anything by hand at this time. Typing is okay, but can be challenging - schilling and ugarte technique to type Rub[employer] computer has at home and talked about keyboard function modifications Bed rail and pivoter has helped a lot with transfers - got from the ALS clinic doing majority of all transfers Daughter is currently living 3 doors down from them in a town home. also assists a lot with all dressing and ADL skills Doing a chin tuck with her swallowing - drinking smoothies and sparkling water Taking a medication for her saliva management - and reported it has helped Able to feed self at this time - build manager weight fork has helped - can grasp a regular fork still Pt reported she is still able to wash her own hair using both arms Description of pertinent considerations regarding motor skills Uses wheelchair: not able to walk at this time and requires max/dependent assist for all transfers - he;ps with all of her transfers at this time. Not currently using a mechanical lift. Upper Extremity Function Neuromuscular: hypertonic: 1 - 1+ Reflexes: n/a Comments: Has a lot of pain in her hands - they cramp up per patient's report Right web space - occasional pain and knuckle pain bilaterally Does a lot of crocheting - that has helped Range of Motion Range of motion: Limitations with movement in BUE's, however still able to move both UE's functionally. Comments: AROM: RUE/LUE - able to reach through shoulder flexion, shoulder abduction to ~130 -150 degrees RUE/LUE - adduction WFL's RUE/LUE - elbow and wrist - WFL's, just slow moving with all movement Able to extend and flex all digits and able to oppose each digit to her thumb bilaterally. PROM: - Full PROM in bilateral wrists, elbows. Slight decreased PROM in shoulder flexion and shoulder adduction ~160-170's degree bilaterally. Left Upper Extremity (LUE): Shoulder: functional Elbow: functional Wrist: functional Fingers: functional Right Upper Extremity (RUE): Shoulder: functional Elbow: functional Wrist: functional Fingers: functional Splints: Does have hand splints that she will wear at night, however often does not wear as it is hard to sleep with them Access/Fine Motor Skills Fine motor skills are adequate to independently utilize an augmentative and alternative communication device. Patient's fine motor status relative to communication with AAC is as follows: Direct selection: uses right and left bilateral thumbs for typing on phone and uses both hands - noted to use ring and middle finger most often - 5th and 1st digit remain in extension when typing most often Device Portability/Placement Device needs mounting. Optimum device position is at table top level or mounted to her power w/c Description of accommodations that may be required over time to deal with changes in physical access: will need mounting Cognitive Ability Patient demonstrates the following skills to learn to use an AAC device to achieve functional communication goals: attention, memory, problem solving, turn on/off device, navigate pages, use dictionary features, use word prediction, and program own messages. Patient does not present with a change in cognitive status since diagnosis of ALS. Cognitive skills are characterized by a skills within normal limits. Language Skills Receptive Language: Patient does present with adequate receptive language skills in order to participate in communication with peers, family members, and medical insurance verifier. No deficits present. Writing/Literacy Patient presents with the following literacy skills: able to read and comprehend written information without difficulty, literacy skills remain intact. Patient's writing skills are impacted by diagnosis of ALS. She is currently able to write with 50% legibility using non-dominant hand right hand. Expressive Language Patient uses the following methods to communicate: facial expression, vocalizations/verbalizations, writing, and typing Language formulating messages: combines pictures/symbols to construct complete sentences Communication Abilities and Participation participates in medical decision making, ask and answer questions related to care, self-advocacy Communication Function Classification System (CFCS): N/A Limitations of Current Communication: Waldemar presents with declining function secondary to the diagnosis of Amyotrophic Lateral Sclerosis (ALS). At this time, the patient exhibits frequent communication breakdowns as a result of dysarthria. When these communication breakdowns occur, the patient is unable to share medical information with caregivers, ask for assistance, or ask questions - rendering her unable to be an active participate in medical decisions. Waldemar Requires AAC strategies and adaptations in order to meet functional communication goals. Prognosis of Speech/Anticipated Course of Impairment: Waldemar has a diagnosis of Amyotrophic Lateral Sclerosis (ALS). This diagnosis is terminal and not anticipated to improve in response to treatment or intervention. Patient's with ALS present with a decrease in motor function, including, but not limited to: reduced intelligibility with dysarthric characteristics, reduced breath support, aphonia (inability to produce verbal speech), or reliance on mechanical ventilation that makes the patient unable to communicate. At this time, it is anticipated that Anthonys condition will continue to decline, although an exact timeline is not able to be predicted. Daily Communication Needs Communication Partners: family, friends, community members, medical personnel. Communication Environments: home, community settings, and medical settings Summary of Trial Results Discussed and concerned several augmentative communication options and modifications. Summarized below: 1) Trial completed with both the [employer] Post 1400 with Look Module and the [employer] i13. Patient quickly calibrated both systems without difficulty and demonstrated the ability to convey novel messages through eye gaze using a keyboard. 2) Develop a quick needs paper to have at your bedside (possibly in quadrants that you could point to in order to share a message such as I need to stand up). 3) Voice output buttons on [employer] (as we discussed, the ones that are marketed to having dogs talk are identical to the medical ones and a fraction of the cost). This could be used for quickly asking for help or calling for someone in another room. 4) Look into voice banking and see if it can be done using recordings of previous lectures. I've had patients use both [employer] and [employer] companies in the past. 5) Find ways to utilize existing functions on iphone to gain better accessibility. 6) Obtain an iPad mini to help with typing on assistant executive housekeeper belle. Text to Speech Belle on her phone currently - she types very slow and reported it is a 5/10 in terms of difficulty to type on her phone. May do better with an iPad (larger screen) Treatment Plan: Follow up with this clinic if fine motor skills decrease to a point where direct selection on a green is not feasible. Physician Involvement Statement: A copy of this report has been forwarded to the patient's treating physician prior to ordering any equipment. The physician has played an active role in medical decisions pertaining to the speech generating device recommendation outlined above. Vanessa Tobar MA CCC-PRESCHOOL ADVISER Speech-Language Pathologist [place] License Number: [id number] SAAD Number: [id number] SIGNATURE: SEAMUS Tenorio PATIENT NAME: Waldemar Hudson DATE: February 28, 2024 TIME: 12:28 PM documented in this encounter [facility] 02-26-2024 History of Present illness Narrative Summary: AAC Eval AUGMENTATIVE AND ALTERNATIVE COMMUNICATION (AAC) EVALUATION VISIT OCCUPATIONAL THERAPY SERVICE DATE: 02/26/2024 Primary Care Physician: Keren Dumont MD Waldemar Hudson is a 68 year old seen for Occupational Therapy at 1020 for Co-treat with Sravain BOLIVAR for 100 minutes of 100 minutes OT Evaluation - Moderate Complexity (32641). Sravani BOLIVAR started evaluation at 1000 EVALUATION COMPLEXITY: Moderate Complexity Evaluation was determined based on the following factors: Background Review: Moderate: medical history and therapy history Assessment/Examination of Occupational Performance: Performance deficits resulting in activity limitations/restrictions: *identified 3-5 performance deficits relating to physical, cognitive or psychosocial skills: ADL PERFORMANCE: bathing, toileting, dressing, feeding, functional mobility, strength, ROM, gross motor, and bilateral coordination IADLS PERFORMANCE: communication management, strength, gross motor, and bilateral coordination LEISURE PERFORMANCE: leisure exploration and bilateral coordination SOCIAL PARTICIPATION PERFORMANCE: community, family, and peers/friends Complexity of Decision Making: Moderate - Patient presents with comorbidities that affect occupational performance - Minimal to Moderate modification of tasks/assistance (physical or verbal) was necessary to complete evaluation components [employer] Specialist services required for session: no. Patient was accompanied to this evaluation by Dieter Reason for Visit: Waldemar Hudson is here with her family today to determine if she would benefit from augmentative and alternative communication strategies. Abuse screening: Signs/ reports of abuse or neglect: No Behavior: alert, attentive, and compliant Referral Source: Dr. 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 Vocational History: Patient does not currently work. 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 Therapies: Patient currently receives physical therapy 2x/week. Acupuncture 1x/week at [facility]. Coordination of Care: Communication regarding this evaluation and use of a Augmentative and Alternative Communication across settings has been initiated with additional providers including: ALS team and outpatient therapies Previous Speech Generating Device (SGD) Use: The patient does not currently own an SGD. Family Support: Patient lives with Dieter and daughter. Two additional children live out of town ([place] and [place]). Additional support is available through family and friends who help to care for the patient and provide assistance as needed. Hearing Patient possess the hearing abilities to effectively use an augmentative and alternative communication system to communicate functionally. No change in hearing status since diagnosis of ALS. Vision Patient does possess the visual ability to effectively use an AAC system to communicate functionally. Patient does not have a change in vision status since diagnosis of ALS. Long time wearer of glasses (since 5th grade). Recently had bilateral cataract surgery recently and this has improved vision significantly. Speech Oral Motor: Structures: appear intact Function: not functional for communication secondary to severe dysarthria Current Speech Status: Not functional for communication needs: Primarily uses word combinations and phrases/sentences with 50%-75% intelligibility with familiar caregivers and 25% or less intelligibility with unfamiliar caregivers. Patient's speaking needs cannot be met using natural communication (verbal speech, gestures) or low-technology speaking devices. Respiratory Status: Patient has adequate breath support to allow for verbal communication. However, severe dysarthria persists despite breath support. Physical Status Patient does posses the physical abilities to effectively use an AAC system and required accessories to communicate functionally. In w/c every day - stressless recliner favorite chair when sitting at her computer or will sit in her office chair. 3 weeks has had w/c - power w/c R knee painful; L foot drop Left handed - lost more function in her left hand first , now losing function in R hand and starting to struggle with her voice and communication Can still do a lot of things with her right hand - not writing anything by hand at this time. Typing is okay, but can be challenging - schilling and ugarte technique to type [employer] computer has at home and talked about keyboard function modifications Bed rail and pivoter has helped a lot with transfers - got from the ALS clinic doing majority of all transfers Daughter is currently living 3 doors down from them in a town home. also assists a lot with all dressing and ADL skills Doing a chin tuck with her swallowing - drinking smoothies and sparkling water Taking a medication for her saliva management - and reported it has helped Able to feed self at this time - build manager weight fork has helped - can grasp a regular fork still Pt reported she is still able to wash her own hair using both arms Description of pertinent considerations regarding motor skills Uses wheelchair: not able to walk at this time and requires max/dependent assist for all transfers - he;ps with all of her transfers at this time. Not currently using a mechanical lift. Upper Extremity Function Neuromuscular: hypertonic: 1 - 1+ Reflexes: n/a Comments: Has a lot of pain in her hands - they cramp up per patient's report Right web space - occasional pain and knuckle pain bilaterally Does a lot of crocheting - that has helped Range of Motion Range of motion: Limitations with movement in BUE's, however still able to move both UE's functionally. Comments: AROM: RUE/LUE - able to reach through shoulder flexion, shoulder abduction to ~130 -150 degrees RUE/LUE - adduction WFL's RUE/LUE - elbow and wrist - WFL's, just slow moving with all movement Able to extend and flex all digits and able to oppose each digit to her thumb bilaterally. PROM: - Full PROM in bilateral wrists, elbows. Slight decreased PROM in shoulder flexion and shoulder adduction ~160-170's degree bilaterally. Left Upper Extremity (LUE): Shoulder: functional Elbow: functional Wrist: functional Fingers: functional Right Upper Extremity (RUE): Shoulder: functional Elbow: functional Wrist: functional Fingers: functional Splints: Does have hand splints that she will wear at night, however often does not wear as it is hard to sleep with them Access/Fine Motor Skills Fine motor skills are adequate to independently utilize an augmentative and alternative communication device. Patient's fine motor status relative to communication with AAC is as follows: Direct selection: uses right and left bilateral thumbs for typing on phone and uses both hands - noted to use ring and middle finger most often - 5th and 1st digit remain in extension when typing most often Device Portability/Placement Device needs mounting. Optimum device position is at table top level or mounted to her power w/c Description of accommodations that may be required over time to deal with changes in physical access: will need mounting Cognitive Ability Patient demonstrates the following skills to learn to use an AAC device to achieve functional communication goals: attention, memory, problem solving, turn on/off device, navigate pages, use dictionary features, use word prediction, and program own messages. Patient does not present with a change in cognitive status since diagnosis of ALS. Cognitive skills are characterized by a skills within normal limits. Language Skills - See SLT Report for more details Summary of Trial Results Discussed and concerned several augmentative communication options and modifications. Summarized below: 1) Trial completed with both the [employer] Post 1400 with Look Module and the [employer] i13. Patient quickly calibrated both systems without difficulty and demonstrated the ability to convey novel messages through eye gaze using a keyboard. 2) Develop a quick needs paper to have at your bedside (possibly in quadrants that you could point to in order to share a message such as I need to stand up). 3) Voice output buttons on [employer] (as we discussed, the ones that are marketed to having dogs talk are identical to the medical ones and a fraction of the cost). This could be used for quickly asking for help or calling for someone in another room. 4) Look into voice banking and see if it can be done using recordings of previous lectures. I've had patients use both [employer] and [employer] companies in the past. 5) Find ways to utilize existing functions on iphone to gain better accessibility. 6) Obtain an iPad mini to help with typing on assistant executive housekeeper belle. Text to Speech Belle on her phone currently - she types very slow and reported it is a 5/10 in terms of difficulty to type on her phone. May do better with an iPad (larger screen) SUMMARY: Waldemar Hudson was seen for an occupational therapy evaluation on 02/26/2024. She has a medical history significant for diagnoses of ALS and displayed the following deficits in occupational performance areas: *identified 3-5 performance deficits relating to physical, cognitive or psychosocial skills: ADL PERFORMANCE: bathing, toileting, dressing, feeding, functional mobility, strength, ROM, gross motor, and bilateral coordination IADLS PERFORMANCE: communication management, strength, gross motor, and bilateral coordination LEISURE PERFORMANCE: leisure exploration and bilateral coordination SOCIAL PARTICIPATION PERFORMANCE: community, family, and peers/friends Her OT evaluation required a expanded review of the medical history. Minimal to moderate modifications of tasks or assistance were required to complete the occupational therapy evaluation, which was of moderate complexity, secondary to the above factors. Treatment Plan: Follow up in this clinic if fine motor skills decrease to a point where direct selection on a screen is not feasible. I hereby certify that I do not have a financial relationship with, nor will we receive any other gain, from the telesales specialist of the recommended device. SIGNATURE: SEFERINO Campo PATIENT NAME: Waldemar Hudson DATE: February 26, 2024 TIME: 1:57 PM ALPHONSE Campo OTR/L Occupational Therapist [place] License Number: [id number] documented in this encounter [facility] 02-26-2024 Note HNO ID: [id number] Author: ELA FERNÁNDEZ OTR/L Service: ? Author Type: Occupational Therapist Type: Progress Notes Filed: 03/03/2024 11:52 Note Text: Summary: AAC Eval AUGMENTATIVE AND ALTERNATIVE COMMUNICATION (AAC) EVALUATION VISIT OCCUPATIONAL THERAPY SERVICE DATE: 02/26/2024 Primary Care Physician: Keren Dumont MD Waldemar Hudson is a 68 year old seen for Occupational Therapy at 1020 for Co-treat with Sravani BOLIVAR for 100 minutes of 100 minutes OT Evaluation - Moderate Complexity (64902). Sravani BOLIVAR started evaluation at 1000 EVALUATION COMPLEXITY: Moderate Complexity Evaluation was determined based on the following factors: Background Review: Moderate: medical history and therapy history Assessment/Examination of Occupational Performance: Performance deficits resulting in activity limitations/restrictions: *identified 3-5 performance deficits relating to physical, cognitive or psychosocial skills: ADL PERFORMANCE: bathing, toileting, dressing, feeding, functional mobility, strength, ROM, gross motor, and bilateral coordination IADLS PERFORMANCE: communication management, strength, gross motor, and bilateral coordination LEISURE PERFORMANCE: leisure exploration and bilateral coordination SOCIAL PARTICIPATION PERFORMANCE: community, family, and peers/friends Complexity of Decision Making: Moderate - Patient presents with comorbidities that affect occupational performance - Minimal to Moderate modification of tasks/assistance (physical or verbal) was necessary to complete evaluation components [employer] Specialist services required for session: no. Patient was accompanied to this evaluation by Dieter Reason for Visit: Waldemar Hudson is here with her family today to determine if she would benefit from augmentative and alternative communication strategies. Abuse screening: Signs/ reports of abuse or neglect: No Behavior: alert, attentive, and compliant Referral Source: Dr. 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 Vocational History: Patient does not currently work. 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 Therapies: Patient currently receives physical therapy 2x/week. Acupuncture 1x/week at [facility]. Coordination of Care: Communication regarding this evaluation and use of a Augmentative and Alternative Communication across settings has been initiated with additional providers including: ALS team and outpatient therapies Previous Speech Generating Device (SGD) Use: The patient does not currently own an SGD. Family Support: Patient lives with Dieter and daughter. Two additional children live out of town ([place] and [place]). Additional support is available through family and friends who help to care for the patient and provide assistance as needed. Hearing Patient possess the hearing abilities to effectively use an augmentative and alternative communication system to communicate functionally. No change in hearing status since diagnosis of ALS. Vision Patient does possess the visual ability to effectively use an AAC system to communicate functionally. Patient does not have a change in vision status since diagnosis of ALS. Long time wearer of glasses (since 5th grade). Recently had bilateral cataract surgery recently and this has improved vision significantly. Speech Oral Motor: Structures: appear intact Function: not functional for communication secondary to severe dysarthria Current Speech Status: Not functional for communication needs: Primarily uses word combinations and phrases/sentences with 50%-75% intelligibility with familiar caregivers and 25% or less intelligibility with unfamiliar caregivers. Patient's speaking needs cannot be met using natural communication (verbal speech, gestures) or low-technology speaking devices. Respiratory Status: Patient has adequate breath support to allow for verbal communication. However, severe dysarthria persists despite breath support. Physical Status Patient does posses the physical abilities to effectively use an AAC system and required accessories to communicate functionally. In w/c every day - stressless recliner favorite chair when sitting at her computer or will sit in her office chair. 3 weeks has had w/c - power w/c R knee painful; L foot drop Left handed - lost more function in her left hand first , now losing function in R hand and starting to struggle with her voice and communication Can still d (more content not included)... [facility] 02-15-2024 Note HNO ID: [id number] Author: DAJA GOMEZ PTA Service: ? Author Type: Clarity Specialists Type: Progress Notes Filed: 02/15/2024 15:58 Note Text: Episode Visit Count: 34 Therapist That Will Accept/Oversee The Plan Of Care: Nathan Madrigal PT, ANABELLE Start of Care Date: 10/03/23 Onset Date: 12/31/23 Plan of Care Certification Date: 01/29/24 Next Certification Due Date: 03/21/24 Patient Identified by Name and Date of : Yes REHABILITATION AND SPORTS THERAPY PHYSICAL THERAPY TREATMENT NOTE ASSESSMENT: Waldemar Hudson tolerated the session with decreased symptoms. She demonstrated difficulty with bilateral knee ROM R>L and occasional spasms of her right LE which caused it to draw up into hip/knee flexion. The patient will continue to benefit from ongoing skilled physical therapy to progress toward set goals. PLAN FOR NEXT VISIT: Continue to progress postural strengthening and LE /core strengthening exercises as pt tolerates. SUBJECTIVE: Patient reported that she is tapering off her Baclofen to stop it as she is not having any benefits and is getting all of the side effects. She reported that her knee is feeling better and would rate at a 2/10. Pain: Pain Pain Level: 2 Pain Location: Knee - Right Post Treatment Pain Post Treatment Pain Level: Better OBJECTIVE MEASURES WITH LEVEL OF FUNCTION: TREATMENT: Therapeutic Exercise: 3: Seated resisted adduction x 30 reps 4: Seated resisted abduction x 30 reps w/ pink 5: Supine bridging 2 x 15 reps over yellow ball 6: Supine bent leg marching 2 x 15 reps alternating with LE rested on yellow ball 7: SAQ 2 x 15 reps over yellow ball each LE with assist 8: Supine lower trunk rotation with assist with bilateral LE rested on yellow therapy ball x 15 each direction 9: Supine bilateral knee flexion rolling on large yellow theraball 3 x 10 reps 11: Seated LAQ 2 x 15 reps each LE 12: Seated resisted knee flexion 2 x 15 reps each LE Skilled Intervention: Patient was educated in proper exercise technique and purpose for exercises. Skilled judgment was used in selection of appropriate interventions. Manual Therapy: 1: Passive stretching to each LE for hips flexion, abduction, hip ER and IR in flexion and hamstrings stretching, knees flexion/extension and bilateral calf stretches x 15 reps each. Skilled Intervention: Manual skills to improve joint mobility, ROM, and decrease pain. Utilized anatomy knowledge of the therapist, and assessment of patient's response to intervention. Billing Therapeutic Exercise Treatment Minutes: 25 Manual TherapyTreatment Minutes: 25 Skilled Treatment Time Minutes (timed and untimed codes): 50 Total Session Time (minutes): 65 Session Start Time : 1405 Session Stop Time : 1510 Daja Gomez [facility] 02-15-2024 History of Present illness Narrative Episode Visit Count: 34 Therapist That Will Accept/Oversee The Plan Of Care: Nathan Madrigal PT, ANABELLE Start of Care Date: 10/03/23 Onset Date: 12/31/23 Plan of Care Certification Date: 01/29/24 Next Certification Due Date: 03/21/24 Patient Identified by Name and Date of : Yes REHABILITATION AND SPORTS THERAPY PHYSICAL THERAPY TREATMENT NOTE ASSESSMENT: Waldemar Hudson tolerated the session with decreased symptoms. She demonstrated difficulty with bilateral knee ROM R>L and occasional spasms of her right LE which caused it to draw up into hip/knee flexion. The patient will continue to benefit from ongoing skilled physical therapy to progress toward set goals. PLAN FOR NEXT VISIT: Continue to progress postural strengthening and LE /core strengthening exercises as pt tolerates. SUBJECTIVE: Patient reported that she is tapering off her Baclofen to stop it as she is not having any benefits and is getting all of the side effects. She reported that her knee is feeling better and would rate at a 2/10. Pain: Pain Pain Level: 2 Pain Location: Knee - Right Post Treatment Pain Post Treatment Pain Level: Better OBJECTIVE MEASURES WITH LEVEL OF FUNCTION: TREATMENT: Therapeutic Exercise: 3: Seated resisted adduction x 30 reps 4: Seated resisted abduction x 30 reps w/ pink 5: Supine bridging 2 x 15 reps over yellow ball 6: Supine bent leg marching 2 x 15 reps alternating with LE rested on yellow ball 7: SAQ 2 x 15 reps over yellow ball each LE with assist 8: Supine lower trunk rotation with assist with bilateral LE rested on yellow therapy ball x 15 each direction 9: Supine bilateral knee flexion rolling on large yellow theraball 3 x 10 reps 11: Seated LAQ 2 x 15 reps each LE 12: Seated resisted knee flexion 2 x 15 reps each LE Skilled Intervention: Patient was educated in proper exercise technique and purpose for exercises. Skilled judgment was used in selection of appropriate interventions. Manual Therapy: 1: Passive stretching to each LE for hips flexion, abduction, hip ER and IR in flexion and hamstrings stretching, knees flexion/extension and bilateral calf stretches x 15 reps each. Skilled Intervention: Manual skills to improve joint mobility, ROM, and decrease pain. Utilized anatomy knowledge of the therapist, and assessment of patient's response to intervention. Billing Therapeutic Exercise Treatment Minutes: 25 Manual TherapyTreatment Minutes: 25 Skilled Treatment Time Minutes (timed and untimed codes): 50 Total Session Time (minutes): 65 Session Start Time : 1405 Session Stop Time : 1510 Daja Gomez PTA documented in this encounter [facility] 02-14-2024 Note HNO ID: [id number] Author: CORI HOPE R Ac Service: ? Author Type: Diplomat of Acupuncture Type: Progress Notes Filed: 02/14/2024 17:03 Note Text: Waldemar Hudson a 68 year old female presents to the acupuncture clinic on 02/14/24 for a follow up visit. Patient identity confirmed by name and : Yes This is the 13 visit for the patient this year It has been 1 week(s) since the last acupuncture treatment. Last treatment date: 02/07/2024 Initial Acupuncture treatment date: 11/12/2023 Chief Complaint: Primary lateral sclerosis, right lateral knee pain, muscle spasm SUBJECTIVE Patient returns with worsened pain in right knee and muscle spasticity due to baclofen side effects. The provider who prescribed the medicine advised patient to taper off from the med. Patient would still experience flare up of right knee pain while sleeping. Follow up in 2 weeks going on vacation, shared my opinion on trying corticosteroidal injection on right knee. We discussed trying Cryptolepsis as a natural herbal antibiotic approach to fight against Lyme. I provided patient with the product information. Hold off on taking Alfredo Gaytan until she finished baclofen. Cryptolepsis has been ordered. Patient noted her right knee pain was much improved for a few days following the previous acupuncture. Patient has been battling MS since 2012. Patient has history of Lyme disease, mold exposure and thyroid cancer. Thyroidism Trialed PT, dry needling, chiropractic, massage. PAIN ASSESSMENT: Currently experiencing pain Pain level (0 no pain at all to 10 being the worst): 4 OBJECTIVE: Physical Exam: Tenderness: knees and feet Pain with palpation: na ROM: limited ROM Orthopedic Tests: na Tightness: knees Divina/Trigger points: na Visual Inspection Discoloration: na Edema: no Gait/Ambulation: normal Ovalle: good Qi/Patient vitality: normal Alert Well-Groomed Normal Imaging reports Images on file See EPIC Images have been reviewed no TCM Tongue: NA TCM Pulse: thin and weak ASSESSMENT Patient presents with signs and symptoms consistent with the diagnosis. Patient would benefit from acupuncture therapy to address listed deficiencies and return to PLOF. Pt was educated on symptoms, prognosis, plan of care and activity modifications. Pt verbalized understanding and agreed to begin care. TCM Pattern: PLS due to Qi and blood deficiency. TCM Treatment Principle: Calm Oavlle. Promote smooth flow of Qi and blood. Open channel. Reduce pain. PLAN OF CARE Counseled patient on risks of acupuncture treatment including pain, infection, bleeding, and no relief of pain. The patient was positioned comfortably. There was no evidence of infection at the site of needle insertions. Acupuncture Treatment: Treatment/Needle Set 1, Supine: Points: Yin Gaytan, motor line 2 points bilaterally on the scalp, ear yamile rucker, Jan Yarbrough, Brittni Ward, Farhan Page, SP9, R: SJ3, SI3 15 minutes face to face with patient for set 1 Treatment/Needle Set 2, Supine: Points: R: GB34, Esquivel Chi, SP9, Si MA points 3, Xi Dinh, SP10, He Ding, B: GB41, ST43 10 minutes face to face with patient for set 2 Calcium were retained for 30 minutes # of needles inserted: 34 # of needles withdrawn: 34 Adjunct techniques used: TDP Infrared Heat Lamp- Applied to Rt. Hip and right knee Patient tolerated the procedure well. UNIVERSAL PROTOCOL / SAFETY CHECKLIST Procedure to be Performed: Acupuncture Sign In: A Moment of CARE was completed. Personnel directly involved with the procedure wore the appropriate PPE (Personal Protective Equipment). Patient/Surrogate Stated/Verified: PATIENT VERIFIED(optional for EMERGENT procedures): Patient name, Date of , Relevant allergies, and The intended procedure Time Out Communication: Intended patient and procedure match the source documents. Consent documented and matches the intended procedure. Sign Out: SIGN OUT (optional for EMERGENT procedures): All instruments, equipment, possible retained foreign bodies accounted for. Trenton Hanson Provider Name: Trenton Hanson 25 Total minutes face to face time spent with patient Acupuncture and [place] herbal therapy are not a substitute for conventional medical diagnosis and treatment. Patient agrees that either: 1. A diagnostic exam has been performed by a physician or chiropractor within the last six months regarding the condition for which they are seeking acupuncture treatment. or 2. If no diagnostic exam by a physician or chiropractor has been done within the last six months regarding the condition for which patient is seeking treatment, the Processing Analyst, per [place] Law, recommends that this diagnostic exam be performed. [facility] 02-14-2024 History of Present illness Narrative Waldemar Hudson a 68 year old female presents to the acupuncture clinic on 02/14/24 for a follow up visit. Patient identity confirmed by name and : Yes This is the 13 visit for the patient this year It has been 1 week(s) since the last acupuncture treatment. Last treatment date: 02/07/2024 Initial Acupuncture treatment date: 11/12/2023 Chief Complaint: Primary lateral sclerosis, right lateral knee pain, muscle spasm SUBJECTIVE Patient returns with worsened pain in right knee and muscle spasticity due to baclofen side effects. The provider who prescribed the medicine advised patient to taper off from the med. Patient would still experience flare up of right knee pain while sleeping. Follow up in 2 weeks going on vacation, shared my opinion on trying corticosteroidal injection on right knee. We discussed trying Cryptolepsis as a natural herbal antibiotic approach to fight against Lyme. I provided patient with the product information. Hold off on taking Alfredo Gaytan until she finished baclofen. Cryptolepsis has been ordered. Patient noted her right knee pain was much improved for a few days following the previous acupuncture. Patient has been battling MS since 2012. Patient has history of Lyme disease, mold exposure and thyroid cancer. Thyroidism Trialed PT, dry needling, chiropractic, massage. PAIN ASSESSMENT: Currently experiencing pain Pain level (0 no pain at all to 10 being the worst): 4 OBJECTIVE: Physical Exam: Tenderness: knees and feet Pain with palpation: na ROM: limited ROM Orthopedic Tests: na Tightness: knees Divina/Trigger points: na Visual Inspection Discoloration: na Edema: no Gait/Ambulation: normal Ovalle: good Qi/Patient vitality: normal Alert Well-Groomed Normal Imaging reports Images on file See EPIC Images have been reviewed no TCM Tongue: NA TCM Pulse: thin and weak ASSESSMENT Patient presents with signs and symptoms consistent with the diagnosis. Patient would benefit from acupuncture therapy to address listed deficiencies and return to PLOF. Pt was educated on symptoms, prognosis, plan of care and activity modifications. Pt verbalized understanding and agreed to begin care. TCM Pattern: PLS due to Qi and blood deficiency. TCM Treatment Principle: Calm Ovalle. Promote smooth flow of Qi and blood. Open channel. Reduce pain. PLAN OF CARE Counseled patient on risks of acupuncture treatment including pain, infection, bleeding, and no relief of pain. The patient was positioned comfortably. There was no evidence of infection at the site of needle insertions. Acupuncture Treatment: Treatment/Needle Set 1, Supine: Points: Yin Gaytan, motor line 2 points bilaterally on the scalp, ear ovalle men, Jan Manleyn, Brittni Gu, Da Austen, SP9, R: SJ3, SI3 15 minutes face to face with patient for set 1 Treatment/Needle Set 2, Supine: Points: R: GB34, Esquivel Chi, SP9, Si MA points 3, Xi Dinh, SP10, He Ding, B: GB41, ST43 10 minutes face to face with patient for set 2 Calcium were retained for 30 minutes # of needles inserted: 34 # of needles withdrawn: 34 Adjunct techniques used: TDP Infrared Heat Lamp- Applied to Rt. Hip and right knee Patient tolerated the procedure well. UNIVERSAL PROTOCOL / SAFETY CHECKLIST Procedure to be Performed: Acupuncture Sign In: A Moment of CARE was completed. Personnel directly involved with the procedure wore the appropriate PPE (Personal Protective Equipment). Patient/Surrogate Stated/Verified: PATIENT VERIFIED(optional for EMERGENT procedures): Patient name, Date of , Relevant allergies, and The intended procedure Time Out Communication: Intended patient and procedure match the source documents. Consent documented and matches the intended procedure. Sign Out: SIGN OUT (optional for EMERGENT procedures): All instruments, equipment, possible retained foreign bodies accounted for. Trenton Hanson Provider Name: Trenton Hanson 25 Total minutes face to face time spent with patient Acupuncture and [place] herbal therapy are not a substitute for conventional medical diagnosis and treatment. Patient agrees that either: 1. A diagnostic exam has been performed by a physician or chiropractor within the last six months regarding the condition for which they are seeking acupuncture treatment. or 2. If no diagnostic exam by a physician or chiropractor has been done within the last six months regarding the condition for which patient is seeking treatment, the Processing Analyst, per [place] Law, recommends that this diagnostic exam be performed. documented in this encounter [facility] 02-12-2024 Note HNO ID: [id number] Author: NATHAN MADRIGAL PT Service: ? Author Type: Physical Therapist Type: Progress Notes Filed: 02/12/2024 13:28 Note Text: Episode Visit Count: 33 Therapist That Will Accept/Oversee The Plan Of Care: Nathan Madrigal PT, ANABELLE Start of Care Date: 10/03/23 Onset Date: 12/31/23 Plan of Care Certification Date: 01/29/24 Next Certification Due Date: 03/21/24 Patient Identified by Name and Date of : Yes REHABILITATION AND SPORTS THERAPY PHYSICAL THERAPY TREATMENT NOTE ASSESSMENT: Waldemar Hudson tolerated the session with increased bilateral LE hypertonia at onset of session with overall trunk stiffness with sit to supine transfer. She demonstrated ability to complete LE and UE/upper back exercises this date and did experience one episode of R LE spasm occurring with passive R hip/knee flexion and extension. More treatment time was designated to passive stretching today. The patient will continue to benefit from ongoing skilled physical therapy to progress toward set goals. PLAN FOR NEXT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 genicular nerve block 3. No new medication was prescribed. 4. Counseled patient regarding the importance of activity modification and exercise. 5. Follow up: 4 to 6 weeks postinjection The above plan and management options were discussed with patient. The patient is in agreement with the above and verbalized understanding. I have discussed and confirmed the above treatment plan with the patient and I have reviewed the nurses notes and I am aware of the family/social history. I have confirmed ROS findings. Ming Peterson MD 1. This document has been created with the use of voice recognition technology. It may contain inaccuracies: (e.g. misspellings, inaccurate syntax or word sense) that have escaped review. 2. The nurse practitioner, nursing staff and medical assistants are a major part of YOUR TREATMENT TEAM and will be handling your phone calls and inquiries, if any. Unless explicitly told otherwise at the time of your office visit, your study results and ensuing treatment plans will be discussed during your follow-up appointment. If you do not have a follow-up appointment and wish to discuss any issues, please set up an appointment. 3. It is my practice to not fill disability or any other insurance-related forms/documentation. All of the office notes, study results, and other pertinent documentation generated as part of your evaluation will be available to you and to your Primary Care Physician (PCP). Use of this material to complete such forms will be at the discretion of your PCP/referring physician. February 08, 2024 cc: Antonietta Alcaraz Phone: N/A Fax: Results of consultation to be transmitted via electronic medical record for those providers who practice within [facility] or with access to [employer] via MD Connect, or via letter. documented in this encounter [facility] 02-07-2024 Note HNO ID: [id number] Author: CORI HOPE R Ac Service: ? Author Type: Diplomat of Acupuncture Type: Progress Notes Filed: 02/07/2024 17:17 Note Text: Waldemar Hudson a 68 year old female presents to the acupuncture clinic on 02/07/24 for a follow up visit. Patient identity confirmed by name and : Yes This is the 12 visit for the patient this year It has been 1 week(s) since the last acupuncture treatment. Last treatment date: 01/31/2024 Initial Acupuncture treatment date: 11/12/2023 Chief Complaint: Primary lateral sclerosis, right knee pain, muscle spasm SUBJECTIVE Patient's x-ray on right knee showed degenerative change. She states her right knee pain has been not as frequent as bothering her at night compared to last week. She does experience muscle spasm in both legs mostly on the right leg however on the left anterior thigh to foot. She has been suffering from nighttime pain in right knee, which she describes as sharp sensation, attributing the pain to without being moved much leading do lack of blood flow. Patient experiences nighttime muscle spasm which involuntary moves her right leg, causing pain in the knee. We discussed trying Cryptolepsis as a natural herbal antibiotic approach to fight against Lyme. I provided patient with the product information. Hold off on taking Alfredo Gaytan until she finished baclofen. Cryptolepsis has been ordered. Patient noted her right knee pain was much improved for a few days following the previous acupuncture. Patient has been battling MS since 2012. Patient has history of Lyme disease, mold exposure and thyroid cancer. Thyroidism Trialed PT, dry needling, chiropractic, massage. PAIN ASSESSMENT: Currently experiencing pain Pain level (0 no pain at all to 10 being the worst): 4 OBJECTIVE: Physical Exam: Tenderness: knees and feet Pain with palpation: na ROM: limited ROM Orthopedic Tests: na Tightness: knees Divina/Trigger points: na Visual Inspection Discoloration: na Edema: no Gait/Ambulation: normal Ovalle: good Qi/Patient vitality: normal Alert Well-Groomed Normal Imaging reports Images on file See EPIC Images have been reviewed no TCM Tongue: NA TCM Pulse: thin and weak ASSESSMENT Patient presents with signs and symptoms consistent with the diagnosis. Patient would benefit from acupuncture therapy to address listed deficiencies and return to PLOF. Pt was educated on symptoms, prognosis, plan of care and activity modifications. Pt verbalized understanding and agreed to begin care. TCM Pattern: PLS due to Qi and blood deficiency. TCM Treatment Principle: Calm Ovalle. Promote smooth flow of Qi and blood. Open channel. Reduce pain. PLAN OF CARE Counseled patient on risks of acupuncture treatment including pain, infection, bleeding, and no relief of pain. The patient was positioned comfortably. There was no evidence of infection at the site of needle insertions. Acupuncture Treatment: Treatment/Needle Set 1, Supine: Points: Yin Gaytan, motor line 2 points bilaterally on the scalp, ear ovalle chaim, Jan Yarbrough, Brittni Ward, Da Austen, SP9, R: SJ3, SI3 15 minutes face to face with patient for set 1 Treatment/Needle Set 2, Supine: Points: R: GB34, Esquivel Cih, SP9, Si MA points 3, Xi Dinh, SP10, He Ding, B: GB41, ST43 10 minutes face to face with patient for set 2 Calcium were retained for 30 minutes # of needles inserted: 34 # of needles withdrawn: 34 Adjunct techniques used: TDP Infrared Heat Lamp- Applied to Rt. Hip and right knee Patient tolerated the procedure well. UNIVERSAL PROTOCOL / SAFETY CHECKLIST Procedure to be Performed: Acupuncture Sign In: A Moment of CARE was completed. Personnel directly involved with the procedure wore the appropriate PPE (Personal Protective Equipment). Patient/Surrogate Stated/Verified: PATIENT VERIFIED(optional for EMERGENT procedures): Patient name, Date of , Relevant allergies, and The intended procedure Time Out Communication: Intended patient and procedure match the source documents. Consent documented and matches the intended procedure. Sign Out: SIGN OUT (optional for EMERGENT procedures): All instruments, equipment, possible retained foreign bodies accounted for. Trenton Hanson Provider Name: Trenton Hanson 25 Total minutes face to face time spent with patient Acupuncture and [place] herbal therapy are not a substitute for conventional medical diagnosis and treatment. Patient agrees that either: 1. A diagnostic exam has been performed by a physician or chiropractor within the last six months regarding the condition for which they are seeking acupuncture treatment. or 2. If no diagnostic exam by a physician or chiropractor has been done within the last six months regarding the condition for which patient is seeking treatment, the Processing Analyst, per [place] Law, recommends that this diagnostic exam be perf (more content not included)... [facility] 02-07-2024 History of Present illness Narrative Waldemar Hudson a 68 year old female presents to the acupuncture clinic on 02/07/24 for a follow up visit. Patient identity confirmed by name and : Yes This is the 12 visit for the patient this year It has been 1 week(s) since the last acupuncture treatment. Last treatment date: 01/31/2024 Initial Acupuncture treatment date: 11/12/2023 Chief Complaint: Primary lateral sclerosis, right knee pain, muscle spasm SUBJECTIVE Patient's x-ray on right knee showed degenerative change. She states her right knee pain has been not as frequent as bothering her at night compared to last week. She does experience muscle spasm in both legs mostly on the right leg however on the left anterior thigh to foot. She has been suffering from nighttime pain in right knee, which she describes as sharp sensation, attributing the pain to without being moved much leading do lack of blood flow. Patient experiences nighttime muscle spasm which involuntary moves her right leg, causing pain in the knee. We discussed trying Cryptolepsis as a natural herbal antibiotic approach to fight against Lyme. I provided patient with the product information. Hold off on taking Alfredo Gaytan until she finished baclofen. Cryptolepsis has been ordered. Patient noted her right knee pain was much improved for a few days following the previous acupuncture. Patient has been battling MS since 2012. Patient has history of Lyme disease, mold exposure and thyroid cancer. Thyroidism Trialed PT, dry needling, chiropractic, massage. PAIN ASSESSMENT: Currently experiencing pain Pain level (0 no pain at all to 10 being the worst): 4 OBJECTIVE: Physical Exam: Tenderness: knees and feet Pain with palpation: na ROM: limited ROM Orthopedic Tests: na Tightness: knees Divina/Trigger points: na Visual Inspection Discoloration: na Edema: no Gait/Ambulation: normal Ovalle: good Qi/Patient vitality: normal Alert Well-Groomed Normal Imaging reports Images on file See EPIC Images have been reviewed no TCM Tongue: NA TCM Pulse: thin and weak ASSESSMENT Patient presents with signs and symptoms consistent with the diagnosis. Patient would benefit from acupuncture therapy to address listed deficiencies and return to PLOF. Pt was educated on symptoms, prognosis, plan of care and activity modifications. Pt verbalized understanding and agreed to begin care. TCM Pattern: PLS due to Qi and blood deficiency. TCM Treatment Principle: Calm Ovalle. Promote smooth flow of Qi and blood. Open channel. Reduce pain. PLAN OF CARE Counseled patient on risks of acupuncture treatment including pain, infection, bleeding, and no relief of pain. The patient was positioned comfortably. There was no evidence of infection at the site of needle insertions. Acupuncture Treatment: Treatment/Needle Set 1, Supine: Points: Yin Gaytan, motor line 2 points bilaterally on the scalp, ear ovalle men, Jan Yarbrough, Brittni Ward, Farhan Page, SP9, R: SJ3, SI3 15 minutes face to face with patient for set 1 Treatment/Needle Set 2, Supine: Points: R: GB34, Esquivel Chi, SP9, Si MA points 3, Xi Dinh, SP10, He Ding, B: GB41, ST43 10 minutes face to face with patient for set 2 Calcium were retained for 30 minutes # of needles inserted: 34 # of needles withdrawn: 34 Adjunct techniques used: TDP Infrared Heat Lamp- Applied to Rt. Hip and right knee Patient tolerated the procedure well. UNIVERSAL PROTOCOL / SAFETY CHECKLIST Procedure to be Performed: Acupuncture Sign In: A Moment of CARE was completed. Personnel directly involved with the procedure wore the appropriate PPE (Personal Protective Equipment). Patient/Surrogate Stated/Verified: PATIENT VERIFIED(optional for EMERGENT procedures): Patient name, Date of , Relevant allergies, and The intended procedure Time Out Communication: Intended patient and procedure match the source documents. Consent documented and matches the intended procedure. Sign Out: SIGN OUT (optional for EMERGENT procedures): All instruments, equipment, possible retained foreign bodies accounted for. Trenton Hanson Provider Name: Trenton Hanson 25 Total minutes face to face time spent with patient Acupuncture and [place] herbal therapy are not a substitute for conventional medical diagnosis and treatment. Patient agrees that either: 1. A diagnostic exam has been performed by a physician or chiropractor within the last six months regarding the condition for which they are seeking acupuncture treatment. or 2. If no diagnostic exam by a physician or chiropractor has been done within the last six months regarding the condition for which patient is seeking treatment, the Processing Analyst, per [place] Law, recommends that this diagnostic exam be performed. documented in this encounter [facility] 02-05-2024 Note HNO ID: [id number] Author: DAJA GOMEZ PTA Service: ? Author Type: Clarity Specialists Type: Progress Notes Filed: 02/05/2024 16:42 Note Text: Episode Visit Count: 31 Therapist That Will Accept/Oversee The Plan Of Care: Nathan Madrigal PT, ANABELLE Start of Care Date: 10/03/23 Onset Date: 12/31/23 Plan of Care Certification Date: 01/29/24 Next Certification Due Date: 03/21/24 Patient Identified by Name and Date of : Yes REHABILITATION AND SPORTS THERAPY PHYSICAL THERAPY TREATMENT NOTE ASSESSMENT: Waldemar Hudson tolerated the session with fatigue and decreased symptoms. She demonstrated improvements in tolerance to add resisted rowing, bilateral extension, resisted bilateral ER, and theraball heel rolls without increased symptoms. The patient will continue to benefit from ongoing skilled physical therapy to progress toward set goals. PLAN FOR NEXT VISIT: Continue with progression of bilateral LE passive stretching and LE/core strengthening exercises. SUBJECTIVE: Patient reported that the Baclofen is making her sleepy and is making her legs feel weaker. She reported that she feels like it is also making her speech more difficult to understand. She does not feel like it has assisted with her night spasms at all yet and she continues to get up at night multiple times due to the same. She reported that she did have an xray of her knee after last session. Pain: Pain Pain Level: 3 Pain Location: Knee - Right Post Treatment Pain Post Treatment Pain Level: Better OBJECTIVE MEASURES WITH LEVEL OF FUNCTION: No objective measures taken this date. TREATMENT: Therapeutic Exercise: 1: Seated forward stretch over yellow theraball with bilateral UE's and ball on therapist's lap in front of patient x 10 reps forward and then 10 reps each in scaption for stretching 2: Seated marching with band 2 x 15 reps w/ pink band 3: Seated resisted adduction x 30 reps 4: Seated resisted abduction x 30 reps w/ pink 5: Supine bridging 2 x 15 reps over yellow ball 6: Supine bent leg marching 2 x 15 reps alternating with LE rested on yellow ball 7: SAQ 2 x 15 reps over yellow ball each LE with assist 8: Supine lower trunk rotation with assist with bilateral LE rested on yellow therapy ball x 15 each direction 11: Seated LAQ 2 x 15 reps each LE 12: Seated resisted knee flexion 2 x 15 reps each LE 13: Seated resisted rowing 2 x 15 reps w/ pink band 14: Seated resisted bilateral extension 2 x 15 reps w/ pink band 15: Seated resisted bilateral ER 2 x 10 reps w/ pink band 16: Supine bilateral knee flexion rolling on large yellow theraball 2 x 10 reps Skilled Intervention: Patient was educated in proper exercise technique and purpose for exercises. Skilled judgment was used in selection of appropriate interventions. Manual Therapy: 1: Passive stretching to each LE for hips flexion, abduction, hip ER and IR in flexion and hamstrings stretching, knees flexion/extension and bilateral calf stretches x 15 reps each. Skilled Intervention: Manual skills to improve joint mobility, ROM, and decrease pain. Utilized anatomy knowledge of the therapist, and assessment of patient's response to intervention. Neuromuscular Re-Education: 2: Seated on side of plinth and lateral stretch over large yellow theraball x 10 reps each side and thenforward stretch onto large ball x 10 reps Skilled Intervention: Skilled judgment used to assess appropriate program for balance and coordination activity. Spouse standing behind patient for safety Billing Therapeutic Exercise Treatment Minutes: 30 Manual TherapyTreatment Minutes: 15 Neuromuscular Re-Education Treatment Minutes: 5 Skilled Treatment Time Minutes (timed and untimed codes): 50 Total Session Time (minutes): 50 Session Start Time : 1530 Session Stop Time : 1620 Daja Gomez PTA [facility] 02-05-2024 History of Present illness Narrative Episode Visit Count: 31 Therapist That Will Accept/Oversee The Plan Of Care: Nathan Madrigal PT, ANABELLE Start of Care Date: 10/03/23 Onset Date: 12/31/23 Plan of Care Certification Date: 01/29/24 Next Certification Due Date: 03/21/24 Patient Identified by Name and Date of : Yes REHABILITATION AND SPORTS THERAPY PHYSICAL THERAPY TREATMENT NOTE ASSESSMENT: Waldemar Hudson tolerated the session with fatigue and decreased symptoms. She demonstrated improvements in tolerance to add resisted rowing, bilateral extension, resisted bilateral ER, and theraball heel rolls without increased symptoms. The patient will continue to benefit from ongoing skilled physical therapy to progress toward set goals. PLAN FOR NEXT VISIT: Continue with progression of bilateral LE passive stretching and LE/core strengthening exercises. SUBJECTIVE: Patient reported that the Baclofen is making her sleepy and is making her legs feel weaker. She reported that she feels like it is also making her speech more difficult to understand. She does not feel like it has assisted with her night spasms at all yet and she continues to get up at night multiple times due to the same. She reported that she did have an xray of her knee after last session. Pain: Pain Pain Level: 3 Pain Location: Knee - Right Post Treatment Pain Post Treatment Pain Level: Better OBJECTIVE MEASURES WITH LEVEL OF FUNCTION: No objective measures taken this date. TREATMENT: Therapeutic Exercise: 1: Seated forward stretch over yellow theraball with bilateral UE's and ball on therapist's lap in front of patient x 10 reps forward and then 10 reps each in scaption for stretching 2: Seated marching with band 2 x 15 reps w/ pink band 3: Seated resisted adduction x 30 reps 4: Seated resisted abduction x 30 reps w/ pink 5: Supine bridging 2 x 15 reps over yellow ball 6: Supine bent leg marching 2 x 15 reps alternating with LE rested on yellow ball 7: SAQ 2 x 15 reps over yellow ball each LE with assist 8: Supine lower trunk rotation with assist with bilateral LE rested on yellow therapy ball x 15 each direction 11: Seated LAQ 2 x 15 reps each LE 12: Seated resisted knee flexion 2 x 15 reps each LE 13: Seated resisted rowing 2 x 15 reps w/ pink band 14: Seated resisted bilateral extension 2 x 15 reps w/ pink band 15: Seated resisted bilateral ER 2 x 10 reps w/ pink band 16: Supine bilateral knee flexion rolling on large yellow theraball 2 x 10 reps Skilled Intervention: Patient was educated in proper exercise technique and purpose for exercises. Skilled judgment was used in selection of appropriate interventions. Manual Therapy: 1: Passive stretching to each LE for hips flexion, abduction, hip ER and IR in flexion and hamstrings stretching, knees flexion/extension and bilateral calf stretches x 15 reps each. Skilled Intervention: Manual skills to improve joint mobility, ROM, and decrease pain. Utilized anatomy knowledge of the therapist, and assessment of patient's response to intervention. Neuromuscular Re-Education: 2: Seated on side of plinth and lateral stretch over large yellow theraball x 10 reps each side and thenforward stretch onto large ball x 10 reps Skilled Intervention: Skilled judgment used to assess appropriate program for balance and coordination activity. Spouse standing behind patient for safety Billing Therapeutic Exercise Treatment Minutes: 30 Manual TherapyTreatment Minutes: 15 Neuromuscular Re-Education Treatment Minutes: 5 Skilled Treatment Time Minutes (timed and untimed codes): 50 Total Session Time (minutes): 50 Session Start Time : 1530 Session Stop Time : 1620 Daja Gomez PTA documented in this encounter [facility] 02-01-2024 History of Present illness Narrative Radiology Service Progress Note PATIENT NAME: Waldemar Hudson DATE OF SERVICE: February 01, 2024 TIME: 2:53 PM PATIENT IDENTITY VERIFICATION COMPLETED USING TWO (2) IDENTIFIERS: Name and Date of confirmed by patient verbally. FALL SCREENING: Has the patient had 2 falls in the last year or 1 fall with injury or currently using an Ambulatory Assistive Device (Walker, Cane, Wheelchair, Crutches, etc.)? Yes, Patient High Risk for Falls What interventions were put in place to prevent falls during this visit? Offered Assistance with Transfers/Clothing PATIENT GENDER DATA: Female. status: : No status: NO. PATIENT RELEVANT IMPLANT DATA REVIEWED: Not Applicable PATIENT PRESENTS WITH AN IMPLANTABLE OR ATTACHED ORACLE DEVELOPER: No RADIOLOGY DEPARTMENT: General X-ray: Exam(s) Completed: Lower Extremity X-Ray(s): Knee, AP / LAT Right PERIPHERAL IV DATA: Not applicable SIGNED BY: DENISSE Rodriguez) February 01, 2024 2:53 PM documented in this encounter [facility] 02-01-2024 Note HNO ID: [id number] Author: MUNIR XIONG RT(R) Service: ? Author Type: Technologist Type: Progress Notes Filed: 02/01/2024 14:54 Note Text: Radiology Service Progress Note PATIENT NAME: Wadlemar Hudson DATE OF SERVICE: February 01, 2024 TIME: 2:53 PM PATIENT IDENTITY VERIFICATION COMPLETED USING TWO (2) IDENTIFIERS: Name and Date of confirmed by patient verbally. FALL SCREENING: Has the patient had 2 falls in the last year or 1 fall with injury or currently using an Ambulatory Assistive Device (Walker, Cane, Wheelchair, Crutches, etc.)? Yes, Patient High Risk for Falls What interventions were put in place to prevent falls during this visit? Offered Assistance with Transfers/Clothing PATIENT GENDER DATA: Female. status: : No status: NO. PATIENT RELEVANT IMPLANT DATA REVIEWED: Not Applicable PATIENT PRESENTS WITH AN IMPLANTABLE OR ATTACHED ORACLE DEVELOPER: No RADIOLOGY DEPARTMENT: General X-ray: Exam(s) Completed: Lower Extremity X-Ray(s): Knee, AP / LAT Right PERIPHERAL IV DATA: Not applicable SIGNED BY: RT Jennifer(R) February 01, 2024 2:53 PM [facility] 02-01-2024 Note HNO ID: [id number] Author: DAJA GOMEZ PTA Service: ? Author Type: Clarity Specialists Type: Progress Notes Filed: 02/01/2024 16:45 Note Text: Episode Visit Count: 30 Therapist That Will Accept/Oversee The Plan Of Care: Nathan Madrigal PT, MBA Start of Care Date: 10/03/23 Onset Date: 12/31/23 Plan of Care Certification Date: 01/29/24 Next Certification Due Date: 03/21/24 Patient Identified by Name and Date of : Yes REHABILITATION AND SPORTS THERAPY PHYSICAL THERAPY TREATMENT NOTE ASSESSMENT: Waldemar Hudson tolerated the session with no issues. She demonstrated continued knee tightness bilaterally. Patient doing well with driving the [employer] power chair. The patient will continue to benefit from ongoing skilled physical therapy to progress toward set goals. PLAN FOR NEXT VISIT: Continue with progression of bilateral LE passive stretching and LE/core strengthening exercises. SUBJECTIVE: Patient reported that she had accupuncture treatment. She was started on oral Baclofen 3x day for rigidity. She will take a half dose for 2 weeks and then increase to full dose at that time. Pain: Pain Pain Level: 3 Pain Location: Knee - Right Post Treatment Pain Post Treatment Pain Level: No Change OBJECTIVE MEASURES WITH LEVEL OF FUNCTION: No objective measures taken this date. TREATMENT: Therapeutic Exercise: 1: Seated forward stretch over yellow theraball with bilateral UE's and ball on therapist's lap in front of patient x 10 reps forward and then 10 reps each in scaption for stretching 2: Seated marching with band 2 x 15 reps w/ pink band 3: Seated resisted adduction x 30 reps 4: Seated resisted abduction x 30 reps w/ pink 5: Supine bridging 2 x 15 reps over yellow ball 6: Supine bent leg marching 2 x 15 reps alternating with LE rested on yellow ball 7: SAQ 2 x 15 reps over yellow ball each LE with assist 8: Supine lower trunk rotation with assist with bilateral LE rested on yellow therapy ball x 15 each direction 11: Seated LAQ 2 x 15 reps each LE Skilled Intervention: Patient was educated in proper exercise technique and purpose for exercises. Skilled judgment was used in selection of appropriate interventions. Manual Therapy: Skilled Intervention: Manual skills to improve joint mobility, ROM, and decrease pain. Utilized anatomy knowledge of the therapist, and assessment of patient's response to intervention. Billing Therapeutic Exercise Treatment Minutes: 30 Manual TherapyTreatment Minutes: 20 Skilled Treatment Time Minutes (timed and untimed codes): 50 Total Session Time (minutes): 55 Session Start Time : 1315 Session Stop Time : 1410 Daja Gomez [facility] 02-01-2024 History of Present illness Narrative Episode Visit Count: 30 Therapist That Will Accept/Oversee The Plan Of Care: Nathan Madrigal PT, MBA Start of Care Date: 10/03/23 Onset Date: 12/31/23 Plan of Care Certification Date: 01/29/24 Next Certification Due Date: 03/21/24 Patient Identified by Name and Date of : Yes REHABILITATION AND SPORTS THERAPY PHYSICAL THERAPY TREATMENT NOTE ASSESSMENT: Waldemar Hudson tolerated the session with no issues. She demonstrated continued knee tightness bilaterally. Patient doing well with driving the [employer] chair. The patient will continue to benefit from ongoing skilled physical therapy to progress toward set goals. PLAN FOR NEXT VISIT: Continue with progression of bilateral LE passive stretching and LE/core strengthening exercises. SUBJECTIVE: Patient reported that she had accupuncture treatment. She was started on oral Baclofen 3x day for rigidity. She will take a half dose for 2 weeks and then increase to full dose at that time. Pain: Pain Pain Level: 3 Pain Location: Knee - Right Post Treatment Pain Post Treatment Pain Level: No Change OBJECTIVE MEASURES WITH LEVEL OF FUNCTION: No objective measures taken this date. TREATMENT: Therapeutic Exercise: 1: Seated forward stretch over yellow theraball with bilateral UE's and ball on therapist's lap in front of patient x 10 reps forward and then 10 reps each in scaption for stretching 2: Seated marching with band 2 x 15 reps w/ pink band 3: Seated resisted adduction x 30 reps 4: Seated resisted abduction x 30 reps w/ pink 5: Supine bridging 2 x 15 reps over yellow ball 6: Supine bent leg marching 2 x 15 reps alternating with LE rested on yellow ball 7: SAQ 2 x 15 reps over yellow ball each LE with assist 8: Supine lower trunk rotation with assist with bilateral LE rested on yellow therapy ball x 15 each direction 11: Seated LAQ 2 x 15 reps each LE Skilled Intervention: Patient was educated in proper exercise technique and purpose for exercises. Skilled judgment was used in selection of appropriate interventions. Manual Therapy: Skilled Intervention: Manual skills to improve joint mobility, ROM, and decrease pain. Utilized anatomy knowledge of the therapist, and assessment of patient's response to intervention. Billing Therapeutic Exercise Treatment Minutes: 30 Manual TherapyTreatment Minutes: 20 Skilled Treatment Time Minutes (timed and untimed codes): 50 Total Session Time (minutes): 55 Session Start Time : 1315 Session Stop Time : 1410 Daja Gomez PTA documented in this encounter [facility] 01-31-2024 History of Present illness Narrative Waldemar Hudson a 68 year old female presents to the acupuncture clinic on 01/31/24 for a follow up visit. Patient identity confirmed by name and : Yes This is the 11 visit for the patient this year It has been 1 week(s) since the last acupuncture treatment. Last treatment date: 01/24/2024 Initial Acupuncture treatment date: 11/12/2023 Chief Complaint: Primary lateral sclerosis, right knee pain, muscle spasm SUBJECTIVE Patient returns without significant change in right knee pain condition. At this point, patient resumed her antibiotic routine so, we need to hold off on doing herbal supplement. She has been suffering from nighttime pain in right knee, which she describes as sharp sensation, attributing the pain to without being moved much leading do lack of blood flow. Patient experiences nighttime muscle spasm which involuntary moves her right leg, causing pain in the knee. We discussed trying Cryptolepsis as a natural herbal antibiotic approach to fight against Lyme. I provided patient with the product information. Hold off on taking Alfredo Ade Ovalleg Gaytan until she finished baclofen. Cryptolepsis has been ordered. Patient noted her right knee pain was much improved for a few days following the previous acupuncture. Patient has been battling MS since 2012. Patient has history of Lyme disease, mold exposure and thyroid cancer. Thyroidism Trialed PT, dry needling, chiropractic, massage. PAIN ASSESSMENT: Currently experiencing pain Pain level (0 no pain at all to 10 being the worst): 4 OBJECTIVE: Physical Exam: Tenderness: knees and feet Pain with palpation: na ROM: limited ROM Orthopedic Tests: na Tightness: knees Divina/Trigger points: na Visual Inspection Discoloration: na Edema: no Gait/Ambulation: normal Ovalle: good Qi/Patient vitality: normal Alert Well-Groomed Normal Imaging reports Images on file See EPIC Images have been reviewed no TCM Tongue: NA TCM Pulse: thin and weak ASSESSMENT Patient presents with signs and symptoms consistent with the diagnosis. Patient would benefit from acupuncture therapy to address listed deficiencies and return to PLOF. Pt was educated on symptoms, prognosis, plan of care and activity modifications. Pt verbalized understanding and agreed to begin care. TCM Pattern: PLS due to Qi and blood deficiency. TCM Treatment Principle: Calm Ovalle. Promote smooth flow of Qi and blood. Open channel. Reduce pain. PLAN OF CARE Counseled patient on risks of acupuncture treatment including pain, infection, bleeding, and no relief of pain. The patient was positioned comfortably. There was no evidence of infection at the site of needle insertions. Acupuncture Treatment: Treatment/Needle Set 1, Supine: Points: Yin Gaytan, motor line 2 points bilaterally on the scalp, ear ovalle men, Jan Zenon, Ling Gu, Da Austen, SP9, R: SJ3, SI3 15 minutes face to face with patient for set 1 Treatment/Needle Set 2, Supine: Points: R: GB34, Esquivel Chi, SP9, Si MA points 3, Xi Dinh, SP10, He Ding, B: GB41, ST43 10 minutes face to face with patient for set 2 Calcium were retained for 30 minutes # of needles inserted: 34 # of needles withdrawn: 34 Adjunct techniques used: TDP Infrared Heat Lamp- Applied to Rt. Hip and right knee Patient tolerated the procedure well. UNIVERSAL PROTOCOL / SAFETY CHECKLIST Procedure to be Performed: Acupuncture Sign In: A Moment of CARE was completed. Personnel directly involved with the procedure wore the appropriate PPE (Personal Protective Equipment). Patient/Surrogate Stated/Verified: PATIENT VERIFIED(optional for EMERGENT procedures): Patient name, Date of , Relevant allergies, and The intended procedure Time Out Communication: Intended patient and procedure match the source documents. Consent documented and matches the intended procedure. Sign Out: SIGN OUT (optional for EMERGENT procedures): All instruments, equipment, possible retained foreign bodies accounted for. Trenton Hanson Provider Name: Trenton Hanson 25 Total minutes face to face time spent with patient Acupuncture and [place] herbal therapy are not a substitute for conventional medical diagnosis and treatment. Patient agrees that either: 1. A diagnostic exam has been performed by a physician or chiropractor within the last six months regarding the condition for which they are seeking acupuncture treatment. or 2. If no diagnostic exam by a physician or chiropractor has been done within the last six months regarding the condition for which patient is seeking treatment, the Processing Analyst, per [place] Law, recommends that this diagnostic exam be performed. documented in this encounter [facility] 01-31-2024 Note HNO ID: [id number] Author: CORI HOPE R Ac Service: ? Author Type: Diplomat of Acupuncture Type: Progress Notes Filed: 01/31/2024 17:26 Note Text: Waldemar Hudson a 68 year old female presents to the acupuncture clinic on 01/31/24 for a follow up visit. Patient identity confirmed by name and : Yes This is the 11 visit for the patient this year It has been 1 week(s) since the last acupuncture treatment. Last treatment date: 01/24/2024 Initial Acupuncture treatment date: 11/12/2023 Chief Complaint: Primary lateral sclerosis, right knee pain, muscle spasm SUBJECTIVE Patient returns without significant change in right knee pain condition. At this point, patient resumed her antibiotic routine so, we need to hold off on doing herbal supplement. She has been suffering from nighttime pain in right knee, which she describes as sharp sensation, attributing the pain to without being moved much leading do lack of blood flow. Patient experiences nighttime muscle spasm which involuntary moves her right leg, causing pain in the knee. We discussed trying Cryptolepsis as a natural herbal antibiotic approach to fight against Lyme. I provided patient with the product information. Hold off on taking Alfredo Gaytan until she finished baclofen. Cryptolepsis has been ordered. Patient noted her right knee pain was much improved for a few days following the previous acupuncture. Patient has been battling MS since 2012. Patient has history of Lyme disease, mold exposure and thyroid cancer. Thyroidism Trialed PT, dry needling, chiropractic, massage. PAIN ASSESSMENT: Currently experiencing pain Pain level (0 no pain at all to 10 being the worst): 4 OBJECTIVE: Physical Exam: Tenderness: knees and feet Pain with palpation: na ROM: limited ROM Orthopedic Tests: na Tightness: knees Divina/Trigger points: na Visual Inspection Discoloration: na Edema: no Gait/Ambulation: normal Ovalle: good Qi/Patient vitality: normal Alert Well-Groomed Normal Imaging reports Images on file See EPIC Images have been reviewed no TCM Tongue: NA TCM Pulse: thin and weak ASSESSMENT Patient presents with signs and symptoms consistent with the diagnosis. Patient would benefit from acupuncture therapy to address listed deficiencies and return to PLOF. Pt was educated on symptoms, prognosis, plan of care and activity modifications. Pt verbalized understanding and agreed to begin care. TCM Pattern: PLS due to Qi and blood deficiency. TCM Treatment Principle: Calm Ovalle. Promote smooth flow of Qi and blood. Open channel. Reduce pain. PLAN OF CARE Counseled patient on risks of acupuncture treatment including pain, infection, bleeding, and no relief of pain. The patient was positioned comfortably. There was no evidence of infection at the site of needle insertions. Acupuncture Treatment: Treatment/Needle Set 1, Supine: Points: Yin Gaytan, motor line 2 points bilaterally on the scalp, ear ovalle men, Jan Zenon, Ling Gu, Da Austen, SP9, R: SJ3, SI3 15 minutes face to face with patient for set 1 Treatment/Needle Set 2, Supine: Points: R: GB34, Esquivel Chi, SP9, Si MA points 3, Xi Dinh, SP10, He Ding, B: GB41, ST43 10 minutes face to face with patient for set 2 Calcium were retained for 30 minutes # of needles inserted: 34 # of needles withdrawn: 34 Adjunct techniques used: TDP Infrared Heat Lamp- Applied to Rt. Hip and right knee Patient tolerated the procedure well. UNIVERSAL PROTOCOL / SAFETY CHECKLIST Procedure to be Performed: Acupuncture Sign In: A Moment of CARE was completed. Personnel directly involved with the procedure wore the appropriate PPE (Personal Protective Equipment). Patient/Surrogate Stated/Verified: PATIENT VERIFIED(optional for EMERGENT procedures): Patient name, Date of , Relevant allergies, and The intended procedure Time Out Communication: Intended patient and procedure match the source documents. Consent documented and matches the intended procedure. Sign Out: SIGN OUT (optional for EMERGENT procedures): All instruments, equipment, possible retained foreign bodies accounted for. Trenton Hanson Provider Name: Trenton Hanson 25 Total minutes face to face time spent with patient Acupuncture and [place] herbal therapy are not a substitute for conventional medical diagnosis and treatment. Patient agrees that either: 1. A diagnostic exam has been performed by a physician or chiropractor within the last six months regarding the condition for which they are seeking acupuncture treatment. or 2. If no diagnostic exam by a physician or chiropractor has been done within the last six months regarding the condition for which patient is seeking treatment, the Processing Analyst, per [place] Law, recommends that this diagnostic exam be performed. [facility] 01-30-2024 Instructions Lia Hope APRN.PRINCE - 01/30/2024 2:22 PM EDT Continue working with speech therapy, and physical therapy. Referral placed for ENT to see if you would be a candidate for botox. We will start the baclofen 5mg for 14 days then increase to 10mg. documented in this encounter [facility] 01-30-2024 Note HNO ID: [id number] Author: LIA HOPE APRN.PRINCE Service: ? Author Type: Nurse Practitioner Type: Progress Notes Filed: 01/31/2024 14:13 Note Text: January 30, 2024 Reason for visit: Patient presents with: New Patient: Spasticity legs, stomach and hands Previous Visit: No previous visits. HPI (brief) Waldemar Hudson is a 68 year old left female. She arrives today for spasticity evaluation. PMHx of PLS. Notes onset of symptoms started in 2011. Previously followed by [facility] neurologist. Recently started following with the ALS Clinic at [facility]. Currently following with Dr. Alcaraz. She was referred over by neurology for spasticity evaluation. Subjective: Patient presents with: New Patient: Spasticity legs, stomach and hands Notes symptoms started back in . She notes the weakness started in the left leg then the right. Currently she is weak in all extremities and has difficulty with speech. Denies any difficulty with breathing. She currently follows with ALS/PLS clinic at the [facility]. Currently gets PT at [facility] and working on getting back into speech therapy. Was prescribed baclofen recently at her last neurology appt but states the medication never came so she has not tried anything at this point for the spasticity. She also follows with integrative medicine for acupuncture. She was evaluated and given a power wheelchair about two weeks ago which has helped with getting some independence back. She will still use walker at times with assistance. Neuro: -Other: PLS Function: -Self care: Does need assistance -Mobility: uses power wheelchair. -Gait/stairs: -Falls: Thinks she has had one fall within the past 6 months while trying to go to the bathroom. Weakness: All extremity weakness. Tone/Deformity: Increased tone in all extremities. Pain: notes pain due to the spasms in bilateral legs and abdomen. Notes she has right knee pain as well. Takes THC/CBD gummies to help with the pain. Neuropathic: Occasionally will get stabbing pain in left foot. Balance: feels she has no balance Hearing/Vision: Denies any hearing changes, recently got cataract surgery and vision has gotten better. Cognition: Alert and oriented x4. Denies any memory issues. Sleep: Inturrupted sleep due to right knee and right hip pain. She has to get up multiple times through out the night to reposition and sit up to get the pain to subside. Skin: Denies any pressure injuries or open wounds. Bowel: Continent. Bladder: urge incontinence has gotten better. Respiratory/cough: Denies any SOB at rest, notes she will get SOB with exertion. Also will get spasms occasionally in her chest. Assistive devices - will use a pivot board for transfers -Wheelchair Recent labs/Imaging related to complaint: MRI BRAIN WO IVCON 10/23/22 FINDINGS: No abnormal areas of diffusion restriction to suggest acute infarct. No acute intracranial hemorrhage or extra-axial fluid collection. No mass, mass-effect, or midline shift. No abnormal foci of susceptibility artifact to suggest hemorrhage. Medications Reviewed rifAMPin (RIFADIN) 300 mg capsule Take 300 mg by mouth once daily. levothyroxine (SYNTHROID) 112 mcg tablet NUEDEXTA 20-10 mg capsule Take 1 capsule by mouth two times a day. (Patient taking differently: Take 1 capsule by mouth two times a day. Taking three times a day.) TherBiotic Complete 120 Ct[address] (Klaire/Prothera) Take 1 capsule by mouth once daily. Fish Oil-[place]-3 Fatty Acids 300-1,000 mg cap Take by mouth. Meriva-SR (Monae) decrease inflammation/pain/gut healing Take 1-2 capsules two times daily Magnesium 200 mg tab Take 1 tablet by mouth once daily. baclofen 10 mg tablet Take 0.5 tablets by mouth three times a day for 14 days, THEN 1 tablet three times a day. nystatin (MYCOSTATIN, NILSTAT) 500,000 unit tab Take 2 tablets by mouth three times a day with meals. (Patient taking differently: Take 2 tablets by mouth three times a day with meals. PRN) itraconazole 0.5 % (CPD) 1-2 sprays to each nostril twice daily OARRS reviewed to confirm/clarify any controlled medications Allergies Reviewed PAST MEDICAL HISTORY: ACTIVE PROBLEM LIST Personal History of Malignant Neoplasm of Thyroid Esophageal Reflux Closed Fracture of Metatarsal Bone(s) Malignant Neoplasm of Thyroid Gland (Hcc) Calculus of Gallbladder With Other Cholecystitis, Without Mention of Obstruction GASTRITIS ANTRAL( W/O Hemorrhage) Sprain and Strain of Unspecified Site of Shoulder and Upper Arm Closed Fracture of One Or More Phalanges of Foot Dysmetabolic Syndrome X Unspecified Site of Sprain and Strain Congenital Pes Planus Skin Lesion Other Musculoskeletal Symptoms Referable to Limbs(729.89) Special Screening for Malignant Neoplasms, Colon Dysphagia, Unspecified(787.20) Motor Neuron Disease (Hcc) Gerd Without Esophagitis History of Thyroid Cancer Hypothyroidism Foot Cram (more content not included)... [facility] 01-30-2024 History of Present illness Narrative January 30, 2024 Reason for visit: Patient presents with: New Patient: Spasticity legs, stomach and hands Previous Visit: No previous visits. HPI (brief) Waldemar Hudson is a 68 year old left female. She arrives today for spasticity evaluation. PMHx of PLS. Notes onset of symptoms started in 2011. Previously followed by [facility] neurologist. Recently started following with the ALS Clinic at [facility]. Currently following with Dr. Alcaraz. She was referred over by neurology for spasticity evaluation. Subjective: Patient presents with: New Patient: Spasticity legs, stomach and hands Notes symptoms started back in . She notes the weakness started in the left leg then the right. Currently she is weak in all extremities and has difficulty with speech. Denies any difficulty with breathing. She currently follows with ALS/PLS clinic at the [facility]. Currently gets PT at [facility] and working on getting back into speech therapy. Was prescribed baclofen recently at her last neurology appt but states the medication never came so she has not tried anything at this point for the spasticity. She also follows with integrative medicine for acupuncture. She was evaluated and given a power wheelchair about two weeks ago which has helped with getting some independence back. She will still use walker at times with assistance. Neuro: -Other: PLS Function: -Self care: Does need assistance -Mobility: uses power wheelchair. -Gait/stairs: -Falls: Thinks she has had one fall within the past 6 months while trying to go to the bathroom. Weakness: All extremity weakness. Tone/Deformity: Increased tone in all extremities. Pain: notes pain due to the spasms in bilateral legs and abdomen. Notes she has right knee pain as well. Takes THC/CBD gummies to help with the pain. Neuropathic: Occasionally will get stabbing pain in left foot. Balance: feels she has no balance Hearing/Vision: Denies any hearing changes, recently got cataract surgery and vision has gotten better. Cognition: Alert and oriented x4. Denies any memory issues. Sleep: Inturrupted sleep due to right knee and right hip pain. She has to get up multiple times through out the night to reposition and sit up to get the pain to subside. Skin: Denies any pressure injuries or open wounds. Bowel: Continent. Bladder: urge incontinence has gotten better. Respiratory/cough: Denies any SOB at rest, notes she will get SOB with exertion. Also will get spasms occasionally in her chest. Assistive devices - will use a pivot board for transfers -Wheelchair Recent labs/Imaging related to complaint: MRI BRAIN WO IVCON 10/23/22 FINDINGS: No abnormal areas of diffusion restriction to suggest acute infarct. No acute intracranial hemorrhage or extra-axial fluid collection. No mass, mass-effect, or midline shift. No abnormal foci of susceptibility artifact to suggest hemorrhage. Medications Reviewed rifAMPin (RIFADIN) 300 mg capsule Take 300 mg by mouth once daily. levothyroxine (SYNTHROID) 112 mcg tablet NUEDEXTA 20-10 mg capsule Take 1 capsule by mouth two times a day. (Patient taking differently: Take 1 capsule by mouth two times a day. Taking three times a day.) TherBiotic Complete 120 Ct[address] (Klaire/Prothera) Take 1 capsule by mouth once daily. Fish Oil-[place]-3 Fatty Acids 300-1,000 mg cap Take by mouth. Meriva-SR (Monae) decrease inflammation/pain/gut healing Take 1-2 capsules two times daily Magnesium 200 mg tab Take 1 tablet by mouth once daily. baclofen 10 mg tablet Take 0.5 tablets by mouth three times a day for 14 days, THEN 1 tablet three times a day. nystatin (MYCOSTATIN, NILSTAT) 500,000 unit tab Take 2 tablets by mouth three times a day with meals. (Patient taking differently: Take 2 tablets by mouth three times a day with meals. PRN) itraconazole 0.5 % (CPD) 1-2 sprays to each nostril twice daily OARRS reviewed to confirm/clarify any controlled medications Allergies Reviewed PAST MEDICAL HISTORY: ACTIVE PROBLEM LIST Personal History of Malignant Neoplasm of Thyroid Esophageal Reflux Closed Fracture of Metatarsal Bone(s) Malignant Neoplasm of Thyroid Gland (Hcc) Calculus of Gallbladder With Other Cholecystitis, Without Mention of Obstruction GASTRITIS ANTRAL( W/O Hemorrhage) Sprain and Strain of Unspecified Site of Shoulder and Upper Arm Closed Fracture of One Or More Phalanges of Foot Dysmetabolic Syndrome X Unspecified Site of Sprain and Strain Congenital Pes Planus Skin Lesion Other Musculoskeletal Symptoms Referable to Limbs(729.89) Special Screening for Malignant Neoplasms, Colon Dysphagia, Unspecified(787.20) Motor Neuron Disease (Hcc) Gerd Without Esophagitis History of Thyroid Cancer Hypothyroidism Foot Cramps Menopausal and Postmenopausal Disorder Fatigue Vitamin D Deficiency Rectal Itching Sleep Disturbance Impaired Ambulation Muscle Spasticity Impaired Flexibility of Lower Extremity Abnormality of Gait Right Leg Pain Primary Lateral Sclerosis (Hcc) Decreased Coordination Decreased Barnum With Activities of Daily Living PAST SURGICAL HISTORY Procedure Laterality Date COLONOSCOPY FLX DX W/COLLJ SPEC WHEN PFRMD 09/03/2003 Colonoscopy COLONOSCOPY FLX DX W/COLLJ SPEC WHEN PFRMD 10/01/2014 Colonoscopy EGD TRANSORAL BIOPSY SINGLE/MULTIPLE 03/09/2006 Hiatal hernia/gastritis/esophagitis ESOPHAGOGASTRODUODENOSCOPY TRANSORAL DIAGNOSTIC 10/01/2014 EGD LAPS SURG CHOLECYSTECTOMY W/CHOLANGIOGRAPHY 03/12/2006 PAST SURGICAL HISTORY OF 03/12/2006 transvaginal sling REMOVAL SKN TAGS DIRECTOR CHECK FIBRQ TAGS ANY AREA UPW/15 03/18/2011 Ablation skin tags/ shave bx x 2 REMV CATARACT EXTRACAP,INSERT LENS 12/2023 S SLING BLADDER SALPINGO-OOPHORECTOMY COMPL/PRTL UNI/BI SPX 10/25/2000 Salpingo-oophorectomy THYROIDECTOMY TOTAL/COMPLETE 07/19/2001 For Cancer THYROIDECTOMY TOTAL/COMPLETE TOTAL ABDOMINAL HYSTERECT W/WO RMVL TUBE OVARY 10/25/2000 Hysterectomy, FIDE for fibroids and abnormal menstruation Social History Tobacco Use Smoking status: Never Smokeless tobacco: Never Substance Use Topics Alcohol use: Not Currently Comment: none since ~2018 Drug use: Yes Comment: microdose THC family history includes Aneurysm in her brother, brother, and grandson; Cancer in her maternal grandfather; DEMENTIA in her father; Heart in her brother and father; Other in her mother; Stroke in her father, maternal grandmother, and paternal grandmother; Thyroid in her mother; heart valve abnormality in her brother. Review of systems as noted, reviewed, and documented on intake section. Physical Exam: 01/30/24 1334 BP: 114/71 Pulse: (!) 56 SpO2: 97% Weight: 73.5 kg (162 lb) General: no acute distress. Awake, alert. Cardiopulmonary: unlabored breathing. Appears well perfused Abdomen: non-distended, Lower Extremities: non pitting edema, no calf tenderness. Skin: Visualized areas are warm, dry, no jaundice Spasticity Right Left Shoulder 1 1 Elbow fl/ext 1 / 1 / Wrist fl/ext / 0 / 0 Finger fl/ext 0 / 0 0 / 0 Hip adductors 2 2 Knee extensors 4 3 Knee flexors 4 3 Ankle plantarflexors 2 1 Modified Christine Scale 0 - No increase in tone 1 - Slight increase in tone (catch and release at end of ROM) 1+ - Slight increase in tone, manifested by a catch, followed by minimal resistance throughout remainder (less than half of ROM) 2 - Marked increase in tone through most of the ROM, but affected part(s) easily moved 3 - Considerable increase in tone; passive movement difficult 4 - Affected part(s) rigid in flexion or extension SPASMS observed: RUE: No LUE: No RLE: No LLE: No IMPRESSION: Waldemar Hudson is a 68 year old left handed female. She arrives today with her to discuss spasticity. Previously prescribed baclofen by neurology but has not gotten the prescription. She continues with daily stretching, exercises, acupuncture, along with outpatient therapy services. 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.1) Spastic dysarthria ACTIVE PROBLEM LIST Personal History of Malignant Neoplasm of Thyroid Esophageal Reflux Closed Fracture of Metatarsal Bone(s) Malignant Neoplasm of Thyroid Gland (Hcc) Calculus of Gallbladder With Other Cholecystitis, Without Mention of Obstruction GASTRITIS ANTRAL( W/O Hemorrhage) Sprain and Strain of Unspecified Site of Shoulder and Upper Arm Closed Fracture of One Or More Phalanges of Foot Dysmetabolic Syndrome X Unspecified Site of Sprain and Strain Congenital Pes Planus Skin Lesion Other Musculoskeletal Symptoms Referable to Limbs(729.89) Special Screening for Malignant Neoplasms, Colon Dysphagia, Unspecified(787.20) Motor Neuron Disease (Hcc) Gerd Without Esophagitis History of Thyroid Cancer Hypothyroidism Foot Cramps Menopausal and Postmenopausal Disorder Fatigue Vitamin D Deficiency Rectal Itching Sleep Disturbance Impaired Ambulation Muscle Spasticity Impaired Flexibility of Lower Extremity Abnormality of Gait Right Leg Pain Primary Lateral Sclerosis (Hcc) Decreased Coordination Decreased Barnum With Activities of Daily Living Office Visit on 01/30/24 CONSULT - SPASTICITY EVAL CONSULT TO ENT ASSESSMENT & PLAN: ASSESSMENT/PLAN: 1. Spasticity - ICD9: 781.0, ICD10: R25.2 (primary diagnosis) - BACLOFEN 10 MG TABLET - can consider botox. Would like to reach out to neurologist and discuss. 2. Primary lateral sclerosis (HCC) - ICD9: 335.24, ICD10: G12.23 - continue to follow with neurology - continue with PT, OT, and PRESCHOOL ADVISER 3. Pseudobulbar affect - ICD9: 310.81, ICD10: F48.2 - continue with Neudexta 4. Spastic dysarthria - ICD9: 784.51, ICD10: R47.1 - CONSULT TO ENT During our face to face clinical encounter we discussed my concerns neurologically in terms of diagnosis, impact on health and activities of living, and addressed questions. I tried to reassure the patient and also address questions. I explained to the patient to call if any questions, to review results, and follow-up as instructed or as needed. Patient verbalizes understanding and I have addressed concerns and questions at this visit Patient has my contacts, educational material provided, and my chart sign up. After visit summary discussed. I spent a total of 45 minutes on the date of the service which included preparing to see the patient, [id number] patient care, completing clinical documentation, performing a medically appropriate examination, counseling and educating the patient/family/caregiver, ordering medications, tests, or procedures and communicating results to the patient/family/caregiver. Lia Hope APRN.PRINCE [facility] documented in this encounter [facility] 01-29-2024 Telephone encounter Note order [facility] 01-29-2024 Miscellaneous Notes order documented in this encounter [facility] 01-29-2024 History of Present illness Narrative VIRTUAL VISIT PROGRESS NOTE This is a virtual visit using [email or web address] Zoom Video Visit. It required patient-provider interaction for the medical decision making as documented below. I have communicated my name and active licensure. The patient's identity and physical location were verified at the time of this visit. Either the patient or their legal branch sales and service representative has been informed of the risks and benefits of -- and alternatives to -- treatment through a remote evaluation and consents to proceed with the evaluation remotely. Waldemar Hudson is a 68 year old female seen for C. Difficile Event of colitis treated in 2021 with metronidazole Since then testing in the stool positive for PCR but toxin negative No persistent diarrhea Latest Ref Rng 08/08/2023 C. difficile PCR Negative for C. difficile toxin by PCR Positive for C. difficile toxin by PCR ! Latest Ref Rng 08/08/2023 C. difficile Toxin EIA Negative for C. difficile toxin C. difficile toxin NOT DETECTED by EIA. HISTORY REVIEWED (electronic chart updated): PAST MEDICAL HISTORY Diagnosis Date Arrhythmia irregular heart rate-several yrs ago-PVC's Endometriosis Esophageal reflux 05/24/2005 Lichen sclerosus PERS HX OF THYROID MALIGNANCY 05/24/2005 Primary lateral sclerosis (HCC) 2017 Snoring Uterine fibroid PAST SURGICAL HISTORY Procedure Laterality Date COLONOSCOPY FLX DX W/COLLJ SPEC WHEN PFRMD 09/03/2003 Colonoscopy COLONOSCOPY FLX DX W/COLLJ SPEC WHEN PFRMD 10/01/2014 Colonoscopy EGD TRANSORAL BIOPSY SINGLE/MULTIPLE 03/09/2006 Hiatal hernia/gastritis/esophagitis ESOPHAGOGASTRODUODENOSCOPY TRANSORAL DIAGNOSTIC 10/01/2014 EGD LAPS SURG CHOLECYSTECTOMY W/CHOLANGIOGRAPHY 03/12/2006 PAST SURGICAL HISTORY OF 03/12/2006 transvaginal sling REMOVAL SKN TAGS DIRECTOR CHECK FIBRQ TAGS ANY AREA UPW/15 03/18/2011 Ablation skin tags/ shave bx x 2 REMV CATARACT EXTRACAP,INSERT LENS 12/2023 S SLING BLADDER SALPINGO-OOPHORECTOMY COMPL/PRTL UNI/BI SPX 10/25/2000 Salpingo-oophorectomy THYROIDECTOMY TOTAL/COMPLETE 07/19/2001 For Cancer THYROIDECTOMY TOTAL/COMPLETE TOTAL ABDOMINAL HYSTERECT W/WO RMVL TUBE OVARY 10/25/2000 Hysterectomy, FIDE for fibroids and abnormal menstruation FAMILY HISTORY Problem Relation Age of Onset other (Other [Other]) Mother normal pressure hydrocephalous Thyroid Mother Heart Father Stroke Father other (DEMENTIA [Other]) Father frontotemporal dementia other (heart valve abnormality) Brother Aneurysm Brother Aneurysm Brother Heart Brother RHEUMATIC FEVER IN CHILDHOOD Stroke Maternal Grandmother Cancer Maternal Grandfather COLON Stroke Paternal Grandmother Aneurysm Grandson Social History Tobacco Use Smoking status: Never Smokeless tobacco: Never Substance Use Topics Alcohol use: Not Currently Comment: none since ~2018 Drug use: Yes Comment: microdose THC Current Outpatient Medications Medication Sig baclofen 10 mg tablet Take 0.5 tablets by mouth three times a day for 14 days, THEN 1 tablet three times a day. levothyroxine (SYNTHROID) 112 mcg tablet NUEDEXTA 20-10 mg capsule Take 1 capsule by mouth two times a day. (Patient taking differently: Take 1 capsule by mouth two times a day. Taking three times a day.) nystatin (MYCOSTATIN, NILSTAT) 500,000 unit tab Take 2 tablets by mouth three times a day with meals. (Patient taking differently: Take 2 tablets by mouth three times a day with meals. PRN) TherBiotic Complete 120 Ct[address] (Klaire/Prothera) Take 1 capsule by mouth once daily. itraconazole 0.5 % (CPD) 1-2 sprays to each nostril twice daily Fish Oil-[place]-3 Fatty Acids 300-1,000 mg cap Take by mouth. Meriva-SR (Monae) decrease inflammation/pain/gut healing Take 1-2 capsules two times daily No current facility-administered medications for this visit. 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 No need for antibiotics, fecal transplant, or isolation measures Will check calprotectin to rule out active colitis, low concern. PLAN: - Calprotectin - IF elevated, then flexible sigmoidoscopy with biopsies There are no Patient Instructions on file for this visit. Benton Silva MD Answers submitted by the patient for this visit: Review of Systems Gastroenterology (Submitted on 01/27/2024) Fever: No Chills: No Night Sweats: Yes Unitentional Weight Change: No A Cough: No Difficulty Breathing: No Chest Pain: No Belly pain: Yes A feeling of fullness or have belly pain after eating: Yes Food getting stuck in your throat or chest after eating: Yes Nausea - that is, a feeling like you could vomit: Yes Regurgitation - that is, food or liquid coming back up into your throat or mouth without vomiting, or feel burning behind your breast bone: Yes Loss of appetite: No To throw up or vomit: No Blood in your stools: No Black tarry stools: No Loose or watery stools: Yes The feeling like you need to empty your bowels right away - that is, feel as if you would have an accident: No Bowel incontinence - that is, have an accident because you cannot make it to the bathroom in time: No Problems with straining while having bowel movements , hard or lumpy stools, or feel unfinished (that you have not passed all your stool): No Pain in rectum or anus during bowel movements: No Problems with jaundice - that is, yellow discoloration of your skin or eyes, now or in the past: No Problems with having to flush the toilet more than two times due to oily stool, or see stool floating with oil: No documented in this encounter [facility] 01-29-2024 Note HNO ID: [id number] Author: BENTON SILVA MD Service: ? Author Type: Physician Type: Progress Notes Filed: 02/06/2024 14:59 Note Text: VIRTUAL VISIT PROGRESS NOTE This is a virtual visit using [employer] Video Visit. It required patient-provider interaction for the medical decision making as documented below. I have communicated my name and active licensure. The patient's identity and physical location were verified at the time of this visit. Either the patient or their legal branch sales and service representative has been informed of the risks and benefits of -- and alternatives to -- treatment through a remote evaluation and consents to proceed with the evaluation remotely. Waldemar Hudson is a 68 year old female seen for C. Difficile Event of colitis treated in 2021 with metronidazole Since then testing in the stool positive for PCR but toxin negative No persistent diarrhea Latest Ref Rn 08/08/2023 C. difficile PCR Negative for C. difficile toxin by PCR Positive for C. difficile toxin by PCR ! Latest Ref Rn 08/08/2023 C. difficile Toxin EIA Negative for C. difficile toxin C. difficile toxin NOT DETECTED by EIA. HISTORY REVIEWED (electronic chart updated): PAST MEDICAL HISTORY Diagnosis Date Arrhythmia irregular heart rate-several yrs ago-PVC's Endometriosis Esophageal reflux 05/24/2005 Lichen sclerosus PERS HX OF THYROID MALIGNANCY 05/24/2005 Primary lateral sclerosis (HCC) 2017 Snoring Uterine fibroid PAST SURGICAL HISTORY Procedure Laterality Date COLONOSCOPY FLX DX W/COLLJ SPEC WHEN PFRMD 09/03/2003 Colonoscopy COLONOSCOPY FLX DX W/COLLJ SPEC WHEN PFRMD 10/01/2014 Colonoscopy EGD TRANSORAL BIOPSY SINGLE/MULTIPLE 03/09/2006 Hiatal hernia/gastritis/esophagitis ESOPHAGOGASTRODUODENOSCOPY TRANSORAL DIAGNOSTIC 10/01/2014 EGD LAPS SURG CHOLECYSTECTOMY W/CHOLANGIOGRAPHY 03/12/2006 PAST SURGICAL HISTORY OF 03/12/2006 transvaginal sling REMOVAL SKN TAGS DIRECTOR CHECK FIBRQ TAGS ANY AREA UPW/15 03/18/2011 Ablation skin tags/ shave bx x 2 REMV CATARACT EXTRACAP,INSERT LENS 12/2023 S SLING BLADDER SALPINGO-OOPHORECTOMY COMPL/PRTL UNI/BI SPX 10/25/2000 Salpingo-oophorectomy THYROIDECTOMY TOTAL/COMPLETE 07/19/2001 For Cancer THYROIDECTOMY TOTAL/COMPLETE TOTAL ABDOMINAL HYSTERECT W/WO RMVL TUBE OVARY 10/25/2000 Hysterectomy, FIDE for fibroids and abnormal menstruation FAMILY HISTORY Problem Relation Age of Onset other (Other [Other]) Mother normal pressure hydrocephalous Thyroid Mother Heart Father Stroke Father other (DEMENTIA [Other]) Father frontotemporal dementia other (heart valve abnormality) Brother Aneurysm Brother Aneurysm Brother Heart Brother RHEUMATIC FEVER IN CHILDHOOD Stroke Maternal Grandmother Cancer Maternal Grandfather COLON Stroke Paternal Grandmother Aneurysm Grandson Social History Tobacco Use Smoking status: Never Smokeless tobacco: Never Substance Use Topics Alcohol use: Not Currently Comment: none since ~2018 Drug use: Yes Comment: microdose THC Current Outpatient Medications Medication Sig baclofen 10 mg tablet Take 0.5 tablets by mouth three times a day for 14 days, THEN 1 tablet three times a day. levothyroxine (SYNTHROID) 112 mcg tablet NUEDEXTA 20-10 mg capsule Take 1 capsule by mouth two times a day. (Patient taking differently: Take 1 capsule by mouth two times a day. Taking three times a day.) nystatin (MYCOSTATIN, NILSTAT) 500,000 unit tab Take 2 tablets by mouth three times a day with meals. (Patient taking differently: Take 2 tablets by mouth three times a day with meals. PRN) TherBiotic Complete [address] Ct[address] (Klaire/Prothera) Take 1 capsule by mouth once daily. itraconazole 0.5 % (CPD) 1-2 sprays to each nostril twice daily Fish Oil-[place]-3 Fatty Acids 300-1,000 mg cap Take by mouth. Meriva-SR (Monae) decrease inflammation/pain/gut healing Take 1-2 capsules two times daily No current facility-administered medications for this visit. 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 No need for antibiotics, fecal transplant, or isolation measures Will check calprotectin to rule out active colitis, low concern. PLAN: - Calprotectin - IF elevated, then flexible sigmoidoscopy with biopsies There are no Patient Instructions on file for this visit. Benton Silva MD Answers submitted by the patient for this visit: Review of Systems Gastroenterology (Submitted on 01/27/2024) Fever: No Chills: No Night Sweats: Yes Unitentional Weight Change: No A Cough: No Difficulty Breathing: No Chest Pain: No Be (more content not included)... [facility] 01-29-2024 Note HNO ID: [id number] Author: NATHAN MADRIGAL PT Service: ? Author Type: Physical Therapist Type: Progress Notes Filed: 01/29/2024 18:37 Note Text: Episode Visit Count: 29 Therapist That Will Accept/Oversee The Plan Of Care: Nathan Madrigal PT, ANABELLE Start of Care Date: 10/03/23 Onset Date: 12/31/23 Plan of Care Certification Date: 01/29/24 Next Certification Due Date: 03/21/24 Patient Identified by Name and Date of : Yes REHABILITATION AND SPORTS THERAPY PHYSICAL THERAPY PROGRESS REPORT PLAN OF CARE UPDATE: Assessment: Waldemar Hudson demonstrates improving tolerance and ability to increase bilateral LE passive hip/knee ROM with passive stretching. She has progressed toward goals. Patient continues to present with impairments in ADL's, gait, independence in exercise, overall function, posture, range of motion, and symptom management that interfere with rising from a chair, standing, walking, stair negotiation . Current prognosis is Fair due to: clinical presentation, chronic nature of impairments, limited tolerance to activity, Prognosis may be improved by good support system/ coping skills, positive past response to therapy. She will benefit from continued skilled therapy services to meet the updated goals for this plan of care as noted below. Goals for Episode of Care: created on 01/29/2024 through 03/21/2024 Patient will increase active ROM of bilateral knees to no greater than 10-15 degrees from achieving full knee extension to allow patient to improve postural alignment, to improve body/postural mechanics for transfers / gait pattern , and to decrease falls risks. (Ongoing) Patient will be able to correct postural deviations with minimal assist verbal cues in order to improve postural alignment of trunk during transfers, ambulation, and standing and to decrease current R LE pain. (Ongoing) Decrease R hip/R knee pain to 1-4/10 at rest and with functional activities to allow patient to improve ambulation, transfers, and standing tolerance for ADLs. (Ongoing) Patient to be able to non-reciprocally negotiate stairs at home with bilateral rail use with assist of for safety as needed and be able to complete this task in 5 minutes as she did previously. (Ongoing) Patient Goals: To reduce my right knee pain New goals added for [facility] updated 01/09/2024 - Patient education regarding pathophysiology and relationship to deficits presented this date, including exercise recommendations for people with ALS. Including dosage, recovery and intensity. (met) - Patient educated on how to complete home exercise program listed below independently or with caregiver assistance to maintain function, promote wellness, decrease risk of secondary impairments (met) - Patient demonstrates independent and proper use of assistive device to allow for improved walking quality and safety therefore reducing the risk of falls (met) - Patient/ caregiver educated on safe transfers, positioning, and use of adaptive equipment this date to ensure safety for patient and caregiver (met) Recommended Equipment: pivot disc and power wheelchair Planned Interventions, Frequency, and Duration: 2x/week, 6 weeks Total Number of Visits Planned: 12 Patient to be seen for Therapeutic exercise (18072), Neuromuscular re-education (66841), Manual therapy (53247), Therapeutic activities (35062), Self-nursing home management (20090), Gait Training (77381), Patient/Family/Caregiver Education, Orthosis / DME PLAN FOR NEXT VISIT: Continue with progression of bilateral LE passive stretching and LE/core strengthening exercises. SUBJECTIVE: Patient arrived today with a [employer] power wheelchair that she got on Sunday afternoon and has been using this throughout her house and practiced within her home for 2 days. She took it outside on Sunday and notes that she has had more independence within the home. She rates her R knee pain at 3 out of 10. She was having to sit upright on the bed at times last night due to bilateral hip pain. Patient continues to manage her stairs getting in and out of her condomimium with her 's assistance.. Functional Limitations: rising from a chair, standing, walking, stair negotiation Pain: Pain Pain Level: 3 Pain Location: Knee - Right Post Treatment Pain Post Treatment Pain Level: Better PROMIS Scales 01/27/2024 01/08/2024 12/26/2023 Higher is Better Phys Func - Score 23 (severe dysfunction) Phys Func - Percentile 0 Self-Eff Symptom - Score 38 (Low) 37 (Low) Self-Eff Symptom - Percentile 12 10 T-scores: mean of general population = 50. 5 points is clinically meaningfully difference Percentiles provide an indication of how the patient's score ranks in relation to the general population. Higher percentile rankings indicate better function/quality of life. 50th percentile is the average of the general population and indicates half (more content not included)... [facility] 01-29-2024 History of Present illness Narrative Images from the original note were not included. Episode Visit Count: 29 Therapist That Will Accept/Oversee The Plan Of Care: Nathan Madrigal PT, ANABELLE Start of Care Date: 10/03/23 Onset Date: 12/31/23 Plan of Care Certification Date: 01/29/24 Next Certification Due Date: 03/21/24 Patient Identified by Name and Date of : Yes REHABILITATION AND SPORTS THERAPY PHYSICAL THERAPY PROGRESS REPORT PLAN OF CARE UPDATE: Assessment: Waldemar Hudson demonstrates improving tolerance and ability to increase bilateral LE passive hip/knee ROM with passive stretching. She has progressed toward goals. Patient continues to present with impairments in ADL's, gait, independence in exercise, overall function, posture, range of motion, and symptom management that interfere with rising from a chair, standing, walking, stair negotiation . Current prognosis is Fair due to: clinical presentation, chronic nature of impairments, limited tolerance to activity, Prognosis may be improved by good support system/ coping skills, positive past response to therapy. She will benefit from continued skilled therapy services to meet the updated goals for this plan of care as noted below. Goals for Episode of Care: created on 01/29/2024 through 03/21/2024 Patient will increase active ROM of bilateral knees to no greater than 10-15 degrees from achieving full knee extension to allow patient to improve postural alignment, to improve body/postural mechanics for transfers / gait pattern , and to decrease falls risks. (Ongoing) Patient will be able to correct postural deviations with minimal assist verbal cues in order to improve postural alignment of trunk during transfers, ambulation, and standing and to decrease current R LE pain. (Ongoing) Decrease R hip/R knee pain to 1-4/10 at rest and with functional activities to allow patient to improve ambulation, transfers, and standing tolerance for ADLs. (Ongoing) Patient to be able to non-reciprocally negotiate stairs at home with bilateral rail use with assist of for safety as needed and be able to complete this task in 5 minutes as she did previously. (Ongoing) Patient Goals: To reduce my right knee pain New goals added for ALS Clinic updated 01/09/2024 - Patient education regarding pathophysiology and relationship to deficits presented this date, including exercise recommendations for people with ALS. Including dosage, recovery and intensity. (met) - Patient educated on how to complete home exercise program listed below independently or with caregiver assistance to maintain function, promote wellness, decrease risk of secondary impairments (met) - Patient demonstrates independent and proper use of assistive device to allow for improved walking quality and safety therefore reducing the risk of falls (met) - Patient/ caregiver educated on safe transfers, positioning, and use of adaptive equipment this date to ensure safety for patient and caregiver (met) Recommended Equipment: pivot disc and power wheelchair Planned Interventions, Frequency, and Duration: 2x/week, 6 weeks Total Number of Visits Planned: 12 Patient to be seen for Therapeutic exercise (76932), Neuromuscular re-education (64639), Manual therapy (48184), Therapeutic activities (12952), Self-nursing home management (22654), Gait Training (14809), Patient/Family/Caregiver Education, Orthosis / DME PLAN FOR NEXT VISIT: Continue with progression of bilateral LE passive stretching and LE/core strengthening exercises. SUBJECTIVE: Patient arrived today with a [employer] power wheelchair that she got on Sunday afternoon and has been using this throughout her house and practiced within her home for 2 days. She took it outside on Sunday and notes that she has had more independence within the home. She rates her R knee pain at 3 out of 10. She was having to sit upright on the bed at times last night due to bilateral hip pain. Patient continues to manage her stairs getting in and out of her condomimium with her 's assistance.. Functional Limitations: rising from a chair, standing, walking, stair negotiation Pain: Pain Pain Level: 3 Pain Location: Knee - Right Post Treatment Pain Post Treatment Pain Level: Better PROMIS Scales 01/27/2024 01/08/2024 12/26/2023 Higher is Better Phys Func - Score 23 (severe dysfunction) Phys Func - Percentile 0 Self-Eff Symptom - Score 38 (Low) 37 (Low) Self-Eff Symptom - Percentile 12 10 T-scores: mean of general population = 50. 5 points is clinically meaningfully difference Percentiles provide an indication of how the patient's score ranks in relation to the general population. Higher percentile rankings indicate better function/quality of life. 50th percentile is the average of the general population and indicates half of respondents had a worse score. OBJECTIVE MEASURES WITH LEVEL OF FUNCTION: Posture / Alignment Posture: Forward head, Rounded shoulders, Comments Posture comment: Trunk/hips/knees flexed, bilateral hip flexor and bilateral knee flexor tightness/contractures due to hypertonia. LE AROM R Knee Extension: -30 Degrees R Knee Flexion: 95 Degrees L Knee Extension: -15 Degrees L Knee Flexion: 105 Degrees LE PROM R Knee Extension: -20 Degrees L Knee Extension: -10 Degrees LE Strength R Hip Flexion (L2): (4-4+/5) R Hip ABduction: 4/5 R Hip ADduction: 4+/5 R Knee Extension (L3): 4/5 R Knee Flexion: 4/5 R Ankle Dorsiflexion (L4): (4-4+/5) R Ankle Plantar Flexion: 4+/5 L Hip Flexion (L2): (4-4+/5) L Hip ABduction: 4/5 L Hip ADduction: 4+/5 L Knee Extension (L3): (4-4+/5, limited ROM) L Knee Flexion: 4/5 L Ankle Dorsiflexion (L4): (4-4+/5) L Ankle Plantar Flexion: 4+/5 Tone Tone: Hypertonic Hypertonic Comments: L LE hypertionia, R LE hypertonia and noted the R LE going into spasm with R hip/knee flexion passive stretching R LE today. Mobility Supine To Sit: Minimal Assistance Sit to Supine: Minimal Assistance Stand To Sit: Minimal Assistance Bed To Chair: Minimal Assistance Bed To Chair Transfer Type: Stand Pivot (Use of pivot disc) Gait Gait Device: Wheelchair TREATMENT: Therapeutic Exercise: 1: Seated forward stretch over yellow theraball with bilateral UE's and ball on therapist's lap in front of patient x 10 reps forward and then 10 reps each in scaption for stretching (Did not complete today) 2: Seated marching with band 2 x 15 reps w/ pink band 3: Seated resisted adduction x 30 reps 4: Seated resisted abduction x 30 reps w/ pink 5: Supine bridging 2 x 15 reps over yellow ball 6: Supine bent leg marching 2 x 15 reps alternating with LE rested on yellow ball 7: SAQ 2 x 15 reps over yellow ball each LE with assist 8: Supine lower trunk rotation with assist with bilateral LE rested on yellow therapy ball x 15 each direction 11: Seated LAQ 2 x 15 reps each LE Skilled Intervention: Skilled judgment was used in selection of appropriate interventions. Completed Progress Report for LE strength testing, bilateral knee AROM/PROM. Manual Therapy: 1: Passive stretching to each LE for hips flexion, abduction, hip ER and IR in flexion and hamstrings stretching, knees flexion/extension and bilateral calf stretches x 15 reps each. Skilled Intervention: Manual skills to improve joint mobility, ROM, and decrease pain. Utilized anatomy knowledge of the therapist, and assessment of patient's response to intervention. Billing Therapeutic Exercise Treatment Minutes: 40 Manual TherapyTreatment Minutes: 20 Skilled Treatment Time Minutes (timed and untimed codes): 60 Total Session Time (minutes): 65 Session Start Time : 1020 Session Stop Time : 1125 Nathan Madrigal PT, MBA documented in this encounter [facility] 01-25-2024 Note HNO ID: [id number] Author: DAJA GOMEZ PTA Service: ? Author Type: [employer] Type: Progress Notes Filed: 01/25/2024 15:23 Note Text: Episode Visit Count: 28 Therapist That Will Accept/Oversee The Plan Of Care: Nathan Madrigal PT, ANABELLE Start of Care Date: 10/03/23 Onset Date: 12/31/23 Plan of Care Certification Date: 12/28/23 Next Certification Due Date: 02/15/24 Patient Identified by Name and Date of : Yes REHABILITATION AND SPORTS THERAPY PHYSICAL THERAPY TREATMENT NOTE ASSESSMENT: Waldemar Hudson tolerated the session with no issues. She demonstrated tolerance to passive stretching with less knee extension during stretching noted on left LE this date. The patient will continue to benefit from ongoing skilled physical therapy to progress toward set goals. PLAN FOR NEXT VISIT: Continue LE passive stretching and LE/core strengthening exercises. SUBJECTIVE: Patient and spouse reported that she had accupuncture and he wants an xray of her right knee as he feels like there is fluid on the back of her knee. Pain: Pain Pain Level: 3 Pain Location: Knee - Right Post Treatment Pain Post Treatment Pain Level: No Change OBJECTIVE MEASURES WITH LEVEL OF FUNCTION: No objective measures taken this date. TREATMENT: Therapeutic Exercise: 1: Seated forward stretch over yellow theraball with bilateral UE's and ball on therapist's lap in front of patient x 10 reps forward and then 10 reps each in scaption for stretching 2: Seated marching with band x 15 reps w/ pink band 3: Seated resisted adduction x 30 reps 4: Seated resisted abduction x 30 reps w/ pink 5: Supine bridging 2 x 15 reps over yellow ball 6: Supine bent leg marching 2 x 15 reps alternating with LE rested on yellow ball 7: SAQ 2 x 15 reps over yellow ball each LE with assist 8: Supine lower trunk rotation with assist with bilateral LE rested on yellow therapy ball x 15 each direction 11: Seated LAQ 2 x 15 reps each LE Skilled Intervention: Patient was educated in proper exercise technique and purpose for exercises. Skilled judgment was used in selection of appropriate interventions. Manual Therapy: 1: Passive stretching to each LE for hips flexion, abduction, hip ER and IR in flexion and hamstrings stretching, knees flexion/extension and bilateral calf stretches x 15 reps each. Skilled Intervention: Manual skills to improve joint mobility, ROM, and decrease pain. Utilized anatomy knowledge of the therapist, and assessment of patient's response to intervention. Billing Therapeutic Exercise Treatment Minutes: 30 Manual TherapyTreatment Minutes: 20 Skilled Treatment Time Minutes (timed and untimed codes): 50 Total Session Time (minutes): 58 Session Start Time : 1315 Session Stop Time : 1413 Daja Gomez PTA [facility] 01-25-2024 History of Present illness Narrative Episode Visit Count: 28 Therapist That Will Accept/Oversee The Plan Of Care: Nathan Madrigal PT, ANABELLE Start of Care Date: 10/03/23 Onset Date: 12/31/23 Plan of Care Certification Date: 12/28/23 Next Certification Due Date: 02/15/24 Patient Identified by Name and Date of : Yes REHABILITATION AND SPORTS THERAPY PHYSICAL THERAPY TREATMENT NOTE ASSESSMENT: Waldemar Hudson tolerated the session with no issues. She demonstrated tolerance to passive stretching with less knee extension during stretching noted on left LE this date. The patient will continue to benefit from ongoing skilled physical therapy to progress toward set goals. PLAN FOR NEXT VISIT: Continue LE passive stretching and LE/core strengthening exercises. SUBJECTIVE: Patient and spouse reported that she had accupuncture and he wants an xray of her right knee as he feels like there is fluid on the back of her knee. Pain: Pain Pain Level: 3 Pain Location: Knee - Right Post Treatment Pain Post Treatment Pain Level: No Change OBJECTIVE MEASURES WITH LEVEL OF FUNCTION: No objective measures taken this date. TREATMENT: Therapeutic Exercise: 1: Seated forward stretch over yellow theraball with bilateral UE's and ball on therapist's lap in front of patient x 10 reps forward and then 10 reps each in scaption for stretching 2: Seated marching with band x 15 reps w/ pink band 3: Seated resisted adduction x 30 reps 4: Seated resisted abduction x 30 reps w/ pink 5: Supine bridging 2 x 15 reps over yellow ball 6: Supine bent leg marching 2 x 15 reps alternating with LE rested on yellow ball 7: SAQ 2 x 15 reps over yellow ball each LE with assist 8: Supine lower trunk rotation with assist with bilateral LE rested on yellow therapy ball x 15 each direction 11: Seated LAQ 2 x 15 reps each LE Skilled Intervention: Patient was educated in proper exercise technique and purpose for exercises. Skilled judgment was used in selection of appropriate interventions. Manual Therapy: 1: Passive stretching to each LE for hips flexion, abduction, hip ER and IR in flexion and hamstrings stretching, knees flexion/extension and bilateral calf stretches x 15 reps each. Skilled Intervention: Manual skills to improve joint mobility, ROM, and decrease pain. Utilized anatomy knowledge of the therapist, and assessment of patient's response to intervention. Billing Therapeutic Exercise Treatment Minutes: 30 Manual TherapyTreatment Minutes: 20 Skilled Treatment Time Minutes (timed and untimed codes): 50 Total Session Time (minutes): 58 Session Start Time : 1315 Session Stop Time : 1413 Daja Gomez PTA documented in this encounter [facility] 01-24-2024 Note HNO ID: [id number] Author: CORI HOPE R Ac Service: ? Author Type: Diplomat of Acupuncture Type: Progress Notes Filed: 01/24/2024 15:53 Note Text: Waldemar Hudson a 68 year old female presents to the acupuncture clinic on 01/24/24 for a follow up visit. Patient identity confirmed by name and : Yes This is the 10 visit for the patient this year It has been 1 week(s) since the last acupuncture treatment. Last treatment date: 01/17/2024 Initial Acupuncture treatment date: 11/12/2023 Chief Complaint: Primary lateral sclerosis, right knee pain, muscle spasm SUBJECTIVE Patient noted the pain that she used to feel with sitting position has been improved. However, she has been suffering from nighttime pain in right knee, which she describes as sharp sensation, attributing the pain to without being moved much leading do lack of blood flow. Patient experiences nighttime muscle spasm which involuntary moves her right leg, causing pain in the knee. We discussed trying Cryptolepsis as a natural herbal antibiotic approach to fight against Lyme. I provided patient with the product information. Hold off on taking Alfredo Gaytan until she finished baclofen. Cryptolepsis has been ordered. Patient noted her right knee pain was much improved for a few days following the previous acupuncture. Patient has been battling MS since 2012. Patient has history of Lyme disease, mold exposure and thyroid cancer. Thyroidism Trialed PT, dry needling, chiropractic, massage. PAIN ASSESSMENT: Currently experiencing pain Pain level (0 no pain at all to 10 being the worst): 4 OBJECTIVE: Physical Exam: Tenderness: knees and feet Pain with palpation: na ROM: limited ROM Orthopedic Tests: na Tightness: knees Divina/Trigger points: na Visual Inspection Discoloration: na Edema: no Gait/Ambulation: normal Ovalle: good Qi/Patient vitality: normal Alert Well-Groomed Normal Imaging reports Images on file See EPIC Images have been reviewed no TCM Tongue: NA TCM Pulse: thin and weak ASSESSMENT Patient presents with signs and symptoms consistent with the diagnosis. Patient would benefit from acupuncture therapy to address listed deficiencies and return to PLOF. Pt was educated on symptoms, prognosis, plan of care and activity modifications. Pt verbalized understanding and agreed to begin care. TCM Pattern: PLS due to Qi and blood deficiency. TCM Treatment Principle: Calm Ovalle. Promote smooth flow of Qi and blood. Open channel. Reduce pain. PLAN OF CARE Counseled patient on risks of acupuncture treatment including pain, infection, bleeding, and no relief of pain. The patient was positioned comfortably. There was no evidence of infection at the site of needle insertions. Acupuncture Treatment: Treatment/Needle Set 1, Supine: Points: Yin Gaytan, motor line 2 points bilaterally on the scalp, ear ovalle men, Jan Zenon, Ling Gu, Da Austen, SP9, R: SJ3, SI3 15 minutes face to face with patient for set 1 Treatment/Needle Set 2, Supine: Points: R: GB34, Esquivel Chi, SP9, Si MA points 3, Xi Dinh, SP10, He Ding, B: GB41, ST43 10 minutes face to face with patient for set 2 Calcium were retained for 30 minutes # of needles inserted: 34 # of needles withdrawn: 34 Adjunct techniques used: TDP Infrared Heat Lamp- Applied to Rt. Hip and right knee Patient tolerated the procedure well. UNIVERSAL PROTOCOL / SAFETY CHECKLIST Procedure to be Performed: Acupuncture Sign In: A Moment of CARE was completed. Personnel directly involved with the procedure wore the appropriate PPE (Personal Protective Equipment). Patient/Surrogate Stated/Verified: PATIENT VERIFIED(optional for EMERGENT procedures): Patient name, Date of , Relevant allergies, and The intended procedure Time Out Communication: Intended patient and procedure match the source documents. Consent documented and matches the intended procedure. Sign Out: SIGN OUT (optional for EMERGENT procedures): All instruments, equipment, possible retained foreign bodies accounted for. Trenton Hanson Provider Name: Trenton Hanson 25 Total minutes face to face time spent with patient Acupuncture and [place] herbal therapy are not a substitute for conventional medical diagnosis and treatment. Patient agrees that either: 1. A diagnostic exam has been performed by a physician or chiropractor within the last six months regarding the condition for which they are seeking acupuncture treatment. or 2. If no diagnostic exam by a physician or chiropractor has been done within the last six months regarding the condition for which patient is seeking treatment, the Processing Analyst, per [place] Law, recommends that this diagnostic exam be performed. [facility] 01-24-2024 History of Present illness Narrative Waldemar Hudson a 68 year old female presents to the acupuncture clinic on 01/24/24 for a follow up visit. Patient identity confirmed by name and : Yes This is the 10 visit for the patient this year It has been 1 week(s) since the last acupuncture treatment. Last treatment date: 01/17/2024 Initial Acupuncture treatment date: 11/12/2023 Chief Complaint: Primary lateral sclerosis, right knee pain, muscle spasm SUBJECTIVE Patient noted the pain that she used to feel with sitting position has been improved. However, she has been suffering from nighttime pain in right knee, which she describes as sharp sensation, attributing the pain to without being moved much leading do lack of blood flow. Patient experiences nighttime muscle spasm which involuntary moves her right leg, causing pain in the knee. We discussed trying Cryptolepsis as a natural herbal antibiotic approach to fight against Lyme. I provided patient with the product information. Hold off on taking Alfredo Gaytan until she finished baclofen. Cryptolepsis has been ordered. Patient noted her right knee pain was much improved for a few days following the previous acupuncture. Patient has been battling MS since 2012. Patient has history of Lyme disease, mold exposure and thyroid cancer. Thyroidism Trialed PT, dry needling, chiropractic, massage. PAIN ASSESSMENT: Currently experiencing pain Pain level (0 no pain at all to 10 being the worst): 4 OBJECTIVE: Physical Exam: Tenderness: knees and feet Pain with palpation: na ROM: limited ROM Orthopedic Tests: na Tightness: knees Divina/Trigger points: na Visual Inspection Discoloration: na Edema: no Gait/Ambulation: normal Ovalle: good Qi/Patient vitality: normal Alert Well-Groomed Normal Imaging reports Images on file See EPIC Images have been reviewed no TCM Tongue: NA TCM Pulse: thin and weak ASSESSMENT Patient presents with signs and symptoms consistent with the diagnosis. Patient would benefit from acupuncture therapy to address listed deficiencies and return to PLOF. Pt was educated on symptoms, prognosis, plan of care and activity modifications. Pt verbalized understanding and agreed to begin care. TCM Pattern: PLS due to Qi and blood deficiency. TCM Treatment Principle: Calm Ovalle. Promote smooth flow of Qi and blood. Open channel. Reduce pain. PLAN OF CARE Counseled patient on risks of acupuncture treatment including pain, infection, bleeding, and no relief of pain. The patient was positioned comfortably. There was no evidence of infection at the site of needle insertions. Acupuncture Treatment: Treatment/Needle Set 1, Supine: Points: Yin Gaytan, motor line 2 points bilaterally on the scalp, ear ovalle men, Jan Zenon, Ling Gu, Da Austen, SP9, R: SJ3, SI3 15 minutes face to face with patient for set 1 Treatment/Needle Set 2, Supine: Points: R: GB34, Esquivel Chi, SP9, Si MA points 3, Xi Dinh, SP10, He Ding, B: GB41, ST43 10 minutes face to face with patient for set 2 Calcium were retained for 30 minutes # of needles inserted: 34 # of needles withdrawn: 34 Adjunct techniques used: TDP Infrared Heat Lamp- Applied to Rt. Hip and right knee Patient tolerated the procedure well. UNIVERSAL PROTOCOL / SAFETY CHECKLIST Procedure to be Performed: Acupuncture Sign In: A Moment of CARE was completed. Personnel directly involved with the procedure wore the appropriate PPE (Personal Protective Equipment). Patient/Surrogate Stated/Verified: PATIENT VERIFIED(optional for EMERGENT procedures): Patient name, Date of , Relevant allergies, and The intended procedure Time Out Communication: Intended patient and procedure match the source documents. Consent documented and matches the intended procedure. Sign Out: SIGN OUT (optional for EMERGENT procedures): All instruments, equipment, possible retained foreign bodies accounted for. Trenton Hanson Provider Name: Trenton Hanson 25 Total minutes face to face time spent with patient Acupuncture and [place] herbal therapy are not a substitute for conventional medical diagnosis and treatment. Patient agrees that either: 1. A diagnostic exam has been performed by a physician or chiropractor within the last six months regarding the condition for which they are seeking acupuncture treatment. or 2. If no diagnostic exam by a physician or chiropractor has been done within the last six months regarding the condition for which patient is seeking treatment, the Processing Analyst, per [place] Law, recommends that this diagnostic exam be performed. documented in this encounter [facility] 01-23-2024 Note HNO ID: [id number] Author: RUSS WEBER, [facility]-PRESCHOOL ADVISER Service: ? Author Type: Speech Language Pathologist Type: Progress Notes Filed: 01/23/2024 14:14 Note Text: Episode Visit Count: 2 Therapist That Will Accept/Oversee The Plan Of Care: Russ Weber Start of Care Date: 01/09/24 Onset Date: 09/03/11 Plan of Care Certification Date: 01/09/24 Next Certification Due Date: 03/08/24 [facility]OR[facility] THERAPY SPEECH THERAPY TREATMENT NOTE IMPRESSION: Communication deficits identified: Dysarthria of speech Swallow Deficits Identified / Suspected: Oropharyngeal dysphagia Swallowing Precautions Recommendations: (although she is PO, free water protocal was recommended since pt states that she coughs on liquids. Suggested that pt and her begin to discuss various options for safety with PO intake, such as considering a combination of oral/ non-oral intake) Recommended Consults: (AAC assessment when pt is ready) Results and Recommendations Discussed With: Patient, Family PLAN: Planned Interventions, Frequency, and Duration: Current Frequency: 1x/month (or as needed) PLAN FOR NEXT VISIT: review PO intake and discuss AAC eval timeframe SUBJECTIVE: Patient is accompanied to therapy by her , Dieter. OBJECTIVE: MEASURES WITH LEVEL OF FUNCTION: Professional training and skilled instructions were provided as follows: Swallowing skills: Education provided on use of free water protocal and importance of oral hygiene, reviewed use of 3 second hold, use of efforfful and double swallows, observed intake of puree. Alternative-augmentative communications skills: reviewed Waldemar's use of text to speech belle and using her and daughter to assist her with communication, education about procedure for AAC evaluation and locations. TREATMENT: Swallow / Dysphagia (78130): Skilled Intervention: Instructed patient / caregiver on recommended compensatory strategies to maximize safety with oral intake while maintaining nutrition, hydration and medication stability, discussed non-oral feeding options and timeframes, completed therapeutic snack to assess safety with PO intake. Speech/Language Therapy (27678): Skilled Intervention: Provided and instructed patient on options and procedure for assessment for a speech-generating augmentative and alternative communication device. Billing: Speech Treatment (69559) and Dysphagia Treatment (61982) Total time / Length of visit: 45 minutes Session Start Time : 1100 Session Stop Time : 1145 Russ Weber, CCC-PRESCHOOL ADVISER [facility] 01-23-2024 History of Present illness Narrative Episode Visit Count: 2 Therapist That Will Accept/Oversee The Plan Of Care: Russ Weber Start of Care Date: 01/09/24 Onset Date: 09/03/11 Plan of Care Certification Date: 01/09/24 Next Certification Due Date: 03/08/24 [facility] REHABIL[facility]ATION [facility] SPORTS THERAPY SPEECH THERAPY TREATMENT NOTE IMPRESSION: Communication deficits identified: Dysarthria of speech Swallow Deficits Identified / Suspected: Oropharyngeal dysphagia Swallowing Precautions Recommendations: (although she is PO, free water protocal was recommended since pt states that she coughs on liquids. Suggested that pt and her begin to discuss various options for safety with PO intake, such as considering a combination of oral/ non-oral intake) Recommended Consults: (AAC assessment when pt is ready) Results and Recommendations Discussed With: Patient, Family PLAN: Planned Interventions, Frequency, and Duration: Current Frequency: 1x/month (or as needed) PLAN FOR NEXT VISIT: review PO intake and discuss AAC eval timeframe SUBJECTIVE: Patient is accompanied to therapy by her , Dieter. OBJECTIVE: MEASURES WITH LEVEL OF FUNCTION: Professional training and skilled instructions were provided as follows: Swallowing skills: Education provided on use of free water protocal and importance of oral hygiene, reviewed use of 3 second hold, use of efforfful and double swallows, observed intake of puree. Alternative-augmentative communications skills: reviewed Waldemar's use of text to speech belle and using her and daughter to assist her with communication, education about procedure for AAC evaluation and locations. TREATMENT: Swallow / Dysphagia (89699): Skilled Intervention: Instructed patient / caregiver on recommended compensatory strategies to maximize safety with oral intake while maintaining nutrition, hydration and medication stability, discussed non-oral feeding options and timeframes, completed therapeutic snack to assess safety with PO intake. Speech/Language Therapy (53304): Skilled Intervention: Provided and instructed patient on options and procedure for assessment for a speech-generating augmentative and alternative communication device. Billing: Speech Treatment (20497) and Dysphagia Treatment ([id number]) Total time / Length of visit: 45 minutes Session Start Time : 1100 Session Stop Time : 1145 Russ Weber CCC-PRESCHOOL ADVISER documented in this encounter [facility] 01-22-2024 Note HNO ID: [id number] Author: DAJA GOMEZ PTA Service: ? Author Type: Clarity Specialists Type: Progress Notes Filed: 01/22/2024 14:44 Note Text: Episode Visit Count: 27 Therapist That Will Accept/Oversee The Plan Of Care: Nathan Madrigal PT, MBA Start of Care Date: 10/03/23 Onset Date: 12/31/23 Plan of Care Certification Date: 12/28/23 Next Certification Due Date: 02/15/24 Patient Identified by Name and Date of : Yes REHABILITATION AND SPORTS THERAPY PHYSICAL THERAPY TREATMENT NOTE ASSESSMENT: Waldemar Hudson tolerated the session with no issues. She demonstrated tightness in bilateral knees this date R>L. She performed reaching out of DEE DEE without significant LOB noted and being able to self correct.. The patient will continue to benefit from ongoing skilled physical therapy to progress toward set goals. PLAN FOR NEXT VISIT: Continue LE passive stretching and LE/core strengthening exercises. SUBJECTIVE: Patient reported that she has been using the Voltaren 3-4 times daily and feels like it is helping her knee pain. Pain: Pain Pain Level: 2 Pain Location: Knee - Right Post Treatment Pain Post Treatment Pain Level: No Change OBJECTIVE MEASURES WITH LEVEL OF FUNCTION: No objective measures taken this date. TREATMENT: Therapeutic Exercise: 1: Seated forward stretch over yellow theraball with bilateral UE's and ball on therapist's lap in front of patient x 10 reps forward and then 10 reps each in scaption for stretching 2: Seated marching with band x 15 reps w/ pink band (Did not use the band this date) 5: Supine bridging 2 x 15 reps over yellow ball 6: Supine bent leg marching 2 x 15 reps alternating with LE rested on yellow ball 7: SAQ 2 x 15 reps over yellow ball each LE with assist 8: Supine lower trunk rotation with assist with bilateral LE rested on yellow therapy ball x 15 each direction 9: Partial curl ups with yellow ball rolled up her knees 2 x 10 11: Seated LAQ 2 x 15 reps each LE 12: Seated passing the yellow ball back in forth to therapist with reaching outside of DEE DEE and spotting her from behind for safety Skilled Intervention: Patient was educated in proper exercise technique and purpose for exercises. Skilled judgment was used in selection of appropriate interventions. Manual Therapy: 1: Passive stretching to each LE for hips flexion, abduction, hip ER and IR in flexion and hamstrings stretching, knees flexion/extension and bilateral calf stretches x 15 reps each. Skilled Intervention: Manual skills to improve joint mobility, ROM, and decrease pain. Utilized anatomy knowledge of the therapist, and assessment of patient's response to intervention. Billing Therapeutic Exercise Treatment Minutes: 30 Manual TherapyTreatment Minutes: 20 Skilled Treatment Time Minutes (timed and untimed codes): 50 Total Session Time (minutes): 60 Session Start Time : 1318 Session Stop Time : 1418 Daja Gomez [facility] 01-22-2024 History of Present illness Narrative Episode Visit Count: 27 Therapist That Will Accept/Oversee The Plan Of Care: Nathan Madrigal PT, ANABELLE Start of Care Date: 10/03/23 Onset Date: 12/31/23 Plan of Care Certification Date: 12/28/23 Next Certification Due Date: 02/15/24 Patient Identified by Name and Date of : Yes REHABILITATION AND SPORTS THERAPY PHYSICAL THERAPY TREATMENT NOTE ASSESSMENT: Waldemar Hudson tolerated the session with no issues. She demonstrated tightness in bilateral knees this date R>L. She performed reaching out of DEE DEE without significant LOB noted and being able to self correct.. The patient will continue to benefit from ongoing skilled physical therapy to progress toward set goals. PLAN FOR NEXT VISIT: Continue LE passive stretching and LE/core strengthening exercises. SUBJECTIVE: Patient reported that she has been using the Voltaren 3-4 times daily and feels like it is helping her knee pain. Pain: Pain Pain Level: 2 Pain Location: Knee - Right Post Treatment Pain Post Treatment Pain Level: No Change OBJECTIVE MEASURES WITH LEVEL OF FUNCTION: No objective measures taken this date. TREATMENT: Therapeutic Exercise: 1: Seated forward stretch over yellow theraball with bilateral UE's and ball on therapist's lap in front of patient x 10 reps forward and then 10 reps each in scaption for stretching 2: Seated marching with band x 15 reps w/ pink band (Did not use the band this date) 5: Supine bridging 2 x 15 reps over yellow ball 6: Supine bent leg marching 2 x 15 reps alternating with LE rested on yellow ball 7: SAQ 2 x 15 reps over yellow ball each LE with assist 8: Supine lower trunk rotation with assist with bilateral LE rested on yellow therapy ball x 15 each direction 9: Partial curl ups with yellow ball rolled up her knees 2 x 10 11: Seated LAQ 2 x 15 reps each LE 12: Seated passing the yellow ball back in forth to therapist with reaching outside of DEE DEE and spotting her from behind for safety Skilled Intervention: Patient was educated in proper exercise technique and purpose for exercises. Skilled judgment was used in selection of appropriate interventions. Manual Therapy: 1: Passive stretching to each LE for hips flexion, abduction, hip ER and IR in flexion and hamstrings stretching, knees flexion/extension and bilateral calf stretches x 15 reps each. Skilled Intervention: Manual skills to improve joint mobility, ROM, and decrease pain. Utilized anatomy knowledge of the therapist, and assessment of patient's response to intervention. Billing Therapeutic Exercise Treatment Minutes: 30 Manual TherapyTreatment Minutes: 20 Skilled Treatment Time Minutes (timed and untimed codes): 50 Total Session Time (minutes): 60 Session Start Time : 1318 Session Stop Time : 1418 Daja Gomez PTA documented in this encounter [facility] 01-18-2024 Note HNO ID: [id number] Author: NATHAN MADRIGAL PT Service: ? Author Type: Physical Therapist Type: Progress Notes Filed: 01/18/2024 17:04 Note Text: Episode Visit Count: 26 Therapist That Will Accept/Oversee The Plan Of Care: Nathan Madrigal PT, ANABELLE Start of Care Date: 10/03/23 Onset Date: 12/31/23 Plan of Care Certification Date: 12/28/23 Next Certification Due Date: 02/15/24 Patient Identified by Name and Date of : Yes REHABILITATION AND SPORTS THERAPY PHYSICAL THERAPY TREATMENT NOTE ASSESSMENT: Waldemar Hudson tolerated the session with no issues. She demonstrated ability to complete increased repetitions with bridging, supine bent leg lift and LAQ over yellow therapy ball today.The patient will continue to benefit from ongoing skilled physical therapy to progress toward set goals. PLAN FOR NEXT VISIT: SUBJECTIVE: Patient had a wheelchair evaluation on Sunday and felt that the seating was very comfortable. She will get the custom fit powered wheelchair in 4-6 weeks duration. She states that the R knee feels better today. Pain: Pain Pain Level: (Patient did not specify a pain level today) Pain Location: Knee - Right Post Treatment Pain Post Treatment Pain Level: 0 Post Treatment Pain Location: Knee - Right OBJECTIVE MEASURES WITH LEVEL OF FUNCTION: No objective measurements taken this date. TREATMENT: Therapeutic Exercise: 1: Seated forward stretch over yellow theraball with bilateral UE's and ball on therapist's lap in front of patient x 10 reps forward and then 10 reps each in scaption for stretching (Did not complete today) 2: Seated marching with band x 15 reps w/ pink band (Did not complete today) 3: Seated resisted adduction x 30 reps 4: Seated resisted abduction x 30 reps w/ pink (Did not complete today) 5: Supine bridging 2 x 15 reps over yellow ball (Increased repetitions) 6: Supine bent leg marching 2 x 15 reps alternating with LE rested on yellow ball (Increased repetitions) 7: SAQ 2 x 15 reps over yellow ball each LE with assist (Did not complete today) 8: Supine lower trunk rotation with assist with bilateral LE rested on yellow therapy ball x 15 each direction 9: Partial curl ups with yellow ball rolled up her knees 2 x 10 (Did not complete today) 10: Supine LAQ 2 x 15 reps with LE rested over yellow ball (Increased repetitions) Skilled Intervention: Skilled judgment was used in selection of appropriate interventions. Manual Therapy: 1: Passive stretching to each LE for hips flexion, abduction, hip ER and IR in flexion and hamstrings stretching, knees flexion/extension and bilateral calf stretches x 15 reps each. Skilled Intervention: Manual skills to improve joint mobility, ROM, and decrease pain. Utilized anatomy knowledge of the therapist, and assessment of patient's response to intervention. Billing Therapeutic Exercise Treatment Minutes: 30 Manual TherapyTreatment Minutes: 20 Skilled Treatment Time Minutes (timed and untimed codes): 50 Total Session Time (minutes): 56 Session Start Time : 1500 Session Stop Time : 1556 Nathan Madrigal PT, MBA [facility] 01-18-2024 History of Present illness Narrative Episode Visit Count: 26 Therapist That Will Accept/Oversee The Plan Of Care: Nathan Madrigal PT, MBA Start of Care Date: 10/03/23 Onset Date: 12/31/23 Plan of Care Certification Date: 12/28/23 Next Certification Due Date: 02/15/24 Patient Identified by Name and Date of : Yes REHABILITATION AND SPORTS THERAPY PHYSICAL THERAPY TREATMENT NOTE ASSESSMENT: Waldemar Hudson tolerated the session with no issues. She demonstrated ability to complete increased repetitions with bridging, supine bent leg lift and LAQ over yellow therapy ball today.The patient will continue to benefit from ongoing skilled physical therapy to progress toward set goals. PLAN FOR NEXT VISIT: SUBJECTIVE: Patient had a wheelchair evaluation on Sunday and felt that the seating was very comfortable. She will get the custom fit powered wheelchair in 4-6 weeks duration. She states that the R knee feels better today. Pain: Pain Pain Level: (Patient did not specify a pain level today) Pain Location: Knee - Right Post Treatment Pain Post Treatment Pain Level: 0 Post Treatment Pain Location: Knee - Right OBJECTIVE MEASURES WITH LEVEL OF FUNCTION: No objective measurements taken this date. TREATMENT: Therapeutic Exercise: 1: Seated forward stretch over yellow theraball with bilateral UE's and ball on therapist's lap in front of patient x 10 reps forward and then 10 reps each in scaption for stretching (Did not complete today) 2: Seated marching with band x 15 reps w/ pink band (Did not complete today) 3: Seated resisted adduction x 30 reps 4: Seated resisted abduction x 30 reps w/ pink (Did not complete today) 5: Supine bridging 2 x 15 reps over yellow ball (Increased repetitions) 6: Supine bent leg marching 2 x 15 reps alternating with LE rested on yellow ball (Increased repetitions) 7: SAQ 2 x 15 reps over yellow ball each LE with assist (Did not complete today) 8: Supine lower trunk rotation with assist with bilateral LE rested on yellow therapy ball x 15 each direction 9: Partial curl ups with yellow ball rolled up her knees 2 x 10 (Did not complete today) 10: Supine LAQ 2 x 15 reps with LE rested over yellow ball (Increased repetitions) Skilled Intervention: Skilled judgment was used in selection of appropriate interventions. Manual Therapy: 1: Passive stretching to each LE for hips flexion, abduction, hip ER and IR in flexion and hamstrings stretching, knees flexion/extension and bilateral calf stretches x 15 reps each. Skilled Intervention: Manual skills to improve joint mobility, ROM, and decrease pain. Utilized anatomy knowledge of the therapist, and assessment of patient's response to intervention. Billing Therapeutic Exercise Treatment Minutes: 30 Manual TherapyTreatment Minutes: 20 Skilled Treatment Time Minutes (timed and untimed codes): 50 Total Session Time (minutes): 56 Session Start Time : 1500 Session Stop Time : 1556 Nathan Madrigal PT, MBA documented in this encounter [facility] 01-17-2024 Note HNO ID: [id number] Author: CORI HOPE R Ac Service: ? Author Type: Diplomat of Acupuncture Type: Progress Notes Filed: 01/17/2024 17:10 Note Text: Waldemar Hudson a 68 year old female presents to the acupuncture clinic on 01/17/24 for a follow up visit. Patient identity confirmed by name and : Yes This is the 9 visit for the patient this year It has been 1 week(s) since the last acupuncture treatment. 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 We discussed trying Cryptolepsis as a natural herbal antibiotic approach to fight against Lyme. I provided patient with the product information. Hold off on taking Alfredo Delacruz Rogelio Gaytan until she finished baclofen. Patient noted her right knee pain was much improved for a few days following the previous acupuncture. Patient has been battling MS since 2012. Patient has history of Lyme disease, mold exposure and thyroid cancer. Thyroidism Trialed PT, dry needling, chiropractic, massage. PAIN ASSESSMENT: Currently experiencing pain Pain level (0 no pain at all to 10 being the worst): 4 OBJECTIVE: Physical Exam: Tenderness: knees and feet Pain with palpation: na ROM: limited ROM Orthopedic Tests: na Tightness: knees Divina/Trigger points: na Visual Inspection Discoloration: na Edema: no Gait/Ambulation: normal Ovalle: good Qi/Patient vitality: normal Alert Well-Groomed Normal Imaging reports Images on file See EPIC Images have been reviewed no TCM Tongue: NA TCM Pulse: thin and weak ASSESSMENT Patient presents with signs and symptoms consistent with the diagnosis. Patient would benefit from acupuncture therapy to address listed deficiencies and return to PLOF. Pt was educated on symptoms, prognosis, plan of care and activity modifications. Pt verbalized understanding and agreed to begin care. TCM Pattern: PLS due to Qi and blood deficiency. TCM Treatment Principle: Calm Ovalle. Promote smooth flow of Qi and blood. Open channel. Reduce pain. PLAN OF CARE Counseled patient on risks of acupuncture treatment including pain, infection, bleeding, and no relief of pain. The patient was positioned comfortably. There was no evidence of infection at the site of needle insertions. Acupuncture Treatment: Treatment/Needle Set 1, Supine: Points: Yin Gaytan, motor line 2 points bilaterally on the scalp, ear ovalle men, Jan Zenon, Ling Gu, Da Austen, SP9, R: SJ3, SI3 15 minutes face to face with patient for set 1 Treatment/Needle Set 2, Supine: Points: R: GB34, Esquivel Chi, SP9, Si MA points 3, Xi Dinh, SP10, He Ding, B: GB41, ST43 10 minutes face to face with patient for set 2 Calcium were retained for 30 minutes # of needles inserted: 34 # of needles withdrawn: 34 Adjunct techniques used: TDP Infrared Heat Lamp- Applied to Rt. Hip and right knee Patient tolerated the procedure well. UNIVERSAL PROTOCOL / SAFETY CHECKLIST Procedure to be Performed: Acupuncture Sign In: A Moment of CARE was completed. Personnel directly involved with the procedure wore the appropriate PPE (Personal Protective Equipment). Patient/Surrogate Stated/Verified: PATIENT VERIFIED(optional for EMERGENT procedures): Patient name, Date of , Relevant allergies, and The intended procedure Time Out Communication: Intended patient and procedure match the source documents. Consent documented and matches the intended procedure. Sign Out: SIGN OUT (optional for EMERGENT procedures): All instruments, equipment, possible retained foreign bodies accounted for. Trenton Hanson Provider Name: Trenton Hanson 25 Total minutes face to face time spent with patient Acupuncture and [place] herbal therapy are not a substitute for conventional medical diagnosis and treatment. Patient agrees that either: 1. A diagnostic exam has been performed by a physician or chiropractor within the last six months regarding the condition for which they are seeking acupuncture treatment. or 2. If no diagnostic exam by a physician or chiropractor has been done within the last six months regarding the condition for which patient is seeking treatment, the Processing Analyst, per [place] Law, recommends that this diagnostic exam be performed. [facility] 01-17-2024 History of Present illness Narrative Waldemar Hudson a 68 year old female presents to the acupuncture clinic on 01/17/24 for a follow up visit. Patient identity confirmed by name and : Yes This is the 9 visit for the patient this year It has been 1 week(s) since the last acupuncture treatment. 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 We discussed trying Cryptolepsis as a natural herbal antibiotic approach to fight against Lyme. I provided patient with the product information. Hold off on taking Alfredo Gaytan until she finished baclofen. Patient noted her right knee pain was much improved for a few days following the previous acupuncture. Patient has been battling MS since 2012. Patient has history of Lyme disease, mold exposure and thyroid cancer. Thyroidism Trialed PT, dry needling, chiropractic, massage. PAIN ASSESSMENT: Currently experiencing pain Pain level (0 no pain at all to 10 being the worst): 4 OBJECTIVE: Physical Exam: Tenderness: knees and feet Pain with palpation: na ROM: limited ROM Orthopedic Tests: na Tightness: knees Divina/Trigger points: na Visual Inspection Discoloration: na Edema: no Gait/Ambulation: normal [place]le: good Qi/Patient vitality: normal Alert Well-Groomed Normal Imaging reports Images on file See EPIC Images have been reviewed no TCM Tongue: NA TCM Pulse: thin and weak ASSESSMENT Patient presents with signs and symptoms consistent with the diagnosis. Patient would benefit from acupuncture therapy to address listed deficiencies and return to PLOF. Pt was educated on symptoms, prognosis, plan of care and activity modifications. Pt verbalized understanding and agreed to begin care. TCM Pattern: PLS due to Qi and blood deficiency. TCM Treatment Principle: Calm [place]le. Promote smooth flow of Qi and blood. Open channel. Reduce pain. PLAN OF CARE Counseled patient on risks of acupuncture treatment including pain, infection, bleeding, and no relief of pain. The patient was positioned comfortably. There was no evidence of infection at the site of needle insertions. Acupuncture Treatment: Treatment/Needle Set 1, Supine: Points: Yin Gaytan, motor line 2 points bilaterally on the scalp, ear ovalle men, Jan Zenon, Ling Gu, Da [place]en, SP9, R: SJ3, SI3 15 minutes face to face with patient for set 1 Treatment/Needle Set 2, Supine: Points: R: GB34, Esquivel Chi, SP9, Si MA points 3, Xi Dinh, SP10, He Ding, B: GB41, ST43 10 minutes face to face with patient for set 2 Calcium were retained for 30 minutes # of needles inserted: 34 # of needles withdrawn: 34 Adjunct techniques used: TDP Infrared Heat Lamp- Applied to Rt. Hip and right knee Patient tolerated the procedure well. UNIVERSAL PROTOCOL / SAFETY CHECKLIST Procedure to be Performed: Acupuncture Sign In: A Moment of CARE was completed. Personnel directly involved with the procedure wore the appropriate PPE (Personal Protective Equipment). Patient/Surrogate Stated/Verified: PATIENT VERIFIED(optional for EMERGENT procedures): Patient name, Date of , Relevant allergies, and The intended procedure Time Out Communication: Intended patient and procedure match the source documents. Consent documented and matches the intended procedure. Sign Out: SIGN OUT (optional for EMERGENT procedures): All instruments, equipment, possible retained foreign bodies accounted for. Trenton Hanson Provider Name: Trenton Hanson 25 Total minutes face to face time spent with patient Acupuncture and [place] herbal therapy are not a substitute for conventional medical diagnosis and treatment. Patient agrees that either: 1. A diagnostic exam has been performed by a physician or chiropractor within the last six months regarding the condition for which they are seeking acupuncture treatment. or 2. If no diagnostic exam by a physician or chiropractor has been done within the last six months regarding the condition for which patient is seeking treatment, the Processing Analyst, per [place] Law, recommends that this diagnostic exam be performed. documented in this encounter [facility] 01-17-2024 Note HNO ID: [id number] Author: JOAN PRIETO MD Service: ? Author Type: Physician Type: Progress Notes Filed: 01/17/2024 15:42 Note Text: Waldemar Hudson is being followed by the [facility] for her ALS diagnosis. Dr. Antonietta Alcaraz, who most recently saw the patient, is no longer employed by [facility]. As the ALS Team Outside Machinist Helper, I am now caring for her patients. In this context, I will sign the patient's power wheelchair prescription, based on the information available in the Face to Face visit dated 01/09/[address] Alcaraz. Joan Prieto MD [facility] 01-17-2024 History of Present illness Narrative Waldemar Hudson is being followed by the [facility] for her ALS diagnosis. Dr. Antonietta Alcaraz, who most recently saw the patient, is no longer employed by [facility]. As the ALS Team Outside Machinist Helper, I am now caring for her patients. In this context, I will sign the patient's power wheelchair prescription, based on the information available in the Face to Face visit dated 01/09/[address] Alcaraz. Joan Prieto MD documented in this encounter [facility] 01-16-2024 Note HNO ID: [id number] Author: RASHAUN PAREDES OT Service: ? Author Type: Occupational Therapist Type: Progress Notes Filed: 01/16/2024 16:32 Note Text: [facility] Occupational Therapy [address] [address] Dept: [phone] Dept Therapist That Will Accept/Oversee The Plan Of Care: Rashaun Paredes Start of Care Date: 01/09/24 Onset Date: 01/07/24 Plan of Care Certification Date: 01/09/24 Patient Identified by Name and Date of : Yes REHABILITATION AND SPORTS THERAPY OCCUPATIONAL THERAPY SEATING AND WHEELED MOBILITY EVALUATION Persons Present at Evaluation: patient and spouse Vendor Present: [employer] SUBJECTIVE: Waldemar Hudson is a 68 year old female seen today for wheelchair evaluation. Patient Goals: patient is here to obtain a wheelchair or power mobility device to increase function in the home environment. Current activities in the home and community that Waldemar Hudson feels are mobility limitations and would be improved with the use of a mobility device: improved access to areas of her home within a reasonable time frame (i.e. bathroom to reduce potential for moisture related skin injuries), reduced risk of pressure sores/ulcers/injuries/wounds, reduced fall risk, reduced edema, improved postural stability, improved cardio-pulmonary and swallowing/digestive function, improved ability to re-engage in ADL's and IADL's from wheelchair level, improved ability to engage in the community to attend medical appointments, and meets transportation needs. Intake Information: Prescription present Previous Treatment: Physical Therapy , Aquatic PT, Occupational Therapy, Speech Therapy , NSAIDs , Heat Pain Level: 0 Post Treatment Pain Level: No Change OBJECTIVE MEASURES WITH LEVEL OF FUNCTION: PHYSICAL STATUS: Height: 5' 7 Weight: 160lbs Communication:speech impaired, but intelligible to patient listener Skin Integrity: intact Cardio-Respiratory: How far does the patient demonstrate that she can walk and/or self propel a manual wheelchair before becoming short of breath? ~15 feet with walker What ADL's make her short of breath? bathing, transfers, and ambulation/mobility Vascular: Does the patient have edema of the UE/LE's: Yes The patient has moderate edema present in bilateral LE's If yes, what treatments have been attempted? Elevation, compression socks FUNCTIONAL STATUS: Eating: independent and from seated position Upper body Dressing: min/mod assistance, from seated position, and increased time and effort Lower body Dressing: min/mod assistance, from seated position, and increased time and effort Grooming: independent and from seated position Toileting: modified independent and equipment used: grab bars and comfort height toilet Bathing: min/mod assist and equipment used: tub bench, grab bars, and hand held shower Instrumental Activities of Daily Living: Requires assistance for: cooking, shopping, laundry, and cleaning Transfers: Min A Method: Short Ambulatory Ambulation: impaired: uses walker, not functional for daily routine, labored effort, and history of falls, frequency x2 in the past year How far can she walk without stopping before her symptoms interfere? ~15 feet with walker Why is her current assistive device no longer sufficient for mobility in the home? Patient has been ambulating in her home with a wheeled walker and minimal assist. However, due to considerable and progressive BLE weakness, BLE spasticity, BLE edema, and initiation of proximal UE weakness with changes in overall coordination affecting effective grasp on walker; patient now requires power mobility to maintain independence and reduce fall risk. Progression of ambulation difficulty over time: Prior to ALS diagnosis, pt. able to ambulate independently. With onset of BLE weakness; patient transitioned to the use of a walker. Patient has been ambulating in her home with a wheeled walker and minimal assist. However, due to considerable and progressive BLE weakness, BLE spasticity, BLE edema, and initiation of proximal UE weakness with changes in overall coordination affecting effective grasp on walker; patient now requires power mobility to maintain independence and reduce fall risk. Time spent in wheelchair: >8 hours per day Transportation: SUV and travels as a passenger LIVING SITUATION: Lives with in a multi-level condo Entrance/Exit used: 15 steps to enter, looking into ramping/mechanical elevator options at this time CURRENT WHEELCHAIR EQUIPMENT: Privately purchased portable feather weight wheelchair SEATING EVALUATION (edge of mat / in current wheelchair): Sitting posture: posterior pelvic tilt and Head/neck forward flexion Sitting Balance: Good: able to maintain balance without support, accepts min/mod challenge, and can shift weight although limitations are present. Pelvic (more content not included)... [facility] 01-16-2024 History of Present illness Narrative [facility] Occupational Therapy [address] [address] Dept: [phone] Dept Therapist That Will Accept/Oversee The Plan Of Care: Rashaun Paredes Start of Care Date: 01/09/24 Onset Date: 01/07/24 Plan of Care Certification Date: 01/09/24 Patient Identified by Name and Date of : Yes REHABILITATION AND SPORTS THERAPY OCCUPATIONAL THERAPY SEATING & WHEELED MOBILITY EVALUATION Persons Present at Evaluation: patient and spouse Vendor Present: [employer] SUBJECTIVE: Waldemar Hudson is a 68 year old female seen today for wheelchair evaluation. Patient Goals: patient is here to obtain a wheelchair or power mobility device to increase function in the home environment. Current activities in the home and community that Waldemar Hudson feels are mobility limitations and would be improved with the use of a mobility device: improved access to areas of her home within a reasonable time frame (i.e. bathroom to reduce potential for moisture related skin injuries), reduced risk of pressure sores/ulcers/injuries/wounds, reduced fall risk, reduced edema, improved postural stability, improved cardio-pulmonary and swallowing/digestive function, improved ability to re-engage in ADL's and IADL's from wheelchair level, improved ability to engage in the community to attend medical appointments, and meets transportation needs. Intake Information: Prescription present Previous Treatment: Physical Therapy , Aquatic PT, Occupational Therapy, Speech Therapy , NSAIDs , Heat Pain Level: 0 Post Treatment Pain Level: No Change OBJECTIVE MEASURES WITH LEVEL OF FUNCTION: PHYSICAL STATUS: Height: 5' 7 Weight: 160lbs Communication:speech impaired, but intelligible to patient listener Skin Integrity: intact Cardio-Respiratory: How far does the patient demonstrate that she can walk and/or self propel a manual wheelchair before becoming short of breath? ~15 feet with walker What ADL's make her short of breath? bathing, transfers, and ambulation/mobility Vascular: Does the patient have edema of the UE/LE's: Yes The patient has moderate edema present in bilateral LE's If yes, what treatments have been attempted? Elevation, compression socks FUNCTIONAL STATUS: Eating: independent and from seated position Upper body Dressing: min/mod assistance, from seated position, and increased time and effort Lower body Dressing: min/mod assistance, from seated position, and increased time and effort Grooming: independent and from seated position Toileting: modified independent and equipment used: grab bars and comfort height toilet Bathing: min/mod assist and equipment used: tub bench, grab bars, and hand held shower Instrumental Activities of Daily Living: Requires assistance for: cooking, shopping, laundry, and cleaning Transfers: Min A Method: Short Ambulatory Ambulation: impaired: uses walker, not functional for daily routine, labored effort, and history of falls, frequency x2 in the past year How far can she walk without stopping before her symptoms interfere? ~15 feet with walker Why is her current assistive device no longer sufficient for mobility in the home? Patient has been ambulating in her home with a wheeled walker and minimal assist. However, due to considerable and progressive BLE weakness, BLE spasticity, BLE edema, and initiation of proximal UE weakness with changes in overall coordination affecting effective grasp on walker; patient now requires power mobility to maintain independence and reduce fall risk. Progression of ambulation difficulty over time: Prior to ALS diagnosis, pt. able to ambulate independently. With onset of BLE weakness; patient transitioned to the use of a walker. Patient has been ambulating in her home with a wheeled walker and minimal assist. However, due to considerable and progressive BLE weakness, BLE spasticity, BLE edema, and initiation of proximal UE weakness with changes in overall coordination affecting effective grasp on walker; patient now requires power mobility to maintain independence and reduce fall risk. Time spent in wheelchair: >8 hours per day Transportation: SUV and travels as a passenger LIVING SITUATION: Lives with in a multi-level condo Entrance/Exit used: 15 steps to enter, looking into ramping/mechanical elevator options at this time CURRENT WHEELCHAIR EQUIPMENT: Privately purchased portable feather weight wheelchair SEATING EVALUATION (edge of mat / in current wheelchair): Sitting posture: posterior pelvic tilt and Head/neck forward flexion Sitting Balance: Good: able to maintain balance without support, accepts min/mod challenge, and can shift weight although limitations are present. Pelvic Mobility Anterior/Posterior: flexible Rotation: flexible Obliquity: flexible LOWER EXTREMITY FUNCTION ROM: Hip flexion 90 degrees R 90 degrees L Knee flexion 90 degrees R 90 degrees L Ankle: Right: neutral R Left: neutral L Muscle Tone: mild spasticity resulting in difficulty with full RLE knee extension (lacking ~25 to 30 degrees) Muscle Strength Limitations: RIGHT LEFT Hip flexion 4+/5 4+/5 Hip extension 4/5 4+/5 Knee flexion 4/5 4+/5 Knee extension 3-/5 4+/5 Ankle dorsiflexion 4/5 4+/5 Ankle plantarflexion 4-/5 4+/5 LE Sensation: WFL UPPER EXTREMITY FUNCTION: Right or Left Handed: Left ROM Limitations: WFL Muscle Tone: normal Muscle Strength Limitations: RIGHT LEFT Shoulder flexion 4+/5 4+/5 Shoulder abduction 4+/5 4+/5 Elbow flexion 5/5 5/5 Elbow extension 5/5 5/5 Wrist flexion 5/5 5/5 Wrist extension 5/5 5/5 Hr Coordinator strength 5/5 5/5 Hand Dexterity: Hypertrophy of bilateral thenar eminences and reduced palmar arches. Starting with flexion contracture of L 2nd digit and minimally at R 5th digit UE sensation: WFL Head Control and Position Control: good Position: forward flexion Head Control Against [place]: able to maintain line of sight against gravity PRESSURE MANAGEMENT ISSUES RISK FACTORS PRESENT: 1. Sensory perception: no impairment 2. Moisture: occasionally incontinent of bladder 3. Activity: walks occasionally 4. Mobility: very limited 5. Nutrition: probably adequate 6. Friction and Shear: potential problem RISK OF SKIN BREAKDOWN: Moderate Risk Current method of Pressure Relief: significant difficulty with position changes / non-functional ANTHROPOMETRIC DATA: Chest Width: 12 inches Chest Depth : 7 inches Shoulder Width: 16 inches Hip Width: 17 inches Head to Buttocks: 32.5 inches Shoulder to Buttocks: 20 inches Scapula to Buttocks: 14 inches Buttocks to Knee: 22 inches Knee to Foot: 17 inches Elbow Height: 8 inches Education: Education Learning Preferences: Demonstration, Explanation, Performance, Printed Materials Barriers: None Learning/educational needs: Lifestyle changes, Health promotion, Safety, Home exercise program, Plan of Care, Changes in Plan of Care, Posture, Brace Fit, Body Mechanics Education Provided: Yes, see treatment interventions for education provided Education Provided To: Patient, Family Education Mode/Type: Demonstration, Explanation/Discussion, Literature/Printed Materials, Performance, Teach Back Response to Education/Teach Back: Return Demonstration, States/Identifies TREATMENT: Evaluation Wheelchair Management (54928): Discussion of each recommended seating function / equipment and risks and benefits of each described component as follows: Discussed utilization of tilt/recline feature to promote pressure relief to promote skin integrity and prevent pressure wounds/sores/ulcers/injuries and allow for independence in access to home or within the community. This also improves overall head control and associated cardio-pulmonary and swalling/digestive functioning and accommodates spasticity of BLE's by opening pelvic hip joint. Discussed utilization of elevating foot feature to prevent any potential for contracture/deformity associated with neuro-degenerative disease and accommodate for spasticity and edema Discussed benefits of elevate feature to promote improved engagement within the home and community and to promote improved transfer function via anterior tilt. Discussed use of alternative style headrest with forehead strap in order to foster improved line of sight, postural alignment, and cardio-pulmonary and swallowing/digestive functioning. Discussed power features to promote access to environment and safety features such as seat belt All inquires answered at this time Skilled Intervention: Professional judgment used for assessment of appropriate prescription of new wheelchair and components, education on ergonomics with wheelchair including proper sitting posture, education on injury prevention and energy conservation, education on pressure relief strategies to prevent pressure sores, education on proper posture with wheelchair sitting including upright posture, and education on use of/management of all wheelchair parts to ensure the patient understands the use of current device. CLINICAL CRITERIA / ALGORITHM SUMMARY (for any additional clarification refer to evaluation above) 1) Is there a mobility limitation causing an inability to safely perform one or more Activities of Daily Living (ADL) in the home? YES The mobility limitation prevents her from completing one or more MRADL's within a reasonable time frame. 2) Are there cognitive or sensory deficits (Awareness/judgment/vision/etc.) that limit the user to safely perform one or more ADL's in the home? NO 3) Does the user demonstrate the ability or potential ability and willingness to safely use the mobility assistive device? YES 4) Can the mobility deficit be sufficiently resolved with only the use of a cane or walker? NO What are the reasons Waldemar Hudson could not or should not use a cane or walker: Patient has been ambulating in her home with a wheeled walker and minimal assist. However, due to considerable and progressive BLE weakness, BLE spasticity, BLE edema, and initiation of proximal UE weakness with changes in overall coordination affecting effective grasp on walker; patient now requires power mobility to maintain independence and reduce fall risk. What are the reasons Waldemar Hudson could not or should not use an optimally configured manual wheelchair: The patient is unable to functionally self-propel an optimally configured manual w/c to perform MRADL's in the home due to significant weakness in the hands and/or UE, impaired coordination in the hand and/or UE, impaired cardio-respiratory status, and significant exertional fatigue due to impaired neurological status. What are the reasons Waldemar Hudson could not or should not use a scooter: The patient is unable to maintain postural stability and position in scooter seating due to trunk weakness and/or balance. Scooter seating cannot be modified. , The patient is unable to operate tiller steering due to upper extremity weakness or dysfunction. , The patient's home does not provide adequate access, maneuvering space and terrain for the operation of a scooter. , The patient requires power seating which is not available on a scooter , and A power wheelchair is controlled by a joystick and can be modified for a variety of seating needs due to disease progression. 5) Does the user's environment support the use of a power wheelchair? YES 6) Does the user have sufficient stability, upper/lower extremity function, or other physical and mental capabilities to operate the recommended equipment? YES 7) Will the patient willingly use this equipment in the home on a regular basis? YES The use of a power wheelchair will significantly improve the patient's ability to participate in MRADL's in the home and provide an independent means of mobility. Waldemar Hudson with utilize the recommended mobility device to improve the following functions in the home: bathing, transfers, and ambulation/mobility This Document is to serve as a Statement of Medical Necessity and prescription for the following durable medical equipment: WHEELCHAIR SPECIFICATIONS NEEDED: Group 3 Power Quantum Stretto TYPE/MODEL Center wheel drive SEATING FUNCTIONS --power reclining back - Decreases fatigue associated with increased muscle tone, allows the patient to be positioned in a recumbent position several times per day, increases sitting tolerance, facilitates even pressure distribution and weight shifting, assists with respiratory function, can improve the client's line of sight, facilitates reduction of lower extremity edema when used with elevating leg rests, reduce caregiver hours required to promote independence. --power tilt system - Independent performance of weight shifts and postural changes, maintains positioning provided by seat and back support surfaces, assists with reduction of spasticity, decreases fatigue associated with increased muscle tone, assists reduction on lower extremity edema when used with elevating leg rests, can facilitate swallowing and digestive functions, enhance respiratory process by lengthening the trunk, improve patient's line of sight, reduce caregiver hours required to promote independence. --power elevating legrests - The patient has significant edema of the lower extremities, elevating leg rests are a necessary component for a reclining back, and inability to use manual legrests. --swing away / retractable joystick and hardware - to allow for improved transfers and better accessibility to tables for feeding --power elevate - improves line of sight within the community and reduces caregiver burden while engaging in ADL's such as dressing of patient while seated in chair as well as for ideal transfer height to all surfaces for safety and reduction of caregiver burden SEAT WIDTH: 17 inches SEAT DEPTH: 21 inches BACKREST INSERTS contoured backrest - to promote postural and pelvic alignment and prevent further postural deformities. ARMRESTS: adjustable height - to aid the optimal positioning of the upper extremities and support of the trunk ; requires an arm height that is different than that available using non-adjustable arms full length to assistance with transfers FRONT RIGGING elevating/articulating - the patient has significant edema of the lower extremities and elevating leg rests are a necessary component for a reclining back flip down foot platform with width extension SEAT CUSHION / OR SEATING INSERTS TruComfort SPP2 max contour - to promote proper pelvic and BLE alignment for even weight distribution and maximal pressure relief to prevent pressure ulcers. ACCESSORIES auto style seat belt - will stabilize the pelvis and aids in prevention of sliding out of the chair. tie down modification - patient requires transportation to physician's appointments. In the event of impact or sudden braking, these will hold the wheelchair and patient securely. Matrx Lucho 4 point headrest with forehead strap: for head and neck support when using tilt/recline functions and due to forward neck flexion due to progressive weakness adjustable/removable hardware for headrest: for optimal positioning of head/neck and as caregiver assist for overall patient positioning in wheelchair, and to allow removal for patient transportation BATTERIES: group 22 gel batteries - these batteries are to power the wheelchair and any seating components ELECTRONICS: MULTIPLE DRIVE JOYSTICK: can control ALL power functions through the joystick, MULTIPLE MOTOR CONTROLLER / INTERFACE BOX: communication from joystick to power seat functions, EXPANDABLE CONTROLS: programmable controls for speed, chair performance, and to access alternative driving controls, HARNESS: to interface motor to electronics; the wheelchair will not operate without this harness, and ATTENDANT CONTROLLER: in order to allow for efficient maneuverability to load/unload into handicap accessible vehicle pt. and spouse planning to purchase as well as improved access within environmental constraints. Length of Need: Lifetime/Chronic Potential cost to patient was discussed with vendor present. The physical/occupational therapist, physician, and facility does not have any financial relationship with the vendor or supplier of the equipment being recommended today in this evaluation. PLAN OF CARE: SUMMARY/ASSESSMENT: Waldemar Hudson presents with a diagnosis of PLS resulting in the following impairments BLE edema, BLE spasticity, BUE and BLE weakness, impaired coordination, impaired postural stability including head/neck weakness, impaired cardio-pulmonary functioning, impaired communication, and impaired swallowing/digestive functioning negatively impacting bathing, transfers, and ambulation/mobility. These deficits require a power wheelchair as mentioned above to participate in home based activities. Additionally, this equipment will allow community access and mobility. Without this device or a delay in obtaining this equipment will result in impaired access to areas of her home within a reasonable time frame (i.e. bathroom which increases potential for moisture related skin injuries), increased risk of pressure sores/ulcers/injuries/wounds, increased fall risk, increased edema, impaired postural stability, impaired cardio-pulmonary and swallowing/digestive function, impaired ability to engage in ADL's and IADL's, impaired ability to engage in the community to attend medical appointments, and does not meet transportation needs. Prognosis: Good Good due to: current objective clinical presentation, good support system/ coping skills Goals for Episode of Care created on Start of Care Date: 01/09/24 through Time Frame for Goals and Treatment : 03/10/24 GOALS TO BE ACCOMPLISHED THROUGH APPROPRIATE WHEELCHAIR AND SEATING: Upgrade postural/truncal stability to increase function Pressure relief to deter, hinder, prevent decubitus ulcers Accommodate deformity to allow upright sitting Provide independent means of mobility to compensate for lost ambulation Increase sitting tolerence; decrease time in bed Inhibit abnormal spasticity Improve functional level Improve head position/visual field Modularity of equipment to allow for disease progression and/or growth/weight gain Increase ROM, maintain skeletal alignment prevent deformities Improve caregiving tasks Meet transportation needs Planned Interventions, Frequency, and Duration: Clinical Therapy assessment for wheelchair needs completed today. Patient will follow up directly with vendor for the delivery of the wheelchair. Current Frequency: 1 visit Duration: 1 visit Total Number of Visits Planned: 1 Patient to be see for Planned Treatment Interventions: Patient/Family/Caregiver Education, Functional training (Wheelchair Management) Patient demonstrates good understanding of plan of care and treatment. The above goals and plan of care were discussed and agreed upon by patient/family. Date of last physician visit to determine need: 01/09/24 TREATMENT: Wheelchair Management: 1: Patient trialed propelling of group 3 power wheelchair Madelyn Hinojosa within [facility] facility with noted good environmental obstacle negotiation and safety during propulsion using R joystick. Min A SPT required for transfer to/from w/c and mat. Patient/family educated on all aspects of wheelchair evaluation, process, timeframe, insurance, and her role within process. All education completed regarding various wheelchair part management and safety features. Discussed effective ways to foster entry/exit from home including intent to insert elevator which they already have a shaft for as well as options for transport vehicles. Good comprehension noted with no further questions at this time. Skilled Intervention: Professional judgment used for assessment of appropriate prescription of new wheelchair and components, education on ergonomics with wheelchair including proper sitting posture, education on injury prevention and energy conservation, education on pressure relief strategies to prevent pressure sores, education on proper posture with wheelchair sitting including upright posture, and education on use of/management of all wheelchair parts to ensure the patient understands the use of current device. Billing Wheelchair Management Treatment Minutes: 57 Skilled Treatment Time Minutes (timed and untimed codes): 57 Total Session Time (minutes): 57 Session Start Time : 1346 Session Stop Time : 1443 Date: Rashaun Paredes OT I agree with the above evaluation, assessment, and plan of care for Waldemar Hudson. Date: (Medicare and Medicaid do not allow electronic signatures for wheelchairs) Joan Prieto MD documented in this encounter [facility] 01-15-2024 Note HNO ID: [id number] Author: NATHAN MADRIGAL PT Service: ? Author Type: Physical Therapist Type: Progress Notes Filed: 01/15/2024 14:38 Note Text: Episode Visit Count: 25 Therapist That Will Accept/Oversee The Plan Of Care: Nathan Madrigal PT, ANABELLE Start of Care Date: 10/03/23 Onset Date: 12/31/23 Plan of Care Certification Date: 12/28/23 Next Certification Due Date: 02/15/24 Patient Identified by Name and Date of : Yes REHABILITATION AND SPORTS THERAPY PHYSICAL THERAPY TREATMENT NOTE ASSESSMENT: Waldemar Hudson tolerated the session with fatigue and decreased symptoms. She demonstrated improved R knee extension stretching and R hip ER/IR stretching with less hypertonia noted today. The patient will continue to benefit from ongoing skilled physical therapy to progress toward set goals. PLAN FOR NEXT VISIT: Continue LE passive stretching and LE/core strengthening exercises. SUBJECTIVE: Patient states that her R knee pain is 4 out of 10 today. She has been to the [facility]. Patient had R eye cataract surgery yesterday. She was also started on Baclofen. She states that this has caused some side effects with increased R knee inflammation and chills. Pain: Pain Pain Level: 4 Pain Location: Knee - Right Post Treatment Pain Post Treatment Pain Level: 0 Post Treatment Pain Location: Knee - Right OBJECTIVE MEASURES WITH LEVEL OF FUNCTION: No objective measurements taken this date. TREATMENT: Therapeutic Exercise: 1: Seated forward stretch over yellow theraball with bilateral UE's and ball on therapist's lap in front of patient x 10 reps forward and then 10 reps each in scaption for stretching (Did not completed today) 2: Seated marching with band x 15 reps w/ pink band 3: Seated resisted adduction x 30 reps 4: Seated resisted abduction x 30 reps w/ pink 5: Supine bridging 2 x 10 reps over yellow ball 6: Supine bent leg marching 2 x 10 reps alternating with LE rested on yellow ball 7: SAQ 2 x 10 reps over yellow ball each LE with assist 8: Supine lower trunk rotation with assist with bilateral LE rested on yellow therapy ball x 15 each direction 9: Partial curl ups with yellow ball rolled up her knees 2 x 10 (Did not complete today) 10: Supine LAQ 2 x 10 reps with LE rested over yellow ball Skilled Intervention: Skilled judgment was used in selection of appropriate interventions. Manual Therapy: 1: Passive stretching to each LE for hips flexion, abduction, hip ER and IR in flexion and hamstrings stretching, knees flexion/extension and bilateral calf stretches x 15 reps each. Skilled Intervention: Manual skills to improve joint mobility, ROM, and decrease pain. Utilized anatomy knowledge of the therapist, and assessment of patient's response to intervention. Billing Therapeutic Exercise Treatment Minutes: 31 Manual TherapyTreatment Minutes: 20 Skilled Treatment Time Minutes (timed and untimed codes): 51 Total Session Time (minutes): 51 Session Start Time : 1335 Session Stop Time : 1426 Nathan Madrigal PT, MBA [facility] 01-15-2024 History of Present illness Narrative Episode Visit Count: 25 Therapist That Will Accept/Oversee The Plan Of Care: Nathan Madrigal PT, MBA Start of Care Date: 10/03/23 Onset Date: 12/31/23 Plan of Care Certification Date: 12/28/23 Next Certification Due Date: 02/15/24 Patient Identified by Name and Date of : Yes REHABILITATION AND SPORTS THERAPY PHYSICAL THERAPY TREATMENT NOTE ASSESSMENT: Waldemar Hudson tolerated the session with fatigue and decreased symptoms. She demonstrated improved R knee extension stretching and R hip ER/IR stretching with less hypertonia noted today. The patient will continue to benefit from ongoing skilled physical therapy to progress toward set goals. PLAN FOR NEXT VISIT: Continue LE passive stretching and LE/core strengthening exercises. SUBJECTIVE: Patient states that her R knee pain is 4 out of 10 today. She has been to the [facility]. Patient had R eye cataract surgery yesterday. She was also started on Baclofen. She states that this has caused some side effects with increased R knee inflammation and chills. Pain: Pain Pain Level: 4 Pain Location: Knee - Right Post Treatment Pain Post Treatment Pain Level: 0 Post Treatment Pain Location: Knee - Right OBJECTIVE MEASURES WITH LEVEL OF FUNCTION: No objective measurements taken this date. TREATMENT: Therapeutic Exercise: 1: Seated forward stretch over yellow theraball with bilateral UE's and ball on therapist's lap in front of patient x 10 reps forward and then 10 reps each in scaption for stretching (Did not completed today) 2: Seated marching with band x 15 reps w/ pink band 3: Seated resisted adduction x 30 reps 4: Seated resisted abduction x 30 reps w/ pink 5: Supine bridging 2 x 10 reps over yellow ball 6: Supine bent leg marching 2 x 10 reps alternating with LE rested on yellow ball 7: SAQ 2 x 10 reps over yellow ball each LE with assist 8: Supine lower trunk rotation with assist with bilateral LE rested on yellow therapy ball x 15 each direction 9: Partial curl ups with yellow ball rolled up her knees 2 x 10 (Did not complete today) 10: Supine LAQ 2 x 10 reps with LE rested over yellow ball Skilled Intervention: Skilled judgment was used in selection of appropriate interventions. Manual Therapy: 1: Passive stretching to each LE for hips flexion, abduction, hip ER and IR in flexion and hamstrings stretching, knees flexion/extension and bilateral calf stretches x 15 reps each. Skilled Intervention: Manual skills to improve joint mobility, ROM, and decrease pain. Utilized anatomy knowledge of the therapist, and assessment of patient's response to intervention. Billing Therapeutic Exercise Treatment Minutes: 31 Manual TherapyTreatment Minutes: 20 Skilled Treatment Time Minutes (timed and untimed codes): 51 Total Session Time (minutes): 51 Session Start Time : 1335 Session Stop Time : 1426 Nathan Madrigal PT, ANABELLE documented in this encounter [facility] 01-11-2024 Note HNO ID: [id number] Author: ?, ?, ? Service: ? Author Type: ? Type: Progress Notes Filed: 01/11/2024 17:06 Note Text: POPULATION HEALTH NAVIGATION OUTREACH Action/FYI [place] Support: Called pt to schedule an appt in Pain Management. Lvm for pt to call [phone] for scheduling. Reason for Outreach Care Gap/HCC or Scheduling Wellness Visits Care Gaps due: Specialty Scheduling Patient Contacted: Unable or unnecessary to reach patient: Left message [email or web address] message sent Navigation Signature: Claudia Khalil Brett January 11, 2024 5:05 PM [facility] 01-11-2024 History of Present illness Narrative POPULATION HEALTH NAVIGATION OUTREACH Action/FYI AC [place] Support: Called pt to schedule an appt in Pain Management. Lvm for pt to call [phone] for scheduling. Reason for Outreach Care Gap/HCC or Scheduling Wellness Visits Care Gaps due: Specialty Scheduling Patient Contacted: Unable or unnecessary to reach patient: Left message TagSeats message sent Navigation Signature: Claudia Beal January 11, 2024 5:05 PM documented in this encounter [facility] 01-11-2024 Note Patient Outreach (NE TNAV) WALDEMAR HUDSON ([id number]) 1955 F Date Time Provider Department 01/11/24 NO PCP NETNAV During your visit today, we recorded the following information about you: Claudia Beal 01/11/2024 5:06 PM Signed POPULATION HEALTH NAVIGATION OUTREACH Action/[facility] Support: Called pt to schedule an appt in Pain Management. Lvm for pt to call [phone] for scheduling. Reason for Outreach Care Gap/HCC or Scheduling Wellness Visits Care Gaps due: Specialty Scheduling Patient Contacted: Unable or unnecessary to reach patient: Left message TagSeats message sent Navigation Signature: Claudia Beal January 11, 2024 5:05 PM Allergies As of Date: 01/11/2024 Noted Allergy Reaction MALARONE (ATOVAQUONE-PROGUANIL) 09/10/2015 4 - Hives THIMERSOL (THIMEROSAL) 04/26/2009 Comments: Makes eyes red- thimerosal in contacts Date Reviewed: 01/09/2024 Reviewed by: Boris Walters RD - Fully Assessed Prescriptions as of 01/11/2024 - baclofen 10 mg tablet Take 0.5 tablets by mouth three times a day for 14 days, THEN 1 tablet three times a day. - levothyroxine (SYNTHROID) 112 mcg tablet - NUEDEXTA 20-10 mg capsule Take 1 capsule by mouth two times a day. - nystatin (MYCOSTATIN, NILSTAT) 500,000 unit tab Take 2 tablets by mouth three times a day with meals. - TherBiotic Complete [address] Ct[address] ([place]laire/Prothera) Take 1 capsule by mouth once daily. - itraconazole 0.5 % (CPD) 1-2 sprays to each nostril twice daily - Fish Oil-[place]-3 Fatty Acids 300-1,000 mg cap Take by mouth. - Meriva-SR (Monae) decrease inflammation/pain/gut healing Take 1-2 capsules two times daily Problem List As Of Date 01/11/2024 Noted Resolved PERS HX OF THYROID MALIGNANCY [Z85.850] 05/24/2005 ESOPHAGEAL REFLUX [K21.9] 05/24/2005 FX METATARSAL-CLOSED [S92.309A] 07/12/2005 MALIGN NEOPL THYROID [C73] 11/12/2005 CHOLELITH W CHOLECYS NEC [K80.10] 01/25/2006 GASTRITIS ANTRAL( W/O Hemorrhage) [K29.60] 03/09/2006 SPRAIN SHOULDER/ARM NOS [CXX0222] 06/20/2006 FX PHALANX, FOOT-CLOSED [S92.919A] 08/13/2006 DYSMETABOLIC SYNDROME X [E88.810] 05/21/2007 SPRAIN NOS [T14.8XXA] 08/19/2007 Congenital pes planus [Q66.50] 02/27/2011 Skin lesion [L98.9] 02/28/2011 Other musculoskeletal symptoms referable to anna*07/14/2013 Special screening for malignant neoplasms, colo*10/01/2014 Dysphagia, unspecified(787.20) [R13.10] 10/01/2014 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 GERD without esophagitis [K21.9] 09/06/2016 History of thyroid cancer [Z85.850] 09/06/2016 Hypothyroidism [E03.9] 09/06/2016 Foot cramps [R25.2] 09/06/2016 Menopausal and postmenopausal disorder [N95.9] 09/06/2016 Fatigue [R53.83] 09/06/2016 Vitamin D deficiency [E55.9] 09/06/2016 Rectal itching [L29.0] 02/26/2017 Sleep disturbance [G47.9] 04/22/2018 Impaired ambulation [R26.2] 10/03/2023 Muscle spasticity [M62.838] 10/03/2023 Impaired flexibility of lower extremity [R29.89*10/03/2023 Abnormality of gait [R26.9] 10/03/2023 Right leg pain [M79.604] 10/03/2023 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 Author Type: Diplomat of Acupuncture Type: Progress Notes Filed: 01/10/2024 16:14 Note Text: Waldemar Hudson a 68 year old female presents to the acupuncture clinic on 01/10/24 for a follow up visit. Patient identity confirmed by name and : Yes This is the 8 visit for the patient this year It has been 1 week(s) since the last acupuncture treatment. Last treatment date: 01/03/2024 Initial Acupuncture treatment date: 11/12/2023 Chief Complaint: Primary lateral sclerosis, right knee pain, muscle spasm SUBJECTIVE The right knee pain is provoked with any type of weight bearing activity. She still experiences random onset of muscle spasms in lower limbs. She would get tenderness with touch or pressure made over the right knee. We discussed trying a herbal supplement, Roberto Booker Jayme Rogelio Gaytan for her knee pain and muscle spasms in lower extremities. All the instruction materials has been provided to patient today. Patient has been battling MS since 2012. Patient has history of Lyme disease, mold exposure and thyroid cancer. Thyroidism Trialed PT, dry needling, chiropractic, massage. PAIN ASSESSMENT: Currently experiencing pain Pain level (0 no pain at all to 10 being the worst): 4 OBJECTIVE: Physical Exam: Tenderness: knees and feet Pain with palpation: na ROM: limited ROM Orthopedic Tests: na Tightness: knees Divina/Trigger points: na Visual Inspection Discoloration: na Edema: no Gait/Ambulation: normal Ovalle: good Qi/Patient vitality: normal Alert Well-Groomed Normal Imaging reports Images on file See EPIC Images have been reviewed no TCM Tongue: NA TCM Pulse: thin and weak ASSESSMENT Patient presents with signs and symptoms consistent with the diagnosis. Patient would benefit from acupuncture therapy to address listed deficiencies and return to PLOF. Pt was educated on symptoms, prognosis, plan of care and activity modifications. Pt verbalized understanding and agreed to begin care. TCM Pattern: PLS due to Qi and blood deficiency. TCM Treatment Principle: Calm Ovalle. Promote smooth flow of Qi and blood. Open channel. Reduce pain. PLAN OF CARE Counseled patient on risks of acupuncture treatment including pain, infection, bleeding, and no relief of pain. The patient was positioned comfortably. There was no evidence of infection at the site of needle insertions. Acupuncture Treatment: Treatment/Needle Set 1, Supine: Points: Yin Gaytan, motor line 2 points bilaterally on the scalp, ear ovalle men, Jan Zenon, Ling Gu, Da Austen, SP9, R: SJ3, SI3, GB31 15 minutes face to face with patient for set 1 Treatment/Needle Set 2, Supine: Points: R: GB34, Esquivel Chi, SP9, Si MA points 3, Xi Dinh, SP10, He Ding, 2 points on the lateral aspect of the patella bone, B: GB41, ST43 10 minutes face to face with patient for set 2 Calcium were retained for 30 minutes # of needles inserted: 36 # of needles withdrawn: 36 Adjunct techniques used: TDP Infrared Heat Lamp- Applied to Rt. Hip and right knee Patient tolerated the procedure well. UNIVERSAL PROTOCOL / SAFETY CHECKLIST Procedure to be Performed: Acupuncture Sign In: A Moment of CARE was completed. Personnel directly involved with the procedure wore the appropriate PPE (Personal Protective Equipment). Patient/Surrogate Stated/Verified: PATIENT VERIFIED(optional for EMERGENT procedures): Patient name, Date of , Relevant allergies, and The intended procedure Time Out Communication: Intended patient and procedure match the source documents. Consent documented and matches the intended procedure. Sign Out: SIGN OUT (optional for EMERGENT procedures): All instruments, equipment, possible retained foreign bodies accounted for. Trenton Hanson Provider Name: Trenton Hanson 25 Total minutes face to face time spent with patient Acupuncture and [place] herbal therapy are not a substitute for conventional medical diagnosis and treatment. Patient agrees that either: 1. A diagnostic exam has been performed by a physician or chiropractor within the last six months regarding the condition for which they are seeking acupuncture treatment. or 2. If no diagnostic exam by a physician or chiropractor has been done within the last six months regarding the condition for which patient is seeking treatment, the Processing Analyst, per [place] Law, recommends that this diagnostic exam be performed. [facility] 01-10-2024 History of Present illness Narrative Waldemar Hudson a 68 year old female presents to the acupuncture clinic on 01/10/24 for a follow up visit. Patient identity confirmed by name and : Yes This is the 8 visit for the patient this year It has been 1 week(s) since the last acupuncture treatment. Last treatment date: 01/03/2024 Initial Acupuncture treatment date: 11/12/2023 Chief Complaint: Primary lateral sclerosis, right knee pain, muscle spasm SUBJECTIVE The right knee pain is provoked with any type of weight bearing activity. She still experiences random onset of muscle spasms in lower limbs. She would get tenderness with touch or pressure made over the right knee. We discussed trying a herbal supplement, Roberto Mercado Gaytan for her knee pain and muscle spasms in lower extremities. All the instruction materials has been provided to patient today. Patient has been battling MS since 2012. Patient has history of Lyme disease, mold exposure and thyroid cancer. Thyroidism Trialed PT, dry needling, chiropractic, massage. PAIN ASSESSMENT: Currently experiencing pain Pain level (0 no pain at all to 10 being the worst): 4 OBJECTIVE: Physical Exam: Tenderness: knees and feet Pain with palpation: na ROM: limited ROM Orthopedic Tests: na Tightness: knees Divina/Trigger points: na Visual Inspection Discoloration: na Edema: no Gait/Ambulation: normal Ovalle: good Qi/Patient vitality: normal Alert Well-Groomed Normal Imaging reports Images on file See EPIC Images have been reviewed no TCM Tongue: NA TCM Pulse: thin and weak ASSESSMENT Patient presents with signs and symptoms consistent with the diagnosis. Patient would benefit from acupuncture therapy to address listed deficiencies and return to PLOF. Pt was educated on symptoms, prognosis, plan of care and activity modifications. Pt verbalized understanding and agreed to begin care. TCM Pattern: PLS due to Qi and blood deficiency. TCM Treatment Principle: Calm Ovalle. Promote smooth flow of Qi and blood. Open channel. Reduce pain. PLAN OF CARE Counseled patient on risks of acupuncture treatment including pain, infection, bleeding, and no relief of pain. The patient was positioned comfortably. There was no evidence of infection at the site of needle insertions. Acupuncture Treatment: Treatment/Needle Set 1, Supine: Points: Yin Gaytan, motor line 2 points bilaterally on the scalp, ear ovalle men, Jan Zenon, Ling Gu, Da Austen, SP9, R: SJ3, SI3, GB31 15 minutes face to face with patient for set 1 Treatment/Needle Set 2, Supine: Points: R: GB34, Esquivel Chi, SP9, Si MA points 3, Xi Dinh, SP10, He Ding, 2 points on the lateral aspect of the patella bone, B: GB41, ST43 10 minutes face to face with patient for set 2 Calcium were retained for 30 minutes # of needles inserted: 36 # of needles withdrawn: 36 Adjunct techniques used: TDP Infrared Heat Lamp- Applied to Rt. Hip and right knee Patient tolerated the procedure well. UNIVERSAL PROTOCOL / SAFETY CHECKLIST Procedure to be Performed: Acupuncture Sign In: A Moment of CARE was completed. Personnel directly involved with the procedure wore the appropriate PPE (Personal Protective Equipment). Patient/Surrogate Stated/Verified: PATIENT VERIFIED(optional for EMERGENT procedures): Patient name, Date of , Relevant allergies, and The intended procedure Time Out Communication: Intended patient and procedure match the source documents. Consent documented and matches the intended procedure. Sign Out: SIGN OUT (optional for EMERGENT procedures): All instruments, equipment, possible retained foreign bodies accounted for. Trenton Hanson Provider Name: Trenton Hanson 25 Total minutes face to face time spent with patient Acupuncture and [place] herbal therapy are not a substitute for conventional medical diagnosis and treatment. Patient agrees that either: 1. A diagnostic exam has been performed by a physician or chiropractor within the last six months regarding the condition for which they are seeking acupuncture treatment. or 2. If no diagnostic exam by a physician or chiropractor has been done within the last six months regarding the condition for which patient is seeking treatment, the Processing Analyst, per [place] Law, recommends that this diagnostic exam be performed. documented in this encounter [facility] 01-09-2024 Note Addended by: Mic ALCARAZ on: 01/09/2024 09:28 PM Modules accepted: Orders [facility] 01-09-2024 Miscellaneous Notes Addended by: ANTONIETTA ALCARAZ on: 01/09/2024 09:28 PM Modules accepted: Orders documented in this encounter [facility] 01-09-2024 Nurse Note 68 year old female is here today accompanied by Marycruz Allergies/intolerances were reviewed and verified: Yes Meds Updated: Yes Vital signs complete:Yes Handheld spirometry: date .01-09-24 By Rhea Sapp RN, BSN FVC = 74% ,predicted 3.369, 2.47 L without mask. FEV1 = 74%,predicted 2.55 1.88 L without mask. Patient demonstrated best or excellent effort and repeatable consistent results acquired and thought was within normal difficulty Cognitive or behavioral changes since last visit? no Any issues to bring to our attention? No Health Questionaire Completed on arrival: Yes Has the patient had a flu-shot? Yes Has the patient had a Pneumo Vax? No Has the patient had COVID vaccines Yes Has the patient had recent falls No Does the patient report pain Yes, Right knee chronic pain. Patient feels safe at home Yes Rhea Sapp RN January 09, 2024 10:14 AM [facility] 01-09-2024 Nurse Note 68 year old female is here today accompanied by Marycruz Allergies/intolerances were reviewed and verified: Yes Meds Updated: Yes Vital signs complete:Yes Handheld spirometry: date .01-09-24 By Rhea Sapp RN, BSN FVC = 74% ,predicted 3.369, 2.47 L without mask. FEV1 = 74%,predicted 2.55 1.88 L without mask. Patient demonstrated best or excellent effort and repeatable consistent results acquired and thought was within normal difficulty Cognitive or behavioral changes since last visit? no Any issues to bring to our attention? No [facility] Questionaire Completed on arrival: Yes Has the patient had a flu-shot? Yes Has the patient had a Pneumo Vax? No Has the patient had COVID vaccines Yes Has the patient had recent falls No Does the patient report pain Yes, Right knee chronic pain. Patient feels safe at home Yes Rhea Sapp RN January 09, 2024 10:14 AM documented in this encounter [facility] 01-09-2024 History of Present illness Narrative Nutrition Therapy Initial Assessment Nutrition Diagnosis: None RECOMMENDED MALNUTRITION DIAGNOSIS: NO MALNUTRITION IDENTIFIED NUTRITION CARE PLAN Nutrition Intervention 01/08/2024: Nutrition Guidelines: Follow Diet consistency and liquid guidelines recommended by your Speech therapist To maintain weight, you might need to be eating more food. Aim for 1800 calories and 75 grams protein per day. Heres some tips on what to eat: Add extra calories to meals and snacks with sources of healthy fats such as olive oil, avocado, nut butters, soft butters or margarines, full fat dairy, cheese Try to eat something every 2-3 hours. Include a source of protein in all meals and snacks such as meat, fish, poultry, seeds, nuts and nut butters. Choose beverages that have calories such as whole milk, shakes and smoothies. 3. Fluid needs: Aim for 48-64 oz or more per day, no caffeine Supplements Recommended for ALS Vit C 500 mg daily Vit E 400 international unit(s) per day Selenium 200 mg daily Alpha Lipoic Acid 400-800 mg daily Creatine Powder: 2.5 mg per day for 1 week, then 5 mg daily for maintenence Nutrition Monitoring & Evaluation: PO intakes, weight Need for Follow up: Next ALS Clnic Patient presents I have confirmed and edited as necessary the HPI obtained by Joan Prieto MD on 12/31/2023 and all reflect current status. Waldemar Hudson is a 68 year-old left-handed woman who comes to clinic today in the company of her regarding upper motor neuron disease. She reports frequent travel to multiple , , and [place] work in [id number]. 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 In 2011 she returned from a trip to [facility] and developed flu-like symptoms. A few months later she noted gait changes due to catching her left toes on the ground. She also noted difficulty arising from chairs. In late 2012 she noted similar symptoms in the right leg. In late 2014 she noted left arm problems, with finger weakness leading to difficulties writing as well as trouble reaching overhead. In 2016 she noted similar problems with the right arm. She reports gait changes leading to use of a cane in 03/2015, then a walker in 2016, and a wheelchair in 2023. The most recent gait limitations are worsened by right knee pain which she attributes to arthritis. In 2015 a neurologist commented on dysarthria though the patient was not noticing issues at that time. She reports progressive dysarthria from 2015 to present, though she was still able to give professional presentations through 2019. She has noted dysphagia, worse with liquids, as well as throat spasms with some oral intake. She was previously seen by neurology at [facility] and had MRIs, EMG, labs, and CSF. She was given a diagnosis of PLS. Patient's symptoms are: None ED Screening: Do you avoid eating certain foods? For what purpose? - low sugar/gluten and alcohol for health If eating more food or weight gain resolved most of your GI symptoms would you be willing to do so? - yes Do you have a history of or an active eating disorder? - no Today, patient reports the following: - Energy level?fatigues easily - Abdominal pain? No(dull, sharp, cramping, throbbing, burning or stabbing) - Abdominal distention?no - Bloated? - Flatulence?no - Nausea or vomiting?no - Burping?no - Heartburn?yes - Sign of dehydration: Muscle cramp, dry mouth, headaches, dark urine?no Output: The patient has 1 BMs per day. The output is bristol type 4. 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, 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9 kg (176 lb 3.2 oz) 25.37 kg/m2 % weight change: stable x > 1 year UBW/Goal Weight: 175#/160# Resting Metabolic Rate: 1292 Dosing weight: 73.5 kg Current Weight Estimated Nutrition Needs: Estimated kilocalorie needs:?3588-9509?kilocalories determined by 25-30 kcal/kg Estimated protein needs:?74 -88?grams determined by 1.0-1.2 g/kg Estimated fluid needs:? 1837 -2205?milliliters based on 1 mL per kcal Labs: no recent labs Meds: omega 3 fatty acids, levothyroxine, Nuedexta, Nystatin, Probiotic Malnutrition Screening Significant unintentional weight loss? No Eating less than 75% of usual intake for more than 2 weeks? No Potential Signs of Inflammation: chronic condition Education Materials Provided: None this visit READINESS TO LEARN Cognitive ability: Alert and oriented Motivation to learn: Interested Family support: High - Very involved in pt care Instruction provided to: Patient and family member Patient learns best by: Individual Instruction Factors affecting learning: None Physical limitations affecting learning: None Referred/Supervised by: Joan Prieto MD/Antonietta Alcaraz MD MNT Billing Type: Initial Assess/15 min 2 units SIGNATURE: Boris Walters RD PATIENT NAME: Waldemar Hudson DATE: 01/08/2024 TIME: 4:03 PM documented in this encounter [facility] 01-09-2024 Note HNO ID: [id number] Author: BORIS WALTERS RD Service: ? Author Type: Registered Dietitian Type: Progress Notes Filed: 01/09/2024 15:51 Note Text: Nutrition Therapy Initial Assessment Nutrition Diagnosis: None RECOMMENDED MALNUTRITION DIAGNOSIS: NO MALNUTRITION IDENTIFIED NUTRITION CARE PLAN Nutrition Intervention 01/08/2024: Nutrition Guidelines: Follow Diet consistency and liquid guidelines recommended by your Speech therapist To maintain weight, you might need to be eating more food. Aim for 1800 calories and 75 grams protein per day. Heres some tips on what to eat: Add extra calories to meals and snacks with sources of healthy fats such as olive oil, avocado, nut butters, soft butters or margarines, full fat dairy, cheese Try to eat something every 2-3 hours. Include a source of protein in all meals and snacks such as meat, fish, poultry, seeds, nuts and nut butters. Choose beverages that have calories such as whole milk, shakes and smoothies. 3. Fluid needs: Aim for 48-64 oz or more per day, no caffeine Supplements Recommended for ALS Vit C 500 mg daily Vit E 400 international unit(s) per day Selenium 200 mg daily Alpha Lipoic Acid 400-800 mg daily Creatine Powder: 2.5 mg per day for 1 week, then 5 mg daily for maintenence Nutrition Monitoring AND Evaluation: PO intakes, weight Need for Follow up: Next ALS Clnic Patient presents I have confirmed and edited as necessary the HPI obtained by Joan Prieto MD on 12/31/2023 and all reflect current status. Waldemar Hudson is a 68 year-old left-handed woman who comes to clinic today in the company of her regarding upper motor neuron disease. She reports frequent travel to multiple , , and [place] work [place] 1973[address]80. 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 In 2011 she returned from a trip to [place] and developed flu-like symptoms. A few months later she noted gait changes due to catching her left toes on the ground. She also noted difficulty arising from chairs. In late 2012 she noted similar symptoms in the right leg. In late 2014 she noted left arm problems, with finger weakness leading to difficulties writing as well as trouble reaching overhead. In 2016 she noted similar problems with the right arm. She reports gait changes leading to use of a cane in 03/2015, then a walker in 2016, and a wheelchair in 2023. The most recent gait limitations are worsened by right knee pain which she attributes to arthritis. In 2015 a neurologist commented on dysarthria though the patient was not noticing issues at that time. She reports progressive dysarthria from 2015 to present, though she was still able to give professional presentations through 2019. She has noted dysphagia, worse with liquids, as well as throat spasms with some oral intake. She was previously seen by neurology at [facility] and had MRIs, EMG, labs, and CSF. She was given a diagnosis of PLS. Patient's symptoms are: None ED Screening: Do you avoid eating certain foods? For what purpose? - low sugar/gluten and alcohol for health If eating more food or weight gain resolved most of your GI symptoms would you be willing to do so? - yes Do you have a history of or an active eating disorder? - no Today, patient reports the following: - Energy level?fatigues easily - Abdominal pain? No(dull, sharp, cramping, throbbing, burning or stabbing) - Abdominal distention?no - Bloated? - Flatulence?no - Nausea or vomiting?no - Burping?no - Heartburn?yes - Sign of dehydration: Muscle cramp, dry mouth, headaches, dark urine?no Output: The patient has 1 BMs per day. The output is bristol type 4. 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 (more content not included)... 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 - levothyroxine (SYNTHROID) 112 mcg tablet - NUEDEXTA 20-10 mg capsule Take 1 capsule by mouth two times a day. - nystatin (MYCOSTATIN, NILSTAT) 500,000 unit tab Take 2 tablets by mouth three times a day with meals. - TherBiotic Complete [address] Ct[address] (Klaire/Prothera) Take 1 capsule by mouth once daily. - itraconazole 0.5 % (CPD) 1-2 sprays to each nostril twice daily - Fish Oil-[place]-3 Fatty Acids 300-1,000 mg cap Take by mouth. - Meriva-SR (Monae) decrease inflammation/pain/gut healing Take 1-2 capsules two times daily Disposition: Return in about 6 months (around 07/11/2024). Follow-up and Disposition History for Encounter Date Provider Department Center 01/09/2024 [id number] Encounter Status:Closed by BORIS WALTERS on 01/09/24 [facility] 01-09-2024 Note HNO ID: [id number] Author: BOWEN QUIROZ CCC-PRESCHOOL ADVISER Service: ? Author Type: Speech Language Pathologist Type: Progress Notes Filed: 01/10/2024 12:00 Note Text: Episode Visit Count: 1 Therapist That Will Accept/Oversee The Plan Of Care: Bowen Quiroz MA CCC-PRESCHOOL ADVISER Start of Care Date: 01/09/24 Onset Date: 09/03/11 Plan of Care Certification Date: 01/09/24 Next Certification Due Date: 03/08/24 Patient Identified by Name and Date of : Yes [facility] REHABILITATION AND SPORTS THERAPY ALS/MND TEAM CLINIC SPEECH, SWALLOW, and VOICE EVALUATION PLAN OF CARE: Impression: Communication deficits identified: Dysarthria of speech Swallow Deficits Identified / Suspected: Oropharyngeal dysphagia Patient may benefit from periodic reassessment of communication and swallowing skills and needs through ALS Clinic. RECOMMENDATION: 1.) Continue regular solids and thin liquids as tolerated. 2.) Swallowing Strategies: -small bites/sips -slow rate -upright position with meals -medications whole or crushed in puree (e.g., applesauce, yogurt) -hold liquids in mouth for approximately 3 seconds, then swallow (3 second bolus prep) -rigid oral care -alternate bites/sips 3.) Modified Barium Swallow to formally assess oral and pharyngeal anatomy/physiology. 4.) Ensure you are facing your communication partner when speaking. 5.) May consider use of [id number]-[id number] application, such as Interhyp or Ancillary Specialist AAC, when feeling fatigued or unable to face your communication partner. Results and Recommendations Discussed With: Patient, Significant Other, Physician, Nurse Prognosis: Good Good: good support system/ coping skills Goals for Episode of Care: created on 01/09/2024 through 03/09/24 ALS GOALS 1.) Patient will demonstrate comprehension of motor speech and swallowing evaluations results and home recommendations. 2.) Patient will complete a modified barium swallow to formally assess oral and pharyngeal anatomy/physiology. 3.) Patient will verbalize one strategy/communication support she can utilize to maximize communication efficiency. LTG: All goals to target the patient's overall ability to facilitate functional communication and swallowing abilities. Planned Interventions, Frequency, and Duration: Planned Treatment Interventions: Dysarthria/Apraxia Reduction Training (23282, 91955), Alternative / Augmentative Communication Training (86312, 27625), Patient / Caregiver Education/ Training, Dysphagia Reduction Training (02073) Current Frequency: 1 visit Duration: 1 visit PLAN FOR NEXT VISIT: follow-up at ALS/MND team clinic Patient demonstrates good understanding of plan of care and treatment. The above goals and plan of care were discussed and agreed upon by patient/family. SUBJECTIVE: Waldemar Hudson is a 68 year old female seen today for a follow-up visit to the ALS/MND team clinic. Patient was diagnosed with Primary Lateral Sclerosis in 2011. Symptom onset occurred in the lumbosacral region. Accompanied to visit by: spouse. Patient/caregiver reports: -Difficulties swallowing liquids - coughs 2-3x a day. -No troubles swallowing solids. Solid food will sometimes stick in her mouth. -Some difficulties swallowing large pills. -Feels like others can understand her OK when she is facing them. . OBJECTIVE MEASURES WITH LEVEL OF FUNCTION: MOTOR SPEECH EVALUATION Respiration: room air; reduced breath groups Phonation: strained-strangled vocal quality Resonance: hypernasal Articulation: imprecise Intelligibility: 60% Prosody: slow rate; monopitch Dysarthria: moderate mixed spastic-flaccid dysarthria AC tools/device: Patient has csfk-da-thvntb application downloaded on phone, but has never used. Modeled and trained patient on apps that have ability to store custom messages (e.g., Lemko, assistant executive housekeeper AAC). Initial Modified Barium Swallow Evaluation completed 2018, per patient report. Unable to locate in medical records. Patient reports she was not informed of any significant findings related to MBS. PEG/JPEG: N/A BIPAP/CPAP: N/A Cough Assist: N/A Suction for Secretions: N/A 3 Oz Water Swallow Screen: Did not administer due to patient reports of difficulties with swallowing liquids. Patient did consume single sips of thin liquids via side of cup with implementation of a bolus hold without overt signs/symptoms of penetration/aspiration. Eating Assessment Tool (EAT - 10) To what extent are the following scenarios problematic for you? (0 = No problem; 1 = Mild Problem; 2 = Mild to Moderate Problem; 3 = Moderate Problem; 4 = Severe problem) 1. My swallowing problem has caused me to lose weight. = 1 2. My swallowing problem interferes with my ability to go out for meals. = 2 3. Swallowing liquids takes extra effort. = 3 4. Swallowing solids takes extra effort. = 0 5. Swallowing pills takes extra effort. = 2 6. Swallowing is painfu (more content not included)... [facility] 01-09-2024 History of Present illness Narrative Episode Visit Count: 1 Therapist That Will Accept/Oversee The Plan Of Care: Bowen Quiroz MA CCC-PRESCHOOL ADVISER Start of Care Date: 01/09/24 Onset Date: 09/03/11 Plan of Care Certification Date: 01/09/24 Next Certification Due Date: 03/08/24 Patient Identified by Name and Date of : Yes [facility] REHABILITATION AND SPORTS THERAPY ALS/MND TEAM CLINIC SPEECH, SWALLOW, and VOICE EVALUATION PLAN OF CARE: Impression: Communication deficits identified: Dysarthria of speech Swallow Deficits Identified / Suspected: Oropharyngeal dysphagia Patient may benefit from periodic reassessment of communication and swallowing skills and needs through ALS Clinic. RECOMMENDATION: 1.) Continue regular solids and thin liquids as tolerated. 2.) Swallowing Strategies: -small bites/sips -slow rate -upright position with meals -medications whole or crushed in puree (e.g., applesauce, yogurt) -hold liquids in mouth for approximately 3 seconds, then swallow (3 second bolus prep) -rigid oral care -alternate bites/sips 3.) Modified Barium Swallow to formally assess oral and pharyngeal anatomy/physiology. 4.) Ensure you are facing your communication partner when speaking. 5.) May consider use of wbev-mj-[id number] application, such as Interhyp or Ancillary Specialist AAC, when feeling fatigued or unable to face your communication partner. Results and Recommendations Discussed With: Patient, Significant Other, Physician, Nurse Prognosis: Good Good: good support system/ coping skills Goals for Episode of Care: created on 01/09/2024 through 03/09/24 ALS GOALS 1.) Patient will demonstrate comprehension of motor speech and swallowing evaluations results and home recommendations. 2.) Patient will complete a modified barium swallow to formally assess oral and pharyngeal anatomy/physiology. 3.) Patient will verbalize one strategy/communication support she can utilize to maximize communication efficiency. LTG: All goals to target the patient's overall ability to facilitate functional communication and swallowing abilities. Planned Interventions, Frequency, and Duration: Planned Treatment Interventions: Dysarthria/Apraxia Reduction Training (10102, 71310), Alternative / Augmentative Communication Training (46169, 88333), Patient / Caregiver Education/ Training, Dysphagia Reduction Training (43560) Current Frequency: 1 visit Duration: 1 visit PLAN FOR NEXT VISIT: follow-up at ALS/MND team clinic Patient demonstrates good understanding of plan of care and treatment. The above goals and plan of care were discussed and agreed upon by patient/family. SUBJECTIVE: Waldemar Hudson is a 68 year old female seen today for a follow-up visit to the ALS/MND team clinic. Patient was diagnosed with Primary Lateral Sclerosis in 2011. Symptom onset occurred in the lumbosacral region. Accompanied to visit by: spouse. Patient/caregiver reports: -Difficulties swallowing liquids - coughs 2-3x a day. -No troubles swallowing solids. Solid food will sometimes stick in her mouth. -Some difficulties swallowing large pills. -Feels like others can understand her OK when she is facing them. . OBJECTIVE MEASURES WITH LEVEL OF FUNCTION: MOTOR SPEECH EVALUATION Respiration: room air; reduced breath groups Phonation: strained-strangled vocal quality Resonance: hypernasal Articulation: imprecise Intelligibility: 60% Prosody: slow rate; monopitch Dysarthria: moderate mixed spastic-flaccid dysarthria AC tools/device: Patient has phlv-tz-sibolt application downloaded on phone, but has never used. Modeled and trained patient on apps that have ability to store custom messages (e.g., Lemko, assistant executive housekeeper AAC). Initial Modified Barium Swallow Evaluation completed 2019, per patient report. Unable to locate in medical records. Patient reports she was not informed of any significant findings related to MBS. PEG/JPEG: N/A BIPAP/CPAP: N/A Cough Assist: N/A Suction for Secretions: N/A 3 Oz Water Swallow Screen: Did not administer due to patient reports of difficulties with swallowing liquids. Patient did consume single sips of thin liquids via side of cup with implementation of a bolus hold without overt signs/symptoms of penetration/aspiration. Eating Assessment Tool (EAT - 10) To what extent are the following scenarios problematic for you? (0 = No problem; 1 = Mild Problem; 2 = Mild to Moderate Problem; 3 = Moderate Problem; 4 = Severe problem) 1. My swallowing problem has caused me to lose weight. = 1 2. My swallowing problem interferes with my ability to go out for meals. = 2 3. Swallowing liquids takes extra effort. = 3 4. Swallowing solids takes extra effort. = 0 5. Swallowing pills takes extra effort. = 2 6. Swallowing is painful. = 0 7. The pleasure of eating is affected by my swallowing. = 1 8. When I swallow, food sticks in my throat. = 1 9. I cough when I eat. = 0 10. Swallowing is stressful. = 2 Total Score: 12 If your score is greater than 3, you may have swallowing problems. Reference: Jenn PC, Carmita DA, Solomon CJ, Ant KONSTANTIN, Damon GN, Surjit J, and Anival ROSADO. Validity and reliability of the Eating Assessment Tool (EAT-10). Kendra Otol Rhinol Laryngol 117: [phone], 2008. 01/09/24 ALS FRS Speech score 2 ALS FRS Saliva Score 3 ALS FRS Swallowing score 3 Intelligibility 60% Speaking Rate (words per minute) 86 wpm EAT-10 12 Speech Measures: A referral for AAC is recommended when speaking rated is equivalent to or falls below 125 words per minute on sentence level intelligibility. Swallowing Measures: EAT-10 has been standardized with Modified Barium Swallow Evaluation. Research by Dr. Phoebe Barahona at [facility] demonstrates an EAT-10 cut score of 3 is consistent with Penetration Aspiration Scores (PAS) >/3 indicating safe swallows. EAT-10 scores of 8 are consistent with PAS >/6 indicating unsafe swallows. Education: Education Learning Preferences: Demonstration, Explanation, Performance Barriers: Acuity of Illness Learning/Educational Needs: Compensatory Strategies, Equipment, Family Education/Training, Plan of Care, Precautions, Rehabilitation Techniques and Procedures, Speech Skills, Voice Skills, Swallowing Skills Education Provided: Yes, see treatment interventions for education provided Education Provided To: Patient, Family Education Mode/Type: Demonstration, Explanation/Discussion, Performance, Teach Back Response to Education/Teach Back: Return Demonstration, States/Identifies TREATMENT: Evaluation: Eval Speech Sound Production (78791) Swallow Eval Func (45793) Swallow / Dysphagia (35005): Skilled Intervention: Educated and advised patient / caregiver on texture and liquid consistency recommendations., Instructed patient / caregiver on recommended compensatory strategies to maximize safety with oral intake while maintaining nutrition, hydration and medication stability. Speech/Language Therapy (37251): Skilled Intervention: Provided and instructed patient on the utilization of a speech-generating augmentative and alternative communication device. Current Home Program: see recommendations Billing: Eval Speech Sound Production (56623), Clinical Swallow Evaluation (07605), Speech Treatment (99929), and Dysphagia Treatment (56723) Total time / Length of visit: 46 minutes Session Start Time : 1149 Session Stop Time : 1235 Bowen Quiroz CCC-PRESCHOOL ADVISER documented in this encounter [facility] 01-09-2024 Instructions Antonietta Alcaraz DO - 01/09/2024 8:49 AM EDT 1) Voltaren topical cream 2) Start baclofen 5 mg three times a day, increase after 2 weeks to 10 mg three times a day documented in this encounter [facility] 01-09-2024 Note HNO ID: [id number] Author: LIA NAPIER PT Service: ? Author Type: Physical Therapist Type: Progress Notes Filed: 01/09/2024 11:36 Note Text: Episode Visit Count: 24 Therapist That Will Accept/Oversee The Plan Of Care: Nathan Madrigal PT, ANABELLE Start of Care Date: 10/03/23 Onset Date: 12/31/23 Plan of Care Certification Date: 12/28/23 Next Certification Due Date: 02/15/24 Patient Identified by Name and Date of : Yes REHABILITATION AND SPORTS THERAPY PHYSICAL THERAPY PROGRESS REPORT PLAN OF CARE UPDATE: Assessment: Waldemar Hudson demonstrates bilateral lower extremity tone, weakness and pain that impact her functional mobility. She has new goals added to address ALS Clinic however pt plan to return to plan of care designed by her primary PT closer to home. Patient continues to present with impairments in ADL's, balance, coordination, edema management, flexibility, gait, independence in exercise, joint mobility, overall function, range of motion, and strength that interfere with rising from a chair, standing, walking, walking in the house, walking in the community . Current prognosis is Fair due to: clinical presentation, chronic nature of impairments, limited tolerance to activity, Prognosis may be improved by good support system/ coping skills, positive past response to therapy. Bilateral lower extremity spasticity is primary impairment to mobility, she will benefit from continued stretching and strengthening to address this. PT encouraged setting up PMR consult with Spasticity Team. Also edon recommendation for power mobility consult as well as stair lift for within the home. She will benefit from continued skilled therapy services to meet the updated goals for this plan of care as noted below. Goals for Episode of Care: created on 12/28/2023 through 02/15/2024 Patient will increase active ROM of bilateral knees to no greater than 10-15 degrees from achieving full knee extension to allow patient to improve postural alignment, to improve gait mechanics / gait pattern , and to decrease falls risks. (Ongoing) Patient will be able to correct postural deviations with minimal assist verbal cues in order to improve postural alignment of trunk during transfers, ambulation, and standing and to decrease current R LE pain. (Progressing and ongoing) Decrease R hip/R knee pain to 1-4/10 at rest and with functional activities to allow patient to improve ambulation, transfers, and standing tolerance for ADLs. (Ongoing) Patient will ambulate 50-75 feet with rolling walker with stand by assist to allow patient to be able to ambulate to and from her bathroom at home with less difficulty. (Ongoing. We have not addressed ambulation as much recently due to R knee pain) Patient to be able to non-reciprocally negotiate stairs at home with bilateral rail use with assist of for safety as needed and be able to complete this task in 5 minutes as she did previously. (Ongoing with patient and noting less time to complete and less assist needed for L LE advancement on the steps at home) Patient Goals: To reduce my right knee pain New goals added for ALS Clinic updated 01/09/2024 - Patient education regarding pathophysiology and relationship to deficits presented this date, including exercise recommendations for people with ALS. Including dosage, recovery and intensity. (met) - Patient educated on how to complete home exercise program listed below independently or with caregiver assistance to maintain function, promote wellness, decrease risk of secondary impairments (met) - Patient demonstrates independent and proper use of assistive device to allow for improved walking quality and safety therefore reducing the risk of falls (met) - Patient/ caregiver educated on safe transfers, positioning, and use of adaptive equipment this date to ensure safety for patient and caregiver (met) Recommended Equipment: pivot disc and power wheelchair Patient Goals: assess mobility Planned Interventions, Frequency, and Duration: 2x/week (continue per primary therapist POC), 6 weeks (continue per primary therapist POC) Total Number of Visits Planned: 12 (continue per primary therapist POC) Patient to be seen for Therapeutic exercise (97990), Neuromuscular re-education (17029), Manual therapy (88948), Therapeutic activities (86262), Self-nursing home management (30406), Gait Training (12291), Patient/Family/Caregiver Education, Orthosis / DME PLAN FOR NEXT VISIT: continue per primary therapist POC Resume standing exercises as able. Continue LE passive stretching and LE/core strengthening exercises. SUBJECTIVE: Pt has been diagnosed with PLS for 7-8 years recently transitioned care to [facility]. She reports that she was previously using a rollator for household distances but has been having R > L knee pain that has limited that. She is currently in PT closer to home which she (more content not included)... [facility] 01-09-2024 History of Present illness Narrative Images from the original note were not included. Episode Visit Count: 24 Therapist That Will Accept/Oversee The Plan Of Care: Nathan Madrigal, PT, ANABELLE Start of Care Date: 10/03/23 Onset Date: 12/31/23 Plan of Care Certification Date: 12/28/23 Next Certification Due Date: 02/15/24 Patient Identified by Name and Date of : Yes REHABILITATION AND SPORTS THERAPY PHYSICAL THERAPY PROGRESS REPORT PLAN OF CARE UPDATE: Assessment: Waldemar Hudson demonstrates bilateral lower extremity tone, weakness and pain that impact her functional mobility. She has new goals added to address ALS Clinic however pt plan to return to plan of care designed by her primary PT closer to home. Patient continues to present with impairments in ADL's, balance, coordination, edema management, flexibility, gait, independence in exercise, joint mobility, overall function, range of motion, and strength that interfere with rising from a chair, standing, walking, walking in the house, walking in the community . Current prognosis is Fair due to: clinical presentation, chronic nature of impairments, limited tolerance to activity, Prognosis may be improved by good support system/ coping skills, positive past response to therapy. Bilateral lower extremity spasticity is primary impairment to mobility, she will benefit from continued stretching and strengthening to address this. PT encouraged setting up PMR consult with Spasticity Team. Also ed on recommendation for power mobility consult as well as stair lift for within the home. She will benefit from continued skilled therapy services to meet the updated goals for this plan of care as noted below. Goals for Episode of Care: created on 12/28/2023 through 02/15/2024 Patient will increase active ROM of bilateral knees to no greater than 10-15 degrees from achieving full knee extension to allow patient to improve postural alignment, to improve gait mechanics / gait pattern , and to decrease falls risks. (Ongoing) Patient will be able to correct postural deviations with minimal assist verbal cues in order to improve postural alignment of trunk during transfers, ambulation, and standing and to decrease current R LE pain. (Progressing and ongoing) Decrease R hip/R knee pain to 1-4/10 at rest and with functional activities to allow patient to improve ambulation, transfers, and standing tolerance for ADLs. (Ongoing) Patient will ambulate 50-75 feet with rolling walker with stand by assist to allow patient to be able to ambulate to and from her bathroom at home with less difficulty. (Ongoing. We have not addressed ambulation as much recently due to R knee pain) Patient to be able to non-reciprocally negotiate stairs at home with bilateral rail use with assist of for safety as needed and be able to complete this task in 5 minutes as she did previously. (Ongoing with patient and noting less time to complete and less assist needed for L LE advancement on the steps at home) Patient Goals: To reduce my right knee pain New goals added for ALS Clinic updated 01/09/2024 - Patient education regarding pathophysiology and relationship to deficits presented this date, including exercise recommendations for people with ALS. Including dosage, recovery and intensity. (met) - Patient educated on how to complete home exercise program listed below independently or with caregiver assistance to maintain function, promote wellness, decrease risk of secondary impairments (met) - Patient demonstrates independent and proper use of assistive device to allow for improved walking quality and safety therefore reducing the risk of falls (met) - Patient/ caregiver educated on safe transfers, positioning, and use of adaptive equipment this date to ensure safety for patient and caregiver (met) Recommended Equipment: pivot disc and power wheelchair Patient Goals: assess mobility Planned Interventions, Frequency, and Duration: 2x/week (continue per primary therapist POC), 6 weeks (continue per primary therapist POC) Total Number of Visits Planned: 12 (continue per primary therapist POC) Patient to be seen for Therapeutic exercise (54931), Neuromuscular re-education (28696), Manual therapy (96294), Therapeutic activities (57864), Self-nursing home management (59662), Gait Training (91045), Patient/Family/Caregiver Education, Orthosis / DME PLAN FOR NEXT VISIT: continue per primary therapist POC Resume standing exercises as able. Continue LE passive stretching and LE/core strengthening exercises. SUBJECTIVE: Pt has been diagnosed with PLS for 7-8 years recently transitioned care to [facility]. She reports that she was previously using a rollator for household distances but has been having R > L knee pain that has limited that. She is currently in PT closer to home which she feels is helpful to address her knee pain but still troublesome with sleeping and weight bearing. She has been primarily using a manual wc in the home which she can self propel. Her , dieter assists with all transfers and stairs.. Patient Goals: assess mobility Functional Limitations: rising from a chair, standing, walking, walking in the house, walking in the community Prior Level of Function: Independent with restrictions Independent with the following restrictions: assist with ADLs/iADLS and transfers Intake Information: Prescription present Previous Treatment: Physical Therapy , Aquatic PT, Occupational Therapy, Speech Therapy , NSAIDs , Heat Falls Interview: Two or more falls in the last year Falls Intervention: More thorough falls assessment to be performed, Instructed patient on safety and use of assistive device and awareness in regards to falls prevention. Pain: Pain Pain Level: 3 Pain Location: Knee - Right Description: Aching, Sharp Frequency: With movement Post Treatment Pain Post Treatment Pain Level: No Change PROMIS Scales 01/08/2024 12/26/2023 12/06/2023 Higher is Better Phys Func - Score 23 (severe dysfunction) 23 (severe dysfunction) Phys Func - Percentile 0 0 Self-Eff Symptom - Score 37 (Low) Self-Eff Symptom - Percentile 10 T-scores: mean of general population = 50. 5 points is clinically meaningfully difference Percentiles provide an indication of how the patient's score ranks in relation to the general population. Higher percentile rankings indicate better function/quality of life. 50th percentile is the average of the general population and indicates half of respondents had a worse score. OBJECTIVE MEASURES WITH LEVEL OF FUNCTION: LE Strength R Hip Flexion (L2): 4/5 R Knee Extension (L3): (signficant knee flexion tone limiting, able to achieve approx 95 deg ext did not resistance test at this range) R Knee Flexion: 4-/5 R Ankle Dorsiflexion (L4): 4/5 L Hip Flexion (L2): 4/5 L Knee Extension (L3): 4-/5 L Knee Flexion: 4-/5 L Ankle Dorsiflexion (L4): 4-/5 Tone Tone Testing: Modified Christine Scale Lower Extremity R Hip Flexor: 4: Affected part rigid R Hip Adductor: 4: Affected part rigid R Knee Extensor: 3: Considerable increase in tone, passive movement difficulty R Knee Flexor: 4: Affected part rigid R Plantarflexor: 3: Considerable increase in tone, passive movement difficulty L Hip Flexor: 2: Marked increase in tone through most of ROM but effected part easily moved L Hip Adductor: 3: Considerable increase in tone, passive movement difficulty L Knee Extensor: 2: Marked increase in tone through most of ROM but effected part easily moved L Knee Flexor: 2: Marked increase in tone through most of ROM but effected part easily moved L Plantarflexor: 2: Marked increase in tone through most of ROM but effected part easily moved Mobility Supine To Sit: Minimal Assistance Sit to Supine: Minimal Assistance Sit To Stand: Moderate Assistance Stand To Sit: Minimal Assistance Bed To Chair: Minimal Assistance Bed To Chair Transfer Type: Stepping Gait Gait: Contact Guard Assistance Gait Distance (feet): 25 Gait Device: Rollator Gait Deviations: General Deviations General Deviations/Observations: Scissoring of LEs, Shuffling Gait, Non-functional gait speed, Narrow Base of Support, Flexed trunk posture, Do decreased, UE weight bearing on assistive device excessive Gait Observation: Very spastic BLE, pt ambulating on toes on BLE. Shuffling gait, poor clearance. use of breaks with each step for rollator management Functional Performance Test Results Assistive Device: Rollator 10 Meter Walk Test Trial 1 (seconds): 74.88 10 Meter Walk Test Average (m/sec): 0.08 TREATMENT: Therapeutic Activity: 1: Review of transfer technique, pt with notable difficulty in stepping portion of transfer with , trial of pivot disc for return to wc at cga-min A for balance, improved fluidity of transfer and safety. PT ed on how to obtain with written print out 2: Review of bed rail to aid in supine <> sit provided written print out 3: Review of recommendation for stair lift for inside home due to LE pain, energy conservation and overall technique required. Encouraged to discuss with ALSA to determine ability to install vs funding 4: Ed on Spasticity Consult with PMR and better spasticity management 5: Encouraged sleeping with pilow between knees for better alignment and pain reduction 6: Ed on energy conservation techniques, provided 100 acacia analogy and how to utilize equipment to help ext end energy Skilled Intervention: Proper patient guarding to prevent falls/increase patient safety with minimal assistance, contact guard assistance to assist patient while performing transfers Ensured patient safety with use of guarding and equipment Instructed on proper lifting and carrying techniques with importance of core activation. Educated on proper/safe technique for activities performed today. Activity progression based on professional judgment. Education as noted Assisted proper completion of task with verbal, visual, and tactile cueing and correction of abnormal movement patterns. Therapeutic Exercise: 1: PT assessment of LE strength and tone as documented above 2: Reviewed recommendation to continue HEP from primary PT closer to home 3: Encouraged LE prop for hamstring stretch throughout day to help reduce knee flexion contracture Skilled Intervention: Patient was educated in proper exercise technique and purpose for exercises. Reviewed and educated patient on additions/changes for home exercise program as above (*). Skilled judgment was used in selection of appropriate interventions. Educated patient on rationale for performing exercises in regards to decreasing fatigue , increase ease of ADL, and ROM and function . Patient education as noted. Gait Trainin: 10 MWT with Rollator cga + wc follow for safety, review of result of observational gait analysis. Pt demos significantly slowed gait speed, nonfunctional in nature. We discussed recommendation for power mobility consult Skilled Intervention: Patient was provided contact guard assistance during pre-gait/gait training to prevent falls and insure safety. Facilitated proper gait cycle with the use of verbal and visual cues for correction of gait deviations identified in the objective section above. Skilled judgment used to assess selection, proper sizing, and proper use of assistive device. Billing Therapeutic Exercise Treatment Minutes: 10 Therapeutic Activity Treatment Minutes: 18 Gait Training Treatment Minutes: 10 Skilled Treatment Time Minutes (timed and untimed codes): 38 Total Session Time (minutes): 38 Session Start Time : 1030 Session Stop Time : 1108 Lia Napier PT, DPT Board Certified Clinical Specialist in Neurologic Physical Therapy documented in this encounter [facility] 01-09-2024 History of Present illness Narrative PCP - Keren Dumont [address] [place] [address] Original referring doctor- Joan Prieto [address] [facility] [id number] Ms. Hudson came for her first visit to the multidisciplinary ALS/MND Team Clinic on 01/09/2024, accompanied by her Dieter. She is a 68 year old y/o female from [place], [place] who experienced symptom onset in the lumbosacral region (with left leg weakness ) in 2011. She was diagnosed with PLS by provider at [facility], confirmed with Dr. Prieto REVIEW of LAST VISIT FINDINGS: 12/31/2023: Waldemar Hudson is a 68 year-old woman who has had progressive upper motor neuron symptoms and findings since 2011. 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 Int he absence of lower motor neuron features developing in the last 12 years, there is essentially no risk of progression to ALS. Management will be symptomatic. 2016 diagnosis, symptoms since 2011. Thish as been a slow progression Plan: 1) consult to ALS/MND clinic 2) consult to spasticity clinic 3) consult to PRESCHOOL ADVISER closer to home 4) will forward her contact information to the ALS Association 5) script sent for Nuedexta - bid for now; next week will send a new script for three times daily UPDATE: She has experienced the following (most significant worsening indicated with *): 1. Speech is affected, did see speech, She gets tired with talking 2. Swallowing is affected, trouble with liquids- coughing/choking, every day. Smoothie that is thick in the morning with no issue. Able to swallow big pills. No swallow study. Saliva was increased- feels that the neudexta helps with this. 3. Weight lost 25 pounds over 7 years, stabilized. Appetite is ok. Not as good as it used to be Not avoiding any foods but does avoid gluten/sugar/alcohol. 4. 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 Left leg is weaker, still dontrell 5. Leg function is affected, only last few months, started to have trouble with tone and knee pain, was using walker initially, on good days would hold onto rail. No injury to right knee. She has had falls but not recently. No power wheelchair, uses rollator in the house 6. Muscle cramps are present, especially on the right leg. She takes THC/CBD, helps with cramping. She is also on magnesium (1 pill daily). She has not tried baclofen and does not want the pump. 7. Breathing is ok, had issues with COVID, sometimes has FELTON going up stairs. Her knee pain keeps her awake, knees raised too. 8. Memory and behavior -some change with recalling names . 9. There was some emotional lability/pseudobulbar affect (PBA) -neudexta 10. There is joint pain-right knee pain, more then 10 years, uses advil/aleve . 11. Ms. 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 12. She is not driving. 13. Advance directives are in place. 14. She had urge incontinence- thinks also the neudexta 15. She was diagnosed with lyme disease around 2014. She is following with lyme specialist. EVALUATION: VITAL SIGNS: BP 96/60 Pulse 72 Resp 18 12/30 ALS Functional Rating Scale-Revised (ALSFRS-R) score = 25/48 Subscores: Bulbar= 5/12, Cervical= 6/12, Lumbosacral= 4/12, Resp= 10/12 (patient self-administered in NI questionnaire) Center for Neurologic Study-Lability Scale (SYSTEM DEVELOPMENT ENGINEER-LS) score = 20 (N=7) A score of 13 or higher may indicate clinically significant pseudobulbar affect (PBA). Subscores: Crying = 9 (N=3); Laughing = 11 (N=4). Handheld spirometry testing on 01/09/2024 by Rhea Sapp RN FVC = 74% ,predicted 3.369, 2.47 L without mask. FEV1 = 74%,predicted 2.55 1.88 L without mask. NEUROLOGIC EXAMINATION: Mentation: normal; there is no evidence of clinical dementia Speech: spastic dysarthia (80% understandable) Cranial nerves: Extra ocular movements: intact, jaw jerk: present, facial reflexes: present; eye closure: some weakness, mouth closure: some weakness; mentalis fasciculations: none, tongue bulk: intact , fasciculations: none, movement: reduced, and strength: weak; fasciculations are not seen Tone: increase in upper limbs, very increased in lower limbs Power: Comparing right to left, graded out of 5: Finger abductors - D2: 4+/4, D5: 4+/4, Finger extensors: 5/4+, Wrist extensors: 5/5, and flexors: 5/5 Elbow extensors: 5/5, and flexors: 5/5 Shoulder abductors: 5/5, Hip abductors: 5/5, and adductors: 5/5 Hip flexors: 5/5, and extensors: 5/5 Knee flexors: 5/5, and extensors: 5/5 Ankle dorsiflexors: 5/5, and plantar flexors: 5/5 Ms. Hudson cannot arise from a regular chair without use of her arms Stretch reflexes: UEs: 2+, 2 at rihgt knee, diffiuclty to obtain left knee reflex Plantars: NT Gait: NT ASSESSMENT: There is evidence of UMN findings in bulbar, cervical and lumbar region, without signs of LMN, consistent with diagnosis of PLS. We discussed today that symptoms are unlikely to be related to lyme disease and that longterm treatment with antibiotics are not recommended. Patient with significant spasticity- start baclofen, referral already placed to spasticity clinic. Encourage evaluation of right knee pain with orthopedics. RECOMMENDATIONS / PLAN: I and members of the ALS Team assessed Ms. Hudson and made the following recommendations: 1. Medication changes: Start baclofen 5 mg TID, increase to 10 mg TID, voltaren gel for knee 2. Medication refills: Continue nuedexta 3. Investigations: MBS ordered 4. Speech and swallowing: See note. I have reviewed the recommendations and agree with the plan of care. 5. Nutrition: See note. I have reviewed the recommendations and agree with the plan of care. 6. Respiratory/Pulmonary: No current needs, may need this on next visit 7. Physical Therapy: See note. I have reviewed the recommendations and agree with the plan of care. PWC, pivot disc 8. Occupational Therapy: See note. I have reviewed the recommendations and agree with the plan of care. See below PWC. 9. Social Work: See note. I have reviewed the recommendations and agree with the plan of care. 10. Research: None. 11. Other: None This visit consisted of a face to face evaluation. At this time due to a diagnosis of AMYOTROPHIC LATERAL SCLEROSIS and increased weakness, this patient requires powered mobility for all mobility related ADL tasks. This chair needs to include power elevating leg rest, power tilt and power recline. This chair will be optimally configured for disease as well as disease progression. I included an order for therapy to complete further scripting and sizing of a medically required power wheelchair. We will see Ms. Hudson in follow-up in the ALS/MND Team Clinic in 6 months, 3 month follow up with Dr. Prieto (can likely follow every 6 months after this) Antonietta Alcaraz DO documented in this encounter [facility] 01-09-2024 Note HNO ID: [id number] Author: ANTONIETTA ALCARAZ DO Service: ? Author Type: Physician Type: Progress Notes Filed: 01/09/2024 21:20 Note Text: PCP - Keren Dumont [address] [place] [address] Original referring doctor- Joan Prieto [address] [facility] [address] Ms. Hudson came for her first visit to the multidisciplinary ALS/MND Team Clinic on 01/09/2024, accompanied by her Dieter. She is a 68 year old y/o female from [place], [place] who experienced symptom onset in the lumbosacral region (with left leg weakness ) in 2011. She was diagnosed with PLS by provider at [facility], confirmed with Dr. Prieto REVIEW of LAST VISIT FINDINGS: 12/31/2023: Waldemar Hudson is a 68 year-old woman who has had progressive upper motor neuron symptoms and findings since 2011. 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 Int he absence of lower motor neuron features developing in the last 12 years, there is essentially no risk of progression to ALS. Management will be symptomatic. 2016 diagnosis, symptoms since 2012. Thish as been a slow progression Plan: 1) consult to ALS/MND clinic 2) consult to spasticity clinic 3) consult to PRESCHOOL ADVISER closer to home 4) will forward her contact information to the ALS Association 5) script sent for Nuedexta - bid for now; next week will send a new script for three times daily UPDATE: She has experienced the following (most significant worsening indicated with *): 1. Speech is affected, did see speech, She gets tired with talking 2. Swallowing is affected, trouble with liquids- coughing/choking, every day. Smoothie that is thick in the morning with no issue. Able to swallow big pills. No swallow study. Saliva was increased- feels that the neudexta helps with this. 3. Weight lost 25 pounds over 7 years, stabilized. Appetite is ok. Not as good as it used to be Not avoiding any foods but does avoid gluten/sugar/alcohol. 4. 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 Left leg is weaker, still dontrell 5. Leg function is affected, only last few months, started to have trouble with tone and knee pain, was using walker initially, on good days would hold onto rail. No injury to right knee. She has had falls but not recently. No power wheelchair, uses rollator in the house 6. Muscle cramps are present, especially on the right leg. She takes THC/CBD, helps with cramping. She is also on magnesium (1 pill daily). She has not tried baclofen and does not want the pump. 7. Breathing is ok, had issues with COVID, sometimes has FELTON going up stairs. Her knee pain keeps her awake, knees raised too. 8. Memory and behavior -some change with recalling names . 9. There was some emotional lability/pseudobulbar affect (PBA) -neudexta 10. There is joint pain-right knee pain, more then 10 years, uses advil/aleve . 11. Ms. 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 12. She is not driving. 13. Advance directives are in place. 14. She had urge incontinence- thinks also the neudexta 15. She was diagnosed with lyme disease around 2014. She is following with lyme specialist. EVALUATION: VITAL SIGNS: BP 96/60 Pulse 72 Resp 18 12/30 ALS Functional Rating Scale-Revised (ALSFRS-R) score = 25/48 Subscores: Bulbar= 5/12, Cervical= 6/12, Lumbosacral= 4/12, Resp= 10/12 (patient self-administered in NI questionnaire) Center for Neurologic Study-Lability Scale (SYSTEM DEVELOPMENT ENGINEER-LS) score = 20 (N=7) A score of 13 or higher may indicate clinically significant pseudobulbar affect (PBA). Subscores: Crying = 9 (N=3); Laughing = 11 (N=4). Handheld spirometry testing on 01/09/2024 by Rhea Sapp RN FVC = 74% ,predicted 3.369, 2.47 L without mask. FEV1 = 74%,predicted 2.55 1.88 L without mask. NEUROLOGIC EXAMINATION: Mentation: normal; there is no evidence of clinical dementia Speech: spastic dysarthia (80% understandable) Cranial nerves: Extra ocular movements: intact, jaw jerk: present, facial reflexes: present; eye closure: some weakness, mouth closure: some weakness; mentalis fasciculations: none, tongue bulk: intact , fasciculations: none, movement: reduced, and strength: weak; fasciculations are not seen Tone: increase in upper limbs, very increased in lower limbs Power: Comparing right to left, graded out of 5: Finger abductors - D2: 4+/4, D5: 4+/4, Finger extensors: 5/4+, Wrist extensors: 5/5, and flexors: 5/5 Elbow extensors: 5/5, and flexors: 5/5 Shoulder abductors: 5/5, Hip abductors: 5/5, and adductors: 5/5 Hip flexors: 5/5, and extensors: 5/5 Knee flexors: 5/5, and extensors: 5/5 An (more content not included)... [facility] 01-09-2024 Note HNO ID: [id number] Author: LAURYN CHAPA LISW Service: ? Author Type: Body Engineer Type: Progress Notes Filed: 01/10/2024 13:07 Note Text: ALS/MND Multidisciplinary Clinic Psychosocial Assessment Ms. Jax Hannah) along with her spouse Marycruz Arthur, met with social media specialist in this initial team clinic session today. The following information was taken from today's interview. Identifying Information: Patient is a 68 y/o female who has had symptoms dating back to 2011 with weakness. She was diagnosed with PLS at [facility] in 2016. She was seen recently by Dr. Prieto who confirmed PLS diagnosis. She is to Dieter for over 40 yrs. They met in college. They have 3 chldren. The oldest works for [employer] as a systems design engineer, lives in [place] with her spouse and 6 y/o son. They are expecting a second son soon. 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 The youngest is Nelson and he lives in [place] and works in [employer]. He is recently engaged which is exciting. Living Situation/Functioning: Waldemar, her spouse and daughter live in a newer [facility] townhouse which had [address] level entrance to the hallway and then 15 steps into their home. Additionally, she has another set of 15 steps to her bedroom. The townhouse was bulit with an elevator shaft but she does not want to lose her pantry on the main floor and closet in her bedroom. She moved into this housing recently, so her PLS was well known to them. Encouraged them to consider the elevator as the most cost effective, safe and accessible living. She is currently walking all these steps very slowly with spouse always right there. She is fairly independent with ADL's/IADL's at this time. Coping/Activities: Waldemar feels she is coping ok with the illness but the reduced verbal recognition is harder. She enjoys spending time with family/friends, going out to dinner. She is involved in community programs. Support: Spouse is greatest support with daughter Katia next. Other two children are good emotional supports along with many friends and colleagues. Spiritual: She identifies as a lapsed Synagogue. She does find her faiith as a postiive. Resources/ALSA: Waldemar is involved with ALSA and Halima is her care services provider. She is not a . Advanced Directives: Completed the POA and Living Will documents. Spouse given the [facility] Advance Directives with directions on how to scan them into patient's chart. 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 Spouse is also retired from [employer] in IT. They are comfortable financially and have savings. Impression: Waldemar and her spouse are very pleasant and delightful people with a very good support system. She has been dealing with the PLS for many years, which may be a factor in her willingness to walk up and down several flights of stairs on a daily basis. She is well pleased with the ALSA involvement and is learning about many resources available to her. Goals met. Plan: Scan your Advance Directives into you chart per instructions on the [facility] Advance Directives brochure. F/U at next ALS team clinic appointment. Available to patient and/or family as needed at [phone]. Time spent: 45 mins Billing Code: 71026 MIGDALIA Godinez [facility] 01-09-2024 History of Present illness Narrative ALS/MND Multidisciplinary Clinic Psychosocial Assessment Ms. Hudson (Waldemar) along with her spouse Marycruz Arthur, met with social media specialist in this initial team clinic session today. The following information was taken from today's interview. Identifying Information: Patient is a 68 y/o female who has had symptoms dating back to 2011 with weakness. She was diagnosed with PLS at [facility] in 2016. She was seen recently by Dr. Prieto who confirmed PLS diagnosis. She is to Dieter for over 40 yrs. They met in college. They have 3 chldren. The oldest works for [employer] as a systems design engineer, lives in [place] with her spouse and 6 y/o son. They are expecting a second son soon. 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 The youngest is Nelson and he lives in [place] and works in [employer]. He is recently engaged which is exciting. Living Situation/Functioning: Waldemar, her spouse and daughter live in a newer [facility] which had [address] level entrance to the hallway and then 15 steps into their home. Additionally, she has another set of 15 steps to her bedroom. The townhouse was bulit with an elevator shaft but she does not want to lose her pantry on the main floor and closet in her bedroom. She moved into this housing recently, so her PLS was well known to them. Encouraged them to consider the elevator as the most cost effective, safe and accessible living. She is currently walking all these steps very slowly with spouse always right there. She is fairly independent with ADL's/IADL's at this time. Coping/Activities: Waldemar feels she is coping ok with the illness but the reduced verbal recognition is harder. She enjoys spending time with family/friends, going out to dinner. She is involved in community programs. Support: Spouse is greatest support with daughter Katia thomson. Other two children are good emotional supports along with many friends and colleagues. Spiritual: She identifies as a lapsed Synagogue. She does find her faiith as a postiive. Resources/ALSA: Waldemar is involved with ALSA and Halima is her care services provider. She is not a . Advanced Directives: Completed the POA and Living Will documents. Spouse given the [facility] Advance Directives with directions on how to scan them into patient's chart. 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 Spouse is also retired from [employer] in IT. They are comfortable financially and have savings. Impression: Waldemar and her spouse are very pleasant and delightful people with a very good support system. She has been dealing with the PLS for many years, which may be a factor in her willingness to walk up and down several flights of stairs on a daily basis. She is well pleased with the ALSA involvement and is learning about many resources available to her. Goals met. Plan: Scan your Advance Directives into you chart per instructions on the [facility] Advance Directives brochure. F/U at next ALS team clinic appointment. Available to patient and/or family as needed at [phone]. Time spent: 45 mins Billing Code: [id number] TIN Godinez-Liam documented in this encounter [facility] 01-09-2024 Note HNO ID: [id number] Author: RASHAUN PAREDES OT Service: ? Author Type: Occupational Therapist Type: Progress Notes Filed: 01/09/2024 12:06 Note Text: Episode Visit Count: 1 Therapist That Will Accept/Oversee The Plan Of Care: Rashaun Paredes Start of Care Date: 01/09/24 Onset Date: 01/07/24 Plan of Care Certification Date: 01/09/24 Next Certification Due Date: 03/10/24 Patient Identified by Name and Date of : Yes [facility] REHABILITATION AND SPORTS THERAPY OCCUPATIONAL THERAPY EVALUATION PLAN OF CARE: Assessment: Waldemar Hudson presents with diagnosis of PLS that interferes with rising from a chair, walking, walking in the house, walking in the community, stair negotiation, lifting, heavy exertion, bending, physical activities, recreational activities, kneeling, running, jumping, squatting, reaching overhead, driving, cleaning, cooking, dressing, gripping, pinching, twisting, pulling, pushing, carrying, bed mobility . She presents with impairments in ADL's, balance, coordination, independence in exercise, joint mobility, overall function, and patient reported outcome measures. Patient did not complete the PROMIS? (Patient Reported Outcome Measures Information System). Prognosis for therapy is Good due to: current objective clinical presentation, good support system/ coping skills . She will benefit from skilled therapy services to meet the goals established for this plan of care as noted below. Goals for Episode of Care created on 01/09/24 through 03/10/24 Patient will complete HEP at Modified Independent level.ESTABLISHED Patient will report improved efficiency with toileting and dressing with purchase of recommended equipment (i.e. pocket dresser tool and elevated toilet seat with carry case). ESTABLISHED Patient will tolerate splinting and verbalize understanding of splinting schedule, needs and precautions. ESTABLISHED Patient will complete custom wheelchair process ESTABLISHED Patient Goals: No clear goal identified at this time Planned Interventions, Frequency, and Duration: Current Frequency: 1 visit Duration: 1 visit Total Number of Visits Planned: 1 Planned Treatment Interventions: Patient/Family/Caregiver Education, Functional training, Self-nursing home management (01424), Therapeutic exercise (36106) (Wheelchair Management) PLAN FOR NEXT VISIT:Wheelchair Evaluation Patient demonstrates good understanding of plan of care and treatment. The above goals and plan of care were discussed and agreed upon by patient/family. SUBJECTIVE: Patient being seen today as part of interdisciplinary ALS Clinic Functional Limitations: rising from a chair, walking, walking in the house, walking in the community, stair negotiation, lifting, heavy exertion, bending, physical activities, recreational activities, kneeling, running, jumping, squatting, reaching overhead, driving, cleaning, cooking, dressing, gripping, pinching, twisting, pulling, pushing, carrying, bed mobility Prior Level of Function: Independent without limitations Patient Goals: No clear goal identified at this time Intake Information: Prescription present Previous Treatment: Physical Therapy , Aquatic PT, Occupational Therapy, Speech Therapy , NSAIDs , Heat Falls Interview: Two or more falls in the last year (1 while standing from toilet and 1 during ambulation in which R knee gave out) Falls Intervention: More thorough falls assessment to be performed Relevant History Past Relevant Medical Conditions: Cardiac, Thyroid Disease, Comments (PLS) Right or Left Handed: Left 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[employer]) Recreation / Current Exercise: None Hobbies / Interests: Crocheting, playing with grandson, writing research papers Home Environment Patient Lives With: Spouse Assistance Available: 24-Hour Home Type: Apt/Condo, Multi-Level Entry To Home: Stairs, With Rail Number Of Stairs Into Home: 15 (Bilateral rails) Number Of Stairs To Bed/Bath: 17 Stairs to Bed/Bath with: Bilateral Rail Tub/Shower Type: Walk-in shower Laundry: Bedroom floor - spouse completes Equipment Owned: Grab Bars- Shower, Shower Chair, Hand Held Shower, Grab Bars- Toilet, Walker- Wheeled (Comfort height toilet, feather weight transport chair, infared sauna, ALS Dining Kit) Transportation: Travels as a passenger, SUV Pain: Pain Pain Level: 2 Pain Location: Knee - Right Description: Sharp, Stabbing Frequency: Intermittent Post Treatment Pain Post Treatment Pain Level: No Change PROMIS Scales Failed to redirect to the Timeline version of the REVFS SmartLink. 12/06/2023 12/26/2023 01/08/2024 Higher is Better Phys Func - Score 23 (severe dysfunction) 23 (severe dysfunction) Phys Func - Percentile 0 0 Self-Eff Symptom - Score 37 (Low) Self-Eff Symptom - Percentile 10 T-scores: mean of general population = 50. 5 points is clinically meaningfully difference Percentiles provide an ind (more content not included)... [facility] 01-09-2024 History of Present illness Narrative Images from the original note were not included. Episode Visit Count: 1 Therapist That Will Accept/Oversee The Plan Of Care: Rashaun Paredes Start of Care Date: 01/09/24 Onset Date: 01/07/24 Plan of Care Certification Date: 01/09/24 Next Certification Due Date: 03/10/24 Patient Identified by Name and Date of : Yes [facility] REHABILITATION AND SPORTS THERAPY OCCUPATIONAL THERAPY EVALUATION PLAN OF CARE: Assessment: Waldemar Hudson presents with diagnosis of PLS that interferes with rising from a chair, walking, walking in the house, walking in the community, stair negotiation, lifting, heavy exertion, bending, physical activities, recreational activities, kneeling, running, jumping, squatting, reaching overhead, driving, cleaning, cooking, dressing, gripping, pinching, twisting, pulling, pushing, carrying, bed mobility . She presents with impairments in ADL's, balance, coordination, independence in exercise, joint mobility, overall function, and patient reported outcome measures. Patient did not complete the PROMIS (Patient Reported Outcome Measures Information System). Prognosis for therapy is Good due to: current objective clinical presentation, good support system/ coping skills . She will benefit from skilled therapy services to meet the goals established for this plan of care as noted below. Goals for Episode of Care created on 01/09/24 through 03/10/24 Patient will complete HEP at Modified Independent level.ESTABLISHED Patient will report improved efficiency with toileting and dressing with purchase of recommended equipment (i.e. pocket dresser tool and elevated toilet seat with carry case). ESTABLISHED Patient will tolerate splinting and verbalize understanding of splinting schedule, needs and precautions. ESTABLISHED Patient will complete custom wheelchair process ESTABLISHED Patient Goals: No clear goal identified at this time Planned Interventions, Frequency, and Duration: Current Frequency: 1 visit Duration: 1 visit Total Number of Visits Planned: 1 Planned Treatment Interventions: Patient/Family/Caregiver Education, Functional training, Self-nursing home management (23064), Therapeutic exercise (58840) (Wheelchair Management) PLAN FOR NEXT VISIT:Wheelchair Evaluation Patient demonstrates good understanding of plan of care and treatment. The above goals and plan of care were discussed and agreed upon by patient/family. SUBJECTIVE: Patient being seen today as part of interdisciplinary ALS Clinic Functional Limitations: rising from a chair, walking, walking in the house, walking in the community, stair negotiation, lifting, heavy exertion, bending, physical activities, recreational activities, kneeling, running, jumping, squatting, reaching overhead, driving, cleaning, cooking, dressing, gripping, pinching, twisting, pulling, pushing, carrying, bed mobility Prior Level of Function: Independent without limitations Patient Goals: No clear goal identified at this time Intake Information: Prescription present Previous Treatment: Physical Therapy , Aquatic PT, Occupational Therapy, Speech Therapy , NSAIDs , Heat Falls Interview: Two or more falls in the last year (1 while standing from toilet and 1 during ambulation in which R knee gave out) Falls Intervention: More thorough falls assessment to be performed Relevant History Past Relevant Medical Conditions: Cardiac, Thyroid Disease, Comments (PLS) Right or Left Handed: Left 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[employer]) Recreation / Current Exercise: None Hobbies / Interests: Crocheting, playing with grandson, writing research papers Home Environment Patient Lives With: Spouse Assistance Available: 24-Hour Home Type: Apt/Condo, Multi-Level Entry To Home: Stairs, With Rail Number Of Stairs Into Home: 15 (Bilateral rails) Number Of Stairs To Bed/Bath: 17 Stairs to Bed/Bath with: Bilateral Rail Tub/Shower Type: Walk-in shower Laundry: Bedroom floor - spouse completes Equipment Owned: Grab Bars- Shower, Shower Chair, Hand Held Shower, Grab Bars- Toilet, Walker- Wheeled (Comfort height toilet, feather weight transport chair, infared sauna, ALS Dining Kit) Transportation: Travels as a passenger, SUV Pain: Pain Pain Level: 2 Pain Location: Knee - Right Description: Sharp, Stabbing Frequency: Intermittent Post Treatment Pain Post Treatment Pain Level: No Change PROMIS Scales Failed to redirect to the Timeline version of the REVFS SmartLink. 12/06/2023 12/26/2023 01/08/2024 Higher is Better Phys Func - Score 23 (severe dysfunction) 23 (severe dysfunction) Phys Func - Percentile 0 0 Self-Eff Symptom - Score 37 (Low) Self-Eff Symptom - Percentile 10 T-scores: mean of general population = 50. 5 points is clinically meaningfully difference Percentiles provide an indication of how the patient's score ranks in relation to the general population. Higher percentile rankings indicate better function/quality of life. 50th percentile is the average of the general population and indicates half of respondents had a worse score. OBJECTIVE MEASURES WITH LEVEL OF FUNCTION: Communication Deficits: Expressive Deficits Follows Commands: 3-step Commands Vision Vision Deficits: Wears corrective lenses Corrective lenses: Cataract surgery done in R eye, has L eye scheduled for Sunday. Hand Strength R Hr Coordinator Position 2 (lbs): 45 lbs L Hr Coordinator Position 2 (lbs): 40 lbs Communication Comprehension: Complex auditory and visual communication Thought Process: Logical, coherent thought form Expression: Expresses complex ideas clearly and fluently (Dysarthric) Conversation: Appropriate thought content (Dysarthric) General Observations UE Observations: Hypertrophy of bilateral thenar eminences and reduced palmar arches. Starting with flexion contracture of L 2nd digit and minimally at R 5th digit Movement Description Movement Impairment(s): (Intact bilateral digit opposition) Sensory Sensory Deficits: (Intact) Corrective lenses: Cataract surgery done in R eye, has L eye scheduled for Sunday. UE AROM R UE AROM: WFL L UE AROM: WFL UE and Cervical Strength R UE Strength: Shoulder 4+/5, otherwise 5/5 throughout L UE Strength: Shoulder 4+/5, otherwise 5/5 throughout Current Activities Of Daily Living Feeding: Independent Grooming: Independent Bathing Upper Body: Minimal Assistance Bathing Lower Body: Modified Independent Dressing Upper Body: Moderate Assistance (Assist for overhead and button management) Dressing Lower Body : Minimal Assistance (Assist for compression socks. Uses shoes as slip in shoes) Toileting: Independent Instrumental Activities of Daily Living Meal/Beverage Prep: Total Assistance Cooking: Total Assistance Cleaning: Total Assistance Laundry: Total Assistance Medication Management with Strategies: Set Up Shopping: Total Assistance Money Management: Independent Sleeping: Independent (Averages 6-7 hours, wakes intermittently due to pain in her knee) Driving: Total Assistance Current Functional Mobility Rolling: Modified Independent Supine To Sit: Minimal Assistance (Trunk management) Sit To Supine: Moderate Assistance (BLE management) Scooting: Modified Independent Sit To Stand: Minimal Assistance Stand To Sit: Modified Independent Bed To Chair: Contact Guard Assistance Bed To Chair Transfer Type: Stepping Bed To Chair Transfer Equipment: Wheeled Walker Toilet/Commode: Contact Guard Assistance Tub Transfer: Contact Guard Assistance Car Transfer: Contact Guard Assistance Functional Mobility: Contact Guard Assistance Functional Mobility Device: Wheeled Walker Education: Education Learning Preferences: Demonstration, Explanation, Performance, Printed Materials Barriers: None Learning/educational needs: Lifestyle changes, Health promotion, Safety, Home exercise program, Plan of Care, Changes in Plan of Care, Posture, Brace Fit, Body Mechanics Education Provided: Yes, see treatment interventions for education provided Education Provided To: Patient, Family Education Mode/Type: Demonstration, Explanation/Discussion, Literature/Printed Materials, Performance, Teach Back Response to Education/Teach Back: Return Demonstration, States/Identifies TREATMENT: OT Treatment Interventions : Wheelchair Management, Self-Fpc Management, Therapeutic Exercise Evaluation Therapeutic Exercise: 1: Patient noting ownership of [employer], but no specific regimen. Provided handout for engagement in HEP to promote intrinsic hand strength, digit isolation/dexterity, digit flexion/extension, gross grasp, lateral and tip-to-tip pinch while promoting joint integrity. 2: Discussed addition of exercise routine to promote cardio-pulmonary status. Discussed benefits in promotion of aerobic exercise for neuro-degenerative disease and how to titrate based on fatigue and recovery using 2 hour rule. Handout on ALS Exercise and ECT. Skilled Intervention: Patient was educated in proper exercise technique and purpose for exercises. Reviewed and educated patient on additions/changes for home exercise program as above (*). Skilled judgment was used in selection of appropriate interventions. Provided written instruction for home exercise program to facilitate proper performance and compliance. Correct performance of therapeutic exercises was facilitated with verbal and visual cuing. Educated patient on rationale for performing exercises in regards to increase ease of ADL and ROM and function . Patient education as noted. Self-Fpc Management: 1: Over-viewed results of initial evaluation demonstrating initial changes in L hand joint integrity and primarily changes in LE strength affecting mobility and maximal independence in ADL's and IADL's. 2: Discussed benefits of elevated toilet seat with removable arms and carry-case for when traveling to other friends homes with lower seats. Handout provided for private purchase 3: Shown video on pocket dresser tool and benefits for improved indpeendence with dressing. Handout provided for private purchase. 4: Due to increasing flexion contracture of L 2nd and to lesser extent 5th digit, handout provided for trigger finger splint to maintain joint integrity, prevent contracture/deformity, and maintain ROM. Pt. verbalizing agreement and understanding Skilled Intervention: Skilled judgment in the selection of proper modification for activity of daily living/home management based on clinical presentation, deficits, and needs. Educated the patient regarding recommendations and provided written instruction to facilitate compliance. Reviewed patient specific diagnosis in relation to activities of daily living/home management. Activity progression based on professional judgement. Wheelchair Management: 1: Discussed benefits of initiating custom w/c process with all information provided on steps to obtain w/c with patient verbalizing good understanding after education on benefits of vendor presence to provide support with changes experienced as part of neuro-degenerative disease course. Verbalizing understanding Skilled Intervention: Professional judgment used for assessment of appropriate prescription of new wheelchair and components. Billing * Evaluation Moderate Complexity: 1 Unit Therapeutic Exercise Treatment Minutes: 5 Self-Care/Home Management Treatment Minutes: 15 Wheelchair Management Treatment Minutes: 10 Skilled Treatment Time Minutes (timed and untimed codes): 40 Total Session Time (minutes): 40 Session Start Time : 1108 Session Stop Time : 1148 Rashaun Paredes OT documented in this encounter [facility] 01-07-2024 Note HNO ID: [id number] Author: DAJA GOMEZ PTA Service: ? Author Type: [employer] Type: Progress Notes Filed: 01/07/2024 16:52 Note Text: Episode Visit Count: 23 Therapist That Will Accept/Oversee The Plan Of Care: Nathan Madrigal PT, ANABELLE Start of Care Date: 10/03/23 Onset Date: (2011 and R LE symptoms of stiffness and pain worsening in the last month) Plan of Care Certification Date: 12/28/23 Next Certification Due Date: 02/15/24 Patient Identified by Name and Date of : Yes REHABILITATION AND SPORTS THERAPY PHYSICAL THERAPY TREATMENT NOTE ASSESSMENT: Waldemar Simran Hudson tolerated the session with no issues. She demonstrated difficulty with right LE tone and spasms this date while performing exercises. The patient will continue to benefit from ongoing skilled physical therapy to progress toward set goals. PLAN FOR NEXT VISIT: Resume standing exercises as able. Continue LE passive stretching and LE/core strengthening exercises. SUBJECTIVE: Patient reported that she had a good weekend and then last night had increased pain. Pain: Pain Pain Level: 3 Pain Location: Knee - Right Description: Aching, Sharp, Stiffness OBJECTIVE MEASURES WITH LEVEL OF FUNCTION: TREATMENT: Therapeutic Exercise: 1: Seated forward stretch over yellow theraball with bilateral UE's and ball on therapist's lap in front of patient x 10 reps forward and then 10 reps each in scaption for stretching 2: Seated marching with band x 15 reps w/ pink band 3: Seated resisted adduction x 30 reps 4: Seated resisted abduction x 30 reps w/ pink 5: Supine bridging 2 x 10 reps over yellow ball 6: Supine bent leg marching 2 x 10 reps alternating with LE rested on yellow ball 7: SAQ 2 x 10 reps each LE with assist 8: Supine lower trunk rotation with assist with bilateral LE rested on yellow therapy ball x 15 each direction 9: Partial curl ups with yellow ball rolled up her knees 2 x 10 10: Supine LAQ 2 x 10 reps with LE rested over yellow ball Skilled Intervention: Patient was educated in proper exercise technique and purpose for exercises. Skilled judgment was used in selection of appropriate interventions. Manual Therapy: Skilled Intervention: Manual skills to improve joint mobility, ROM, and decrease pain. Utilized anatomy knowledge of the therapist, and assessment of patient's response to intervention. Billing Therapeutic Exercise Treatment Minutes: 35 Manual TherapyTreatment Minutes: 20 Skilled Treatment Time Minutes (timed and untimed codes): 55 Total Session Time (minutes): 62 Session Start Time : 1534 Session Stop Time : 1636 Daja Gomez PTA [facility] 01-07-2024 History of Present illness Narrative Episode Visit Count: 23 Therapist That Will Accept/Oversee The Plan Of Care: Nathan Madrigal PT, ANABELLE Start of Care Date: 10/03/23 Onset Date: (2011 and R LE symptoms of stiffness and pain worsening in the last month) Plan of Care Certification Date: 12/28/23 Next Certification Due Date: 02/15/24 Patient Identified by Name and Date of : Yes REHABILITATION AND SPORTS THERAPY PHYSICAL THERAPY TREATMENT NOTE ASSESSMENT: Waldemar Hudson tolerated the session with no issues. She demonstrated difficulty with right LE tone and spasms this date while performing exercises. The patient will continue to benefit from ongoing skilled physical therapy to progress toward set goals. PLAN FOR NEXT VISIT: Resume standing exercises as able. Continue LE passive stretching and LE/core strengthening exercises. SUBJECTIVE: Patient reported that she had a good weekend and then last night had increased pain. Pain: Pain Pain Level: 3 Pain Location: Knee - Right Description: Aching, Sharp, Stiffness OBJECTIVE MEASURES WITH LEVEL OF FUNCTION: TREATMENT: Therapeutic Exercise: 1: Seated forward stretch over yellow theraball with bilateral UE's and ball on therapist's lap in front of patient x 10 reps forward and then 10 reps each in scaption for stretching 2: Seated marching with band x 15 reps w/ pink band 3: Seated resisted adduction x 30 reps 4: Seated resisted abduction x 30 reps w/ pink 5: Supine bridging 2 x 10 reps over yellow ball 6: Supine bent leg marching 2 x 10 reps alternating with LE rested on yellow ball 7: SAQ 2 x 10 reps each LE with assist 8: Supine lower trunk rotation with assist with bilateral LE rested on yellow therapy ball x 15 each direction 9: Partial curl ups with yellow ball rolled up her knees 2 x 10 10: Supine LAQ 2 x 10 reps with LE rested over yellow ball Skilled Intervention: Patient was educated in proper exercise technique and purpose for exercises. Skilled judgment was used in selection of appropriate interventions. Manual Therapy: Skilled Intervention: Manual skills to improve joint mobility, ROM, and decrease pain. Utilized anatomy knowledge of the therapist, and assessment of patient's response to intervention. Billing Therapeutic Exercise Treatment Minutes: 35 Manual TherapyTreatment Minutes: 20 Skilled Treatment Time Minutes (timed and untimed codes): 55 Total Session Time (minutes): 62 Session Start Time : 1533 Session Stop Time : 1635 Daja Gomez PTA documented in this encounter [facility] 01-04-2024 Telephone encounter Note Per call to patient, accepted offer for ALS team clinic appointment on 01-09-24. Message forwarded to and . Rhea Sapp RN, BSN [facility] 01-04-2024 Miscellaneous Notes Per call to patient, accepted offer for ALS team clinic appointment on 01-09-24. Message forwarded to and . Rhea Sapp RN, BSN documented in this encounter [facility] 01-03-2024 Note HNO ID: [id number] Author: CORI HOPE R Ac Service: ? Author Type: Diplomat of Acupuncture Type: Progress Notes Filed: 01/03/2024 16:04 Note Text: Waldemar Hudson a 68 year old female presents to the acupuncture clinic on 01/03/24 for a follow up visit. Patient identity confirmed by name and : Yes This is the 7 visit for the patient this year It has been 1 week(s) since the last acupuncture treatment. Last treatment date: 12/27/2023 Initial Acupuncture treatment date: 11/12/2023 Chief Complaint: Primary lateral sclerosis, right knee pain SUBJECTIVE Patient reports 10% improved pain in right knee and 25% improved muscle spasm in right lower limb. She noted her left leg was not bothering her this week. Patient has been battling MS since 2012. Patient has history of Lyme disease, mold exposure and thyroid cancer. Thyroidism Trialed PT, dry needling, chiropractic, massage. PAIN ASSESSMENT: Currently experiencing pain Pain level (0 no pain at all to 10 being the worst): 4 OBJECTIVE: Physical Exam: Tenderness: knees and feet Pain with palpation: na ROM: limited ROM Orthopedic Tests: na Tightness: knees Divina/Trigger points: na Visual Inspection Discoloration: na Edema: no Gait/Ambulation: normal Ovalle: good Qi/Patient vitality: normal Alert Well-Groomed Normal Imaging reports Images on file See EPIC Images have been reviewed no TCM Tongue: NA TCM Pulse: thin and weak ASSESSMENT Patient presents with signs and symptoms consistent with the diagnosis. Patient would benefit from acupuncture therapy to address listed deficiencies and return to PLOF. Pt was educated on symptoms, prognosis, plan of care and activity modifications. Pt verbalized understanding and agreed to begin care. TCM Pattern: PLS due to Qi and blood deficiency. TCM Treatment Principle: Calm Ovalle. Promote smooth flow of Qi and blood. Open channel. Reduce pain. PLAN OF CARE Counseled patient on risks of acupuncture treatment including pain, infection, bleeding, and no relief of pain. The patient was positioned comfortably. There was no evidence of infection at the site of needle insertions. Acupuncture Treatment: Treatment/Needle Set 1, Supine: Points: Yin Gaytan, motor line 2 points bilaterally on the scalp, ear ovalle men, R: Ling Gu Da Austen, Jan Zenon, SJ3, SI3, Di Hudson, GB31 15 minutes face to face with patient for set 1 Treatment/Needle Set 2, Supine: Points: R: GB34, Esquivel Chi, SP9, SP6, R: Si MA points 3, Xi Dinh, KD10, SP10, GB41, ST43 10 minutes face to face with patient for set 2 Calcium were retained for 30 minutes # of needles inserted: 30 # of needles withdrawn: 30 Adjunct techniques used: TDP Infrared Heat Lamp- Applied to Rt. Hip and right knee Patient tolerated the procedure well. UNIVERSAL PROTOCOL / SAFETY CHECKLIST Procedure to be Performed: Acupuncture Sign In: A Moment of CARE was completed. Personnel directly involved with the procedure wore the appropriate PPE (Personal Protective Equipment). Patient/Surrogate Stated/Verified: PATIENT VERIFIED(optional for EMERGENT procedures): Patient name, Date of , Relevant allergies, and The intended procedure Time Out Communication: Intended patient and procedure match the source documents. Consent documented and matches the intended procedure. Sign Out: SIGN OUT (optional for EMERGENT procedures): All instruments, equipment, possible retained foreign bodies accounted for. Trenton Hanson Provider Name: Trenton Hanson 25 Total minutes face to face time spent with patient Acupuncture and [place] herbal therapy are not a substitute for conventional medical diagnosis and treatment. Patient agrees that either: 1. A diagnostic exam has been performed by a physician or chiropractor within the last six months regarding the condition for which they are seeking acupuncture treatment. or 2. If no diagnostic exam by a physician or chiropractor has been done within the last six months regarding the condition for which patient is seeking treatment, the Processing Analyst, per [place] Law, recommends that this diagnostic exam be performed. [facility] 01-03-2024 History of Present illness Narrative Waldemar Hudson a 68 year old female presents to the acupuncture clinic on 01/03/24 for a follow up visit. Patient identity confirmed by name and : Yes This is the 7 visit for the patient this year It has been 1 week(s) since the last acupuncture treatment. Last treatment date: 12/27/2023 Initial Acupuncture treatment date: 11/12/2023 Chief Complaint: Primary lateral sclerosis, right knee pain SUBJECTIVE Patient reports 10% improved pain in right knee and 25% improved muscle spasm in right lower limb. She noted her left leg was not bothering her this week. Patient has been battling MS since 2012. Patient has history of Lyme disease, mold exposure and thyroid cancer. Thyroidism Trialed PT, dry needling, chiropractic, massage. PAIN ASSESSMENT: Currently experiencing pain Pain level (0 no pain at all to 10 being the worst): 4 OBJECTIVE: Physical Exam: Tenderness: knees and feet Pain with palpation: na ROM: limited ROM Orthopedic Tests: na Tightness: knees Divina/Trigger points: na Visual Inspection Discoloration: na Edema: no Gait/Ambulation: normal Ovalle: good Qi/Patient vitality: normal Alert Well-Groomed Normal Imaging reports Images on file See EPIC Images have been reviewed no TCM Tongue: NA TCM Pulse: thin and weak ASSESSMENT Patient presents with signs and symptoms consistent with the diagnosis. Patient would benefit from acupuncture therapy to address listed deficiencies and return to PLOF. Pt was educated on symptoms, prognosis, plan of care and activity modifications. Pt verbalized understanding and agreed to begin care. TCM Pattern: PLS due to Qi and blood deficiency. TCM Treatment Principle: Calm Ovalle. Promote smooth flow of Qi and blood. Open channel. Reduce pain. PLAN OF CARE Counseled patient on risks of acupuncture treatment including pain, infection, bleeding, and no relief of pain. The patient was positioned comfortably. There was no evidence of infection at the site of needle insertions. Acupuncture Treatment: Treatment/Needle Set 1, Supine: Points: Yin Gaytan, motor line 2 points bilaterally on the scalp, ear ovalle men, R: Ling Ed Da Austen, Jan Zenon, SJ3, SI3, Di Hudson, GB31 15 minutes face to face with patient for set 1 Treatment/Needle Set 2, Supine: Points: R: GB34, Esquivel Chi, SP9, SP6, R: Si MA points 3, Xi Dinh, KD10, SP10, GB41, ST43 10 minutes face to face with patient for set 2 Calcium were retained for 30 minutes # of needles inserted: 30 # of needles withdrawn: 30 Adjunct techniques used: TDP Infrared Heat Lamp- Applied to Rt. Hip and right knee Patient tolerated the procedure well. UNIVERSAL PROTOCOL / SAFETY CHECKLIST Procedure to be Performed: Acupuncture Sign In: A Moment of CARE was completed. Personnel directly involved with the procedure wore the appropriate PPE (Personal Protective Equipment). Patient/Surrogate Stated/Verified: PATIENT VERIFIED(optional for EMERGENT procedures): Patient name, Date of , Relevant allergies, and The intended procedure Time Out Communication: Intended patient and procedure match the source documents. Consent documented and matches the intended procedure. Sign Out: SIGN OUT (optional for EMERGENT procedures): All instruments, equipment, possible retained foreign bodies accounted for. Trenton Hanson Provider Name: Trenton Hanson 25 Total minutes face to face time spent with patient Acupuncture and [place] herbal therapy are not a substitute for conventional medical diagnosis and treatment. Patient agrees that either: 1. A diagnostic exam has been performed by a physician or chiropractor within the last six months regarding the condition for which they are seeking acupuncture treatment. or 2. If no diagnostic exam by a physician or chiropractor has been done within the last six months regarding the condition for which patient is seeking treatment, the Processing Analyst, per [place] Law, recommends that this diagnostic exam be performed. documented in this encounter [facility] 01-02-2024 Note HNO ID: [id number] Author: NATHAN MADRIGAL PT Service: ? Author Type: Physical Therapist Type: Progress Notes Filed: 01/02/2024 17:08 Note Text: Episode Visit Count: 22 Therapist That Will Accept/Oversee The Plan Of Care: Nathan Madrigal PT, ANABELLE Start of Care Date: 10/03/23 Onset Date: (2011 and R LE symptoms of stiffness and pain worsening in the last month) Plan of Care Certification Date: 12/28/23 Next Certification Due Date: 02/15/24 Patient Identified by Name and Date of : Yes REHABILITATION AND SPORTS THERAPY PHYSICAL THERAPY TREATMENT NOTE ASSESSMENT: Waldemar Hudson tolerated the session with no issues. She demonstrated decreased L LE tone this date with improved L knee extension. Patient did have increased R LE tone and spasticity initially with marching over yellow ball. The patient will continue to benefit from ongoing skilled physical therapy to progress toward set goals. PLAN FOR NEXT VISIT: Resume standing exercises as able. Continue LE passive stretching and LE/core strengthening exercises. SUBJECTIVE: Patient rates her R knee pain at 3 out of 10 today. She saw a new neurologist at the [facility] on 12/31/2023 and was given the diagnosis of primary lateral sclerosis. Patient states that they told her that there is not anything that can be done about her speech, but that she recommended PRESCHOOL ADVISER referral closer to home and also consults were made to the ALS/MND and spasticity clinics. She had 12 vials of blood drawn for specific testing. Pain: Pain Pain Level: 3 Pain Location: Knee - Right Post Treatment Pain Post Treatment Pain Level: Better Post Treatment Pain Location: Knee - Right OBJECTIVE MEASURES WITH LEVEL OF FUNCTION: No objective measurements taken this date. TREATMENT: Therapeutic Exercise: 1: Supine LAQ 2 x 10 reps with LE rested over yellow ball 2: Seated marching with band x 15 reps w/ pink band (Did not complete today) 3: Seated resisted adduction x 30 reps 4: Seated resisted abduction x 30 reps w/ pink (Did not complete today) 5: Supine bridging 2 x 10 reps over yellow ball 6: Supine bent leg marching 2 x 10 reps alternating with LE rested on yellow ball 7: SAQ 2 x 10 reps each LE with assist (Did not complete today) 8: Supine lower trunk rotation with assist with bilateral LE rested on yellow therapy ball x 15 each direction 9: Partial curl ups with yellow ball rolled up her knees 2 x 10 (DId not complete today) Skilled Intervention: Skilled judgment was used in selection of appropriate interventions. Correct performance of therapeutic exercises was facilitated with tactile cuing. Manual Therapy: 1: Passive stretching to each LE for hips flexion, abduction, long axis rotation and hamstrings stretching, knees flexion/extension and bilateral ankle DF/PFmotions x 15 reps each. Skilled Intervention: Manual skills to improve joint mobility, ROM, and decrease pain. Utilized anatomy knowledge of the therapist, and assessment of patient's response to intervention. Billing Therapeutic Exercise Treatment Minutes: 30 Manual TherapyTreatment Minutes: 20 Skilled Treatment Time Minutes (timed and untimed codes): 50 Total Session Time (minutes): 57 Session Start Time : 1558 Session Stop Time : 1655 Nathan Madrigal PT, MBA [facility] 01-02-2024 History of Present illness Narrative Episode Visit Count: 22 Therapist That Will Accept/Oversee The Plan Of Care: Nathan Madrigal PT, MBA Start of Care Date: 10/03/23 Onset Date: (2011 and R LE symptoms of stiffness and pain worsening in the last month) Plan of Care Certification Date: 12/28/23 Next Certification Due Date: 02/15/24 Patient Identified by Name and Date of : Yes REHABILITATION AND SPORTS THERAPY PHYSICAL THERAPY TREATMENT NOTE ASSESSMENT: Waldemar Hudson tolerated the session with no issues. She demonstrated decreased L LE tone this date with improved L knee extension. Patient did have increased R LE tone and spasticity initially with marching over yellow ball. The patient will continue to benefit from ongoing skilled physical therapy to progress toward set goals. PLAN FOR NEXT VISIT: Resume standing exercises as able. Continue LE passive stretching and LE/core strengthening exercises. SUBJECTIVE: Patient rates her R knee pain at 3 out of 10 today. She saw a new neurologist at the [facility] on 12/31/2023 and was given the diagnosis of primary lateral sclerosis. Patient states that they told her that there is not anything that can be done about her speech, but that she recommended PRESCHOOL ADVISER referral closer to home and also consults were made to the ALS/MND and spasticity clinics. She had 12 vials of blood drawn for specific testing. Pain: Pain Pain Level: 3 Pain Location: Knee - Right Post Treatment Pain Post Treatment Pain Level: Better Post Treatment Pain Location: Knee - Right OBJECTIVE MEASURES WITH LEVEL OF FUNCTION: No objective measurements taken this date. TREATMENT: Therapeutic Exercise: 1: Supine LAQ 2 x 10 reps with LE rested over yellow ball 2: Seated marching with band x 15 reps w/ pink band (Did not complete today) 3: Seated resisted adduction x 30 reps 4: Seated resisted abduction x 30 reps w/ pink (Did not complete today) 5: Supine bridging 2 x 10 reps over yellow ball 6: Supine bent leg marching 2 x 10 reps alternating with LE rested on yellow ball 7: SAQ 2 x 10 reps each LE with assist (Did not complete today) 8: Supine lower trunk rotation with assist with bilateral LE rested on yellow therapy ball x 15 each direction 9: Partial curl ups with yellow ball rolled up her knees 2 x 10 (DId not complete today) Skilled Intervention: Skilled judgment was used in selection of appropriate interventions. Correct performance of therapeutic exercises was facilitated with tactile cuing. Manual Therapy: 1: Passive stretching to each LE for hips flexion, abduction, long axis rotation and hamstrings stretching, knees flexion/extension and bilateral ankle DF/PFmotions x 15 reps each. Skilled Intervention: Manual skills to improve joint mobility, ROM, and decrease pain. Utilized anatomy knowledge of the therapist, and assessment of patient's response to intervention. Billing Therapeutic Exercise Treatment Minutes: 30 Manual TherapyTreatment Minutes: 20 Skilled Treatment Time Minutes (timed and untimed codes): 50 Total Session Time (minutes): 57 Session Start Time : 1558 Session Stop Time : 1654 Nathan Madrigal PT, MBA documented in this encounter [facility] 12-31-2023 History of Present illness Narrative Referring Physician: No referring provider defined for this encounter. Consultation requested by the patient for an opinion regarding upper motor neuron disease. My final recommendations will be communicated back to the requesting physician by way of shared Medical record or letter to requesting physician via fax or [place] mail. 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 She reports frequent travel to multiple , , and [place] [phone]. 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 In 2011 she returned from a trip to [place] and developed flu-like symptoms. A few months later she noted gait changes due to catching her left toes on the ground. She also noted difficulty arising from chairs. In late 2012 she noted similar symptoms in the right leg. In late 2014 she noted left arm problems, with finger weakness leading to difficulties writing as well as trouble reaching overhead. In 2017 she noted similar problems with the right arm. She reports gait changes leading to use of a cane in 03/2015, then a walker in 2016, and a wheelchair in 2023. The most recent gait limitations are worsened by right knee pain which she attributes to arthritis. In 2016 a neurologist commented on dysarthria though the patient was not noticing issues at that time. She reports progressive dysarthria from 2016 to present, though she was still able to give professional presentations through 2019. She has noted dysphagia, worse with liquids, as well as throat spasms with some oral intake. She was previously seen by neurology at [facility] and had MRIs, EMG, labs, and CSF. She was given a diagnosis of PLS. ROS: CONSTITUTIONAL: No reported fevers, chills, night sweats. Positive for unintentional weight loss of 30 pounds over 10 years. EYES: Recent improvement in vision after cataract surgery. No eye pain or orbital swelling reported. HEENT: No hearing changes or vertiginous symptoms indicated. No history of nose bleeds reported. RESPIRATORY: No reported cough, sputum, wheezing and dyspnea. CARDIOVASCULAR: Negative for significant chest pain, and palpitations per report. GI: GERD and poor appetite. : Prior incontinence - now improved. MUSCLOSKELETAL: See HPI SKIN: Frequent rashes. PSYCH: No reported depression or anxiety symptoms. NEURO: Per HPI above. No reported sleep disturbance. Prior Studies: Labs: normal: SHELLY, metanephrines, Lyme PCR (2014); VLCFA, copper, and B12 (2015) abnormal: none CSF Labs 10/28/2015: normal: WBC 2, RBC 2, glucose 67 IgG index, HTLV, abnormal: protein 46 (nl 15-45), OCB with 4 bands corresponding to serum though more prominent in CSF EMG 10/22/2017: NCS: Sensory: L sural, median, and ulnar Motor: nl L peroneal to EDB, ulnar, and median NEE: fibs in L FDI and pro ter, high amp MUAP in FDI; LUE/LE/T PSP nl MRI brain 10/23/2022: No acute abnormality. Sequelae of chronic microvascular disease. MRI cervical spine 10/22/2017: No acute fracture or malalignment. Mild degenerative changes of the cervical spine PAST MEDICAL HISTORY Diagnosis Date Arrhythmia irregular heart rate-several yrs ago-PVC's Endometriosis Esophageal reflux 05/24/2005 Lichen sclerosus PERS HX OF THYROID MALIGNANCY 05/24/2005 Primary lateral sclerosis (HCC) 2017 Snoring Uterine fibroid PAST SURGICAL HISTORY Procedure Laterality Date COLONOSCOPY FLX DX W/COLLJ SPEC WHEN PFRMD 09/03/2003 Colonoscopy COLONOSCOPY FLX DX W/COLLJ SPEC WHEN PFRMD 10/01/2014 Colonoscopy EGD TRANSORAL BIOPSY SINGLE/MULTIPLE 03/09/2006 Hiatal hernia/gastritis/esophagitis ESOPHAGOGASTRODUODENOSCOPY TRANSORAL DIAGNOSTIC 10/01/2014 EGD LAPS SURG CHOLECYSTECTOMY W/CHOLANGIOGRAPHY 03/12/2006 PAST SURGICAL HISTORY OF 03/12/2006 transvaginal sling REMOVAL SKN TAGS DIRECTOR CHECK FIBRQ TAGS ANY AREA UPW/15 03/18/2011 Ablation skin tags/ shave bx x 2 REMV CATARACT EXTRACAP,INSERT LENS 12/2023 S SLING BLADDER SALPINGO-OOPHORECTOMY COMPL/PRTL UNI/BI SPX 10/25/2000 Salpingo-oophorectomy THYROIDECTOMY TOTAL/COMPLETE 07/19/2001 For Cancer THYROIDECTOMY TOTAL/COMPLETE TOTAL ABDOMINAL HYSTERECT W/WO RMVL TUBE OVARY 10/25/2000 Hysterectomy, FIDE for fibroids and abnormal menstruation FAMILY HISTORY Problem Relation Age of Onset other (Other [Other]) Mother normal pressure hydrocephalous Thyroid Mother Heart Father Stroke Father other (DEMENTIA [Other]) Father frontotemporal dementia other (heart valve abnormality) Brother Aneurysm Brother Aneurysm Brother Heart Brother RHEUMATIC FEVER IN CHILDHOOD Stroke Maternal Grandmother Cancer Maternal Grandfather COLON Stroke Paternal Grandmother Aneurysm Grandson Social History Tobacco Use Smoking status: Never Smokeless tobacco: Never Substance Use Topics Alcohol use: Not Currently Comment: none since ~2018 Drug use: Yes Comment: microdose THC Physical Examination: BP 123/64 (BP Site: Right Arm, BP Position: Sitting, BP Cuff Size: Regular Adult) Pulse 70 Ht 170.2 cm (5' 7) Wt 73.5 kg (162 lb) SpO2 96% BMI 25.37 kg/m ALS-FRS: Bulbar Score (range: 0 - 12) 5 Fine Motor Score (range: 0 - 12) 6 Gross Motor Score (range: 0 - 12) 4 Respiratory Score (range: 0 - 12) 10 Total Score (range: 0 - 48) 25 SYSTEM DEVELOPMENT ENGINEER-LS: Laughing Score (range: 4 - 20) 11 Crying Score (range: 3 - 15) 9 Total Score (range: 7 - 35) 20 General: NAD, well-appearing HEENT: NCAT Neck: supple, no lymphadenopathy, no thyromegaly, no carotid bruits bilaterally Heart: RRR S1S2 Lungs: CTA Bilat, good effort Abd: soft, NT, ND, +BS Vascular: 2+ radial and DP pulses, trace peripheral edema Musculoskeletal: joints NT, very reduced R>L kneel ROM, no paraspinal tenderness Neurologic examination: MS: alert and responsive, language intact CN: PERRLA, EOMI, VFF, V1-V3 intact bilaterally, face symmetrical, hearing grossly intact bilaterally, palatal elevation and tongue protrusion midline, tongue movement slowed, no tongue fasciculations, severe spastic dysarthria, bilateral neck rotation 5/5, shoulder shrug 5/5 Motor: 5/5 neck flexion and extension, markedly spastic in LE>UE with limited ability to move RLE, no fasciculations Strength: Right Left Infraspinatus 5- 5- Deltoids 5 5 Biceps 5 5 Triceps 5 5 Pronators 5 5 Supinators 5 5 Wrist Extensors 5 5- Wrist Flexors 5 5 Finger Extensors 5- 5- Finger Flexors (med) 5 5 Finger Flexors (uln) 5 5 Finger Abductors 4+ 4+ Hip Flexors 4+ 4+ Hip Extensors 5 5 Hip Abductors 5 5 Hip Adductors 5 5 Knee Extensors 5 5 Knee ROM limited R>L Knee Flexors 5 5 Ankle Dorsiflexors 5 5 Ankle Plantarflexors 5 5 Ankle Invertors 5 5 Ankle Evertors 5 5 Toe Flexors 4 4 Toe Extensors 5 5 Sensory: intact LT, temp, and vib in all 4 extremities Reflexes: Right Left Biceps 3 3 Brachioradialis 3 3 Triceps 3 3 Knees 0 1 Ankles 2 2 plantar responses upgoing bilaterally; crossed adductors left to right; Amador's present bilaterally, no clonus bilateral ankles Cerebellar: FTN intact, DEBBIE slowed bilaterally, HTS difficult due to spasticity Gait: not attempted Assessment: Waldemar Hudson is a 68 year-old woman who has had progressive upper motor neuron symptoms and findings since 2011. 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 Int he absence of lower motor neuron features developing in the last 12 years, there is essentially no risk of progression to ALS. Management will be symptomatic. Plan: 1) consult to ALS/MND clinic 2) consult to spasticity clinic 3) consult to PRESCHOOL ADVISER closer to home 4) will forward her contact information to the [employer] Association 5) script sent for Nuedexta - bid for now; next week will send a new script for three times daily Joan Prieto MD documented in this encounter [facility] 12-31-2023 Note HNO ID: [id number] Author: JOAN PRIETO MD Service: ? Author Type: Physician Type: Progress Notes Filed: 01/01/2024 16:19 Note Text: Referring Physician: No referring provider defined for this encounter. Consultation requested by the patient for an opinion regarding upper motor neuron disease. My final recommendations will be communicated back to the requesting physician by way of shared Medical record or letter to requesting physician via fax or [place] mail. 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 She reports frequent travel to multiple , , and [place] [phone]. 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 In 2011 she returned from a trip to [facility] and developed flu-like symptoms. A few months later she noted gait changes due to catching her left toes on the ground. She also noted difficulty arising from chairs. In late 2012 she noted similar symptoms in the right leg. In late 2014 she noted left arm problems, with finger weakness leading to difficulties writing as well as trouble reaching overhead. In 2016 she noted similar problems with the right arm. She reports gait changes leading to use of a cane in 03/2015, then a walker in 2016, and a wheelchair in 2023. The most recent gait limitations are worsened by right knee pain which she attributes to arthritis. In 2015 a neurologist commented on dysarthria though the patient was not noticing issues at that time. She reports progressive dysarthria from 2016 to present, though she was still able to give professional presentations through 2020. She has noted dysphagia, worse with liquids, as well as throat spasms with some oral intake. She was previously seen by neurology at [facility] and had MRIs, EMG, labs, and CSF. She was given a diagnosis of PLS. ROS: CONSTITUTIONAL: No reported fevers, chills, night sweats. Positive for unintentional weight loss of 30 pounds over 10 years. EYES: Recent improvement in vision after cataract surgery. No eye pain or orbital swelling reported. HEENT: No hearing changes or vertiginous symptoms indicated. No history of nose bleeds reported. RESPIRATORY: No reported cough, sputum, wheezing and dyspnea. CARDIOVASCULAR: Negative for significant chest pain, and palpitations per report. GI: GERD and poor appetite. : Prior incontinence - now improved. MUSCLOSKELETAL: See HPI SKIN: Frequent rashes. PSYCH: No reported depression or anxiety symptoms. NEURO: Per HPI above. No reported sleep disturbance. Prior Studies: Labs: normal: SHELLY, metanephrines, Lyme PCR (2014); VLCFA, copper, and B12 (2015) abnormal: none CSF Labs 10/28/2015: normal: WBC 2, RBC 2, glucose 67 IgG index, HTLV, abnormal: protein 46 (nl 15-45), OCB with 4 bands corresponding to serum though more prominent in CSF EMG 10/22/2017: NCS: Sensory: L sural, median, and ulnar Motor: nl L peroneal to EDB, ulnar, and median NEE: fibs in L FDI and pro ter, high amp MUAP in FDI; LUE/LE/T PSP nl MRI brain 10/23/2022: No acute abnormality. Sequelae of chronic microvascular disease. MRI cervical spine 10/22/2017: No acute fracture or malalignment. Mild degenerative changes of the cervical spine PAST MEDICAL HISTORY Diagnosis Date Arrhythmia irregular heart rate-several yrs ago-PVC's Endometriosis Esophageal reflux 05/24/2005 Lichen sclerosus PERS HX OF THYROID MALIGNANCY 05/24/2005 Primary lateral sclerosis (HCC) 2017 Snoring Uterine fibroid PAST SURGICAL HISTORY Procedure Laterality Date COLONOSCOPY FLX DX W/COLLJ SPEC WHEN PFRMD 09/03/2003 Colonoscopy COLONOSCOPY FLX DX W/COLLJ SPEC WHEN PFRMD 10/01/2014 Colonoscopy EGD TRANSORAL BIOPSY SINGLE/MULTIPLE 03/09/2006 Hiatal hernia/gastritis/esophagitis ESOPHAGOGASTRODUODENOSCOPY TRANSORAL DIAGNOSTIC 10/01/2014 EGD LAPS SURG CHOLECYSTECTOMY W/CHOLANGIOGRAPHY 03/12/2006 PAST SURGICAL HISTORY OF 03/12/2006 transvaginal sling REMOVAL SKN TAGS DIRECTOR CHECK FIBRQ TAGS ANY AREA UPW/15 03/18/2011 Ablation skin tags/ shave bx x 2 REMV CATARACT EXTRACAP,INSERT LENS 12/2023 S SLING [facility] SALPINGO-OOPHORECTOMY COMPL/PRTL UNI/BI SPX 10/25/2000 Salpingo-oophorectomy THYROIDECTOMY TOTAL/COMPLETE 07/19/2001 For Cancer THYROIDECTOMY TOTAL/COMPLETE TOTAL ABDOMINAL HYSTERECT W/WO RMVL TUBE OVARY 10/25/2000 Hysterectomy, FIDE for fibroids and abnormal menstruation FAMILY HISTORY Problem Relation Age of Onset other (Other [Other]) Mother normal pressure hydrocephalous Thyroid Mother Heart Father Stroke Father other (DEMENTIA [Other]) Father frontotemporal dementia other (heart valve abnormality) Brother Aneurysm Brother Aneurysm Brother Heart Brother RHEUMATIC FEVER IN CHILDHOOD Stroke Maternal Grandmother Cance (more content not included)... [facility] 12-28-2023 Note HNO ID: [id number] Author: NATHAN MADRIGAL PT Service: ? Author Type: Physical Therapist Type: Progress Notes Filed: 12/28/2023 17:52 Note Text: Episode Visit Count: 21 Therapist That Will Accept/Oversee The Plan Of Care: Nathan Madrigal PT, ANABELLE Start of Care Date: 10/03/23 Onset Date: (2011 and LE symptoms of stiffness and pain worsening in the last month) Plan of Care Certification Date: 12/28/23 Next Certification Due Date: 02/15/24 Patient Identified by Name and Date of : Yes REHABILITATION AND SPORTS THERAPY PHYSICAL THERAPY PROGRESS REPORT PLAN OF CARE UPDATE: Assessment: Waldemar Hudson demonstrates continued progression towards improved available knee ROM, working to reduce LE tone and improve LE and core strength to improve overall mobility, transfers, and ambulation status.. She has progressed toward goals. Patient continues to present with impairments in ADL's, flexibility, independence in exercise, overall function, range of motion, and symptom management that interfere with rising from a chair, walking in the house, stair negotiation, bending, sleeping, dressing, grooming, physical activities, Comments Patient and her report that stair negotiation requires less assist for L LE and that her stability on the steps has imrpoved.. Current prognosis is Fair due to: clinical presentation, chronic nature of impairments, limited tolerance to activity, Prognosis may be improved by good support system/ coping skills, positive past response to therapy. She will benefit from continued skilled therapy services to meet the updated goals for this plan of care as noted below. Goals for Episode of Care: created on 12/28/2023 through 02/15/2024 Patient will increase active ROM of bilateral knees to no greater than 10-15 degrees from achieving full knee extension to allow patient to improve postural alignment, to improve gait mechanics / gait pattern , and to decrease falls risks. (Ongoing) Patient will be able to correct postural deviations with minimal assist verbal cues in order to improve postural alignment of trunk during transfers, ambulation, and standing and to decrease current R LE pain. (Progressing and ongoing) Decrease R hip/R knee pain to 1-4/10 at rest and with functional activities to allow patient to improve ambulation, transfers, and standing tolerance for ADLs. (Ongoing) Patient will ambulate 50-75 feet with rolling walker with stand by assist to allow patient to be able to ambulate to and from her bathroom at home with less difficulty. (Ongoing. We have not addressed ambulation as much recently due to R knee pain) Patient to be able to non-reciprocally negotiate stairs at home with bilateral rail use with assist of for safety as needed and be able to complete this task in 5 minutes as she did previously. (Ongoing with patient and noting less time to complete and less assist needed for L LE advancement on the steps at home) Patient Goals: To reduce my right knee pain Planned Interventions, Frequency, and Duration: 2x/week, 6 weeks Total Number of Visits Planned: 12 Patient to be seen for Therapeutic exercise (25208), Neuromuscular re-education (04247), Manual therapy (04845), Therapeutic activities (51051), Self-nursing home management (24146), Gait Training (93181), Patient/Family/Caregiver Education PLAN FOR NEXT VISIT: Resume standing exercises as able. Continue LE passive stretching and LE/core strengthening exercises. SUBJECTIVE: Patient notes that the acupuncture treatments have really helped the L knee, but not really helping the R knee. Patient rates her R knee pain at 3 out of 10 but still cannot put weight on her R knee and is having difficulty walking. Since starting therapy, patient and her feel that she has improved stability on the steps, she needs less L LE assist for the steps and that she does fatigue after therapy. Functional Limitations: rising from a chair, walking in the house, stair negotiation, bending, sleeping, dressing, grooming, physical activities, Comments Functional Limitation Comments: Patient and her report that stair negotiation requires less assist for L LE and that her stability on the steps has imrpoved. Pain: Pain Pain Level: 3 Pain Location: Knee - Right Post Treatment Pain Post Treatment Pain Level: Better PROMIS Scales 12/26/2023 12/06/2023 11/25/2023 Higher is Better Phys Func - Score 23 (severe dysfunction) Phys Func - Percentile 0 Self-Eff Symptom - Score 37 (Low) 42 (Average) Self-Eff Symptom - Percentile 10 21 T-scores: mean of general population = 50. 5 points is clinically meaningfully difference Percentiles provide an indication of how the patient's score ranks in relation to the general population. Higher percentile rankings indicate better function/quality of life. 50th percentile is the average of the general populatio (more content not included)... [facility] 12-28-2023 History of Present illness Narrative Images from the original note were not included. Episode Visit Count: 21 Therapist That Will Accept/Oversee The Plan Of Care: Nathan Madrigal PT, ANABELLE Start of Care Date: 10/03/23 Onset Date: (2012 and R LE symptoms of stiffness and pain worsening in the last month) Plan of Care Certification Date: 12/28/23 Next Certification Due Date: 02/15/24 Patient Identified by Name and Date of : Yes REHABILITATION AND SPORTS THERAPY PHYSICAL THERAPY PROGRESS REPORT PLAN OF CARE UPDATE: Assessment: Waldemar Hudson demonstrates continued progression towards improved available knee ROM, working to reduce LE tone and improve LE and core strength to improve overall mobility, transfers, and ambulation status.. She has progressed toward goals. Patient continues to present with impairments in ADL's, flexibility, independence in exercise, overall function, range of motion, and symptom management that interfere with rising from a chair, walking in the house, stair negotiation, bending, sleeping, dressing, grooming, physical activities, Comments Patient and her report that stair negotiation requires less assist for L LE and that her stability on the steps has imrpoved.. Current prognosis is Fair due to: clinical presentation, chronic nature of impairments, limited tolerance to activity, Prognosis may be improved by good support system/ coping skills, positive past response to therapy. She will benefit from continued skilled therapy services to meet the updated goals for this plan of care as noted below. Goals for Episode of Care: created on 12/28/2023 through 02/15/2024 Patient will increase active ROM of bilateral knees to no greater than 10-15 degrees from achieving full knee extension to allow patient to improve postural alignment, to improve gait mechanics / gait pattern , and to decrease falls risks. (Ongoing) Patient will be able to correct postural deviations with minimal assist verbal cues in order to improve postural alignment of trunk during transfers, ambulation, and standing and to decrease current R LE pain. (Progressing and ongoing) Decrease R hip/R knee pain to 1-4/10 at rest and with functional activities to allow patient to improve ambulation, transfers, and standing tolerance for ADLs. (Ongoing) Patient will ambulate 50-75 feet with rolling walker with stand by assist to allow patient to be able to ambulate to and from her bathroom at home with less difficulty. (Ongoing. We have not addressed ambulation as much recently due to R knee pain) Patient to be able to non-reciprocally negotiate stairs at home with bilateral rail use with assist of for safety as needed and be able to complete this task in 5 minutes as she did previously. (Ongoing with patient and noting less time to complete and less assist needed for L LE advancement on the steps at home) Patient Goals: To reduce my right knee pain Planned Interventions, Frequency, and Duration: 2x/week, 6 weeks Total Number of Visits Planned: 12 Patient to be seen for Therapeutic exercise (29284), Neuromuscular re-education (36255), Manual therapy (41172), Therapeutic activities (72424), Self-nursing home management (57368), Gait Training (45125), Patient/Family/Caregiver Education PLAN FOR NEXT VISIT: Resume standing exercises as able. Continue LE passive stretching and LE/core strengthening exercises. SUBJECTIVE: Patient notes that the acupuncture treatments have really helped the L knee, but not really helping the R knee. Patient rates her R knee pain at 3 out of 10 but still cannot put weight on her R knee and is having difficulty walking. Since starting therapy, patient and her feel that she has improved stability on the steps, she needs less L LE assist for the steps and that she does fatigue after therapy. Functional Limitations: rising from a chair, walking in the house, stair negotiation, bending, sleeping, dressing, grooming, physical activities, Comments Functional Limitation Comments: Patient and her report that stair negotiation requires less assist for L LE and that her stability on the steps has imrpoved. Pain: Pain Pain Level: 3 Pain Location: Knee - Right Post Treatment Pain Post Treatment Pain Level: Better PROMIS Scales 12/26/2023 12/06/2023 11/25/2023 Higher is Better Phys Func - Score 23 (severe dysfunction) Phys Func - Percentile 0 Self-Eff Symptom - Score 37 (Low) 42 (Average) Self-Eff Symptom - Percentile 10 21 T-scores: mean of general population = 50. 5 points is clinically meaningfully difference Percentiles provide an indication of how the patient's score ranks in relation to the general population. Higher percentile rankings indicate better function/quality of life. 50th percentile is the average of the general population and indicates half of respondents had a worse score. OBJECTIVE MEASURES WITH LEVEL OF FUNCTION: LE AROM R Knee Extension: -30 Degrees R Knee Flexion: 100 Degrees L Knee Extension: -20 Degrees L Knee Flexion: 105 Degrees LE Strength R Hip Flexion (L2): 4+/5 R Hip ABduction: (4-4+/5) R Hip ADduction: 4+/5 R Knee Extension (L3): 4/5 (Limted available ROM in sitting against gravity due to increased R LE tone) R Knee Flexion: 4+/5 R Ankle Dorsiflexion (L4): 4/5 R Ankle Plantar Flexion: 4+/5 L Hip Flexion (L2): 4+/5 L Hip ABduction: (4-4+/5) L Hip ADduction: 4+/5 L Knee Extension (L3): 4/5 L Knee Flexion: 4+/5 L Ankle Dorsiflexion (L4): 4+/5 L Ankle Plantar Flexion: 4+/5 Tone Tone: Hypertonic Hypertonic Comments: L LE hypertionia, R LE hypertonia and noted the R LE going into spasm with some PROM R LE today. Mobility Sit To Stand: Contact Guard Assistance (When completing transfer from plinth. assists with sit to stnad from wheelchair to stand pivot transfer to therapy plinth.) Stand To Sit: Stand By Assistance (With transfer on plinth and when transferring to wheelchair, she descends slowly to the wheelchair.) Bed To Chair: Minimal Assistance (Trunk control assist needed) Bed To Chair Transfer Type: Stepping TREATMENT: Therapeutic Exercise: 1: Seated LAQ 2 x 15 reps w/ 3 sec hold and end range stretch by therapist (Did not complete today) 2: Seated marching with band x 15 reps w/ pink band (Did not complete today) 3: Seated resisted adduction x 30 reps 4: Seated resisted abduction x 30 reps w/ pink (Did not complete today) 5: Supine bridging 2 x 10 reps over yellow ball 6: Supine bent leg marching 2 x 10 reps alternating with LE rested on yellow ball 7: SAQ 2 x 10 reps each LE with assist 8: Supine lower trunk rotation with assist with bilateral LE rested on yellow therapy ball x 15 each direction 9: Partial curl ups with yellow ball rolled up her knees 2 x 10 Skilled Intervention: Skilled judgment was used in selection of appropriate interventions. Completed Progress Report for transfer and mobility status, LE strength testing, LE available knee ROM, and goal status. Manual Therapy: 1: PROM to each LE for hips flexion, abduction, long axis rotation and hamstrings stretching, knees flexion/extension and bilateral ankle DF/PFmotions x 15 reps each. Skilled Intervention: Manual skills to improve joint mobility, ROM, and decrease pain. Utilized anatomy knowledge of the therapist, and assessment of patient's response to intervention. Billing Therapeutic Exercise Treatment Minutes: 35 Manual TherapyTreatment Minutes: 15 Skilled Treatment Time Minutes (timed and untimed codes): 50 Total Session Time (minutes): 50 Session Start Time : 1506 Session Stop Time : 1556 Nathan Madrigal PT, MBA documented in this encounter [facility] 12-27-2023 Note HNO ID: [id number] Author: CORI HOPE R Ac Service: ? Author Type: Diplomat of Acupuncture Type: Progress Notes Filed: 12/27/2023 16:10 Note Text: Waldemar Hudson a 68 year old female presents to the acupuncture clinic on 12/27/23 for a follow up visit. Patient identity confirmed by name and : Yes This is the 6 visit for the patient this year It has been 1 week(s) since the last acupuncture treatment. Last treatment date: 12/20/2023 Initial Acupuncture treatment date: 11/12/2023 Chief Complaint: Primary lateral sclerosis, right knee pain SUBJECTIVE Patient returns with improved pain in left knee, however with ongoing muscle spasm in right lower leg. She noticed involuntary muscle movement has been also subsided so far. Patient noted improving sleep quality. Patient has been battling MS since 2012. Patient has history of Lyme disease, mold exposure and thyroid cancer. Thyroidism Trialed PT, dry needling, chiropractic, massage. PAIN ASSESSMENT: Currently experiencing pain Pain level (0 no pain at all to 10 being the worst): 4 OBJECTIVE: Physical Exam: Tenderness: knees and feet Pain with palpation: na ROM: limited ROM Orthopedic Tests: na Tightness: knees Divina/Trigger points: na Visual Inspection Discoloration: na Edema: no Gait/Ambulation: normal Ovalle: good Qi/Patient vitality: normal Alert Well-Groomed Normal Imaging reports Images on file See EPIC Images have been reviewed no TCM Tongue: NA TCM Pulse: thin and weak ASSESSMENT Patient presents with signs and symptoms consistent with the diagnosis. Patient would benefit from acupuncture therapy to address listed deficiencies and return to PLOF. Pt was educated on symptoms, prognosis, plan of care and activity modifications. Pt verbalized understanding and agreed to begin care. TCM Pattern: PLS due to Qi and blood deficiency. TCM Treatment Principle: Calm Ovalle. Promote smooth flow of Qi and blood. Open channel. Reduce pain. PLAN OF CARE Counseled patient on risks of acupuncture treatment including pain, infection, bleeding, and no relief of pain. The patient was positioned comfortably. There was no evidence of infection at the site of needle insertions. Acupuncture Treatment: Treatment/Needle Set 1, Supine: Points: Yin Gaytan, motor line 2 points bilaterally on the scalp, ear ovalle men, R: Brittni Peace, Jan Yarbrough, SJ3, SI3, Di Hudson, GB31 15 minutes face to face with patient for set 1 Treatment/Needle Set 2, Supine: Points: R: GB34, Esquivel Chi, SP9, SP6, R: Si MA points 3, Xi Dinh, KD10, SP10, GB41, ST43 10 minutes face to face with patient for set 2 Calcium were retained for 30 minutes # of needles inserted: 30 # of needles withdrawn: 30 Adjunct techniques used: TDP Infrared Heat Lamp- Applied to Rt. Hip and right knee Patient tolerated the procedure well. UNIVERSAL PROTOCOL / SAFETY CHECKLIST Procedure to be Performed: Acupuncture Sign In: A Moment of CARE was completed. Personnel directly involved with the procedure wore the appropriate PPE (Personal Protective Equipment). Patient/Surrogate Stated/Verified: PATIENT VERIFIED(optional for EMERGENT procedures): Patient name, Date of , Relevant allergies, and The intended procedure Time Out Communication: Intended patient and procedure match the source documents. Consent documented and matches the intended procedure. Sign Out: SIGN OUT (optional for EMERGENT procedures): All instruments, equipment, possible retained foreign bodies accounted for. Trenton Hanson Provider Name: Trenton Hanson 25 Total minutes face to face time spent with patient Acupuncture and [place] herbal therapy are not a substitute for conventional medical diagnosis and treatment. Patient agrees that either: 1. A diagnostic exam has been performed by a physician or chiropractor within the last six months regarding the condition for which they are seeking acupuncture treatment. or 2. If no diagnostic exam by a physician or chiropractor has been done within the last six months regarding the condition for which patient is seeking treatment, the Processing Analyst, per [place] Law, recommends that this diagnostic exam be performed. [facility] 12-27-2023 History of Present illness Narrative Waldemar Hudson a 68 year old female presents to the acupuncture clinic on 12/27/23 for a follow up visit. Patient identity confirmed by name and : Yes This is the 6 visit for the patient this year It has been 1 week(s) since the last acupuncture treatment. Last treatment date: 12/20/2023 Initial Acupuncture treatment date: 11/12/2023 Chief Complaint: Primary lateral sclerosis, right knee pain SUBJECTIVE Patient returns with improved pain in left knee, however with ongoing muscle spasm in right lower leg. She noticed involuntary muscle movement has been also subsided so far. Patient noted improving sleep quality. Patient has been battling MS since 2013. Patient has history of Lyme disease, mold exposure and thyroid cancer. Thyroidism Trialed PT, dry needling, chiropractic, massage. PAIN ASSESSMENT: Currently experiencing pain Pain level (0 no pain at all to 10 being the worst): 4 OBJECTIVE: Physical Exam: Tenderness: knees and feet Pain with palpation: na ROM: limited ROM Orthopedic Tests: na Tightness: knees Divina/Trigger points: na Visual Inspection Discoloration: na Edema: no Gait/Ambulation: normal Ovalle: good Qi/Patient vitality: normal Alert Well-Groomed Normal Imaging reports Images on file See EPIC Images have been reviewed no TCM Tongue: NA TCM Pulse: thin and weak ASSESSMENT Patient presents with signs and symptoms consistent with the diagnosis. Patient would benefit from acupuncture therapy to address listed deficiencies and return to PLOF. Pt was educated on symptoms, prognosis, plan of care and activity modifications. Pt verbalized understanding and agreed to begin care. TCM Pattern: PLS due to Qi and blood deficiency. TCM Treatment Principle: Calm Ovalle. Promote smooth flow of Qi and blood. Open channel. Reduce pain. PLAN OF CARE Counseled patient on risks of acupuncture treatment including pain, infection, bleeding, and no relief of pain. The patient was positioned comfortably. There was no evidence of infection at the site of needle insertions. Acupuncture Treatment: Treatment/Needle Set 1, Supine: Points: Yin Gaytan, motor line 2 points bilaterally on the scalp, ear ovalle men, R: Ling Ed Da Austen, Jan Zenon, SJ3, SI3, Di Hudson, GB31 15 minutes face to face with patient for set 1 Treatment/Needle Set 2, Supine: Points: R: GB34, Esquivel Chi, SP9, SP6, R: Si MA points 3, Xi Dinh, KD10, SP10, GB41, ST43 10 minutes face to face with patient for set 2 Calcium were retained for 30 minutes # of needles inserted: 30 # of needles withdrawn: 30 Adjunct techniques used: TDP Infrared Heat Lamp- Applied to Rt. Hip and right knee Patient tolerated the procedure well. UNIVERSAL PROTOCOL / SAFETY CHECKLIST Procedure to be Performed: Acupuncture Sign In: A Moment of CARE was completed. Personnel directly involved with the procedure wore the appropriate PPE (Personal Protective Equipment). Patient/Surrogate Stated/Verified: PATIENT VERIFIED(optional for EMERGENT procedures): Patient name, Date of , Relevant allergies, and The intended procedure Time Out Communication: Intended patient and procedure match the source documents. Consent documented and matches the intended procedure. Sign Out: SIGN OUT (optional for EMERGENT procedures): All instruments, equipment, possible retained foreign bodies accounted for. Trenton Hanson Provider Name: Trenton Hanson 25 Total minutes face to face time spent with patient Acupuncture and [place] herbal therapy are not a substitute for conventional medical diagnosis and treatment. Patient agrees that either: 1. A diagnostic exam has been performed by a physician or chiropractor within the last six months regarding the condition for which they are seeking acupuncture treatment. or 2. If no diagnostic exam by a physician or chiropractor has been done within the last six months regarding the condition for which patient is seeking treatment, the Processing Analyst, per [place] Law, recommends that this diagnostic exam be performed. documented in this encounter [facility] 12-21-2023 Note HNO ID: [id number] Author: DAJA GOMEZ PTA Service: ? Author Type: Cl[employer]ists Type: Progress Notes Filed: 12/21/2023 14:38 Note Text: Episode Visit Count: 20 Therapist That Will Accept/Oversee The Plan Of Care: Nathan Madrigal PT, ANABELLE Start of Care Date: 10/03/23 Onset Date: (2011 and R LE symptoms of stiffness and pain worsening in the last month) Plan of Care Certification Date: 11/27/23 Next Certification Due Date: 01/11/24 Patient Identified by Name and Date of : Yes REHABILITATION AND SPORTS THERAPY PHYSICAL THERAPY TREATMENT NOTE ASSESSMENT: Waldemar Hudson tolerated the session with no issues. She demonstrated good tolerance with exercises and tolerated increased reps w/ increased reps w/ bent leg marching and curl ups. The patient will continue to benefit from ongoing skilled physical therapy to progress toward set goals. PLAN FOR NEXT VISIT: Continue LE stretching and strengthening and possibly resume standing activities as pt tolerates. SUBJECTIVE: Patient reported that her right knee is starting to feel better but she still cannot rely on it for weight bearing. Pain: Pain Pain Level: 3 Pain Location: Knee - Right Post Treatment Pain Post Treatment Pain Level: Better OBJECTIVE MEASURES WITH LEVEL OF FUNCTION: No objective measures taken this date. TREATMENT: Therapeutic Exercise: 1: Seated LAQ 2 x 15 reps w/ 3 sec hold and end range stretch by therapist 2: Seated marching with band x 15 reps w/ pink band 3: Seated resisted adduction x 30 reps 4: Seated resisted abduction x 30 reps w/ pink 5: Supine bridging 2 x 15 reps 6: Supine bent leg marching 2 x 15 reps alternating (Increased reps) 7: SAQ 2 x 15 reps each LE with assist 8: Supine lower trunk rotation with assist with bilateral LE rested on yellow therapy ball x 15 each direction 9: Partial curl ups with yellow ball rolled up her knees 2 x 10 (Increased reps) Skilled Intervention: Patient was educated in proper exercise technique and purpose for exercises. Skilled judgment was used in selection of appropriate interventions. Manual Therapy: 1: PROM to each LE for hips flexion, abduction, long axis rotation and hamstrings stretching, knees flexion/extension and bilateral ankle DF/PFmotions x 15 reps each. Skilled Intervention: Manual skills to improve joint mobility, ROM, and decrease pain. Utilized anatomy knowledge of the therapist, and assessment of patient's response to intervention. Billing Therapeutic Exercise Treatment Minutes: 35 Manual TherapyTreatment Minutes: 15 Skilled Treatment Time Minutes (timed and untimed codes): 50 Total Session Time (minutes): 65 Session Start Time : 1315 Session Stop Time : 1420 Daja Gomez [facility] 12-21-2023 History of Present illness Narrative Episode Visit Count: 20 Therapist That Will Accept/Oversee The Plan Of Care: Nathan Madrigal PT, ANABELLE Start of Care Date: 10/03/23 Onset Date: (2011 and R LE symptoms of stiffness and pain worsening in the last month) Plan of Care Certification Date: 11/27/23 Next Certification Due Date: 01/11/24 Patient Identified by Name and Date of : Yes REHABILITATION AND SPORTS THERAPY PHYSICAL THERAPY TREATMENT NOTE ASSESSMENT: Waldemar Hudson tolerated the session with no issues. She demonstrated good tolerance with exercises and tolerated increased reps w/ increased reps w/ bent leg marching and curl ups. The patient will continue to benefit from ongoing skilled physical therapy to progress toward set goals. PLAN FOR NEXT VISIT: Continue LE stretching and strengthening and possibly resume standing activities as pt tolerates. SUBJECTIVE: Patient reported that her right knee is starting to feel better but she still cannot rely on it for weight bearing. Pain: Pain Pain Level: 3 Pain Location: Knee - Right Post Treatment Pain Post Treatment Pain Level: Better OBJECTIVE MEASURES WITH LEVEL OF FUNCTION: No objective measures taken this date. TREATMENT: Therapeutic Exercise: 1: Seated LAQ 2 x 15 reps w/ 3 sec hold and end range stretch by therapist 2: Seated marching with band x 15 reps w/ pink band 3: Seated resisted adduction x 30 reps 4: Seated resisted abduction x 30 reps w/ pink 5: Supine bridging 2 x 15 reps 6: Supine bent leg marching 2 x 15 reps alternating (Increased reps) 7: SAQ 2 x 15 reps each LE with assist 8: Supine lower trunk rotation with assist with bilateral LE rested on yellow therapy ball x 15 each direction 9: Partial curl ups with yellow ball rolled up her knees 2 x 10 (Increased reps) Skilled Intervention: Patient was educated in proper exercise technique and purpose for exercises. Skilled judgment was used in selection of appropriate interventions. Manual Therapy: 1: PROM to each LE for hips flexion, abduction, long axis rotation and hamstrings stretching, knees flexion/extension and bilateral ankle DF/PFmotions x 15 reps each. Skilled Intervention: Manual skills to improve joint mobility, ROM, and decrease pain. Utilized anatomy knowledge of the therapist, and assessment of patient's response to intervention. Billing Therapeutic Exercise Treatment Minutes: 35 Manual TherapyTreatment Minutes: 15 Skilled Treatment Time Minutes (timed and untimed codes): 50 Total Session Time (minutes): 65 Session Start Time : 1315 Session Stop Time : 1420 Daja Gomez PTA documented in this encounter [facility] 12-20-2023 Note HNO ID: [id number] Author: CORI HOPE R Ac Service: ? Author Type: Diplomat of Acupuncture Type: Progress Notes Filed: 12/20/2023 16:02 Note Text: Waldemar Hudson a 68 year old female presents to the acupuncture clinic on 12/20/23 for a follow up visit. Patient identity confirmed by name and : Yes This is the 5 visit for the patient this year It has been 1 week(s) since the last acupuncture treatment. Last treatment date: 12/13/2023 Initial Acupuncture treatment date: 11/12/2023 Chief Complaint: Primary lateral sclerosis, right knee pain SUBJECTIVE Patient returns with improving pain in right knee, right anterolateral thigh, and nighttime cramp condition. However, patient seems to have pain in the right knee with lightly touching on her knee or thigh area. She noticed involuntary muscle movement has been also subsided so far. Patient noted improving sleep quality. Patient has been battling MS since 2012. Patient has history of Lyme disease, mold exposure and thyroid cancer. Thyroidism Trialed PT, dry needling, chiropractic, massage. PAIN ASSESSMENT: Currently experiencing pain Pain level (0 no pain at all to 10 being the worst): 4 OBJECTIVE: Physical Exam: Tenderness: knees and feet Pain with palpation: na ROM: limited ROM Orthopedic Tests: na Tightness: knees Divina/Trigger points: na Visual Inspection Discoloration: na Edema: no Gait/Ambulation: normal Ovalle: good Qi/Patient vitality: normal Alert Well-Groomed Normal Imaging reports Images on file See EPIC Images have been reviewed no TCM Tongue: NA TCM Pulse: thin and weak ASSESSMENT Patient presents with signs and symptoms consistent with the diagnosis. Patient would benefit from acupuncture therapy to address listed deficiencies and return to PLOF. Pt was educated on symptoms, prognosis, plan of care and activity modifications. Pt verbalized understanding and agreed to begin care. TCM Pattern: PLS due to Qi and blood deficiency. TCM Treatment Principle: Calm Ovalle. Promote smooth flow of Qi and blood. Open channel. Reduce pain. PLAN OF CARE Counseled patient on risks of acupuncture treatment including pain, infection, bleeding, and no relief of pain. The patient was positioned comfortably. There was no evidence of infection at the site of needle insertions. Acupuncture Treatment: Treatment/Needle Set 1, Supine: Points: Yin Gaytan, motor line 2 points bilaterally on the scalp, ear ovalle men, R: Ling Ed Da Austen, SJ3, SI3, Di Hudson, GB31 15 minutes face to face with patient for set 1 Treatment/Needle Set 2, Supine: Points: B: GB34, Esquivel Chi, SP9, SP6, R: Si MA points 3, Xi Dinh, KD10, SP10 10 minutes face to face with patient for set 2 Calcium were retained for 30 minutes # of needles inserted: 30 # of needles withdrawn: 30 Adjunct techniques used: TDP Infrared Heat Lamp- Applied to Rt. Hip and right knee Patient tolerated the procedure well. UNIVERSAL PROTOCOL / SAFETY CHECKLIST Procedure to be Performed: Acupuncture Sign In: A Moment of CARE was completed. Personnel directly involved with the procedure wore the appropriate PPE (Personal Protective Equipment). Patient/Surrogate Stated/Verified: PATIENT VERIFIED(optional for EMERGENT procedures): Patient name, Date of , Relevant allergies, and The intended procedure Time Out Communication: Intended patient and procedure match the source documents. Consent documented and matches the intended procedure. Sign Out: SIGN OUT (optional for EMERGENT procedures): All instruments, equipment, possible retained foreign bodies accounted for. Trenton Hanson Provider Name: Trenton Hanson 25 Total minutes face to face time spent with patient Acupuncture and [place] herbal therapy are not a substitute for conventional medical diagnosis and treatment. Patient agrees that either: 1. A diagnostic exam has been performed by a physician or chiropractor within the last six months regarding the condition for which they are seeking acupuncture treatment. or 2. If no diagnostic exam by a physician or chiropractor has been done within the last six months regarding the condition for which patient is seeking treatment, the Processing Analyst, per [place] Law, recommends that this diagnostic exam be performed. [facility] 12-20-2023 History of Present illness Narrative Waldemarquintin Hudson a 68 year old female presents to the acupuncture clinic on 12/20/23 for a follow up visit. Patient identity confirmed by name and : Yes This is the 5 visit for the patient this year It has been 1 week(s) since the last acupuncture treatment. Last treatment date: 12/13/2023 Initial Acupuncture treatment date: 11/12/2023 Chief Complaint: Primary lateral sclerosis, right knee pain SUBJECTIVE Patient returns with improving pain in right knee, right anterolateral thigh, and nighttime cramp condition. However, patient seems to have pain in the right knee with lightly touching on her knee or thigh area. She noticed involuntary muscle movement has been also subsided so far. Patient noted improving sleep quality. Patient has been battling MS since 2012. Patient has history of Lyme disease, mold exposure and thyroid cancer. Thyroidism Trialed PT, dry needling, chiropractic, massage. PAIN ASSESSMENT: Currently experiencing pain Pain level (0 no pain at all to 10 being the worst): 4 OBJECTIVE: Physical Exam: Tenderness: knees and feet Pain with palpation: na ROM: limited ROM Orthopedic Tests: na Tightness: knees Divina/Trigger points: na Visual Inspection Discoloration: na Edema: no Gait/Ambulation: normal Ovalle: good Qi/Patient vitality: normal Alert Well-Groomed Normal Imaging reports Images on file See EPIC Images have been reviewed no TCM Tongue: NA TCM Pulse: thin and weak ASSESSMENT Patient presents with signs and symptoms consistent with the diagnosis. Patient would benefit from acupuncture therapy to address listed deficiencies and return to PLOF. Pt was educated on symptoms, prognosis, plan of care and activity modifications. Pt verbalized understanding and agreed to begin care. TCM Pattern: PLS due to Qi and blood deficiency. TCM Treatment Principle: Calm Ovalle. Promote smooth flow of Qi and blood. Open channel. Reduce pain. PLAN OF CARE Counseled patient on risks of acupuncture treatment including pain, infection, bleeding, and no relief of pain. The patient was positioned comfortably. There was no evidence of infection at the site of needle insertions. Acupuncture Treatment: Treatment/Needle Set 1, Supine: Points: Yin Gaytan, motor line 2 points bilaterally on the scalp, ear ovalle men, R: Ling Gu Da Austen, SJ3, SI3, Di Hudson, GB31 15 minutes face to face with patient for set 1 Treatment/Needle Set 2, Supine: Points: B: GB34, Esquivel Chi, SP9, SP6, R: Si MA points 3, Xi Dinh, KD10, SP10 10 minutes face to face with patient for set 2 Calcium were retained for 30 minutes # of needles inserted: 30 # of needles withdrawn: 30 Adjunct techniques used: TDP Infrared Heat Lamp- Applied to Rt. Hip and right knee Patient tolerated the procedure well. UNIVERSAL PROTOCOL / SAFETY CHECKLIST Procedure to be Performed: Acupuncture Sign In: A Moment of CARE was completed. Personnel directly involved with the procedure wore the appropriate PPE (Personal Protective Equipment). Patient/Surrogate Stated/Verified: PATIENT VERIFIED(optional for EMERGENT procedures): Patient name, Date of , Relevant allergies, and The intended procedure Time Out Communication: Intended patient and procedure match the source documents. Consent documented and matches the intended procedure. Sign Out: SIGN OUT (optional for EMERGENT procedures): All instruments, equipment, possible retained foreign bodies accounted for. Trenton Hanson Provider Name: Trenton Hanson 25 Total minutes face to face time spent with patient Acupuncture and [place] herbal therapy are not a substitute for conventional medical diagnosis and treatment. Patient agrees that either: 1. A diagnostic exam has been performed by a physician or chiropractor within the last six months regarding the condition for which they are seeking acupuncture treatment. or 2. If no diagnostic exam by a physician or chiropractor has been done within the last six months regarding the condition for which patient is seeking treatment, the Processing Analyst, per [place] Law, recommends that this diagnostic exam be performed. documented in this encounter [facility] 12-19-2023 History of Present illness Narrative Virtual Follow-up Visit I have communicated my name and active licensure. The patient's identity and physical location were verified at the time of this visit. Either the patient or their legal branch sales and service representative has been informed of the risks and benefits of -- and alternatives to -- treatment through a remote evaluation and consents to proceed with the evaluation remotely. This Team Access Model visit is a virtual encounter. It required patient-provider interaction for the medical decision making as documented below. There is no height or weight on file to calculate BMI. RMR can't be calculated - Weight unrecorded in last 120 days. ALLERGIES Allergen Reactions Malarone [Atovaquon* Hives Thimersol [Thimeros* Makes eyes red- thimerosal in contacts PAST MEDICAL HISTORY Diagnosis Date Arrhythmia irregular heart rate-several yrs ago-PVC's Esophageal reflux 05/24/2005 Lichen sclerosus PERS HX OF THYROID MALIGNANCY 05/24/2005 Snoring PAST SURGICAL HISTORY Procedure Laterality Date COLONOSCOPY FLX DX W/COLLJ SPEC WHEN PFRMD 2003 Colonoscopy COLONOSCOPY FLX DX W/COLLJ SPEC WHEN PFRMD 10/01/14 Colonoscopy EGD TRANSORAL BIOPSY SINGLE/MULTIPLE 03/09/06 Hiatal hernia/gastritis/esophagitis ESOPHAGOGASTRODUODENOSCOPY TRANSORAL DIAGNOSTIC 10/01/14 EGD LAPS SURG CHOLECYSTECTOMY W/CHOLANGIOGRAPHY 03/12/06 PAST SURGICAL HISTORY OF 03/12/2006 transvaginal sling REMOVAL SKN TAGS DIRECTOR CHECK FIBRQ TAGS ANY AREA UP/03/18/11 Ablation skin tags/ shave bx x 2 S SLING BLADDER SALPINGO-OOPHORECTOMY COMPL/PRTL UNI/BI SPX 10/25/00 Salpingo-oophorectomy THYROIDECTOMY TOTAL/COMPLETE 07/19/01 For Cancer THYROIDECTOMY TOTAL/COMPLETE TOTAL ABDOMINAL HYSTERECT W/WO RMVL TUBE OVARY 10/25/00 Hysterectomy, FIDE for fibroids and abnormal menstruation Social History Tobacco Use Smoking status: Never Smokeless tobacco: Never Substance Use Topics Alcohol use: Yes Comment: Occaisional Drug use: No Functional Medicine Timeline Patient Entered Questionnaire PROMIS Scale T-Scores -- HIGHER SCORES BETTER 07/02/2023 09/13/2023 12/06/2023 PROMIS Global Health - (T-Scores - the mean of general population = 50. Five points is a clinically meaningful difference.) Physical T-Score 32.4 26.7 26.7 Mental T-Score 48.3 48.3 56 Depression Screenin09/24/2015 07/12/2022 PHQ-9 Score 4 9 9 07/12/2022 09/24/2015 PHQ-9 Self Harm Question 9 Not at all Not at all PHQ-9 Self-Harm (Item 9) response options: 0 Not at all 1 Several days 2 More than half the days 3 Nearly every day PHQ-9 Levels: 0-4 Minimal depression 5-9 Mild depression 10-14 Moderate depression 15-19 Moderately severe depression 20-27 Severe depression Subjective: 12/19/23 Dr. 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 She has a flare in past 6 months-rashes, muscle spasms, right knee pain Treated for lyme about a year ago by a lyme specialist who retired and scheduled to see a new provider in [place] For mold and mycotoxins: Fluconazole pulsed for about 8 weeks Itraconazole nasal spray Chlorella bid Chronic constipation Psyllium husk and Mixed probiotic for gut support Her new Car Greaser took her off liothyronine Performed new MOAT Profile-in progress Sees GI in March Doing acupcuntrue Supplements-botswanan knotweed, mervia bid, green ea extract, dopaplus, fish oil, Coq10, carnitine, vit D, mushroom mix, pantothene, magnesium 420 mg, black elderberry, B12, THC, glutathione Medications: Synthroid, amantadine, nuedexta Summary for Dr. Gallegos December 19, 2023 Waldemar Hudson Since I have lost my ability to speak clearly, I will summarize my health issues here. The test results are on file or submitted with my check-in. My Dieter Arthur will be present during the appointment to help interpret my speaking. 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 diff. 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 I have been having brief hot flashes the last 6 months, coinciding with my knee symptoms, beni, stomach ache, etc. The headaches and incontinence have now resolved. I have high cholesterol (256) and mild to moderate osteoporosis. Diagnoses I was diagnosed with primary lateral sclerosis ~2017 based on my symptoms. However, I have also tested positive for Lyme disease and anaplasmosis, C. diff colonization, and a high load of mycotoxins (ochratoxin and citrinin). Also high levels of various heavy metals in urine. 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 I was treated for Lyme and anaplasmosis with IV antibiotics, and am currently taking amphotericin B as a nasal spray, oral nystatin, and fluconizole orally for fungal colonization. Dr. Paez focused on fungal overgrowth and detox. However, in the last MOAT assay, C. diff colonization was indicated. She suggested clearing the C. diff, but I have been waiting since September for an appointment with a [facility] community organization aide (now set for March). I have had several C. diff outbreaks, which are accompanied by increased fatigue. Recent Test Results 1. MOAT November 2023 - results will be available on December 20 2. MOAT April 2023 - results on file 3. IGeneX 2023 - [facility] should have the results 4. [facility] Mycotoxin panel October 2023 - Positive for Ochratoxin A, trichothecenes, Zearalanone, gliotoxin Treatments Diet: avoiding gluten, dairy (cow), and sugar. Moving to more plant based diet. Antibiotics (may not be a complete list) Oral until Aug 2018: Valtrex 1000 mg, Diflucan 200 mg Oral until Nov 2018: Clindamycin 450 mg (stopped because of loose stools) IV through port: Aug 2018 - May 2019 Unasyn 3.0 g IV 4 days in a row/wk; 300 mg doxycycline IV, first dose only. I had many problems with loose stools during this time. Fluconazole 100 mg Aug 2018-Jun 2022 Omeprazole 20 mg Aug 2018-Jun 2022 (I don't remember this one) Valtrex 1,000 mg Aug 2018-Jun 2022 Cipro 500 mg Oct 2021 - Jun 2022 Metronidazole 500 mg Oct 2021 - Jun 2022 Disulfiram Sep 2019 (not sure how long I was taking this. Rifampin - probably 4-5 months in early 2022. Did not affect stools. From neurologist - Amantadine + NueDexta - since ~12 months ago Dental - had all my metal fillings replaced ~2019 Chelation treatments ~2018 FSM, EDMR, HBOT Lots of supplements, including Lactobacillus (see list) Physical therapy Acupuncture - four treatments so far Additional Information August 2018 Doxycycline IV 300 mg 1st dose only August 2018 Unasyn (ampicillin and sulbactam) IV 3 g 4 days in a row/wk for 2 mo. Diflucan 3 days/wk Kelsy: diagnosed Babesia, Bartonella, Anaplasma July 2022 Negative Cologuard June 2022 Flu vaccine October 2000 Hysterectomy and ovaries removal July 2001 Complete thyroidectomy April 2002 Sodium Iodide July 2002 PT rotator cuff March 2006 Gall bladder removed and uterine sling installed July 2013 [place] referral - left leg weakness last 6 months July 2013 Nerve conduction with EMG - normal IV EDTA 26x October 2021 Metronidazole 500 mg (Flagyl) October 2021 Cipro 500 mg 2x per day August 2018 Valtrex 1,000 mg 3x/day August 2018 Omeprazol 20 mg August 2018 Fluconazole 100 mg June 2022 Rifampin 600 mg daily August 2022 Bone density scan Findings are suggestive of osteopenia with a moderate fracture risk. August 2022 Mammogram - negative October 2021 CT Scan abdomen/pelvis with contrast. The visualized lung bases are unremarkable. The visualized portions of the heart are within normal limits. Multiple small liver lesions/cysts. There is non-visualization of the gall bladder (because I don't have one). Normal spleen. Normal pancreas. Normal bilateral adrenal glands. Normal right kidney. 5.5 cm cyst in the lower pole of the left kidney. No evidence of hydronephrosis. Narrowing of the gastroesophageal junction difficult to accurately evaluate on this exam. The gastric antrum is not distended. Normal caliber small bowel loops. Thickening of the rectosigmoid and descending colon consistent with colitis. Fecal retention in the ascending and transverse colon. The appendix is visualized and appears normal, There is diffuse artherosclerotic calcification of the abdominal aorta with elongation and tortuosity, but without a demonstrated aneurysm. Normal inferior vena cava. Normal retroperitoneum. Thickening of the bladder wall probably due to under distension. Normal abdominal wall. No demonstrated acute osseous changes. Dr. Paez Today's Sep 14, 2023 Subjective: Patient states she is not doing great. Especially right leg, knee, hip, is very sore and stiff. Keeps her awake at night. Retired at the end of August. She's getting used to it. Wants to remain a patient Has been using the antifungal nasal spray. Still taking nystatin. Definitely reduced gluten consumption. As soon as she has sugar her face breaks out. Also gets heartburn when she has sugar. Now when she eats sugar they both go away. She is wondering if she should look at different toxin binders besides glucomannan Takes thyroid Amantadine Nystatin Is on SFI therbiotic support Had colitis last year, was treated with antibiotics for that. Taking glutathione every day And polyphenols Urine incontinence is better, hardly has a problem with that now Over past ten years has always had leg stiffness, but it's progressed. She had anaplasmosis, Lyme. Review of Systems: The remainder of the review of systems is noncontributory Objective: Virtual Physical Exam: Virtual Assessment Assessment: A69.20 Lyme disease (primary encounter diagnosis) Z77.120 Mold exposure CURRENT Functional Medicine Assessment/ PLAN Nutritional Assessment Nutreval Jun 2017 Most high need, high lipid peroxides/8OHDG Plan: Ultranutrient Digestive Function GERD improved w/diet (no sugar) Chronic Constipation GI effects March 2017 - Dysbiosis Elevated fecal fat/LCF A, cluster O, phospholipids as per Very low short-chain fatty acids Commensal bacteria-18 of 23 elevated with high Lactobacillus and Escherichia coli, low bifidobacterium Additional bacteria Bacillus species 4+, Klebsiella pneumonia 4+ both sensitive to Bactrim Prior Plan: Ox bile acids, Biotagen, Therbiotic Factor 4, Bactrim for 10 days with Saccharomyces B 08/2023 C. 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 IgeneX 10/2023-she is scheduled to see new lyme specialist Immunoblot IgM IGX POS TBRF Immunoblot IgM IND [employer] Production Motor neuron disorder - leg weakness Fatigue - better with B12 shots Foot/calf cramps Detoxification Function WOLFF Many amalgams, gone 2016 [place] repeat compared to November 2016 after 13 IV EDTA-lead dropped from 27-->10.2, mercury increased from 14.36 --> 19.73 (patient felt good on EDTA and rash cleared) Tx: Dr. Damon w/ EDTA IV Waldemar's office was moldy, was there for 29 years. Hormonal Assessment Insomnia - hot flash 5am Hot flashes - black cohosh helps the intensity Hypothyroid dt cancer - brittle nails Postmenopausal - Structural Assessment OA knees Swollen ankles Plan and Lifestyle Prescription Plan/Instructions/Resources: Testing Recommendations: Performed new MOAT Profile-in progress 2. Sasha GI Effects Stool Profile: -14 days before collecting the sample, you must discontinue antibiotics, antiparasitics, antifungals, -2 days before the test, discontinue aspirin and other NSAIDs (i.e. ibuprofen), rectal suppositories, enemas, activated charcoal, bismuth, betaine HCl, digestive enzymes, antacids, laxatives, mineral oil, castor oil, and/or bentonite angelica Stop probiotics for 3-5 days before testing, then restart Other Recommendations: ASSESSMENT/PLAN: 1. Lyme disease - ICD9: 088.81, ICD10: A69.20 (primary diagnosis) She will be establishing with new lyme specialist - FM GI EFFECTS, 1 STOOL SPECIMEN 2. Mold exposure - ICD9: V87.31, ICD10: Z77.120 Continue Chlorella and Glutathione - FM GI EFFECTS, 1 STOOL SPECIMEN 3. Chronic constipation - ICD9: 564.00, ICD10: K59.09 Try increasing the dose of magnesium for less constipation. Decrease the dose with loose stools. Do not exceed 1,500 mg daily - FM GI EFFECTS, 1 STOOL SPECIMEN Important Information when working with the Functional Medicine Department: We will review lab results that are ordered at Functional Medicine, this is not the responsibility of your PCP We are not Primary Care providers (PCP), we are Consultants in Functional Medicine Do not stop any medications prescribed by your PCP or specialists without speaking with the pre scriber If you are not improving or you are worsening, or have an acute problem see your PCP Follow up: Please schedule a follow up visit with the following Caregivers: Provider 2 weeks on a cancellation if possible, 12 weeks or next available appointment Please schedule your next appointment in 3 months! We would love to see you back on this journey! Options to schedule: Contact lockstitch front maker at [phone] Call the Central Scheduling Appointment Line [phone] 3. Use [email or web address] through [employer] LIFESTYLE PRESCRIPTION Functional Nutrition: Per [facility] [address] Sleep: Sleep goal for most adults is a minimum of 7-9 hours nightly. Exercise Prescription: Numerous studies confirm the benefits of regular moderate aerobic exercise (walking, swimming, elliptical machine, cycling, etc.) for 30 min 5 days per week (150 min goal). Stress Management: 1) Please look into this Heart Rate Variability BioFeedback Tool (www.heartmath.org). 2) A regular, daily meditation practice of at least 15-20 minutes will change your brain--as well as your genes! Behavioral Health Therapist: If I recommended counseling or individual therapy, please schedule an individual appointment with our Functional Medicine Behavioral Health Therapist after your visit today. The Behavioral Health Therapist helps patients identify and understand feelings and behaviors, experience the process of making positive change, and gain healthy coping skills. Health Coaching: Please consider scheduling with our [facility] Functional Medicine health coaches for a phone or virtual visit for accountability, goal setting and help with behavior private branch exchange installer the next 6-8 weeks to be successful with your goals. [phone]. Smart phone apps to begin a meditative practice: Headspace (free for first 10 days) Insight Meditation Timer- (Free)-Great all-around belle to use for guided meditations of many different types and lengths or just to use as a tool to time and track your meditation practice. This is my absolute favorite! Calm- (Free) Walking Meditations-($1.99)- Get your walk AND meditation done together. A good way to start out for individuals who feel they just can't sit still to begin a meditative practice. Medications/Supplements Recommended: No orders of the defined types were placed in this encounter. I recommend the supplements from the [facility] Healthy Living Store Online Store at [email or web address]://[email or web address].KeyLemon om/ as we have thoroughly evaluated the research and use only highest quality supplements. If you are a new patient, enter the following provider code: [id number] During the next 6-8 weeks you'll be working on your diet plan discussed with our desk manager, allowing for gentle detoxification and decreasing inflammation - while we are gathering your lab results and combining those with your complete history to formulate a very personalized treatment plan. LAB results: Due to the complexity of the testing performed, we are not able to review labs via [employer] or over the phone, but please know, if any of your labs are critical we will contact you. Otherwise, we will review all your labs at your next visit. Make sure to schedule with the desk manager (this will not happen automatically) as you did with your first visit so that she can review nutritional aspects of your treatment plan. By your 3rd visit, as things are improving, we will likely transition you to one of our very capable Certified Nurse Practitioners/Physician Assistants for further follow-up. Potential future labs: Any Sasha labs ordered take about 4 weeks to return. Do them as soon as possible so that we have the results before your next appointment. You can access them on the [employer] website and it can be beneficial if you review them prior to your next visit. www.[employer].net. Read about NutrEval/GI Effects if this was ordered. Time spend with patient: I spent a total of 50 minutes on the date of the service which included preparing to see the patient, telehealth patient care, completing clinical documentation, obtaining and/or reviewing separately obtained history, performing a medically appropriate examination, counseling and educating the patient/family/caregiver, ordering medications, tests, or procedures, communicating with other HCPs (not separately reported), independently interpreting results (not separately reported), communicating results to the patient/family/caregiver, and care coordination (not separately reported). Matthew Gallegos MD documented in this encounter [facility] 12-19-2023 Note HNO ID: [id number] Author: MATTHEW GALLEGOS MD Service: ? Author Type: Physician Type: Progress Notes Filed: 12/19/2023 15:21 Note Text: Virtual Follow-up Visit I have communicated my name and active licensure. The patient's identity and physical location were verified at the time of this visit. Either the patient or their legal branch sales and service representative has been informed of the risks and benefits of -- and alternatives to -- treatment through a remote evaluation and consents to proceed with the evaluation remotely. This Team Access Model visit is a virtual encounter. It required patient-provider interaction for the medical decision making as documented below. There is no height or weight on file to calculate BMI. RMR can't be calculated - Weight unrecorded in last 120 days. ALLERGIES Allergen Reactions Malarone [Atovaquon* Hives Thimersol [Thimeros* Makes eyes red- thimerosal in contacts PAST MEDICAL HISTORY Diagnosis Date Arrhythmia irregular heart rate-several yrs ago-PVC's Esophageal reflux 05/24/2005 Lichen sclerosus PERS HX OF THYROID MALIGNANCY 05/24/2005 Snoring PAST SURGICAL HISTORY Procedure Laterality Date COLONOSCOPY FLX DX W/COLLJ SPEC WHEN PFRMD 2003 Colonoscopy COLONOSCOPY FLX DX W/COLLJ SPEC WHEN PFRMD 10/01/14 Colonoscopy EGD TRANSORAL BIOPSY SINGLE/MULTIPLE 03/09/06 Hiatal hernia/gastritis/esophagitis ESOPHAGOGASTRODUODENOSCOPY TRANSORAL DIAGNOSTIC 10/01/14 EGD LAPS SURG CHOLECYSTECTOMY W/CHOLANGIOGRAPHY 03/12/06 PAST SURGICAL HISTORY OF 03/12/2006 transvaginal sling REMOVAL SKN TAGS DIRECTOR CHECK FIBRQ TAGS ANY AREA UPW03/18/11 Ablation skin tags/ shave bx x 2 S SLING BLADDER SALPINGO-OOPHORECTOMY COMPL/PRTL UNI/BI SPX 10/25/00 Salpingo-oophorectomy THYROIDECTOMY TOTAL/COMPLETE 07/19/01 For Cancer THYROIDECTOMY TOTAL/COMPLETE TOTAL ABDOMINAL HYSTERECT W/WO RMVL TUBE OVARY 10/25/00 Hysterectomy, FIDE for fibroids and abnormal menstruation Social History Tobacco Use Smoking status: Never Smokeless tobacco: Never Substance Use Topics Alcohol use: Yes Comment: Occaisional Drug use: No Functional Medicine Timeline Patient Entered Questionnaire PROMIS Scale T-Scores -- HIGHER SCORES BETTER 07/02/2023 09/13/2023 12/06/2023 PROMIS Global Health - (T-Scores - the mean of general population = 50. Five points is a clinically meaningful difference.) Physical T-Score 32.4 26.7 26.7 Mental T-Score 48.3 48.3 56 Depression Screenin09/24/2015 07/12/2022 PHQ-9 Score 4 9 9 07/12/2022 09/24/2015 PHQ-9 Self Harm Question 9 Not at all Not at all PHQ-9 Self-Harm (Item 9) response options: 0 Not at all 1 Several days 2 More than half the days 3 Nearly every day PHQ-9 Levels: 0-4 Minimal depression 5-9 Mild depression 10-14 Moderate depression 15-19 Moderately severe depression 20-27 Severe depression Subjective: 12/19/23 Dr. 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 She has a flare in past 6 months-rashes, muscle spasms, right knee pain Treated for lyme about a year ago by a lyme specialist who retired and scheduled to see a new provider in [place] For mold and mycotoxins: Fluconazole pulsed for about 8 weeks Itraconazole nasal spray Chlorella bid Chronic constipation Psyllium husk and Mixed probiotic for gut support Her new Car Greaser took her off liothyronine Performed new MOAT Profile-in progress Sees GI in March Doing acupcuntrue Supplements-botswanan knotweed, mervia bid, green ea extract, dopaplus, fish oil, Coq10, carnitine, vit D, mushroom mix, pantothene, magnesium 420 mg, black elderberry, B12, THC, glutathione Medications: Synthroid, amantadine, nuedexta Summary for Dr. Gallegos December 19, 2023 Waldemar Hudson Since I have lost my ability to speak clearly, I will summarize my health issues here. The test results are on file or submitted with my check-in. My Dieter Arthur will be present during the appointment to help interpret my speaking. 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 diff. 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 [facility] 12-18-2023 Note HNO ID: [id number] Author: NATHAN MADRIGAL PT Service: ? Author Type: Physical Therapist Type: Progress Notes Filed: 12/18/2023 17:00 Note Text: Episode Visit Count: 19 Therapist That Will Accept/Oversee The Plan Of Care: Nathan Madrigal PT, ANABELLE Start of Care Date: 10/03/23 Onset Date: (2011 and R LE symptoms of stiffness and pain worsening in the last month) Plan of Care Certification Date: 11/27/23 Next Certification Due Date: 01/11/24 Patient Identified by Name and Date of : Yes REHABILITATION AND SPORTS THERAPY PHYSICAL THERAPY TREATMENT NOTE ASSESSMENT: Waldemar Hudson tolerated the session with fatigue and increased R LE tone versus L LE tone, although this seems to be lessening since acupuncture treatments.. She demonstrated tolerance to increased repetitions for several exercises and was able to add lower trunk rotation with LE on yellow therapy ball and added partial curl ups with ball roll up the knees in supine today. The patient will continue to benefit from ongoing skilled physical therapy to progress toward set goals. PLAN FOR NEXT VISIT: Continue LE stretching and strengthening and possibly resume standing activities as pt tolerates. SUBJECTIVE: Patient reports that her pain level is 3 out of 10 and that she has slept a little better the last few nights. She did have complaints of bilateral hip pain last night that resolves when she moves around. Pain: Pain Pain Level: 3 Pain Location: Knee - Right Description: Sharp Frequency: With movement, At rest Post Treatment Pain Post Treatment Pain Level: Better OBJECTIVE MEASURES WITH LEVEL OF FUNCTION: No objective measurements taken this date. TREATMENT: Therapeutic Exercise: 1: Seated LAQ 2 x 15 reps w/ 3 sec hold and end range stretch by therapist 2: Seated marching with band x 15 reps w/ pink band (Did not complete today) 3: Seated resisted adduction x 30 reps 4: Seated resisted abduction x 30 reps w/ pink (Did not complete today) 5: Supine bridging 2 x 15 reps (Increased repetitions) 6: Supine bent leg marching 2 x 10 reps alternating 7: SAQ 2 x 15 reps each LE with assist (Increased repetitions) 8: Supine lower trunk rotation with assist with bilateral LE rested on yellow therapy ball x 15 each direction 9: Partial curl ups with yellow ball rolled up her knees x 10 Skilled Intervention: Skilled judgment was used in selection of appropriate interventions. Manual Therapy: 1: PROM to each LE for hips flexion, abduction, long axis rotation and hamstrings stretching, knees flexion/extension and bilateral ankle DF/PFmotions x 15 reps each. Skilled Intervention: Manual skills to improve joint mobility, ROM, and decrease pain. Utilized anatomy knowledge of the therapist, and assessment of patient's response to intervention. Billing Therapeutic Exercise Treatment Minutes: 35 Manual TherapyTreatment Minutes: 15 Skilled Treatment Time Minutes (timed and untimed codes): 50 Total Session Time (minutes): 55 Session Start Time : 1545 Session Stop Time : 1640 Nathan Madrigal PT, MBA [facility] 12-18-2023 History of Present illness Narrative Episode Visit Count: 19 Therapist That Will Accept/Oversee The Plan Of Care: Nathan Madrigal PT, MBA Start of Care Date: 10/03/23 Onset Date: (2012 and R LE symptoms of stiffness and pain worsening in the last month) Plan of Care Certification Date: 11/27/23 Next Certification Due Date: 01/11/24 Patient Identified by Name and Date of : Yes REHABILITATION AND SPORTS THERAPY PHYSICAL THERAPY TREATMENT NOTE ASSESSMENT: Waldemar Hudson tolerated the session with fatigue and increased R LE tone versus L LE tone, although this seems to be lessening since acupuncture treatments.. She demonstrated tolerance to increased repetitions for several exercises and was able to add lower trunk rotation with LE on yellow therapy ball and added partial curl ups with ball roll up the knees in supine today. The patient will continue to benefit from ongoing skilled physical therapy to progress toward set goals. PLAN FOR NEXT VISIT: Continue LE stretching and strengthening and possibly resume standing activities as pt tolerates. SUBJECTIVE: Patient reports that her pain level is 3 out of 10 and that she has slept a little better the last few nights. She did have complaints of bilateral hip pain last night that resolves when she moves around. Pain: Pain Pain Level: 3 Pain Location: Knee - Right Description: Sharp Frequency: With movement, At rest Post Treatment Pain Post Treatment Pain Level: Better OBJECTIVE MEASURES WITH LEVEL OF FUNCTION: No objective measurements taken this date. TREATMENT: Therapeutic Exercise: 1: Seated LAQ 2 x 15 reps w/ 3 sec hold and end range stretch by therapist 2: Seated marching with band x 15 reps w/ pink band (Did not complete today) 3: Seated resisted adduction x 30 reps 4: Seated resisted abduction x 30 reps w/ pink (Did not complete today) 5: Supine bridging 2 x 15 reps (Increased repetitions) 6: Supine bent leg marching 2 x 10 reps alternating 7: SAQ 2 x 15 reps each LE with assist (Increased repetitions) 8: Supine lower trunk rotation with assist with bilateral LE rested on yellow therapy ball x 15 each direction 9: Partial curl ups with yellow ball rolled up her knees x 10 Skilled Intervention: Skilled judgment was used in selection of appropriate interventions. Manual Therapy: 1: PROM to each LE for hips flexion, abduction, long axis rotation and hamstrings stretching, knees flexion/extension and bilateral ankle DF/PFmotions x 15 reps each. Skilled Intervention: Manual skills to improve joint mobility, ROM, and decrease pain. Utilized anatomy knowledge of the therapist, and assessment of patient's response to intervention. Billing Therapeutic Exercise Treatment Minutes: 35 Manual TherapyTreatment Minutes: 15 Skilled Treatment Time Minutes (timed and untimed codes): 50 Total Session Time (minutes): 55 Session Start Time : 1545 Session Stop Time : 1640 Nathan Madrigal PT, MBA documented in this encounter [facility] 12-14-2023 Note HNO ID: [id number] Author: NATHAN MADRIGAL PT Service: ? Author Type: Physical Therapist Type: Progress Notes Filed: 12/14/2023 16:39 Note Text: Episode Visit Count: 18 Therapist That Will Accept/Oversee The Plan Of Care: Nathan Madrigal PT, MBA Start of Care Date: 10/03/23 Onset Date: (2012 and R LE symptoms of stiffness and pain worsening in the last month) Plan of Care Certification Date: 11/27/23 Next Certification Due Date: 01/11/24 Patient Identified by Name and Date of : Yes REHABILITATION AND SPORTS THERAPY PHYSICAL THERAPY TREATMENT NOTE ASSESSMENT: Waldemar Hudson tolerated the session with expected muscle tightness and increased LE tone. She demonstrated increased R LE tone after initiating supine marching exercise initially. Patient noted decreased R knee pain after passive stretching and had less subjective pain at the end of the treatment session today. The patient will continue to benefit from ongoing skilled physical therapy to progress toward set goals. PLAN FOR NEXT VISIT: Continue to focus on LE stretching and strengthenig, standing balance, endurance and functional strengthening to improve standing tolerance and gait. SUBJECTIVE: Patient reports thta she is doing a little better today, but that the R knee is still giving out on her. She had more of a burning pain in the R knee last night. Pain: Pain Pain Level: 4 Pain Location: Knee - Right Description: Sharp Frequency: With movement, At rest Post Treatment Pain Post Treatment Pain Level: Better OBJECTIVE MEASURES WITH LEVEL OF FUNCTION: No objective measurements taken this date. TREATMENT: Therapeutic Exercise: 1: Seated LAQ 2 x 15 reps w/ 3 sec hold 2: Seated marching with band x 15 reps w/ pink band 3: Seated resisted adduction x 30 reps 4: Seated resisted abduction x 30 reps w/ pink 5: Supine bridging 2 x 10 reps 6: Supine bent leg marching 2 x 10 reps alternating 7: SAQ 2 x 10 reps each LE with assist Skilled Intervention: Skilled judgment was used in selection of appropriate interventions. Manual Therapy: 1: PROM to each LE for hips, knees in all planes and motions x 10 reps each. PROM trunk rotation x 10 reps each direction Skilled Intervention: Manual skills to improve joint mobility, ROM, and decrease pain. Utilized anatomy knowledge of the therapist, and assessment of patient's response to intervention. Billing Therapeutic Exercise Treatment Minutes: 30 Manual TherapyTreatment Minutes: 15 Skilled Treatment Time Minutes (timed and untimed codes): 45 Total Session Time (minutes): 52 Session Start Time : 1507 Session Stop Time : 1559 Nathan Madrigal PT, MBA [facility] 12-14-2023 History of Present illness Narrative Episode Visit Count: 18 Therapist That Will Accept/Oversee The Plan Of Care: Nathan Madriagl PT, MBA Start of Care Date: 10/03/23 Onset Date: (2011 and R LE symptoms of stiffness and pain worsening in the last month) Plan of Care Certification Date: 11/27/23 Next Certification Due Date: 01/11/24 Patient Identified by Name and Date of : Yes REHABILITATION AND SPORTS THERAPY PHYSICAL THERAPY TREATMENT NOTE ASSESSMENT: Waldemar Hudson tolerated the session with expected muscle tightness and increased LE tone. She demonstrated increased R LE tone after initiating supine marching exercise initially. Patient noted decreased R knee pain after passive stretching and had less subjective pain at the end of the treatment session today. The patient will continue to benefit from ongoing skilled physical therapy to progress toward set goals. PLAN FOR NEXT VISIT: Continue to focus on LE stretching and strengthenig, standing balance, endurance and functional strengthening to improve standing tolerance and gait. SUBJECTIVE: Patient reports thta she is doing a little better today, but that the R knee is still giving out on her. She had more of a burning pain in the R knee last night. Pain: Pain Pain Level: 4 Pain Location: Knee - Right Description: Sharp Frequency: With movement, At rest Post Treatment Pain Post Treatment Pain Level: Better OBJECTIVE MEASURES WITH LEVEL OF FUNCTION: No objective measurements taken this date. TREATMENT: Therapeutic Exercise: 1: Seated LAQ 2 x 15 reps w/ 3 sec hold 2: Seated marching with band x 15 reps w/ pink band 3: Seated resisted adduction x 30 reps 4: Seated resisted abduction x 30 reps w/ pink 5: Supine bridging 2 x 10 reps 6: Supine bent leg marching 2 x 10 reps alternating 7: SAQ 2 x 10 reps each LE with assist Skilled Intervention: Skilled judgment was used in selection of appropriate interventions. Manual Therapy: 1: PROM to each LE for hips, knees in all planes and motions x 10 reps each. PROM trunk rotation x 10 reps each direction Skilled Intervention: Manual skills to improve joint mobility, ROM, and decrease pain. Utilized anatomy knowledge of the therapist, and assessment of patient's response to intervention. Billing Therapeutic Exercise Treatment Minutes: 30 Manual TherapyTreatment Minutes: 15 Skilled Treatment Time Minutes (timed and untimed codes): 45 Total Session Time (minutes): 52 Session Start Time : 1507 Session Stop Time : 1559 Nathan Madrigal PT, MBA documented in this encounter [facility] 12-13-2023 Note HNO ID: [id number] Author: CORI HOPE R Ac Service: ? Author Type: Diplomat of Acupuncture Type: Progress Notes Filed: 12/13/2023 17:00 Note Text: Waldemar Hudson a 68 year old female presents to the acupuncture clinic on 12/13/23 for a follow up visit. Patient identity confirmed by name and : Yes This is the 4 visit for the patient this year It has been 1 week(s) since the last acupuncture treatment. Last treatment date: 12/04/2023 Initial Acupuncture treatment date: 11/12/2023 Chief Complaint: Primary lateral sclerosis, right knee pain SUBJECTIVE Patient returns with slightly improved muscle cramp in right thigh and right knee. Patient still experiences involuntary muscle movement in right lower limb. She noted her shoulder pain has been not bad. Patient has been experiencing muscle spasm in right anterolateral thigh. Patient has been battling MS since 2012. Patient has history of Lyme disease, mold exposure and thyroid cancer. Thyroidism Trialed PT, dry needling, chiropractic, massage. PAIN ASSESSMENT: Currently experiencing pain Pain level (0 no pain at all to 10 being the worst): 4 OBJECTIVE: Physical Exam: Tenderness: knees and feet Pain with palpation: na ROM: limited ROM Orthopedic Tests: na Tightness: knees Diivna/Trigger points: na Visual Inspection Discoloration: na Edema: no Gait/Ambulation: normal Ovalle: good Qi/Patient vitality: normal Alert Well-Groomed Normal Imaging reports Images on file See EPIC Images have been reviewed no TCM Tongue: NA TCM Pulse: thin and weak ASSESSMENT Patient presents with signs and symptoms consistent with the diagnosis. Patient would benefit from acupuncture therapy to address listed deficiencies and return to PLOF. Pt was educated on symptoms, prognosis, plan of care and activity modifications. Pt verbalized understanding and agreed to begin care. TCM Pattern: PLS due to Qi and blood deficiency. TCM Treatment Principle: Calm Ovalle. Promote smooth flow of Qi and blood. Open channel. Reduce pain. PLAN OF CARE Counseled patient on risks of acupuncture treatment including pain, infection, bleeding, and no relief of pain. The patient was positioned comfortably. There was no evidence of infection at the site of needle insertions. Acupuncture Treatment: Treatment/Needle Set 1, Supine: Points: Yin Gaytan, motor line 2 points bilaterally on the scalp, R: Brittni Ward Da Austen, SJ3, SI3, SP9, Di Hudson, SP6, GB31 15 minutes face to face with patient for set 1 Treatment/Needle Set 2, Supine: Points: B: Esquivel Chi, R: GB41, UB60, Si MA points 3, Xi Dinh, KD10, SP10, LV3 10 minutes face to face with patient for set 2 Calcium were retained for 30 minutes # of needles inserted: 27 # of needles withdrawn: 27 Adjunct techniques used: TDP Infrared Heat Lamp- Applied to Rt. Hip and right knee Patient tolerated the procedure well. UNIVERSAL PROTOCOL / SAFETY CHECKLIST Procedure to be Performed: Acupuncture Sign In: A Moment of CARE was completed. Personnel directly involved with the procedure wore the appropriate PPE (Personal Protective Equipment). Patient/Surrogate Stated/Verified: PATIENT VERIFIED(optional for EMERGENT procedures): Patient name, Date of , Relevant allergies, and The intended procedure Time Out Communication: Intended patient and procedure match the source documents. Consent documented and matches the intended procedure. Sign Out: SIGN OUT (optional for EMERGENT procedures): All instruments, equipment, possible retained foreign bodies accounted for. Trenton Hanson Provider Name: Trenton Hanson 25 Total minutes face to face time spent with patient Acupuncture and [place] herbal therapy are not a substitute for conventional medical diagnosis and treatment. Patient agrees that either: 1. A diagnostic exam has been performed by a physician or chiropractor within the last six months regarding the condition for which they are seeking acupuncture treatment. or 2. If no diagnostic exam by a physician or chiropractor has been done within the last six months regarding the condition for which patient is seeking treatment, the Processing Analyst, per [place] Law, recommends that this diagnostic exam be performed. [facility] 12-13-2023 History of Present illness Narrative Waldemar Hudson a 68 year old female presents to the acupuncture clinic on 12/13/23 for a follow up visit. Patient identity confirmed by name and : Yes This is the 4 visit for the patient this year It has been 1 week(s) since the last acupuncture treatment. Last treatment date: 12/04/2023 Initial Acupuncture treatment date: 11/12/2023 Chief Complaint: Primary lateral sclerosis, right knee pain SUBJECTIVE Patient returns with slightly improved muscle cramp in right thigh and right knee. Patient still experiences involuntary muscle movement in right lower limb. She noted her shoulder pain has been not bad. Patient has been experiencing muscle spasm in right anterolateral thigh. Patient has been battling MS since 2013. Patient has history of Lyme disease, mold exposure and thyroid cancer. Thyroidism Trialed PT, dry needling, chiropractic, massage. PAIN ASSESSMENT: Currently experiencing pain Pain level (0 no pain at all to 10 being the worst): 4 OBJECTIVE: Physical Exam: Tenderness: knees and feet Pain with palpation: na ROM: limited ROM Orthopedic Tests: na Tightness: knees Divina/Trigger points: na Visual Inspection Discoloration: na Edema: no Gait/Ambulation: normal Ovalle: good Qi/Patient vitality: normal Alert Well-Groomed Normal Imaging reports Images on file See EPIC Images have been reviewed no TCM Tongue: NA TCM Pulse: thin and weak ASSESSMENT Patient presents with signs and symptoms consistent with the diagnosis. Patient would benefit from acupuncture therapy to address listed deficiencies and return to PLOF. Pt was educated on symptoms, prognosis, plan of care and activity modifications. Pt verbalized understanding and agreed to begin care. TCM Pattern: PLS due to Qi and blood deficiency. TCM Treatment Principle: Calm Ovalle. Promote smooth flow of Qi and blood. Open channel. Reduce pain. PLAN OF CARE Counseled patient on risks of acupuncture treatment including pain, infection, bleeding, and no relief of pain. The patient was positioned comfortably. There was no evidence of infection at the site of needle insertions. Acupuncture Treatment: Treatment/Needle Set 1, Supine: Points: Yin Gaytan, motor line 2 points bilaterally on the scalp, R: Ling Ed Da Austen, SJ3, SI3, SP9, Di Hudson, SP6, GB31 15 minutes face to face with patient for set 1 Treatment/Needle Set 2, Supine: Points: B: Esquivel Chi, R: GB41, UB60, Si MA points 3, Xi Dinh, KD10, SP10, LV3 10 minutes face to face with patient for set 2 Calcium were retained for 30 minutes # of needles inserted: 27 # of needles withdrawn: 27 Adjunct techniques used: TDP Infrared Heat Lamp- Applied to Rt. Hip and right knee Patient tolerated the procedure well. UNIVERSAL PROTOCOL / SAFETY CHECKLIST Procedure to be Performed: Acupuncture Sign In: A Moment of CARE was completed. Personnel directly involved with the procedure wore the appropriate PPE (Personal Protective Equipment). Patient/Surrogate Stated/Verified: PATIENT VERIFIED(optional for EMERGENT procedures): Patient name, Date of , Relevant allergies, and The intended procedure Time Out Communication: Intended patient and procedure match the source documents. Consent documented and matches the intended procedure. Sign Out: SIGN OUT (optional for EMERGENT procedures): All instruments, equipment, possible retained foreign bodies accounted for. Trenton Hanson Provider Name: Trenton Hanson 25 Total minutes face to face time spent with patient Acupuncture and [place] herbal therapy are not a substitute for conventional medical diagnosis and treatment. Patient agrees that either: 1. A diagnostic exam has been performed by a physician or chiropractor within the last six months regarding the condition for which they are seeking acupuncture treatment. or 2. If no diagnostic exam by a physician or chiropractor has been done within the last six months regarding the condition for which patient is seeking treatment, the Processing Analyst, per [place] Law, recommends that this diagnostic exam be performed. documented in this encounter [facility] 12-11-2023 Note HNO ID: [id number] Author: DAJA GOMEZ PTA Service: ? Author Type: Clarity Specialists Type: Progress Notes Filed: 12/11/2023 16:45 Note Text: Episode Visit Count: 17 Therapist That Will Accept/Oversee The Plan Of Care: Nathan Madrigal PT, MBA Start of Care Date: 10/03/23 Onset Date: (2012 and R LE symptoms of stiffness and pain worsening in the last month) Plan of Care Certification Date: 11/27/23 Next Certification Due Date: 01/11/24 Patient Identified by Name and Date of : Yes REHABILITATION AND SPORTS THERAPY PHYSICAL THERAPY TREATMENT NOTE ASSESSMENT: Waldemar Hudson tolerated the session with no issues. She demonstrated ability to perform seated and supine exercises this date with continued pain and tightness in her bilateral LE's R>L. Patient's right LE draws up into flexion when right hamstring is stretched or palpated this date. Patient was unable to relax right knee enough to be able to place on the bolster for SAQ so support of this therapist was given for patient to be able to perform this exercise. The patient will continue to benefit from ongoing skilled physical therapy to progress toward set goals. PLAN FOR NEXT VISIT: Continue to focus on standing balance, endurance and functional strengthening to improve standing tolerance and gait. SUBJECTIVE: Patient reporting that her knee is feeling a little better and her pain is not so bad in her right knee today. She reported that she has been taking Aleve to assist especially at night to help with sleep as she is not able to get comfortable. Pain: Pain Pain Level: 4 Pain Location: Knee - Right Description: Sharp Frequency: With movement, At rest Post Treatment Pain Post Treatment Pain Level: No Change OBJECTIVE MEASURES WITH LEVEL OF FUNCTION: No objective measures taken this date. TREATMENT: Therapeutic Exercise: 1: Seated LAQ 2 x 15 reps w/ 3 sec hold 2: Seated marching with band x 15 reps w/ pink band 3: Seated resisted adduction x 30 reps 4: Seated resisted abduction x 30 reps w/ pink 5: Supine bridging 2 x 10 reps 6: Supine bent leg marching 2 x 10 reps alternating 7: SAQ 2 x 10 reps each LE with assist Skilled Intervention: Patient was educated in proper exercise technique and purpose for exercises. Skilled judgment was used in selection of appropriate interventions. Manual Therapy: 1: PROM to each LE for hips, knees in all planes and motions x 10 reps each. PROM trunk rotation x 10 reps each direction Skilled Intervention: Manual skills to improve joint mobility, ROM, and decrease pain. Utilized anatomy knowledge of the therapist, and assessment of patient's response to intervention. Billing Therapeutic Exercise Treatment Minutes: 30 Manual TherapyTreatment Minutes: 15 Skilled Treatment Time Minutes (timed and untimed codes): 45 Total Session Time (minutes): 52 Session Start Time : 1533 Session Stop Time : 1625 Daja Gomez [facility] 12-11-2023 History of Present illness Narrative Episode Visit Count: 17 Therapist That Will Accept/Oversee The Plan Of Care: Nathan Madrigal PT, ANABELLE Start of Care Date: 10/03/23 Onset Date: (2012 and R LE symptoms of stiffness and pain worsening in the last month) Plan of Care Certification Date: 11/27/23 Next Certification Due Date: 01/11/24 Patient Identified by Name and Date of : Yes REHABILITATION AND SPORTS THERAPY PHYSICAL THERAPY TREATMENT NOTE ASSESSMENT: Waldemar Hudson tolerated the session with no issues. She demonstrated ability to perform seated and supine exercises this date with continued pain and tightness in her bilateral LE's R>L. Patient's right LE draws up into flexion when right hamstring is stretched or palpated this date. Patient was unable to relax right knee enough to be able to place on the bolster for SAQ so support of this therapist was given for patient to be able to perform this exercise. The patient will continue to benefit from ongoing skilled physical therapy to progress toward set goals. PLAN FOR NEXT VISIT: Continue to focus on standing balance, endurance and functional strengthening to improve standing tolerance and gait. SUBJECTIVE: Patient reporting that her knee is feeling a little better and her pain is not so bad in her right knee today. She reported that she has been taking Aleve to assist especially at night to help with sleep as she is not able to get comfortable. Pain: Pain Pain Level: 4 Pain Location: Knee - Right Description: Sharp Frequency: With movement, At rest Post Treatment Pain Post Treatment Pain Level: No Change OBJECTIVE MEASURES WITH LEVEL OF FUNCTION: No objective measures taken this date. TREATMENT: Therapeutic Exercise: 1: Seated LAQ 2 x 15 reps w/ 3 sec hold 2: Seated marching with band x 15 reps w/ pink band 3: Seated resisted adduction x 30 reps 4: Seated resisted abduction x 30 reps w/ pink 5: Supine bridging 2 x 10 reps 6: Supine bent leg marching 2 x 10 reps alternating 7: SAQ 2 x 10 reps each LE with assist Skilled Intervention: Patient was educated in proper exercise technique and purpose for exercises. Skilled judgment was used in selection of appropriate interventions. Manual Therapy: 1: PROM to each LE for hips, knees in all planes and motions x 10 reps each. PROM trunk rotation x 10 reps each direction Skilled Intervention: Manual skills to improve joint mobility, ROM, and decrease pain. Utilized anatomy knowledge of the therapist, and assessment of patient's response to intervention. Billing Therapeutic Exercise Treatment Minutes: 30 Manual TherapyTreatment Minutes: 15 Skilled Treatment Time Minutes (timed and untimed codes): 45 Total Session Time (minutes): 52 Session Start Time : 1533 Session Stop Time : 1625 Daja Gomez PTA documented in this encounter [facility] 12-04-2023 Note HNO ID: [id number] Author: CORI HOPE R Ac Service: ? Author Type: Diplomat of Acupuncture Type: Progress Notes Filed: 12/04/2023 16:11 Note Text: Waldemar Hudson a 67 year old female presents to the acupuncture clinic on 12/04/23 for a follow up visit. Patient identity confirmed by name and : Yes This is the 3 visit for the patient this year It has been 1 week(s) since the last acupuncture treatment. Last treatment date: 11/27/2023 Initial Acupuncture treatment date: 11/12/2023 Chief Complaint: Primary lateral sclerosis SUBJECTIVE Patient returns with ongoing muscle weakness, pain in right knee with swellings, sharp pain in right hip and ankles. She noted her shoulder pain has been not bad. Patient has been experiencing muscle spasm in right anterolateral thigh. Patient has been battling MS since 2013. Patient has history of Lyme disease, mold exposure and thyroid cancer. Thyroidism Trialed PT, dry needling, chiropractic, massage. PAIN ASSESSMENT: Currently experiencing pain Pain level (0 no pain at all to 10 being the worst): 4 OBJECTIVE: Physical Exam: Tenderness: knees and feet Pain with palpation: na ROM: limited ROM Orthopedic Tests: na Tightness: knees Divina/Trigger points: na Visual Inspection Discoloration: na Edema: no Gait/Ambulation: normal Ovalle: good Qi/Patient vitality: normal Alert Well-Groomed Normal Imaging reports Images on file See EPIC Images have been reviewed no TCM Tongue: NA TCM Pulse: thin and weak ASSESSMENT Patient presents with signs and symptoms consistent with the diagnosis. Patient would benefit from acupuncture therapy to address listed deficiencies and return to PLOF. Pt was educated on symptoms, prognosis, plan of care and activity modifications. Pt verbalized understanding and agreed to begin care. TCM Pattern: PLS due to Qi and blood deficiency. TCM Treatment Principle: Calm Ovalle. Promote smooth flow of Qi and blood. Open channel. Reduce pain. PLAN OF CARE Counseled patient on risks of acupuncture treatment including pain, infection, bleeding, and no relief of pain. The patient was positioned comfortably. There was no evidence of infection at the site of needle insertions. Acupuncture Treatment: Treatment/Needle Set 1, Supine: Points: Yin Gaytan, motor line 2 points bilaterally on the scalp, R: Brittni Peace, SJ3, SP9, Maritza Hudson, SP6, GB31 15 minutes face to face with patient for set 1 Treatment/Needle Set 2, Supine: Points: B: Esquivel Chi, R: UB59, UB60, Si MA points 3, Xi Dinh, KD10, SP10 10 minutes face to face with patient for set 2 Calcium were retained for 30 minutes # of needles inserted: 25 # of needles withdrawn: 25 Adjunct techniques used: TDP Infrared Heat Lamp- Applied to Rt. Hip and right knee Patient tolerated the procedure well. UNIVERSAL PROTOCOL / SAFETY CHECKLIST Procedure to be Performed: Acupuncture Sign In: A Moment of CARE was completed. Personnel directly involved with the procedure wore the appropriate PPE (Personal Protective Equipment). Patient/Surrogate Stated/Verified: PATIENT VERIFIED(optional for EMERGENT procedures): Patient name, Date of , Relevant allergies, and The intended procedure Time Out Communication: Intended patient and procedure match the source documents. Consent documented and matches the intended procedure. Sign Out: SIGN OUT (optional for EMERGENT procedures): All instruments, equipment, possible retained foreign bodies accounted for. Trenton Hanson Provider Name: Trenton Hanson 25 Total minutes face to face time spent with patient Acupuncture and [place] herbal therapy are not a substitute for conventional medical diagnosis and treatment. Patient agrees that either: 1. A diagnostic exam has been performed by a physician or chiropractor within the last six months regarding the condition for which they are seeking acupuncture treatment. or 2. If no diagnostic exam by a physician or chiropractor has been done within the last six months regarding the condition for which patient is seeking treatment, the Processing Analyst, per [place] Law, recommends that this diagnostic exam be performed. [facility] 12-04-2023 History of Present illness Narrative Waldemar Hudson a 67 year old female presents to the acupuncture clinic on 12/04/23 for a follow up visit. Patient identity confirmed by name and : Yes This is the 3 visit for the patient this year It has been 1 week(s) since the last acupuncture treatment. Last treatment date: 11/27/2023 Initial Acupuncture treatment date: 11/12/2023 Chief Complaint: Primary lateral sclerosis SUBJECTIVE Patient returns with ongoing muscle weakness, pain in right knee with swellings, sharp pain in right hip and ankles. She noted her shoulder pain has been not bad. Patient has been experiencing muscle spasm in right anterolateral thigh. Patient has been battling MS since 2012. Patient has history of Lyme disease, mold exposure and thyroid cancer. Thyroidism Trialed PT, dry needling, chiropractic, massage. PAIN ASSESSMENT: Currently experiencing pain Pain level (0 no pain at all to 10 being the worst): 4 OBJECTIVE: Physical Exam: Tenderness: knees and feet Pain with palpation: na ROM: limited ROM Orthopedic Tests: na Tightness: knees Divina/Trigger points: na Visual Inspection Discoloration: na Edema: no Gait/Ambulation: normal Ovalle: good Qi/Patient vitality: normal Alert Well-Groomed Normal Imaging reports Images on file See EPIC Images have been reviewed no TCM Tongue: NA TCM Pulse: thin and weak ASSESSMENT Patient presents with signs and symptoms consistent with the diagnosis. Patient would benefit from acupuncture therapy to address listed deficiencies and return to PLOF. Pt was educated on symptoms, prognosis, plan of care and activity modifications. Pt verbalized understanding and agreed to begin care. TCM Pattern: PLS due to Qi and blood deficiency. TCM Treatment Principle: Calm Ovalle. Promote smooth flow of Qi and blood. Open channel. Reduce pain. PLAN OF CARE Counseled patient on risks of acupuncture treatment including pain, infection, bleeding, and no relief of pain. The patient was positioned comfortably. There was no evidence of infection at the site of needle insertions. Acupuncture Treatment: Treatment/Needle Set 1, Supine: Points: Yin Gaytan, motor line 2 points bilaterally on the scalp, R: Ling Ed Da Austen, SJ3, SP9, Di Hudson, SP6, GB31 15 minutes face to face with patient for set 1 Treatment/Needle Set 2, Supine: Points: B: Esquivel Chi, R: UB59, UB60, Si MA points 3, Xi Dinh, KD10, SP10 10 minutes face to face with patient for set 2 Calcium were retained for 30 minutes # of needles inserted: 25 # of needles withdrawn: 25 Adjunct techniques used: TDP Infrared Heat Lamp- Applied to Rt. Hip and right knee Patient tolerated the procedure well. UNIVERSAL PROTOCOL / SAFETY CHECKLIST Procedure to be Performed: Acupuncture Sign In: A Moment of CARE was completed. Personnel directly involved with the procedure wore the appropriate PPE (Personal Protective Equipment). Patient/Surrogate Stated/Verified: PATIENT VERIFIED(optional for EMERGENT procedures): Patient name, Date of , Relevant allergies, and The intended procedure Time Out Communication: Intended patient and procedure match the source documents. Consent documented and matches the intended procedure. Sign Out: SIGN OUT (optional for EMERGENT procedures): All instruments, equipment, possible retained foreign bodies accounted for. Trenton Hanson Provider Name: Trenton Hanson 25 Total minutes face to face time spent with patient Acupuncture and [place] herbal therapy are not a substitute for conventional medical diagnosis and treatment. Patient agrees that either: 1. A diagnostic exam has been performed by a physician or chiropractor within the last six months regarding the condition for which they are seeking acupuncture treatment. or 2. If no diagnostic exam by a physician or chiropractor has been done within the last six months regarding the condition for which patient is seeking treatment, the Processing Analyst, per [place], recommends that this diagnostic exam be performed. documented in this encounter [facility] 11-30-2023 Note HNO ID: [id number] Author: DAJA GOMEZ PTA Service: ? Author Type: Clarity Specialists Type: Progress Notes Filed: 11/30/2023 16:49 Note Text: Episode Visit Count: 16 Therapist That Will Accept/Oversee The Plan Of Care: Nathan Madrigal PT, ANABELLE Start of Care Date: 10/03/23 Onset Date: (2011 and R LE symptoms of stiffness and pain worsening in the last month) Plan of Care Certification Date: 11/27/23 Next Certification Due Date: 01/11/24 Patient Identified by Name and Date of : Yes REHABILITATION AND SPORTS THERAPY PHYSICAL THERAPY TREATMENT NOTE ASSESSMENT: Waldemar Hudson tolerated the session with no issues. She demonstrated good tolerance to passive stretching this date with increased tone of her right LE when performing manual STM. The patient will continue to benefit from ongoing skilled physical therapy to progress toward set goals. PLAN FOR NEXT VISIT: Continue to focus on standing balance, endurance and functional strengthening to improve standing tolerance and gait. SUBJECTIVE: Patient reported that she is still having increased pain in her right knee and stiffness. She reported that she is not sleeping well due to same. Pain: Pain Pain Level: 5 Pain Location: Knee - Right Description: Sharp Post Treatment Pain Post Treatment Pain Level: No Change OBJECTIVE MEASURES WITH LEVEL OF FUNCTION: TREATMENT: Therapeutic Exercise: 1: Seated LAQ 2 x 15 reps w/ 3 sec hold 2: Seated marching with band x 15 reps w/ pink band 3: Supine SAQ x 15 reps each LE Skilled Intervention: Patient was educated in proper exercise technique and purpose for exercises. Skilled judgment was used in selection of appropriate interventions. Manual Therapy: 1: PROM to each LE for hips, knees in all planes and motions x 10 reps each. PROM trunk rotation x 10 reps each direction 2: STM to posterior thigh right side due to rigid hamstring with patient initially tolerating well and then she reported that it became uncomfortable Skilled Intervention: Manual skills to improve joint mobility, ROM, and decrease pain. Utilized anatomy knowledge of the therapist, and assessment of patient's response to intervention. Neuromuscular Re-Education: 1: Seated on side of plinth passing red theraball overhead x 10 reps each direction 2: Seated on side of plinth and lateral stretch over large theraball x 10 reps each side and then posterior lean onto large ball and abdominals set to sit up x 10 reps Skilled Intervention: CGA->SBA for balance Billing Therapeutic Exercise Treatment Minutes: 25 Manual TherapyTreatment Minutes: 10 Neuromuscular Re-Education Treatment Minutes: 15 Skilled Treatment Time Minutes (timed and untimed codes): 50 Total Session Time (minutes): 60 Session Start Time : 1530 Session Stop Time : 1630 Daja Gomez [facility] 11-27-2023 Note HNO ID: [id number] Author: CORI HOPE R Ac Service: ? Author Type: Diplomat of Acupuncture Type: Progress Notes Filed: 11/27/2023 17:16 Note Text: Waldemar Hudson a 67 year old female presents to the acupuncture clinic on 11/27/23 for a follow up visit. Patient identity confirmed by name and : Yes This is the 2 visit for the patient this year It has been 2 week(s) since the last acupuncture treatment. Last treatment date: 11/12/2023 Initial Acupuncture treatment date: 11/12/2023 Chief Complaint: Primary lateral Sclerosis SUBJECTIVE Patient returns with ongoing muscle weakness, pain in right knee with swellings, sharp pain in right hip and ankles. She noted her shoulder pain has been not bad. Patient has been battling MS since 2012. Patient has history of Lyme disease, mold exposure and thyroid cancer. Thyroidism Trialed PT, dry needling, chiropractic, massage. PAIN ASSESSMENT: Currently experiencing pain Pain level (0 no pain at all to 10 being the worst): 4 OBJECTIVE: Physical Exam: Tenderness: knees and feet Pain with palpation: na ROM: limited ROM Orthopedic Tests: na Tightness: knees Divina/Trigger points: na Visual Inspection Discoloration: na Edema: no Gait/Ambulation: normal Ovalle: good Qi/Patient vitality: normal Alert Well-Groomed Normal Imaging reports Images on file See EPIC Images have been reviewed no TCM Tongue: NA TCM Pulse: thin and weak ASSESSMENT Patient presents with signs and symptoms consistent with the diagnosis. Patient would benefit from acupuncture therapy to address listed deficiencies and return to PLOF. Pt was educated on symptoms, prognosis, plan of care and activity modifications. Pt verbalized understanding and agreed to begin care. TCM Pattern: PLS due to Qi and blood deficiency. TCM Treatment Principle: Calm Ovalle. Promote smooth flow of Qi and blood. Open channel. Reduce pain. PLAN OF CARE Counseled patient on risks of acupuncture treatment including pain, infection, bleeding, and no relief of pain. The patient was positioned comfortably. There was no evidence of infection at the site of needle insertions. Acupuncture Treatment: Treatment/Needle Set 1, Left Side: Points: Yin Gaytan, motor line 3 points bilaterally on the scalp, L: SJ3, LI3, LI4, R: divina points on the hip 15 minutes face to face with patient for set 1 Treatment/Needle Set 2, Left Side: Points: R: UB24, UB25, UB26, UB27, Xi Dinh, GB34, GB37, GB39, UB60, SP10, ST36 10 minutes face to face with patient for set 2 Calcium were retained for 30 minutes # of needles inserted: 31 # of needles withdrawn: 31 Adjunct techniques used: TDP Infrared Heat Lamp- Applied to Rt. Hip and right knee Patient tolerated the procedure well. UNIVERSAL PROTOCOL / SAFETY CHECKLIST Procedure to be Performed: Acupuncture Sign In: A Moment of CARE was completed. Personnel directly involved with the procedure wore the appropriate PPE (Personal Protective Equipment). Patient/Surrogate Stated/Verified: PATIENT VERIFIED(optional for EMERGENT procedures): Patient name, Date of , Relevant allergies, and The intended procedure Time Out Communication: Intended patient and procedure match the source documents. Consent documented and matches the intended procedure. Sign Out: SIGN OUT (optional for EMERGENT procedures): All instruments, equipment, possible retained foreign bodies accounted for. Trenton Hanson Provider Name: Trenton Hanson 25 Total minutes face to face time spent with patient Acupuncture and [place] herbal therapy are not a substitute for conventional medical diagnosis and treatment. Patient agrees that either: 1. A diagnostic exam has been performed by a physician or chiropractor within the last six months regarding the condition for which they are seeking acupuncture treatment. or 2. If no diagnostic exam by a physician or chiropractor has been done within the last six months regarding the condition for which patient is seeking treatment, the Processing Analyst, per [place] Law, recommends that this diagnostic exam be performed. [facility] 11-27-2023 History of Present illness Narrative Waldemar Hudson a 67 year old female presents to the acupuncture clinic on 11/27/23 for a follow up visit. Patient identity confirmed by name and : Yes This is the 2 visit for the patient this year It has been 2 week(s) since the last acupuncture treatment. Last treatment date: 11/12/2023 Initial Acupuncture treatment date: 11/12/2023 Chief Complaint: Primary lateral Sclerosis SUBJECTIVE Patient returns with ongoing muscle weakness, pain in right knee with swellings, sharp pain in right hip and ankles. She noted her shoulder pain has been not bad. Patient has been battling MS since 2012. Patient has history of Lyme disease, mold exposure and thyroid cancer. Thyroidism Trialed PT, dry needling, chiropractic, massage. PAIN ASSESSMENT: Currently experiencing pain Pain level (0 no pain at all to 10 being the worst): 4 OBJECTIVE: Physical Exam: Tenderness: knees and feet Pain with palpation: na ROM: limited ROM Orthopedic Tests: na Tightness: knees Divina/Trigger points: na Visual Inspection Discoloration: na Edema: no Gait/Ambulation: normal Ovalle: good Qi/Patient vitality: normal Alert Well-Groomed Normal Imaging reports Images on file See EPIC Images have been reviewed no TCM Tongue: NA TCM Pulse: thin and weak ASSESSMENT Patient presents with signs and symptoms consistent with the diagnosis. Patient would benefit from acupuncture therapy to address listed deficiencies and return to PLOF. Pt was educated on symptoms, prognosis, plan of care and activity modifications. Pt verbalized understanding and agreed to begin care. TCM Pattern: PLS due to Qi and blood deficiency. TCM Treatment Principle: Calm Ovalle. Promote smooth flow of Qi and blood. Open channel. Reduce pain. PLAN OF CARE Counseled patient on risks of acupuncture treatment including pain, infection, bleeding, and no relief of pain. The patient was positioned comfortably. There was no evidence of infection at the site of needle insertions. Acupuncture Treatment: Treatment/Needle Set 1, Left Side: Points: Yin Gaytan, motor line 3 points bilaterally on the scalp, L: SJ3, LI3, LI4, R: divina points on the hip 15 minutes face to face with patient for set 1 Treatment/Needle Set 2, Left Side: Points: R: UB24, UB25, UB26, UB27, Xi Dinh, GB34, GB37, GB39, UB60, SP10, ST36 10 minutes face to face with patient for set 2 Calcium were retained for 30 minutes # of needles inserted: 31 # of needles withdrawn: 31 Adjunct techniques used: TDP Infrared Heat Lamp- Applied to Rt. Hip and right knee Patient tolerated the procedure well. UNIVERSAL PROTOCOL / SAFETY CHECKLIST Procedure to be Performed: Acupuncture Sign In: A Moment of CARE was completed. Personnel directly involved with the procedure wore the appropriate PPE (Personal Protective Equipment). Patient/Surrogate Stated/Verified: PATIENT VERIFIED(optional for EMERGENT procedures): Patient name, Date of , Relevant allergies, and The intended procedure Time Out Communication: Intended patient and procedure match the source documents. Consent documented and matches the intended procedure. Sign Out: SIGN OUT (optional for EMERGENT procedures): All instruments, equipment, possible retained foreign bodies accounted for. Trenton Hanson Provider Name: Trenton Hanson 25 Total minutes face to face time spent with patient Acupuncture and [place] herbal therapy are not a substitute for conventional medical diagnosis and treatment. Patient agrees that either: 1. A diagnostic exam has been performed by a physician or chiropractor within the last six months regarding the condition for which they are seeking acupuncture treatment. or 2. If no diagnostic exam by a physician or chiropractor has been done within the last six months regarding the condition for which patient is seeking treatment, the Processing Analyst, per [place] Law, recommends that this diagnostic exam be performed. documented in this encounter [facility] 11-27-2023 Note HNO ID: [id number] Author: NATHAN MADRIGAL PT Service: ? Author Type: Physical Therapist Type: Progress Notes Filed: 11/27/2023 18:17 Note Text: Episode Visit Count: 15 Therapist That Will Accept/Oversee The Plan Of Care: Nathan Madrigal PT, ANABELLE Start of Care Date: 10/03/23 Onset Date: (2011 and R LE symptoms of stiffness and pain worsening in the last month) Plan of Care Certification Date: 11/27/23 Next Certification Due Date: 01/11/24 Patient Identified by Name and Date of : Yes REHABILITATION AND SPORTS THERAPY PHYSICAL THERAPY PROGRESS REPORT PLAN OF CARE UPDATE: Assessment: Waldemar Hudson demonstrates continued difficulty with ambulation with WW due to bilateral knee flexion contractures/increased muscle tone and requires additional time for all transfers, gait, and for completing strengthening and neuromuscular exercises in therapy. She has progressed toward goals and has shown improvements in her sit<-> stand transfers with less assist needed and with improved concentric and eccentric control when completing these transfers. Patient continues to present with impairments in ADL's, flexibility, gait, independence in exercise, overall function, range of motion, strength, and symptom management that interfere with rising from a chair, walking in the house, stair negotiation, bending, sleeping, dressing, grooming, physical activities, Comments Patient states that she does not sleep well at night and cannot get comfortable and then has to take a nap in the middle of the day. Her rising from a chair was better prior to the R knee pain flare up. She is able to complete car transfers without needing assist in getting the legs into the car. With momentum, she can lift her legs into the bed for bed mobility tasks.. Current prognosis is Fair due to: clinical presentation, chronic nature of impairments, limited tolerance to activity, Prognosis may be improved by good support system/ coping skills, positive past response to therapy. She will benefit from continued skilled therapy services to meet the updated goals for this plan of care as noted below. Goals for Episode of Care: created on 11/27/2023 through 01/11/2024 Patient will increase active ROM of bilateral knees to no greater than 10-15 degrees from achieving full knee extension to allow patient to improve postural alignment, to improve gait mechanics / gait pattern , and to decrease falls risks. (Ongoing. Some improvements noted since initial evaluation) Patient will be able to correct postural deviations with minimal assist verbal cues in order to improve postural alignment of trunk during transfers, ambulation, and standing and to decrease current R LE pain. (Progressing and ongoing) Decrease R hip/R knee pain to 1-4/10 at rest and with functional activities to allow patient to improve ambulation, transfers, and standing tolerance for ADLs. (Ongoing) Patient will ambulate 50-75 feet with rolling walker with stand by assist to allow patient to be able to ambulate to and from her bathroom at home with less difficulty. (Ongoing) Patient to be able to non-reciprocally negotiate stairs at home with bilateral rail use with assist of for safety as needed and be able to complete this task in 5 minutes as she did previously. (Ongoing with patient working on step ups) Patient Goals: To reduce my right knee pain Planned Interventions, Frequency, and Duration: 2x/week, 6 weeks Total Number of Visits Planned: 12 Patient to be seen for Therapeutic exercise (78337), Neuromuscular re-education (37132), Manual therapy (04767), Therapeutic activities (38195), Self-nursing home management (72641), Gait Training (90464), Patient/Family/Caregiver Education PLAN FOR NEXT VISIT: Continue to focus on standing balance, endurance and functional strengthening to improve standing tolerance and gait. SUBJECTIVE: Patient notes that she is not feeling great today and feels that she feels that has the start of a virus. Her states that she slept a lot the other day. She notes that her R knee pain is about a 5 out of 10 today and that her muscles are really stiff. Patient will have an acupuncture appointment after therapy today. She did not notice any differences with the first acupuncture treatment. Her thyroid tests also came back normally. Patient's states that stairs are still an issue for patient as he helps to boost her at her hips after she lifts the L LE first on the step and then follows with the R LE. Functional Limitations: rising from a chair, walking in the house, stair negotiation, bending, sleeping, dressing, grooming, physical activities, Comments Functional Limitation Comments: Patient states that she does not sleep well at night and cannot get comfortable and then has to take a nap in the middle of the day. Her rising from a chair was better prior to the R knee pain flare up. Sh (more content not included)... [facility] 11-27-2023 History of Present illness Narrative Images from the original note were not included. Episode Visit Count: 15 Therapist That Will Accept/Oversee The Plan Of Care: Nathan Madrigal PT, ANABELLE Start of Care Date: 10/03/23 Onset Date: (2011 and R LE symptoms of stiffness and pain worsening in the last month) Plan of Care Certification Date: 11/27/23 Next Certification Due Date: 01/11/24 Patient Identified by Name and Date of : Yes REHABILITATION AND SPORTS THERAPY PHYSICAL THERAPY PROGRESS REPORT PLAN OF CARE UPDATE: Assessment: Waldemar Hudson demonstrates continued difficulty with ambulation with WW due to bilateral knee flexion contractures/increased muscle tone and requires additional time for all transfers, gait, and for completing strengthening and neuromuscular exercises in therapy. She has progressed toward goals and has shown improvements in her sit<-> stand transfers with less assist needed and with improved concentric and eccentric control when completing these transfers. Patient continues to present with impairments in ADL's, flexibility, gait, independence in exercise, overall function, range of motion, strength, and symptom management that interfere with rising from a chair, walking in the house, stair negotiation, bending, sleeping, dressing, grooming, physical activities, Comments Patient states that she does not sleep well at night and cannot get comfortable and then has to take a nap in the middle of the day. Her rising from a chair was better prior to the R knee pain flare up. She is able to complete car transfers without needing assist in getting the legs into the car. With momentum, she can lift her legs into the bed for bed mobility tasks.. Current prognosis is Fair due to: clinical presentation, chronic nature of impairments, limited tolerance to activity, Prognosis may be improved by good support system/ coping skills, positive past response to therapy. She will benefit from continued skilled therapy services to meet the updated goals for this plan of care as noted below. Goals for Episode of Care: created on 11/27/2023 through 01/11/2024 Patient will increase active ROM of bilateral knees to no greater than 10-15 degrees from achieving full knee extension to allow patient to improve postural alignment, to improve gait mechanics / gait pattern , and to decrease falls risks. (Ongoing. Some improvements noted since initial evaluation) Patient will be able to correct postural deviations with minimal assist verbal cues in order to improve postural alignment of trunk during transfers, ambulation, and standing and to decrease current R LE pain. (Progressing and ongoing) Decrease R hip/R knee pain to 1-4/10 at rest and with functional activities to allow patient to improve ambulation, transfers, and standing tolerance for ADLs. (Ongoing) Patient will ambulate 50-75 feet with rolling walker with stand by assist to allow patient to be able to ambulate to and from her bathroom at home with less difficulty. (Ongoing) Patient to be able to non-reciprocally negotiate stairs at home with bilateral rail use with assist of for safety as needed and be able to complete this task in 5 minutes as she did previously. (Ongoing with patient working on step ups) Patient Goals: To reduce my right knee pain Planned Interventions, Frequency, and Duration: 2x/week, 6 weeks Total Number of Visits Planned: 12 Patient to be seen for Therapeutic exercise (73168), Neuromuscular re-education (70438), Manual therapy (79256), Therapeutic activities (31149), Self-nursing home management (78796), Gait Training (92525), Patient/Family/Caregiver Education PLAN FOR NEXT VISIT: Continue to focus on standing balance, endurance and functional strengthening to improve standing tolerance and gait. SUBJECTIVE: Patient notes that she is not feeling great today and feels that she feels that has the start of a virus. Her states that she slept a lot the other day. She notes that her R knee pain is about a 5 out of 10 today and that her muscles are really stiff. Patient will have an acupuncture appointment after therapy today. She did not notice any differences with the first acupuncture treatment. Her thyroid tests also came back normally. Patient's states that stairs are still an issue for patient as he helps to boost her at her hips after she lifts the L LE first on the step and then follows with the R LE. Functional Limitations: rising from a chair, walking in the house, stair negotiation, bending, sleeping, dressing, grooming, physical activities, Comments Functional Limitation Comments: Patient states that she does not sleep well at night and cannot get comfortable and then has to take a nap in the middle of the day. Her rising from a chair was better prior to the R knee pain flare up. She is able to complete car transfers without needing assist in getting the legs into the car. With momentum, she can lift her legs into the bed for bed mobility tasks. Pain: Pain Pain Level: 5 Pain Location: Knee - Right Post Treatment Pain Post Treatment Pain Level: No Change PROMIS Scales 11/25/2023 11/08/2023 10/29/2023 Higher is Better Phys Func - Score 23 (severe dysfunction) Phys Func - Percentile 0 Self-Eff Symptom - Score 42 (Average) 32 (Low) Self-Eff Symptom - Percentile 21 4 T-scores: mean of general population = 50. 5 points is clinically meaningfully difference Percentiles provide an indication of how the patient's score ranks in relation to the general population. Higher percentile rankings indicate better function/quality of life. 50th percentile is the average of the general population and indicates half of respondents had a worse score. OBJECTIVE MEASURES WITH LEVEL OF FUNCTION: LE AROM R Knee Extension: -30 Degrees R Knee Flexion: 100 Degrees L Knee Extension: 15 Degrees L Knee Flexion: 105 Degrees LE Strength R Hip Flexion (L2): 4/5 R Hip ABduction: 4/5 R Hip ADduction: (4-4+/5) R Knee Extension (L3): 4/5 R Knee Flexion: 4+/5 R Ankle Dorsiflexion (L4): 4+/5 R Ankle Plantar Flexion: 4+/5 L Hip Flexion (L2): 4/5 L Hip ABduction: 4/5 L Hip ADduction: (4-4+/5) L Knee Extension (L3): 4/5 L Knee Flexion: 4+/5 L Ankle Dorsiflexion (L4): 4+/5 L Ankle Plantar Flexion: 4+/5 Mobility Sit To Stand: Contact Guard Assistance (Improved sit to stand transfer with patient completing the task, just requires additional time due to bilateral LE knee flexion contractures.) Stand To Sit: Stand By Assistance (Improved eccentric control with stand to sit transfer) Gait Gait: Contact Guard Assistance Gait Device: Wheeled Walker Gait Deviations: General Deviations General Deviations/Observations: Ataxic gait, Flexed trunk posture, Difficulty changing direction/turning, Non-functional gait speed, Shuffling Gait, Step length decreased, Narrow Base of Support TREATMENT: Therapeutic Exercise: 1: Seated LAQ 2 x 15 reps w/ 3 sec hold 2: Standing marches x 10 reps. each LE 3: Completed Progress Report for LE ROM and strength limitations. Assessment of transfer status. 5: Recumbent stepper manual L1 x 7 minutes with bilateral UE and bilateral LE use (DId not complete today as pt had an appointment to get to right after therapy session today.) Skilled Intervention: Skilled judgment was used in selection of appropriate interventions. Progress Report completed this date for LE ROM, LE strength testing, assessment of transfers. Neuromuscular Re-Education: 1: Forward weight shifting/stepping forward onto each LE in WW confines and with CGA/min A of therapist x 10 each LE 2: Lateral weight shifting/stepping sideways onto each LE in WW confines and with CGA/min A of therapist x 10 each LE 3: Backward weight shifting/stepping backward onto each LE in WW confines and with CGA/min A of therapist x 10 each LE Skilled Intervention: Skilled judgment used to assess appropriate program for balance and coordination activity. Billing Therapeutic Exercise Treatment Minutes: 25 Neuromuscular Re-Education Treatment Minutes: 15 Skilled Treatment Time Minutes (timed and untimed codes): 40 Total Session Time (minutes): 46 Session Start Time : 1423 Session Stop Time : 1509 Nathan Madrigal PT, MBA documented in this encounter [facility] 11-20-2023 Note HNO ID: [id number] Author: NATHAN MADRIGAL PT Service: ? Author Type: Physical Therapist Type: Progress Notes Filed: 11/20/2023 17:18 Note Text: Episode Visit Count: 14 Therapist That Will Accept/Oversee The Plan Of Care: Nathan Madrigal PT, MBA Start of Care Date: 10/03/23 Onset Date: (2011 and LE symptoms of stiffness and pain worsening in the last month) Plan of Care Certification Date: 10/30/23 Next Certification Due Date: 12/14/23 Patient Identified by Name and Date of : Yes REHABILITATION AND SPORTS THERAPY PHYSICAL THERAPY TREATMENT NOTE ASSESSMENT: Waldemar Hudson tolerated the session with fatigue. She demonstrated difficulty with initiating 4 anterior step ups and step throughs with each LE due to bilateral knee flexion contractures. 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 Step ups take her additional time, require CGA of therapist and gait belt in place and patient relies on UE support on the railings to complete The patient will continue to benefit from ongoing skilled physical therapy to progress toward set goals. PLAN FOR NEXT VISIT: May initiate standing weight shifting next as pt tolerates. SUBJECTIVE: Patient has no changes in reports today. She states that she usually is tired after her therapy and takes a nap for recovery. Pain: Pain Pain Level: (Patient did not rate her pain level today.) Pain Location: Knee - Right Post Treatment Pain Post Treatment Pain Level: No Change OBJECTIVE MEASURES WITH LEVEL OF FUNCTION: No objective measurements taken this date. TREATMENT: Therapeutic Exercise: 1: Seated LAQ 2 x 15 reps w/ 3 sec hold 2: Seated resisted adduction 2 x 15 reps w/ 3 sec hold 5: Recumbent stepper manual L1 x 7 minutes with bilateral UE and bilateral LE use (Increased time) Skilled Intervention: Skilled judgment was used in selection of appropriate interventions. Neuromuscular Re-Education: 1: Forward alternating toe taps x 2 minutes at 4 step at training steps 2: Forward step through with left foot on step 4 x 15 reps and step ups on right LE x 10 reps 3: Lateral step ups left LE only x 10 reps on 4 step 4: Seated leaning back into large green theraball and then sitting up and reaching forward x 10 reps, and then rotating to each side x 10 reps 5: Seated lateral stretching with arm on large green theraball 2 x 10 reps each UE (Increased repetitions) 6: Seated forward stretch w/ bilateral UE's on large theraball 2 x 10 reps (Increased repetitions) 7: Seated unsupported with passing small ball between hands x 10 reps in each direction from one hand to the opposite Skilled Intervention: Skilled judgment used to assess appropriate program for balance and coordination activity. Ensured patient safety with use of gait belt Gait Trainin: 20' x 1 with wheeled walker and CGA for safety Skilled Intervention: Patient was provided contact guard assistance during pre-gait/gait training to prevent falls and insure safety. Gait belt utilized during session for safety. Billing Therapeutic Exercise Treatment Minutes: 10 Neuromuscular Re-Education Treatment Minutes: 35 Gait Training Treatment Minutes: 5 Skilled Treatment Time Minutes (timed and untimed codes): 50 Total Session Time (minutes): 58 Session Start Time : 1545 Session Stop Time : 1643 Time spent on Recumbent Stepper not included in billed treatment time. Nathan Madrigal PT, MBA [facility] 11-20-2023 History of Present illness Narrative Episode Visit Count: 14 Therapist That Will Accept/Oversee The Plan Of Care: Nathan Madrigal PT, MBA Start of Care Date: 10/03/23 Onset Date: (2011 and R LE symptoms of stiffness and pain worsening in the last month) Plan of Care Certification Date: 10/30/23 Next Certification Due Date: 12/14/23 Patient Identified by Name and Date of : Yes REHABILITATION AND SPORTS THERAPY PHYSICAL THERAPY TREATMENT NOTE ASSESSMENT: Waldemar Hudson tolerated the session with fatigue. She demonstrated difficulty with initiating 4 anterior step ups and step throughs with each LE due to bilateral knee flexion contractures. 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 Step ups take her additional time, require CGA of therapist and gait belt in place and patient relies on UE support on the railings to complete The patient will continue to benefit from ongoing skilled physical therapy to progress toward set goals. PLAN FOR NEXT VISIT: May initiate standing weight shifting next as pt tolerates. SUBJECTIVE: Patient has no changes in reports today. She states that she usually is tired after her therapy and takes a nap for recovery. Pain: Pain Pain Level: (Patient did not rate her pain level today.) Pain Location: Knee - Right Post Treatment Pain Post Treatment Pain Level: No Change OBJECTIVE MEASURES WITH LEVEL OF FUNCTION: No objective measurements taken this date. TREATMENT: Therapeutic Exercise: 1: Seated LAQ 2 x 15 reps w/ 3 sec hold 2: Seated resisted adduction 2 x 15 reps w/ 3 sec hold 5: Recumbent stepper manual L1 x 7 minutes with bilateral UE and bilateral LE use (Increased time) Skilled Intervention: Skilled judgment was used in selection of appropriate interventions. Neuromuscular Re-Education: 1: Forward alternating toe taps x 2 minutes at 4 step at training steps 2: Forward step through with left foot on step 4 x 15 reps and step ups on right LE x 10 reps 3: Lateral step ups left LE only x 10 reps on 4 step 4: Seated leaning back into large green theraball and then sitting up and reaching forward x 10 reps, and then rotating to each side x 10 reps 5: Seated lateral stretching with arm on large green theraball 2 x 10 reps each UE (Increased repetitions) 6: Seated forward stretch w/ bilateral UE's on large theraball 2 x 10 reps (Increased repetitions) 7: Seated unsupported with passing small ball between hands x 10 reps in each direction from one hand to the opposite Skilled Intervention: Skilled judgment used to assess appropriate program for balance and coordination activity. Ensured patient safety with use of gait belt Gait Trainin: 20' x 1 with wheeled walker and CGA for safety Skilled Intervention: Patient was provided contact guard assistance during pre-gait/gait training to prevent falls and insure safety. Gait belt utilized during session for safety. Billing Therapeutic Exercise Treatment Minutes: 10 Neuromuscular Re-Education Treatment Minutes: 35 Gait Training Treatment Minutes: 5 Skilled Treatment Time Minutes (timed and untimed codes): 50 Total Session Time (minutes): 58 Session Start Time : 1545 Session Stop Time : 1643 Time spent on Recumbent Stepper not included in billed treatment time. Nathan Madrigal PT, MBA documented in this encounter [facility] 11-15-2023 Note HNO ID: [id number] Author: DAJA GOMEZ PTA Service: ? Author Type: [employer] Type: Progress Notes Filed: 11/15/2023 13:49 Note Text: Episode Visit Count: 13 Therapist That Will Accept/Oversee The Plan Of Care: Nathna Madrigal PT, MBA Start of Care Date: 10/03/23 Onset Date: (2011 and R LE symptoms of stiffness and pain worsening in the last month) Plan of Care Certification Date: 10/30/23 Next Certification Due Date: 12/14/23 Patient Identified by Name and Date of : Yes REHABILITATION AND SPORTS THERAPY PHYSICAL THERAPY TREATMENT NOTE ASSESSMENT: Waldemar Hudson tolerated the session with no issues. She demonstrated difficulty with right lateral step ups as she was unable to lift herself so only performed on the left LE. Patient with static standing at stairs prior to performance of exercises to stretch her LE's. The patient will continue to benefit from ongoing skilled physical therapy to progress toward set goals. PLAN FOR NEXT VISIT: Continue with standing exercises with progression to standing weight shifting activities as pt tolerates. SUBJECTIVE: Patient reported that she was really tired yesterday and did not sleep well last night so is fatigued today. Pain: Pain Pain Level: 3 Pain Location: Knee - Right Post Treatment Pain Post Treatment Pain Level: No Change OBJECTIVE MEASURES WITH LEVEL OF FUNCTION: No objective measures taken this date. TREATMENT: Therapeutic Exercise: 1: Seated LAQ 2 x 15 reps w/ 3 sec hold 2: Seated resisted adduction 2 x 15 reps w/ 3 sec hold Skilled Intervention: Skilled judgment was used in selection of appropriate interventions. Neuromuscular Re-Education: 1: Forward alternating toe taps x 2 minutes at 4 step at training steps 2: Forward step through with left foot on step 4 x 15 reps and step ups on right LE x 10 reps 3: Lateral step ups left LE only x 10 reps on 4 step 4: Seated leaning back into large green theraball and then sitting up and reaching forward x 10 reps, and then rotating to each side x 10 reps 5: Seated lateral stretching with arm on large green theraball x 10 reps each UE 6: Seated forward stretch w/ bilateral UE's on large theraball x 10 reps 7: Seated unsupported with passing small ball between hands x 10 reps in each direction from one hand to the opposite Skilled Intervention: CGA for balance activities for safety Gait Trainin: 75', 10' x 1 with wheeled walker and CGA for safety Skilled Intervention: Patient was provided contact guard assistance during pre-gait/gait training to prevent falls and insure safety. Billing Therapeutic Exercise Treatment Minutes: 10 Neuromuscular Re-Education Treatment Minutes: 30 Gait Training Treatment Minutes: 5 Skilled Treatment Time Minutes (timed and untimed codes): 45 Total Session Time (minutes): 55 Session Start Time : 1145 Session Stop Time : 1240 Time spent on recumbent stepper not included in billed treatment time. Daja Gomez [facility] 11-15-2023 History of Present illness Narrative Episode Visit Count: 13 Therapist That Will Accept/Oversee The Plan Of Care: Nathan Madrigal PT, ANABELLE Start of Care Date: 10/03/23 Onset Date: (2011 and R LE symptoms of stiffness and pain worsening in the last month) Plan of Care Certification Date: 10/30/23 Next Certification Due Date: 12/14/23 Patient Identified by Name and Date of : Yes REHABILITATION AND SPORTS THERAPY PHYSICAL THERAPY TREATMENT NOTE ASSESSMENT: Waldemar Hudson tolerated the session with no issues. She demonstrated difficulty with right lateral step ups as she was unable to lift herself so only performed on the left LE. Patient with static standing at stairs prior to performance of exercises to stretch her LE's. The patient will continue to benefit from ongoing skilled physical therapy to progress toward set goals. PLAN FOR NEXT VISIT: Continue with standing exercises with progression to standing weight shifting activities as pt tolerates. SUBJECTIVE: Patient reported that she was really tired yesterday and did not sleep well last night so is fatigued today. Pain: Pain Pain Level: 3 Pain Location: Knee - Right Post Treatment Pain Post Treatment Pain Level: No Change OBJECTIVE MEASURES WITH LEVEL OF FUNCTION: No objective measures taken this date. TREATMENT: Therapeutic Exercise: 1: Seated LAQ 2 x 15 reps w/ 3 sec hold 2: Seated resisted adduction 2 x 15 reps w/ 3 sec hold Skilled Intervention: Skilled judgment was used in selection of appropriate interventions. Neuromuscular Re-Education: 1: Forward alternating toe taps x 2 minutes at 4 step at training steps 2: Forward step through with left foot on step 4 x 15 reps and step ups on right LE x 10 reps 3: Lateral step ups left LE only x 10 reps on 4 step 4: Seated leaning back into large green theraball and then sitting up and reaching forward x 10 reps, and then rotating to each side x 10 reps 5: Seated lateral stretching with arm on large green theraball x 10 reps each UE 6: Seated forward stretch w/ bilateral UE's on large theraball x 10 reps 7: Seated unsupported with passing small ball between hands x 10 reps in each direction from one hand to the opposite Skilled Intervention: CGA for balance activities for safety Gait Trainin: 75', 10' x 1 with wheeled walker and CGA for safety Skilled Intervention: Patient was provided contact guard assistance during pre-gait/gait training to prevent falls and insure safety. Billing Therapeutic Exercise Treatment Minutes: 10 Neuromuscular Re-Education Treatment Minutes: 30 Gait Training Treatment Minutes: 5 Skilled Treatment Time Minutes (timed and untimed codes): 45 Total Session Time (minutes): 55 Session Start Time : 1145 Session Stop Time : 1240 Time spent on recumbent stepper not included in billed treatment time. Daja Gomez PTA documented in this encounter [facility] 11-13-2023 Note HNO ID: [id number] Author: DAJA GOMEZ PTA Service: ? Author Type: [employer] Type: Progress Notes Filed: 11/13/2023 16:05 Note Text: Episode Visit Count: 12 Therapist That Will Accept/Oversee The Plan Of Care: Nathan Madrigal PT, ANABELLE Start of Care Date: 10/03/23 Onset Date: (2011 and R LE symptoms of stiffness and pain worsening in the last month) Plan of Care Certification Date: 10/30/23 Next Certification Due Date: 12/14/23 Patient Identified by Name and Date of : Yes REHABILITATION AND SPORTS THERAPY PHYSICAL THERAPY TREATMENT NOTE ASSESSMENT: Waldemar Hudson tolerated the session with no issues. She demonstrated improvements in stepping over kettle roper this date with less rigidity noted although continues to be challenging for patient. Patient did stand for rest breaks between sets and does readjust her foot placement due to bilateral knee flexion contractures when in standing. The patient will continue to benefit from ongoing skilled physical therapy to progress toward set goals. PLAN FOR NEXT VISIT: Continue with standing exercises with progression to standing weight shifting activities as pt tolerates. SUBJECTIVE: Patient reported that she was fatigued after last session and her reported that she was a little slower when ascending the steps once they were home but was not bad. Pain: Pain Pain Level: 3 Pain Location: Knee - Right Post Treatment Pain Post Treatment Pain Level: No Change OBJECTIVE MEASURES WITH LEVEL OF FUNCTION: No objective measures taken this date. TREATMENT: Therapeutic Exercise: 3: Shuttle w/ wedge bilateral 37# 2 x 15 reps with right LE support blocked at 90 4: Shuttle w/ wedge unilateral 18# 2 x 15 reps w/ assist for right LE support blocked at 90 5: Recumbent stepper manual L1 x 6 minutes Skilled Intervention: Patient was educated in proper exercise technique and purpose for exercises. Skilled judgment was used in selection of appropriate interventions. Neuromuscular Re-Education: 1: Side step over 5# kettlebell x 15 reps each LE at side of // bars and CGA for safety (Increased reps) 2: Lateral step up on blue disc x 15 reps each LE at side of // bars with CGA for safety (Increased reps) 3: Forward alternate toe taps at side of // bars to 6 step on base of // bars 2 x 10 reps Skilled Intervention: Ensured patient safety with use of gait belt and CGA. Gait Trainin: 100', 5' x 2 with wheeled walker and CGA for safety Skilled Intervention: Patient was provided contact guard assistance during pre-gait/gait training to prevent falls and insure safety. Gait belt utilized during session for safety. Billing Therapeutic Exercise Treatment Minutes: 20 Neuromuscular Re-Education Treatment Minutes: 20 Gait Training Treatment Minutes: 5 Skilled Treatment Time Minutes (timed and untimed codes): 45 Total Session Time (minutes): 57 Session Start Time : 1315 Session Stop Time : 1412 Time spent on recumbent stepper not included in billed treatment time. Daja Gomez [facility] 11-13-2023 History of Present illness Narrative Episode Visit Count: 12 Therapist That Will Accept/Oversee The Plan Of Care: Nathan Madrigal PT, ANABELLE Start of Care Date: 10/03/23 Onset Date: (2011 and R LE symptoms of stiffness and pain worsening in the last month) Plan of Care Certification Date: 10/30/23 Next Certification Due Date: 12/14/23 Patient Identified by Name and Date of : Yes REHABILITATION AND SPORTS THERAPY PHYSICAL THERAPY TREATMENT NOTE ASSESSMENT: Waldemar Hudson tolerated the session with no issues. She demonstrated improvements in stepping over kettle roper this date with less rigidity noted although continues to be challenging for patient. Patient did stand for rest breaks between sets and does readjust her foot placement due to bilateral knee flexion contractures when in standing. The patient will continue to benefit from ongoing skilled physical therapy to progress toward set goals. PLAN FOR NEXT VISIT: Continue with standing exercises with progression to standing weight shifting activities as pt tolerates. SUBJECTIVE: Patient reported that she was fatigued after last session and her reported that she was a little slower when ascending the steps once they were home but was not bad. Pain: Pain Pain Level: 3 Pain Location: Knee - Right Post Treatment Pain Post Treatment Pain Level: No Change OBJECTIVE MEASURES WITH LEVEL OF FUNCTION: No objective measures taken this date. TREATMENT: Therapeutic Exercise: 3: Shuttle w/ wedge bilateral 37# 2 x 15 reps with right LE support blocked at 90 4: Shuttle w/ wedge unilateral 18# 2 x 15 reps w/ assist for right LE support blocked at 90 5: Recumbent stepper manual L1 x 6 minutes Skilled Intervention: Patient was educated in proper exercise technique and purpose for exercises. Skilled judgment was used in selection of appropriate interventions. Neuromuscular Re-Education: 1: Side step over 5# kettlebell x 15 reps each LE at side of // bars and CGA for safety (Increased reps) 2: Lateral step up on blue disc x 15 reps each LE at side of // bars with CGA for safety (Increased reps) 3: Forward alternate toe taps at side of // bars to 6 step on base of // bars 2 x 10 reps Skilled Intervention: Ensured patient safety with use of gait belt and CGA. Gait Trainin: 100', 5' x 2 with wheeled walker and CGA for safety Skilled Intervention: Patient was provided contact guard assistance during pre-gait/gait training to prevent falls and insure safety. Gait belt utilized during session for safety. Billing Therapeutic Exercise Treatment Minutes: 20 Neuromuscular Re-Education Treatment Minutes: 20 Gait Training Treatment Minutes: 5 Skilled Treatment Time Minutes (timed and untimed codes): 45 Total Session Time (minutes): 57 Session Start Time : 1315 Session Stop Time : 1412 Time spent on recumbent stepper not included in billed treatment time. Daja Gomez PTA documented in this encounter [facility] 11-12-2023 History of Present illness Narrative Images from the original note were not included. Waldemar Hudson a 67 year old female presents to the acupuncture clinic on 11/12/23 for an initial consultation. Patient identity confirmed by name and : Yes Chief Complaint: Primary lateral disease. SUBJECTIVE Patient presents here with her . She is in wheelchair. Has slurred speech. Notes fatigue and lack of balance since 2012. Has knees, shoulders, ankles and feet pain. It is intermittent sharp, stiff and burning pain. 4/10 pain at presentation today. Has weakness in hands limited my ability to do much physical activity. Has history of [place] disease, mold and thyroid cancer. Has hypothyroidism. Tried PT, dry needling, Chiro, massage, Meds with some benefits. The patient's history is well detailed in the EMR. Current view: Showing all answers [facility] Promis Cat V2.0-Physical Function-28 Days Question 11/08/2023 9:10 PM EDT - Filed by Patient 10/11/2023 12:35 PM EDT - Filed by Patient 09/13/2023 2:44 PM EDT - Filed by Patient PROMIS Physical Function T-Score (range: 10 - 90) 23 (severe dysfunction) 23 (severe dysfunction) 23 (severe dysfunction) PROMIS Physical Function Percentile (range: 0 - 100) 0 0 0 [facility] Mychart Additional Demo Question 11/09/2023 7:52 PM EDT - Filed by Patient Is this visit related to an accident, other than Workers' Compensation? No Is this visit related to Workers' Compensation? No Do you need an retanner? No [facility] Promis Cat V1.0 - Fatigue-28 Days Question 11/09/2023 7:53 PM EDT - Filed by Patient How often did you have to push yourself to get things done because of your fatigue? Always How run-down did you feel on average? Very much How fatigued were you on average? Very much What was the level of your fatigue on most days? Very severe How often did your fatigue make it difficult to make decisions? Sometimes PROMIS Fatigue T-Score (range: 10 - 90) 74 (severe) PROMIS Fatigue Percentile (range: 0 - 100) 1 [facility] Promis Cat V1.0-Anxiety 28 Days Question 11/09/2023 7:54 PM EDT - Filed by Patient I felt uneasy Never I felt tense Never I felt worried Sometimes I felt nervous Rarely I felt anxious Never PROMIS Anxiety T-Score (range: 10 - 90) 46 (within normal limits) PROMIS Anxiety Percentile (range: 0 - 100) 66 [facility] Neuro-Qol Cat V2.0 Cognitive Function-28 Days Question 11/09/2023 7:59 PM EDT - Filed by Patient In the past 7 days I reacted slowly to things that were said or done. Never In the past 7 days I had trouble keeping track of what I was doing if I was interrupted. Never In the past 7 days I had trouble concentrating. Never In the past 7 days I had to read something several times to understand it. Never In the past 7 days words I wanted to use seemed to be on the tip of my tongue. Sometimes (2-3 times) In the past 7 days I had difficulty doing more than one thing at a time. Never In the past 7 days I made simple mistakes more easily. Never In the past 7 days I had trouble thinking clearly. Rarely (once) Neuro-QoL - Cognitive Function T-Score (range: 10 - 90) 56 (within normal limits) Neuro-QoL Cognitive Function Percentile (range: 0 - 100) 73 [facility] Promis Cat V1.0-Satisfaction With Social Roles-28 Days Question 11/09/2023 8:00 PM EDT - Filed by Patient I am satisfied with my ability to perform my daily routines. Not at all I am satisfied with my ability to work (include work at home). Somewhat I am satisfied with my ability to do regular personal and household responsibilities. Somewhat I am satisfied with how much work I can do (include work at home). Somewhat PROMIS - Satisfaction with Participation in Social Roles T-Score (range: 10 - 90) 42 (Average) PROMIS Social Role Satisfaction Percentile (range: 0 - 100) 21 [facility] Promis Cat V1.1-Pain Interference-28 Days Question 11/09/2023 8:00 PM EDT - Filed by Patient 09/13/2023 2:45 PM EDT - Filed by Patient PROMIS Pain Interference T-Score (range: 10 - 90) (range: 10 - 90) 68 (moderate) 65 (moderate) PROMIS Pain Interference Percentile (range: 0 - 100) 4 7 [facility] Promis Cat V1.0-Sleep Disturbance-28 Days Question 11/09/2023 8:04 PM EDT - Filed by Patient I had trouble sleeping. Always My sleep quality was... Fair I had a problem with my sleep. Quite a bit I tried hard to get to sleep. A little bit I was satisfied with my sleep. A little bit PROMIS Sleep Disturbance T-Score (range: 10 - 90) 60 (mild) PROMIS Sleep Disturbance Percentile (range: 0 - 100) 16 [facility] Cilm Acupuncture Intake Form Question 11/10/2023 9:23 AM EDT - Filed by Patient Are you presently working? No Are you currently being treated with blood thinning medications? No Are you currently being treated with chemotherapy? No Please check all that apply: None apply Primary Reason for Treatment: PLS, Lyme disease and associated infections, mold Have you received a medical diagnosis? Yes If Yes, please explain: Primary Lateral Sclerosis, Lyme disease, anaplasmosis, hypothyroidism, thyroid cancer, mold colonization, C. diff colonization Have you had any medical imaging? Yes If Yes, please explain: MRI for brain, lower abdomen How long have you had these symptoms? Started in 2012 How do these conditions impair your daily activities? Fatigue, lack of balance, and knee pain, weakness in hands limit my ability to do much physical activity. Other treatments you have used: PT, antibiotics, chelation, antifungals, many supplements, amantadine, Nuedexta, synthroid, thyroidectomy, toxin binders, microdose THC+CBD What makes your symptoms better? They have been getting worse slowly the last 11 years What makes your symptoms worse? Hypothyroidism; fatigue worsens with physical activity Are you seeking treatment for pain? Yes PLEASE COMPLETE IF YOU ARE SEEKING TREATMENT FOR PAIN: Please describe your pain level (0 no pain at all to 10 being the worst pain): 4 Pain character: Moves from place to place Specify how frequently: Knee pain is constant when physically active; other joints randomly painful Pain quality: Sharp Stiff Burning Pain worse with: Pressure Movement Please be specific: Knee pain and stiffness lessens with movement; shoulder pain lessens with movement; ankle and foot pain comes and goes Pain better with: Movement Please be specific: See above How did the pain start? Gradually How often are you experiencing pain: Worse in morning Was pain caused by an injury? No Current and/or prior treatment for this pain: Physical Therapy Chiropractor Massage Dry Needling Are you taking any pain medication (prescriptions and over the counter): Yes If Yes, name and dosage: Microdosing THC/CBD Using the pictures below, indicate directly on the figures the area(s) where you are experiencing pain and numbness. Myc Document/Image Upload Question 11/10/2023 9:23 AM EDT - Filed by Patient Photo ID If there are images or documents you'd like to share with your provider during your visit, you may upload up to a total of five files. For body images use the pencil icon to label your image. When labeling the image, please use the following format: The name of the body part followed by the side. For example, Back of Right Forearm or Lower Left Leg. Myc Provider Understanding Current Health Wellness Question 11/10/2023 9:23 AM EDT - Filed by Patient These questions will help my provider understand my health Agree OBJECTIVE: Physical Exam: Tenderness: knees and feet Pain with palpation: na ROM: limited ROM Orthopedic Tests: na Tightness: knees Divina/Trigger points: na Visual Inspection Discoloration: na Edema: no Gait/Ambulation: normal Ovalle: good Qi/Patient vitality: normal Alert Well-Groomed Normal Imaging reports Images on file See EPIC Images have been reviewed no TCM Tongue: NA TCM Pulse: thin and weak ASSESSMENT Patient presents with signs and symptoms consistent with the diagnosis. Patient would benefit from acupuncture therapy to address listed deficiencies and return to PLOF. Pt was educated on symptoms, prognosis, plan of care and activity modifications. Pt verbalized understanding and agreed to begin care. TCM Pattern: PLS due to Qi and blood deficiency. TCM Treatment Principle: Calm Ovalle. Promote smooth flow of Qi and blood. Open channel. Reduce pain. PLAN OF CARE Counseled patient on risks of acupuncture treatment including pain, infection, bleeding, and no relief of pain. The patient was positioned comfortably. There was no evidence of infection at the site of needle insertions. Counseled patient on differences between Shared Acupuncture Medical Appointment and Private Visit follow-ups. Patient is a suitable candidate for Shared Acupuncture Medical Appointments (MICHELLE): No Recommended Treatment Schedule: 1 week/12 weeks Patient will then be re-evaluated for therapeutic effect. Clinical Objective: Therapeutic Short Term Goals: Reduce pain by 20% - 25% in 6 visits Improve ROM by 20% - 25% in 6 visits Improve ADLs Nursing Home Goals: Reduce pain by 30% - 35% in 12 visits Improve ROM by 30% - 35% in 12 visits Improve ADLs Informed Consent Capture: RBAPC and equipment discussed with patient and Informed Consent was gathered. Intake form located in patient file. Acupuncture Treatment: Treatment/Needle Set 1, Right Side: Points: GV20.24 SI3 Auricular: (L)[place]/KI/LV/Brain 15 minutes face to face with patient for set 1 Treatment/Needle Set 2, Right Side: Points: Divina points (L)LI11/TW5 (L)ST36,40/GB34,39 (L)BL40,57,60,62 15 minutes face to face with patient for set 2 Calcium were retained for 30 minutes # of needles inserted: 23 # of needles withdrawn: 23 Adjunct techniques used: TDP Infrared Heat Lamp- Applied to feet Patient tolerated the procedure well. UNIVERSAL PROTOCOL / SAFETY CHECKLIST Procedure to be Performed: Acupuncture Sign In: A Moment of CARE was completed. Personnel directly involved with the procedure wore the appropriate PPE (Personal Protective Equipment). Patient/Surrogate Stated/Verified: PATIENT VERIFIED(optional for EMERGENT procedures): Patient name, Date of , Relevant allergies and The intended procedure Time Out Communication: Intended patient and procedure match the source documents. Consent documented and matches the intended procedure. Sign Out: SIGN OUT (optional for EMERGENT procedures): All instruments, equipment, possible retained foreign bodies accounted for. Provider Name: [place] NEGRON 30 Total minutes face to face time spent with patient Acupuncture and [place] herbal therapy are not a substitute for conventional medical diagnosis and treatment. Patient agrees that either: 1. A diagnostic exam has been performed by a physician or chiropractor within the last six months regarding the condition for which they are seeking acupuncture treatment. or 2. If no diagnostic exam by a physician or chiropractor has been done within the last six months regarding the condition for which patient is seeking treatment, the Processing Analyst, per [place] Law, recommends that this diagnostic exam be performed. documented in this encounter [facility] 11-12-2023 Note HNO ID: [id number] Author: ?, ?, ? Service: ? Author Type: ? Type: Progress Notes Filed: 11/12/2023 14:17 Note Text: Waldemar Hudson a 67 year old female presents to the acupuncture clinic on 11/12/23 for an initial consultation. Patient identity confirmed by name and : Yes Chief Complaint: Primary lateral disease. SUBJECTIVE Patient presents here with her . She is in wheelchair. Has slurred speech. Notes fatigue and lack of balance since 2012. Has knees, shoulders, ankles and feet pain. It is intermittent sharp, stiff and burning pain. 4/10 pain at presentation today. Has weakness in hands limited my ability to do much physical activity. Has history of [place] disease, mold and thyroid cancer. Has hypothyroidism. Tried PT, dry needling, Chiro, massage, Meds with some benefits. The patient's history is well detailed in the EMR. Current view: Showing all answers [facility] Promis Cat V2.0-Physical Function-28 Days Question 11/08/2023 9:10 PM EDT - Filed by Patient 10/11/2023 12:35 PM EDT - Filed by Patient 09/13/2023 2:44 PM EDT - Filed by Patient PROMIS Physical Function T-Score (range: 10 - 90) 23 (severe dysfunction) 23 (severe dysfunction) 23 (severe dysfunction) PROMIS Physical Function Percentile (range: 0 - 100) 0 0 0 [facility] Mychart Additional Demo Question 11/09/2023 7:52 PM EDT - Filed by Patient Is this visit related to an accident, other than Workers' Compensation? No Is this visit related to Workers' Compensation? No Do you need an retanner? No [facility] Promis Cat V1.0 - Fatigue-28 Days Question 11/09/2023 7:53 PM EDT - Filed by Patient How often did you have to push yourself to get things done because of your fatigue? Always How run-down did you feel on average? Very much How fatigued were you on average? Very much What was the level of your fatigue on most days? Very severe How often did your fatigue make it difficult to make decisions? Sometimes PROMIS Fatigue T-Score (range: 10 - 90) 74 (severe) PROMIS Fatigue Percentile (range: 0 - 100) 1 [facility] Promis Cat V1.0-Anxiety 28 Days Question 11/09/2023 7:54 PM EDT - Filed by Patient I felt uneasy Never I felt tense Never I felt worried Sometimes I felt nervous Rarely I felt anxious Never PROMIS Anxiety T-Score (range: 10 - 90) 46 (within normal limits) PROMIS Anxiety Percentile (range: 0 - 100) 66 [facility] Neuro-Qol Cat V2.0 Cognitive Function-28 Days Question 11/09/2023 7:59 PM EDT - Filed by Patient In the past 7 days I reacted slowly to things that were said or done. Never In the past 7 days I had trouble keeping track of what I was doing if I was interrupted. Never In the past 7 days I had trouble concentrating. Never In the past 7 days I had to read something several times to understand it. Never In the past 7 days words I wanted to use seemed to be on the tip of my tongue. Sometimes (2-3 times) In the past 7 days I had difficulty doing more than one thing at a time. Never In the past 7 days I made simple mistakes more easily. Never In the past 7 days I had trouble thinking clearly. Rarely (once) Neuro-QoL - Cognitive Function T-Score (range: 10 - 90) 56 (within normal limits) Neuro-QoL Cognitive Function Percentile (range: 0 - 100) 73 [facility] Promis Cat V1.0-Satisfaction With Social Roles-28 Days Question 11/09/2023 8:00 PM EDT - Filed by Patient I am satisfied with my ability to perform my daily routines. Not at all I am satisfied with my ability to work (include work at home). Somewhat I am satisfied with my ability to do regular personal and household responsibilities. Somewhat I am satisfied with how much work I can do (include work at home). Somewhat PROMIS - Satisfaction with Participation in Social Roles T-Score (range: 10 - 90) 42 (Average) PROMIS Social Role Satisfaction Percentile (range: 0 - 100) 21 [facility] Promis Cat V1.1-Pain Interference-28 Days Question 11/09/2023 8:00 PM EDT - Filed by Patient 09/13/2023 2:45 PM EDT - Filed by Patient PROMIS Pain Interference T-Score (range: 10 - 90) (range: 10 - 90) 68 (moderate) 65 (moderate) PROMIS Pain Interference Percentile (range: 0 - 100) 4 7 [facility] Promis Cat V1.0-Sleep Disturbance-28 Days Question 11/09/2023 8:04 PM EDT - Filed by Patient I had trouble sleeping. Always My sleep quality was... Fair I had a problem with my sleep. Quite a bit I tried hard to get to sleep. A little bit I was satisfied with my sleep. A little bit PROMIS Sleep Disturbance T-Score (range: 10 - 90) 60 (mild) PROMIS Sleep Disturbance Percentile (range: 0 - 100) 16 [facility] Cilm Acupuncture Intake Form Question 11/10/2023 9:23 AM EDT - Filed by Patient Are you presently working? No Are you currently being treated with blood thinning medications? No Are you currently being treated with chemotherapy? No Please check all that apply: None apply Primary Reason for Treatment: PLS, Lyme disease and associated infections, mold Have you received a medical diagnosis? Y (more content not included)... [facility] 11-09-2023 Note HNO ID: [id number] Author: DAJA GOMEZ PTA Service: ? Author Type: Clarity Specialists Type: Progress Notes Filed: 11/09/2023 17:06 Note Text: Episode Visit Count: 11 Therapist That Will Accept/Oversee The Plan Of Care: Nathan Madrigal PT, ANABELLE Start of Care Date: 10/03/23 Onset Date: (2011 and LE symptoms of stiffness and pain worsening in the last month) Plan of Care Certification Date: 10/30/23 Next Certification Due Date: 12/14/23 Patient Identified by Name and Date of : Yes REHABILITATION AND SPORTS THERAPY PHYSICAL THERAPY TREATMENT NOTE ASSESSMENT: Waldemar Hudson tolerated the session with no issues. She demonstrated improvements in gait and transfers and ability to progress to use of shuttle for LE strengthening and recumbent stepper for reciprocal movement and fluid motion. The patient will continue to benefit from ongoing skilled physical therapy to progress toward set goals. PLAN FOR NEXT VISIT: Continue with standing exercises with progression to standing weight shifting activities as pt tolerates. SUBJECTIVE: Patient reported that her ribs are feeling better and not having as much pain. She also reported that she ambulated from her bed to the bathroom instead of being wheeled in the desk chair. Pain: Pain Pain Level: 3 Pain Location: Knee - Right Post Treatment Pain Post Treatment Pain Level: No Change OBJECTIVE MEASURES WITH LEVEL OF FUNCTION: TREATMENT: Therapeutic Exercise: 1: Standing marching 2 x 15 reps at // bars 2: Standing calf raises x 30 reps at side of // bars 3: Shuttle w/ wedge bilateral 31# 2 x 15 reps with right LE support blocked at 90 4: Shuttle w/ wedge unilateral 18# 2 x 15 reps w/ assist for right LE support blocked at 90 5: Recumbent stepper manual L1 x 5 minutes Skilled Intervention: Patient was educated in proper exercise technique and purpose for exercises. Skilled judgment was used in selection of appropriate interventions. Correct performance of therapeutic exercises was facilitated with verbal cuing. Neuromuscular Re-Education: 1: Side step over 5# kettlebell x 10 reps each LE at side of // bars and CGA for safety 2: Lateral step up on blue disc x 10 reps each LE at side of // bars with CGA for safety Skilled Intervention: Skilled judgment used to assess appropriate program for balance and coordination activity. Ensured patient safety with use of CGA and gait belt Gait Trainin: 100' with wheeled walker and CGA for safety Skilled Intervention: Patient was provided contact guard assistance during pre-gait/gait training to prevent falls and insure safety. Gait belt utilized during session for safety. Billing Therapeutic Exercise Treatment Minutes: 30 Neuromuscular Re-Education Treatment Minutes: 10 Gait Training Treatment Minutes: 5 Skilled Treatment Time Minutes (timed and untimed codes): 45 Total Session Time (minutes): 55 Session Start Time : 1315 Session Stop Time : 1410 Time spent on recumbent stepper not included in billed treatment time. Daja Gomez, [facility] 11-09-2023 History of Present illness Narrative Episode Visit Count: 11 Therapist That Will Accept/Oversee The Plan Of Care: Nathan Madrigal PT, ANABELLE Start of Care Date: 10/03/23 Onset Date: (2011 and R LE symptoms of stiffness and pain worsening in the last month) Plan of Care Certification Date: 10/30/23 Next Certification Due Date: 12/14/23 Patient Identified by Name and Date of : Yes REHABILITATION AND SPORTS THERAPY PHYSICAL THERAPY TREATMENT NOTE ASSESSMENT: Waldemar Hudson tolerated the session with no issues. She demonstrated improvements in gait and transfers and ability to progress to use of shuttle for LE strengthening and recumbent stepper for reciprocal movement and fluid motion. The patient will continue to benefit from ongoing skilled physical therapy to progress toward set goals. PLAN FOR NEXT VISIT: Continue with standing exercises with progression to standing weight shifting activities as pt tolerates. SUBJECTIVE: Patient reported that her ribs are feeling better and not having as much pain. She also reported that she ambulated from her bed to the bathroom instead of being wheeled in the desk chair. Pain: Pain Pain Level: 3 Pain Location: Knee - Right Post Treatment Pain Post Treatment Pain Level: No Change OBJECTIVE MEASURES WITH LEVEL OF FUNCTION: TREATMENT: Therapeutic Exercise: 1: Standing marching 2 x 15 reps at // bars 2: Standing calf raises x 30 reps at side of // bars 3: Shuttle w/ wedge bilateral 31# 2 x 15 reps with right LE support blocked at 90 4: Shuttle w/ wedge unilateral 18# 2 x 15 reps w/ assist for right LE support blocked at 90 5: Recumbent stepper manual L1 x 5 minutes Skilled Intervention: Patient was educated in proper exercise technique and purpose for exercises. Skilled judgment was used in selection of appropriate interventions. Correct performance of therapeutic exercises was facilitated with verbal cuing. Neuromuscular Re-Education: 1: Side step over 5# kettlebell x 10 reps each LE at side of // bars and CGA for safety 2: Lateral step up on blue disc x 10 reps each LE at side of // bars with CGA for safety Skilled Intervention: Skilled judgment used to assess appropriate program for balance and coordination activity. Ensured patient safety with use of CGA and gait belt Gait Trainin: 100' with wheeled walker and CGA for safety Skilled Intervention: Patient was provided contact guard assistance during pre-gait/gait training to prevent falls and insure safety. Gait belt utilized during session for safety. Billing Therapeutic Exercise Treatment Minutes: 30 Neuromuscular Re-Education Treatment Minutes: 10 Gait Training Treatment Minutes: 5 Skilled Treatment Time Minutes (timed and untimed codes): 45 Total Session Time (minutes): 55 Session Start Time : 1315 Session Stop Time : 1410 Time spent on recumbent stepper not included in billed treatment time. Daja Gomez PTA documented in this encounter [facility] 11-06-2023 Note HNO ID: [id number] Author: NATHAN MADRIGAL PT Service: ? Author Type: Physical Therapist Type: Progress Notes Filed: 11/06/2023 17:02 Note Text: Episode Visit Count: 10 Therapist That Will Accept/Oversee The Plan Of Care: Nathan Madrigal PT, ANABELLE Start of Care Date: 10/03/23 Onset Date: (2011 and R LE symptoms of stiffness and pain worsening in the last month) Plan of Care Certification Date: 10/30/23 Next Certification Due Date: 12/14/23 Patient Identified by Name and Date of : Yes REHABILITATION AND SPORTS THERAPY PHYSICAL THERAPY TREATMENT NOTE ASSESSMENT: Waldemar Hudson tolerated the session with no issues. She demonstrated tolerance to completing all standing exercises without seated rest break, but did stand for rest breaks between sets or for readjusting foot placement due to bilateral knee flexion contractures in standing. The patient will continue to benefit from ongoing skilled physical therapy to progress toward set goals. PLAN FOR NEXT VISIT: Continue with standing exercises with progression to standing weight shifting activities as pt tolerates. SUBJECTIVE: Patient notes that she is feeling a lot better from her fall, but does have some rib soreness with breathing in deeply. Pain: Pain Pain Level: 3 Pain Location: Knee - Right Description: Sore Post Treatment Pain Post Treatment Pain Level: No Change OBJECTIVE MEASURES WITH LEVEL OF FUNCTION: No objective measurements taken this date. TREATMENT: Therapeutic Exercise: 1: Standing marching 2 x 15 reps at // bars 2: Standing lateral steps 2 x 15 reps at // bars 3: Standing calf raises 2 x 15 reps at // bars 4: Standing alternate toe tap 2 x 10 reps at the side of the // bars 5: Standing hip flexion 2 x 15 reps at // bars 6: Seated resisted abduction 2 x 15 reps w/ pink band 7: Seated marching 2 x 15 reps w/ pink band 8: Seated resisted DF/PF 2 x 15 reps w/ pink band 9: Seated resisted adduction 2 x 15 reps Skilled Intervention: Skilled judgment was used in selection of appropriate interventions. Patient standing at the side of the parallel bars with gait belt on and with CGA of therapist. Billing Therapeutic Exercise Treatment Minutes: 50 Skilled Treatment Time Minutes (timed and untimed codes): 50 Total Session Time (minutes): 56 Session Start Time : 1554 Session Stop Time : 1650 Nathan Madrigal PT, MBA [facility] 11-02-2023 Note HNO ID: [id number] Author: DAJA GOMEZ PTA Service: ? Author Type: Clarity Specialists Type: Progress Notes Filed: 11/02/2023 14:25 Note Text: Episode Visit Count: 9 Therapist That Will Accept/Oversee The Plan Of Care: Nathan Madrigal PT, MBA Start of Care Date: 10/03/23 Onset Date: (2011 and R LE symptoms of stiffness and pain worsening in the last month) Plan of Care Certification Date: 10/30/23 Next Certification Due Date: 12/14/23 Patient Identified by Name and Date of : Yes REHABILITATION AND SPORTS THERAPY PHYSICAL THERAPY TREATMENT NOTE ASSESSMENT: Waldemar Hudson tolerated the session with no issues. She demonstrated improvements in performance with sit<->stand transfer pushing from the w/c to the // bars and leaning forward prior to sitting. Patient with knee flexion contractures with standing especially on the right LE. The patient will continue to benefit from ongoing skilled physical therapy to progress toward set goals. PLAN FOR NEXT VISIT: Progress standing exercises and seated exercises as tolerated SUBJECTIVE: Patient reported that she is still sore from her fall last week and reported that her knee and low back are still sore. Pain: Pain Pain Level: 3 Pain Location: Knee - Right Description: Sore Post Treatment Pain Post Treatment Pain Level: No Change OBJECTIVE MEASURES WITH LEVEL OF FUNCTION: No objective measures taken this date. TREATMENT: Therapeutic Exercise: 1: Standing marching 2 x 15 reps at // bars 2: Standing lateral steps 2 x 15 reps at // bars 3: Standing calf raises 2 x 15 reps at // bars 4: Standing alternate toe tap 2 x 10 reps at the side of the // bars 5: Standing hip flexion 2 x 15 reps at // bars 6: Seated resisted abduction 2 x 15 reps w/ pink band 7: Seated marching 2 x 15 reps w/ pink band 8: Seated resisted DF/PF 2 x 15 reps w/ pink band 9: Seated resisted adduction 2 x 15 reps Skilled Intervention: Patient was educated in proper exercise technique and purpose for exercises. Skilled judgment was used in selection of appropriate interventions. Billing Therapeutic Exercise Treatment Minutes: 50 Skilled Treatment Time Minutes (timed and untimed codes): 50 Total Session Time (minutes): 56 Session Start Time : 1315 Session Stop Time : 1411 Daja Gomez [facility] 11-02-2023 History of Present illness Narrative Episode Visit Count: 9 Therapist That Will Accept/Oversee The Plan Of Care: Nathan Madrigal PT, ANABELLE Start of Care Date: 10/03/23 Onset Date: (2011 and R LE symptoms of stiffness and pain worsening in the last month) Plan of Care Certification Date: 10/30/23 Next Certification Due Date: 12/14/23 Patient Identified by Name and Date of : Yes REHABILITATION AND SPORTS THERAPY PHYSICAL THERAPY TREATMENT NOTE ASSESSMENT: Waldemar Hudson tolerated the session with no issues. She demonstrated improvements in performance with sit<->stand transfer pushing from the w/c to the // bars and leaning forward prior to sitting. Patient with knee flexion contractures with standing especially on the right LE. The patient will continue to benefit from ongoing skilled physical therapy to progress toward set goals. PLAN FOR NEXT VISIT: Progress standing exercises and seated exercises as tolerated SUBJECTIVE: Patient reported that she is still sore from her fall last week and reported that her knee and low back are still sore. Pain: Pain Pain Level: 3 Pain Location: Knee - Right Description: Sore Post Treatment Pain Post Treatment Pain Level: No Change OBJECTIVE MEASURES WITH LEVEL OF FUNCTION: No objective measures taken this date. TREATMENT: Therapeutic Exercise: 1: Standing marching 2 x 15 reps at // bars 2: Standing lateral steps 2 x 15 reps at // bars 3: Standing calf raises 2 x 15 reps at // bars 4: Standing alternate toe tap 2 x 10 reps at the side of the // bars 5: Standing hip flexion 2 x 15 reps at // bars 6: Seated resisted abduction 2 x 15 reps w/ pink band 7: Seated marching 2 x 15 reps w/ pink band 8: Seated resisted DF/PF 2 x 15 reps w/ pink band 9: Seated resisted adduction 2 x 15 reps Skilled Intervention: Patient was educated in proper exercise technique and purpose for exercises. Skilled judgment was used in selection of appropriate interventions. Billing Therapeutic Exercise Treatment Minutes: 50 Skilled Treatment Time Minutes (timed and untimed codes): 50 Total Session Time (minutes): 56 Session Start Time : 1315 Session Stop Time : 1411 Daja Gomez PTA documented in this encounter [facility] 10-30-2023 Note HNO ID: [id number] Author: NATHAN MADRIGAL PT Service: ? Author Type: Physical Therapist Type: Progress Notes Filed: 10/30/2023 17:58 Note Text: Episode Visit Count: 8 Therapist That Will Accept/Oversee The Plan Of Care: Nathan Madrigal PT, ANABELLE Start of Care Date: 10/03/23 Onset Date: (2011 and R LE symptoms of stiffness and pain worsening in the last month) Plan of Care Certification Date: 10/30/23 Next Certification Due Date: 12/14/23 Patient Identified by Name and Date of : Yes REHABILITATION AND SPORTS THERAPY PHYSICAL THERAPY PROGRESS REPORT PLAN OF CARE UPDATE: Assessment: Waldemar Hudson demonstrates mild improvement in sit to stand transfers and car and bed transfers. She also noted that she is sleeping better since starting therapy and that she does get fatigued from her therapy regimen. She has progressed toward goals. Patient continues to present with impairments in ADL's, flexibility, gait, independence in exercise, joint mobility, overall function, posture, range of motion, strength, and symptom management that interfere with rising from a chair, walking in the house, stair negotiation, bending, sleeping, dressing, grooming, physical activities, Comments Patient feels that her sleeping and rising from a chair are a little better. She is able to complete car transfers without needing assist in getting the legs into the car. If she has momentum, she staes that she can lift her legs into the bed for bed mobility tasks.. Current prognosis is Fair due to: clinical presentation, chronic nature of impairments, limited tolerance to activity, Prognosis may be improved by good support system/ coping skills, positive past response to therapy. She will benefit from continued skilled therapy services to meet the updated goals for this plan of care as noted below. Goals for Episode of Care: created on 10/30/2023 through 12/14/2023 Patient will increase active ROM of bilateral knees to no greater than 10-15 degrees from achieving full knee extension to allow patient to improve postural alignment, to improve gait mechanics / gait pattern , and to decrease falls risks. (Ongoing) Patient will be able to correct postural deviations with minimal assist verbal cues in order to improve postural alignment of trunk during transfers, ambulation, and standing and to decrease current R LE pain. (Progressing) Decrease R hip/R knee pain to 1-4/10 at rest and with functional activities to allow patient to improve ambulation, transfers, and standing tolerance for ADLs. (Ongoing) Patient will ambulate 50-75 feet with rolling walker with stand by assist to allow patient to be able to ambulate to and from her bathroom at home with less difficulty. (Not yet addressed) Patient to be able to non-reciprocally negotiate stairs at home with bilateral rail use with assist of for safety as needed and be able to complete this task in 5 minutes as she did previously. (Not yet addressed) Patient Goals: To reduce my right knee pain Planned Interventions, Frequency, and Duration: 2x/week, 6 weeks Total Number of Visits Planned: 12 Patient to be seen for Therapeutic exercise (27084), Neuromuscular re-education (92261), Manual therapy (29526), Therapeutic activities (93657), Self-nursing home management (26997), Gait Training (07554), Patient/Family/Caregiver Education PLAN FOR NEXT VISIT: Progress standing exercises and seated exercises as tolerated SUBJECTIVE: Patient states that she has been really tired with starting therapy. Her feels that her thyroid medication being adjusted recently is having an effect on her tiredness. Patient continues to have R lateral knee pain that is sharp and sore in nature. She feels that her stair negotiation is still challenging as she is tired and still takes the same amount of time to complete. Patient's states that she had a slow motion fall just before therapy today and lost her balance when trying to lift her R leg off the ground. She was holding onto 1 railing and a vertical grab bar on the opposite side. She ended up hitting the handrail with her mid back region adn denies having any increased pain in this area as a result. Functional Limitations: rising from a chair, walking in the house, stair negotiation, bending, sleeping, dressing, grooming, physical activities, Comments Functional Limitation Comments: Patient feels that her sleeping and rising from a chair are a little better. She is able to complete car transfers without needing assist in getting the legs into the car. If she has momentum, she staes that she can lift her legs into the bed for bed mobility tasks. Pain: Pain Pain Level: (Patient did not rate her R knee pain level today.) Pain Location: Knee - Right (Lateral knee pain reported) Description: Sore, Sharp Post Treatment Pain Post Treatment Pain Level: No Change PROMIS Scales Hig (more content not included)... [facility] 10-30-2023 History of Present illness Narrative Episode Visit Count: 8 Therapist That Will Accept/Oversee The Plan Of Care: Nathan Madrigal PT, ANABELLE Start of Care Date: 10/03/23 Onset Date: (2011 and R LE symptoms of stiffness and pain worsening in the last month) Plan of Care Certification Date: 10/30/23 Next Certification Due Date: 12/14/23 Patient Identified by Name and Date of : Yes REHABILITATION AND SPORTS THERAPY PHYSICAL THERAPY PROGRESS REPORT PLAN OF CARE UPDATE: Assessment: Waldemar Hudson demonstrates mild improvement in sit to stand transfers and car and bed transfers. She also noted that she is sleeping better since starting therapy and that she does get fatigued from her therapy regimen. She has progressed toward goals. Patient continues to present with impairments in ADL's, flexibility, gait, independence in exercise, joint mobility, overall function, posture, range of motion, strength, and symptom management that interfere with rising from a chair, walking in the house, stair negotiation, bending, sleeping, dressing, grooming, physical activities, Comments Patient feels that her sleeping and rising from a chair are a little better. She is able to complete car transfers without needing assist in getting the legs into the car. If she has momentum, she staes that she can lift her legs into the bed for bed mobility tasks.. Current prognosis is Fair due to: clinical presentation, chronic nature of impairments, limited tolerance to activity, Prognosis may be improved by good support system/ coping skills, positive past response to therapy. She will benefit from continued skilled therapy services to meet the updated goals for this plan of care as noted below. Goals for Episode of Care: created on 10/30/2023 through 12/14/2023 Patient will increase active ROM of bilateral knees to no greater than 10-15 degrees from achieving full knee extension to allow patient to improve postural alignment, to improve gait mechanics / gait pattern , and to decrease falls risks. (Ongoing) Patient will be able to correct postural deviations with minimal assist verbal cues in order to improve postural alignment of trunk during transfers, ambulation, and standing and to decrease current R LE pain. (Progressing) Decrease R hip/R knee pain to 1-4/10 at rest and with functional activities to allow patient to improve ambulation, transfers, and standing tolerance for ADLs. (Ongoing) Patient will ambulate 50-75 feet with rolling walker with stand by assist to allow patient to be able to ambulate to and from her bathroom at home with less difficulty. (Not yet addressed) Patient to be able to non-reciprocally negotiate stairs at home with bilateral rail use with assist of for safety as needed and be able to complete this task in 5 minutes as she did previously. (Not yet addressed) Patient Goals: To reduce my right knee pain Planned Interventions, Frequency, and Duration: 2x/week, 6 weeks Total Number of Visits Planned: 12 Patient to be seen for Therapeutic exercise (08463), Neuromuscular re-education (86388), Manual therapy (06932), Therapeutic activities (98319), Self-nursing home management (05584), Gait Training (49021), Patient/Family/Caregiver Education PLAN FOR NEXT VISIT: Progress standing exercises and seated exercises as tolerated SUBJECTIVE: Patient states that she has been really tired with starting therapy. Her feels that her thyroid medication being adjusted recently is having an effect on her tiredness. Patient continues to have R lateral knee pain that is sharp and sore in nature. She feels that her stair negotiation is still challenging as she is tired and still takes the same amount of time to complete. Patient's states that she had a slow motion fall just before therapy today and lost her balance when trying to lift her R leg off the ground. She was holding onto 1 railing and a vertical grab bar on the opposite side. She ended up hitting the handrail with her mid back region adn denies having any increased pain in this area as a result. Functional Limitations: rising from a chair, walking in the house, stair negotiation, bending, sleeping, dressing, grooming, physical activities, Comments Functional Limitation Comments: Patient feels that her sleeping and rising from a chair are a little better. She is able to complete car transfers without needing assist in getting the legs into the car. If she has momentum, she staes that she can lift her legs into the bed for bed mobility tasks. Pain: Pain Pain Level: (Patient did not rate her R knee pain level today.) Pain Location: Knee - Right (Lateral knee pain reported) Description: Sore, Sharp Post Treatment Pain Post Treatment Pain Level: No Change PROMIS Scales Higher is Better 10/29/2023 10/11/2023 10/01/2023 Phys Func - Score - 23 (severe dysfunction) - Phys Func - Percentile - 0% - Self-Eff Symptom - Score 32 (Low) - 33 (Low) Self-Eff Symptom - Percentile 4% - 4% T-scores: mean of general population = 50. 5 points is clinically meaningfully difference Percentiles provide an indication of how the patient's score ranks in relation to the general population. Higher percentile rankings indicate better function/quality of life. 50th percentile is the average of the general population and indicates half of respondents had a worse score. OBJECTIVE MEASURES WITH LEVEL OF FUNCTION: Posture / Alignment Posture: Forward head, Rounded shoulders, Comments Posture comment: Trunk/hips/knees flexed, bilateral hip flexor and bilateral knee flexor tightness/contractures due to hypertonia. LE AROM R Hip Extension: (Patient has 20 degrees bilateral hip flexion contractures and is unable to achieve neutral hip positioning.) R Hip Flexion: (95-100 degrees) R Knee Extension: -50 Degrees (Degrees from full extension) R Knee Flexion: 100 Degrees R Ankle Dorsiflexion: 5 Degrees R Ankle Plantar Flexion: 30 Degrees L Hip Extension: (Patient has 20 degrees bilateral hip flexion contractures and is unable to achieve neutral hip positioning.) L Hip Flexion: (95-100 degrees) L Hip ABduction : 10 Degrees L Knee Extension: -20 Degrees (Degrees from full extension) L Knee Flexion: 105 Degrees L Ankle Dorsiflexion: 10 Degrees L Ankle Plantar Flexion: 40 Degrees LE Strength R Hip Flexion (L2): (4-4+/5) R Hip ABduction: (4-4+/5) R Hip ADduction: (4-4+/5) R Knee Extension (L3): (4-4+/5. Limited ROM available and pt notes continued feeling of R knee wanting to buckle on her.) R Knee Flexion: (4+-5/5) R Ankle Dorsiflexion (L4): 4+/5 R Ankle Plantar Flexion: (4-4+/5) L Hip Flexion (L2): (4-4+/5) L Hip ABduction: (4-4+/5) L Hip ADduction: (4-4+/5) L Knee Extension (L3): (4-4+/5) L Knee Flexion: (4+-5/5) L Ankle Plantar Flexion: 4+/5 Tone Tone: Hypertonic Hypertonic Comments: L LE hypertionia, R LE hypertonia and noted the R LE going into flexor synergy pattern with increased R ankle DF, inversion TREATMENT: Therapeutic Exercise: 5: Supine bent leg lifts 2 x 10 reps alternately with orange band 6: Supine bridging bilateral 2 x 10 reps 8: Seated resisted knee extension 2 x 10 reps w/ orange band 9: Seated resisted knee flexion 2 x 10 reps w/ pink band 10: Seated latera/posterior angle trunk stretch over salmon theraball x 10 reps each direction with CGA for safety with balance 11: Seated reaching large salmon theraball to therapist in front of her x 10 reps w/ CGA for safety of spouse beind patient 12: Seated reaching small green medicine ball x 10 reps, pass behind her back and then hand off with oppposite UE x 10 reps each direction (Did not complete today) 13: Seated lowering self onto forearm onto plinth and then reaching with opposite UE for green medicine ball x 4 reps each UE (Did not complete today) Skilled Intervention: Skilled judgment was used in selection of appropriate interventions. Correct performance of therapeutic exercises was facilitated with verbal cuing. Completed Progress Report for bilateral LE ROM, bilateral LE strength testing. Manual Therapy: 1: PROM to each LE for hips, knees in all planes and motions x 10 reps each. PROM trunk rotation x 10 reps each direction Skilled Intervention: Manual skills to improve joint mobility, ROM, and decrease pain. Utilized anatomy knowledge of the therapist, and assessment of patient's response to intervention. Neuromuscular Re-Education: 1: Sit<->stand from plinth x 2 reps w/ patient pushing from table with therapist in front of patient and patient reaching for therapist's shoulders 2: Standing weight shifting forward/backward x 10 reps (Did not complete today) 3: Standing ambulating to pivot from plinth to w/c with patient using therapist's shoulders and CGA (Did not complete today) 4: Seated posterior lean onto large theraball and then using core muscles to sit back up x 10 reps Skilled Intervention: Skilled judgment used to assess appropriate program for balance and coordination activity. Billing Therapeutic Exercise Treatment Minutes: 33 Manual TherapyTreatment Minutes: 15 Neuromuscular Re-Education Treatment Minutes: 7 Skilled Treatment Time Minutes (timed and untimed codes): 55 Total Session Time (minutes): 55 Session Start Time : 1330 Session Stop Time : 1425 Nathan Madrigal PT, MBA documented in this encounter [facility] 10-26-2023 Note HNO ID: [id number] Author: DAJA GOMEZ PTA Service: ? Author Type: [employer] Type: Progress Notes Filed: 10/26/2023 16:51 Note Text: Episode Visit Count: 7 Therapist That Will Accept/Oversee The Plan Of Care: Nathan Madrigal PT, MBA Start of Care Date: 10/03/23 Onset Date: (2011 and R LE symptoms of stiffness and pain worsening in the last month) Plan of Care Certification Date: 10/03/23 Next Certification Due Date: 11/30/23 Patient Identified by Name and Date of : Yes REHABILITATION AND SPORTS THERAPY PHYSICAL THERAPY TREATMENT NOTE ASSESSMENT: Waldemar Simran Hudson tolerated the session with no issues. She demonstrated improvements in performance of standing and seated activities with core and UE strengthening. Cues for patient to lean forward with sit<->stand transfer for ease with transfer and slower descent. The patient will continue to benefit from ongoing skilled physical therapy to progress toward set goals. PLAN FOR NEXT VISIT: Educate patient and family on transfers and progress HEP as appropriate. Progress standing exercises and seated exercises as tolerated SUBJECTIVE: Patient reported that she is fatigued but this is pretty typical for her. Pain: Pain Pain Level: 3 Pain Location: Knee - Right Description: Sore, Sharp Post Treatment Pain Post Treatment Pain Level: Better OBJECTIVE MEASURES WITH LEVEL OF FUNCTION: No objective measures taken this date. TREATMENT: Therapeutic Exercise: 5: Supine bent leg lifts 2 x 10 reps alternately with orange band 6: Supine bridging bilateral 2 x 10 reps 8: Seated resisted knee extension 2 x 10 reps w/ orange band 9: Seated resisted knee flexion 2 x 10 reps w/ pink band (Increased reps and band) 10: Seated latera/posterior angle trunk stretch over salmon theraball x 10 reps each direction with CGA for safety with balance 11: Seated reaching large salmon theraball to therapist in front of her x 10 reps w/ CGA for safety of spouse beind patient 12: Seated reaching small green medicine ball x 10 reps, pass behind her back and then hand off with oppposite UE x 10 reps each direction 13: Seated lowering self onto forearm onto plinth and then reaching with opposite UE for green medicine ball x 4 reps each UE Skilled Intervention: Patient was educated in proper exercise technique and purpose for exercises. Skilled judgment was used in selection of appropriate interventions. Manual Therapy: 1: PROM to each LE for hips, knees in all planes and motions x 10 reps each. PROM trunk rotation x 10 reps each direction Skilled Intervention: Manual skills to improve joint mobility, ROM, and decrease pain. Utilized anatomy knowledge of the therapist, and assessment of patient's response to intervention. Neuromuscular Re-Education: 1: Sit<->stand from plinth x 2 reps w/ patient pushing from table with therapist in front of patient and patient reaching for therapist's shoulders 2: Standing weight shifting forward/backward x 10 reps 3: Standing ambulating to pivot from plinth to w/c with patient using therapist's shoulders and CGA 4: Seated posterior lean onto large theraball and then using core muscles to sit back up x 10 reps Skilled Intervention: Skilled judgment used to assess appropriate program for balance and coordination activity. Education and demonstration for posture and positioning for tone management. Ensured patient safety with use of CGA Billing Therapeutic Exercise Treatment Minutes: 25 Manual TherapyTreatment Minutes: 15 Neuromuscular Re-Education Treatment Minutes: 7 Skilled Treatment Time Minutes (timed and untimed codes): 47 Total Session Time (minutes): 61 Session Start Time : 1524 Session Stop Time : 1625 Daja Gomez ALYSSA [facility] 10-26-2023 History of Present illness Narrative Episode Visit Count: 7 Therapist That Will Accept/Oversee The Plan Of Care: Nathan Madrigal PT, ANABELLE Start of Care Date: 10/03/23 Onset Date: (2011 and R LE symptoms of stiffness and pain worsening in the last month) Plan of Care Certification Date: 10/03/23 Next Certification Due Date: 11/30/23 Patient Identified by Name and Date of : Yes REHABILITATION AND SPORTS THERAPY PHYSICAL THERAPY TREATMENT NOTE ASSESSMENT: Waldemar Hudson tolerated the session with no issues. She demonstrated improvements in performance of standing and seated activities with core and UE strengthening. Cues for patient to lean forward with sit<->stand transfer for ease with transfer and slower descent. The patient will continue to benefit from ongoing skilled physical therapy to progress toward set goals. PLAN FOR NEXT VISIT: Educate patient and family on transfers and progress HEP as appropriate. Progress standing exercises and seated exercises as tolerated SUBJECTIVE: Patient reported that she is fatigued but this is pretty typical for her. Pain: Pain Pain Level: 3 Pain Location: Knee - Right Description: Sore, Sharp Post Treatment Pain Post Treatment Pain Level: Better OBJECTIVE MEASURES WITH LEVEL OF FUNCTION: No objective measures taken this date. TREATMENT: Therapeutic Exercise: 5: Supine bent leg lifts 2 x 10 reps alternately with orange band 6: Supine bridging bilateral 2 x 10 reps 8: Seated resisted knee extension 2 x 10 reps w/ orange band 9: Seated resisted knee flexion 2 x 10 reps w/ pink band (Increased reps and band) 10: Seated latera/posterior angle trunk stretch over salmon theraball x 10 reps each direction with CGA for safety with balance 11: Seated reaching large salmon theraball to therapist in front of her x 10 reps w/ CGA for safety of spouse beind patient 12: Seated reaching small green medicine ball x 10 reps, pass behind her back and then hand off with oppposite UE x 10 reps each direction 13: Seated lowering self onto forearm onto plinth and then reaching with opposite UE for green medicine ball x 4 reps each UE Skilled Intervention: Patient was educated in proper exercise technique and purpose for exercises. Skilled judgment was used in selection of appropriate interventions. Manual Therapy: 1: PROM to each LE for hips, knees in all planes and motions x 10 reps each. PROM trunk rotation x 10 reps each direction Skilled Intervention: Manual skills to improve joint mobility, ROM, and decrease pain. Utilized anatomy knowledge of the therapist, and assessment of patient's response to intervention. Neuromuscular Re-Education: 1: Sit<->stand from plinth x 2 reps w/ patient pushing from table with therapist in front of patient and patient reaching for therapist's shoulders 2: Standing weight shifting forward/backward x 10 reps 3: Standing ambulating to pivot from plinth to w/c with patient using therapist's shoulders and CGA 4: Seated posterior lean onto large theraball and then using core muscles to sit back up x 10 reps Skilled Intervention: Skilled judgment used to assess appropriate program for balance and coordination activity. Education and demonstration for posture and positioning for tone management. Ensured patient safety with use of CGA Billing Therapeutic Exercise Treatment Minutes: 25 Manual TherapyTreatment Minutes: 15 Neuromuscular Re-Education Treatment Minutes: 7 Skilled Treatment Time Minutes (timed and untimed codes): 47 Total Session Time (minutes): 61 Session Start Time : 1524 Session Stop Time : 1625 Daja Gomez PTA documented in this encounter [facility] 10-23-2023 Note HNO ID: [id number] Author: DAJA GOMEZ PTA Service: ? Author Type: [employer] Type: Progress Notes Filed: 10/23/2023 15:21 Note Text: Episode Visit Count: 6 Therapist That Will Accept/Oversee The Plan Of Care: Nathan Madrigal PT, ANABELLE Start of Care Date: 10/03/23 Onset Date: (2011 and R LE symptoms of stiffness and pain worsening in the last month) Plan of Care Certification Date: 10/03/23 Next Certification Due Date: 11/30/23 Patient Identified by Name and Date of : Yes REHABILITATION AND SPORTS THERAPY PHYSICAL THERAPY TREATMENT NOTE ASSESSMENT: Waldemar Hudson tolerated the session with decreased symptoms. She demonstrated improvements in sit<->stand transfer with pushing up from plinth. Patient also tolerated addition of core activities with salmon ball. Patient less rigid than previous session. The patient will continue to benefit from ongoing skilled physical therapy to progress toward set goals. PLAN FOR NEXT VISIT: Educate patient and family on transfers and progress HEP as appropriate. Progress seated activities with theraball as tolerated. SUBJECTIVE: Patient reported that she got some blood work back and her thyroid levels are off so her meds have been adjusted. Pain: Pain Pain Level: 3 Pain Location: Knee - Right Post Treatment Pain Post Treatment Pain Level: Better OBJECTIVE MEASURES WITH LEVEL OF FUNCTION: No objective measures taken this date. TREATMENT: Therapeutic Exercise: 2: Supine AROM abduction 2 x 10 reps each LE with assist for right LE 3: Supine heel slides 2 x 10 reps w/ assist for right LE 4: Supine SAQ 2 x 10 reps w/ assist with each LE 5: Supine bent leg lifts 2 x 10 reps alternately with orange band 9: Seated resisted knee flexion x 10 reps w/ orange band 10: Seated latera/posterior anglel trunk stretch over salmon theraball x 10 reps each direction with CGA for safety with balance 11: Seated reaching large salmon theraball to in front of her x 5 reps w/ CGA for safety 12: Seated reaching salmon ball above her head to therapist standing behind her x 5 reps 13: Seated reaching ball in multiple directions in front of her x 10 reps Skilled Intervention: Skilled judgment was used in selection of appropriate interventions. Manual Therapy: 1: PROM to each LE for hips, knees in all planes and motions x 10 reps each. PROM trunk rotation x 10 reps each direction Skilled Intervention: Manual skills to improve joint mobility, ROM, and decrease pain. Utilized anatomy knowledge of the therapist, and assessment of patient's response to intervention. Neuromuscular Re-Education: 1: Sit<->stand from plinth x 2 reps w/ patient pushing from table with therapist in front of patient and patient reaching for therapist's shoulders 2: Standing weight shifting side<->side, forward backward x 10 reps each direction 3: Standing ambulating to pivot from plinth to w/c with patient using therapist's shoulders and CGA Skilled Intervention: Skilled judgment used to assess appropriate program for balance and coordination activity. Billing Therapeutic Exercise Treatment Minutes: 30 Manual TherapyTreatment Minutes: 15 Neuromuscular Re-Education Treatment Minutes: 5 Skilled Treatment Time Minutes (timed and untimed codes): 50 Total Session Time (minutes): 50 Session Start Time : 1315 Session Stop Time : 1405 Daja Gomez ALYSSA [facility] 10-23-2023 History of Present illness Narrative Episode Visit Count: 6 Therapist That Will Accept/Oversee The Plan Of Care: Nathan Madrigal PT, ANABELLE Start of Care Date: 10/03/23 Onset Date: (2011 and R LE symptoms of stiffness and pain worsening in the last month) Plan of Care Certification Date: 10/03/23 Next Certification Due Date: 11/30/23 Patient Identified by Name and Date of : Yes REHABILITATION AND SPORTS THERAPY PHYSICAL THERAPY TREATMENT NOTE ASSESSMENT: Waldemar Hudson tolerated the session with decreased symptoms. She demonstrated improvements in sit<->stand transfer with pushing up from plinth. Patient also tolerated addition of core activities with salmon ball. Patient less rigid than previous session. The patient will continue to benefit from ongoing skilled physical therapy to progress toward set goals. PLAN FOR NEXT VISIT: Educate patient and family on transfers and progress HEP as appropriate. Progress seated activities with theraball as tolerated. SUBJECTIVE: Patient reported that she got some blood work back and her thyroid levels are off so her meds have been adjusted. Pain: Pain Pain Level: 3 Pain Location: Knee - Right Post Treatment Pain Post Treatment Pain Level: Better OBJECTIVE MEASURES WITH LEVEL OF FUNCTION: No objective measures taken this date. TREATMENT: Therapeutic Exercise: 2: Supine AROM abduction 2 x 10 reps each LE with assist for right LE 3: Supine heel slides 2 x 10 reps w/ assist for right LE 4: Supine SAQ 2 x 10 reps w/ assist with each LE 5: Supine bent leg lifts 2 x 10 reps alternately with orange band 9: Seated resisted knee flexion x 10 reps w/ orange band 10: Seated latera/posterior anglel trunk stretch over salmon theraball x 10 reps each direction with CGA for safety with balance 11: Seated reaching large salmon theraball to in front of her x 5 reps w/ CGA for safety 12: Seated reaching salmon ball above her head to therapist standing behind her x 5 reps 13: Seated reaching ball in multiple directions in front of her x 10 reps Skilled Intervention: Skilled judgment was used in selection of appropriate interventions. Manual Therapy: 1: PROM to each LE for hips, knees in all planes and motions x 10 reps each. PROM trunk rotation x 10 reps each direction Skilled Intervention: Manual skills to improve joint mobility, ROM, and decrease pain. Utilized anatomy knowledge of the therapist, and assessment of patient's response to intervention. Neuromuscular Re-Education: 1: Sit<->stand from plinth x 2 reps w/ patient pushing from table with therapist in front of patient and patient reaching for therapist's shoulders 2: Standing weight shifting side<->side, forward backward x 10 reps each direction 3: Standing ambulating to pivot from plinth to w/c with patient using therapist's shoulders and CGA Skilled Intervention: Skilled judgment used to assess appropriate program for balance and coordination activity. Billing Therapeutic Exercise Treatment Minutes: 30 Manual TherapyTreatment Minutes: 15 Neuromuscular Re-Education Treatment Minutes: 5 Skilled Treatment Time Minutes (timed and untimed codes): 50 Total Session Time (minutes): 50 Session Start Time : 1315 Session Stop Time : 1405 Daja Gomez PTA documented in this encounter [facility] 10-16-2023 Note HNO ID: [id number] Author: DAJA GOMEZ PTA Service: ? Author Type: [employer] Type: Progress Notes Filed: 10/16/2023 16:52 Note Text: Episode Visit Count: 5 Therapist That Will Accept/Oversee The Plan Of Care: Nathan Madrigal PT, ANABELLE Start of Care Date: 10/03/23 Onset Date: (2011 and R LE symptoms of stiffness and pain worsening in the last month) Plan of Care Certification Date: 10/03/23 Next Certification Due Date: 11/30/23 Patient Identified by Name and Date of : Yes REHABILITATION AND SPORTS THERAPY PHYSICAL THERAPY TREATMENT NOTE ASSESSMENT: Waldemar Hudson tolerated the session with decreased symptoms. She demonstrated increased active motion with bilateral LE's in all planes although demonstrates continued restriction with bilateral knees. Added forward flexion with lifting large theraball to her in front of her with CGA for safetyThe patient will continue to benefit from ongoing skilled physical therapy to progress toward set goals. PLAN FOR NEXT VISIT: Educate patient and family on transfers and progress HEP as appropriate. Progress seated activities with theraball as tolerated. SUBJECTIVE: Patient reported that she had a busy weekend and was exhausted so she was not able to perform her exercises Sunday or Sunday but has been doing them other than this. Pain: Pain Pain Level: 4 Pain Location: Knee - Right Post Treatment Pain Post Treatment Pain Level: Better OBJECTIVE MEASURES WITH LEVEL OF FUNCTION: TREATMENT: Therapeutic Exercise: 1: Supine AROM IR/ER with LE's over bolster x 10 reps 2: Supine AROM abduction 2 x 10 reps each LE with assist for right LE (Increased reps) 3: Supine heel slides 2 x 10 reps w/ assist for right LE (Increased reps) 4: Supine SAQ 2 x 10 reps w/ assist with each LE (Increased reps) 5: Supine bent leg lifts 2 x 10 reps alternately (Increased reps) 6: Supine resisted DF/PF 2 x 10 reps each direction, each LE with orange band 7: Supine bridging bilateral 2 x 10 reps 8: Seated LAQ x 10 reps each LE 9: Seated resisted knee flexion x 10 reps w/ orange band 10: Seated latera/posterior anglel trunk stretch over salmon theraball x 10 reps each direction with CGA for safety with balance 11: Seated reaching large salmon theraball to in front of her x 5 reps w/ CGA for safety Skilled Intervention: Skilled judgment was used in selection of appropriate interventions. Manual Therapy: 1: PROM to each LE for hips, knees in all planes and motions x 10 reps each. PROM trunk rotation x 10 reps each direction Skilled Intervention: Manual skills to improve joint mobility, ROM, and decrease pain. Utilized anatomy knowledge of the therapist, and assessment of patient's response to intervention. Billing Therapeutic Exercise Treatment Minutes: 35 Manual TherapyTreatment Minutes: 20 Skilled Treatment Time Minutes (timed and untimed codes): 55 Total Session Time (minutes): 59 Session Start Time : 153 Session Stop Time : 163 Daja Gomez PTA [facility] 10-16-2023 History of Present illness Narrative Episode Visit Count: 5 Therapist That Will Accept/Oversee The Plan Of Care: Nathan Madrigal PT, ANABELLE Start of Care Date: 10/03/23 Onset Date: (2011 and R LE symptoms of stiffness and pain worsening in the last month) Plan of Care Certification Date: 10/03/23 Next Certification Due Date: 11/30/23 Patient Identified by Name and Date of : Yes REHABILITATION AND SPORTS THERAPY PHYSICAL THERAPY TREATMENT NOTE ASSESSMENT: Waldemar Hudson tolerated the session with decreased symptoms. She demonstrated increased active motion with bilateral LE's in all planes although demonstrates continued restriction with bilateral knees. Added forward flexion with lifting large theraball to her in front of her with CGA for safetyThe patient will continue to benefit from ongoing skilled physical therapy to progress toward set goals. PLAN FOR NEXT VISIT: Educate patient and family on transfers and progress HEP as appropriate. Progress seated activities with theraball as tolerated. SUBJECTIVE: Patient reported that she had a busy weekend and was exhausted so she was not able to perform her exercises Sunday or Sunday but has been doing them other than this. Pain: Pain Pain Level: 4 Pain Location: Knee - Right Post Treatment Pain Post Treatment Pain Level: Better OBJECTIVE MEASURES WITH LEVEL OF FUNCTION: TREATMENT: Therapeutic Exercise: 1: Supine AROM IR/ER with LE's over bolster x 10 reps 2: Supine AROM abduction 2 x 10 reps each LE with assist for right LE (Increased reps) 3: Supine heel slides 2 x 10 reps w/ assist for right LE (Increased reps) 4: Supine SAQ 2 x 10 reps w/ assist with each LE (Increased reps) 5: Supine bent leg lifts 2 x 10 reps alternately (Increased reps) 6: Supine resisted DF/PF 2 x 10 reps each direction, each LE with orange band 7: Supine bridging bilateral 2 x 10 reps 8: Seated LAQ x 10 reps each LE 9: Seated resisted knee flexion x 10 reps w/ orange band 10: Seated latera/posterior anglel trunk stretch over salmon theraball x 10 reps each direction with CGA for safety with balance 11: Seated reaching large salmon theraball to in front of her x 5 reps w/ CGA for safety Skilled Intervention: Skilled judgment was used in selection of appropriate interventions. Manual Therapy: 1: PROM to each LE for hips, knees in all planes and motions x 10 reps each. PROM trunk rotation x 10 reps each direction Skilled Intervention: Manual skills to improve joint mobility, ROM, and decrease pain. Utilized anatomy knowledge of the therapist, and assessment of patient's response to intervention. Billing Therapeutic Exercise Treatment Minutes: 35 Manual TherapyTreatment Minutes: 20 Skilled Treatment Time Minutes (timed and untimed codes): 55 Total Session Time (minutes): 59 Session Start Time : 1532 Session Stop Time : 1631 Daja Gomez PTA documented in this encounter [facility] 10-12-2023 History of Present illness Narrative Program_ID:[id number] Access Code: [email or web address] URL: [email or web address] Date: 10-12-2023 Prepared By: DAJA GOMEZ Program Notes Exercises - Seated Isometric Hip Adduction with Ball - 1 x daily - 7 x weekly - 2 sets - 10 reps - Seated Hip Abduction with Resistance - 1 x daily - 7 x weekly - 2 sets - 10 reps - Seated March with Resistance - 1 x daily - 7 x weekly - 2 sets - 10 reps Episode Visit Count: 4 Therapist That Will Accept/Oversee The Plan Of Care: Nathan Madrigal PT, ANABELLE Start of Care Date: 10/03/23 Onset Date: (2011 and R LE symptoms of stiffness and pain worsening in the last month) Plan of Care Certification Date: 10/03/23 Next Certification Due Date: 11/30/23 Patient Identified by Name and Date of : Yes REHABILITATION AND SPORTS THERAPY PHYSICAL THERAPY TREATMENT NOTE ASSESSMENT: Waldemar Hudson tolerated the session with fatigue. She demonstrated continued restriction especially with bilateral hamstring tightness although improved abduction bilaterally this date and trunk rotation noted with passive stretching. Patient tolerated progression of exercises again this date and instructed to perform HEP as tolerated at home. The patient will continue to benefit from ongoing skilled physical therapy to progress toward set goals. PLAN FOR NEXT VISIT: Educate patient and family on transfers and progress HEP as appropriate. Progress seated activities with theraball as tolerated. SUBJECTIVE: Patient reported that she has been performing her HEP but twice daily made her too tired. Her reported that she has been performing the steps a little quicker and with less assistance. Pain: Pain Pain Level: 3 Pain Location: Knee - Right Post Treatment Pain Post Treatment Pain Level: No Change OBJECTIVE MEASURES WITH LEVEL OF FUNCTION: No objective measures taken this date. TREATMENT: Therapeutic Exercise: 1: Supine AROM IR/ER with LE's over bolster x 10 reps 2: Supine AROM abduction x 10 reps each LE with assist for right LE 3: Supine heel slides x 10 reps w/ assist for right LE 4: Supine SAQ x 10 reps w/ assist with each LE 5: Supine bent leg lifts x 10 reps alternately 6: Supine resisted DF/PF x 10 reps each direction, each LE with orange band 7: *Seated resisted adduction x 10 reps 8: *Seated resisted abduction x 10 reps w/ orange band 9: *Seated resisted marching x 10 reps w/ orange band 10: Seated heel slides x 10 reps each LE 11: Seated lateral trunk stretch over salmon theraball x 10 reps each direction with CGA for safety with balance 12: Seated LAQ x 10 reps each LE Skilled Intervention: Patient was educated in proper exercise technique and purpose for exercises. Reviewed and educated patient on additions/changes for home exercise program as above (*). Skilled judgment was used in selection of appropriate interventions. Home Exercise Program Assigned: 1: Access Code: [email or web address] URL: [email or web address] Date: 10/12/2023 Prepared by: DAJA GOMEZ Exercises - Seated Isometric Hip Adduction with Ball - 1 x daily - 7 x weekly - 2 sets - 10 reps - Seated Hip Abduction with Resistance - 1 x daily - 7 x weekly - 2 sets - 10 reps - Seated March with Resistance - 1 x daily - 7 x weekly - 2 sets - 10 reps Billing Therapeutic Exercise Treatment Minutes: 25 Manual TherapyTreatment Minutes: 20 Skilled Treatment Time Minutes (timed and untimed codes): 45 Total Session Time (minutes): 49 Session Start Time : 1445 Session Stop Time : 1534 Daja Gomez PTA documented in this encounter [facility] 10-12-2023 Note HNO ID: [id number] Author: DAJA GOMEZ PTA Service: ? Author Type: [employer] Type: Progress Notes Filed: 10/12/2023 16:44 Note Text: Episode Visit Count: 4 Therapist That Will Accept/Oversee The Plan Of Care: Nathan Madrigal PT, ANABELLE Start of Care Date: 10/03/23 Onset Date: (2011 and R LE symptoms of stiffness and pain worsening in the last month) Plan of Care Certification Date: 10/03/23 Next Certification Due Date: 11/30/23 Patient Identified by Name and Date of : Yes REHABILITATION AND SPORTS THERAPY PHYSICAL THERAPY TREATMENT NOTE ASSESSMENT: Waldemar Hudson tolerated the session with fatigue. She demonstrated continued restriction especially with bilateral hamstring tightness although improved abduction bilaterally this date and trunk rotation noted with passive stretching. Patient tolerated progression of exercises again this date and instructed to perform HEP as tolerated at home. The patient will continue to benefit from ongoing skilled physical therapy to progress toward set goals. PLAN FOR NEXT VISIT: Educate patient and family on transfers and progress HEP as appropriate. Progress seated activities with theraball as tolerated. SUBJECTIVE: Patient reported that she has been performing her HEP but twice daily made her too tired. Her reported that she has been performing the steps a little quicker and with less assistance. Pain: Pain Pain Level: 3 Pain Location: Knee - Right Post Treatment Pain Post Treatment Pain Level: No Change OBJECTIVE MEASURES WITH LEVEL OF FUNCTION: No objective measures taken this date. TREATMENT: Therapeutic Exercise: 1: Supine AROM IR/ER with LE's over bolster x 10 reps 2: Supine AROM abduction x 10 reps each LE with assist for right LE 3: Supine heel slides x 10 reps w/ assist for right LE 4: Supine SAQ x 10 reps w/ assist with each LE 5: Supine bent leg lifts x 10 reps alternately 6: Supine resisted DF/PF x 10 reps each direction, each LE with orange band 7: *Seated resisted adduction x 10 reps 8: *Seated resisted abduction x 10 reps w/ orange band 9: *Seated resisted marching x 10 reps w/ orange band 10: Seated heel slides x 10 reps each LE 11: Seated lateral trunk stretch over salmon theraball x 10 reps each direction with CGA for safety with balance 12: Seated LAQ x 10 reps each LE Skilled Intervention: Patient was educated in proper exercise technique and purpose for exercises. Reviewed and educated patient on additions/changes for home exercise program as above (*). Skilled judgment was used in selection of appropriate interventions. Home Exercise Program Assigned: 1: Access Code: [email or web address] URL: [email or web address] Date: 10/12/2023 Prepared by: DAJA GOMEZ Exercises - Seated Isometric Hip Adduction with Ball - 1 x daily - 7 x weekly - 2 sets - 10 reps - Seated Hip Abduction with Resistance - 1 x daily - 7 x weekly - 2 sets - 10 reps - Seated March with Resistance - 1 x daily - 7 x weekly - 2 sets - 10 reps Billing Therapeutic Exercise Treatment Minutes: 25 Manual TherapyTreatment Minutes: 20 Skilled Treatment Time Minutes (timed and untimed codes): 45 Total Session Time (minutes): 49 Session Start Time : 1445 Session Stop Time : 1534 Daja Gomez PTA [facility] 10-09-2023 History of Present illness Narrative Program_ID:[id number] Access Code: [email or web address] URL: [email or web address] Date: 10-09-2023 Prepared By: DAJA GOMEZ Program Notes Exercises - Supine Heel Slide - 1 x daily - 7 x weekly - 2 sets - 10 reps - Supine Knee Extension Strengthening - 1 x daily - 7 x weekly - 2 sets - 10 reps - HIp Internal rotation stretch - 1 x daily - 7 x weekly - 2 sets - 10 reps - Seated Long Arc Quad - 1 x daily - 7 x weekly - 2 sets - 10 reps - Seated Knee Flexion Extension AROM - 1 x daily - 7 x weekly - 2 sets - 10 reps Episode Visit Count: 3 Therapist That Will Accept/Oversee The Plan Of Care: Nathan Madrigal PT, ANABELLE Start of Care Date: 10/03/23 Onset Date: (2011 and R LE symptoms of stiffness and pain worsening in the last month) Plan of Care Certification Date: 10/03/23 Next Certification Due Date: 11/30/23 Patient Identified by Name and Date of : Yes REHABILITATION AND SPORTS THERAPY PHYSICAL THERAPY TREATMENT NOTE ASSESSMENT: Waldemar Hudson tolerated the session with no issues. She demonstrated improved ROM from last session and ability to perform seated LAQ and HS which were both provided for HEP. Patient tolerated increased ROM with abduction bilaterally. Slight bilateral knee flexion contractions noted limited full ROM. The patient will continue to benefit from ongoing skilled physical therapy to progress toward set goals. PLAN FOR NEXT VISIT: Educate patient and family on transfers and progress HEP as appropriate. SUBJECTIVE: Patient reported that she was a little sore after her last session. She reported that her right knee has a sharp pain with walking and she has some quad burning bilateral with walking and standing. She also stated that her right knee pain woke her in the middle of the night. Her reported that she is requiring slightly less time on the steps since beginning therapy. Pain: Pain Pain Level: 4 Pain Location: Knee - Right Description: Sharp Frequency: Walking, Stairs OBJECTIVE MEASURES WITH LEVEL OF FUNCTION: No objective measures taken this date. TREATMENT: Therapeutic Exercise: 1: *Supine AROM IR/ER with LE's over bolster x 10 reps 2: Supine AROM abduction x 10 reps each LE with assist for right LE 3: *Supine heel slides x 10 reps w/ assist for right LE 4: *Supine SAQ x 10 reps w/ assist with each LE 5: *Seated heel slides x 10 reps each LE 6: *Seated LAQ x 10 reps each LE Skilled Intervention: Patient was educated in proper exercise technique and purpose for exercises. Reviewed and educated patient on additions/changes for home exercise program as above (*). Skilled judgment was used in selection of appropriate interventions. Manual Therapy: 1: PROM to each LE for hips, knees in all planes and motions x 10 reps each. PROM trunk rotation x 10 reps each direction Skilled Intervention: Manual skills to improve joint mobility, ROM, and decrease pain. Utilized anatomy knowledge of the therapist, and assessment of patient's response to intervention. Home Exercise Program Assigned: 1: Access Code: [email or web address] URL: [email or web address] Date: 10/09/2023 Prepared by: DAJA GOMEZ Exercises - Supine Heel Slide - 1 x daily - 7 x weekly - 2 sets - 10 reps - Supine Knee Extension Strengthening - 1 x daily - 7 x weekly - 2 sets - 10 reps - HIp Internal rotation stretch - 1 x daily - 7 x weekly - 2 sets - 10 reps - Seated Long Arc Quad - 1 x daily - 7 x weekly - 2 sets - 10 reps - Seated Knee Flexion Extension AROM - 1 x daily - 7 x weekly - 2 sets - 10 reps Billing Therapeutic Exercise Treatment Minutes: 25 Manual TherapyTreatment Minutes: 25 Skilled Treatment Time Minutes (timed and untimed codes): 50 Total Session Time (minutes): 60 Session Start Time : 1535 Session Stop Time : 1635 Daja Gomez PTA documented in this encounter [facility] 10-09-2023 Note HNO ID: [id number] Author: DAJA GOMEZ PTA Service: ? Author Type: [employer] Type: Progress Notes Filed: 10/09/2023 16:58 Note Text: Episode Visit Count: 3 Therapist That Will Accept/Oversee The Plan Of Care: Nathan Madrigal PT, ANABELLE Start of Care Date: 10/03/23 Onset Date: (2011 and LE symptoms of stiffness and pain worsening in the last month) Plan of Care Certification Date: 10/03/23 Next Certification Due Date: 11/30/23 Patient Identified by Name and Date of : Yes REHABILITATION AND SPORTS THERAPY PHYSICAL THERAPY TREATMENT NOTE ASSESSMENT: Waldemar Hudson tolerated the session with no issues. She demonstrated improved ROM from last session and ability to perform seated LAQ and HS which were both provided for HEP. Patient tolerated increased ROM with abduction bilaterally. Slight bilateral knee flexion contractions noted limited full ROM. The patient will continue to benefit from ongoing skilled physical therapy to progress toward set goals. PLAN FOR NEXT VISIT: Educate patient and family on transfers and progress HEP as appropriate. SUBJECTIVE: Patient reported that she was a little sore after her last session. She reported that her right knee has a sharp pain with walking and she has some quad burning bilateral with walking and standing. She also stated that her right knee pain woke her in the middle of the night. Her reported that she is requiring slightly less time on the steps since beginning therapy. Pain: Pain Pain Level: 4 Pain Location: Knee - Right Description: Sharp Frequency: Walking, Stairs OBJECTIVE MEASURES WITH LEVEL OF FUNCTION: No objective measures taken this date. TREATMENT: Therapeutic Exercise: 1: *Supine AROM IR/ER with LE's over bolster x 10 reps 2: Supine AROM abduction x 10 reps each LE with assist for right LE 3: *Supine heel slides x 10 reps w/ assist for right LE 4: *Supine SAQ x 10 reps w/ assist with each LE 5: *Seated heel slides x 10 reps each LE 6: *Seated LAQ x 10 reps each LE Skilled Intervention: Patient was educated in proper exercise technique and purpose for exercises. Reviewed and educated patient on additions/changes for home exercise program as above (*). Skilled judgment was used in selection of appropriate interventions. Manual Therapy: 1: PROM to each LE for hips, knees in all planes and motions x 10 reps each. PROM trunk rotation x 10 reps each direction Skilled Intervention: Manual skills to improve joint mobility, ROM, and decrease pain. Utilized anatomy knowledge of the therapist, and assessment of patient's response to intervention. Home Exercise Program Assigned: 1: Access Code: [email or web address] URL: [email or web address] Date: 10/09/2023 Prepared by: DAJA GOMEZ Exercises - Supine Heel Slide - 1 x daily - 7 x weekly - 2 sets - 10 reps - Supine Knee Extension Strengthening - 1 x daily - 7 x weekly - 2 sets - 10 reps - HIp Internal rotation stretch - 1 x daily - 7 x weekly - 2 sets - 10 reps - Seated Long Arc Quad - 1 x daily - 7 x weekly - 2 sets - 10 reps - Seated Knee Flexion Extension AROM - 1 x daily - 7 x weekly - 2 sets - 10 reps Billing Therapeutic Exercise Treatment Minutes: 25 Manual TherapyTreatment Minutes: 25 Skilled Treatment Time Minutes (timed and untimed codes): 50 Total Session Time (minutes): 60 Session Start Time : 1535 Session Stop Time : 1635 Daja Gomez PTA [facility] 10-05-2023 Note HNO ID: [id number] Author: DAJA GOMEZ PTA Service: ? Author Type: [employer] Type: Progress Notes Filed: 10/05/2023 17:00 Note Text: Episode Visit Count: 2 Therapist That Will Accept/Oversee The Plan Of Care: Nathan Madrigal PT, ANABELLE Start of Care Date: 10/03/23 Onset Date: (2011 and R LE symptoms of stiffness and pain worsening in the last month) Plan of Care Certification Date: 10/03/23 Next Certification Due Date: 11/30/23 Patient Identified by Name and Date of : Yes REHABILITATION AND SPORTS THERAPY PHYSICAL THERAPY TREATMENT NOTE ASSESSMENT: Waldemar Hudson tolerated the session with no issues. She demonstrated restrictions with all joints and pain in the right knee although she was able to tolerate activity this date on this side. Will see how patient tolerated initiation of exercises this date and will provide exercises to HEP next session. The patient will continue to benefit from ongoing skilled physical therapy to progress toward set goals. PLAN FOR NEXT VISIT: Initiate passive stretching for trunk, bilateral hip flexors, and bilateral hamstrings. Educate patient and family on transfers and initiate HEP. SUBJECTIVE: Patient reported that her right knee is bothering her and her left foot this date. She reported that her right knee is sharp and her left foot is stabbing and is intermittent, Pain: Pain Pain Level: 4 Pain Location: Knee - Right Description: Sharp Additional Pain Information : Location 2 Pain Level 2: 3 Pain Location 2: Foot - Left Description 2: Stabbing Post Treatment Pain Post Treatment Pain Level: No Change OBJECTIVE MEASURES WITH LEVEL OF FUNCTION: No objective measures taken this date. TREATMENT: Therapeutic Exercise: 1: Supine AROM IR/ER with LE's over bolster x 10 reps 2: Supine AROM abduction x 10 reps each LE with assist for right LE 3: Supine heel slides x 10 reps w/ assist for right LE 4: Supine SAQ x 10 reps w/ assist with each LE Skilled Intervention: Patient was educated in proper exercise technique and purpose for exercises. Skilled judgment was used in selection of appropriate interventions. Manual Therapy: 1: PROM to each LE for hips, knees in all planes and motions x 10 reps each Skilled Intervention: Manual skills to improve joint mobility, ROM, and decrease pain. Utilized anatomy knowledge of the therapist, and assessment of patient's response to intervention. Billing Therapeutic Exercise Treatment Minutes: 25 Manual TherapyTreatment Minutes: 25 Skilled Treatment Time Minutes (timed and untimed codes): 50 Total Session Time (minutes): 55 Session Start Time : 1535 Session Stop Time : 1630 Daja Gomez [facility] 10-05-2023 History of Present illness Narrative Episode Visit Count: 2 Therapist That Will Accept/Oversee The Plan Of Care: Nathan Madrigal PT, ANABELLE Start of Care Date: 10/03/23 Onset Date: (2011 and R LE symptoms of stiffness and pain worsening in the last month) Plan of Care Certification Date: 10/03/23 Next Certification Due Date: 11/30/23 Patient Identified by Name and Date of : Yes REHABILITATION AND SPORTS THERAPY PHYSICAL THERAPY TREATMENT NOTE ASSESSMENT: Waldemar Hudson tolerated the session with no issues. She demonstrated restrictions with all joints and pain in the right knee although she was able to tolerate activity this date on this side. Will see how patient tolerated initiation of exercises this date and will provide exercises to HEP next session. The patient will continue to benefit from ongoing skilled physical therapy to progress toward set goals. PLAN FOR NEXT VISIT: Initiate passive stretching for trunk, bilateral hip flexors, and bilateral hamstrings. Educate patient and family on transfers and initiate HEP. SUBJECTIVE: Patient reported that her right knee is bothering her and her left foot this date. She reported that her right knee is sharp and her left foot is stabbing and is intermittent, Pain: Pain Pain Level: 4 Pain Location: Knee - Right Description: Sharp Additional Pain Information : Location 2 Pain Level 2: 3 Pain Location 2: Foot - Left Description 2: Stabbing Post Treatment Pain Post Treatment Pain Level: No Change OBJECTIVE MEASURES WITH LEVEL OF FUNCTION: No objective measures taken this date. TREATMENT: Therapeutic Exercise: 1: Supine AROM IR/ER with LE's over bolster x 10 reps 2: Supine AROM abduction x 10 reps each LE with assist for right LE 3: Supine heel slides x 10 reps w/ assist for right LE 4: Supine SAQ x 10 reps w/ assist with each LE Skilled Intervention: Patient was educated in proper exercise technique and purpose for exercises. Skilled judgment was used in selection of appropriate interventions. Manual Therapy: 1: PROM to each LE for hips, knees in all planes and motions x 10 reps each Skilled Intervention: Manual skills to improve joint mobility, ROM, and decrease pain. Utilized anatomy knowledge of the therapist, and assessment of patient's response to intervention. Billing Therapeutic Exercise Treatment Minutes: 25 Manual TherapyTreatment Minutes: 25 Skilled Treatment Time Minutes (timed and untimed codes): 50 Total Session Time (minutes): 55 Session Start Time : 1535 Session Stop Time : 1630 Daja Gomez PTA documented in this encounter [facility] 10-03-2023 Note HNO ID: [id number] Author: NATHAN MADRIGAL PT Service: ? 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 He also helps with sit to stand transfers and with following her up the steps and occasionally having to place the R LE onto the step as pt leads with her L LE at all times.. She presents with impairments in ADL's, gait, independence in exercise, overall function, posture, range of motion, strength, symptom management, and tissue tenderness. PROMIS? (Patient-Reported Outcomes Measurement Information System) scores were reviewed and physical function domain and self efficacy domain identified as a rehabilitation concern. Prognosis for therapy is Fair due to: clinical presentation, chronic nature of impairments, limited tolerance to activity, Prognosis may be improved by good support system/ coping skills, positive past response to therapy. She will benefit from skilled therapy services to meet the goals established for this plan of care as noted below. Classification Classification of Walking Handicap Functional Walking Category: Limited household walker Goals for Episode of Care: created on 10/03/23 through 11/30/23 Patient will increase active ROM of bilateral knees to no greater than 10-15 degrees from achieving full knee extension to allow patient to improve postural alignment, to improve gait mechanics / gait pattern , and to decrease falls risks . Patient will be able to correct postural deviations with minimal assist verbal cues in order to improve postural alignment of trunk during transfers, ambulation, and standing and to decrease current R LE pain . Decrease R hip/R knee pain to 1-4/10 at rest and with functional activities to allow patient to improve ambulation, transfers, and standing tolerance for ADLs. Patient will ambulate 50-75 feet with rolling walker with stand by assist to allow patient to be able to ambulate to and from her bathroom at home with less difficulty. Patient to be able to non-reciprocally negotiate stairs at home with bilateral rail use with assist of for safety as needed and be able to complete this task in 5 minutes as she did previously. Patient Goals: To reduce my right knee pain Planned Interventions, Frequency, and Duration: Current Frequency: 2x/week Duration: 8 weeks Total Number of Visits Planned: 16 Planned Treatment Interventions: Therapeutic exercise (52213), Neuromuscular re-education (55050), Manual therapy (80073), Therapeutic activities (65822), Self-nursing home management (13295), Gait Training (98237), Patient/Family/Caregiver Education PLAN FOR NEXT VISIT: Initiate passive stretching for trunk, bilateral hip flexors, and bilateral hamstrings. Educate patient and family on transfers and initiate HEP. Patient demonstrates good understanding of plan of care and treatment. The above goals and plan of care were discussed and agreed upon by patient/family. SUBJECTIVE: Patient has a very slurred/garbled speech pattern and her provides most of her subjective information during today's evaluation with patient providing some verbal and non-verbal agreement to statements made. Patient initially had developed a high fever and foot drop with muscle spasms following a visit to [facility] in 2011. She also has had high levels of lead, mercury, and microtoxins as well as a couple bouts of C Diff per her . She arrived to therapy in a wheelchair and was pushed by her . Patient has noted increased R LE stiffness and cannot sleep well due to this pain. This had been bothering her before, but was worse within the last month in 2023. Her symptoms do come and go per pt. Patient has had a history of pool therapy in the past from November 2022 through the end of 2022, which helped her. She also has a Cubii that she was able to use until about 2 weeks ago. She will see a new physician in November 2023 as her current physician, (more content not included)... [facility] 08-13-2023 Miscellaneous Notes Patient's request for medication is as follows: Requested Prescriptions Pending Prescriptions Disp Refills nystatin (MYCOSTATIN, NILSTAT) 500,000 unit tab 180 tablet 1 Sig: Take 2 tablets by mouth three times a day with meals. Please approve the above prescription(s) to electronically send to pharmacy. Antonio Dalton Ma documented in this encounter [facility] 07-04-2023 Instructions Daniel Paez, - 07/04/2023 3:08 PM EDT Plan/Instructions/Resources: Thank you for completing the microbial organic acids test. The results from this test indicate that you have significant levels of molds and yeast(s) colonized. Take Nystatin for excess yeast colonization, 2 tabs with each of 3 meals daily. Use Itraconazole 0.5% spray to each nostril to manage fungal sinus colonization. K2 by monea, an oil, use one drop daily Ask Dr. Guadarrama for non-bisphosphonate injection for osteoporosis. Future Plans: Follow up: Please schedule a follow up visit with the following Caregivers: Provider: 8weeks LIFESTYLE PRESCRIPTION Functional Nutrition: Personalized Elimination Food Plan Gluten-free and Dairy-free Food Plan Sleep: Sleep goal for most adults is a minimum of 7-9 hours nightly. Exercise Prescription: Numerous studies confirm the benefits of regular moderate aerobic exercise (walking, swimming, elliptical machine, cycling, etc.) for 30 min 5 days per week (150 min goal). Stress Management: 1) Please look into this Heart Rate Variability BioFeedback Tool (www.heartmath.org). 2) A regular, daily meditation practice of at least 15-20 minutes will change your brain--as well as your genes! Behavioral Health Therapist: If I recommended counseling or individual therapy, please schedule an individual appointment with our Functional Medicine Behavioral Health Therapist , Rudi David, after your visit today. The Behavioral Health Therapist helps patients identify and understand feelings and behaviors, experience the process of making positive change, and gain healthy coping skills. 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 [phone]. Smart phone apps to begin a meditative practice: Headspace (free for first 10 days) Insight Meditation Timer- (Free)-Great all-around belle to use for guided meditations of many different types and lengths or just to use as a tool to time and track your meditation practice. This is my absolute favorite! Calm- (Free) Walking Meditations-($1.99)- Get your walk AND meditation done together. A good way to start out for individuals who feel they just can't sit still to begin a meditative practice. Medications/Supplements Recommended: Medication orders placed this encounter itraconazole 0.5 % (CPD) Si-2 sprays to each nostril twice daily Dispense: 30 mL Refill: 2 documented in this encounter [facility] 07-03-2023 History of Present illness Narrative Follow-up Virtual Visit I have communicated my name and active licensure. The patient s identity and physical location were verified at the time of this visit. Either the patient or their legal branch sales and service representative has been informed of the risks and benefits of -- and alternatives to -- treatment through a remote evaluation and consents to proceed with the evaluation remotely. Patient: Waldemar Hudson There is no height or weight on file to calculate BMI. RMR can't be calculated - Weight unrecorded in last 120 days. Waist measurement: No waist measurement recorded. BP: ALLERGIES Allergen Reactions Malarone [Atovaquon* Hives Thimersol [Thimeros* Makes eyes red- thimerosal in contacts Current Outpatient Medications on File Prior to Visit Medication Sig nystatin (MYCOSTATIN, NILSTAT) 500,000 unit tab Take 2 tablets by mouth three times a day with meals. ARMOUR THYROID 90 mg tab TAKE ONE TABLET BY MOUTH ONCE DAILY 20 MINUTES BEFORE BREAKFAST Fish Oil-[place]-3 Fatty Acids 300-1,000 mg cap Take by mouth. liothyronine (CYTOMEL) 5 mcg tablet Take 5 mcg by mouth. Meriva-SR (Monae) decrease inflammation/pain/gut healing Take 1-2 capsules two times daily No current facility-administered medications on file prior to visit. PAST MEDICAL HISTORY Diagnosis Date Arrhythmia irregular heart rate-several yrs ago-PVC's Esophageal reflux 05/24/2005 Lichen sclerosus PERS HX OF THYROID MALIGNANCY 05/24/2005 Snoring PAST SURGICAL HISTORY Procedure Laterality Date COLONOSCOPY FLX DX W/COLLJ SPEC WHEN PFRMD 2003 Colonoscopy COLONOSCOPY FLX DX W/COLLJ SPEC WHEN PFRMD 10/01/14 Colonoscopy EGD TRANSORAL BIOPSY SINGLE/MULTIPLE 03/09/06 Hiatal hernia/gastritis/esophagitis ESOPHAGOGASTRODUODENOSCOPY TRANSORAL DIAGNOSTIC 10/01/14 EGD LAPS SURG CHOLECYSTECTOMY W/CHOLANGIOGRAPHY 03/12/06 PAST SURGICAL HISTORY OF 03/12/2006 transvaginal sling REMOVAL SKN TAGS DIRECTOR CHECK FIBRQ TAGS ANY AREA UPW/15 03/18/11 Ablation skin tags/ shave bx x 2 S SLING BLADDER SALPINGO-OOPHORECTOMY COMPL/PRTL UNI/BI SPX 10/25/00 Salpingo-oophorectomy THYROIDECTOMY TOTAL/COMPLETE 07/19/01 For Cancer THYROIDECTOMY TOTAL/COMPLETE TOTAL ABDOMINAL HYSTERECT W/WO RMVL TUBE OVARY 10/25/00 Hysterectomy, FIDE for fibroids and abnormal menstruation Social History Tobacco Use Smoking status: Never Smokeless tobacco: Never Substance Use Topics Alcohol use: Yes Comment: Occaisional Drug use: No Functional Medicine Timeline PHQ-9 Score: 9 (07/12/2022 5:29 PM) (0-4) minimal depression (5-9) mild depression (10-14) moderate depression (15-19) moderately severe depression (20-27) severe depression PROMIS Global Health - (T-Scores - the mean of general population = 50. Five points is a clinically meaningful difference.) 11/12/2022 03/09/2023 07/02/2023 Physical T-Score 34.9 32.4 32.4 Mental T-Score 56 53.3 48.04 December 2018 Visit- Patient goals: See below Subjective: 1. Coughing 2. Port flush 3. TSH repeat - check today 4. Wants a hand specialist - ask PCP 5. Bad cold after going to [place] (saw grand son) - started sore throat, Gargle and swallow argetyn (1 tBLSP a few times a day), honey lemon tea (warm) 6. C. Difficile (tx [address] Livingston flagyl, vanco, dificid) Apr Visit- Patient goals: 1. Walking 2. Left hand use Subjective: C/o cough more of an issue - keeping her from speaking easily. Better when she was in [place]. Had illness and Dr. Livingston felt it [...] helped. December Visit- Patient goals: 1. Walking 2. 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 Medication orders placed this encounter [id number]-[id number]-[id number] (BMX 1:1:1) 1:1:1 liqd Sig: Take 5 mL by mouth three times daily. Dispense: 1 Bottle Refill: 0 Nystatin 50,000 Unit (atomized) nasal spray --> (Scottie Maynard will call you) Sig: dissolve 1 cap (57017 units)/spray: use 2 sprays in each nostril twice daily Dispense: 60 capsule Refill: 2 Additional Recommendations Today's plan - Cough - used PPI and it helped, GI revive didn't help 1 TBSP/d NEED to go up higher. BHRT (E/P) not started (mammo in a few weeks) - go ahead and start hormones. Start supplements one at a time, Start with angelica for mold + saccharomyces Argentyn for sore throat Repeat MARCoNS and c/w gliotoxin tx Carla Magana pHd appt Next visit - review MARCoNS started nystatin nasal spray? ?Beyond Balance Tox-ease add ?glutamine Future 23&me, BHRT Treatments: (binders-->argentyn nasal spray 1 spray BID-->BEGS (nasal biofilm) ---->antifungal nasal spray (nystatin, keto, or AMB)-->NAC(250-500mg oral QD or BID)-->oral antifungal(twufbamw125,000 u orally, 1-4x a day, diflucan 100mg once every OTHER week) --> oral biofilm cierra Jul 18, 2022 Subjective: In 2011, came back from [facility] with high fever and foot drop Muscle spasms in one leg, then the other. Eventually, left hand didn't have fine motor control (left-hand dominant) Speech has been recent, in past couple of years. Was speaking well until November 2018 Another colleague got a brain tumor usually found in peds. Didn't have any colds for a couple of years after that. Positive for Anaplasma Metals: All fillings out treated with IV chelation through Dr. Paredes, took about 3-4 months. Completed taht. Also Did 5 months of IV antibiotics with Dr. Livingston, used port. Had C diff during the IV treatment. Port was removed because antibiotics didn't seem to be helping. Dr. Livingston kept treating with herbs and plant supplements. Also had voriconazole treatments, because of high mycotoxin levels. She was also on amphotericin nasal and oral, still taking the oral. 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 Seemed to get C diff again, so added Flagyl. then Had C diff, Thinks she may have had C diff was treated with Then had food poisoning Asked for Rifampin, and felt better on this, too For a long time, had rash on forearm. In the middle of summer, February/March, had a cyst on her back that became inflaed, pus-filled. It was so inflamed it couldn't be extracted; cipro cleared this up. Rifampin was the most effective to clear her symjptoms. Currently symptoms: Muscle weakness, lack of balance, fatigue, emotionality, speech difficulty Left eye is blurry Intermittent nerve pain in her feet Muscle spasms, mostly in legs, Restless legs Joint pains in knees, gideon right Hip/shoulder pains which affect sleep Has had occipital nerve pain, in back of head. Skin rash, intermittent; rifampin was helpful for this. Rifampin helped BM's, less loose, and joint pains idd improve Since the Rifampin, has been constipated Taking raw psyllium husks in her smoothie. She did just do a cologuard Plan/Instructions/Resources: Let's repeat mycotoxin test: [facility] mycotoxin testing: Take liposomal glutathione by Pure Encapsulations 500mg twice daily for 3 days, then collect urine 30-60 minutes after second dose on third day. We'll add [facility]-tox to test for synthetic toxins as well. Microbial OAT test is urine test for current colonization of mold/bacteria. This can be added to the same urine Stool test through [employer]. Nutreval kit is first-morning blood and urine; [facility] Stiven Marte, neurologist, treats Lyme. November 13, 2022 Subjective: Waldemar has been doing pool therapy, with positive results. Is seeing Dr. Marte. He prescribed Nudexa, and Amantadine. The amantadine is supposed to give her more energy. She does 45-60 minutes on an exercise machine The whole family had a virus, everyone was tired. It was respiratory. Joints were really inflamed at the time. Is over that now, in the past couple of days. About a week ago her feet hurt, which made walking unstable. THC made the pain go away. Plan/Instructions/Resources: For mold toxins: Biopure chlorella, take 4 tabs with breakfast and dinner Leesa therbiotic detox, take this with lunch Glucomannan: NOW brand, open a capsule and put in glass of water. Start using Surendra-Med rinse, use twice daily if you can. Filtered water is fine. 1/4 teaspoon salt is fine. Every week, put 2 drops of Lugol's 2% in the bottle (Lugol's is on Omniata) For the Nutreval: MV, including B-complex, Pure encapsulations or Kane or Monae Continue your glutathione For oxidative stress, take eye formula. And start carnitine 500mg daily to help burn fats efficiently. For the GI stool resuit, taking the above therbiotic detox will help For yeast colonization, take nystatin, [facility] For nasal colonization of mold, use itraconazole spray (from [employer]) after your nasal rinse. Today's March 13, 2023 Subjective: Dr. Marte changed her amantadine from 2 a day to 3 a day. And increased the Nudexa from 2 to 3. He also recommended exercise with a recumbent bike, but doesn't have room for one. Does instead the Qubi for 30-45 minutes a night. That is really helping her kknees, and has incrreased her leg strength in her quads. Waldemar ran across and Argeinine alpha ketoglutarate, and LAUREN The KASSIE protocol, developed by a father for his daughter. This has improved her mitochondrial function. She had Lyme disease, but was misdiagnosed with ALS Falling down, neurological issues. Knee is better Has fallen twice because of the knee since the last visit. A couple of bruises. Has had rashes/patches on the inside of her knee that are raised, quarter-sized, maybe a little bigger. Doesn't itch, didn't fall on it, doesn't have pets, hasn't been travleling. Has been using a CBD/THC salve Is eating regular gluten occasionally. Daughter who lives with them has a bakery. Has been off alcohol for the past 5 years. Has been on nystatin Was on the itraconazole spray for 2 months. Intestinal dysbiosis: retest your *microbial OAT. If this is cleared, great. If not cleared, then will have to restart topical anti-fungals. If worse, then will start systemic antifungal. This is a first-morning urine Non-seasonal allergic rhinitis due to fungal spores Repeat *microbial OAT through [facility], this is a first-morning urine. Motor neuron disease: Continue your MV, omega-3's, magnesium, CoQ10, and it's fine to start the Maureen protocol. Consider seeing Dr. Kranthi Fowler for overall brain health. Will send referral. Use your soft chamber hyperbaric Referral for Dr. Javier Montoya; he is an replanting machine crew at the clinic that specializes in neurological conditions History of Lyme disease: Dr. Javier Montoya and Dr. Kranthi Fowler Have your daughter start to make something special for you that's gluten-free and sugar-free. Janusz with stevia and a bit of maple syrup, use rice/coconut/almond flours. Today's Jul 03, 2023 Subjective: [place] was dropped from 90 to 60mg 3 months ago, no bloodwork was done. Then switched to levothyroxine to avoid giving T3. Muscle weakness came on about a week ago, maybe two. Taking glucomannan and chlorella to absorb toxins. Now is just taking the capsules and a lot of water with it. Objective: There were no vitals taken for this visit. Bioelectrical Impedance Analysis Results by [employer] Recent Results from: 09/06/16 at 10:24 AM BMI: 26.85 kg/m General Test Result Range Phase Angle (PA) 9.2 Min: 5.8 Mean: 6.7 Max: 7.6 Above max by 1.6 Basal Metabolic Rate (BMR) 1675 Min: 1172 Mean: 1327 Max: 1482 Above max by 193 Fat & Fat Free Mass Test Result Range Fat (lbs) 56.8 Min: 39.6 Mean: 62.2 Max: 84.8 Lower than midpoint by 5.4 (38.1% of rng) Fat % 32 Min: 31.7 Mean: 38.3 Max: 44.9 Lower than midpoint by 6.3 (2.3% of rng) Fat Free Mass (FFM) lbs 120.7 Min: 81.5 Mean: 95.8 Max: 110.1 Above max by 10.6 Total Body Water Test Result Range TBW (lbs) 89.8 Min: 60.9 Mean: 71.7 Max: 82.5 Above max by 7.3 TBW % of FFM 74.4 Min: 73.2 Mean: 74.7 Max: 76.2 Lower than midpoint by .3 (40% of rng) Intracellular Water Test Result Range ICW (lbs) 47.3 Min: 33.1 Mean: 37.7 Max: 42.3 Above max by 5 ICW % of FFM 39.2 Min: 38 Mean: 39.5 Max: 41 Lower than midpoint by .3 (40% of rng) Extracellular Water Test Result Range ECW (lbs) 42.5 Min: 27.6 Mean: 34 Max: 40.4 Above max by 2.1 ECW % of FFM 35.2 Min: 33.5 Mean: 35.2 Max: 36.9 At the midpoint Physical Exam: General: A&Ox4, CURRENT Functional Medicine Assessment/ PLAN Assessment Assessment: J30.89, B49 Allergic fungal sinusitis (primary encounter diagnosis) Z22.1 Clostridioides difficile carrier K59.89 Intestinal dysbiosis (primary encounter diagnosis) J30.89 Non-seasonal allergic rhinitis due to fungal spores G12.20 Motor neuron disease (HCC) Z86.19 History of Lyme disease Story - bottle fed, ABX, mono, OCP expsoure to pesticides, mercury And bug bites in other countries, then stressor at work - started having motor neuron disease. Mold exposure in her work bldg Stress - full prof [employer], good repuation, Reprimanded for a good deed then had to keep working with the person who betrayed her - occurred prior to the Motor neuron disorder MSIDS Apr Trial of Progesterone, Estradiol (get mammogram) Trial of prilosec for 4 days, if helps cough and voice. If helps then use GI revive 2 TBLSP twice a day for 2 months. Will start angelica trial for mold exposure. Start BEGS and nystatin nasal spray ON NAD nasal spray - not helping much LDN helped after a month which resolved. Dec 2017 reviewed Oct 2017[facility] neuro Dr. Leanna ISAAC note Postmenopausal - Address w/ Dr. Livingston Cough - try Quercitin On AA powder from Scottie Maynard and NAD CIRS - was sick with angelica, On Argentyn Jul 2017 visit- reviewed [place] High dose GSH made her sick for a few months, felt badly on DMSA, worse with 2 saccharomyces C/w mold -gliotoxin gentle treatment Tx: Dr. Damon w/ EDTA IV Nutritional Assessment Nutreval Jun 2017 Most high need, high lipid peroxides/8OHDG Plan: Ultranutrient Digestive Function GERD improved w/diet (no sugar) Constipation - better off diflucan GI effects March 2017 - Dysbiosis Elevated fecal fat/LCF A, cluster O, phospholipids as per Very low short-chain fatty acids Commensal bacteria-18 of 23 elevated with high Lactobacillus and Escherichia coli, low bifidobacterium Additional bacteria Bacillus species 4+, Klebsiella pneumonia 4+ both sensitive to Bactrim Plan: Ox bile acids, Biotagen, Therbiotic Factor 4, Bactrim for 10 days with Saccharomyces B Inflammation/Immune Function 2000 Thyroid cancer Dry cough - since May 2016 (comes/goes) Itchy/dry skin jock itch persists - 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 Energy Production Motor neuron disorder - leg weakness Fatigue - better with B12 shots Foot/calf cramps Detoxification Function WOLFF Many amalgams 2017 KANATAK repeat compared to November 2016 after 13 IV EDTA-lead dropped from 27-->10.2, mercury increased from 14.36 --> 19.73 (patient felt good on EDTA and rash cleared) Tx: Dr. Damon w/ EDTA IV Waldemar's office was moldy, was there for 29 years. Hormonal Assessment Insomnia - hot flash 5am Hot flashes - black cohosh helps the intensity Hypothyroid dt cancer - brittle nails Postmenopausal - Structural Assessment OA knees Swollen ankles Plan and Lifestyle Prescription Plan/Instructions/Resources: Waldemar was seen today for established patient. Diagnoses and all orders for this visit: Allergic fungal sinusitis - itraconazole 0.5 % (CPD); 1-2 sprays to each nostril twice daily Clostridioides difficile carrier - C. DIFFICILE PCR Thank you for completing the microbial organic acids test. The results from this test indicate that you have significant levels of molds and yeast(s) colonized. Take Nystatin for excess yeast colonization, 2 tabs with each of 3 meals daily. Use Itraconazole 0.5% spray to each nostril to manage fungal sinus colonization. Vitamin K2 by monae, an oil, use one drop (1000mcg) daily to help place calcium in the bones. Ask Dr. Guadarrama if there is any non-bisphosphonate injection for osteoporosis. Future Plans: Follow up: Please schedule a follow up visit with the following Caregivers: Provider: 8weeks LIFESTYLE PRESCRIPTION Functional Nutrition: Personalized Elimination Food Plan Gluten-free and Dairy-free Food Plan Sleep: Sleep goal for most adults is a minimum of 7-9 hours nightly. Exercise Prescription: Numerous studies confirm the benefits of regular moderate aerobic exercise (walking, swimming, elliptical machine, cycling, etc.) for 30 min 5 days per week (150 min goal). Stress Management: 1) Please look into this Heart Rate Variability BioFeedback Tool (www.heartmath.org). 2) A regular, daily meditation practice of at least 15-20 minutes will change your brain--as well as your genes! Behavioral Health Therapist: If I recommended counseling or individual therapy, please schedule an individual appointment with our Functional Medicine Behavioral Health Therapist , Rudi David, after your visit today. The Behavioral Health Therapist helps patients identify and understand feelings and behaviors, experience the process of making positive change, and gain healthy coping skills. 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 [phone]. Smart phone apps to begin a meditative practice: Headspace (free for first 10 days) Insight Meditation Timer- (Free)-Great all-around belle to use for guided meditations of many different types and lengths or just to use as a tool to time and track your meditation practice. This is my absolute favorite! Calm- (Free) Walking Meditations-($1.99)- Get your walk AND meditation done together. A good way to start out for individuals who feel they just can't sit still to begin a meditative practice. Medications/Supplements Recommended: Medication orders placed this encounter itraconazole 0.5 % (CPD) Si-2 sprays to each nostril twice daily Dispense: 30 mL Refill: 2 I recommend the supplements from the [facility] [employer] Store at https://store.SuppreMol. om/ as we have thoroughly evaluated the research and use only highest quality supplements. During the next 6-8 weeks you'll be working on your diet plan discussed with our desk manager, allowing for gentle detoxification and decreasing inflammation - while we are gathering your lab results and combining those with your complete history to formulate a very personalized treatment plan. LAB results: Due to the complexity of the testing performed, we are not able to review labs via [employer] or over the phone, but please know, if any of your labs are critical we will contact you. Otherwise, we will review all your labs at your next visit. We will go over a lot of information during your follow up visit - so please be well-rested and you may want to bring someone with you, if possible. Also make sure to schedule with the desk manager (this will not happen automatically) as you did with your first visit so that she can review nutritional aspects of your treatment plan. By your 3rd visit, as things are improving, we will likely transition you to one of our very capable Certified Nurse Practitioners/Physician Assistants for further follow-up. Potential future labs: Any [facility] labs ordered take about 4 weeks to return. Do them as soon as possible so that we have the results before your next appointment. You can access them on the [employer] [facility] website and it can be beneficial if you review them prior to your next visit. www.[employer].net. Read about NutrEval if this was ordered. Time spend with patient: I spent 30 minutes in preparation for the visit, reviewing labs with the patient, charting the SOAP elements, ordering new labs and/or referrals, and explaining the plan to the patient. Daniel Paez DO documented in this encounter [facility] 06-11-2023 Miscellaneous Notes Patient's request for medication is as follows: Requested Prescriptions Pending Prescriptions Disp Refills nystatin (MYCOSTATIN, NILSTAT) 500,000 unit tab 180 tablet 1 Sig: Take 2 tablets by mouth three times a day with meals. Please approve the above prescription(s) to electronically send to pharmacy. Antonio Dalton Ma documented in this encounter [facility] 04-23-2023 Discharge summary Note Date/Time April 23, 2023 6:15pm [facility] [address] [place] [address] [address] [place] [address] / REHABILITATION SERVICES DISCHARGE SUMMARY MR#: [id number] Acct: [id number] Name: WALDEMAR HUDSON Rep #: [id number] : [id number] From: Cert. SANDY Collier, OCS Referring Dr.: Dr. Keren Dumont MD Status: REG RCR Insurance: [facility] SELF PAY INSURANCE <Electronically signed by Cert. SANDY Blanca PT, OCS> 04/23/231814 CC: Dr. Keren Dumont MD ~ JLA Signed [facility] Work Phone: [phone]) 222-654507-31-2023 Miscellaneous Notes* Telephone Encounter - Judith Stone MA - 04/02/2023 10:04 AM EDT Patient phones requesting refills as follows: Requested Prescriptions Pending Prescriptions Disp Refills nystatin (MYCOSTATIN, NILSTAT) 500,000 unit tab 180 tablet 1 Sig: Take 2 tablets by mouth three times daily with meals. Last office visit: 03/13/2023 Future appointment: 09/11/2023 Please review and advise. Judith Stone MA [facility] Instructions* Patient Instructions* Daniel Paez DO - 03/13/2023 12:27 PM EDT Plan/Instructions/Resources: Diagnoses and all orders for this visit: Intestinal dysbiosis: retest your *microbial OAT. If this is cleared, great. If not cleared, then will have to restart topical anti-fungals. If worse, then will start systemic antifungal. This is a first-morning urine Non-seasonal allergic rhinitis due to fungal spores Repeat *microbial OAT through [facility], this is a first-morning urine. Motor neuron disease: Continue your MV, omega-3's, magnesium, CoQ10, and it's fine to start the Maureen protocol. Consider seeing Dr. Kranthi Fowler for overall brain health. Will send referral. Use your soft chamber hyperbaric Referral for Dr. Javier Montoya; he is an replanting machine crew at the clinic that specializes in neurological conditions History of Lyme disease: Dr. Javier Montoya and Dr. Kranthi Fowler Have your daughter start to make something special for you that's gluten-free and sugar-free. Janusz with stevia and a bit of maple syrup, use rice/coconut/almond flours. Future Plans: Follow up: Please schedule a follow up visit with the following Caregivers: Provider: 8weeks LIFESTYLE PRESCRIPTION Functional Nutrition: Personalized Elimination Food Plan Gluten-free and Dairy-free Food Plan Sleep: Sleep goal for most adults is a minimum of 7-9 hours nightly. Exercise Prescription: Numerous studies confirm the benefits of regular moderate aerobic exercise (walking, swimming, elliptical machine, cycling, etc.) for 30 min 5 days per week (150 min goal). Stress Management: 1) Please look into this Heart Rate Variability BioFeedback Tool (www.heartmath.org). 2) A regular, daily meditation practice of at least 15-20 minutes will change your brain--as well as your genes! Behavioral Health Therapist: If I recommended counseling or individual therapy, please schedule an individual appointment with our Functional Medicine Behavioral Health Therapist , Rudi David, after your visit today. The Behavioral Health Therapist helps patients identify and understand feelings and behaviors, experience the process of making positive change, and gain healthy coping skills. 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 [phone]. Smart phone apps to begin a meditative practice: Headspace (free for first 10 days) Insight Meditation Timer- (Free)-Great all-around belle to use for guided meditations of many different types and lengths or just to use as a tool to time and track your meditation practice. This is myabsolute favorite! Calm- (Free) Walking Meditations-($1.99)- Get your walk AND meditation done together. A good way to start out for individuals who feel they just can't sit still to begin a meditative practice. [facility] History of Present illness Narrative* Daniel Paez DO - 03/13/2023 9:45 AM EDT Follow-up Virtual Visit I have communicated my name and active licensure. The patient s identity and physical location wereverified at the time of this visit. Either the patient or their legal branch sales and service representative has been informed of the risks and benefits of -- and alternatives to -- treatment through a remote evaluation andconsents to proceed with the evaluation remotely. Patient: Waldemar Hudson There is no height or weight on file to calculate BMI. RMR can't be calculated - Weight unrecorded in last 120 days. Waist measurement: No waist measurement recorded. BP: ALLERGIES Allergen Reactions Malarone [Atovaquon* Hives Thimersol [Thimeros* Makes eyes red- thimerosal in contacts Current Outpatient Medications on File Prior to Visit Medication Sig nystatin (MYCOSTATIN, NILSTAT) 500,000 unit tab Take 2 tablets by mouth three times daily with meals. itraconazole 0.5 % (CPD) 2 sprays to each nose twice per day for 14 days, then stop for two weeks, and then start for 2 weeks. ARMOUR THYROID 90 mg tab TAKE ONE TABLET BY MOUTH ONCE DAILY 20 MINUTES BEFORE BREAKFAST Fish Oil-[place]-3 Fatty Acids 300-1,000 mg cap Take by mouth. liothyronine (CYTOMEL) 5 mcg tablet Take 5 mcg by mouth. Meriva-SR (Monae) decrease inflammation/pain/gut healing Take 1-2 capsules two times daily No current facility-administered medications on file prior to visit. PAST MEDICAL HISTORY Diagnosis Date Arrhythmia irregular heart rate-several yrs ago-PVC's Esophageal reflux 05/24/2005 Lichen sclerosus PERS HX OF THYROID MALIGNANCY 05/24/2005 Snoring PAST SURGICAL HISTORY Procedure Laterality Date COLONOSCOPY FLX DX W/COLLJ SPEC WHEN PFRMD 2003 Colonoscopy COLONOSCOPY FLX DX W/COLLJ SPEC WHEN PFRMD 10/01/14 Colonoscopy EGD TRANSORAL BIOPSY SINGLE/MULTIPLE 03/09/06 Hiatal hernia/gastritis/esophagitis ESOPHAGOGASTRODUODENOSCOPY TRANSORAL DIAGNOSTIC 10/01/14 EGD LAPS SURG CHOLECYSTECTOMY W/CHOLANGIOGRAPHY 03/12/06 PAST SURGICAL HISTORY OF 03/12/2006 transvaginal sling REMOVAL SKN TAGS DIRECTOR CHECK FIBRQ TAGS ANY AREA UPW/15 03/18/11 Ablation skin tags/ shave bx x 2 S SLING BLADDER SALPINGO-OOPHORECTOMY COMPL/PRTL UNI/BI SPX 10/25/00 Salpingo-oophorectomy THYROIDECTOMY TOTAL/COMPLETE 07/19/01 For Cancer THYROIDECTOMY TOTAL/COMPLETE TOTAL ABDOMINAL HYSTERECT W/WO RMVL TUBE OVARY 10/25/00 Hysterectomy, FIDE for fibroids and abnormal menstruation Social History Tobacco Use Smoking status: Never Smokeless tobacco: Never Substance Use Topics Alcohol use: Yes Comment: Occaisional Drug use: No Functional Medicine Timeline PHQ-9 Score: 9 (07/12/2022 5:29 PM) (0-4) minimal depression (5-9) mild depression (10-14) moderate depression (15-19) moderately severe depression (20-27) severe depression PROMIS Global Health - (T-Scores - the mean of general population = 50. Five points is a clinicallymeaningful difference.) 08/03/2022 11/12/2022 03/09/2023 Physical T-Score 32.4 34.9 32.4 Mental T-Score 56 56 53.04 December 2018 Visit- Patient goals: See below Subjective: 1. Coughing 2. Port flush 3. TSH repeat - check today 4. Wants a hand specialist - ask PCP 5. [facility] - started sore throat, Gargle and swallow argetyn (1 tBLSP a few times a day), honey lemon tea (warm) 6. C. Difficile (tx [address] Livingston flagyl, vanco, dificid) Apr Visit- Patient goals: 1. Walking 2. Left hand use Subjective: C/o cough more of an issue - keeping her from speaking easily. Better when she was in [place]. Had illness and Dr. Livingston felt it was related to a virus she alreadyhas. Cough is related to sense of smell, eating and talking. Currently on Doxy, augmentin (off clinda), valtrex, diflucan - since November. Fungal rashmuch better, hair is darker. hasnt done hormones, but did saw palmetto due to testosterone Thyroid med was changed to armour and TSH very high needed and increased dose - helped. December Visit- Patient goals: 1. Walking 2. 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 Having many amalgams removed (biologic dentist) and on his protocol (DMSA), Vit C, GSE, COQ10, minerals, probiotics, EPA, GLA + DMSA 500mg, Repeat for 2 days after procedure. He has her on high dose doxy, Augmentin for 2 months then diflucan 3 days a week. Medication orders placed this encounter [id number] (BMX 1:1:1) 1:1:1 liqd Sig: Take 5 mL by mouth three times daily. Dispense: 1 Bottle Refill: 0 Nystatin 50,000 Unit (atomized) nasal spray --> (Scottie Estherasia will call you) Sig: dissolve 1 cap (45568 units)/spray: use 2 sprays in each nostril twice daily Dispense: 60 capsule Refill: 2 Additional Recommendations Today's plan - Cough - used PPI and it helped, GI revive didn't help 1 TBSP/d NEED to go up higher. BHRT (E/P) not started (mammo in a few weeks) - go ahead and start hormones. Start supplements one at a time, Start with angelica for mold + saccharomyces Argentyn for sore throat Repeat MARCoNS and c/w gliotoxin tx Carla Magana pHd appt Next visit - review MARCoNS started nystatin nasal spray? ?Beyond Balance Tox-ease add ?glutamine Future 23&me, BHRT Treatments: (binders-->argentyn nasal spray 1 spray BID-->BEGS (nasal biofilm) ---->antifungal nasal spray (nystatin, keto, or AMB)-->NAC(250-500mg oral QD or BID)-->oral antifungal(hpmaftup437,000 u orally, 1-4x a day, diflucan 100mg once every OTHER week) --> oral biofilm buster Jul 18, 2022 Subjective: In 2011, came back from [facility] with high fever and foot drop Muscle spasms in one leg, then the other. Eventually, left hand didn't have fine motor control (left-hand dominant) Speech has been recent, in past couple of years. Was speaking well until November 2018 Another colleague got a brain tumor usually found in peds. Didn't have any colds for a couple of years after that. Positive for Anaplasma Metals: All fillings out treated with IV chelation through Dr. Paredes, took about 3-4 months. Completed taht. Also Did 5 months of IV antibiotics with Dr. Livingston, used port. Had C diff during the IV treatment. Port was removed because antibiotics didn't seem to be helping. Dr. Livingston kept treating with herbs and plant supplements. Also had voriconazole treatments, because of high mycotoxin levels. She was also on amphotericin nasal and oral, still taking the oral. 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 Seemed to get C diff again, so added Flagyl. then Had C diff, Thinks she may have had C diff was treated with Then had food poisoning Asked for Rifampin, and felt better on this, too For a long time, had rash on forearm. In the middle of summer, February/March, had a cyst on her back that became inflaed, pus-filled. It was so inflamed it couldn't be extracted; cipro cleared this up. Rifampin was the most effective to clear her symjptoms. Currently symptoms: Muscle weakness, lack of balance, fatigue, emotionality, speech difficulty Left eye is blurry Intermittent nerve pain in her feet Muscle spasms, mostly in legs, Restless legs Joint pains in knees, gideon right Hip/shoulder pains which affect sleep Has had occipital nerve pain, in back of head. Skin rash, intermittent; rifampin was helpful for this. Rifampin helped BM's, less loose, and joint pains idd improve Since the Rifampin, has been constipated Taking raw psyllium husks in her smoothie. She did just do a cologuard Plan/Instructions/Resources: Let's repeat mycotoxin test: [facility] mycotoxin testing: Take liposomal glutathione by [employer] 500mg twice daily for 3 days, then collect urine 30-60 minutes after second dose on third day. We'll add [facility]-tox to test for synthetic toxins as well. Microbial OAT test is urine test for current colonization of mold/bacteria. This can be added to the same urine Stool test through [facility]. Nutreval kit is first-morning blood and urine; [facility] Stiven Marte, neurologist, treats Lyme. November 13, 2022 Subjective: Waldemar has been doing pool therapy, with positive results. Is seeing Dr. Marte. He prescribed Nudexa, and Amantadine. The amantadine is supposed to give her more energy. She does 45-60 minutes on an exercise machine The whole family had a virus, everyone was tired. It was respiratory. Joints were really inflamed at the time. Is over that now, in the past couple of days. About a week ago her feet hurt, which made walking unstable. THC made the pain go away. Plan/Instructions/Resources: For mold toxins: Biopure chlorella, take 4 tabs with breakfast and dinner Klallie therbiotic detox, take this with lunch Glucomannan: NOW brand, open a capsule and put in glass of water. Start using Surendra-Med rinse, use twice daily if you can. Filtered water is fine. 1/4 teaspoon salt is fine. Every week, put 2 drops of Lugol's 2% in the bottle (Lugol's is on Omniata) For the Nutreval: MV, including B-complex, Pure encapsulations or Kane or Monae Continue your glutathione For oxidative stress, take eye formula. And start carnitine 500mg daily to help burn fats efficiently. For the GI stool resuit, taking the above therbiotic detox will help For yeast colonization, take nystatin, this has been sent to [facility] For nasal colonization of mold, use itraconazole spray (from [employer]) after your nasal rinse. Today's March 13, 2023 Subjective: Dr. Marte changed her amantadine from 2 a day to 3 a day. And increased the Nudexa from 2 to 3. He also recommended exercise with a recumbent bike, but doesn't have room for one. Does instead the Qubi for 30-45 minutes a night. That is really helping her kknees, and has incrreased her leg strength in her quads. Waldemar ran across and Argeinine alpha ketoglutarate, and LAUREN The KASSIE protocol, developed by a father for his daughter. This has improved her mitochondrial function. She had Lyme disease, but was misdiagnosed with ALS Falling down, neurological issues. Knee is better Has fallen twice because of the knee since the last visit. A couple of bruises. Has had rashes/patches on the inside of her knee that are raised, quarter-sized, maybe a little bigger. Doesn't itch, didn't fall on it, doesn't have pets, hasn't been travleling. Has been using a CBD/THC salve Is eating regular gluten occasionally. Daughter who lives with them has a bakery. Has been off alcohol for the past 5 years. Has been on nystatin Was on the itraconazole spray for 2 months. Objective: There were no vitals taken for this visit. Bioelectrical Impedance Analysis Results by [employer] Recent Results from: 09/06/16 at 10:24 AM BMI: 26.85 kg/m General Test Result Range Phase Angle (PA) 9.2 Min: 5.8 Mean: 6.7 Max: 7.6 Above max by 1.6 Basal Metabolic Rate (BMR) 1675 Min: 1172 Mean: 1327 Max: 1482 Above max by 193 Fat & Fat Free Mass Test Result Range Fat (lbs) 56.8 Min: 39.6 Mean: 62.2 Max: 84.8 Lower than midpoint by 5.4 (38.1% of rng) Fat % 32 Min: 31.7 Mean: 38.3 Max: 44.9 Lower than midpoint by 6.3 (2.3% of rng) Fat Free Mass (FFM) lbs 120.7 Min: 81.5 Mean: 95.8 Max: 110.1 Above max by 10.6 Total Body Water Test Result Range TBW (lbs) 89.8 Min: 60.9 Mean: 71.7 Max: 82.5 Above max by 7.3 TBW % of FFM 74.4 Min: 73.2 Mean: 74.7 Max: 76.2 Lower than midpoint by .3 (40% of rng) Intracellular Water Test Result Range ICW (lbs) 47.3 Min: 33.1 Mean: 37.7 Max: 42.3 Above max by 5 ICW % of FFM 39.2 Min: 38 Mean: 39.5 Max: 41 Lower than midpoint by .3 (40% of rng) Extracellular Water Test Result Range ECW (lbs) 42.5 Min: 27.6 Mean: 34 Max: 40.4 Above max by 2.1 ECW % of FFM 35.2 Min: 33.5 Mean: 35.2 Max: 36.9 At the midpoint Physical Exam: General: A&Ox4, nad CURRENT Functional Medicine Assessment/ PLAN Assessment Assessment: K59.89 Intestinal dysbiosis (primary encounter diagnosis) J30.89 Non-seasonal allergic rhinitis due to fungal spores G12.20 Motor neuron disease (HCC) Z86.19 History of Lyme disease Story - bottle fed, ABX, mono, OCP expsoure to pesticides, mercury And bug bites in other countries, then stressor at work - started having motor neuron disease. Mold exposure in her work bldg Stress - full prof [place], good repuation, Reprimanded for a good deed then had to keep workingwith the person who betrayed her - occurred prior to the Motor neuron disorder MSIDS Apr Trial of Progesterone, Estradiol (get mammogram) Trial of prilosec for 4 days, if helps cough and voice. If helps then use GI revive 2 TBLSP twice aday for 2 months. Will start angelica trial for mold exposure. Start BEGS and nystatin nasal spray ON NAD nasal spray - not helping much LDN helped after a month which resolved. Dec 2017 [facility] Leanna ISAAC note Postmenopausal - Address w/ Dr. Livingston Cough - try Quercitin On AA powder from Scottie Maynard and NAD CIRS - was sick with angelica, On Argentyn Jul 2017 visit- reviewed [place] High dose GSH made her sick for a few months, felt badly on DMSA, worse with 2 saccharomyces C/w mold -gliotoxin gentle treatment Tx: Dr. Damon w/ EDTA IV Nutritional Assessment Nutreval Jun 2017 Most high need, high lipid peroxides/8OHDG Plan: Ultranutrient Digestive Function GERD improved w/diet (no sugar) Constipation - better off diflucan GI effects March 2017 - Dysbiosis Elevated fecal fat/LCF A, cluster O, phospholipids as per Very low short-chain fatty acids Commensal bacteria-18 of 23 elevated with high Lactobacillus and Escherichia coli, low bifidobacterium Additional bacteria Bacillus species 4+, Klebsiella pneumonia 4+ both sensitive to Bactrim Plan: Ox bile acids, Biotagen, Therbiotic Factor 4, Bactrim for 10 days with Saccharomyces B Inflammation/Immune Function 2000 Thyroid cancer Dry cough - since May 2016 (comes/goes) Itchy/dry skin jock itch persists - 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 Energy Production Motor neuron disorder - leg weakness Fatigue - better with B12 shots Foot/calf cramps Detoxification Function WOLFF Many amalgams 2017 K[facility]K repeat compared to November 2016 after 13 IV EDTA-lead dropped from 27-->10.2, mercury increased from 14.36 --> 19.73 (patient felt good on EDTA and rash cleared) Tx: Dr. Damon w/ EDTA IV Waldemar's office was moldy, was there for 29 years. Hormonal Assessment Insomnia - hot flash 5am Hot flashes - black cohosh helps the intensity Hypothyroid dt cancer - brittle nails Postmenopausal - Structural Assessment OA knees Swollen ankles Plan and Lifestyle Prescription Plan/Instructions/Resources: Diagnoses and all orders for this visit: Intestinal dysbiosis: retest your *microbial OAT. If this is cleared, great. If not cleared, then will have to restart topical anti-fungals. If worse, then will start systemic antifungal. This is a first-morning urine Non-seasonal allergic rhinitis due to fungal spores Repeat *microbial OAT through [facility], this is a first-morning urine. Motor neuron disease: Continue your MV, omega-3's, magnesium, CoQ10, and it's fine to start the Maureen protocol. Consider seeing Dr. Kranthi Fowler for overall brain health. Will send referral. Use your soft chamber hyperbaric Referral for Dr. Javier Montoya; he is an replanting machine crew at the clinic that specializes in neurological conditions History of Lyme disease: Dr. Javier Montoya and Dr. Kranthi Fowler Have your daughter start to make something special for you that's gluten-free and sugar-free. Janusz with stevia and a bit of maple syrup, use rice/coconut/almond flours. Future Plans: Follow up: Please schedule a follow up visit with the following Caregivers: Provider: 8weeks LIFESTYLE PRESCRIPTION Functional Nutrition: Personalized Elimination Food Plan Gluten-free and Dairy-free Food Plan Sleep: Sleep goal for most adults is a minimum of 7-9 hours nightly. Exercise Prescription: Numerous studies confirm the benefits of regular moderate aerobic exercise (walking, swimming, elliptical machine, cycling, etc.) for 30 min 5 days per week (150 min goal). Stress Management: 1) Please look into this Heart Rate Variability BioFeedback Tool (www.heartmath.org). 2) A regular, daily meditation practice of at least 15-20 minutes will change your brain--as well as your genes! Behavioral Health Therapist: If I recommended counseling or individual therapy, please schedule an individual appointment with our Functional Medicine Behavioral Health Therapist , Rudi David, after your visit today. The Behavioral Health Therapist helps patients identify and understand feelings and behaviors, experience the process of making positive change, and gain healthy coping skills. Health Coaching: Please consider scheduling with our [facility] Functional Medicine health coaches for a phone or virtual visit for accountability, goal setting and help with behavior private branch exchange installer the next 6-8 weeks to be successful with your goals. [phone]. Smart phone apps to begin a meditative practice: Headspace (free for first 10 days) Insight Meditation Timer- (Free)-Great all-around belle to use for guided meditations of many different types and lengths or just to use as a tool to time and track your meditation practice. This is myabsolute favorite! Calm- (Free) Walking Meditations-($1.99)- Get your walk AND meditation done together. A good way to start out for individuals who feel they just can't sit still to begin a meditative practice. Medications/Supplements Recommended: No orders of the defined types were placed in this encounter. I recommend the supplements from the [facility] at https://store.SuppreMol.Web [place]/ as we have thoroughly evaluated the research and use only highest quality supplements. During the next 6-8 weeks you'll be working on your diet plan discussed with our desk manager, allowing for gentle detoxification and decreasing inflammation - while we are gathering your lab resultsand combining those with your complete history to formulate a very personalized treatment plan. LAB results: Due to the complexity of the testing performed, we are not able to review labs via [employer] or over the phone, but please know, if any of your labs are critical we will contact you. Otherwise, we will review all your labs at your next visit. We will go over a lot of information during your follow up visit - so please be well-rested and youmay want to bring someone with you, if possible. Also make sure to schedule with the desk manager (this will not happen automatically) as you did with your first visit so that she can review nutritional aspects of your treatment plan. By your 3rd visit, as things are improving, we will likely transition you to one of our very capable Certified Nurse Practitioners/Physician Assistants for further follow-up. Potential future labs: Any Sasha labs ordered take about 4 weeks to return. Do them as soon as possible so that we have the results before your next appointment. You can access them on the [employer] website and it can be beneficial if you review them prior to your next visit. www.[employer].net. Read about NutrEval if this was ordered. Time spend with patient: I spent 30 minutes in preparation for the visit, reviewing labs with the patient, charting the SOAPelements, ordering new labs and/or referrals, and explaining the plan to the patient. Daniel Paez DO documented in [facility]23 Miscellaneous Notes* Telephone Encounter - Jhon Coreas Ma - 11/15/2022 11:46 AM EDT Patient phones requesting refills as follows: Requested Prescriptions Pending Prescriptions Disp Refills itraconazole 0.5 % (CPD) 30 mL 2 Si sprays to each nose twice per day for 14 days, then stop for two weeks, and then start for 2weeks. Please re-sign for e-prescribe. Thank you. Jhon Coreas Ma documented in this encounterChillicothe [facility]03-13-2023 Instructions* Patient Instructions* Daniel Paez DO - 11/13/2022 6:07 PM EDT Plan/Instructions/Resources: For mold toxins: Biopure chlorella, take 4 tabs with breakfast and dinner Klaire therbiotic detox, take this with lunch Glucomannan: NOW brand, open a capsule and put in glass of water. Start using Surendra-Med rinse, use twice daily if you can. Filtered water is fine. 1/4 teaspoon salt is fine. Every week, put 2 drops of Lugol's 2% in the bottle (Lugol's is on Omniata) For the Nutreval: MV, including B-complex, Pure encapsulations or Kane or Monae Continue your glutathione For oxidative stress, take eye formula. And start carnitine 500mg daily to help burn fats efficiently. For the GI stool resuit, taking the above therbiotic detox will help For yeast colonization, take nystatin, [facility] For nasal colonization of mold, use itraconazole spray (from [employer]) after your nasal rinse. Future Plans: Follow up: Please schedule a follow up visit with the following Caregivers: Provider: 12 weeks LIFESTYLE PRESCRIPTION Functional Nutrition: Personalized Elimination Food Plan Gluten-free and Dairy-free Food Plan Sleep: Sleep goal for most adults is a minimum of 7-9 hours nightly. Exercise Prescription: Numerous studies confirm the benefits of regular moderate aerobic exercise (walking, swimming, elliptical machine, cycling, etc.) for 30 min 5 days per week (150 min goal). Stress Management: 1) Please look into this Heart Rate Variability BioFeedback Tool (www.heartmath.org). 2) A regular, daily meditation practice of at least 15-20 minutes will change your brain--as well as your genes! Behavioral Health Therapist: If I recommended counseling or individual therapy, please schedule an individual appointment with our Functional Medicine Behavioral Health Therapist , Rudi David, after your visit today. The Behavioral Health Therapist helps patients identify and understand feelings and behaviors, experience the process of making positive change, and gain healthy coping skills. 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 [phone]. Smart phone apps to begin a meditative practice: Headspace (free for first 10 days) Insight Meditation Timer- (Free)-Great all-around belle to use for guided meditations of many different types and lengths or just to use as a tool to time and track your meditation practice. This is myabsolute favorite! Calm- (Free) Walking Meditations-($1.99)- Get your walk AND meditation done together. A good way to start out for individuals who feel they just can't sit still to begin a meditative practice. Medications/Supplements Recommended: documented in this encounterChillicothe [facility]03-13-2023 History of Present illness Narrative* Daniel Paez DO - 11/13/2022 5:33 PM EDT Follow-up Virtual Visit I have communicated my name and active licensure. The patient s identity and physical location wereverified at the time of this visit. Either the patient or their legal branch sales and service representative has been informed of the risks and benefits of -- and alternatives to -- treatment through a remote evaluation andconsents to proceed with the evaluation remotely. Patient: Waldemar Hudson There is no height or weight on file to calculate BMI. RMR can't be calculated - Weight unrecorded in last 120 days. Waist measurement: No waist measurement recorded. BP: ALLERGIES Allergen Reactions Malarone [Atovaquon* Hives Thimersol [Thimeros* Makes eyes red- thimerosal in contacts Current Outpatient Medications on File Prior to Visit Medication Sig ARMOUR THYROID 90 mg tab TAKE ONE TABLET BY MOUTH ONCE DAILY 20 MINUTES BEFORE BREAKFAST Fish Oil-[place]-3 Fatty Acids 300-1,000 mg cap Take by mouth. liothyronine (CYTOMEL) 5 mcg tablet Take 5 mcg by mouth. Meriva-SR (Monae) decrease inflammation/pain/gut healing Take 1-2 capsules two times daily No current facility-administered medications on file prior to visit. PAST MEDICAL HISTORY Diagnosis Date Arrhythmia irregular heart rate-several yrs ago-PVC's Esophageal reflux 05/24/2005 Lichen sclerosus PERS HX OF THYROID MALIGNANCY 05/24/2005 Snoring PAST SURGICAL HISTORY Procedure Laterality Date COLONOSCOPY FLX DX W/COLLJ SPEC WHEN PFRMD 2003 Colonoscopy COLONOSCOPY FLX DX W/COLLJ SPEC WHEN PFRMD 10/01/14 Colonoscopy EGD TRANSORAL BIOPSY SINGLE/MULTIPLE 03/09/06 Hiatal hernia/gastritis/esophagitis ESOPHAGOGASTRODUODENOSCOPY TRANSORAL DIAGNOSTIC 10/01/14 EGD LAPS SURG CHOLECYSTECTOMY W/CHOLANGIOGRAPHY 03/12/06 PAST SURGICAL HISTORY OF 03/12/2006 transvaginal sling REMOVAL SKN TAGS DIRECTOR CHECK FIBRQ TAGS ANY AREA UP03/18/11 Ablation skin tags/ shave bx x 2 S SLING BLADDER SALPINGO-OOPHORECTOMY COMPL/PRTL UNI/BI SPX 10/25/00 Salpingo-oophorectomy THYROIDECTOMY TOTAL/COMPLETE 07/19/01 For Cancer THYROIDECTOMY TOTAL/COMPLETE TOTAL ABDOMINAL HYSTERECT W/WO RMVL TUBE OVARY 10/25/00 Hysterectomy, FIDE for fibroids and abnormal menstruation Social History Tobacco Use Smoking status: Never Smokeless tobacco: Never Substance Use Topics Alcohol use: Yes Comment: Occaisional Drug use: No Functional Medicine Timeline PHQ-9 Score: 9 (07/12/2022 5:29 PM) (0-4) minimal depression (5-9) mild depression (10-14) moderate depression (15-19) moderately severe depression (20-27) severe depression PROMIS Global Health - (T-Scores - the mean of general population = 50. Five points is a clinicallymeaningful difference.) 07/23/2022 08/03/2022 11/12/2022 Physical T-Score 32.4 32.4 34.9 Mental T-Score 53.3 56 December Visit- Patient goals: See below Subjective: 1. Coughing 2. Port flush 3. TSH repeat - check today 4. Wants a hand specialist - ask PCP 5. Bad cold after going to [place] (saw grand son) - started sore throat, Gargle and swallow argetyn (1 tBLSP a few times a day), honey lemon tea (warm) 6. C. Difficile (tx [address] Livingston located [facility]) Apr Visit- Patient goals: 1. Walking 2. Left hand use Subjective: C/o cough more of an issue - keeping her from speaking easily. Better when she was in [place]. Had illness and Dr. Livingston felt it was related to a virus she alreadyhas. Cough is related to sense of smell, eating and talking. Currently on Doxy, augmentin (off clinda), valtrex, diflucan - since November. Fungal rashmuch better, hair is darker. hasnt done hormones, but did saw palmetto due to testosterone Thyroid med was changed to armour and TSH very high needed and increased dose - helped. December Visit- Patient goals: 1. Walking 2. 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 Having many amalgams removed (biologic dentist) and on his protocol (DMSA), Vit C, GSE, COQ10, minerals, probiotics, EPA, GLA + DMSA 500mg, Repeat for 2 days after procedure. He has her on high dose doxy, Augmentin for 2 months then diflucan 3 days a week. Medication orders placed this encounter [id number] (BMX 1:1:1) 1:1:1 liqd Sig: Take 5 mL by mouth three times daily. Dispense: 1 Bottle Refill: 0 Nystatin 50,000 Unit (atomized) nasal spray --> (Scottie Maynard will call you) Sig: dissolve 1 cap ([id number] units)/spray: use 2 sprays in each nostril twice daily Dispense: 60 capsule Refill: 2 Additional Recommendations Today's plan - Cough - used PPI and it helped, GI revive didn't help 1 TBSP/d NEED to go up higher. BHRT (E/P) not started (mammo in a few weeks) - go ahead and start hormones. Start supplements one at a time, Start with angelica for mold + saccharomyces Argentyn for sore throat Repeat MARCoNS and c/w gliotoxin tx Carla Magana pHd appt Next visit - review Jaclyn started nystatin nasal spray? ?Beyond Balance Tox-ease add ?glutamine Future 23&me, BHRT Treatments: (binders-->argentyn nasal spray 1 spray BID-->BEGS (nasal biofilm) ---->antifungal nasal spray (nystatin, keto, or AMB)-->NAC(250-500mg oral QD or BID)-->oral antifungal([id number],000 u orally, 1-4x a day, diflucan 100mg once every OTHER week) --> oral biofilm buster Today's Jul 18, 2022 Subjective: In 2011, came back from [facility] with high fever and foot drop Muscle spasms in one leg, then the other. Eventually, left hand didn't have fine motor control (left-hand dominant) Speech has been recent, in past couple of years. Was speaking well until November 2018 Another colleague got a brain tumor usually found in peds. Didn't have any colds for a couple of years after that. Positive for Anaplasma Metals: All fillings out treated with IV chelation through Dr. Paredes, took about 3-4 months. Completed taht. Also Did 5 months of IV antibiotics with Dr. Livingston, used port. Had C diff during the IV treatment. Port was removed because antibiotics didn't seem to be helping. Dr. Livingston kept treating with herbs and plant supplements. Also had voriconazole treatments, because of high mycotoxin levels. She was also on amphotericin nasal and oral, still taking the oral. 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 Seemed to get C diff again, so added Flagyl. then Had C diff, Thinks she may have had C diff was treated with Then had food poisoning Asked for Rifampin, and felt better on this, too For a long time, had rash on forearm. In the middle of summer, February/March, had a cyst on her back that became inflaed, pus-filled. It was so inflamed it couldn't be extracted; cipro cleared this up. Rifampin was the most effective to clear her symjptoms. Currently symptoms: Muscle weakness, lack of balance, fatigue, emotionality, speech difficulty Left eye is blurry Intermittent nerve pain in her feet Muscle spasms, mostly in legs, Restless legs Joint pains in knees, gideon right Hip/shoulder pains which affect sleep Has had occipital nerve pain, in back of head. Skin rash, intermittent; rifampin was helpful for this. Rifampin helped BM's, less loose, and joint pains idd improve Since the Rifampin, has been constipated Taking raw psyllium husks in her smoothie. She did just do a cologuard Plan/Instructions/Resources: Let's repeat mycotoxin test: [facility] mycotoxin testing: Take liposomal glutathione by Pure Encapsulations 500mg twice daily for 3 days, then collect urine 30-60 minutes after second dose on third day. We'll add [facility]-tox to test for synthetic toxins as well. Microbial OAT test is urine test for current colonization of mold/bacteria. This can be added to the same urine Stool test through [employer]. Nutreval kit is first-morning blood and urine; [facility] Stiven Marte, neurologist, treats Lyme. Today's November 13, 2022 Subjective: Waldemar has been doing pool therapy, with positive results. Is seeing Dr. Marte. He prescribed Nudexa, and Amantadine. The amantadine is supposed to give her more energy. She does 45-60 minutes on an exercise machine The whole family had a virus, everyone was tired. It was respiratory. Joints were really inflamed at the time. Is over that now, in the past couple of days. About a week ago her feet hurt, which made walking unstable. THC made the pain go away. Objective: There were no vitals taken for this visit. Bioelectrical Impedance Analysis Results by [employer] Recent Results from: 09/06/16 at 10:24 AM BMI: 26.85 kg/m General Test Result Range Phase Angle (PA) 9.2 Min: 5.8 Mean: 6.7 Max: 7.6 Above max by 1.6 Basal Metabolic Rate (BMR) 1675 Min: 1172 Mean: 1327 Max: 1482 Above max by 193 Fat & Fat Free Mass Test Result Range Fat (lbs) 56.8 Min: 39.6 Mean: 62.2 Max: 84.8 Lower than midpoint by 5.4 (38.1% of rng) Fat % 32 Min: 31.7 Mean: 38.3 Max: 44.9 Lower than midpoint by 6.3 (2.3% of rng) Fat Free Mass (FFM) lbs 120.7 Min: 81.5 Mean: 95.8 Max: 110.1 Above max by 10.6 Total Body Water Test Result Range TBW (lbs) 89.8 Min: 60.9 Mean: 71.7 Max: 82.5 Above max by 7.3 TBW % of FFM 74.4 Min: 73.2 Mean: 74.7 Max: 76.2 Lower than midpoint by .3 (40% of rng) Intracellular Water Test Result Range ICW (lbs) 47.3 Min: 33.1 Mean: 37.7 Max: 42.3 Above max by 5 ICW % of FFM 39.2 Min: 38 Mean: 39.5 Max: 41 Lower than midpoint by .3 (40% of rng) Extracellular Water Test Result Range ECW (lbs) 42.5 Min: 27.6 Mean: 34 Max: 40.4 Above max by 2.1 ECW % of FFM 35.2 Min: 33.5 Mean: 35.2 Max: 36.9 At the midpoint Physical Exam: General: A&Ox4, nad CURRENT Functional Medicine Assessment/ PLAN Assessment Assessment: B37.82 Candidal enteritis (primary encounter diagnosis) J30.89, B49 Allergic fungal sinusitis E56.9 Vitamin deficiency Z77.120 Mold exposure Prior assessment: 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 Mold exposure in her work bldg Stress - full prof [employer], good repuation, Reprimanded for a good deed then had to keep workingwith the person who betrayed her - occurred prior to the Motor neuron disorder MSIDS Apr Trial of Progesterone, Estradiol (get mammogram) Trial of prilosec for 4 days, if helps cough and voice. If helps then use GI revive 2 TBLSP twice aday for 2 months. Will start angelica trial for mold exposure. Start BEGS and nystatin nasal spray ON NAD nasal spray - not helping much LDN helped after a month which resolved. Dec 2017 [facility] Leanna ISAAC note Postmenopausal - Address w/ Dr. Livingston Cough - try Quercitin On AA powder from Scottie Maynard and NAD CIRS - was sick with angelica, On Argentyn Jul 2017 visit- reviewed [place] High dose GSH made her sick for a few months, felt badly on DMSA, worse with 2 saccharomyces C/w mold -gliotoxin gentle treatment Tx: Dr. Damon w/ EDTA IV Nutritional Assessment Nutreval Jun 2017 Most high need, high lipid peroxides/8OHDG Plan: Ultranutrient Digestive Function GERD improved w/diet (no sugar) Constipation - better off diflucan GI effects March 2017 - Dysbiosis Elevated fecal fat/LCF A, cluster O, phospholipids as per Very low short-chain fatty acids Commensal bacteria-18 of 23 elevated with high Lactobacillus and Escherichia coli, low bifidobacterium Additional bacteria Bacillus species 4+, Klebsiella pneumonia 4+ both sensitive to Bactrim Plan: Ox bile acids, Biotagen, Therbiotic Factor 4, Bactrim for 10 days with Saccharomyces B Inflammation/Immune Function 2000 Thyroid cancer Dry cough - since May 2016 (comes/goes) Itchy/dry skin jock itch persists - 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 Energy Production Motor neuron disorder - leg weakness Fatigue - better with B12 shots Foot/calf cramps Detoxification Function WOLFF Many amalgams 2016 KANATAK repeat compared to November 2016 after 13 IV EDTA-lead dropped from 27-->10.2, mercury increased from 14.36 --> 19.73 (patient felt good on EDTA and rash cleared) Tx: Dr. Damon w/ EDTA IV Waldemar's office was moldy, was there for 29 years. Hormonal Assessment Insomnia - hot flash 5am Hot flashes - black cohosh helps the intensity Hypothyroid dt cancer - brittle nails Postmenopausal - Structural Assessment OA knees Swollen ankles Plan and Lifestyle Prescription Plan/Instructions/Resources: For mold toxins: Biopure chlorella, take 4 tabs with breakfast and dinner Klaire therbiotic detox, take this with lunch Glucomannan: NOW brand, open a capsule and put in glass of water. Start using Surendra-Med rinse, use twice daily if you can. Filtered water is fine. 1/4 teaspoon salt is fine. Every week, put 2 drops of Lugol's 2% in the bottle (Lugol's is on Omniata) For the Nutreval: MV, including B-complex, Pure encapsulations or Kane or Monae Continue your glutathione For oxidative stress, take eye formula. And start carnitine 500mg daily to help burn fats efficiently. For the GI stool resuit, taking the above therbiotic detox will help For yeast colonization, take nystatin, this has been sent to [facility] For nasal colonization of mold, use itraconazole spray (from [employer]) after your nasal rinse. Future Plans: Follow up: Please schedule a follow up visit with the following Caregivers: Provider: 12 weeks LIFESTYLE PRESCRIPTION Functional Nutrition: Personalized Elimination Food Plan Gluten-free and Dairy-free Food Plan Sleep: Sleep goal for most adults is a minimum of 7-9 hours nightly. Exercise Prescription: Numerous studies confirm the benefits of regular moderate aerobic exercise (walking, swimming, elliptical machine, cycling, etc.) for 30 min 5 days per week (150 min goal). Stress Management: 1) Please look into this Heart Rate Variability BioFeedback Tool (www.heartmath.org). 2) A regular, daily meditation practice of at least 15-20 minutes will change your brain--as well as your genes! Behavioral Health Therapist: If I recommended counseling or individual therapy, please schedule an individual appointment with our Functional Medicine Behavioral Health Therapist , Rudi David, after your visit today. The Behavioral Health Therapist helps patients identify and understand feelings and behaviors, experience the process of making positive change, and gain healthy coping skills. 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 [phone]. Smart phone apps to begin a meditative practice: Headspace (free for first 10 days) Insight Meditation Timer- (Free)-Great all-around belle to use for guided meditations of many different types and lengths or just to use as a tool to time and track your meditation practice. This is myabsolute favorite! Calm- (Free) Walking Meditations-($1.99)- Get your walk AND meditation done together. A good way to start out for individuals who feel they just can't sit still to begin a meditative practice. Medications/Supplements Recommended: Medication orders placed this encounter itraconazole 0.5 % (CPD) Si sprays to each nose twice per day for 14 days, then stop for two weeks, and then start for 2weeks. Dispense: 30 mL Refill: 2 nystatin (MYCOSTATIN, NILSTAT) 500,000 unit tab Sig: Take 2 tablets by mouth three times daily with meals. Dispense: 180 tablet Refill: 1 I recommend the supplements from the [facility] Healthy Living Store at [email or web address] [email or web address] as we have thoroughly evaluated the research and use only highest quality supplements. During the next 6-8 weeks you'll be working on your diet plan discussed with our desk manager, allowing for gentle detoxification and decreasing inflammation - while we are gathering your lab resultsand combining those with your complete history to formulate a very personalized treatment plan. LAB results: Due to the complexity of the testing performed, we are not able to review labs via [employer] or over the phone, but please know, if any of your labs are critical we will contact you. Otherwise, we will review all your labs at your next visit. We will go over a lot of information during your follow up visit - so please be well-rested and youmay want to bring someone with you, if possible. Also make sure to schedule with the desk manager (this will not happen automatically) as you did with your first visit so that she can review nutritional aspects of your treatment plan. By your 3rd visit, as things are improving, we will likely transition you to one of our very capable Certified Nurse Practitioners/Physician Assistants for further follow-up. Potential future labs: Any Sasha labs ordered take about 4 weeks to return. Do them as soon as possible so that we have the results before your next appointment. You can access them on the [employer] website and it can be beneficial if you review them prior to your next visit. [email or web address]. Read about NutrEval if this was ordered. Time spend with patient: I spent 30 minutes in preparation for the visit, reviewing labs with the patient, charting the SOAPelements, ordering new labs and/or referrals, and explaining the plan to the patient. Daniel Paez DO documented in [facility]12[facility] Instructions* [facility] Inst[facility]* [facility] 2[facility]54 PM EST Images from the original note were not included. [facility] FUNCTIONAL MEDICINE HEALTH ELECTRIC MULE OPERATOR FOLLOW-UP Staff Health Assisted Living Nursing Director Follow-Up: [facility] Schedule through [employer] or by calling the [facility] Functional Medicine. [phone] option #1 Wellness Vision: I am enjoying half-way. I have regained the ability to speak and am very physically mobile. We are looking forward to traveling the country and have a trip planned to see my grandson in [place]. ................................................................................ ................................................... Three Month Goals (08/04/22 - 12/01/22): I am staying consistent with my pool therapy and have increased to three times per week. I am more physically comfortable and able to sleep through the night. I have a healthy diet that I enjoy and that I am able to stick to. ................................................................................ ................................................... ................................................................................ ................................................... Recommended Resources from [facility] Nursing Director Portal: Nutrition Mindful and Intuitive Eating Simple Steps to Eat Mindfully Movement The Power of Movement Yoga on the Go Sleep Health IFM Suggestions for Better Sleep Health Benefits of Napping Sleep Questionnaire Mindfulness for Insomnia and Sleep Disorders Mindset Integrating Guided Imagery and Visualization to Achieve Personal Health Goals Practicing Gratitude with the IFM Gratitude Journal VIA [employer] Software Strengths Assessment Support System Self-Care Questionnaire ................................................................................ ................................................... ADDITIONAL INSTRUCTIONS: We offer group coaching sessions focused on Mindfulness. How to [place] for the Mindfulness Group Coaching Program -[place] for the Mindfulness group coaching program at [email or web address] How to Contact Your Functional Medicine Team (Open M-F 8am-5pm): MyChart is the BEST form of communication to reach the Functional Medicine Team, see test results and request refills. Please allow 72 business hours for a response. Directions for signing up are included in your New Patient Folder. (Or you can go to [email or web address]) Ordering Supplements: Supplements can be ordered from the [facility]'s Online Store: [email or web address] New patients to the [employer] Shop will need to enter the provider code FUNCTIONAL to registertheir account. documented in this encounterChillicothe Hospital12-02-2022 History of Present illness Narrative* Elham Beauchamp [facility] - 08/04/2022 2:[address] [facility] Functional [facility] Health Coaching Initial Assessment VIRTUALVISITPN Wheel of Wellness Self-Assessment Wheel of Wellness Satisfaction Willingness Confidence Comments Nutrition 3 4 4 Sleep 2 4 4 Uncomfortable physically hips, knees, shoulders, and leg spasms Stress Resilience 3 4 4 Social Support 4 4 4 Mindset 4 4 4 Physical Activity 1 4 2 Twice a week pool therapy for an hour JONES Satisfaction 1= Extremely Dissatisfied 4= Extremely Satisfied Willingness 1= Not at all willing 4= Extremely Willing Confidence 1= Not at all confident 4= Extremely Confident ................................................................................ ................................................... Chief Concerns/Goals For Coaching: Alize - worked with outside For lyme and working with Dr. 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 ................................................... Wellness Vision: I am enjoying half-way. I have regained the ability to speak and am very physically mobile. We are looking forward to traveling the country and have a trip planned to see my grandson in [place]. ................................................................................ ................................................... Three Month Goals (08/04/22 - 12/01/22): I am staying consistent with my pool therapy and have increased to three times per week. I am more physically comfortable and able to sleep through the night. I have a healthy diet that I enjoy and that I am able to stick to. ................................................................................ .................................................. Educational materials provided/Referrals made: see After Visit Summary Find all resources in the [facility] Nursing Director Portal Recommended Follow-up: weekly Time Spent with patient: 30 minutes Consult Billing Type: 1 increment (30 minutes) Number of Increments: 1 (30 minutes) Signed by: Elham Beauchamp, [facility] Health Assisted Living Nursing Director documented in this encounterChillicothe Hospital11-15-2022 Instructions* Patient Instructions* Daniel Paez, DO - 07/18/2022 11:20 AM EST Plan/Instructions/Resources: Let's repeat mycotoxin test: GPL mycotoxin testing: Take liposomal glutathione by Pure Encapsulations 500mg twice daily for 3 days, then collect urine 30-60 minutes after second dose on third day. We'll add GPL-tox to test for synthetic toxins as well. Microbial OAT test is urine test for current colonization of mold/bacteria. This can be added to the same urine Stool test through [employer]. Nutreval kit is first-morning blood and urine; [facility]. Stiven Marte, neurologist, treats Lyme. Future Plans: Follow up: Please schedule a follow up visit with the following Caregivers: Provider: 8weeks LIFESTYLE PRESCRIPTION Functional Nutrition: Personalized Elimination Food Plan Gluten-free and Dairy-free Food Plan Sleep: Sleep goal for most adults is a minimum of 7-9 hours nightly. Exercise Prescription: Numerous studies confirm the benefits of regular moderate aerobic exercise (walking, swimming, elliptical machine, cycling, etc.) for 30 min 5 days per week (150 min goal). Stress Management: 1) Please look into this Heart Rate Variability BioFeedback Tool (www.heartmath.org). 2) A regular, daily meditation practice of at least 15-20 minutes will change your brain--as well as your genes! Behavioral Health Therapist: If I recommended counseling or individual therapy, please schedule an individual appointment with our Functional Medicine Behavioral Health Therapist , Rudi David, after your visit today. The Behavioral Health Therapist helps patients identify and understand feelings and behaviors, experience the process of making positive change, and gain healthy coping skills. 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 [phone]. Smart phone apps to begin a meditative practice: Headspace (free for first 10 days) Insight Meditation Timer- (Free)-Great all-around belle to use for guided meditations of many different types and lengths or just to use as a tool to time and track your meditation practice. This is myabsolute favorite! Calm- (Free) Walking Meditations-($1.99)- Get your walk AND meditation done together. A good way to start out for individuals who feel they just can't sit still to begin a meditative practice. documented in this encounterChillicothe [facility]11-15-2022 History of Present illness Narrative* Daniel Paez DO - 07/18/2022 10:15 AM EST Follow-up Virtual Visit Patient: Waldemar Hudson There is no height or weight on file to calculate BMI. RMR can't be calculated - Weight unrecorded in last 120 days. Waist measurement: No waist measurement recorded. BP: ALLERGIES Allergen Reactions Malarone [Atovaquon* Hives Thimersol [Thimeros* Makes eyes red- thimerosal in contacts Current Outpatient Medications on File Prior to Visit Medication Sig Nystatin 50,000 Unit (atomized) nasal spray --> (Scottie Maynard will call you) dissolve 1 cap ([id number])/spray: use 2 sprays in each nostril twice daily mvhmcoqtoyGVJJP-xwnmge-jkqeumsbw (BMX 1:1:1) 1:1:1 liqd Take 5 mL by mouth three times daily. benzonatate (TESSALON PERLES) 100 mg capsule Take 1 capsule by mouth three times daily as needed for Cough. albuterol HFA (PROVENTIL HFA, VENTOLIN HFA) 90 mcg/actuation inhaler Inhale 2 Puffs as instructed every 4 hours as needed. BEGs nasal spray Bactroban(Mupirocin) 0.2% Edetate Disodium (EDTA) 0.1%, Gentamicin 0.25% Adults: Two sprays to each nostril 2 times a day Blow nose then breathe and spray each nostril. If ear ringing occurs - stop nasal spray FAXED to [facility] pharmacy Nystatin 50,000 Unit (atomized) nasal spray --> ([facility] will call you) dissolve 1 cap (50,000 units) in 3 ml and spray 1.5 ml in each nostril 2 times a day Estradiol 0.0375 mg/24 hr Apply 1 Patch as directed twice a week. progesterone micronized (PROMETRIUM) 100 mg capsule Take 1 capsule by mouth daily at bedtime. ARMOUR THYROID 90 mg tab TAKE ONE [...] mouth. fluconazole (DIFLUCAN) 200 mg tablet Fish Oil-[place]-3 Fatty Acids 300-1,000 mg cap Take by [...] capsule by mouth twice daily. Take at least2 hrs away from probiotics. Avoid sunlight, do [...] capsules twice a day with meals Meriva-SR (Monae) decrease inflammation/pain/gut healing Take 1-2 capsules two [...] 4 capsules once or twice daily - ifbloating decrease dose Ther-Biotic Factor 4 (Bifidobacterium Complex) [...] - back off if loose stools One [place] (Pure Encapsulation) Take 2 capsules by mouth daily with food. UltraNutrient (Pure Encapsulations) 3BID 3 capsules twice a day with meals thyroid, pork, (NATURE-THROID) 97.5 mg tab Take 97.5 mg by mouth once daily. No current facility-administered medications on file prior to visit. PAST MEDICAL HISTORY Diagnosis Date Arrhythmia irregular heart rate-several yrs ago-PVC's Esophageal reflux 05/24/2005 Lichen sclerosus PERS HX OF THYROID MALIGNANCY 05/24/2005 Snoring PAST SURGICAL HISTORY Procedure Laterality Date COLONOSCOPY FLX DX W/COLLJ SPEC WHEN PFRMD 2003 Colonoscopy COLONOSCOPY FLX DX W/COLLJ SPEC WHEN PFRMD 10/01/14 Colonoscopy EGD TRANSORAL BIOPSY SINGLE/MULTIPLE 03/09/06 Hiatal hernia/gastritis/esophagitis ESOPHAGOGASTRODUODENOSCOPY TRANSORAL DIAGNOSTIC 10/01/14 EGD LAPS SURG CHOLECYSTECTOMY W/CHOLANGIOGRAPHY 03/12/06 PAST SURGICAL HISTORY OF 03/12/2006 transvaginal sling REMOVAL SKN TAGS DIRECTOR CHECK FIBRQ TAGS ANY AREA UPW/15 03/18/11 Ablation skin tags/ shave bx x 2 S SLING BLADDER SALPINGO-OOPHORECTOMY COMPL/PRTL UNI/BI SPX 10/25/00 Salpingo-oophorectomy THYROIDECTOMY TOTAL/COMPLETE 07/19/01 For Cancer THYROIDECTOMY TOTAL/COMPLETE TOTAL ABDOMINAL HYSTERECT W/WO RMVL TUBE OVARY 10/25/00 Hysterectomy, FIDE for fibroids and abnormal menstruation Social History Tobacco Use Smoking status: Never Smokeless tobacco: Never Substance Use Topics Alcohol use: Yes Comment: Occaisional Drug use: No Functional Medicine Timeline PHQ-9 Score: 9 (07/12/2022 5:29 PM) (0-4) minimal depression (5-9) mild depression (10-14) moderate depression (15-19) moderately severe depression (20-27) severe depression PROMIS Global Health - (T-Scores - the mean of general population = 50. Five points is a clinicallymeaningful difference.) 12/11/2017 07/12/2022 07/12/2022 Physical T-Score 37.4 32.4 32.4 Mental T-Score 53.3 59 December Visit- Patient goals: See below Subjective: 1. Coughing 2. Port flush 3. TSH repeat - check today 4. Wants a hand specialist - ask PCP 5. Bad cold after going to [place] (saw grand son) - started sore throat, Gargle and swallow argetyn (1 tBLSP a few times a day), honey lemon tea (warm) 6. C. Difficile (tx [address] Miki henriquez, vanco, dificid) Apr Visit- Patient goals: 1. Walking 2. Left hand use Subjective: C/o cough more of an issue - keeping her from speaking easily. Better when she was in [place]. Had illness and Dr. Livingston felt it was related to a virus she alreadyhas. Cough is related to sense of smell, eating and talking. Currently on Doxy, augmentin (off clinda), valtrex, diflucan - since November. Fungal rashmuch better, hair is darker. hasnt done hormones, but did saw palmetto due to testosterone Thyroid med was changed to armour and TSH very high needed and increased dose - helped. December Visit- Patient goals: 1. Walking 2. 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 Having many amalgams removed (biologic dentist) and on his protocol (DMSA), Vit C, GSE, COQ10, minerals, probiotics, EPA, GLA + DMSA 500mg, Repeat for 2 days after procedure. He has her on high dose doxy, Augmentin for 2 months then diflucan 3 days a week. Medication orders placed this encounter jouwscbwihXXBBV-ynrgna-lgzyomwlq (BMX 1:1:1) 1:1:1 liqd Sig: Take 5 mL by mouth three times daily. Dispense: 1 Bottle Refill: 0 Nystatin 50,000 Unit (atomized) nasal spray --> (Scottie Maynard will call you) Sig: dissolve 1 cap (90935 units)/spray: use 2 sprays in each nostril twice daily Dispense: 60 capsule Refill: 2 Additional Recommendations Today's plan - Cough - used PPI and it helped, GI revive didn't help 1 TBSP/d NEED to go up higher. BHRT (E/P) not started (mammo in a few weeks) - go ahead and start hormones. Start supplements one at a time, Start with angelica for mold + saccharomyces Argentyn for sore throat Repeat MARCoNS and c/w gliotoxin tx Carla Magana pHd appt Next visit - review MARCMarlin started nystatin nasal spray? ?Beyond Balance Tox-ease add ?glutamine Future 23&me, BHRT Treatments: (binders-->argentyn nasal spray 1 spray BID-->BEGS (nasal biofilm) ---->antifungal nasal spray (nystatin, keto, or AMB)-->NAC(250-500mg oral QD or BID)-->oral antifungal(vrutzaqp778,000 u orally, 1-4x a day, diflucan 100mg once every OTHER week) --> oral biofilm buster Today's Jul 18, 2022 Subjective: In 2011, came back from [place] with high fever and foot drop Muscle spasms in one leg, then the other. Eventually, left hand didn't have fine motor control (left-hand dominant) Speech has been recent, in past couple of years. Was speaking well until November 2018 Another colleague got a brain tumor usually found in peds. Didn't have any colds for a couple of years after that. Positive for Anaplasma Metals: All fillings out treated with IV chelation through Dr. Portage, took about 3-4 months. Completed taht. Also Did 5 months of IV antibiotics with Dr. Livingston, used port. Had C diff during the IV treatment. Port was removed because antibiotics didn't seem to be helping. Dr. Livingston kept treating with herbs and plant supplements. Also had voriconazole treatments, because of high mycotoxin levels. She was also on amphotericin nasal and oral, still taking the oral. 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 Seemed to get C diff again, so added Flagyl. then Had C diff, Thinks she may have had C diff was treated with Then had food poisoning Asked for Rifampin, and felt better on this, too For a long time, had rash on forearm. In the middle of summer, February/March, had a cyst on her back that became inflaed, pus-filled. It was so inflamed it couldn't be extracted; cipro cleared this up. Rifampin was the most effective to clear her symjptoms. Currently symptoms: Muscle weakness, lack of balance, fatigue, emotionality, speech difficulty Left eye is blurry Intermittent nerve pain in her feet Muscle spasms, mostly in legs, Restless legs Joint pains in knees, gideon right Hip/shoulder pains which affect sleep Has had occipital nerve pain, in back of head. Skin rash, intermittent; rifampin was helpful for this. Rifampin helped BM's, less loose, and joint pains idd improve Since the Rifampin, has been constipated Taking raw psyllium husks in her smoothie. She did just do a cologuard Objective: There were no vitals taken for this visit. Bioelectrical Impedance Analysis Results by [employer] Recent Results from: 09/06/16 at 10:24 AM BMI: 26.85 kg/m General Test Result Range Phase Angle (PA) 9.2 Min: 5.8 Mean: 6.7 Max: 7.6 Above max by 1.6 Basal Metabolic Rate (BMR) 1675 Min: 1172 Mean: 1327 Max: 1482 Above max by 193 Fat & Fat Free Mass Test Result Range Fat (lbs) 56.8 Min: 39.6 Mean: 62.2 Max: 84.8 Lower than midpoint by 5.4 (38.1% of rng) Fat % 32 Min: 31.7 Mean: 38.3 Max: 44.9 Lower than midpoint by 6.3 (2.3% of rng) Fat Free Mass (FFM) lbs 120.7 Min: 81.5 Mean: 95.8 Max: 110.1 Above max by 10.6 Total Body Water Test Result Range TBW (lbs) 89.8 Min: 60.9 Mean: 71.7 Max: 82.5 Above max by 7.3 TBW % of FFM 74.4 Min: 73.2 Mean: 74.7 Max: 76.2 Lower than midpoint by .3 (40% of rng) Intracellular Water Test Result Range ICW (lbs) 47.3 Min: 33.1 Mean: 37.7 Max: 42.3 Above max by 5 ICW % of FFM 39.2 Min: 38 Mean: 39.5 Max: 41 Lower than midpoint by .3 (40% of rng) Extracellular Water Test Result Range ECW (lbs) 42.5 Min: 27.6 Mean: 34 Max: 40.4 Above max by 2.1 ECW % of FFM 35.2 Min: 33.5 Mean: 35.2 Max: 36.9 At the midpoint Physical Exam: General: A&Ox4, nad CURRENT Functional Medicine Assessment/ PLAN Assessment Assessment: 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 Mold exposure in her work bldg Stress - full prof [employer], good repuation, Reprimanded for a good deed then had to keep workingwith the person who betrayed her - occurred prior to the Motor neuron disorder MSIDS Apr Trial of Progesterone, Estradiol (get mammogram) Trial of prilosec for 4 days, if helps cough and voice. If helps then use GI revive 2 TBLSP twice aday for 2 months. Will start angelica trial for mold exposure. Start BEGS and nystatin nasal spray ON NAD nasal spray - not helping much LDN helped after a month which resolved. Dec 2017 [facility] [facility] Leanna ISAAC note Postmenopausal - Address w/ Dr. Livingston Cough - try Quercitin On AA powder from Scottie Maynard and NAD CIRS - was sick with angelica, On Argentyn Jul 2017 visit- reviewed [place] High dose GSH made her sick for a few months, felt badly on DMSA, worse with 2 saccharomyces C/w mold -gliotoxin gentle treatment Tx: Dr. Damon w/ EDTA IV Nutritional Assessment Nutreval Jun 2017 Most high need, high lipid peroxides/8OHDG Plan: Ultranutrient Digestive Function GERD improved w/diet (no sugar) Constipation - better off diflucan GI effects March 2017 - Dysbiosis Elevated fecal fat/LCF A, cluster O, phospholipids as per Very low short-chain fatty acids Commensal bacteria-18 of 23 elevated with high Lactobacillus and Escherichia coli, low bifidobacterium Additional bacteria Bacillus species 4+, Klebsiella pneumonia 4+ both sensitive to Bactrim Plan: Ox bile acids, Biotagen, Therbiotic Factor 4, Bactrim for 10 days with Saccharomyces B Inflammation/Immune Function 2000 Thyroid cancer Dry cough - since May 2016 (comes/goes) Itchy/dry skin jock itch persists - 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 Energy Production Motor neuron disorder - leg weakness Fatigue - better with B12 shots Foot/calf cramps Detoxification Function WOLFF Many amalgams 2017 KANATAK repeat compared to November 2016 after 13 IV EDTA-lead dropped from 27-->10.2, mercury increased from 14.36 --> 19.73 (patient felt good on EDTA and rash cleared) Tx: Dr. Damon w/ EDTA IV Hormonal Assessment Insomnia - hot flash 5am Hot flashes - black cohosh helps the intensity Hypothyroid dt cancer - brittle nails Postmenopausal - Address w/ Dr. Livingston Structural Assessment OA knees Swollen ankles Plan and Lifestyle Prescription Plan/Instructions/Resources: Let's repeat mycotoxin test: GPL mycotoxin testing: Take liposomal glutathione by [employer] 500mg twice daily for 3 days, then collect urine 30-60 minutes after second dose on third day. We'll add GPL-tox to test for synthetic toxins as well. Microbial OAT test is urine test for current colonization of mold/bacteria. This can be added to the same urine Stool test through [facility]. Nutreval kit is first-morning blood and urine; you can likely have this drawn at [facility]. Dr. Stiven Marte, neurologist, treats Lyme. Future Plans: Follow up: Please schedule a follow up visit with the following Caregivers: Provider: 8weeks LIFESTYLE PRESCRIPTION Functional Nutrition: Personalized Elimination Food Plan Gluten-free and Dairy-free Food Plan Sleep: Sleep goal for most adults is a minimum of 7-9 hours nightly. Exercise Prescription: Numerous studies confirm the benefits of regular moderate aerobic exercise (walking, swimming, elliptical machine, cycling, etc.) for 30 min 5 days per week (150 min goal). Stress Management: 1) Please look into this Heart Rate Variability BioFeedback Tool (www.heartmath.org). 2) A regular, daily meditation practice of at least 15-20 minutes will change your brain--as well as your genes! Behavioral Health Therapist: If I recommended counseling or individual therapy, please schedule an individual appointment with our Functional Medicine Behavioral Health Therapist , Rudi David, after your visit today. The Behavioral Health Therapist helps patients identify and understand feelings and behaviors, experience the process of making positive change, and gain healthy coping skills. 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 [phone]. Smart phone apps to begin a meditative practice: Headspace (free for first 10 days) Insight Meditation Timer- (Free)-Great all-around belle to use for guided meditations of many different types and lengths or just to use as a tool to time and track your meditation practice. This is myabsolute favorite! Calm- (Free) Walking Meditations-($1.99)- Get your walk AND meditation done together. A good way to start out for individuals who feel they just can't sit still to begin a meditative practice. Medications/Supplements Recommended: No orders of the defined types were placed in this encounter. I recommend the supplements from the [facility] at [email or web address] ([email or web address][employer]/ as we have thoroughly evaluated the research and use only highest quality supplements. During the next 6-8 weeks you'll be working on your diet plan discussed with our desk manager, allowing for gentle detoxification and decreasing inflammation - while we are gathering your lab resultsand combining those with your complete history to formulate a very personalized treatment plan. LAB results: Due to the complexity of the testing performed, we are not able to review labs via [employer] or over the phone, but please know, if any of your labs are critical we will contact you. Otherwise, we will review all your labs at your next visit. We will go over a lot of information during your follow up visit - so please be well-rested and youmay want to bring someone with you, if possible. Also make sure to schedule with the desk manager (this will not happen automatically) as you did with your first visit so that she can review nutritional aspects of your treatment plan. By your 3rd visit, as things are improving, we will likely transition you to one of our very capable Certified Nurse Practitioners/Physician Assistants for further follow-up. Potential future labs: Any [facility] labs ordered take about 4 weeks to return. Do them as soon as possible so that we have the results before your next appointment. You can access them on the [facility] website and it can be beneficial if you review them prior to your next visit. www.[employer].net. Read about NutrEval if this was ordered. Time spend with patient: I spent 30 minutes in preparation for the visit, reviewing labs with the patient, charting the SOAPelements, ordering new labs and/or referrals, and explaining the plan to the patient. 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 Irritable bowel syndrome with both constipation and diarrhea Dysphagia, unspecified type Dysarthria Gait instability Abnormality of gait H/O Clostridium difficile infection Personal history of other infectious and parasitic disease [facility] Diagnosis Motor neuron disease (HCC)- Primary Amyotrophic lateral sclerosis documented in this encounter [facility] note* Diagnosis Encounter for person encountering health services- Primary [facility]* Diagnosis Multi-system degeneration of the autonomic nervous system [facility] Diagnosis Candidal enteritis- Primary Candidiasis of the intestine Mold exposure Contact with and (suspected) exposure to mold Allergic fungal sinusitis Other and unspecified mycoses Vitamin deficiency Unspecified vitamin deficiency [facility]* Diagnosis Allergic fungal sinusitis Other and unspecified mycoses documented in this encounter [facility] noteNo assessment information [facility]WW[facility] Work Phone: Evaluation note* Diagnosis Intestinal dysbiosis- Primary Non-seasonal allergic rhinitis due to fungal spores Motor neuron disease (HCC) Amyotrophic lateral sclerosis History of Lyme disease Personal history of other infectious and parasitic disease documented in this encounter [facility] note* Diagnosis Candidal enteritis Candidiasis of the intestine documented in this encounter [facility] note* Diagnosis Onset Date Resolution Status Osteoporosis chronic Post-operative hypothyroidism chronic Thyroid cancer chronic [facility] Work Phone: Evaluation note* Diagnosis Allergic fungal sinusitis- Primary Other and unspecified mycoses Clostridioides difficile carrier [facility] Diagnosis Candidal enteritis Candidiasis of the intestine [facility] Diagnosis Motor neuron disease (HCC)- Primary Amyotrophic lateral sclerosis Impaired ambulation Muscle spasticity Spasm of muscle Impaired flexibility of lower extremity Abnormality of gait Right leg pain Pain in limb [facility] Diagnosis Motor neuron disease (HCC)- Primary Amyotrophic lateral sclerosis Impaired ambulation Muscle spasticity Spasm of muscle Impaired flexibility of lower extremity Abnormality of gait Right leg pain Pain in limb [facility] Diagnosis Motor neuron disease (HCC)- Primary Amyotrophic lateral sclerosis Impaired ambulation Muscle spasticity Spasm of muscle Impaired flexibility of lower extremity Abnormality of gait Right leg pain Pain in limb [facility] Diagnosis Motor neuron disease (HCC)- Primary Amyotrophic lateral sclerosis Impaired ambulation Muscle spasticity Spasm of muscle Impaired flexibility of lower extremity Abnormality of gait Right leg pain Pain in limb [facility] Diagnosis Motor neuron disease (HCC)- Primary Amyotrophic lateral sclerosis Impaired ambulation Muscle spasticity Spasm of muscle Impaired flexibility of lower extremity Abnormality of gait Right leg pain Pain in limb [facility] Diagnosis Motor neuron disease (HCC)- Primary Amyotrophic lateral sclerosis Impaired ambulation Muscle spasticity Spasm of muscle Impaired flexibility of lower extremity Abnormality of gait Right leg pain Pain in limb [facility] Diagnosis Motor neuron disease (HCC)- Primary Amyotrophic lateral sclerosis Impaired ambulation Muscle spasticity Spasm of muscle Impaired flexibility of lower extremity Abnormality of gait Right leg pain Pain in limb [facility] Diagnosis Motor neuron disease (HCC)- Primary Amyotrophic lateral sclerosis Impaired ambulation Muscle spasticity Spasm of muscle Impaired flexibility of lower extremity Abnormality of gait Right leg pain Pain in limb [facility] Diagnosis 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 Motor neuron disease (HCC) Amyotrophic lateral sclerosis History of Lyme disease Personal history of other infectious and parasitic disease [facility] Diagnosis Motor neuron disease (HCC)- Primary Amyotrophic lateral sclerosis Impaired ambulation Muscle spasticity Spasm of muscle Impaired flexibility of lower extremity Abnormality of gait Right leg pain Pain in limb [facility] Diagnosis 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 [facility] Diagnosis Motor neuron disease (HCC)- Primary Amyotrophic lateral sclerosis Impaired ambulation Muscle spasticity Spasm of muscle Impaired flexibility of lower extremity Abnormality of gait Right leg pain Pain in limb [facility] Diagnosis 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 [facility] Diagnosis 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 Chronic pain of right knee [facility] Diagnosis Motor neuron disease (HCC)- Primary Amyotrophic lateral sclerosis Impaired ambulation Muscle spasticity Spasm of muscle Impaired flexibility of lower extremity Abnormality of gait Right leg pain Pain in limb [facility] Diagnosis Lyme disease- Primary Mold exposure Contact with and (suspected) exposure to mold Chronic constipation Unspecified constipation [facility] Diagnosis 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 [facility] Diagnosis 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 [facility] Diagnosis 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 Pseudobulbar affect [facility] Diagnosis 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 [facility] Diagnosis Motor neuron disease (HCC)- Primary Amyotrophic lateral sclerosis Impaired ambulation Muscle spasticity Spasm of muscle Impaired flexibility of lower extremity Abnormality of gait Right leg pain Pain in limb [facility] Diagnosis 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 [facility] Diagnosis Motor neuron disease (HCC)- Primary Amyotrophic lateral sclerosis Impaired ambulation Muscle spasticity Spasm of muscle Impaired flexibility of lower extremity Abnormality of gait Right leg pain Pain in limb [facility] Diagnosis Motor neuron disease (HCC)- Primary Amyotrophic lateral sclerosis Primary lateral sclerosis (HCC) Primary lateral sclerosis Impaired ambulation Muscle spasticity Spasm of muscle Impaired flexibility of lower extremity Abnormality of gait Right leg pain Pain in limb [facility] Diagnosis Decreased independence with activities of daily living- Primary Other psychological or physical stress, not elsewhere classified Primary lateral sclerosis (HCC) Primary lateral sclerosis Decreased coordination Lack of coordination [facility] Diagnosis Dietary counseling and surveillance- Primary Dietary surveillance and counseling Primary lateral sclerosis (HCC) Primary lateral sclerosis [facility] Diagnosis Primary lateral sclerosis (HCC) Primary lateral sclerosis [facility] Diagnosis Dysarthria- Primary Primary lateral sclerosis (HCC) Primary lateral sclerosis Dysphagia, unspecified type [facility] Diagnosis Primary lateral sclerosis (HCC) Primary lateral sclerosis [facility] Diagnosis 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 [facility] Diagnosis Motor neuron disease (HCC)- Primary Amyotrophic lateral sclerosis Impaired ambulation Muscle spasticity Spasm of muscle Impaired flexibility of lower extremity Abnormality of gait Right leg pain Pain in limb [facility] Diagnosis Decreased coordination- Primary Lack of coordination Primary lateral sclerosis (HCC) Primary lateral sclerosis Decreased independence with activities of daily living Other psychological or physical stress, not elsewhere classified [facility] Diagnosis 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 [facility] Diagnosis Motor neuron disease (HCC)- Primary Amyotrophic lateral sclerosis Impaired ambulation Muscle spasticity Spasm of muscle Impaired flexibility of lower extremity Abnormality of gait Right leg pain Pain in limb [facility] Diagnosis Motor neuron disease (HCC)- Primary Amyotrophic lateral sclerosis Impaired ambulation Muscle spasticity Spasm of muscle Impaired flexibility of lower extremity Abnormality of gait Right leg pain Pain in limb [facility] Diagnosis Dysarthria- Primary [facility] Diagnosis 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 [facility] Diagnosis Motor neuron disease (HCC)- Primary Amyotrophic lateral sclerosis Impaired ambulation Muscle spasticity Spasm of muscle Impaired flexibility of lower extremity Abnormality of gait Right leg pain Pain in limb [facility] Diagnosis Diarrhea, unspecified type- Primary [facility] Diagnosis Motor neuron disease (HCC)- Primary Amyotrophic lateral sclerosis Impaired ambulation Muscle spasticity Spasm of muscle Impaired flexibility of lower extremity Abnormality of gait Right leg pain Pain in limb [facility]* Diagnosis Spasticity- Primary Abnormal involuntary movements Primary lateral sclerosis (HCC) Primary lateral sclerosis Pseudobulbar affect Spastic dysarthria Dysarthria [facility]* Diagnosis 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 Acute pain of right knee [facility] Diagnosis Motor neuron disease (HCC)- Primary Amyotrophic lateral sclerosis Impaired ambulation Muscle spasticity Spasm of muscle Impaired flexibility of lower extremity Abnormality of gait Right leg pain Pain in limb [facility]* Diagnosis 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 [facility]* Diagnosis 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 Acute pain of right knee [facility] Diagnosis Arthritis of right knee- Primary Unspecified arthropathy, lower leg Primary lateral sclerosis (HCC) Primary lateral sclerosis [facility] Diagnosis Motor neuron disease (HCC)- Primary Amyotrophic lateral sclerosis Impaired ambulation Muscle spasticity Spasm of muscle Impaired flexibility of lower extremity Abnormality of gait Right leg pain Pain in limb [facility] Diagnosis 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 [facility]* Diagnosis Arthritis of right knee- Primary Unspecified arthropathy, lower leg Arthritis of right knee Unspecified arthropathy, lower leg [facility]* Diagnosis Motor neuron disease (HCC)- Primary Amyotrophic lateral sclerosis Impaired ambulation Muscle spasticity Spasm of muscle Impaired flexibility of lower extremity Abnormality of gait Right leg pain Pain in limb Arthritis of right knee Unspecified arthropathy, lower leg [facility]* Diagnosis Motor neuron disease (HCC)- Primary Amyotrophic lateral sclerosis Arthritis of right knee Unspecified arthropathy, lower leg [facility]* Diagnosis 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 Arthritis of right knee Unspecified arthropathy, lower leg [facility]* Diagnosis Motor neuron disease (HCC)- Primary Amyotrophic lateral sclerosis Impaired ambulation Muscle spasticity Spasm of muscle Impaired flexibility of lower extremity Abnormality of gait Right leg pain Pain in limb Arthritis of right knee Unspecified arthropathy, lower leg [facility]* Diagnosis ALS (amyotrophic lateral sclerosis) (HCC)- Primary Amyotrophic lateral sclerosis Arthritis of right knee Unspecified arthropathy, lower leg [facility]* Diagnosis Motor neuron disease (HCC)- Primary Amyotrophic lateral sclerosis Impaired ambulation Muscle spasticity Spasm of muscle Impaired flexibility of lower extremity Abnormality of gait Right leg pain Pain in limb Arthritis of right knee Unspecified arthropathy, lower leg [facility]* Diagnosis 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 [facility] Diagnosis Motor neuron disease (HCC)- Primary Amyotrophic lateral sclerosis Impaired ambulation Muscle spasticity Spasm of muscle Impaired flexibility of lower extremity Abnormality of gait Right leg pain Pain in limb [facility] Diagnosis 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 [facility]* Diagnosis Spasticity- Primary Abnormal involuntary movements Primary lateral sclerosis (HCC) Primary lateral sclerosis Pseudobulbar affect [facility] Diagnosis Motor neuron disease (HCC)- Primary Amyotrophic lateral sclerosis Impaired ambulation Muscle spasticity Spasm of muscle Impaired flexibility of lower extremity Abnormality of gait Right leg pain Pain in limb [facility] Diagnosis Primary lateral sclerosis (HCC) Primary lateral sclerosis Pseudobulbar affect [facility]* Diagnosis Motor neuron disease (HCC)- Primary Amyotrophic lateral sclerosis Impaired ambulation Muscle spasticity Spasm of muscle Impaired flexibility of lower extremity Abnormality of gait Right leg pain Pain in limb [facility]* Diagnosis 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 [facility]* Diagnosis Motor neuron disease (HCC)- Primary Amyotrophic lateral sclerosis Impaired ambulation Muscle spasticity Spasm of muscle Impaired flexibility of lower extremity Abnormality of gait Right leg pain Pain in limb [facility] Diagnosis Motor neuron disease (HCC)- Primary Amyotrophic lateral sclerosis Impaired ambulation Muscle spasticity Spasm of muscle Impaired flexibility of lower extremity Abnormality of gait Right leg pain Pain in limb [facility] Diagnosis Motor neuron disease (HCC)- Primary Amyotrophic lateral sclerosis Impaired ambulation Muscle spasticity Spasm of muscle Impaired flexibility of lower extremity Abnormality of gait Right leg pain Pain in limb [facility] Diagnosis Acute pain of right knee [facility]* Diagnosis 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 documented in this encounter [facility] note* Diagnosis Family history of bicuspid aortic valve- Primary Family history of other cardiovascular diseases Hyperlipidemia, unspecified hyperlipidemia type documented in this encounter [facility] note* Diagnosis Primary lateral sclerosis (HCC) Primary lateral sclerosis Pseudobulbar affect documented in this encounter [facility] for referral (narrative)* Outpatient Procedure (Routine) - Authorized Specialty Diagnoses / Procedures Referred By Jamin lomeli Referred To Contact [facility] [place] Diagnoses Congenital cardiovascular disorder Procedures ECHO SPECIALIST COMPLEX ADULT CONGENITAL ECHO TTHRC R-T 2D W/WOM-MODE COMPL SPEC&COLR D Aixa Ramirez MD [address] [place] [address] [place] [id number] Referral ID Status Reason Start Date Expiration Date Visits Requested Visits Authorized [id number] Authorized Auto-Generat ed Referral 01/01/2024 12/31/2024 1 1 * Outpatient Procedure (Routine) - Authorized Specialty Diagnoses / Procedures Referred By Jamin lomeli Referred To Contact [facility] Diagnoses Congenital cardiovascular disorder Procedures ECG COMPLETE ECG ROUTINE ECG W/LEAST 12 LDS W/I&R Aixa Ramirez MD [id number] [place] [address] Referral ID Status Reason Start Date Expiration Date Visits Requested Visits Authorized [id number] Authorized Auto-Generat ed Referral 01/01/2024 12/31/2024 1 1 [facility] for referral (narrative)* Diagnostic Procedure Only (Routine) - Pending Review Specialty Diagnoses / Procedures Referred By Jamin lomeli Referred To Contact XR IMAGING Diagnoses Acute pain of right knee Procedures XR KNEE LIMITED 2V AP/LAT RIGHT RADIOLOGIC EXAMINATION KNEE 1/2 VIEWS Cori Hope R Ac [address] [place] [address] [place] [address] Referral ID Status Reason Start Date Expiration Date Visits Requested Visits Authorized [id number] Pending Review Auto-Generat ed Referral 01/31/2024 03/01/2025 1 1 [facility] for referral (narrative)* Diagnostic Procedure Only (Routine) - Closed Specialty Diagnoses / Procedures Referred By Contac t Referred To Contact XR IMAGING Diagnoses Acute pain of right knee Procedures XR KNEE LIMITED 2V AP/LAT RIGHT RADIOLOGIC EXAMINATION KNEE 1/2 VIEWS Cori Hope R Ac [address] [facility] [address] [place] [address] Referral ID Status Reason Start Date Expiration Date V isits Requested Visits Authorized [id number] Closed Auto-Generate d Referral 01/31/2024 03/01/2025 1 1 [facility] for referral (narrative)No reason for referral information [facility]WWex[facility] Narrative* Diagnostic Procedure Only (Routine) - Closed Specialty Diagnoses / Procedures Referred By Contac t Referred To Contact XR IMAGING Diagnoses Acute pain of right knee Procedures XR KNEE LIMITED 2V AP/LAT RIGHT RADIOLOGIC EXAMINATION KNEE 1/2 VIEWS Cori Hope R Ac [address] [place] [address] [place] [address] Referral ID Status Reason Start Date Expiration Date V isits Requested Visits Authorized [id number] Closed Auto-Generate d Referral 01/31/2024 03/01/2025 1 1 [facility] Summary Purpose Family History No Family History Records Found Relationship Condition Age at Onset Recorded Date/T nancy mother Alcoholism Unknown Arthritis Unknown Dementia Unknown Disorder of thyroid Unknown Ulcerative lesion Unknown grandfather Alcoholism Unknown Cardiac disease Unknown Malignant neoplasm of colon Unknown brother Irritable bowel syndrome Unknown grandmother Malignant neoplasm of cervix Unknown Cerebrovascular accident (CVA) Unknown father Cardiac disease Unknown Advance Directives No Advanced Directives Records Found Advance Directive Response Recorded Date/ Time Living Will Yes October 29 2:35pm Power of Validation Scientist Yes October 29, 2021 2:35pm Advance Directive Response Recorded Date/ Time Living Will Yes February 26th, 2 022 1:35pm Power of Validation Scientist Yes October 29, 2021 1:35pm Chief Complaint and Reason for Visit Chief Complaint Establish Care, Pt w ill complete Forms online FLU SHOT PRIMARY LATERAL SCLEROSES. RX HERE Reason for Visit Post-operative hypot hyroidism Primary lateral scleroses Immunization declined Screening for colon cancer Establishing care with new doctor, encounter for Colitis Post-menopausal Screening for breast cancer Chief Complaint Establish Care, Pt w ill complete Forms online FLU SHOT POST MENOPAUSAL, SCREENING PRIMARY LATERAL SCLEROSES. RX HERE Reason for Visit Post-operative hypot hyroidism Primary lateral scleroses Immunization declined Screening for colon cancer Establishing care with new doctor, encounter for Colitis Post-menopausal Screening for breast cancer Chief Complaint PRIMARY LATERAL SCLE ROSES. RX HERE PRIMARY LATERAL SCLEROSES. RX HERE Chief Complaint PRIMARY LATERAL SCLE ROSES. 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) Dysphagia, unspecified type Procedures CONSULT FOR ACUPUNCTURE Daniel Paez DO [address] [place] [address] [place] [address] [place] [id number] Referral ID Status Reason Start Date Expiration Date Visits Requested Visits Authorized [id number] Ref Not Required PCP Requested Referral 2 07/18/2023 1 1 Specialty Diagnoses / Procedures Referred By Jamin lomeli Referred To Contact Diagnoses Multi-system degeneration of the autonomic nervous system Procedures MRI BRAIN WITHOUT CONTRAST VT MRI BRAIN Stiven Marte MD [address] [place] [address] [facility] [address] [address] Referral ID Status Reason Start Date Expiration Date Visits Re quested Visits Authorized [id number] Closed 09/28/2022 10/23/2023 1 1 Specialty Diagnoses / Procedures Referred By Jamin lomeli Referred To Contact Diagnoses Motor neuron disease (HCC) History of Lyme disease Procedures CONSULT FOR ACUPUNCTURE Daniel Paez DO [address] [place] [address] [place]oya R [address] [place] [address] Referral ID Status Reason Start Date Expiration Date Visits Requested Visits Authorized [id number] Ref Not Required PCP Requested Referral 03/13/2023 03/12/2024 1 1 Specialty Diagnoses / Procedures Referred By Contac t Referred To Contact [facility] Diagnoses Primary lateral sclerosis (HCC) Procedures CONSULT TO SPEECH THERAPY OFFICE/OUTPATIENT [facility] 60 MINUTES Joan Prieto MD [address] [place] [address] [facility] [place] [address] Referral ID Status Reason Start Date Expiration Date Visits Requested Visits Authorized [id number] Pending Review Auto-Generat ed Referral 12/31/2023 12/30/2024 1 1 Specialty Diagnoses / Procedures Referred By Contac t Referred To Contact NEUROMUSCULAR Diagnoses Primary lateral sclerosis (HCC) Procedures CONSULT TO NEUROMUSCULAR NURSE OFFICE/OUTPATIENT [facility] 60 [place] [address] [place] [address] Referral ID Status Reason Start Date Expiration Date Visits Requested Visits Authorized [id number] Authorized PCP Requested Referral 12/31/2023 12/30/2024 1 1 Specialty Diagnoses / Procedures Referred By Contac t Referred To Contact [facility] Diagnoses Primary lateral sclerosis (HCC) Procedures CONSULT TO PHYSICAL THERAPY PHYSICAL THERAPY EVALUATION HIGH COMPLEX 45 [place] [address] [place] [address] [facility] [address] [address] Referral ID Status Reason Start Date Expiration Date Visits Requested Visits Authorized [id number] Pending Review Auto-Generat ed Referral 12/31/2023 12/30/2024 1 1 Specialty Diagnoses / Procedures Referred By Contac t Referred To Contact [facility] Diagnoses Primary lateral sclerosis (HCC) Procedures CONSULT TO DIELECTRIC EMBOSSING MACHINE OPERATOR OCCUPATIONAL THERAPY EVAL HIGH COMPLEX 60 MINS Joan Prieto MD [address] [place] [address] [facility] [address] [address] Referral ID Status Reason Start Date Expiration Date Visits Requested Visits Authorized [id number] Pending Review Auto-Generat ed Referral 12/31/2023 12/30/2024 1 1 Referral ID Status Reason Start Date Expiration Date Visits Requested Visits Authorized [id number] Pending Review Auto-Generat ed Referral 12/31/2023 12/30/2024 1 1 Specialty Diagnoses / Procedures Referred By Contac t Referred To Contact Nutrition Diagnoses Primary lateral sclerosis (HCC) Procedures CONSULT TO NUTRITION THERAPY MEDICAL NUTRITION ASSMT&IVNTJ INDIV EACH 15 PA Joan Prieto MD [address] [place] [address] Referral ID Status Reason Start Date Expiration Date Visits Requested Visits Authorized [id number] Authorized PCP Requested Referral 12/31/2023 12/30/2024 1 4 Specialty Diagnoses / Procedures Referred By Contac t Referred To Contact Diagnoses Primary lateral sclerosis (HCC) Procedures CONSULT TO NEUROMUSCULAR MEDIC OFFICE/OUTPATIENT [facility] 60 MINUTES Joan Prieto MD [address] [place] [address] Referral ID Status Reason Start Date Expiration Date Visits Requested Visits Authorized [id number] Authorized PCP Requested Referral 03/31/2024 12/30/2024 1 1 Specialty Diagnoses / Procedures Referred By Contac t Referred To Contact [facility] Diagnoses Primary lateral sclerosis (HCC) Procedures CONSULT - SPASTICITY EVAL OFFICE/OUTPATIENT [facility] 60 MINUTES Joan Prieto MD [address] [place] [address] [facility] [address] [address] Referral ID Status Reason Start Date Expiration Date Visits Requested Visits Authorized [id number] Authorized PCP Requested Referral Auto-Generate d Referral 12/31/2023 12/30/2024 1 1 Specialty Diagnoses / Procedures Referred By Contac t Referred To Contact Diagnoses Primary lateral sclerosis (HCC) Pseudobulbar affect Joan Prieto MD [address] [place] [address] Referral ID Status Reason Start Date Expiration Date Visits Re quested Visits Authorized [id number] Closed 1 1 Specialty Diagnoses / Procedures Referred By Contac t Referred To Contact NEUROMUSCULAR Diagnoses Primary lateral sclerosis (HCC) Procedures CONSULT TO NEUROMUSCULAR NURSE OFFICE/OUTPATIENT [facility] 60 MINUTES Antonietta Alcaraz, [address] [place] [address] Referral ID Status Reason Start Date Expiration Date Visits Requested Visits Authorized [id number] Authorized PCP Requested Referral 01/09/2024 01/08/2025 1 1 Specialty Diagnoses / Procedures Referred By Contac t Referred To Contact [facility] Diagnoses Primary lateral sclerosis (HCC) Procedures CONSULT TO PHYSICAL THERAPY PHYSICAL THERAPY EVALUATION HIGH COMPLEX 45 MINS Antonietta Alcaraz DO [address] [place] [address] [facility] [address] [address] Referral ID Status Reason Start Date Expiration Date Visits Requested Visits Authorized [id number] Pending Review Auto-Generat ed Referral 01/09/2024 01/08/2025 1 1 Specialty Diagnoses / Procedures Referred By Contac t Referred To Contact [facility] Diagnoses Primary lateral sclerosis (HCC) Procedures CONSULT TO DIELECTRIC EMBOSSING MACHINE OPERATOR OCCUPATIONAL THERAPY EVAL HIGH COMPLEX 60 MINS Antonietta Alcaraz, [address] [place] [address] [facility] [address] [address] Referral ID Status Reason Start Date Expiration Date Visits Requested Visits Authorized [id number] Pending Review Auto-Generat ed Referral 01/09/2024 01/08/2025 1 1 Specialty Diagnoses / Procedures Referred By Contac t Referred To Contact [facility] Diagnoses Primary lateral sclerosis (HCC) Procedures CONSULT TO SPEECH THERAPY OFFICE/OUTPATIENT [facility] 60 MINUTES Antonietta Alcaraz DO [address] [place] [address] [facility] [address] [address] Referral ID Status Reason Start Date Expiration Date Visits Requested Visits Authorized [id number] Pending Review Auto-Generat ed Referral 01/09/2024 01/08/2025 1 1 Specialty Diagnoses / Procedures Referred By Contac t Referred To Contact Nutrition Diagnoses Primary lateral sclerosis (HCC) Procedures CONSULT TO NUTRITION THERAPY MEDICAL NUTRITION ASSMT&IVNTJ INDIV EACH 15 PA Antonietta Alcaraz DO [address] [place] [address] Referral ID Status Reason Start Date Expiration Date Visits Requested Visits Authorized [id number] Authorized PCP Requested Referral 01/09/2024 01/08/2025 1 4 Specialty Diagnoses / Procedures Referred By Contac t Referred To Contact Diagnoses Primary lateral sclerosis (HCC) Procedures CONSULT TO NEUROMUSCULAR MEDIC OFFICE/OUTPATIENT [facility] 60 MINUTES Antonietta Alcaraz DO [address] [place] [address] Referral ID Status Reason Start Date Expiration Date Visits Requested Visits Authorized [id number] Authorized PCP Requested Referral 01/09/2024 01/08/2025 1 1 Specialty Diagnoses / Procedures Referred By Contac t Referred To Contact [facility] Diagnoses Primary lateral sclerosis (HCC) Procedures CONSULT TO PT/OT WHEELCHAIR EVALUATION OFFICE/OUTPATIENT [facility] 60 MINUTES Antonietta Alcaraz DO [address] [place] [address] [facility] [address] [address] Referral ID Status Reason Start Date Expiration Date Visits Requested Visits Authorized [id number] Authorized Auto-Generat ed Referral 01/09/2024 01/08/2025 1 1 Specialty Diagnoses / Procedures Referred By Contac t Referred To Contact XR IMAGING Diagnoses Primary lateral sclerosis (HCC) Procedures XR MODIFIED BARIUM SWALLOW W SPEECH THERAPY RADIOLOGIC EXAM SWALLOW FUNCTION CONTRAST STUDY Antonietta Alcaraz DO [address] [place] [address] [place] [id number] Referral ID Status Reason Start Date Expiration Date Visits Requested Visits Authorized [id number] Pending Review Auto-Generat ed Referral 01/09/2024 02/07/2025 1 1 Specialty Diagnoses / Procedures Referred By Contac t Referred To Contact Pain Management Diagnoses Primary lateral sclerosis (HCC) Procedures CONSULT TO PAIN MGT OFFICE/OUTPATIENT [facility] 60 MINUTES Antonietta Alcaraz DO [address] [place] [phone] Referral ID Status Reason Start Date Expiration Date Visits Requested Visits Authorized [id number] Authorized PCP Requested Referral 01/09/2024 01/08/2025 1 1 Specialty Diagnoses / Procedures Referred By Contac t Referred To Contact Ent - Otolaryngology Diagnoses Spastic dysarthria Procedures CONSULT TO ENT OFFICE/OUTPATIENT [facility] 60 MINUTES Lia Hope, PICKER MACHINE OPERATOR.DEPUTY FIRE MARSHAL [address] [place] [address] Referral ID Status Reason Start Date Expiration Date Visits Requested Visits Authorized [id number] Authorized PCP Requested Referral 01/30/2024 01/29/2025 1 1 Referral ID Status Reason Start Date Expiration Date Visits Re quested Visits Authorized [id number] Closed 1 1 Specialty Diagnoses / Procedures Referred By Contac t Referred To Contact [facility] Procedures CARDIOVASCULAR MEDICINE OP FOLLOW UP APPT ORDER Aixa Ramirez MD [address] [place] [phone] [facility] [place] [address] [place], [place] [address] Referral ID Status Reason Start Date Expiration Date Visits Requested Visits Authorized [id number] Ref Not Required PCP Requested Referral 06/20/2025 1 1 Health Concerns Infection Onset Date Last Indicated Resolved Time C. difficile 08/08/2023 08/08/2023 Additional Source Comments INFORMATION SOURCE (unrecogn ized section and content) DATE CREATED AUTHOR 06/17/2019 [facility] DATE CREATED AUTHOR AUTHOR'S ORGANIZ ATION 09/12/2019 [facility] [place] DATE CREATED AUTHOR AUTHOR'S ORGANIZ ATION 11/20/2019 [facility] DATE CREATED AUTHOR AUTHOR'S ORGANIZ ATION 03/25/2020 [facility] DATE CREATED AUTHOR AUTHOR'S ORGANIZ ATION 06/26/2021 [facility] DATE CREATED AUTHOR AUTHOR'S ORGANIZ ATION 10/23/2021 [facility] DATE CREATED AUTHOR AUTHOR'S ORGANIZ ATION 06/08/2023 [facility] DATE CREATED AUTHOR AUTHOR'S ORGANIZ ATION 04/06/2024 [facility] DATE CREATED AUTHOR AUTHOR'S ORGANIZ ATION 08/22/2024 [facility] DATE CREATED AUTHOR AUTHOR'S ORGANIZ ATION 09/24/2024 [facility] DATE CREATED AUTHOR AUTHOR'S ORGANIZ ATION 10/25/2024 [facility] DATE CREATED AUTHOR AUTHOR'S ORGANIZ ATION 05/03/2025 [facility] Goals (unrecognized section and content) Goals may be documented in a n alternate sectionGoals may be documented in an alternate sectionGoals may be documented in an alternate sectionGoals may be documented in an alternate sectionGoals may be documented in an alternate sectionGoals may be documented in an alternate sectionGoals may be documented in an alternate sectionGoals may be documented in an alternate sectionGoals may be documented in an alternate sectionGoals may be documented in an alternate sectionGoals may be documented in an alternate section Source Comments (unrecognize d section and content) In the event this informatio n is protected by the Federal Confidentiality of Alcohol and Drug Abuse Patient Records regulations: The Federal rules restrict any use of the information to criminally investigate or prosecute any alcohol or drug abuse patient.[facility] the event this information is protected by the Federal Confidentiality of Alcohol and Drug Abuse Patient Records regulations: The Federal rules restrict any use of the information to criminally investigate or prosecute any alcohol or drug abuse patient.[facility]In the event this information is protected by the Federal Confidentiality of Alcohol and Drug Abuse Patient Records regulations: The Federal rules restrict any use of the information to criminally investigate or prosecute any alcohol or drug abuse patient.[facility] HospitalIn the event this information is protected by the Federal Confidentiality of Alcohol and Drug Abuse Patient Records regulations: The Federal rules restrict any use of the information to criminally investigate or prosecute any alcohol or drug abuse patient.[facility] HospitalIn the event this information is protected by the Federal Confidentiality of Alcohol and Drug Abuse Patient Records regulations: The Federal rules restrict any use of the information to criminally investigate or prosecute any alcohol or drug abuse patient.[facility] HospitalIn the event this information is protected by the Federal Confidentiality of Alcohol and Drug Abuse Patient Records regulations: The Federal rules restrict any use of the information to criminally investigate or prosecute any alcohol or drug abuse patient.[facility] HospitalIn the event this information is protected by the Federal Confidentiality of Alcohol and Drug Abuse Patient Records regulations: The Federal rules restrict any use of the information to criminally investigate or prosecute any alcohol or drug abuse patient.[facility] HospitalIn the event this information is protected by the Federal Confidentiality of Alcohol and Drug Abuse Patient Records regulations: The Federal rules restrict any use of the information to criminally investigate or prosecute any alcohol or drug abuse patient.[facility] HospitalIn the event this information is protected by the Federal Confidentiality of Alcohol and Drug Abuse Patient Records regulations: The Federal rules restrict any use of the information to criminally investigate or prosecute any alcohol or drug abuse patient.[facility] HospitalIn the event this information is protected by the Federal Confidentiality of Alcohol and Drug Abuse Patient Records regulations: The Federal rules restrict any use of the information to criminally investigate or prosecute any alcohol or drug abuse patient.[facility] HospitalIn the event this information is protected by the Federal Confidentiality of Alcohol and Drug Abuse Patient Records regulations: The Federal rules restrict any use of the information to criminally investigate or prosecute any alcohol or drug abuse patient.[facility] HospitalIn the event this information is protected by the Federal Confidentiality of Alcohol and Drug Abuse Patient Records regulations: The Federal rules restrict any use of the information to criminally investigate or prosecute any alcohol or drug abuse patient.[facility] HospitalIn the event this information is protected by the Federal Confidentiality of Alcohol and Drug Abuse Patient Records regulations: The Federal rules restrict any use of the information to criminally investigate or prosecute any alcohol or drug abuse patient.[facility] HospitalIn the event this information is protected by the Federal Confidentiality of Alcohol and Drug Abuse Patient Records regulations: The Federal rules restrict any use of the information to criminally investigate or prosecute any alcohol or drug abuse patient.[facility] HospitalIn the event this information is protected by the Federal Confidentiality of Alcohol and Drug Abuse Patient Records regulations: The Federal rules restrict any use of the information to criminally investigate or prosecute any alcohol or drug abuse patient.[facility] HospitalIn the event this information is protected by the Federal Confidentiality of Alcohol and Drug Abuse Patient Records regulations: The Federal rules restrict any use of the information to criminally investigate or prosecute any alcohol or drug abuse patient.[facility] HospitalIn the event this information is protected by the Federal Confidentiality of Alcohol and Drug Abuse Patient Records regulations: The Federal rules restrict any use of the information to criminally investigate or prosecute any alcohol or drug abuse patient.[facility] HospitalIn the event this information is protected by the Federal Confidentiality of Alcohol and Drug Abuse Patient Records regulations: The Federal rules restrict any use of the information to criminally investigate or prosecute any alcohol or drug abuse patient.[facility] HospitalIn the event this information is protected by the Federal Confidentiality of Alcohol and Drug Abuse Patient Records regulations: The Federal rules restrict any use of the information to criminally investigate or prosecute any alcohol or drug abuse patient.[facility] HospitalIn the event this information is protected by the Federal Confidentiality of Alcohol and Drug Abuse Patient Records regulations: The Federal rules restrict any use of the information to criminally investigate or prosecute any alcohol or drug abuse patient.[facility] HospitalIn the event this information is protected by the Federal Confidentiality of Alcohol and Drug Abuse Patient Records regulations: The Federal rules restrict any use of the information to criminally investigate or prosecute any alcohol or drug abuse patient.[facility] HospitalIn the event this information is protected by the Federal Confidentiality of Alcohol and Drug Abuse Patient Records regulations: The Federal rules restrict any use of the information to criminally investigate or prosecute any alcohol or drug abuse patient.[facility] HospitalIn the event this information is protected by the Federal Confidentiality of Alcohol and Drug Abuse Patient Records regulations: The Federal rules restrict any use of the information to criminally investigate or prosecute any alcohol or drug abuse patient.[facility] HospitalIn the event this information is protected by the Federal Confidentiality of Alcohol and Drug Abuse Patient Records regulations: The Federal rules restrict any use of the information to criminally investigate or prosecute any alcohol or drug abuse patient.[facility] HospitalIn the event this information is protected by the Federal Confidentiality of Alcohol and Drug Abuse Patient Records regulations: The Federal rules restrict any use of the information to criminally investigate or prosecute any alcohol or drug abuse patient.[facility] HospitalIn the event this information is protected by the Federal Confidentiality of Alcohol and Drug Abuse Patient Records regulations: The Federal rules restrict any use of the information to criminally investigate or prosecute any alcohol or drug abuse patient.[facility] HospitalIn the event this information is protected by the Federal Confidentiality of Alcohol and Drug Abuse Patient Records regulations: The Federal rules restrict any use of the information to criminally investigate or prosecute any alcohol or drug abuse patient.[facility] HospitalIn the event this information is protected by the Federal Confidentiality of Alcohol and Drug Abuse Patient Records regulations: The Federal rules restrict any use of the information to criminally investigate or prosecute any alcohol or drug abuse patient.[facility] HospitalIn the event this information is protected by the Federal Confidentiality of Alcohol and Drug Abuse Patient Records regulations: The Federal rules restrict any use of the information to criminally investigate or prosecute any alcohol or drug abuse patient.[facility] HospitalIn the event this information is protected by the Federal Confidentiality of Alcohol and Drug Abuse Patient Records regulations: The Federal rules restrict any use of the information to criminally investigate or prosecute any alcohol or drug abuse patient.[facility] HospitalIn the event this information is protected by the Federal Confidentiality of Alcohol and Drug Abuse Patient Records regulations: The Federal rules restrict any use of the information to criminally investigate or prosecute any alcohol or drug abuse patient.[facility]In the event this information is protected by the Federal Confidentiality of Alcohol and Drug Abuse Patient Records regulations: The Federal rules restrict any use of the information to criminally investigate or prosecute any alcohol or drug abuse patient.[facility] HospitalIn the event this information is protected by the Federal Confidentiality of Alcohol and Drug Abuse Patient Records regulations: The Federal rules restrict any use of the information to criminally investigate or prosecute any alcohol or drug abuse patient.[facility] HospitalIn the event this information is protected by the Federal Confidentiality of Alcohol and Drug Abuse Patient Records regulations: The Federal rules restrict any use of the information to criminally investigate or prosecute any alcohol or drug abuse patient.[facility] HospitalIn the event this information is protected by the Federal Confidentiality of Alcohol and Drug Abuse Patient Records regulations: The Federal rules restrict any use of the information to criminally investigate or prosecute any alcohol or drug abuse patient.[facility] HospitalIn the event this information is protected by the Federal Confidentiality of Alcohol and Drug Abuse Patient Records regulations: The Federal rules restrict any use of the information to criminally investigate or prosecute any alcohol or drug abuse patient.[facility] HospitalIn the event this information is protected by the Federal Confidentiality of Alcohol and Drug Abuse Patient Records regulations: The Federal rules restrict any use of the information to criminally investigate or prosecute any alcohol or drug abuse patient.[facility] HospitalIn the event this information is protected by the Federal Confidentiality of Alcohol and Drug Abuse Patient Records regulations: The Federal rules restrict any use of the information to criminally investigate or prosecute any alcohol or drug abuse patient.[facility] HospitalIn the event this information is protected by the Federal Confidentiality of Alcohol and Drug Abuse Patient Records regulations: The Federal rules restrict any use of the information to criminally investigate or prosecute any alcohol or drug abuse patient.[facility] HospitalIn the event this information is protected by the Federal Confidentiality of Alcohol and Drug Abuse Patient Records regulations: The Federal rules restrict any use of the information to criminally investigate or prosecute any alcohol or drug abuse patient.[facility] HospitalIn the event this information is protected by the Federal Confidentiality of Alcohol and Drug Abuse Patient Records regulations: The Federal rules restrict any use of the information to criminally investigate or prosecute any alcohol or drug abuse patient.[facility] HospitalIn the event this information is protected by the Federal Confidentiality of Alcohol and Drug Abuse Patient Records regulations: The Federal rules restrict any use of the information to criminally investigate or prosecute any alcohol or drug abuse patient.[facility] HospitalIn the event this information is protected by the Federal Confidentiality of Alcohol and Drug Abuse Patient Records regulations: The Federal rules restrict any use of the information to criminally investigate or prosecute any alcohol or drug abuse patient.[facility] HospitalIn the event this information is protected by the Federal Confidentiality of Alcohol and Drug Abuse Patient Records regulations: The Federal rules restrict any use of the information to criminally investigate or prosecute any alcohol or drug abuse patient.[facility] HospitalIn the event this information is protected by the Federal Confidentiality of Alcohol and Drug Abuse Patient Records regulations: The Federal rules restrict any use of the information to criminally investigate or prosecute any alcohol or drug abuse patient.[facility] HospitalIn the event this information is protected by the Federal Confidentiality of Alcohol and Drug Abuse Patient Records regulations: The Federal rules restrict any use of the information to criminally investigate or prosecute any alcohol or drug abuse patient.[facility] HospitalIn the event this information is protected by the Federal Confidentiality of Alcohol and Drug Abuse Patient Records regulations: The Federal rules restrict any use of the information to criminally investigate or prosecute any alcohol or drug abuse patient.[facility] HospitalIn the event this information is protected by the Federal Confidentiality of Alcohol and Drug Abuse Patient Records regulations: The Federal rules restrict any use of the information to criminally investigate or prosecute any alcohol or drug abuse patient.[facility] HospitalIn the event this information is protected by the Federal Confidentiality of Alcohol and Drug Abuse Patient Records regulations: The Federal rules restrict any use of the information to criminally investigate or prosecute any alcohol or drug abuse patient.[facility] HospitalIn the event this information is protected by the Federal Confidentiality of Alcohol and Drug Abuse Patient Records regulations: The Federal rules restrict any use of the information to criminally investigate or prosecute any alcohol or drug abuse patient.[facility] HospitalIn the event this information is protected by the Federal Confidentiality of Alcohol and Drug Abuse Patient Records regulations: The Federal rules restrict any use of the information to criminally investigate or prosecute any alcohol or drug abuse patient.[facility] HospitalIn the event this information is protected by the Federal Confidentiality of Alcohol and Drug Abuse Patient Records regulations: The Federal rules restrict any use of the information to criminally investigate or prosecute any alcohol or drug abuse patient.[facility] HospitalIn the event this information is protected by the Federal Confidentiality of Alcohol and Drug Abuse Patient Records regulations: The Federal rules restrict any use of the information to criminally investigate or prosecute any alcohol or drug abuse patient.[facility] HospitalIn the event this information is protected by the Federal Confidentiality of Alcohol and Drug Abuse Patient Records regulations: The Federal rules restrict any use of the information to criminally investigate or prosecute any alcohol or drug abuse patient.[facility] HospitalIn the event this information is protected by the Federal Confidentiality of Alcohol and Drug Abuse Patient Records regulations: The Federal rules restrict any use of the information to criminally investigate or prosecute any alcohol or drug abuse patient.[facility] HospitalIn the event this information is protected by the Federal Confidentiality of Alcohol and Drug Abuse Patient Records regulations: The Federal rules restrict any use of the information to criminally investigate or prosecute any alcohol or drug abuse patient.[facility] HospitalIn the event this information is protected by the Federal Confidentiality of Alcohol and Drug Abuse Patient Records regulations: The Federal rules restrict any use of the information to criminally investigate or prosecute any alcohol or drug abuse patient.[facility] HospitalIn the event this information is protected by the Federal Confidentiality of Alcohol and Drug Abuse Patient Records regulations: The Federal rules restrict any use of the information to criminally investigate or prosecute any alcohol or drug abuse patient.[facility] HospitalIn the event this information is protected by the Federal Confidentiality of Alcohol and Drug Abuse Patient Records regulations: The Federal rules restrict any use of the information to criminally investigate or prosecute any alcohol or drug abuse patient.[facility] HospitalIn the event this information is protected by the Federal Confidentiality of Alcohol and Drug Abuse Patient Records regulations: The Federal rules restrict any use of the information to criminally investigate or prosecute any alcohol or drug abuse patient.[facility] HospitalIn the event this information is protected by the Federal Confidentiality of Alcohol and Drug Abuse Patient Records regulations: The Federal rules restrict any use of the information to criminally investigate or prosecute any alcohol or drug abuse patient.[facility] HospitalIn the event this information is protected by the Federal Confidentiality of Alcohol and Drug Abuse Patient Records regulations: The Federal rules restrict any use of the information to criminally investigate or prosecute any alcohol or drug abuse patient.[facility] HospitalIn the event this information is protected by the Federal Confidentiality of Alcohol and Drug Abuse Patient Records regulations: The Federal rules restrict any use of the information to criminally investigate or prosecute any alcohol or drug abuse patient.[facility] HospitalIn the event this information is protected by the Federal Confidentiality of Alcohol and Drug Abuse Patient Records regulations: The Federal rules restrict any use of the information to criminally investigate or prosecute any alcohol or drug abuse patient.[facility] HospitalIn the event this information is protected by the Federal Confidentiality of Alcohol and Drug Abuse Patient Records regulations: The Federal rules restrict any use of the information to criminally investigate or prosecute any alcohol or drug abuse patient.[facility] HospitalIn the event this information is protected by the Federal Confidentiality of Alcohol and Drug Abuse Patient Records regulations: The Federal rules restrict any use of the information to criminally investigate or prosecute any alcohol or drug abuse patient.[facility] HospitalIn the event this information is protected by the Federal Confidentiality of Alcohol and Drug Abuse Patient Records regulations: The Federal rules restrict any use of the information to criminally investigate or prosecute any alcohol or drug abuse patient.[facility] HospitalIn the event this information is protected by the Federal Confidentiality of Alcohol and Drug Abuse Patient Records regulations: The Federal rules restrict any use of the information to criminally investigate or prosecute any alcohol or drug abuse patient.[facility] HospitalIn the event this information is protected by the Federal Confidentiality of Alcohol and Drug Abuse Patient Records regulations: The Federal rules restrict any use of the information to criminally investigate or prosecute any alcohol or drug abuse patient.[facility] HospitalIn the event this information is protected by the Federal Confidentiality of Alcohol and Drug Abuse Patient Records regulations: The Federal rules restrict any use of the information to criminally investigate or prosecute any alcohol or drug abuse patient.[facility] HospitalIn the event this information is protected by the Federal Confidentiality of Alcohol and Drug Abuse Patient Records regulations: The Federal rules restrict any use of the information to criminally investigate or prosecute any alcohol or drug abuse patient.[facility] HospitalIn the event this information is protected by the Federal Confidentiality of Alcohol and Drug Abuse Patient Records regulations: The Federal rules restrict any use of the information to criminally investigate or prosecute any alcohol or drug abuse patient.[facility] HospitalIn the event this information is protected by the Federal Confidentiality of Alcohol and Drug Abuse Patient Records regulations: The Federal rules restrict any use of the information to criminally investigate or prosecute any alcohol or drug abuse patient.[facility] HospitalIn the event this information is protected by the Federal Confidentiality of Alcohol and Drug Abuse Patient Records regulations: The Federal rules restrict any use of the information to criminally investigate or prosecute any alcohol or drug abuse patient.[facility] HospitalIn the event this information is protected by the Federal Confidentiality of Alcohol and Drug Abuse Patient Records regulations: The Federal rules restrict any use of the information to criminally investigate or prosecute any alcohol or drug abuse patient.[facility] HospitalIn the event this information is protected by the Federal Confidentiality of Alcohol and Drug Abuse Patient Records regulations: The Federal rules restrict any use of the information to criminally investigate or prosecute any alcohol or drug abuse patient.[facility] HospitalIn the event this information is protected by the Federal Confidentiality of Alcohol and Drug Abuse Patient Records regulations: The Federal rules restrict any use of the information to criminally investigate or prosecute any alcohol or drug abuse patient.[facility] HospitalIn the event this information is protected by the Federal Confidentiality of Alcohol and Drug Abuse Patient Records regulations: The Federal rules restrict any use of the information to criminally investigate or prosecute any alcohol or drug abuse patient.[facility] HospitalIn the event this information is protected by the Federal Confidentiality of Alcohol and Drug Abuse Patient Records regulations: The Federal rules restrict any use of the information to criminally investigate or prosecute any alcohol or drug abuse patient.[facility] HospitalIn the event this information is protected by the Federal Confidentiality of Alcohol and Drug Abuse Patient Records regulations: The Federal rules restrict any use of the information to criminally investigate or prosecute any alcohol or drug abuse patient.[facility] HospitalIn the event this information is protected by the Federal Confidentiality of Alcohol and Drug Abuse Patient Records regulations: The Federal rules restrict any use of the information to criminally investigate or prosecute any alcohol or drug abuse patient.[facility] HospitalIn the event this information is protected by the Federal Confidentiality of Alcohol and Drug Abuse Patient Records regulations: The Federal rules restrict any use of the information to criminally investigate or prosecute any alcohol or drug abuse patient.[facility] HospitalIn the event this information is protected by the Federal Confidentiality of Alcohol and Drug Abuse Patient Records regulations: The Federal rules restrict any use of the information to criminally investigate or prosecute any alcohol or drug abuse patient.[facility] HospitalIn the event this information is protected by the Federal Confidentiality of Alcohol and Drug Abuse Patient Records regulations: The Federal rules restrict any use of the information to criminally investigate or prosecute any alcohol or drug abuse patient.[facility] HospitalIn the event this information is protected by the Federal Confidentiality of Alcohol and Drug Abuse Patient Records regulations: The Federal rules restrict any use of the information to criminally investigate or prosecute any alcohol or drug abuse patient.[facility] HospitalIn the event this information is protected by the Federal Confidentiality of Alcohol and Drug Abuse Patient Records regulations: The Federal rules restrict any use of the information to criminally investigate or prosecute any alcohol or drug abuse patient.[facility] HospitalIn the event this information is protected by the Federal Confidentiality of Alcohol and Drug Abuse Patient Records regulations: The Federal rules restrict any use of the information to criminally investigate or prosecute any alcohol or drug abuse patient.[facility] HospitalIn the event this information is protected by the Federal Confidentiality of Alcohol and Drug Abuse Patient Records regulations: The Federal rules restrict any use of the information to criminally investigate or prosecute any alcohol or drug abuse patient.[facility] HospitalIn the event this information is protected by the Federal Confidentiality of Alcohol and Drug Abuse Patient Records regulations: The Federal rules restrict any use of the information to criminally investigate or prosecute any alcohol or drug abuse patient.[facility] HospitalIn the event this information is protected by the Federal Confidentiality of Alcohol and Drug Abuse Patient Records regulations: The Federal rules restrict any use of the information to criminally investigate or prosecute any alcohol or drug abuse patient.[facility] HospitalIn the event this information is protected by the Federal Confidentiality of Alcohol and Drug Abuse Patient Records regulations: The Federal rules restrict any use of the information to criminally investigate or prosecute any alcohol or drug abuse patient.[facility] HospitalIn the event this information is protected by the Federal Confidentiality of Alcohol and Drug Abuse Patient Records regulations: The Federal rules restrict any use of the information to criminally investigate or prosecute any alcohol or drug abuse patient.[facility] HospitalIn the event this information is protected by the Federal Confidentiality of Alcohol and Drug Abuse Patient Records regulations: The Federal rules restrict any use of the information to criminally investigate or prosecute any alcohol or drug abuse patient.[facility] HospitalIn the event this information is protected by the Federal Confidentiality of Alcohol and Drug Abuse Patient Records regulations: The Federal rules restrict any use of the information to criminally investigate or prosecute any alcohol or drug abuse patient.[facility] HospitalIn the event this information is protected by the Federal Confidentiality of Alcohol and Drug Abuse Patient Records regulations: The Federal rules restrict any use of the information to criminally investigate or prosecute any alcohol or drug abuse patient.[facility] HospitalIn the event this information is protected by the Federal Confidentiality of Alcohol and Drug Abuse Patient Records regulations: The Federal rules restrict any use of the information to criminally investigate or prosecute any alcohol or drug abuse patient.[facility] HospitalIn the event this information is protected by the Federal Confidentiality of Alcohol and Drug Abuse Patient Records regulations: The Federal rules restrict any use of the information to criminally investigate or prosecute any alcohol or drug abuse patient.[facility] HospitalIn the event this information is protected by the Federal Confidentiality of Alcohol and Drug Abuse Patient Records regulations: The Federal rules restrict any use of the information to criminally investigate or prosecute any alcohol or drug abuse patient.[facility] HospitalIn the event this information is protected by the Federal Confidentiality of Alcohol and Drug Abuse Patient Records regulations: The Federal rules restrict any use of the information to criminally investigate or prosecute any alcohol or drug abuse patient.[facility] HospitalIn the event this information is protected by the Federal Confidentiality of Alcohol and Drug Abuse Patient Records regulations: The Federal rules restrict any use of the information to criminally investigate or prosecute any alcohol or drug abuse patient.[facility] HospitalIn the event this information is protected by the Federal Confidentiality of Alcohol and Drug Abuse Patient Records regulations: The Federal rules restrict any use of the information to criminally investigate or prosecute any alcohol or drug abuse patient.[facility] HospitalIn the event this information is protected by the Federal Confidentiality of Alcohol and Drug Abuse Patient Records regulations: The Federal rules restrict any use of the information to criminally investigate or prosecute any alcohol or drug abuse patient.[facility] HospitalIn the event this information is protected by the Federal Confidentiality of Alcohol and Drug Abuse Patient Records regulations: The Federal rules restrict any use of the information to criminally investigate or prosecute any alcohol or drug abuse patient.[facility] HospitalIn the event this information is protected by the Federal Confidentiality of Alcohol and Drug Abuse Patient Records regulations: The Federal rules restrict any use of the information to criminally investigate or prosecute any alcohol or drug abuse patient.[facility] HospitalIn the event this information is protected by the Federal Confidentiality of Alcohol and Drug Abuse Patient Records regulations: The Federal rules restrict any use of the information to criminally investigate or prosecute any alcohol or drug abuse patient.[facility] HospitalIn the event this information is protected by the Federal Confidentiality of Alcohol and Drug Abuse Patient Records regulations: The Federal rules restrict any use of the information to criminally investigate or prosecute any alcohol or drug abuse patient.[facility] HospitalIn the event this information is protected by the Federal Confidentiality of Alcohol and Drug Abuse Patient Records regulations: The Federal rules restrict any use of the information to criminally investigate or prosecute any alcohol or drug abuse patient.[facility] HospitalIn the event this information is protected by the Federal Confidentiality of Alcohol and Drug Abuse Patient Records regulations: The Federal rules restrict any use of the information to criminally investigate or prosecute any alcohol or drug abuse patient.[facility] HospitalIn the event this information is protected by the Federal Confidentiality of Alcohol and Drug Abuse Patient Records regulations: The Federal rules restrict any use of the information to criminally investigate or prosecute any alcohol or drug abuse patient.[facility] HospitalIn the event this information is protected by the Federal Confidentiality of Alcohol and Drug Abuse Patient Records regulations: The Federal rules restrict any use of the information to criminally investigate or prosecute any alcohol or drug abuse patient.[facility] HospitalIn the event this information is protected by the Federal Confidentiality of Alcohol and Drug Abuse Patient Records regulations: The Federal rules restrict any use of the information to criminally investigate or prosecute any alcohol or drug abuse patient.[facility] HospitalIn the event this information is protected by the Federal Confidentiality of Alcohol and Drug Abuse Patient Records regulations: The Federal rules restrict any use of the information to criminally investigate or prosecute any alcohol or drug abuse patient.[facility] HospitalIn the event this information is protected by the Federal Confidentiality of Alcohol and Drug Abuse Patient Records regulations: The Federal rules restrict any use of the information to criminally investigate or prosecute any alcohol or drug abuse patient.[facility] HospitalIn the event this information is protected by the Federal Confidentiality of Alcohol and Drug Abuse Patient Records regulations: The Federal rules restrict any use of the information to criminally investigate or prosecute any alcohol or drug abuse patient.[facility] HospitalIn the event this information is protected by the Federal Confidentiality of Alcohol and Drug Abuse Patient Records regulations: The Federal rules restrict any use of the information to criminally investigate or prosecute any alcohol or drug abuse patient.[facility] HospitalIn the event this information is protected by the Federal Confidentiality of Alcohol and Drug Abuse Patient Records regulations: The Federal rules restrict any use of the information to criminally investigate or prosecute any alcohol or drug abuse patient.[facility] HospitalIn the event this information is protected by the Federal Confidentiality of Alcohol and Drug Abuse Patient Records regulations: The Federal rules restrict any use of the information to criminally investigate or prosecute any alcohol or drug abuse patient.[facility] HospitalIn the event this information is protected by the Federal Confidentiality of Alcohol and Drug Abuse Patient Records regulations: The Federal rules restrict any use of the information to criminally investigate or prosecute any alcohol or drug abuse patient.[facility] Hospital[facility] the event this information is protected by the Federal Confidentiality of Alcohol and Drug Abuse Patient Records regulations: The Federal rules restrict any use of the information to criminally investigate or prosecute any alcohol or drug abuse patient.[facility] HospitalIn the event this information is protected by the Federal Confidentiality of Alcohol and Drug Abuse Patient Records regulations: The Federal rules restrict any use of the information to criminally investigate or prosecute any alcohol or drug abuse patient.[facility] HospitalIn the event this information is protected by the Federal Confidentiality of Alcohol and Drug Abuse Patient Records regulations: The Federal rules restrict any use of the information to criminally investigate or prosecute any alcohol or drug abuse patient.[facility] HospitalIn the event this information is protected by the Federal Confidentiality of Alcohol and Drug Abuse Patient Records regulations: The Federal rules restrict any use of the information to criminally investigate or prosecute any alcohol or drug abuse patient.[facility] HospitalIn the event this information is protected by the Federal Confidentiality of Alcohol and Drug Abuse Patient Records regulations: The Federal rules restrict any use of the information to criminally investigate or prosecute any alcohol or drug abuse patient.[facility] HospitalIn the event this information is protected by the Federal Confidentiality of Alcohol and Drug Abuse Patient Records regulations: The Federal rules restrict any use of the information to criminally investigate or prosecute any alcohol or drug abuse patient.[facility] HospitalIn the event this information is protected by the Federal Confidentiality of Alcohol and Drug Abuse Patient Records regulations: The Federal rules restrict any use of the information to criminally investigate or prosecute any alcohol or drug abuse patient.[facility] Reason for Visit (unrecogniz ed section and content) Reason Comments Physical Therapy Specialty Diagnoses / Procedures Referred By Contac t Referred To Contact [facility] Diagnoses Motor neuron disease (HCC) Procedures CONSULT TO PHYSICAL THERAPY PHYSICAL THERAPY EVALUATION HIGH COMPLEX 45 MINS Daniel Paez DO [address] [id number] [facility] [place] [address] [place] [address] Referral ID Status Reason Start Date Expiration Date Visits Requested Visits Authorized [id number] Authorized Auto-Generat ed Referral 09/03/2023 09/02/2024 68 99 Reason Comments PT Progress Note Reason Comments Right Knee Pain Specialty Diagnoses / Procedures Referred By Contac t Referred To Contact Integrated Medicine / WELLNESS Diagnoses Motor neuron disease, unspecified Personal history of other infectious and parasitic diseases ACUPUNCTURE Procedures EST [place] ACUPUNCTURE Self Rocio Alejandra [address] [place] [address] Referral ID Status Reason Start Date Expiration Date V isits Requested Visits Authorized [id number] Authorized 09/03/2023 09/02/2024 99 99 Specialty Diagnoses / Procedures Referred By Contac t Referred To Contact [facility] Diagnoses Primary lateral sclerosis (HCC) Procedures CONSULT TO PAIN MGT OFFICE/OUTPATIENT [facility] MDM 60 MINUTES Antonietta Alcaraz DO [address] [place] [address] An[facility] [place] [address] [place] [address] Referral ID Status Reason Start Date Expiration Date V isits Requested Visits Authorized [id number] Closed PCP Requested Referral 01/09/2024 01/08/2025 1 1 Reason Comments Speech Therapy Specialty Diagnoses / Procedures Referred By Contac t Referred To Contact [facility] Diagnoses Primary lateral sclerosis (HCC) Procedures CONSULT TO DIELECTRIC EMBOSSING MACHINE OPERATOR OCCUPATIONAL THERAPY EVAL HIGH COMPLEX 60 MINS Joan Prieto MD [address] [place] [address] [facility] [place] [address] [place] [address] Referral ID Status Reason Start Date Expiration Date Visits Requested Visits Authorized [id number] Authorized Auto-Generat ed Referral 09/03/2023 09/02/2024 99 99 Reason Comments Physical Therapy [facility] ALS Clinic Referral ID Status Reason Start Date Expiration Date Visits Requested Visits Authorized [id number] Authorized Auto-Generat ed Referral 09/03/2023 09/02/2024 99 99 Specialty Diagnoses / Procedures Referred By Jamin lomeli Referred To Contact Diagnoses Motor neuron disease (HCC) History of Lyme disease Procedures CONSULT FOR ACUPUNCTURE Daniel Paez DO [address] [place] [address] Javier [address]oya R [address] [place] [address] Referral ID Status Reason Start Date Expiration Date V isits Requested Visits Authorized [id number] Closed PCP Requested Referral 03/13/2023 03/12/2024 1 1 Reason Comments New Patient Reason Comments Established Patient Specialty Diagnoses / Procedures Referred By Jamin lomeli Referred To Contact Diagnoses Multi-system degeneration of the autonomic nervous system Procedures MRI BRAIN WITHOUT CONTRAST VT MRI BRAIN Stiven Marte MD [address] [place] [address] [facility] [address] [place] [address] Referral ID Status Reason Start Date Expiration Date Visits Re quested Visits Authorized [id number] Closed 09/28/2022 10/23/2023 1 1 Reason Comments Established Patient Test review Reason Comments Established Patient Balance, speech Reason Onset Date Comments Refill Request 03/30/2023 Reason Onset Date Comments Refill Request 06/10/2023 Reason Onset Date Comments Refill Request 08/11/2023 Specialty Diagnoses / Procedures Referred By Jamin lomeli Referred To Contact Diagnoses Motor neuron disease (HCC) History of Lyme disease Procedures CONSULT FOR ACUPUNCTURE Daniel Paez DO [address] [phone] [place] [address] [place] [address] Specialty Diagnoses / Procedures Referred By Contac t Referred To Contact Integrated Medicine / WELLNESS Diagnoses Motor neuron disease, unspecified Personal history of other infectious and parasitic diseases ACUPUNCTURE Procedures EST [place] ACUPUNCTURE Self Eulogio, Shui [address] [place] [address] Specialty Diagnoses / Procedures Referred By Contac t Referred To Contact Diagnoses Motor neuron disease (HCC) History of Lyme disease GERD without esophagitis Joint stiffness of right lower leg Procedures CONSULT TO FUNCTIONAL MEDICINE OFFICE/OUTPATIENT [facility] 60 MINUTES Daniel Paez DO [address] [phone] Matthew Gallegos MD [facility] [place] [address] Referral ID Status Reason Start Date Expiration Date V isits Requested Visits Authorized [id number] Closed PCP Requested Referral 11/09/2023 09/02/2024 1 1 Reason Comments Consult New Patient Reason Comments OT EVAL [facility] ALS Clinic Reason Comments Nutrition Assessment Specialty Diagnoses / Procedures Referred By Contact Referred To Contact Nutrition / NEUROMUSCULAR Diagnoses Primary lateral sclerosis (HCC) Procedures CONSULT TO NUTRITION THERAPY MEDICAL NUTRITION ASSMT&IVNTJ INDIV EACH 15 PA Joan Prieto MD [address] [place] [phone] [facility] [address] [address] Referral ID Status Reason Start Date Expiration Date Visits Requested Visits Authorized [id number] Authorized PCP Requested Referral 12/31/2023 12/30/2024 1 4 Specialty Diagnoses / Procedures Referred By Contac t Referred To Contact NEUROMUSCULAR Diagnoses Primary lateral sclerosis (HCC) Procedures CONSULT TO NEUROMUSCULAR MEDIC OFFICE/OUTPATIENT [facility] 60 MINUTES Joan Prieto MD [address] [place] [address] [facility] [address] [address] Referral ID Status Reason Start Date Expiration Date V isits Requested Visits Authorized [id number] Closed PCP Requested Referral 01/02/2024 12/30/2024 1 1 Reason Comments Speech Evaluation [facility] ALS/MND TEAM CLIN IC Specialty Diagnoses / Procedures Referred By Jamin lomeli Referred To Contact [facility] Diagnoses Primary lateral sclerosis (HCC) Procedures CONSULT TO SPEECH THERAPY OFFICE/OUTPATIENT [facility] MDM 60 MINUTES Joan Prieto MD [address] [place] [address] [facility] Sports Therapy [address] [address] Referral ID Status Reason Start Date Expiration Date Visits Requested Visits Authorized [id number] Authorized Auto-Generat ed Referral 09/03/2023 09/02/2024 99 99 Reason Comments OT Progress Note Specialty Diagnoses / Procedures Referred By Jamin lomeli Referred To Contact [facility] Diagnoses Primary lateral sclerosis (HCC) Procedures CONSULT TO PT/OT WHEELCHAIR EVALUATION OFFICE/OUTPATIENT [facility] 60 MINUTES Antonietta Alcaraz DO [address] [place] [address] [place] [address] Referral ID Status Reason Start Date Expiration Date V isits Requested Visits Authorized [id number] Closed Auto-Generate d Referral 01/09/2024 01/08/2025 1 1 Reason Comments Orders Reason Comments New Patient Spasticity legs, sto mach and hands Specialty Diagnoses / Procedures Referred By Jamin lomeli Referred To Contact [facility] Diagnoses Primary lateral sclerosis (HCC) Procedures CONSULT - SPASTICITY EVAL OFFICE/OUTPATIENT [facility] MDM 60 MINUTES Joan Prieto MD [address] [place] [address] [facility] [address] [place] [address] Referral ID Status Reason Start Date Expiration Date V isits Requested Visits Authorized [id number] Closed PCP Requested Referral Auto-Generated Referral 12/31/2023 12/30/2024 1 1 Reason Comments Right Knee Pain Reason Comments c difficile Reason Comments Speech Evaluation Augmentative and Alt ernative Communication Specialty Diagnoses / Procedures Referred By Jamin Referred To Contact [facility] Diagnoses Primary lateral sclerosis (HCC) Dysarthria and anarthria Procedures CONSULT TO SPEECH THERAPY OFFICE/OUTPATIENT [facility] 60 MINUTES TX SPEECH LANG VOICE COMMJ &/AUDITORY PROC IND RX SP-GENRATJ AUGMNT&COMUNICAJ DEV 1ST HR Joan Prieto MD [address] [place] [address] [facility] [address] [address] Reason Comments OT EVAL Specialty Diagnoses / Procedures Referred By Jamin Referred To Contact [facility] Diagnoses Primary lateral sclerosis (HCC) Dysarthria and anarthria Procedures CONSULT TO DIELECTRIC EMBOSSING MACHINE OPERATOR OCCUPATIONAL THERAPY EVAL HIGH COMPLEX 60 MINS OCCUPATIONAL THERAPY EVAL LOW COMPLEX 30 MINS OCCUPATIONAL THERAPY EVAL MOD COMPLEX 45 MINS Joan Prieto MD [address] [place] [address] [facility] Sports [address] [address] Reason Comments 6 wk f/u Spasticity, Primary lateral sclerosis, Pseudobulbar affect, Spastic dysarthria Specialty Diagnoses / Procedures Referred By Jamin Referred To Contact Integrated Medicine / WELLNESS Diagnoses Motor neuron disease, unspecified Personal history of other infectious and parasitic diseases ACUPUNCTURE Procedures EST WI ACUPUNCTURE Self Eulogio, Shui [address] [place] [address] Reason Onset Date Comments Refill Request 03/28/2024 Specialty Diagnoses / Procedures Referred By Jamin t Referred To Contact [facility] Medicine / WELLNESS Diagnoses Motor neuron disease, unspecified Personal history of other infectious and parasitic diseases ACUPUNCTURE Procedures EST WI ACUPUNCTURE Self Eulogio, Shui [address] [place] [address] Reason Comments Medication Question Reason Comments Radio Main J1 Reason Comments Received Outside Medical Records Arnol edge Daily Notes Reason Comments ALS Clinic Reason Comments Medication Authorization Nuedexta 20-10m g Reason Onset Date Comments Refill Request 12/01/2024 Care Teams (unrecognized sec tion and content) Lubrication Servicer Relationship Specialty Start Date End Date [facility] [address] [facility] [place] [address] Specialty Bridge Repairer Internal Medicine 10/15/17 Lubrication Servicer Relationship Specialty Start Date End Date [facility] [address] [place] [address] Specialty Bridge Repairer Internal Medicine 10/15/17 Lubrication Servicer Relationship Specialty Start Date End Date [facility] [address] [place] [address] Specialty Bridge Repairer Internal Medicine 10/15/17 Lubrication Servicer Relationship Specialty Start Date End Date Lilly Livingston MD [address] [place] [address] [address] [place] [address] PCP - General Family Medicine 11/28/21 Lubrication Servicer Relationship Specialty Start Date End Date [facility] [address] [facility] [place] [address] Specialty Bridge Repairer Internal Medicine 10/15/17 Lubrication Servicer Relationship Specialty Start Date End Date [facility] [address] [facility] [place] [address] Specialty Bridge Repairer Internal Medicine 10/15/17 Team Status: Active Member Role Status Dates LILLY LIVINGSTON Family Provider Active Dr. Keren Dumont MD Primary Care Provider Active Team Status: Inactive Member Role Status Dates Dr. Keren Dumont MD Primary Care Pro vider, Attending Provider, Referring Provider Active Team Status: Active Member Role Status Dates Dr. Keren Dumont MD Primary Care Pro vider, Attending Provider, Referring Provider Active Lubrication Servicer Relationship Specialty Start Date End Date [facility] [address] [place] [address] Specialty Bridge Repairer Internal Medicine 10/15/17 Lubrication Servicer Relationship Specialty Start Date End Date [facility] [address] [place] [address] Specialty Bridge Repairer Internal Medicine 10/15/17 Team Status: Inactive Member Role Status Dates Dr. Keren Dumont MD Primary Care Provider, Referri ng Provider Active Dr. Medhat Guadarrama MD Attending Provider Active Team Status: Inactive Member Role Status Dates Dr. Keren Dumont MD Primary Care Provider Active Arlette RUIZ PA Attending Provider, Referring Pr ovider Active Lubrication Servicer Relationship Specialty Start Date End Date [facility] Sowmya [address] [place] [address] Specialty Bridge Repairer Internal Medicine 10/15/17 Lubrication Servicer Relationship Specialty Start Date End Date [facility] Sowmya [address] [place] [address] Specialty Bridge Repairer Internal Medicine 10/15/17 Lubrication Servicer Relationship Specialty Start Date End Date [facility] Sowmya [address] [place] [address] Specialty Bridge Repairer Internal Medicine 10/15/17 Lubrication Servicer Relationship Specialty Start Date End Date [facility] Sowmya [address] [place] [address] Specialty Bridge Repairer Internal Medicine 10/15/17 Lubrication Servicer Relationship Specialty Start Date End Date [facility] Sowmya [address] [place] [address] Specialty Bridge Repairer Internal Medicine 10/15/17 Lubrication Servicer Relationship Specialty Start Date End Date [facility] Sowmya [address] [place] [address] Specialty Bridge Repairer Internal Medicine 10/15/17 Lubrication Servicer Relationship Specialty Start Date End Date Sowmya Chin [address] [place] [address] Specialty Bridge Repairer Internal Medicine 10/15/17 Team Status: Inactive Member Role Status Dates Dr. Keren Dumont MD Primary Care Provider Active Dr. Medhat Guadarrama MD Attending Provider Active Lubrication Servicer Relationship Specialty Start Date End Date Sowmya Chin [address] [place] [address] Specialty Bridge Repairer Internal Medicine 10/15/17 Lubrication Servicer Relationship Specialty Start Date End Date Sowmya Chin [address] [place] [address] Specialty Bridge Repairer Internal Medicine 10/15/17 Lubrication Servicer Relationship Specialty Start Date End Date Sowmya Chin [address] [place] [address] Specialty Bridge Repairer Internal Medicine 10/15/17 Lubrication Servicer Relationship Specialty Start Date End Date Sowmya Chin [address] [place] [address] Specialty Bridge Repairer Internal Medicine 10/15/17 Lubrication Servicer Relationship Specialty Start Date End Date Daniel Paez DO [address] [place] [address] PCP - General Family Medicine 11/12/23 CiaraSowmya ramirez [address] [place] [address] Specialty Bridge Repairer Internal Medicine 10/15/17 Lubrication Servicer Relationship Specialty Start Date End Date Kaden Paezfernando [address] [place] [address] PCP - General Family Medicine 11/12/23 Sowmya Chin [address] [place] [address] Specialty Bridge Repairer Internal Medicine 10/15/17 Lubrication Servicer Relationship Specialty Start Date End Date Daniel Paez DO [address] [place] [address] PCP - General Family Medicine 11/12/23 Sowmya Chin [address] [address] Specialty Bridge Repairer Internal Medicine 10/15/17 Lubrication Servicer Relationship Specialty Start Date End Date Daniel Paez DO [address] [place] [address] PCP - General Family Medicine 11/12/23 Sowmya Chin [address] [place] [address] Specialty Bridge Repairer Internal Medicine 10/15/17 Team Status: Inactive Member Role Status Dates Dr. Keren Dumont MD Primary Care Provider Active Dr. Medhat Guadarrama MD Attending Provider, Referring Provi ira Active Lubrication Servicer Relationship Specialty Start Date End Date Daniel Paez DO [address] [place] [address] PCP - General Family Medicine 11/12/23 Sowmya Chin [address] [address] Specialty Bridge Repairer Internal Medicine 10/15/17 Lubrication Servicer Relationship Specialty Start Date End Date Daniel Paez DO [address] [facility] [place] [place] [address] PCP - General Family Medicine 11/12/23 Sowmya Chin [address] [place] [address] Specialty Bridge Repairer Internal Medicine 10/15/17 Lubrication Servicer Relationship Specialty Start Date End Date Daniel Paez DO [address] [facility] [place] [place] [address] PCP - General Family Medicine 11/12/23 Sowmya Chin [address] [facility] [place] [address] Specialty Bridge Repairer Internal Medicine 10/15/17 Lubrication Servicer Relationship Specialty Start Date End Date Daniel Paez DO [address] [facility] [place] [address] PCP - General Family Medicine 11/12/23 Sowmya Chin [address] [place] [address] Specialty Bridge Repairer Internal Medicine 10/15/17 Lubrication Servicer Relationship Specialty Start Date End Date Daniel Paez DO [address] [facility] [place] [address] PCP - General Family Medicine 11/12/23 Sowmya Chin [address] [place] [address] Specialty Bridge Repairer Internal Medicine 10/15/17 Lubrication Servicer Relationship Specialty Start Date End Date Daniel Paez DO [address] [place] [address] PCP - General Family Medicine 11/12/23 Sowmya Chin [address] [place] [address] Specialty Bridge Repairer Internal Medicine 10/15/17 Lubrication Servicer Relationship Specialty Start Date End Date Daniel Paez DO [address] [place] [address] PCP - General Family Medicine 11/12/23 Sowmya Chin [address] [facility] [place] [address] Specialty Bridge Repairer Internal Medicine 10/15/17 Lubrication Servicer Relationship Specialty Start Date End Date Daniel Paez DO [address] [place] [address] PCP - General Family Medicine 11/12/23 Sowmya Chin [address] [place] [address] Specialty Bridge Repairer Internal Medicine 10/15/17 Lubrication Servicer Relationship Specialty Start Date End Date Daniel Paez DO [address] [place] [address] PCP - General Family Medicine 11/12/23 Sowmya Chin [address] [place] [address] Specialty Bridge Repairer Internal Medicine 10/15/17 Lubrication Servicer Relationship Specialty Start Date End Date Daniel Paez DO [address] [place], [place] [address] PCP - General Family Medicine 11/12/23 12/31/23 Sowmya Chin [address] [place] [address] Specialty Bridge Repairer Internal Medicine 10/15/17 Lubrication Servicer Relationship Specialty Start Date End Date Keren Dumont MD [address] [place], [place] [address] PCP - General Internal Medicine 01/01/24 Sowmya Chin [address] [place] [address] Specialty Bridge Repairer Internal Medicine 10/15/17 Daniel Paez DO [address] [place] [address] Family Medicine 01/01/24 Lubrication Servicer Relationship Specialty Start Date End Date Keren Dumont MD [address] [place] [address] PCP - General Internal Medicine 01/01/24 Sowmya Chin [address] [place] [address] Specialty Bridge Repairer Internal Medicine 10/15/17 Daniel Paez DO [address] [place] [address] Family Medicine 01/01/24 Lubrication Servicer Relationship Specialty Start Date End Date Keren Dumont MD [address] [place] [address] PCP - General Internal Medicine 01/01/24 [facility] Sowmya [address] [place] [address] Specialty Bridge Repairer Internal Medicine 10/15/17 Daniel Paez DO [address] [place] [address] Family Medicine 01/01/24 Lubrication Servicer Relationship Specialty Start Date End Date Keren Dumont MD [address] [place] [address] PCP - General Internal Medicine 01/01/24 [facility] [address] [place] [address] Specialty Bridge Repairer Internal Medicine 10/15/17 Daniel Paez DO [address] [place] [address] Family Medicine 01/01/24 Lubrication Servicer Relationship Specialty Start Date End Date Keren Dumont MD [address] [place] [address] PCP - General Internal Medicine 01/01/24 [facility] [address] [place] [address] Specialty Bridge Repairer Internal Medicine 10/15/17 Daniel Paez DO [address] [place] [address] Family Medicine 01/01/24 Team Status: Inactive Member Role Status Dates Dr. Keren Dumont MD Primary Care Provider Active Chela Lynn BOAT RENTAL CLERK, BOAT RENTAL CLERK-C Attending Provider Active Lubrication Servicer Relationship Specialty Start Date End Date Keren Dumont MD [address] [place] [address] PCP - General Internal Medicine 01/01/24 Sowmya Chin [address] [place] [address] Specialty Bridge Repairer Internal Medicine 10/15/17 Daniel Paez DO [address] [place], [place] [address] Family Medicine 01/01/[address] [place], [place] [address] Registered Dietitian Nutrition 01/09/24 Lubrication Servicer Relationship Specialty Start Date End Date Keren Dumont MD [address] [place] [address] PCP - General Internal Medicine 01/01/24 Sowmya Chin [address] [place] [address] Specialty Bridge Repairer Internal Medicine 10/15/17 Daniel Paez DO [address] [place], [place] [address] Family Medicine 01/01/[address] [place], [place] [address] Registered Dietitian Nutrition 01/09/24 Lubrication Servicer Relationship Specialty Start Date End Date Orient, Keren G, MD [address] [place] [address] PCP - General Internal Medicine 01/01/24 Sowmya Chin [address] [facility] [place] [address] Specialty Bridge Repairer Internal Medicine 10/15/17 Daniel Paez DO [address] [place] [address] Family Medicine 01/01/[address] [place] [address] Registered Dietitian Nutrition 01/09/24 Lubrication Servicer Relationship Specialty Start Date End Date Keren Dumont MD [address] [place] [address] PCP - General Internal Medicine 01/01/24 Sowmya Chin [address] [facility] [place] [address] Specialty Bridge Repairer Internal Medicine 10/15/17 Daniel Paez DO [address] [place] [address] Family Medicine 01/01/[address] [place] [address] Registered Dietitian Nutrition 01/09/24 Lubrication Servicer Relationship Specialty Start Date End Date Keren Dumont MD [address] [place] [address] PCP - General Internal Medicine 01/01/24 Sowmya Chin [address] [place] [address] Specialty Bridge Repairer Internal Medicine 10/15/17 Daniel Paez DO [address] [place] [address] Family Medicine 01/01/[address] [place], [place] [id number] Registered Dietitian Nutrition 01/09/24 Lubrication Servicer Relationship Specialty Start Date End Date Keren Dumont MD [address] [facility] [place] [address] PCP - General Internal Medicine 01/01/24 Sowmya Chin [address] [facility] [address] Specialty Bridge Repairer Internal Medicine 10/15/17 Daniel Paez DO [address] [place] [address] Family Medicine 01/01/[address] [place], [place] 7841995 Registered Dietitian Nutrition 01/09/24 Lubrication Servicer Relationship Specialty Start Date End Date Keren Dumont MD [address] [place], [place] 662781 PCP - General Internal Medicine 01/01/24 [facility] Sow[facility]a [address] [place], [place] [id number] Specialty Bridge Repairer Internal Medicine 10/15/17 Daniel Paez DO [address] [place] [address] Family Medicine 01/01/[address] [place] [address] Registered Dietitian Nutrition 01/09/24 Lubrication Servicer Relationship Specialty Start Date End Date Keren Dumont MD [address] [place], [place] 3024[address] PCP - General Internal Medicine 01/01/24 [facility] [address] [place] [address] Specialty Bridge Repairer Internal Medicine 10/15/17 Daniel Paez DO [address] [place] [address] Family Medicine 01/01/[address] [place] [address] Registered Dietitian Nutrition 01/09/24 Lubrication Servicer Relationship Specialty Start Date End Date Keren Dumont MD [address] [place] [address] PCP - General Internal Medicine 01/01/24 [facility] [place] [address] [place] [address] Specialty Bridge Repairer Internal Medicine 10/15/17 Daniel Paez DO [address] [place] [address] Family Medicine 01/01/[address] [place] [address] Registered Dietitian Nutrition 01/09/24 Lubrication Servicer Relationship Specialty Start Date End Date Keren Dumont MD [address] [place] [address] PCP - General Internal Medicine 01/01/24 Sowmya Chin [address] [place] [address] Specialty Bridge Repairer Internal Medicine 10/15/17 Daniel Paez DO [address] [place] [address] Family Medicine 01/01/[address] [place] [address] Registered Dietitian Nutrition 01/09/24 Lubrication Servicer Relationship Specialty Start Date End Date Keren Dumont MD [address] [place] [address] PCP - General Internal Medicine 01/01/24 Sowmya Chin [address] [place], [place] 9224124 Specialty Bridge Repairer Internal Medicine 10/15/17 Daniel Paez DO [address] [place] [address] Family [facility] 01/01/[address] [place] [address] Registered Dietitian Nutrition 01/09/24 Lubrication Servicer Relationship Specialty Start Date End Date Keren uDmont MD [address] Khalil [place], [place] [id number] PCP - General Internal Medicine 01/01/24 Sowmya Chin [address] [place], [place] 2898524 Specialty Bridge Repairer Internal Medicine 10/15/17 Daniel Paez DO [address] [place] [address] Family [facility] 01/01/[address] [place] [address] Registered Dietitian Nutrition 01/09/24 Lubrication Servicer Relationship Specialty Start Date End Date Keren Dumont MD [address] [place] [address] PCP - General Internal Medicine 01/01/24 Sowmya Chin [address] [place] [address] Specialty Bridge Repairer Internal Medicine 10/15/17 Daniel Paez DO [address] [place] [address] Family Medicine 01/01/[address] [place] [address] Registered Dietitian Nutrition 01/09/24 Lubrication Servicer Relationship Specialty Start Date End Date Keren Dumont MD [address] [place] [place] [address] PCP - General Internal Medicine 01/01/24 Sowmya Chin [address] [place] [address] Specialty Bridge Repairer Internal Medicine 10/15/17 Daniel Paez DO [address] [place] [address] Family Medicine 01/01/[address] [place] [address] Registered Dietitian Nutrition 01/09/24 Lubrication Servicer Relationship Specialty Start Date End Date Keren Dumont MD [address] [address] PCP - General Internal Medicine 01/01/24 Sowmya Chin [address] [place] [address] Specialty Bridge Repairer Internal Medicine 10/15/17 Daniel Paez DO [address] [place], [place] 4214995 Family Medicine 01/01/[address] [place], [place] 3358195 Registered Dietitian Nutrition 01/09/24 Lubrication Servicer Relationship Specialty Start Date End Date Keren Dumont MD [address] [place], [place] 691291 PCP - General Internal Medicine 01/01/24 Sowmya Chin [address] [place], [place] 4643624 Specialty Bridge Repairer Internal Medicine 10/15/17 Daniel Paez DO [address] [place], [place] 0757495 Family Medicine 01/01/[address] [place], [place] 6369295 Registered Dietitian Nutrition 01/09/24 Lubrication Servicer Relationship Specialty Start Date End Date Keren Dumont MD [address] [place] [address] PCP - General Internal Medicine 01/01/24 Sowmya Chin [address] [place] [address] Specialty Bridge Repairer Internal Medicine 10/15/17 Daniel Paez DO [address] [place] [address] Family Medicine 01/01/[address] [place] [address] Registered Dietitian Nutrition 01/09/24 Lubrication Servicer Relationship Specialty Start Date End Date Keren Dumont MD [address] [place] [address] PCP - General Internal Medicine 01/01/24 Sowmya Chin [address] [place] [address] Specialty Bridge Repairer Internal Medicine 10/15/17 Daniel Paez DO [address] [place], [place] 0603195 Family Medicine 01/01/[address] [place] [address] Registered Dietitian Nutrition 01/09/24 Lubrication Servicer Relationship Specialty Start Date End Date Keren Dumont MD [address] [place] [address] PCP - General Internal Medicine 01/01/24 Sowmya Chin [address] [place] [address] Specialty Bridge Repairer Internal Medicine 10/15/17 Daniel Paez DO [address] [place], [place] 3735195 Family Medicine 01/01/[address] [place], [place] 3963895 Registered Dietitian Nutrition 01/09/24 Lubrication Servicer Relationship Specialty Start Date End Date Keren Dumont MD [address] [place] [place], [place] [address]- PCP - General Internal [facility] 01/01/24 [facility] [address] [place] [address] Specialty Bridge Repairer Internal Medicine 10/15/17 Daniel Paez DO [address] [place], [place] 0974395 Family Medicine 01/01/[address] [place], [place] 2028295 Registered Dietitian Nutrition 01/09/24 Lubrication Servicer Relationship Specialty Start Date End Date Keren Dumont MD [address] [place] [address] PCP - General Internal Medicine 01/01/24 [facility] [address] [place] [address] Specialty Bridge Repairer Internal Medicine 10/15/17 Daniel Paez DO [address] [place] [address] Family Medicine 01/01/[address] [place], [place] 1870795 Registered Dietitian Nutrition 01/09/24 Lubrication Servicer Relationship Specialty Start Date End Date Keren Dumont MD [address] [facility] [place] [address] PCP - General Internal Medicine 01/01/24 Sowmya Chin [address] [place] [address] Specialty Bridge Repairer Internal Medicine 10/15/17 Daniel Paez DO [address] [place] [address] Family Medicine 01/01/[address] [place], [place] 4153795 Registered Dietitian Nutrition 01/09/24 Lubrication Servicer Relationship Specialty Start Date End Date Keren Dumont MD [address] [facility] [place], [place] [address]- PCP - General Internal Medicine 01/01/24 Sowmya Chin [address] [facility] [place] [address] Specialty Bridge Repairer Internal Medicine 10/15/17 Daniel Paez DO [address] [place] [address] Family Medicine 01/01/[address] [place], [place] 6742395 Registered Dietitian Nutrition 01/09/24 Lubrication Servicer Relationship Specialty Start Date End Date Keren Dumont MD [address] [facility] [place] [address] PCP - General Internal Medicine 01/01/24 [facility] [place] [address] [place], [place] 8080924 Specialty Bridge Repairer Internal Medicine 10/15/17 Daniel Paez DO [address] [place], [place] 7686595 Family Medicine 01/01/[address] [place], [place] 2080395 Registered Dietitian Nutrition 01/09/24 Lubrication Servicer Relationship Specialty Start Date End Date Keren Dumont MD [address] [place] [address] PCP - General Internal Medicine 01/01/24 [facility] [address] [place] [address] Specialty Bridge Repairer Internal Medicine 10/15/17 Daniel Paez DO [address] [place] [address] Family Medicine 01/01/[address] [place] [address] Registered Dietitian Nutrition 01/09/24 Lubrication Servicer Relationship Specialty Start Date End Date Keren Dumont MD [address] [place] [address] PCP - General Internal Medicine 01/01/24 [facility] Sowmya [address] [place] [address] Specialty Bridge Repairer Internal Medicine 10/15/17 Daniel Paez DO [address] [place] [address] Family Medicine 01/01/[address] [place] [address] Registered Dietitian Nutrition 01/09/24 Lubrication Servicer Relationship Specialty Start Date End Date Keren Dumont MD [address] [place], [place] 402541 PCP - General Internal Medicine 01/01/24 Sowmya Chin [address] [place] [address] Specialty Bridge Repairer Internal Medicine 10/15/17 Daniel Paez DO [address] [place] [address] Family Medicine 01/01/[address] [place] [address] Registered Dietitian Nutrition 01/09/24 Lubrication Servicer Relationship Specialty Start Date End Date Keren Dumont MD [address] [place] [address] PCP - General Internal Medicine 01/01/24 Sowmya Chin [address] [place] [address] Specialty Bridge Repairer Internal Medicine 10/15/17 Daniel Paez DO [address] [place], [place] 7315395 Family Medicine 01/01/[address] [place] [address] Registered Dietitian Nutrition 01/09/24 Lubrication Servicer Relationship Specialty Start Date End Date Keren Dumont MD [address] [place], [place] 887771 PCP - General Internal Medicine 01/01/24 [facility] [address] [place], [place] 0291424 Specialty Bridge Repairer Internal Medicine 10/15/17 Daniel Paez DO [address] [place], [place] 5704095 [facility] 01/01/[address] [address] Registered Dietitian Nutrition 01/09/24 Lubrication Servicer Relationship Specialty Start Date End Date Keren Dumont MD [address] [place] [address] PCP - General Internal Medicine 01/01/24 Giuseppe Sowmya [address] [place] [address] Specialty Bridge Repairer Internal Medicine 10/15/17 Daniel Paez DO [address] [place] [address] Family Medicine 01/01/[address] [place] [address] Registered Dietitian Nutrition 01/09/24 Lubrication Servicer Relationship Specialty Start Date End Date Keren Dumont MD [address] [place]ran [place], [place] 650441 PCP - General Internal Medicine 01/01/24 Sowmya Chin [address] [place] [address] Specialty Bridge Repairer Internal Medicine 10/15/17 Daniel Paez DO [address] [place] [address] Family Medicine 01/01/[address] [place] [address] Registered Dietitian Nutrition 01/09/24 Lubrication Servicer Relationship Specialty Start Date End Date Keren Dumont MD [address] [place] [address] PCP - General Internal Medicine 01/01/24 Sowmya Chin [address] [place], [place] 7328524 Specialty Bridge Repairer Internal Medicine 10/15/17 Daniel Paez DO [address] [place] [address] Family Medicine 01/01/[address] [place], [place] 1162595 Registered Dietitian Nutrition 01/09/24 Lubrication Servicer Relationship Specialty Start Date End Date Keren Dumont MD [address] [facility] [place]ran [place], [place] 787761 PCP - General Internal Medicine 01/01/24 [facility] [place] [address] [place], [place] 4343724 Specialty Bridge Repairer Internal Medicine 10/15/17 Daniel Paez DO [address] [place] [address] Family Medicine 01/01/[address] [place], [place] 8500595 Registered Dietitian Nutrition 01/09/24 Lubrication Servicer Relationship Specialty Start Date End Date Keren Dumont MD [address] [place] [address] PCP - General Internal Medicine 01/01/[address] [facility] [address] [place], [place] 3001524 Specialty Bridge Repairer Internal Medicine 10/15/17 Daniel Paez DO [address] [place] [address] Family Medicine 01/01/[address] [place] [address] Registered Dietitian Nutrition 01/09/24 Aixa Ramirez MD [address] [place] [address] Primary Staff Physician Cardiology 06/16/24 Lubrication Servicer Relationship Specialty Start Date End Date Keren Dumont MD [address] [place], [place] 627901 PCP - General Internal Medicine 01/01/24 Sowmya Chin [address] [place] [address] Specialty Bridge Repairer Internal Medicine 10/15/17 Daniel Paez DO [address] [place] [address] Family Medicine 01/01/[address] [place] [address] Registered Dietitian Nutrition 01/09/24 Aixa Ramirez MD [address] [place] [address] Primary Staff Physician Cardiology 06/16/24 Lubrication Servicer Relationship Specialty Start Date End Date Keren Dumont MD [address] [place] [place], [place] 557081 PCP - General Internal Medicine 01/01/24 Sowmya Chin [address] [place] [address] Specialty Bridge Repairer Internal Medicine 10/15/17 Daniel Paez DO [address] [place], [place] 4612895 Family Medicine 01/01/[address] [place] [place], [place] 9896095 Registered Dietitian Nutrition 01/09/24 Aixa Ramirez MD [address] [place], [place] 5422395 Primary Staff Physician Cardiology 06/16/24 Lubrication Servicer Relationship Specialty Start Date End Date Keren Dumont MD [address] [facility] [place] [address] PCP - General Internal Medicine 01/01/24 Sowmya Chin [address] [place] [address] Specialty Bridge Repairer Internal Medicine 10/15/17 Daniel Paez DO [address] [place], [place] 1672595 Family Medicine 01/01/[address] [place] [address] Registered Dietitian Nutrition 01/09/24 Aixa Ramirez MD [address] [place] [address] Primary Staff Physician Cardiology 06/16/24 Lubrication Servicer Relationship Specialty Start Date End Date Keren Dumont MD [address] [facility] ANDRIY Khalil [place], [place] 530[address] PCP - General Internal Medicine 01/01/24 [facility] [address] [place] [address] Specialty Bridge Repairer Internal Medicine 10/15/17 Daniel Paez DO [address] [place], [place] 8436695 Family Medicine 01/01/[address] [place] [address] Registered Dietitian Nutrition 01/09/24 Aixa Ramirez MD [address] [place] [address] Primary Staff Physician Cardiology 06/16/24 Lubrication Servicer Relationship Specialty Start Date End Date Keren Dumont MD [address] [place] [address] PCP - General Internal Medicine 01/01/24 [facility] Sowmya, [address] [place] [address] Specialty Bridge Repairer Internal Medicine 10/15/17 Daniel Paez DO [address] [place] [address] Family Medicine 01/01/[address] [facility] [place] [place] 0737095 Registered Dietitian Nutrition 01/09/24 Aixa Ramirez MD [address] [place] [address] Primary Staff Physician Cardiology 06/16/24 Lubrication Servicer Relationship Specialty Start Date End Date Keren Dumont MD [address] [place] [address] PCP - General Internal Medicine 01/01/24 Sowmya Chin DO [address] [place] [address] Specialty Bridge Repairer Internal Medicine 10/15/17 Daniel Paez DO [address] [place], [place] 3075395 Family Medicine 01/01/[address] [place], [place] 7228495 Registered Dietitian Nutrition 01/09/24 Aixa Ramirez MD [address] [place] [address] Primary Staff Physician Cardiology 06/16/24 Team Status: Active Member Role/Relationship Status Dates LILLY LIVINGSTON Family Provider Active Dr. Keren Dumont MD Primary Care Provider Active Team Status: Inactive Member Role/Relationship Status Dates Dr. Keren Dumont MD Primary Care Provider Active Start: March 20, 2025 End: March 20, 2025 Chela Lynn BOAT RENTAL CLERK, BOAT RENTAL CLERK-C Attending Provider Active Start: March 20, 2025 End: March 20, 2025 Chela Lynn NP, BOAT RENTAL CLERK-C Referring Provider Active Start: March 20, 2025 End: March 20, 2025 Team Status: Inactive Member Role/Relationship Status Dates Dr. Keren Dumont MD Primary Care Provider Active Start: April 10, 2025 End: April 10, 2025 Chela Lynn NP, NP-C Attending Provider Active Start: April 10, 2025 End: April 10, 2025 Chela Lynn NP, NP-C Referring Provider Active Start: April 10, 2025 End: April 10, 2025 Team Status: Inactive Member Role/Relationship Status Dates Dr. Keren Dumont MD Primary Care Provider Active Start: April 27, 2025 End: April 27, 2025 DASHA Aguayo NP Attending Provider Active Start: April 27, 2025 End: April 27, 2025 Chela Lynn NP, NP-Mic Referring Provider Active Start: April 27, 2025 End: April 27, 2025 FOR RECORDS PERTAINING TO PATIENTS WHO ARE OR HAVE BEEN ENROLLED IN A CHEMICAL DEPENDENCY/SUBSTANCEABUSE PROGRAM, SOME INFORMATION MAY BE OMITTED. This clinical summary was aggregated from multiple sources. Caution should be exercised in using it in the provision of clinical care. This summary normalizes information from multiple sources, and as a consequence, information in this document may materially change the coding, format and clinical context of patient data. In addition, data may be omitted in some cases. CLINICAL DECISIONS SHOULD BE BASED ON THE PRIMARY CLINICAL RECORDS. [employer] provides no warranty or guarantee of the accuracy or completeness of information in this document.
== END | disposition home or self-care (01) ==
LOC: LABSPEC 17:00
PROVIDERS: PCP Internal Medicine; Referring Provider Nurse Practitioner Family; Visit Provider Nurse Practitioner Family
DX: M62.81 Muscle weakness (generalized) (principal); G12.20 Motor neuron disease, unspecified; M25.561 Pain in right knee; A44.0 Systemic bartonellosis; A68.1 Tick-borne relapsing fever; G90.89 Other disorders of autonomic nervous system; B60.09 Other babesiosis; R47.1 Dysarthria and anarthria; R53.82 Chronic fatigue, unspecified; R29.818 Other symptoms and signs involving the nervous system; Z77.120 Contact with and (suspected) exposure to mold (toxic)

== ENCOUNTER → 2025-07-02 | Outpatient (CLI) | payer MEDICARE, SELFPAY ==
[2025-07-09 15:08] LABS: Immunoglobulin A 63 mg/dL (64-422); Immunoglobulin G 510 mg/dL (586-1602); Immunoglobulin M 22 mg/dL (26-217)
[2025-07-10 11:08] LABS: Arsenic 7245 3 ug/L (0-9); Lead, Blood < 1.0 ug/dL (0.0-3.4); Mercury, Blood 85324 < 1.0 ug/L (0.0-14.9)
== END | disposition home or self-care (01) ==
LOC: LABSPEC 15:19
PROVIDERS: PCP Internal Medicine; Referring Provider Nurse Practitioner Family; Visit Provider Nurse Practitioner Family
DX: M62.81 Muscle weakness (generalized) (principal); G12.20 Motor neuron disease, unspecified; R47.1 Dysarthria and anarthria; A44.0 Systemic bartonellosis; A68.1 Tick-borne relapsing fever; R53.82 Chronic fatigue, unspecified; M25.561 Pain in right knee; G90.89 Other disorders of autonomic nervous system; R29.818 Other symptoms and signs involving the nervous system; Z77.120 Contact with and (suspected) exposure to mold (toxic); I89.0 Lymphedema, not elsewhere classified; B60.09 Other babesiosis
CPT/HCPCS: 82784; 82785; 82787

== ENCOUNTER → 2025-07-15 | Outpatient (CLI) | payer MEDICARE, SELFPAY | END | disposition home or self-care (01) | PROVIDERS: PCP Internal Medicine; Visit Provider Nurse Practitioner Family | DX: M62.81 Muscle weakness (generalized) (principal); G12.20 Motor neuron disease, unspecified; R47.1 Dysarthria and anarthria; A44.0 Systemic bartonellosis; A68.1 Tick-borne relapsing fever; R53.82 Chronic fatigue, unspecified; M25.561 Pain in right knee; G90.89 Other disorders of autonomic nervous system; R29.818 Other symptoms and signs involving the nervous system; I89.0 Lymphedema, not elsewhere classified; B60.09 Other babesiosis; Z77.120 Contact with and (suspected) exposure to mold (toxic) ==